=== PATIENT | male | born 1955 | race Caucasian/White ===

== ENCOUNTER 2017-09-28 05:32 | Outpatient (CLI) | payer OTHER ==
[~2017-09-28] VITALS: Ht 167.6 cm; Wt 99.8 kg
[~2017-09-28 05:32] MED LIST: AMLO2.5T PO; ASPI-586 PO; CIPR500T4 PO; CYCL10TA9 PO; FEXO-104 PO; GABA-488 PO; GARL400T13 PO; OMEG1CAP51 PO; OXYC-12 PO; PHEN-639 PO; QUIN1TAB17 PO; SILV25CR TP; SULF1TAB35 PO; TAMS0.4C2 PO; VITA1CAP59 PO; VITA1TAB16 PO; [UNRECOGNIZED DRUG - OTHER] PO
[2017-09-28] MEDS ORDERED: MELO15TA39 PO (16:22)
[2017-09-28] MEDS ORDERED: OMEG1CAP57 PO (16:22)
[2017-09-28] MEDS ORDERED: CHOL500049 PO (16:22)
[2017-09-28] MEDS ORDERED: FENO134C PO (16:22)
[2017-09-28] MEDS ORDERED: QUIN20TA16 PO (16:22)
[2017-09-28] MEDS ORDERED: GARL400T5 PO (16:22)
== END 2017-09-28 16:24 ==
LOC: PREOP 05:32
PROVIDERS: ATTEND Surgery
DX: Z01.818 Encounter for other preprocedural examination (principal); Z86.010 Personal history of colon polyps

== ENCOUNTER 2017-10-03 11:03 | Day surgery (SDC) | payer OTHER ==
[~2017-10-03] VITALS: Ht 167.6 cm; Wt 99.8 kg
[~2017-10-03 11:03] MED LIST changes: +CHOL500049 PO; +FENO134C PO; +GARL400T5 PO; +MELO15TA39 PO; +OMEG1CAP57 PO; +QUIN20TA16 PO
[2017-10-03 11:15] VITALS: BP 130/81
--- NOTE | 2017-10-03 12:52 | Progress Note-Pre Operative ---
Pre-Operative Progress Note H&P Reviewed The H&P was reviewed, patient examined and no changes noted. Time Seen by Provider: 12:41 Date H&P Reviewed: Oct 03, 2017 Time H&P Reviewed: 12:46 Pre-Operative Diagnosis: Screening Colonoscopy, Abdominal pain KIERAN ALCANTAR DO Oct 03, 2017 12:52
[2017-10-03] MEDS ORDERED: PROPOFOL INJECTION 50 ML IV ONE (12:56)
[2017-10-03] MEDS ORDERED: MIDAZOLAM 2 MG/2 ML (VERSED) VIAL ONE (12:56)
[2017-10-03] MEDS ORDERED: LACTATED RINGERS 1,000 ML IV ONE (13:27)
[2017-10-03] MEDS ORDERED: proPOfol 200 MG/20 ML (DIPRIVAN) VIAL IV ONE (13:48)
[2017-10-03] MEDS ORDERED: BENZOCAINE 20% SPRAY (HURRICANE) 60 ML CAN MT PRN (14:00)
--- NOTE | 2017-10-03 14:05 | Progress Note-Post Operative ---
Post-Operative Progess Note Surgeon (s)/Director Of Enterprise Strategy (s) Surgeon KIERAN ALCANTAR DO Director Of Enterprise Strategy: Michele Serrano MS III Pre-Operative Diagnosis Screening Colonoscopy, Abdominal pain Post-Operative Diagnosis Cecal Colitis Cecal Polyps Diverticula Internal hemorrhoids Procedure & Operative Findings Date of Procedure 10/03/17 Procedure Performed/Findings Colon with snare Colon with cold bx Anesthesia Type IV Sedation by MILL WASHER Estimated Blood Loss Estimated blood loss (mL): scant Specimens/Packing Specimens Removed Cecal polyp x 2 Cecal bx KIERAN ALCANTAR DO Oct 03, 2017 14:05
--- NOTE | 2017-10-03 14:07 | Endoscopy Discharge Instruct ---
Endo Procedure/Findings Findings 1.: Polyp 2.: Colitis 3.: Diverticulosis 4.: Internal Hemorrhoids Discharge Instructions - Activity: You might feel a little sleepy until tomorrow. This is due to the medicine you received to relax you. Until tomorrow, you should: NOT drive a car, operate machinery or power tools. NOT drink any alcoholic beverages. NOT make any important decisions or sign importortant papers. Do not return to work until tomorrow, unless otherwise instructed. Resume previous activities tomorrow. Diet: Start by taking liquids. If you tolerate liquids, advance to solid food. Make appointment for 1 week. Notify Physician - If you experience excessive bleeding, unusual abdominal pain, fever, or chest pain, contact your doctor immediately. Follow-Up: - I have received and understand the above instructions and will call my doctor if I have any further questions. Patient Signature Date Nurse Signature Other (Relationship) KIERAN ALCANTAR DO Oct 03, 2017 14:07
[2017-10-03 14:30] VITALS: BP 88/55
[2017-10-03 14:55] VITALS: BP 120/77
[2017-10-03 15:06] VITALS: BP 120/77
--- NOTE | 2017-10-03 23:44 | OPERATIVE REPORT ---
DATE OF SERVICE: PREOPERATIVE DIAGNOSES: Abdominal pain, screening colonoscopy. POSTOPERATIVE DIAGNOSES: 1. Colon polyps. 2. Colitis. 3. Diverticula. 4. Internal hemorrhoids. PROCEDURES: 1. Colonoscopy and snare polypectomy. 2. Colonoscopy with cold biopsy. SURGEON: Toby Conley DO. PHYSICIAN COMPENSATION ANALYST: Medical student, [employer]. ANESTHESIA: IV sedation by the DEMAND EQUIPMENT REPAIRER. SPECIMEN: Two polyps taken from the cecum and then biopsies of cecal inflammation, also 2 biopsies. BLOOD LOSS: Scant. FLUIDS: Per anesthesia. POSTOPERATIVE CONDITION: Stable. INDICATION FOR PROCEDURE: The patient is a 62-year-old male who has history of colon polyps. Needed screening colonoscopy, also family history of colon cancer, and in addition, he has a history of diverticulosis and he has also been having some abdominal pain. FINDINGS: The patient had 2 polyps in the cecum, also had some colitis in the cecum as well as diverticula throughout the colon including the ascending colon, transverse colon and descending colon as well as sigmoid and he had some very minimal internal hemorrhoids. PROCEDURE NOTE: After informed consent was obtained, the patient was brought to the endoscopy suite and placed and laid in the left lateral decubitus position. He was administered IV sedation. During the case, his vitals were monitored for the entire time by the DEMAND EQUIPMENT REPAIRER. The scope was inserted, pushed all the way into about 150 cm, able to get to the cecum. Took a picture of the appendiceal orifice, noted the ileocecal valve and then saw 2 polyps in the cecum. Elected to do a snare polypectomy of these and able to get them both off the cecum. Also looked a little bit red and cleared off some liquid fecal material and then still looked a little bit red, so elected to do 2 biopsies in the cecum. Once this was done, then slowly withdrew the scope insufflating to look circumferentially at the dela cruz, looking at the cecum, up the ascending colon saw a few diverticula throughout here to the hepatic flexure and then down the transverse colon, again saw another couple of diverticula to the splenic flexure and then down the descending colon into the sigmoid colon. Also saw diverticula throughout here then down into the rectum, retroflexed in the rectal vault, saw some very minimal internal hemorrhoids, may be grade I and then removed the scope. The patient tolerated the procedure and he was recovered in the endoscopy suite. Job ID: [id number] DocumentID: [id number] Dictated Date: 10/03/2017 14:12:08 Lime Puller Date: 10/03/2017 23:43:01 Dictated By: TOBY CONLEY DO
--- OUTSIDE RECORDS SUMMARY | 2017-10-04 18:49 | XMS REPORT | Clinical Summary ---
Author Author [facility] Organization [facility] Address Unknown Phone Unavailable Care Team Providers Care Trimmer Buffing Wheel Name Role Phone PCP Unavailable Source Comments Some departments are not documenting in the electronic medical record. If you do not see the information that you expected, contact Release of Information in the Health Information Management department at [phone] for further assistance in locating additional records.[facility] Allergies Not on File Current Medications Not on file Active Problems Not on file Immunizations Name Dates Previously Given Next Due DT Vaccine 03/17/2011 Social History Tobacco Use Types Packs/Day Years Used Date Never Assessed Sex Assigned at Date Recorded Not on file Last Filed Vital Signs Not on file Plan of Treatment Health Maintenance Due Date Last Done Comments HEPATITIS C SCREENING 1955 PHYSICAL (COMPREHENSIVE) 1962 EXAM PERTUSSIS VACCINE 1966 COLORECTAL CANCER 2005 SCREENING SHINGLES VACCINE 2015 INFLUENZA VACCINE 04/24/2017 TETANUS VACCINE 03/17/2021 03/17/2011 Results Not on filefrom Last 3 Months
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
== END 2017-10-03 15:00 | disposition home or self-care (01) ==
LOC: ENDO 11:03
PROVIDERS: ATTEND Surgery
DX: Z12.11 Encounter for screening for malignant neoplasm of colon (principal); D12.0 Benign neoplasm of cecum; K63.5 Polyp of colon; K52.9 Noninfective gastroenteritis and colitis, unspecified; K57.30 Diverticulosis of large intestine without perforation or abscess without bleeding; K64.8 Other hemorrhoids; Z80.0 Family history of malignant neoplasm of digestive organs; I10 Essential (primary) hypertension; Z87.891 Personal history of nicotine dependence; L29.0 Pruritus ani

== ENCOUNTER → 2017-12-03 | Outpatient (CLI) | payer OTHER | LOC: CARD 11:24 | PROVIDERS: ATTEND Nurse Practitioner Family | DX: R07.9 Chest pain, unspecified (principal) | CPT/HCPCS: 93005 ==

== ENCOUNTER → 2018-02-12 | Outpatient (CLI) | payer OTHER ==
--- NOTE | 2018-02-12 16:22 | Diagnostic Imaging Report ---
INDICATION: Pain on the medial aspect of the right knee. TIME OF EXAMINATION: 4:26 PM. TECHNIQUE: Three views of the right knee were obtained. FINDINGS: There is mild medial compartmental joint space narrowing. The articular surfaces are smooth. The lateral and patellofemoral compartments are intact. No fracture, dislocation, or effusion is detected. IMPRESSION: Mild medial compartmental degenerative change. Dictated by: Dictated on workstation # [id number]
== END ==
LOC: RAD 15:54
PROVIDERS: ATTEND Nurse Practitioner Family
DX: M17.11 Unilateral primary osteoarthritis, right knee (principal)
CPT/HCPCS: 73562

== ENCOUNTER → 2018-10-21 | Outpatient (CLI) | payer OTHER ==
--- NOTE | 2018-10-21 11:24 | Diagnostic Imaging Report ---
CT low-dose lung cancer screening. INDICATION: 36-year smoking history. Routine images using the low-dose lung cancer screening protocol were utilized. The previous CT chest exam of 02/07/2010 fail to show any sign of an acute cardiopulmonary abnormality or of a parenchymal lung nodule. On this exam, there is a 2.6 MM noncalcified nodule in the right midlung anteriorly (image 124 of 206). In retrospect this may have been present on the prior exam (image 31 of 70). There is also a roughly 3 CM calcified granuloma in the left lung base. This was not evident on the previous exam. This finding has a generally benign appearance. No other parenchymal mass is identified. There is no sign of failure, pneumonia or pleural effusion to indicate an acute abnormality. The heart size is within normal limits. There are coronary artery calcifications evident. The aorta is not abnormally dilated. There is no obvious mediastinal or hilar adenopathy. The sections through the upper abdomen fail to show any sign of acute abnormality. The previous exam did note a 1.8 x 1.0 CM nodule associated with the left adrenal gland. That finding is again visualized and does not appear to have changed significantly. The bone windows show no sign of fracture or destructive lesion. There are prominent osteophytes along the ventral aspect of the lower thoracic spine. IMPRESSION: 1. There is a small noncalcified nodule in the right upper lobe. This is of uncertain etiology although most likely benign. A followup low-dose lung cancer screening exam in one year would be recommended for continued evaluation. 2. There is no other mass identified and there is no sign of an acute cardiopulmonary abnormality. 3. There is coronary artery disease. 4. The left adrenal nodule seen previously appear stable and is most likely benign. 2A - Benign appearance or behavior. Solid nodule(s): <6mm OR new <4mm. Continue annual screening with LDCT in 12 months. Dictated by: Dictated on workstation # [id number]
== END ==
LOC: RAD 09:29
PROVIDERS: ATTEND Nurse Practitioner Family
DX: Z12.2 Encounter for screening for malignant neoplasm of respiratory organs (principal); I25.10 Atherosclerotic heart disease of native coronary artery without angina pectoris; E27.8 Other specified disorders of adrenal gland; R91.1 Solitary pulmonary nodule; Z87.891 Personal history of nicotine dependence

== ENCOUNTER → 2018-12-18 | Outpatient (CLI) | payer OTHER ==
[~2018-12-18] VITALS: Ht 167.6 cm; Wt 99.8 kg
[~2018-12-18] MED LIST changes: +ACET325T38 PO; +CHOL200014 PO; +GARL400T14 PO; -GARL400T5 PO; +GBPN600T PO; +PANT40TA3 PO; +QUIN40TA14 PO; +TAMS0.4C98 PO; +TRAM50TA2 PO
== END | disposition home or self-care (01) ==
LOC: PREOP 12-16 06:13
PROVIDERS: ATTEND Surgery
DX: Z01.818 Encounter for other preprocedural examination (principal)

== ENCOUNTER 2018-12-23 09:28 | Day surgery (SDC) | payer OTHER ==
[~2018-12-23] VITALS: Ht 167.6 cm; Wt 99.8 kg
--- OUTSIDE RECORDS SUMMARY | 2018-12-23 09:32 | XMS REPORT | Clinical Summary ---
Author Author [facility] Organization [facility] Address Unknown Phone Unavailable Care Team Providers Care Mercantile Reporter Name Role Phone Meghan Nance DO PCP Source Comments Some departments are not documenting in the electronic medical record. If you do not see the information that you expected, contact Release of Information in the Health Information Management department at [phone] for further assistance in locating additional records.[facility] Allergies Not on File Medications Not on file Active Problems Not on file Immunizations Name Dates Previously Given Next Due DT Vaccine 03/17/2011 Social History Date Tobacco Use Types Packs/Day Years Used Never Assessed Sex Assigned at Date Recorded Not on file Industry Job Start Date Occupation Not on file Not on file Not on file Travel End Travel History Travel Start No recent travel history available. Last Filed Vital Signs Not on file Plan of Treatment Health Maintenance Due Date Last Done Comments HEPATITIS C SCREENING 1955 PHYSICAL (COMPREHENSIVE) 1962 EXAM HIV SCREENING 1970 COLORECTAL CANCER 2005 SCREENING SHINGLES RECOMBINANT 2005 VACCINE (1 of 2) INFLUENZA VACCINE 04/24/2018 DTAP/TDAP VACCINES (2 - 03/17/2021 03/17/2011 Tdap) Results Not on filefrom Last 3 Months
--- OUTSIDE RECORDS SUMMARY | 2018-12-23 09:35 | XMS REPORT | Continuity of Care Document ---
Author Author [facility] Organization [facility] Address Unknown Phone Unavailable Allergies Active Description Code Type Severity Reaction Onset Reported/Identified Relationship to Patient Clinical Status Yes Penicillins [id number] Drug Allergy Unknown N/A 12/17/2018 Medications There is no data. Problems Date Dx Coded Attending Type Code Diagnosis Diagnosed By 02/11/2010 Ot 401.9 HYPERTENSION NOS 02/11/2010 Ot 550.90 UNILAT INGUINAL HERNIA 02/11/2010 Ot 571.8 CHRONIC LIVER DIS NEC 02/11/2010 Ot 714.0 RHEUMATOID ARTHRITIS 02/11/2010 Ot 780.60 FEVER, UNSPECIFIED 02/11/2010 Ot 789.2 SPLENOMEGALY 03/16/2011 Ot 944.24 2 DEG BURN FINGR [...] 09/23/2014 SORTO DO, LISSETTE Ot 788.41 09/23/2014 PAULYNDER DOSAPNA S Ot 724.1 09/23/2014 HITESHER DOSAPNA S Ot 786.50 09/23/2014 Ot 272.0 09/23/2014 [...] 09/23/2014 SORTO DO, LISSETTE Ot V82.89 09/23/2014 LISSETTE SORTO DO Ot 257.2 09/23/2014 LISSETTE SORTO DO Ot 716.90 09/23/2014 LISSETTE SORTO DO Ot 788.41 09/23/2014 SAPNA LIVE DO Ot 724.1 09/23/2014 SAPNA LIVE DO Ot 786.50 09/28/2014 RAJ CARDENAS MD Ot [...] SORTO DOI Ot 272.0 PURE HYPERCHOLESTEROLEM 08/02/2016 LISSETTE SORTO DO Ot 272.1 PURE HYPERGLYCERIDEMIA 08/02/2016 LISSETTE SORTO DO Ot 401.1 BENIGN HYPERTENSION 08/02/2016 DOMINIQUE SORTO DOI Ot 571.8 CHRONIC LIVER DIS NEC 08/02/2016 LISSETTE SORTO DO Ot 715.90 OSTEOARTHROS NOS-UNSPEC 08/02/2016 LISSETTE SORTO DO Ot 790.4 ELEV TRANSAMINASE/LDH 08/02/2016 LISSETTE SORTO DO Ot V18.0 FAM HX-DIABETES MELLITUS 08/02/2016 LISSETTE SORTO DO Ot V82.89 SCREEN FOR OTH SPECIF CONDITIONS 08/02/2016 LISSETTE SORTO DO Ot 257.2 TESTICULAR HYPOFUNC NEC 08/02/2016 NOREEN MARIE LISSETTE Ot 716.90 ARTHROPATHY NOS-UNSPEC 08/02/2016 DOMINIQUE SORTO DOI Ot 788.41 URINARY FREQUENCY 08/02/2016 SAPNA LIVE DO Ot 724.1 PAIN IN THORACIC SPINE 08/02/2016 SAPNA LIVE DO Ot 786.50 CHEST PAIN NOS 08/03/2016 Ot 571.8 CHRONIC LIVER DIS NEC 08/03/2016 Ot 789.04 ABDOMINAL PAIN, LEFT LOWER QUADRANT 08/03/2016 Ot V72.84 EXAM PRE- OPERATIVE NOS 08/03/2016 LISSETTE SORTO DO Ot 227.0 BENIGN NEOPLASM ADRENAL 08/03/2016 LISSETTE SORTO DO Ot 272.0 PURE HYPERCHOLESTEROLEM 08/03/2016 LISSETTE SORTO DO Ot 272.1 PURE HYPERGLYCERIDEMIA 08/03/2016 DOMINIQUE SORTO DOI Ot 401.1 BENIGN HYPERTENSION 08/03/2016 LISSETTE SORTO DO Ot 571.8 CHRONIC LIVER DIS NEC 08/03/2016 LISSETTE SORTO DO Ot 715.90 OSTEOARTHROS NOS-UNSPEC 08/03/2016 LISSETTE SORTO DO Ot 790.4 ELEV TRANSAMINASE/LDH 08/03/2016 LISSETTE SORTO DO Ot V18.0 FAM HX-DIABETES MELLITUS 08/03/2016 LISSETTE SORTO DO Ot V82.89 SCREEN FOR OTH SPECIF CONDITIONS 08/03/2016 LISSETTE SORTO DO Ot 257.2 TESTICULAR HYPOFUNC NEC 08/03/2016 LISSETTE SORTO DO Ot 716.90 ARTHROPATHY NOS-UNSPEC 08/03/2016 LISSETTE SORTO DO Ot 788.41 URINARY FREQUENCY 08/03/2016 SAPNA LIVE DO Ot 724.1 PAIN IN THORACIC SPINE 08/03/2016 SAPNA LIVE DO Ot 786.50 CHEST PAIN NOS 08/03/2016 SAPNA LIVE DO Ot E27.9 DISORDER OF ADRENAL GLAND, UNSPECIFIED 09/28/2017 KIERAN ALCANTAR DO Ot Z01.818 ENCOUNTER FOR OTHER PREPROCEDURAL EXAMIN 09/28/2017 KIERAN ALCANTAR DO Ot Z86.010 PERSONAL HISTORY OF COLONIC POLYPS 10/01/2017 KIERAN ALCANTAR DO Ot Z01.818 ENCOUNTER FOR OTHER PREPROCEDURAL EXAMIN 10/01/2017 KIERAN ALCANTAR DO Ot Z86.010 PERSONAL HISTORY OF COLONIC POLYPS 10/03/2017 KIERAN ALCANTAR DO Ot D12.0 BENIGN NEOPLASM OF CECUM 10/03/2017 DELMAN DO, KIERAN B Ot I10 ESSENTIAL (PRIMARY) HYPERTENSION 10/03/2017 ORTIZ MARIE KIERAN B Ot K52.9 NONINFECTIVE GASTROENTERITIS AND COLITIS 10/03/2017 ORTIZ MARIE KIERAN B Ot K57.30 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 AB 10/03/2017 ORTIZ MARIE KIERAN B Ot K63.5 POLYP OF COLON 10/03/2017 ORTIZ MARIE KIERAN B Ot K64.8 OTHER HEMORRHOIDS 10/03/2017 ORTIZ MARIE KIERAN B Ot L29.0 PRURITUS ANI 10/03/2017 ORTIZ MARIE KIERAN B Ot Z12.11 ENCOUNTER FOR SCREENING FOR MALIGNANT NE 10/03/2017 ORTIZ MARIE KIERAN B Ot Z80.0 FAMILY HISTORY OF MALIGNANT NEOPLASM OF 10/03/2017 EDVIN ALCANTAR DOIC B Ot Z87.891 PERSONAL HISTORY OF NICOTINE DEPENDENCE 10/08/2017 ORTIZ MARIE KIERAN B Ot D12.0 BENIGN NEOPLASM OF CECUM 10/08/2017 ORTIZ MARIE KIERAN B Ot I10 ESSENTIAL (PRIMARY) HYPERTENSION 10/08/2017 ORTIZ MARIE KIERAN B Ot K52.9 NONINFECTIVE GASTROENTERITIS AND COLITIS 10/08/2017 ORTIZ MARIE KIERAN B Ot K57.30 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 AB 10/08/2017 EDVIN ALCANTAR DOIC B Ot K63.5 POLYP OF COLON 10/08/2017 ORTIZ MARIE KIERAN B Ot K64.8 OTHER HEMORRHOIDS 10/08/2017 ORTIZ MARIE KIERAN B Ot L29.0 PRURITUS ANI 10/08/2017 ORTIZ MARIE KIERAN B Ot Z12.11 ENCOUNTER FOR SCREENING FOR MALIGNANT NE 10/08/2017 ORTIZ MARIE KIERAN B Ot Z80.0 FAMILY HISTORY OF MALIGNANT NEOPLASM OF 10/08/2017 ORTIZ MARIE KIERAN B Ot Z87.891 PERSONAL HISTORY OF NICOTINE DEPENDENCE 10/09/2017 ORTIZ MARIE KIERAN B Ot D12.0 BENIGN NEOPLASM OF CECUM 10/09/2017 ORTIZ MARIE KIERAN B Ot I10 ESSENTIAL (PRIMARY) HYPERTENSION 10/09/2017 ORTIZ DO KIERAN B Ot K52.9 NONINFECTIVE GASTROENTERITIS AND COLITIS 10/09/2017 ORTIZ MARIE KIERAN B Ot K57.30 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 AB 10/09/2017 ORTIZ KIERAN MARIE Ot K63.5 POLYP OF COLON 10/09/2017 REILLYJOAQUINA KIERAN MARIE Ot K64.8 OTHER HEMORRHOIDS 10/09/2017 ORTIZ KIERAN MARIE Ot L29.0 PRURITUS ANI 10/09/2017 ORTIZ MARIEKIERAN Ot Z12.11 ENCOUNTER FOR SCREENING FOR MALIGNANT NE 10/09/2017 ORTIZ KIERAN MARIE Ot Z80.0 FAMILY HISTORY OF MALIGNANT NEOPLASM OF 10/09/2017 ORTIZ MARIEKIERAN Ot Z87.891 PERSONAL HISTORY OF NICOTINE DEPENDENCE 01/02/2018 JOSE MICHAEL TRENCH DIGGING MACHINE OPERATOR Ot R07.9 CHEST PAIN, UNSPECIFIED 02/13/2018 JOSE MICHAEL TRENCH DIGGING MACHINE OPERATOR Ot M17.11 UNILATERAL PRIMARY OSTEOARTHRITIS, RIGHT 02/13/2018 JOSE MICHAEL TRENCH DIGGING MACHINE OPERATOR Ot M17.11 UNILATERAL PRIMARY OSTEOARTHRITIS, RIGHT 2018 JOSE MICHAEL TRENCH DIGGING MACHINE OPERATOR Ot M17.11 UNILATERAL PRIMARY OSTEOARTHRITIS, RIGHT 03/15/2018 JOSE MICHAEL TRENCH DIGGING MACHINE OPERATOR Ot R07.9 CHEST PAIN, UNSPECIFIED 07/23/2018 Ot 789.00 07/23/2018 Ot 790.4 07/23/2018 Ot 246.9 07/23/2018 Ot 255.9 07/23/2018 Ot 289.0 07/23/2018 Ot 571.8 07/23/2018 Ot 608.89 07/23/2018 Ot 272.0 PURE HYPERCHOLESTEROLEM 07/23/2018 Ot 401.1 BENIGN HYPERTENSION 07/23/2018 Ot 790.6 ABN BLOOD CHEMISTRY NEC 07/23/2018 Ot V18.0 FAM HX- DIABETES MELLITUS 07/23/2018 Ot 550.90 UNILAT INGUINAL HERNIA 07/23/2018 Ot V72.83 EXAM PRE- OPERATIVE NEC 07/23/2018 Ot V74.8 SCREEN- BACTERIAL DIS NEC 07/23/2018 Ot 550.90 UNILAT INGUINAL HERNIA 07/23/2018 Ot 272.0 PURE HYPERCHOLESTEROLEM 07/23/2018 Ot 790.29 OTHER ABNORMAL GLUCOSE 07/23/2018 Ot 794.5 ABN THYROID FUNCT STUDY 07/23/2018 Ot 571.8 CHRONIC LIVER DIS NEC 07/23/2018 Ot 789.04 ABDOMINAL PAIN, LEFT LOWER QUADRANT 07/23/2018 SORTO DO, LISSETTE Ot 227.0 BENIGN NEOPLASM ADRENAL 07/23/2018 SORTO DO, LISSETTE Ot 272.0 PURE HYPERCHOLESTEROLEM 07/23/2018 SORTO DO, LISSETTE Ot 272.1 PURE HYPERGLYCERIDEMIA 07/23/2018 SORTO DO, LISSETTE Ot 401.1 BENIGN HYPERTENSION 07/23/2018 SORTO DO, LISSETTE Ot 571.8 CHRONIC LIVER DIS NEC 07/23/2018 SORTO DO, LISSETTE Ot 715.90 OSTEOARTHROS NOS-UNSPEC 07/23/2018 SORTO DO, LISSETTE Ot 790.4 ELEV TRANSAMINASE/LDH 07/23/2018 SORTO DO, LISSETTE Ot V18.0 FAM HX-DIABETES MELLITUS 07/23/2018 SORTO DO, LISSETTE Ot V82.89 SCREEN FOR OTH SPECIF CONDITIONS 07/23/2018 SORTO DO, LISSETTE Ot 257.2 TESTICULAR HYPOFUNC NEC 07/23/2018 SORTO DO, LISSETTE Ot 716.90 ARTHROPATHY NOS-UNSPEC 07/23/2018 NOREEN MARIE, LISSETTE Ot 788.41 URINARY FREQUENCY 07/23/2018 SAPNA LIVE DO S Ot 724.1 PAIN IN THORACIC SPINE 07/23/2018 SAPNA LIVE DO S Ot 786.50 CHEST PAIN NOS 07/23/2018 SAPNA LIVE DO S Ot E27.9 DISORDER OF ADRENAL GLAND, UNSPECIFIED 07/23/2018 ALEC, JOSE R TRENCH DIGGING MACHINE OPERATOR Ot R07.9 CHEST PAIN, UNSPECIFIED 07/23/2018 ALEC, JOSE R TRENCH DIGGING MACHINE OPERATOR Ot M17.11 UNILATERAL PRIMARY OSTEOARTHRITIS, RIGHT 10/10/2018 ALEC, JOSE R TRENCH DIGGING MACHINE OPERATOR Ot R07.9 CHEST PAIN, UNSPECIFIED 10/10/2018 ALEC, JOSE R TRENCH DIGGING MACHINE OPERATOR Ot M17.11 UNILATERAL PRIMARY OSTEOARTHRITIS, RIGHT 10/17/2018 ALEC, JOSE R TRENCH DIGGING MACHINE OPERATOR Ot R07.9 CHEST PAIN, UNSPECIFIED 10/17/2018 ALEC, JOSE R TRENCH DIGGING MACHINE OPERATOR Ot M17.11 UNILATERAL PRIMARY OSTEOARTHRITIS, RIGHT 10/22/2018 ALEC, JOSE R TRENCH DIGGING MACHINE OPERATOR Ot E27.8 OTHER SPECIFIED DISORDERS OF ADRENAL GLA 10/22/2018 ALEC, JOSE R TRENCH DIGGING MACHINE OPERATOR Ot I25.10 ATHSCL HEART DISEASE OF [place] CORONARY 10/22/2018 PETER MICHAELON R TRENCH DIGGING MACHINE OPERATOR Ot R91.1 SOLITARY PULMONARY NODULE 10/22/2018 JOSE MICHAEL TRENCH DIGGING MACHINE OPERATOR Ot Z12.2 ENCNTR SCREEN FOR MALIGNANT NEOPLASM OF 10/22/2018 JOSE MICHAEL R TRENCH DIGGING MACHINE OPERATOR Ot Z87.891 PERSONAL HISTORY OF NICOTINE DEPENDENCE 11/13/2018 PETER MICHAELON R TRENCH DIGGING MACHINE OPERATOR Ot E27.8 OTHER SPECIFIED DISORDERS OF ADRENAL GLA 11/13/2018 JOSE MICHAEL R TRENCH DIGGING MACHINE OPERATOR Ot I25.10 ATHSCL HEART DISEASE OF [place] CORONARY 11/13/2018 JOSE MICHAEL R TRENCH DIGGING MACHINE OPERATOR Ot R91.1 SOLITARY PULMONARY NODULE 11/13/2018 JOSE MICHAEL TRENCH DIGGING MACHINE OPERATOR Ot Z12.2 ENCNTR SCREEN FOR MALIGNANT NEOPLASM OF 11/13/2018 PETER MICHAELON R TRENCH DIGGING MACHINE OPERATOR Ot Z87.891 PERSONAL HISTORY OF NICOTINE DEPENDENCE 12/17/2018 KIERAN ALCANTAR DO Ot Z01.818 ENCOUNTER FOR OTHER PREPROCEDURAL EXAMIN 12/17/2018 KIERAN ALCANTAR DO Ot Z01.818 ENCOUNTER FOR OTHER PREPROCEDURAL EXAMIN 12/17/2018 KIERAN ALCANTAR DO Ot Z01.818 ENCOUNTER FOR OTHER PREPROCEDURAL EXAMIN 12/20/2018 KIERAN ALCANTAR DO Ot Z01.818 ENCOUNTER FOR OTHER PREPROCEDURAL EXAMIN Procedures Code Description Performed By Performed On 33.24 ENDOSCOPIC BRONCHIAL BX 02/10/2010 Results Test Result Range Lab Card - 06/25/18 16:24 LabCard Specimen submitted to [facility] for Testing. Encounters ACCT No. Visit Date/Time Discharge Status Pt. Type Provider Facility Loc./Unit Complaint [id number] 12/18/2018 14:00:00 12/18/2018 23:59:59 [facility] Outpatient KIERAN ALCANTAR DO [facility] PREOP EGD [id number] 10/21/2018 09:29:00 10/21/2018 23:59:59 CLS Outpatient ALEC JOSESILVINO Helm APRN [facility] RAD SCREENING [id number] 02/12/2018 15:54:00 02/12/2018 23:59:59 CLS Outpatient JOSE MICHAEL TRENCH DIGGING MACHINE OPERATOR [facility] RAD RIGHT KNEE PAIN [id number] 12/03/2017 11:24:00 12/03/2017 23:59:59 CLS Outpatient JOSE MICHAEL TRENCH DIGGING MACHINE OPERATOR [facility] CARD CHEST PAIN [id number] 10/03/2017 11:03:00 10/03/2017 15:00:00 DIS Outpatient KIERAN ALCANTAR DO [facility] ENDO HX OF DIVERTICULITIS, HX COLON POLYPS, HX FM COLON [id number] 09/28/2017 05:32:00 09/28/2017 16:24:00 DIS Outpatient KIERAN ALCANTAR DO [facility] PREOP COLONOSCOPY/EGD [id number] 08/02/2016 13:15:00 08/02/2016 23:59:59 CLS Outpatient SAPNA LIVE DO [facility] RAD LT ADRENAL MASS F/ U [id number] 11/07/2015 14:58:00 11/07/2015 17:14:00 DIS Emergency UDAY VERÓNICA Resendez [facility] ER DIFFICULTY URINATING [id number] 09/28/2014 12:25:00 09/28/2014 15:57:00 DIS Outpatient RAJ CARDENAS MD [facility] CARD THORACIC SPONDYLOSIS [id number] 08/13/2014 14:53:00 08/13/2014 23:59:59 CLS Outpatient SAPNA LIVE DO S [facility] RAD PAIN RIBS/LUNG [id number] 07/08/2014 16:52:00 07/08/2014 23:59:59 CLS Outpatient SAPNA LIVE DO S [facility] RAD THORAIC BACK PAIN [id number] 01/17/2014 08:46:00 01/17/2014 23:59:59 CLS Outpatient LISSETTE SORTO DO [facility] LAB URINARY FREQUENCY TESTOSTERONE DEFICIENCY ARTHRITI [id number] 01/10/2014 08:49:00 01/10/2014 23:59:59 CLS Outpatient LISSETTE SORTO DO [facility] LAB OSTEOARTHRITIS BENIGN NEOPLASM OF ADRENAL GLAND [id number] 12/23/2018 10:00:00 PEN Preadmit KIERAN ALCANTAR DO [facility] ENDO CHRONIC GASTRITIS [id number] 07/23/2018 01:19:00 Document Registration [id number] 12/19/2012 06:46:00 Document Registration [id number] 12/18/2012 08:10:00 Document Registration [id number] 12/09/2012 15:00:00 Document Registration [id number] 03/16/2011 19:01:00 Document Registration [id number] 05/11/2010 14:56:00 Document Registration [id number] 03/04/2010 05:38:00 Document Registration [id number] 03/01/2010 14:53:00 Document Registration [id number] 02/07/2010 15:12:00 Document Registration [id number] 02/01/2010 14:54:00 Document Registration [id number] 12/18/2008 15:00:00 Document Registration [id number] 01/09/2008 06:36:00 Document Registration [id number] 06/19/2007 13:23:00 Document Registration 03/14/16 12/18/2018 23:12:12 12/18/2018 23:59:59 CLS Outpatient Sapna Live [id number] 09/28/2014 12:28:08 ACT Document Registration [id number] 06/25/2018 16:12:00 06/25/2018 23:59:00 DIS Outpatient Sapna Live
[2018-12-23] MEDS ORDERED: LACTATED RINGERS 1,000 ML IV ONE ×3 (09:38→11:45)
[2018-12-23] MEDS ORDERED: LACTATED RINGERS 1,000 ML IV STA (09:38)
[2018-12-23 09:45] VITALS: BP 134/88
[2018-12-23] MEDS ORDERED: HURRICAINE EXT TUBE (BENZOCAINE) XX PRN (09:45)
--- NOTE | 2018-12-23 10:17 | Progress Note-Pre Operative ---
Pre-Operative Progress Note H&P Reviewed The H&P was reviewed, patient examined and no changes noted. Time Seen by Provider: 10:13 Date H&P Reviewed: Dec 23, 2018 Time H&P Reviewed: 10:14 Pre-Operative Diagnosis: Chronic Gastritis KIERAN ALCANTAR DO Dec 23, 2018 10:16
[2018-12-23] MEDS ORDERED: MIDAZOLAM 2 MG/2 ML (VERSED) VIAL ONE (10:55)
[2018-12-23] MEDS ORDERED: proPOfol 200 MG/20 ML (DIPRIVAN) VIAL IV ONE (10:55)
[2018-12-23 11:30] VITALS: BP 113/78
[2018-12-23 12:00] VITALS: BP 126/77
--- NOTE | 2018-12-23 12:15 | Progress Note-Post Operative ---
Post-Operative Progess Note Surgeon (s)/Puppet Developer (s) Surgeon KIERAN ALCANTAR DO Puppet Developer: none Pre-Operative Diagnosis Chronic Gastritis Post-Operative Diagnosis Same Hiatal Hernia Procedure & Operative Findings Date of Procedure 12/23/18 Procedure Performed/Findings EGD with bx Anesthesia Type IV sedation by RECORDER HELPER SEISMOGRAPH Estimated Blood Loss Estimated blood loss (mL): scant Specimens/Packing Specimens Removed Antral bx body of stomach bx KIERAN ALCANTAR DO Dec 23, 2018 12:15
--- NOTE | 2018-12-23 13:02 | Endoscopy Discharge Instruct ---
Endo Procedure/Findings Findings 1.: Gastritis Discharge Instructions - Activity: You might feel a little sleepy until tomorrow. This is due to the medicine you received to relax you. Until tomorrow, you should: NOT drive a car, operate machinery or power tools. NOT drink any alcoholic beverages. NOT make any important decisions or sign importortant papers. Do not return to work until tomorrow, unless otherwise instructed. Resume previous activities tomorrow. Diet: Start by taking liquids. If you tolerate liquids, advance to solid food. make an appointment for one week Instructions: 1.: EGD in 1 year Notify Physician - If you experience excessive bleeding, unusual abdominal pain, fever, or chest pain, contact your doctor immediately. Follow-Up: - I have received and understand the above instructions and will call my doctor if I have any further questions. Patient Signature Date Nurse Signature Other (Relationship) KIERAN ALCANTAR DO Dec 23, 2018 13:02
[2018-12-23 13:15] VITALS: BP 126/77
--- NOTE | 2018-12-23 14:34 | Anesthesia-General Post-Op ---
MAC Patient Condition Mental Status/LOC: Same as Preop Cardiovascular: Satisfactory Nausea/Vomiting: Absent Respiratory: Satisfactory Pain: Controlled Complications: Absent Post Op Complications Complications None Follow Up Care/Instructions Patient Instructions None needed. Anesthesiology Discharge Order Discharge Order Patient is doing well, no complaints, stable vital signs, no apparent adverse anesthesia problems. No complications reported per nursing. ANDREI JACKSON CRNA Dec 23, 2018 14:34
--- NOTE | 2018-12-24 05:30 | OPERATIVE REPORT ---
DATE OF SERVICE: PREOPERATIVE DIAGNOSIS: Gastritis. POSTOPERATIVE DIAGNOSES: Gastritis and hiatal hernia. PROCEDURE: EGD with biopsy. SURGEON: Toby Conley DO. GEOTECHNICAL ENGINEERING TECHNICIAN: None. ANESTHESIA: IV sedation by the INFRASTRUCTURE ARCHITECT. SPECIMEN: Biopsy from the antrum. BLOOD LOSS: Scant. FLUIDS: Per anesthesia. POSTOPERATIVE CONDITION: Stable. INDICATION FOR PROCEDURE: The patient is a 63-year-old male who has been having some trouble swallowing and had some gastritis and needed a workup. FINDINGS: The patient had some mild gastritis. He had a hiatal hernia, but no other obvious pathology, no strictures in the esophagus. PROCEDURE NOTE: After informed consent was obtained, the patient was brought to the endoscopy suite, placed in the bed left lateral decubitus position. He was administered IV sedation by the INFRASTRUCTURE ARCHITECT who then monitored his vitals the entire time, heart rate, blood pressure and pulse ox and the scope was inserted down the mouth through the esophagus into the stomach. Upon entering the stomach, there was some gastritis, pushed down to the antrum, took a picture. Pushed through the small intestine, duodenum looked fine, pulled back into the antrum, did a biopsy of the antrum and then retroflexed the scope, saw hiatal hernia, took picture of this and then pulled the scope back up to the GE junction, which actually looked okay and so elected not to do a biopsy here. Rest of the esophagus looked okay. No strictures. No other ulcers. Removed the scope up the esophagus and out of the mouth. The patient tolerated the procedure. He has recovered in the endoscopy suite. Job ID: [id number] DocumentID: [id number] Dictated Date: 12/23/2018 18:41:23 Photographer News Date: 12/24/2018 05:29:43 Dictated By: TOBY CONLEY DO
== END 2018-12-23 13:15 | disposition home or self-care (01) ==
LOC: ENDO 09:28
PROVIDERS: ATTEND Surgery
DX: K29.50 Unspecified chronic gastritis without bleeding (principal); K44.9 Diaphragmatic hernia without obstruction or gangrene; K31.89 Other diseases of stomach and duodenum; I10 Essential (primary) hypertension; K21.9 Gastro-esophageal reflux disease without esophagitis; K76.0 Fatty (change of) liver, not elsewhere classified; E66.9 Obesity, unspecified; Z86.010 Personal history of colon polyps; Z87.891 Personal history of nicotine dependence; Z79.899 Other long term (current) drug therapy; Z79.82 Long term (current) use of aspirin; Z88.0 Allergy status to penicillin; Z68.35 Body mass index [BMI] 35.0-35.9, adult

== ENCOUNTER → 2019-01-29 | Outpatient (CLI) | payer OTHER ==
--- NOTE | 2019-01-29 17:37 | Diagnostic Imaging Report ---
PROCEDURE: CT abdomen and pelvis without contrast. TECHNIQUE: Multiple contiguous axial images were obtained through the abdomen and pelvis without the use of intravenous contrast. Auto Exposure Controls were utilized during the CT exam to meet ALARA standards for radiation dose reduction. INDICATION: Left lower quadrant abdominal pain. Left groin pain at the site of the prior hernia. Fever. Night sweats. COMPARISON: 08/02/2016. FINDINGS: The lung bases demonstrate atelectasis. The heart is normal in size. There is coronary atherosclerosis. No pericardial effusion is seen. There is diffuse hepatic steatosis. Cholecystectomy clips are noted. No focal hepatic lesions are seen. The spleen appears normal. The pancreas is normal. The adrenal glands are normal. The kidneys demonstrate no calculi or hydronephrosis. There is a small hiatal hernia. The appendix is normal. There is moderate stool in the colon. There is diverticulosis of the descending and sigmoid colon. There is diverticulitis at the junction of the descending and sigmoid colon. No free air or significant free fluid is seen. There are no pericolonic fluid collections seen on this noncontrast exam. There is calcific atherosclerosis. Small fat-containing inguinal hernias are present. Postsurgical changes from prior left hernia repair are noted. IMPRESSION: 1. Acute diverticulitis of the junction of the descending and sigmoid colon. No free air or pericolonic fluid collection is seen. 2. Small hiatal hernia. 3. Hepatic steatosis. 4. Small fat-containing bilateral inguinal hernias. Dictated by: Dictated on workstation # [id number]
== END ==
LOC: RAD 16:32
PROVIDERS: ATTEND Family Medicine
DX: K57.32 Diverticulitis of large intestine without perforation or abscess without bleeding (principal); K44.9 Diaphragmatic hernia without obstruction or gangrene; K76.0 Fatty (change of) liver, not elsewhere classified; K40.20 Bilateral inguinal hernia, without obstruction or gangrene, not specified as recurrent; Z98.890 Other specified postprocedural states; Z90.49 Acquired absence of other specified parts of digestive tract
CPT/HCPCS: 74176

== ENCOUNTER → 2019-02-22 | Emergency (ER) | payer OTHER ==
[~2019-02-22] VITALS: Ht 170.2 cm; Wt 97.1 kg
[~2019-02-22] MED LIST changes: +ACHD5005 PO; +CIPROFLOXACIN 500 MG (CIPRO) TABLET PO ONE; +CIPROFLOXACIN IV 400MG/200ML 200 ML IV ONE; +KETOROLAC 30 MG/ML VIAL IVP ONE; +L.AC1CAP6 PO; +METR500T PO; +NS IV 1000 ML 1,000 ML IV SCH; +ONDA4TAB11 PO; +ONDANSETRON 4 MG/2 ML (SDV) Z0FRAN IVP ONE; +RX-HYDROCODONE/APAP 5/325 MG #4 TAB PK PO PRN; +RX-ONDANSETRON 4 MG ODT (ZOFRAN) PPK #4 PO STA; +fentaNYL INJECTION 100 MCG/2 ML AMP IVP ONE; +metroNIDAZOLE 500MG/100ML IVPB 100 ML IV ONE
--- NOTE | 2019-02-22 21:43 | NUR ---
pt here with " son". pt alert gcs 15. pt been c/o abd pain since this am. relates 3 weeks ago had " inflamation in my colon". pt also c/o nausea w/o v/d and relates stool today had no blood in it. pt also c/o dyspnea " the pain". no acute sighns of dyspnea noted. lips pale no cyanosis or duskiness noted. lungs cta bilaterally. abd slightly distended bilateral lower quads. tender to palpation bilateral lower quads neg pulsating massess. pt denies chest pain but c/o nonspecific back pain. pain rating 8-9. pt instructed npo. done rozina pt [id number].
--- NOTE | 2019-02-22 22:02 | ED Abdominal Pain ---
General Stated Complaint: ABD PAIN Source of Information: Patient, Family (son) Exam Limitations: No Limitations History of Present Illness Date Seen by Provider: Feb 22, 2019 Time Seen by Provider: 21:42 Initial Comments Patient presents to ER by private conveyance with chief complaint of left lower quadrant abdominal pain starting about 10:00 this morning. He is using tramadol which he typically uses for his back pain with only modest relief of his moderate to severe pain. He has some nausea with no vomiting so far. Has not been having diarrhea or bloody stools. He had diverticulitis 2 weeks ago and was put on 2 rounds of antibiotics from the ER outpatient and significantly improved within about 5 days. He is not having any fevers or chills today. He says this feels exactly like his diverticulitis. He's had a hernia repair in his left inguinal him. He's had his gallbladder out. He's had multiple colonoscopies and EGDs with the last year he had one that was negative EGD with one polyp, the colon. His parents both had colon cancer so he started having colonoscopies at 40 years old. He is followed by Dr. Cruz. Allergies and Home Medications Allergies Coded Allergies: Penicillins (Verified Allergy, Unknown, 12/23/18) Home Medications Acetaminophen 325 Mg Tablet, 650 MG PO PRN, (Reported) Aspirin 81 Mg Tablet.dr, 81 MG PO DAILY, (Reported) Cholecalciferol (Vitamin D3) 2,000 Unit Tablet, 2,000 UNIT PO DAILY, (Reported) Ciprofloxacin HCl 500 Mg Tablet, 500 MG PO BID Prescribed by: AILIN CARDENAS on 02/22/192341 Fenofibrate,Micronized 134 Mg Capsule, 134 MG PO HS, (Reported) Gabapentin 600 Mg Tablet, 600 MG PO HS, (Reported) Hydrocodone Bit/Acetaminophen 1 Tab Tab, 1-2 EACH PO Q6H PRN for PAIN-MODERATE Prescribed by: AILIN CARDENAS on 02/22/192341 L.acidoph & Paracasei,B.lactis 1 Each Capsule, 1 EACH PO BID Prescribed by: AILIN CARDENAS on 02/22/192341 Metronidazole 500 Mg Tablet, 500 MG PO Q8H Prescribed by: AILIN CARDENAS on 02/22/192341 Ondansetron 4 Mg Tab.rapdis, 4 MG PO Q6H PRN for NAUSEA/VOMITING Prescribed by: AILIN CARDENAS on 02/22/19 3569 Pantoprazole Sodium 40 Mg Tablet.dr, 40 MG PO BID, (Reported) Quinapril HCl 40 Mg Tablet, 40 MG PO DAILY, (Reported) Tamsulosin HCl 0.4 Mg Cap, 0.8 MG PO DAILY, (Reported) Tramadol HCl 50 Mg Tablet, 50 MG PO PRN, (Reported) Patient Home Medication List Home Medication List Reviewed: Yes Review of Systems Review of Systems Constitutional: No chills, No diaphoresis EENTM: No Blurred Vision, No Double Vision Respiratory: Denies Cough, Denies Shortness of Air Cardiovascular: Denies Chest Pain, Denies Lightheadedness Gastrointestinal: See HPI, Abdominal Pain; Denies Constipated, Denies Diarrhea; Nausea Genitourinary: Denies Burning, Denies Discharge Musculoskeletal: No back pain, No joint pain Skin: No pruritus, No rash Psychiatric/Neurological: Denies Headache, Denies Numbness, Denies Paresthesia Past [id number] Hx Patient Social History Alcohol Use: Denies Use Recreational Drug Use: No Smoking Status: Never a Smoker Former Smoker, Quit: Sep 28, 1991 2nd Hand Smoke Exposure: No Recent Foreign Travel: No Contact w/Someone Who Travel: No Recent Hopitalizations: No Immunizations Up To Date Tetanus Booster (TDap): Unknown PED Vaccines UTD: No Date of Influenza Vaccine: Jul 01, 2018 Seasonal Allergies Seasonal Allergies: Yes (MILD) Past Medical History Surgeries: Yes (LT TESTICLE REMOVED/TORSION; HEMORRHOID , BROKEN HAND,LEFT INGUINAL HERNIA) Abdominal, Gallbladder, Orthopedic, Testicular Respiratory: No ("BB SIZE SPOT ON LUNG") Cardiac: Yes (cardiomegaly) Hypertension Neurological: No Reproductive Disorders: No Sexually Transmitted Disease: No Gastrointestinal: Yes (fatty liver, CHRONIC GASTRITIS) Gastroesophageal Reflux, Chronic Constipation, Diverticulosis Musculoskeletal: Yes Arthritis, Chronic Back Pain Endocrine: No HEENT: Yes (GLASSES) Loss of Vision: Bilateral Hearing Impairment: Denies 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 0.0oz. [id number]; 35.5 BMI Method:Stated General Appearance: WD/WN, mild distress HEENT: PERRL/EOMI, pharynx normal Respiratory: no respiratory distress, no accessory muscle use Cardiovascular: normal peripheral pulses, regular rate, rhythm, no edema Peripheral Pulses: 2+ Dorsalis Pedis (R), 2+ Left Dors-Pedis (L) Gastrointestinal: normal bowel sounds, soft, no organomegaly, tenderness (suprapubic and left lower quadrant) Extremities: normal range of motion, non-tender, normal inspection, no pedal edema, no calf tenderness, normal capillary refill Neurologic/Psychiatric: alert, normal mood/affect, oriented x 3 Skin: normal color, warm/dry Focused Exam Lactate Level 02/22/19 22:00: Lactic Acid Level 1.78 Lactic Acid Level Laboratory Tests Test 02/22/19 22:00 Lactic Acid Level 1.78 MMOL/L (0.50-2.00) Progress/Results/Core Measures Results/Orders Lab Results Laboratory Tests Test 02/22/19 22:00 02/22/19 22:30 Range/Units White Blood Count 9.0 4.3-11.0 10^3/uL Red Blood Count 4.53 4.35-5.85 10^6/uL Hemoglobin 14.0 13.3-17.7 G/DL Hematocrit 42 40-54 % Mean Corpuscular Volume 92 80-99 FL Mean Corpuscular Hemoglobin 31 25-34 PG Mean Corpuscular Hemoglobin Concent 34 32-36 G/DL Red Cell Distribution Width 13.3 10.0-14.5 % Platelet Count 212 130-400 10^3/uL Mean Platelet Volume 10.1 7.4-10.4 FL Neutrophils (%) (Auto) 77 H 42-75 % Lymphocytes (%) (Auto) 15 12-44 % Monocytes (%) (Auto) 8 0-12 % Eosinophils (%) (Auto) 0 0-10 % Basophils (%) (Auto) 0 0-10 % Neutrophils # (Auto) 6.9 1.8-7.8 X 10^3 Lymphocytes # (Auto) 1.3 1.0-4.0 X 10^3 Monocytes # (Auto) 0.7 0.0-1.0 X 10^3 Eosinophils # (Auto) 0.0 0.0-0.3 10^3/uL Basophils # (Auto) 0.0 0.0-0.1 10^3/uL Sodium Level 136 135-145 MMOL/L Potassium Level 4.0 3.6-5.0 MMOL/L Chloride Level 101 98-107 MMOL/L Carbon Dioxide Level 23 21-32 MMOL/L Anion Gap 12 5-14 MMOL/L Blood Urea Nitrogen 15 7-18 MG/DL Creatinine 1.17 0.60-1.30 MG/DL Estimat Glomerular Filtration Rate > 60 BUN/Creatinine Ratio 13 Glucose Level 106 H 70-105 MG/DL Lactic Acid Level 1.78 0.50-2.00 MMOL/L Calcium Level 9.8 8.5-10.1 MG/DL Corrected Calcium 9.5 8.5-10.1 MG/DL Magnesium Level 1.7 L 1.8-2.4 MG/DL Total Bilirubin 0.9 0.1-1.0 MG/DL Aspartate Amino Transf (AST/SGOT) 29 5-34 U/L Alanine Aminotransferase (ALT/SGPT) 50 0-55 U/L Alkaline Phosphatase 48 40-136 U/L C-Reactive Protein High Sensitivity 2.66 H 0.00-0.50 MG/DL Total Protein 7.1 6.4-8.2 GM/DL Albumin 4.4 3.2-4.5 GM/DL Lipase 11 8-78 U/L Urine Color YELLOW Urine Clarity CLEAR Urine pH 7 5-9 Urine Specific [place] 1.005 L 1.016-1.022 Urine Protein NEGATIVE NEGATIVE Urine Glucose (UA) NEGATIVE NEGATIVE Urine Ketones NEGATIVE NEGATIVE Urine Nitrite NEGATIVE NEGATIVE Urine Bilirubin NEGATIVE NEGATIVE Urine Urobilinogen NORMAL NORMAL MG/DL Urine Leukocyte Esterase NEGATIVE NEGATIVE Urine RBC (Auto) NEGATIVE NEGATIVE Urine RBC NONE /HPF Urine WBC RARE /HPF Urine Crystals NONE /LPF Urine Bacteria NEGATIVE /HPF Urine Casts NONE /LPF Urine Mucus NEGATIVE /LPF Urine Culture Indicated NO Urine Opiates Screen NEGATIVE NEGATIVE Urine Oxycodone Screen NEGATIVE NEGATIVE Urine Methadone Screen NEGATIVE NEGATIVE Urine Propoxyphene Screen NEGATIVE NEGATIVE Urine Barbiturates Screen NEGATIVE NEGATIVE Ur Tricyclic Antidepressants Screen NEGATIVE NEGATIVE Urine Phencyclidine Screen NEGATIVE NEGATIVE Urine Amphetamines Screen NEGATIVE NEGATIVE Urine Methamphetamines Screen NEGATIVE NEGATIVE Urine Benzodiazepines Screen NEGATIVE NEGATIVE Urine Cocaine Screen NEGATIVE NEGATIVE Urine Cannabinoids Screen NEGATIVE NEGATIVE My Orders Orders - AILIN CARDENAS Ua Culture If Indicated (02/22/19 21:41) Cbc With Automated Diff (02/22/19 21:53) Comprehensive Metabolic Panel (02/22/19 21:53) Hs C Reactive Protein (02/22/19 21:53) Drug Screen Stat (Urine) (02/22/19 21:53) Lactic Acid Analyzer (02/22/19 21:53) Lipase (02/22/19 21:53) Magnesium (02/22/19 21:53) Blood Culture (02/22/19 21:53) Ed Iv/Invasive Line Start (02/22/19 21:53) Ns Iv 1000 Ml (Sodium Chloride 0.9%) (02/22/19 21:53) Ketorolac Injection (Toradol Injection) (02/22/19 22:00) Ondansetron Injection (Zofran Injectio (02/22/19 22:00) Metronidazole 500mg/100ml Ivpb (Flagyl 5 (02/22/19 22:15) Ciprofloxacin Iv 400mg/200ml (Cipro Iv S (02/22/19 22:15) Fentanyl Injection (Sublimaze Injection (02/22/19 23:00) Rx-Hydrocodone/Apap 5-325 Mg (Rx-Vicodin (02/22/19 23:45) Ciprofloxacin Tablet (Cipro Tablet) (02/22/19 23:45) Rx-Ondansetron Po (Rx-Zofran Po) (02/22/19 23:32) Medications Given in ED Current Medications Medications Dose Ordered Sig/Frankie Route Start Time Stop Time Status Last Admin Dose Admin Ciprofloxacin 500 mg ONCE ONCE PO 02/22/19 23:45 02/22/19 23:46 DC 02/22/19 23:42 500 MG Fentanyl Citrate 75 mcg ONCE ONCE IVP 02/22/19 23:00 02/22/19 23:01 DC 02/22/19 23:05 75 MCG Ketorolac Tromethamine 30 mg ONCE ONCE IVP 02/22/19 22:00 02/22/19 22:01 DC 02/22/19 22:13 30 MG Metronidazole 100 ml @ 100 mls/hr ONCE ONCE IV 02/22/19 22:15 02/22/19 23:14 DC 02/22/19 22:48 100 MLS/HR Ondansetron HCl 4 mg ONCE ONCE IVP 02/22/19 22:00 02/22/19 22:01 DC 02/22/19 22:12 4 MG Vital Signs/I&O 02/22/19 02/22/19 21:43 23:10 Temp 98.6 98.6 Pulse 68 68 Resp 16 20 B/P (MAP) 114/67 (83) 120/79 (93) Pulse Ox 94 94 O2 Delivery Room Air Room Air 02/23/19 00:00 Intake Total 1100 ml Balance 1100 ml Progress Progress Note #1: Time: 22:00 Progress Note Very consistent with diverticulitis. We'll going get a CT with contrast looking for possible abscess or perforation on a macro scale. 1 L of saline, Flagyl 500 mg IV and Toradol/Zofran for symptoms. Vital signs are aseptic. Progress Note #2: Time: 22:53 Progress Note Urinalysis is pending. The patient's blood work and vital signs are reassuring so we'll go ahead and discontinue the CT scan administer the antibiotics and pain meds and see how he is doing. Progress Note #3: Time: 23:33 Progress Note Patient fentanyl and his oxygen sats look down to 88-89% on room air. We di scussed the possibility of obstructive sleep apnea and reasonable follow-up with primary care to get a sleep study set up. Patient agreed to do this. We discussed the option of doing an observation stay for pain management in the hospital versus going home with some pain pills and the patient did not feel strongly either way but prefer to go home. We'll provide him with some Cipro and Flagyl tonight and the take-home pack of Zofran and hydrocodone. Departure Impression Primary Impression: Diverticulitis of intestine Qualified Codes: K57.32 - Diverticulitis of large intestine without perforation or abscess without bleeding Disposition: 01 HOME, SELF-CARE Condition: Improved Departure-Patient Inst. Decision time for Depature: 23:35 Referrals: SHAYNA GERBER DO (PCP/Family) Primary Care Physician Patient Instructions: Diverticulitis (DC) Add. Discharge Instructions: Use the hydrocodone one to 2 tablets every 6 hours as needed for pain. Drink plenty of fluids and stick to a clear liquid diet until your symptoms improve. Use the Zofran 1 tablet every 6 hours as needed for nausea. 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 Take the ciprofloxacin 1 tablet twice a day. 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 Follow-up with primary care within the next week for recheck. Return to the ER if you begin to have intractable pain, nausea, vomiting, fever above 102 or other worrisome symptoms. Scripts L.acidoph & Paracasei,B.lactis (Probiotic) 1 Each Capsule 1 EACH PO BID for 7 Days, #14 CAP 0 Refills Prov: AILIN CARDENAS 02/22/19 Metronidazole (Flagyl) 500 Mg Tablet 500 MG PO Q8H, #27 TAB 0 Refills Prov: AILIN CARDENAS 02/22/19 Ciprofloxacin HCl (Ciprofloxacin HCl) 500 Mg Tablet 500 MG PO BID, #13 TAB 0 Refills Prov: AILIN CARDENAS 02/22/19 Ondansetron (Ondansetron Odt) 4 Mg Tab.rapdis 4 MG PO Q6H PRN for NAUSEA/VOMITING, #8 TAB 0 Refills Prov: AILIN CARDENAS 02/22/19 Hydrocodone Bit/Acetaminophen (Hydrocodone/Acetaminophen 5/325mg Tablet) 1 Tab Tab 1-2 EACH PO Q6H PRN for PAIN-MODERATE MDD 10, #18 TAB 0 Refills Prov: AILIN CARDENAS 02/22/19 AILIN CARDENAS Feb 22, 2019 22:02
[2019-02-22 22:10] LABS: BASOPHILS % (AUTO) 0 % (0-10); EOSINOPHILS % (AUTO) 0 % (0-10); HEMATOCRIT 42 % (40-54); LYMPHOCYTES # (AUTO) 1.3 X 10^3 (1.0-4.0); LYMPHOCYTES % (AUTO) 15 % (12-44); MEAN CORPUSCULAR HEMOGLOBIN 31 PG (25-34); MEAN CORPUSCULAR HGB CONC 34 G/DL (32-36); MEAN CORPUSCULAR VOLUME 92 FL (80-99); MEAN PLATELET VOLUME 10.1 FL (7.4-10.4); MONOCYTES # (AUTO) 0.7 X 10^3 (0.0-1.0); MONOCYTES % (AUTO) 8 % (0-12); NEUTROPHILS # (AUTO) 6.9 X 10^3 (1.8-7.8); NEUTROPHILS % (AUTO) 77 % (42-75); PLATELET COUNT 212 10^3/uL (130-400); RED CELL DISTRIBUTION WIDTH 13.3 % (10.0-14.5)
[2019-02-22 22:31] LABS: ALANINE AMINOTRANSFERASE 50 U/L (0-55); ALBUMIN 4.4 GM/DL (3.2-4.5); ALKALINE PHOSPHATASE 48 U/L (40-136); BILIRUBIN,TOTAL 0.9 MG/DL (0.1-1.0); BUN/CREATININE RATIO 13; CALCIUM 9.8 MG/DL (8.5-10.1); CARBON DIOXIDE 23 MMOL/L (21-32); CHLORIDE 101 MMOL/L (98-107); CREATININE SERUM 1.17 MG/DL (0.60-1.30); GFR ESTIMATED > 60; GLUCOSE 106 MG/DL (70-105); LIPASE 11 U/L (8-78); MAGNESIUM 1.7 MG/DL (1.8-2.4); SODIUM 136 MMOL/L (135-145); TOTAL PROTEIN 7.1 GM/DL (6.4-8.2)
[2019-02-22 22:36] LABS: BILIRUBIN,URINE NEGATIVE (NEGATIVE); CLARITY,URINE CLEAR; COLOR,URINE YELLOW; GLUCOSE, URINE (UA) NEGATIVE (NEGATIVE); KETONES,URINE NEGATIVE (NEGATIVE); LEUKOCYTE ESTERASE ,URINE NEGATIVE (NEGATIVE); NITRITE,URINE NEGATIVE (NEGATIVE); PH,URINE 7 (5-9); PROTEIN,URINE NEGATIVE (NEGATIVE); UROBILINOGEN,URINE NORMAL (NORMAL)
[2019-02-22 22:57] LABS: BACTERIA,URINE NEGATIVE /HPF; WBC,URINE RARE /HPF
[2019-02-22 22:58] LABS: AMPHETAMINE SCREEN, URINE NEGATIVE (NEGATIVE); BARBITURATE SCREEN URINE NEGATIVE (NEGATIVE); BENZODIAZEPINES SCREEN URINE NEGATIVE (NEGATIVE); CANNABINOID SCREEN, URINE NEGATIVE (NEGATIVE); COCAINE SCREEN URINE NEGATIVE (NEGATIVE); METHADONE STAT NEGATIVE (NEGATIVE); METHAMPHETAMINE SCREEN URINE S NEGATIVE (NEGATIVE); OPIATE SCREEN URINE NEGATIVE (NEGATIVE); OXYCODONE STAT NEGATIVE (NEGATIVE); PROPOXYPHENE STAT NEGATIVE (NEGATIVE); TRICYCLIC ANTIDEPRESSANTS SCRE NEGATIVE (NEGATIVE)
[2019-02-22 23:10] VITALS: BP 120/79
--- NOTE | 2019-02-22 23:14 | NUR ---
pt remains alert gcs 15. son remains in the room. pt still c/o abd pain rating 6-9. denies nausea and no v/d noted in er visit thusf ar. pt moaning in pain off and on. p ox been low off and on 86-90 r/a then low to mid 90s. lips been pale/ dusky. abd firm and no change with distention and neg pulsatingmassess noted. no acute sighns of dyspnea noted. 400 left in bolus. flagyl continues. v/o dr arce 02. i did it 2/n/c.
--- NOTE | 2019-02-22 23:34 | NUR ---
working on d/c instructions.
--- NOTE | 2019-02-22 23:45 | NUR ---
bolus completed. flagyl completed. p ox r/a 92.
--- NOTE | 2019-02-22 23:45 | NUR ---
p ox r/a 92
[2019-02-22 23:57] VITALS: BP 119/78
--- NOTE | 2019-02-22 23:57 | NUR ---
d/c instructions to pt. told to read all papers. scripts fax and paper. pt left in w/c with son. pt knows f/u. i went over the handtypd by information on the chart. iv d/cd by me prior to d/c. take home zofran and vicodin given.
== END | disposition home or self-care (01) ==
LOC: EDUNIT# 21:33 → ER 21:34
DX: K57.32 Diverticulitis of large intestine without perforation or abscess without bleeding (principal); I10 Essential (primary) hypertension; I51.7 Cardiomegaly; K21.9 Gastro-esophageal reflux disease without esophagitis; Z88.0 Allergy status to penicillin; Z79.82 Long term (current) use of aspirin; Z87.19 Personal history of other diseases of the digestive system; Z98.890 Other specified postprocedural states; Z87.891 Personal history of nicotine dependence
CPT/HCPCS: 36415; 80053; 80306; 81000; 83605; 83690; 83735; 85025; 86141; 87040; 96374; 96375

== ENCOUNTER → 2019-06-13 | Outpatient (CLI) | payer OTHER ==
[~2019-06-13] MED LIST changes: -CIPROFLOXACIN 500 MG (CIPRO) TABLET PO ONE; -CIPROFLOXACIN IV 400MG/200ML 200 ML IV ONE; -KETOROLAC 30 MG/ML VIAL IVP ONE; -NS IV 1000 ML 1,000 ML IV SCH; -ONDANSETRON 4 MG/2 ML (SDV) Z0FRAN IVP ONE; -RX-HYDROCODONE/APAP 5/325 MG #4 TAB PK PO PRN; -RX-ONDANSETRON 4 MG ODT (ZOFRAN) PPK #4 PO STA; -fentaNYL INJECTION 100 MCG/2 ML AMP IVP ONE; -metroNIDAZOLE 500MG/100ML IVPB 100 ML IV ONE
--- NOTE | 2019-06-19 14:24 | Diagnostic Imaging Report ---
PROCEDURE: US Renal Bilateral. TECHNIQUE: Multiple real-time grayscale images were obtained over the kidneys in various projections bilaterally. INDICATION: Low GFR. Right kidney measures 11.7 x 5.8 x 5.4 cm and the left kidney measures 13.0 x 4.8 x 5.7 cm. Cortical thickness and echogenicity is normal. No calculi are seen. There is no hydronephrosis. There is an approximately 2 cm cyst involving the upper pole of the left kidney. Urinary bladder demonstrates bilateral ureteral jets. IMPRESSION: 2 cm left renal cyst. No other significant abnormality is seen. Dictated by: Dictated on workstation # [id number]
== END ==
LOC: RAD 09:57
PROVIDERS: ATTEND Family Medicine
DX: N28.1 Cyst of kidney, acquired (principal)
CPT/HCPCS: 76770

== ENCOUNTER 2019-08-18 05:49 | Outpatient (CLI) | payer OTHER ==
[~2019-08-18] VITALS: Ht 170.2 cm; Wt 95.0 kg
[2019-08-18] MEDS ORDERED: GABA-488 PO (10:59)
== END 2019-08-18 11:05 | disposition home or self-care (01) ==
LOC: PREOP 05:49
PROVIDERS: ATTEND Surgery
DX: Z01.818 Encounter for other preprocedural examination (principal)

== ENCOUNTER → 2019-08-25 | Outpatient (CLI) | payer OTHER | LOC: RAD 15:13 | PROVIDERS: ATTEND Family Medicine | DX: R07.9 Chest pain, unspecified (principal) ==

== ENCOUNTER → 2019-09-10 | Outpatient (CLI) | payer OTHER | LOC: CARD 08:44 | PROVIDERS: ATTEND Nurse Practitioner Family | DX: I08.2 Rheumatic disorders of both aortic and tricuspid valves (principal) | CPT/HCPCS: 93306 ==

== ENCOUNTER → 2020-01-30 | Outpatient (CLI) | payer OTHER ==
[~2020-01-30] MED LIST changes: -TAMS0.4C98 PO; +TMSL.4C PO; -TRAM50TA2 PO; +TRM50T PO
== END ==
LOC: LABNPT 09:20
PROVIDERS: ATTEND Internal Medicine Interventional Cardiology
DX: Z01.818 Encounter for other preprocedural examination (principal); Z11.59 Encounter for screening for other viral diseases

== ENCOUNTER → 2020-02-05 | Day surgery (SDC) | payer OTHER ==
[~2020-02-05] VITALS: Ht 170.2 cm; Wt 97.7 kg
[2020-02-05] VITALS (12 sets, daily range): BP systolic 104–139; BP diastolic 66–87
[~2020-02-05] MED LIST changes: +CBD OIL SL; +GLUC-203 PO; +LIDOCAINE 2% VISCOUS 15 ML UDC ONE; +LIDOCAINE 2% VISCOUS 15 ML UDC PO ONE; +MIDAZOLAM 5 MG/5 ML (VERSED) VIAL IV ONE; +MIDAZOLAM 5 MG/5 ML (VERSED) VIAL ONE; +NS IV 1000 ML 1,000 ML IV SCH; +NS IV 1000 ML 1,000 ML ONE; +SAW/1TAB2 PO; +fentaNYL INJECTION 100 MCG/2 ML AMP IV ONE; +fentaNYL INJECTION 100 MCG/2 ML AMP ONE
--- OUTSIDE RECORDS SUMMARY | 2020-02-05 07:42 | XMS REPORT | Clinical Summary ---
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
--- OUTSIDE RECORDS SUMMARY | 2020-02-05 07:45 | XMS REPORT | CCD ---
Author Author Jai Live D.O. Organization [facility] Address [address] [place] [address] Phone Care Team Providers Care Occupational Therapy Technician Name Role Phone Sapna Live D.O., PP Unavailable CCM Unavailable Summary Purpose Interface Exchange Insurance Providers Payer name Policy type / Coverage type Covered alliance party ID Effective Begin Date Effective End Date GPA Commercial Insurance [id number] 2019 Unknown Family history Mother Diagnosis Age At Onset Cancer Unknown Father Diagnosis Age At Onset Congestive heart failure Unknown Coronary Artery Disease(CAD) Unknown Social History Social History Element Codes Description Effective Dates Tobacco history SNOMED CT: 6740086 Former smoker 10/09/2018 Marital status Unknown 07/08/2014 Number of children Unknown 1 07/08/2014 Employment Unknown Currently employed [employer] 07/08/[address]: 180862421 Never drinks alcohol 2013 Has the patient ever used illegal drugs? Unknown Has nev er used illegal drugs 07/08/2014 Allergies, Adverse Reactions, Alerts Substance Reaction Codes Entered Date Inactivated Date Status * NO KNOWN FOOD ALLERGIES Unknown 07/08/2014 No Inactiv e Date Active PENICILLINS Unknown 06/14/2015 No Inactive Date Active * NO KNOWN ENVIRONMENTAL ALLERGIES Unknown 07/08/2014 N o Inactive Date Active CEPHALOSPORINS reaction Unknown 06/14/2015 No Inactive Date Acti ve Problems Condition Codes Effective Dates Condition Status Sore throat ICD-9: 462 ICD-10: J02.9 02/13/2017 Active Allergic rhinitis ICD-9: 477.9 ICD-10: J30.9 12/19/2019 Active Postnasal drip ICD-9: 784.91 ICD-10: R09.82 12/19/2019 Active Infected sebaceous cyst ICD-9: 706.2 ICD-10: L72.3 10/27/2019 Active Disorder of the skin and subcutaneous tissue, unspecif ied ICD-9: 709.9 ICD-10: L98.9 06/08/2016 Active Local infection of the skin and subcutaneous tissue, unspeci fied ICD-10: L08.9 10/27/2019 Active Aortic regurgitation ICD-9: 424.1 ICD-10: I35.1 10/02/2019 Active Suprapubic abdominal pain ICD-9: 789.09 ICD-10: R10.2 10/02/2019 Active Chest pain ICD-9: 786.50 ICD-10: R07.9 08/25/2019 Active Adrenal mass ICD-9: 255.8 ICD-10: E27.8 08/13/2019 Active Disorder of kidney and ureter, unspecified ICD-9: 593. 9 ICD-10: N28.9 06/05/2019 Active Personal history of nicotine dependence ICD-9: V15.82 ICD-10: Z87.891 10/09/2018 Active Jock itch ICD-9: 110.3 ICD-10: B35.6 07/03/2019 Active Sigmoid diverticulitis ICD-9: 562.11 ICD-10: K57.32 02/24/2019 Active Cramp and spasm ICD-9: 729.82 ICD-10: R25.2 06/05/2019 Active Other pruritus ICD-9: 698.9 ICD-10: L29.8 05/21/2019 Active Pain in right knee ICD-9: 719.46 ICD-10: M25.561 02/12/2018 Active Edema, unspecified ICD-9: 782.3 ICD-10: R60.9 04/21/2019 Active Other constipation ICD-9: 564.00 ICD-10: K59.09 02/24/2019 Active Snoring ICD-9: 786.09 ICD-10: R06.83 02/24/2019 Active Diverticulitis of large intestine without perforation or abscess with bleeding ICD-9: 562.13 ICD-10: K57.33 02/04/2019 Active Left lower quadrant pain ICD-9: 789.04 ICD-10: R10.32 08/13/2017 Active Dermatitis, unspecified ICD-9: 692.9 ICD-10: L30.9 12/19/2018 Active Gastro-esophageal reflux disease without esophagitis I CD-9: 530.81 ICD-10: K21.9 10/09/2018 Active Palpitations ICD-9: 785.1 ICD-10: R00.2 12/19/2018 Active Dysphagia, pharyngoesophageal phase ICD-9: 787.24 ICD-10: R13.14 11/11/2018 Active Encounter for general adult medical examination withou t abnormal findings ICD-9: V70.9 ICD-10: Z00.00 07/18/2016 Active Encounter for screening for malignant neoplasm of resp iratory organs ICD-9: V76.0 ICD-10: Z12.2 10/09/2018 Active Essential (primary) hypertension ICD-9: 401.9 ICD-10: I10 07/08/2014 Active Mixed hyperlipidemia ICD-9: 272.2 ICD-10: E78.2 10/09/2018 Active Other intervertebral disc degeneration, thoracic regio n ICD-9: 722.51 ICD-10: M51.34 08/13/2017 Active Other postprocedural complications and disorders of di gestive system ICD-9: 997.49 ICD-10: K91.89 10/09/2018 Active Unilateral primary osteoarthritis, right knee ICD-9: 7 16.96 ICD-10: M17.11 02/19/2018 Active Pain in right hip ICD-9: 719.45 ICD-10: M25.551 02/12/2018 Active Other chest pain ICD-9: 786.59 ICD-10: R07.89 12/03/2017 Active Left upper quadrant pain ICD-9: 789.02 ICD-10: R10.12 08/13/2017 Active 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 07/08/2014 Active Encounter for screening for malignant neoplasm of pros mccoy ICD-9: V76.44 ICD-10: Z12.5 07/05/2016 Active Pain in thoracic spine ICD-9: 724.1 ICD-10: M54.6 07/08/2014 Active Retention of urine, unspecified ICD-9: 788.20 ICD-10: R33.9 11/07/2015 Active Urinary tract infection, site not specified ICD-9: 599 .0 ICD-10: N39.0 11/07/2015 Active DERMATITIS NOS ICD-9: 692.9 06/13/2015 Active SEBACEOUS CYST ICD-9: 706.2 06/13/2015 Active FOLLICULITIS ICD-9: 704.8 05/17/2015 Active LOCAL SKIN INFECTION ICD-9: 686.9 05/17/2015 Active Constipation ICD-9: 564.00 02/22/2015 Active Scoliosis ICD-9: 737.30 12/02/2014 Active Thoracic degenerative disc disease ICD-9: 722.51 12/02/2014 Active ACTINIC KERATOSIS ICD-9: 702.0 08/18/2014 Active Pleurisy ICD-9: 511.0 08/13/2014 Active Hypertension Unknown 07/08/2014 Active Adrenal tumor ICD-9: 239.7 07/08/2014 Active GERD ICD-9: 530.81 07/08/2014 Active HYPERTENSION ICD-9: 401.9 07/08/2014 Active Thoracic back pain ICD-9: 724.1 07/08/2014 Active Medications Medication Codes Instructions Start Date Stop Date Status Fill Instructions tramadol 50 mg tablet RxNorm: 726231 1 Tablet(s) Oral t hree times a day as needed for pain along with two tylenol 01/19/2020 No Stop Date Active clarithromycin ER 500 mg tablet,extended release 24 hr RxNor m: 219351 1 Tablet(s) Oral two times a day 12/22/2019 12/29/2019 Inactive clarithromycin ER 500 mg tablet,extended release 24 hr RxNor m: 447717 1 Tablet(s) Oral two times a day 12/22/2019 12/21/2019 Inactive Move Free Joint Health 750 mg-100 mg-1.65 mg-108 mg tablet R xNorm: 1 Tablet(s) Oral QD 12/19/2019 No Stop Date Active Vitamin D3 1000 units Capsule RxNorm: 3 Capsule(s) Oral QD No Stop Date Active Probiotic 5 billion cell sprinkle capsule RxNorm: 1 Caps ule(s) Oral QD 12/19/2019 No Stop Date Active famotidine 20 mg tablet RxNorm: 589137 1 Tablet(s) Oral QPM for postnasal drip/stomach 12/19/2019 01/18/2020 Inactive tramadol 50 mg tablet RxNorm: 942548 1 Tablet(s) Oral t hree times a day as needed for pain along with two tylenol 12/03/2019 01/18/2020 Inactive doxycycline hyclate 100 mg capsule RxNorm: 6089604 1 Cap lee(s) Oral two times a day 11/03/2019 11/02/2019 Inactive doxycycline hyclate 100 mg capsule RxNorm: 1787012 1 Cap lee(s) Oral two times a day 11/03/2019 11/10/2019 Inactive tramadol 50 mg tablet RxNorm: 057138 1 Tablet(s) Oral t hree times a day as needed for pain along with two tylenol 10/27/2019 10/26/2019 Inactive tramadol 50 mg tablet RxNorm: 130534 1 Tablet(s) Oral t hree times a day as needed for pain along with two tylenol 10/27/2019 10/27/2019 Inactive cyclobenzaprine 10 mg tablet RxNorm: 891598 1 Tablet(s) Oral th ree times a day 10/27/2019 12/18/2019 Inactive Bactrim DS 800 mg-160 mg tablet RxNorm: 675613 1 Tablet(s) Oral two times a day 10/27/2019 11/03/2019 Inactive Bactrim DS 800 mg-160 mg tablet RxNorm: 410325 1 Tablet(s) Oral two times a day 10/27/2019 10/26/2019 Inactive tramadol 50 mg tablet RxNorm: 709782 1 Tablet(s) Oral t hree times a day as needed for pain along with two tylenol 09/29/2019 10/26/2019 Inactive quinapril 40 mg tablet RxNorm: 953976 1 Tablet(s) Oral QD 09/18/2019 03/15/2020 Active Patient requests 90 days supply tramadol 50 mg tablet RxNorm: 887730 1 Tablet(s) Oral t hree times a day as needed for pain along with two tylenol 08/28/2019 08/28/2019 Inactive tramadol 50 mg tablet RxNorm: 564316 1 Tablet(s) PO TID as needed for pain along with two tylenol 08/25/2019 08/27/2019 Inactive pantoprazole 40 mg tablet,delayed release RxNorm: 554596 1 Tabl et(s) Oral QD 08/13/2019 No Stop Date Active Vitamin D3 1,000 unit capsule RxNorm: 466522 1 Capsule(s) Oral QD 1 10/13/2018 12/18/2019 Inactive tamsulosin 0.4 mg capsule RxNorm: 468466 1 Capsule(s) Oral QPM 07/2612/18/2019 Inactive Protonix 40 mg tablet,delayed release RxNorm: 376045 TA KE 1 TABLET BY MOUTH TWICE A DAY 08/04/2019 08/12/2019 Inactive Flagyl 500 mg tablet RxNorm: 763456 1 Tablet(s) Oral three time s a day 07/03/2019 07/13/2019 Inactive fluconazole 100 mg tablet RxNorm: 920110 1 Tablet(s) Oral QD 201807/10/2019 Inactive Bactrim DS 800 mg-160 mg tablet RxNorm: 047078 1 Tablet(s) Oral two times a day 07/03/2019 07/13/2019 Inactive nystatin 100,000 unit/gram topical cream RxNorm: 496669 Application Topical two times a day 07/03/2019 08/12/2019 Inactive gabapentin 600 mg tablet RxNorm: 209156 Tablet(s) TAKE 1 TABLET BY MOUTH EVERY NIGHT AT BEDTIME 06/25/2019 08/12/2019 Inactive - First Attempt Ref: [id number] quinapril 40 mg tablet RxNorm: 114423 1 Tablet(s) Oral QD 06/23/2019 09/17/2019 Inactive Patient requests 90 days supply tramadol 50 mg tablet RxNorm: 532597 1 Tablet(s) PO TID as needed for pain along with two tylenol 05/23/2019 08/24/2019 Inactive hydroxyzine HCl 25 mg tablet RxNorm: 133481 1 Tablet(s) PO TID as needed 05/21/2019 08/12/2019 Inactive Elimite 5 % topical cream RxNorm: 091046 1 Application TOP QHS apply head to toe and was off in morning 05/19/2019 07/02/2019 Inactive Protonix 40 mg tablet,delayed release RxNorm: 560971 1 Tablet(s ) PO BID 05/05/2019 08/02/2019 Inactive - First Attempt Ref: [id number] gabapentin 600 mg tablet RxNorm: 985441 Tablet(s) TAKE 1 TABLET BY MOUTH EVERY NIGHT AT BEDTIME 04/25/2019 06/24/2019 Inactive - First Attempt Ref: [id number] tramadol 50 mg tablet RxNorm: 115433 1 Tablet(s) PO TID as needed for pain along with two tylenol 04/21/2019 05/22/2019 Inactive quinapril 40 mg tablet RxNorm: 644250 1 Tablet(s) PO QD 04/01/2019 Inactive Patient requests 90 days supply fenofibrate micronized 134 mg capsule RxNorm: 357229 1 Capsule(s) PO QD Due for updated fasting labs 03/31/2019 08/12/2019 Inactive dicyclomine 10 mg capsule RxNorm: 001086 1 Capsule(s) PO TID as needed 02/24/2019 05/20/2019 Inactive Flagyl 500 mg tablet RxNorm: 284513 1 Tablet(s) PO Q8H 02/24/201908/2019 Inactive ciprofloxacin 500 mg tablet RxNorm: 331061 1 Tablet(s) PO BID 02/2403/09/2019 Inactive Flagyl 500 mg tablet RxNorm: 940830 1 Tablet(s) PO Q6H 01/30/2019 Inactive ciprofloxacin 500 mg tablet RxNorm: 394590 1 Tablet(s) PO BID 01/3001/29/2019 Inactive Flagyl 500 mg tablet RxNorm: 811951 1 Tablet(s) PO Q6H 01/30/201904/2019 Inactive ciprofloxacin 500 mg tablet RxNorm: 071577 1 Tablet(s) PO BID 01/3002/05/2019 Inactive gabapentin 600 mg tablet RxNorm: 328601 TAKE 1 TABLET B Y MOUTH EVERY NIGHT AT BEDTIME 01/27/2019 04/24/2019 Inactive - First Attempt Ref: [id number] tramadol 50 mg tablet RxNorm: 356776 1 Tablet(s) PO TID as needed for pain along with two tylenol 01/08/2019 04/20/2019 Inactive fenofibrate micronized 134 mg capsule RxNorm: 410414 1 Capsule(s) PO QD Due for updated fasting labs 01/02/2019 03/30/2019 Inactive quinapril 40 mg tablet RxNorm: 892023 1 Tablet(s) PO QD 01/01/2019 Inactive Patient requests 90 days supply Protonix 40 mg tablet,delayed release RxNorm: 670964 TA KE 1 TABLET BY MOUTH TWICE A DAY 01/01/2019 03/31/2019 Inactive - First Attempt Ref: [id number] Protonix 40 mg tablet,delayed release RxNorm: 305532 TA KE 1 TABLET BY MOUTH TWICE A DAY 12/25/2018 12/31/2018 Inactive - First Attempt Ref: [id number] gabapentin 600 mg tablet RxNorm: 247939 TAKE 1 TABLET B Y MOUTH EVERY NIGHT AT BEDTIME 12/02/2018 01/26/2019 Inactive - First Attempt Ref: [id number] Protonix 40 mg tablet,delayed release RxNorm: 175483 1 Tablet(s ) PO BID 11/11/2018 12/24/2018 Inactive Protonix 40 mg tablet,delayed release RxNorm: 428884 1 Tablet(s ) PO BID 10/09/2018 11/10/2018 Inactive gabapentin 600 mg tablet RxNorm: 977957 1 Tablet(s) PO QHS 10/09/19 19 12/01/2018 Inactive quinapril 40 mg tablet RxNorm: 073943 1 Tablet(s) PO QD 1 TABLE T(S) PO QD 08/08/2018 08/07/2018 Inactive Patient requests 9 0 days supply quinapril 40 mg tablet RxNorm: 007366 1 Tablet(s) PO QD 08/08/2018 Inactive Patient requests 90 days supply meloxicam 15 mg tablet RxNorm: 690513 1 Tablet(s) PO QD 08/08/2018 Inactive gabapentin 300 mg capsule RxNorm: 336560 1 CAPSULE(S) P O QHS DUE FOR WELLNESS VISIT 08/07/2018 10/08/2018 Inactive due for followup meloxicam 15 mg tablet RxNorm: 708829 Tablet(s) 1 TABLET(S) PO QD 1 10/07/2017 08/07/2018 Inactive fenofibrate micronized 134 mg capsule RxNorm: 469243 1 Capsule(s) PO QD Needs updated fasting labs!!!!!! 07/08/2018 07/07/2018 Inactive fenofibrate micronized 134 mg capsule RxNorm: 158943 1 Capsule( s) PO QD 07/08/2018 01/01/2019 Inactive fenofibrate micronized 134 mg capsule RxNorm: 435680 1 Capsule(s) PO QD Needs updated fasting labs!!!!!! 06/21/2018 07/08/2018 Inactive Medrol (Daniel) 4 mg tablets in a dose pack RxNorm: 815769 Tablet(s) PO As Directed 05/06/2018 05/05/2018 Inactive Medrol (Daniel) 4 mg tablets in a dose pack RxNorm: 079816 Tablet(s) PO As Directed 05/06/2018 08/07/2018 Inactive quinapril 40 mg tablet RxNorm: 300705 1 TABLET(S) PO QD 05/02/2018 Inactive Patient requests 90 days supply fenofibrate micronized 134 mg capsule RxNorm: 791257 1 Capsule(s) PO QD Needs updated fasting labs 04/29/2018 05/28/2018 Inactive Move Free Joint Health 750 mg-100 mg-1.65 mg-108 mg tablet R xNorm: 1 Tablet(s) PO QD 02/12/2018 03/13/2018 Inactive fenofibrate micronized 134 mg capsule RxNorm: 515703 Ca psule(s) 1 CAPSULE(S) PO QD 01/29/2018 06/21/2018 Inactive quinapril 40 mg tablet RxNorm: 125069 1 TABLET(S) PO QD 11/26/2017 Inactive Patient requests 90 days supply fenofibrate micronized 134 mg capsule RxNorm: 436783 1 CAPSULE( S) PO QD 11/06/2017 01/29/2018 Inactive gabapentin 300 mg capsule RxNorm: 956797 1 CAPSULE(S) P O QHS DUE FOR WELLNESS VISIT 10/24/2017 07/20/2018 Inactive due for followup meloxicam 15 mg tablet RxNorm: 281339 1 TABLET(S) PO QD 10/24/2017 Inactive quinapril 40 mg tablet RxNorm: 511183 1 Tablet(s) PO QD 10/24/2017 Inactive fenofibrate micronized 134 mg capsule RxNorm: 960645 1 Capsule( s) PO QD 08/22/2017 11/05/2017 Inactive fenofibrate micronized 134 mg capsule RxNorm: 341278 1 Capsule( s) PO QD 08/22/2017 08/21/2017 Inactive quinapril 20 mg tablet RxNorm: 772064 1 Tablet(s) PO QD 08/13/2017 Inactive gabapentin 300 mg capsule RxNorm: 795477 1 Capsule(s) P O QHS Due for wellness visit 08/06/2017 10/23/2017 Inactive due for followup gabapentin 300 mg capsule RxNorm: 470936 1 Capsule(s) P O QHS Due for wellness visit 08/02/2017 08/05/2017 Inactive due for followup meloxicam 15 mg tablet RxNorm: 217687 1 Tablet(s) PO QD 08/01/2017 Inactive gabapentin 300 mg capsule RxNorm: 323392 1 Capsule(s) P O QHS Due for wellness visit 08/01/2017 08/01/2017 Inactive due for followup gabapentin 300 mg capsule RxNorm: 996021 1 Capsule(s) P O QHS Due for wellness visit 08/01/2017 08/02/2017 Inactive gabapentin 300 mg capsule RxNorm: 462570 1 Capsule(s) PO QHS 201605/12/2017 Inactive quinapril 10 mg tablet RxNorm: 179978 1 Tablet(s) PO QD replace s quinapril hct 02/12/2017 08/12/2017 Inactive meloxicam 15 mg tablet RxNorm: 625527 1 Tablet(s) PO QD 02/05/2017 Inactive quinapril 10 mg tablet RxNorm: 935193 1 Tablet(s) PO QD replace s quinapril hct 11/16/2016 02/12/2017 Inactive gabapentin 300 mg capsule RxNorm: 977217 1 Capsule(s) PO QHS 201602/12/2017 Inactive quinapril 10 mg tablet RxNorm: 054506 1 Tablet(s) PO QD replace s quinapril hct 10/16/2016 11/15/2016 Inactive gabapentin 300 mg capsule RxNorm: 015088 1 Capsule(s) PO QHS 201511/15/2016 Inactive quinapril 10 mg tablet RxNorm: 065783 1 Tablet(s) PO QD replace s quinapril hct 07/19/2016 10/15/2016 Inactive meloxicam 15 mg tablet RxNorm: 613346 1 Tablet(s) PO QD 07/10/2016 Inactive meloxicam 15 mg tablet RxNorm: 694654 TAKE ONE TABLET BY MOUTH LUKE Y 07/10/2016 07/09/2016 Inactive meloxicam 15 mg tablet RxNorm: 692915 1 Tablet(s) PO QD 07/06/2016 Inactive meloxicam 15 mg tablet RxNorm: 845611 1 Tablet(s) PO QD 06/09/2016 Inactive Multivitamin & Mineral Formula tablet RxNorm: 1 Tablet(s) PO Q D 06/02/2016 07/01/2016 Inactive tamsulosin 0.4 mg capsule RxNorm: 857467 1 Capsule(s) PO QHS 201507/01/2016 Inactive Move Free Joint Health 750 mg-100 mg-1.65 mg-108 mg tablet R xNorm: 1 Tablet(s) PO QD 06/02/2016 07/01/2016 Inactive gabapentin 300 mg capsule RxNorm: 946607 1 Capsule(s) PO QHS 201508/27/2016 Inactive gabapentin 300 mg capsule RxNorm: 963623 Capsule(s) ALFONZO E ONE CAPSULE BY MOUTH AT BEDTIME 02/28/2016 05/27/2016 Inactive quinapril 10 mg-hydrochlorothiazide 12.5 mg tablet RxNorm: 3 46549 Tablet(s) TAKE ONE TABLET BY MOUTH EVERY MORNING 01/14/2016 07/18/2016 Inactive gabapentin 300 mg capsule RxNorm: 773032 TAKE ONE CAPSULE BY MO [facility] AT BEDTIME 12/28/2015 02/27/2016 Inactive Urecholine 25 mg tablet RxNorm: 156160 1 Tablet(s) PO TID 11/09/2015 07/18/2016 Inactive phenazopyridine 100 mg tablet RxNorm: 2277952 1 Tablet(s ) PO TID as needed for bladder spasms. 11/08/2015 11/08/2015 Inactive quinapril 10 mg-hydrochlorothiazide 12.5 mg tablet RxNorm: 3 62510 TAKE ONE TABLET BY MOUTH EVERY MORNING 10/15/2015 01/13/2016 Inactive gabapentin 300 mg capsule RxNorm: 197423 1 Tablet(s) PO QD TAKE ONE CAPSULE BY MOUTH EVERY NIGHT AT BEDTIME 09/23/2015 12/21/2015 Inactive quinapril 10 mg-hydrochlorothiazide 12.5 mg tablet RxNorm: 3 20056 Tablet(s) TAKE ONE TABLET BY MOUTH EVERY MORNING 07/14/2015 10/14/2015 Inactive gabapentin 300 mg capsule RxNorm: 663447 1 Tablet(s) PO QD TAKE ONE CAPSULE BY MOUTH EVERY NIGHT AT BEDTIME 06/25/2015 09/23/2015 Inactive prednisone 20 mg tablet RxNorm: 107203 1 Tablet(s) PO QD 06/14/2015 0 06/20/2015 Inactive cephalexin 500 mg capsule RxNorm: 790701 1 Capsule(s) PO BID 201405/27/2015 Inactive mupirocin 2 % topical ointment RxNorm: 511404 TOP BID 05/18/2015 0 06/13/2015 Inactive quinapril 10 mg-hydrochlorothiazide 12.5 mg tablet RxNorm: 3 54214 Tablet(s) TAKE ONE TABLET BY MOUTH EVERY MORNING 04/06/2015 07/14/2015 Inactive gabapentin 300 mg capsule RxNorm: 626553 1 Capsule(s) PO QHS 201404/01/2015 Inactive [SAVINGS FOR NON-COVERED LILIANA GS -- BIN:421795, PCN: ASPROD1, Group: XXXXX, ID# [id number], Questions: . THIS IS NOT INSURANCE.] gabapentin 300 mg capsule RxNorm: 559051 1 Capsule(s) PO QHS 201406/25/2015 Inactive [SAVINGS FOR NON-COVERED LILIANA GS -- BIN:617055, PCN: ASPROD1, Group: XXXXX, ID# [id number], Questions: . THIS IS NOT INSURANCE.] quinapril 10 mg-hydrochlorothiazide 12.5 mg tablet RxNorm: 3 93761 TAKE ONE TABLET BY MOUTH EVERY MORNING 12/11/2014 04/05/2015 Inactive gabapentin 300 mg capsule RxNorm: 948902 1 Capsule(s) PO QHS 201404/02/2015 Inactive [SAVINGS FOR NON-COVERED LILIANA GS -- BIN:405784, PCN: ASPROD1, Group: XXXXX, ID# [id number], Questions: . THIS IS NOT INSURANCE.] cyclobenzaprine 10 mg tablet RxNorm: 230096 1 Tablet(s) PO TID as needed for muscle spasm for muscle spasm 12/02/2014 02/21/2015 Inactive [S AVINGS FOR NON- COVERED DRUGS -- BIN:567058, PCN: ASPROD1, Group: XXXXX, ID# [id number], Questions: . THIS IS NOT INSURANCE.] gabapentin 100 mg capsule RxNorm: 156535 1 Capsule(s) PO QHS 201412/01/2014 Inactive [SAVINGS FOR NON-COVERED LILIANA GS -- BIN:728125, PCN: ASPROD1, Group: XXXXX, ID# [id number], Questions: . THIS IS NOT INSURANCE.] ibuprofen 800 mg tablet RxNorm: 309622 1 Tablet(s) PO T ID as needed low back pain 11/11/2014 11/23/2014 Inactive [SAVINGS FOR NON -COVERED DRUGS -- BIN:591241, PCN: ASPROD1, Group: XXXXX, ID# [id number], Questions: . THIS IS NOT INSURANCE.] ibuprofen 800 mg tablet RxNorm: 180113 1 Tablet(s) PO T ID as needed low back pain 11/09/2014 11/10/2014 Inactive [SAVINGS FOR NON -COVERED DRUGS -- BIN:329322, PCN: ASPROD1, Group: XXXXX, ID# [id number], Questions: . THIS IS NOT INSURANCE.] Zorvolex 35 mg capsule RxNorm: 3748569 1 Tablet(s) PO TID 08/27/2014 10/01/2014 Inactive [SAVINGS FOR UNINSURED PATIENTS -- BIN:0 76564, PCN: ASPROD1, Group: [id number], ID# [id number], Process claim through KILTR, for questions: . THIS IS NOT INSURANCE.] quinapril 10 mg-hydrochlorothiazide 12.5 mg tablet RxNorm: 3 92245 1 Tablet(s) PO QAM 08/27/2014 11/24/2014 Inactive Lidoderm 5 % (700 mg/patch) adhesive patch RxNorm: 8551854 Application TOP for 12hours then off for pain 08/18/2014 02/21/2015 Inactive [SAVIN GS FOR UNINSURED PATIENTS -- BIN:155364, PCN: ASPROD1, Group: AME08, ID# [id number], Process claim through KILTR, for questions: . THIS IS NOT INSURANCE.] Zorvolex 35 mg capsule RxNorm: 5737424 1 Tablet(s) PO TID 08/13/2014 08/12/2014 Inactive Zorvolex 35 mg capsule RxNorm: 2314391 1 Tablet(s) PO TID 08/13/2014 08/24/2014 Inactive [SAVINGS FOR UNINSURED PATIENTS -- BIN:0 34151, PCN: ASPROD1, Group: [id number], ID# [id number], Process claim through KILTR, for questions: . THIS IS NOT INSURANCE.] Aspirin Child 81 mg chewable tablet RxNorm: 012799 1 Tablet(s) PO QD No Start Date Active ibuprofen 800 mg tablet RxNorm: 923004 1 Tablet(s) PO T ID as needed low back pain No Start Date 11/08/2014 Inactive cyclobenzaprine 10 mg tablet RxNorm: 939298 1 Tablet(s) PO TID No S tart Date 08/12/2017 Inactive garlic 1,000 mg capsule RxNorm: 230405 1 Capsule(s) PO QD No Start Date 04/22/2019 Inactive tramadol 50 mg tablet RxNorm: 826419 1 Tablet(s) PO Q4-6H as ne eded for pain No Start Date 02/21/2015 Inactive tramadol 50 mg tablet RxNorm: 882912 1 Tablet(s) PO TID as needed for pain along with two tylenol No Start Date 01/07/2019 Inactive krill oil oral RxNorm: 98133 oral No Start Date 11/11/2018 Inacti ve Vitamin D3 2,000 unit tablet RxNorm: 023140 1 Tablet(s) PO QD No St art Date 08/12/2019 Inactive gabapentin 100 mg tablet RxNorm: 680324 1 Tablet(s) PO QD No Start Date 11/10/2014 Inactive Zofran 4 mg tablet RxNorm: 038451 1 Tablet(s) PO Q6H as needed No S tart Date 08/12/2019 Inactive Elimite 5 % topical cream RxNorm: 877228 1 Application TOP QHS apply head to toe and was off in morning No Start Date 05/18/2019 Inactive gabapentin 100 mg capsule RxNorm: 906796 1 Capsule(s) PO QHS No Sta rt Date 11/10/2014 Inactive aspirin 325 mg tablet RxNorm: 195055 2 Tablet(s) PO QD No Start Date 08/17/2014 Inactive Fish Oil 1,000 mg capsule RxNorm: 1 Capsule(s) PO QD No Start Date 10/08/2018 Inactive quinapril 10 mg-hydrochlorothiazide 12.5 mg tablet RxNorm: 3 61775 1 Tablet(s) PO QAM No Start Date 08/26/2014 Inactive quinapril 40 mg tablet RxNorm: 021823 1 Tablet(s) PO QD No Start Da te 10/23/2017 Inactive Medrol (Daniel) 4 mg tablets in a dose pack RxNorm: 989616 Tablet(s) PO As Directed No Start Date 05/05/2018 Inactive Urecholine 25 mg tablet RxNorm: 648410 1 Tablet(s) PO TID No Start Date 11/08/2015 Inactive cyclobenzaprine 10 mg tablet RxNorm: 312883 1/2-1 Table t(s) PO TID as needed for muscle spasm No Start Date 12/01/2014 Inactive tamsulosin 0.4 mg capsule RxNorm: 223374 2 Capsule(s) PO QPM No Sta rt Date 08/12/2019 Inactive hydrocodone 5 mg-acetaminophen 325 mg tablet RxNorm: 890052 1 -2 Tablet(s) PO Q6H as needed No Start Date 05/20/2019 Inactive loratadine 10 mg tablet RxNorm: 773579 1 Tablet(s) PO QD No Start D ate 07/07/2014 Inactive Medication Administered No Medication Administered data Immunizations Vaccine Codes Date Status Influenza CVX: 141 07/21/2019 Results Observation Observation Code Item Item Code Result Date S ervice Location CULTURE, THROAT 41587 CULTURE, THROAT SEE NOTE 12/23 [facility] [address] [place] [address] CULTURE, AEROBIC BACTERIA 34114 CULTURE, AEROBIC BACTERIA SEE NOTE 10/30/[address] [address] CULTURE, URINE, ROUTINE 395 CULTURE, URINE, ROUTINE SEE NOTE 08/15/[address] [address] CULTURE, URINE, ROUTINE 395 CULTURE SEE NOTE 1 10/15/[address] [address] CBC (H/H, RBC, INDICES, WBC, PLT) 79670 WHITE BLOOD CELL COU NT 7.9 Thousand/uL 08/14/2019 [facility] [address] CBC (H/H, RBC, INDICES, WBC, PLT) 115[address] RED BLOOD CELL COUNT 4.93 Million/uL 08/14/[address] [address] CBC (H/H, RBC, INDICES, WBC, PLT) [address] HEMOGLOBIN 15 .4 g/dL 08/14/[address] [address] CBC (H/H, RBC, INDICES, WBC, PLT) 46275 HEMATOCRIT 45 .0 % 08/14/[address] [address] CBC (H/H, RBC, INDICES, WBC, PLT) 42242 MCV 91 .3 fL 08/14/[address] [address] CBC (H/H, RBC, INDICES, WBC, PLT) 10337 MCH 31 .2 pg 08/14/2019 [facility] [address] CBC (H/H, RBC, INDICES, WBC, PLT) 24331 MCHC 34 .2 g/dL 08/14/2019 [facility] [address] CBC (H/H, RBC, INDICES, WBC, PLT) 07317 RDW 12 .7 % 08/14/2019 [facility] [address] CBC (H/H, RBC, INDICES, WBC, PLT) 54378 PLATELET COUNT 214 Thousand/uL 08/14/2019 [facility] [address] CBC (H/H, RBC, INDICES, WBC, PLT) 27329 MPV 11 .5 fL 08/14/2019 [facility] [address] [place] [address] COMPREHENSIVE METABOLIC PANEL 15283 Glucose 113 mg /dL 08/14/2019 [facility] [address] COMPREHENSIVE METABOLIC PANEL 79981 UREA NITROGEN (BUN) 16 mg/dL 08/14/2019 [facility] [address] COMPREHENSIVE METABOLIC PANEL 19481 CREATININE 0.86 m g/dL 08/14/2019 [facility] [address] [address] COMPREHENSIVE METABOLIC PANEL 22062 eGFR NON-AFR. CANADIAN 92 mL/min/1.73m2 08/14/2019 [facility] [address] [address] COMPREHENSIVE METABOLIC PANEL 28265 eGFR 106 mL/min/1.73m2 08/14/2019 [facility] [address] [address] COMPREHENSIVE METABOLIC PANEL 43659 BUN/CREATININE RATIO NOT APPLICABLE (calc) 08/14/2019 [facility] [address] [address] COMPREHENSIVE METABOLIC PANEL 48811 SODIUM 141 mm ol/L 08/14/2019 [facility] [address] [address] COMPREHENSIVE METABOLIC PANEL 96566 POTASSIUM 4.1 mm ol/L 08/14/2019 [facility] [address] [address] COMPREHENSIVE METABOLIC PANEL 47069 CHLORIDE 102 mm ol/L 08/14/2019 [facility] [address] [address] COMPREHENSIVE METABOLIC PANEL 40410 CARBON DIOXIDE 28 mmol/L 08/14/2019 [facility] [address] [address] COMPREHENSIVE METABOLIC PANEL 86435 CALCIUM 9.7 mg /dL 08/14/2019 [facility] [address] [address] COMPREHENSIVE METABOLIC PANEL 18939 PROTEIN, TOTAL 6. 7 g/dL 08/14/2019 [facility] [address] COMPREHENSIVE METABOLIC PANEL 80870 ALBUMIN 4.3 g/ dL 08/14/2019 [facility] [address] COMPREHENSIVE METABOLIC PANEL 03325 GLOBULIN 2.4 g/ dL(calc) 08/14/2019 [facility] [address] COMPREHENSIVE METABOLIC PANEL 69915 ALBUMIN/GLOBULIN RATIO 1.8 (calc) 08/14/2019 [facility] [address] COMPREHENSIVE METABOLIC PANEL 70894 BILIRUBIN, TOTAL 1.0 mg/dL 08/14/2019 [facility] [address] COMPREHENSIVE METABOLIC PANEL 83818 ALKALINE PHOSPHATASE 56 U/L 08/14/[address] [facility] [address] [address] COMPREHENSIVE METABOLIC PANEL 28765 AST 18 U/L 08/14/2019 [facility] [address] COMPREHENSIVE METABOLIC PANEL 44409 ALT 28 U/L 08/14/[address] [facility] [address] MAGNESIUM 11875 MAGNESIUM 2.0 mg/dL 06/06/2019 [facility] [address] COMPREHENSIVE METABOLIC PANEL 53636 Glucose 106 mg /dL 06/06/2019 [facility] [address] COMPREHENSIVE METABOLIC PANEL 04426 UREA NITROGEN (BUN) 22 mg/dL 06/06/2019 [facility] [address] COMPREHENSIVE METABOLIC PANEL 68510 CREATININE 1.29 m g/dL 06/06/2019 [facility] [address] COMPREHENSIVE METABOLIC PANEL 21495 eGFR NON-AFR. CANADIAN 58 mL/min/1.73m2 06/06/2019 [facility] [address] COMPREHENSIVE METABOLIC PANEL 45841 eGFR 67 mL/min/1.73m2 06/06/2019 [facility] [address] COMPREHENSIVE METABOLIC PANEL 35116 BUN/CREATININE RATIO 17 (calc) 06/06/2019 [facility] [address] COMPREHENSIVE METABOLIC PANEL 63275 SODIUM 138 mm ol/L 06/06/2019 [facility] [address] COMPREHENSIVE METABOLIC PANEL 06687 POTASSIUM 4.2 mm ol/L 06/06/2019 [facility] [address] COMPREHENSIVE METABOLIC PANEL 15823 CHLORIDE 101 mm ol/L 06/06/2019 [facility] [address] COMPREHENSIVE METABOLIC PANEL 98747 CARBON DIOXIDE 29 mmol/L 06/06/2019 [facility] [address] COMPREHENSIVE METABOLIC PANEL 00627 CALCIUM 9.6 mg /dL 06/06/2019 [facility] [address] COMPREHENSIVE METABOLIC PANEL 57942 PROTEIN, TOTAL 6. 9 g/dL 06/06/2019 [facility] [address] COMPREHENSIVE METABOLIC PANEL 75188 ALBUMIN 4.4 g/ dL 06/06/2019 [facility] [address] COMPREHENSIVE METABOLIC PANEL 91937 GLOBULIN 2.5 g/ dL(calc) 06/06/2019 [facility] [address] COMPREHENSIVE METABOLIC PANEL 64978 ALBUMIN/GLOBULIN RATIO 1.8 (calc) 06/06/2019 [facility] [address] COMPREHENSIVE METABOLIC PANEL 63751 BILIRUBIN, TOTAL 0.7 mg/dL 06/06/2019 [facility] [address] COMPREHENSIVE METABOLIC PANEL 93688 ALKALINE PHOSPHATASE 45 U/L 06/06/[address] [address] COMPREHENSIVE METABOLIC PANEL 29912 AST 21 U/L 06/06/2019 [facility]ostics[facility] [address] [address] COMPREHENSIVE METABOLIC PANEL 97426 ALT 34 U/L 06/06/2019 [facility] [address] [address] CULTURE, URINE, ROUTINE 395 CULTURE, URINE, ROUTINE SEE NOTE 04/23/2019 [facility]osticsWis[facility] [address] [address] CULTURE, URINE, ROUTINE 395 CULTURE SEE NOTE 0 04/23/2019 [facility] [address] [address] EXTRA 1014 EXTRA TUBE RECEIVED 04/22 [facility] [address] [address] EXTRA 1014 SPECIMEN TYPE RECEIVED: LAV 0 04/22/2019 [facility] Becerra [address] [place] [address] COMPREHENSIVE METABOLIC PANEL 63831 Glucose 94 mg/ dL 04/22/2019 [facility] [address] [address] COMPREHENSIVE METABOLIC PANEL 01569 UREA NITROGEN (BUN) 20 mg/dL 04/22/2019 [facility] [address] [address] COMPREHENSIVE METABOLIC PANEL 25855 CREATININE 1.30 m g/dL 04/22/2019 [facility] [address] [address] COMPREHENSIVE METABOLIC PANEL 55704 eGFR NON-AFR. CANADIAN 58 mL/min/1.73m2 04/22/2019 [facility] [address] [address] COMPREHENSIVE METABOLIC PANEL 93463 eGFR 67 mL/min/1.73m2 04/22/2019 [facility] [address] [address] COMPREHENSIVE METABOLIC PANEL 28995 BUN/CREATININE RATIO 15 (calc) 04/22/2019 [facility] [address] [address] COMPREHENSIVE METABOLIC PANEL 28864 SODIUM 139 mm ol/L 04/22/2019 [facility] [address] [address] COMPREHENSIVE METABOLIC PANEL 82680 POTASSIUM 4.2 mm ol/L 04/22/[address] [facility] [address] COMPREHENSIVE METABOLIC PANEL 72333 CHLORIDE 104 mm ol/L 04/22/2019 [facility] [address] COMPREHENSIVE METABOLIC PANEL 39600 CARBON DIOXIDE 27 mmol/L 04/22/2019 [facility] [address] COMPREHENSIVE METABOLIC PANEL 07193 CALCIUM 9.9 mg /dL 04/22/2019 [facility] [address] COMPREHENSIVE METABOLIC PANEL 05272 PROTEIN, TOTAL 7. 1 g/dL 04/22/2019 [facility] [address] COMPREHENSIVE METABOLIC PANEL 97880 ALBUMIN 4.6 g/ dL 04/22/2019 [facility] [address] COMPREHENSIVE METABOLIC PANEL 12306 GLOBULIN 2.5 g/ dL(calc) 04/22/[address] [address] COMPREHENSIVE METABOLIC PANEL 35338 ALBUMIN/GLOBULIN RATIO 1.8 (calc) 04/22/2019 [facility] [address] COMPREHENSIVE METABOLIC PANEL 33338 BILIRUBIN, TOTAL 0.4 mg/dL 04/22/2019 [facility] [address] COMPREHENSIVE METABOLIC PANEL 46236 ALKALINE PHOSPHATASE 53 U/L 04/22/[address] [facility] [address] COMPREHENSIVE METABOLIC PANEL 24838 AST 21 U/L 04/22/2019 [facility] [address] COMPREHENSIVE METABOLIC PANEL 50475 ALT 34 U/L 04/22/2019 [facility] [address] CULTURE, URINE, ROUTINE 395 CULTURE, URINE, ROUTINE SEE NOTE 01/31/[address] [address] Procedures Procedure Codes Date CULTURE, THROAT CPT-4: 16174 12/30/2019 CULTURE, AEROBIC BACTERIA CPT-4: 86519 10/27/2019 URINALYSIS NONAUTO W/O SCOPE CPT-4: 09613 10/02/2019 URINE CULTURE/ COLONY COUNT CPT-4: 24774 10/02/2019 ROUTINE VENIPUNCTURE CPT-4: 24950 08/13/2019 URINALYSIS NONAUTO W/O SCOPE CPT-4: 11723 08/13/2019 CULTURE, URINE, ROUTINE CPT-4: 395 08/13/2019 COMPREHENSIVE METABOLIC PANEL CPT-4: 49059 08/13/2019 CBC (H/H, RBC, INDICES, WBC, PLT) CPT-4: 81272 2018 COMPREHENSIVE METABOLIC PANEL CPT-4: 00209 06/05/2019 MAGNESIUM CPT-4: 72908 06/05/2019 DEXAMETHASONE SODIUM PHOS CPT-4: J1100 05/21/2019 THER/PROPH/DIAG INJ SC/IM CPT-4: 73974 05/21/2019 TRIAMCINOLONE ACET INJ NOS CPT-4: J3301 05/21/2019 ROUTINE VENIPUNCTURE CPT-4: 30975 04/21/2019 COMPREHENSIVE METABOLIC PANEL CPT-4: 63660 04/21/2019 EXTRA CPT-4: 1014 04/21/2019 CULTURE, URINE, ROUTINE CPT-4: 395 04/21/2019 URINALYSIS NONAUTO W/O SCOPE CPT-4: 87992 04/21/2019 URINALYSIS NONAUTO W/O SCOPE CPT-4: 38112 01/29/2019 CULTURE, URINE, ROUTINE CPT-4: 395 01/29/2019 DRAIN/INJECT JOINT/BURSA CPT-4: 86854 02/19/2018 TRIAMCINOLONE ACET INJ NOS CPT-4: J3301 02/19/2018 DEXAMETHASONE SODIUM PHOS CPT-4: J1100 02/19/2018 THER/PROPH/DIAG INJ SC/IM CPT-4: 25595 02/12/2018 TRIAMCINOLONE ACET INJ NOS CPT-4: J3301 02/12/2018 DEXAMETHASONE SODIUM PHOS CPT-4: J1100 02/12/2018 CEFTRIAXONE SODIUM INJECTION CPT-4: J0696 12/03/2017 THER/PROPH/DIAG INJ SC/IM CPT-4: 62913 12/03/2017 THER/PROPH/DIAG INJ SC/IM CPT-4: 77910 12/03/2017 METHYLPREDNISOLONE INJECTION CPT-4: J2930 12/03/2017 URINALYSIS NONAUTO W/O SCOPE CPT-4: 73604 08/13/2017 STREP A ASSAY W/OPTIC CPT-4: 49499 02/13/2017 DESTRUCT PREMALG LESION (Cryosurgery) CPT-4: 16188 Vital Signs Date Vital 12/30/2019 Temperature: 36.9 (C) / 98.4 (F) 10/27/2019 Blood Pressure 1: 138/79 Code: 8480-6 Heart Rate 1: 82 bpm Respiratory Rate: 16 bpm SpO2: 97% Temperature: 36.8 (C) / 98.2 (F) We ight: 210 lbs 10/02/2019 Blood Pressure 1: 114/70 Code: 8480-6 Heart Rate 1: 60 bpm Respiratory Rate: 20 bpm SpO2: 96% Temperature: 36.7 (C) / 98.1 (F) We ight: 209 lbs 08/25/2019 Blood Pressure 1: 122/78 Code: 8480-6 Heart Rate 1: 74 bpm Respiratory Rate: 20 bpm SpO2: 95% 08/13/2019 Blood Pressure 1: 128/80 Code: 8480-6 Heart Rate 1: 64 bpm Respiratory Rate: 16 bpm SpO2: 96% Temperature: 37.2 (C) / 98.9 (F) We ight: 210 lbs 07/03/2019 Blood Pressure 1: 126/82 Code: 8480-6 Heart Rate 1: 68 bpm Respiratory Rate: 18 bpm SpO2: 96% Temperature: 37.3 (C) / 99.2 (F) We ight: 212 lbs 06/05/2019 Blood Pressure 1: 118/72 Code: 8480-6 Heart Rate 1: 65 bpm SpO2: 99% Temperature: 36.5 (C) / 97.7 (F) Weight: 217 lbs 05/21/2019 Blood Pressure 1: 138/86 Code: 8480-6 Heart Rate 1: 75 bpm SpO2: 98% Temperature: 36.4 (C) / 97.6 (F) Weight: 217 lbs 02/24/2019 Blood Pressure 1: 100/70 Code: 8480-6 Heart Rate 1: 63 bpm Respiratory Rate: 20 bpm SpO2: 93% Temperature: 37.1 (C) / 98.7 (F) We ight: 213 lbs 02/04/2019 Blood Pressure 1: 120/78 Code: 8480-6 Heart Rate 1: 86 bpm Respiratory Rate: 18 bpm SpO2: 94% Temperature: 36.7 (C) / 98.0 (F) We ight: 213 lbs 01/29/2019 Blood Pressure 1: 122/80 Code: 8480-6 Heart Rate 1: 88 bpm Respiratory Rate: 20 bpm SpO2: 93% Temperature: 37.7 (C) / 99.9 (F) We ight: 224 lbs 8 oz 12/19/2018 Blood Pressure 1: 114/62 Code: 8480-6 Heart Rate 1: 68 bpm Respiratory Rate: 20 bpm SpO2: 95% Temperature: 37.2 (C) / 99.0 (F) We ight: 224 lbs 11/11/2018 Blood Pressure 1: 128/78 Code: 8480-6 BMI: 36.0 Code: 98690-5 Heart Rate 1: 68 bpm Height: 5'7" Respiratory Rate: 20 bpm SpO2: 95% Tempera ture: 36.8 (C) / 98.3 (F) Weight: 230 lbs 10/09/2018 Blood Pressure 1: 138/82 Code: 8480-6 Heart Rate 1: 78 bpm Respiratory Rate: 18 bpm SpO2: 96% Temperature: 37.1 (C) / 98.8 (F) We ight: 226 lbs 02/19/2018 Blood Pressure 1: 140/86 Code: 8480-6 Heart Rate 1: 84 bpm SpO2: 95% Temperature: 36.7 (C) / 98.1 (F) Weight: 218 lbs 02/12/2018 Blood Pressure 1: 138/86 Code: 8480-6 BMI: 35.6 Code: 17711-0 Heart Rate 1: 68 bpm Height: 5'7" SpO2: 95% Temperature: 36.6 (C) / 97.8 (F) Weight: 227 lbs 12/03/2017 Blood Pressure 1: 134/84 Code: 8480-6 BMI: 34.3 Code: 25376-6 Heart Rate 1: 68 bpm Height: 5'7" Respiratory Rate: 20 bpm SpO2: 96% Tempera ture: 35.9 (C) / 96.6 (F) Weight: 219 lbs 09/11/2017 Blood Pressure 1: 140/86 Code: 8480-6 BMI: 34.9 Code: 92962-0 Heart Rate 1: 84 bpm Height: 5'7" Respiratory Rate: 20 bpm SpO2: 95% Tempera ture: 36.7 (C) / 98.1 (F) Weight: 223 lbs 08/13/2017 Blood Pressure 1: 142/94 Code: 8480-6 BMI: 34.5 Code: 14364-5 Heart Rate 1: 76 bpm Height: 5'7" Respiratory Rate: 20 bpm SpO2: 96% Tempera ture: 37.1 (C) / 98.8 (F) Weight: 220 lbs 11/17/2016 Blood Pressure 1: 118/78 Code: 8480-6 He art Rate 1: 64 bpm 07/19/2016 Blood Pressure 1: 112/58 Code: 8480-6 BMI: 31.6 Code: 20360-5 Heart Rate 1: 88 bpm Height: 5'7" Respiratory Rate: 22 bpm SpO2: 98% Tempera ture: 36.3 (C) / 97.4 (F) Weight: 202 lbs 06/09/2016 Blood Pressure 1: 138/84 Code: 8480-6 BMI: 32.1 Code: 55674-5 Heart Rate 1: 58 bpm Height: 5'7" Respiratory Rate: 20 bpm SpO2: 97% Tempera ture: 36.6 (C) / 97.8 (F) Weight: 205 lbs 11/08/2015 Blood Pressure 1: 142/80 Code: 8480-6 BMI: 32.4 Code: 60507-5 Heart Rate 1: 76 bpm Height: 5'7" Respiratory Rate: 20 bpm Temperature: 36 .6 (C) / 97.9 (F) Weight: 207 lbs 06/14/2015 Blood Pressure 1: 126/80 Code: 8480-6 Heart Rate 1: 84 bpm Respiratory Rate: 20 bpm Temperature: 36.8 (C) / 98.2 (F) Weight: 206 lbs 05/18/2015 Blood Pressure 1: 124/80 Code: 8480-6 BMI: 32.3 Code: 21938-4 Heart Rate 1: 68 bpm Height: 5'7" Respiratory Rate: 20 bpm Temperature: 36 .4 (C) / 97.6 (F) Weight: 206 lbs 02/22/2015 Blood Pressure 1: 126/78 Code: 8480-6 BMI: 32.1 Code: 97657-9 Heart Rate 1: 76 bpm Height: 5'7" Respiratory Rate: 20 bpm Temperature: 36 .6 (C) / 97.9 (F) Weight: 205 lbs 12/02/2014 Blood Pressure 1: 124/80 Code: 8480-6 BMI: 32.7 Code: 64179-0 Heart Rate 1: 70 bpm Height: 5'7" Respiratory Rate: 18 bpm Temperature: 36 .6 (C) / 97.9 (F) Weight: 209 lbs 08/18/2014 Blood Pressure 1: 132/94 Code: 8480-6 BMI: 34.5 Code: 63909-0 Heart Rate 1: 84 bpm Height: 5'6" Respiratory Rate: 20 bpm Temperature: 36 .6 (C) / 97.9 (F) Weight: 217 lbs 07/08/2014 Blood Pressure 1: 142/88 Code: 8480-6 BMI: 34.3 Code: 53515-5 Heart Rate 1: 72 bpm Height: 5'6" Respiratory Rate: 20 bpm Temperature: 36 .8 (C) / 98.2 (F) Weight: 216 lbs Functional Status No Functional Status data Reason For Visit Reason For Visit Effective Dates Notes sore throat 12/19/2019 cyst 10/27/2019 left shoulder blade follow up 10/02/2019 chest pain/pressure 08/25/2019 frequent urination 08/13/[address] Braga yearly however not due back to see him until next year follow up 07/03/2019 Discuss recent labs pain 06/05/2019 pruritus 05/21/2019 patient states that he is itchy all over. States that it is worse during the evening time. patient reports that it started a month ago. edema 04/21/2019 follow up 02/24/2019 ER follow up - Diver ticulosis/Diverticulitis ~generic 02/04/2019 diverticulitis pelvic pain 01/29/2019 hurts when his bladd er is full rash 12/19/2018 follow up 11/11/2018 well man exam (40-65 years) 10/09/2018 right knee h as been causing issues again knee pain 02/19/2018 right knee, here for a joint injection. symptoms havent changed. been doing ice pack in evening, compression & elevating when he can hip pain 02/12/2018 right side. started couple months ago, has gotten better but still acts up on & off. k follow up 12/03/2017 Patient currently on Quinapril 40mg daily follow up 09/11/2017 Annual Checkup 08/13/2017 Wellness Physical, l ast normal colonoscopy was with Dr Saini---does have family history of GI disorders and colonic polyps. Patient has some yellowish anal leakageh sore throat 02/13/2017 blood pressure check 11/17/2016 well man exam (40-65 years) 07/19/2016 Wellness back pain 06/09/2016 Middle back follow up 11/08/2015 Diagnosed with sever e UTI and currently on cipro and bactrim follow up 06/14/2015 skin lesion 05/18/2015 abdominal pain 02/22/2015 follow up 12/02/2014 skin lesion 08/18/2014 ~generic 07/08/2014 New Patient/Establis rhonda Visit Encounters Encounter Performer Location Codes Date () NURSE/OUTPATIENT VISIT EST Diagnosis: Sore throat[ICD10: J02.9] Sapna HASSAN [place] CPT-4: 65842 12/30/2019 ([id number]) OFFICE/OUTPATIENT VISIT EST Diagnosis: Allergic rhinitis[ICD10: J30.9] Diagnosis: Postnasal drip[ICD10: R09.82] Sapna Salas CPT-4: 14634 12/19/2019 ([id number]) NO CHARGE Diagnosis: Infected sebaceous cyst[ICD10: L72.3] Sapna LIVE DO [facility] CPT-4: 52570 11/03/2019 ([id number]) OFFICE/OUTPATIENT VISIT EST Diagnosis: Disorder of the skin and subcutaneous tissue, unspecified[ICD10: L98.9] Diagnosis: Infected sebaceous cyst[ICD10: L72.3] Diagnosis: Local infection of the skin and subcutaneous tissue, unspecified[ICD10: L08.9] Lashell LIVE DO [facility] CPT-4 : 79292 10/27/2019 ([id number]) OFFICE/OUTPATIENT VISIT EST Diagnosis: Suprapubic abdominal pain[ICD10: R10.2] Diagnosis: Aortic regurgitation[ICD10: I35.1] Sapna LIVE DO [facility] CPT-4: 11992 10/02/2019 ([id number]) OFFICE/OUTPATIENT VISIT EST Diagnosis: Chest pain[ICD10: R07.9] Lashell BETANCUR [facility] CPT-4: 48633 08/25/2019 ([id number]) OFFICE/OUTPATIENT VISIT EST Diagnosis: Thoracic back pain[ICD10: M54.6] Diagnosis: Disorder of kidney and ureter, unspecified[ICD10: N28.9] Diagnosis: Personal history of nicotine dependence[ICD10: Z87.891] 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] Lashell AU DO [facility] CPT-4: 07630 08/13/2019 ([id number]) OFFICE/OUTPATIENT VISIT EST Diagnosis: Sigmoid diverticulitis[ICD10: K57.32] Diagnosis: Renal insufficiency[ICD10: N28.9] Diagnosis: Jock itch[ICD10: B35.6] Sapna PARDO [facility] CPT-4: 73333 07/03/2019 ([id number]) OFFICE/OUTPATIENT VISIT EST Diagnosis: Cramp and spasm[ICD10: R25.2] Diagnosis: Disorder of kidney and ureter, unspecified[ICD10: N28.9] Lashell LIVE DO [facility] CPT-4: 06174 06/05/2019 ([id number]) OFFICE/OUTPATIENT VISIT EST Diagnosis: Other pruritus[ICD10: L29.8] Diagnosis: Pain in right knee[ICD10: M25.561] Lashell LIVE DO [facility] CPT-4: 27145 05/21/2019 ([id number]) NURSE/OUTPATIENT VISIT EST Diagnosis: Edema, unspecified[ICD10: R60.9] Sapna LIVE DO [facility] CPT-4: 56665 04/21/2019 ([id number]) OFFICE/OUTPATIENT VISIT EST Diagnosis: Diverticulitis of large intestine without perforation or abscess without bleeding[ICD10: K57.32] Diagnosis: Snoring[ICD10: R06.83] Diagnosis: Other constipation[ICD10: K59.09] Lashell LIVE Laiyaoyao [facility] CPT-4: 74787 02/24/2019 ([id number]) OFFICE/OUTPATIENT VISIT EST Diagnosis: Diverticulitis of large intestine without perforation or abscess with bleeding[ICD10: K57.33] Nancy LIVE DO [facility] CPT-4: 11371 02/04/2019 ([id number]) OFFICE/OUTPATIENT VISIT EST Diagnosis: Left lower quadrant pain[ICD10: R10.32] aNncy LIVE DO [facility] CPT-4: 62130 01/29/2019 OFFICE/OUTPATIENT VISIT EST Diagnosis: Dermatitis, unspecified[ICD10: L30.9] Diagnosis: Gastro-esophageal reflux disease without esophagitis[ICD10: K21.9] Diagnosis: Palpitations[ICD10: R00.2] Sapna AU Laiyaoyao [facility] CPT-4: 23625 12/19/2018 ([id number]) OFFICE/OUTPATIENT VISIT EST Diagnosis: Gastro-esophageal reflux disease without esophagitis[ICD10: K21.9] Diagnosis: Dysphagia, pharyngoesophageal phase[ICD10: R13.14] Sapna LIVE Laiyaoyao [facility] CPT-4: 66739 11/11/2018 ([id number]) PREV VISIT EST AGE 40-64 Diagnosis: Encounter for general adult medical examination without abnormal findings[ICD10: Z00.00] Diagnosis: Other intervertebral disc degeneration, 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] Diagnosis: Essential (primary) hypertension[ICD10: I10] Diagnosis: Mixed hyperlipidemia[ICD10: E78.2] Diagnosis: Gastro-esophageal reflux disease without esophagitis[ICD10: K21.9] Diagnosis: Personal history of nicotine dependence[ICD10: Z87.891] Diagnosis: Encounter for screening for malignant neoplasm of respiratory organs[ICD10: Z12.2] Diagnosis: Other postprocedural complications and disorders of digestive system[ICD10: K91.89] Lashell LIVE Laiyaoyao [facility] CPT-4: 99 396 10/09/2018 ([id number]) OFFICE/OUTPATIENT VISIT EST Diagnosis: Pain in right knee[ICD10: M25.561] Diagnosis: Pain in right hip[ICD10: M25.551] Lashell LIVE DO [facility] CPT-4: 07935 02/12/2018 OFFICE/OUTPATIENT VISIT EST Diagnosis: Essential (primary) hypertension[ICD10: I10] Diagnosis: Other chest pain[ICD10: R07.89] Lashell LIVE DO [facility] CPT-4: 17991 12/03/2017 ([id number]) OFFICE/OUTPATIENT VISIT EST Diagnosis: Essential (primary) hypertension[ICD10: I10] Sapna LIVE DO [facility] CPT-4: 01926 09/11/2017 ([id number]) PREV VISIT EST AGE 40-64 Diagnosis: Encounter for general adult medical examination without abnormal findings[ICD10: Z00.00] Diagnosis: Essential (primary) hypertension[ICD10: I10] Diagnosis: Left lower quadrant pain[ICD10: R10.32] Diagnosis: Left upper quadrant pain[ICD10: R10.12] Diagnosis: Other intervertebral disc degeneration, 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] Sapna LIVE Laiyaoyao [facility] CPT-4: 25829 08/13/2017 ([id number]) OFFICE/OUTPATIENT VISIT EST Diagnosis: Acute pharyngitis, unspecified[ICD10: J02.9] Sapna LIVE [place] CPT-4: 23741 02/13/2017 ([id number]) PREV VISIT EST AGE 40-64 Diagnosis: Encounter for general adult medical examination without abnormal findings[ICD10: Z00.00] Diagnosis: Essential (primary) hypertension[ICD10: I10] 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 C[facility]: 01799 06/09/2016 OFFICE/OUTPATIENT VISIT EST Diagnosis: Retention of urine, unspecified[ICD10: R33.9] Diagnosis: Urinary tract infection, site not specified[ICD10: N39.0] [facility] 53050 11/08/2015 ([id number]) OFFICE/OUTPATIENT VISIT EST Diagnosis: DERMATITIS NOS[ICD9: 692.9] Diagnosis: SEBACEOUS CYST[ICD9: 706.2] Sapna Snyder [facility] CPT-4: 88187 06/14/2015 OFFICE/OUTPATIENT VISIT EST Diagnosis: LOCAL SKIN INFECTION[ICD9: 686.9] Diagnosis: FOLLICULITIS[ICD9: 704.8] Chelsie [facility] CPT-4: 64723 05/18/2015 ([id number]) OFFICE/OUTPATIENT VISIT EST Diagnosis: Constipation[ICD9: 564.00] Sapna [facility] CPT-4: 66003 02/22/2015 ([id number]) OFFICE/OUTPATIENT VISIT EST Diagnosis: Thoracic back pain[ICD9: 724.1] Diagnosis: 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 CANDICE [facility] 50892 07/08/2014 (03515) OFFICE/OUTPATIENT VISIT NEW Diagnosis: HYPERTENSION[ICD9: 401.9] Diagnosis: GERD[ICD9: 530.81] Sapna SHAHQUELINE [facility] [employer] [facility] [employer] CPT-4: 61635 07/08/2014 Plan of Care Planned Activity Notes Codes Status Date Appointment: Sapna Live WPtel: [address] [place] [address] LAB 12/30/2019 Visit Diagnosis Plan: Allergic rhinitis Discussion: Cl aritin 10mg po BID Call Sunday with how symptoms are doing Will also add famotodine at bedtime to cover for reflux etiology ICD-9 : 477.9 ICD-10 : J30.9 12/19/2019 Appointment: Sapna Live WPtel: [address] [place] [address] TELEMEDICINE 12/19/2019 Patient Education: famotidine- Optimize[employer] Coupon [id number] [email or web address]/[email or web address] Completed 12/19/2019 Visit Diagnosis Plan: Infected sebaceous cyst Discussi on: Sent out 1 week of doxycycline ICD-9 : 706.2 ICD-10 : L72.3 11/03/2019 Appointment: Sapna Live WPtel: [address] [place] [address] WOUND CARE 11/03/2019 Visit Diagnosis Plan: Local infection of the skin and subcutaneous tissue, unspecified Discussion: area was drained with palpat ion due to small opening of wound. thick discharge was removed along with cyst material. bactrim was prescribed to start today and wound culture was obtained. rtc in 2 weeks once infection is gone and we will remove the cyst again in office. call before then with new or worsening symptoms. ICD-10 : L08.9 10/27/2019 Appointment: Lashell Joe [address] [place] [address] ACUTE ILLNESS 10/27/2019 Patient Education: tramadol- [employer] Coupon [id number] [email or web address] Completed 10/27/2019 Visit Plan: Update Low Dose CT scan of l ungs 10/02/2019 Visit Diagnosis Plan: Suprapubic abdominal pain Discus edvin: Improving Culture urine ICD-9 : 789.09 ICD-10 : R10.2 10/02/2019 Visit NOS Plan: Plan Notes: Update Low Dose CT scan of ming... 10/02/2019 Visit Diagnosis Plan: Aortic regurgitation Discussion: Referral to Cardiology ICD-9 : 424.1 ICD-10 : I35.1 10/02/2019 Appointment: Sapna Live WPtel: [address] [facility] FOLLOW UP 10/02/2019 Care Plan: Referral Order SNOMED-CT : [id number] Pending 10/02/2019 Visit Diagnosis Plan: Chest pain Discussion: will star t with cxray and rib xray. discussed that could be lung, rib, muscle but will start with cxray and patient may need echo. he verbalized understanding. ICD-9 : 786.50 ICD-10 : R07.9 08/25/2019 Appointment: Lashell Joe [address] [facility] ACUTE ILLNESS 08/25/2019 Visit Diagnosis Plan: Disorder of kidney and ureter, u nspecified Discussion: will update cmp and urine culture. discussed with patient that the labs which were abnormal were most likely that way due to dehydration. educated patient that all the additional tests which were neg, would've shown a serious issue. instructed patient that he needs to push the fluids more. he verbalized understanding. ICD-9 : 593.9 ICD-10 : N28.9 08/13/2019 Visit Diagnosis Plan: Thoracic back pain Discussion: c hronic pain. will refer to dr. stallings at [facility] for evaluation and treatment ICD-9 : 724.1 ICD-10 : M54.6 08/13/2019 Visit Diagnosis Plan: Personal history of nicotine dep endence Discussion: patient adament about having updated ct of lungs. discussed with patient that was recommended to have done in 12 months which would be september and it may not be covered and may not be completed. patient would like an order sent anyway to hospital. will order low dose ct of lungs to be done at [facility]. ICD-9 : V15.82 ICD-10 : Z87.891 08/13/2019 Visit Diagnosis Plan: Adrenal mass Discussion: patient had ct in january but there was no mention of adrenal mass and reported adrenals as wnl. i called radiology and spoke with dr. logan radiologist who looked at the scan again and noted the adrenal mass to be stable with no change. ICD-9 : 255.8 ICD-10 : E27.8 08/13/2019 Appointment: Lashell Joe [facility] [employer] [facility] [place] FOLLOW UP 08/13/2019 Visit Diagnosis Plan: Sigmoid diverticulitis Discussio n: Bactrim/Flagyl [place] diet To ER this weekend if worsening ICD-9 : 562.11 ICD-10 : K57.32 07/03/2019 Visit Diagnosis Plan: Jock itch Discussion: Diflucan a nd topical nystatin ICD-9 : 110.3 ICD-10 : B35.6 07/03/2019 Visit Diagnosis Plan: Renal insufficiency Discussion: Labs discussed Continue off NSAIDS Hydrate Recheck Chemistry 3mos ICD-9 : 593.9 ICD-10 : N28.9 07/03/2019 Appointment: Sapna Live WPtel: [address] [facility] [place] FOLLOW UP 07/03/2019 Patient Education: fluconazole- [employer] Coupon [id number] Completed 07/03/2019 Patient Education: nystatin- [employer] Coupon [id number] Completed 07/03/2019 Visit Diagnosis Plan: Disorder of kidney and ureter, u nspecified Discussion: update cmp. ICD-9 : 593.9 ICD-10 : N28.9 06/05/2019 Visit Diagnosis Plan: Cramp and spasm Discussion: inst ructed to take protonix once daily instead of bid as this medication can cause low magnesium. increase vitamin d to 3000 units daily. will update cmp since he had decreased kidney fun ction recently. mg ordered also ICD-9 : 729.82 ICD-10 : R25.2 06/05/2019 Appointment: Lashell Joe 504 [employer] [facility] NO SHOW - FORGIVEN 06/05/2019 [facility] [facility] 06/05/2019 Visit Diagnosis Plan: Pain in right knee Discussion: w ill refer to dr. felix due to recurrent issues. ICD-9 : 719.46 ICD-10 : M25.561 05/21/2019 Visit Diagnosis Plan: Other pruritus Discussion: discu ssed with patient that if was r/t mite infestation, he will continue to itch for up to a week after treatment. kenalog/dexa given in office to assist with itching and hydroxyzine prescribed for prn use. instructed to call office if no improvement or with any worsening. instructed to wash sheets/blankets in hot water and vacuum entire house to rid any remaining factors. patient denies being bit by any ticks but discussed that if continues, may need alpha gal test. ICD-9 : 698.9 ICD-10 : L29.8 05/21/2019 Appointment: Lashell Joe [address] [facility] [place] [facility] ACUTE ILLNESS 05/21/2019 Patient Education: hydroxyzine HCl- Optimize[employer] Coupon [id number] [email or web address]/getResource/[email or web address] Completed 05/21/2019 Appointment: Sapna Live WPtel: [address] [place], [place] [phone] 05/19/19 1645---see note put in chart today (km) CANCELED 05/19/2019 Appointment: Sapna Live WPtel: [address] [place], [place] [phone] [place] CANCELED 05/05/2019 Appointment: Sapna Live WPtel: [address] [place], [place] [phone] UA 04/21/2019 Visit Diagnosis Plan: Diverticulitis of large intestine without perforation or abscess without bleeding Discussion: continue with antibiotics as prescribed. increase fluid intake and bland diet until symptoms improve. if pain worsens any or does not improve by later this week, call clinic and may require iv antibiotics. needs to follow up with surgeon due to recurrent issue of diverticulitis, will set up with dr. bettencourt. ICD-9 : 562.11 ICD-10 : K57.32 02/24/2019 Visit Diagnosis Plan: Snoring Discussion: referral to be sent to dr. georges ent for sleep study due to severity of snoring. ICD-9 : 786.09 ICD-10 : R06.83 02/24/2019 Visit Diagnosis Plan: Other constipation Discussion: i ncrease fluid and fiber intake. if no bowel movement in 2 days or if worsening pain, call clinic. ICD-9 : 564.00 ICD-10 : K59.09 02/24/2019 Appointment: Lashell Joe [address] [place] [address] Hospital Follow Up 02/24/2019 Visit Diagnosis Plan: Diverticulitis of large intestine without perforation or abscess with bleeding Discussion: Continue flagyl and cipro. A dvance diet to bland. BRAT diet advised. Avoid nuts, seeds, popcorn, roughage. RTC if abdominal pain worsens or does not improve. ICD-9 : 562.13 ICD-10 : K57.33 02/04/2019 Appointment: Nancy Mendiola [facility] [id number] FOLLOW UP 02/04/2019 Visit Diagnosis Plan: Left lower quadrant pain Discuss ion: CT abdomen and pelvis- pending. Continue Bactrim. UA shows trace hematuria- will r/o kidney stone vs. diverticulitis. Urine sent for culture. Patient instructed to go to ED tonight with worsening symptoms. No work until called with results of CT scan. Patient states understanding. ICD-9 : 789.04 ICD-10 : R10.32 01/29/2019 Appointment: Nancy Mendiola [facility] ACUTE ILLNESS 01/29/2019 Care Plan: CT PELVIS W/O DYE LOINC : 361 08-9 Pending 01/29/2019 Care Plan: CT ABDOMEN W/O DYE LOINC : 36 103-0 Pending 01/29/2019 Visit Diagnosis Plan: Palpitations Discussion: Discuss ed stress test as next option since only happens occasionally and does not last long enough to get to ER or doctor during an episode so will plan on scheduling this after EGD compl ete with results ICD-9 : 785.1 ICD-10 : R00.2 12/19/2018 Visit Diagnosis Plan: Dermatitis, unspecified Discussi on: Discussed that the recent rash to his right arm sounds like eczema/contact dermatitis as it was red and dry according to patient and only lasted a few days then went away so will monitor for return ICD-9 : 692.9 ICD-10 : L30.9 12/19/2018 Visit Diagnosis Plan: Gastro-esophageal reflux disease without esophagitis Discussion: Gets EGD next week so will await results ICD-9 : 530.81 ICD-10 : K21.9 12/19/2018 Appointment: Sapna Live WPtel: [address] [place], [place] [id number] ACUTE ILLNESS 12/19/2018 Visit Diagnosis Plan: Gastro-esophageal reflux disease without esophagitis Discussion: Continue protonix at 40mg daily Hold mobic No NSAIDS Hold all MVs If persists then will need EGD ICD-9 : 530.81 ICD-10 : K21.9 11/11/2018 Appointment: Sapna Live WPtel: [address] [facility] FOLLOW UP 11/11/2018 Visit Diagnosis Plan: Encounter for [facility] adult medical examination without abnormal findings Discussion: up to date on labs. had infl uenza vaccine this season. see other plans for more detailed report. ICD-9 : V70.9 ICD-10 : Z00.00 10/09/2018 Visit Diagnosis Plan: Gastro-esophageal reflux disease without esophagitis Discussion: protonix bid ordered to assist with symptom management. discussed with patient that he should have EGD due to symptoms and hx of hiatal hernia seen on previous cts. patient defers at this time. instructed to follow up in 1 month and will assess efficacy of protonix and evaluate hiatal hernia on low dose ct screening. patient verbalized understanding. if no improvement in 1 month, will proceed with EGD referral. ICD-9 : 530.81 ICD-10 : K21.9 10/09/2018 Visit Diagnosis Plan: Other intervertebral disc degene ration, thoracic region Discussion: increase gabapentin to 600 mg at hs. 300 mg had worked initially for a short time but discussed with patient that body may have become tolerant of medication and increase is needed. ICD-9 : 722.51 ICD-10 : M51.34 10/09/2018 Visit Diagnosis Plan: Encounter for scre ening for malignant neoplasm of respiratory organs Discussion: low dose ct scan ordered to assess for any malignancies. ICD-9 : V76.0 ICD-10 : Z12.2 10/09/2018 Visit Diagnosis Plan: Personal history of nicotine dep endence Discussion: low dose ct ordered ICD-9 : V15.82 ICD-10 : Z87.891 10/09/2018 Visit Diagnosis Plan: Essential (primary) hypertension Discussion: stable. continue with current medications. ICD-9 : 401.9 ICD-10 : I10 10/09/2018 Visit Diagnosis Plan: Other postprocedur al complications and disorders of digestive system Discussion: continue with gold maria teresa barrow. instructed patient to return to dr. bettencourt due to recurrent issues. instructed patient that we can wait until next follow up to determine if egd is needed as well with referral. patient verbalized understanding. patient was instructed on how to do kegel exercises at home with informational packet given to him as well to do throughout the day to help strengthen his sphincter muscles. ICD-9 : 997.49 ICD-10 : K91.89 10/09/2018 Appointment: Lashell Joe [address] [facility] Annual Well Visit 10/09/2018 Patient Education: gabapentin- [employer] Coupon [id number] Completed 10/09/2018 Patient Education: Kegel Exercises Comple catalina 10/09/2018 Patient Education: High Blood Pressure Co mpleted 10/09/2018 Visit Diagnosis Plan: Pain in right knee Discussion: c orticosteroid injection administered as described above. patient tolerated well. instructed to rtc in 3- 4 months if needed for additional injection. ICD-9 : 719.46 ICD-10 : M25.561 02/19/2018 Appointment: Lashell Joe [address] [id number] OFFICE SURGERY 02/19/2018 Patient Education: Patient Medication Summary Completed 02/19/2018 Visit Diagnosis Plan: Pain in right hip Discussion: si nce hip pain is improving and knee pain is not, will focus on knee at this time and instructed to call office if hip becomes worse. ICD-9 : 719.45 ICD-10 : M25.551 02/12/2018 Visit Diagnosis Plan: Pain in right knee Discussion: k enalog/dexa given in office. instructed patient to have xray of knee performed to rule out fracture. educated patient on RICE. patient reports he has a compression brace for knee. apply ice for pain and elevate. ok to continue with tylenol prn pain. ICD-9 : 719.46 ICD-10 : M25.561 02/12/2018 Appointment: Lashell Joe [address] [place] [address] ACUTE ILLNESS 02/12/2018 Patient Education: Patient Medication Summary Completed 02/12/2018 Care Plan: X-RAY EXAM OF KNEE 1 OR 2 [place] : [address]-3 Pending 02/12/2018 Visit Diagnosis Plan: Essential (primary) hypertension Discussion: continue with current medications. continue to check bp at home and call office with worsening bp or symptoms. ICD-9 : 401.9 ICD-10 : I10 12/03/2017 Visit Diagnosis Plan: Other chest pain Discussion: ekg ordered to rule out cardiac concerns, will notify patient of any changes. ICD-9 : 786.59 ICD-10 : R07.89 12/03/2017 Appointment: Lashell Joe [address] [place] [address] ESTABLISHED PATIENT 12/03/2017 Patient Education: Patient Medication Summary Completed 12/03/2017 Visit Diagnosis Plan: Essential (primary) hypertension Discussion: Increase quinapril to 40mg daily BP check in 1month ICD-9 : 401.9 ICD-10 : I10 09/11/2017 Appointment: Sapna Live WPtel: [address] [place], [place] [phone] [place] FOLLOW UP 09/11/2017 Patient Education: Patient Medication Summary Completed 09/11/2017 Appointment: Sapna Live WPtel: [address] [place], [place] [phone] [place] RESCHEDULED 08/22/2017 Visit Diagnosis Plan: Essential (primary) hypertension Discussion: Increase quinapril to 20mg daily Follow Up: 1 months ICD-9 : 401.9 ICD-10 : I10 08/13/2017 Visit Diagnosis Plan: Encounter for [facility] adult medical examination without abnormal findings Discussion: Update fasting lab ICD-9 : V70.9 ICD-10 : Z00.00 08/13/2017 Visit Diagnosis Plan: Left lower quadrant pain Discuss ion: Update colonoscopy ICD-9 : 789.04 ICD-10 : R10.32 08/13/2017 Appointment: Sapna Live WPtel: [address] [place], [place] [phone] Annual Well Visit 08/13/2017 Patient Education: Patient Medication Summary Completed 08/13/2017 Appointment: Sapna Live WPtel: [address] [place] [phone] THROAT SWAB 02/13/2017 Patient Education: Patient Medication Summary Completed 02/13/2017 Appointment: Sapna Live WPtel: [address] [facility] BP CHECK 11/17/2016 Patient Education: Patient Medication Summary Completed 11/17/2016 Visit Plan: Due for colonoscopy in 2018 Had shingles shot and flu shot Change quinapril hct to plain quinapril and see if muscles twitches improve Fwup with Dr. Braga Lab discussed Discussed diet/exercise at length Check CT abdomen Recheck 3mos 07/19/2016 Appointment: Sapna Live WPtel: [facility] 07/18 confirmed`sl PHYSICAL 07/19/2016 Patient Education: Patient Medication Summary Completed 07/19/2016 Care Plan: CT ABDOMEN W/O DYE LOINC : 36 103-0 Pending 07/19/2016 Patient Education: Patient Medication Summary Completed 07/06/2016 Visit Plan: Discussed the back pain, whitney l try D/C of ibuprofen (no OTC meds for pain except Tylenol) and try Mobic. If not as effective, go back to ibuprofen but don't take both Skin lesions, not history indicating shingles (not painful). Did discuss getting shingles vaccine. He will check with insurance. Also Tdap if >7 years since last tetanus Needs HTN labs CMP, CBC, PSA, Lipids fasting at earliest convenience 06/09/2016 Appointment: Doreen Monrealcy WPtel: [address] [place] [address] ACUTE ILLNESS 06/09/2016 Patient Education: Patient Medication Summary Completed 06/09/2016 Referral: Demario Braga WPtel: [address] [place] [address] Referral Initiated 11/12/2015 Visit Plan: Continue indwelling catheter until follow-up with Dr. Braga Continue Bactrim and Cipro Pyridium TID for Bladder spasms 11/08/2015 Appointment: Chelsie Teixeira WPtel: [address] [place] [address] ER Follow UP 11/08/2015 Patient Education: Patient Medication Summary Completed 11/08/2015 Referral: Abdiel Tucker WPtel: [address] [place] [address] Referral Initiated 06/21/2015 Visit Plan: Prednisone 20mg daily for 1w tuscarora See surgery of cyst removal 06/14/2015 Appointment: Sapna Live WPtel: [address] [place] [address] 06/11 cn 06/14 cn FOLLOW UP 2014 Patient Education: Patient Medication Summary Completed 06/14/2015 Visit Plan: Warm moist compresses to Lef t shoulder lesion and apply topical Mupirocin twice daily Complete Cephalexin x 7 days as directed Resume Culturelle daily 05/18/2015 Appointment: Chelsie Teixeira WPtel: [address] [place], [place] [phone] ACUTE ILLNESS 05/18/2015 Patient Education: Patient Medication Summary Completed 05/18/2015 Visit Plan: Check fasting lab Use pain m eds prn with miralax on the day that takes pain meds 02/22/2015 Appointment: Sapna Live WPtel: [address] [place], [place] [phone] 02/19 vm cn 02/19 appt confirmed-lb ACUTE ILLNESS 5 Patient Education: Patient Medication Summary Completed 02/22/2015 Visit Plan: Increase neurontin to 300mg q HS Continue flexeril and tramadol Call in 1mo on how higher dose of gabapentin 12/02/2014 Appointment: Sapna Live WPtel: [address] [place] [address] FOLLOW UP 12/02/2014 Patient Education: Patient Medication Summary Completed 12/02/2014 Referral: Eric Angelo WPtel: [address] [place] [address] [place] Referral Appointment Confirmed 09/15/2014 Visit Plan: Proceed with pain doctor for possible injection vs nerve block Trial of lidoderm patch Cryotherapy to lesions as above 08/18/2014 Appointment: Sapna Live WPtel: [address] [place] [address] ACUTE ILLNESS 08/18/2014 Patient Education: Patient Medication Summary Completed 08/18/2014 Patient Education: Patient Medication Summary Completed 08/13/2014 Visit Plan: Continue current meds Obtain most recent lab results Check thoracic spine x-rays Needs updated CT scan of adrenal tumor 07/08/2014 Appointment: Sapna Live WPtel: [address] [place], [place] [phone] 07/07 vm NEW PATIENT 07/08/2014 Patient Education: Patient Medication Summary Completed 07/08/2014 Patient Education: Patient Medication Summary Completed 07/08/2014 Referral: Suhail Cardenas WPtel: [address] [id number] [place] Referral Completed Referral: Toby Bettencourt WPtel: [address] [facility] [address] [id number] [place] Referral Completed Referral: Rosario Monahan WPtel: [address] [place] Referral Appointment Requested Instructions Comment . Update Low Dose CT scan of lungs . Due for colonoscopy in 2018 Had shingles shot and flu shot Change quinapril hct to plain quinapril and see if muscles twitches improve Fwup with Dr. Braga Lab discussed Discussed diet/exercise at length Check CT abdomen Recheck 3mos . Discussed the back pain, will try D/C of ibuprofen (no OTC meds for pain except Tylenol) and try Mobic. If not as effective, go back to ibuprofen but don't take both Skin lesions, not history indicating shingles (not painful). Did discuss getting shingles vaccine. He will check with insurance. Also Tdap if >7 years since last tetanus Needs HTN labs CMP, CBC, PSA, Lipids fasting at earliest convenience . Continue indwelling catheter until fol low-up with Dr. Braga Continue Bactrim and Cipro Pyridium TID for Bladder spasms . Prednisone 20mg daily for 1week See surgery of cyst removal . Warm moist compresses to Left shoulder lesion and apply topical Mupirocin twice daily Complete Cephalexin x 7 days as directed Resume Culturelle daily . Check fasting lab Use pain meds prn with miralax on the day that takes pain meds . Increase neurontin to 300mg q HS Continue flexeril and tramadol Call in 1mo on how higher dose of gabapentin . Proceed with pain doctor for possible injection vs nerve block Trial of lidoderm patch Cryotherapy to lesions as above . Continue current meds Obtain most recent lab results Check thoracic spine x-rays Needs updated CT scan of adrenal tumor Medical Equipment No Medical Equipment data Health Concerns Section Health Concerns data not found Goals Section Goals data not found Interventions Section Interventions data not found Health Status Evaluations/Outcomes Section Health Status Evaluations/Outcomes data not found Advance Directives No Advance Directive data
--- OUTSIDE RECORDS SUMMARY | 2020-02-05 07:45 | XMS REPORT | CCD ---
Author Author Jai Live D.O. Organization [facility] Address [address] [place] [address] Phone Care Team Providers Care Bench Technician Name Role Phone Sapna Live D.O., PP Unavailable CCM Unavailable Summary Purpose Interface Exchange Insurance Providers Payer name Policy type / Coverage type Covered green party ID Effective Begin Date Effective End Date GPA Commercial Insurance [id number] 2019 Unknown Family history Mother Diagnosis Age At Onset Cancer Unknown Father Diagnosis Age At Onset Congestive heart failure Unknown Coronary Artery Disease(CAD) Unknown Social History Social History Element Codes Description Effective Dates Tobacco history SNOMED CT: 7178520 Former smoker 10/09/2018 Marital status Unknown 07/08/2014 Number of children Unknown 1 07/08/2014 Employment Unknown Currently employed [employer] 07/08/[address]: 982297447 Never drinks alcohol 2013 Has the patient [...] Start Date Stop Date Status Fill Instructions clarithromycin ER 500 mg tablet,extended release 24 hr RxNor m: 194788 1 Tablet(s) Oral two times a day 12/22/2019 12/29/2019 Inactive clarithromycin ER 500 mg tablet,extended release 24 hr RxNor m: 242281 1 Tablet(s) Oral two times a day [...] Date Active famotidine 20 mg tablet RxNorm: 192426 1 Tablet(s) Oral QPM for postnasal drip/stomach 12/19/2019 01/18/2020 Active tramadol 50 mg tablet RxNorm: 878067 1 Tablet(s) Oral t hree times a day as needed for pain along with two tylenol 12/03/2019 No Stop Date Active doxycycline hyclate 100 mg capsule RxNorm: 8355493 1 Cap lee(s) Oral two times a day 11/03/2019 11/02/2019 Inactive doxycycline hyclate 100 mg capsule RxNorm: 7286204 1 Cap lee(s) Oral two times a day 11/03/2019 11/10/2019 Inactive tramadol 50 mg tablet RxNorm: 672897 1 Tablet(s) Oral t hree times a day as needed for pain along with two tylenol 10/27/2019 10/26/2019 Inactive tramadol 50 mg tablet RxNorm: 378278 1 Tablet(s) Oral t hree times a day as needed for pain along with two tylenol 10/27/2019 10/27/2019 Inactive cyclobenzaprine 10 mg tablet RxNorm: 435624 1 Tablet(s) Oral th ree times a day 10/27/2019 12/18/2019 Inactive Bactrim DS 800 mg-160 mg tablet RxNorm: 388751 1 Tablet(s) Oral two times a day 10/27/2019 11/03/2019 Inactive Bactrim DS 800 mg-160 mg tablet RxNorm: 765414 1 Tablet(s) Oral two times a day 10/27/2019 10/26/2019 Inactive tramadol 50 mg tablet RxNorm: 215133 1 Tablet(s) Oral t hree times a day as needed for pain along with two tylenol 09/29/2019 10/26/2019 Inactive quinapril 40 mg tablet RxNorm: 575524 1 Tablet(s) Oral QD 09/18/2019 03/15/2020 Active Patient requests 90 days supply tramadol 50 mg tablet RxNorm: 161944 1 Tablet(s) Oral t hree times a day as needed for pain along with two tylenol 08/28/2019 08/28/2019 Inactive tramadol 50 mg tablet RxNorm: 026683 1 Tablet(s) PO TID as needed for pain along with two tylenol 08/25/2019 08/27/2019 Inactive pantoprazole 40 mg tablet,delayed release RxNorm: 319942 1 Tabl et(s) Oral QD 08/13/2019 No Stop Date Active Vitamin D3 1,000 unit capsule RxNorm: 608019 1 Capsule(s) Oral QD 1 10/13/2018 12/18/2019 Inactive tamsulosin 0.4 mg capsule RxNorm: 856133 1 Capsule(s) Oral QPM 07/2612/18/2019 Inactive Protonix 40 mg tablet,delayed release RxNorm: 512761 TA KE 1 TABLET BY MOUTH TWICE A DAY 08/04/2019 08/12/2019 Inactive Flagyl 500 mg tablet RxNorm: 670509 1 Tablet(s) Oral three time s a day 07/03/2019 07/13/2019 Inactive fluconazole 100 mg tablet RxNorm: 003333 1 Tablet(s) Oral QD 201807/10/2019 Inactive Bactrim DS 800 mg-160 mg tablet RxNorm: 786512 1 Tablet(s) Oral two times a day 07/03/2019 07/13/2019 Inactive nystatin 100,000 unit/gram topical cream RxNorm: 304329 Application Topical two times a day 07/03/2019 08/12/2019 Inactive gabapentin 600 mg tablet RxNorm: 082107 Tablet(s) TAKE 1 TABLET BY MOUTH EVERY NIGHT AT BEDTIME 06/25/2019 08/12/2019 Inactive - First Attempt Ref: [id number] quinapril 40 mg tablet RxNorm: 136385 1 Tablet(s) Oral QD 06/23/2019 09/17/2019 Inactive Patient requests 90 days supply tramadol 50 mg tablet RxNorm: 198008 1 Tablet(s) PO TID as needed for pain along with two tylenol 05/23/2019 08/24/2019 Inactive hydroxyzine HCl 25 mg tablet RxNorm: 870058 1 Tablet(s) PO TID as needed 05/21/2019 08/12/2019 Inactive Elimite 5 % topical cream RxNorm: 956619 1 Application TOP QHS apply head to toe and was off in morning 05/19/2019 07/02/2019 Inactive Protonix 40 mg tablet,delayed release RxNorm: 541992 1 Tablet(s ) PO BID 05/05/2019 08/02/2019 Inactive - First Attempt Ref: [id number] gabapentin 600 mg tablet RxNorm: 158633 Tablet(s) TAKE 1 TABLET BY MOUTH EVERY NIGHT AT BEDTIME 04/25/2019 06/24/2019 Inactive - First Attempt Ref: [id number] tramadol 50 mg tablet RxNorm: 118332 1 Tablet(s) PO TID as needed for pain along with two tylenol 04/21/2019 05/22/2019 Inactive quinapril 40 mg tablet RxNorm: 977160 1 Tablet(s) PO QD 04/01/2019 Inactive Patient requests 90 days supply fenofibrate micronized 134 mg capsule RxNorm: 580140 1 Capsule(s) PO QD Due for updated fasting labs 03/31/2019 08/12/2019 Inactive dicyclomine 10 mg capsule RxNorm: 007831 1 Capsule(s) PO TID as needed 02/24/2019 05/20/2019 Inactive Flagyl 500 mg tablet RxNorm: 661947 1 Tablet(s) PO Q8H 02/24/201908/2019 Inactive ciprofloxacin 500 mg tablet RxNorm: 602887 1 Tablet(s) PO BID 02/2403/09/2019 Inactive Flagyl 500 mg tablet RxNorm: 596690 1 Tablet(s) PO Q6H 01/30/2019 Inactive ciprofloxacin 500 mg tablet RxNorm: 989321 1 Tablet(s) PO BID 01/3001/29/2019 Inactive Flagyl 500 mg tablet RxNorm: 135441 1 Tablet(s) PO Q6H 01/30/201904/2019 Inactive ciprofloxacin 500 mg tablet RxNorm: 690307 1 Tablet(s) PO BID 01/3002/05/2019 Inactive gabapentin 600 mg tablet RxNorm: 319135 TAKE 1 TABLET B Y MOUTH EVERY NIGHT AT BEDTIME 01/27/2019 04/24/2019 Inactive - First Attempt Ref: [id number] tramadol 50 mg tablet RxNorm: 426780 1 Tablet(s) PO TID as needed for pain along with two tylenol 01/08/2019 04/20/2019 Inactive fenofibrate micronized 134 mg capsule RxNorm: 562615 1 Capsule(s) PO QD Due for updated fasting labs 01/02/2019 03/30/2019 Inactive quinapril 40 mg tablet RxNorm: 878898 1 Tablet(s) PO QD 01/01/2019 Inactive Patient requests 90 days supply Protonix 40 mg tablet,delayed release RxNorm: 310675 TA KE 1 TABLET BY MOUTH TWICE A DAY 01/01/2019 03/31/2019 Inactive - First Attempt Ref: [id number] Protonix 40 mg tablet,delayed release RxNorm: 665713 TA KE 1 TABLET BY MOUTH TWICE A DAY 12/25/2018 12/31/2018 Inactive - First Attempt Ref: [id number] gabapentin 600 mg tablet RxNorm: 023124 TAKE 1 TABLET B Y MOUTH EVERY NIGHT AT BEDTIME 12/02/2018 01/26/2019 Inactive - First Attempt Ref: [id number] Protonix 40 mg tablet,delayed release RxNorm: 429790 1 Tablet(s ) PO BID 11/11/2018 12/24/2018 Inactive Protonix 40 mg tablet,delayed release RxNorm: 573209 1 Tablet(s ) PO BID 10/09/2018 11/10/2018 Inactive gabapentin 600 mg tablet RxNorm: 784251 1 Tablet(s) PO QHS 10/09/1912/01/2018 Inactive quinapril 40 mg tablet RxNorm: 556969 1 Tablet(s) PO QD 1 TABLE T(S) PO QD 08/08/2018 08/07/2018 Inactive Patient requests 9 0 days supply quinapril 40 mg tablet RxNorm: 907737 1 Tablet(s) PO QD 08/08/2018 Inactive Patient requests 90 days supply meloxicam 15 mg tablet RxNorm: 687335 1 Tablet(s) PO QD 08/08/2018 Inactive gabapentin 300 mg capsule RxNorm: 082362 1 CAPSULE(S) P O QHS DUE FOR WELLNESS VISIT 08/07/2018 10/08/2018 Inactive due for followup meloxicam 15 mg tablet RxNorm: 125057 Tablet(s) 1 TABLET(S) PO QD 1 10/07/2017 08/07/2018 Inactive fenofibrate micronized 134 mg capsule RxNorm: 842708 1 Capsule(s) PO QD Needs updated fasting labs!!!!!! 07/08/2018 07/07/2018 Inactive fenofibrate micronized 134 mg capsule RxNorm: 851092 1 Capsule( s) PO QD 07/08/2018 01/01/2019 Inactive fenofibrate micronized 134 mg capsule RxNorm: 437999 1 Capsule(s) PO QD Needs updated fasting labs!!!!!! 06/21/2018 07/08/2018 Inactive Medrol (Daniel) 4 mg tablets in a dose pack RxNorm: 992448 Tablet(s) PO As Directed 05/06/2018 05/05/2018 Inactive Medrol (Daniel) 4 mg tablets in a dose pack RxNorm: 995835 Tablet(s) PO As Directed 05/06/2018 08/07/2018 Inactive quinapril 40 mg tablet RxNorm: 697210 1 TABLET(S) PO QD 05/02/2018 Inactive Patient requests 90 days supply fenofibrate micronized 134 mg capsule RxNorm: 916985 1 Capsule(s) PO QD Needs updated fasting labs 04/29/2018 05/28/2018 Inactive Move Free Joint Health 750 mg-100 mg-1.65 mg-108 mg tablet R xNorm: 1 Tablet(s) PO QD 02/12/2018 03/13/2018 Inactive fenofibrate micronized 134 mg capsule RxNorm: 259280 Ca psule(s) 1 CAPSULE(S) PO QD 01/29/2018 06/21/2018 Inactive quinapril 40 mg tablet RxNorm: 408647 1 TABLET(S) PO QD 11/26/2017 Inactive Patient requests 90 days supply fenofibrate micronized 134 mg capsule RxNorm: 783084 1 CAPSULE( S) PO QD 11/06/2017 01/29/2018 Inactive gabapentin 300 mg capsule RxNorm: 033081 1 CAPSULE(S) P O QHS DUE FOR WELLNESS VISIT 10/24/2017 07/20/2018 Inactive due for followup meloxicam 15 mg tablet RxNorm: 092797 1 TABLET(S) PO QD 10/24/2017 Inactive quinapril 40 mg tablet RxNorm: 740737 1 Tablet(s) PO QD 10/24/2017 Inactive fenofibrate micronized 134 mg capsule RxNorm: 084261 1 Capsule( s) PO QD 08/22/2017 11/05/2017 Inactive fenofibrate micronized 134 mg capsule RxNorm: 040565 1 Capsule( s) PO QD 08/22/2017 08/21/2017 Inactive quinapril 20 mg tablet RxNorm: 181362 1 Tablet(s) PO QD 08/13/2017 Inactive gabapentin 300 mg capsule RxNorm: 113828 1 Capsule(s) P O QHS Due for wellness visit 08/06/2017 10/23/2017 Inactive due for followup gabapentin 300 mg capsule RxNorm: 302612 1 Capsule(s) P O QHS Due for wellness visit 08/02/2017 08/05/2017 Inactive due for followup meloxicam 15 mg tablet RxNorm: 738085 1 Tablet(s) PO QD 08/01/2017 Inactive gabapentin 300 mg capsule RxNorm: 255943 1 Capsule(s) P O QHS Due for wellness visit 08/01/2017 08/01/2017 Inactive due for followup gabapentin 300 mg capsule RxNorm: 040596 1 Capsule(s) P O QHS Due for wellness visit 08/01/2017 08/02/2017 Inactive gabapentin 300 mg capsule RxNorm: 798894 1 Capsule(s) PO QHS 201605/12/2017 Inactive quinapril 10 mg tablet RxNorm: 052715 1 Tablet(s) PO QD replace s quinapril hct 02/12/2017 08/12/2017 Inactive meloxicam 15 mg tablet RxNorm: 136906 1 Tablet(s) PO QD 02/05/2017 Inactive quinapril 10 mg tablet RxNorm: 818349 1 Tablet(s) PO QD replace s quinapril hct 11/16/2016 02/12/2017 Inactive gabapentin 300 mg capsule RxNorm: 880484 1 Capsule(s) PO QHS 201602/12/2017 Inactive quinapril 10 mg tablet RxNorm: 780694 1 Tablet(s) PO QD replace s quinapril hct 10/16/2016 11/15/2016 Inactive gabapentin 300 mg capsule RxNorm: 923588 1 Capsule(s) PO QHS 201511/15/2016 Inactive quinapril 10 mg tablet RxNorm: 272900 1 Tablet(s) PO QD replace s quinapril hct 07/19/2016 10/15/2016 Inactive meloxicam 15 mg tablet RxNorm: 863246 1 Tablet(s) PO QD 07/10/2016 Inactive meloxicam 15 mg tablet RxNorm: 180797 TAKE ONE TABLET BY MOUTH LUKE Y 07/10/2016 07/09/2016 Inactive meloxicam 15 mg tablet RxNorm: 794666 1 Tablet(s) PO QD 07/06/2016 Inactive meloxicam 15 mg tablet RxNorm: 332076 1 Tablet(s) PO QD 06/09/2016 Inactive Multivitamin & Mineral Formula tablet RxNorm: 1 Tablet(s) PO Q D 06/02/2016 07/01/2016 Inactive tamsulosin 0.4 mg capsule RxNorm: 133595 1 Capsule(s) PO QHS 201507/01/2016 Inactive Move Free Joint Health 750 mg-100 mg-1.65 mg-108 mg tablet R xNorm: 1 Tablet(s) PO QD 06/02/2016 07/01/2016 Inactive gabapentin 300 mg capsule RxNorm: 429330 1 Capsule(s) PO QHS 201508/27/2016 Inactive gabapentin 300 mg capsule RxNorm: 613885 Capsule(s) ALFONZO E ONE CAPSULE BY MOUTH AT BEDTIME 02/28/2016 05/27/2016 Inactive quinapril 10 mg-hydrochlorothiazide 12.5 mg tablet RxNorm: 3 05003 Tablet(s) TAKE ONE TABLET BY MOUTH EVERY MORNING 01/14/2016 07/18/2016 Inactive gabapentin 300 mg capsule RxNorm: 668870 TAKE ONE CAPSULE BY [facility] AT BEDTIME 12/28/2015 02/27/2016 Inactive Urecholine 25 mg tablet RxNorm: 038597 1 Tablet(s) PO TID 11/09/2015 07/18/2016 Inactive phenazopyridine 100 mg tablet RxNorm: 9907147 1 Tablet(s ) PO TID as needed for bladder spasms. 11/08/2015 11/08/2015 Inactive quinapril 10 mg-hydrochlorothiazide 12.5 mg tablet RxNorm: 3 54112 TAKE ONE TABLET BY MOUTH EVERY MORNING 10/15/2015 01/13/2016 Inactive gabapentin 300 mg capsule RxNorm: 412019 1 Tablet(s) PO QD TAKE ONE CAPSULE BY MOUTH EVERY NIGHT AT BEDTIME 09/23/2015 12/21/2015 Inactive quinapril 10 mg-hydrochlorothiazide 12.5 mg tablet RxNorm: 3 65692 Tablet(s) TAKE ONE TABLET BY MOUTH EVERY MORNING 07/14/2015 10/14/2015 Inactive gabapentin 300 mg capsule RxNorm: 710026 1 Tablet(s) PO QD TAKE ONE CAPSULE BY MOUTH EVERY NIGHT AT BEDTIME 06/25/2015 09/23/2015 Inactive prednisone 20 mg tablet RxNorm: 441849 1 Tablet(s) PO QD 06/14/2015 0 06/20/2015 Inactive cephalexin 500 mg capsule RxNorm: 809688 1 Capsule(s) PO BID 201405/27/2015 Inactive mupirocin 2 % topical ointment RxNorm: 166808 TOP BID 05/18/2015 0 06/13/2015 Inactive quinapril 10 mg-hydrochlorothiazide 12.5 mg tablet RxNorm: 3 44336 Tablet(s) TAKE ONE TABLET BY MOUTH EVERY MORNING 04/06/2015 07/14/2015 Inactive gabapentin 300 mg capsule RxNorm: 018634 1 Capsule(s) PO QHS 201404/01/2015 Inactive [SAVINGS FOR NON-COVERED LILIANA GS -- BIN:058902, PCN: ASPROD1, Group: XXXXX, ID# [id number], Questions: . THIS IS NOT INSURANCE.] gabapentin 300 mg capsule RxNorm: 023185 1 Capsule(s) PO QHS 201406/25/2015 Inactive [SAVINGS FOR NON-COVERED LILIANA GS -- BIN:969941, PCN: ASPROD1, Group: XXXXX, ID# [id number], Questions: . THIS IS NOT INSURANCE.] quinapril 10 mg-hydrochlorothiazide 12.5 mg tablet RxNorm: 3 82236 TAKE ONE TABLET BY MOUTH EVERY MORNING 12/11/2014 04/05/2015 Inactive gabapentin 300 mg capsule RxNorm: 257882 1 Capsule(s) PO QHS 201404/02/2015 Inactive [SAVINGS FOR NON-COVERED LILIANA GS -- BIN:096300, PCN: ASPROD1, Group: XXXXX, ID# [id number], Questions: . THIS IS NOT INSURANCE.] cyclobenzaprine 10 mg tablet RxNorm: 414899 1 Tablet(s) PO TID as needed for muscle spasm for muscle spasm 12/02/2014 02/21/2015 Inactive [S AVINGS FOR NON- COVERED DRUGS -- BIN:270931, PCN: ASPROD1, Group: XXXXX, ID# [id number], Questions: . THIS IS NOT INSURANCE.] gabapentin 100 mg capsule RxNorm: 999323 1 Capsule(s) PO QHS 201412/01/2014 Inactive [SAVINGS FOR NON-COVERED LILIANA GS -- BIN:408087, PCN: ASPROD1, Group: XXXXX, ID# [id number], Questions: . THIS IS NOT INSURANCE.] ibuprofen 800 mg tablet RxNorm: 263935 1 Tablet(s) PO T ID as needed low back pain 11/11/2014 11/23/2014 Inactive [SAVINGS FOR NON -COVERED DRUGS -- BIN:578355, PCN: ASPROD1, Group: XXXXX, ID# [id number], Questions: . THIS IS NOT INSURANCE.] ibuprofen 800 mg tablet RxNorm: 918044 1 Tablet(s) PO T ID as needed low back pain 11/09/2014 11/10/2014 Inactive [SAVINGS FOR NON -COVERED DRUGS -- BIN:876709, PCN: ASPROD1, Group: XXXXX, ID# [id number], Questions: . THIS IS NOT INSURANCE.] Zorvolex 35 mg capsule RxNorm: 2451123 1 Tablet(s) PO TID 08/27/2014 10/01/2014 Inactive [SAVINGS FOR UNINSURED PATIENTS -- BIN:0 09812, PCN: ASPROD1, Group: [id number], ID# [id number], Process claim through [employer], for questions: . THIS IS NOT INSURANCE.] quinapril 10 mg-hydrochlorothiazide 12.5 mg tablet RxNorm: 3 97855 1 Tablet(s) PO QAM 08/27/2014 11/24/2014 Inactive Lidoderm 5 % (700 mg/patch) adhesive patch RxNorm: 2005291 Application TOP for 12hours then off for pain 08/18/2014 02/21/2015 Inactive [SAVIN GS FOR UNINSURED PATIENTS -- BIN:437386, PCN: ASPROD1, Group: AME08, ID# [id number], Process claim through [employer], for questions: . THIS IS NOT INSURANCE.] Zorvolex 35 mg capsule RxNorm: 5686038 1 Tablet(s) PO TID 08/13/2014 08/12/2014 Inactive Zorvolex 35 mg capsule RxNorm: 0950705 1 Tablet(s) PO TID 08/13/2014 08/24/2014 Inactive [SAVINGS FOR UNINSURED PATIENTS -- BIN:0 52738, PCN: ASPROD1, Group: [id number], ID# [id number], Process claim through [employer], for questions: . THIS IS NOT INSURANCE.] Aspirin Child 81 mg chewable tablet RxNorm: 281359 1 Tablet(s) PO QD No Start Date Active ibuprofen 800 mg tablet RxNorm: 574732 1 Tablet(s) PO T ID as needed low back pain No Start Date 11/08/2014 Inactive cyclobenzaprine 10 mg tablet RxNorm: 127518 1 Tablet(s) PO TID No S tart Date 08/12/2017 Inactive garlic 1,000 mg capsule RxNorm: 494444 1 Capsule(s) PO QD No Start Date 04/22/2019 Inactive tramadol 50 mg tablet RxNorm: 628011 1 Tablet(s) PO Q4-6H as ne eded for pain No Start Date 02/21/2015 Inactive tramadol 50 mg tablet RxNorm: 824851 1 Tablet(s) PO TID as needed for pain along with two tylenol No Start Date 01/07/2019 Inactive krill oil oral RxNorm: 61206 oral No Start Date 11/11/2018 Inacti ve Vitamin D3 2,000 unit tablet RxNorm: 614145 1 Tablet(s) PO QD No St art Date 08/12/2019 Inactive gabapentin 100 mg tablet RxNorm: 404569 1 Tablet(s) PO QD No Start Date 11/10/2014 Inactive Zofran 4 mg tablet RxNorm: 846846 1 Tablet(s) PO Q6H as needed No S tart Date 08/12/2019 Inactive Elimite 5 % topical cream RxNorm: 812883 1 Application TOP QHS apply head to toe and was off in morning No Start Date 05/18/2019 Inactive gabapentin 100 mg capsule RxNorm: 586273 1 Capsule(s) PO QHS No Sta rt Date 11/10/2014 Inactive aspirin 325 mg tablet RxNorm: 971569 2 Tablet(s) PO QD No Start Date 08/17/2014 Inactive Fish Oil 1,000 mg capsule RxNorm: 1 Capsule(s) PO QD No Start Date 10/08/2018 Inactive quinapril 10 mg-hydrochlorothiazide 12.5 mg tablet RxNorm: 3 33604 1 Tablet(s) PO QAM No Start Date 08/26/2014 Inactive quinapril 40 mg tablet RxNorm: 581266 1 Tablet(s) PO QD No Start Da te 10/23/2017 Inactive Medrol (Daniel) 4 mg tablets in a dose pack RxNorm: 764919 Tablet(s) PO As Directed No Start Date 05/05/2018 Inactive Urecholine 25 mg tablet RxNorm: 174605 1 Tablet(s) PO TID No Start Date 11/08/2015 Inactive cyclobenzaprine 10 mg tablet RxNorm: 395637 1/2-1 Table t(s) PO TID as needed for muscle spasm No Start Date 12/01/2014 Inactive tamsulosin 0.4 mg capsule RxNorm: 782205 2 Capsule(s) PO QPM No Sta rt Date 08/12/2019 Inactive hydrocodone 5 mg-acetaminophen 325 mg tablet RxNorm: 280519 1 -2 Tablet(s) PO Q6H as needed No Start Date 05/20/2019 Inactive loratadine 10 mg tablet RxNorm: 611272 1 Tablet(s) PO QD No Start D ate 07/07/2014 Inactive Medication Administered No Medication Administered data Immunizations Vaccine Codes Date Status Influenza CVX: 141 07/21/2019 Results Observation Observation Code Item Item Code Result Date S ervice Location CULTURE, AEROBIC BACTERIA 46542 CULTURE, AEROBIC BACTERIA SEE NOTE 10/30/2019 [facility] [address] [place] [address] CULTURE, URINE, ROUTINE 395 CULTURE SEE NOTE 1 10/15/2018 [facility] Bec[facility] [address] [place] [address] CULTURE, URINE, ROUTINE 395 CULTURE, URINE, ROUTINE SEE NOTE 08/15/2019 [facility] [address] CBC (H/H, RBC, INDICES, WBC, PLT) 83582 WHITE BLOOD CELL COU NT 7.9 Thousand/uL 08/14/[address] [address] CBC (H/H, RBC, INDICES, WBC, PLT) 29924 RED BLOOD CELL COUNT 4.93 Million/uL 08/14/2019 [facility] [address] CBC (H/H, RBC, INDICES, WBC, PLT) 34878 HEMOGLOBIN 15 .4 g/dL 08/14/2019 [facility] [address] CBC (H/H, RBC, INDICES, WBC, PLT) 05899 HEMATOCRIT 45 .0 % 08/14/[address] [facility] [address] [address] CBC (H/H, RBC, INDICES, WBC, PLT) 55133 MCV 91 .3 fL 08/14/2019 [facility] [address] CBC (H/H, RBC, INDICES, WBC, PLT) 37809 MCH 31 .2 pg 08/14/2019 [facility] [address] CBC (H/H, RBC, INDICES, WBC, PLT) 96175 MCHC 34 .2 g/dL 08/14/[address] [address] CBC (H/H, RBC, INDICES, WBC, PLT) 05856 RDW 12 .7 % 08/14/2019 [facility] [address] CBC (H/H, RBC, INDICES, WBC, PLT) 62022 PLATELET COUNT 214 Thousand/uL 08/14/2019 [facility] [address] CBC (H/H, RBC, INDICES, WBC, PLT) 89638 MPV 11 .5 fL 08/14/2019 [facility] [address] COMPREHENSIVE METABOLIC PANEL 10733 Glucose 113 mg /dL 08/14/2019 [facility] [address] [address] COMPREHENSIVE METABOLIC PANEL 83011 UREA NITROGEN (BUN) 16 mg/dL 08/14/2019 [facility] [address] [address] COMPREHENSIVE METABOLIC PANEL 15456 CREATININE 0.86 m g/dL 08/14/2019 [facility] [address] [address] COMPREHENSIVE METABOLIC PANEL 00282 eGFR NON-AFR. CHADIAN 92 mL/min/1.73m2 08/14/2019 [facility] [address] [address] COMPREHENSIVE METABOLIC PANEL 98273 eGFR 106 mL/min/1.73m2 08/14/2019 [facility] [address] [address] COMPREHENSIVE METABOLIC PANEL 33984 BUN/CREATININE RATIO NOT APPLICABLE (calc) 08/14/2019 [facility] [address] [place] [address] COMPREHENSIVE METABOLIC PANEL 36500 SODIUM 141 mm ol/L 08/14/2019 [facility] [address] [address] COMPREHENSIVE METABOLIC PANEL 00097 POTASSIUM 4.1 mm ol/L 08/14/2019 [facility] [address] [address] COMPREHENSIVE METABOLIC PANEL 16131 CHLORIDE 102 mm ol/L 08/14/2019 [facility] [address] [address] COMPREHENSIVE METABOLIC PANEL 74393 CARBON DIOXIDE 28 mmol/L 08/14/2019 [facility] [address] [address] COMPREHENSIVE METABOLIC PANEL 92434 CALCIUM 9.7 mg /dL 08/14/2019 [facility] [address] [address] COMPREHENSIVE METABOLIC PANEL 79502 PROTEIN, TOTAL 6. 7 g/dL 08/14/2019 [facility] [address] [address] COMPREHENSIVE METABOLIC PANEL 48598 ALBUMIN 4.3 g/ dL 08/14/2019 [facility] [address] [address] COMPREHENSIVE METABOLIC PANEL 34328 GLOBULIN 2.4 g/ dL(calc) 08/14/2019 [facility] [address] COMPREHENSIVE METABOLIC PANEL 30722 ALBUMIN/GLOBULIN RATIO 1.8 (calc) 08/14/2019 [facility] [address] COMPREHENSIVE METABOLIC PANEL 03188 BILIRUBIN, TOTAL 1.0 mg/dL 08/14/[address] [address] COMPREHENSIVE METABOLIC PANEL 04234 ALKALINE PHOSPHATASE 56 U/L 08/14/2019 [facility] [address] COMPREHENSIVE METABOLIC PANEL 57409 AST 18 U/L 08/14/[address] [facility] [address] COMPREHENSIVE METABOLIC PANEL 79118 ALT 28 U/L 08/14/[address] [facility] [address] MAGNESIUM 72169 MAGNESIUM 2.0 mg/dL 06/06/2019 [facility] [address] COMPREHENSIVE METABOLIC PANEL 24115 Glucose 106 mg /dL 06/06/[address] [facility] [address] COMPREHENSIVE METABOLIC PANEL 62080 UREA NITROGEN (BUN) 22 mg/dL 06/06/[address] [facility] [address] COMPREHENSIVE METABOLIC PANEL 55974 CREATININE 1.29 m g/dL 06/06/[address] [facility] [address] COMPREHENSIVE METABOLIC PANEL 08354 eGFR NON-AFR. CHADIAN 58 mL/min/1.73m2 06/06/2019 [facility] [address] COMPREHENSIVE METABOLIC PANEL 60413 eGFR 67 mL/min/1.73m2 06/06/2019 [facility] [address] COMPREHENSIVE METABOLIC PANEL 94993 BUN/CREATININE RATIO 17 (calc) 06/06/2019 [facility] [address] COMPREHENSIVE METABOLIC PANEL 09836 SODIUM 138 mm ol/L 06/06/2019 [facility] [address] COMPREHENSIVE METABOLIC PANEL 60227 POTASSIUM 4.2 mm ol/L 06/06/2019 [facility] [address] COMPREHENSIVE METABOLIC PANEL 55016 CHLORIDE 101 mm ol/L 06/06/2019 [facility] [address] COMPREHENSIVE METABOLIC PANEL 28319 CARBON DIOXIDE 29 mmol/L 06/06/2019 [facility] [address] COMPREHENSIVE METABOLIC PANEL 72936 CALCIUM 9.6 mg /dL 06/06/2019 [facility] [address] COMPREHENSIVE METABOLIC PANEL 18059 PROTEIN, TOTAL 6. 9 g/dL 06/06/2019 [facility] [address] COMPREHENSIVE METABOLIC PANEL 54439 ALBUMIN 4.4 g/ dL 06/06/[address] [facility] [address] COMPREHENSIVE METABOLIC PANEL 09867 GLOBULIN 2.5 g/ dL(calc) 06/06/[address] [facility] [address] COMPREHENSIVE METABOLIC PANEL 18420 ALBUMIN/GLOBULIN RATIO 1.8 (calc) 06/06/[address] [facility] [address] COMPREHENSIVE METABOLIC PANEL 87451 BILIRUBIN, TOTAL 0.7 mg/dL 06/06/[address] [facility] [address] COMPREHENSIVE METABOLIC PANEL 27982 ALKALINE PHOSPHATASE 45 U/L 06/06/[address] [facility] [address] COMPREHENSIVE METABOLIC PANEL 84680 AST 21 U/L 06/06/2019 [facility] [address] COMPREHENSIVE METABOLIC PANEL 89667 ALT 34 U/L 06/06/[address] [facility] [address] CULTURE, URINE, ROUTINE 395 CULTURE, URINE, ROUTINE SEE NOTE 04/23/2019 [facility] Becerra [address] [place] [phone] CULTURE, URINE, ROUTINE 395 CULTURE SEE NOTE 0 04/23/2019 [facility] [address] [address] EXTRA 1014 EXTRA TUBE RECEIVED 04/22 [facility] [address] [address] EXTRA 1014 SPECIMEN TYPE RECEIVED: LAV 0 04/22/2019 [facility] [address] [address] COMPREHENSIVE METABOLIC PANEL 32091 Glucose 94 mg/ dL 04/22/[address] [facility] [address] COMPREHENSIVE METABOLIC PANEL 67814 UREA NITROGEN (BUN) 20 mg/dL 04/22/2019 [facility]osticsChiragStall[facility] [address] [address] COMPREHENSIVE METABOLIC PANEL 33643 CREATININE 1.30 m g/dL 04/22/2019 [facility] [address] [address] COMPREHENSIVE METABOLIC PANEL 72318 eGFR NON-AFR. CHADIAN 58 mL/min/1.73m2 04/22/2019 [facility] [address] [address] COMPREHENSIVE METABOLIC PANEL 77839 eGFR 67 mL/min/1.73m2 04/22/2019 [facility] [address] [address] COMPREHENSIVE METABOLIC PANEL 78039 BUN/CREATININE RATIO 15 (calc) 04/22/2019 [facility] [address] [address] COMPREHENSIVE METABOLIC PANEL 01316 SODIUM 139 mm ol/L 04/22/2019 [facility] [address] [address] COMPREHENSIVE METABOLIC PANEL 56638 POTASSIUM 4.2 mm ol/L 04/22/2019 [facility] [address] [address] COMPREHENSIVE METABOLIC PANEL 51137 CHLORIDE 104 mm ol/L 04/22/2019 [facility] [address] [address] COMPREHENSIVE METABOLIC PANEL 72412 CARBON DIOXIDE 27 mmol/L 04/22/[address] [facility] [address] COMPREHENSIVE METABOLIC PANEL 82061 CALCIUM 9.9 mg /dL 04/22/[address] [address] COMPREHENSIVE METABOLIC PANEL 78353 PROTEIN, TOTAL 7. 1 g/dL 04/22/[address] [address] COMPREHENSIVE METABOLIC PANEL 78327 ALBUMIN 4.6 g/ dL 04/22/[address] [address] COMPREHENSIVE METABOLIC PANEL 11858 GLOBULIN 2.5 g/ dL(calc) 04/22/2019 [facility] [address] COMPREHENSIVE METABOLIC PANEL 06737 ALBUMIN/GLOBULIN RATIO 1.8 (calc) 04/22/[address] [address] COMPREHENSIVE METABOLIC PANEL 69661 BILIRUBIN, TOTAL 0.4 mg/dL 04/22/[address] [address] COMPREHENSIVE METABOLIC PANEL 66997 ALKALINE PHOSPHATASE 53 U/L 04/22/[address] [address] COMPREHENSIVE METABOLIC PANEL 14459 AST 21 U/L 04/22/[address] [address] COMPREHENSIVE METABOLIC PANEL 12247 ALT 34 U/L 04/22/[address] [address] CULTURE, URINE, ROUTINE 395 CULTURE, URINE, ROUTINE SEE NOTE 01/31/[address] [address] Procedures Procedure Codes Date CULTURE, THROAT CPT-4: 12158 12/30/2019 CULTURE, AEROBIC BACTERIA CPT-4: 74315 10/27/2019 URINALYSIS NONAUTO W/O SCOPE CPT-4: 79746 10/02/2019 URINE CULTURE/ COLONY COUNT CPT-4: 04715 10/02/2019 ROUTINE VENIPUNCTURE CPT-4: 92676 08/13/2019 URINALYSIS NONAUTO W/O SCOPE CPT-4: 14057 08/13/2019 CULTURE, URINE, ROUTINE CPT-4: 395 08/13/2019 COMPREHENSIVE METABOLIC PANEL CPT-4: 15448 08/13/2019 CBC (H/H, RBC, INDICES, WBC, PLT) CPT-4: 61695 2018 COMPREHENSIVE METABOLIC PANEL CPT-4: 15227 06/05/2019 MAGNESIUM CPT-4: 28407 06/05/2019 DEXAMETHASONE SODIUM PHOS CPT-4: J1100 05/21/2019 THER/PROPH/DIAG INJ SC/IM CPT-4: 20579 05/21/2019 TRIAMCINOLONE ACET INJ NOS CPT-4: J3301 05/21/2019 ROUTINE VENIPUNCTURE CPT-4: 56748 04/21/2019 COMPREHENSIVE METABOLIC PANEL CPT-4: 97377 04/21/2019 EXTRA CPT-4: 1014 04/21/2019 CULTURE, URINE, ROUTINE CPT-4: 395 04/21/2019 URINALYSIS NONAUTO W/O SCOPE CPT-4: 32304 04/21/2019 URINALYSIS NONAUTO W/O SCOPE CPT-4: 52221 01/29/2019 CULTURE, URINE, ROUTINE CPT-4: 395 01/29/2019 DRAIN/INJECT JOINT/BURSA CPT-4: 98824 02/19/2018 TRIAMCINOLONE ACET INJ NOS CPT-4: J3301 02/19/2018 DEXAMETHASONE SODIUM PHOS CPT-4: J1100 02/19/2018 THER/PROPH/DIAG INJ SC/IM CPT-4: 49908 02/12/2018 TRIAMCINOLONE ACET INJ NOS CPT-4: J3301 02/12/2018 DEXAMETHASONE SODIUM PHOS CPT-4: J1100 02/12/2018 CEFTRIAXONE SODIUM INJECTION CPT-4: J0696 12/03/2017 THER/PROPH/DIAG INJ SC/IM CPT-4: 87818 12/03/2017 THER/PROPH/DIAG INJ SC/IM CPT-4: 06514 12/03/2017 METHYLPREDNISOLONE INJECTION CPT-4: J2930 12/03/2017 URINALYSIS NONAUTO W/O SCOPE CPT-4: 25346 08/13/2017 STREP A ASSAY W/OPTIC CPT-4: 46830 02/13/2017 DESTRUCT PREMALG LESION (Cryosurgery) CPT-4: 78044 Vital Signs Date Vital 12/30/2019 Temperature: 36.9 [...] 1: 128/78 Code: 8480-6 BMI: 36.0 Code: 96536-5 Heart Rate 1: 68 bpm Height: 5'7" [...] 1: 138/86 Code: 8480-6 BMI: 35.6 Code: 86491-2 Heart Rate 1: 68 bpm Height: 5'7" SpO2: 95% Temperature: 36.6 (C) / 97.8 (F) Weight: 227 lbs 12/03/2017 Blood Pressure 1: 134/84 Code: 8480-6 BMI: 34.3 Code: 17753-3 Heart Rate 1: 68 bpm Height: 5'7" Respiratory Rate: 20 bpm SpO2: 96% Tempera ture: 35.9 (C) / 96.6 (F) Weight: 219 lbs 09/11/2017 Blood Pressure 1: 140/86 Code: 8480-6 BMI: 34.9 Code: 98619-7 Heart Rate 1: 84 bpm Height: 5'7" Respiratory Rate: 20 bpm SpO2: 95% Tempera ture: 36.7 (C) / 98.1 (F) Weight: 223 lbs 08/13/2017 Blood Pressure 1: 142/94 Code: 8480-6 BMI: 34.5 Code: 96583-4 Heart Rate 1: 76 bpm Height: 5'7" Respiratory Rate: 20 bpm SpO2: 96% Tempera ture: 37.1 (C) / 98.8 (F) Weight: 220 lbs 11/17/2016 Blood Pressure 1: 118/78 Code: 8480-6 He art Rate 1: 64 bpm 07/19/2016 Blood Pressure 1: 112/58 Code: 8480-6 BMI: 31.6 Code: 74020-4 Heart Rate 1: 88 bpm Height: 5'7" Respiratory Rate: 22 bpm SpO2: 98% Tempera ture: 36.3 (C) / 97.4 (F) Weight: 202 lbs 06/09/2016 Blood Pressure 1: 138/84 Code: 8480-6 BMI: 32.1 Code: 87226-7 Heart Rate 1: 58 bpm Height: 5'7" Respiratory Rate: 20 bpm SpO2: 97% Tempera ture: 36.6 (C) / 97.8 (F) Weight: 205 lbs 11/08/2015 Blood Pressure 1: 142/80 Code: 8480-6 BMI: 32.4 Code: 58165-7 Heart Rate 1: 76 bpm Height: 5'7" Respiratory Rate: 20 bpm Temperature: 36 .6 (C) / 97.9 (F) Weight: 207 lbs 06/14/2015 Blood Pressure 1: 126/80 Code: 8480-6 Heart Rate 1: 84 bpm Respiratory Rate: 20 bpm Temperature: 36.8 (C) / 98.2 (F) Weight: 206 lbs 05/18/2015 Blood Pressure 1: 124/80 Code: 8480-6 BMI: 32.3 Code: 69499-8 Heart Rate 1: 68 bpm Height: 5'7" Respiratory Rate: 20 bpm Temperature: 36 .4 (C) / 97.6 (F) Weight: 206 lbs 02/22/2015 Blood Pressure 1: 126/78 Code: 8480-6 BMI: 32.1 Code: 87396-1 Heart Rate 1: 76 bpm Height: 5'7" Respiratory Rate: 20 bpm Temperature: 36 .6 (C) / 97.9 (F) Weight: 205 lbs 12/02/2014 Blood Pressure 1: 124/80 Code: 8480-6 BMI: 32.7 Code: 25860-8 Heart Rate 1: 70 bpm Height: 5'7" Respiratory Rate: 18 bpm Temperature: 36 .6 (C) / 97.9 (F) Weight: 209 lbs 08/18/2014 Blood Pressure 1: 132/94 Code: 8480-6 BMI: 34.5 Code: 09802-9 Heart Rate 1: 84 bpm Height: 5'6" Respiratory Rate: 20 bpm Temperature: 36 .6 (C) / 97.9 (F) Weight: 217 lbs 07/08/2014 Blood Pressure 1: 142/88 Code: 8480-6 BMI: 34.3 Code: 06046-6 Heart Rate 1: 72 bpm Height: 5'6" [...] Visit Encounters Encounter Performer Location Codes Date ([id number]) NURSE/OUTPATIENT VISIT EST Diagnosis: Sore throat[ICD10: J02.9] Sapna HASSAN [employer] CPT-4: 47901 12/30/2019 ([id number]) OFFICE/OUTPATIENT VISIT EST Diagnosis: Allergic rhinitis[ICD10: J30.9] Diagnosis: Postnasal drip[ICD10: R09.82] [facility]: 04011 12/19/2019 ([id number]) NO CHARGE Diagnosis: Infected sebaceous cyst[ICD10: L72.3] Sapna REDMOND SAmarjit PROCTORER [employer] CPT-4: 29454 11/03/2019 ([id number]) OFFICE/OUTPATIENT VISIT EST Diagnosis: Disorder of the skin and subcutaneous tissue, unspecified[ICD10: L98.9] Diagnosis: Infected sebaceous cyst[ICD10: L72.3] Diagnosis: Local infection of the skin and subcutaneous tissue, unspecified[ICD10: L08.9] Lashell CORRAL SAmarjit QUINTONNDER [employer] CPT-4 : 63069 10/27/2019 ([id number]) OFFICE/OUTPATIENT VISIT EST Diagnosis: Suprapubic abdominal pain[ICD10: R10.2] Diagnosis: Aortic regurgitation[ICD10: I35.1] Sapna GAUTAM SAmarjit COATSNDER [employer] CPT-4: 10420 10/02/2019 ([id number]) OFFICE/OUTPATIENT VISIT EST Diagnosis: Chest pain[ICD10: R07.9] Lashell BILLINGS [employer] CPT-4: 39755 08/25/2019 ([id number]) OFFICE/OUTPATIENT VISIT EST Diagnosis: Thoracic back pain[ICD10: M54.6] Diagnosis: Disorder of kidney and ureter, unspecified[ICD10: N28.9] Diagnosis: Personal history of nicotine dependence[ICD10: Z87.891] 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 QUINTONND EDVIN [employer] [facility] CPT-4: 75848 07/03/2019 ([id number]) OFFICE/OUTPATIENT VISIT EST Diagnosis: Cramp and spasm[ICD10: R25.2] Diagnosis: Disorder of kidney and ureter, unspecified[ICD10: N28.9] Lashell BRUNSONLINE JefryAmarjit HITESHER [employer] [facility] CPT-4: 33409 06/05/2019 ([id number]) OFFICE/OUTPATIENT VISIT EST Diagnosis: Other pruritus[ICD10: L29.8] Diagnosis: Pain in right knee[ICD10: M25.561] Lashell SHAHTIFFANIE GAUTAM S. QUINTONNDEDVIN [employer] [facility] CPT-4: 96304 05/21/2019 ([id number]) NURSE/OUTPATIENT VISIT EST Diagnosis: Edema, unspecified[ICD10: R60.9] Sapna Quintonclaudio CORRAL S. HITESHER [employer] [facility] CPT-4: 60386 04/21/2019 ([id number]) OFFICE/OUTPATIENT VISIT EST Diagnosis: Diverticulitis of large intestine without perforation or abscess without bleeding[ICD10: K57.32] Diagnosis: Snoring[ICD10: R06.83] Diagnosis: Other constipation[ICD10: K59.09] Lashell SHAHDESIREE Chandler S. QUINTONNDER [employer] [facility] CPT-4: 40717 02/24/2019 ([id number]) OFFICE/OUTPATIENT VISIT EST Diagnosis: Diverticulitis of large intestine without perforation or abscess with bleeding[ICD10: K57.33] Nancy CORRAL Jefry. HITESHER [employer] [facility] CPT-4: 28911 02/04/2019 ([id number]) OFFICE/OUTPATIENT VISIT EST Diagnosis: Left lower quadrant pain[ICD10: R10.32] Nancy LIVE [facility] CPT-4: 06562 01/29/2019 OFFICE/OUTPATIENT VISIT EST Diagnosis: Dermatitis, unspecified[ICD10: L30.9] Diagnosis: Gastro-esophageal reflux disease without esophagitis[ICD10: K21.9] Diagnosis: Palpitations[ICD10: R00.2] Sapna AU [employer] [facility] CPT-4: 87748 12/19/2018 ([id number]) OFFICE/OUTPATIENT VISIT EST Diagnosis: Gastro-esophageal reflux disease without esophagitis[ICD10: K21.9] Diagnosis: Dysphagia, pharyngoesophageal phase[ICD10: R13.14] Sapna LIVE [facility] CPT-4: 68052 11/11/2018 ([id number]) PREV VISIT EST AGE 40-64 Diagnosis: Encounter [...] disorders of digestive system[ICD10: K91.89] Lashell LIVE [employer] [facility] CPT-4: 99 396 10/09/2018 ([id number]) OFFICE/OUTPATIENT VISIT EST Diagnosis: Pain in right knee[ICD10: M25.561] Diagnosis: Pain in right hip[ICD10: M25.551] Lashell LIVE [facility] CPT-4: 90877 02/12/2018 OFFICE/OUTPATIENT VISIT EST Diagnosis: Essential (primary) hypertension[ICD10: I10] Diagnosis: Other chest pain[ICD10: R07.89] Lashell LIVE [facility] CPT-4: 74892 12/03/2017 ([id number]) OFFICE/OUTPATIENT VISIT EST Diagnosis: Essential (primary) hypertension[ICD10: I10] Sapna LIVE [facility] CPT-4: 59483 09/11/2017 ([id number]) PREV VISIT EST AGE 40-64 Diagnosis: Encounter for general adult medical examination without abnormal findings[ICD10: Z00.00] Diagnosis: Essential (primary) hypertension[ICD10: I10] Diagnosis: Left lower quadrant pain[ICD10: R10.32] Diagnosis: Left upper quadrant pain[ICD10: R10.12] Diagnosis: Other intervertebral disc degeneration, 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] Sapna LIVE [facility] CPT-4: 62536 08/13/2017 ([id number]) OFFICE/OUTPATIENT VISIT EST Diagnosis: Acute pharyngitis, unspecified[ICD10: J02.9] Sapna LIVE [facility] CPT-4: 94668 02/13/2017 ([id number]) PREV VISIT EST AGE 40-64 Diagnosis: Encounter for general adult medical examination without abnormal findings[ICD10: Z00.00] Diagnosis: Essential (primary) hypertension[ICD10: I10] 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 CPT-4: 56774 11/08/2015 ([id number]) OFFICE/OUTPATIENT VISIT EST Diagnosis: DERMATITIS NOS[ICD9: 692.9] Diagnosis: SEBACEOUS CYST[ICD9: 706.2] Sapna OBSCH [facility] CPT-4: 55193 06/14/2015 OFFICE/OUTPATIENT VISIT EST Diagnosis: LOCAL SKIN INFECTION[ICD9: 686.9] Diagnosis: FOLLICULITIS[ICD9: 704.8] Chelsie NoriegaAlysiaoscar HASSAN [facility] CPT-4: 35155 05/18/2015 ([id number]) OFFICE/OUTPATIENT VISIT EST Diagnosis: Constipation[ICD9: 564.00] Sapna AU [facility] CPT-4: 55735 02/22/2015 ([id number]) OFFICE/OUTPATIENT VISIT EST Diagnosis: Thoracic back pain[ICD9: 724.1] Diagnosis: Thoracic degenerative disc disease[ICD9: 722.51] Diagnosis: Scoliosis[ICD9: 737.30] Sapna PARDO [facility] CPT-4: 25636 12/02/2014 ([id number]) OFFICE/OUTPATIENT VISIT EST Diagnosis: Thoracic back pain[ICD9: 724.1] Diagnosis: ACTINIC KERATOSIS[ICD9: 702.0] Sapan LIVE [facility] CPT-4: 17553 08/18/2014 OFFICE/OUTPATIENT VISIT NEW Diagnosis: HYPERTENSION[ICD9: 401.9] Diagnosis: Thoracic back pain[ICD9: 724.1] Diagnosis: GERD[ICD9: 530.81] Diagnosis: Adrenal tumor[ICD9: 239.7] Sapna AU [facility] CPT-4: 93178 07/08/2014 ([id number]) OFFICE/OUTPATIENT VISIT NEW Diagnosis: HYPERTENSION[ICD9: 401.9] Diagnosis: GERD[ICD9: 530.81] Sapna PROCTOR [facility] CPT-4: 86967 07/08/2014 Plan of Care Planned Activity Notes Codes Status Date Visit Diagnosis Plan: Allergic rhinitis Discussion: Cl aritin 10mg po BID Call Sunday with how symptoms are doing Will also add famotodine at bedtime to cover for reflux etiology ICD-9 : 477.9 ICD-10 : J30.9 12/19/2019 Appointment: Sapna Live WPtel: [address] [place], [place] [id number] TELEMEDICINE 12/19/2019 Patient Education: famotidine- [employer] Coupon [id number] https://www.[employer]/sampleMerLion Pharmaceuticals/resources/getResource/61/[email or web address]-l0 Completed 12/19/2019 Visit Diagnosis Plan: Infected sebaceous cyst Discussi on: Sent out 1 week of doxycycline ICD-9 : 706.2 ICD-10 : L72.3 11/03/2019 Appointment: Sapna Live WPtel: [phone] WOUND CARE 11/03/2019 Visit Diagnosis Plan: Local [...] ICD-10 : L08.9 10/27/2019 Appointment: Lashell Joe [address] [place], [place] [id number] ACUTE ILLNESS 10/27/2019 Patient Education: tramadol- [employer] Coupon [id number] https://www.Cnekt.[employer]/samplemd/resources/getResource/61/98g81m2o-a5c0-5553-k6 Completed 10/27/2019 Visit Plan: Update Low Dose [...] I35.1 10/02/2019 Appointment: Sapna Live WPtel: [phone] Kevin Rai [id number] FOLLOW UP 10/02/2019 Care Plan: Referral Order SNOMED-CT : 30 [id number] Pending 10/02/2019 Visit Diagnosis Plan: Chest pain Discussion: will star t with cxray and rib xray. discussed that could be lung, rib, muscle but will start with cxray and patient may need echo. he verbalized understanding. ICD-9 : 786.50 ICD-10 : R07.9 08/25/2019 Appointment: Lashell Joe [employer] [id number] ACUTE ILLNESS 08/25/2019 Visit Diagnosis Plan: Thoracic back pain Discussion: c hronic pain. will refer to dr. stallings at [place] for evaluation and treatment ICD-9 : 724.1 ICD-10 : M54.6 08/13/2019 Visit Diagnosis Plan: Disorder of kidney and [...] ICD-10 : N28.9 08/13/2019 Visit Diagnosis Plan: Personal history of [...] ct of lungs to be done at [facility]. ICD-9 : V15.82 ICD-10 : Z87.891 [...] ICD-10 : E27.8 08/13/2019 Appointment: Lashell Joe [address] [place], [place] [id number] [place] FOLLOW UP 08/13/2019 Visit Diagnosis Plan: Sigmoid diverticulitis Discussio n: Bactrim/Flagyl [place] diet To ER this weekend if worsening ICD-9 : 562.11 ICD-10 : K57.32 07/03/2019 Visit Diagnosis Plan: Jock itch Discussion: Diflucan a nd topical nystatin ICD-9 : 110.3 ICD-10 : B35.6 07/03/2019 Visit Diagnosis Plan: Renal insufficiency Discussion: Labs discussed Continue off NSAIDS Hydrate Recheck Chemistry 3mos ICD-9 : 593.9 ICD-10 : N28.9 07/03/2019 Appointment: Sapna Live WPtel: [phone] [facility] FOLLOW UP 07/03/2019 Patient Education: fluconazole- [employer] Coupon [id number] Completed 07/03/2019 Patient Education: nystatin- [employer] Coupon [id number] Completed 07/03/2019 Visit Diagnosis Plan: Disorder of [...] ICD-10 : R25.2 06/05/2019 Appointment: Lashell Joe [address] [place], [place] [phone] NO SHOW - FORGIVEN 06/05/2019 Appointment: Lashell Joe [address] [place], [place] [phone] ACUTE ILLNESS 06/05/2019 Visit Diagnosis Plan: Pain [...] : 698.9 ICD-10 : L29.8 05/21/2019 Appointment: David Joeysrancho Martinez [address] ACUTE ILLNESS 05/21/2019 Patient Education: hydroxyzine HCl- [employer] Coupon [id number] https://www.Cnekt.[employer]/samplemd/resources/getResource/61/fjhp37q1-s94j-74oj-36 Completed 05/21/2019 Appointment: Sapna Live WPtel: [address] [place] [address] 05/19/19 1645---see note put in chart today (km) CANCELED 05/19/2019 Appointment: Sapna Live WPtel: [address] [place] [address] US CANCELED 05/05/2019 Appointment: Sapna Live WPtel: [address] [place] [address] UA 04/21/2019 Visit Diagnosis Plan: Diverticulitis of [...] ICD-10 : K59.09 02/24/2019 Appointment: Lashell Joe [address] Hospital Follow Up 02/24/2019 Visit Diagnosis Plan: Diverticulitis of large intestine without perforation or abscess with bleeding Discussion: Continue flagyl and cipro. A dvance diet to bland. BRAT diet advised. Avoid nuts, seeds, popcorn, roughage. RTC if abdominal pain worsens or does not improve. ICD-9 : 562.13 ICD-10 : K57.33 02/04/2019 Appointment: Nancy Mendiola [facility] FOLLOW UP 02/04/2019 Visit Diagnosis Plan: Left [...] ICD-10 : R10.32 01/29/2019 Appointment: Nancy Mendiola [facility] ACUTE ILLNESS 01/29/2019 Care Plan: CT PELVIS [...] : K21.9 12/19/2018 Appointment: Sapna Live WPtel: [phone] [facility] ACUTE ILLNESS 12/19/2018 Visit Diagnosis Plan: Gastro-esophageal reflux disease without esophagitis Discussion: Continue protonix at 40mg daily Hold mobic No NSAIDS Hold all MVs If persists then will need EGD ICD-9 : 530.81 ICD-10 : K21.9 11/11/2018 Appointment: Sapna Live WPtel[phone] [facility] [facility] 11/11/2018 Visit Diagnosis Plan: Encounter for [facility] adult medical examination without abnormal [...] ICD-10 : K91.89 10/09/2018 Appointment: Lashell Joe [address] [place] [address] Annual Well Visit 10/09/2018 Patient Education: gabapentin- [employer] Coupon [id number] Completed 10/09/2018 Patient Education: Kegel Exercises Comple catalina 10/09/2018 Patient Education: High Blood Pressure Co mpleted 10/09/2018 Visit Diagnosis Plan: Pain in right knee Discussion: c orticosteroid injection administered as described above. patient tolerated well. instructed to rtc in 3- 4 months if needed for additional injection. ICD-9 : 719.46 ICD-10 : M25.561 02/19/2018 Appointment: Lashell Joe [address] [place], [place] [address] OFFICE SURGERY 02/19/2018 Patient Education: Patient Medication [...] ICD-10 : M25.561 02/12/2018 Appointment: Lashell Joe [address] [place] [address] ACUTE ILLNESS 02/12/2018 Patient Education: Patient Medication Summary Completed 02/12/2018 Care Plan: X-RAY EXAM OF KNEE 1 [place] 2 [place] : [address]-3 Pending 02/12/2018 Visit Diagnosis Plan: Essential (primary) [...] ICD-10 : R07.89 12/03/2017 Appointment: Lashell Joe [address] [place] [address] ESTABLISHED PATIENT 12/03/2017 Patient Education: Patient Medication Summary Completed 12/03/2017 Visit Diagnosis Plan: Essential (primary) hypertension Discussion: Increase quinapril to 40mg daily BP check in 1month ICD-9 : 401.9 ICD-10 : I10 09/11/2017 Appointment: Sapna Live WPtel: [address] [place] [address] FOLLOW UP 09/11/2017 Patient Education: Patient Medication Summary Completed 09/11/2017 Appointment: Sapna Live WPtel: [address] [place] [address] RESCHEDULED 08/22/2017 Visit Diagnosis Plan: Essential (primary) hypertension Discussion: Increase quinapril to 20mg daily Follow Up: 1 months ICD-9 : 401.9 ICD-10 : I10 08/13/2017 Visit Diagnosis Plan: Encounter for [facility] adult medical examination without abnormal findings Discussion: Update fasting lab ICD-9 : V70.9 ICD-10 : Z00.00 08/13/2017 Visit Diagnosis Plan: Left lower quadrant pain Discuss ion: Update colonoscopy ICD-9 : 789.04 ICD-10 : R10.32 08/13/2017 Appointment: Sapna Live WPtel: [address] [place] [address] Annual Well Visit 08/13/2017 Patient Education: Patient Medication Summary Completed 08/13/2017 Appointment: Sapna Live WPtel: [phone] [facility] THROAT SWAB 02/13/2017 Patient Education: Patient Medication Summary Completed 02/13/2017 Appointment: Sapna Live WPtel: [phone] [facility] BP CHECK 11/17/2016 Patient Education: Patient Medication Summary Completed 11/17/2016 Visit Plan: Due for colonoscopy in 2018 Had shingles shot and flu shot Change quinapril hct to plain quinapril and see if muscles twitches improve Fwup with Dr. Braga Lab discussed Discussed diet/exercise at length Check CT abdomen Recheck 3mos 07/19/2016 Appointment: Sapna Live WPtel: [phone] [place] [id number] 07/18 confirmed`sl PHYSICAL 07/19/2016 Patient Education: Patient [...] Lipids fasting at earliest convenience 06/09/2016 Appointment: Sobia Monreal WPtel: [phone] [facility] ACUTE ILLNESS 06/09/2016 Patient Education: Patient Medication Summary Completed 06/09/2016 Referral: Demario Braga WPtel: [phone] [id number] [place] Referral Initiated 11/12/2015 Visit Plan: Continue indwelling catheter until follow-up with Dr. Omi Continue Bactrim and Cipro Pyridium TID for Bladder spasms 11/08/2015 Appointment: Chelsie Teixeira WPtel: [address] [place] [address] ER Follow UP 11/08/2015 Patient Education: Patient Medication Summary Completed 11/08/2015 Referral: Abdiel Tucker WPtel: [phone] Referral Initiated 06/21/2015 Visit Plan: Prednisone 20mg daily for 1w [place] See surgery of cyst removal 06/14/2015 Appointment: Sapna Live WPtel: [phone] [address] [place], [place] [id number] 06/11 cn 06/14 [facility] FOLLOW UP 2014 Patient Education: Patient Medication Summary Completed 06/14/2015 Visit Plan: Warm moist compresses to Lef t shoulder lesion and apply topical Mupirocin twice daily Complete Cephalexin x 7 days as directed Resume Culturelle daily 05/18/2015 Appointment: Chelsie Teixeira WPtel: [address] [place] [address] ACUTE ILLNESS 05/18/2015 Patient Education: Patient Medication Summary Completed 05/18/2015 Visit Plan: Check fasting lab Use pain m eds prn with miralax on the day that takes pain meds 02/22/2015 Appointment: Sapna Live WPtel: [address] [place], [place] [id number] 02/19 [facility] 02/19 appt confirmed-lb ACUTE ILLNESS 5 Patient Education: Patient Medication Summary Completed 02/22/2015 Visit Plan: Increase neurontin to 300mg q HS Continue flexeril and tramadol Call in 1mo on how higher dose of gabapentin 12/02/2014 Appointment: Sapna Live WPtel: [address] [place], [place] [address] FOLLOW UP 12/02/2014 Patient Education: Patient Medication Summary Completed 12/02/2014 Referral: Eric Angelo WPtel: [address] [facility] [id number] [place] Referral Appointment Confirmed 09/15/2014 Visit Plan: Proceed with pain doctor for possible injection vs nerve block Trial of lidoderm patch Cryotherapy to lesions as above 08/18/2014 Appointment: Sapna Live WPtel: [address] [facility] ACUTE ILLNESS 08/18/2014 Patient Education: Patient Medication Summary Completed 08/18/2014 Patient Education: Patient Medication Summary Completed 08/13/2014 Visit Plan: Continue current meds Obtain most recent lab results Check thoracic spine x-rays Needs updated CT scan of adrenal tumor 07/08/2014 Appointment: Sapna Live WPtel: [address] [facility] 07/07 NEW PATIENT 07/08/2014 Patient Education: Patient Medication Summary Completed 07/08/2014 Patient Education: Patient Medication Summary Completed 07/08/2014 Referral: Suhail Cardenas WPtel: [phone] [id number] [place] Referral Completed Referral: Toby Bettencourt WPtel: 1 [facility] A [id number] [place] Referral Completed Referral: Rosario Monahan WPtel: [phone] [facility] C [place] Referral Appointment Requested Instructions Comment [...]
--- OUTSIDE RECORDS SUMMARY | 2020-02-05 07:46 | XMS REPORT | CCD ---
Author Author Jai Live D.O. Organization [facility] Address [address] [place] [address] Phone Care Team Providers Care Cloth Hand Name Role Phone Sapna Live D.O., PP Unavailable CCM Unavailable Summary Purpose Interface Exchange Insurance Providers Payer name Policy type / Coverage type Covered republican ID Effective Begin Date Effective End Date GPA Commercial Insurance [id number] 2019 Unknown Family history Mother Diagnosis Age At Onset Cancer Unknown Father Diagnosis Age At Onset Congestive heart failure Unknown Coronary Artery Disease(CAD) Unknown Social History Social History Element Codes Description Effective Dates Tobacco history SNOMED CT: 2396606 Former smoker 10/09/2018 Marital status Unknown 07/08/2014 Number of children Unknown 1 07/08/2014 Employment Unknown Currently employed [employer] 07/08/[address]: 893232632 Never drinks alcohol 2013 Has the patient [...] mg tablet,extended release 24 hr RxNor m: 405105 1 Tablet(s) Oral two times a day 12/22/2019 12/29/2019 Inactive clarithromycin ER 500 mg tablet,extended release 24 hr RxNor m: 282658 1 Tablet(s) Oral two times a day [...] Date Active famotidine 20 mg tablet RxNorm: 994277 1 Tablet(s) Oral QPM for postnasal drip/stomach 12/19/2019 01/18/2020 Active tramadol 50 mg tablet RxNorm: 665328 1 Tablet(s) Oral t hree times a day as needed for pain along with two tylenol 12/03/2019 No Stop Date Active doxycycline hyclate 100 mg capsule RxNorm: 4143830 1 Cap lee(s) Oral two times a day 11/03/2019 11/02/2019 Inactive doxycycline hyclate 100 mg capsule RxNorm: 7034395 1 Cap lee(s) Oral two times a day 11/03/2019 11/10/2019 Inactive tramadol 50 mg tablet RxNorm: 874643 1 Tablet(s) Oral t hree times a day as needed for pain along with two tylenol 10/27/2019 10/26/2019 Inactive tramadol 50 mg tablet RxNorm: 468513 1 Tablet(s) Oral t hree times a day as needed for pain along with two tylenol 10/27/2019 10/27/2019 Inactive cyclobenzaprine 10 mg tablet RxNorm: 280444 1 Tablet(s) Oral th ree times a day 10/27/2019 12/18/2019 Inactive Bactrim DS 800 mg-160 mg tablet RxNorm: 644806 1 Tablet(s) Oral two times a day 10/27/2019 11/03/2019 Inactive Bactrim DS 800 mg-160 mg tablet RxNorm: 602177 1 Tablet(s) Oral two times a day 10/27/2019 10/26/2019 Inactive tramadol 50 mg tablet RxNorm: 418071 1 Tablet(s) Oral t hree times a day as needed for pain along with two tylenol 09/29/2019 10/26/2019 Inactive quinapril 40 mg tablet RxNorm: 715206 1 Tablet(s) Oral QD 09/18/2019 03/15/2020 Active Patient requests 90 days supply tramadol 50 mg tablet RxNorm: 704700 1 Tablet(s) Oral t hree times a day as needed for pain along with two tylenol 08/28/2019 08/28/2019 Inactive tramadol 50 mg tablet RxNorm: 585036 1 Tablet(s) PO TID as needed for pain along with two tylenol 08/25/2019 08/27/2019 Inactive pantoprazole 40 mg tablet,delayed release RxNorm: 293357 1 Tabl et(s) Oral QD 08/13/2019 No Stop Date Active Vitamin D3 1,000 unit capsule RxNorm: 703964 1 Capsule(s) Oral QD 1 10/13/2018 12/18/2019 Inactive tamsulosin 0.4 mg capsule RxNorm: 716806 1 Capsule(s) Oral QPM 07/2612/18/2019 Inactive Protonix 40 mg tablet,delayed release RxNorm: 270980 TA KE 1 TABLET BY MOUTH TWICE A DAY 08/04/2019 08/12/2019 Inactive Flagyl 500 mg tablet RxNorm: 944405 1 Tablet(s) Oral three time s a day 07/03/2019 07/13/2019 Inactive fluconazole 100 mg tablet RxNorm: 567209 1 Tablet(s) Oral QD 201807/10/2019 Inactive Bactrim DS 800 mg-160 mg tablet RxNorm: 929791 1 Tablet(s) Oral two times a day 07/03/2019 07/13/2019 Inactive nystatin 100,000 unit/gram topical cream RxNorm: 761231 Application Topical two times a day 07/03/2019 08/12/2019 Inactive gabapentin 600 mg tablet RxNorm: 671504 Tablet(s) TAKE 1 TABLET BY MOUTH EVERY NIGHT AT BEDTIME 06/25/2019 08/12/2019 Inactive - First Attempt Ref: [id number] quinapril 40 mg tablet RxNorm: 682617 1 Tablet(s) Oral QD 06/23/2019 09/17/2019 Inactive Patient requests 90 days supply tramadol 50 mg tablet RxNorm: 780094 1 Tablet(s) PO TID as needed for pain along with two tylenol 05/23/2019 08/24/2019 Inactive hydroxyzine HCl 25 mg tablet RxNorm: 145469 1 Tablet(s) PO TID as needed 05/21/2019 08/12/2019 Inactive Elimite 5 % topical cream RxNorm: 532508 1 Application TOP QHS apply head to toe and was off in morning 05/19/2019 07/02/2019 Inactive Protonix 40 mg tablet,delayed release RxNorm: 471194 1 Tablet(s ) PO BID 05/05/2019 08/02/2019 Inactive - First Attempt Ref: [id number] gabapentin 600 mg tablet RxNorm: 611262 Tablet(s) TAKE 1 TABLET BY MOUTH EVERY NIGHT AT BEDTIME 04/25/2019 06/24/2019 Inactive - First Attempt Ref: [id number] tramadol 50 mg tablet RxNorm: 389589 1 Tablet(s) PO TID as needed for pain along with two tylenol 04/21/2019 05/22/2019 Inactive quinapril 40 mg tablet RxNorm: 753090 1 Tablet(s) PO QD 04/01/2019 Inactive Patient requests 90 days supply fenofibrate micronized 134 mg capsule RxNorm: 226635 1 Capsule(s) PO QD Due for updated fasting labs 03/31/2019 08/12/2019 Inactive dicyclomine 10 mg capsule RxNorm: 338076 1 Capsule(s) PO TID as needed 02/24/2019 05/20/2019 Inactive Flagyl 500 mg tablet RxNorm: 564812 1 Tablet(s) PO Q8H 02/24/201908/2019 Inactive ciprofloxacin 500 mg tablet RxNorm: 824044 1 Tablet(s) PO BID 02/2403/09/2019 Inactive Flagyl 500 mg tablet RxNorm: 036866 1 Tablet(s) PO Q6H 01/30/2019 Inactive ciprofloxacin 500 mg tablet RxNorm: 049700 1 Tablet(s) PO BID 01/3001/29/2019 Inactive Flagyl 500 mg tablet RxNorm: 611773 1 Tablet(s) PO Q6H 01/30/201904/2019 Inactive ciprofloxacin 500 mg tablet RxNorm: 522582 1 Tablet(s) PO BID 01/3002/05/2019 Inactive gabapentin 600 mg tablet RxNorm: 346207 TAKE 1 TABLET B Y MOUTH EVERY NIGHT AT BEDTIME 01/27/2019 04/24/2019 Inactive - First Attempt Ref: [id number] tramadol 50 mg tablet RxNorm: 695104 1 Tablet(s) PO TID as needed for pain along with two tylenol 01/08/2019 04/20/2019 Inactive fenofibrate micronized 134 mg capsule RxNorm: 465014 1 Capsule(s) PO QD Due for updated fasting labs 01/02/2019 03/30/2019 Inactive quinapril 40 mg tablet RxNorm: 960891 1 Tablet(s) PO QD 01/01/2019 Inactive Patient requests 90 days supply Protonix 40 mg tablet,delayed release RxNorm: 712563 TA KE 1 TABLET BY MOUTH TWICE A DAY 01/01/2019 03/31/2019 Inactive - First Attempt Ref: [id number] Protonix 40 mg tablet,delayed release RxNorm: 036324 TA KE 1 TABLET BY MOUTH TWICE A DAY 12/25/2018 12/31/2018 Inactive - First Attempt Ref: [id number] gabapentin 600 mg tablet RxNorm: 186852 TAKE 1 TABLET B Y MOUTH EVERY NIGHT AT BEDTIME 12/02/2018 01/26/2019 Inactive - First Attempt Ref: [id number] Protonix 40 mg tablet,delayed release RxNorm: 617803 1 Tablet(s ) PO BID 11/11/2018 12/24/2018 Inactive Protonix 40 mg tablet,delayed release RxNorm: 042810 1 Tablet(s ) PO BID 10/09/2018 11/10/2018 Inactive gabapentin 600 mg tablet RxNorm: 407509 1 Tablet(s) PO QHS 10/09/1912/01/2018 Inactive quinapril 40 mg tablet RxNorm: 869540 1 Tablet(s) PO QD 1 TABLE T(S) PO QD 08/08/2018 08/07/2018 Inactive Patient requests 9 0 days supply quinapril 40 mg tablet RxNorm: 594314 1 Tablet(s) PO QD 08/08/2018 Inactive Patient requests 90 days supply meloxicam 15 mg tablet RxNorm: 212724 1 Tablet(s) PO QD 08/08/2018 Inactive gabapentin 300 mg capsule RxNorm: 424973 1 CAPSULE(S) P O QHS DUE FOR WELLNESS VISIT 08/07/2018 10/08/2018 Inactive due for followup meloxicam 15 mg tablet RxNorm: 635786 Tablet(s) 1 TABLET(S) PO QD 1 10/07/2017 08/07/2018 Inactive fenofibrate micronized 134 mg capsule RxNorm: 702105 1 Capsule(s) PO QD Needs updated fasting labs!!!!!! 07/08/2018 07/07/2018 Inactive fenofibrate micronized 134 mg capsule RxNorm: 370408 1 Capsule( s) PO QD 07/08/2018 01/01/2019 Inactive fenofibrate micronized 134 mg capsule RxNorm: 704232 1 Capsule(s) PO QD Needs updated fasting labs!!!!!! 06/21/2018 07/08/2018 Inactive Medrol (Daniel) 4 mg tablets in a dose pack RxNorm: 478678 Tablet(s) PO As Directed 05/06/2018 05/05/2018 Inactive Medrol (Daniel) 4 mg tablets in a dose pack RxNorm: 584796 Tablet(s) PO As Directed 05/06/2018 08/07/2018 Inactive quinapril 40 mg tablet RxNorm: 386379 1 TABLET(S) PO QD 05/02/2018 Inactive Patient requests 90 days supply fenofibrate micronized 134 mg capsule RxNorm: 065263 1 Capsule(s) PO QD Needs updated fasting labs 04/29/2018 05/28/2018 Inactive Move Free Joint Health 750 mg-100 mg-1.65 mg-108 mg tablet R xNorm: 1 Tablet(s) PO QD 02/12/2018 03/13/2018 Inactive fenofibrate micronized 134 mg capsule RxNorm: 631579 Ca psule(s) 1 CAPSULE(S) PO QD 01/29/2018 06/21/2018 Inactive quinapril 40 mg tablet RxNorm: 871391 1 TABLET(S) PO QD 11/26/2017 Inactive Patient requests 90 days supply fenofibrate micronized 134 mg capsule RxNorm: 551572 1 CAPSULE( S) PO QD 11/06/2017 01/29/2018 Inactive gabapentin 300 mg capsule RxNorm: 289596 1 CAPSULE(S) P O QHS DUE FOR WELLNESS VISIT 10/24/2017 07/20/2018 Inactive due for followup meloxicam 15 mg tablet RxNorm: 621769 1 TABLET(S) PO QD 10/24/2017 Inactive quinapril 40 mg tablet RxNorm: 645395 1 Tablet(s) PO QD 10/24/2017 Inactive fenofibrate micronized 134 mg capsule RxNorm: 739791 1 Capsule( s) PO QD 08/22/2017 11/05/2017 Inactive fenofibrate micronized 134 mg capsule RxNorm: 377575 1 Capsule( s) PO QD 08/22/2017 08/21/2017 Inactive quinapril 20 mg tablet RxNorm: 151614 1 Tablet(s) PO QD 08/13/2017 Inactive gabapentin 300 mg capsule RxNorm: 441021 1 Capsule(s) P O QHS Due for wellness visit 08/06/2017 10/23/2017 Inactive due for followup gabapentin 300 mg capsule RxNorm: 312261 1 Capsule(s) P O QHS Due for wellness visit 08/02/2017 08/05/2017 Inactive due for followup meloxicam 15 mg tablet RxNorm: 137840 1 Tablet(s) PO QD 08/01/2017 Inactive gabapentin 300 mg capsule RxNorm: 883860 1 Capsule(s) P O QHS Due for wellness visit 08/01/2017 08/01/2017 Inactive due for followup gabapentin 300 mg capsule RxNorm: 610878 1 Capsule(s) P O QHS Due for wellness visit 08/01/2017 08/02/2017 Inactive gabapentin 300 mg capsule RxNorm: 363621 1 Capsule(s) PO QHS 201605/12/2017 Inactive quinapril 10 mg tablet RxNorm: 122233 1 Tablet(s) PO QD replace s quinapril hct 02/12/2017 08/12/2017 Inactive meloxicam 15 mg tablet RxNorm: 646477 1 Tablet(s) PO QD 02/05/2017 Inactive quinapril 10 mg tablet RxNorm: 312633 1 Tablet(s) PO QD replace s quinapril hct 11/16/2016 02/12/2017 Inactive gabapentin 300 mg capsule RxNorm: 436478 1 Capsule(s) PO QHS 201602/12/2017 Inactive quinapril 10 mg tablet RxNorm: 338210 1 Tablet(s) PO QD replace s quinapril hct 10/16/2016 11/15/2016 Inactive gabapentin 300 mg capsule RxNorm: 296385 1 Capsule(s) PO QHS 201511/15/2016 Inactive quinapril 10 mg tablet RxNorm: 787330 1 Tablet(s) PO QD replace s quinapril hct 07/19/2016 10/15/2016 Inactive meloxicam 15 mg tablet RxNorm: 497501 1 Tablet(s) PO QD 07/10/2016 Inactive meloxicam 15 mg tablet RxNorm: 257818 TAKE ONE TABLET BY MOUTH LUKE Y 07/10/2016 07/09/2016 Inactive meloxicam 15 mg tablet RxNorm: 511972 1 Tablet(s) PO QD 07/06/2016 Inactive meloxicam 15 mg tablet RxNorm: 737934 1 Tablet(s) PO QD 06/09/2016 Inactive Multivitamin & Mineral Formula tablet RxNorm: 1 Tablet(s) PO Q D 06/02/2016 07/01/2016 Inactive tamsulosin 0.4 mg capsule RxNorm: 666433 1 Capsule(s) PO QHS 201507/01/2016 Inactive Move Free Joint Health 750 mg-100 mg-1.65 mg-108 mg tablet R xNorm: 1 Tablet(s) PO QD 06/02/2016 07/01/2016 Inactive gabapentin 300 mg capsule RxNorm: 449635 1 Capsule(s) PO QHS 201508/27/2016 Inactive gabapentin 300 mg capsule RxNorm: 492654 Capsule(s) ALFONZO E ONE CAPSULE BY MOUTH AT BEDTIME 02/28/2016 05/27/2016 Inactive quinapril 10 mg-hydrochlorothiazide 12.5 mg tablet RxNorm: 3 35111 Tablet(s) TAKE ONE TABLET BY MOUTH EVERY MORNING 01/14/2016 07/18/2016 Inactive gabapentin 300 mg capsule RxNorm: 891447 TAKE ONE CAPSULE BY MO [facility] AT BEDTIME 12/28/2015 02/27/2016 Inactive Urecholine 25 mg tablet RxNorm: 697713 1 Tablet(s) PO TID 11/09/2015 07/18/2016 Inactive phenazopyridine 100 mg tablet RxNorm: 6510789 1 Tablet(s ) PO TID as needed for bladder spasms. 11/08/2015 11/08/2015 Inactive quinapril 10 mg-hydrochlorothiazide 12.5 mg tablet RxNorm: 3 45948 TAKE ONE TABLET BY MOUTH EVERY MORNING 10/15/2015 01/13/2016 Inactive gabapentin 300 mg capsule RxNorm: 404346 1 Tablet(s) PO QD TAKE ONE CAPSULE BY MOUTH EVERY NIGHT AT BEDTIME 09/23/2015 12/21/2015 Inactive quinapril 10 mg-hydrochlorothiazide 12.5 mg tablet RxNorm: 3 83721 Tablet(s) TAKE ONE TABLET BY MOUTH EVERY MORNING 07/14/2015 10/14/2015 Inactive gabapentin 300 mg capsule RxNorm: 107871 1 Tablet(s) PO QD TAKE ONE CAPSULE BY MOUTH EVERY NIGHT AT BEDTIME 06/25/2015 09/23/2015 Inactive prednisone 20 mg tablet RxNorm: 712153 1 Tablet(s) PO QD 06/14/2015 0 06/20/2015 Inactive cephalexin 500 mg capsule RxNorm: 346093 1 Capsule(s) PO BID 201405/27/2015 Inactive mupirocin 2 % topical ointment RxNorm: 230889 TOP BID 05/18/2015 0 06/13/2015 Inactive quinapril 10 mg-hydrochlorothiazide 12.5 mg tablet RxNorm: 3 02641 Tablet(s) TAKE ONE TABLET BY MOUTH EVERY MORNING 04/06/2015 07/14/2015 Inactive gabapentin 300 mg capsule RxNorm: 358619 1 Capsule(s) PO QHS 201404/01/2015 Inactive [SAVINGS FOR NON-COVERED LILIANA GS -- BIN:870887, PCN: ASPROD1, Group: XXXXX, ID# [id number], Questions: . THIS IS NOT INSURANCE.] gabapentin 300 mg capsule RxNorm: 080484 1 Capsule(s) PO QHS 201406/25/2015 Inactive [SAVINGS FOR NON-COVERED LILIANA GS -- BIN:652968, PCN: ASPROD1, Group: XXXXX, ID# [id number], Questions: . THIS IS NOT INSURANCE.] quinapril 10 mg-hydrochlorothiazide 12.5 mg tablet RxNorm: 3 57538 TAKE ONE TABLET BY MOUTH EVERY MORNING 12/11/2014 04/05/2015 Inactive gabapentin 300 mg capsule RxNorm: 455851 1 Capsule(s) PO QHS 201404/02/2015 Inactive [SAVINGS FOR NON-COVERED LILIANA GS -- BIN:346274, PCN: ASPROD1, Group: XXXXX, ID# [id number], Questions: . THIS IS NOT INSURANCE.] cyclobenzaprine 10 mg tablet RxNorm: 506721 1 Tablet(s) PO TID as needed for muscle spasm for muscle spasm 12/02/2014 02/21/2015 Inactive [S AVINGS FOR NON- COVERED DRUGS -- BIN:625250, PCN: ASPROD1, Group: XXXXX, ID# [id number], Questions: . THIS IS NOT INSURANCE.] gabapentin 100 mg capsule RxNorm: 158273 1 Capsule(s) PO QHS 201412/01/2014 Inactive [SAVINGS FOR NON-COVERED LILIANA GS -- BIN:562786, PCN: ASPROD1, Group: XXXXX, ID# [id number], Questions: . THIS IS NOT INSURANCE.] ibuprofen 800 mg tablet RxNorm: 085568 1 Tablet(s) PO T ID as needed low back pain 11/11/2014 11/23/2014 Inactive [SAVINGS FOR NON -COVERED DRUGS -- BIN:959996, PCN: ASPROD1, Group: XXXXX, ID# [id number], Questions: . THIS IS NOT INSURANCE.] ibuprofen 800 mg tablet RxNorm: 552310 1 Tablet(s) PO T ID as needed low back pain 11/09/2014 11/10/2014 Inactive [SAVINGS FOR NON -COVERED DRUGS -- BIN:538156, PCN: ASPROD1, Group: XXXXX, ID# [id number], Questions: . THIS IS NOT INSURANCE.] Zorvolex 35 mg capsule RxNorm: 9672554 1 Tablet(s) PO TID 08/27/2014 10/01/2014 Inactive [SAVINGS FOR UNINSURED PATIENTS -- BIN:0 91200, PCN: ASPROD1, Group: [id number], ID# [id number], Process claim through [employer], for questions: . THIS IS NOT INSURANCE.] quinapril 10 mg-hydrochlorothiazide 12.5 mg tablet RxNorm: 3 96602 1 Tablet(s) PO QAM 08/27/2014 11/24/2014 Inactive Lidoderm 5 % (700 mg/patch) adhesive patch RxNorm: 8539775 Application TOP for 12hours then off for pain 08/18/2014 02/21/2015 Inactive [SAVIN GS FOR UNINSURED PATIENTS -- BIN:882575, PCN: ASPROD1, Group: AME08, ID# [id number], Process claim through [employer], for questions: . THIS IS NOT INSURANCE.] Zorvolex 35 mg capsule RxNorm: 2805715 1 Tablet(s) PO TID 08/13/2014 08/12/2014 Inactive Zorvolex 35 mg capsule RxNorm: 2090332 1 Tablet(s) PO TID 08/13/2014 08/24/2014 Inactive [SAVINGS FOR UNINSURED PATIENTS -- BIN:0 07694, PCN: ASPROD1, Group: [id number], ID# [id number], Process claim through [employer], for questions: . THIS IS NOT INSURANCE.] Aspirin Child 81 mg chewable tablet RxNorm: 723411 1 Tablet(s) PO QD No Start Date Active ibuprofen 800 mg tablet RxNorm: 998031 1 Tablet(s) PO T ID as needed low back pain No Start Date 11/08/2014 Inactive cyclobenzaprine 10 mg tablet RxNorm: 231421 1 Tablet(s) PO TID No S tart Date 08/12/2017 Inactive garlic 1,000 mg capsule RxNorm: 335595 1 Capsule(s) PO QD No Start Date 04/22/2019 Inactive tramadol 50 mg tablet RxNorm: 533420 1 Tablet(s) PO Q4-6H as ne eded for pain No Start Date 02/21/2015 Inactive tramadol 50 mg tablet RxNorm: 949293 1 Tablet(s) PO TID as needed for pain along with two tylenol No Start Date 01/07/2019 Inactive krill oil oral RxNorm: 73604 oral No Start Date 11/11/2018 Inacti ve Vitamin D3 2,000 unit tablet RxNorm: 470043 1 Tablet(s) PO QD No St art Date 08/12/2019 Inactive gabapentin 100 mg tablet RxNorm: 512629 1 Tablet(s) PO QD No Start Date 11/10/2014 Inactive Zofran 4 mg tablet RxNorm: 496552 1 Tablet(s) PO Q6H as needed No S tart Date 08/12/2019 Inactive Elimite 5 % topical cream RxNorm: 096962 1 Application TOP QHS apply head to toe and was off in morning No Start Date 05/18/2019 Inactive gabapentin 100 mg capsule RxNorm: 117363 1 Capsule(s) PO QHS No Sta rt Date 11/10/2014 Inactive aspirin 325 mg tablet RxNorm: 324656 2 Tablet(s) PO QD No Start Date 08/17/2014 Inactive Fish Oil 1,000 mg capsule RxNorm: 1 Capsule(s) PO QD No Start Date 10/08/2018 Inactive quinapril 10 mg-hydrochlorothiazide 12.5 mg tablet RxNorm: 3 52409 1 Tablet(s) PO QAM No Start Date 08/26/2014 Inactive quinapril 40 mg tablet RxNorm: 781373 1 Tablet(s) PO QD No Start Da te 10/23/2017 Inactive Medrol (Daniel) 4 mg tablets in a dose pack RxNorm: 614761 Tablet(s) PO As Directed No Start Date 05/05/2018 Inactive Urecholine 25 mg tablet RxNorm: 357524 1 Tablet(s) PO TID No Start Date 11/08/2015 Inactive cyclobenzaprine 10 mg tablet RxNorm: 804571 1/2-1 Table t(s) PO TID as needed for muscle spasm No Start Date 12/01/2014 Inactive tamsulosin 0.4 mg capsule RxNorm: 696311 2 Capsule(s) PO QPM No Sta rt Date 08/12/2019 Inactive hydrocodone 5 mg-acetaminophen 325 mg tablet RxNorm: 029380 1 -2 Tablet(s) PO Q6H as needed No Start Date 05/20/2019 Inactive loratadine 10 mg tablet RxNorm: 841333 1 Tablet(s) PO QD No Start D ate 07/07/2014 Inactive Medication Administered No Medication Administered data Immunizations Vaccine Codes Date Status Influenza CVX: 141 07/21/2019 Results Observation Observation Code Item Item Code Result Date S ervice Location CULTURE, AEROBIC BACTERIA 79753 CULTURE, AEROBIC BACTERIA SEE NOTE 10/30/2019 [facility] [address] [place] [address] CULTURE, URINE, ROUTINE 395 CULTURE SEE NOTE 1 10/15/2018 [facility] Seun Bec[facility] [address] [place] [address] CULTURE, URINE, ROUTINE 395 CULTURE, URINE, ROUTINE SEE NOTE 08/15/2019 [facility] [address] CBC (H/H, RBC, INDICES, WBC, PLT) 01243 WHITE BLOOD CELL COU NT 7.9 Thousand/uL 08/14/[address] [address] CBC (H/H, RBC, INDICES, WBC, PLT) 49213 RED BLOOD CELL COUNT 4.93 Million/uL 08/14/2019 [facility] [address] CBC (H/H, RBC, INDICES, WBC, PLT) 95069 HEMOGLOBIN 15 .4 g/dL 08/14/[address] [facility] [address] CBC (H/H, RBC, INDICES, WBC, PLT) 86426 HEMATOCRIT 45 .0 % 08/14/[address] [address] CBC (H/H, RBC, INDICES, WBC, PLT) 08485 MCV 91 .3 fL 08/14/2019 [facility] [address] CBC (H/H, RBC, INDICES, WBC, PLT) 94043 MCH 31 .2 pg 08/14/2019 [facility] [address] CBC (H/H, RBC, INDICES, WBC, PLT) 54785 MCHC 34 .2 g/dL 08/14/[address] [address] CBC (H/H, RBC, INDICES, WBC, PLT) 39481 RDW 12 .7 % 08/14/2019 [facility] [address] CBC (H/H, RBC, INDICES, WBC, PLT) 27015 PLATELET COUNT 214 Thousand/uL 08/14/2019 [facility] [address] CBC (H/H, RBC, INDICES, WBC, PLT) 26465 MPV 11 .5 fL 08/14/2019 [facility] [address] COMPREHENSIVE METABOLIC PANEL 65403 Glucose 113 mg /dL 08/14/2019 [facility] [address] [address] COMPREHENSIVE METABOLIC PANEL 01005 UREA NITROGEN (BUN) 16 mg/dL 08/14/2019 [facility] [address] [address] COMPREHENSIVE METABOLIC PANEL 32488 CREATININE 0.86 m g/dL 08/14/2019 [facility] [address] [address] COMPREHENSIVE METABOLIC PANEL 13929 eGFR NON-AFR. SYRIAN 92 mL/min/1.73m2 08/14/2019 [facility] [address] [address] COMPREHENSIVE METABOLIC PANEL 42165 eGFR 106 mL/min/1.73m2 08/14/2019 [facility] [address] [address] COMPREHENSIVE METABOLIC PANEL 31663 BUN/CREATININE RATIO NOT APPLICABLE (calc) 08/14/2019 [facility] [address] [place] [address] COMPREHENSIVE METABOLIC PANEL 08671 SODIUM 141 mm ol/L 08/14/2019 [facility] [address] [address] COMPREHENSIVE METABOLIC PANEL 12176 POTASSIUM 4.1 mm ol/L 08/14/2019 [facility] [address] [address] COMPREHENSIVE METABOLIC PANEL 21729 CHLORIDE 102 mm ol/L 08/14/2019 [facility] [address] [address] COMPREHENSIVE METABOLIC PANEL 37872 CARBON DIOXIDE 28 mmol/L 08/14/2019 [facility] [address] [address] COMPREHENSIVE METABOLIC PANEL 62125 CALCIUM 9.7 mg /dL 08/14/2019 [facility] [address] [address] COMPREHENSIVE METABOLIC PANEL 16872 PROTEIN, TOTAL 6. 7 g/dL 08/14/2019 [facility] [address] [address] COMPREHENSIVE METABOLIC PANEL 90960 ALBUMIN 4.3 g/ dL 08/14/2019 [facility] [address] [address] COMPREHENSIVE METABOLIC PANEL 78042 GLOBULIN 2.4 g/ dL(calc) 08/14/2019 [facility] [address] COMPREHENSIVE METABOLIC PANEL 59438 ALBUMIN/GLOBULIN RATIO 1.8 (calc) 08/14/[address] [facility] [address] COMPREHENSIVE METABOLIC PANEL 05702 BILIRUBIN, TOTAL 1.0 mg/dL 08/14/[address] [address] COMPREHENSIVE METABOLIC PANEL 80920 ALKALINE PHOSPHATASE 56 U/L 08/14/[address] [facility] [address] COMPREHENSIVE METABOLIC PANEL 09838 AST 18 U/L 08/14/[address] [facility] [employer] [address] COMPREHENSIVE METABOLIC PANEL 34842 ALT 28 U/L 08/14/[address] [facility] [employer] [facility] [address] MAGNESIUM 54629 MAGNESIUM 2.0 mg/dL 06/06/2019 [facility] [address] COMPREHENSIVE METABOLIC PANEL 74346 Glucose 106 mg /dL 06/06/[address] [facility] [employer] [facility] [address] COMPREHENSIVE METABOLIC PANEL 04692 UREA NITROGEN (BUN) 22 mg/dL 06/06/[address] [facility] [address] COMPREHENSIVE METABOLIC PANEL 15916 CREATININE 1.29 m g/dL 06/06/[address] [facility] [address] COMPREHENSIVE METABOLIC PANEL 46819 eGFR NON-AFR. SYRIAN 58 mL/min/1.73m2 06/06/2019 [facility] [address] COMPREHENSIVE METABOLIC PANEL 21290 eGFR 67 mL/min/1.73m2 06/06/2019 [facility] [address] COMPREHENSIVE METABOLIC PANEL 69654 BUN/CREATININE RATIO 17 (calc) 06/06/2019 [facility] [address] COMPREHENSIVE METABOLIC PANEL 97716 SODIUM 138 mm ol/L 06/06/2019 [facility] [address] COMPREHENSIVE METABOLIC PANEL 81435 POTASSIUM 4.2 mm ol/L 06/06/2019 [facility] [address] COMPREHENSIVE METABOLIC PANEL 60132 CHLORIDE 101 mm ol/L 06/06/2019 [facility] [address] COMPREHENSIVE METABOLIC PANEL 97740 CARBON DIOXIDE 29 mmol/L 06/06/2019 [facility] [address] [address] COMPREHENSIVE METABOLIC PANEL 86676 CALCIUM 9.6 mg /dL 06/06/[address] [facility] [address] COMPREHENSIVE METABOLIC PANEL 61068 PROTEIN, TOTAL 6. 9 g/dL 06/06/2019 [facility] [address] COMPREHENSIVE METABOLIC PANEL 69847 ALBUMIN 4.4 g/ dL 06/06/[address] [facility] [address] COMPREHENSIVE METABOLIC PANEL 79638 GLOBULIN 2.5 g/ dL(calc) 06/06/[address] [facility] [address] COMPREHENSIVE METABOLIC PANEL 23619 ALBUMIN/GLOBULIN RATIO 1.8 (calc) 06/06/[address] [facility] [address] COMPREHENSIVE METABOLIC PANEL 55585 BILIRUBIN, TOTAL 0.7 mg/dL 06/06/[address] [facility] [address] COMPREHENSIVE METABOLIC PANEL 03975 ALKALINE PHOSPHATASE 45 U/L 06/06/[address] [facility] [address] COMPREHENSIVE METABOLIC PANEL 86392 AST 21 U/L 06/06/2019 [facility] [address] COMPREHENSIVE METABOLIC PANEL 39500 ALT 34 U/L 06/06/[address] [facility] [address] CULTURE, URINE, ROUTINE 395 CULTURE, URINE, ROUTINE SEE NOTE 04/23/2019 [facility]ostics[facility] Becerra [address] [place] [address] CULTURE, URINE, ROUTINE 395 CULTURE SEE NOTE 0 04/23/2019 [facility] [address] [address] EXTRA 1014 EXTRA TUBE RECEIVED 04/22 [facility] [address] [address] EXTRA 1014 SPECIMEN TYPE RECEIVED: LAV 0 04/22/2019 [facility]am [address] [address] COMPREHENSIVE METABOLIC PANEL 73241 Glucose 94 mg/ dL 04/22/[address] [facility] [address] COMPREHENSIVE METABOLIC PANEL 35950 UREA NITROGEN (BUN) 20 mg/dL 04/22/2019 [facility]osticsChiragStallings [address] [address] COMPREHENSIVE METABOLIC PANEL 23747 CREATININE 1.30 m g/dL 04/22/2019 [facility] [address] [address] COMPREHENSIVE METABOLIC PANEL 69328 eGFR NON-AFR. SYRIAN 58 mL/min/1.73m2 04/22/2019 [facility] [address] [address] COMPREHENSIVE METABOLIC PANEL 74898 eGFR 67 mL/min/1.73m2 04/22/2019 [facility] [address] [address] COMPREHENSIVE METABOLIC PANEL 35297 BUN/CREATININE RATIO 15 (calc) 04/22/2019 [facility] [address] [address] COMPREHENSIVE METABOLIC PANEL 32111 SODIUM 139 mm ol/L 04/22/2019 [facility] [address] [address] COMPREHENSIVE METABOLIC PANEL 99637 POTASSIUM 4.2 mm ol/L 04/22/2019 [facility] [address] [address] COMPREHENSIVE METABOLIC PANEL 61418 CHLORIDE 104 mm ol/L 04/22/2019 [facility]Ch[facility] [address] [address] COMPREHENSIVE METABOLIC PANEL 68970 CARBON DIOXIDE 27 mmol/L 04/22/[address] [facility] [address] COMPREHENSIVE METABOLIC PANEL 59472 CALCIUM 9.9 mg /dL 04/22/[address] [address] COMPREHENSIVE METABOLIC PANEL 96357 PROTEIN, TOTAL 7. 1 g/dL 04/22/[address] [address] COMPREHENSIVE METABOLIC PANEL 50977 ALBUMIN 4.6 g/ dL 04/22/[address] [address] COMPREHENSIVE METABOLIC PANEL 57386 GLOBULIN 2.5 g/ dL(calc) 04/22/2019 [facility] [address] COMPREHENSIVE METABOLIC PANEL 87886 ALBUMIN/GLOBULIN RATIO 1.8 (calc) 04/22/[address] [address] COMPREHENSIVE METABOLIC PANEL 27315 BILIRUBIN, TOTAL 0.4 mg/dL 04/22/[address] [address] COMPREHENSIVE METABOLIC PANEL 29923 ALKALINE PHOSPHATASE 53 U/L 04/22/[address] [address] COMPREHENSIVE METABOLIC PANEL 99052 AST 21 U/L 04/22/[address] [address] COMPREHENSIVE METABOLIC PANEL 31427 ALT 34 U/L 04/22/[address] [address] CULTURE, URINE, ROUTINE 395 CULTURE, URINE, ROUTINE SEE NOTE 01/31/[address] [address] Procedures Procedure Codes Date CULTURE, THROAT CPT-4: 12691 12/30/2019 CULTURE, AEROBIC BACTERIA CPT-4: 07508 10/27/2019 URINALYSIS NONAUTO W/O SCOPE CPT-4: 94990 10/02/2019 URINE CULTURE/ COLONY COUNT CPT-4: 85165 10/02/2019 ROUTINE VENIPUNCTURE CPT-4: 24233 08/13/2019 URINALYSIS NONAUTO W/O SCOPE CPT-4: 51123 08/13/2019 CULTURE, URINE, ROUTINE CPT-4: 395 08/13/2019 COMPREHENSIVE METABOLIC PANEL CPT-4: 15063 08/13/2019 CBC (H/H, RBC, INDICES, WBC, PLT) CPT-4: 20582 2018 COMPREHENSIVE METABOLIC PANEL CPT-4: 45390 06/05/2019 MAGNESIUM CPT-4: 44944 06/05/2019 DEXAMETHASONE SODIUM PHOS CPT-4: J1100 05/21/2019 THER/PROPH/DIAG INJ SC/IM CPT-4: 21078 05/21/2019 TRIAMCINOLONE ACET INJ NOS CPT-4: J3301 05/21/2019 ROUTINE VENIPUNCTURE CPT-4: 20789 04/21/2019 COMPREHENSIVE METABOLIC PANEL CPT-4: 06098 04/21/2019 EXTRA CPT-4: 1014 04/21/2019 CULTURE, URINE, ROUTINE CPT-4: 395 04/21/2019 URINALYSIS NONAUTO W/O SCOPE CPT-4: 57938 04/21/2019 URINALYSIS NONAUTO W/O SCOPE CPT-4: 18920 01/29/2019 CULTURE, URINE, ROUTINE CPT-4: 395 01/29/2019 DRAIN/INJECT JOINT/BURSA CPT-4: 41848 02/19/2018 TRIAMCINOLONE ACET INJ NOS CPT-4: J3301 02/19/2018 DEXAMETHASONE SODIUM PHOS CPT-4: J1100 02/19/2018 THER/PROPH/DIAG INJ SC/IM CPT-4: 16712 02/12/2018 TRIAMCINOLONE ACET INJ NOS CPT-4: J3301 02/12/2018 DEXAMETHASONE SODIUM PHOS CPT-4: J1100 02/12/2018 CEFTRIAXONE SODIUM INJECTION CPT-4: J0696 12/03/2017 THER/PROPH/DIAG INJ SC/IM CPT-4: 46659 12/03/2017 THER/PROPH/DIAG INJ SC/IM CPT-4: 42147 12/03/2017 METHYLPREDNISOLONE INJECTION CPT-4: J2930 12/03/2017 URINALYSIS NONAUTO W/O SCOPE CPT-4: 11573 08/13/2017 STREP A ASSAY W/OPTIC CPT-4: 15908 02/13/2017 DESTRUCT PREMALG LESION (Cryosurgery) CPT-4: 44020 Vital Signs Date Vital 12/30/2019 Temperature: 36.9 [...] 1: 128/78 Code: 8480-6 BMI: 36.0 Code: 41353-1 Heart Rate 1: 68 bpm Height: 5'7" [...] 1: 138/86 Code: 8480-6 BMI: 35.6 Code: 86121-2 Heart Rate 1: 68 bpm Height: 5'7" SpO2: 95% Temperature: 36.6 (C) / 97.8 (F) Weight: 227 lbs 12/03/2017 Blood Pressure 1: 134/84 Code: 8480-6 BMI: 34.3 Code: 46628-1 Heart Rate 1: 68 bpm Height: 5'7" Respiratory Rate: 20 bpm SpO2: 96% Tempera ture: 35.9 (C) / 96.6 (F) Weight: 219 lbs 09/11/2017 Blood Pressure 1: 140/86 Code: 8480-6 BMI: 34.9 Code: 02833-5 Heart Rate 1: 84 bpm Height: 5'7" Respiratory Rate: 20 bpm SpO2: 95% Tempera ture: 36.7 (C) / 98.1 (F) Weight: 223 lbs 08/13/2017 Blood Pressure 1: 142/94 Code: 8480-6 BMI: 34.5 Code: 47109-2 Heart Rate 1: 76 bpm Height: 5'7" Respiratory Rate: 20 bpm SpO2: 96% Tempera ture: 37.1 (C) / 98.8 (F) Weight: 220 lbs 11/17/2016 Blood Pressure 1: 118/78 Code: 8480-6 He art Rate 1: 64 bpm 07/19/2016 Blood Pressure 1: 112/58 Code: 8480-6 BMI: 31.6 Code: 78718-1 Heart Rate 1: 88 bpm Height: 5'7" Respiratory Rate: 22 bpm SpO2: 98% Tempera ture: 36.3 (C) / 97.4 (F) Weight: 202 lbs 06/09/2016 Blood Pressure 1: 138/84 Code: 8480-6 BMI: 32.1 Code: 47405-9 Heart Rate 1: 58 bpm Height: 5'7" Respiratory Rate: 20 bpm SpO2: 97% Tempera ture: 36.6 (C) / 97.8 (F) Weight: 205 lbs 11/08/2015 Blood Pressure 1: 142/80 Code: 8480-6 BMI: 32.4 Code: 77579-1 Heart Rate 1: 76 bpm Height: 5'7" Respiratory Rate: 20 bpm Temperature: 36 .6 (C) / 97.9 (F) Weight: 207 lbs 06/14/2015 Blood Pressure 1: 126/80 Code: 8480-6 Heart Rate 1: 84 bpm Respiratory Rate: 20 bpm Temperature: 36.8 (C) / 98.2 (F) Weight: 206 lbs 05/18/2015 Blood Pressure 1: 124/80 Code: 8480-6 BMI: 32.3 Code: 57194-7 Heart Rate 1: 68 bpm Height: 5'7" Respiratory Rate: 20 bpm Temperature: 36 .4 (C) / 97.6 (F) Weight: 206 lbs 02/22/2015 Blood Pressure 1: 126/78 Code: 8480-6 BMI: 32.1 Code: 05743-2 Heart Rate 1: 76 bpm Height: 5'7" Respiratory Rate: 20 bpm Temperature: 36 .6 (C) / 97.9 (F) Weight: 205 lbs 12/02/2014 Blood Pressure 1: 124/80 Code: 8480-6 BMI: 32.7 Code: 44543-5 Heart Rate 1: 70 bpm Height: 5'7" Respiratory Rate: 18 bpm Temperature: 36 .6 (C) / 97.9 (F) Weight: 209 lbs 08/18/2014 Blood Pressure 1: 132/94 Code: 8480-6 BMI: 34.5 Code: 68414-4 Heart Rate 1: 84 bpm Height: 5'6" Respiratory Rate: 20 bpm Temperature: 36 .6 (C) / 97.9 (F) Weight: 217 lbs 07/08/2014 Blood Pressure 1: 142/88 Code: 8480-6 BMI: 34.3 Code: 55562-8 Heart Rate 1: 72 bpm Height: 5'6" [...] Visit Encounters Encounter Performer Location Codes Date ([id number]) NURSE/OUTPATIENT VISIT EST Diagnosis: Sore throat[ICD10: J02.9] Sapna HASSAN [facility] CPT-4: 37870 12/30/2019 ([id number]) OFFICE/OUTPATIENT VISIT EST Diagnosis: Allergic rhinitis[ICD10: J30.9] Diagnosis: Postnasal drip[ICD10: R09.82] [facility] CPT-[facility]: 69046 12/19/2019 ([id number]) NO CHARGE Diagnosis: Infected sebaceous cyst[ICD10: L72.3] Sapna REDMOND SAmarjit PROCTORER [facility] CPT-4: 61267 11/03/2019 ([id number]) OFFICE/OUTPATIENT VISIT EST Diagnosis: Disorder of the skin and subcutaneous tissue, unspecified[ICD10: L98.9] Diagnosis: Infected sebaceous cyst[ICD10: L72.3] Diagnosis: Local infection of the skin and subcutaneous tissue, unspecified[ICD10: L08.9] Lashell CORRAL SAmarjit QUINTONNDER [facility] CPT-4 : 23255 10/27/2019 ([id number]) OFFICE/OUTPATIENT VISIT EST Diagnosis: Suprapubic abdominal pain[ICD10: R10.2] Diagnosis: Aortic regurgitation[ICD10: I35.1] Sapna GAUTAM SAmarjit COATSNDER [facility] CPT-4: 45108 10/02/2019 ([id number]) OFFICE/OUTPATIENT VISIT EST Diagnosis: Chest pain[ICD10: R07.9] Lashell BILLINGS [facility] CPT-4: 84263 08/25/2019 ([id number]) OFFICE/OUTPATIENT VISIT EST Diagnosis: Thoracic back pain[ICD10: M54.6] Diagnosis: Disorder of kidney and ureter, unspecified[ICD10: N28.9] Diagnosis: Personal history of nicotine dependence[ICD10: Z87.891] 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 QUINTONND EDVIN [employer] [facility] CPT-4: 43856 07/03/2019 ([id number]) OFFICE/OUTPATIENT VISIT EST Diagnosis: Cramp and spasm[ICD10: R25.2] Diagnosis: Disorder of kidney and ureter, unspecified[ICD10: N28.9] Lashell BRUNSONLINE JefryAmarjit HITESHER [employer] CPT-4: 57936 06/05/2019 ([id number]) OFFICE/OUTPATIENT VISIT EST Diagnosis: Other pruritus[ICD10: L29.8] Diagnosis: Pain in right knee[ICD10: M25.561] Lashell SHAHTIFFANIE GAUTAM S. QUINTONNDEDVIN [employer] CPT-4: 77276 05/21/2019 ([id number]) NURSE/OUTPATIENT VISIT EST Diagnosis: Edema, unspecified[ICD10: R60.9] Sapna Quintonclaudio CORRAL S. HITESHER [employer] CPT-4: 80045 04/21/2019 ([id number]) OFFICE/OUTPATIENT VISIT EST Diagnosis: Diverticulitis of large intestine without perforation or abscess without bleeding[ICD10: K57.32] Diagnosis: Snoring[ICD10: R06.83] Diagnosis: Other constipation[ICD10: K59.09] Lashell SHAHDESIREE Chandler S. QUINTONNDER [employer] CPT-4: 70583 02/24/2019 ([id number]) OFFICE/OUTPATIENT VISIT EST Diagnosis: Diverticulitis of large intestine without perforation or abscess with bleeding[ICD10: K57.33] Nancy CORRAL Jefry. HITESHER [employer] [facility] CPT-4: 69104 02/04/2019 ([id number]) OFFICE/OUTPATIENT VISIT EST Diagnosis: Left lower quadrant pain[ICD10: R10.32] Nancy LIVE DO [facility] CPT-4: 42775 01/29/2019 OFFICE/OUTPATIENT VISIT EST Diagnosis: Dermatitis, unspecified[ICD10: L30.9] Diagnosis: Gastro-esophageal reflux disease without esophagitis[ICD10: K21.9] Diagnosis: Palpitations[ICD10: R00.2] Sapna AU [employer] CPT-4: 55378 12/19/2018 ([id number]) OFFICE/OUTPATIENT VISIT EST Diagnosis: Gastro-esophageal reflux disease without esophagitis[ICD10: K21.9] Diagnosis: Dysphagia, pharyngoesophageal phase[ICD10: R13.14] Sapna LIVE DO [facility] CPT-4: 37225 11/11/2018 ([id number]) PREV VISIT EST AGE 40-64 Diagnosis: Encounter [...] disorders of digestive system[ICD10: K91.89] Lashell LIVE [employer] CPT-4: 99 396 10/09/2018 ([id number]) OFFICE/OUTPATIENT VISIT EST Diagnosis: Pain in right knee[ICD10: M25.561] Diagnosis: Pain in right hip[ICD10: M25.551] Lashell LIVE DO [facility] CPT-4: 00744 02/12/2018 OFFICE/OUTPATIENT VISIT EST Diagnosis: Essential (primary) hypertension[ICD10: I10] Diagnosis: Other chest pain[ICD10: R07.89] Lashell LIVE DO [facility] CPT-4: 45220 12/03/2017 ([id number]) OFFICE/OUTPATIENT VISIT EST Diagnosis: Essential (primary) hypertension[ICD10: I10] Sapna LIVE DO [facility] CPT-4: 15863 09/11/2017 ([id number]) PREV VISIT EST AGE 40-64 Diagnosis: Encounter for general adult medical examination without abnormal findings[ICD10: Z00.00] Diagnosis: Essential (primary) hypertension[ICD10: I10] Diagnosis: Left lower quadrant pain[ICD10: R10.32] Diagnosis: Left upper quadrant pain[ICD10: R10.12] Diagnosis: Other intervertebral disc degeneration, 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] Sapna LIVE DO [facility] CPT-4: 89866 08/13/2017 ([id number]) OFFICE/OUTPATIENT VISIT EST Diagnosis: Acute pharyngitis, unspecified[ICD10: J02.9] Sapna LIVE DO [facility] CPT-4: 62441 02/13/2017 ([id number]) PREV VISIT EST AGE 40-64 Diagnosis: Encounter for general adult medical examination without abnormal findings[ICD10: Z00.00] Diagnosis: Essential (primary) hypertension[ICD10: I10] 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] Sapna LIVE DO [facility] CPT-4: 86955 07/19/2016 OFFICE/OUTPATIENT VISIT EST Diagnosis: Pain in thoracic spine[ICD10: M54.6] Diagnosis: Disorder of the skin and subcutaneous tissue, unspecified[ICD10: L98.9] Sobia Monreal SAPNA LIVE DO [facility] CPT-4: 00037 06/09/2016 OFFICE/OUTPATIENT VISIT EST Diagnosis: Retention of urine, unspecified[ICD10: R33.9] Diagnosis: Urinary tract infection, site not specified[ICD10: N39.0] Chelsie Teixeira SAPNA LIVE [employer] CPT-4: 60099 11/08/2015 ([id number]) OFFICE/OUTPATIENT VISIT EST Diagnosis: DERMATITIS NOS[ICD9: 692.9] Diagnosis: SEBACEOUS CYST[ICD9: 706.2] Sapna BOSCH DO [facility] CPT-4: 86454 06/14/2015 OFFICE/OUTPATIENT VISIT EST Diagnosis: LOCAL SKIN INFECTION[ICD9: 686.9] Diagnosis: FOLLICULITIS[ICD9: 704.8] Chelsie NoriegaAlysiaoscar HASSAN [facility] CPT-4: 41217 05/18/2015 ([id number]) OFFICE/OUTPATIENT VISIT EST Diagnosis: Constipation[ICD9: 564.00] Sapna AU [facility] CPT-4: 92009 02/22/2015 ([id number]) OFFICE/OUTPATIENT VISIT EST Diagnosis: Thoracic back pain[ICD9: 724.1] Diagnosis: Thoracic degenerative disc disease[ICD9: 722.51] Diagnosis: Scoliosis[ICD9: 737.30] Sapna PARDO [facility] CPT-4: 42391 12/02/2014 ([id number]) OFFICE/OUTPATIENT VISIT EST Diagnosis: Thoracic back pain[ICD9: 724.1] Diagnosis: ACTINIC KERATOSIS[ICD9: 702.0] Sapna LIVE [facility] CPT-4: 62162 08/18/2014 OFFICE/OUTPATIENT VISIT NEW Diagnosis: HYPERTENSION[ICD9: 401.9] Diagnosis: Thoracic back pain[ICD9: 724.1] Diagnosis: GERD[ICD9: 530.81] Diagnosis: Adrenal tumor[ICD9: 239.7] Sapna AU [facility] CPT-4: 37200 07/08/2014 ([id number]) OFFICE/OUTPATIENT VISIT NEW Diagnosis: HYPERTENSION[ICD9: 401.9] Diagnosis: GERD[ICD9: 530.81] Sapna PROCTOR [facility] CPT-4: 54698 07/08/2014 Plan of Care Planned Activity Notes Codes Status Date Visit Diagnosis Plan: Allergic rhinitis Discussion: Cl aritin 10mg po BID Call Sunday with how symptoms are doing Will also add famotodine at bedtime to cover for reflux etiology ICD-9 : 477.9 ICD-10 : J30.9 12/19/2019 Appointment: Sapna Live WPtel: [address] [place], [place] [phone] TELE[facility]ICINE 12/19/2019 Patient Education: famotidine- [employer] Coupon [phone] https://www.xG Technology/sampleExtra Life/resources/getResource/61/[email or web address]-y3 Completed 12/19/2019 Visit Diagnosis Plan: Infected sebaceous cyst Discussi on: Sent out 1 week of doxycycline ICD-9 : 706.2 ICD-10 : L72.3 11/03/2019 Appointment: Sapna Live WPtel: [phone] WOUND CARE 11/03/2019 Visit Diagnosis Plan: [...] ICD-10 : L08.9 10/27/2019 Appointment: Lashell Joe [address] [place], [place] [id number] ACUTE ILLNESS 10/27/2019 Patient Education: tramadol- [employer] Coupon [id number] https://www.Episona.eZWay/samplemd/resources/getResource/61/98e44p7p-[email or web address]-[email or web address] Completed 10/27/2019 Visit Plan: Update Low Dose [...] Appointment: Sapna Live WPtel: [phone] Kevin Rai [id number] FOLLOW UP 10/02/2019 Care Plan: Referral Order SNOMED-CT : 30 [id number] Pending 10/02/2019 Visit Diagnosis Plan: Chest pain Discussion: will star t with cxray and rib xray. discussed that could be lung, rib, muscle but will start with cxray and patient may need echo. he verbalized understanding. ICD-9 : 786.50 ICD-10 : R07.9 08/25/2019 Appointment: Lashell Joe [facility] [id number] ACUTE ILLNESS 08/25/2019 Visit Diagnosis Plan: Thoracic back pain Discussion: c hronic pain. will refer to dr. stallings [facility] for evaluation and treatment ICD-9 : 724.1 [...] ct of lungs to be done at [facility]. ICD-9 : V15.82 ICD-10 : Z87.891 08/13/2019 [...] ICD-10 : E27.8 08/13/2019 Appointment: Lashell Joe [address] [place], [place] [id number] US FOLLOW UP 08/13/2019 Visit Diagnosis Plan: Sigmoid diverticulitis Discussio n: Bactrim/Flagyl [place] diet To ER this weekend if worsening ICD-9 : 562.11 ICD-10 : K57.32 07/03/2019 Visit Diagnosis Plan: Jock itch Discussion: Diflucan a nd topical nystatin ICD-9 : 110.3 ICD-10 : B35.6 07/03/2019 Visit Diagnosis Plan: Renal insufficiency Discussion: Labs discussed Continue off NSAIDS Hydrate Recheck Chemistry 3mos ICD-9 : 593.9 ICD-10 : N28.9 07/03/2019 Appointment: Sapna Live WPtel: [phone] [facility] FOLLOW UP 07/03/2019 Patient Education: fluconazole- [employer] Coupon [id number] Completed 07/03/2019 Patient Education: nystatin- [employer] Coupon [id number] Completed 07/03/2019 Visit Diagnosis Plan: Disorder of [...] ICD-10 : R25.2 06/05/2019 Appointment: Lashell Joe [address] [place], [place] [phone] NO SHOW - FORGIVEN 06/05/2019 Appointment: Lashell Joe [address] [place], [place] [phone] ACUTE ILLNESS 06/05/2019 Visit Diagnosis Plan: Pain [...] L29.8 05/21/2019 Appointment: David Joeysrancho Martinez [address] ACUTE ILLNESS 05/21/2019 Patient Education: hydroxyzine HCl- [employer] Coupon [id number] https://www.Episona.eZWay/samplemd/resources/getResource/61/[email or web address]-m31v-69cm-05 Completed 05/21/2019 Appointment: Sapna Live WPtel: [address] [place] [address] 05/19/19 1645---see note put in chart today (km) CANCELED 05/19/2019 Appointment: Sapna Live WPtel: [address] [place] [address] US CANCELED 05/05/2019 Appointment: Sapna Live WPtel: [address] [place] [address] UA 04/21/2019 Visit Diagnosis Plan: Diverticulitis of [...] : K59.09 02/24/2019 Appointment: Lashell Joe [address] Hospital Follow Up 02/24/2019 Visit Diagnosis Plan: Diverticulitis of large intestine without perforation or abscess with bleeding Discussion: Continue flagyl and cipro. A dvance diet to bland. BRAT diet advised. Avoid nuts, seeds, popcorn, roughage. RTC if abdominal pain worsens or does not improve. ICD-9 : 562.13 ICD-10 : K57.33 02/04/2019 Appointment: Nancy Mendiola [facility] FOLLOW UP 02/04/2019 Visit Diagnosis Plan: Left [...] ICD-10 : R10.32 01/29/2019 Appointment: Nancy Mendiola [facility] ACUTE ILLNESS 01/29/2019 Care Plan: CT PELVIS [...] : K21.9 12/19/2018 Appointment: Sapna Live WPtel: [phone] [facility] ACUTE ILLNESS 12/19/2018 Visit Diagnosis Plan: Gastro-esophageal reflux disease without esophagitis Discussion: Continue protonix at 40mg daily Hold mobic No NSAIDS Hold all MVs If persists then will need EGD ICD-9 : 530.81 ICD-10 : K21.9 11/11/2018 Appointment: Sapna Live WPtel: [phone] [facility] [facility] 11/11/2018 Visit Diagnosis Plan: Encounter for [facility] adult medical examination without abnormal findings Discussion: [...] ICD-10 : K91.89 10/09/2018 Appointment: Lashell Joe [address] [place] [address] Annual Well Visit 10/09/2018 Patient Education: gabapentin- [employer] Coupon [id number] Completed 10/09/2018 Patient Education: Kegel Exercises Comple catalina 10/09/2018 Patient Education: High Blood Pressure Co mpleted 10/09/2018 Visit Diagnosis Plan: Pain in right knee Discussion: c orticosteroid injection administered as described above. patient tolerated well. instructed to rtc in 3- 4 months if needed for additional injection. ICD-9 : 719.46 ICD-10 : M25.561 02/19/2018 Appointment: Lashell Joe [address] [place], [place] [id number] OFFICE SURGERY 02/19/2018 Patient Education: Patient Medication [...] ICD-10 : M25.561 02/12/2018 Appointment: Lashell Joe [address] [place] [address] ACUTE ILLNESS 02/12/2018 Patient Education: Patient Medication Summary Completed 02/12/2018 Care Plan: X-RAY EXAM OF KNEE 1 [place] 2 [place] : [address]0 Pending 02/12/2018 Visit Diagnosis Plan: Essential (primary) [...] ICD-10 : R07.89 12/03/2017 Appointment: Lashell Joe [address] [place] [address] ESTABLISHED PATIENT 12/03/2017 Patient Education: Patient Medication Summary Completed 12/03/2017 Visit Diagnosis Plan: Essential (primary) hypertension Discussion: Increase quinapril to 40mg daily BP check in 1month ICD-9 : 401.9 ICD-10 : I10 09/11/2017 Appointment: Sapna Live WPtel: [address] [place] [address] FOLLOW UP 09/11/2017 Patient Education: Patient Medication Summary Completed 09/11/2017 Appointment: Sapna Live WPtel: [address] [place] [address] RESCHEDULED 08/22/2017 Visit Diagnosis Plan: Essential (primary) hypertension Discussion: Increase quinapril to 20mg daily Follow Up: 1 months ICD-9 : 401.9 ICD-10 : I10 08/13/2017 Visit Diagnosis Plan: Encounter for [facility] adult medical examination without abnormal findings Discussion: Update fasting lab ICD-9 : V70.9 ICD-10 : Z00.00 08/13/2017 Visit Diagnosis Plan: Left lower quadrant pain Discuss ion: Update colonoscopy ICD-9 : 789.04 ICD-10 : R10.32 08/13/2017 Appointment: Sapna Live WPtel: [address] [place] [address] Annual Well Visit 08/13/2017 Patient Education: Patient Medication Summary Completed 08/13/2017 Appointment: Sapna Live WPtel: [phone] [facility]6[address] THROAT SWAB 02/13/2017 Patient Education: Patient Medication Summary Completed 02/13/2017 Appointment: Sapna Live WPtel: [phone] [facility] BP CHECK 11/17/2016 Patient Education: Patient Medication Summary Completed 11/17/2016 Visit Plan: Due for colonoscopy in 2018 Had shingles shot and flu shot Change quinapril hct to plain quinapril and see if muscles twitches improve Fwup with Dr. Braga Lab discussed Discussed diet/exercise at length Check CT abdomen Recheck 3mos 07/19/2016 Appointment: Sapna Live WPtel: [phone] [place] [id number] 07/18 confirmed`sl PHYSICAL 07/19/2016 Patient Education: Patient [...] Lipids fasting at earliest convenience 06/09/2016 Appointment: Soiba Monreal WPtel: [phone] [id number] ACUTE ILLNESS 06/09/2016 Patient Education: Patient Medication Summary Completed 06/09/2016 Referral: Demario Braga WPtel: [phone] [id number] [place] Referral Initiated 11/12/2015 Visit Plan: Continue indwelling catheter until follow-up with Dr. Omi Continue Bactrim and Cipro Pyridium TID for Bladder spasms 11/08/2015 Appointment: Chelsie Teixeira WPtel: [address] [place] [address] ER Follow UP 11/08/2015 Patient Education: Patient Medication Summary Completed 11/08/2015 Referral: Abdiel Tucker WPtel: [phone] Referral Initiated 06/21/2015 Visit Plan: Prednisone 20mg daily for 1w [place] See surgery of cyst removal 06/14/2015 Appointment: Sapna Live WPtel: [address] [place], [place] [id number] 06/11 cn 06/14 [facility] FOLLOW UP 2014 Patient Education: Patient Medication Summary Completed 06/14/2015 Visit Plan: Warm moist compresses to Lef t shoulder lesion and apply topical Mupirocin twice daily Complete Cephalexin x 7 days as directed Resume Culturelle daily 05/18/2015 Appointment: Chelsie Teixeira WPtel: [address] [place] [address] ACUTE ILLNESS 05/18/2015 Patient Education: Patient Medication Summary Completed 05/18/2015 Visit Plan: Check fasting lab Use pain m eds prn with miralax on the day that takes pain meds 02/22/2015 Appointment: Sapna Live WPtel: [address] [place], [place] [phone] 02/19 [facility] 02/19 appt confirmed-lb ACUTE ILLNESS 5 Patient Education: Patient Medication Summary Completed 02/22/2015 Visit Plan: Increase neurontin to 300mg q HS Continue flexeril and tramadol Call in 1mo on how higher dose of gabapentin 12/02/2014 Appointment: Sapna Live WPtel: [address] [place], [place] [id number] FOLLOW UP 12/02/2014 Patient Education: Patient Medication Summary Completed 12/02/2014 Referral: Eric Angelo WPtel: [address] [facility] [id number] [place] Referral Appointment Confirmed 09/15/2014 Visit Plan: Proceed with pain doctor for possible injection vs nerve block Trial of lidoderm patch Cryotherapy to lesions as above 08/18/2014 Appointment: Sapna Live WPtel: [phone] [facility] ACUTE ILLNESS 08/18/2014 Patient Education: Patient Medication Summary Completed 08/18/2014 Patient Education: Patient Medication Summary Completed 08/13/2014 Visit Plan: Continue current meds Obtain most recent lab results Check thoracic spine x-rays Needs updated CT scan of adrenal tumor 07/08/2014 Appointment: Sapna Live WPtel: [phone] [facility] 07/07 NEW PATIENT 07/08/2014 Patient Education: Patient Medication Summary Completed 07/08/2014 Patient Education: Patient Medication Summary Completed 07/08/2014 Referral: Suhail Cardenas WPtel: [phone] [id number] [place] Referral Completed Referral: Toby Bettencourt WPtel: 1 [facility] A [id number] [place] Referral Completed Referral: Rosario Monahan WPtel: [phone] [facility] C [place] Referral Appointment Requested Instructions Comment [...]
--- OUTSIDE RECORDS SUMMARY | 2020-02-05 07:47 | XMS REPORT | CCD ---
Author Author Jai Live D.O. Organization [facility] Address [address] [place] [address] Phone Care Team Providers Care Mini Lab Operator Name Role Phone Sapna Live D.O., PP Unavailable CCM Unavailable Summary Purpose Interface Exchange Insurance Providers Payer name Policy type / Coverage type Covered democrat ID Effective Begin Date Effective End Date GPA Commercial Insurance [id number] 2019 Unknown Family history Mother Diagnosis Age At Onset Cancer Unknown Father Diagnosis Age At Onset Congestive heart failure Unknown Coronary Artery Disease(CAD) Unknown Social History Social History Element Codes Description Effective Dates Tobacco history SNOMED CT: 3332939 Former smoker 10/09/2018 Marital status Unknown 07/08/2014 Number of children Unknown 1 07/08/2014 Employment Unknown Currently employed [employer] 07/08/[address]: 183230248 Never drinks alcohol 2013 Has the patient [...] mg tablet,extended release 24 hr RxNor m: 711777 1 Tablet(s) Oral two times a day 12/22/2019 12/29/2019 Inactive clarithromycin ER 500 mg tablet,extended release 24 hr RxNor m: 496129 1 Tablet(s) Oral two times a day [...] Date Active famotidine 20 mg tablet RxNorm: 178006 1 Tablet(s) Oral QPM for postnasal drip/stomach 12/19/2019 01/18/2020 Active tramadol 50 mg tablet RxNorm: 879069 1 Tablet(s) Oral t hree times a day as needed for pain along with two tylenol 12/03/2019 No Stop Date Active doxycycline hyclate 100 mg capsule RxNorm: 5538575 1 Cap lee(s) Oral two times a day 11/03/2019 11/02/2019 Inactive doxycycline hyclate 100 mg capsule RxNorm: 6322916 1 Cap lee(s) Oral two times a day 11/03/2019 11/10/2019 Inactive tramadol 50 mg tablet RxNorm: 994671 1 Tablet(s) Oral t hree times a day as needed for pain along with two tylenol 10/27/2019 10/26/2019 Inactive tramadol 50 mg tablet RxNorm: 622596 1 Tablet(s) Oral t hree times a day as needed for pain along with two tylenol 10/27/2019 10/27/2019 Inactive cyclobenzaprine 10 mg tablet RxNorm: 608973 1 Tablet(s) Oral th ree times a day 10/27/2019 12/18/2019 Inactive Bactrim DS 800 mg-160 mg tablet RxNorm: 830918 1 Tablet(s) Oral two times a day 10/27/2019 11/03/2019 Inactive Bactrim DS 800 mg-160 mg tablet RxNorm: 192237 1 Tablet(s) Oral two times a day 10/27/2019 10/26/2019 Inactive tramadol 50 mg tablet RxNorm: 169855 1 Tablet(s) Oral t hree times a day as needed for pain along with two tylenol 09/29/2019 10/26/2019 Inactive quinapril 40 mg tablet RxNorm: 590157 1 Tablet(s) Oral QD 09/18/2019 03/15/2020 Active Patient requests 90 days supply tramadol 50 mg tablet RxNorm: 675148 1 Tablet(s) Oral t hree times a day as needed for pain along with two tylenol 08/28/2019 08/28/2019 Inactive tramadol 50 mg tablet RxNorm: 645628 1 Tablet(s) PO TID as needed for pain along with two tylenol 08/25/2019 08/27/2019 Inactive pantoprazole 40 mg tablet,delayed release RxNorm: 694292 1 Tabl et(s) Oral QD 08/13/2019 No Stop Date Active Vitamin D3 1,000 unit capsule RxNorm: 738810 1 Capsule(s) Oral QD 1 10/13/2018 12/18/2019 Inactive tamsulosin 0.4 mg capsule RxNorm: 140094 1 Capsule(s) Oral QPM 07/2612/18/2019 Inactive Protonix 40 mg tablet,delayed release RxNorm: 273377 TA KE 1 TABLET BY MOUTH TWICE A DAY 08/04/2019 08/12/2019 Inactive Flagyl 500 mg tablet RxNorm: 274771 1 Tablet(s) Oral three time s a day 07/03/2019 07/13/2019 Inactive fluconazole 100 mg tablet RxNorm: 858011 1 Tablet(s) Oral QD 201807/10/2019 Inactive Bactrim DS 800 mg-160 mg tablet RxNorm: 699787 1 Tablet(s) Oral two times a day 07/03/2019 07/13/2019 Inactive nystatin 100,000 unit/gram topical cream RxNorm: 455326 Application Topical two times a day 07/03/2019 08/12/2019 Inactive gabapentin 600 mg tablet RxNorm: 555939 Tablet(s) TAKE 1 TABLET BY MOUTH EVERY NIGHT AT BEDTIME 06/25/2019 08/12/2019 Inactive - First Attempt Ref: [id number] quinapril 40 mg tablet RxNorm: 926325 1 Tablet(s) Oral QD 06/23/2019 09/17/2019 Inactive Patient requests 90 days supply tramadol 50 mg tablet RxNorm: 371055 1 Tablet(s) PO TID as needed for pain along with two tylenol 05/23/2019 08/24/2019 Inactive hydroxyzine HCl 25 mg tablet RxNorm: 533199 1 Tablet(s) PO TID as needed 05/21/2019 08/12/2019 Inactive Elimite 5 % topical cream RxNorm: 899986 1 Application TOP QHS apply head to toe and was off in morning 05/19/2019 07/02/2019 Inactive Protonix 40 mg tablet,delayed release RxNorm: 456776 1 Tablet(s ) PO BID 05/05/2019 08/02/2019 Inactive - First Attempt Ref: [id number] gabapentin 600 mg tablet RxNorm: 969791 Tablet(s) TAKE 1 TABLET BY MOUTH EVERY NIGHT AT BEDTIME 04/25/2019 06/24/2019 Inactive - First Attempt Ref: [id number] tramadol 50 mg tablet RxNorm: 806239 1 Tablet(s) PO TID as needed for pain along with two tylenol 04/21/2019 05/22/2019 Inactive quinapril 40 mg tablet RxNorm: 092398 1 Tablet(s) PO QD 04/01/2019 Inactive Patient requests 90 days supply fenofibrate micronized 134 mg capsule RxNorm: 695048 1 Capsule(s) PO QD Due for updated fasting labs 03/31/2019 08/12/2019 Inactive dicyclomine 10 mg capsule RxNorm: 361599 1 Capsule(s) PO TID as needed 02/24/2019 05/20/2019 Inactive Flagyl 500 mg tablet RxNorm: 500293 1 Tablet(s) PO Q8H 02/24/201908/2019 Inactive ciprofloxacin 500 mg tablet RxNorm: 155118 1 Tablet(s) PO BID 02/2403/09/2019 Inactive Flagyl 500 mg tablet RxNorm: 610239 1 Tablet(s) PO Q6H 01/30/2019 Inactive ciprofloxacin 500 mg tablet RxNorm: 676186 1 Tablet(s) PO BID 01/3001/29/2019 Inactive Flagyl 500 mg tablet RxNorm: 323669 1 Tablet(s) PO Q6H 01/30/201904/2019 Inactive ciprofloxacin 500 mg tablet RxNorm: 709905 1 Tablet(s) PO BID 01/3002/05/2019 Inactive gabapentin 600 mg tablet RxNorm: 449811 TAKE 1 TABLET B Y MOUTH EVERY NIGHT AT BEDTIME 01/27/2019 04/24/2019 Inactive - First Attempt Ref: [id number] tramadol 50 mg tablet RxNorm: 415674 1 Tablet(s) PO TID as needed for pain along with two tylenol 01/08/2019 04/20/2019 Inactive fenofibrate micronized 134 mg capsule RxNorm: 558901 1 Capsule(s) PO QD Due for updated fasting labs 01/02/2019 03/30/2019 Inactive quinapril 40 mg tablet RxNorm: 409509 1 Tablet(s) PO QD 01/01/2019 Inactive Patient requests 90 days supply Protonix 40 mg tablet,delayed release RxNorm: 530281 TA KE 1 TABLET BY MOUTH TWICE A DAY 01/01/2019 03/31/2019 Inactive - First Attempt Ref: [id number] Protonix 40 mg tablet,delayed release RxNorm: 127766 TA KE 1 TABLET BY MOUTH TWICE A DAY 12/25/2018 12/31/2018 Inactive - First Attempt Ref: [id number] gabapentin 600 mg tablet RxNorm: 181014 TAKE 1 TABLET B Y MOUTH EVERY NIGHT AT BEDTIME 12/02/2018 01/26/2019 Inactive - First Attempt Ref: [id number] Protonix 40 mg tablet,delayed release RxNorm: 223402 1 Tablet(s ) PO BID 11/11/2018 12/24/2018 Inactive Protonix 40 mg tablet,delayed release RxNorm: 788871 1 Tablet(s ) PO BID 10/09/2018 11/10/2018 Inactive gabapentin 600 mg tablet RxNorm: 406627 1 Tablet(s) PO QHS 10/09/1912/01/2018 Inactive quinapril 40 mg tablet RxNorm: 806140 1 Tablet(s) PO QD 1 TABLE T(S) PO QD 08/08/2018 08/07/2018 Inactive Patient requests 9 0 days supply quinapril 40 mg tablet RxNorm: 910683 1 Tablet(s) PO QD 08/08/2018 Inactive Patient requests 90 days supply meloxicam 15 mg tablet RxNorm: 148934 1 Tablet(s) PO QD 08/08/2018 Inactive gabapentin 300 mg capsule RxNorm: 552615 1 CAPSULE(S) P O QHS DUE FOR WELLNESS VISIT 08/07/2018 10/08/2018 Inactive due for followup meloxicam 15 mg tablet RxNorm: 198157 Tablet(s) 1 TABLET(S) PO QD 1 10/07/2017 08/07/2018 Inactive fenofibrate micronized 134 mg capsule RxNorm: 798990 1 Capsule(s) PO QD Needs updated fasting labs!!!!!! 07/08/2018 07/07/2018 Inactive fenofibrate micronized 134 mg capsule RxNorm: 261677 1 Capsule( s) PO QD 07/08/2018 01/01/2019 Inactive fenofibrate micronized 134 mg capsule RxNorm: 010113 1 Capsule(s) PO QD Needs updated fasting labs!!!!!! 06/21/2018 07/08/2018 Inactive Medrol (Daniel) 4 mg tablets in a dose pack RxNorm: 798962 Tablet(s) PO As Directed 05/06/2018 05/05/2018 Inactive Medrol (Daniel) 4 mg tablets in a dose pack RxNorm: 814011 Tablet(s) PO As Directed 05/06/2018 08/07/2018 Inactive quinapril 40 mg tablet RxNorm: 025224 1 TABLET(S) PO QD 05/02/2018 Inactive Patient requests 90 days supply fenofibrate micronized 134 mg capsule RxNorm: 634471 1 Capsule(s) PO QD Needs updated fasting labs 04/29/2018 05/28/2018 Inactive Move Free Joint Health 750 mg-100 mg-1.65 mg-108 mg tablet R xNorm: 1 Tablet(s) PO QD 02/12/2018 03/13/2018 Inactive fenofibrate micronized 134 mg capsule RxNorm: 588941 Ca psule(s) 1 CAPSULE(S) PO QD 01/29/2018 06/21/2018 Inactive quinapril 40 mg tablet RxNorm: 893241 1 TABLET(S) PO QD 11/26/2017 Inactive Patient requests 90 days supply fenofibrate micronized 134 mg capsule RxNorm: 174313 1 CAPSULE( S) PO QD 11/06/2017 01/29/2018 Inactive gabapentin 300 mg capsule RxNorm: 485370 1 CAPSULE(S) P O QHS DUE FOR WELLNESS VISIT 10/24/2017 07/20/2018 Inactive due for followup meloxicam 15 mg tablet RxNorm: 556357 1 TABLET(S) PO QD 10/24/2017 Inactive quinapril 40 mg tablet RxNorm: 756388 1 Tablet(s) PO QD 10/24/2017 Inactive fenofibrate micronized 134 mg capsule RxNorm: 198049 1 Capsule( s) PO QD 08/22/2017 11/05/2017 Inactive fenofibrate micronized 134 mg capsule RxNorm: 140807 1 Capsule( s) PO QD 08/22/2017 08/21/2017 Inactive quinapril 20 mg tablet RxNorm: 105753 1 Tablet(s) PO QD 08/13/2017 Inactive gabapentin 300 mg capsule RxNorm: 253479 1 Capsule(s) P O QHS Due for wellness visit 08/06/2017 10/23/2017 Inactive due for followup gabapentin 300 mg capsule RxNorm: 532175 1 Capsule(s) P O QHS Due for wellness visit 08/02/2017 08/05/2017 Inactive due for followup meloxicam 15 mg tablet RxNorm: 914623 1 Tablet(s) PO QD 08/01/2017 Inactive gabapentin 300 mg capsule RxNorm: 002444 1 Capsule(s) P O QHS Due for wellness visit 08/01/2017 08/01/2017 Inactive due for followup gabapentin 300 mg capsule RxNorm: 179428 1 Capsule(s) P O QHS Due for wellness visit 08/01/2017 08/02/2017 Inactive gabapentin 300 mg capsule RxNorm: 895642 1 Capsule(s) PO QHS 201605/12/2017 Inactive quinapril 10 mg tablet RxNorm: 002163 1 Tablet(s) PO QD replace s quinapril hct 02/12/2017 08/12/2017 Inactive meloxicam 15 mg tablet RxNorm: 190465 1 Tablet(s) PO QD 02/05/2017 Inactive quinapril 10 mg tablet RxNorm: 469182 1 Tablet(s) PO QD replace s quinapril hct 11/16/2016 02/12/2017 Inactive gabapentin 300 mg capsule RxNorm: 161321 1 Capsule(s) PO QHS 201602/12/2017 Inactive quinapril 10 mg tablet RxNorm: 506455 1 Tablet(s) PO QD replace s quinapril hct 10/16/2016 11/15/2016 Inactive gabapentin 300 mg capsule RxNorm: 793862 1 Capsule(s) PO QHS 201511/15/2016 Inactive quinapril 10 mg tablet RxNorm: 037894 1 Tablet(s) PO QD replace s quinapril hct 07/19/2016 10/15/2016 Inactive meloxicam 15 mg tablet RxNorm: 170849 1 Tablet(s) PO QD 07/10/2016 Inactive meloxicam 15 mg tablet RxNorm: 710787 TAKE ONE TABLET BY MOUTH LUKE Y 07/10/2016 07/09/2016 Inactive meloxicam 15 mg tablet RxNorm: 041147 1 Tablet(s) PO QD 07/06/2016 Inactive meloxicam 15 mg tablet RxNorm: 354532 1 Tablet(s) PO QD 06/09/2016 Inactive Multivitamin & Mineral Formula tablet RxNorm: 1 Tablet(s) PO Q D 06/02/2016 07/01/2016 Inactive tamsulosin 0.4 mg capsule RxNorm: 003801 1 Capsule(s) PO QHS 201507/01/2016 Inactive Move Free Joint Health 750 mg-100 mg-1.65 mg-108 mg tablet R xNorm: 1 Tablet(s) PO QD 06/02/2016 07/01/2016 Inactive gabapentin 300 mg capsule RxNorm: 485230 1 Capsule(s) PO QHS 201508/27/2016 Inactive gabapentin 300 mg capsule RxNorm: 171317 Capsule(s) ALFONZO E ONE CAPSULE BY MOUTH AT BEDTIME 02/28/2016 05/27/2016 Inactive quinapril 10 mg-hydrochlorothiazide 12.5 mg tablet RxNorm: 3 71156 Tablet(s) TAKE ONE TABLET BY MOUTH EVERY MORNING 01/14/2016 07/18/2016 Inactive gabapentin 300 mg capsule RxNorm: 464342 TAKE ONE CAPSULE BY [facility] AT BEDTIME 12/28/2015 02/27/2016 Inactive Urecholine 25 mg tablet RxNorm: 291765 1 Tablet(s) PO TID 11/09/2015 07/18/2016 Inactive phenazopyridine 100 mg tablet RxNorm: 3138124 1 Tablet(s ) PO TID as needed for bladder spasms. 11/08/2015 11/08/2015 Inactive quinapril 10 mg-hydrochlorothiazide 12.5 mg tablet RxNorm: 3 45529 TAKE ONE TABLET BY MOUTH EVERY MORNING 10/15/2015 01/13/2016 Inactive gabapentin 300 mg capsule RxNorm: 647351 1 Tablet(s) PO QD TAKE ONE CAPSULE BY MOUTH EVERY NIGHT AT BEDTIME 09/23/2015 12/21/2015 Inactive quinapril 10 mg-hydrochlorothiazide 12.5 mg tablet RxNorm: 3 89565 Tablet(s) TAKE ONE TABLET BY MOUTH EVERY MORNING 07/14/2015 10/14/2015 Inactive gabapentin 300 mg capsule RxNorm: 313339 1 Tablet(s) PO QD TAKE ONE CAPSULE BY MOUTH EVERY NIGHT AT BEDTIME 06/25/2015 09/23/2015 Inactive prednisone 20 mg tablet RxNorm: 587016 1 Tablet(s) PO QD 06/14/2015 0 06/20/2015 Inactive cephalexin 500 mg capsule RxNorm: 559937 1 Capsule(s) PO BID 201405/27/2015 Inactive mupirocin 2 % topical ointment RxNorm: 602452 TOP BID 05/18/2015 0 06/13/2015 Inactive quinapril 10 mg-hydrochlorothiazide 12.5 mg tablet RxNorm: 3 70323 Tablet(s) TAKE ONE TABLET BY MOUTH EVERY MORNING 04/06/2015 07/14/2015 Inactive gabapentin 300 mg capsule RxNorm: 605844 1 Capsule(s) PO QHS 201404/01/2015 Inactive [SAVINGS FOR NON-COVERED LILIANA GS -- BIN:148653, PCN: ASPROD1, Group: XXXXX, ID# [id number], Questions: . THIS IS NOT INSURANCE.] gabapentin 300 mg capsule RxNorm: 299038 1 Capsule(s) PO QHS 201406/25/2015 Inactive [SAVINGS FOR NON-COVERED LILIANA GS -- BIN:500874, PCN: ASPROD1, Group: XXXXX, ID# [id number], Questions: . THIS IS NOT INSURANCE.] quinapril 10 mg-hydrochlorothiazide 12.5 mg tablet RxNorm: 3 43225 TAKE ONE TABLET BY MOUTH EVERY MORNING 12/11/2014 04/05/2015 Inactive gabapentin 300 mg capsule RxNorm: 849489 1 Capsule(s) PO QHS 201404/02/2015 Inactive [SAVINGS FOR NON-COVERED LILIANA GS -- BIN:791697, PCN: ASPROD1, Group: XXXXX, ID# [id number], Questions: . THIS IS NOT INSURANCE.] cyclobenzaprine 10 mg tablet RxNorm: 513753 1 Tablet(s) PO TID as needed for muscle spasm for muscle spasm 12/02/2014 02/21/2015 Inactive [S AVINGS FOR NON- COVERED DRUGS -- BIN:738320, PCN: ASPROD1, Group: XXXXX, ID# [id number], Questions: . THIS IS NOT INSURANCE.] gabapentin 100 mg capsule RxNorm: 605084 1 Capsule(s) PO QHS 201412/01/2014 Inactive [SAVINGS FOR NON-COVERED LILIANA GS -- BIN:691621, PCN: ASPROD1, Group: XXXXX, ID# [id number], Questions: . THIS IS NOT INSURANCE.] ibuprofen 800 mg tablet RxNorm: 167316 1 Tablet(s) PO T ID as needed low back pain 11/11/2014 11/23/2014 Inactive [SAVINGS FOR NON -COVERED DRUGS -- BIN:747126, PCN: ASPROD1, Group: XXXXX, ID# [id number], Questions: . THIS IS NOT INSURANCE.] ibuprofen 800 mg tablet RxNorm: 737104 1 Tablet(s) PO T ID as needed low back pain 11/09/2014 11/10/2014 Inactive [SAVINGS FOR NON -COVERED DRUGS -- BIN:364486, PCN: ASPROD1, Group: XXXXX, ID# [id number], Questions: . THIS IS NOT INSURANCE.] Zorvolex 35 mg capsule RxNorm: 8296823 1 Tablet(s) PO TID 08/27/2014 10/01/2014 Inactive [SAVINGS FOR UNINSURED PATIENTS -- BIN:0 10880, PCN: ASPROD1, Group: AME08, ID# [id number], Process claim through [employer], for questions: . THIS IS NOT INSURANCE.] quinapril 10 mg-hydrochlorothiazide 12.5 mg tablet RxNorm: 3 60811 1 Tablet(s) PO QAM 08/27/2014 11/24/2014 Inactive Lidoderm 5 % (700 mg/patch) adhesive patch RxNorm: 9799657 Application TOP for 12hours then off for pain 08/18/2014 02/21/2015 Inactive [SAVIN GS FOR UNINSURED PATIENTS -- BIN:746735, PCN: ASPROD1, Group: AME08, ID# [id number], Process claim through [employer], for questions: . THIS IS NOT INSURANCE.] Zorvolex 35 mg capsule RxNorm: 2278627 1 Tablet(s) PO TID 08/13/2014 08/12/2014 Inactive Zorvolex 35 mg capsule RxNorm: 9241615 1 Tablet(s) PO TID 08/13/2014 08/24/2014 Inactive [SAVINGS FOR UNINSURED PATIENTS -- BIN:0 46147, PCN: ASPROD1, Group: AME08, ID# [id number], Process claim through [employer], for questions: . THIS IS NOT INSURANCE.] Aspirin Child 81 mg chewable tablet RxNorm: 616056 1 Tablet(s) PO QD No Start Date Active ibuprofen 800 mg tablet RxNorm: 798634 1 Tablet(s) PO T ID as needed low back pain No Start Date 11/08/2014 Inactive cyclobenzaprine 10 mg tablet RxNorm: 785199 1 Tablet(s) PO TID No S tart Date 08/12/2017 Inactive garlic 1,000 mg capsule RxNorm: 848724 1 Capsule(s) PO QD No Start Date 04/22/2019 Inactive tramadol 50 mg tablet RxNorm: 368046 1 Tablet(s) PO Q4-6H as ne eded for pain No Start Date 02/21/2015 Inactive tramadol 50 mg tablet RxNorm: 346850 1 Tablet(s) PO TID as needed for pain along with two tylenol No Start Date 01/07/2019 Inactive krill oil oral RxNorm: 23865 oral No Start Date 11/11/2018 Inacti ve Vitamin D3 2,000 unit tablet RxNorm: 876694 1 Tablet(s) PO QD No St art Date 08/12/2019 Inactive gabapentin 100 mg tablet RxNorm: 626890 1 Tablet(s) PO QD No Start Date 11/10/2014 Inactive Zofran 4 mg tablet RxNorm: 931046 1 Tablet(s) PO Q6H as needed No S tart Date 08/12/2019 Inactive Elimite 5 % topical cream RxNorm: 311727 1 Application TOP QHS apply head to toe and was off in morning No Start Date 05/18/2019 Inactive gabapentin 100 mg capsule RxNorm: 580862 1 Capsule(s) PO QHS No Sta rt Date 11/10/2014 Inactive aspirin 325 mg tablet RxNorm: 698754 2 Tablet(s) PO QD No Start Date 08/17/2014 Inactive Fish Oil 1,000 mg capsule RxNorm: 1 Capsule(s) PO QD No Start Date 10/08/2018 Inactive quinapril 10 mg-hydrochlorothiazide 12.5 mg tablet RxNorm: 3 65584 1 Tablet(s) PO QAM No Start Date 08/26/2014 Inactive quinapril 40 mg tablet RxNorm: 353840 1 Tablet(s) PO QD No Start Da te 10/23/2017 Inactive Medrol (Daniel) 4 mg tablets in a dose pack RxNorm: 113678 Tablet(s) PO As Directed No Start Date 05/05/2018 Inactive Urecholine 25 mg tablet RxNorm: 264734 1 Tablet(s) PO TID No Start Date 11/08/2015 Inactive cyclobenzaprine 10 mg tablet RxNorm: 173308 1/2-1 Table t(s) PO TID as needed for muscle spasm No Start Date 12/01/2014 Inactive tamsulosin 0.4 mg capsule RxNorm: 695006 2 Capsule(s) PO QPM No Sta rt Date 08/12/2019 Inactive hydrocodone 5 mg-acetaminophen 325 mg tablet RxNorm: 510527 1 -2 Tablet(s) PO Q6H as needed No Start Date 05/20/2019 Inactive loratadine 10 mg tablet RxNorm: 421088 1 Tablet(s) PO QD No Start D ate 07/07/2014 Inactive Medication Administered No Medication Administered data Immunizations Vaccine Codes Date Status Influenza CVX: 141 07/21/2019 Results Observation Observation Code Item Item Code Result Date S ervice Location CULTURE, AEROBIC BACTERIA 98543 CULTURE, AEROBIC BACTERIA SEE NOTE 10/30/2019 [facility] [address] [place] [address] CULTURE, URINE, ROUTINE 395 CULTURE SEE NOTE 1 10/15/2018 [facility] Becerra [address] [place] [address] CULTURE, URINE, ROUTINE 395 CULTURE, URINE, ROUTINE SEE NOTE 08/15/2019 [facility] [address] CBC (H/H, RBC, INDICES, WBC, PLT) 78852 WHITE BLOOD CELL COU NT 7.9 Thousand/uL 08/14/[address] [address] CBC (H/H, RBC, INDICES, WBC, PLT) 15450 RED BLOOD CELL COUNT 4.93 Million/uL 08/14/2019 [facility] [address] CBC (H/H, RBC, INDICES, WBC, PLT) 50128 HEMOGLOBIN 15 .4 g/dL 08/14/2019 [facility] [address] CBC (H/H, RBC, INDICES, WBC, PLT) 75154 HEMATOCRIT 45 .0 % 08/14/2019 [facility] [address] [address] CBC (H/H, RBC, INDICES, WBC, PLT) 95690 MCV 91 .3 fL 08/14/2019 [facility] [address] CBC (H/H, RBC, INDICES, WBC, PLT) 36975 MCH 31 .2 pg 08/14/2019 [facility] [address] CBC (H/H, RBC, INDICES, WBC, PLT) 05646 MCHC 34 .2 g/dL 08/14/[address] [address] CBC (H/H, RBC, INDICES, WBC, PLT) 04649 RDW 12 .7 % 08/14/2019 [facility] [address] CBC (H/H, RBC, INDICES, WBC, PLT) 25736 PLATELET COUNT 214 Thousand/uL 08/14/2019 [facility] [address] CBC (H/H, RBC, INDICES, WBC, PLT) 12433 MPV 11 .5 fL 08/14/2019 [facility] [address] COMPREHENSIVE METABOLIC PANEL 82164 Glucose 113 mg /dL 08/14/2019 [facility] [address] [address] COMPREHENSIVE METABOLIC PANEL 51096 UREA NITROGEN (BUN) 16 mg/dL 08/14/2019 [facility] [address] [address] COMPREHENSIVE METABOLIC PANEL 77314 CREATININE 0.86 m g/dL 08/14/2019 [facility] [address] [address] COMPREHENSIVE METABOLIC PANEL 14250 eGFR NON-AFR. INDONESIAN 92 mL/min/1.73m2 08/14/2019 [facility] [address] [address] COMPREHENSIVE METABOLIC PANEL 20899 eGFR 106 mL/min/1.73m2 08/14/2019 [facility] [address] [address] COMPREHENSIVE METABOLIC PANEL 20511 BUN/CREATININE RATIO NOT APPLICABLE (calc) 08/14/2019 [facility] [address] [place] [address] COMPREHENSIVE METABOLIC PANEL 42287 SODIUM 141 mm ol/L 08/14/2019 [facility] [address] [address] COMPREHENSIVE METABOLIC PANEL 28028 POTASSIUM 4.1 mm ol/L 08/14/2019 [facility] [address] [address] COMPREHENSIVE METABOLIC PANEL 25886 CHLORIDE 102 mm ol/L 08/14/2019 [facility] [address] [address] COMPREHENSIVE METABOLIC PANEL 23823 CARBON DIOXIDE 28 mmol/L 08/14/2019 [facility] [address] [address] COMPREHENSIVE METABOLIC PANEL 43114 CALCIUM 9.7 mg /dL 08/14/2019 [facility] [address] [address] COMPREHENSIVE METABOLIC PANEL 51028 PROTEIN, TOTAL 6. 7 g/dL 08/14/2019 [facility] [address] [address] COMPREHENSIVE METABOLIC PANEL 45162 ALBUMIN 4.3 g/ dL 08/14/2019 [facility] [address] [address] COMPREHENSIVE METABOLIC PANEL 65303 GLOBULIN 2.4 g/ dL(calc) 08/14/2019 [facility] [address] COMPREHENSIVE METABOLIC PANEL 48501 ALBUMIN/GLOBULIN RATIO 1.8 (calc) 08/14/2019 [facility] [address] COMPREHENSIVE METABOLIC PANEL 91763 BILIRUBIN, TOTAL 1.0 mg/dL 08/14/[address] [address] COMPREHENSIVE METABOLIC PANEL 49428 ALKALINE PHOSPHATASE 56 U/L 08/14/2019 [facility] [address] COMPREHENSIVE METABOLIC PANEL 67080 AST 18 U/L 08/14/[address] [facility] [address] COMPREHENSIVE METABOLIC PANEL 49382 ALT 28 U/L 08/14/[address] [facility] [address] MAGNESIUM 53689 MAGNESIUM 2.0 mg/dL 06/06/2019 [facility] [address] COMPREHENSIVE METABOLIC PANEL 89250 Glucose 106 mg /dL 06/06/[address] [facility] [address] COMPREHENSIVE METABOLIC PANEL 90855 UREA NITROGEN (BUN) 22 mg/dL 06/06/[address] [facility] [address] COMPREHENSIVE METABOLIC PANEL 90323 CREATININE 1.29 m g/dL 06/06/[address] [facility] [address] COMPREHENSIVE METABOLIC PANEL 30739 eGFR NON-AFR. INDONESIAN 58 mL/min/1.73m2 06/06/2019 [facility] [address] COMPREHENSIVE METABOLIC PANEL 24049 eGFR 67 mL/min/1.73m2 06/06/2019 [facility] [address] COMPREHENSIVE METABOLIC PANEL 22256 BUN/CREATININE RATIO 17 (calc) 06/06/2019 [facility] [address] COMPREHENSIVE METABOLIC PANEL 08879 SODIUM 138 mm ol/L 06/06/2019 [facility] [address] COMPREHENSIVE METABOLIC PANEL 90619 POTASSIUM 4.2 mm ol/L 06/06/2019 [facility] [address] COMPREHENSIVE METABOLIC PANEL 11082 CHLORIDE 101 mm ol/L 06/06/2019 [facility] [address] COMPREHENSIVE METABOLIC PANEL 37145 CARBON DIOXIDE 29 mmol/L 06/06/2019 [facility] [address] COMPREHENSIVE METABOLIC PANEL 64103 CALCIUM 9.6 mg /dL 06/06/2019 [facility] [address] COMPREHENSIVE METABOLIC PANEL 39811 PROTEIN, TOTAL 6. 9 g/dL 06/06/2019 [facility] [address] COMPREHENSIVE METABOLIC PANEL 07609 ALBUMIN 4.4 g/ dL 06/06/2019 [facility] [address] COMPREHENSIVE METABOLIC PANEL 29106 GLOBULIN 2.5 g/ dL(calc) 06/06/2019 [facility] [address] COMPREHENSIVE METABOLIC PANEL 15880 ALBUMIN/GLOBULIN RATIO 1.8 (calc) 06/06/2019 [facility] [address] COMPREHENSIVE METABOLIC PANEL 15400 BILIRUBIN, TOTAL 0.7 mg/dL 06/06/2019 [facility] [address] COMPREHENSIVE METABOLIC PANEL 85211 ALKALINE PHOSPHATASE 45 U/L 06/06/2019 [facility] [address] COMPREHENSIVE METABOLIC PANEL 22987 AST 21 U/L 06/06/2019 [facility] [address] COMPREHENSIVE METABOLIC PANEL 20948 ALT 34 U/L 06/06/2019 [facility] [address] CULTURE, URINE, ROUTINE 395 CULTURE, URINE, ROUTINE SEE NOTE 04/23/2019 [facility]ostics[facility]am Becerra [address] [place] [address] CULTURE, URINE, ROUTINE 395 CULTURE SEE NOTE 0 04/23/2019 [facility] [address] [address] EXTRA 1014 EXTRA TUBE RECEIVED 04/22 [facility] DiagnosticsCoreyStallings [address] [address] EXTRA 1014 SPECIMEN TYPE RECEIVED: LAV 0 04/22/2019 [facility]osticsWisam [address] [address] COMPREHENSIVE METABOLIC PANEL 20276 Glucose 94 mg/ dL 04/22/2019 [facility] [address] COMPREHENSIVE METABOLIC PANEL 57995 UREA NITROGEN (BUN) 20 mg/dL 04/22/2019 [facility] DiagnosticsChiragStallings [address] [address] COMPREHENSIVE METABOLIC PANEL 99000 CREATININE 1.30 m g/dL 04/22/2019 [facility]osticsChiragStallings [address] [address] COMPREHENSIVE METABOLIC PANEL 28179 eGFR NON-AFR. INDONESIAN 58 mL/min/1.73m2 04/22/2019 [facility]osticsChiragStallings [address] [address] COMPREHENSIVE METABOLIC PANEL 05895 eGFR 67 mL/min/1.73m2 04/22/2019 [facility]osticsChiragStallings [address] [address] COMPREHENSIVE METABOLIC PANEL 72926 BUN/CREATININE RATIO 15 (calc) 04/22/2019 [facility] [address] [address] COMPREHENSIVE METABOLIC PANEL 86459 SODIUM 139 mm ol/L 04/22/2019 [facility]osticsWisam [address] [address] COMPREHENSIVE METABOLIC PANEL 20024 POTASSIUM 4.2 mm ol/L 04/22/2019 [facility] [address] [address] COMPREHENSIVE METABOLIC PANEL 87435 CHLORIDE 104 mm ol/L 04/22/2019 [facility]osticsChiragStallings [address] [address] COMPREHENSIVE METABOLIC PANEL 93807 CARBON DIOXIDE 27 mmol/L 04/22/2019 [facility] [address] COMPREHENSIVE METABOLIC PANEL 61794 CALCIUM 9.9 mg /dL 04/22/[address] [address] COMPREHENSIVE METABOLIC PANEL 80136 PROTEIN, TOTAL 7. 1 g/dL 04/22/[address] [address] COMPREHENSIVE METABOLIC PANEL 81498 ALBUMIN 4.6 g/ dL 04/22/[address] [address] COMPREHENSIVE METABOLIC PANEL 69088 GLOBULIN 2.5 g/ dL(calc) 04/22/2019 [facility] [address] COMPREHENSIVE METABOLIC PANEL 17428 ALBUMIN/GLOBULIN RATIO 1.8 (calc) 04/22/[address] [address] COMPREHENSIVE METABOLIC PANEL 93155 BILIRUBIN, TOTAL 0.4 mg/dL 04/22/[address] [address] COMPREHENSIVE METABOLIC PANEL 64511 ALKALINE PHOSPHATASE 53 U/L 04/22/[address] [address] COMPREHENSIVE METABOLIC PANEL 19211 AST 21 U/L 04/22/[address] [address] COMPREHENSIVE METABOLIC PANEL 75711 ALT 34 U/L 04/22/[address] [address] CULTURE, URINE, ROUTINE 395 CULTURE, URINE, ROUTINE SEE NOTE 01/31/[address] [address] Procedures Procedure Codes Date CULTURE, THROAT CPT-4: 28262 12/30/2019 CULTURE, AEROBIC BACTERIA CPT-4: 66218 10/27/2019 URINALYSIS NONAUTO W/O SCOPE CPT-4: 88847 10/02/2019 URINE CULTURE/ COLONY COUNT CPT-4: 34989 10/02/2019 ROUTINE VENIPUNCTURE CPT-4: 55100 08/13/2019 URINALYSIS NONAUTO W/O SCOPE CPT-4: 85711 08/13/2019 CULTURE, URINE, ROUTINE CPT-4: 395 08/13/2019 COMPREHENSIVE METABOLIC PANEL CPT-4: 42425 08/13/2019 CBC (H/H, RBC, INDICES, WBC, PLT) CPT-4: 17773 2018 COMPREHENSIVE METABOLIC PANEL CPT-4: 79362 06/05/2019 MAGNESIUM CPT-4: 17200 06/05/2019 DEXAMETHASONE SODIUM PHOS CPT-4: J1100 05/21/2019 THER/PROPH/DIAG INJ SC/IM CPT-4: 32909 05/21/2019 TRIAMCINOLONE ACET INJ NOS CPT-4: J3301 05/21/2019 ROUTINE VENIPUNCTURE CPT-4: 67013 04/21/2019 COMPREHENSIVE METABOLIC PANEL CPT-4: 87196 04/21/2019 EXTRA CPT-4: 1014 04/21/2019 CULTURE, URINE, ROUTINE CPT-4: 395 04/21/2019 URINALYSIS NONAUTO W/O SCOPE CPT-4: 81811 04/21/2019 URINALYSIS NONAUTO W/O SCOPE CPT-4: 25141 01/29/2019 CULTURE, URINE, ROUTINE CPT-4: 395 01/29/2019 DRAIN/INJECT JOINT/BURSA CPT-4: 33447 02/19/2018 TRIAMCINOLONE ACET INJ NOS CPT-4: J3301 02/19/2018 DEXAMETHASONE SODIUM PHOS CPT-4: J1100 02/19/2018 THER/PROPH/DIAG INJ SC/IM CPT-4: 71858 02/12/2018 TRIAMCINOLONE ACET INJ NOS CPT-4: J3301 02/12/2018 DEXAMETHASONE SODIUM PHOS CPT-4: J1100 02/12/2018 CEFTRIAXONE SODIUM INJECTION CPT-4: J0696 12/03/2017 THER/PROPH/DIAG INJ SC/IM CPT-4: 98920 12/03/2017 THER/PROPH/DIAG INJ SC/IM CPT-4: 20072 12/03/2017 METHYLPREDNISOLONE INJECTION CPT-4: J2930 12/03/2017 URINALYSIS NONAUTO W/O SCOPE CPT-4: 73510 08/13/2017 STREP A ASSAY W/OPTIC CPT-4: 04505 02/13/2017 DESTRUCT PREMALG LESION (Cryosurgery) CPT-4: 87410 Vital Signs Date Vital 12/30/2019 Temperature: 36.9 [...] 1: 128/78 Code: 8480-6 BMI: 36.0 Code: 40762-6 Heart Rate 1: 68 bpm Height: 5'7" [...] 1: 138/86 Code: 8480-6 BMI: 35.6 Code: 07095-6 Heart Rate 1: 68 bpm Height: 5'7" SpO2: 95% Temperature: 36.6 (C) / 97.8 (F) Weight: 227 lbs 12/03/2017 Blood Pressure 1: 134/84 Code: 8480-6 BMI: 34.3 Code: 04319-9 Heart Rate 1: 68 bpm Height: 5'7" Respiratory Rate: 20 bpm SpO2: 96% Tempera ture: 35.9 (C) / 96.6 (F) Weight: 219 lbs 09/11/2017 Blood Pressure 1: 140/86 Code: 8480-6 BMI: 34.9 Code: 64171-3 Heart Rate 1: 84 bpm Height: 5'7" Respiratory Rate: 20 bpm SpO2: 95% Tempera ture: 36.7 (C) / 98.1 (F) Weight: 223 lbs 08/13/2017 Blood Pressure 1: 142/94 Code: 8480-6 BMI: 34.5 Code: 63956-0 Heart Rate 1: 76 bpm Height: 5'7" Respiratory Rate: 20 bpm SpO2: 96% Tempera ture: 37.1 (C) / 98.8 (F) Weight: 220 lbs 11/17/2016 Blood Pressure 1: 118/78 Code: 8480-6 He art Rate 1: 64 bpm 07/19/2016 Blood Pressure 1: 112/58 Code: 8480-6 BMI: 31.6 Code: 76824-6 Heart Rate 1: 88 bpm Height: 5'7" Respiratory Rate: 22 bpm SpO2: 98% Tempera ture: 36.3 (C) / 97.4 (F) Weight: 202 lbs 06/09/2016 Blood Pressure 1: 138/84 Code: 8480-6 BMI: 32.1 Code: 91639-9 Heart Rate 1: 58 bpm Height: 5'7" Respiratory Rate: 20 bpm SpO2: 97% Tempera ture: 36.6 (C) / 97.8 (F) Weight: 205 lbs 11/08/2015 Blood Pressure 1: 142/80 Code: 8480-6 BMI: 32.4 Code: 54740-2 Heart Rate 1: 76 bpm Height: 5'7" Respiratory Rate: 20 bpm Temperature: 36 .6 (C) / 97.9 (F) Weight: 207 lbs 06/14/2015 Blood Pressure 1: 126/80 Code: 8480-6 Heart Rate 1: 84 bpm Respiratory Rate: 20 bpm Temperature: 36.8 (C) / 98.2 (F) Weight: 206 lbs 05/18/2015 Blood Pressure 1: 124/80 Code: 8480-6 BMI: 32.3 Code: 35200-4 Heart Rate 1: 68 bpm Height: 5'7" Respiratory Rate: 20 bpm Temperature: 36 .4 (C) / 97.6 (F) Weight: 206 lbs 02/22/2015 Blood Pressure 1: 126/78 Code: 8480-6 BMI: 32.1 Code: 13685-6 Heart Rate 1: 76 bpm Height: 5'7" Respiratory Rate: 20 bpm Temperature: 36 .6 (C) / 97.9 (F) Weight: 205 lbs 12/02/2014 Blood Pressure 1: 124/80 Code: 8480-6 BMI: 32.7 Code: 22683-3 Heart Rate 1: 70 bpm Height: 5'7" Respiratory Rate: 18 bpm Temperature: 36 .6 (C) / 97.9 (F) Weight: 209 lbs 08/18/2014 Blood Pressure 1: 132/94 Code: 8480-6 BMI: 34.5 Code: 46842-0 Heart Rate 1: 84 bpm Height: 5'6" Respiratory Rate: 20 bpm Temperature: 36 .6 (C) / 97.9 (F) Weight: 217 lbs 07/08/2014 Blood Pressure 1: 142/88 Code: 8480-6 BMI: 34.3 Code: 44133-2 Heart Rate 1: 72 bpm Height: 5'6" [...] Visit Encounters Encounter Performer Location Codes Date ([id number]) NURSE/OUTPATIENT VISIT EST Diagnosis: Sore throat[ICD10: J02.9] Sapna HASSAN [employer] CPT-4: 41219 12/30/2019 ([id number]) OFFICE/OUTPATIENT VISIT EST Diagnosis: Allergic rhinitis[ICD10: J30.9] Diagnosis: Postnasal drip[ICD10: R09.82] [facility]: 37457 12/19/2019 ([id number]) NO CHARGE Diagnosis: Infected sebaceous cyst[ICD10: L72.3] Sapna REDMOND SAmarjit PROCTORER [employer] CPT-4: 21046 11/03/2019 ([id number]) OFFICE/OUTPATIENT VISIT EST Diagnosis: Disorder of the skin and subcutaneous tissue, unspecified[ICD10: L98.9] Diagnosis: Infected sebaceous cyst[ICD10: L72.3] Diagnosis: Local infection of the skin and subcutaneous tissue, unspecified[ICD10: L08.9] Lashell CORRAL SAmarjit QUINTONNDER [employer] CPT-4 : 33947 10/27/2019 ([id number]) OFFICE/OUTPATIENT VISIT EST Diagnosis: Suprapubic abdominal pain[ICD10: R10.2] Diagnosis: Aortic regurgitation[ICD10: I35.1] Sapna GAUTAM SAmarjit COATSNDER [employer] CPT-4: 96735 10/02/2019 ([id number]) OFFICE/OUTPATIENT VISIT EST Diagnosis: Chest pain[ICD10: R07.9] Lashell BILLINGS [employer] CPT-4: 45476 08/25/2019 ([id number]) OFFICE/OUTPATIENT VISIT EST Diagnosis: Thoracic back pain[ICD10: M54.6] Diagnosis: Disorder of kidney and ureter, unspecified[ICD10: N28.9] Diagnosis: Personal history of nicotine dependence[ICD10: Z87.891] 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 QUINTONND EDVIN [employer] [facility] CPT-4: 48510 07/03/2019 ([id number]) OFFICE/OUTPATIENT VISIT EST Diagnosis: Cramp and spasm[ICD10: R25.2] Diagnosis: Disorder of kidney and ureter, unspecified[ICD10: N28.9] Lashell BRUNSONLINE JefryAmarjit HITESHER [employer] [facility] CPT-4: 40849 06/05/2019 ([id number]) OFFICE/OUTPATIENT VISIT EST Diagnosis: Other pruritus[ICD10: L29.8] Diagnosis: Pain in right knee[ICD10: M25.561] Lashell SHAHTIFFANIE GAUTAM S. QUINTONNDEDVIN [employer] [facility] CPT-4: 17359 05/21/2019 ([id number]) NURSE/OUTPATIENT VISIT EST Diagnosis: Edema, unspecified[ICD10: R60.9] Sapna Quintonclaudio CORRAL S. HITESHER [employer] [facility] CPT-4: 56544 04/21/2019 ([id number]) OFFICE/OUTPATIENT VISIT EST Diagnosis: Diverticulitis of large intestine without perforation or abscess without bleeding[ICD10: K57.32] Diagnosis: Snoring[ICD10: R06.83] Diagnosis: Other constipation[ICD10: K59.09] Lashell SHAHDESIREE Chandler S. QUINTONNDER [employer] [facility] CPT-4: 18807 02/24/2019 ([id number]) OFFICE/OUTPATIENT VISIT EST Diagnosis: Diverticulitis of large intestine without perforation or abscess with bleeding[ICD10: K57.33] Nancy CORRAL Jefry. HITESHER [employer] [facility] CPT-4: 50392 02/04/2019 ([id number]) OFFICE/OUTPATIENT VISIT EST Diagnosis: Left lower quadrant pain[ICD10: R10.32] Nancy LIVE DO [facility] CPT-4: 30495 01/29/2019 OFFICE/OUTPATIENT VISIT EST Diagnosis: Dermatitis, unspecified[ICD10: L30.9] Diagnosis: Gastro-esophageal reflux disease without esophagitis[ICD10: K21.9] Diagnosis: Palpitations[ICD10: R00.2] Sapna AU [employer] [facility] CPT-4: 82395 12/19/2018 ([id number]) OFFICE/OUTPATIENT VISIT EST Diagnosis: Gastro-esophageal reflux disease without esophagitis[ICD10: K21.9] Diagnosis: Dysphagia, pharyngoesophageal phase[ICD10: R13.14] Sapna LIVE DO [facility] CPT-4: 48291 11/11/2018 ([id number]) PREV VISIT EST AGE 40-64 Diagnosis: Encounter [...] disorders of digestive system[ICD10: K91.89] Lashell LIVE [employer] [facility] CPT-4: 99 396 10/09/2018 ([id number]) OFFICE/OUTPATIENT VISIT EST Diagnosis: Pain in right knee[ICD10: M25.561] Diagnosis: Pain in right hip[ICD10: M25.551] Lashell LIVE DO [facility] CPT-4: 30312 02/12/2018 OFFICE/OUTPATIENT VISIT EST Diagnosis: Essential (primary) hypertension[ICD10: I10] Diagnosis: Other chest pain[ICD10: R07.89] Lashell LIVE DO [facility] CPT-4: 32401 12/03/2017 ([id number]) OFFICE/OUTPATIENT VISIT EST Diagnosis: Essential (primary) hypertension[ICD10: I10] Sapna LIVE DO [facility] CPT-4: 43190 09/11/2017 ([id number]) PREV VISIT EST AGE 40-64 Diagnosis: Encounter for general adult medical examination without abnormal findings[ICD10: Z00.00] Diagnosis: Essential (primary) hypertension[ICD10: I10] Diagnosis: Left lower quadrant pain[ICD10: R10.32] Diagnosis: Left upper quadrant pain[ICD10: R10.12] Diagnosis: Other intervertebral disc degeneration, 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] Sapna LIVE DO [facility] CPT-4: 41007 08/13/2017 ([id number]) OFFICE/OUTPATIENT VISIT EST Diagnosis: Acute pharyngitis, unspecified[ICD10: J02.9] Sapna LIVE DO [facility] CPT-4: 41355 02/13/2017 ([id number]) PREV VISIT EST AGE 40-64 Diagnosis: Encounter for general adult medical examination without abnormal findings[ICD10: Z00.00] Diagnosis: Essential (primary) hypertension[ICD10: I10] 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] Sapna LIVE DO [facility] CPT-4: 28849 07/19/2016 OFFICE/OUTPATIENT VISIT EST Diagnosis: Pain in thoracic spine[ICD10: M54.6] Diagnosis: Disorder of the skin and subcutaneous tissue, unspecified[ICD10: L98.9] Sobia Monreal SAPNA LIVE DO [facility] CPT-4: 70234 06/09/2016 OFFICE/OUTPATIENT VISIT EST Diagnosis: Retention of urine, unspecified[ICD10: R33.9] Diagnosis: Urinary tract infection, site not specified[ICD10: N39.0] Chelsie Teixeira SAPNA LIVE [employer] [facility] CPT-4: 84281 11/08/2015 ([id number]) OFFICE/OUTPATIENT VISIT EST Diagnosis: DERMATITIS NOS[ICD9: 692.9] Diagnosis: SEBACEOUS CYST[ICD9: 706.2] Sapna BOSCH DO [facility] CPT-4: 48226 06/14/2015 OFFICE/OUTPATIENT VISIT EST Diagnosis: LOCAL SKIN INFECTION[ICD9: 686.9] Diagnosis: FOLLICULITIS[ICD9: 704.8] Chelsie NoriegaAlysiaoscar HASSAN [facility] CPT-4: 21697 05/18/2015 ([id number]) OFFICE/OUTPATIENT VISIT EST Diagnosis: Constipation[ICD9: 564.00] Sapna AU [facility] CPT-4: 48846 02/22/2015 ([id number]) OFFICE/OUTPATIENT VISIT EST Diagnosis: Thoracic back pain[ICD9: 724.1] Diagnosis: Thoracic degenerative disc disease[ICD9: 722.51] Diagnosis: Scoliosis[ICD9: 737.30] Sapna PARDO [facility] CPT-4: 27513 12/02/2014 ([id number]) OFFICE/OUTPATIENT VISIT EST Diagnosis: Thoracic back pain[ICD9: 724.1] Diagnosis: ACTINIC KERATOSIS[ICD9: 702.0] Sapna LIVE [facility] CPT-4: 33613 08/18/2014 OFFICE/OUTPATIENT VISIT NEW Diagnosis: HYPERTENSION[ICD9: 401.9] Diagnosis: Thoracic back pain[ICD9: 724.1] Diagnosis: GERD[ICD9: 530.81] Diagnosis: Adrenal tumor[ICD9: 239.7] Sapna AU [facility] CPT-4: 26822 07/08/2014 ([id number]) OFFICE/OUTPATIENT VISIT NEW Diagnosis: HYPERTENSION[ICD9: 401.9] Diagnosis: GERD[ICD9: 530.81] Sapna PROCTOR [facility] CPT-4: 32900 07/08/2014 Plan of Care Planned Activity Notes Codes Status Date Visit Diagnosis Plan: Allergic rhinitis Discussion: Cl aritin 10mg po BID Call Sunday with how symptoms are doing Will also add famotodine at bedtime to cover for reflux etiology ICD-9 : 477.9 ICD-10 : J30.9 12/19/2019 Appointment: Sapna Live WPtel: [address] [place], [place] [id number] TELEMEDICINE 12/19/2019 Patient Education: famotidine- [employer] C[employer]on [id number] https://www.[employer]/sampleLive Mobile/resources/getResource/61/[email or web address]-o0 Completed 12/19/2019 Visit Diagnosis Plan: Infected sebaceous cyst Discussi on: Sent out 1 week of doxycycline ICD-9 : 706.2 ICD-10 : L72.3 11/03/2019 Appointment: Sapna Live WPtel: [phone] WOUND CARE 11/03/2019 Visit Diagnosis Plan: [...] ICD-10 : L08.9 10/27/2019 Appointment: Lashell Joe [address] [place], [place] [phone] ACUTE ILLNESS 10/27/2019 Patient Education: tramadol- [employer] Coupon [id number] https://www.[employer]/samplemd/resources/getResource/61/80y80x5n-e2p0-5000-z8 Completed 10/27/2019 Visit Plan: Update Low Dose CT scan of l ungs 10/02/2019 Visit Diagnosis Plan: Suprapubic abdominal pain Discus edvin: Improving Culture urine ICD-9 : 789.09 ICD-10 : R10.2 10/02/2019 Visit NOS Plan: Plan Notes: Update Low Dose CT scan of ming... 10/02/2019 Visit Diagnosis Plan: Aortic regurgitation Discussion: Referral to Cardiology ICD-9 : 424.1 ICD-10 : I35.1 10/02/2019 Appointment: Sapna Lvie WPtel: [phone] [id number] FOLLOW UP 10/02/2019 Care Plan: Referral Order SNOMED-CT : [id number] Pending 10/02/2019 Visit Diagnosis Plan: Chest pain Discussion: will star t with cxray and rib xray. discussed that could be lung, rib, muscle but will start with cxray and patient may need echo. he verbalized understanding. ICD-9 : 786.50 ICD-10 : R07.9 08/25/2019 Appointment: Lashell Joe [employer] [id number] ACUTE ILLNESS 08/25/2019 Visit Diagnosis Plan: Thoracic back pain Discussion: c hronic pain. will refer to dr. stallings at [place] for evaluation and treatment ICD-9 : 724.1 [...] ct of lungs to be done at [facility]. ICD-9 : V15.82 ICD-10 : [...] ICD-10 : E27.8 08/13/2019 Appointment: Lashell Joe [address] [place], [place] [id number] [place] FOLLOW UP 08/13/2019 Visit Diagnosis Plan: Sigmoid diverticulitis Discussio n: Bactrim/Flagyl [place] diet To ER this weekend if worsening ICD-9 : 562.11 ICD-10 : K57.32 07/03/2019 Visit Diagnosis Plan: Jock itch Discussion: Diflucan a nd topical nystatin ICD-9 : 110.3 ICD-10 : B35.6 07/03/2019 Visit Diagnosis Plan: Renal insufficiency Discussion: Labs discussed Continue off NSAIDS Hydrate Recheck Chemistry 3mos ICD-9 : 593.9 ICD-10 : N28.9 07/03/2019 Appointment: Sapna Live WPtel: [phone] [facility] FOLLOW UP 07/03/2019 Patient Education: fluconazole- [employer] Coupon [id number] Completed 07/03/2019 Patient Education: nystatin- [employer] C[employer]on [id number] Completed 07/03/2019 Visit Diagnosis Plan: Disorder of [...] ICD-10 : R25.2 06/05/2019 Appointment: Lashell Joe [address] [place], [place] [id number] NO SHOW - FORGIVEN 06/05/2019 Appointment: Lashell Joe [address] [place], [place] [phone] ACUTE ILLNESS 06/05/2019 Visit Diagnosis Plan: Pain [...] L29.8 05/21/2019 Appointment: David Joeysrancho Martinez [address] ACUTE ILLNESS 05/21/2019 Patient Education: hydroxyzine HCl- [employer] Coupon [id number] https://www.[employer]ha [employer]/samplemd/resources/getResource/61/gwjf33e3-x71z-18be-03 Completed 05/21/2019 Appointment: Sapna Live WPtel: [address] [place] [address] 05/19/19 1645---see note put in chart today (km) CANCELED 05/19/2019 Appointment: Sapna Live WPtel: [address] [place] [address] US CANCELED 05/05/2019 Appointment: Sapna Live WPtel: [address] [place] [address] UA 04/21/2019 Visit Diagnosis Plan: Diverticulitis of [...] : K59.09 02/24/2019 Appointment: Lashell Joe [address] Hospital Follow Up 02/24/2019 Visit Diagnosis Plan: Diverticulitis of large intestine without perforation or abscess with bleeding Discussion: Continue flagyl and cipro. A dvance diet to bland. BRAT diet advised. Avoid nuts, seeds, popcorn, roughage. RTC if abdominal pain worsens or does not improve. ICD-9 : 562.13 ICD-10 : K57.33 02/04/2019 Appointment: Nancy Mendiola [facility] FOLLOW UP 02/04/2019 Visit Diagnosis Plan: Left [...] ICD-10 : R10.32 01/29/2019 Appointment: Nancy Mendiola [facility] ACUTE ILLNESS 01/29/2019 Care Plan: CT PELVIS [...] : K21.9 12/19/2018 Appointment: Sapna Live WPtel: [phone] [facility] ACUTE ILLNESS 12/19/2018 Visit Diagnosis Plan: Gastro-esophageal reflux disease without esophagitis Discussion: Continue protonix at 40mg daily Hold mobic No NSAIDS Hold all MVs If persists then will need EGD ICD-9 : 530.81 ICD-10 : K21.9 11/11/2018 Appointment: Sapna Live WPtel[phone] [facility] 11/11/2018 Visit Diagnosis Plan: Encounter for [facility] adult medical examination without abnormal findings [...] ICD-10 : K91.89 10/09/2018 Appointment: Lashell Joe [address] [place] [address] Annual Well Visit 10/09/2018 Patient Education: gabapentin- [employer] Coupon [id number] Completed 10/09/2018 Patient Education: Kegel Exercises Comple catalina 10/09/2018 Patient Education: High Blood Pressure Co mpleted 10/09/2018 Visit Diagnosis Plan: Pain in right knee Discussion: c orticosteroid injection administered as described above. patient tolerated well. instructed to rtc in 3- 4 months if needed for additional injection. ICD-9 : 719.46 ICD-10 : M25.561 02/19/2018 Appointment: Lashell Joe [address] [place], [place] [address] OFFICE SURGERY 02/19/2018 Patient Education: Patient Medication [...] ICD-10 : M25.561 02/12/2018 Appointment: Lashell Joe [address] [place] [address] ACUTE ILLNESS 02/12/2018 Patient Education: Patient Medication Summary Completed 02/12/2018 Care Plan: X-RAY EXAM OF KNEE 1 OR 2 right [place]ICA MS : 09[address]-8 Pending 02/12/2018 Visit Diagnosis Plan: Essential (primary) [...] ICD-10 : R07.89 12/03/2017 Appointment: Lashell Joe [address] [place] [address] ESTABLISHED PATIENT 12/03/2017 Patient Education: Patient Medication Summary Completed 12/03/2017 Visit Diagnosis Plan: Essential (primary) hypertension Discussion: Increase quinapril to 40mg daily BP check in 1month ICD-9 : 401.9 ICD-10 : I10 09/11/2017 Appointment: Sapna Live WPtel: [address] [place] [address] FOLLOW UP 09/11/2017 Patient Education: Patient Medication Summary Completed 09/11/2017 Appointment: Sapna Live WPtel: [address] [place] [address] RESCHEDULED 08/22/2017 Visit Diagnosis Plan: Essential (primary) hypertension Discussion: Increase quinapril to 20mg daily Follow Up: 1 months ICD-9 : 401.9 ICD-10 : I10 08/13/2017 Visit Diagnosis Plan: Encounter for [facility] adult medical examination without abnormal findings Discussion: Update fasting lab ICD-9 : V70.9 ICD-10 : Z00.00 08/13/2017 Visit Diagnosis Plan: Left lower quadrant pain Discuss ion: Update colonoscopy ICD-9 : 789.04 ICD-10 : R10.32 08/13/2017 Appointment: Sapna Live WPtel: [address] [place] [address] Annual Well Visit 08/13/2017 Patient Education: Patient Medication Summary Completed 08/13/2017 Appointment: Sapna Live WPtel: [phone] [facility] THROAT SWAB 02/13/2017 Patient Education: Patient Medication Summary Completed 02/13/2017 Appointment: Sapna Live WPtel: [phone] [facility] BP CHECK 11/17/2016 Patient Education: Patient Medication Summary Completed 11/17/2016 Visit Plan: Due for colonoscopy in 2018 Had shingles shot and flu shot Change quinapril hct to plain quinapril and see if muscles twitches improve Fwup with Dr. Braga Lab discussed Discussed diet/exercise at length Check CT abdomen Recheck 3mos 07/19/2016 Appointment: Sapna Live WPtel: [phone] [place] [id number] 07/18 confirmed`sl PHYSICAL 07/19/2016 Patient Education: Patient [...] convenience 06/09/2016 Appointment: Sobia Monreal WPtel: [phone] [facility] ACUTE ILLNESS 06/09/2016 Patient Education: Patient Medication Summary Completed 06/09/2016 Referral: Demario Braga WPtel: [phone] [id number] [place] Referral Initiated 11/12/2015 Visit Plan: Continue indwelling catheter until follow-up with Dr. Omi Continue Bactrim and Cipro Pyridium TID for Bladder spasms 11/08/2015 Appointment: Chelsie Teixeira WPtel: [address] [place] [address] ER Follow UP 11/08/2015 Patient Education: Patient Medication Summary Completed 11/08/2015 Referral: Abdiel Tucker WPtel: [phone] [address] Referral Initiated 06/21/2015 Visit Plan: Prednisone 20mg daily for 1w [place] See surgery of cyst removal 06/14/2015 Appointment: Sapna Live WPtel: [address] [place], [place] [id number] 06/11 cn 06/14 [facility] FOLLOW UP 2014 Patient Education: Patient Medication Summary Completed 06/14/2015 Visit Plan: Warm moist compresses to Lef t shoulder lesion and apply topical Mupirocin twice daily Complete Cephalexin x 7 days as directed Resume Culturelle daily 05/18/2015 Appointment: Chelsie Teixeira WPtel: [address] [place] [address] ACUTE ILLNESS 05/18/2015 Patient Education: Patient Medication Summary Completed 05/18/2015 Visit Plan: Check fasting lab Use pain m eds prn with miralax on the day that takes pain meds 02/22/2015 Appointment: Sapna Live WPtel: [address] [place], [place] [phone] 02/19 [facility] 02/19 appt confirmed-lb ACUTE ILLNESS 5 Patient Education: Patient Medication Summary Completed 02/22/2015 Visit Plan: Increase neurontin to 300mg q HS Continue flexeril and tramadol Call in 1mo on how higher dose of gabapentin 12/02/2014 Appointment: Sapna Live WPtel: [address] [place], [place] [phone] FOLLOW UP 12/02/2014 Patient Education: Patient Medication Summary Completed 12/02/2014 Referral: Eric Angelo WPtel: [address] [facility] [id number] [place] Referral Appointment Confirmed 09/15/2014 Visit Plan: Proceed with pain doctor for possible injection vs nerve block Trial of lidoderm patch Cryotherapy to lesions as above 08/18/2014 Appointment: Sapna Live WPtel: [phone] [facility] ACUTE ILLNESS 08/18/2014 Patient Education: Patient Medication Summary Completed 08/18/2014 Patient Education: Patient Medication Summary Completed 08/13/2014 Visit Plan: Continue current meds Obtain most recent lab results Check thoracic spine x-rays Needs updated CT scan of adrenal tumor 07/08/2014 Appointment: Sapna Live WPtel: [phone] [facility] 07/07 NEW PATIENT 07/08/2014 Patient Education: Patient Medication Summary Completed 07/08/2014 Patient Education: Patient Medication Summary Completed 07/08/2014 Referral: Suhail Cardenas WPtel: [phone] [id number] [place] Referral Completed Referral: Toby Bettencourt WPtel: 1 [facility] A [id number] [place] Referral Completed Referral: Rosario Monahan WPtel: [phone] [facility] C [place] Referral Appointment Requested [...]
--- OUTSIDE RECORDS SUMMARY | 2020-02-05 07:47 | XMS REPORT | CCD ---
Author Author Jai Live D.O. 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 Name Role Phone Sapna Live D.O., PP Unavailable CCM Unavailable Summary Purpose Interface Exchange Insurance Providers Payer name Policy type / Coverage type Covered alliance party ID Effective Begin Date Effective End Date GPA Commercial Insurance [id number] 2019 Unknown Family history Mother Diagnosis Age At Onset Cancer Unknown Father Diagnosis Age At Onset Congestive heart failure Unknown Coronary Artery Disease(CAD) Unknown Social History Social History Element Codes Description Effective Dates Tobacco history SNOMED CT: 2826276 Former smoker 10/09/2018 Marital status Unknown 07/08/2014 Number of children Unknown 1 07/08/2014 Employment Unknown Currently employed [employer] 07/08/[address]: 391378128 Never drinks alcohol 2013 Has the patient [...] mg tablet,extended release 24 hr RxNor m: 080938 1 Tablet(s) Oral two times a day 12/22/2019 12/29/2019 Inactive clarithromycin ER 500 mg tablet,extended release 24 hr RxNor m: 785202 1 Tablet(s) Oral two times a day [...] Date Active famotidine 20 mg tablet RxNorm: 492717 1 Tablet(s) Oral QPM for postnasal drip/stomach 12/19/2019 01/18/2020 Active tramadol 50 mg tablet RxNorm: 005182 1 Tablet(s) Oral t hree times a day as needed for pain along with two tylenol 12/03/2019 No Stop Date Active doxycycline hyclate 100 mg capsule RxNorm: 2452399 1 Cap lee(s) Oral two times a day 11/03/2019 11/02/2019 Inactive doxycycline hyclate 100 mg capsule RxNorm: 6885977 1 Cap lee(s) Oral two times a day 11/03/2019 11/10/2019 Inactive tramadol 50 mg tablet RxNorm: 004407 1 Tablet(s) Oral t hree times a day as needed for pain along with two tylenol 10/27/2019 10/26/2019 Inactive tramadol 50 mg tablet RxNorm: 659522 1 Tablet(s) Oral t hree times a day as needed for pain along with two tylenol 10/27/2019 10/27/2019 Inactive cyclobenzaprine 10 mg tablet RxNorm: 060675 1 Tablet(s) Oral th ree times a day 10/27/2019 12/18/2019 Inactive Bactrim DS 800 mg-160 mg tablet RxNorm: 836905 1 Tablet(s) Oral two times a day 10/27/2019 11/03/2019 Inactive Bactrim DS 800 mg-160 mg tablet RxNorm: 384339 1 Tablet(s) Oral two times a day 10/27/2019 10/26/2019 Inactive tramadol 50 mg tablet RxNorm: 437167 1 Tablet(s) Oral t hree times a day as needed for pain along with two tylenol 09/29/2019 10/26/2019 Inactive quinapril 40 mg tablet RxNorm: 253232 1 Tablet(s) Oral QD 09/18/2019 03/15/2020 Active Patient requests 90 days supply tramadol 50 mg tablet RxNorm: 769558 1 Tablet(s) Oral t hree times a day as needed for pain along with two tylenol 08/28/2019 08/28/2019 Inactive tramadol 50 mg tablet RxNorm: 358182 1 Tablet(s) PO TID as needed for pain along with two tylenol 08/25/2019 08/27/2019 Inactive pantoprazole 40 mg tablet,delayed release RxNorm: 834484 1 Tabl et(s) Oral QD 08/13/2019 No Stop Date Active Vitamin D3 1,000 unit capsule RxNorm: 313706 1 Capsule(s) Oral QD 1 10/13/2018 12/18/2019 Inactive tamsulosin 0.4 mg capsule RxNorm: 266524 1 Capsule(s) Oral QPM 07/2612/18/2019 Inactive Protonix 40 mg tablet,delayed release RxNorm: 956567 TA KE 1 TABLET BY MOUTH TWICE A DAY 08/04/2019 08/12/2019 Inactive Flagyl 500 mg tablet RxNorm: 066410 1 Tablet(s) Oral three time s a day 07/03/2019 07/13/2019 Inactive fluconazole 100 mg tablet RxNorm: 326037 1 Tablet(s) Oral QD 201807/10/2019 Inactive Bactrim DS 800 mg-160 mg tablet RxNorm: 996137 1 Tablet(s) Oral two times a day 07/03/2019 07/13/2019 Inactive nystatin 100,000 unit/gram topical cream RxNorm: 155613 Application Topical two times a day 07/03/2019 08/12/2019 Inactive gabapentin 600 mg tablet RxNorm: 744159 Tablet(s) TAKE 1 TABLET BY MOUTH EVERY NIGHT AT BEDTIME 06/25/2019 08/12/2019 Inactive - First Attempt Ref: [id number] quinapril 40 mg tablet RxNorm: 899109 1 Tablet(s) Oral QD 06/23/2019 09/17/2019 Inactive Patient requests 90 days supply tramadol 50 mg tablet RxNorm: 357112 1 Tablet(s) PO TID as needed for pain along with two tylenol 05/23/2019 08/24/2019 Inactive hydroxyzine HCl 25 mg tablet RxNorm: 264510 1 Tablet(s) PO TID as needed 05/21/2019 08/12/2019 Inactive Elimite 5 % topical cream RxNorm: 072711 1 Application TOP QHS apply head to toe and was off in morning 05/19/2019 07/02/2019 Inactive Protonix 40 mg tablet,delayed release RxNorm: 026204 1 Tablet(s ) PO BID 05/05/2019 08/02/2019 Inactive - First Attempt Ref: [id number] gabapentin 600 mg tablet RxNorm: 598345 Tablet(s) TAKE 1 TABLET BY MOUTH EVERY NIGHT AT BEDTIME 04/25/2019 06/24/2019 Inactive - First Attempt Ref: [id number] tramadol 50 mg tablet RxNorm: 160832 1 Tablet(s) PO TID as needed for pain along with two tylenol 04/21/2019 05/22/2019 Inactive quinapril 40 mg tablet RxNorm: 931525 1 Tablet(s) PO QD 04/01/2019 Inactive Patient requests 90 days supply fenofibrate micronized 134 mg capsule RxNorm: 373722 1 Capsule(s) PO QD Due for updated fasting labs 03/31/2019 08/12/2019 Inactive dicyclomine 10 mg capsule RxNorm: 552580 1 Capsule(s) PO TID as needed 02/24/2019 05/20/2019 Inactive Flagyl 500 mg tablet RxNorm: 154710 1 Tablet(s) PO Q8H 02/24/201908/2019 Inactive ciprofloxacin 500 mg tablet RxNorm: 124835 1 Tablet(s) PO BID 02/2403/09/2019 Inactive Flagyl 500 mg tablet RxNorm: 775890 1 Tablet(s) PO Q6H 01/30/2019 Inactive ciprofloxacin 500 mg tablet RxNorm: 986107 1 Tablet(s) PO BID 01/3001/29/2019 Inactive Flagyl 500 mg tablet RxNorm: 085731 1 Tablet(s) PO Q6H 01/30/201904/2019 Inactive ciprofloxacin 500 mg tablet RxNorm: 065455 1 Tablet(s) PO BID 01/3002/05/2019 Inactive gabapentin 600 mg tablet RxNorm: 281365 TAKE 1 TABLET B Y MOUTH EVERY NIGHT AT BEDTIME 01/27/2019 04/24/2019 Inactive - First Attempt Ref: [id number] tramadol 50 mg tablet RxNorm: 367559 1 Tablet(s) PO TID as needed for pain along with two tylenol 01/08/2019 04/20/2019 Inactive fenofibrate micronized 134 mg capsule RxNorm: 956565 1 Capsule(s) PO QD Due for updated fasting labs 01/02/2019 03/30/2019 Inactive quinapril 40 mg tablet RxNorm: 518551 1 Tablet(s) PO QD 01/01/2019 Inactive Patient requests 90 days supply Protonix 40 mg tablet,delayed release RxNorm: 129150 TA KE 1 TABLET BY MOUTH TWICE A DAY 01/01/2019 03/31/2019 Inactive - First Attempt Ref: [id number] Protonix 40 mg tablet,delayed release RxNorm: 322421 TA KE 1 TABLET BY MOUTH TWICE A DAY 12/25/2018 12/31/2018 Inactive - First Attempt Ref: [id number] gabapentin 600 mg tablet RxNorm: 022170 TAKE 1 TABLET B Y MOUTH EVERY NIGHT AT BEDTIME 12/02/2018 01/26/2019 Inactive - First Attempt Ref: [id number] Protonix 40 mg tablet,delayed release RxNorm: 408475 1 Tablet(s ) PO BID 11/11/2018 12/24/2018 Inactive Protonix 40 mg tablet,delayed release RxNorm: 309655 1 Tablet(s ) PO BID 10/09/2018 11/10/2018 Inactive gabapentin 600 mg tablet RxNorm: 158286 1 Tablet(s) PO QHS 10/09/1912/01/2018 Inactive quinapril 40 mg tablet RxNorm: 842281 1 Tablet(s) PO QD 1 TABLE T(S) PO QD 08/08/2018 08/07/2018 Inactive Patient requests 9 0 days supply quinapril 40 mg tablet RxNorm: 621360 1 Tablet(s) PO QD 08/08/2018 Inactive Patient requests 90 days supply meloxicam 15 mg tablet RxNorm: 152159 1 Tablet(s) PO QD 08/08/2018 Inactive gabapentin 300 mg capsule RxNorm: 098268 1 CAPSULE(S) P O QHS DUE FOR WELLNESS VISIT 08/07/2018 10/08/2018 Inactive due for followup meloxicam 15 mg tablet RxNorm: 949261 Tablet(s) 1 TABLET(S) PO QD 1 10/07/2017 08/07/2018 Inactive fenofibrate micronized 134 mg capsule RxNorm: 535912 1 Capsule(s) PO QD Needs updated fasting labs!!!!!! 07/08/2018 07/07/2018 Inactive fenofibrate micronized 134 mg capsule RxNorm: 657329 1 Capsule( s) PO QD 07/08/2018 01/01/2019 Inactive fenofibrate micronized 134 mg capsule RxNorm: 695522 1 Capsule(s) PO QD Needs updated fasting labs!!!!!! 06/21/2018 07/08/2018 Inactive Medrol (Daniel) 4 mg tablets in a dose pack RxNorm: 035444 Tablet(s) PO As Directed 05/06/2018 05/05/2018 Inactive Medrol (Daniel) 4 mg tablets in a dose pack RxNorm: 295520 Tablet(s) PO As Directed 05/06/2018 08/07/2018 Inactive quinapril 40 mg tablet RxNorm: 362841 1 TABLET(S) PO QD 05/02/2018 Inactive Patient requests 90 days supply fenofibrate micronized 134 mg capsule RxNorm: 783862 1 Capsule(s) PO QD Needs updated fasting labs 04/29/2018 05/28/2018 Inactive Move Free Joint Health 750 mg-100 mg-1.65 mg-108 mg tablet R xNorm: 1 Tablet(s) PO QD 02/12/2018 03/13/2018 Inactive fenofibrate micronized 134 mg capsule RxNorm: 679285 Ca psule(s) 1 CAPSULE(S) PO QD 01/29/2018 06/21/2018 Inactive quinapril 40 mg tablet RxNorm: 021013 1 TABLET(S) PO QD 11/26/2017 Inactive Patient requests 90 days supply fenofibrate micronized 134 mg capsule RxNorm: 047061 1 CAPSULE( S) PO QD 11/06/2017 01/29/2018 Inactive gabapentin 300 mg capsule RxNorm: 842188 1 CAPSULE(S) P O QHS DUE FOR WELLNESS VISIT 10/24/2017 07/20/2018 Inactive due for followup meloxicam 15 mg tablet RxNorm: 769810 1 TABLET(S) PO QD 10/24/2017 Inactive quinapril 40 mg tablet RxNorm: 087837 1 Tablet(s) PO QD 10/24/2017 Inactive fenofibrate micronized 134 mg capsule RxNorm: 208977 1 Capsule( s) PO QD 08/22/2017 11/05/2017 Inactive fenofibrate micronized 134 mg capsule RxNorm: 156984 1 Capsule( s) PO QD 08/22/2017 08/21/2017 Inactive quinapril 20 mg tablet RxNorm: 680164 1 Tablet(s) PO QD 08/13/2017 Inactive gabapentin 300 mg capsule RxNorm: 309052 1 Capsule(s) P O QHS Due for wellness visit 08/06/2017 10/23/2017 Inactive due for followup gabapentin 300 mg capsule RxNorm: 695728 1 Capsule(s) P O QHS Due for wellness visit 08/02/2017 08/05/2017 Inactive due for followup meloxicam 15 mg tablet RxNorm: 865792 1 Tablet(s) PO QD 08/01/2017 Inactive gabapentin 300 mg capsule RxNorm: 545373 1 Capsule(s) P O QHS Due for wellness visit 08/01/2017 08/01/2017 Inactive due for followup gabapentin 300 mg capsule RxNorm: 815381 1 Capsule(s) P O QHS Due for wellness visit 08/01/2017 08/02/2017 Inactive gabapentin 300 mg capsule RxNorm: 905799 1 Capsule(s) PO QHS 201605/12/2017 Inactive quinapril 10 mg tablet RxNorm: 081106 1 Tablet(s) PO QD replace s quinapril hct 02/12/2017 08/12/2017 Inactive meloxicam 15 mg tablet RxNorm: 796419 1 Tablet(s) PO QD 02/05/2017 Inactive quinapril 10 mg tablet RxNorm: 820199 1 Tablet(s) PO QD replace s quinapril hct 11/16/2016 02/12/2017 Inactive gabapentin 300 mg capsule RxNorm: 962037 1 Capsule(s) PO QHS 201602/12/2017 Inactive quinapril 10 mg tablet RxNorm: 855153 1 Tablet(s) PO QD replace s quinapril hct 10/16/2016 11/15/2016 Inactive gabapentin 300 mg capsule RxNorm: 566677 1 Capsule(s) PO QHS 201511/15/2016 Inactive quinapril 10 mg tablet RxNorm: 880208 1 Tablet(s) PO QD replace s quinapril hct 07/19/2016 10/15/2016 Inactive meloxicam 15 mg tablet RxNorm: 578745 1 Tablet(s) PO QD 07/10/2016 Inactive meloxicam 15 mg tablet RxNorm: 230152 TAKE ONE TABLET BY MOUTH LUKE Y 07/10/2016 07/09/2016 Inactive meloxicam 15 mg tablet RxNorm: 643986 1 Tablet(s) PO QD 07/06/2016 Inactive meloxicam 15 mg tablet RxNorm: 001837 1 Tablet(s) PO QD 06/09/2016 Inactive Multivitamin & Mineral Formula tablet RxNorm: 1 Tablet(s) PO Q D 06/02/2016 07/01/2016 Inactive tamsulosin 0.4 mg capsule RxNorm: 380892 1 Capsule(s) PO QHS 201507/01/2016 Inactive Move Free Joint Health 750 mg-100 mg-1.65 mg-108 mg tablet R xNorm: 1 Tablet(s) PO QD 06/02/2016 07/01/2016 Inactive gabapentin 300 mg capsule RxNorm: 748411 1 Capsule(s) PO QHS 201508/27/2016 Inactive gabapentin 300 mg capsule RxNorm: 845722 Capsule(s) ALFONZO E ONE CAPSULE BY MOUTH AT BEDTIME 02/28/2016 05/27/2016 Inactive quinapril 10 mg-hydrochlorothiazide 12.5 mg tablet RxNorm: 3 19596 Tablet(s) TAKE ONE TABLET BY MOUTH EVERY MORNING 01/14/2016 07/18/2016 Inactive gabapentin 300 mg capsule RxNorm: 060375 TAKE ONE CAPSULE BY [facility] AT BEDTIME 12/28/2015 02/27/2016 Inactive Urecholine 25 mg tablet RxNorm: 375059 1 Tablet(s) PO TID 11/09/2015 07/18/2016 Inactive phenazopyridine 100 mg tablet RxNorm: 7181532 1 Tablet(s ) PO TID as needed for bladder spasms. 11/08/2015 11/08/2015 Inactive quinapril 10 mg-hydrochlorothiazide 12.5 mg tablet RxNorm: 3 23448 TAKE ONE TABLET BY MOUTH EVERY MORNING 10/15/2015 01/13/2016 Inactive gabapentin 300 mg capsule RxNorm: 153603 1 Tablet(s) PO QD TAKE ONE CAPSULE BY MOUTH EVERY NIGHT AT BEDTIME 09/23/2015 12/21/2015 Inactive quinapril 10 mg-hydrochlorothiazide 12.5 mg tablet RxNorm: 3 10342 Tablet(s) TAKE ONE TABLET BY MOUTH EVERY MORNING 07/14/2015 10/14/2015 Inactive gabapentin 300 mg capsule RxNorm: 856629 1 Tablet(s) PO QD TAKE ONE CAPSULE BY MOUTH EVERY NIGHT AT BEDTIME 06/25/2015 09/23/2015 Inactive prednisone 20 mg tablet RxNorm: 389338 1 Tablet(s) PO QD 06/14/2015 0 06/20/2015 Inactive cephalexin 500 mg capsule RxNorm: 427776 1 Capsule(s) PO BID 201405/27/2015 Inactive mupirocin 2 % topical ointment RxNorm: 689670 TOP BID 05/18/2015 0 06/13/2015 Inactive quinapril 10 mg-hydrochlorothiazide 12.5 mg tablet RxNorm: 3 60209 Tablet(s) TAKE ONE TABLET BY MOUTH EVERY MORNING 04/06/2015 07/14/2015 Inactive gabapentin 300 mg capsule RxNorm: 616625 1 Capsule(s) PO QHS 201404/01/2015 Inactive [SAVINGS FOR NON-COVERED LILIANA GS -- BIN:751006, PCN: ASPROD1, Group: XXXXX, ID# [id number], Questions: . THIS IS NOT INSURANCE.] gabapentin 300 mg capsule RxNorm: 663509 1 Capsule(s) PO QHS 201406/25/2015 Inactive [SAVINGS FOR NON-COVERED LILIANA GS -- BIN:232086, PCN: ASPROD1, Group: XXXXX, ID# [id number], Questions: . THIS IS NOT INSURANCE.] quinapril 10 mg-hydrochlorothiazide 12.5 mg tablet RxNorm: 3 78297 TAKE ONE TABLET BY MOUTH EVERY MORNING 12/11/2014 04/05/2015 Inactive gabapentin 300 mg capsule RxNorm: 667675 1 Capsule(s) PO QHS 201404/02/2015 Inactive [SAVINGS FOR NON-COVERED LILIANA GS -- BIN:203132, PCN: ASPROD1, Group: XXXXX, ID# [id number], Questions: . THIS IS NOT INSURANCE.] cyclobenzaprine 10 mg tablet RxNorm: 899047 1 Tablet(s) PO TID as needed for muscle spasm for muscle spasm 12/02/2014 02/21/2015 Inactive [S AVINGS FOR NON- COVERED DRUGS -- BIN:897814, PCN: ASPROD1, Group: XXXXX, ID# [id number], Questions: . THIS IS NOT INSURANCE.] gabapentin 100 mg capsule RxNorm: 881073 1 Capsule(s) PO QHS 201412/01/2014 Inactive [SAVINGS FOR NON-COVERED LILIANA GS -- BIN:604752, PCN: ASPROD1, Group: XXXXX, ID# [id number], Questions: . THIS IS NOT INSURANCE.] ibuprofen 800 mg tablet RxNorm: 759527 1 Tablet(s) PO T ID as needed low back pain 11/11/2014 11/23/2014 Inactive [SAVINGS FOR NON -COVERED DRUGS -- BIN:957120, PCN: ASPROD1, Group: XXXXX, ID# [id number], Questions: . THIS IS NOT INSURANCE.] ibuprofen 800 mg tablet RxNorm: 811657 1 Tablet(s) PO T ID as needed low back pain 11/09/2014 11/10/2014 Inactive [SAVINGS FOR NON -COVERED DRUGS -- BIN:654183, PCN: ASPROD1, Group: XXXXX, ID# [id number], Questions: . THIS IS NOT INSURANCE.] Zorvolex 35 mg capsule RxNorm: 0561778 1 Tablet(s) PO TID 08/27/2014 10/01/2014 Inactive [SAVINGS FOR UNINSURED PATIENTS -- BIN:0 55246, PCN: ASPROD1, Group: AME08, ID# [id number], Process claim through [email or web address], for questions: . THIS IS NOT INSURANCE.] quinapril 10 mg-hydrochlorothiazide 12.5 mg tablet RxNorm: 3 28009 1 Tablet(s) PO QAM 08/27/2014 11/24/2014 Inactive Lidoderm 5 % (700 mg/patch) adhesive patch RxNorm: 1913209 Application TOP for 12hours then off for pain 08/18/2014 02/21/2015 Inactive [SAVIN GS FOR UNINSURED PATIENTS -- BIN:296891, PCN: ASPROD1, Group: AME08, ID# [id number], Process claim through [email or web address], for questions: . THIS IS NOT INSURANCE.] Zorvolex 35 mg capsule RxNorm: 8058387 1 Tablet(s) PO TID 08/13/2014 08/12/2014 Inactive Zorvolex 35 mg capsule RxNorm: 1113047 1 Tablet(s) PO TID 08/13/2014 08/24/2014 Inactive [SAVINGS FOR UNINSURED PATIENTS -- BIN:0 17649, PCN: ASPROD1, Group: AME08, ID# [id number], Process claim through [email or web address], for questions: . THIS IS NOT INSURANCE.] Aspirin Child 81 mg chewable tablet RxNorm: 447058 1 Tablet(s) PO QD No Start Date Active ibuprofen 800 mg tablet RxNorm: 394655 1 Tablet(s) PO T ID as needed low back pain No Start Date 11/08/2014 Inactive cyclobenzaprine 10 mg tablet RxNorm: 205212 1 Tablet(s) PO TID No S tart Date 08/12/2017 Inactive garlic 1,000 mg capsule RxNorm: 279732 1 Capsule(s) PO QD No Start Date 04/22/2019 Inactive tramadol 50 mg tablet RxNorm: 804523 1 Tablet(s) PO Q4-6H as ne eded for pain No Start Date 02/21/2015 Inactive tramadol 50 mg tablet RxNorm: 504172 1 Tablet(s) PO TID as needed for pain along with two tylenol No Start Date 01/07/2019 Inactive krill oil oral RxNorm: 26468 oral No Start Date 11/11/2018 Inacti ve Vitamin D3 2,000 unit tablet RxNorm: 777988 1 Tablet(s) PO QD No St art Date 08/12/2019 Inactive gabapentin 100 mg tablet RxNorm: 279222 1 Tablet(s) PO QD No Start Date 11/10/2014 Inactive Zofran 4 mg tablet RxNorm: 346749 1 Tablet(s) PO Q6H as needed No S tart Date 08/12/2019 Inactive Elimite 5 % topical cream RxNorm: 111523 1 Application TOP QHS apply head to toe and was off in morning No Start Date 05/18/2019 Inactive gabapentin 100 mg capsule RxNorm: 363312 1 Capsule(s) PO QHS No Sta rt Date 11/10/2014 Inactive aspirin 325 mg tablet RxNorm: 416145 2 Tablet(s) PO QD No Start Date 08/17/2014 Inactive Fish Oil 1,000 mg capsule RxNorm: 1 Capsule(s) PO QD No Start Date 10/08/2018 Inactive quinapril 10 mg-hydrochlorothiazide 12.5 mg tablet RxNorm: 3 96476 1 Tablet(s) PO QAM No Start Date 08/26/2014 Inactive quinapril 40 mg tablet RxNorm: 326931 1 Tablet(s) PO QD No Start Da te 10/23/2017 Inactive Medrol (Daniel) 4 mg tablets in a dose pack RxNorm: 027163 Tablet(s) PO As Directed No Start Date 05/05/2018 Inactive Urecholine 25 mg tablet RxNorm: 722074 1 Tablet(s) PO TID No Start Date 11/08/2015 Inactive cyclobenzaprine 10 mg tablet RxNorm: 609815 1/2-1 Table t(s) PO TID as needed for muscle spasm No Start Date 12/01/2014 Inactive tamsulosin 0.4 mg capsule RxNorm: 819823 2 Capsule(s) PO QPM No Sta rt Date 08/12/2019 Inactive hydrocodone 5 mg-acetaminophen 325 mg tablet RxNorm: 184477 1 -2 Tablet(s) PO Q6H as needed No Start Date 05/20/2019 Inactive loratadine 10 mg tablet RxNorm: 091931 1 Tablet(s) PO QD No Start D ate 07/07/2014 Inactive Medication Administered No Medication Administered data Immunizations Vaccine Codes Date Status Influenza CVX: 141 07/21/2019 Results Observation Observation Code Item Item Code Result Date S ervice Location CULTURE, AEROBIC BACTERIA 61591 CULTURE, AEROBIC BACTERIA SEE NOTE 10/30/2019 [facility] Seun Becerra [address] [place] [address] CULTURE, URINE, ROUTINE 395 CULTURE SEE NOTE 1 10/15/2018 [facility] Seun Becerra [address] [place] [address] CULTURE, URINE, ROUTINE 395 CULTURE, URINE, ROUTINE SEE NOTE 08/15/2019 [facility] [email or web address] [address] CBC (H/H, RBC, INDICES, WBC, PLT) 74287 WHITE BLOOD CELL COU NT 7.9 Thousand/uL 08/14/[address] [address] CBC (H/H, RBC, INDICES, WBC, PLT) 80026 RED BLOOD CELL COUNT 4.93 Million/uL 08/14/2019 [facility] [email or web address] [address] CBC (H/H, RBC, INDICES, WBC, PLT) 08721 HEMOGLOBIN 15 .4 g/dL 08/14/[address] [facility] [address] CBC (H/H, RBC, INDICES, WBC, PLT) 83599 HEMATOCRIT 45 .0 % 08/14/[address] [facility] [address] [address] CBC (H/H, RBC, INDICES, WBC, PLT) 89551 MCV 91 .3 fL 08/14/2019 [facility] [email or web address] [address] CBC (H/H, RBC, INDICES, WBC, PLT) 77608 MCH 31 .2 pg 08/14/2019 [facility] [email or web address] [address] CBC (H/H, RBC, INDICES, WBC, PLT) 19721 MCHC 34 .2 g/dL 08/14/[address] [address] CBC (H/H, RBC, INDICES, WBC, PLT) 12288 RDW 12 .7 % 08/14/2019 [facility] [address] CBC (H/H, RBC, INDICES, WBC, PLT) 92136 PLATELET COUNT 214 Thousand/uL 08/14/2019 [facility] [email or web address] [address] CBC (H/H, RBC, INDICES, WBC, PLT) 25502 MPV 11 .5 fL 08/14/2019 [facility] [email or web address] [address] COMPREHENSIVE METABOLIC PANEL 54536 Glucose 113 mg /dL 08/14/2019 [facility] [address] [address] COMPREHENSIVE METABOLIC PANEL 87016 UREA NITROGEN (BUN) 16 mg/dL 08/14/2019 [facility] [address] [address] COMPREHENSIVE METABOLIC PANEL 13556 CREATININE 0.86 m g/dL 08/14/2019 [facility] [address] [address] COMPREHENSIVE METABOLIC PANEL 31622 eGFR NON-AFR. ANGUILLAN 92 mL/min/1.73m2 08/14/2019 [facility] [address] [address] COMPREHENSIVE METABOLIC PANEL 90447 eGFR 106 mL/min/1.73m2 08/14/2019 [facility] [address] [address] COMPREHENSIVE METABOLIC PANEL 76695 BUN/CREATININE RATIO NOT APPLICABLE (calc) 08/14/2019 [facility] [address] [place] [address] COMPREHENSIVE METABOLIC PANEL 54856 SODIUM 141 mm ol/L 08/14/2019 [facility] [address] [address] COMPREHENSIVE METABOLIC PANEL 01490 POTASSIUM 4.1 mm ol/L 08/14/2019 [facility] [address] [address] COMPREHENSIVE METABOLIC PANEL 69674 CHLORIDE 102 mm ol/L 08/14/2019 [facility] [address] [address] COMPREHENSIVE METABOLIC PANEL 04937 CARBON DIOXIDE 28 mmol/L 08/14/2019 [facility] [address] [address] COMPREHENSIVE METABOLIC PANEL 28699 CALCIUM 9.7 mg /dL 08/14/2019 [facility] [address] [address] COMPREHENSIVE METABOLIC PANEL 82410 PROTEIN, TOTAL 6. 7 g/dL 08/14/2019 [facility] [address] [address] COMPREHENSIVE METABOLIC PANEL 99221 ALBUMIN 4.3 g/ dL 08/14/2019 [facility] [address] [address] COMPREHENSIVE METABOLIC PANEL 76557 GLOBULIN 2.4 g/ dL(calc) 08/14/[address] [facility] [address] COMPREHENSIVE METABOLIC PANEL 07838 ALBUMIN/GLOBULIN RATIO 1.8 (calc) 08/14/[address] [facility] [address] COMPREHENSIVE METABOLIC PANEL 94174 BILIRUBIN, TOTAL 1.0 mg/dL 08/14/[address] [address] COMPREHENSIVE METABOLIC PANEL 86842 ALKALINE PHOSPHATASE 56 U/L 08/14/2019 [facility] [address] COMPREHENSIVE METABOLIC PANEL 96042 AST 18 U/L 08/14/[address] [facility] [address] COMPREHENSIVE METABOLIC PANEL 63065 ALT 28 U/L 08/14/[address] [facility] [address] MAGNESIUM 70988 MAGNESIUM 2.0 mg/dL 06/06/2019 [facility] [address] COMPREHENSIVE METABOLIC PANEL 83302 Glucose 106 mg /dL 06/06/[address] [facility] [address] COMPREHENSIVE METABOLIC PANEL 84131 UREA NITROGEN (BUN) 22 mg/dL 06/06/[address] [facility] [address] COMPREHENSIVE METABOLIC PANEL 87469 CREATININE 1.29 m g/dL 06/06/[address] [facility] [address] COMPREHENSIVE METABOLIC PANEL 09224 eGFR NON-AFR. ANGUILLAN 58 mL/min/1.73m2 06/06/2019 [facility] [address] COMPREHENSIVE METABOLIC PANEL 00344 eGFR 67 mL/min/1.73m2 06/06/2019 [facility] [address] COMPREHENSIVE METABOLIC PANEL 25225 BUN/CREATININE RATIO 17 (calc) 06/06/2019 [facility] [address] COMPREHENSIVE METABOLIC PANEL 14298 SODIUM 138 mm ol/L 06/06/2019 [facility] [address] COMPREHENSIVE METABOLIC PANEL 46556 POTASSIUM 4.2 mm ol/L 06/06/[address] [facility] [address] COMPREHENSIVE METABOLIC PANEL 45465 CHLORIDE 101 mm ol/L 06/06/2019 [facility] [[email or web address] [address] COMPREHENSIVE METABOLIC PANEL 57582 CARBON DIOXIDE 29 mmol/L 06/06/[address] [facility] [address] COMPREHENSIVE METABOLIC PANEL 98014 CALCIUM 9.6 mg /dL 06/06/[address] [facility] [address] COMPREHENSIVE METABOLIC PANEL 11863 PROTEIN, TOTAL 6. 9 g/dL 06/06/2019 [facility] [[email or web address] [address] COMPREHENSIVE METABOLIC PANEL 52469 ALBUMIN 4.4 g/ dL 06/06/[address] [facility] [address] COMPREHENSIVE METABOLIC PANEL 14270 GLOBULIN 2.5 g/ dL(calc) 06/06/[address] [facility] [address] COMPREHENSIVE METABOLIC PANEL 75991 ALBUMIN/GLOBULIN RATIO 1.8 (calc) 06/06/[address] [facility] [address] COMPREHENSIVE METABOLIC PANEL 90877 BILIRUBIN, TOTAL 0.7 mg/dL 06/06/[address] [facility] [address] COMPREHENSIVE METABOLIC PANEL 99836 ALKALINE PHOSPHATASE 45 U/L 06/06/[address] [facility] [address] COMPREHENSIVE METABOLIC PANEL 59536 AST 21 U/L 06/06/2019 [facility] [[email or web address] [address] COMPREHENSIVE METABOLIC PANEL 16151 ALT 34 U/L 06/06/[address] [facility] [address] CULTURE, URINE, ROUTINE 395 CULTURE, URINE, ROUTINE SEE NOTE 04/23/2019 [facility]ostics[facility] Becerra [address] [place] [phone] CULTURE, URINE, ROUTINE 395 CULTURE SEE NOTE 0 04/23/2019 [facility] [address] [address] EXTRA 1014 EXTRA TUBE RECEIVED 04/22 [facility] [address] [address] EXTRA 1014 SPECIMEN TYPE RECEIVED: LAV 0 04/22/2019 [facility] [address] [address] COMPREHENSIVE METABOLIC PANEL 98070 Glucose 94 mg/ dL 04/22/[address] [facility] [address] COMPREHENSIVE METABOLIC PANEL 52085 UREA NITROGEN (BUN) 20 mg/dL 04/22/2019 [facility]osticsChiragStallings [address] [address] COMPREHENSIVE METABOLIC PANEL 80756 CREATININE 1.30 m g/dL 04/22/2019 [facility] [address] [address] COMPREHENSIVE METABOLIC PANEL 15439 eGFR NON-AFR. ANGUILLAN 58 mL/min/1.73m2 04/22/2019 [facility]Ch[facility] [address] [address] COMPREHENSIVE METABOLIC PANEL 58961 eGFR 67 mL/min/1.73m2 04/22/2019 [facility]osticsCh[facility]all[facility] [address] [address] COMPREHENSIVE METABOLIC PANEL 83508 BUN/CREATININE RATIO 15 (calc) 04/22/2019 [facility] [address] [address] COMPREHENSIVE METABOLIC PANEL 32387 SODIUM 139 mm ol/L 04/22/2019 [facility] [address] [address] COMPREHENSIVE METABOLIC PANEL 30287 POTASSIUM 4.2 mm ol/L 04/22/2019 [facility] [address] [address] COMPREHENSIVE METABOLIC PANEL 81788 CHLORIDE 104 mm ol/L 04/22/2019 [facility]osticsChiragSt[facility] [address] [address] COMPREHENSIVE METABOLIC PANEL 49043 CARBON DIOXIDE 27 mmol/L 04/22/[address] [facility] [address] COMPREHENSIVE METABOLIC PANEL 79130 CALCIUM 9.9 mg /dL 04/22/[address] [address] COMPREHENSIVE METABOLIC PANEL 66989 PROTEIN, TOTAL 7. 1 g/dL 04/22/[address] [address] COMPREHENSIVE METABOLIC PANEL 61235 ALBUMIN 4.6 g/ dL 04/22/[address] [address] COMPREHENSIVE METABOLIC PANEL 55570 GLOBULIN 2.5 g/ dL(calc) 04/22/2019 [facility] [[email or web address]] Diagn[facility] [address] COMPREHENSIVE METABOLIC PANEL 49953 ALBUMIN/GLOBULIN RATIO 1.8 (calc) 04/22/[address] [address] COMPREHENSIVE METABOLIC PANEL 81020 BILIRUBIN, TOTAL 0.4 mg/dL 04/22/[address] [address] COMPREHENSIVE METABOLIC PANEL 80323 ALKALINE PHOSPHATASE 53 U/L 04/22/[address] [address] COMPREHENSIVE METABOLIC PANEL 48771 AST 21 U/L 04/22/[address] [address] COMPREHENSIVE METABOLIC PANEL 21824 ALT 34 U/L 04/22/[address] [address] CULTURE, URINE, ROUTINE 395 CULTURE, URINE, ROUTINE SEE NOTE 01/31/[address] [address] Procedures Procedure Codes Date CULTURE, THROAT CPT-4: 79814 12/30/2019 CULTURE, AEROBIC BACTERIA CPT-4: 63449 10/27/2019 URINALYSIS NONAUTO W/O SCOPE CPT-4: 79885 10/02/2019 URINE CULTURE/ COLONY COUNT CPT-4: 51059 10/02/2019 ROUTINE VENIPUNCTURE CPT-4: 33623 08/13/2019 URINALYSIS NONAUTO W/O SCOPE CPT-4: 47026 08/13/2019 CULTURE, URINE, ROUTINE CPT-4: 395 08/13/2019 COMPREHENSIVE METABOLIC PANEL CPT-4: 90259 08/13/2019 CBC (H/H, RBC, INDICES, WBC, PLT) CPT-4: 95122 2018 COMPREHENSIVE METABOLIC PANEL CPT-4: 35447 06/05/2019 MAGNESIUM CPT-4: 13866 06/05/2019 DEXAMETHASONE SODIUM PHOS CPT-4: J1100 05/21/2019 THER/PROPH/DIAG INJ SC/IM CPT-4: 56284 05/21/2019 TRIAMCINOLONE ACET INJ NOS CPT-4: J3301 05/21/2019 ROUTINE VENIPUNCTURE CPT-4: 48599 04/21/2019 COMPREHENSIVE METABOLIC PANEL CPT-4: 41660 04/21/2019 EXTRA CPT-4: 1014 04/21/2019 CULTURE, URINE, ROUTINE CPT-4: 395 04/21/2019 URINALYSIS NONAUTO W/O SCOPE CPT-4: 89911 04/21/2019 URINALYSIS NONAUTO W/O SCOPE CPT-4: 56820 01/29/2019 CULTURE, URINE, ROUTINE CPT-4: 395 01/29/2019 DRAIN/INJECT JOINT/BURSA CPT-4: 96114 02/19/2018 TRIAMCINOLONE ACET INJ NOS CPT-4: J3301 02/19/2018 DEXAMETHASONE SODIUM PHOS CPT-4: J1100 02/19/2018 THER/PROPH/DIAG INJ SC/IM CPT-4: 32381 02/12/2018 TRIAMCINOLONE ACET INJ NOS CPT-4: J3301 02/12/2018 DEXAMETHASONE SODIUM PHOS CPT-4: J1100 02/12/2018 CEFTRIAXONE SODIUM INJECTION CPT-4: J0696 12/03/2017 THER/PROPH/DIAG INJ SC/IM CPT-4: 16924 12/03/2017 THER/PROPH/DIAG INJ SC/IM CPT-4: 74814 12/03/2017 METHYLPREDNISOLONE INJECTION CPT-4: J2930 12/03/2017 URINALYSIS NONAUTO W/O SCOPE CPT-4: 33540 08/13/2017 STREP A ASSAY W/OPTIC CPT-4: 03325 02/13/2017 DESTRUCT PREMALG LESION (Cryosurgery) CPT-4: 27038 Vital Signs Date Vital 12/30/2019 Temperature: 36.9 [...] 1: 128/78 Code: 8480-6 BMI: 36.0 Code: 18787-3 Heart Rate 1: 68 bpm Height: 5'7" [...] 1: 138/86 Code: 8480-6 BMI: 35.6 Code: 31398-2 Heart Rate 1: 68 bpm Height: 5'7" SpO2: 95% Temperature: 36.6 (C) / 97.8 (F) Weight: 227 lbs 12/03/2017 Blood Pressure 1: 134/84 Code: 8480-6 BMI: 34.3 Code: 26161-0 Heart Rate 1: 68 bpm Height: 5'7" Respiratory Rate: 20 bpm SpO2: 96% Tempera ture: 35.9 (C) / 96.6 (F) Weight: 219 lbs 09/11/2017 Blood Pressure 1: 140/86 Code: 8480-6 BMI: 34.9 Code: 30993-0 Heart Rate 1: 84 bpm Height: 5'7" Respiratory Rate: 20 bpm SpO2: 95% Tempera ture: 36.7 (C) / 98.1 (F) Weight: 223 lbs 08/13/2017 Blood Pressure 1: 142/94 Code: 8480-6 BMI: 34.5 Code: 74621-0 Heart Rate 1: 76 bpm Height: 5'7" Respiratory Rate: 20 bpm SpO2: 96% Tempera ture: 37.1 (C) / 98.8 (F) Weight: 220 lbs 11/17/2016 Blood Pressure 1: 118/78 Code: 8480-6 He art Rate 1: 64 bpm 07/19/2016 Blood Pressure 1: 112/58 Code: 8480-6 BMI: 31.6 Code: 04178-3 Heart Rate 1: 88 bpm Height: 5'7" Respiratory Rate: 22 bpm SpO2: 98% Tempera ture: 36.3 (C) / 97.4 (F) Weight: 202 lbs 06/09/2016 Blood Pressure 1: 138/84 Code: 8480-6 BMI: 32.1 Code: 24109-5 Heart Rate 1: 58 bpm Height: 5'7" Respiratory Rate: 20 bpm SpO2: 97% Tempera ture: 36.6 (C) / 97.8 (F) Weight: 205 lbs 11/08/2015 Blood Pressure 1: 142/80 Code: 8480-6 BMI: 32.4 Code: 92630-1 Heart Rate 1: 76 bpm Height: 5'7" Respiratory Rate: 20 bpm Temperature: 36 .6 (C) / 97.9 (F) Weight: 207 lbs 06/14/2015 Blood Pressure 1: 126/80 Code: 8480-6 Heart Rate 1: 84 bpm Respiratory Rate: 20 bpm Temperature: 36.8 (C) / 98.2 (F) Weight: 206 lbs 05/18/2015 Blood Pressure 1: 124/80 Code: 8480-6 BMI: 32.3 Code: 80549-6 Heart Rate 1: 68 bpm Height: 5'7" Respiratory Rate: 20 bpm Temperature: 36 .4 (C) / 97.6 (F) Weight: 206 lbs 02/22/2015 Blood Pressure 1: 126/78 Code: 8480-6 BMI: 32.1 Code: 86623-9 Heart Rate 1: 76 bpm Height: 5'7" Respiratory Rate: 20 bpm Temperature: 36 .6 (C) / 97.9 (F) Weight: 205 lbs 12/02/2014 Blood Pressure 1: 124/80 Code: 8480-6 BMI: 32.7 Code: 30723-2 Heart Rate 1: 70 bpm Height: 5'7" Respiratory Rate: 18 bpm Temperature: 36 .6 (C) / 97.9 (F) Weight: 209 lbs 08/18/2014 Blood Pressure 1: 132/94 Code: 8480-6 BMI: 34.5 Code: 77960-8 Heart Rate 1: 84 bpm Height: 5'6" Respiratory Rate: 20 bpm Temperature: 36 .6 (C) / 97.9 (F) Weight: 217 lbs 07/08/2014 Blood Pressure 1: 142/88 Code: 8480-6 BMI: 34.3 Code: 57136-8 Heart Rate 1: 72 bpm Height: 5'6" [...] Visit Encounters Encounter Performer Location Codes Date ([id number]) NURSE/OUTPATIENT VISIT EST Diagnosis: Sore throat[ICD10: J02.9] Sapna HASSAN [facility] CPT-4: 10044 12/30/2019 ([id number]) OFFICE/OUTPATIENT VISIT EST Diagnosis: Allergic rhinitis[ICD10: J30.9] Diagnosis: Postnasal drip[ICD10: R09.82] [facility]PT[facility]: 38978 12/19/2019 ([id number]) NO CHARGE Diagnosis: Infected sebaceous cyst[ICD10: L72.3] Sapna REDMOND SAmarjit PROCTORER [facility] CPT-4: 58654 11/03/2019 ([id number]) OFFICE/OUTPATIENT VISIT EST Diagnosis: Disorder of the skin and subcutaneous tissue, unspecified[ICD10: L98.9] Diagnosis: Infected sebaceous cyst[ICD10: L72.3] Diagnosis: Local infection of the skin and subcutaneous tissue, unspecified[ICD10: L08.9] Lashell CORRAL SAmarjit QUINTONNDER [facility] CPT-4 : 42542 10/27/2019 ([id number]) OFFICE/OUTPATIENT VISIT EST Diagnosis: Suprapubic abdominal pain[ICD10: R10.2] Diagnosis: Aortic regurgitation[ICD10: I35.1] Sapna GAUTAM SAmarjit COATSNDER [facility] CPT-4: 23795 10/02/2019 ([id number]) OFFICE/OUTPATIENT VISIT EST Diagnosis: Chest pain[ICD10: R07.9] Lashell BILLINGS [facility] CPT-4: 41555 08/25/2019 ([id number]) OFFICE/OUTPATIENT VISIT EST Diagnosis: Thoracic back pain[ICD10: M54.6] Diagnosis: Disorder of kidney and ureter, unspecified[ICD10: N28.9] Diagnosis: Personal history of nicotine dependence[ICD10: Z87.891] 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 QUINTONND EDVIN [employer] [facility] CPT-4: 07113 07/03/2019 ([id number]) OFFICE/OUTPATIENT VISIT EST Diagnosis: Cramp and spasm[ICD10: R25.2] Diagnosis: Disorder of kidney and ureter, unspecified[ICD10: N28.9] Lashell BRUNSONLINE JefryAmarjit HITESHER [employer] [facility] CPT-4: 69664 06/05/2019 ([id number]) OFFICE/OUTPATIENT VISIT EST Diagnosis: Other pruritus[ICD10: L29.8] Diagnosis: Pain in right knee[ICD10: M25.561] Lashell SHAHTIFFANIE GAUTAM S. QUINTONNDEDVIN [employer] [facility] CPT-4: 52523 05/21/2019 ([id number]) NURSE/OUTPATIENT VISIT EST Diagnosis: Edema, unspecified[ICD10: R60.9] Sapna Quintonclaudio CORRAL S. HITESHER [employer] [facility] CPT-4: 56011 04/21/2019 ([id number]) OFFICE/OUTPATIENT VISIT EST Diagnosis: Diverticulitis of large intestine without perforation or abscess without bleeding[ICD10: K57.32] Diagnosis: Snoring[ICD10: R06.83] Diagnosis: Other constipation[ICD10: K59.09] Lashell SHAHDESIREE Chandler S. QUINTONNDER [employer] [facility] CPT-4: 95901 02/24/2019 ([id number]) OFFICE/OUTPATIENT VISIT EST Diagnosis: Diverticulitis of large intestine without perforation or abscess with bleeding[ICD10: K57.33] Nancy CORRAL Jefry. HITESHER [employer] [facility] CPT-4: 13171 02/04/2019 ([id number]) OFFICE/OUTPATIENT VISIT EST Diagnosis: Left lower quadrant pain[ICD10: R10.32] Nancy LIVE DO [facility] CPT-4: 83791 01/29/2019 OFFICE/OUTPATIENT VISIT EST Diagnosis: Dermatitis, unspecified[ICD10: L30.9] Diagnosis: Gastro-esophageal reflux disease without esophagitis[ICD10: K21.9] Diagnosis: Palpitations[ICD10: R00.2] Sapna AU G[employer]ie [employer] [facility] CPT-4: 33309 12/19/2018 ([id number]) OFFICE/OUTPATIENT VISIT EST Diagnosis: Gastro-esophageal reflux disease without esophagitis[ICD10: K21.9] Diagnosis: Dysphagia, pharyngoesophageal phase[ICD10: R13.14] Sapna LIVE DO [facility] CPT-4: 22925 11/11/2018 ([id number]) PREV VISIT EST AGE 40-64 Diagnosis: Encounter [...] disorders of digestive system[ICD10: K91.89] Lashell LIVE Génie [employer] [facility] CPT-4: 99 396 10/09/2018 ([id number]) OFFICE/OUTPATIENT VISIT EST Diagnosis: Pain in right knee[ICD10: M25.561] Diagnosis: Pain in right hip[ICD10: M25.551] Lashell LIVE DO [facility] CPT-4: 72301 02/12/2018 OFFICE/OUTPATIENT VISIT EST Diagnosis: Essential (primary) hypertension[ICD10: I10] Diagnosis: Other chest pain[ICD10: R07.89] Lashell LIVE DO [facility] CPT-4: 46563 12/03/2017 ([id number]) OFFICE/OUTPATIENT VISIT EST Diagnosis: Essential (primary) hypertension[ICD10: I10] Sapna LIVE DO [facility] CPT-4: 18887 09/11/2017 ([id number]) PREV VISIT EST AGE 40-64 Diagnosis: Encounter for general adult medical examination without abnormal findings[ICD10: Z00.00] Diagnosis: Essential (primary) hypertension[ICD10: I10] Diagnosis: Left lower quadrant pain[ICD10: R10.32] Diagnosis: Left upper quadrant pain[ICD10: R10.12] Diagnosis: Other intervertebral disc degeneration, 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] Sapna LIVE DO [facility] CPT-4: 96879 08/13/2017 ([id number]) OFFICE/OUTPATIENT VISIT EST Diagnosis: Acute pharyngitis, unspecified[ICD10: J02.9] Sapna LIVE DO [facility] CPT-4: 76170 02/13/2017 ([id number]) PREV VISIT EST AGE 40-64 Diagnosis: Encounter for general adult medical examination without abnormal findings[ICD10: Z00.00] Diagnosis: Essential (primary) hypertension[ICD10: I10] 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] Sapna LIVE DO [facility] CPT-4: 21458 07/19/2016 OFFICE/OUTPATIENT VISIT EST Diagnosis: Pain in thoracic spine[ICD10: M54.6] Diagnosis: Disorder of the skin and subcutaneous tissue, unspecified[ICD10: L98.9] Sobia Monreal SAPNA LIVE DO [facility] CPT-4: 88016 06/09/2016 OFFICE/OUTPATIENT VISIT EST Diagnosis: Retention of urine, unspecified[ICD10: R33.9] Diagnosis: Urinary tract infection, site not specified[ICD10: N39.0] Chelsie Teixeira SAPNA LIVE [employer] [facility] CPT-4: 02132 11/08/2015 ([id number]) OFFICE/OUTPATIENT VISIT EST Diagnosis: DERMATITIS NOS[ICD9: 692.9] Diagnosis: SEBACEOUS CYST[ICD9: 706.2] Sapna BOSCH DO [facility] CPT-4: 68250 06/14/2015 OFFICE/OUTPATIENT VISIT EST Diagnosis: LOCAL SKIN INFECTION[ICD9: 686.9] Diagnosis: FOLLICULITIS[ICD9: 704.8] Chelsie NoriegaAlysiaoscar HASSAN [facility] CPT-4: 37038 05/18/2015 ([id number]) OFFICE/OUTPATIENT VISIT EST Diagnosis: Constipation[ICD9: 564.00] Sapna AU [facility] CPT-4: 98373 02/22/2015 ([id number]) OFFICE/OUTPATIENT VISIT EST Diagnosis: Thoracic back pain[ICD9: 724.1] Diagnosis: Thoracic degenerative disc disease[ICD9: 722.51] Diagnosis: Scoliosis[ICD9: 737.30] Sapna PARDO [facility] CPT-4: 28709 12/02/2014 ([id number]) OFFICE/OUTPATIENT VISIT EST Diagnosis: Thoracic back pain[ICD9: 724.1] Diagnosis: ACTINIC KERATOSIS[ICD9: 702.0] Sapna LIVE [facility] CPT-4: 89205 08/18/2014 OFFICE/OUTPATIENT VISIT NEW Diagnosis: HYPERTENSION[ICD9: 401.9] Diagnosis: Thoracic back pain[ICD9: 724.1] Diagnosis: GERD[ICD9: 530.81] Diagnosis: Adrenal tumor[ICD9: 239.7] Sapna UA [facility] CPT-4: 95620 07/08/2014 ([id number]) OFFICE/OUTPATIENT VISIT NEW Diagnosis: HYPERTENSION[ICD9: 401.9] Diagnosis: GERD[ICD9: 530.81] Sapna PROCTOR [facility] CPT-4: 44009 07/08/2014 Plan of Care Planned Activity Notes Codes Status Date Visit Diagnosis Plan: Allergic rhinitis Discussion: Cl aritin 10mg po BID Call Sunday with how symptoms are doing Will also add famotodine at bedtime to cover for reflux etiology ICD-9 : 477.9 ICD-10 : J30.9 12/19/2019 Appointment: Sapna Live WPtel: [address] [place], [place] [id number] TELEMEDICINE 12/19/2019 Patient Education: famotidine- [employer] [phone] [email or web address]/getResource/[email or web address] Completed 12/19/2019 Visit Diagnosis Plan: Infected sebaceous cyst Discussi on: Sent out 1 week of doxycycline ICD-9 : 706.2 ICD-10 : L72.3 11/03/2019 Appointment: Spana Live WPtel: [phone] WOUND CARE 11/03/2019 Visit Diagnosis Plan: [...] ICD-10 : L08.9 10/27/2019 Appointment: Lashell Joe [address] [place], [place] [phone] ACUTE ILLNESS 10/27/2019 Patient Education: tramadol- [employer] [id number] [id number] [email or web address]://[email or web address]/[email or web address]/resources/getResource/[email or web address] Completed 10/27/2019 Visit Plan: Update Low Dose [...] Appointment: Sapna Live WPtel: [phone] [id number] FOLLOW UP 10/02/2019 Care Plan: Referral Order SNOMED-CT : 30 [id number] Pending 10/02/2019 Visit Diagnosis Plan: Chest pain Discussion: will star t with cxray and rib xray. discussed that could be lung, rib, muscle but will start with cxray and patient may need echo. he verbalized understanding. ICD-9 : 786.50 ICD-10 : R07.9 08/25/2019 Appointment: Lashell Joe ASCENDANT MDX [id number] ACUTE ILLNESS 08/25/2019 Visit Diagnosis Plan: Thoracic back pain Discussion: c hronic pain. will refer to dr. stallings at [place] for evaluation and treatment ICD-9 : 724.1 [...] ct of lungs to be done at [facility]. ICD-9 : V15.82 ICD-10 : [...] ICD-10 : E27.8 08/13/2019 Appointment: Lashell Joe [address] [place], [place] [id number] US FOLLOW UP 08/13/2019 Visit Diagnosis Plan: Sigmoid diverticulitis Discussio n: Bactrim/Flagyl [place] diet To ER this weekend if worsening ICD-9 : 562.11 ICD-10 : K57.32 07/03/2019 Visit Diagnosis Plan: Jock itch Discussion: Diflucan a nd topical nystatin ICD-9 : 110.3 ICD-10 : B35.6 07/03/2019 Visit Diagnosis Plan: Renal insufficiency Discussion: Labs discussed Continue off NSAIDS Hydrate Recheck Chemistry 3mos ICD-9 : 593.9 ICD-10 : N28.9 07/03/2019 Appointment: Sapna Live WPtel: [phone] [facility] FOLLOW UP 07/03/2019 Patient Education: fluconazole- [employer] [id number] Completed 07/03/2019 Patient Education: nystatin- [employer] [id number] Completed 07/03/2019 Visit Diagnosis Plan: Disorder of [...] ICD-10 : R25.2 06/05/2019 Appointment: Lashell Joe [address] [place], [place] [phone] NO SHOW - FORGIVEN 06/05/2019 Appointment: Lashell Joe [address] [place], [place] [phone] ACUTE ILLNESS 06/05/2019 Visit Diagnosis Plan: Pain [...] L29.8 05/21/2019 Appointment: David Joeysrancho Martinez [address] ACUTE ILLNESS 05/21/2019 Patient Education: hydroxyzine HCl- [employer] [id number] https://www.[email or web address]/[email or web address]/resources/getResource/61/[email or web address] Completed 05/21/2019 Appointment: Sapna Live WPtel: [address] [place] [address] 05/19/19 1645---see note put in chart today (km) CANCELED 05/19/2019 Appointment: Sapna Live WPtel: [address] [place] [address] US CANCELED 05/05/2019 Appointment: Sapna Live WPtel: [address] [place] [address] UA 04/21/2019 Visit Diagnosis Plan: Diverticulitis of [...] : K59.09 02/24/2019 Appointment: Lashell Joe [address] Hospital Follow Up 02/24/2019 Visit Diagnosis Plan: Diverticulitis of large intestine without perforation or abscess with bleeding Discussion: Continue flagyl and cipro. A dvance diet to bland. BRAT diet advised. Avoid nuts, seeds, popcorn, roughage. RTC if abdominal pain worsens or does not improve. ICD-9 : 562.13 ICD-10 : K57.33 02/04/2019 Appointment: Nancy Mendiola [facility] FOLLOW UP 02/04/2019 Visit Diagnosis Plan: Left [...] : R10.32 01/29/2019 Appointment: Nancy Mendiola [facility] ACUTE ILLNESS 01/29/2019 Care Plan: CT PELVIS [...] : K21.9 12/19/2018 Appointment: Sapna Live WPtel: [phone] [facility] ACUTE ILLNESS 12/19/2018 Visit Diagnosis Plan: Gastro-esophageal reflux disease without esophagitis Discussion: Continue protonix at 40mg daily Hold mobic No NSAIDS Hold all MVs If persists then will need EGD ICD-9 : 530.81 ICD-10 : K21.9 11/11/2018 Appointment: [facility]apna Live WPtel[phone] [facility] [facility] 11/11/2018 Visit Diagnosis Plan: Encounter for [facility] adult medical examination without abnormal findings [...] ICD-10 : K91.89 10/09/2018 Appointment: Lashell Joe [address] [place] [address] Annual Well Visit 10/09/2018 Patient Education: gabapentin- [employer] [id number] Completed 10/09/2018 Patient Education: Kegel Exercises Comple catalina 10/09/2018 Patient Education: High Blood Pressure Co mpleted 10/09/2018 Visit Diagnosis Plan: Pain in right knee Discussion: c orticosteroid injection administered as described above. patient tolerated well. instructed to rtc in 3- 4 months if needed for additional injection. ICD-9 : 719.46 ICD-10 : M25.561 02/19/2018 Appointment: Lashell Joe [address] [place], [place] [address] OFFICE SURGERY 02/19/2018 Patient Education: Patient Medication [...] ICD-10 : M25.561 02/12/2018 Appointment: Lashell Joe [address] [place] [address] ACUTE ILLNESS 02/12/2018 Patient Education: Patient Medication Summary Completed 02/12/2018 Care Plan: X-RAY EXAM OF KNEE 1 OR [address] : 20[address]-1 Pending 02/12/2018 Visit Diagnosis Plan: Essential (primary) [...] ICD-10 : R07.89 12/03/2017 Appointment: Lashell Joe [address] [place] [address] ESTABLISHED PATIENT 12/03/2017 Patient Education: Patient Medication Summary Completed 12/03/2017 Visit Diagnosis Plan: Essential (primary) hypertension Discussion: Increase quinapril to 40mg daily BP check in 1month ICD-9 : 401.9 ICD-10 : I10 09/11/2017 Appointment: Sapna Live WPtel: [address] [place] [address] FOLLOW UP 09/11/2017 Patient Education: Patient Medication Summary Completed 09/11/2017 Appointment: Sapna Live WPtel: [address] [place] [address] RESCHEDULED 08/22/2017 Visit Diagnosis Plan: Essential (primary) hypertension Discussion: Increase quinapril to 20mg daily Follow Up: 1 months ICD-9 : 401.9 ICD-10 : I10 08/13/2017 Visit Diagnosis Plan: Encounter for [facility] adult medical examination without abnormal findings Discussion: Update fasting lab ICD-9 : V70.9 ICD-10 : Z00.00 08/13/2017 Visit Diagnosis Plan: Left lower quadrant pain Discuss ion: Update colonoscopy ICD-9 : 789.04 ICD-10 : R10.32 08/13/2017 Appointment: Sapna Live WPtel: [address] [place] [address] Annual Well Visit 08/13/2017 Patient Education: Patient Medication Summary Completed 08/13/2017 Appointment: Sapna Live WPtel: [phone] [facility] THROAT SWAB 02/13/2017 Patient Education: Patient Medication Summary Completed 02/13/2017 Appointment: Sapna Live WPtel: [phone] [id number] BP CHECK 11/17/2016 Patient Education: Patient Medication Summary Completed 11/17/2016 Visit Plan: Due for colonoscopy in 2018 Had shingles shot and flu shot Change quinapril hct to plain quinapril and see if muscles twitches improve Fwup with Dr. Braga Lab discussed Discussed diet/exercise at length Check CT abdomen Recheck 3mos 07/19/2016 Appointment: Sapna Live WPtel: [phone] [id number] 07/18 confirmed`sl PHYSICAL 07/19/2016 Patient Education: [...] convenience 06/09/2016 Appointment: Sobia Monreal WPtel: [phone] [facility] ACUTE ILLNESS 06/09/2016 Patient Education: Patient Medication Summary Completed 06/09/2016 Referral: Demario Braga WPtel: [phone] [id number] [place] Referral Initiated 11/12/2015 Visit Plan: Continue indwelling catheter until follow-up with Dr. Omi Continue Bactrim and Cipro Pyridium TID for Bladder spasms 11/08/2015 Appointment: Chelsie Teixeira WPtel: [address] [place] [address] ER Follow UP 11/08/2015 Patient Education: Patient Medication Summary Completed 11/08/2015 Referral: Abdiel Tucker WPtel: [phone] Referral Initiated 06/21/2015 Visit Plan: Prednisone 20mg daily for 1w douglas See surgery of cyst removal 06/14/2015 Appointment: Sapna Live WPtel: [address] [place], [place] [id number] 06/11 cn 06/14 [facility] FOLLOW UP 2014 Patient Education: Patient Medication Summary Completed 06/14/2015 Visit Plan: Warm moist compresses to Lef t shoulder lesion and apply topical Mupirocin twice daily Complete Cephalexin x 7 days as directed Resume Culturelle daily 05/18/2015 Appointment: Chelsie Teixeira WPtel: [address] [place] [address] ACUTE ILLNESS 05/18/2015 Patient Education: Patient Medication Summary Completed 05/18/2015 Visit Plan: Check fasting lab Use pain m eds prn with miralax on the day that takes pain meds 02/22/2015 Appointment: Sapna Live WPtel: [address] [place], [place] [phone] 02/19 [facility] 02/19 appt confirmed-lb ACUTE ILLNESS 5 Patient Education: Patient Medication Summary Completed 02/22/2015 Visit Plan: Increase neurontin to 300mg q HS Continue flexeril and tramadol Call in 1mo on how higher dose of gabapentin 12/02/2014 Appointment: Sapna Live WPtel: [address] [place], [place] [phone] FOLLOW UP 12/02/2014 Patient Education: Patient Medication Summary Completed 12/02/2014 Referral: Eric Angelo WPtel: [address] [facility] [id number] [place] Referral Appointment Confirmed 09/15/2014 Visit Plan: Proceed with pain doctor for possible injection vs nerve block Trial of lidoderm patch Cryotherapy to lesions as above 08/18/2014 Appointment: Sapna Live WPtel: [phone] [facility] ACUTE ILLNESS 08/18/2014 Patient Education: Patient Medication Summary Completed 08/18/2014 Patient Education: Patient Medication Summary Completed 08/13/2014 Visit Plan: Continue current meds Obtain most recent lab results Check thoracic spine x-rays Needs updated CT scan of adrenal tumor 07/08/2014 Appointment: Sapna Live WPtel: [phone] [facility] 07/07 NEW PATIENT 07/08/2014 Patient Education: Patient Medication Summary Completed 07/08/2014 Patient Education: Patient Medication Summary Completed 07/08/2014 Referral: Suhail Cardenas WPtel: [phone] [id number] [place] Referral Completed Referral: Toby Bettencourt WPtel: 1 [facility] A [id number] [place] Referral Completed Referral: Rosario Monahan WPtel: [address] [facility] C [place] Referral Appointment Requested [...]
--- OUTSIDE RECORDS SUMMARY | 2020-02-05 07:48 | XMS REPORT | CCD ---
Author Author Jai Live D.O. Organization [facility] Address [address] [place] [address] Phone Care Team Providers Care Lens Block Gauger Name Role Phone Sapna Live D.O., PP Unavailable CCM Unavailable Summary Purpose Interface Exchange Insurance Providers Payer name Policy type / Coverage type Covered republican ID Effective Begin Date Effective End Date GPA Commercial Insurance [id number] 2019 Unknown Family history Mother Diagnosis Age At Onset Cancer Unknown Father Diagnosis Age At Onset Congestive heart failure Unknown Coronary Artery Disease(CAD) Unknown Social History Social History Element Codes Description Effective Dates Tobacco history SNOMED CT: 1982666 Former smoker 10/09/2018 Marital status Unknown 07/08/2014 Number of children Unknown 1 07/08/2014 Employment Unknown Currently employed 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 07/08/[address]: 786748094 Never drinks alcohol 2013 Has the patient [...] Problems Condition Codes Effective Dates Condition Status Allergic rhinitis ICD-9: 477.9 ICD-10: J30.9 12/19/2019 [...] pain ICD-9: 789.02 ICD-10: R10.12 08/13/2017 Active Acute pharyngitis, unspecified ICD-9: 462 ICD-10: J02.9 02/13/2017 Active Neoplasm of uncertain behavior of spinal [...] mg tablet,extended release 24 hr RxNor m: 354498 1 Tablet(s) Oral two times a day 12/22/2019 12/29/2019 Active clarithromycin ER 500 mg tablet,extended release 24 hr RxNor m: 073766 1 Tablet(s) Oral two times a day [...] Date Active famotidine 20 mg tablet RxNorm: 503054 1 Tablet(s) Oral QPM for postnasal drip/stomach 12/19/2019 01/18/2020 Active tramadol 50 mg tablet RxNorm: 892808 1 Tablet(s) Oral t hree times a day as needed for pain along with two tylenol 12/03/2019 No Stop Date Active doxycycline hyclate 100 mg capsule RxNorm: 9755266 1 Cap lee(s) Oral two times a day 11/03/2019 11/02/2019 Inactive doxycycline hyclate 100 mg capsule RxNorm: 6700870 1 Cap lee(s) Oral two times a day 11/03/2019 11/10/2019 Inactive tramadol 50 mg tablet RxNorm: 545462 1 Tablet(s) Oral t hree times a day as needed for pain along with two tylenol 10/27/2019 10/26/2019 Inactive tramadol 50 mg tablet RxNorm: 419492 1 Tablet(s) Oral t hree times a day as needed for pain along with two tylenol 10/27/2019 10/27/2019 Inactive cyclobenzaprine 10 mg tablet RxNorm: 257380 1 Tablet(s) Oral th ree times a day 10/27/2019 12/18/2019 Inactive Bactrim DS 800 mg-160 mg tablet RxNorm: 120726 1 Tablet(s) Oral two times a day 10/27/2019 11/03/2019 Inactive Bactrim DS 800 mg-160 mg tablet RxNorm: 066471 1 Tablet(s) Oral two times a day 10/27/2019 10/26/2019 Inactive tramadol 50 mg tablet RxNorm: 037327 1 Tablet(s) Oral t hree times a day as needed for pain along with two tylenol 09/29/2019 10/26/2019 Inactive quinapril 40 mg tablet RxNorm: 372954 1 Tablet(s) Oral QD 09/18/2019 03/15/2020 Active Patient requests 90 days supply tramadol 50 mg tablet RxNorm: 434376 1 Tablet(s) Oral t hree times a day as needed for pain along with two tylenol 08/28/2019 08/28/2019 Inactive tramadol 50 mg tablet RxNorm: 159618 1 Tablet(s) PO TID as needed for pain along with two tylenol 08/25/2019 08/27/2019 Inactive pantoprazole 40 mg tablet,delayed release RxNorm: 665487 1 Tabl et(s) Oral QD 08/13/2019 No Stop Date Active Vitamin D3 1,000 unit capsule RxNorm: 941592 1 Capsule(s) Oral QD 1 10/13/2018 12/18/2019 Inactive tamsulosin 0.4 mg capsule RxNorm: 263186 1 Capsule(s) Oral QPM 07/2612/18/2019 Inactive Protonix 40 mg tablet,delayed release RxNorm: 545959 TA KE 1 TABLET BY MOUTH TWICE A DAY 08/04/2019 08/12/2019 Inactive Flagyl 500 mg tablet RxNorm: 248547 1 Tablet(s) Oral three time s a day 07/03/2019 07/13/2019 Inactive fluconazole 100 mg tablet RxNorm: 477133 1 Tablet(s) Oral QD 201807/10/2019 Inactive Bactrim DS 800 mg-160 mg tablet RxNorm: 746702 1 Tablet(s) Oral two times a day 07/03/2019 07/13/2019 Inactive nystatin 100,000 unit/gram topical cream RxNorm: 653408 Application Topical two times a day 07/03/2019 08/12/2019 Inactive gabapentin 600 mg tablet RxNorm: 783386 Tablet(s) TAKE 1 TABLET BY MOUTH EVERY NIGHT AT BEDTIME 06/25/2019 08/12/2019 Inactive - First Attempt Ref: [id number] quinapril 40 mg tablet RxNorm: 233165 1 Tablet(s) Oral QD 06/23/2019 09/17/2019 Inactive Patient requests 90 days supply tramadol 50 mg tablet RxNorm: 930931 1 Tablet(s) PO TID as needed for pain along with two tylenol 05/23/2019 08/24/2019 Inactive hydroxyzine HCl 25 mg tablet RxNorm: 784469 1 Tablet(s) PO TID as needed 05/21/2019 08/12/2019 Inactive Elimite 5 % topical cream RxNorm: 805697 1 Application TOP QHS apply head to toe and was off in morning 05/19/2019 07/02/2019 Inactive Protonix 40 mg tablet,delayed release RxNorm: 335148 1 Tablet(s ) PO BID 05/05/2019 08/02/2019 Inactive - First Attempt Ref: [id number] gabapentin 600 mg tablet RxNorm: 352207 Tablet(s) TAKE 1 TABLET BY MOUTH EVERY NIGHT AT BEDTIME 04/25/2019 06/24/2019 Inactive - First Attempt Ref: [id number] tramadol 50 mg tablet RxNorm: 065836 1 Tablet(s) PO TID as needed for pain along with two tylenol 04/21/2019 05/22/2019 Inactive quinapril 40 mg tablet RxNorm: 323487 1 Tablet(s) PO QD 04/01/2019 Inactive Patient requests 90 days supply fenofibrate micronized 134 mg capsule RxNorm: 530990 1 Capsule(s) PO QD Due for updated fasting labs 03/31/2019 08/12/2019 Inactive dicyclomine 10 mg capsule RxNorm: 572898 1 Capsule(s) PO TID as needed 02/24/2019 05/20/2019 Inactive Flagyl 500 mg tablet RxNorm: 226777 1 Tablet(s) PO Q8H 02/24/201908/2019 Inactive ciprofloxacin 500 mg tablet RxNorm: 052007 1 Tablet(s) PO BID 02/2403/09/2019 Inactive Flagyl 500 mg tablet RxNorm: 958496 1 Tablet(s) PO Q6H 01/30/2019 Inactive ciprofloxacin 500 mg tablet RxNorm: 613330 1 Tablet(s) PO BID 01/3001/29/2019 Inactive Flagyl 500 mg tablet RxNorm: 862676 1 Tablet(s) PO Q6H 01/30/201904/2019 Inactive ciprofloxacin 500 mg tablet RxNorm: 732560 1 Tablet(s) PO BID 01/3002/05/2019 Inactive gabapentin 600 mg tablet RxNorm: 378580 TAKE 1 TABLET B Y MOUTH EVERY NIGHT AT BEDTIME 01/27/2019 04/24/2019 Inactive - First Attempt Ref: [id number] tramadol 50 mg tablet RxNorm: 767553 1 Tablet(s) PO TID as needed for pain along with two tylenol 01/08/2019 04/20/2019 Inactive fenofibrate micronized 134 mg capsule RxNorm: 256715 1 Capsule(s) PO QD Due for updated fasting labs 01/02/2019 03/30/2019 Inactive quinapril 40 mg tablet RxNorm: 278593 1 Tablet(s) PO QD 01/01/2019 Inactive Patient requests 90 days supply Protonix 40 mg tablet,delayed release RxNorm: 021140 TA KE 1 TABLET BY MOUTH TWICE A DAY 01/01/2019 03/31/2019 Inactive - First Attempt Ref: [id number] Protonix 40 mg tablet,delayed release RxNorm: 485633 TA KE 1 TABLET BY MOUTH TWICE A DAY 12/25/2018 12/31/2018 Inactive - First Attempt Ref: [id number] gabapentin 600 mg tablet RxNorm: 903235 TAKE 1 TABLET B Y MOUTH EVERY NIGHT AT BEDTIME 12/02/2018 01/26/2019 Inactive - First Attempt Ref: [id number] Protonix 40 mg tablet,delayed release RxNorm: 588107 1 Tablet(s ) PO BID 11/11/2018 12/24/2018 Inactive Protonix 40 mg tablet,delayed release RxNorm: 690564 1 Tablet(s ) PO BID 10/09/2018 11/10/2018 Inactive gabapentin 600 mg tablet RxNorm: 782700 1 Tablet(s) PO QHS 10/09/1912/01/2018 Inactive quinapril 40 mg tablet RxNorm: 115998 1 Tablet(s) PO QD 1 TABLE T(S) PO QD 08/08/2018 08/07/2018 Inactive Patient requests 9 0 days supply quinapril 40 mg tablet RxNorm: 452611 1 Tablet(s) PO QD 08/08/2018 Inactive Patient requests 90 days supply meloxicam 15 mg tablet RxNorm: 401272 1 Tablet(s) PO QD 08/08/2018 Inactive gabapentin 300 mg capsule RxNorm: 563359 1 CAPSULE(S) P O QHS DUE FOR WELLNESS VISIT 08/07/2018 10/08/2018 Inactive due for followup meloxicam 15 mg tablet RxNorm: 273754 Tablet(s) 1 TABLET(S) PO QD 1 10/07/2017 08/07/2018 Inactive fenofibrate micronized 134 mg capsule RxNorm: 331168 1 Capsule(s) PO QD Needs updated fasting labs!!!!!! 07/08/2018 07/07/2018 Inactive fenofibrate micronized 134 mg capsule RxNorm: 635882 1 Capsule( s) PO QD 07/08/2018 01/01/2019 Inactive fenofibrate micronized 134 mg capsule RxNorm: 291784 1 Capsule(s) PO QD Needs updated fasting labs!!!!!! 06/21/2018 07/08/2018 Inactive Medrol (Daniel) 4 mg tablets in a dose pack RxNorm: 233922 Tablet(s) PO As Directed 05/06/2018 05/05/2018 Inactive Medrol (Daniel) 4 mg tablets in a dose pack RxNorm: 362653 Tablet(s) PO As Directed 05/06/2018 08/07/2018 Inactive quinapril 40 mg tablet RxNorm: 452875 1 TABLET(S) PO QD 05/02/2018 Inactive Patient requests 90 days supply fenofibrate micronized 134 mg capsule RxNorm: 453741 1 Capsule(s) PO QD Needs updated fasting labs 04/29/2018 05/28/2018 Inactive Move Free Joint Health 750 mg-100 mg-1.65 mg-108 mg tablet R xNorm: 1 Tablet(s) PO QD 02/12/2018 03/13/2018 Inactive fenofibrate micronized 134 mg capsule RxNorm: 672538 Ca psule(s) 1 CAPSULE(S) PO QD 01/29/2018 06/21/2018 Inactive quinapril 40 mg tablet RxNorm: 717904 1 TABLET(S) PO QD 11/26/2017 Inactive Patient requests 90 days supply fenofibrate micronized 134 mg capsule RxNorm: 986503 1 CAPSULE( S) PO QD 11/06/2017 01/29/2018 Inactive gabapentin 300 mg capsule RxNorm: 990708 1 CAPSULE(S) P O QHS DUE FOR WELLNESS VISIT 10/24/2017 07/20/2018 Inactive due for followup meloxicam 15 mg tablet RxNorm: 476591 1 TABLET(S) PO QD 10/24/2017 Inactive quinapril 40 mg tablet RxNorm: 816192 1 Tablet(s) PO QD 10/24/2017 Inactive fenofibrate micronized 134 mg capsule RxNorm: 217815 1 Capsule( s) PO QD 08/22/2017 11/05/2017 Inactive fenofibrate micronized 134 mg capsule RxNorm: 328820 1 Capsule( s) PO QD 08/22/2017 08/21/2017 Inactive quinapril 20 mg tablet RxNorm: 014646 1 Tablet(s) PO QD 08/13/2017 Inactive gabapentin 300 mg capsule RxNorm: 135944 1 Capsule(s) P O QHS Due for wellness visit 08/06/2017 10/23/2017 Inactive due for followup gabapentin 300 mg capsule RxNorm: 996008 1 Capsule(s) P O QHS Due for wellness visit 08/02/2017 08/05/2017 Inactive due for followup meloxicam 15 mg tablet RxNorm: 848647 1 Tablet(s) PO QD 08/01/2017 Inactive gabapentin 300 mg capsule RxNorm: 481896 1 Capsule(s) P O QHS Due for wellness visit 08/01/2017 08/01/2017 Inactive due for followup gabapentin 300 mg capsule RxNorm: 645741 1 Capsule(s) P O QHS Due for wellness visit 08/01/2017 08/02/2017 Inactive gabapentin 300 mg capsule RxNorm: 647805 1 Capsule(s) PO QHS 201605/12/2017 Inactive quinapril 10 mg tablet RxNorm: 399289 1 Tablet(s) PO QD replace s quinapril hct 02/12/2017 08/12/2017 Inactive meloxicam 15 mg tablet RxNorm: 630420 1 Tablet(s) PO QD 02/05/2017 Inactive quinapril 10 mg tablet RxNorm: 600560 1 Tablet(s) PO QD replace s quinapril hct 11/16/2016 02/12/2017 Inactive gabapentin 300 mg capsule RxNorm: 650976 1 Capsule(s) PO QHS 201602/12/2017 Inactive quinapril 10 mg tablet RxNorm: 371893 1 Tablet(s) PO QD replace s quinapril hct 10/16/2016 11/15/2016 Inactive gabapentin 300 mg capsule RxNorm: 581353 1 Capsule(s) PO QHS 201511/15/2016 Inactive quinapril 10 mg tablet RxNorm: 785349 1 Tablet(s) PO QD replace s quinapril hct 07/19/2016 10/15/2016 Inactive meloxicam 15 mg tablet RxNorm: 311801 1 Tablet(s) PO QD 07/10/2016 Inactive meloxicam 15 mg tablet RxNorm: 565878 TAKE ONE TABLET BY MOUTH LUKE Y 07/10/2016 07/09/2016 Inactive meloxicam 15 mg tablet RxNorm: 859930 1 Tablet(s) PO QD 07/06/2016 Inactive meloxicam 15 mg tablet RxNorm: 520584 1 Tablet(s) PO QD 06/09/2016 Inactive Multivitamin & Mineral Formula tablet RxNorm: 1 Tablet(s) PO Q D 06/02/2016 07/01/2016 Inactive tamsulosin 0.4 mg capsule RxNorm: 624984 1 Capsule(s) PO QHS 201507/01/2016 Inactive Move Free Joint Health 750 mg-100 mg-1.65 mg-108 mg tablet R xNorm: 1 Tablet(s) PO QD 06/02/2016 07/01/2016 Inactive gabapentin 300 mg capsule RxNorm: 323503 1 Capsule(s) PO QHS 201508/27/2016 Inactive gabapentin 300 mg capsule RxNorm: 606273 Capsule(s) ALFONZO E ONE CAPSULE BY MOUTH AT BEDTIME 02/28/2016 05/27/2016 Inactive quinapril 10 mg-hydrochlorothiazide 12.5 mg tablet RxNorm: 3 87114 Tablet(s) TAKE ONE TABLET BY MOUTH EVERY MORNING 01/14/2016 07/18/2016 Inactive gabapentin 300 mg capsule RxNorm: 479049 TAKE ONE CAPSULE BY [facility] AT BEDTIME 12/28/2015 02/27/2016 Inactive Urecholine 25 mg tablet RxNorm: 604067 1 Tablet(s) PO TID 11/09/2015 07/18/2016 Inactive phenazopyridine 100 mg tablet RxNorm: 8751624 1 Tablet(s ) PO TID as needed for bladder spasms. 11/08/2015 11/08/2015 Inactive quinapril 10 mg-hydrochlorothiazide 12.5 mg tablet RxNorm: 3 80951 TAKE ONE TABLET BY MOUTH EVERY MORNING 10/15/2015 01/13/2016 Inactive gabapentin 300 mg capsule RxNorm: 015553 1 Tablet(s) PO QD TAKE ONE CAPSULE BY MOUTH EVERY NIGHT AT BEDTIME 09/23/2015 12/21/2015 Inactive quinapril 10 mg-hydrochlorothiazide 12.5 mg tablet RxNorm: 3 83900 Tablet(s) TAKE ONE TABLET BY MOUTH EVERY MORNING 07/14/2015 10/14/2015 Inactive gabapentin 300 mg capsule RxNorm: 995086 1 Tablet(s) PO QD TAKE ONE CAPSULE BY MOUTH EVERY NIGHT AT BEDTIME 06/25/2015 09/23/2015 Inactive prednisone 20 mg tablet RxNorm: 824353 1 Tablet(s) PO QD 06/14/2015 0 06/20/2015 Inactive cephalexin 500 mg capsule RxNorm: 715855 1 Capsule(s) PO BID 201405/27/2015 Inactive mupirocin 2 % topical ointment RxNorm: 771906 TOP BID 05/18/2015 0 06/13/2015 Inactive quinapril 10 mg-hydrochlorothiazide 12.5 mg tablet RxNorm: 3 95871 Tablet(s) TAKE ONE TABLET BY MOUTH EVERY MORNING 04/06/2015 07/14/2015 Inactive gabapentin 300 mg capsule RxNorm: 556425 1 Capsule(s) PO QHS 201404/01/2015 Inactive [SAVINGS FOR NON-COVERED LILIANA GS -- BIN:203019, PCN: ASPROD1, Group: XXXXX, ID# [id number], Questions: . THIS IS NOT INSURANCE.] gabapentin 300 mg capsule RxNorm: 386892 1 Capsule(s) PO QHS 201406/25/2015 Inactive [SAVINGS FOR NON-COVERED LILIANA GS -- BIN:359406, PCN: ASPROD1, Group: XXXXX, ID# [id number], Questions: . THIS IS NOT INSURANCE.] quinapril 10 mg-hydrochlorothiazide 12.5 mg tablet RxNorm: 3 92711 TAKE ONE TABLET BY MOUTH EVERY MORNING 12/11/2014 04/05/2015 Inactive gabapentin 300 mg capsule RxNorm: 831189 1 Capsule(s) PO QHS 201404/02/2015 Inactive [SAVINGS FOR NON-COVERED LILIANA GS -- BIN:773295, PCN: ASPROD1, Group: XXXXX, ID# [id number], Questions: . THIS IS NOT INSURANCE.] cyclobenzaprine 10 mg tablet RxNorm: 792788 1 Tablet(s) PO TID as needed for muscle spasm for muscle spasm 12/02/2014 02/21/2015 Inactive [S AVINGS FOR NON- COVERED DRUGS -- BIN:093229, PCN: ASPROD1, Group: XXXXX, ID# [id number], Questions: . THIS IS NOT INSURANCE.] gabapentin 100 mg capsule RxNorm: 040663 1 Capsule(s) PO QHS 201412/01/2014 Inactive [SAVINGS FOR NON-COVERED LILIANA GS -- BIN:456902, PCN: ASPROD1, Group: XXXXX, ID# [id number], Questions: . THIS IS NOT INSURANCE.] ibuprofen 800 mg tablet RxNorm: 812857 1 Tablet(s) PO T ID as needed low back pain 11/11/2014 11/23/2014 Inactive [SAVINGS FOR NON -COVERED DRUGS -- BIN:612478, PCN: ASPROD1, Group: XXXXX, ID# [id number], Questions: . THIS IS NOT INSURANCE.] ibuprofen 800 mg tablet RxNorm: 517608 1 Tablet(s) PO T ID as needed low back pain 11/09/2014 11/10/2014 Inactive [SAVINGS FOR NON -COVERED DRUGS -- BIN:524726, PCN: ASPROD1, Group: XXXXX, ID# [id number], Questions: . THIS IS NOT INSURANCE.] Zorvolex 35 mg capsule RxNorm: 6394427 1 Tablet(s) PO TID 08/27/2014 10/01/2014 Inactive [SAVINGS FOR UNINSURED PATIENTS -- BIN:0 55061, PCN: ASPROD1, Group: AME08, ID# [id number], Process claim through Nautal, for questions: . THIS IS NOT INSURANCE.] quinapril 10 mg-hydrochlorothiazide 12.5 mg tablet RxNorm: 3 30614 1 Tablet(s) PO QAM 08/27/2014 11/24/2014 Inactive Lidoderm 5 % (700 mg/patch) adhesive patch RxNorm: 4703743 Application TOP for 12hours then off for pain 08/18/2014 02/21/2015 Inactive [SAVIN GS FOR UNINSURED PATIENTS -- BIN:222542, PCN: ASPROD1, Group: AME08, ID# [id number], Process claim through Nautal, for questions: . THIS IS NOT INSURANCE.] Zorvolex 35 mg capsule RxNorm: 9365402 1 Tablet(s) PO TID 08/13/2014 08/12/2014 Inactive Zorvolex 35 mg capsule RxNorm: 8582112 1 Tablet(s) PO TID 08/13/2014 08/24/2014 Inactive [SAVINGS FOR UNINSURED PATIENTS -- BIN:0 00734, PCN: ASPROD1, Group: [id number], ID# [id number], Process claim through Nautal, for questions: . THIS IS NOT INSURANCE.] Aspirin Child 81 mg chewable tablet RxNorm: 843684 1 Tablet(s) PO QD No Start Date Active ibuprofen 800 mg tablet RxNorm: 503177 1 Tablet(s) PO T ID as needed low back pain No Start Date 11/08/2014 Inactive cyclobenzaprine 10 mg tablet RxNorm: 220162 1 Tablet(s) PO TID No S tart Date 08/12/2017 Inactive garlic 1,000 mg capsule RxNorm: 427009 1 Capsule(s) PO QD No Start Date 04/22/2019 Inactive tramadol 50 mg tablet RxNorm: 625837 1 Tablet(s) PO Q4-6H as ne eded for pain No Start Date 02/21/2015 Inactive tramadol 50 mg tablet RxNorm: 910297 1 Tablet(s) PO TID as needed for pain along with two tylenol No Start Date 01/07/2019 Inactive krill oil oral RxNorm: 99008 oral No Start Date 11/11/2018 Inacti ve Vitamin D3 2,000 unit tablet RxNorm: 520355 1 Tablet(s) PO QD No St art Date 08/12/2019 Inactive gabapentin 100 mg tablet RxNorm: 914485 1 Tablet(s) PO QD No Start Date 11/10/2014 Inactive Zofran 4 mg tablet RxNorm: 554988 1 Tablet(s) PO Q6H as needed No S tart Date 08/12/2019 Inactive Elimite 5 % topical cream RxNorm: 665914 1 Application TOP QHS apply head to toe and was off in morning No Start Date 05/18/2019 Inactive gabapentin 100 mg capsule RxNorm: 985293 1 Capsule(s) PO QHS No Sta rt Date 11/10/2014 Inactive aspirin 325 mg tablet RxNorm: 712154 2 Tablet(s) PO QD No Start Date 08/17/2014 Inactive Fish Oil 1,000 mg capsule RxNorm: 1 Capsule(s) PO QD No Start Date 10/08/2018 Inactive quinapril 10 mg-hydrochlorothiazide 12.5 mg tablet RxNorm: 3 82655 1 Tablet(s) PO QAM No Start Date 08/26/2014 Inactive quinapril 40 mg tablet RxNorm: 239796 1 Tablet(s) PO QD No Start Da te 10/23/2017 Inactive Medrol (Daniel) 4 mg tablets in a dose pack RxNorm: 173073 Tablet(s) PO As Directed No Start Date 05/05/2018 Inactive Urecholine 25 mg tablet RxNorm: 192207 1 Tablet(s) PO TID No Start Date 11/08/2015 Inactive cyclobenzaprine 10 mg tablet RxNorm: 506171 1/2-1 Table t(s) PO TID as needed for muscle spasm No Start Date 12/01/2014 Inactive tamsulosin 0.4 mg capsule RxNorm: 032488 2 Capsule(s) PO QPM No Sta rt Date 08/12/2019 Inactive hydrocodone 5 mg-acetaminophen 325 mg tablet RxNorm: 786227 1 -2 Tablet(s) PO Q6H as needed No Start Date 05/20/2019 Inactive loratadine 10 mg tablet RxNorm: 210893 1 Tablet(s) PO QD No Start D ate 07/07/2014 Inactive Medication Administered No Medication Administered data Immunizations Vaccine Codes Date Status Influenza CVX: 141 07/21/2019 Results Observation Observation Code Item Item Code Result Date S ervice Location CULTURE, AEROBIC BACTERIA 56883 CULTURE, AEROBIC BACTERIA SEE NOTE 10/30/2019 [facility] Seun Becerra [address] [place] [address] CULTURE, URINE, ROUTINE 395 CULTURE SEE NOTE 1 10/15/2018 [facility] Seun Becerra [address] [place] [address] CULTURE, URINE, ROUTINE 395 CULTURE, URINE, ROUTINE SEE NOTE 08/15/2019 [facility] [address] CBC (H/H, RBC, INDICES, WBC, PLT) 01432 WHITE BLOOD CELL COU NT 7.9 Thousand/uL 08/14/2019 [facility] [address] CBC (H/H, RBC, INDICES, WBC, PLT) 18412 RED BLOOD CELL COUNT 4.93 Million/uL 08/14/2019 [facility] [address] CBC (H/H, RBC, INDICES, WBC, PLT) 03982 HEMOGLOBIN 15 .4 g/dL 08/14/2019 [facility] [address] CBC (H/H, RBC, INDICES, WBC, PLT) 12955 HEMATOCRIT 45 .0 % 08/14/2019 [facility] [address] CBC (H/H, RBC, INDICES, WBC, PLT) 09439 MCV 91 .3 fL 08/14/2019 [facility] [address] CBC (H/H, RBC, INDICES, WBC, PLT) 15181 MCH 31 .2 pg 08/14/2019 [facility] [address] CBC (H/H, RBC, INDICES, WBC, PLT) 55605 MCHC 34 .2 g/dL 08/14/2019 [facility] [address] CBC (H/H, RBC, INDICES, WBC, PLT) 33777 RDW 12 .7 % 08/14/2019 [facility] [address] CBC (H/H, RBC, INDICES, WBC, PLT) 11118 PLATELET COUNT 214 Thousand/uL 08/14/2019 [facility] [address] CBC (H/H, RBC, INDICES, WBC, PLT) 08708 MPV 11 .5 fL 08/14/2019 [facility] [place] [address] COMPREHENSIVE METABOLIC PANEL 36778 Glucose 113 mg /dL 08/14/2019 [facility] [address] [address] COMPREHENSIVE METABOLIC PANEL 35061 UREA NITROGEN (BUN) 16 mg/dL 08/14/2019 [facility] [address] [address] COMPREHENSIVE METABOLIC PANEL 81377 CREATININE 0.86 m g/dL 08/14/2019 [facility] [address] [address] COMPREHENSIVE METABOLIC PANEL 74685 eGFR NON-AFR. GERMAN 92 mL/min/1.73m2 08/14/2019 [facility] [address] [address] COMPREHENSIVE METABOLIC PANEL 66280 eGFR 106 mL/min/1.73m2 08/14/2019 [facility] [address] [address] COMPREHENSIVE METABOLIC PANEL 09689 BUN/CREATININE RATIO NOT APPLICABLE (calc) 08/14/2019 [facility] [address] [place] [address] COMPREHENSIVE METABOLIC PANEL 69157 SODIUM 141 mm ol/L 08/14/2019 [facility] [address] [address] COMPREHENSIVE METABOLIC PANEL 98512 POTASSIUM 4.1 mm ol/L 08/14/2019 [facility] [address] [place] [address] COMPREHENSIVE METABOLIC PANEL 91967 CHLORIDE 102 mm ol/L 08/14/2019 [facility] [address] [place] [address] COMPREHENSIVE METABOLIC PANEL 95136 CARBON DIOXIDE 28 mmol/L 08/14/2019 [facility] [address] [address] COMPREHENSIVE METABOLIC PANEL 76121 CALCIUM 9.7 mg /dL 08/14/2019 [facility] [address] [address] COMPREHENSIVE METABOLIC PANEL 04426 PROTEIN, TOTAL 6. 7 g/dL 08/14/2019 [facility] [address] [place] [address] COMPREHENSIVE METABOLIC PANEL 78230 ALBUMIN 4.3 g/ dL 08/14/2019 [facility] [address] [address] COMPREHENSIVE METABOLIC PANEL 60779 GLOBULIN 2.4 g/ dL(calc) 08/14/2019 [facility] [address] COMPREHENSIVE METABOLIC PANEL 63646 ALBUMIN/GLOBULIN RATIO 1.8 (calc) 08/14/2019 [facility] [address] COMPREHENSIVE METABOLIC PANEL 62231 BILIRUBIN, TOTAL 1.0 mg/dL 08/14/2019 [facility] [address] COMPREHENSIVE METABOLIC PANEL 39186 ALKALINE PHOSPHATASE 56 U/L 08/14/2019 [facility] [address] COMPREHENSIVE METABOLIC PANEL 58553 AST 18 U/L 08/14/2019 [facility] [address] COMPREHENSIVE METABOLIC PANEL 39040 ALT 28 U/L 08/14/2019 [facility] [address] MAGNESIUM 46288 MAGNESIUM 2.0 mg/dL 06/06/2019 [facility] [address] COMPREHENSIVE METABOLIC PANEL 99366 Glucose 106 mg /dL 06/06/2019 [facility] [address] COMPREHENSIVE METABOLIC PANEL 83789 UREA NITROGEN (BUN) 22 mg/dL 06/06/2019 [facility] [address] COMPREHENSIVE METABOLIC PANEL 59054 CREATININE 1.29 m g/dL 06/06/2019 [facility] [address] COMPREHENSIVE METABOLIC PANEL 92433 eGFR NON-AFR. GERMAN 58 mL/min/1.73m2 06/06/2019 [facility] [address] COMPREHENSIVE METABOLIC PANEL 29988 eGFR 67 mL/min/1.73m2 06/06/2019 [facility] [facility] [address] COMPREHENSIVE METABOLIC PANEL 84028 BUN/CREATININE RATIO 17 (calc) 06/06/2019 [facility] [address] COMPREHENSIVE METABOLIC PANEL 18066 SODIUM 138 mm ol/L 06/06/2019 [facility] [address] COMPREHENSIVE METABOLIC PANEL 16357 POTASSIUM 4.2 mm ol/L 06/06/2019 [facility] [address] COMPREHENSIVE METABOLIC PANEL 70313 CHLORIDE 101 mm ol/L 06/06/2019 [facility] [address] COMPREHENSIVE METABOLIC PANEL 04801 CARBON DIOXIDE 29 mmol/L 06/06/2019 [facility] [address] COMPREHENSIVE METABOLIC PANEL 25837 CALCIUM 9.6 mg /dL 06/06/2019 [facility] [address] COMPREHENSIVE METABOLIC PANEL 76012 PROTEIN, TOTAL 6. 9 g/dL 06/06/2019 [facility] [address] COMPREHENSIVE METABOLIC PANEL 76306 ALBUMIN 4.4 g/ dL 06/06/2019 [facility] [address] COMPREHENSIVE METABOLIC PANEL 06307 GLOBULIN 2.5 g/ dL(calc) 06/06/2019 [facility] [address] COMPREHENSIVE METABOLIC PANEL 46675 ALBUMIN/GLOBULIN RATIO 1.8 (calc) 06/06/2019 [facility] [address] COMPREHENSIVE METABOLIC PANEL 07766 BILIRUBIN, TOTAL 0.7 mg/dL 06/06/2019 [facility] [address] COMPREHENSIVE METABOLIC PANEL 67134 ALKALINE PHOSPHATASE 45 U/L 06/06/2019 [facility] [address] COMPREHENSIVE METABOLIC PANEL 86567 AST 21 U/L 06/06/2019 [facility] [address] COMPREHENSIVE METABOLIC PANEL 54151 ALT 34 U/L 06/06/2019 [facility] [address] CULTURE, URINE, ROUTINE 395 CULTURE, URINE, ROUTINE SEE NOTE 04/23/2019 [facility] DiagnosticsWisam Becerra [id number] [place] [phone] CULTURE, URINE, ROUTINE 395 CULTURE SEE NOTE 0 04/23/2019 [facility] Becerra [id number] [place] [address] EXTRA 1014 EXTRA TUBE RECEIVED 04/22 [facility] [address] [address] EXTRA 1014 SPECIMEN TYPE RECEIVED: LAV 0 04/22/2019 [facility] [address] [place] [address] COMPREHENSIVE METABOLIC PANEL 38579 Glucose 94 mg/ dL 04/22/2019 [facility] [address] [address] COMPREHENSIVE METABOLIC PANEL 85662 UREA NITROGEN (BUN) 20 mg/dL 04/22/2019 [facility]ostics[facility] Becerra [address] [place] [address] COMPREHENSIVE METABOLIC PANEL 64784 CREATININE 1.30 m g/dL 04/22/2019 [facility] Becerra [address] [place] [address] COMPREHENSIVE METABOLIC PANEL 19513 eGFR NON-AFR. GERMAN 58 mL/min/1.73m2 04/22/2019 [facility] [address] [address] COMPREHENSIVE METABOLIC PANEL 81113 eGFR 67 mL/min/1.73m2 04/22/2019 [facility]ostics[facility] Becerra [address] [place] [address] COMPREHENSIVE METABOLIC PANEL 85606 BUN/CREATININE RATIO 15 (calc) 04/22/2019 [facility]ostics[facility] Becerra [address] [place] [address] COMPREHENSIVE METABOLIC PANEL 04784 SODIUM 139 mm ol/L 04/22/2019 [facility] Becerra [address] [place] [address] COMPREHENSIVE METABOLIC PANEL 25591 POTASSIUM 4.2 mm ol/L 04/22/2019 [facility] [address] [address] COMPREHENSIVE METABOLIC PANEL 92795 CHLORIDE 104 mm ol/L 04/22/2019 [facility] [address] [address] COMPREHENSIVE METABOLIC PANEL 42433 CARBON DIOXIDE 27 mmol/L 04/22/2019 [facility] [address] [address] COMPREHENSIVE METABOLIC PANEL 98846 CALCIUM 9.9 mg /dL 04/22/[address] [address] COMPREHENSIVE METABOLIC PANEL 51842 PROTEIN, TOTAL 7. 1 g/dL 04/22/[address] [address] COMPREHENSIVE METABOLIC PANEL 02960 ALBUMIN 4.6 g/ dL 04/22/2019 [facility] [address] COMPREHENSIVE METABOLIC PANEL 03476 GLOBULIN 2.5 g/ dL(calc) 04/22/2019 [facility] [address] COMPREHENSIVE METABOLIC PANEL 35478 ALBUMIN/GLOBULIN RATIO 1.8 (calc) 04/22/[address] [address] COMPREHENSIVE METABOLIC PANEL 77587 BILIRUBIN, TOTAL 0.4 mg/dL 04/22/[address] [address] COMPREHENSIVE METABOLIC PANEL 15657 ALKALINE PHOSPHATASE 53 U/L 04/22/[address] [address] COMPREHENSIVE METABOLIC PANEL 34792 AST 21 U/L 04/22/[address] [address] COMPREHENSIVE METABOLIC PANEL 08501 ALT 34 U/L 04/22/[address] [address] CULTURE, URINE, ROUTINE 395 CULTURE, URINE, ROUTINE SEE NOTE 01/31/[address] [address] Procedures Procedure Codes Date CULTURE, AEROBIC BACTERIA CPT-4: 63819 10/27/2019 URINALYSIS NONAUTO W/O SCOPE CPT-4: 86371 10/02/2019 URINE CULTURE/ COLONY COUNT CPT-4: 56926 10/02/2019 ROUTINE VENIPUNCTURE CPT-4: 40261 08/13/2019 URINALYSIS NONAUTO W/O SCOPE CPT-4: 22388 08/13/2019 CULTURE, URINE, ROUTINE CPT-4: 395 08/13/2019 COMPREHENSIVE METABOLIC PANEL CPT-4: 02450 08/13/2019 CBC (H/H, RBC, INDICES, WBC, PLT) CPT-4: 20593 2018 COMPREHENSIVE METABOLIC PANEL CPT-4: 66798 06/05/2019 MAGNESIUM CPT-4: 08762 06/05/2019 DEXAMETHASONE SODIUM PHOS CPT-4: J1100 05/21/2019 THER/PROPH/DIAG INJ SC/IM CPT-4: 85180 05/21/2019 TRIAMCINOLONE ACET INJ NOS CPT-4: J3301 05/21/2019 ROUTINE VENIPUNCTURE CPT-4: 99281 04/21/2019 COMPREHENSIVE METABOLIC PANEL CPT-4: 68340 04/21/2019 EXTRA CPT-4: 1014 04/21/2019 CULTURE, URINE, ROUTINE CPT-4: 395 04/21/2019 URINALYSIS NONAUTO W/O SCOPE CPT-4: 44555 04/21/2019 URINALYSIS NONAUTO W/O SCOPE CPT-4: 61788 01/29/2019 CULTURE, URINE, ROUTINE CPT-4: 395 01/29/2019 DRAIN/INJECT JOINT/BURSA CPT-4: 85492 02/19/2018 TRIAMCINOLONE ACET INJ NOS CPT-4: J3301 02/19/2018 DEXAMETHASONE SODIUM PHOS CPT-4: J1100 02/19/2018 THER/PROPH/DIAG INJ SC/IM CPT-4: 10633 02/12/2018 TRIAMCINOLONE ACET INJ NOS CPT-4: J3301 02/12/2018 DEXAMETHASONE SODIUM PHOS CPT-4: J1100 02/12/2018 CEFTRIAXONE SODIUM INJECTION CPT-4: J0696 12/03/2017 THER/PROPH/DIAG INJ SC/IM CPT-4: 13235 12/03/2017 THER/PROPH/DIAG INJ SC/IM CPT-4: 15663 12/03/2017 METHYLPREDNISOLONE INJECTION CPT-4: J2930 12/03/2017 URINALYSIS NONAUTO W/O SCOPE CPT-4: 66929 08/13/2017 STREP A ASSAY W/OPTIC CPT-4: 97100 02/13/2017 DESTRUCT PREMALG LESION (Cryosurgery) CPT-4: 89649 Vital Signs Date Vital 10/27/2019 Blood Pressure 1: 138/79 Code: 8480-6 [...] 1: 128/78 Code: 8480-6 BMI: 36.0 Code: 44133-8 Heart Rate 1: 68 bpm Height: 5'7" [...] 1: 138/86 Code: 8480-6 BMI: 35.6 Code: 25661-4 Heart Rate 1: 68 bpm Height: 5'7" SpO2: 95% Temperature: 36.6 (C) / 97.8 (F) Weight: 227 lbs 12/03/2017 Blood Pressure 1: 134/84 Code: 8480-6 BMI: 34.3 Code: 47937-8 Heart Rate 1: 68 bpm Height: 5'7" Respiratory Rate: 20 bpm SpO2: 96% Tempera ture: 35.9 (C) / 96.6 (F) Weight: 219 lbs 09/11/2017 Blood Pressure 1: 140/86 Code: 8480-6 BMI: 34.9 Code: 69079-0 Heart Rate 1: 84 bpm Height: 5'7" Respiratory Rate: 20 bpm SpO2: 95% Tempera ture: 36.7 (C) / 98.1 (F) Weight: 223 lbs 08/13/2017 Blood Pressure 1: 142/94 Code: 8480-6 BMI: 34.5 Code: 19502-1 Heart Rate 1: 76 bpm Height: 5'7" Respiratory Rate: 20 bpm SpO2: 96% Tempera ture: 37.1 (C) / 98.8 (F) Weight: 220 lbs 11/17/2016 Blood Pressure 1: 118/78 Code: 8480-6 He art Rate 1: 64 bpm 07/19/2016 Blood Pressure 1: 112/58 Code: 8480-6 BMI: 31.6 Code: 66952-8 Heart Rate 1: 88 bpm Height: 5'7" Respiratory Rate: 22 bpm SpO2: 98% Tempera ture: 36.3 (C) / 97.4 (F) Weight: 202 lbs 06/09/2016 Blood Pressure 1: 138/84 Code: 8480-6 BMI: 32.1 Code: 61292-6 Heart Rate 1: 58 bpm Height: 5'7" Respiratory Rate: 20 bpm SpO2: 97% Tempera ture: 36.6 (C) / 97.8 (F) Weight: 205 lbs 11/08/2015 Blood Pressure 1: 142/80 Code: 8480-6 BMI: 32.4 Code: 92820-0 Heart Rate 1: 76 bpm Height: 5'7" Respiratory Rate: 20 bpm Temperature: 36 .6 (C) / 97.9 (F) Weight: 207 lbs 06/14/2015 Blood Pressure 1: 126/80 Code: 8480-6 Heart Rate 1: 84 bpm Respiratory Rate: 20 bpm Temperature: 36.8 (C) / 98.2 (F) Weight: 206 lbs 05/18/2015 Blood Pressure 1: 124/80 Code: 8480-6 BMI: 32.3 Code: 81714-0 Heart Rate 1: 68 bpm Height: 5'7" Respiratory Rate: 20 bpm Temperature: 36 .4 (C) / 97.6 (F) Weight: 206 lbs 02/22/2015 Blood Pressure 1: 126/78 Code: 8480-6 BMI: 32.1 Code: 57287-4 Heart Rate 1: 76 bpm Height: 5'7" Respiratory Rate: 20 bpm Temperature: 36 .6 (C) / 97.9 (F) Weight: 205 lbs 12/02/2014 Blood Pressure 1: 124/80 Code: 8480-6 BMI: 32.7 Code: 48551-3 Heart Rate 1: 70 bpm Height: 5'7" Respiratory Rate: 18 bpm Temperature: 36 .6 (C) / 97.9 (F) Weight: 209 lbs 08/18/2014 Blood Pressure 1: 132/94 Code: 8480-6 BMI: 34.5 Code: 04628-9 Heart Rate 1: 84 bpm Height: 5'6" Respiratory Rate: 20 bpm Temperature: 36 .6 (C) / 97.9 (F) Weight: 217 lbs 07/08/2014 Blood Pressure 1: 142/88 Code: 8480-6 BMI: 34.3 Code: 66457-1 Heart Rate 1: 72 bpm Height: 5'6" [...] 12/02/2014 skin lesion 08/18/2014 ~generic 07/08/2014 New Patient/Marialuisa josephng Visit Encounters Encounter Performer Location Codes Date ([id number]) OFFICE/OUTPATIENT VISIT EST Diagnosis: Allergic rhinitis[ICD10: J30.9] Diagnosis: Postnasal drip[ICD10: R09.82] Sapna Live [facility] CPT-4: 86005 12/19/2019 ([id number]) NO CHARGE Diagnosis: Infected sebaceous cyst[ICD10: L72.3] Sapna REDMOND JefryAmarjit PAULYDOMINICEDVIN [facility] CPT-4: 23649 11/03/2019 ([id number]) OFFICE/OUTPATIENT VISIT EST Diagnosis: Disorder of the skin and subcutaneous tissue, unspecified[ICD10: L98.9] Diagnosis: Infected sebaceous cyst[ICD10: L72.3] Diagnosis: Local infection of the skin and subcutaneous tissue, unspecified[ICD10: L08.9] Lashell Summerssabino Johnston PAULYDOMINICER [facility] CPT-4 : 93213 10/27/2019 ([id number]) OFFICE/OUTPATIENT VISIT EST Diagnosis: Suprapubic abdominal pain[ICD10: R10.2] Diagnosis: Aortic regurgitation[ICD10: I35.1] Sapna Johnston PAULYNDER [facility] CPT-4: 76387 10/02/2019 ([id number]) OFFICE/OUTPATIENT VISIT EST Diagnosis: Chest pain[ICD10: R07.9] Lashell Dotyanne GOODSON MANUELITO [facility] CPT-4: 04646 08/25/2019 ([id number]) OFFICE/OUTPATIENT VISIT EST Diagnosis: Thoracic back pain[ICD10: M54.6] Diagnosis: Disorder of kidney and ureter, unspecified[ICD10: N28.9] Diagnosis: Personal history of nicotine dependence[ICD10: Z87.891] 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] Lashell Heathanne Johnston OR ANGELY [facility] CPT-4: 61162 08/13/2019 ([id number]) OFFICE/OUTPATIENT VISIT EST Diagnosis: Sigmoid diverticulitis[ICD10: K57.32] Diagnosis: Renal insufficiency[ICD10: N28.9] Diagnosis: Jock itch[ICD10: B35.6] Sapna PARDO DO [facility] CPT-4: 10326 07/03/2019 ([id number]) OFFICE/OUTPATIENT VISIT EST Diagnosis: Cramp and spasm[ICD10: R25.2] Diagnosis: Disorder of kidney and ureter, unspecified[ICD10: N28.9] Lashell LIVE DO [facility] CPT-4: 77978 06/05/2019 ([id number]) OFFICE/OUTPATIENT VISIT EST Diagnosis: Other pruritus[ICD10: L29.8] Diagnosis: Pain in right knee[ICD10: M25.561] Lashell SANCHEZ LOTUS Jefry. CALOS Valopaa [facility] CPT-4: 22214 05/21/2019 ([id number]) NURSE/OUTPATIENT VISIT EST Diagnosis: Edema, unspecified[ICD10: R60.9] Sapna LIVE Valopaa [facility] CPT-4: 96501 04/21/2019 ([id number]) OFFICE/OUTPATIENT VISIT EST Diagnosis: Diverticulitis of large intestine without perforation or abscess without bleeding[ICD10: K57.32] Diagnosis: Snoring[ICD10: R06.83] Diagnosis: Other constipation[ICD10: K59.09] Lashell Chandler SAmarjit LIVE [facility] CPT-4: 43860 02/24/2019 ([id number]) OFFICE/OUTPATIENT VISIT EST Diagnosis: Diverticulitis of large intestine without perforation or abscess with bleeding[ICD10: K57.33] Nancyaleksandr Mendiola SAPNA Vickie LIVE [facility] CPT-4: 84565 02/04/2019 ([id number]) OFFICE/OUTPATIENT VISIT EST Diagnosis: Left lower quadrant pain[ICD10: R10.32] Nancy LORA JefryAmarjit CALOS [facility] CPT-4: 87277 01/29/2019 OFFICE/OUTPATIENT VISIT EST Diagnosis: Dermatitis, unspecified[ICD10: L30.9] Diagnosis: Gastro-esophageal reflux disease without esophagitis[ICD10: K21.9] Diagnosis: Palpitations[ICD10: R00.2] Sapna AU DO [facility] CPT-4: 89535 12/19/2018 ([id number]) OFFICE/OUTPATIENT VISIT EST Diagnosis: Gastro-esophageal reflux disease without esophagitis[ICD10: K21.9] Diagnosis: Dysphagia, pharyngoesophageal phase[ICD10: R13.14] Sapna LIVE DO [facility] CPT-4: 49719 11/11/2018 ([id number]) PREV VISIT EST AGE 40-64 Diagnosis: Encounter [...] disorders of digestive system[ICD10: K91.89] Lashell LIVE [facility] CPT-4: 99 396 10/09/2018 ([id number]) OFFICE/OUTPATIENT VISIT EST Diagnosis: Pain in right knee[ICD10: M25.561] Diagnosis: Pain in right hip[ICD10: M25.551] Lashell LIVE [facility] CPT-4: 34778 02/12/2018 OFFICE/OUTPATIENT VISIT EST Diagnosis: Essential (primary) hypertension[ICD10: I10] Diagnosis: Other chest pain[ICD10: R07.89] Lashell LIVE DO [facility] CPT-4: 33096 12/03/2017 ([id number]) OFFICE/OUTPATIENT VISIT EST Diagnosis: Essential (primary) hypertension[ICD10: I10] Sapna LIVE [facility] CPT-4: 01582 09/11/2017 ([id number]) PREV VISIT EST AGE 40-64 Diagnosis: Encounter for general adult medical examination without abnormal findings[ICD10: Z00.00] Diagnosis: Essential (primary) hypertension[ICD10: I10] Diagnosis: Left lower quadrant pain[ICD10: R10.32] Diagnosis: Left upper quadrant pain[ICD10: R10.12] Diagnosis: Other intervertebral disc degeneration, 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] Sapna LIVE [facility] CPT-4: 46484 08/13/2017 ([id number]) OFFICE/OUTPATIENT VISIT EST Diagnosis: Acute pharyngitis, unspecified[ICD10: J02.9] Sapna LIVE DO [facility] CPT-4: 69332 02/13/2017 ([id number]) PREV VISIT EST AGE 40-64 Diagnosis: Encounter for general adult medical examination without abnormal findings[ICD10: Z00.00] Diagnosis: Essential (primary) hypertension[ICD10: I10] 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] Sapna LIVE [facility]aa [facility] CPT-4: 74244 07/19/2016 OFFICE/OUTPATIENT VISIT EST Diagnosis: Pain in thoracic spine[ICD10: M54.6] Diagnosis: Disorder of the skin and subcutaneous tissue, unspecified[ICD10: L98.9] Soiba Monreal SAPNA LIVE [facility] CPT-4: 26518 06/09/2016 OFFICE/OUTPATIENT VISIT EST Diagnosis: Retention of urine, unspecified[ICD10: R33.9] Diagnosis: Urinary tract infection, site not specified[ICD10: N39.0] Chelsie Teixeira SAPNA LIVE [facility] CPT-4: 99260 11/08/2015 ([id number]) OFFICE/OUTPATIENT VISIT EST Diagnosis: DERMATITIS NOS[ICD9: 692.9] Diagnosis: SEBACEOUS CYST[ICD9: 706.2] Sapna Snyder DANITZA [facility] CPT-4: 20391 06/14/2015 OFFICE/OUTPATIENT VISIT EST Diagnosis: LOCAL SKIN INFECTION[ICD9: 686.9] Diagnosis: FOLLICULITIS[ICD9: 704.8] Chelsie HASSAN DO [facility] CPT-4: 67121 05/18/2015 ([id number]) OFFICE/OUTPATIENT VISIT EST Diagnosis: Constipation[ICD9: 564.00] Sapna AU DO [facility] CPT-4: 51862 02/22/2015 ([id number]) OFFICE/OUTPATIENT VISIT EST Diagnosis: Thoracic back pain[ICD9: 724.1] Diagnosis: Thoracic degenerative disc disease[ICD9: 722.51] Diagnosis: Scoliosis[ICD9: 737.30] Sapna PARDO DO [facility] CPT-4: 08514 12/02/2014 ([id number]) OFFICE/OUTPATIENT VISIT EST Diagnosis: Thoracic back pain[ICD9: 724.1] Diagnosis: ACTINIC KERATOSIS[ICD9: 702.0] Sapna Calos SHAHQUELINE Jefry Amarjit CALOS MARIE [facility] CPT-4: 84630 08/18/2014 OFFICE/OUTPATIENT VISIT NEW Diagnosis: HYPERTENSION[ICD9: 401.9] Diagnosis: Thoracic back pain[ICD9: 724.1] Diagnosis: GERD[ICD9: 530.81] Diagnosis: Adrenal tumor[ICD9: 239.7] Sapna AU DO [facility] CPT-4: 16373 07/08/2014 ([id number]) OFFICE/OUTPATIENT VISIT NEW Diagnosis: HYPERTENSION[ICD9: 401.9] Diagnosis: GERD[ICD9: 530.81] Sapna LIVE DO [facility] CPT-4: 30527 07/08/2014 Plan of Care Planned Activity Notes Codes Status Date Visit Diagnosis Plan: Allergic rhinitis Discussion: Cl aritin 10mg po BID Call Sunday with how symptoms are doing Will also add famotodine at bedtime to cover for reflux etiology ICD-9 : 477.9 ICD-10 : J30.9 12/19/2019 Appointment: Sapna Live WPtel: [phone] [id number] TELEMEDIC[facility] 12/19/2019 Patient Education: famotidine- [employer] Coupon [id number] [email or web address]/resources/getResource/[email or web address] Completed 12/19/2019 Visit Diagnosis Plan: Infected sebaceous cyst Discussi on: Sent out 1 week of doxycycline ICD-9 : 706.2 ICD-10 : L72.3 11/03/2019 Appointment: Sapna Live WPtel: [address] [place], [place] [id number] [facility] WOUND CARE 11/03/2019 Visit Diagnosis Plan: Local [...] ICD-10 : L08.9 10/27/2019 Appointment: Lashell Joe [address] [place], [place] [id number] ACUTE ILLNESS 10/27/2019 Patient Education: tramadol- [employer] Coupon [id number] [email or web address]/[email or web address]/resources/getResource/[email or web address] Completed 10/27/2019 Visit Plan: Update Low Dose [...] : I35.1 10/02/2019 Appointment: Sapna Live WPtel: [facility] US FOLLOW UP 10/02/2019 Care Plan: Referral Order SNOMED-CT : [id number] Pending 10/02/2019 Visit Diagnosis Plan: Chest pain Discussion: will star t with cxray and rib xray. discussed that could be lung, rib, muscle but will start with cxray and patient may need echo. he verbalized understanding. ICD-9 : 786.50 ICD-10 : R07.9 08/25/2019 Appointment: Lashell Joe [address] [place], [place] [phone] ACUTE ILLNESS 08/25/2019 Visit Diagnosis Plan: Adrenal mass Discussion: patient had ct in january but there was no mention of adrenal mass and reported adrenals as wnl. i called radiology and spoke with dr. logan radiologist who looked at the scan again and noted the adrenal mass to be stable with no change. ICD-9 : 255.8 ICD-10 : E27.8 08/13/2019 Visit Diagnosis Plan: Personal history of [...] ct of lungs to be done at [facility]. ICD-9 : V15.82 ICD-10 : Z87.891 08/13/2019 Visit Diagnosis Plan: Thoracic back pain Discussion: c hronic pain. will refer to dr. stallings at [place] for evaluation and treatment ICD-9 : 724.1 [...] ICD-9 : 593.9 ICD-10 : N28.9 08/13/2019 Appointment: Lashell Joe [address] [facility] FOLLOW UP 08/13/2019 Visit Diagnosis Plan: Renal insufficiency Discussion: Labs discussed Continue off NSAIDS Hydrate Recheck Chemistry 3mos ICD-9 : 593.9 ICD-10 : N28.9 07/03/2019 Visit Diagnosis Plan: Sigmoid diverticulitis Discussio n: Bactrim/Flagyl Mckenzie diet To ER this weekend if worsening ICD-9 : 562.11 ICD-10 : K57.32 07/03/2019 Visit Diagnosis Plan: Jock itch Discussion: Diflucan a nd topical nystatin ICD-9 : 110.3 ICD-10 : B35.6 07/03/2019 Appointment: Sapna Live WPtel: [phone] [id number] FOLLOW UP 07/03/2019 Patient Education: fluconazole- [employer] Coupon [id number] Completed 07/03/2019 Patient Education: nystatin- [employer] Coupon [id number] Completed 07/03/2019 Visit Diagnosis Plan: Disorder of [...] ICD-10 : R25.2 06/05/2019 Appointment: Lashell Joe [address] [place], [place] [id number] NO SHOW - FORGIVEN 06/05/2019 Appointment: Lashell Joe [address] [place], [place] [phone] ACUTE ILLNESS 06/05/2019 Visit Diagnosis Plan: Other pruritus Discussion: discu [...] ICD-9 : 698.9 ICD-10 : L29.8 05/21/2019 Visit Diagnosis Plan: Pain in right knee Discussion: w ill refer to dr. felix due to recurrent issues. ICD-9 : 719.46 ICD-10 : M25.561 05/21/2019 Appointment: Lashell Joe [address] [facility] ACUTE ILLNESS 05/21/2019 Patient Education: hydroxyzine HCl- [employer] Coupon [id number] [email or web address]/samplemd/resources/getResource/61/[email or web address]-[email or web address]-72bo-[email or web address] Completed 05/21/2019 Appointment: Sapna Live WPtel: [address] [place], [place] [id number] 05/19/19 1645---see note put in chart today (km) CANCELED 05/19/2019 Appointment: Sapna Live WPtel: [address] [place] [address] CANCELED 05/05/2019 Appointment: Sapna Live WPtel: [address] [place] [address] UA 04/21/2019 Visit Diagnosis Plan: Snoring Discussion: referral to be sent to dr. georges ent for sleep study due to severity of snoring. ICD-9 : 786.09 ICD-10 : R06.83 02/24/2019 Visit Diagnosis Plan: Diverticulitis of large [...] ICD-10 : K57.32 02/24/2019 Visit Diagnosis Plan: Other constipation Discussion: i ncrease fluid and fiber intake. if no bowel movement in 2 days or if worsening pain, call clinic. ICD-9 : 564.00 ICD-10 : K59.09 02/24/2019 Appointment: Lashell Joe [address] [facility] Hospital Follow Up 02/24/2019 Visit Diagnosis Plan: Diverticulitis of large intestine without perforation or abscess with bleeding Discussion: Continue flagyl and cipro. A dvance diet to bland. BRAT diet advised. Avoid nuts, seeds, popcorn, roughage. RTC if abdominal pain worsens or does not improve. ICD-9 : 562.13 ICD-10 : K57.33 02/04/2019 Appointment: Nancy Mendiola [facility] [address] FOLLOW UP 02/04/2019 Visit Diagnosis Plan: Left [...] ICD-10 : R10.32 01/29/2019 Appointment: Nancy Mendiola [facility] [address] ACUTE ILLNESS 01/29/2019 Care Plan: CT PELVIS [...] ICD-10 : R00.2 12/19/2018 Visit Diagnosis Plan: Gastro-esophageal reflux disease without esophagitis Discussion: Gets EGD next week so will await results ICD-9 : 530.81 ICD-10 : K21.9 12/19/2018 Visit Diagnosis Plan: Dermatitis, unspecified Discussi on: Discussed that the recent rash to his right arm sounds like eczema/contact dermatitis as it was red and dry according to patient and only lasted a few days then went away so will monitor for return ICD-9 : 692.9 ICD-10 : L30.9 12/19/2018 Appointment: Sapna Live WPtel: [phone] [id number] ACUTE ILLNESS 12/19/2018 Visit Diagnosis Plan: Gastro-esophageal reflux disease without esophagitis Discussion: Continue protonix at 40mg daily Hold mobic No NSAIDS Hold all MVs If persists then will need EGD ICD-9 : 530.81 ICD-10 : K21.9 11/11/2018 Appointment: Sapna Live WPtel: [phone] [id number] FOLLOW UP 11/11/2018 Visit Diagnosis Plan: Encounter for gene [facility] adult medical examination without abnormal findings Discussion: up to date on labs. had infl uenza vaccine this season. see other plans for more detailed report. ICD-9 : V70.9 ICD-10 : Z00.00 10/09/2018 Visit Diagnosis Plan: Essential (primary) hypertension Discussion: stable. continue with current medications. ICD-9 : 401.9 ICD-10 : I10 10/09/2018 Visit Diagnosis Plan: Gastro-esophageal reflux disease [...] : K21.9 10/09/2018 Visit Diagnosis Plan: Other postprocedur al complications and disorders of digestive system Discussion: continue with skip torres instructed patient to return to dr. bettencourt [...] ICD-9 : 997.49 ICD-10 : K91.89 10/09/2018 Visit Diagnosis Plan: Personal history of nicotine dep endence Discussion: low dose ct ordered ICD-9 : V15.82 ICD-10 : Z87.891 10/09/2018 Visit Diagnosis Plan: Other intervertebral disc [...] ICD-9 : V76.0 ICD-10 : Z12.2 10/09/2018 Appointment: Lashell Joe [address] [place], [place] [id number] Annual Well Visit 10/09/2018 Patient Education: [email or web address]- [email or web address] Coupon [id number] Completed 10/09/2018 Patient Education: Kegel Exercises Comple catalina 10/09/2018 Patient Education: High Blood Pressure Co mpleted 10/09/2018 Visit Diagnosis Plan: Pain in right knee Discussion: c orticosteroid injection administered as described above. patient tolerated well. instructed to rtc in 3- 4 months if needed for additional injection. ICD-9 : 719.46 ICD-10 : M25.561 02/19/2018 Appointment: Lashell Joe [address] [place] [address] OFFICE SURGERY 02/19/2018 Patient Education: Patient Medication [...] ICD-10 : M25.561 02/12/2018 Appointment: Lashell Joe [address] [place], [place] [id number] ACUTE ILLNESS 02/12/2018 Patient Education: Patient Medication Summary Completed 02/12/2018 Care Plan: X-RAY EXAM OF KNEE 1 OR 2 [place] : [id number] Pending 02/12/2018 Visit Diagnosis Plan: Other chest pain Discussion: ekg ordered to rule out cardiac concerns, will notify patient of any changes. ICD-9 : 786.59 ICD-10 : R07.89 12/03/2017 Visit Diagnosis Plan: Essential (primary) hypertension Discussion: continue with current medications. continue to check bp at home and call office with worsening bp or symptoms. ICD-9 : 401.9 ICD-10 : I10 12/03/2017 Appointment: Lashell Joe [address] [place] [address] ESTABLISHED PATIENT 12/03/2017 Patient Education: Patient Medication Summary Completed 12/03/2017 Visit Diagnosis Plan: Essential (primary) hypertension Discussion: Increase quinapril to 40mg daily BP check in 1month ICD-9 : 401.9 ICD-10 : I10 09/11/2017 Appointment: Sapna Livetel: [address] [place] [address] FOLLOW UP 09/11/2017 Patient Education: Patient Medication Summary Completed 09/11/2017 Appointment: Sapna Live WPtel: [address] [place] [address] RESCHEDULED 08/22/2017 Visit Diagnosis Plan: Left lower quadrant pain Discuss ion: Update colonoscopy ICD-9 : 789.04 ICD-10 : R10.32 08/13/2017 Visit Diagnosis Plan: Essential (primary) hypertension Discussion: Increase quinapril to 20mg daily Follow Up: 1 months ICD-9 : 401.9 ICD-10 : I10 08/13/2017 Visit Diagnosis Plan: Encounter for [facility] adult medical examination without abnormal findings Discussion: Update fasting lab ICD-9 : V70.9 ICD-10 : Z00.00 08/13/2017 Appointment: Sapna Live WPtel: [address] [place] [address] Annual Well Visit 08/13/2017 Patient Education: Patient Medication Summary Completed 08/13/2017 Appointment: Sapna Live WPtel: [address] [place], [place] [id number] THROAT SWAB 02/13/2017 Patient Education: Patient Medication Summary Completed 02/13/2017 Appointment: Sapna Live WPtel: [phone] [facility] BP CHECK 11/17/2016 Patient Education: Patient Medication Summary Completed 11/17/2016 Visit Plan: Due for colonoscopy in 2018 Had shingles shot and flu shot Change quinapril hct to plain quinapril and see if muscles twitches improve Fwup with Dr. Braga Lab discussed Discussed diet/exercise at length Check CT abdomen Recheck 3mos 07/19/2016 Appointment: Sapna Live WPtel: [facility]7 [facility] 07/18 confirmed`sl PHYSICAL 07/19/2016 Patient Education: [...] earliest convenience 06/09/2016 Appointment: Sobia Monreal WPtel: [address] [place], [place] [id number] ACUTE ILLNESS 06/09/2016 Patient Education: Patient Medication Summary Completed 06/09/2016 Referral: Demario Braga WPtel: [facility]8 [facility] [place] Referral Initiated 11/12/2015 Visit Plan: Continue indwelling catheter until follow-up with Dr. Braga Continue Bactrim and Cipro Pyridium TID for Bladder spasms 11/08/2015 Appointment: Chelsie Teixeira WPtel: [facility] ER Follow UP 11/08/2015 Patient Education: Patient Medication Summary Completed 11/08/2015 Ref[facility]: [facility] [place] Referral Initiated 06/21/2015 Visit Plan: Prednisone 20mg daily for 1w nisqually See surgery of cyst removal 06/14/2015 Appointment: Sapna Live WPtel: [address] [place], [place] [phone] [place] 06/11 cn 06/14 cn FOLLOW UP 2014 Patient Education: Patient Medication Summary Completed 06/14/2015 Visit Plan: Warm moist compresses to Lef t shoulder lesion and apply topical Mupirocin twice daily Complete Cephalexin x 7 days as directed Resume Culturelle daily 05/18/2015 Appointment: Chelsie Teixeira WPtel: [address] [place], [place] [id number] ACUTE ILLNESS 05/18/2015 Patient Education: Patient Medication Summary Completed 05/18/2015 Visit Plan: Check fasting lab Use pain m eds prn with miralax on the day that takes pain meds 02/22/2015 Appointment: Sapna Live WPtel: [address] [place], [place] [phone] 02/19 [facility] 02/19 appt confirmed-lb ACUTE ILLNESS 5 Patient Education: Patient Medication Summary Completed 02/22/2015 Visit Plan: Increase neurontin to 300mg q HS Continue flexeril and tramadol Call in 1mo on how higher dose of gabapentin 12/02/2014 Appointment: Sapna Live WPtel: [address] [place], [place] [phone] FOLLOW UP 12/02/2014 Patient Education: Patient Medication Summary Completed 12/02/2014 Referral: Eirc Angelo WPtel: [address] [facility] [place] Referral Appointment Confirmed 09/15/2014 Visit Plan: Proceed with pain doctor for possible injection vs nerve block Trial of lidoderm patch Cryotherapy to lesions as above 08/18/2014 Appointment: Sapna Live WPtel: [phone] [facility] ACUTE ILLNESS 08/18/2014 Patient Education: Patient Medication Summary Completed 08/18/2014 Patient Education: Patient Medication Summary Completed 08/13/2014 Visit Plan: Continue current meds Obtain most recent lab results Check thoracic spine x-rays Needs updated CT scan of adrenal tumor 07/08/2014 Appointment: Sapna Live WPtel: [phone] [facility] 07/07 vm NEW PATIENT 07/08/2014 Patient Education: Patient Medication Summary Completed 07/08/2014 Patient Education: Patient Medication Summary Completed 07/08/2014 Referral: Suhail Cardenas WPtel: [phone] [address] [place] Referral Completed Referral: Toby Bettencourt WPtel: [address] [place] [address] [address] [id number] [place] Referral Completed Referral: Rosario Monahan WPtel: [address] [place] Referral Appointment Requested Instructions [...]
--- OUTSIDE RECORDS SUMMARY | 2020-02-05 07:49 | XMS REPORT | CCD ---
Author Author Jai Live D.O. Organization [facility] Address [address] [place] [address] Phone Care Team Providers Care Ict Customer Support Officer Name Role Phone Sapna Live D.O., PP Unavailable CCM Unavailable Summary Purpose Interface Exchange Insurance Providers Payer name Policy type / Coverage type Covered green party ID Effective Begin Date Effective End Date GPA Commercial Insurance [id number] 2019 Unknown Family history Mother Diagnosis Age At Onset Cancer Unknown Father Diagnosis Age At Onset Congestive heart failure Unknown Coronary Artery Disease(CAD) Unknown Social History Social History Element Codes Description Effective Dates Tobacco history SNOMED CT: 3588338 Former smoker 10/09/2018 Marital status Unknown 07/08/2014 Number of children Unknown 1 07/08/2014 Employment Unknown Currently employed [employer] 07/08/[address]: 998979475 Never drinks alcohol 2013 Has the patient [...] Start Date Stop Date Status Fill Instructions Move Free Joint Health 750 mg-100 mg-1.65 mg-108 mg tablet R xNorm: 1 Tablet(s) Oral QD 12/19/2019 No Stop Date Active Vitamin D3 1000 units Capsule RxNorm: 3 Capsule(s) Oral QD No Stop Date Active Probiotic 5 billion cell sprinkle capsule RxNorm: 1 Caps ule(s) Oral QD 12/19/2019 No Stop Date Active famotidine 20 mg tablet RxNorm: 821464 1 Tablet(s) Oral QPM for postnasal drip/stomach 12/19/2019 01/18/2020 Active tramadol 50 mg tablet RxNorm: 274031 1 Tablet(s) Oral t hree times a day as needed for pain along with two tylenol 12/03/2019 No Stop Date Active doxycycline hyclate 100 mg capsule RxNorm: 5777309 1 Cap lee(s) Oral two times a day 11/03/2019 11/02/2019 Inactive doxycycline hyclate 100 mg capsule RxNorm: 2722021 1 Cap lee(s) Oral two times a day 11/03/2019 11/10/2019 Inactive tramadol 50 mg tablet RxNorm: 037557 1 Tablet(s) Oral t hree times a day as needed for pain along with two tylenol 10/27/2019 10/26/2019 Inactive tramadol 50 mg tablet RxNorm: 880388 1 Tablet(s) Oral t hree times a day as needed for pain along with two tylenol 10/27/2019 10/27/2019 Inactive cyclobenzaprine 10 mg tablet RxNorm: 940113 1 Tablet(s) Oral th ree times a day 10/27/2019 12/18/2019 Inactive Bactrim DS 800 mg-160 mg tablet RxNorm: 711804 1 Tablet(s) Oral two times a day 10/27/2019 11/03/2019 Inactive Bactrim DS 800 mg-160 mg tablet RxNorm: 693684 1 Tablet(s) Oral two times a day 10/27/2019 10/26/2019 Inactive tramadol 50 mg tablet RxNorm: 765754 1 Tablet(s) Oral t hree times a day as needed for pain along with two tylenol 09/29/2019 10/26/2019 Inactive quinapril 40 mg tablet RxNorm: 074031 1 Tablet(s) Oral QD 09/18/2019 03/15/2020 Active Patient requests 90 days supply tramadol 50 mg tablet RxNorm: 824621 1 Tablet(s) Oral t hree times a day as needed for pain along with two tylenol 08/28/2019 08/28/2019 Inactive tramadol 50 mg tablet RxNorm: 356506 1 Tablet(s) PO TID as needed for pain along with two tylenol 08/25/2019 08/27/2019 Inactive pantoprazole 40 mg tablet,delayed release RxNorm: 692208 1 Tabl et(s) Oral QD 08/13/2019 No Stop Date Active Vitamin D3 1,000 unit capsule RxNorm: 277868 1 Capsule(s) Oral QD 1 10/13/2018 12/18/2019 Inactive tamsulosin 0.4 mg capsule RxNorm: 803749 1 Capsule(s) Oral QPM 07/2612/18/2019 Inactive Protonix 40 mg tablet,delayed release RxNorm: 284251 TA KE 1 TABLET BY MOUTH TWICE A DAY 08/04/2019 08/12/2019 Inactive Flagyl 500 mg tablet RxNorm: 165558 1 Tablet(s) Oral three time s a day 07/03/2019 07/13/2019 Inactive fluconazole 100 mg tablet RxNorm: 424477 1 Tablet(s) Oral QD 201807/10/2019 Inactive Bactrim DS 800 mg-160 mg tablet RxNorm: 921607 1 Tablet(s) Oral two times a day 07/03/2019 07/13/2019 Inactive nystatin 100,000 unit/gram topical cream RxNorm: 397594 Application Topical two times a day 07/03/2019 08/12/2019 Inactive gabapentin 600 mg tablet RxNorm: 519250 Tablet(s) TAKE 1 TABLET BY MOUTH EVERY NIGHT AT BEDTIME 06/25/2019 08/12/2019 Inactive - First Attempt Ref: [id number] quinapril 40 mg tablet RxNorm: 197632 1 Tablet(s) Oral QD 06/23/2019 09/17/2019 Inactive Patient requests 90 days supply tramadol 50 mg tablet RxNorm: 489769 1 Tablet(s) PO TID as needed for pain along with two tylenol 05/23/2019 08/24/2019 Inactive hydroxyzine HCl 25 mg tablet RxNorm: 156457 1 Tablet(s) PO TID as needed 05/21/2019 08/12/2019 Inactive Elimite 5 % topical cream RxNorm: 775275 1 Application TOP QHS apply head to toe and was off in morning 05/19/2019 07/02/2019 Inactive Protonix 40 mg tablet,delayed release RxNorm: 661945 1 Tablet(s ) PO BID 05/05/2019 08/02/2019 Inactive - First Attempt Ref: [id number] gabapentin 600 mg tablet RxNorm: 625483 Tablet(s) TAKE 1 TABLET BY MOUTH EVERY NIGHT AT BEDTIME 04/25/2019 06/24/2019 Inactive - First Attempt Ref: [id number] tramadol 50 mg tablet RxNorm: 024169 1 Tablet(s) PO TID as needed for pain along with two tylenol 04/21/2019 05/22/2019 Inactive quinapril 40 mg tablet RxNorm: 044407 1 Tablet(s) PO QD 04/01/2019 Inactive Patient requests 90 days supply fenofibrate micronized 134 mg capsule RxNorm: 150414 1 Capsule(s) PO QD Due for updated fasting labs 03/31/2019 08/12/2019 Inactive dicyclomine 10 mg capsule RxNorm: 709164 1 Capsule(s) PO TID as needed 02/24/2019 05/20/2019 Inactive Flagyl 500 mg tablet RxNorm: 413892 1 Tablet(s) PO Q8H 02/24/201908/2019 Inactive ciprofloxacin 500 mg tablet RxNorm: 802611 1 Tablet(s) PO BID 02/2403/09/2019 Inactive Flagyl 500 mg tablet RxNorm: 476870 1 Tablet(s) PO Q6H 01/30/2019 Inactive ciprofloxacin 500 mg tablet RxNorm: 910991 1 Tablet(s) PO BID 01/3001/29/2019 Inactive Flagyl 500 mg tablet RxNorm: 378521 1 Tablet(s) PO Q6H 01/30/201904/2019 Inactive ciprofloxacin 500 mg tablet RxNorm: 904008 1 Tablet(s) PO BID 01/3002/05/2019 Inactive gabapentin 600 mg tablet RxNorm: 862729 TAKE 1 TABLET B Y MOUTH EVERY NIGHT AT BEDTIME 01/27/2019 04/24/2019 Inactive - First Attempt Ref: [id number] tramadol 50 mg tablet RxNorm: 415725 1 Tablet(s) PO TID as needed for pain along with two tylenol 01/08/2019 04/20/2019 Inactive fenofibrate micronized 134 mg capsule RxNorm: 891052 1 Capsule(s) PO QD Due for updated fasting labs 01/02/2019 03/30/2019 Inactive quinapril 40 mg tablet RxNorm: 904747 1 Tablet(s) PO QD 01/01/2019 Inactive Patient requests 90 days supply Protonix 40 mg tablet,delayed release RxNorm: 814654 TA KE 1 TABLET BY MOUTH TWICE A DAY 01/01/2019 03/31/2019 Inactive - First Attempt Ref: [id number] Protonix 40 mg tablet,delayed release RxNorm: 267435 TA KE 1 TABLET BY MOUTH TWICE A DAY 12/25/2018 12/31/2018 Inactive - First Attempt Ref: [id number] gabapentin 600 mg tablet RxNorm: 136213 TAKE 1 TABLET B Y MOUTH EVERY NIGHT AT BEDTIME 12/02/2018 01/26/2019 Inactive - First Attempt Ref: [id number] Protonix 40 mg tablet,delayed release RxNorm: 809648 1 Tablet(s ) PO BID 11/11/2018 12/24/2018 Inactive Protonix 40 mg tablet,delayed release RxNorm: 289959 1 Tablet(s ) PO BID 10/09/2018 11/10/2018 Inactive gabapentin 600 mg tablet RxNorm: 065674 1 Tablet(s) PO QHS 10/09/1912/01/2018 Inactive quinapril 40 mg tablet RxNorm: 549725 1 Tablet(s) PO QD 1 TABLE T(S) PO QD 08/08/2018 08/07/2018 Inactive Patient requests 9 0 days supply quinapril 40 mg tablet RxNorm: 655254 1 Tablet(s) PO QD 08/08/2018 Inactive Patient requests 90 days supply meloxicam 15 mg tablet RxNorm: 462765 1 Tablet(s) PO QD 08/08/2018 Inactive gabapentin 300 mg capsule RxNorm: 457972 1 CAPSULE(S) P O QHS DUE FOR WELLNESS VISIT 08/07/2018 10/08/2018 Inactive due for followup meloxicam 15 mg tablet RxNorm: 068808 Tablet(s) 1 TABLET(S) PO QD 1 10/07/2017 08/07/2018 Inactive fenofibrate micronized 134 mg capsule RxNorm: 460796 1 Capsule(s) PO QD Needs updated fasting labs!!!!!! 07/08/2018 07/07/2018 Inactive fenofibrate micronized 134 mg capsule RxNorm: 208076 1 Capsule( s) PO QD 07/08/2018 01/01/2019 Inactive fenofibrate micronized 134 mg capsule RxNorm: 187405 1 Capsule(s) PO QD Needs updated fasting labs!!!!!! 06/21/2018 07/08/2018 Inactive Medrol (Daniel) 4 mg tablets in a dose pack RxNorm: 107211 Tablet(s) PO As Directed 05/06/2018 05/05/2018 Inactive Medrol (Daniel) 4 mg tablets in a dose pack RxNorm: 249506 Tablet(s) PO As Directed 05/06/2018 08/07/2018 Inactive quinapril 40 mg tablet RxNorm: 934037 1 TABLET(S) PO QD 05/02/2018 Inactive Patient requests 90 days supply fenofibrate micronized 134 mg capsule RxNorm: 980396 1 Capsule(s) PO QD Needs updated fasting labs 04/29/2018 05/28/2018 Inactive Move Free Joint Health 750 mg-100 mg-1.65 mg-108 mg tablet R xNorm: 1 Tablet(s) PO QD 02/12/2018 03/13/2018 Inactive fenofibrate micronized 134 mg capsule RxNorm: 313060 Ca psule(s) 1 CAPSULE(S) PO QD 01/29/2018 06/21/2018 Inactive quinapril 40 mg tablet RxNorm: 690210 1 TABLET(S) PO QD 11/26/2017 Inactive Patient requests 90 days supply fenofibrate micronized 134 mg capsule RxNorm: 606438 1 CAPSULE( S) PO QD 11/06/2017 01/29/2018 Inactive gabapentin 300 mg capsule RxNorm: 362116 1 CAPSULE(S) P O QHS DUE FOR WELLNESS VISIT 10/24/2017 07/20/2018 Inactive due for followup meloxicam 15 mg tablet RxNorm: 725460 1 TABLET(S) PO QD 10/24/2017 Inactive quinapril 40 mg tablet RxNorm: 581285 1 Tablet(s) PO QD 10/24/2017 Inactive fenofibrate micronized 134 mg capsule RxNorm: 078603 1 Capsule( s) PO QD 08/22/2017 11/05/2017 Inactive fenofibrate micronized 134 mg capsule RxNorm: 789459 1 Capsule( s) PO QD 08/22/2017 08/21/2017 Inactive quinapril 20 mg tablet RxNorm: 207483 1 Tablet(s) PO QD 08/13/2017 Inactive gabapentin 300 mg capsule RxNorm: 557919 1 Capsule(s) P O QHS Due for wellness visit 08/06/2017 10/23/2017 Inactive due for followup gabapentin 300 mg capsule RxNorm: 200711 1 Capsule(s) P O QHS Due for wellness visit 08/02/2017 08/05/2017 Inactive due for followup meloxicam 15 mg tablet RxNorm: 356663 1 Tablet(s) PO QD 08/01/2017 Inactive gabapentin 300 mg capsule RxNorm: 685539 1 Capsule(s) P O QHS Due for wellness visit 08/01/2017 08/01/2017 Inactive due for followup gabapentin 300 mg capsule RxNorm: 172581 1 Capsule(s) P O QHS Due for wellness visit 08/01/2017 08/02/2017 Inactive gabapentin 300 mg capsule RxNorm: 096320 1 Capsule(s) PO QHS 201605/12/2017 Inactive quinapril 10 mg tablet RxNorm: 447412 1 Tablet(s) PO QD replace s quinapril hct 02/12/2017 08/12/2017 Inactive meloxicam 15 mg tablet RxNorm: 855225 1 Tablet(s) PO QD 02/05/2017 Inactive quinapril 10 mg tablet RxNorm: 902107 1 Tablet(s) PO QD replace s quinapril hct 11/16/2016 02/12/2017 Inactive gabapentin 300 mg capsule RxNorm: 512260 1 Capsule(s) PO QHS 201602/12/2017 Inactive quinapril 10 mg tablet RxNorm: 229468 1 Tablet(s) PO QD replace s quinapril hct 10/16/2016 11/15/2016 Inactive gabapentin 300 mg capsule RxNorm: 415923 1 Capsule(s) PO QHS 201511/15/2016 Inactive quinapril 10 mg tablet RxNorm: 117825 1 Tablet(s) PO QD replace s quinapril hct 07/19/2016 10/15/2016 Inactive meloxicam 15 mg tablet RxNorm: 671724 1 Tablet(s) PO QD 07/10/2016 Inactive meloxicam 15 mg tablet RxNorm: 084019 TAKE ONE TABLET BY MOUTH LUKE Y 07/10/2016 07/09/2016 Inactive meloxicam 15 mg tablet RxNorm: 636755 1 Tablet(s) PO QD 07/06/2016 Inactive meloxicam 15 mg tablet RxNorm: 639336 1 Tablet(s) PO QD 06/09/2016 Inactive Multivitamin & Mineral Formula tablet RxNorm: 1 Tablet(s) PO Q D 06/02/2016 07/01/2016 Inactive tamsulosin 0.4 mg capsule RxNorm: 380135 1 Capsule(s) PO QHS 201507/01/2016 Inactive Move Free Joint Health 750 mg-100 mg-1.65 mg-108 mg tablet R xNorm: 1 Tablet(s) PO QD 06/02/2016 07/01/2016 Inactive gabapentin 300 mg capsule RxNorm: 317860 1 Capsule(s) PO QHS 201508/27/2016 Inactive gabapentin 300 mg capsule RxNorm: 021245 Capsule(s) ALFONZO E ONE CAPSULE BY MOUTH AT BEDTIME 02/28/2016 05/27/2016 Inactive quinapril 10 mg-hydrochlorothiazide 12.5 mg tablet RxNorm: 3 87053 Tablet(s) TAKE ONE TABLET BY MOUTH EVERY MORNING 01/14/2016 07/18/2016 Inactive gabapentin 300 mg capsule RxNorm: 326346 TAKE ONE CAPSULE BY MO [facility] AT BEDTIME 12/28/2015 02/27/2016 Inactive Urecholine 25 mg tablet RxNorm: 046917 1 Tablet(s) PO TID 11/09/2015 07/18/2016 Inactive phenazopyridine 100 mg tablet RxNorm: 9698771 1 Tablet(s ) PO TID as needed for bladder spasms. 11/08/2015 11/08/2015 Inactive quinapril 10 mg-hydrochlorothiazide 12.5 mg tablet RxNorm: 3 53540 TAKE ONE TABLET BY MOUTH EVERY MORNING 10/15/2015 01/13/2016 Inactive gabapentin 300 mg capsule RxNorm: 544091 1 Tablet(s) PO QD TAKE ONE CAPSULE BY MOUTH EVERY NIGHT AT BEDTIME 09/23/2015 12/21/2015 Inactive quinapril 10 mg-hydrochlorothiazide 12.5 mg tablet RxNorm: 3 90442 Tablet(s) TAKE ONE TABLET BY MOUTH EVERY MORNING 07/14/2015 10/14/2015 Inactive gabapentin 300 mg capsule RxNorm: 440276 1 Tablet(s) PO QD TAKE ONE CAPSULE BY MOUTH EVERY NIGHT AT BEDTIME 06/25/2015 09/23/2015 Inactive prednisone 20 mg tablet RxNorm: 264050 1 Tablet(s) PO QD 06/14/2015 0 06/20/2015 Inactive cephalexin 500 mg capsule RxNorm: 906733 1 Capsule(s) PO BID 201405/27/2015 Inactive mupirocin 2 % topical ointment RxNorm: 943117 TOP BID 05/18/2015 0 06/13/2015 Inactive quinapril 10 mg-hydrochlorothiazide 12.5 mg tablet RxNorm: 3 15469 Tablet(s) TAKE ONE TABLET BY MOUTH EVERY MORNING 04/06/2015 07/14/2015 Inactive gabapentin 300 mg capsule RxNorm: 954062 1 Capsule(s) PO QHS 201404/01/2015 Inactive [SAVINGS FOR NON-COVERED LILIANA GS -- BIN:236405, PCN: ASPROD1, Group: XXXXX, ID# [id number], Questions: . THIS IS NOT INSURANCE.] gabapentin 300 mg capsule RxNorm: 038812 1 Capsule(s) PO QHS 201406/25/2015 Inactive [SAVINGS FOR NON-COVERED LILIANA GS -- BIN:405943, PCN: ASPROD1, Group: XXXXX, ID# [id number], Questions: . THIS IS NOT INSURANCE.] quinapril 10 mg-hydrochlorothiazide 12.5 mg tablet RxNorm: 3 88955 TAKE ONE TABLET BY MOUTH EVERY MORNING 12/11/2014 04/05/2015 Inactive gabapentin 300 mg capsule RxNorm: 448083 1 Capsule(s) PO QHS 201404/02/2015 Inactive [SAVINGS FOR NON-COVERED LILIANA GS -- BIN:694693, PCN: ASPROD1, Group: XXXXX, ID# [id number], Questions: . THIS IS NOT INSURANCE.] cyclobenzaprine 10 mg tablet RxNorm: 380399 1 Tablet(s) PO TID as needed for muscle spasm for muscle spasm 12/02/2014 02/21/2015 Inactive [S AVINGS FOR NON- COVERED DRUGS -- BIN:833644, PCN: ASPROD1, Group: XXXXX, ID# [id number], Questions: . THIS IS NOT INSURANCE.] gabapentin 100 mg capsule RxNorm: 863425 1 Capsule(s) PO QHS 201412/01/2014 Inactive [SAVINGS FOR NON-COVERED LILIANA GS -- BIN:492034, PCN: ASPROD1, Group: XXXXX, ID# [id number], Questions: . THIS IS NOT INSURANCE.] ibuprofen 800 mg tablet RxNorm: 042036 1 Tablet(s) PO T ID as needed low back pain 11/11/2014 11/23/2014 Inactive [SAVINGS FOR NON -COVERED DRUGS -- BIN:711165, PCN: ASPROD1, Group: XXXXX, ID# [id number], Questions: . THIS IS NOT INSURANCE.] ibuprofen 800 mg tablet RxNorm: 690908 1 Tablet(s) PO T ID as needed low back pain 11/09/2014 11/10/2014 Inactive [SAVINGS FOR NON -COVERED DRUGS -- BIN:742051, PCN: ASPROD1, Group: XXXXX, ID# [id number], Questions: . THIS IS NOT INSURANCE.] Zorvolex 35 mg capsule RxNorm: 9869159 1 Tablet(s) PO TID 08/27/2014 10/01/2014 Inactive [SAVINGS FOR UNINSURED PATIENTS -- BIN:0 79177, PCN: ASPROD1, Group: AME08, ID# [id number], Process claim through [employer], for questions: . THIS IS NOT INSURANCE.] quinapril 10 mg-hydrochlorothiazide 12.5 mg tablet RxNorm: 3 11953 1 Tablet(s) PO QAM 08/27/2014 11/24/2014 Inactive Lidoderm 5 % (700 mg/patch) adhesive patch RxNorm: 6764779 Application TOP for 12hours then off for pain 08/18/2014 02/21/2015 Inactive [SAVIN GS FOR UNINSURED PATIENTS -- BIN:765504, PCN: ASPROD1, Group: AME08, ID# [id number], Process claim through [employer], for questions: . THIS IS NOT INSURANCE.] Zorvolex 35 mg capsule RxNorm: 9032540 1 Tablet(s) PO TID 08/13/2014 08/12/2014 Inactive Zorvolex 35 mg capsule RxNorm: 2543866 1 Tablet(s) PO TID 08/13/2014 08/24/2014 Inactive [SAVINGS FOR UNINSURED PATIENTS -- BIN:0 33444, PCN: ASPROD1, Group: AME08, ID# [id number], Process claim through [employer], for questions: . THIS IS NOT INSURANCE.] Aspirin Child 81 mg chewable tablet RxNorm: 381495 1 Tablet(s) PO QD No Start Date Active ibuprofen 800 mg tablet RxNorm: 884408 1 Tablet(s) PO T ID as needed low back pain No Start Date 11/08/2014 Inactive cyclobenzaprine 10 mg tablet RxNorm: 945065 1 Tablet(s) PO TID No S tart Date 08/12/2017 Inactive garlic 1,000 mg capsule RxNorm: 023332 1 Capsule(s) PO QD No Start Date 04/22/2019 Inactive tramadol 50 mg tablet RxNorm: 100560 1 Tablet(s) PO Q4-6H as ne eded for pain No Start Date 02/21/2015 Inactive tramadol 50 mg tablet RxNorm: 825508 1 Tablet(s) PO TID as needed for pain along with two tylenol No Start Date 01/07/2019 Inactive krill oil oral RxNorm: 80634 oral No Start Date 11/11/2018 Inacti ve Vitamin D3 2,000 unit tablet RxNorm: 192104 1 Tablet(s) PO QD No St art Date 08/12/2019 Inactive gabapentin 100 mg tablet RxNorm: 849838 1 Tablet(s) PO QD No Start Date 11/10/2014 Inactive Zofran 4 mg tablet RxNorm: 406536 1 Tablet(s) PO Q6H as needed No S tart Date 08/12/2019 Inactive Elimite 5 % topical cream RxNorm: 556295 1 Application TOP QHS apply head to toe and was off in morning No Start Date 05/18/2019 Inactive gabapentin 100 mg capsule RxNorm: 510896 1 Capsule(s) PO QHS No Sta rt Date 11/10/2014 Inactive aspirin 325 mg tablet RxNorm: 282628 2 Tablet(s) PO QD No Start Date 08/17/2014 Inactive Fish Oil 1,000 mg capsule RxNorm: 1 Capsule(s) PO QD No Start Date 10/08/2018 Inactive quinapril 10 mg-hydrochlorothiazide 12.5 mg tablet RxNorm: 3 22669 1 Tablet(s) PO QAM No Start Date 08/26/2014 Inactive quinapril 40 mg tablet RxNorm: 492437 1 Tablet(s) PO QD No Start Da te 10/23/2017 Inactive Medrol (Daniel) 4 mg tablets in a dose pack RxNorm: 146011 Tablet(s) PO As Directed No Start Date 05/05/2018 Inactive Urecholine 25 mg tablet RxNorm: 843435 1 Tablet(s) PO TID No Start Date 11/08/2015 Inactive cyclobenzaprine 10 mg tablet RxNorm: 007790 1/2-1 Table t(s) PO TID as needed for muscle spasm No Start Date 12/01/2014 Inactive tamsulosin 0.4 mg capsule RxNorm: 664071 2 Capsule(s) PO QPM No Sta rt Date 08/12/2019 Inactive hydrocodone 5 mg-acetaminophen 325 mg tablet RxNorm: 207839 1 -2 Tablet(s) PO Q6H as needed No Start Date 05/20/2019 Inactive loratadine 10 mg tablet RxNorm: 849443 1 Tablet(s) PO QD No Start D ate 07/07/2014 Inactive Medication Administered No Medication Administered data Immunizations Vaccine Codes Date Status Influenza CVX: 141 07/21/2019 Results Observation Observation Code Item Item Code Result Date S f f [facility] Location CULTURE, AEROBIC BACTERIA 01679 CULTURE, AEROBIC BACTERIA SEE NOTE 10/30/2019 Zay Becerra [address] [place] [address] CULTURE, URINE, ROUTINE 395 CULTURE SEE NOTE 1 10/15/2018 Zay Becerra [address] [place] [address] CULTURE, URINE, ROUTINE 395 CULTURE, URINE, ROUTINE SEE NOTE 08/15/2019 Zay Becerra [address] [place] [address] CBC (H/H, RBC, INDICES, WBC, PLT) 71762 WHITE BLOOD CELL COU NT 7.9 Thousand/uL 08/14/2019 Zay Becerra [address] [place] [address] CBC (H/H, RBC, INDICES, WBC, PLT) 76816 RED BLOOD CELL COUNT 4.93 Million/uL 08/14/[address] [facility] [address] CBC (H/H, RBC, INDICES, WBC, PLT) 14036 HEMOGLOBIN 15 .4 g/dL 08/14/[address] [facility] [address] CBC (H/H, RBC, INDICES, WBC, PLT) 16567 HEMATOCRIT 45 .0 % 08/14/2019 [facility] [address] CBC (H/H, RBC, INDICES, WBC, PLT) 24608 MCV 91 .3 fL 08/14/2019 [facility] [address] CBC (H/H, RBC, INDICES, WBC, PLT) 13013 MCH 31 .2 pg 08/14/[address] [address] CBC (H/H, RBC, INDICES, WBC, PLT) 75567 MCHC 34 .2 g/dL 08/14/[address] [facility] [address] CBC (H/H, RBC, INDICES, WBC, PLT) 19992 RDW 12 .7 % 08/14/[address] [facility] [address] CBC (H/H, RBC, INDICES, WBC, PLT) 16388 PLATELET COUNT 214 Thousand/uL 08/14/2019 [facility] [address] CBC (H/H, RBC, INDICES, WBC, PLT) 66670 MPV 11 .5 fL 08/14/[address] [facility] [address] COMPREHENSIVE METABOLIC PANEL 30125 Glucose 113 mg /dL 08/14/2019 [facility] [address] COMPREHENSIVE METABOLIC PANEL 40732 UREA NITROGEN (BUN) 16 mg/dL 08/14/[address] [facility] [address] COMPREHENSIVE METABOLIC PANEL 79635 CREATININE 0.86 m g/dL 08/14/[address] [facility] [address] COMPREHENSIVE METABOLIC PANEL 20872 eGFR NON-AFR. PERUVIAN 92 mL/min/1.73m2 08/14/2019 [facility] [address] [address] COMPREHENSIVE METABOLIC PANEL 36198 eGFR 106 mL/min/1.73m2 08/14/2019 [facility] [address] [address] COMPREHENSIVE METABOLIC PANEL 34015 BUN/CREATININE RATIO NOT APPLICABLE (calc) 08/14/2019 [facility] [address] [address] COMPREHENSIVE METABOLIC PANEL 62215 SODIUM 141 mm ol/L 08/14/2019 [facility] [address] [address] COMPREHENSIVE METABOLIC PANEL 33733 POTASSIUM 4.1 mm ol/L 08/14/2019 [facility] [address] [address] COMPREHENSIVE METABOLIC PANEL 44066 CHLORIDE 102 mm ol/L 08/14/[address] [facility] [address] COMPREHENSIVE METABOLIC PANEL 45431 CARBON DIOXIDE 28 mmol/L 08/14/2019 [facility] [address] [address] COMPREHENSIVE METABOLIC PANEL 01193 CALCIUM 9.7 mg /dL 08/14/2019 [facility] [address] [address] COMPREHENSIVE METABOLIC PANEL 49622 PROTEIN, TOTAL 6. 7 g/dL 08/14/2019 [facility] [address] [address] COMPREHENSIVE METABOLIC PANEL 47339 ALBUMIN 4.3 g/ dL 08/14/2019 [facility] [address] [address] COMPREHENSIVE METABOLIC PANEL 81491 GLOBULIN 2.4 g/ dL(calc) 08/14/2019 [facility] [address] [address] COMPREHENSIVE METABOLIC PANEL 10564 ALBUMIN/GLOBULIN RATIO 1.8 (calc) 08/14/2019 [facility] [address] [address] COMPREHENSIVE METABOLIC PANEL 25289 BILIRUBIN, TOTAL 1.0 mg/dL 08/14/[address] [facility] [address] COMPREHENSIVE METABOLIC PANEL 86492 ALKALINE PHOSPHATASE 56 U/L 08/14/[address] [facility] [address] COMPREHENSIVE METABOLIC PANEL 51173 AST 18 U/L 08/14/[address] [facility] [address] COMPREHENSIVE METABOLIC PANEL 32050 ALT 28 U/L 08/14/[address] [facility] [address] MAGNESIUM 86639 MAGNESIUM 2.0 mg/dL 06/06/[address] [facility] [address] COMPREHENSIVE METABOLIC PANEL 46497 Glucose 106 mg /dL 06/06/[address] [facility] [address] COMPREHENSIVE METABOLIC PANEL 71812 UREA NITROGEN (BUN) 22 mg/dL 06/06/[address] [facility] [address] COMPREHENSIVE METABOLIC PANEL 26660 CREATININE 1.29 m g/dL 06/06/[address] [facility] [address] COMPREHENSIVE METABOLIC PANEL 30039 eGFR NON-AFR. PERUVIAN 58 mL/min/1.73m2 06/06/2019 [facility] [address] COMPREHENSIVE METABOLIC PANEL 18803 eGFR 67 mL/min/1.73m2 06/06/[address] [facility] [address] COMPREHENSIVE METABOLIC PANEL 78676 BUN/CREATININE RATIO 17 (calc) 06/06/[address] [facility] [address] COMPREHENSIVE METABOLIC PANEL 45223 SODIUM 138 mm ol/L 06/06/[address] [facility] [address] COMPREHENSIVE METABOLIC PANEL 99076 POTASSIUM 4.2 mm ol/L 06/06/[address] [facility] [address] COMPREHENSIVE METABOLIC PANEL 67860 CHLORIDE 101 mm ol/L 06/06/[address] [facility] [address] COMPREHENSIVE METABOLIC PANEL 23621 CARBON DIOXIDE 29 mmol/L 06/06/[address] [facility] [address] COMPREHENSIVE METABOLIC PANEL 36873 CALCIUM 9.6 mg /dL 06/06/2019 [facility] [address] COMPREHENSIVE METABOLIC PANEL 09860 PROTEIN, TOTAL 6. 9 g/dL 06/06/2019 [facility] [address] COMPREHENSIVE METABOLIC PANEL 27990 ALBUMIN 4.4 g/ dL 06/06/2019 [facility] [address] COMPREHENSIVE METABOLIC PANEL 49142 GLOBULIN 2.5 g/ dL(calc) 06/06/[address] [address] COMPREHENSIVE METABOLIC PANEL 44632 ALBUMIN/GLOBULIN RATIO 1.8 (calc) 06/06/2019 [facility] [address] COMPREHENSIVE METABOLIC PANEL 66737 BILIRUBIN, TOTAL 0.7 mg/dL 06/06/2019 [facility] [address] COMPREHENSIVE METABOLIC PANEL 49209 ALKALINE PHOSPHATASE 45 U/L 06/06/2019 [facility] [employer] [address] COMPREHENSIVE METABOLIC PANEL 86341 AST 21 U/L 06/06/2019 [facility] [address] COMPREHENSIVE METABOLIC PANEL 33177 ALT 34 U/L 06/06/2019 [facility] [address] CULTURE, URINE, ROUTINE 395 CULTURE, URINE, ROUTINE SEE NOTE 04/23/2019 [facility] [address] CULTURE, URINE, ROUTINE 395 CULTURE SEE NOTE 0 04/23/2019 [facility] [address] EXTRA 1014 EXTRA TUBE RECEIVED 04/22 [facility] Becerra [address] [place] [address] EXTRA 1014 SPECIMEN TYPE RECEIVED: LAV 0 04/22/[address] [facility] [address] [address] COMPREHENSIVE METABOLIC PANEL 58214 Glucose 94 mg/ dL 04/22/2019 [facility] [address] [address] COMPREHENSIVE METABOLIC PANEL 99382 UREA NITROGEN (BUN) 20 mg/dL 04/22/2019 [facility] [address] [address] COMPREHENSIVE METABOLIC PANEL 25695 CREATININE 1.30 m g/dL 04/22/2019 [facility] [address] [address] COMPREHENSIVE METABOLIC PANEL 92698 eGFR NON-AFR. PERUVIAN 58 mL/min/1.73m2 04/22/2019 [facility] [address] [address] COMPREHENSIVE METABOLIC PANEL 16784 eGFR 67 mL/min/1.73m2 04/22/2019 [facility] [address] [address] COMPREHENSIVE METABOLIC PANEL 68260 BUN/CREATININE RATIO 15 (calc) 04/22/2019 [facility] [address] [address] COMPREHENSIVE METABOLIC PANEL 82057 SODIUM 139 mm ol/L 04/22/2019 [facility]osticsChiragStallings [address] [address] COMPREHENSIVE METABOLIC PANEL 37177 POTASSIUM 4.2 mm ol/L 04/22/2019 [facility] [address] [address] COMPREHENSIVE METABOLIC PANEL 69288 CHLORIDE 104 mm ol/L 04/22/2019 [facility] [address] [address] COMPREHENSIVE METABOLIC PANEL 94818 CARBON DIOXIDE 27 mmol/L 04/22/2019 [facility] [address] [address] COMPREHENSIVE METABOLIC PANEL 62317 CALCIUM 9.9 mg /dL 04/22/2019 [facility] [address] [address] COMPREHENSIVE METABOLIC PANEL 45034 PROTEIN, TOTAL 7. 1 g/dL 04/22/2019 [facility] [address] COMPREHENSIVE METABOLIC PANEL 78499 ALBUMIN 4.6 g/ dL 04/22/2019 [facility] [address] COMPREHENSIVE METABOLIC PANEL 20018 GLOBULIN 2.5 g/ dL(calc) 04/22/2019 [facility] [address] COMPREHENSIVE METABOLIC PANEL 49171 ALBUMIN/GLOBULIN RATIO 1.8 (calc) 04/22/2019 [facility] [address] COMPREHENSIVE METABOLIC PANEL 23324 BILIRUBIN, TOTAL 0.4 mg/dL 04/22/2019 [facility] [address] COMPREHENSIVE METABOLIC PANEL 27645 ALKALINE PHOSPHATASE 53 U/L 04/22/2019 [facility] [address] COMPREHENSIVE METABOLIC PANEL 37896 AST 21 U/L 04/22/2019 [facility] [address] COMPREHENSIVE METABOLIC PANEL 28394 ALT 34 U/L 04/22/2019 [facility] [address] CULTURE, URINE, ROUTINE 395 CULTURE, URINE, ROUTINE SEE NOTE 01/31/[address] [address] Procedures Procedure Codes Date CULTURE, AEROBIC BACTERIA CPT-4: 55073 10/27/2019 URINALYSIS NONAUTO W/O SCOPE CPT-4: 52143 10/02/2019 URINE CULTURE/ COLONY COUNT CPT-4: 22727 10/02/2019 ROUTINE VENIPUNCTURE CPT-4: 01840 08/13/2019 URINALYSIS NONAUTO W/O SCOPE CPT-4: 56029 08/13/2019 CULTURE, URINE, ROUTINE CPT-4: 395 08/13/2019 COMPREHENSIVE METABOLIC PANEL CPT-4: 23375 08/13/2019 CBC (H/H, RBC, INDICES, WBC, PLT) CPT-4: 49230 2018 COMPREHENSIVE METABOLIC PANEL CPT-4: 72448 06/05/2019 MAGNESIUM CPT-4: 73909 06/05/2019 DEXAMETHASONE SODIUM PHOS CPT-4: J1100 05/21/2019 THER/PROPH/DIAG INJ SC/IM CPT-4: 01788 05/21/2019 TRIAMCINOLONE ACET INJ NOS CPT-4: J3301 05/21/2019 ROUTINE VENIPUNCTURE CPT-4: 90482 04/21/2019 COMPREHENSIVE METABOLIC PANEL CPT-4: 56753 04/21/2019 EXTRA CPT-4: 1014 04/21/2019 CULTURE, URINE, ROUTINE CPT-4: 395 04/21/2019 URINALYSIS NONAUTO W/O SCOPE CPT-4: 91832 04/21/2019 URINALYSIS NONAUTO W/O SCOPE CPT-4: 50293 01/29/2019 CULTURE, URINE, ROUTINE CPT-4: 395 01/29/2019 DRAIN/INJECT JOINT/BURSA CPT-4: 06513 02/19/2018 TRIAMCINOLONE ACET INJ NOS CPT-4: J3301 02/19/2018 DEXAMETHASONE SODIUM PHOS CPT-4: J1100 02/19/2018 THER/PROPH/DIAG INJ SC/IM CPT-4: 19481 02/12/2018 TRIAMCINOLONE ACET INJ NOS CPT-4: J3301 02/12/2018 DEXAMETHASONE SODIUM PHOS CPT-4: J1100 02/12/2018 CEFTRIAXONE SODIUM INJECTION CPT-4: J0696 12/03/2017 THER/PROPH/DIAG INJ SC/IM CPT-4: 92074 12/03/2017 THER/PROPH/DIAG INJ SC/IM CPT-4: 65543 12/03/2017 METHYLPREDNISOLONE INJECTION CPT-4: J2930 12/03/2017 URINALYSIS NONAUTO W/O SCOPE CPT-4: 07577 08/13/2017 STREP A ASSAY W/OPTIC CPT-4: 64485 02/13/2017 DESTRUCT PREMALG LESION (Cryosurgery) CPT-4: 37878 Vital Signs Date Vital 10/27/2019 Blood Pressure [...] 1: 128/78 Code: 8480-6 BMI: 36.0 Code: 27470-4 Heart Rate 1: 68 bpm Height: 5'7" [...] 1: 138/86 Code: 8480-6 BMI: 35.6 Code: 94500-4 Heart Rate 1: 68 bpm Height: 5'7" SpO2: 95% Temperature: 36.6 (C) / 97.8 (F) Weight: 227 lbs 12/03/2017 Blood Pressure 1: 134/84 Code: 8480-6 BMI: 34.3 Code: 66833-4 Heart Rate 1: 68 bpm Height: 5'7" Respiratory Rate: 20 bpm SpO2: 96% Tempera ture: 35.9 (C) / 96.6 (F) Weight: 219 lbs 09/11/2017 Blood Pressure 1: 140/86 Code: 8480-6 BMI: 34.9 Code: 82031-4 Heart Rate 1: 84 bpm Height: 5'7" Respiratory Rate: 20 bpm SpO2: 95% Tempera ture: 36.7 (C) / 98.1 (F) Weight: 223 lbs 08/13/2017 Blood Pressure 1: 142/94 Code: 8480-6 BMI: 34.5 Code: 86383-3 Heart Rate 1: 76 bpm Height: 5'7" Respiratory Rate: 20 bpm SpO2: 96% Tempera ture: 37.1 (C) / 98.8 (F) Weight: 220 lbs 11/17/2016 Blood Pressure 1: 118/78 Code: 8480-6 He art Rate 1: 64 bpm 07/19/2016 Blood Pressure 1: 112/58 Code: 8480-6 BMI: 31.6 Code: 06421-4 Heart Rate 1: 88 bpm Height: 5'7" Respiratory Rate: 22 bpm SpO2: 98% Tempera ture: 36.3 (C) / 97.4 (F) Weight: 202 lbs 06/09/2016 Blood Pressure 1: 138/84 Code: 8480-6 BMI: 32.1 Code: 68751-3 Heart Rate 1: 58 bpm Height: 5'7" Respiratory Rate: 20 bpm SpO2: 97% Tempera ture: 36.6 (C) / 97.8 (F) Weight: 205 lbs 11/08/2015 Blood Pressure 1: 142/80 Code: 8480-6 BMI: 32.4 Code: 65123-3 Heart Rate 1: 76 bpm Height: 5'7" Respiratory Rate: 20 bpm Temperature: 36 .6 (C) / 97.9 (F) Weight: 207 lbs 06/14/2015 Blood Pressure 1: 126/80 Code: 8480-6 Heart Rate 1: 84 bpm Respiratory Rate: 20 bpm Temperature: 36.8 (C) / 98.2 (F) Weight: 206 lbs 05/18/2015 Blood Pressure 1: 124/80 Code: 8480-6 BMI: 32.3 Code: 16066-6 Heart Rate 1: 68 bpm Height: 5'7" Respiratory Rate: 20 bpm Temperature: 36 .4 (C) / 97.6 (F) Weight: 206 lbs 02/22/2015 Blood Pressure 1: 126/78 Code: 8480-6 BMI: 32.1 Code: 92971-4 Heart Rate 1: 76 bpm Height: 5'7" Respiratory Rate: 20 bpm Temperature: 36 .6 (C) / 97.9 (F) Weight: 205 lbs 12/02/2014 Blood Pressure 1: 124/80 Code: 8480-6 BMI: 32.7 Code: 35629-2 Heart Rate 1: 70 bpm Height: 5'7" Respiratory Rate: 18 bpm Temperature: 36 .6 (C) / 97.9 (F) Weight: 209 lbs 08/18/2014 Blood Pressure 1: 132/94 Code: 8480-6 BMI: 34.5 Code: 19424-4 Heart Rate 1: 84 bpm Height: 5'6" Respiratory Rate: 20 bpm Temperature: 36 .6 (C) / 97.9 (F) Weight: 217 lbs 07/08/2014 Blood Pressure 1: 142/88 Code: 8480-6 BMI: 34.3 Code: 13734-3 Heart Rate 1: 72 bpm Height: 5'6" [...] skin lesion 08/18/2014 ~generic 07/08/2014 New Patient/Marialuisa ellis Visit Encounters Encounter Performer Location Codes Date ([id number]) OFFICE/OUTPATIENT VISIT EST Diagnosis: Allergic rhinitis[ICD10: J30.9] Diagnosis: Postnasal drip[ICD10: R09.82] Sapna Salas CPT-4: 94524 12/19/2019 ([id number]) NO CHARGE Diagnosis: Infected sebaceous cyst[ICD10: L72.3] Sapna CappsAmarjit PAULYNDER Paktor CPT-4: 67811 11/03/2019 ([id number]) OFFICE/OUTPATIENT VISIT EST Diagnosis: Disorder of the skin and subcutaneous tissue, unspecified[ICD10: L98.9] Diagnosis: Infected sebaceous cyst[ICD10: L72.3] Diagnosis: Local infection of the skin and subcutaneous tissue, unspecified[ICD10: L08.9] Lashell CappsAmarjit PAULYNDER Paktor CPT-4 : 73186 10/27/2019 ([id number]) OFFICE/OUTPATIENT VISIT EST Diagnosis: Suprapubic abdominal pain[ICD10: R10.2] Diagnosis: Aortic regurgitation[ICD10: I35.1] Sapna Calos SANCHEZ LOTUS SAmarjit PAULYNDER Paktor CPT-4: 89897 10/02/2019 ([id number]) OFFICE/OUTPATIENT VISIT EST Diagnosis: Chest pain[ICD10: R07.9] Lashell CappsAmarjit HAMZAH MANUELITO Paktor CPT-4: 24911 08/25/2019 ([id number]) OFFICE/OUTPATIENT VISIT EST Diagnosis: Thoracic back pain[ICD10: M54.6] Diagnosis: Disorder of kidney and ureter, unspecified[ICD10: N28.9] Diagnosis: Personal history of nicotine dependence[ICD10: Z87.891] 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] Lashell BRUNSONLINE JefryAmarjit CANDICE ANGELY [facility] CPT-4: 22694 08/13/2019 ([id number]) OFFICE/OUTPATIENT VISIT EST Diagnosis: Sigmoid diverticulitis[ICD10: K57.32] Diagnosis: Renal insufficiency[ICD10: N28.9] Diagnosis: Jock itch[ICD10: B35.6] Sapna Calos BRUNSONLINE SAmarjit PARDO Pak[facility] CPT-4: 81472 07/03/2019 ([id number]) OFFICE/OUTPATIENT VISIT EST Diagnosis: Cramp and spasm[ICD10: R25.2] Diagnosis: Disorder of kidney and ureter, unspecified[ICD10: N28.9] Lashell LIVE DO [facility] CPT-4: 54550 06/05/2019 ([id number]) OFFICE/OUTPATIENT VISIT EST Diagnosis: Other pruritus[ICD10: L29.8] Diagnosis: Pain in right knee[ICD10: M25.561] Lashell LIVE DO [facility] CPT-4: 45781 05/21/2019 ([id number]) NURSE/OUTPATIENT VISIT EST Diagnosis: Edema, unspecified[ICD10: R60.9] Sapna Alcantarajasongustabo BRUNSONSAPNA Vickie LIVE [address] [facility] CPT-4: 90573 04/21/2019 ([id number]) OFFICE/OUTPATIENT VISIT EST Diagnosis: Diverticulitis of large intestine without perforation or abscess without bleeding[ICD10: K57.32] Diagnosis: Snoring[ICD10: R06.83] Diagnosis: Other constipation[ICD10: K59.09] Lashell LIVE [address] [facility] CPT-4: 59490 02/24/2019 ([id number]) OFFICE/OUTPATIENT VISIT EST Diagnosis: Diverticulitis of large intestine without perforation or abscess with bleeding[ICD10: K57.33] Nancy CORRAL Vickie LIVE [address] [facility] CPT-4: 05158 02/04/2019 ([id number]) OFFICE/OUTPATIENT VISIT EST Diagnosis: Left lower quadrant pain[ICD10: R10.32] Nancy LORA Vickie [address]IVE [address] [facility] CPT-4: 82751 01/29/2019 OFFICE/OUTPATIENT VISIT EST Diagnosis: Dermatitis, unspecified[ICD10: L30.9] Diagnosis: Gastro-esophageal reflux disease without esophagitis[ICD10: K21.9] Diagnosis: Palpitations[ICD10: R00.2] Sapna CORRAL Vickie [facility] CPT-[facility]: 51968 12/19/2018 ([id number]) OFFICE/OUTPATIENT VISIT EST Diagnosis: Gastro-esophageal reflux disease without esophagitis[ICD10: K21.9] Diagnosis: Dysphagia, pharyngoesophageal phase[ICD10: R13.14] Sapna BRUNSONLINE Vickie LIVE [facility] CPT-4: 32318 11/11/2018 ([id number]) PREV VISIT EST AGE 40-64 Diagnosis: Encounter [...] and disorders of digestive system[ICD10: K91.89] Lashell [employer] CPT-4: 99 396 10/09/2018 ([id number]) OFFICE/OUTPATIENT VISIT EST Diagnosis: Pain in right knee[ICD10: M25.561] Diagnosis: Pain in right hip[ICD10: M25.551] Lashell NICHOLE Manuel Vickie [employer] CPT-4: 31336 02/12/2018 OFFICE/OUTPATIENT VISIT EST Diagnosis: Essential (primary) hypertension[ICD10: I10] Diagnosis: Other chest pain[ICD10: R07.89] Lashell BRUNSONLINE Vickie LIVE [facility] CPT-4: 21237 12/03/2017 ([id number]) OFFICE/OUTPATIENT VISIT EST Diagnosis: Essential (primary) hypertension[ICD10: I10] Sapna BRUNSONLINE Vickie Ameibo CPT-4: 56986 09/11/2017 ([id number]) PREV VISIT EST AGE 40-64 Diagnosis: Encounter for general adult medical examination without abnormal findings[ICD10: Z00.00] Diagnosis: Essential (primary) hypertension[ICD10: I10] Diagnosis: Left lower quadrant pain[ICD10: R10.32] Diagnosis: Left upper quadrant pain[ICD10: R10.12] Diagnosis: Other intervertebral disc degeneration, 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 CPT-4: 12247 08/13/2017 ([id number]) OFFICE/OUTPATIENT VISIT EST Diagnosis: Acute pharyngitis, unspecified[ICD10: J02.9] Sapna LIVE 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 CPT-4: 83404 07/19/2016 OFFICE/OUTPATIENT VISIT EST Diagnosis: Pain in thoracic spine[ICD10: M54.6] Diagnosis: Disorder of the skin and subcutaneous tissue, unspecified[ICD10: L98.9] Sobia Monreal SAPNA LIVE [facility] CPT-4: 76159 06/09/2016 OFFICE/OUTPATIENT VISIT EST Diagnosis: Retention of urine, unspecified[ICD10: R33.9] Diagnosis: Urinary tract infection, site not specified[ICD10: N39.0] Chelsie LIVE [facility] CPT-4: 26650 11/08/2015 ([id number]) OFFICE/OUTPATIENT VISIT EST Diagnosis: DERMATITIS NOS[ICD9: 692.9] Diagnosis: SEBACEOUS CYST[ICD9: 706.2] Sapna Capps. Claudio RENDER [facility] CPT-4: 78284 06/14/2015 OFFICE/OUTPATIENT VISIT EST Diagnosis: LOCAL SKIN INFECTION[ICD9: 686.9] Diagnosis: FOLLICULITIS[ICD9: 704.8] Chelsie HASSAN [facility] CPT-4: 96329 05/18/2015 ([id number]) OFFICE/OUTPATIENT VISIT EST Diagnosis: Constipation[ICD9: 564.00] Sapna HARVEY ANGELY 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] Diagnosis: Scoliosis[ICD9: 737.30] Sapna PARDO DO [facility] CPT-4: 17865 12/02/2014 ([id number]) OFFICE/OUTPATIENT VISIT EST Diagnosis: Thoracic back pain[ICD9: 724.1] Diagnosis: ACTINIC KERATOSIS[ICD9: 702.0] Sapna LIVE DO [facility] CPT-4: 91302 08/18/2014 OFFICE/OUTPATIENT VISIT NEW Diagnosis: HYPERTENSION[ICD9: 401.9] Diagnosis: Thoracic back pain[ICD9: 724.1] Diagnosis: GERD[ICD9: 530.81] Diagnosis: Adrenal tumor[ICD9: 239.7] Sapna AU [address] [facility] CPT-4: 40981 07/08/2014 ([id number]) OFFICE/OUTPATIENT VISIT NEW Diagnosis: HYPERTENSION[ICD9: 401.9] Diagnosis: GERD[ICD9: 530.81] Sapna LIVE DO [facility] CPT-4: 81191 07/08/2014 Plan of Care Planned Activity Notes Codes Status Date Visit Diagnosis Plan: Allergic rhinitis Discussion: Cl aritin 10mg po BID Call Sunday with how symptoms are doing Will also add famotodine at bedtime to cover for reflux etiology ICD-9 : 477.9 ICD-10 : J30.9 12/19/2019 Patient Education: famotidine- [employer] Coupon [id number] [email or web address]/[email or web address] Made Easy/resources/getResource/61/[email or web address] Completed 12/19/2019 Visit Diagnosis Plan: Infected sebaceous cyst Discussi on: Sent out 1 week of doxycycline ICD-9 : 706.2 ICD-10 : L72.3 11/03/2019 Appointment: Sapna Live [facility]Ptel[facility] [phone] [facility] [facility] 11/03/2019 Visit Diagnosis Plan: Local [...] ICD-10 : L08.9 10/27/2019 Appointment: Lashell Joe [facility] [facility] 10/27/2019 Patient Education: tramadol- [employer] Coupon [id number] [email or web address].com/samplemd/resources/getResource/61/[email or web address] Completed 10/27/2019 Visit Plan: Update Low Dose [...] : I35.1 10/02/2019 Appointment: Sapna Live WPtel: [facility] [facility] 10/02/2019 Care Plan: Referral Order SNOMED-CT : 30 [id number] Pending 10/02/2019 Visit Diagnosis Plan: Chest pain Discussion: will star t with cxray and rib xray. discussed that could be lung, rib, muscle but will start with cxray and patient may need echo. he verbalized understanding. ICD-9 : 786.50 ICD-10 : R07.9 08/25/2019 Appointment: Lashell Joe [facility] [facility] 08/25/2019 Visit Diagnosis Plan: Thoracic back pain Discussion: c hronic pain. will refer to dr. stallings at [facility] for evaluation and treatment ICD-9 : 724.1 [...] ct of lungs to be done at [facility]. ICD-9 : V15.82 ICD-10 : Z87.891 08/13/2019 [...] : 255.8 ICD-10 : E27.8 08/13/2019 Appointment: aLshell Joe [address] [place], [place] [id number] [place] FOLLOW UP 08/13/2019 Visit Diagnosis Plan: Sigmoid diverticulitis Discussio n: Bactrim/Flagyl [place] diet To ER this weekend if worsening ICD-9 : 562.11 ICD-10 : K57.32 07/03/2019 Visit Diagnosis Plan: Jock itch Discussion: Diflucan a nd topical nystatin ICD-9 : 110.3 ICD-10 : B35.6 07/03/2019 Visit Diagnosis Plan: Renal insufficiency Discussion: Labs discussed Continue off NSAIDS Hydrate Recheck Chemistry 3mos ICD-9 : 593.9 ICD-10 : N28.9 07/03/2019 Appointment: Sapna Live WPtel: [phone] [facility] US FOLLOW UP 07/03/2019 Patient Education: fluconazole- [employer] Coupon [id number] Completed 07/03/2019 Patient Education: nystatin- [employer] Coupon [id number] Completed 07/03/2019 Visit Diagnosis Plan: Disorder of [...] ICD-10 : R25.2 06/05/2019 Appointment: Lashell Joe [address] [place], [place] [id number] NO SHOW - FORGIVEN 06/05/2019 Appointment: Lashell Joe [address] [place] [phone] ACUTE ILLNESS 06/05/2019 Visit Diagnosis Plan: Pain [...] ICD-10 : L29.8 05/21/2019 Appointment: Lashell Joe [address] [place], [place] [address] ACUTE ILLNESS 05/21/2019 Patient Education: hydroxyzine HCl- [employer] Coupon [id number] https://www.[email or web address] Made Easy.com/samplemd/resources/getResource/61/[email or web address]-09um-[email or web address] Completed 05/21/2019 Appointment: Sapna Live WPtel: [phone] [facility] 05/19/19 1645---see note put in chart today (km) CANCELED 05/19/2019 Appointment: Shelleygustabo Sapna JefryAmarjit WPtel: [phone] [facility] CANCELED 05/05/2019 Appointment: Calos Sapna JefryAmarjit WPtel: [phone] [facility] UA 04/21/2019 Visit Diagnosis Plan: Diverticulitis of [...] : K59.09 02/24/2019 Appointment: Lashell Joe [address] Hospital Follow Up 02/24/2019 Visit Diagnosis Plan: Diverticulitis of large intestine without perforation or abscess with bleeding Discussion: Continue flagyl and cipro. A dvance diet to bland. BRAT diet advised. Avoid nuts, seeds, popcorn, roughage. RTC if abdominal pain worsens or does not improve. ICD-9 : 562.13 ICD-10 : K57.33 02/04/2019 Appointment: Nancy Mendiola [address] FOLLOW UP 02/04/2019 Visit Diagnosis Plan: [...] ICD-10 : R10.32 01/29/2019 Appointment: Nancy Mendiola [address] ACUTE ILLNESS 01/29/2019 Care Plan: CT [...] : K21.9 12/19/2018 Appointment: Sapna Live WPtel: [address] [place] [address] ACUTE ILLNESS 12/19/2018 Visit Diagnosis Plan: Gastro-esophageal reflux disease without esophagitis Discussion: Continue protonix at 40mg daily Hold mobic No NSAIDS Hold all MVs If persists then will need EGD ICD-9 : 530.81 ICD-10 : K21.9 11/11/2018 Appointment: Sapna Live WPtel: [address] [place] [address] FOLLOW UP 11/11/2018 Visit Diagnosis Plan: Encounter for [facility] adult medical examination without abnormal [...] ICD-10 : K21.9 10/09/2018 Visit Diagnosis Plan: Personal history of [...] ICD-10 : Z12.2 10/09/2018 Visit Diagnosis Plan: Essential (primary) hypertension [...] ICD-10 : K91.89 10/09/2018 Appointment: Lashell Joe [address] [place], [place] [phone] Annual Well Visit 10/09/2018 Patient Education: gabapentin- [employer] Coupon [id number] Completed 10/09/2018 Patient Education: Kegel Exercises Comple catalina 10/09/2018 Patient Education: High Blood Pressure Co mpleted 10/09/2018 Visit Diagnosis Plan: Pain in right knee Discussion: c orticosteroid injection administered as described above. patient tolerated well. instructed to rtc in 3- 4 months if needed for additional injection. ICD-9 : 719.46 ICD-10 : M25.561 02/19/2018 Appointment: Lashell Joe [address] OFFICE SURGERY 02/19/2018 Patient Education: Patient Medication [...] ICD-10 : M25.561 02/12/2018 Appointment: Lashell Joe [address] ACUTE ILLNESS 02/12/2018 Patient Education: Patient Medication Summary Completed 02/12/2018 Care Plan: X-RAY EXAM OF KNEE 1 [place] 2 [place] : [address]-9 Pending 02/12/2018 Visit Diagnosis Plan: Essential (primary) [...] ICD-10 : R07.89 12/03/2017 Appointment: Lashell Joe [place] [phone] ESTABLISHED PATIENT 12/03/2017 Patient Education: Patient Medication Summary Completed 12/03/2017 Visit Diagnosis Plan: Essential (primary) hypertension Discussion: Increase quinapril to 40mg daily BP check in 1month ICD-9 : 401.9 ICD-10 : I10 09/11/2017 Appointment: Sapna Live WPtel: [address] [place] [address] US FOLLOW UP 09/11/2017 Patient Education: Patient Medication Summary Completed 09/11/2017 Appointment: Sapna Live WPtel: [address] [place] [address] US RESCHEDULED 08/22/2017 Visit Diagnosis Plan: Essential (primary) hypertension Discussion: Increase quinapril to 20mg daily Follow Up: 1 months ICD-9 : 401.9 ICD-10 : I10 08/13/2017 Visit Diagnosis Plan: Encounter for [facility] medical examination without abnormal findings Discussion: Update fasting lab ICD-9 : V70.9 ICD-10 : Z00.00 08/13/2017 Visit Diagnosis Plan: Left lower quadrant pain Discuss ion: Update colonoscopy ICD-9 : 789.04 ICD-10 : R10.32 08/13/2017 Appointment: Sapna Live WPtel: [address] [place] [address] Annual Well Visit 08/13/2017 Patient Education: Patient Medication Summary Completed 08/13/2017 Appointment: Sapna Live WPtel: [address] [place] [address] THROAT SWAB 02/13/2017 Patient Education: Patient Medication Summary Completed 02/13/2017 Appointment: Sapna Live WPtel: [address] [place], [place] [phone] [place] BP CHECK 11/17/2016 Patient Education: Patient Medication Summary Completed 11/17/2016 Visit Plan: Due for colonoscopy in 2018 Had shingles shot and flu shot Change quinapril hct to plain quinapril and see if muscles twitches improve Fwup with Dr. Braga Lab discussed Discussed diet/exercise at length Check CT abdomen Recheck 3mos 07/19/2016 Appointment: Sapna Live WPtel: [address] [place], [place] [phone] US 07/18 confirmed`sl PHYSICAL 07/19/2016 Patient Education: Patient [...] earliest convenience 06/09/2016 Appointment: Sobia Monreal WPtel: [address] [place], [place] [phone] ACUTE ILLNESS 06/09/2016 Patient Education: Patient Medication Summary Completed 06/09/2016 Referral: Demario Braga WPtel: [address] [place], [place] [phone] Referral Initiated 11/12/2015 Visit Plan: Continue indwelling catheter until follow-up with Dr. Braga Continue Bactrim and Cipro Pyridium TID for Bladder spasms 11/08/2015 Appointment: Chelsie Teixeira WPtel: [address] [place], [place] [phone] ER Follow UP 11/08/2015 Patient Education: Patient Medication Summary Completed 11/08/2015 Referral: Abdiel Tucker WPtel: [address] [facility] [address] Referral Initiated 06/21/2015 Visit Plan: Prednisone 20mg daily for 1w [place] See surgery of cyst removal 06/14/2015 Appointment: Sapna Live WPtel: [address] [place], [place] [phone] 06/11 vm cn 06/14 vm cn FOLLOW UP 2014 Patient Education: Patient Medication Summary Completed 06/14/2015 Visit Plan: Warm moist compresses to Lef t shoulder lesion and apply topical Mupirocin twice daily Complete Cephalexin x 7 days as directed Resume Culturelle daily 05/18/2015 Appointment: Chelsie Teixeira WPtel: [address] [place], [place] [phone] ACUTE ILLNESS 05/18/2015 Patient Education: Patient Medication Summary Completed 05/18/2015 Visit Plan: Check fasting lab Use pain m eds prn with miralax on the day that takes pain meds 02/22/2015 Appointment: Sapna Live WPtel: [address] [place], [place] [phone] 02/19 cn 02/19 appt confirmed-lb ACUTE ILLNESS 5 Patient Education: Patient Medication Summary Completed 02/22/2015 Visit Plan: Increase neurontin to 300mg q HS Continue flexeril and tramadol Call in 1mo on how higher dose of gabapentin 12/02/2014 Appointment: Sapna Live WPtel: [address] [place], [place] [phone] FOLLOW UP 12/02/2014 Patient Education: Patient Medication Summary Completed 12/02/2014 Ref[facility]: [id number] [place] Referral Appointment Confirmed 09/15/2014 Visit Plan: Proceed with pain doctor for possible injection vs nerve block Trial of lidoderm patch Cryotherapy to lesions as above 08/18/2014 Appointment: Sapna Live WPtel: [address] [place], [place] [phone] ACUTE ILLNESS 08/18/2014 Patient Education: Patient Medication Summary Completed 08/18/2014 Patient Education: Patient Medication Summary Completed 08/13/2014 Visit Plan: Continue current meds Obtain most recent lab results Check thoracic spine x-rays Needs updated CT scan of adrenal tumor 07/08/2014 Appointment: Sapna Live WPtel: [address] [place], [place] [phone] 07/07 vm NEW PATIENT 07/08/2014 Patient Education: Patient Medication Summary Completed 07/08/2014 Patient Education: Patient Medication Summary Completed 07/08/2014 Referral: Ronald Suhail Thibodeaux WPtel: [phone] [id number] [place] Referral Completed Referral: Toby Bettencourt WPtel: [address] [place] [address] [address] [id number] [place] Referral Completed Referral: Rosario Monahan WPtel: [phone] [facility] [address] [place] Referral Appointment Requested Instructions [...]
--- OUTSIDE RECORDS SUMMARY | 2020-02-05 07:49 | XMS REPORT | CCD ---
Author Author Jai Live D.O. Organization [facility] Address [address] [place] [address] Phone Care Team Providers Care [facility] [facility] Supervisor Name Role Phone Sapna Live D.O., PP Unavailable CCM Unavailable Summary Purpose Interface Exchange Insurance Providers Payer name Policy type / Coverage type Covered libertarian ID Effective Begin Date Effective End Date GPA Commercial Insurance [id number] 2019 Unknown Family history Mother Diagnosis Age At Onset Cancer Unknown Father Diagnosis Age At Onset Congestive heart failure Unknown Coronary Artery Disease(CAD) Unknown Social History Social History Element Codes Description Effective Dates Tobacco history SNOMED CT: 8766042 Former smoker 10/09/2018 Marital status Unknown 07/08/2014 Number of children Unknown 1 07/08/2014 Employment Unknown Currently employed [employer] 07/08/[address]: 007969173 Never drinks alcohol 2013 Has the patient [...] Date Active famotidine 20 mg tablet RxNorm: 528662 1 Tablet(s) Oral QPM for postnasal drip/stomach 12/19/2019 01/18/2020 Active tramadol 50 mg tablet RxNorm: 576811 1 Tablet(s) Oral t hree times a day as needed for pain along with two tylenol 12/03/2019 No Stop Date Active doxycycline hyclate 100 mg capsule RxNorm: 3422091 1 Cap lee(s) Oral two times a day 11/03/2019 11/02/2019 Inactive doxycycline hyclate 100 mg capsule RxNorm: 0324358 1 Cap lee(s) Oral two times a day 11/03/2019 11/10/2019 Inactive tramadol 50 mg tablet RxNorm: 334900 1 Tablet(s) Oral t hree times a day as needed for pain along with two tylenol 10/27/2019 10/26/2019 Inactive tramadol 50 mg tablet RxNorm: 330331 1 Tablet(s) Oral t hree times a day as needed for pain along with two tylenol 10/27/2019 10/27/2019 Inactive cyclobenzaprine 10 mg tablet RxNorm: 440043 1 Tablet(s) Oral th ree times a day 10/27/2019 12/18/2019 Inactive Bactrim DS 800 mg-160 mg tablet RxNorm: 968639 1 Tablet(s) Oral two times a day 10/27/2019 11/03/2019 Inactive Bactrim DS 800 mg-160 mg tablet RxNorm: 993838 1 Tablet(s) Oral two times a day 10/27/2019 10/26/2019 Inactive tramadol 50 mg tablet RxNorm: 455113 1 Tablet(s) Oral t hree times a day as needed for pain along with two tylenol 09/29/2019 10/26/2019 Inactive quinapril 40 mg tablet RxNorm: 936423 1 Tablet(s) Oral QD 09/18/2019 03/15/2020 Active Patient requests 90 days supply tramadol 50 mg tablet RxNorm: 910239 1 Tablet(s) Oral t hree times a day as needed for pain along with two tylenol 08/28/2019 08/28/2019 Inactive tramadol 50 mg tablet RxNorm: 181796 1 Tablet(s) PO TID as needed for pain along with two tylenol 08/25/2019 08/27/2019 Inactive pantoprazole 40 mg tablet,delayed release RxNorm: 494506 1 Tabl et(s) Oral QD 08/13/2019 No Stop Date Active Vitamin D3 1,000 unit capsule RxNorm: 762993 1 Capsule(s) Oral QD 1 10/13/2018 12/18/2019 Inactive tamsulosin 0.4 mg capsule RxNorm: 273574 1 Capsule(s) Oral QPM 07/2612/18/2019 Inactive Protonix 40 mg tablet,delayed release RxNorm: 923331 TA KE 1 TABLET BY MOUTH TWICE A DAY 08/04/2019 08/12/2019 Inactive Flagyl 500 mg tablet RxNorm: 604566 1 Tablet(s) Oral three time s a day 07/03/2019 07/13/2019 Inactive fluconazole 100 mg tablet RxNorm: 948738 1 Tablet(s) Oral QD 201807/10/2019 Inactive Bactrim DS 800 mg-160 mg tablet RxNorm: 855872 1 Tablet(s) Oral two times a day 07/03/2019 07/13/2019 Inactive nystatin 100,000 unit/gram topical cream RxNorm: 846307 Application Topical two times a day 07/03/2019 08/12/2019 Inactive gabapentin 600 mg tablet RxNorm: 077314 Tablet(s) TAKE 1 TABLET BY MOUTH EVERY NIGHT AT BEDTIME 06/25/2019 08/12/2019 Inactive - First Attempt Ref: [id number] quinapril 40 mg tablet RxNorm: 733010 1 Tablet(s) Oral QD 06/23/2019 09/17/2019 Inactive Patient requests 90 days supply tramadol 50 mg tablet RxNorm: 345692 1 Tablet(s) PO TID as needed for pain along with two tylenol 05/23/2019 08/24/2019 Inactive hydroxyzine HCl 25 mg tablet RxNorm: 427063 1 Tablet(s) PO TID as needed 05/21/2019 08/12/2019 Inactive Elimite 5 % topical cream RxNorm: 511056 1 Application TOP QHS apply head to toe and was off in morning 05/19/2019 07/02/2019 Inactive Protonix 40 mg tablet,delayed release RxNorm: 516965 1 Tablet(s ) PO BID 05/05/2019 08/02/2019 Inactive - First Attempt Ref: [id number] gabapentin 600 mg tablet RxNorm: 561939 Tablet(s) TAKE 1 TABLET BY MOUTH EVERY NIGHT AT BEDTIME 04/25/2019 06/24/2019 Inactive - First Attempt Ref: [id number] tramadol 50 mg tablet RxNorm: 489681 1 Tablet(s) PO TID as needed for pain along with two tylenol 04/21/2019 05/22/2019 Inactive quinapril 40 mg tablet RxNorm: 187026 1 Tablet(s) PO QD 04/01/2019 Inactive Patient requests 90 days supply fenofibrate micronized 134 mg capsule RxNorm: 148098 1 Capsule(s) PO QD Due for updated fasting labs 03/31/2019 08/12/2019 Inactive dicyclomine 10 mg capsule RxNorm: 765119 1 Capsule(s) PO TID as needed 02/24/2019 05/20/2019 Inactive Flagyl 500 mg tablet RxNorm: 170635 1 Tablet(s) PO Q8H 02/24/201908/2019 Inactive ciprofloxacin 500 mg tablet RxNorm: 763548 1 Tablet(s) PO BID 02/2403/09/2019 Inactive Flagyl 500 mg tablet RxNorm: 785197 1 Tablet(s) PO Q6H 01/30/2019 Inactive ciprofloxacin 500 mg tablet RxNorm: 833300 1 Tablet(s) PO BID 01/3001/29/2019 Inactive Flagyl 500 mg tablet RxNorm: 851596 1 Tablet(s) PO Q6H 01/30/201904/2019 Inactive ciprofloxacin 500 mg tablet RxNorm: 043791 1 Tablet(s) PO BID 01/3002/05/2019 Inactive gabapentin 600 mg tablet RxNorm: 413028 TAKE 1 TABLET B Y MOUTH EVERY NIGHT AT BEDTIME 01/27/2019 04/24/2019 Inactive - First Attempt Ref: [id number] tramadol 50 mg tablet RxNorm: 335782 1 Tablet(s) PO TID as needed for pain along with two tylenol 01/08/2019 04/20/2019 Inactive fenofibrate micronized 134 mg capsule RxNorm: 726895 1 Capsule(s) PO QD Due for updated fasting labs 01/02/2019 03/30/2019 Inactive quinapril 40 mg tablet RxNorm: 543288 1 Tablet(s) PO QD 01/01/2019 Inactive Patient requests 90 days supply Protonix 40 mg tablet,delayed release RxNorm: 601962 TA KE 1 TABLET BY MOUTH TWICE A DAY 01/01/2019 03/31/2019 Inactive - First Attempt Ref: [id number] Protonix 40 mg tablet,delayed release RxNorm: 008666 TA KE 1 TABLET BY MOUTH TWICE A DAY 12/25/2018 12/31/2018 Inactive - First Attempt Ref: [id number] gabapentin 600 mg tablet RxNorm: 671693 TAKE 1 TABLET B Y MOUTH EVERY NIGHT AT BEDTIME 12/02/2018 01/26/2019 Inactive - First Attempt Ref: [id number] Protonix 40 mg tablet,delayed release RxNorm: 743920 1 Tablet(s ) PO BID 11/11/2018 12/24/2018 Inactive Protonix 40 mg tablet,delayed release RxNorm: 066146 1 Tablet(s ) PO BID 10/09/2018 11/10/2018 Inactive gabapentin 600 mg tablet RxNorm: 527232 1 Tablet(s) PO QHS 10/09/1912/01/2018 Inactive quinapril 40 mg tablet RxNorm: 615840 1 Tablet(s) PO QD 1 TABLE T(S) PO QD 08/08/2018 08/07/2018 Inactive Patient requests 9 0 days supply quinapril 40 mg tablet RxNorm: 327810 1 Tablet(s) PO QD 08/08/2018 Inactive Patient requests 90 days supply meloxicam 15 mg tablet RxNorm: 375919 1 Tablet(s) PO QD 08/08/2018 Inactive gabapentin 300 mg capsule RxNorm: 759148 1 CAPSULE(S) P O QHS DUE FOR WELLNESS VISIT 08/07/2018 10/08/2018 Inactive due for followup meloxicam 15 mg tablet RxNorm: 895831 Tablet(s) 1 TABLET(S) PO QD 1 10/07/2017 08/07/2018 Inactive fenofibrate micronized 134 mg capsule RxNorm: 367209 1 Capsule(s) PO QD Needs updated fasting labs!!!!!! 07/08/2018 07/07/2018 Inactive fenofibrate micronized 134 mg capsule RxNorm: 402478 1 Capsule( s) PO QD 07/08/2018 01/01/2019 Inactive fenofibrate micronized 134 mg capsule RxNorm: 345306 1 Capsule(s) PO QD Needs updated fasting labs!!!!!! 06/21/2018 07/08/2018 Inactive Medrol (Daniel) 4 mg tablets in a dose pack RxNorm: 196800 Tablet(s) PO As Directed 05/06/2018 05/05/2018 Inactive Medrol (Daniel) 4 mg tablets in a dose pack RxNorm: 351077 Tablet(s) PO As Directed 05/06/2018 08/07/2018 Inactive quinapril 40 mg tablet RxNorm: 970806 1 TABLET(S) PO QD 05/02/2018 Inactive Patient requests 90 days supply fenofibrate micronized 134 mg capsule RxNorm: 400068 1 Capsule(s) PO QD Needs updated fasting labs 04/29/2018 05/28/2018 Inactive Move Free Joint Health 750 mg-100 mg-1.65 mg-108 mg tablet R xNorm: 1 Tablet(s) PO QD 02/12/2018 03/13/2018 Inactive fenofibrate micronized 134 mg capsule RxNorm: 830084 Ca psule(s) 1 CAPSULE(S) PO QD 01/29/2018 06/21/2018 Inactive quinapril 40 mg tablet RxNorm: 385027 1 TABLET(S) PO QD 11/26/2017 Inactive Patient requests 90 days supply fenofibrate micronized 134 mg capsule RxNorm: 154340 1 CAPSULE( S) PO QD 11/06/2017 01/29/2018 Inactive gabapentin 300 mg capsule RxNorm: 876222 1 CAPSULE(S) P O QHS DUE FOR WELLNESS VISIT 10/24/2017 07/20/2018 Inactive due for followup meloxicam 15 mg tablet RxNorm: 958807 1 TABLET(S) PO QD 10/24/2017 Inactive quinapril 40 mg tablet RxNorm: 539620 1 Tablet(s) PO QD 10/24/2017 Inactive fenofibrate micronized 134 mg capsule RxNorm: 695052 1 Capsule( s) PO QD 08/22/2017 11/05/2017 Inactive fenofibrate micronized 134 mg capsule RxNorm: 148708 1 Capsule( s) PO QD 08/22/2017 08/21/2017 Inactive quinapril 20 mg tablet RxNorm: 285901 1 Tablet(s) PO QD 08/13/2017 Inactive gabapentin 300 mg capsule RxNorm: 216146 1 Capsule(s) P O QHS Due for wellness visit 08/06/2017 10/23/2017 Inactive due for followup gabapentin 300 mg capsule RxNorm: 130977 1 Capsule(s) P O QHS Due for wellness visit 08/02/2017 08/05/2017 Inactive due for followup meloxicam 15 mg tablet RxNorm: 263761 1 Tablet(s) PO QD 08/01/2017 Inactive gabapentin 300 mg capsule RxNorm: 724280 1 Capsule(s) P O QHS Due for wellness visit 08/01/2017 08/01/2017 Inactive due for followup gabapentin 300 mg capsule RxNorm: 276783 1 Capsule(s) P O QHS Due for wellness visit 08/01/2017 08/02/2017 Inactive gabapentin 300 mg capsule RxNorm: 502939 1 Capsule(s) PO QHS 201605/12/2017 Inactive quinapril 10 mg tablet RxNorm: 155896 1 Tablet(s) PO QD replace s quinapril hct 02/12/2017 08/12/2017 Inactive meloxicam 15 mg tablet RxNorm: 226063 1 Tablet(s) PO QD 02/05/2017 Inactive quinapril 10 mg tablet RxNorm: 943782 1 Tablet(s) PO QD replace s quinapril hct 11/16/2016 02/12/2017 Inactive gabapentin 300 mg capsule RxNorm: 308028 1 Capsule(s) PO QHS 201602/12/2017 Inactive quinapril 10 mg tablet RxNorm: 821332 1 Tablet(s) PO QD replace s quinapril hct 10/16/2016 11/15/2016 Inactive gabapentin 300 mg capsule RxNorm: 296193 1 Capsule(s) PO QHS 201511/15/2016 Inactive quinapril 10 mg tablet RxNorm: 468321 1 Tablet(s) PO QD replace s quinapril hct 07/19/2016 10/15/2016 Inactive meloxicam 15 mg tablet RxNorm: 298385 1 Tablet(s) PO QD 07/10/2016 Inactive meloxicam 15 mg tablet RxNorm: 840970 TAKE ONE TABLET BY MOUTH LUKE Y 07/10/2016 07/09/2016 Inactive meloxicam 15 mg tablet RxNorm: 677363 1 Tablet(s) PO QD 07/06/2016 Inactive meloxicam 15 mg tablet RxNorm: 905714 1 Tablet(s) PO QD 06/09/2016 Inactive Multivitamin & Mineral Formula tablet RxNorm: 1 Tablet(s) PO Q D 06/02/2016 07/01/2016 Inactive tamsulosin 0.4 mg capsule RxNorm: 333483 1 Capsule(s) PO QHS 201507/01/2016 Inactive Move Free Joint Health 750 mg-100 mg-1.65 mg-108 mg tablet R xNorm: 1 Tablet(s) PO QD 06/02/2016 07/01/2016 Inactive gabapentin 300 mg capsule RxNorm: 927871 1 Capsule(s) PO QHS 201508/27/2016 Inactive gabapentin 300 mg capsule RxNorm: 437789 Capsule(s) ALFONZO E ONE CAPSULE BY MOUTH AT BEDTIME 02/28/2016 05/27/2016 Inactive quinapril 10 mg-hydrochlorothiazide 12.5 mg tablet RxNorm: 3 04190 Tablet(s) TAKE ONE TABLET BY MOUTH EVERY MORNING 01/14/2016 07/18/2016 Inactive gabapentin 300 mg capsule RxNorm: 334883 TAKE ONE CAPSULE BY [facility] AT BEDTIME 12/28/2015 02/27/2016 Inactive Urecholine 25 mg tablet RxNorm: 643969 1 Tablet(s) PO TID 11/09/2015 07/18/2016 Inactive phenazopyridine 100 mg tablet RxNorm: 8103220 1 Tablet(s ) PO TID as needed for bladder spasms. 11/08/2015 11/08/2015 Inactive quinapril 10 mg-hydrochlorothiazide 12.5 mg tablet RxNorm: 3 17786 TAKE ONE TABLET BY MOUTH EVERY MORNING 10/15/2015 01/13/2016 Inactive gabapentin 300 mg capsule RxNorm: 667956 1 Tablet(s) PO QD TAKE ONE CAPSULE BY MOUTH EVERY NIGHT AT BEDTIME 09/23/2015 12/21/2015 Inactive quinapril 10 mg-hydrochlorothiazide 12.5 mg tablet RxNorm: 3 91288 Tablet(s) TAKE ONE TABLET BY MOUTH EVERY MORNING 07/14/2015 10/14/2015 Inactive gabapentin 300 mg capsule RxNorm: 689843 1 Tablet(s) PO QD TAKE ONE CAPSULE BY MOUTH EVERY NIGHT AT BEDTIME 06/25/2015 09/23/2015 Inactive prednisone 20 mg tablet RxNorm: 864954 1 Tablet(s) PO QD 06/14/2015 0 06/20/2015 Inactive cephalexin 500 mg capsule RxNorm: 996152 1 Capsule(s) PO BID 201405/27/2015 Inactive mupirocin 2 % topical ointment RxNorm: 966442 TOP BID 05/18/2015 0 06/13/2015 Inactive quinapril 10 mg-hydrochlorothiazide 12.5 mg tablet RxNorm: 3 46034 Tablet(s) TAKE ONE TABLET BY MOUTH EVERY MORNING 04/06/2015 07/14/2015 Inactive gabapentin 300 mg capsule RxNorm: 059138 1 Capsule(s) PO QHS 201404/01/2015 Inactive [SAVINGS FOR NON-COVERED [place]IL[place] GS -- BIN:527743, PCN: ASPROD1, Group: XXXXX, ID# [id number], Questions: . THIS IS NOT INSURANCE.] gabapentin 300 mg capsule RxNorm: 694683 1 Capsule(s) PO QHS 201406/25/2015 Inactive [SAVINGS FOR NON-COVERED LILIANA GS -- BIN:325570, PCN: ASPROD1, Group: XXXXX, ID# [id number], Questions: . THIS IS NOT INSURANCE.] quinapril 10 mg-hydrochlorothiazide 12.5 mg tablet RxNorm: 3 50349 TAKE ONE TABLET BY MOUTH EVERY MORNING 12/11/2014 04/05/2015 Inactive gabapentin 300 mg capsule RxNorm: 438202 1 Capsule(s) PO QHS 201404/02/2015 Inactive [SAVINGS FOR NON-COVERED LILIANA GS -- BIN:184943, PCN: ASPROD1, Group: XXXXX, ID# [id number], Questions: . THIS IS NOT INSURANCE.] cyclobenzaprine 10 mg tablet RxNorm: 216661 1 Tablet(s) PO TID as needed for muscle spasm for muscle spasm 12/02/2014 02/21/2015 Inactive [S AVINGS FOR NON- COVERED DRUGS -- BIN:944185, PCN: ASPROD1, Group: XXXXX, ID# [id number], Questions: . THIS IS NOT INSURANCE.] gabapentin 100 mg capsule RxNorm: 127626 1 Capsule(s) PO QHS 201412/01/2014 Inactive [SAVINGS FOR NON-COVERED LILIANA GS -- BIN:181718, PCN: ASPROD1, Group: XXXXX, ID# [id number], Questions: . THIS IS NOT INSURANCE.] ibuprofen 800 mg tablet RxNorm: 244773 1 Tablet(s) PO T ID as needed low back pain 11/11/2014 11/23/2014 Inactive [SAVINGS FOR NON -COVERED DRUGS -- BIN:724020, PCN: ASPROD1, Group: XXXXX, ID# [id number], Questions: . THIS IS NOT INSURANCE.] ibuprofen 800 mg tablet RxNorm: 766057 1 Tablet(s) PO T ID as needed low back pain 11/09/2014 11/10/2014 Inactive [SAVINGS FOR NON -COVERED DRUGS -- BIN:697172, PCN: ASPROD1, Group: XXXXX, ID# [id number], Questions: . THIS IS NOT INSURANCE.] Zorvolex 35 mg capsule RxNorm: 2911551 1 Tablet(s) PO TID 08/27/2014 10/01/2014 Inactive [SAVINGS FOR UNINSURED PATIENTS -- BIN:0 75972, PCN: ASPROD1, Group: [id number], ID# [id number], Process claim through [employer], for questions: . THIS IS NOT INSURANCE.] quinapril 10 mg-hydrochlorothiazide 12.5 mg tablet RxNorm: 3 04853 1 Tablet(s) PO QAM 08/27/2014 11/24/2014 Inactive Lidoderm 5 % (700 mg/patch) adhesive patch RxNorm: 4055708 Application TOP for 12hours then off for pain 08/18/2014 02/21/2015 Inactive [SAVIN GS FOR UNINSURED PATIENTS -- BIN:707026, PCN: ASPROD1, Group: [id number], ID# [id number], Process claim through [employer], for questions: . THIS IS NOT INSURANCE.] Zorvolex 35 mg capsule RxNorm: 1454596 1 Tablet(s) PO TID 08/13/2014 08/12/2014 Inactive Zorvolex 35 mg capsule RxNorm: 1521914 1 Tablet(s) PO TID 08/13/2014 08/24/2014 Inactive [SAVINGS FOR UNINSURED PATIENTS -- BIN:0 94479, PCN: ASPROD1, Group: [id number], ID# [id number], Process claim through [employer], for questions: . THIS IS NOT INSURANCE.] Aspirin Child 81 mg chewable tablet RxNorm: 328552 1 Tablet(s) PO QD No Start Date Active ibuprofen 800 mg tablet RxNorm: 138463 1 Tablet(s) PO T ID as needed low back pain No Start Date 11/08/2014 Inactive cyclobenzaprine 10 mg tablet RxNorm: 917848 1 Tablet(s) PO TID No S tart Date 08/12/2017 Inactive garlic 1,000 mg capsule RxNorm: 311210 1 Capsule(s) PO QD No Start Date 04/22/2019 Inactive tramadol 50 mg tablet RxNorm: 754394 1 Tablet(s) PO Q4-6H as ne eded for pain No Start Date 02/21/2015 Inactive tramadol 50 mg tablet RxNorm: 548182 1 Tablet(s) PO TID as needed for pain along with two tylenol No Start Date 01/07/2019 Inactive krill oil oral RxNorm: 02380 oral No Start Date 11/11/2018 Inacti ve Vitamin D3 2,000 unit tablet RxNorm: 340057 1 Tablet(s) PO QD No St art Date 08/12/2019 Inactive gabapentin 100 mg tablet RxNorm: 968836 1 Tablet(s) PO QD No Start Date 11/10/2014 Inactive Zofran 4 mg tablet RxNorm: 366399 1 Tablet(s) PO Q6H as needed No S tart Date 08/12/2019 Inactive Elimite 5 % topical cream RxNorm: 117251 1 Application TOP QHS apply head to toe and was off in morning No Start Date 05/18/2019 Inactive gabapentin 100 mg capsule RxNorm: 528068 1 Capsule(s) PO QHS No Sta rt Date 11/10/2014 Inactive aspirin 325 mg tablet RxNorm: 233961 2 Tablet(s) PO QD No Start Date 08/17/2014 Inactive Fish Oil 1,000 mg capsule RxNorm: 1 Capsule(s) PO QD No Start Date 10/08/2018 Inactive quinapril 10 mg-hydrochlorothiazide 12.5 mg tablet RxNorm: 3 12776 1 Tablet(s) PO QAM No Start Date 08/26/2014 Inactive quinapril 40 mg tablet RxNorm: 540534 1 Tablet(s) PO QD No Start Da te 10/23/2017 Inactive Medrol (Daniel) 4 mg tablets in a dose pack RxNorm: 025807 Tablet(s) PO As Directed No Start Date 05/05/2018 Inactive Urecholine 25 mg tablet RxNorm: 085383 1 Tablet(s) PO TID No Start Date 11/08/2015 Inactive cyclobenzaprine 10 mg tablet RxNorm: 909888 1/2-1 Table t(s) PO TID as needed for muscle spasm No Start Date 12/01/2014 Inactive tamsulosin 0.4 mg capsule RxNorm: 650235 2 Capsule(s) PO QPM No Sta rt Date 08/12/2019 Inactive hydrocodone 5 mg-acetaminophen 325 mg tablet RxNorm: 876643 1 -2 Tablet(s) PO Q6H as needed No Start Date 05/20/2019 Inactive loratadine 10 mg tablet RxNorm: 412059 1 Tablet(s) PO QD No Start D ate 07/07/2014 Inactive Medication Administered No Medication Administered data Immunizations Vaccine Codes Date Status Influenza CVX: 141 07/21/2019 Results Observation Observation Code Item Item Code Result Date S [facility] Location CULTURE, AEROBIC BACTERIA 66432 CULTURE, AEROBIC BACTERIA SEE NOTE 10/30/2019 Zay Becerra [address] [place] [address] CULTURE, URINE, ROUTINE 395 CULTURE SEE NOTE 1 10/15/2018 Zay Becerra [address] [place] [address] CULTURE, URINE, ROUTINE 395 CULTURE, URINE, ROUTINE SEE NOTE 08/15/2019 Zay Becerra [address] [place] [address] CBC (H/H, RBC, INDICES, WBC, PLT) 35708 WHITE BLOOD CELL COU NT 7.9 Thousand/uL 08/14/2019 Zay Becerra [address] [place] [address] CBC (H/H, RBC, INDICES, WBC, PLT) 77795 RED BLOOD CELL COUNT 4.93 Million/uL 08/14/[address] [facility] [address] CBC (H/H, RBC, INDICES, WBC, PLT) 28487 HEMOGLOBIN 15 .4 g/dL 08/14/[address] [facility] [address] CBC (H/H, RBC, INDICES, WBC, PLT) 02578 HEMATOCRIT 45 .0 % 08/14/2019 [facility] [address] CBC (H/H, RBC, INDICES, WBC, PLT) 83920 MCV 91 .3 fL 08/14/2019 [facility] [address] CBC (H/H, RBC, INDICES, WBC, PLT) 63185 MCH 31 .2 pg 08/14/[address] [address] CBC (H/H, RBC, INDICES, WBC, PLT) 95434 MCHC 34 .2 g/dL 08/14/2019 [facility] [address] CBC (H/H, RBC, INDICES, WBC, PLT) 39078 RDW 12 .7 % 08/14/2019 [facility] [address] CBC (H/H, RBC, INDICES, WBC, PLT) 07552 PLATELET COUNT 214 Thousand/uL 08/14/2019 [facility] [address] CBC (H/H, RBC, INDICES, WBC, PLT) 07972 MPV 11 .5 fL 08/14/2019 [facility] [address] COMPREHENSIVE METABOLIC PANEL 28988 Glucose 113 mg /dL 08/14/2019 [facility] [address] COMPREHENSIVE METABOLIC PANEL 27439 UREA NITROGEN (BUN) 16 mg/dL 08/14/2019 [facility] [address] COMPREHENSIVE METABOLIC PANEL 14672 CREATININE 0.86 m g/dL 08/14/[address] [facility] [address] COMPREHENSIVE METABOLIC PANEL 04186 eGFR NON-AFR. CYMRO 92 mL/min/1.73m2 08/14/2019 [facility] [address] [address] COMPREHENSIVE METABOLIC PANEL 23764 eGFR 106 mL/min/1.73m2 08/14/[facility] [address] [address] COMPREHENSIVE METABOLIC PANEL 02491 BUN/CREATININE RATIO NOT APPLICABLE (calc) 08/14/2019 [facility] [address] [address] COMPREHENSIVE METABOLIC PANEL 38660 SODIUM 141 mm ol/L 08/14/2019 [facility] [address] [address] COMPREHENSIVE METABOLIC PANEL 66043 POTASSIUM 4.1 mm ol/L 08/14/2019 [facility] [address] [address] COMPREHENSIVE METABOLIC PANEL 47331 CHLORIDE 102 mm ol/L 08/14/2019 [facility] [address] COMPREHENSIVE METABOLIC PANEL 94047 CARBON DIOXIDE 28 mmol/L 08/14/2019 [facility] [address] [address] COMPREHENSIVE METABOLIC PANEL 92938 CALCIUM 9.7 mg /dL 08/14/2019 [facility] [address] [address] COMPREHENSIVE METABOLIC PANEL 22238 PROTEIN, TOTAL 6. 7 g/dL 08/14/2019 [facility] [address] [address] COMPREHENSIVE METABOLIC PANEL 98090 ALBUMIN 4.3 g/ dL 08/14/2019 [facility] [address] [address] COMPREHENSIVE METABOLIC PANEL 41434 GLOBULIN 2.4 g/ dL(calc) 08/14/2019 [facility] [address] [address] COMPREHENSIVE METABOLIC PANEL 95087 ALBUMIN/GLOBULIN RATIO 1.8 (calc) 08/14/2019 [facility] [address] [address] COMPREHENSIVE METABOLIC PANEL 87301 BILIRUBIN, TOTAL 1.0 mg/dL 08/14/2019 [facility] [address] COMPREHENSIVE METABOLIC PANEL 80232 ALKALINE PHOSPHATASE 56 U/L 08/14/2019 [facility] [address] COMPREHENSIVE METABOLIC PANEL 83462 AST 18 U/L 08/14/[address] [facility] [address] COMPREHENSIVE METABOLIC PANEL 36979 ALT 28 U/L 08/14/[address] [facility] [address] MAGNESIUM 07861 MAGNESIUM 2.0 mg/dL 06/06/2019 [facility] [address] COMPREHENSIVE METABOLIC PANEL 32704 Glucose 106 mg /dL 06/06/2019 [facility] [address] COMPREHENSIVE METABOLIC PANEL 41784 UREA NITROGEN (BUN) 22 mg/dL 06/06/2019 [facility] [address] COMPREHENSIVE METABOLIC PANEL 57492 CREATININE 1.29 m g/dL 06/06/2019 [facility] [address] COMPREHENSIVE METABOLIC PANEL 06447 eGFR NON-AFR. CYMRO 58 mL/min/1.73m2 06/06/2019 [facility] [address] COMPREHENSIVE METABOLIC PANEL 52447 eGFR 67 mL/min/1.73m2 06/06/2019 [facility] [address] COMPREHENSIVE METABOLIC PANEL 02445 BUN/CREATININE RATIO 17 (calc) 06/06/2019 [facility] [address] COMPREHENSIVE METABOLIC PANEL 33488 SODIUM 138 mm ol/L 06/06/2019 [facility] [address] COMPREHENSIVE METABOLIC PANEL 52042 POTASSIUM 4.2 mm ol/L 06/06/2019 [facility] [address] COMPREHENSIVE METABOLIC PANEL 03466 CHLORIDE 101 mm ol/L 06/06/2019 [facility] [address] COMPREHENSIVE METABOLIC PANEL 07194 CARBON DIOXIDE 29 mmol/L 06/06/2019 [facility] [address] COMPREHENSIVE METABOLIC PANEL 81448 CALCIUM 9.6 mg /dL 06/06/2019 [facility] [address] COMPREHENSIVE METABOLIC PANEL 25852 PROTEIN, TOTAL 6. 9 g/dL 06/06/2019 [facility] [address] COMPREHENSIVE METABOLIC PANEL 65115 ALBUMIN 4.4 g/ dL 06/06/2019 [facility] [address] COMPREHENSIVE METABOLIC PANEL 30089 GLOBULIN 2.5 g/ dL(calc) 06/06/[address] [address] COMPREHENSIVE METABOLIC PANEL 14297 ALBUMIN/GLOBULIN RATIO 1.8 (calc) 06/06/2019 [facility] [address] COMPREHENSIVE METABOLIC PANEL 25372 BILIRUBIN, TOTAL 0.7 mg/dL 06/06/[address] [facility] [address] COMPREHENSIVE METABOLIC PANEL 12476 ALKALINE PHOSPHATASE 45 U/L 06/06/2019 [facility] [employer] [address] COMPREHENSIVE METABOLIC PANEL 42816 AST 21 U/L 06/06/2019 [facility] [address] COMPREHENSIVE METABOLIC PANEL 46559 ALT 34 U/L 06/06/2019 [facility] [address] CULTURE, URINE, ROUTINE 395 CULTURE, URINE, ROUTINE SEE NOTE 04/23/2019 [facility] [address] CULTURE, URINE, ROUTINE 395 CULTURE SEE NOTE 0 04/23/[address] [facility] [address] EXTRA 1014 EXTRA TUBE RECEIVED 04/22 [employer] [employer] [employer] [address] [place] [phone] EXTRA 1014 SPECIMEN TYPE RECEIVED: LAV 0 04/22/2019 [facility] [address] [address] COMPREHENSIVE METABOLIC PANEL 62395 Glucose 94 mg/ dL 04/22/2019 [facility] [address] [address] COMPREHENSIVE METABOLIC PANEL 41191 UREA NITROGEN (BUN) 20 mg/dL 04/22/2019 [facility] [address] [address] COMPREHENSIVE METABOLIC PANEL 89986 CREATININE 1.30 m g/dL 04/22/2019 [facility] [address] [address] COMPREHENSIVE METABOLIC PANEL 10493 eGFR NON-AFR. CYMRO 58 mL/min/1.73m2 04/22/2019 [facility] [address] [address] COMPREHENSIVE METABOLIC PANEL 42119 eGFR 67 mL/min/1.73m2 04/22/2019 [facility] [address] [address] COMPREHENSIVE METABOLIC PANEL 73088 BUN/CREATININE RATIO 15 (calc) 04/22/2019 [facility] [address] [address] COMPREHENSIVE METABOLIC PANEL 66549 SODIUM 139 mm ol/L 04/22/2019 [facility] [address] [address] COMPREHENSIVE METABOLIC PANEL 12976 POTASSIUM 4.2 mm ol/L 04/22/2019 [facility] [address] [address] COMPREHENSIVE METABOLIC PANEL 71584 CHLORIDE 104 mm ol/L 04/22/2019 [facility] [address] [address] COMPREHENSIVE METABOLIC PANEL 04719 CARBON DIOXIDE 27 mmol/L 04/22/2019 [facility] [address] [address] COMPREHENSIVE METABOLIC PANEL 60797 CALCIUM 9.9 mg /dL 04/22/2019 [facility] [address] [address] COMPREHENSIVE METABOLIC PANEL 49113 PROTEIN, TOTAL 7. 1 g/dL 04/22/2019 [facility] [address] COMPREHENSIVE METABOLIC PANEL 01419 ALBUMIN 4.6 g/ dL 04/22/2019 [facility] [address] COMPREHENSIVE METABOLIC PANEL 70128 GLOBULIN 2.5 g/ dL(calc) 04/22/2019 [facility] [address] COMPREHENSIVE METABOLIC PANEL 51695 ALBUMIN/GLOBULIN RATIO 1.8 (calc) 04/22/2019 [facility] [address] COMPREHENSIVE METABOLIC PANEL 54609 BILIRUBIN, TOTAL 0.4 mg/dL 04/22/2019 [facility] [address] COMPREHENSIVE METABOLIC PANEL 28672 ALKALINE PHOSPHATASE 53 U/L 04/22/2019 [facility] [address] COMPREHENSIVE METABOLIC PANEL 73611 AST 21 U/L 04/22/2019 [facility] [address] COMPREHENSIVE METABOLIC PANEL 94739 ALT 34 U/L 04/22/2019 [facility] [address] CULTURE, URINE, ROUTINE 395 CULTURE, URINE, ROUTINE SEE NOTE 01/31/[address] [address] Procedures Procedure Codes Date CULTURE, AEROBIC BACTERIA CPT-4: 44297 10/27/2019 URINALYSIS NONAUTO W/O SCOPE CPT-4: 32618 10/02/2019 URINE CULTURE/ COLONY COUNT CPT-4: 06565 10/02/2019 ROUTINE VENIPUNCTURE CPT-4: 33204 08/13/2019 URINALYSIS NONAUTO W/O SCOPE CPT-4: 02294 08/13/2019 CULTURE, URINE, ROUTINE CPT-4: 395 08/13/2019 COMPREHENSIVE METABOLIC PANEL CPT-4: 26866 08/13/2019 CBC (H/H, RBC, INDICES, WBC, PLT) CPT-4: 29414 2018 COMPREHENSIVE METABOLIC PANEL CPT-4: 45777 06/05/2019 MAGNESIUM CPT-4: 15283 06/05/2019 DEXAMETHASONE SODIUM PHOS CPT-4: J1100 05/21/2019 THER/PROPH/DIAG INJ SC/IM CPT-4: 90043 05/21/2019 TRIAMCINOLONE ACET INJ NOS CPT-4: J3301 05/21/2019 ROUTINE VENIPUNCTURE CPT-4: 10677 04/21/2019 COMPREHENSIVE METABOLIC PANEL CPT-4: 14076 04/21/2019 EXTRA CPT-4: 1014 04/21/2019 CULTURE, URINE, ROUTINE CPT-4: 395 04/21/2019 URINALYSIS NONAUTO W/O SCOPE CPT-4: 06989 04/21/2019 URINALYSIS NONAUTO W/O SCOPE CPT-4: 80685 01/29/2019 CULTURE, URINE, ROUTINE CPT-4: 395 01/29/2019 DRAIN/INJECT JOINT/BURSA CPT-4: 91498 02/19/2018 TRIAMCINOLONE ACET INJ NOS CPT-4: J3301 02/19/2018 DEXAMETHASONE SODIUM PHOS CPT-4: J1100 02/19/2018 THER/PROPH/DIAG INJ SC/IM CPT-4: 09095 02/12/2018 TRIAMCINOLONE ACET INJ NOS CPT-4: J3301 02/12/2018 DEXAMETHASONE SODIUM PHOS CPT-4: J1100 02/12/2018 CEFTRIAXONE SODIUM INJECTION CPT-4: J0696 12/03/2017 THER/PROPH/DIAG INJ SC/IM CPT-4: 79841 12/03/2017 THER/PROPH/DIAG INJ SC/IM CPT-4: 29896 12/03/2017 METHYLPREDNISOLONE INJECTION CPT-4: J2930 12/03/2017 URINALYSIS NONAUTO W/O SCOPE CPT-4: 67259 08/13/2017 STREP A ASSAY W/OPTIC CPT-4: 46099 02/13/2017 DESTRUCT PREMALG LESION (Cryosurgery) CPT-4: 43634 Vital Signs Date Vital 10/27/2019 Blood Pressure [...] 1: 128/78 Code: 8480-6 BMI: 36.0 Code: 19997-7 Heart Rate 1: 68 bpm Height: 5'7" [...] 1: 138/86 Code: 8480-6 BMI: 35.6 Code: 88565-0 Heart Rate 1: 68 bpm Height: 5'7" SpO2: 95% Temperature: 36.6 (C) / 97.8 (F) Weight: 227 lbs 12/03/2017 Blood Pressure 1: 134/84 Code: 8480-6 BMI: 34.3 Code: 62678-2 Heart Rate 1: 68 bpm Height: 5'7" Respiratory Rate: 20 bpm SpO2: 96% Tempera ture: 35.9 (C) / 96.6 (F) Weight: 219 lbs 09/11/2017 Blood Pressure 1: 140/86 Code: 8480-6 BMI: 34.9 Code: 84310-4 Heart Rate 1: 84 bpm Height: 5'7" Respiratory Rate: 20 bpm SpO2: 95% Tempera ture: 36.7 (C) / 98.1 (F) Weight: 223 lbs 08/13/2017 Blood Pressure 1: 142/94 Code: 8480-6 BMI: 34.5 Code: 68437-0 Heart Rate 1: 76 bpm Height: 5'7" Respiratory Rate: 20 bpm SpO2: 96% Tempera ture: 37.1 (C) / 98.8 (F) Weight: 220 lbs 11/17/2016 Blood Pressure 1: 118/78 Code: 8480-6 He art Rate 1: 64 bpm 07/19/2016 Blood Pressure 1: 112/58 Code: 8480-6 BMI: 31.6 Code: 07883-0 Heart Rate 1: 88 bpm Height: 5'7" Respiratory Rate: 22 bpm SpO2: 98% Tempera ture: 36.3 (C) / 97.4 (F) Weight: 202 lbs 06/09/2016 Blood Pressure 1: 138/84 Code: 8480-6 BMI: 32.1 Code: 73999-8 Heart Rate 1: 58 bpm Height: 5'7" Respiratory Rate: 20 bpm SpO2: 97% Tempera ture: 36.6 (C) / 97.8 (F) Weight: 205 lbs 11/08/2015 Blood Pressure 1: 142/80 Code: 8480-6 BMI: 32.4 Code: 30729-8 Heart Rate 1: 76 bpm Height: 5'7" Respiratory Rate: 20 bpm Temperature: 36 .6 (C) / 97.9 (F) Weight: 207 lbs 06/14/2015 Blood Pressure 1: 126/80 Code: 8480-6 Heart Rate 1: 84 bpm Respiratory Rate: 20 bpm Temperature: 36.8 (C) / 98.2 (F) Weight: 206 lbs 05/18/2015 Blood Pressure 1: 124/80 Code: 8480-6 BMI: 32.3 Code: 62724-2 Heart Rate 1: 68 bpm Height: 5'7" Respiratory Rate: 20 bpm Temperature: 36 .4 (C) / 97.6 (F) Weight: 206 lbs 02/22/2015 Blood Pressure 1: 126/78 Code: 8480-6 BMI: 32.1 Code: 55334-2 Heart Rate 1: 76 bpm Height: 5'7" Respiratory Rate: 20 bpm Temperature: 36 .6 (C) / 97.9 (F) Weight: 205 lbs 12/02/2014 Blood Pressure 1: 124/80 Code: 8480-6 BMI: 32.7 Code: 86629-3 Heart Rate 1: 70 bpm Height: 5'7" Respiratory Rate: 18 bpm Temperature: 36 .6 (C) / 97.9 (F) Weight: 209 lbs 08/18/2014 Blood Pressure 1: 132/94 Code: 8480-6 BMI: 34.5 Code: 88316-7 Heart Rate 1: 84 bpm Height: 5'6" Respiratory Rate: 20 bpm Temperature: 36 .6 (C) / 97.9 (F) Weight: 217 lbs 07/08/2014 Blood Pressure 1: 142/88 Code: 8480-6 BMI: 34.3 Code: 67913-6 Heart Rate 1: 72 bpm Height: 5'6" [...] Visit Encounters Encounter Performer Location Codes Date ([id number]) OFFICE/OUTPATIENT VISIT EST Diagnosis: Allergic rhinitis[ICD10: J30.9] Diagnosis: Postnasal drip[ICD10: R09.82] Sapna Salas CPT-4: 65727 12/19/2019 ([id number]) NO CHARGE Diagnosis: Infected sebaceous cyst[ICD10: L72.3] Sapna CappsAmarjit PAULYNDER [employer] CPT-4: 77671 11/03/2019 ([id number]) OFFICE/OUTPATIENT VISIT EST Diagnosis: Disorder of the skin and subcutaneous tissue, unspecified[ICD10: L98.9] Diagnosis: Infected sebaceous cyst[ICD10: L72.3] Diagnosis: Local infection of the skin and subcutaneous tissue, unspecified[ICD10: L08.9] Lashell CappsAmarjit PAULYNDER [employer] CPT-4 : 32652 10/27/2019 ([id number]) OFFICE/OUTPATIENT VISIT EST Diagnosis: Suprapubic abdominal pain[ICD10: R10.2] Diagnosis: Aortic regurgitation[ICD10: I35.1] Sapna Calos SANCHEZ LOTUS SAmarjit PAULYNDER [employer] CPT-4: 38581 10/02/2019 ([id number]) OFFICE/OUTPATIENT VISIT EST Diagnosis: Chest pain[ICD10: R07.9] Lashell CappsAmarjit HAMZAH MANUELITO [employer] CPT-4: 91770 08/25/2019 ([id number]) OFFICE/OUTPATIENT VISIT EST Diagnosis: Thoracic back pain[ICD10: M54.6] Diagnosis: Disorder of kidney and ureter, unspecified[ICD10: N28.9] Diagnosis: Personal history of nicotine dependence[ICD10: Z87.891] 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 CPT-4: 79530 06/05/2019 ([id number]) OFFICE/OUTPATIENT VISIT EST Diagnosis: Other pruritus[ICD10: L29.8] Diagnosis: Pain in right knee[ICD10: M25.561] Lashell LIVE DO [facility] CPT-4: 41285 05/21/2019 ([id number]) NURSE/OUTPATIENT VISIT EST Diagnosis: Edema, unspecified[ICD10: R60.9] Sapna Alcantarajasongustabo BRUNSONSAPNA Vickie LIVE Vend [facility] CPT-4: 52157 04/21/2019 ([id number]) OFFICE/OUTPATIENT VISIT EST Diagnosis: Diverticulitis of large intestine without perforation or abscess without bleeding[ICD10: K57.32] Diagnosis: Snoring[ICD10: R06.83] Diagnosis: Other constipation[ICD10: K59.09] Lashell LIVE Vend [facility] CPT-4: 38109 02/24/2019 ([id number]) OFFICE/OUTPATIENT VISIT EST Diagnosis: Diverticulitis of large intestine without perforation or abscess with bleeding[ICD10: K57.33] Nancy CORRAL Vickie LIVE Vend [facility] CPT-4: 29719 02/04/2019 ([id number]) OFFICE/OUTPATIENT VISIT EST Diagnosis: Left lower quadrant pain[ICD10: R10.32] Nancy LORA Vickie LIVE Vend [facility] CPT-4: 96321 01/29/2019 OFFICE/OUTPATIENT VISIT EST Diagnosis: Dermatitis, unspecified[ICD10: L30.9] Diagnosis: Gastro-esophageal reflux disease without esophagitis[ICD10: K21.9] Diagnosis: Palpitations[ICD10: R00.2] [facility]apna [facility]AL [facility] 12545 12/19/2018 ([id number]) OFFICE/OUTPATIENT VISIT EST Diagnosis: Gastro-esophageal reflux disease without esophagitis[ICD10: K21.9] Diagnosis: Dysphagia, pharyngoesophageal phase[ICD10: R13.14] Sapna BRUNSONLINE Vickie [employer] [facility] CPT-4: 20091 11/11/2018 ([id number]) PREV VISIT EST AGE 40-64 Diagnosis: Encounter [...] and disorders of digestive system[ICD10: K91.89] Lashell [employer] CPT-4: 99 396 10/09/2018 ([id number]) OFFICE/OUTPATIENT VISIT EST Diagnosis: Pain in right knee[ICD10: M25.561] Diagnosis: Pain in right hip[ICD10: M25.551] Lashell NICHOLE Manuel Vickie [employer] CPT-4: 87854 02/12/2018 OFFICE/OUTPATIENT VISIT EST Diagnosis: Essential (primary) hypertension[ICD10: I10] Diagnosis: Other chest pain[ICD10: R07.89] Lashell BRUNSONLINE Vickie ILVE [facility] CPT-4: 32015 12/03/2017 ([id number]) OFFICE/OUTPATIENT VISIT EST Diagnosis: Essential (primary) hypertension[ICD10: I10] Sapna BRUNSONLINE Vickie [employer] 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] Sapna LIVE [facility] CPT-4: 26551 08/13/2017 ([id number]) OFFICE/OUTPATIENT VISIT EST Diagnosis: Acute pharyngitis, unspecified[ICD10: J02.9] Sapna LIVE [facility] CPT-4: 77841 02/13/2017 ([id number]) PREV VISIT EST AGE 40-64 Diagnosis: Encounter for general adult medical examination without abnormal findings[ICD10: Z00.00] Diagnosis: Essential (primary) hypertension[ICD10: I10] 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] Sapna LIVE [facility] CPT-4: 06081 07/19/2016 OFFICE/OUTPATIENT VISIT EST Diagnosis: Pain in thoracic spine[ICD10: M54.6] Diagnosis: Disorder of the skin and subcutaneous tissue, unspecified[ICD10: L98.9] Sobia Monreal SAPNA LIVE [facility] CPT-4: 32473 06/09/2016 OFFICE/OUTPATIENT VISIT EST Diagnosis: Retention of urine, unspecified[ICD10: R33.9] Diagnosis: Urinary tract infection, site not specified[ICD10: N39.0] Chelsie LIVE [facility] CPT-4: 17736 11/08/2015 ([id number]) OFFICE/OUTPATIENT VISIT EST Diagnosis: DERMATITIS NOS[ICD9: 692.9] Diagnosis: SEBACEOUS CYST[ICD9: 706.2] Sapna Capps. 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 CPT-4: 18920 12/02/2014 ([id number]) OFFICE/OUTPATIENT VISIT EST Diagnosis: Thoracic back pain[ICD9: 724.1] Diagnosis: ACTINIC KERATOSIS[ICD9: 702.0] Sapna LIVE DO [facility] CPT-4: 82518 08/18/2014 OFFICE/OUTPATIENT VISIT NEW Diagnosis: HYPERTENSION[ICD9: 401.9] Diagnosis: Thoracic back pain[ICD9: 724.1] Diagnosis: GERD[ICD9: 530.81] Diagnosis: Adrenal tumor[ICD9: 239.7] Sapna AU Vend [facility] CPT-4: 07139 07/08/2014 ([id number]) OFFICE/OUTPATIENT VISIT NEW Diagnosis: HYPERTENSION[ICD9: 401.9] Diagnosis: GERD[ICD9: 530.81] Sapna LIVE DO [facility] CPT-4: 01276 07/08/2014 Plan of Care Planned Activity Notes Codes Status Date Visit Diagnosis Plan: Allergic rhinitis Discussion: Cl aritin 10mg po BID Call Sunday with how symptoms are doing Will also add famotodine at bedtime to cover for reflux etiology ICD-9 : 477.9 ICD-10 : J30.9 12/19/2019 Patient Education: famotidine- [employer] [id number] [email or web address]/resources/getResource/[email or web address] Completed 12/19/2019 Visit Diagnosis Plan: Infected sebaceous cyst Discussi on: Sent out 1 week of doxycycline ICD-9 : 706.2 ICD-10 : L72.3 11/03/2019 Appointment: Sapna Live [facility]Ptel[facility] [phone] [facility] [facility] 11/03/2019 Visit Diagnosis Plan: Local [...] : L08.9 10/27/2019 Appointment: [facility]hell Joe [facility] [facility] 10/27/2019 Patient Education: tramadol- [employer] [id number] [email or web address]/resources/getResource/[email or web address] Completed 10/27/2019 Visit Plan: Update Low Dose [...] : I35.1 10/02/2019 Appointment: Sapna Live WPtel: [facility] FO[facility] 10/02/2019 Care Plan: Referral Order SNOMED-CT : [id number] Pending 10/02/2019 Visit Diagnosis Plan: Chest pain Discussion: will star t with cxray and rib xray. discussed that could be lung, rib, muscle but will start with cxray and patient may need echo. he verbalized understanding. ICD-9 : 786.50 ICD-10 : R07.9 08/25/2019 Appointment: Lashell Joe [facility] [facility] 08/25/2019 Visit Diagnosis Plan: Adrenal [...] ct of lungs to be done at [facility]. ICD-9 : V15.82 ICD-10 : Z87.891 08/13/2019 Visit Diagnosis Plan: Thoracic back pain Discussion: c hronic pain. will refer to dr. stallings at [place] for evaluation and treatment ICD-9 : 724.1 [...] 593.9 ICD-10 : N28.9 08/13/2019 Appointment: Lashell Jeo [address] [place] [address] [place] FOLLOW UP 08/13/2019 Visit Diagnosis Plan: Renal insufficiency Discussion: Labs discussed Continue off NSAIDS Hydrate Recheck Chemistry 3mos ICD-9 : 593.9 ICD-10 : N28.9 07/03/2019 Visit Diagnosis Plan: Sigmoid diverticulitis Discussio n: Bactrim/Flagyl Hull diet To ER this weekend if worsening ICD-9 : 562.11 ICD-10 : K57.32 07/03/2019 Visit Diagnosis Plan: Jock itch Discussion: Diflucan a nd topical nystatin ICD-9 : 110.3 ICD-10 : B35.6 07/03/2019 Appointment: Sapna Live WPtel: [phone] [facility] US FOLLOW UP 07/03/2019 Patient Education: fluconazole- [employer] [id number] Completed 07/03/2019 Patient Education: nystatin- [employer] [id number] Completed 07/03/2019 Visit Diagnosis Plan: Disorder of [...] ICD-10 : R25.2 06/05/2019 Appointment: Lashell Joe [address] [place] [address] NO SHOW - FORGIVEN 06/05/2019 Appointment: Lashell Joe [address] [place] [address] ACUTE ILLNESS 06/05/2019 Visit Diagnosis Plan: Other [...] ICD-10 : M25.561 05/21/2019 Appointment: Lashell Joe [address] [place], [place] [address] ACUTE ILLNESS 05/21/2019 Patient Education: hydroxyzine HCl- [employer] [id number] https://[email or web address]/[email or web address]/resources/getResource/61/[email or web address] Completed 05/21/2019 Appointment: Sapna Live WPtel: [phone] [facility] 05/19/19 1645---see note put in chart today (km) CANCELED 05/19/2019 Appointment: Sapna LiveAmarjit WPtel: [phone] [facility] CANCELED 05/05/2019 Appointment: Sapna LiveAmarjit WPtel: [phone] [facility] US UA 04/21/2019 Visit Diagnosis Plan: Snoring Discussion: [...] : K59.09 02/24/2019 Appointment: Lashell Joe [address] Hospital Follow Up 02/24/2019 Visit Diagnosis Plan: Diverticulitis of large intestine without perforation or abscess with bleeding Discussion: Continue flagyl and cipro. A dvance diet to bland. BRAT diet advised. Avoid nuts, seeds, popcorn, roughage. RTC if abdominal pain worsens or does not improve. ICD-9 : 562.13 ICD-10 : K57.33 02/04/2019 Appointment: Nancy Mendiola [address] FOLLOW UP 02/04/2019 Visit Diagnosis Plan: [...] : R10.32 01/29/2019 Appointment: Nancy Mendiola [address] ACUTE ILLNESS 01/29/2019 Care Plan: CT [...] : L30.9 12/19/2018 Appointment: Sapna Live WPtel: [address] [place] [address] ACUTE ILLNESS 12/19/2018 Visit Diagnosis Plan: Gastro-esophageal reflux disease without esophagitis Discussion: Continue protonix at 40mg daily Hold mobic No NSAIDS Hold all MVs If persists then will need EGD ICD-9 : 530.81 ICD-10 : K21.9 11/11/2018 Appointment: Sapna Live WPtel: [address] [place] [address] FOLLOW UP 11/11/2018 Visit Diagnosis Plan: Encounter for [facility] adult medical examination without abnormal [...] of digestive system Discussion: continue with skip peters. instructed patient to return to dr. bettencourt [...] ICD-10 : Z12.2 10/09/2018 Appointment: Lashell Joe [address] [place], [place] [id number] Annual Well Visit 10/09/2018 Patient Education: gabapentin- [employer] [id number] Completed 10/09/2018 Patient Education: Kegel Exercises Comple catalina 10/09/2018 Patient Education: High Blood Pressure Co mpleted 10/09/2018 Visit Diagnosis Plan: Pain in right knee Discussion: c orticosteroid injection administered as described above. patient tolerated well. instructed to rtc in 3- 4 months if needed for additional injection. ICD-9 : 719.46 ICD-10 : M25.561 02/19/2018 Appointment: Lashell Joe [address] OFFICE SURGERY 02/19/2018 Patient Education: Patient [...] ICD-10 : M25.561 02/12/2018 Appointment: Lashell Joe [address] ACUTE ILLNESS 02/12/2018 Patient Education: Patient Medication Summary Completed 02/12/2018 Care Plan: X-RAY EXAM OF KNEE 1 [place] 2 [place] : [address]-2 Pending 02/12/2018 Visit Diagnosis Plan: Other chest [...] ICD-10 : I10 12/03/2017 Appointment: Lashell Joe [place] [phone] ESTABLISHED PATIENT 12/03/2017 Patient Education: Patient Medication Summary Completed 12/03/2017 Visit Diagnosis Plan: Essential (primary) hypertension Discussion: Increase quinapril to 40mg daily BP check in 1month ICD-9 : 401.9 ICD-10 : I10 09/11/2017 Appointment: Sapna Live WPtel: [address] [place] [address] US FOLLOW UP 09/11/2017 Patient Education: Patient Medication Summary Completed 09/11/2017 Appointment: Sapna Live WPtel: [address] [place] [address] US RESCHEDULED 08/22/2017 Visit Diagnosis Plan: Left lower quadrant pain Discuss ion: Update colonoscopy ICD-9 : 789.04 ICD-10 : R10.32 08/13/2017 Visit Diagnosis Plan: Essential (primary) hypertension Discussion: Increase quinapril to 20mg daily Follow Up: 1 months ICD-9 : 401.9 ICD-10 : I10 08/13/2017 Visit Diagnosis Plan: Encounter for [facility] adult medical examination without abnormal findings Discussion: Update fasting lab ICD-9 : V70.9 ICD-10 : Z00.00 08/13/2017 Appointment: Sapna Live WPtel: [address] [place] [address] Annual Well Visit 08/13/2017 Patient Education: Patient Medication Summary Completed 08/13/2017 Appointment: Sapna Live WPtel: [address] [place] [address] THROAT SWAB 02/13/2017 Patient Education: Patient Medication Summary Completed 02/13/2017 Appointment: Sapna Live WPtel: [address] [place], [place] [phone] [place] BP CHECK 11/17/2016 Patient Education: Patient Medication Summary Completed 11/17/2016 Visit Plan: Due for colonoscopy in 2018 Had shingles shot and flu shot Change quinapril hct to plain quinapril and see if muscles twitches improve Fwup with Dr. Braga Lab discussed Discussed diet/exercise at length Check CT abdomen Recheck 3mos 07/19/2016 Appointment: Sapna Live WPtel: [address] [place], [place] [address] [place] 07/18 confirmed`sl PHYSICAL 07/19/2016 Patient Education: [...] earliest convenience 06/09/2016 Appointment: Sobia Monreal WPtel: [address] [place], [place] [phone] ACUTE ILLNESS 06/09/2016 Patient Education: Patient Medication Summary Completed 06/09/2016 Referral: Demario Braga WPtel: [address] [place], [place] [phone] Referral Initiated 11/12/2015 Visit Plan: Continue indwelling catheter until follow-up with Dr. Braga Continue Bactrim and Cipro Pyridium TID for Bladder spasms 11/08/2015 Appointment: Chelsie Teixeira WPtel: [address] [place], [place] [phone] ER Follow UP 11/08/2015 Patient Education: Patient Medication Summary Completed 11/08/2015 Referral: Abdiel Tucker WPtel: 101[address] [facility] Referral Initiated 06/21/2015 Visit Plan: Prednisone 20mg daily for 1w [place] See surgery of cyst removal 06/14/2015 Appointment: Sapna Live WPtel: [address] [place], [place] [phone] 06/11 vm cn 06/14 vm cn FOLLOW UP 2014 Patient Education: Patient Medication Summary Completed 06/14/2015 Visit Plan: Warm moist compresses to Lef t shoulder lesion and apply topical Mupirocin twice daily Complete Cephalexin x 7 days as directed Resume Culturelle daily 05/18/2015 Appointment: Chelsie Teixeira WPtel: [address] [place], [place] [phone] ACUTE ILLNESS 05/18/2015 Patient Education: Patient Medication Summary Completed 05/18/2015 Visit Plan: Check fasting lab Use pain m eds prn with miralax on the day that takes pain meds 02/22/2015 Appointment: Sapna Live WPtel: [address] [place], [place] [phone] 02/19 cn 02/19 appt confirmed-lb ACUTE ILLNESS 5 Patient Education: Patient Medication Summary Completed 02/22/2015 Visit Plan: Increase neurontin to 300mg q HS Continue flexeril and tramadol Call in 1mo on how higher dose of gabapentin 12/02/2014 Appointment: Sapna Live WPtel: [address] [place], [place] [phone] FOLLOW UP 12/02/2014 Patient Education: Patient Medication Summary Completed 12/02/2014 [id number] Referral Appointment Confirmed 09/15/2014 Visit Plan: Proceed with pain doctor for possible injection vs nerve block Trial of lidoderm patch Cryotherapy to lesions as above 08/18/2014 Appointment: Sapna Live WPtel: [address] [place], [place] [phone] ACUTE ILLNESS 08/18/2014 Patient Education: Patient Medication Summary Completed 08/18/2014 Patient Education: Patient Medication Summary Completed 08/13/2014 Visit Plan: Continue current meds Obtain most recent lab results Check thoracic spine x-rays Needs updated CT scan of adrenal tumor 07/08/2014 Appointment: Sapna Live WPtel: [address] [place], [place] [phone] 07/07 vm NEW PATIENT 07/08/2014 Patient Education: Patient Medication Summary Completed 07/08/2014 Patient Education: Patient Medication Summary Completed 07/08/2014 Referral: Ronald Suhail Thibodeaux WPtel: [phone] [id number] [place] Referral Completed Referral: Toby Bettencourt WPtel: [address] [place] [address] [address] [id number] [place] Referral Completed Referral: Rosario Monahan WPtel: [phone] [facility] [address] [place] Referral Appointment [...]
--- OUTSIDE RECORDS SUMMARY | 2020-02-05 07:50 | XMS REPORT | CCD ---
Author Author Jai Live D.O. 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 Phone Sapna Live D.O., PP Unavailable CCM Unavailable Summary Purpose Interface Exchange Insurance Providers Payer name Policy type / Coverage type Covered democrat ID Effective Begin Date Effective End Date GPA Commercial Insurance [id number] 2019 Unknown Family history Mother Diagnosis Age At Onset Cancer Unknown Father Diagnosis Age At Onset Congestive heart failure Unknown Coronary Artery Disease(CAD) Unknown Social History Social History Element Codes Description Effective Dates Tobacco history SNOMED CT: 8305589 Former smoker 10/09/2018 Marital status Unknown 07/08/2014 Number of children Unknown 1 07/08/2014 Employment Unknown Currently employed [employer] 07/08/[address]: 247381886 Never drinks alcohol 2013 Has the patient [...] Date Active famotidine 20 mg tablet RxNorm: 582371 1 Tablet(s) Oral QPM for postnasal drip/stomach 12/19/2019 01/18/2020 Active tramadol 50 mg tablet RxNorm: 423361 1 Tablet(s) Oral t hree times a day as needed for pain along with two tylenol 12/03/2019 No Stop Date Active doxycycline hyclate 100 mg capsule RxNorm: 1196443 1 Cap lee(s) Oral two times a day 11/03/2019 11/02/2019 Inactive doxycycline hyclate 100 mg capsule RxNorm: 1676162 1 Cap lee(s) Oral two times a day 11/03/2019 11/10/2019 Inactive tramadol 50 mg tablet RxNorm: 963306 1 Tablet(s) Oral t hree times a day as needed for pain along with two tylenol 10/27/2019 10/26/2019 Inactive tramadol 50 mg tablet RxNorm: 334616 1 Tablet(s) Oral t hree times a day as needed for pain along with two tylenol 10/27/2019 10/27/2019 Inactive cyclobenzaprine 10 mg tablet RxNorm: 723414 1 Tablet(s) Oral th ree times a day 10/27/2019 12/18/2019 Inactive Bactrim DS 800 mg-160 mg tablet RxNorm: 851912 1 Tablet(s) Oral two times a day 10/27/2019 11/03/2019 Inactive Bactrim DS 800 mg-160 mg tablet RxNorm: 585301 1 Tablet(s) Oral two times a day 10/27/2019 10/26/2019 Inactive tramadol 50 mg tablet RxNorm: 396608 1 Tablet(s) Oral t hree times a day as needed for pain along with two tylenol 09/29/2019 10/26/2019 Inactive quinapril 40 mg tablet RxNorm: 866106 1 Tablet(s) Oral QD 09/18/2019 03/15/2020 Active Patient requests 90 days supply tramadol 50 mg tablet RxNorm: 569538 1 Tablet(s) Oral t hree times a day as needed for pain along with two tylenol 08/28/2019 08/28/2019 Inactive tramadol 50 mg tablet RxNorm: 791756 1 Tablet(s) PO TID as needed for pain along with two tylenol 08/25/2019 08/27/2019 Inactive pantoprazole 40 mg tablet,delayed release RxNorm: 033823 1 Tabl et(s) Oral QD 08/13/2019 No Stop Date Active Vitamin D3 1,000 unit capsule RxNorm: 135130 1 Capsule(s) Oral QD 1 10/13/2018 12/18/2019 Inactive tamsulosin 0.4 mg capsule RxNorm: 370090 1 Capsule(s) Oral QPM 07/2612/18/2019 Inactive Protonix 40 mg tablet,delayed release RxNorm: 166978 TA KE 1 TABLET BY MOUTH TWICE A DAY 08/04/2019 08/12/2019 Inactive Flagyl 500 mg tablet RxNorm: 530096 1 Tablet(s) Oral three time s a day 07/03/2019 07/13/2019 Inactive fluconazole 100 mg tablet RxNorm: 928175 1 Tablet(s) Oral QD 201807/10/2019 Inactive Bactrim DS 800 mg-160 mg tablet RxNorm: 228568 1 Tablet(s) Oral two times a day 07/03/2019 07/13/2019 Inactive nystatin 100,000 unit/gram topical cream RxNorm: 940322 Application Topical two times a day 07/03/2019 08/12/2019 Inactive gabapentin 600 mg tablet RxNorm: 782496 Tablet(s) TAKE 1 TABLET BY MOUTH EVERY NIGHT AT BEDTIME 06/25/2019 08/12/2019 Inactive - First Attempt Ref: [id number] quinapril 40 mg tablet RxNorm: 192585 1 Tablet(s) Oral QD 06/23/2019 09/17/2019 Inactive Patient requests 90 days supply tramadol 50 mg tablet RxNorm: 689365 1 Tablet(s) PO TID as needed for pain along with two tylenol 05/23/2019 08/24/2019 Inactive hydroxyzine HCl 25 mg tablet RxNorm: 599374 1 Tablet(s) PO TID as needed 05/21/2019 08/12/2019 Inactive Elimite 5 % topical cream RxNorm: 089532 1 Application TOP QHS apply head to toe and was off in morning 05/19/2019 07/02/2019 Inactive Protonix 40 mg tablet,delayed release RxNorm: 123228 1 Tablet(s ) PO BID 05/05/2019 08/02/2019 Inactive - First Attempt Ref: [id number] gabapentin 600 mg tablet RxNorm: 723523 Tablet(s) TAKE 1 TABLET BY MOUTH EVERY NIGHT AT BEDTIME 04/25/2019 06/24/2019 Inactive - First Attempt Ref: [id number] tramadol 50 mg tablet RxNorm: 460402 1 Tablet(s) PO TID as needed for pain along with two tylenol 04/21/2019 05/22/2019 Inactive quinapril 40 mg tablet RxNorm: 349235 1 Tablet(s) PO QD 04/01/2019 Inactive Patient requests 90 days supply fenofibrate micronized 134 mg capsule RxNorm: 571102 1 Capsule(s) PO QD Due for updated fasting labs 03/31/2019 08/12/2019 Inactive dicyclomine 10 mg capsule RxNorm: 415101 1 Capsule(s) PO TID as needed 02/24/2019 05/20/2019 Inactive Flagyl 500 mg tablet RxNorm: 354626 1 Tablet(s) PO Q8H 02/24/201908/2019 Inactive ciprofloxacin 500 mg tablet RxNorm: 296323 1 Tablet(s) PO BID 02/2403/09/2019 Inactive Flagyl 500 mg tablet RxNorm: 711823 1 Tablet(s) PO Q6H 01/30/2019 Inactive ciprofloxacin 500 mg tablet RxNorm: 239906 1 Tablet(s) PO BID 01/3001/29/2019 Inactive Flagyl 500 mg tablet RxNorm: 616984 1 Tablet(s) PO Q6H 01/30/201904/2019 Inactive ciprofloxacin 500 mg tablet RxNorm: 955990 1 Tablet(s) PO BID 01/3002/05/2019 Inactive gabapentin 600 mg tablet RxNorm: 293830 TAKE 1 TABLET B Y MOUTH EVERY NIGHT AT BEDTIME 01/27/2019 04/24/2019 Inactive - First Attempt Ref: [id number] tramadol 50 mg tablet RxNorm: 166249 1 Tablet(s) PO TID as needed for pain along with two tylenol 01/08/2019 04/20/2019 Inactive fenofibrate micronized 134 mg capsule RxNorm: 610282 1 Capsule(s) PO QD Due for updated fasting labs 01/02/2019 03/30/2019 Inactive quinapril 40 mg tablet RxNorm: 881555 1 Tablet(s) PO QD 01/01/2019 Inactive Patient requests 90 days supply Protonix 40 mg tablet,delayed release RxNorm: 379171 TA KE 1 TABLET BY MOUTH TWICE A DAY 01/01/2019 03/31/2019 Inactive - First Attempt Ref: [id number] Protonix 40 mg tablet,delayed release RxNorm: 427458 TA KE 1 TABLET BY MOUTH TWICE A DAY 12/25/2018 12/31/2018 Inactive - First Attempt Ref: [id number] gabapentin 600 mg tablet RxNorm: 725365 TAKE 1 TABLET B Y MOUTH EVERY NIGHT AT BEDTIME 12/02/2018 01/26/2019 Inactive - First Attempt Ref: [id number] Protonix 40 mg tablet,delayed release RxNorm: 970156 1 Tablet(s ) PO BID 11/11/2018 12/24/2018 Inactive Protonix 40 mg tablet,delayed release RxNorm: 432982 1 Tablet(s ) PO BID 10/09/2018 11/10/2018 Inactive gabapentin 600 mg tablet RxNorm: 669960 1 Tablet(s) PO QHS 10/09/1912/01/2018 Inactive quinapril 40 mg tablet RxNorm: 722661 1 Tablet(s) PO QD 1 TABLE T(S) PO QD 08/08/2018 08/07/2018 Inactive Patient requests 9 0 days supply quinapril 40 mg tablet RxNorm: 298412 1 Tablet(s) PO QD 08/08/2018 Inactive Patient requests 90 days supply meloxicam 15 mg tablet RxNorm: 406827 1 Tablet(s) PO QD 08/08/2018 Inactive gabapentin 300 mg capsule RxNorm: 886632 1 CAPSULE(S) P O QHS DUE FOR WELLNESS VISIT 08/07/2018 10/08/2018 Inactive due for followup meloxicam 15 mg tablet RxNorm: 574015 Tablet(s) 1 TABLET(S) PO QD 1 10/07/2017 08/07/2018 Inactive fenofibrate micronized 134 mg capsule RxNorm: 977828 1 Capsule(s) PO QD Needs updated fasting labs!!!!!! 07/08/2018 07/07/2018 Inactive fenofibrate micronized 134 mg capsule RxNorm: 231374 1 Capsule( s) PO QD 07/08/2018 01/01/2019 Inactive fenofibrate micronized 134 mg capsule RxNorm: 325367 1 Capsule(s) PO QD Needs updated fasting labs!!!!!! 06/21/2018 07/08/2018 Inactive Medrol (Daniel) 4 mg tablets in a dose pack RxNorm: 789596 Tablet(s) PO As Directed 05/06/2018 05/05/2018 Inactive Medrol (Daniel) 4 mg tablets in a dose pack RxNorm: 341393 Tablet(s) PO As Directed 05/06/2018 08/07/2018 Inactive quinapril 40 mg tablet RxNorm: 633523 1 TABLET(S) PO QD 05/02/2018 Inactive Patient requests 90 days supply fenofibrate micronized 134 mg capsule RxNorm: 424978 1 Capsule(s) PO QD Needs updated fasting labs 04/29/2018 05/28/2018 Inactive Move Free Joint Health 750 mg-100 mg-1.65 mg-108 mg tablet R xNorm: 1 Tablet(s) PO QD 02/12/2018 03/13/2018 Inactive fenofibrate micronized 134 mg capsule RxNorm: 495846 Ca psule(s) 1 CAPSULE(S) PO QD 01/29/2018 06/21/2018 Inactive quinapril 40 mg tablet RxNorm: 180550 1 TABLET(S) PO QD 11/26/2017 Inactive Patient requests 90 days supply fenofibrate micronized 134 mg capsule RxNorm: 305434 1 CAPSULE( S) PO QD 11/06/2017 01/29/2018 Inactive gabapentin 300 mg capsule RxNorm: 995065 1 CAPSULE(S) P O QHS DUE FOR WELLNESS VISIT 10/24/2017 07/20/2018 Inactive due for followup meloxicam 15 mg tablet RxNorm: 101334 1 TABLET(S) PO QD 10/24/2017 Inactive quinapril 40 mg tablet RxNorm: 841464 1 Tablet(s) PO QD 10/24/2017 Inactive fenofibrate micronized 134 mg capsule RxNorm: 727395 1 Capsule( s) PO QD 08/22/2017 11/05/2017 Inactive fenofibrate micronized 134 mg capsule RxNorm: 123506 1 Capsule( s) PO QD 08/22/2017 08/21/2017 Inactive quinapril 20 mg tablet RxNorm: 531546 1 Tablet(s) PO QD 08/13/2017 Inactive gabapentin 300 mg capsule RxNorm: 650785 1 Capsule(s) P O QHS Due for wellness visit 08/06/2017 10/23/2017 Inactive due for followup gabapentin 300 mg capsule RxNorm: 004180 1 Capsule(s) P O QHS Due for wellness visit 08/02/2017 08/05/2017 Inactive due for followup meloxicam 15 mg tablet RxNorm: 410502 1 Tablet(s) PO QD 08/01/2017 Inactive gabapentin 300 mg capsule RxNorm: 122932 1 Capsule(s) P O QHS Due for wellness visit 08/01/2017 08/01/2017 Inactive due for followup gabapentin 300 mg capsule RxNorm: 843145 1 Capsule(s) P O QHS Due for wellness visit 08/01/2017 08/02/2017 Inactive gabapentin 300 mg capsule RxNorm: 952362 1 Capsule(s) PO QHS 201605/12/2017 Inactive quinapril 10 mg tablet RxNorm: 209071 1 Tablet(s) PO QD replace s quinapril hct 02/12/2017 08/12/2017 Inactive meloxicam 15 mg tablet RxNorm: 563883 1 Tablet(s) PO QD 02/05/2017 Inactive quinapril 10 mg tablet RxNorm: 782950 1 Tablet(s) PO QD replace s quinapril hct 11/16/2016 02/12/2017 Inactive gabapentin 300 mg capsule RxNorm: 668843 1 Capsule(s) PO QHS 201602/12/2017 Inactive quinapril 10 mg tablet RxNorm: 991028 1 Tablet(s) PO QD replace s quinapril hct 10/16/2016 11/15/2016 Inactive gabapentin 300 mg capsule RxNorm: 836878 1 Capsule(s) PO QHS 201511/15/2016 Inactive quinapril 10 mg tablet RxNorm: 318829 1 Tablet(s) PO QD replace s quinapril hct 07/19/2016 10/15/2016 Inactive meloxicam 15 mg tablet RxNorm: 821619 1 Tablet(s) PO QD 07/10/2016 Inactive meloxicam 15 mg tablet RxNorm: 457927 TAKE ONE TABLET BY MOUTH ULKE Y 07/10/2016 07/09/2016 Inactive meloxicam 15 mg tablet RxNorm: 923199 1 Tablet(s) PO QD 07/06/2016 Inactive meloxicam 15 mg tablet RxNorm: 327897 1 Tablet(s) PO QD 06/09/2016 Inactive Multivitamin & Mineral Formula tablet RxNorm: 1 Tablet(s) PO Q D 06/02/2016 07/01/2016 Inactive tamsulosin 0.4 mg capsule RxNorm: 351509 1 Capsule(s) PO QHS 201507/01/2016 Inactive Move Free Joint Health 750 mg-100 mg-1.65 mg-108 mg tablet R xNorm: 1 Tablet(s) PO QD 06/02/2016 07/01/2016 Inactive gabapentin 300 mg capsule RxNorm: 991292 1 Capsule(s) PO QHS 201508/27/2016 Inactive gabapentin 300 mg capsule RxNorm: 852631 Capsule(s) ALFONZO E ONE CAPSULE BY MOUTH AT BEDTIME 02/28/2016 05/27/2016 Inactive quinapril 10 mg-hydrochlorothiazide 12.5 mg tablet RxNorm: 3 24318 Tablet(s) TAKE ONE TABLET BY MOUTH EVERY MORNING 01/14/2016 07/18/2016 Inactive gabapentin 300 mg capsule RxNorm: 013538 TAKE ONE CAPSULE BY [facility] AT BEDTIME 12/28/2015 02/27/2016 Inactive Urecholine 25 mg tablet RxNorm: 460184 1 Tablet(s) PO TID 11/09/2015 07/18/2016 Inactive phenazopyridine 100 mg tablet RxNorm: 5170497 1 Tablet(s ) PO TID as needed for bladder spasms. 11/08/2015 11/08/2015 Inactive quinapril 10 mg-hydrochlorothiazide 12.5 mg tablet RxNorm: 3 31924 TAKE ONE TABLET BY MOUTH EVERY MORNING 10/15/2015 01/13/2016 Inactive gabapentin 300 mg capsule RxNorm: 344223 1 Tablet(s) PO QD TAKE ONE CAPSULE BY MOUTH EVERY NIGHT AT BEDTIME 09/23/2015 12/21/2015 Inactive quinapril 10 mg-hydrochlorothiazide 12.5 mg tablet RxNorm: 3 26963 Tablet(s) TAKE ONE TABLET BY MOUTH EVERY MORNING 07/14/2015 10/14/2015 Inactive gabapentin 300 mg capsule RxNorm: 488911 1 Tablet(s) PO QD TAKE ONE CAPSULE BY MOUTH EVERY NIGHT AT BEDTIME 06/25/2015 09/23/2015 Inactive prednisone 20 mg tablet RxNorm: 742041 1 Tablet(s) PO QD 06/14/2015 0 06/20/2015 Inactive cephalexin 500 mg capsule RxNorm: 962509 1 Capsule(s) PO BID 201405/27/2015 Inactive mupirocin 2 % topical ointment RxNorm: 569090 TOP BID 05/18/2015 0 06/13/2015 Inactive quinapril 10 mg-hydrochlorothiazide 12.5 mg tablet RxNorm: 3 12154 Tablet(s) TAKE ONE TABLET BY MOUTH EVERY MORNING 04/06/2015 07/14/2015 Inactive gabapentin 300 mg capsule RxNorm: 602810 1 Capsule(s) PO QHS 201404/01/2015 Inactive [SAVINGS FOR NON-COVERED LILIANA GS -- BIN:308985, PCN: ASPROD1, Group: XXXXX, ID# [id number], Questions: . THIS IS NOT INSURANCE.] gabapentin 300 mg capsule RxNorm: 207314 1 Capsule(s) PO QHS 201406/25/2015 Inactive [SAVINGS FOR NON-COVERED LILIANA GS -- BIN:269166, PCN: ASPROD1, Group: XXXXX, ID# [id number], Questions: . THIS IS NOT INSURANCE.] quinapril 10 mg-hydrochlorothiazide 12.5 mg tablet RxNorm: 3 13334 TAKE ONE TABLET BY MOUTH EVERY MORNING 12/11/2014 04/05/2015 Inactive gabapentin 300 mg capsule RxNorm: 027956 1 Capsule(s) PO QHS 201404/02/2015 Inactive [SAVINGS FOR NON-COVERED LILIANA GS -- BIN:532268, PCN: ASPROD1, Group: XXXXX, ID# [id number], Questions: . THIS IS NOT INSURANCE.] cyclobenzaprine 10 mg tablet RxNorm: 747258 1 Tablet(s) PO TID as needed for muscle spasm for muscle spasm 12/02/2014 02/21/2015 Inactive [S AVINGS FOR NON- COVERED DRUGS -- BIN:627607, PCN: ASPROD1, Group: XXXXX, ID# [id number], Questions: . THIS IS NOT INSURANCE.] gabapentin 100 mg capsule RxNorm: 253365 1 Capsule(s) PO QHS 201412/01/2014 Inactive [SAVINGS FOR NON-COVERED LILIANA GS -- BIN:033415, PCN: ASPROD1, Group: XXXXX, ID# [id number], Questions: . THIS IS NOT INSURANCE.] ibuprofen 800 mg tablet RxNorm: 918839 1 Tablet(s) PO T ID as needed low back pain 11/11/2014 11/23/2014 Inactive [SAVINGS FOR NON -COVERED DRUGS -- BIN:179663, PCN: ASPROD1, Group: XXXXX, ID# [id number], Questions: . THIS IS NOT INSURANCE.] ibuprofen 800 mg tablet RxNorm: 973323 1 Tablet(s) PO T ID as needed low back pain 11/09/2014 11/10/2014 Inactive [SAVINGS FOR NON -COVERED DRUGS -- BIN:529138, PCN: ASPROD1, Group: XXXXX, ID# [id number], Questions: . THIS IS NOT INSURANCE.] Zorvolex 35 mg capsule RxNorm: 1343700 1 Tablet(s) PO TID 08/27/2014 10/01/2014 Inactive [SAVINGS FOR UNINSURED PATIENTS -- BIN:0 12651, PCN: ASPROD1, Group: AME08, ID# [id number], Process claim through [employer]Ar[employer], for questions: . THIS IS NOT INSURANCE.] quinapril 10 mg-hydrochlorothiazide 12.5 mg tablet RxNorm: 3 64816 1 Tablet(s) PO QAM 08/27/2014 11/24/2014 Inactive Lidoderm 5 % (700 mg/patch) adhesive patch RxNorm: 4797796 Application TOP for 12hours then off for pain 08/18/2014 02/21/2015 Inactive [SAVIN GS FOR UNINSURED PATIENTS -- BIN:890660, PCN: ASPROD1, Group: AME08, ID# [id number], Process claim through MedImpact, for questions: . THIS IS NOT INSURANCE.] Zorvolex 35 mg capsule RxNorm: 4627321 1 Tablet(s) PO TID 08/13/2014 08/12/2014 Inactive Zorvolex 35 mg capsule RxNorm: 0685708 1 Tablet(s) PO TID 08/13/2014 08/24/2014 Inactive [SAVINGS FOR UNINSURED PATIENTS -- BIN:0 88551, PCN: ASPROD1, Group: AME08, ID# [id number], Process claim through [employer]!, for questions: . THIS IS NOT INSURANCE.] Aspirin Child 81 mg chewable tablet RxNorm: 912648 1 Tablet(s) PO QD No Start Date Active ibuprofen 800 mg tablet RxNorm: 065709 1 Tablet(s) PO T ID as needed low back pain No Start Date 11/08/2014 Inactive cyclobenzaprine 10 mg tablet RxNorm: 265871 1 Tablet(s) PO TID No S tart Date 08/12/2017 Inactive garlic 1,000 mg capsule RxNorm: 421415 1 Capsule(s) PO QD No Start Date 04/22/2019 Inactive tramadol 50 mg tablet RxNorm: 566217 1 Tablet(s) PO Q4-6H as ne eded for pain No Start Date 02/21/2015 Inactive tramadol 50 mg tablet RxNorm: 914186 1 Tablet(s) PO TID as needed for pain along with two tylenol No Start Date 01/07/2019 Inactive krill oil oral RxNorm: 46993 oral No Start Date 11/11/2018 Inacti ve Vitamin D3 2,000 unit tablet RxNorm: 374883 1 Tablet(s) PO QD No St art Date 08/12/2019 Inactive gabapentin 100 mg tablet RxNorm: 209896 1 Tablet(s) PO QD No Start Date 11/10/2014 Inactive Zofran 4 mg tablet RxNorm: 715498 1 Tablet(s) PO Q6H as needed No S tart Date 08/12/2019 Inactive Elimite 5 % topical cream RxNorm: 248646 1 Application TOP QHS apply head to toe and was off in morning No Start Date 05/18/2019 Inactive gabapentin 100 mg capsule RxNorm: 376644 1 Capsule(s) PO QHS No Sta rt Date 11/10/2014 Inactive aspirin 325 mg tablet RxNorm: 078077 2 Tablet(s) PO QD No Start Date 08/17/2014 Inactive Fish Oil 1,000 mg capsule RxNorm: 1 Capsule(s) PO QD No Start Date 10/08/2018 Inactive quinapril 10 mg-hydrochlorothiazide 12.5 mg tablet RxNorm: 3 19248 1 Tablet(s) PO QAM No Start Date 08/26/2014 Inactive quinapril 40 mg tablet RxNorm: 404059 1 Tablet(s) PO QD No Start Da te 10/23/2017 Inactive Medrol (Daniel) 4 mg tablets in a dose pack RxNorm: 432981 Tablet(s) PO As Directed No Start Date 05/05/2018 Inactive Urecholine 25 mg tablet RxNorm: 836792 1 Tablet(s) PO TID No Start Date 11/08/2015 Inactive cyclobenzaprine 10 mg tablet RxNorm: 396695 1/2-1 Table t(s) PO TID as needed for muscle spasm No Start Date 12/01/2014 Inactive tamsulosin 0.4 mg capsule RxNorm: 828107 2 Capsule(s) PO QPM No Sta rt Date 08/12/2019 Inactive hydrocodone 5 mg-acetaminophen 325 mg tablet RxNorm: 067307 1 -2 Tablet(s) PO Q6H as needed No Start Date 05/20/2019 Inactive loratadine 10 mg tablet RxNorm: 026213 1 Tablet(s) PO QD No Start D ate 07/07/2014 Inactive Medication Administered No Medication Administered data Immunizations Vaccine Codes Date Status Influenza CVX: 141 07/21/2019 Results Observation Observation Code Item Item Code Result Date S [facility] Location CULTURE, AEROBIC BACTERIA 44271 CULTURE, AEROBIC BACTERIA SEE NOTE 10/30/2019 Zay Becerra [address] [place] [address] CULTURE, URINE, ROUTINE 395 CULTURE SEE NOTE 1 10/15/2018 Zay Becerra [address] [place] [address] CULTURE, URINE, ROUTINE 395 CULTURE, URINE, ROUTINE SEE NOTE 08/15/2019 Zay Becerra [address] [place] [address] CBC (H/H, RBC, INDICES, WBC, PLT) 41072 WHITE BLOOD CELL COU NT 7.9 Thousand/uL 08/14/2019 Zay Becerra [address] [place] [address] CBC (H/H, RBC, INDICES, WBC, PLT) 50356 RED BLOOD CELL COUNT 4.93 Million/uL 08/14/[address] [facility] [address] CBC (H/H, RBC, INDICES, WBC, PLT) 03727 HEMOGLOBIN 15 .4 g/dL 08/14/[address] [facility] [address] CBC (H/H, RBC, INDICES, WBC, PLT) 11380 HEMATOCRIT 45 .0 % 08/14/2019 [facility] [address] CBC (H/H, RBC, INDICES, WBC, PLT) 73359 MCV 91 .3 fL 08/14/2019 [facility] [address] CBC (H/H, RBC, INDICES, WBC, PLT) 92425 MCH 31 .2 pg 08/14/[address] [address] CBC (H/H, RBC, INDICES, WBC, PLT) 60286 MCHC 34 .2 g/dL 08/14/[address] [facility] [address] CBC (H/H, RBC, INDICES, WBC, PLT) 91506 RDW 12 .7 % 08/14/[address] [facility] [address] CBC (H/H, RBC, INDICES, WBC, PLT) 24407 PLATELET COUNT 214 Thousand/uL 08/14/2019 [facility] [address] CBC (H/H, RBC, INDICES, WBC, PLT) 14527 MPV 11 .5 fL 08/14/[address] [facility] [address] COMPREHENSIVE METABOLIC PANEL 68440 Glucose 113 mg /dL 08/14/2019 [facility] [address] COMPREHENSIVE METABOLIC PANEL 98300 UREA NITROGEN (BUN) 16 mg/dL 08/14/[address] [facility] [address] COMPREHENSIVE METABOLIC PANEL 75993 CREATININE 0.86 m g/dL 08/14/[address] [facility] [address] COMPREHENSIVE METABOLIC PANEL 47928 eGFR NON-AFR. ANGOLAN 92 mL/min/1.73m2 08/14/2019 [facility] [address] [address] COMPREHENSIVE METABOLIC PANEL 49995 eGFR 106 mL/min/1.73m2 08/14/2019 [facility] [address] [address] COMPREHENSIVE METABOLIC PANEL 85477 BUN/CREATININE RATIO NOT APPLICABLE (calc) 08/14/2019 [facility] [address] [address] COMPREHENSIVE METABOLIC PANEL 18400 SODIUM 141 mm ol/L 08/14/2019 [facility] [address] [address] COMPREHENSIVE METABOLIC PANEL 78635 POTASSIUM 4.1 mm ol/L 08/14/2019 [facility] [address] [address] COMPREHENSIVE METABOLIC PANEL 60757 CHLORIDE 102 mm ol/L 08/14/[address] [facility] [address] COMPREHENSIVE METABOLIC PANEL 80110 CARBON DIOXIDE 28 mmol/L 08/14/2019 [facility] [address] [address] COMPREHENSIVE METABOLIC PANEL 20655 CALCIUM 9.7 mg /dL 08/14/2019 [facility] [address] [address] COMPREHENSIVE METABOLIC PANEL 95545 PROTEIN, TOTAL 6. 7 g/dL 08/14/2019 [facility] [address] [address] COMPREHENSIVE METABOLIC PANEL 04211 ALBUMIN 4.3 g/ dL 08/14/2019 [facility] [address] [address] COMPREHENSIVE METABOLIC PANEL 84697 GLOBULIN 2.4 g/ dL(calc) 08/14/2019 [facility] [address] [address] COMPREHENSIVE METABOLIC PANEL 97367 ALBUMIN/GLOBULIN RATIO 1.8 (calc) 08/14/2019 [facility] [address] [address] COMPREHENSIVE METABOLIC PANEL 47405 BILIRUBIN, TOTAL 1.0 mg/dL 08/14/[address] [facility] [address] COMPREHENSIVE METABOLIC PANEL 85563 ALKALINE PHOSPHATASE 56 U/L 08/14/[address] [facility] [address] COMPREHENSIVE METABOLIC PANEL 29596 AST 18 U/L 08/14/[address] [facility] [address] COMPREHENSIVE METABOLIC PANEL 78564 ALT 28 U/L 08/14/[address] [facility] [address] MAGNESIUM 01703 MAGNESIUM 2.0 mg/dL 06/06/[address] [facility] [address] COMPREHENSIVE METABOLIC PANEL 03302 Glucose 106 mg /dL 06/06/[address] [facility] [address] COMPREHENSIVE METABOLIC PANEL 47995 UREA NITROGEN (BUN) 22 mg/dL 06/06/[address] [facility] [address] COMPREHENSIVE METABOLIC PANEL 35512 CREATININE 1.29 m g/dL 06/06/[address] [facility] [address] COMPREHENSIVE METABOLIC PANEL 28536 eGFR NON-AFR. ANGOLAN 58 mL/min/1.73m2 06/06/[address] [facility] [address] COMPREHENSIVE METABOLIC PANEL 22215 eGFR 67 mL/min/1.73m2 06/06/[address] [facility] [address] COMPREHENSIVE METABOLIC PANEL 01005 BUN/CREATININE RATIO 17 (calc) 06/06/[address] [facility] [address] COMPREHENSIVE METABOLIC PANEL 64406 SODIUM 138 mm ol/L 06/06/[address] [facility] [address] COMPREHENSIVE METABOLIC PANEL 02976 POTASSIUM 4.2 mm ol/L 06/06/[address] [facility] [address] COMPREHENSIVE METABOLIC PANEL 10091 CHLORIDE 101 mm ol/L 06/06/[address] [facility] [address] COMPREHENSIVE METABOLIC PANEL 32233 CARBON DIOXIDE 29 mmol/L 06/06/[address] [facility] [address] COMPREHENSIVE METABOLIC PANEL 38932 CALCIUM 9.6 mg /dL 06/06/2019 [facility] [address] COMPREHENSIVE METABOLIC PANEL 37609 PROTEIN, TOTAL 6. 9 g/dL 06/06/2019 [facility] [address] COMPREHENSIVE METABOLIC PANEL 39588 ALBUMIN 4.4 g/ dL 06/06/[address] [facility] [address] COMPREHENSIVE METABOLIC PANEL 59696 GLOBULIN 2.5 g/ dL(calc) 06/06/[address] [address] COMPREHENSIVE METABOLIC PANEL 01339 ALBUMIN/GLOBULIN RATIO 1.8 (calc) 06/06/2019 [facility] [address] COMPREHENSIVE METABOLIC PANEL 44132 BILIRUBIN, TOTAL 0.7 mg/dL 06/06/[address] [facility] [address] COMPREHENSIVE METABOLIC PANEL 39115 ALKALINE PHOSPHATASE 45 U/L 06/06/2019 [facility] [employer] [employer] [address] COMPREHENSIVE METABOLIC PANEL 00945 AST 21 U/L 06/06/2019 [facility] [address] COMPREHENSIVE METABOLIC PANEL 85092 ALT 34 U/L 06/06/2019 [facility] [address] CULTURE, URINE, ROUTINE 395 CULTURE, URINE, ROUTINE SEE NOTE 04/23/2019 [facility] [address] CULTURE, URINE, ROUTINE 395 CULTURE SEE NOTE 0 04/23/[address] [facility] [address] EXTRA 1014 EXTRA TUBE RECEIVED 04/22 [facility] [address] [place] [phone] EXTRA 1014 SPECIMEN TYPE RECEIVED: LAV 0 04/22/2019 [facility] [address] [address] COMPREHENSIVE METABOLIC PANEL 51719 Glucose 94 mg/ dL 04/22/2019 [facility] [address] [address] COMPREHENSIVE METABOLIC PANEL 59123 UREA NITROGEN (BUN) 20 mg/dL 04/22/2019 [facility] [address] [address] COMPREHENSIVE METABOLIC PANEL 98543 CREATININE 1.30 m g/dL 04/22/2019 [facility] [address] [address] COMPREHENSIVE METABOLIC PANEL 61359 eGFR NON-AFR. ANGOLAN 58 mL/min/1.73m2 04/22/2019 [facility] [address] [address] COMPREHENSIVE METABOLIC PANEL 32256 eGFR 67 mL/min/1.73m2 04/22/2019 [facility] [address] [address] COMPREHENSIVE METABOLIC PANEL 09180 BUN/CREATININE RATIO 15 (calc) 04/22/2019 [facility] [address] [address] COMPREHENSIVE METABOLIC PANEL 12564 SODIUM 139 mm ol/L 04/22/2019 [facility] [address] [address] COMPREHENSIVE METABOLIC PANEL 62838 POTASSIUM 4.2 mm ol/L 04/22/2019 [facility] [address] [address] COMPREHENSIVE METABOLIC PANEL 18263 CHLORIDE 104 mm ol/L 04/22/2019 [facility] [address] [address] COMPREHENSIVE METABOLIC PANEL 09095 CARBON DIOXIDE 27 mmol/L 04/22/2019 [facility] [address] [address] COMPREHENSIVE METABOLIC PANEL 78413 CALCIUM 9.9 mg /dL 04/22/2019 [facility] [address] [address] COMPREHENSIVE METABOLIC PANEL 89961 PROTEIN, TOTAL 7. 1 g/dL 04/22/2019 [facility] [address] COMPREHENSIVE METABOLIC PANEL 86146 ALBUMIN 4.6 g/ dL 04/22/2019 [facility] [address] COMPREHENSIVE METABOLIC PANEL 46508 GLOBULIN 2.5 g/ dL(calc) 04/22/2019 [facility] [address] COMPREHENSIVE METABOLIC PANEL 22589 ALBUMIN/GLOBULIN RATIO 1.8 (calc) 04/22/2019 [facility] [address] COMPREHENSIVE METABOLIC PANEL 81307 BILIRUBIN, TOTAL 0.4 mg/dL 04/22/2019 [facility] [address] COMPREHENSIVE METABOLIC PANEL 74890 ALKALINE PHOSPHATASE 53 U/L 04/22/2019 [facility] [address] COMPREHENSIVE METABOLIC PANEL 45109 AST 21 U/L 04/22/2019 [facility] [address] COMPREHENSIVE METABOLIC PANEL 69441 ALT 34 U/L 04/22/[address] [facility] [address] CULTURE, URINE, ROUTINE 395 CULTURE, URINE, ROUTINE SEE NOTE 01/31/[address] [address] Procedures Procedure Codes Date CULTURE, AEROBIC BACTERIA CPT-4: 55667 10/27/2019 URINALYSIS NONAUTO W/O SCOPE CPT-4: 33100 10/02/2019 URINE CULTURE/ COLONY COUNT CPT-4: 68383 10/02/2019 ROUTINE VENIPUNCTURE CPT-4: 40071 08/13/2019 URINALYSIS NONAUTO W/O SCOPE CPT-4: 97954 08/13/2019 CULTURE, URINE, ROUTINE CPT-4: 395 08/13/2019 COMPREHENSIVE METABOLIC PANEL CPT-4: 91839 08/13/2019 CBC (H/H, RBC, INDICES, WBC, PLT) CPT-4: 45096 2018 COMPREHENSIVE METABOLIC PANEL CPT-4: 48535 06/05/2019 MAGNESIUM CPT-4: 68984 06/05/2019 DEXAMETHASONE SODIUM PHOS CPT-4: J1100 05/21/2019 THER/PROPH/DIAG INJ SC/IM CPT-4: 47725 05/21/2019 TRIAMCINOLONE ACET INJ NOS CPT-4: J3301 05/21/2019 ROUTINE VENIPUNCTURE CPT-4: 79857 04/21/2019 COMPREHENSIVE METABOLIC PANEL CPT-4: 61752 04/21/2019 EXTRA CPT-4: 1014 04/21/2019 CULTURE, URINE, ROUTINE CPT-4: 395 04/21/2019 URINALYSIS NONAUTO W/O SCOPE CPT-4: 75833 04/21/2019 URINALYSIS NONAUTO W/O SCOPE CPT-4: 03007 01/29/2019 CULTURE, URINE, ROUTINE CPT-4: 395 01/29/2019 DRAIN/INJECT JOINT/BURSA CPT-4: 63638 02/19/2018 TRIAMCINOLONE ACET INJ NOS CPT-4: J3301 02/19/2018 DEXAMETHASONE SODIUM PHOS CPT-4: J1100 02/19/2018 THER/PROPH/DIAG INJ SC/IM CPT-4: 89429 02/12/2018 TRIAMCINOLONE ACET INJ NOS CPT-4: J3301 02/12/2018 DEXAMETHASONE SODIUM PHOS CPT-4: J1100 02/12/2018 CEFTRIAXONE SODIUM INJECTION CPT-4: J0696 12/03/2017 THER/PROPH/DIAG INJ SC/IM CPT-4: 77001 12/03/2017 THER/PROPH/DIAG INJ SC/IM CPT-4: 47215 12/03/2017 METHYLPREDNISOLONE INJECTION CPT-4: J2930 12/03/2017 URINALYSIS NONAUTO W/O SCOPE CPT-4: 21649 08/13/2017 STREP A ASSAY W/OPTIC CPT-4: 36891 02/13/2017 DESTRUCT PREMALG LESION (Cryosurgery) CPT-4: 97799 Vital Signs Date Vital 10/27/2019 Blood Pressure [...] 1: 128/78 Code: 8480-6 BMI: 36.0 Code: 83250-2 Heart Rate 1: 68 bpm Height: 5'7" [...] 1: 138/86 Code: 8480-6 BMI: 35.6 Code: 93884-6 Heart Rate 1: 68 bpm Height: 5'7" SpO2: 95% Temperature: 36.6 (C) / 97.8 (F) Weight: 227 lbs 12/03/2017 Blood Pressure 1: 134/84 Code: 8480-6 BMI: 34.3 Code: 47134-8 Heart Rate 1: 68 bpm Height: 5'7" Respiratory Rate: 20 bpm SpO2: 96% Tempera ture: 35.9 (C) / 96.6 (F) Weight: 219 lbs 09/11/2017 Blood Pressure 1: 140/86 Code: 8480-6 BMI: 34.9 Code: 22228-3 Heart Rate 1: 84 bpm Height: 5'7" Respiratory Rate: 20 bpm SpO2: 95% Tempera ture: 36.7 (C) / 98.1 (F) Weight: 223 lbs 08/13/2017 Blood Pressure 1: 142/94 Code: 8480-6 BMI: 34.5 Code: 63849-3 Heart Rate 1: 76 bpm Height: 5'7" Respiratory Rate: 20 bpm SpO2: 96% Tempera ture: 37.1 (C) / 98.8 (F) Weight: 220 lbs 11/17/2016 Blood Pressure 1: 118/78 Code: 8480-6 He art Rate 1: 64 bpm 07/19/2016 Blood Pressure 1: 112/58 Code: 8480-6 BMI: 31.6 Code: 28800-5 Heart Rate 1: 88 bpm Height: 5'7" Respiratory Rate: 22 bpm SpO2: 98% Tempera ture: 36.3 (C) / 97.4 (F) Weight: 202 lbs 06/09/2016 Blood Pressure 1: 138/84 Code: 8480-6 BMI: 32.1 Code: 39079-0 Heart Rate 1: 58 bpm Height: 5'7" Respiratory Rate: 20 bpm SpO2: 97% Tempera ture: 36.6 (C) / 97.8 (F) Weight: 205 lbs 11/08/2015 Blood Pressure 1: 142/80 Code: 8480-6 BMI: 32.4 Code: 63817-9 Heart Rate 1: 76 bpm Height: 5'7" Respiratory Rate: 20 bpm Temperature: 36 .6 (C) / 97.9 (F) Weight: 207 lbs 06/14/2015 Blood Pressure 1: 126/80 Code: 8480-6 Heart Rate 1: 84 bpm Respiratory Rate: 20 bpm Temperature: 36.8 (C) / 98.2 (F) Weight: 206 lbs 05/18/2015 Blood Pressure 1: 124/80 Code: 8480-6 BMI: 32.3 Code: 25163-6 Heart Rate 1: 68 bpm Height: 5'7" Respiratory Rate: 20 bpm Temperature: 36 .4 (C) / 97.6 (F) Weight: 206 lbs 02/22/2015 Blood Pressure 1: 126/78 Code: 8480-6 BMI: 32.1 Code: 22979-7 Heart Rate 1: 76 bpm Height: 5'7" Respiratory Rate: 20 bpm Temperature: 36 .6 (C) / 97.9 (F) Weight: 205 lbs 12/02/2014 Blood Pressure 1: 124/80 Code: 8480-6 BMI: 32.7 Code: 21354-5 Heart Rate 1: 70 bpm Height: 5'7" Respiratory Rate: 18 bpm Temperature: 36 .6 (C) / 97.9 (F) Weight: 209 lbs 08/18/2014 Blood Pressure 1: 132/94 Code: 8480-6 BMI: 34.5 Code: 05087-9 Heart Rate 1: 84 bpm Height: 5'6" Respiratory Rate: 20 bpm Temperature: 36 .6 (C) / 97.9 (F) Weight: 217 lbs 07/08/2014 Blood Pressure 1: 142/88 Code: 8480-6 BMI: 34.3 Code: 71228-0 Heart Rate 1: 72 bpm Height: 5'6" [...] Visit Encounters Encounter Performer Location Codes Date ([id number]) OFFICE/OUTPATIENT VISIT EST Diagnosis: Allergic rhinitis[ICD10: J30.9] Diagnosis: Postnasal drip[ICD10: R09.82] Sapna Salas CPT-4: 87816 12/19/2019 ([id number]) NO CHARGE Diagnosis: Infected sebaceous cyst[ICD10: L72.3] Sapna CappsAmarjit PAULYNDER [facility]progress CPT-4: 92719 11/03/2019 ([id number]) OFFICE/OUTPATIENT VISIT EST Diagnosis: Disorder of the skin and subcutaneous tissue, unspecified[ICD10: L98.9] Diagnosis: Infected sebaceous cyst[ICD10: L72.3] Diagnosis: Local infection of the skin and subcutaneous tissue, unspecified[ICD10: L08.9] Lashell CappsAmarjit PAULYNDER nprogress CPT-4 : 26464 10/27/2019 ([id number]) OFFICE/OUTPATIENT VISIT EST Diagnosis: Suprapubic abdominal pain[ICD10: R10.2] Diagnosis: Aortic regurgitation[ICD10: I35.1] Sapna Calos SANCHEZ LOTUS SAmarjit PAULYNDER [facility]progress CPT-4: 72944 10/02/2019 ([id number]) OFFICE/OUTPATIENT VISIT EST Diagnosis: Chest pain[ICD10: R07.9] Lashell CappsAmarjit HAMZAH MANUELITO [facility]progress CPT-4: 69033 08/25/2019 ([id number]) OFFICE/OUTPATIENT VISIT EST Diagnosis: Thoracic back pain[ICD10: M54.6] Diagnosis: Disorder of kidney and ureter, unspecified[ICD10: N28.9] Diagnosis: Personal history of nicotine dependence[ICD10: Z87.891] 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] Lashell BRUNSONLINE JefryAmarjit CANDICE ANGELY [facility]progress CPT-4: 41998 08/13/2019 ([id number]) OFFICE/OUTPATIENT VISIT EST Diagnosis: Sigmoid diverticulitis[ICD10: K57.32] Diagnosis: Renal insufficiency[ICD10: N28.9] Diagnosis: Jock itch[ICD10: B35.6] Sapna Calos BRUNSONLINE SAmarjit PARDO nprogress CPT-4: 30456 07/03/2019 ([id number]) OFFICE/OUTPATIENT VISIT EST Diagnosis: Cramp and spasm[ICD10: R25.2] Diagnosis: Disorder of kidney and ureter, unspecified[ICD10: N28.9] Lashell LIVE DO [facility] CPT-4: 64020 06/05/2019 ([id number]) OFFICE/OUTPATIENT VISIT EST Diagnosis: Other pruritus[ICD10: L29.8] Diagnosis: Pain in right knee[ICD10: M25.561] Lashell LIVE DO [facility] CPT-4: 75090 05/21/2019 ([id number]) NURSE/OUTPATIENT VISIT EST Diagnosis: Edema, unspecified[ICD10: R60.9] Sapna Alcantarajasongustabo BRUNSONSAPNA Vickie LIVE [employer] [facility] CPT-4: 71013 04/21/2019 ([id number]) OFFICE/OUTPATIENT VISIT EST Diagnosis: Diverticulitis of large intestine without perforation or abscess without bleeding[ICD10: K57.32] Diagnosis: Snoring[ICD10: R06.83] Diagnosis: Other constipation[ICD10: K59.09] Lashell LIVE [facility] [facility] CPT-4: 12610 02/24/2019 ([id number]) OFFICE/OUTPATIENT VISIT EST Diagnosis: Diverticulitis of large intestine without perforation or abscess with bleeding[ICD10: K57.33] Nancy CORRAL Vickie LIVE [facility] CPT-4: 80280 02/04/2019 ([id number]) OFFICE/OUTPATIENT VISIT EST Diagnosis: Left lower quadrant pain[ICD10: R10.32] Nancy LORA Vickie LIVE [facility] CPT-4: 15336 01/29/2019 OFFICE/OUTPATIENT VISIT EST Diagnosis: Dermatitis, unspecified[ICD10: L30.9] Diagnosis: Gastro-esophageal reflux disease without esophagitis[ICD10: K21.9] Diagnosis: Palpitations[ICD10: R00.2] Sapna CORRAL [facility]ie [facility] CPT-4: 95994 12/19/2018 ([id number]) OFFICE/OUTPATIENT VISIT EST Diagnosis: Gastro-esophageal reflux disease without esophagitis[ICD10: K21.9] Diagnosis: Dysphagia, pharyngoesophageal phase[ICD10: R13.14] Sapna BRUNSONLINE Vickie LIVE [facility] CPT-4: 24821 11/11/2018 ([id number]) PREV VISIT EST AGE 40-64 Diagnosis: Encounter [...] and disorders of digestive system[ICD10: K91.89] Lashell [employer] CPT-4: 99 396 10/09/2018 ([id number]) OFFICE/OUTPATIENT VISIT EST Diagnosis: Pain in right knee[ICD10: M25.561] Diagnosis: Pain in right hip[ICD10: M25.551] Lashell NICHOLE Manuel Vickie [employer] CPT-4: 75884 02/12/2018 OFFICE/OUTPATIENT VISIT EST Diagnosis: Essential (primary) hypertension[ICD10: I10] Diagnosis: Other chest pain[ICD10: R07.89] Lashell BRUNSONLINE Vickie [facility]IVE [facility] CPT-4: 71950 12/03/2017 ([id number]) OFFICE/OUTPATIENT VISIT EST Diagnosis: Essential (primary) hypertension[ICD10: I10] Sapna BRUNSONLINE Vickie [employer] [facility] CPT-4: 65237 09/11/2017 ([id number]) PREV VISIT EST AGE 40-64 Diagnosis: Encounter for general adult medical examination without abnormal findings[ICD10: Z00.00] Diagnosis: Essential (primary) hypertension[ICD10: I10] Diagnosis: Left lower quadrant pain[ICD10: R10.32] Diagnosis: Left upper quadrant pain[ICD10: R10.12] Diagnosis: Other intervertebral disc degeneration, 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] Sapna LIVE [facility] CPT-4: 63681 08/13/2017 ([id number]) OFFICE/OUTPATIENT VISIT EST Diagnosis: Acute pharyngitis, unspecified[ICD10: J02.9] Sapna LIVE [facility] CPT-4: 35427 02/13/2017 ([id number]) PREV VISIT EST AGE 40-64 Diagnosis: Encounter for general adult medical examination without abnormal findings[ICD10: Z00.00] Diagnosis: Essential (primary) hypertension[ICD10: I10] 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] Sapna LIVE [facility] CPT-4: 18533 07/19/2016 OFFICE/OUTPATIENT VISIT EST Diagnosis: Pain in thoracic spine[ICD10: M54.6] Diagnosis: Disorder of the skin and subcutaneous tissue, unspecified[ICD10: L98.9] Sobia Monreal SAPNA LIVE [facility] CPT-4: 03642 06/09/2016 OFFICE/OUTPATIENT VISIT EST Diagnosis: Retention of urine, unspecified[ICD10: R33.9] Diagnosis: Urinary tract infection, site not specified[ICD10: N39.0] Chelsie LIVE [facility] CPT-4: 92640 11/08/2015 ([id number]) OFFICE/OUTPATIENT VISIT EST Diagnosis: DERMATITIS NOS[ICD9: 692.9] Diagnosis: SEBACEOUS CYST[ICD9: 706.2] Sapna Capps. 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] Diagnosis: Scoliosis[ICD9: 737.30] Sapna PARDO DO [facility] CPT-4: 77582 12/02/2014 ([id number]) OFFICE/OUTPATIENT VISIT EST Diagnosis: Thoracic back pain[ICD9: 724.1] Diagnosis: ACTINIC KERATOSIS[ICD9: 702.0] Sapna LIVE DO [facility] CPT-4: 40534 08/18/2014 OFFICE/OUTPATIENT VISIT NEW Diagnosis: HYPERTENSION[ICD9: 401.9] Diagnosis: Thoracic back pain[ICD9: 724.1] Diagnosis: GERD[ICD9: 530.81] Diagnosis: Adrenal tumor[ICD9: 239.7] Sapna AU [facility] [facility] CPT-4: 95597 07/08/2014 ([id number]) OFFICE/OUTPATIENT VISIT NEW Diagnosis: HYPERTENSION[ICD9: 401.9] Diagnosis: GERD[ICD9: 530.81] Sapna LIVE DO [facility] CPT-4: 82658 07/08/2014 Plan of Care Planned Activity Notes Codes Status Date Visit Diagnosis Plan: Allergic rhinitis Discussion: Cl aritin 10mg po BID Call Sunday with how symptoms are doing Will also add famotodine at bedtime to cover for reflux etiology ICD-9 : 477.9 ICD-10 : J30.9 12/19/2019 Patient Education: famotidine- [employer] C[employer] [id number] [email or web address] Completed 12/19/2019 Visit Diagnosis Plan: Infected sebaceous cyst Discussi on: Sent out 1 week of doxycycline ICD-9 : 706.2 ICD-10 : L72.3 11/03/2019 Appointment[facility] [phone] [facility] [facility] 11/03/2019 Visit Diagnosis Plan: [...] : L08.9 10/27/2019 [facility]ment: [facility] [facility] 10/27/2019 Patient Education: tramadol- [employer] C[employer]on [id number] [email or web address] Completed 10/27/2019 Visit Plan: Update Low Dose [...] : I35.1 10/02/2019 Appointment: Sapna Live WPtel: [facility] [facility] 10/02/2019 Care Plan: Referral Order SNOMED-CT : 30 [id number] Pending 10/02/2019 Visit Diagnosis Plan: Chest pain Discussion: will star t with cxray and rib xray. discussed that could be lung, rib, muscle but will start with cxray and patient may need echo. he verbalized understanding. ICD-9 : 786.50 ICD-10 : R07.9 08/25/2019 Appointment: Lashell Joe [facility] [facility] 08/25/2019 Visit Diagnosis Plan: Thoracic back pain Discussion: c hronic pain. will refer to dr. stallings at [place] for evaluation and treatment ICD-9 : 724.1 [...] ct of lungs to be done at [facility]. ICD-9 : V15.82 ICD-10 : [...] ICD-10 : E27.8 08/13/2019 Appointment: Lashell Joe [address] [place], [place] [id number] [place] FOLLOW UP 08/13/2019 Visit Diagnosis Plan: Sigmoid diverticulitis Discussio n: Bactrim/Flagyl [place] diet To ER this weekend if worsening ICD-9 : 562.11 ICD-10 : K57.32 07/03/2019 Visit Diagnosis Plan: Jock itch Discussion: Diflucan a nd topical nystatin ICD-9 : 110.3 ICD-10 : B35.6 07/03/2019 Visit Diagnosis Plan: Renal insufficiency Discussion: Labs discussed Continue off NSAIDS Hydrate Recheck Chemistry 3mos ICD-9 : 593.9 ICD-10 : N28.9 07/03/2019 Appointment: aSpna Live WPtel: [phone] [facility] US FOLLOW UP 07/03/2019 Patient Education: fluconazole- [employer] C[employer]on [id number] Completed 07/03/2019 Patient Education: nystatin- [employer]on [id number] Completed 07/03/2019 Visit Diagnosis Plan: Disorder of [...] ICD-10 : R25.2 06/05/2019 Appointment: Lashell Joe [address] [place], [place] [id number] NO SHOW - FORGIVEN 06/05/2019 Appointment: Lashell Joe [address] [place], [place] [phone] ACUTE ILLNESS 06/05/2019 Visit Diagnosis Plan: Pain [...] ICD-10 : L29.8 05/21/2019 Appointment: Lashell Joe [address] [place] [address] ACUTE ILLNESS 05/21/2019 Patient Education: hydroxyzine HCl- [employer] Coupon [id number] [email or web address]/resources/getResource/[email or web address] Completed 05/21/2019 Appointment: Sapna Live WPtel: [phone] [facility] 05/19/19 1645---see note put in chart today (km) CANCELED 05/19/2019 Appointment: Shelleygustabo Sapna JefryAmarjit WPtel: [phone] [facility] CANCELED 05/05/2019 Appointment: Calos Sapna JefryAmarjit WPtel: [phone] [facility] UA 04/21/2019 Visit Diagnosis Plan: Diverticulitis of [...] K59.09 02/24/2019 Appointment: Lashell Joe [address] Hospital Follow Up 02/24/2019 Visit Diagnosis Plan: Diverticulitis of large intestine without perforation or abscess with bleeding Discussion: Continue flagyl and cipro. A dvance diet to bland. BRAT diet advised. Avoid nuts, seeds, popcorn, roughage. RTC if abdominal pain worsens or does not improve. ICD-9 : 562.13 ICD-10 : K57.33 02/04/2019 Appointment: Nancy Mendiola [address] FOLLOW UP 02/04/2019 Visit Diagnosis Plan: [...] : R10.32 01/29/2019 Appointment: Nancy Mendiola [address] ACUTE ILLNESS 01/29/2019 Care Plan: CT [...] : K21.9 12/19/2018 Appointment: Sapna Live WPtel: [address] [place] [address] ACUTE ILLNESS 12/19/2018 Visit Diagnosis Plan: Gastro-esophageal reflux disease without esophagitis Discussion: Continue protonix at 40mg daily Hold mobic No NSAIDS Hold all MVs If persists then will need EGD ICD-9 : 530.81 ICD-10 : K21.9 11/11/2018 Appointment: Sapna Live WPtel: [address] [place] [address] FOLLOW UP 11/11/2018 Visit Diagnosis Plan: Encounter for [facility] adult medical examination without abnormal [...] ICD-10 : K91.89 10/09/2018 Appointment: Lashell Joe [address] [place], [place] [id number] Annual Well Visit 10/09/2018 Patient Education: gabapentin- [employer] Coupon [id number] Completed 10/09/2018 Patient Education: Kegel Exercises Comple catalina 10/09/2018 Patient Education: High Blood Pressure Co mpleted 10/09/2018 Visit Diagnosis Plan: Pain in right knee Discussion: c orticosteroid injection administered as described above. patient tolerated well. instructed to rtc in 3- 4 months if needed for additional injection. ICD-9 : 719.46 ICD-10 : M25.561 02/19/2018 Appointment: Lashell Joe [address] OFFICE SURGERY 02/19/2018 Patient Education: Patient [...] ICD-10 : M25.561 02/12/2018 Appointment: Lashell Joe [address] ACUTE ILLNESS 02/12/2018 Patient Education: Patient Medication Summary Completed 02/12/2018 Care Plan: X-RAY EXAM OF KNEE 1 [place] 2 [place] : [address]-4 Pending 02/12/2018 Visit Diagnosis Plan: Essential (primary) [...] ICD-10 : R07.89 12/03/2017 Appointment: Lashell Joe [place] [phone] ESTABLISHED PATIENT 12/03/2017 Patient Education: Patient Medication Summary Completed 12/03/2017 Visit Diagnosis Plan: Essential (primary) hypertension Discussion: Increase quinapril to 40mg daily BP check in 1month ICD-9 : 401.9 ICD-10 : I10 09/11/2017 Appointment: Sapna Live WPtel: [address] [place] [address] US FOLLOW UP 09/11/2017 Patient Education: Patient Medication Summary Completed 09/11/2017 Appointment: Sapna Live WPtel: [address] [place] [address] US RESCHEDULED 08/22/2017 Visit Diagnosis Plan: Left lower quadrant pain Discuss ion: Update colonoscopy ICD-9 : 789.04 ICD-10 : R10.32 08/13/2017 Visit Diagnosis Plan: Essential (primary) hypertension Discussion: Increase quinapril to 20mg daily Follow Up: 1 months ICD-9 : 401.9 ICD-10 : I10 08/13/2017 Visit Diagnosis Plan: Encounter for [facility] adult medical examination without abnormal findings Discussion: Update fasting lab ICD-9 : V70.9 ICD-10 : Z00.00 08/13/2017 Appointment: Sapna Live WPtel: [address] [place] [address] Annual Well Visit 08/13/2017 Patient Education: Patient Medication Summary Completed 08/13/2017 Appointment: Sapna Live WPtel: [address] [place] [address] THROAT SWAB 02/13/2017 Patient Education: Patient Medication Summary Completed 02/13/2017 Appointment: Sapna Live WPtel: [address] [place], [place] [id number] [place] BP CHECK 11/17/2016 Patient Education: Patient Medication Summary Completed 11/17/2016 Visit Plan: Due for colonoscopy in 2018 Had shingles shot and flu shot Change quinapril hct to plain quinapril and see if muscles twitches improve Fwup with Dr. Braga Lab discussed Discussed diet/exercise at length Check CT abdomen Recheck 3mos 07/19/2016 Appointment: Sapna Live WPtel: [address] [place], [place] [id number] [place] 07/18 confirmed`sl PHYSICAL 07/19/2016 Patient Education: [...] earliest convenience 06/09/2016 Appointment: Sobia Monreal WPtel: [address] [place], [place] [phone] ACUTE ILLNESS 06/09/2016 Patient Education: Patient Medication Summary Completed 06/09/2016 Referral: Demario Braga WPtel: [address] [place], [place] [phone] Referral Initiated 11/12/2015 Visit Plan: Continue indwelling catheter until follow-up with Dr. Braga Continue Bactrim and Cipro Pyridium TID for Bladder spasms 11/08/2015 Appointment: Chelsie Teixeira WPtel: [address] [place], [place] [phone] ER Follow UP 11/08/2015 Patient Education: Patient Medication Summary Completed 11/08/2015 Referral: Abdiel Tucker WPtel: [address] [facility] [address] Referral Initiated 06/21/2015 Visit Plan: Prednisone 20mg daily for 1w qawalangin See surgery of cyst removal 06/14/2015 Appointment: Sapna Live WPtel: [address] [place], [place] [phone] 06/11 vm cn 06/14 vm cn FOLLOW UP 2014 Patient Education: Patient Medication Summary Completed 06/14/2015 Visit Plan: Warm moist compresses to Lef t shoulder lesion and apply topical Mupirocin twice daily Complete Cephalexin x 7 days as directed Resume Culturelle daily 05/18/2015 Appointment: Chelsie Teixeira WPtel: [address] [place], [place] [phone] ACUTE ILLNESS 05/18/2015 Patient Education: Patient Medication Summary Completed 05/18/2015 Visit Plan: Check fasting lab Use pain m eds prn with miralax on the day that takes pain meds 02/22/2015 Appointment: Sapna Live WPtel: [address] [place], [place] [phone] 02/19 cn 02/19 appt confirmed-lb ACUTE ILLNESS 5 Patient Education: Patient Medication Summary Completed 02/22/2015 Visit Plan: Increase neurontin to 300mg q HS Continue flexeril and tramadol Call in 1mo on how higher dose of gabapentin 12/02/2014 Appointment: Sapna Live WPtel: [address] [place], [place] [phone] FOLLOW UP 12/02/2014 Patient Education: Patient Medication Summary Completed 12/02/2014 Referral: Eric Angelo [facility]el: [facility] [facility]mar[facility] K[id number] [place] Referral Appointment Confirmed 09/15/2014 Visit Plan: Proceed with pain doctor for possible injection vs nerve block Trial of lidoderm patch Cryotherapy to lesions as above 08/18/2014 Appointment: Sapna Live WPtel: [address] [place], [place] [phone] ACUTE ILLNESS 08/18/2014 Patient Education: Patient Medication Summary Completed 08/18/2014 Patient Education: Patient Medication Summary Completed 08/13/2014 Visit Plan: Continue current meds Obtain most recent lab results Check thoracic spine x-rays Needs updated CT scan of adrenal tumor 07/08/2014 Appointment: Sapna Live WPtel: [address] [place], [place] [phone] 07/07 vm NEW PATIENT 07/08/2014 Patient Education: Patient Medication Summary Completed 07/08/2014 Patient Education: Patient Medication Summary Completed 07/08/2014 Referral: Ronadl Suhail Thibodeaux WPtel: [address] [id number] [place] Referral Completed Referral: Toby Bettencourt WPtel: [address] [place] [address] [address] [id number] [place] Referral Completed Referral: Rosario Monahan WPtel: [address] [facility] [address] [place] Referral Appointment Requested Instructions [...]
--- OUTSIDE RECORDS SUMMARY | 2020-02-05 07:50 | XMS REPORT | CCD ---
Author Author Jai Live D.O. Organization [facility] Address [address] [place] [address] Phone Care Team Providers Care Wet Process Operator Name Role Phone Sapna Live D.O., PP Unavailable CCM Unavailable Summary Purpose Interface Exchange Insurance Providers Payer name Policy type / Coverage type Covered libertarian ID Effective Begin Date Effective End Date GPA Commercial Insurance [id number] 2019 Unknown Family history Mother Diagnosis Age At Onset Cancer Unknown Father Diagnosis Age At Onset Congestive heart failure Unknown Coronary Artery Disease(CAD) Unknown Social History Social History Element Codes Description Effective Dates Tobacco history SNOMED CT: 9306350 Former smoker 10/09/2018 Marital status Unknown 07/08/2014 Number of children Unknown 1 07/08/2014 Employment Unknown Currently employed [employer] 07/08/[address]: 766450423 Never drinks alcohol 2013 Has the patient [...] Date Active famotidine 20 mg tablet RxNorm: 239884 1 Tablet(s) Oral QPM for postnasal drip/stomach 12/19/2019 01/18/2020 Active tramadol 50 mg tablet RxNorm: 105246 1 Tablet(s) Oral t hree times a day as needed for pain along with two tylenol 12/03/2019 No Stop Date Active doxycycline hyclate 100 mg capsule RxNorm: 0558552 1 Cap lee(s) Oral two times a day 11/03/2019 11/02/2019 Inactive doxycycline hyclate 100 mg capsule RxNorm: 2327967 1 Cap lee(s) Oral two times a day 11/03/2019 11/10/2019 Inactive tramadol 50 mg tablet RxNorm: 473922 1 Tablet(s) Oral t hree times a day as needed for pain along with two tylenol 10/27/2019 10/26/2019 Inactive tramadol 50 mg tablet RxNorm: 856577 1 Tablet(s) Oral t hree times a day as needed for pain along with two tylenol 10/27/2019 10/27/2019 Inactive cyclobenzaprine 10 mg tablet RxNorm: 738203 1 Tablet(s) Oral th ree times a day 10/27/2019 12/18/2019 Inactive Bactrim DS 800 mg-160 mg tablet RxNorm: 419142 1 Tablet(s) Oral two times a day 10/27/2019 11/03/2019 Inactive Bactrim DS 800 mg-160 mg tablet RxNorm: 014317 1 Tablet(s) Oral two times a day 10/27/2019 10/26/2019 Inactive tramadol 50 mg tablet RxNorm: 534852 1 Tablet(s) Oral t hree times a day as needed for pain along with two tylenol 09/29/2019 10/26/2019 Inactive quinapril 40 mg tablet RxNorm: 919552 1 Tablet(s) Oral QD 09/18/2019 03/15/2020 Active Patient requests 90 days supply tramadol 50 mg tablet RxNorm: 227074 1 Tablet(s) Oral t hree times a day as needed for pain along with two tylenol 08/28/2019 08/28/2019 Inactive tramadol 50 mg tablet RxNorm: 009300 1 Tablet(s) PO TID as needed for pain along with two tylenol 08/25/2019 08/27/2019 Inactive pantoprazole 40 mg tablet,delayed release RxNorm: 348397 1 Tabl et(s) Oral QD 08/13/2019 No Stop Date Active Vitamin D3 1,000 unit capsule RxNorm: 036315 1 Capsule(s) Oral QD 1 10/13/2018 12/18/2019 Inactive tamsulosin 0.4 mg capsule RxNorm: 102620 1 Capsule(s) Oral QPM 07/2612/18/2019 Inactive Protonix 40 mg tablet,delayed release RxNorm: 513079 TA KE 1 TABLET BY MOUTH TWICE A DAY 08/04/2019 08/12/2019 Inactive Flagyl 500 mg tablet RxNorm: 915589 1 Tablet(s) Oral three time s a day 07/03/2019 07/13/2019 Inactive fluconazole 100 mg tablet RxNorm: 133744 1 Tablet(s) Oral QD 201807/10/2019 Inactive Bactrim DS 800 mg-160 mg tablet RxNorm: 239010 1 Tablet(s) Oral two times a day 07/03/2019 07/13/2019 Inactive nystatin 100,000 unit/gram topical cream RxNorm: 121088 Application Topical two times a day 07/03/2019 08/12/2019 Inactive gabapentin 600 mg tablet RxNorm: 455164 Tablet(s) TAKE 1 TABLET BY MOUTH EVERY NIGHT AT BEDTIME 06/25/2019 08/12/2019 Inactive - First Attempt Ref: [id number] quinapril 40 mg tablet RxNorm: 934894 1 Tablet(s) Oral QD 06/23/2019 09/17/2019 Inactive Patient requests 90 days supply tramadol 50 mg tablet RxNorm: 466814 1 Tablet(s) PO TID as needed for pain along with two tylenol 05/23/2019 08/24/2019 Inactive hydroxyzine HCl 25 mg tablet RxNorm: 845963 1 Tablet(s) PO TID as needed 05/21/2019 08/12/2019 Inactive Elimite 5 % topical cream RxNorm: 432492 1 Application TOP QHS apply head to toe and was off in morning 05/19/2019 07/02/2019 Inactive Protonix 40 mg tablet,delayed release RxNorm: 878169 1 Tablet(s ) PO BID 05/05/2019 08/02/2019 Inactive - First Attempt Ref: [id number] gabapentin 600 mg tablet RxNorm: 758715 Tablet(s) TAKE 1 TABLET BY MOUTH EVERY NIGHT AT BEDTIME 04/25/2019 06/24/2019 Inactive - First Attempt Ref: [id number] tramadol 50 mg tablet RxNorm: 649925 1 Tablet(s) PO TID as needed for pain along with two tylenol 04/21/2019 05/22/2019 Inactive quinapril 40 mg tablet RxNorm: 495200 1 Tablet(s) PO QD 04/01/2019 Inactive Patient requests 90 days supply fenofibrate micronized 134 mg capsule RxNorm: 689143 1 Capsule(s) PO QD Due for updated fasting labs 03/31/2019 08/12/2019 Inactive dicyclomine 10 mg capsule RxNorm: 395148 1 Capsule(s) PO TID as needed 02/24/2019 05/20/2019 Inactive Flagyl 500 mg tablet RxNorm: 940490 1 Tablet(s) PO Q8H 02/24/201908/2019 Inactive ciprofloxacin 500 mg tablet RxNorm: 949818 1 Tablet(s) PO BID 02/2403/09/2019 Inactive Flagyl 500 mg tablet RxNorm: 932649 1 Tablet(s) PO Q6H 01/30/2019 Inactive ciprofloxacin 500 mg tablet RxNorm: 034355 1 Tablet(s) PO BID 01/3001/29/2019 Inactive Flagyl 500 mg tablet RxNorm: 860139 1 Tablet(s) PO Q6H 01/30/201904/2019 Inactive ciprofloxacin 500 mg tablet RxNorm: 086632 1 Tablet(s) PO BID 01/3002/05/2019 Inactive gabapentin 600 mg tablet RxNorm: 663355 TAKE 1 TABLET B Y MOUTH EVERY NIGHT AT BEDTIME 01/27/2019 04/24/2019 Inactive - First Attempt Ref: [id number] tramadol 50 mg tablet RxNorm: 159761 1 Tablet(s) PO TID as needed for pain along with two tylenol 01/08/2019 04/20/2019 Inactive fenofibrate micronized 134 mg capsule RxNorm: 389620 1 Capsule(s) PO QD Due for updated fasting labs 01/02/2019 03/30/2019 Inactive quinapril 40 mg tablet RxNorm: 732396 1 Tablet(s) PO QD 01/01/2019 Inactive Patient requests 90 days supply Protonix 40 mg tablet,delayed release RxNorm: 504583 TA KE 1 TABLET BY MOUTH TWICE A DAY 01/01/2019 03/31/2019 Inactive - First Attempt Ref: [id number] Protonix 40 mg tablet,delayed release RxNorm: 562298 TA KE 1 TABLET BY MOUTH TWICE A DAY 12/25/2018 12/31/2018 Inactive - First Attempt Ref: [id number] gabapentin 600 mg tablet RxNorm: 264711 TAKE 1 TABLET B Y MOUTH EVERY NIGHT AT BEDTIME 12/02/2018 01/26/2019 Inactive - First Attempt Ref: [id number] Protonix 40 mg tablet,delayed release RxNorm: 295292 1 Tablet(s ) PO BID 11/11/2018 12/24/2018 Inactive Protonix 40 mg tablet,delayed release RxNorm: 029895 1 Tablet(s ) PO BID 10/09/2018 11/10/2018 Inactive gabapentin 600 mg tablet RxNorm: 105591 1 Tablet(s) PO QHS 10/09/1912/01/2018 Inactive quinapril 40 mg tablet RxNorm: 690142 1 Tablet(s) PO QD 1 TABLE T(S) PO QD 08/08/2018 08/07/2018 Inactive Patient requests 9 0 days supply quinapril 40 mg tablet RxNorm: 616287 1 Tablet(s) PO QD 08/08/2018 Inactive Patient requests 90 days supply meloxicam 15 mg tablet RxNorm: 598289 1 Tablet(s) PO QD 08/08/2018 Inactive gabapentin 300 mg capsule RxNorm: 163697 1 CAPSULE(S) P O QHS DUE FOR WELLNESS VISIT 08/07/2018 10/08/2018 Inactive due for followup meloxicam 15 mg tablet RxNorm: 843275 Tablet(s) 1 TABLET(S) PO QD 1 10/07/2017 08/07/2018 Inactive fenofibrate micronized 134 mg capsule RxNorm: 919722 1 Capsule(s) PO QD Needs updated fasting labs!!!!!! 07/08/2018 07/07/2018 Inactive fenofibrate micronized 134 mg capsule RxNorm: 207361 1 Capsule( s) PO QD 07/08/2018 01/01/2019 Inactive fenofibrate micronized 134 mg capsule RxNorm: 237393 1 Capsule(s) PO QD Needs updated fasting labs!!!!!! 06/21/2018 07/08/2018 Inactive Medrol (Daniel) 4 mg tablets in a dose pack RxNorm: 058498 Tablet(s) PO As Directed 05/06/2018 05/05/2018 Inactive Medrol (Daniel) 4 mg tablets in a dose pack RxNorm: 480609 Tablet(s) PO As Directed 05/06/2018 08/07/2018 Inactive quinapril 40 mg tablet RxNorm: 686320 1 TABLET(S) PO QD 05/02/2018 Inactive Patient requests 90 days supply fenofibrate micronized 134 mg capsule RxNorm: 585524 1 Capsule(s) PO QD Needs updated fasting labs 04/29/2018 05/28/2018 Inactive Move Free Joint Health 750 mg-100 mg-1.65 mg-108 mg tablet R xNorm: 1 Tablet(s) PO QD 02/12/2018 03/13/2018 Inactive fenofibrate micronized 134 mg capsule RxNorm: 607524 Ca psule(s) 1 CAPSULE(S) PO QD 01/29/2018 06/21/2018 Inactive quinapril 40 mg tablet RxNorm: 243071 1 TABLET(S) PO QD 11/26/2017 Inactive Patient requests 90 days supply fenofibrate micronized 134 mg capsule RxNorm: 452834 1 CAPSULE( S) PO QD 11/06/2017 01/29/2018 Inactive gabapentin 300 mg capsule RxNorm: 509848 1 CAPSULE(S) P O QHS DUE FOR WELLNESS VISIT 10/24/2017 07/20/2018 Inactive due for followup meloxicam 15 mg tablet RxNorm: 857785 1 TABLET(S) PO QD 10/24/2017 Inactive quinapril 40 mg tablet RxNorm: 597638 1 Tablet(s) PO QD 10/24/2017 Inactive fenofibrate micronized 134 mg capsule RxNorm: 555536 1 Capsule( s) PO QD 08/22/2017 11/05/2017 Inactive fenofibrate micronized 134 mg capsule RxNorm: 347790 1 Capsule( s) PO QD 08/22/2017 08/21/2017 Inactive quinapril 20 mg tablet RxNorm: 130364 1 Tablet(s) PO QD 08/13/2017 Inactive gabapentin 300 mg capsule RxNorm: 614039 1 Capsule(s) P O QHS Due for wellness visit 08/06/2017 10/23/2017 Inactive due for followup gabapentin 300 mg capsule RxNorm: 552877 1 Capsule(s) P O QHS Due for wellness visit 08/02/2017 08/05/2017 Inactive due for followup meloxicam 15 mg tablet RxNorm: 851662 1 Tablet(s) PO QD 08/01/2017 Inactive gabapentin 300 mg capsule RxNorm: 379571 1 Capsule(s) P O QHS Due for wellness visit 08/01/2017 08/01/2017 Inactive due for followup gabapentin 300 mg capsule RxNorm: 402351 1 Capsule(s) P O QHS Due for wellness visit 08/01/2017 08/02/2017 Inactive gabapentin 300 mg capsule RxNorm: 674376 1 Capsule(s) PO QHS 201605/12/2017 Inactive quinapril 10 mg tablet RxNorm: 347363 1 Tablet(s) PO QD replace s quinapril hct 02/12/2017 08/12/2017 Inactive meloxicam 15 mg tablet RxNorm: 309556 1 Tablet(s) PO QD 02/05/2017 Inactive quinapril 10 mg tablet RxNorm: 818854 1 Tablet(s) PO QD replace s quinapril hct 11/16/2016 02/12/2017 Inactive gabapentin 300 mg capsule RxNorm: 928148 1 Capsule(s) PO QHS 201602/12/2017 Inactive quinapril 10 mg tablet RxNorm: 912495 1 Tablet(s) PO QD replace s quinapril hct 10/16/2016 11/15/2016 Inactive gabapentin 300 mg capsule RxNorm: 105020 1 Capsule(s) PO QHS 201511/15/2016 Inactive quinapril 10 mg tablet RxNorm: 742265 1 Tablet(s) PO QD replace s quinapril hct 07/19/2016 10/15/2016 Inactive meloxicam 15 mg tablet RxNorm: 683934 1 Tablet(s) PO QD 07/10/2016 Inactive meloxicam 15 mg tablet RxNorm: 846146 TAKE ONE TABLET BY MOUTH LUKE Y 07/10/2016 07/09/2016 Inactive meloxicam 15 mg tablet RxNorm: 683758 1 Tablet(s) PO QD 07/06/2016 Inactive meloxicam 15 mg tablet RxNorm: 926967 1 Tablet(s) PO QD 06/09/2016 Inactive Multivitamin & Mineral Formula tablet RxNorm: 1 Tablet(s) PO Q D 06/02/2016 07/01/2016 Inactive tamsulosin 0.4 mg capsule RxNorm: 605291 1 Capsule(s) PO QHS 201507/01/2016 Inactive Move Free Joint Health 750 mg-100 mg-1.65 mg-108 mg tablet R xNorm: 1 Tablet(s) PO QD 06/02/2016 07/01/2016 Inactive gabapentin 300 mg capsule RxNorm: 814147 1 Capsule(s) PO QHS 201508/27/2016 Inactive gabapentin 300 mg capsule RxNorm: 468522 Capsule(s) ALFONZO E ONE CAPSULE BY MOUTH AT BEDTIME 02/28/2016 05/27/2016 Inactive quinapril 10 mg-hydrochlorothiazide 12.5 mg tablet RxNorm: 3 40659 Tablet(s) TAKE ONE TABLET BY MOUTH EVERY MORNING 01/14/2016 07/18/2016 Inactive gabapentin 300 mg capsule RxNorm: 312243 TAKE ONE CAPSULE BY MO [facility] AT BEDTIME 12/28/2015 02/27/2016 Inactive Urecholine 25 mg tablet RxNorm: 137027 1 Tablet(s) PO TID 11/09/2015 07/18/2016 Inactive phenazopyridine 100 mg tablet RxNorm: 3849477 1 Tablet(s ) PO TID as needed for bladder spasms. 11/08/2015 11/08/2015 Inactive quinapril 10 mg-hydrochlorothiazide 12.5 mg tablet RxNorm: 3 69443 TAKE ONE TABLET BY MOUTH EVERY MORNING 10/15/2015 01/13/2016 Inactive gabapentin 300 mg capsule RxNorm: 809229 1 Tablet(s) PO QD TAKE ONE CAPSULE BY MOUTH EVERY NIGHT AT BEDTIME 09/23/2015 12/21/2015 Inactive quinapril 10 mg-hydrochlorothiazide 12.5 mg tablet RxNorm: 3 88104 Tablet(s) TAKE ONE TABLET BY MOUTH EVERY MORNING 07/14/2015 10/14/2015 Inactive gabapentin 300 mg capsule RxNorm: 520060 1 Tablet(s) PO QD TAKE ONE CAPSULE BY MOUTH EVERY NIGHT AT BEDTIME 06/25/2015 09/23/2015 Inactive prednisone 20 mg tablet RxNorm: 118181 1 Tablet(s) PO QD 06/14/2015 0 06/20/2015 Inactive cephalexin 500 mg capsule RxNorm: 725036 1 Capsule(s) PO BID 201405/27/2015 Inactive mupirocin 2 % topical ointment RxNorm: 105913 TOP BID 05/18/2015 0 06/13/2015 Inactive quinapril 10 mg-hydrochlorothiazide 12.5 mg tablet RxNorm: 3 51726 Tablet(s) TAKE ONE TABLET BY MOUTH EVERY MORNING 04/06/2015 07/14/2015 Inactive gabapentin 300 mg capsule RxNorm: 059398 1 Capsule(s) PO QHS 201404/01/2015 Inactive [SAVINGS FOR NON-COVERED LILIANA GS -- BIN:140213, PCN: ASPROD1, Group: XXXXX, ID# [id number], Questions: . THIS IS NOT INSURANCE.] gabapentin 300 mg capsule RxNorm: 410963 1 Capsule(s) PO QHS 201406/25/2015 Inactive [SAVINGS FOR NON-COVERED LILIANA GS -- BIN:059889, PCN: ASPROD1, Group: XXXXX, ID# [id number], Questions: . THIS IS NOT INSURANCE.] quinapril 10 mg-hydrochlorothiazide 12.5 mg tablet RxNorm: 3 53089 TAKE ONE TABLET BY MOUTH EVERY MORNING 12/11/2014 04/05/2015 Inactive gabapentin 300 mg capsule RxNorm: 245088 1 Capsule(s) PO QHS 201404/02/2015 Inactive [SAVINGS FOR NON-COVERED LILIANA GS -- BIN:563687, PCN: ASPROD1, Group: XXXXX, ID# [id number], Questions: . THIS IS NOT INSURANCE.] cyclobenzaprine 10 mg tablet RxNorm: 903746 1 Tablet(s) PO TID as needed for muscle spasm for muscle spasm 12/02/2014 02/21/2015 Inactive [S AVINGS FOR NON- COVERED DRUGS -- BIN:945894, PCN: ASPROD1, Group: XXXXX, ID# [id number], Questions: . THIS IS NOT INSURANCE.] gabapentin 100 mg capsule RxNorm: 157439 1 Capsule(s) PO QHS 201412/01/2014 Inactive [SAVINGS FOR NON-COVERED LILIANA GS -- BIN:444173, PCN: ASPROD1, Group: XXXXX, ID# [id number], Questions: . THIS IS NOT INSURANCE.] ibuprofen 800 mg tablet RxNorm: 510653 1 Tablet(s) PO T ID as needed low back pain 11/11/2014 11/23/2014 Inactive [SAVINGS FOR NON -COVERED DRUGS -- BIN:966752, PCN: ASPROD1, Group: XXXXX, ID# [id number], Questions: . THIS IS NOT INSURANCE.] ibuprofen 800 mg tablet RxNorm: 338128 1 Tablet(s) PO T ID as needed low back pain 11/09/2014 11/10/2014 Inactive [SAVINGS FOR NON -COVERED DRUGS -- BIN:476475, PCN: ASPROD1, Group: XXXXX, ID# [id number], Questions: . THIS IS NOT INSURANCE.] Zorvolex 35 mg capsule RxNorm: 0971280 1 Tablet(s) PO TID 08/27/2014 10/01/2014 Inactive [SAVINGS FOR UNINSURED PATIENTS -- BIN:0 82907, PCN: ASPROD1, Group: [id number], ID# [id number], Process claim through [employer], for questions: . THIS IS NOT INSURANCE.] quinapril 10 mg-hydrochlorothiazide 12.5 mg tablet RxNorm: 3 79539 1 Tablet(s) PO QAM 08/27/2014 11/24/2014 Inactive Lidoderm 5 % (700 mg/patch) adhesive patch RxNorm: 0058628 Application TOP for 12hours then off for pain 08/18/2014 02/21/2015 Inactive [SAVIN GS FOR UNINSURED PATIENTS -- BIN:239589, PCN: ASPROD1, Group: [id number], ID# [id number], Process claim through [employer], for questions: . THIS IS NOT INSURANCE.] Zorvolex 35 mg capsule RxNorm: 2561467 1 Tablet(s) PO TID 08/13/2014 08/12/2014 Inactive Zorvolex 35 mg capsule RxNorm: 5454968 1 Tablet(s) PO TID 08/13/2014 08/24/2014 Inactive [SAVINGS FOR UNINSURED PATIENTS -- BIN:0 24154, PCN: ASPROD1, Group: AME08, ID# [id number], Process claim through [email or web address], for questions: . THIS IS NOT INSURANCE.] Aspirin Child 81 mg chewable tablet RxNorm: 076361 1 Tablet(s) PO QD No Start Date Active ibuprofen 800 mg tablet RxNorm: 621624 1 Tablet(s) PO T ID as needed low back pain No Start Date 11/08/2014 Inactive cyclobenzaprine 10 mg tablet RxNorm: 100295 1 Tablet(s) PO TID No S tart Date 08/12/2017 Inactive garlic 1,000 mg capsule RxNorm: 530898 1 Capsule(s) PO QD No Start Date 04/22/2019 Inactive tramadol 50 mg tablet RxNorm: 569851 1 Tablet(s) PO Q4-6H as ne eded for pain No Start Date 02/21/2015 Inactive tramadol 50 mg tablet RxNorm: 722528 1 Tablet(s) PO TID as needed for pain along with two tylenol No Start Date 01/07/2019 Inactive krill oil oral RxNorm: 92156 oral No Start Date 11/11/2018 Inacti ve Vitamin D3 2,000 unit tablet RxNorm: 747964 1 Tablet(s) PO QD No St art Date 08/12/2019 Inactive gabapentin 100 mg tablet RxNorm: 906441 1 Tablet(s) PO QD No Start Date 11/10/2014 Inactive Zofran 4 mg tablet RxNorm: 965195 1 Tablet(s) PO Q6H as needed No S tart Date 08/12/2019 Inactive Elimite 5 % topical cream RxNorm: 335871 1 Application TOP QHS apply head to toe and was off in morning No Start Date 05/18/2019 Inactive gabapentin 100 mg capsule RxNorm: 291964 1 Capsule(s) PO QHS No Sta rt Date 11/10/2014 Inactive aspirin 325 mg tablet RxNorm: 832598 2 Tablet(s) PO QD No Start Date 08/17/2014 Inactive Fish Oil 1,000 mg capsule RxNorm: 1 Capsule(s) PO QD No Start Date 10/08/2018 Inactive quinapril 10 mg-hydrochlorothiazide 12.5 mg tablet RxNorm: 3 24784 1 Tablet(s) PO QAM No Start Date 08/26/2014 Inactive quinapril 40 mg tablet RxNorm: 119118 1 Tablet(s) PO QD No Start Da te 10/23/2017 Inactive Medrol (Daniel) 4 mg tablets in a dose pack RxNorm: 700887 Tablet(s) PO As Directed No Start Date 05/05/2018 Inactive Urecholine 25 mg tablet RxNorm: 420043 1 Tablet(s) PO TID No Start Date 11/08/2015 Inactive cyclobenzaprine 10 mg tablet RxNorm: 909220 1/2-1 Table t(s) PO TID as needed for muscle spasm No Start Date 12/01/2014 Inactive tamsulosin 0.4 mg capsule RxNorm: 936685 2 Capsule(s) PO QPM No Sta rt Date 08/12/2019 Inactive hydrocodone 5 mg-acetaminophen 325 mg tablet RxNorm: 665544 1 -2 Tablet(s) PO Q6H as needed No Start Date 05/20/2019 Inactive loratadine 10 mg tablet RxNorm: 799926 1 Tablet(s) PO QD No Start D ate 07/07/2014 Inactive Medication Administered No Medication Administered data Immunizations Vaccine Codes Date Status Influenza CVX: 141 07/21/2019 Results Observation Observation Code Item Item Code Result Date S [facility] Location CULTURE, AEROBIC BACTERIA 66375 CULTURE, AEROBIC BACTERIA SEE NOTE 10/30/2019 Zay Becerra [address] [place] [address] CULTURE, URINE, ROUTINE 395 CULTURE SEE NOTE 1 10/15/2018 Zay Becerra [address] [place] [address] CULTURE, URINE, ROUTINE 395 CULTURE, URINE, ROUTINE SEE NOTE 08/15/2019 Zay Becerra [address] [place] [address] CBC (H/H, RBC, INDICES, WBC, PLT) 60055 WHITE BLOOD CELL COU NT 7.9 Thousand/uL 08/14/2019 Zay Becerra [address] [place] [address] CBC (H/H, RBC, INDICES, WBC, PLT) 86158 RED BLOOD CELL COUNT 4.93 Million/uL 08/14/2019 [facility] [address] CBC (H/H, RBC, INDICES, WBC, PLT) 27003 HEMOGLOBIN 15 .4 g/dL 08/14/2019 [facility] [address] CBC (H/H, RBC, INDICES, WBC, PLT) 97350 HEMATOCRIT 45 .0 % 08/14/2019 [facility] [address] CBC (H/H, RBC, INDICES, WBC, PLT) 79388 MCV 91 .3 fL 08/14/2019 [facility] [address] CBC (H/H, RBC, INDICES, WBC, PLT) 62463 MCH 31 .2 pg 08/14/[address] [address] CBC (H/H, RBC, INDICES, WBC, PLT) 66043 MCHC 34 .2 g/dL 08/14/2019 [facility] [address] CBC (H/H, RBC, INDICES, WBC, PLT) 69551 RDW 12 .7 % 08/14/2019 [facility] [address] CBC (H/H, RBC, INDICES, WBC, PLT) 05606 PLATELET COUNT 214 Thousand/uL 08/14/2019 [facility] [address] CBC (H/H, RBC, INDICES, WBC, PLT) 39427 MPV 11 .5 fL 08/14/2019 [facility] [address] COMPREHENSIVE METABOLIC PANEL 70328 Glucose 113 mg /dL 08/14/2019 [facility] [address] COMPREHENSIVE METABOLIC PANEL 20091 UREA NITROGEN (BUN) 16 mg/dL 08/14/2019 [facility] [address] COMPREHENSIVE METABOLIC PANEL 51843 CREATININE 0.86 m g/dL 08/14/2019 [facility] [address] COMPREHENSIVE METABOLIC PANEL 88720 eGFR NON-AFR. TRISTANIAN 92 mL/min/1.73m2 08/14/2019 [facility] [address] [address] COMPREHENSIVE METABOLIC PANEL 41130 eGFR 106 mL/min/1.73m2 08/14/2019 [facility] [address] [address] COMPREHENSIVE METABOLIC PANEL 06435 BUN/CREATININE RATIO NOT APPLICABLE (calc) 08/14/2019 [facility] [address] [address] COMPREHENSIVE METABOLIC PANEL 05991 SODIUM 141 mm ol/L 08/14/2019 [facility] [address] [address] COMPREHENSIVE METABOLIC PANEL 93098 POTASSIUM 4.1 mm ol/L 08/14/2019 [facility] [address] [address] COMPREHENSIVE METABOLIC PANEL 45422 CHLORIDE 102 mm ol/L 08/14/2019 [facility] [address] COMPREHENSIVE METABOLIC PANEL 48116 CARBON DIOXIDE 28 mmol/L 08/14/2019 [facility] [address] [address] COMPREHENSIVE METABOLIC PANEL 03848 CALCIUM 9.7 mg /dL 08/14/2019 [facility] [address] [address] COMPREHENSIVE METABOLIC PANEL 75133 PROTEIN, TOTAL 6. 7 g/dL 08/14/2019 [facility] [address] [address] COMPREHENSIVE METABOLIC PANEL 09824 ALBUMIN 4.3 g/ dL 08/14/2019 [facility] [address] [address] COMPREHENSIVE METABOLIC PANEL 72261 GLOBULIN 2.4 g/ dL(calc) 08/14/2019 [facility] [address] [address] COMPREHENSIVE METABOLIC PANEL 27253 ALBUMIN/GLOBULIN RATIO 1.8 (calc) 08/14/2019 [facility] [address] [address] COMPREHENSIVE METABOLIC PANEL 89438 BILIRUBIN, TOTAL 1.0 mg/dL 08/14/2019 [facility] [address] COMPREHENSIVE METABOLIC PANEL 09551 ALKALINE PHOSPHATASE 56 U/L 08/14/2019 [facility] [address] COMPREHENSIVE METABOLIC PANEL 23253 AST 18 U/L 08/14/2019 [facility] [address] COMPREHENSIVE METABOLIC PANEL 95311 ALT 28 U/L 08/14/2019 [facility] [address] MAGNESIUM 53794 MAGNESIUM 2.0 mg/dL 06/06/2019 [facility] [address] COMPREHENSIVE METABOLIC PANEL 02853 Glucose 106 mg /dL 06/06/2019 [facility] [address] COMPREHENSIVE METABOLIC PANEL 08790 UREA NITROGEN (BUN) 22 mg/dL 06/06/2019 [facility] [address] COMPREHENSIVE METABOLIC PANEL 15094 CREATININE 1.29 m g/dL 06/06/2019 [facility] [address] COMPREHENSIVE METABOLIC PANEL 87714 eGFR NON-AFR. TRISTANIAN 58 mL/min/1.73m2 06/06/2019 [facility] [address] COMPREHENSIVE METABOLIC PANEL 37454 eGFR 67 mL/min/1.73m2 06/06/2019 [facility] [address] COMPREHENSIVE METABOLIC PANEL 81071 BUN/CREATININE RATIO 17 (calc) 06/06/2019 [facility] [address] COMPREHENSIVE METABOLIC PANEL 59969 SODIUM 138 mm ol/L 06/06/2019 [facility] [address] COMPREHENSIVE METABOLIC PANEL 18700 POTASSIUM 4.2 mm ol/L 06/06/2019 [facility] [address] COMPREHENSIVE METABOLIC PANEL 93209 CHLORIDE 101 mm ol/L 06/06/2019 [facility] [address] COMPREHENSIVE METABOLIC PANEL 95683 CARBON DIOXIDE 29 mmol/L 06/06/2019 [facility] [address] COMPREHENSIVE METABOLIC PANEL [address] CALCIUM 9.6 mg /dL 06/06/2019 [facility] [place] [facility] [address] COMPREHENSIVE METABOLIC PANEL 88762 PROTEIN, TOTAL 6. 9 g/dL 06/06/2019 [facility] [place] [facility] [address] COMPREHENSIVE METABOLIC PANEL 28771 ALBUMIN 4.4 g/ dL 06/06/2019 [facility] [address] COMPREHENSIVE METABOLIC PANEL 98760 GLOBULIN 2.5 g/ dL(calc) 06/06/[address] [address] COMPREHENSIVE METABOLIC PANEL 43477 ALBUMIN/GLOBULIN RATIO 1.8 (calc) 06/06/2019 [facility] [place] [facility] [address] COMPREHENSIVE METABOLIC PANEL 35332 BILIRUBIN, TOTAL 0.7 mg/dL 06/06/2019 [facility] [address] COMPREHENSIVE METABOLIC PANEL 98057 ALKALINE PHOSPHATASE 45 U/L 06/06/2019 [facility] [place] [address] [facility] [address] COMPREHENSIVE METABOLIC PANEL 31430 AST 21 U/L 06/06/2019 [facility] [place] [facility] [address] COMPREHENSIVE METABOLIC PANEL 36627 ALT 34 U/L 06/06/2019 [facility] [address] CULTURE, URINE, ROUTINE 395 CULTURE, URINE, ROUTINE SEE NOTE 04/23/2019 [facility] [place] [facility] [address] CULTURE, URINE, ROUTINE 395 CULTURE SEE NOTE 0 04/23/2019 [facility] [address] EXTRA 1014 EXTRA TUBE RECEIVED 04/22 [employer]Stallings Becerra [address] [place] [phone] EXTRA 1014 SPECIMEN TYPE RECEIVED: LAV 0 04/22/2019 [employer] [address] [address] COMPREHENSIVE METABOLIC PANEL 34484 Glucose 94 mg/ dL 04/22/2019 [facility] [address] [address] COMPREHENSIVE METABOLIC PANEL 40272 UREA NITROGEN (BUN) 20 mg/dL 04/22/2019 [facility] [address] [address] COMPREHENSIVE METABOLIC PANEL 86071 CREATININE 1.30 m g/dL 04/22/2019 [facility] [address] [address] COMPREHENSIVE METABOLIC PANEL 10125 eGFR NON-AFR. TRISTANIAN 58 mL/min/1.73m2 04/22/2019 [facility] [address] [address] COMPREHENSIVE METABOLIC PANEL 90879 eGFR 67 mL/min/1.73m2 04/22/2019 [facility] [address] [address] COMPREHENSIVE METABOLIC PANEL 73526 BUN/CREATININE RATIO 15 (calc) 04/22/2019 [facility] [address] [address] COMPREHENSIVE METABOLIC PANEL 91989 SODIUM 139 mm ol/L 04/22/2019 [facility] DiagnosticsChiragStallings [address] [address] COMPREHENSIVE METABOLIC PANEL 78108 POTASSIUM 4.2 mm ol/L 04/22/2019 [facility] [address] [address] COMPREHENSIVE METABOLIC PANEL 82904 CHLORIDE 104 mm ol/L 04/22/2019 [facility] [address] [address] COMPREHENSIVE METABOLIC PANEL 87342 CARBON DIOXIDE 27 mmol/L 04/22/2019 [facility] [address] [address] COMPREHENSIVE METABOLIC PANEL 02264 CALCIUM 9.9 mg /dL 04/22/2019 [facility] [address] [address] COMPREHENSIVE METABOLIC PANEL 68150 PROTEIN, TOTAL 7. 1 g/dL 04/22/2019 [facility]-Stallings[address] [address] COMPREHENSIVE METABOLIC PANEL 43813 ALBUMIN 4.6 g/ dL 04/22/2019 [facility] [address] COMPREHENSIVE METABOLIC PANEL 47442 GLOBULIN 2.5 g/ dL(calc) 04/22/2019 [facility] [place] [facility] [address] COMPREHENSIVE METABOLIC PANEL 74048 ALBUMIN/GLOBULIN RATIO 1.8 (calc) 04/22/2019 [facility] [place] [facility] [address] COMPREHENSIVE METABOLIC PANEL 07526 BILIRUBIN, TOTAL 0.4 mg/dL 04/22/2019 [facility] [place] [facility] [address] COMPREHENSIVE METABOLIC PANEL 62986 ALKALINE PHOSPHATASE 53 U/L 04/22/2019 [facility] [place] [facility] [address] COMPREHENSIVE METABOLIC PANEL 47201 AST 21 U/L 04/22/2019 [facility] [place] [facility] [address] COMPREHENSIVE METABOLIC PANEL 97798 ALT 34 U/L 04/22/2019 [facility] [address] CULTURE, URINE, ROUTINE 395 CULTURE, URINE, ROUTINE SEE NOTE 01/31/[address] [address] Procedures Procedure Codes Date CULTURE, AEROBIC BACTERIA CPT-4: 46512 10/27/2019 URINALYSIS NONAUTO W/O SCOPE CPT-4: 14688 10/02/2019 URINE CULTURE/ COLONY COUNT CPT-4: 48549 10/02/2019 ROUTINE VENIPUNCTURE CPT-4: 77125 08/13/2019 URINALYSIS NONAUTO W/O SCOPE CPT-4: 14989 08/13/2019 CULTURE, URINE, ROUTINE CPT-4: 395 08/13/2019 COMPREHENSIVE METABOLIC PANEL CPT-4: 27187 08/13/2019 CBC (H/H, RBC, INDICES, WBC, PLT) CPT-4: 81714 2018 COMPREHENSIVE METABOLIC PANEL CPT-4: 13401 06/05/2019 MAGNESIUM CPT-4: 32010 06/05/2019 DEXAMETHASONE SODIUM PHOS CPT-4: J1100 05/21/2019 THER/PROPH/DIAG INJ SC/IM CPT-4: 10823 05/21/2019 TRIAMCINOLONE ACET INJ NOS CPT-4: J3301 05/21/2019 ROUTINE VENIPUNCTURE CPT-4: 57796 04/21/2019 COMPREHENSIVE METABOLIC PANEL CPT-4: 52564 04/21/2019 EXTRA CPT-4: 1014 04/21/2019 CULTURE, URINE, ROUTINE CPT-4: 395 04/21/2019 URINALYSIS NONAUTO W/O SCOPE CPT-4: 74458 04/21/2019 URINALYSIS NONAUTO W/O SCOPE CPT-4: 89053 01/29/2019 CULTURE, URINE, ROUTINE CPT-4: 395 01/29/2019 DRAIN/INJECT JOINT/BURSA CPT-4: 45334 02/19/2018 TRIAMCINOLONE ACET INJ NOS CPT-4: J3301 02/19/2018 DEXAMETHASONE SODIUM PHOS CPT-4: J1100 02/19/2018 THER/PROPH/DIAG INJ SC/IM CPT-4: 61922 02/12/2018 TRIAMCINOLONE ACET INJ NOS CPT-4: J3301 02/12/2018 DEXAMETHASONE SODIUM PHOS CPT-4: J1100 02/12/2018 CEFTRIAXONE SODIUM INJECTION CPT-4: J0696 12/03/2017 THER/PROPH/DIAG INJ SC/IM CPT-4: 37109 12/03/2017 THER/PROPH/DIAG INJ SC/IM CPT-4: 40474 12/03/2017 METHYLPREDNISOLONE INJECTION CPT-4: J2930 12/03/2017 URINALYSIS NONAUTO W/O SCOPE CPT-4: 39588 08/13/2017 STREP A ASSAY W/OPTIC CPT-4: 61466 02/13/2017 DESTRUCT PREMALG LESION (Cryosurgery) CPT-4: 46052 Vital Signs Date Vital 10/27/2019 Blood Pressure [...] 1: 128/78 Code: 8480-6 BMI: 36.0 Code: 61060-6 Heart Rate 1: 68 bpm Height: 5'7" [...] 1: 138/86 Code: 8480-6 BMI: 35.6 Code: 61279-4 Heart Rate 1: 68 bpm Height: 5'7" SpO2: 95% Temperature: 36.6 (C) / 97.8 (F) Weight: 227 lbs 12/03/2017 Blood Pressure 1: 134/84 Code: 8480-6 BMI: 34.3 Code: 47174-2 Heart Rate 1: 68 bpm Height: 5'7" Respiratory Rate: 20 bpm SpO2: 96% Tempera ture: 35.9 (C) / 96.6 (F) Weight: 219 lbs 09/11/2017 Blood Pressure 1: 140/86 Code: 8480-6 BMI: 34.9 Code: 07252-2 Heart Rate 1: 84 bpm Height: 5'7" Respiratory Rate: 20 bpm SpO2: 95% Tempera ture: 36.7 (C) / 98.1 (F) Weight: 223 lbs 08/13/2017 Blood Pressure 1: 142/94 Code: 8480-6 BMI: 34.5 Code: 80404-4 Heart Rate 1: 76 bpm Height: 5'7" Respiratory Rate: 20 bpm SpO2: 96% Tempera ture: 37.1 (C) / 98.8 (F) Weight: 220 lbs 11/17/2016 Blood Pressure 1: 118/78 Code: 8480-6 He art Rate 1: 64 bpm 07/19/2016 Blood Pressure 1: 112/58 Code: 8480-6 BMI: 31.6 Code: 52390-2 Heart Rate 1: 88 bpm Height: 5'7" Respiratory Rate: 22 bpm SpO2: 98% Tempera ture: 36.3 (C) / 97.4 (F) Weight: 202 lbs 06/09/2016 Blood Pressure 1: 138/84 Code: 8480-6 BMI: 32.1 Code: 16262-2 Heart Rate 1: 58 bpm Height: 5'7" Respiratory Rate: 20 bpm SpO2: 97% Tempera ture: 36.6 (C) / 97.8 (F) Weight: 205 lbs 11/08/2015 Blood Pressure 1: 142/80 Code: 8480-6 BMI: 32.4 Code: 51644-4 Heart Rate 1: 76 bpm Height: 5'7" Respiratory Rate: 20 bpm Temperature: 36 .6 (C) / 97.9 (F) Weight: 207 lbs 06/14/2015 Blood Pressure 1: 126/80 Code: 8480-6 Heart Rate 1: 84 bpm Respiratory Rate: 20 bpm Temperature: 36.8 (C) / 98.2 (F) Weight: 206 lbs 05/18/2015 Blood Pressure 1: 124/80 Code: 8480-6 BMI: 32.3 Code: 15035-2 Heart Rate 1: 68 bpm Height: 5'7" Respiratory Rate: 20 bpm Temperature: 36 .4 (C) / 97.6 (F) Weight: 206 lbs 02/22/2015 Blood Pressure 1: 126/78 Code: 8480-6 BMI: 32.1 Code: 06190-6 Heart Rate 1: 76 bpm Height: 5'7" Respiratory Rate: 20 bpm Temperature: 36 .6 (C) / 97.9 (F) Weight: 205 lbs 12/02/2014 Blood Pressure 1: 124/80 Code: 8480-6 BMI: 32.7 Code: 72581-9 Heart Rate 1: 70 bpm Height: 5'7" Respiratory Rate: 18 bpm Temperature: 36 .6 (C) / 97.9 (F) Weight: 209 lbs 08/18/2014 Blood Pressure 1: 132/94 Code: 8480-6 BMI: 34.5 Code: 96420-9 Heart Rate 1: 84 bpm Height: 5'6" Respiratory Rate: 20 bpm Temperature: 36 .6 (C) / 97.9 (F) Weight: 217 lbs 07/08/2014 Blood Pressure 1: 142/88 Code: 8480-6 BMI: 34.3 Code: 15281-7 Heart Rate 1: 72 bpm Height: 5'6" [...] Visit Encounters Encounter Performer Location Codes Date ([id number]) OFFICE/OUTPATIENT VISIT EST Diagnosis: Allergic rhinitis[ICD10: J30.9] Diagnosis: Postnasal drip[ICD10: R09.82] Sapna Salas CPT-4: 47761 12/19/2019 ([id number]) NO CHARGE Diagnosis: Infected sebaceous cyst[ICD10: L72.3] Sapna CappsAmarjit PAULYNDER [employer] CPT-4: 37680 11/03/2019 ([id number]) OFFICE/OUTPATIENT VISIT EST Diagnosis: Disorder of the skin and subcutaneous tissue, unspecified[ICD10: L98.9] Diagnosis: Infected sebaceous cyst[ICD10: L72.3] Diagnosis: Local infection of the skin and subcutaneous tissue, unspecified[ICD10: L08.9] Lashell CappsAmarjit PAULYNDER [employer] CPT-4 : 02457 10/27/2019 ([id number]) OFFICE/OUTPATIENT VISIT EST Diagnosis: Suprapubic abdominal pain[ICD10: R10.2] Diagnosis: Aortic regurgitation[ICD10: I35.1] Sapna Calos SANCHEZ LOTUS SAmarjit PAULYNDER [employer] CPT-4: 35238 10/02/2019 ([id number]) OFFICE/OUTPATIENT VISIT EST Diagnosis: Chest pain[ICD10: R07.9] Lashell CappsAmarjit HAMZAH MANUELITO [employer] CPT-4: 58574 08/25/2019 ([id number]) OFFICE/OUTPATIENT VISIT EST Diagnosis: Thoracic back pain[ICD10: M54.6] Diagnosis: Disorder of kidney and ureter, unspecified[ICD10: N28.9] Diagnosis: Personal history of nicotine dependence[ICD10: Z87.891] 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] Lashell BRUNSONLINE JefryAmarjit CANDICE ANGELY [employer] CPT-4: 40144 08/13/2019 ([id number]) OFFICE/OUTPATIENT VISIT EST Diagnosis: Sigmoid diverticulitis[ICD10: K57.32] Diagnosis: Renal insufficiency[ICD10: N28.9] Diagnosis: Jock itch[ICD10: B35.6] Sapna Calos BRUNSONLINE SAmarjit PARDO [employer] CPT-4: 39571 07/03/2019 ([id number]) OFFICE/OUTPATIENT VISIT EST Diagnosis: Cramp and spasm[ICD10: R25.2] Diagnosis: Disorder of kidney and ureter, unspecified[ICD10: N28.9] Lashell LIVE DO [facility] CPT-4: 92759 06/05/2019 ([id number]) OFFICE/OUTPATIENT VISIT EST Diagnosis: Other pruritus[ICD10: L29.8] Diagnosis: Pain in right knee[ICD10: M25.561] Lashell LIVE DO [facility] CPT-4: 93068 05/21/2019 ([id number]) NURSE/OUTPATIENT VISIT EST Diagnosis: Edema, unspecified[ICD10: R60.9] Sapna Alcantarajasongustabo BRUNSONSAPNA Vickie LIVE [employer] [facility] CPT-4: 24783 04/21/2019 ([id number]) OFFICE/OUTPATIENT VISIT EST Diagnosis: Diverticulitis of large intestine without perforation or abscess without bleeding[ICD10: K57.32] Diagnosis: Snoring[ICD10: R06.83] Diagnosis: Other constipation[ICD10: K59.09] Lashell LIVE [employer] [facility] CPT-4: 76428 02/24/2019 ([id number]) OFFICE/OUTPATIENT VISIT EST Diagnosis: Diverticulitis of large intestine without perforation or abscess with bleeding[ICD10: K57.33] Nancy CORRAL Vickie LIVE [employer] [facility] CPT-4: 39460 02/04/2019 ([id number]) OFFICE/OUTPATIENT VISIT EST Diagnosis: Left lower quadrant pain[ICD10: R10.32] Nancy LORA Vickie LIVE [employer] [facility] CPT-4: 77099 01/29/2019 OFFICE/OUTPATIENT VISIT EST Diagnosis: Dermatitis, unspecified[ICD10: L30.9] Diagnosis: Gastro-esophageal reflux disease without esophagitis[ICD10: K21.9] Diagnosis: Palpitations[ICD10: R00.2] Sapna CORRAL Vickie [facility] CPT-4: 11952 12/19/2018 ([id number]) OFFICE/OUTPATIENT VISIT EST Diagnosis: Gastro-esophageal reflux disease without esophagitis[ICD10: K21.9] Diagnosis: Dysphagia, pharyngoesophageal phase[ICD10: R13.14] Sapna BRUNSONLINE Vickie LIVE [employer] CPT-4: 28343 11/11/2018 ([id number]) PREV VISIT EST AGE 40-64 Diagnosis: Encounter [...] and disorders of digestive system[ICD10: K91.89] Lashell [employer] CPT-4: 99 396 10/09/2018 ([id number]) OFFICE/OUTPATIENT VISIT EST Diagnosis: Pain in right knee[ICD10: M25.561] Diagnosis: Pain in right hip[ICD10: M25.551] Lashell NICHOLE Manuel Vickie [employer] CPT-4: 59645 02/12/2018 OFFICE/OUTPATIENT VISIT EST Diagnosis: Essential (primary) hypertension[ICD10: I10] Diagnosis: Other chest pain[ICD10: R07.89] Lashell BRUNSONLINE Vickie LIVE [employer] CPT-4: 84097 12/03/2017 ([id number]) OFFICE/OUTPATIENT VISIT EST Diagnosis: Essential (primary) hypertension[ICD10: I10] Sapna BRUNSONLINE [employer] CPT-4: 19990 09/11/2017 ([id number]) PREV VISIT EST AGE 40-64 Diagnosis: Encounter for general adult medical examination without abnormal findings[ICD10: Z00.00] Diagnosis: Essential (primary) hypertension[ICD10: I10] Diagnosis: Left lower quadrant pain[ICD10: R10.32] Diagnosis: Left upper quadrant pain[ICD10: R10.12] Diagnosis: Other intervertebral disc degeneration, 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] Sapna LIVE [facility] CPT-4: 28426 08/13/2017 ([id number]) OFFICE/OUTPATIENT VISIT EST Diagnosis: Acute pharyngitis, unspecified[ICD10: J02.9] Sapna LIVE [facility] CPT-4: 63609 02/13/2017 ([id number]) PREV VISIT EST AGE 40-64 Diagnosis: Encounter for general adult medical examination without abnormal findings[ICD10: Z00.00] Diagnosis: Essential (primary) hypertension[ICD10: I10] 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] Sapna LIVE [facility] CPT-4: 28170 07/19/2016 OFFICE/OUTPATIENT VISIT EST Diagnosis: Pain in thoracic spine[ICD10: M54.6] Diagnosis: Disorder of the skin and subcutaneous tissue, unspecified[ICD10: L98.9] Sobia Monreal SAPNA LIVE [facility] CPT-4: 67244 06/09/2016 OFFICE/OUTPATIENT VISIT EST Diagnosis: Retention of urine, unspecified[ICD10: R33.9] Diagnosis: Urinary tract infection, site not specified[ICD10: N39.0] Chelsie LIVE [facility] CPT-4: 49675 11/08/2015 ([id number]) OFFICE/OUTPATIENT VISIT EST Diagnosis: DERMATITIS NOS[ICD9: 692.9] Diagnosis: SEBACEOUS CYST[ICD9: 706.2] Sapna Capps. 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] Diagnosis: Scoliosis[ICD9: 737.30] Sapna PARDO DO [facility] CPT-4: 59377 12/02/2014 ([id number]) OFFICE/OUTPATIENT VISIT EST Diagnosis: Thoracic back pain[ICD9: 724.1] Diagnosis: ACTINIC KERATOSIS[ICD9: 702.0] Sapna LIVE DO [facility] CPT-4: 97753 08/18/2014 OFFICE/OUTPATIENT VISIT NEW Diagnosis: HYPERTENSION[ICD9: 401.9] Diagnosis: Thoracic back pain[ICD9: 724.1] Diagnosis: GERD[ICD9: 530.81] Diagnosis: Adrenal tumor[ICD9: 239.7] Sapna AU [employer] [facility] CPT-4: 45864 07/08/2014 ([id number]) OFFICE/OUTPATIENT VISIT NEW Diagnosis: HYPERTENSION[ICD9: 401.9] Diagnosis: GERD[ICD9: 530.81] Sapna LIVE DO [facility] CPT-4: 78851 07/08/2014 Plan of Care Planned Activity Notes Codes Status Date Visit Diagnosis Plan: Allergic rhinitis Discussion: Cl aritin 10mg po BID Call Sunday with how symptoms are doing Will also add famotodine at bedtime to cover for reflux etiology ICD-9 : 477.9 ICD-10 : J30.9 12/19/2019 Patient Education: famotidine- [employer] [id number] [email or web address] Completed 12/19/2019 Visit Diagnosis Plan: Infected sebaceous cyst Discussi on: Sent out 1 week of doxycycline ICD-9 : 706.2 ICD-10 : L72.3 11/03/2019 Appointment: Sapna Live [facility]el[facility] [phone] [facility] [facility] 11/03/2019 Visit Diagnosis Plan: [...] : L08.9 10/27/2019 [facility]ment: [facility] [facility] 10/27/2019 Patient Education: tramadol- [employer] [id number] [email or web address] Completed 10/27/2019 Visit Plan: Update Low Dose [...] : I35.1 10/02/2019 Appointment: Sapna Live WPtel: [facility] [facility] 10/02/2019 Care Plan: Referral Order SNOMED-CT : [id number] Pending 10/02/2019 Visit Diagnosis Plan: Chest pain Discussion: will star t with cxray and rib xray. discussed that could be lung, rib, muscle but will start with cxray and patient may need echo. he verbalized understanding. ICD-9 : 786.50 ICD-10 : R07.9 08/25/2019 Appointment: [facility]hell [facility] [facility] 08/25/2019 Visit Diagnosis Plan: Thoracic back pain Discussion: c hronic pain. will refer to dr. stallings at [facility] for evaluation and treatment ICD-9 : 724.1 [...] ct of lungs to be done at [facility]. ICD-9 : V15.82 ICD-10 : Z87.891 [...] ICD-10 : E27.8 08/13/2019 Appointment: Lashell Joe [address] [place], [place] [phone] [place] FOLLOW UP 08/13/2019 Visit Diagnosis Plan: Sigmoid diverticulitis Discussio n: Bactrim/Flagyl Flushing diet To ER this weekend if worsening ICD-9 : 562.11 ICD-10 : K57.32 07/03/2019 Visit Diagnosis Plan: Jock itch Discussion: Diflucan a nd topical nystatin ICD-9 : 110.3 ICD-10 : B35.6 07/03/2019 Visit Diagnosis Plan: Renal insufficiency Discussion: Labs discussed Continue off NSAIDS Hydrate Recheck Chemistry 3mos ICD-9 : 593.9 ICD-10 : N28.9 07/03/2019 Appointment: Sapna Live WPtel: [phone] [facility] [place] FOLLOW UP 07/03/2019 Patient Education: fluconazole- [employer] [id number] Completed 07/03/2019 Patient Education: nystatin- [employer] [id number] Completed 07/03/2019 Visit Diagnosis Plan: Disorder of [...] ICD-10 : R25.2 06/05/2019 Appointment: Lashell Joe [address] [place], [place] [id number] NO SHOW - FORGIVEN 06/05/2019 Appointment: Lashell Joe [address] [place], [place] [phone] ACUTE ILLNESS 06/05/2019 Visit Diagnosis Plan: Pain [...] ICD-10 : L29.8 05/21/2019 Appointment: Lashell Joe [address] [place], [place] [address] ACUTE ILLNESS 05/21/2019 Patient Education: hydroxyzine HCl- [employer] C[employer]on [id number] [email or web address] Completed 05/21/2019 Appointment: Sapna Live WPtel: [phone] [facility] 05/19/19 1645---see note put in chart today (km) CANCELED 05/19/2019 Appointment: Shelleygustabo Sapna JefryAmarjit WPtel: [phone] [facility] CANCELED 05/05/2019 Appointment: Calos Sapna JefryAmarjit WPtel: [address] [facility] UA 04/21/2019 Visit Diagnosis Plan: Diverticulitis of [...] : K59.09 02/24/2019 Appointment: Lashell Joe [address] Hospital Follow Up 02/24/2019 Visit Diagnosis Plan: Diverticulitis of large intestine without perforation or abscess with bleeding Discussion: Continue flagyl and cipro. A dvance diet to bland. BRAT diet advised. Avoid nuts, seeds, popcorn, roughage. RTC if abdominal pain worsens or does not improve. ICD-9 : 562.13 ICD-10 : K57.33 02/04/2019 Appointment: Nancy Mendiola [address] FOLLOW UP 02/04/2019 Visit Diagnosis Plan: [...] : R10.32 01/29/2019 Appointment: Nancy Mendiola [address] ACUTE ILLNESS 01/29/2019 Care Plan: CT [...] : K21.9 12/19/2018 Appointment: Sapna Live WPtel: [address] [place] [address] ACUTE ILLNESS 12/19/2018 Visit Diagnosis Plan: Gastro-esophageal reflux disease without esophagitis Discussion: Continue protonix at 40mg daily Hold mobic No NSAIDS Hold all MVs If persists then will need EGD ICD-9 : 530.81 ICD-10 : K21.9 11/11/2018 Appointment: Sapna Live WPtel: [address] [place] [address] FOLLOW UP 11/11/2018 Visit Diagnosis Plan: Encounter for gene [facility] adult medical examination without abnormal findings [...] ICD-10 : K91.89 10/09/2018 Appointment: Lashell Joe [address] [place], [place] [phone] Annual Well Visit 10/09/2018 Patient Education: gabapentin- [employer] C[employer]on [id number] Completed 10/09/2018 Patient Education: Kegel Exercises Comple catalina 10/09/2018 Patient Education: High Blood Pressure Co mpleted 10/09/2018 Visit Diagnosis Plan: Pain in right knee Discussion: c orticosteroid injection administered as described above. patient tolerated well. instructed to rtc in 3- 4 months if needed for additional injection. ICD-9 : 719.46 ICD-10 : M25.561 02/19/2018 Appointment: Lashell Joe [address] OFFICE SURGERY 02/19/2018 Patient Education: Patient [...] ICD-10 : M25.561 02/12/2018 Appointment: Lashell Joe [address] ACUTE ILLNESS 02/12/2018 Patient Education: Patient Medication Summary Completed 02/12/2018 Care Plan: X-RAY EXAM OF KNEE 1 [place] 2 [place] : [address]-8 Pending 02/12/2018 Visit Diagnosis Plan: Essential (primary) [...] ICD-10 : R07.89 12/03/2017 Appointment: Lashell Joe [place] [id number] ESTABLISHED PATIENT 12/03/2017 Patient Education: Patient Medication Summary Completed 12/03/2017 Visit Diagnosis Plan: Essential (primary) hypertension Discussion: Increase quinapril to 40mg daily BP check in 1month ICD-9 : 401.9 ICD-10 : I10 09/11/2017 Appointment: Sapna Live WPtel: [address] [place] [address] [place] FOLLOW UP 09/11/2017 Patient Education: Patient Medication Summary Completed 09/11/2017 Appointment: Sapna Live WPtel: [address] [place] [address] US RESCHEDULED 08/22/2017 Visit Diagnosis Plan: Essential (primary) hypertension Discussion: Increase quinapril to 20mg daily Follow Up: 1 months ICD-9 : 401.9 ICD-10 : I10 08/13/2017 Visit Diagnosis Plan: Encounter for [facility] medical examination without abnormal findings Discussion: Update fasting lab ICD-9 : V70.9 ICD-10 : Z00.00 08/13/2017 Visit Diagnosis Plan: Left lower quadrant pain Discuss ion: Update colonoscopy ICD-9 : 789.04 ICD-10 : R10.32 08/13/2017 Appointment: Sapna Live WPtel: [address] [place] [address] Annual Well Visit 08/13/2017 Patient Education: Patient Medication Summary Completed 08/13/2017 Appointment: Sapna Live WPtel: [address] [place] [address] THROAT SWAB 02/13/2017 Patient Education: Patient Medication Summary Completed 02/13/2017 Appointment: Sapna Live WPtel: [address] [place], [place] [phone] [place] BP CHECK 11/17/2016 Patient Education: Patient Medication Summary Completed 11/17/2016 Visit Plan: Due for colonoscopy in 2018 Had shingles shot and flu shot Change quinapril hct to plain quinapril and see if muscles twitches improve Fwup with Dr. Braga Lab discussed Discussed diet/exercise at length Check CT abdomen Recheck 3mos 07/19/2016 Appointment: Sapna Live WPtel: [address] [place], [place] [address] [place] 07/18 confirmed`sl PHYSICAL 07/19/2016 Patient Education: [...] convenience 06/09/2016 Appointment: Sobia Monreal WPtel: [address] [place], [place] [phone] ACUTE ILLNESS 06/09/2016 Patient Education: Patient Medication Summary Completed 06/09/2016 Referral: Demario Braga WPtel: [address] [place], [place] [phone] Referral Initiated 11/12/2015 Visit Plan: Continue indwelling catheter until follow-up with Dr. Braga Continue Bactrim and Cipro Pyridium TID for Bladder spasms 11/08/2015 Appointment: Chelsie Teixeira WPtel: [address] [place], [place] [phone] ER Follow UP 11/08/2015 Patient Education: Patient Medication Summary Completed 11/08/2015 Referral: Abdiel Tucker WPtel: [phone] [facility] Referral Initiated 06/21/2015 Visit Plan: Prednisone 20mg daily for 1w [place] See surgery of cyst removal 06/14/2015 Appointment: Sapna Live WPtel: [address] [place], [place] [phone] 06/11 vm cn 06/14 vm cn FOLLOW UP 2014 Patient Education: Patient Medication Summary Completed 06/14/2015 Visit Plan: Warm moist compresses to Lef t shoulder lesion and apply topical Mupirocin twice daily Complete Cephalexin x 7 days as directed Resume Culturelle daily 05/18/2015 Appointment: Chelsie Teixeira WPtel: [address] [place], [place] [phone] ACUTE ILLNESS 05/18/2015 Patient Education: Patient Medication Summary Completed 05/18/2015 Visit Plan: Check fasting lab Use pain m eds prn with miralax on the day that takes pain meds 02/22/2015 Appointment: Sapna Live WPtel: [address] [place], [place] [phone] 02/19 cn 02/19 appt confirmed-lb ACUTE ILLNESS 5 Patient Education: Patient Medication Summary Completed 02/22/2015 Visit Plan: Increase neurontin to 300mg q HS Continue flexeril and tramadol Call in 1mo on how higher dose of gabapentin 12/02/2014 Appointment: Sapna Live WPtel: [address] [place], [place] [phone] FOLLOW UP 12/02/2014 Patient Education: Patient Medication Summary Completed 12/02/2014 Referral: Eric Angelo [facility]el[id number] [place] Referral Appointment Confirmed 09/15/2014 Visit Plan: Proceed with pain doctor for possible injection vs nerve block Trial of lidoderm patch Cryotherapy to lesions as above 08/18/2014 Appointment: Sapna Live WPtel: [address] [place], [place] [phone] ACUTE ILLNESS 08/18/2014 Patient Education: Patient Medication Summary Completed 08/18/2014 Patient Education: Patient Medication Summary Completed 08/13/2014 Visit Plan: Continue current meds Obtain most recent lab results Check thoracic spine x-rays Needs updated CT scan of adrenal tumor 07/08/2014 Appointment: Sapna Live WPtel: [address] [place], [place] [phone] 07/07 vm NEW PATIENT 07/08/2014 Patient Education: Patient Medication Summary Completed 07/08/2014 Patient Education: Patient Medication Summary Completed 07/08/2014 Referral: Ronald Suhail Thibodeaux WPtel: [phone] [id number] [place] Referral Completed Referral: Toby Bettencourt WPtel: [address] [place] [address] [address] [id number] [place] Referral Completed Referral: Rosairo Monahan WPtel: [phone] [facility] [address] [place] Referral Appointment Requested [...]
--- OUTSIDE RECORDS SUMMARY | 2020-02-05 07:51 | XMS REPORT | CCD ---
Author Author Jai Live D.O. 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 Name Role Phone Sapna Live D.O., PP Unavailable CCM Unavailable Summary Purpose Interface Exchange Insurance Providers Payer name Policy type / Coverage type Covered green party ID Effective Begin Date Effective End Date GPA Commercial Insurance [id number] 2019 Unknown Family history Mother Diagnosis Age At Onset Cancer Unknown Father Diagnosis Age At Onset Congestive heart failure Unknown Coronary Artery Disease(CAD) Unknown Social History Social History Element Codes Description Effective Dates Tobacco history SNOMED CT: 7153664 Former smoker 10/09/2018 Marital status Unknown 07/08/2014 Number of children Unknown 1 07/08/2014 Employment Unknown Currently employed [employer] 07/08/[address]: 657212971 Never drinks alcohol 2013 Has the patient [...] Problems Condition Codes Effective Dates Condition Status Infected sebaceous cyst ICD-9: 706.2 ICD-10: L72.3 [...] Fill Instructions tramadol 50 mg tablet RxNorm: 860347 1 Tablet(s) Oral t hree times a day as needed for pain along with two tylenol 12/03/2019 No Stop Date Active doxycycline hyclate 100 mg capsule RxNorm: 5657731 1 Cap lee(s) Oral two times a day 11/03/2019 11/02/2019 Inactive doxycycline hyclate 100 mg capsule RxNorm: 9709618 1 Cap lee(s) Oral two times a day 11/03/2019 11/10/2019 Inactive cyclobenzaprine 10 mg tablet RxNorm: 233673 1 Tablet(s) Oral th ree times a day 10/27/2019 No Stop Date Active tramadol 50 mg tablet RxNorm: 396872 1 Tablet(s) Oral t hree times a day as needed for pain along with two tylenol 10/27/2019 10/26/2019 Inactive tramadol 50 mg tablet RxNorm: 720673 1 Tablet(s) Oral t hree times a day as needed for pain along with two tylenol 10/27/2019 10/27/2019 Inactive Bactrim DS 800 mg-160 mg tablet RxNorm: 321223 1 Tablet(s) Oral two times a day 10/27/2019 11/03/2019 Inactive Bactrim DS 800 mg-160 mg tablet RxNorm: 305646 1 Tablet(s) Oral two times a day 10/27/2019 10/26/2019 Inactive tramadol 50 mg tablet RxNorm: 607137 1 Tablet(s) Oral t hree times a day as needed for pain along with two tylenol 09/29/2019 10/26/2019 Inactive quinapril 40 mg tablet RxNorm: 050024 1 Tablet(s) Oral QD 09/18/2019 03/15/2020 Active Patient requests 90 days supply tramadol 50 mg tablet RxNorm: 472124 1 Tablet(s) Oral t hree times a day as needed for pain along with two tylenol 08/28/2019 08/28/2019 Inactive tramadol 50 mg tablet RxNorm: 736103 1 Tablet(s) PO TID as needed for pain along with two tylenol 08/25/2019 08/27/2019 Inactive pantoprazole 40 mg tablet,delayed release RxNorm: 435380 1 Tabl et(s) Oral QD 08/13/2019 No Stop Date Active Vitamin D3 1,000 unit capsule RxNorm: 120099 1 Capsule(s) Oral QD 1 10/13/2018 No Stop Date Active tamsulosin 0.4 mg capsule RxNorm: 097840 1 Capsule(s) Oral QPM 07/26 No Stop Date Active Protonix 40 mg tablet,delayed release RxNorm: 457461 TA KE 1 TABLET BY MOUTH TWICE A DAY 08/04/2019 08/12/2019 Inactive Flagyl 500 mg tablet RxNorm: 338005 1 Tablet(s) Oral three time s a day 07/03/2019 07/13/2019 Inactive fluconazole 100 mg tablet RxNorm: 902023 1 Tablet(s) Oral QD 201807/10/2019 Inactive Bactrim DS 800 mg-160 mg tablet RxNorm: 459898 1 Tablet(s) Oral two times a day 07/03/2019 07/13/2019 Inactive nystatin 100,000 unit/gram topical cream RxNorm: 507166 Application Topical two times a day 07/03/2019 08/12/2019 Inactive gabapentin 600 mg tablet RxNorm: 768677 Tablet(s) TAKE 1 TABLET BY MOUTH EVERY NIGHT AT BEDTIME 06/25/2019 08/12/2019 Inactive - First Attempt Ref: [id number] quinapril 40 mg tablet RxNorm: 015523 1 Tablet(s) Oral QD 06/23/2019 09/17/2019 Inactive Patient requests 90 days supply tramadol 50 mg tablet RxNorm: 089515 1 Tablet(s) PO TID as needed for pain along with two tylenol 05/23/2019 08/24/2019 Inactive hydroxyzine HCl 25 mg tablet RxNorm: 848756 1 Tablet(s) PO TID as needed 05/21/2019 08/12/2019 Inactive Elimite 5 % topical cream RxNorm: 793572 1 Application TOP QHS apply head to toe and was off in morning 05/19/2019 07/02/2019 Inactive Protonix 40 mg tablet,delayed release RxNorm: 477003 1 Tablet(s ) PO BID 05/05/2019 08/02/2019 Inactive - First Attempt Ref: [id number] gabapentin 600 mg tablet RxNorm: 939846 Tablet(s) TAKE 1 TABLET BY MOUTH EVERY NIGHT AT BEDTIME 04/25/2019 06/24/2019 Inactive - First Attempt Ref: [id number] tramadol 50 mg tablet RxNorm: 289142 1 Tablet(s) PO TID as needed for pain along with two tylenol 04/21/2019 05/22/2019 Inactive quinapril 40 mg tablet RxNorm: 552585 1 Tablet(s) PO QD 04/01/2019 Inactive Patient requests 90 days supply fenofibrate micronized 134 mg capsule RxNorm: 223560 1 Capsule(s) PO QD Due for updated fasting labs 03/31/2019 08/12/2019 Inactive dicyclomine 10 mg capsule RxNorm: 711319 1 Capsule(s) PO TID as needed 02/24/2019 05/20/2019 Inactive Flagyl 500 mg tablet RxNorm: 539850 1 Tablet(s) PO Q8H 02/24/201908/2019 Inactive ciprofloxacin 500 mg tablet RxNorm: 701575 1 Tablet(s) PO BID 02/2403/09/2019 Inactive Flagyl 500 mg tablet RxNorm: 609925 1 Tablet(s) PO Q6H 01/30/2019 Inactive ciprofloxacin 500 mg tablet RxNorm: 736241 1 Tablet(s) PO BID 01/3001/29/2019 Inactive Flagyl 500 mg tablet RxNorm: 582494 1 Tablet(s) PO Q6H 01/30/201904/2019 Inactive ciprofloxacin 500 mg tablet RxNorm: 605489 1 Tablet(s) PO BID 01/3002/05/2019 Inactive gabapentin 600 mg tablet RxNorm: 898220 TAKE 1 TABLET B Y MOUTH EVERY NIGHT AT BEDTIME 01/27/2019 04/24/2019 Inactive - First Attempt Ref: [id number] tramadol 50 mg tablet RxNorm: 317336 1 Tablet(s) PO TID as needed for pain along with two tylenol 01/08/2019 04/20/2019 Inactive fenofibrate micronized 134 mg capsule RxNorm: 799119 1 Capsule(s) PO QD Due for updated fasting labs 01/02/2019 03/30/2019 Inactive quinapril 40 mg tablet RxNorm: 112196 1 Tablet(s) PO QD 01/01/2019 Inactive Patient requests 90 days supply Protonix 40 mg tablet,delayed release RxNorm: 320002 TA KE 1 TABLET BY MOUTH TWICE A DAY 01/01/2019 03/31/2019 Inactive - First Attempt Ref: [id number] Protonix 40 mg tablet,delayed release RxNorm: 508159 TA KE 1 TABLET BY MOUTH TWICE A DAY 12/25/2018 12/31/2018 Inactive - First Attempt Ref: [id number] gabapentin 600 mg tablet RxNorm: 518113 TAKE 1 TABLET B Y MOUTH EVERY NIGHT AT BEDTIME 12/02/2018 01/26/2019 Inactive - First Attempt Ref: [id number] Protonix 40 mg tablet,delayed release RxNorm: 485285 1 Tablet(s ) PO BID 11/11/2018 12/24/2018 Inactive Protonix 40 mg tablet,delayed release RxNorm: 749901 1 Tablet(s ) PO BID 10/09/2018 11/10/2018 Inactive gabapentin 600 mg tablet RxNorm: 921203 1 Tablet(s) PO QHS 10/09/19 19 12/01/2018 Inactive quinapril 40 mg tablet RxNorm: 632521 1 Tablet(s) PO QD 1 TABLE T(S) PO QD 08/08/2018 08/07/2018 Inactive Patient requests 9 0 days supply quinapril 40 mg tablet RxNorm: 460547 1 Tablet(s) PO QD 08/08/2018 Inactive Patient requests 90 days supply meloxicam 15 mg tablet RxNorm: 902658 1 Tablet(s) PO QD 08/08/2018 Inactive gabapentin 300 mg capsule RxNorm: 187227 1 CAPSULE(S) P O QHS DUE FOR WELLNESS VISIT 08/07/2018 10/08/2018 Inactive due for followup meloxicam 15 mg tablet RxNorm: 605778 Tablet(s) 1 TABLET(S) PO QD 1 10/07/2017 08/07/2018 Inactive fenofibrate micronized 134 mg capsule RxNorm: 830538 1 Capsule(s) PO QD Needs updated fasting labs!!!!!! 07/08/2018 07/07/2018 Inactive fenofibrate micronized 134 mg capsule RxNorm: 591122 1 Capsule( s) PO QD 07/08/2018 01/01/2019 Inactive fenofibrate micronized 134 mg capsule RxNorm: 739607 1 Capsule(s) PO QD Needs updated fasting labs!!!!!! 06/21/2018 07/08/2018 Inactive Medrol (Daniel) 4 mg tablets in a dose pack RxNorm: 885460 Tablet(s) PO As Directed 05/06/2018 05/05/2018 Inactive Medrol (Daniel) 4 mg tablets in a dose pack RxNorm: 419848 Tablet(s) PO As Directed 05/06/2018 08/07/2018 Inactive quinapril 40 mg tablet RxNorm: 945429 1 TABLET(S) PO QD 05/02/2018 Inactive Patient requests 90 days supply fenofibrate micronized 134 mg capsule RxNorm: 825131 1 Capsule(s) PO QD Needs updated fasting labs 04/29/2018 05/28/2018 Inactive Move Free Joint [facility] 750 mg-100 mg-1.65 mg-108 mg tablet R xNorm: 1 Tablet(s) PO QD 02/12/2018 03/13/2018 Inactive fenofibrate micronized 134 mg capsule RxNorm: 475935 Ca psule(s) 1 CAPSULE(S) PO QD 01/29/2018 06/21/2018 Inactive quinapril 40 mg tablet RxNorm: 766873 1 TABLET(S) PO QD 11/26/2017 Inactive Patient requests 90 days supply fenofibrate micronized 134 mg capsule RxNorm: 688408 1 CAPSULE( S) PO QD 11/06/2017 01/29/2018 Inactive gabapentin 300 mg capsule RxNorm: 928041 1 CAPSULE(S) P O QHS DUE FOR WELLNESS VISIT 10/24/2017 07/20/2018 Inactive due for followup meloxicam 15 mg tablet RxNorm: 751586 1 TABLET(S) PO QD 10/24/2017 Inactive quinapril 40 mg tablet RxNorm: 863331 1 Tablet(s) PO QD 10/24/2017 Inactive fenofibrate micronized 134 mg capsule RxNorm: 539605 1 Capsule( s) PO QD 08/22/2017 11/05/2017 Inactive fenofibrate micronized 134 mg capsule RxNorm: 980721 1 Capsule( s) PO QD 08/22/2017 08/21/2017 Inactive quinapril 20 mg tablet RxNorm: 706409 1 Tablet(s) PO QD 08/13/2017 Inactive gabapentin 300 mg capsule RxNorm: 644557 1 Capsule(s) P O QHS Due for wellness visit 08/06/2017 10/23/2017 Inactive due for followup gabapentin 300 mg capsule RxNorm: 293735 1 Capsule(s) P O QHS Due for wellness visit 08/02/2017 08/05/2017 Inactive due for followup meloxicam 15 mg tablet RxNorm: 865835 1 Tablet(s) PO QD 08/01/2017 Inactive gabapentin 300 mg capsule RxNorm: 967858 1 Capsule(s) P O QHS Due for wellness visit 08/01/2017 08/01/2017 Inactive due for followup gabapentin 300 mg capsule RxNorm: 289913 1 Capsule(s) P O QHS Due for wellness visit 08/01/2017 08/02/2017 Inactive gabapentin 300 mg capsule RxNorm: 315991 1 Capsule(s) PO QHS 201605/12/2017 Inactive quinapril 10 mg tablet RxNorm: 619890 1 Tablet(s) PO QD replace s quinapril hct 02/12/2017 08/12/2017 Inactive meloxicam 15 mg tablet RxNorm: 764057 1 Tablet(s) PO QD 02/05/2017 Inactive quinapril 10 mg tablet RxNorm: 845221 1 Tablet(s) PO QD replace s quinapril hct 11/16/2016 02/12/2017 Inactive gabapentin 300 mg capsule RxNorm: 877611 1 Capsule(s) PO QHS 201602/12/2017 Inactive quinapril 10 mg tablet RxNorm: 142559 1 Tablet(s) PO QD replace s quinapril hct 10/16/2016 11/15/2016 Inactive gabapentin 300 mg capsule RxNorm: 330074 1 Capsule(s) PO QHS 201511/15/2016 Inactive quinapril 10 mg tablet RxNorm: 699174 1 Tablet(s) PO QD replace s quinapril hct 07/19/2016 10/15/2016 Inactive meloxicam 15 mg tablet RxNorm: 910532 1 Tablet(s) PO QD 07/10/2016 Inactive meloxicam 15 mg tablet RxNorm: 108171 TAKE ONE TABLET BY MOUTH ULKE Y 07/10/2016 07/09/2016 Inactive meloxicam 15 mg tablet RxNorm: 868650 1 Tablet(s) PO QD 07/06/2016 Inactive meloxicam 15 mg tablet RxNorm: 553218 1 Tablet(s) PO QD 06/09/2016 Inactive Multivitamin & Mineral Formula tablet RxNorm: 1 Tablet(s) PO Q D 06/02/2016 07/01/2016 Inactive tamsulosin 0.4 mg capsule RxNorm: 368651 1 Capsule(s) PO QHS 201507/01/2016 Inactive Move Free [facility] 750 mg-100 mg-1.65 mg-108 mg tablet R xNorm: 1 Tablet(s) PO QD 06/02/2016 07/01/2016 Inactive gabapentin 300 mg capsule RxNorm: 572830 1 Capsule(s) PO QHS 201508/27/2016 Inactive gabapentin 300 mg capsule RxNorm: 791907 Capsule(s) ALFONZO E ONE CAPSULE BY MOUTH AT BEDTIME 02/28/2016 05/27/2016 Inactive quinapril 10 mg-hydrochlorothiazide 12.5 mg tablet RxNorm: 3 61205 Tablet(s) TAKE ONE TABLET BY MOUTH EVERY MORNING 01/14/2016 07/18/2016 Inactive gabapentin 300 mg capsule RxNorm: 185409 TAKE ONE CAPSULE BY [facility] AT BEDTIME 12/28/2015 02/27/2016 Inactive Urecholine 25 mg tablet RxNorm: 317140 1 Tablet(s) PO TID 11/09/2015 07/18/2016 Inactive phenazopyridine 100 mg tablet RxNorm: 1408235 1 Tablet(s ) PO TID as needed for bladder spasms. 11/08/2015 11/08/2015 Inactive quinapril 10 mg-hydrochlorothiazide 12.5 mg tablet RxNorm: 3 26626 TAKE ONE TABLET BY MOUTH EVERY MORNING 10/15/2015 01/13/2016 Inactive gabapentin 300 mg capsule RxNorm: 429359 1 Tablet(s) PO QD TAKE ONE CAPSULE BY MOUTH EVERY NIGHT AT BEDTIME 09/23/2015 12/21/2015 Inactive quinapril 10 mg-hydrochlorothiazide 12.5 mg tablet RxNorm: 3 48682 Tablet(s) TAKE ONE TABLET BY MOUTH EVERY MORNING 07/14/2015 10/14/2015 Inactive gabapentin 300 mg capsule RxNorm: 237294 1 Tablet(s) PO QD TAKE ONE CAPSULE BY MOUTH EVERY NIGHT AT BEDTIME 06/25/2015 09/23/2015 Inactive prednisone 20 mg tablet RxNorm: 789264 1 Tablet(s) PO QD 06/14/2015 0 06/20/2015 Inactive cephalexin 500 mg capsule RxNorm: 490424 1 Capsule(s) PO BID 201405/27/2015 Inactive mupirocin 2 % topical ointment RxNorm: 171036 TOP BID 05/18/2015 0 06/13/2015 Inactive quinapril 10 mg-hydrochlorothiazide 12.5 mg tablet RxNorm: 3 74162 Tablet(s) TAKE ONE TABLET BY MOUTH EVERY MORNING 04/06/2015 07/14/2015 Inactive gabapentin 300 mg capsule RxNorm: 779431 1 Capsule(s) PO QHS 201404/01/2015 Inactive [SAVINGS FOR NON-COVERED [facility] -- BIN:068701, PCN: ASPROD1, Group: XXXXX, ID# [id number], Questions: . THIS IS NOT INSURANCE.] gabapentin 300 mg capsule RxNorm: 916193 1 Capsule(s) PO QHS 201406/25/2015 Inactive [SAVINGS FOR NON-COVERED [facility] -- BIN:860423, PCN: ASPROD1, Group: XXXXX, ID# [id number], Questions: . THIS IS NOT INSURANCE.] quinapril 10 mg-hydrochlorothiazide 12.5 mg tablet RxNorm: 3 71490 TAKE ONE TABLET BY MOUTH EVERY MORNING 12/11/2014 04/05/2015 Inactive gabapentin 300 mg capsule RxNorm: 101115 1 Capsule(s) PO QHS 201404/02/2015 Inactive [SAVINGS FOR NON-COVERED [facility] GS -- BIN:096596, PCN: ASPROD1, Group: XXXXX, ID# [id number], Questions: . THIS IS NOT INSURANCE.] cyclobenzaprine 10 mg tablet RxNorm: 493591 1 Tablet(s) PO TID as needed for muscle spasm for muscle spasm 12/02/2014 02/21/2015 Inactive [S AVINGS FOR NON- COVERED DRUGS -- BIN:479653, PCN: ASPROD1, Group: XXXXX, ID# [id number], Questions: . THIS IS NOT INSURANCE.] gabapentin 100 mg capsule RxNorm: 444086 1 Capsule(s) PO QHS 201412/01/2014 Inactive [SAVINGS FOR NON-COVERED [facility] GS -- BIN:722548, PCN: ASPROD1, Group: XXXXX, ID# [id number], Questions: . THIS IS NOT INSURANCE.] ibuprofen 800 mg tablet RxNorm: 779789 1 Tablet(s) PO T ID as needed low back pain 11/11/2014 11/23/2014 Inactive [SAVINGS FOR NON -COVERED DRUGS -- BIN:210901, PCN: ASPROD1, Group: XXXXX, ID# [id number], Questions: . THIS IS NOT INSURANCE.] ibuprofen 800 mg tablet RxNorm: 778169 1 Tablet(s) PO T ID as needed low back pain 11/09/2014 11/10/2014 Inactive [SAVINGS FOR NON -COVERED DRUGS -- BIN:456668, PCN: ASPROD1, Group: XXXXX, ID# [id number], Questions: . THIS IS NOT INSURANCE.] Zorvolex 35 mg capsule RxNorm: 3015370 1 Tablet(s) PO TID 08/27/2014 10/01/2014 Inactive [SAVINGS FOR UNINSURED PATIENTS -- BIN:0 49456, PCN: ASPROD1, Group: AME08, ID# [id number], Process claim through [employer], for questions: . THIS IS NOT INSURANCE.] quinapril 10 mg-hydrochlorothiazide 12.5 mg tablet RxNorm: 3 56098 1 Tablet(s) PO QAM 08/27/2014 11/24/2014 Inactive Lidoderm 5 % (700 mg/patch) adhesive patch RxNorm: 3804011 Application TOP for 12hours then off for pain 08/18/2014 02/21/2015 Inactive [SAVIN GS FOR UNINSURED PATIENTS -- BIN:252817, PCN: ASPROD1, Group: AME08, ID# [id number], Process claim through [employer], for questions: . THIS IS NOT INSURANCE.] Zorvolex 35 mg capsule RxNorm: 3965064 1 Tablet(s) PO TID 08/13/2014 08/12/2014 Inactive Zorvolex 35 mg capsule RxNorm: 2725858 1 Tablet(s) PO TID 08/13/2014 08/24/2014 Inactive [SAVINGS FOR UNINSURED PATIENTS -- BIN:0 08044, PCN: ASPROD1, Group: AME08, ID# [id number], Process claim through [employer], for questions: . THIS IS NOT INSURANCE.] Aspirin Child 81 mg chewable tablet RxNorm: 151016 1 Tablet(s) PO QD No Start Date Active ibuprofen 800 mg tablet RxNorm: 056563 1 Tablet(s) PO T ID as needed low back pain No Start Date 11/08/2014 Inactive cyclobenzaprine 10 mg tablet RxNorm: 599932 1 Tablet(s) PO TID No S tart Date 08/12/2017 Inactive garlic 1,000 mg capsule RxNorm: 899381 1 Capsule(s) PO QD No Start Date 04/22/2019 Inactive tramadol 50 mg tablet RxNorm: 641738 1 Tablet(s) PO Q4-6H as ne eded for pain No Start Date 02/21/2015 Inactive tramadol 50 mg tablet RxNorm: 966936 1 Tablet(s) PO TID as needed for pain along with two tylenol No Start Date 01/07/2019 Inactive krill oil oral RxNorm: 89860 oral No Start Date 11/11/2018 Inacti ve Vitamin D3 2,000 unit tablet RxNorm: 756448 1 Tablet(s) PO QD No St art Date 08/12/2019 Inactive gabapentin 100 mg tablet RxNorm: 109439 1 Tablet(s) PO QD No Start Date 11/10/2014 Inactive Zofran 4 mg tablet RxNorm: 808039 1 Tablet(s) PO Q6H as needed No S tart Date 08/12/2019 Inactive Elimite 5 % topical cream RxNorm: 764260 1 Application TOP QHS apply head to toe and was off in morning No Start Date 05/18/2019 Inactive gabapentin 100 mg capsule RxNorm: 246850 1 Capsule(s) PO QHS No Sta rt Date 11/10/2014 Inactive aspirin 325 mg tablet RxNorm: 703507 2 Tablet(s) PO QD No Start Date 08/17/2014 Inactive Fish Oil 1,000 mg capsule RxNorm: 1 Capsule(s) PO QD No Start Date 10/08/2018 Inactive quinapril 10 mg-hydrochlorothiazide 12.5 mg tablet RxNorm: 3 86075 1 Tablet(s) PO QAM No Start Date 08/26/2014 Inactive quinapril 40 mg tablet RxNorm: 468863 1 Tablet(s) PO QD No Start Da te 10/23/2017 Inactive Medrol (Daniel) 4 mg tablets in a dose pack RxNorm: 406096 Tablet(s) PO As Directed No Start Date 05/05/2018 Inactive Urecholine 25 mg tablet RxNorm: 518051 1 Tablet(s) PO TID No Start Date 11/08/2015 Inactive cyclobenzaprine 10 mg tablet RxNorm: 912332 1/2-1 Table t(s) PO TID as needed for muscle spasm No Start Date 12/01/2014 Inactive tamsulosin 0.4 mg capsule RxNorm: 894470 2 Capsule(s) PO QPM No Sta rt Date 08/12/2019 Inactive hydrocodone 5 mg-acetaminophen 325 mg tablet RxNorm: 618319 1 -2 Tablet(s) PO Q6H as needed No Start Date 05/20/2019 Inactive loratadine 10 mg tablet RxNorm: 340422 1 Tablet(s) PO QD No Start D ate 07/07/2014 Inactive Medication Administered No Medication Administered data Immunizations Vaccine Codes Date Status Influenza CVX: 141 07/21/2019 Results Observation Observation Code Item Item Code Result Date S ervice Location CULTURE, AEROBIC BACTERIA 04028 CULTURE, AEROBIC BACTERIA SEE NOTE 10/30/2019 [facility]Shy Becerra [id number] [place] [address] CULTURE, URINE, ROUTINE 395 CULTURE SEE NOTE 1 10/15/2018 [facility] [address] [address] CULTURE, URINE, ROUTINE 395 CULTURE, URINE, ROUTINE SEE NOTE 08/15/2019 [facility] [address] [address] CBC (H/H, RBC, INDICES, WBC, PLT) 67286 WHITE BLOOD CELL COU NT 7.9 Thousand/uL 08/14/2019 [facility] [place] [address] [place] [address] CBC (H/H, RBC, INDICES, WBC, PLT) 28663 RED BLOOD CELL COUNT 4.93 Million/uL 08/14/2019 [facility] Kohli [address] [address] CBC (H/H, RBC, INDICES, WBC, PLT) 36360 HEMOGLOBIN 15 .4 g/dL 08/14/2019 [facility] [address] [address] CBC (H/H, RBC, INDICES, WBC, PLT) 49706 HEMATOCRIT 45 .0 % 08/14/2019 Zay Kohli [address] [address] CBC (H/H, RBC, INDICES, WBC, PLT) 53879 MCV 91 .3 fL 08/14/2019 [facility] [employer] [address] [address] CBC (H/H, RBC, INDICES, WBC, PLT) 19795 MCH 31 .2 pg 08/14/[address] [facility] [address] CBC (H/H, RBC, INDICES, WBC, PLT) 40795 MCHC 34 .2 g/dL 08/14/[address] [facility] [address] CBC (H/H, RBC, INDICES, WBC, PLT) 12269 RDW 12 .7 % 08/14/[address] [facility] [address] CBC (H/H, RBC, INDICES, WBC, PLT) 59392 PLATELET COUNT 214 Thousand/uL 08/14/[address] [address] CBC (H/H, RBC, INDICES, WBC, PLT) 07003 MPV 11 .5 fL 08/14/[address] [address] COMPREHENSIVE METABOLIC PANEL 61583 Glucose 113 mg /dL 08/14/[address] [facility] [address] COMPREHENSIVE METABOLIC PANEL 12538 UREA NITROGEN (BUN) 16 mg/dL 08/14/[address] [facility] [address] COMPREHENSIVE METABOLIC PANEL 51234 CREATININE 0.86 m g/dL 08/14/[address] [facility] [address] COMPREHENSIVE METABOLIC PANEL 48838 eGFR NON-AFR. [place] 92 mL/min/1.73m2 08/14/[address] [facility] [address] COMPREHENSIVE METABOLIC PANEL 07665 eGFR 106 mL/min/1.73m2 08/14/[address] [facility] [address] COMPREHENSIVE METABOLIC PANEL 38301 BUN/CREATININE RATIO NOT APPLICABLE (calc) 08/14/[address] [facility] [address] COMPREHENSIVE METABOLIC PANEL 42037 SODIUM 141 mm ol/L 08/14/2019 [facility] [address] [address] COMPREHENSIVE METABOLIC PANEL 23525 POTASSIUM 4.1 mm ol/L 08/14/[address] [facility] [address] COMPREHENSIVE METABOLIC PANEL 79295 CHLORIDE 102 mm ol/L 08/14/[address] [facility] [address] COMPREHENSIVE METABOLIC PANEL 67858 CARBON DIOXIDE 28 mmol/L 08/14/[address] [facility] [address] COMPREHENSIVE METABOLIC PANEL 06276 CALCIUM 9.7 mg /dL 08/14/[address] [facility] [address] COMPREHENSIVE METABOLIC PANEL 24444 PROTEIN, TOTAL 6. 7 g/dL 08/14/[address] [facility] [address] COMPREHENSIVE METABOLIC PANEL 91890 ALBUMIN 4.3 g/ dL 08/14/[address] [facility] [address] COMPREHENSIVE METABOLIC PANEL 98623 GLOBULIN 2.4 g/ dL(calc) 08/14/[address] [facility] [address] COMPREHENSIVE METABOLIC PANEL 57529 ALBUMIN/GLOBULIN RATIO 1.8 (calc) 08/14/[address] [facility] [address] COMPREHENSIVE METABOLIC PANEL 05347 BILIRUBIN, TOTAL 1.0 mg/dL 08/14/[address] [facility] [address] COMPREHENSIVE METABOLIC PANEL 94656 ALKALINE PHOSPHATASE 56 U/L 08/14/[address] [facility] [address] COMPREHENSIVE METABOLIC PANEL 27903 AST 18 U/L 08/14/[address] [facility] [address] COMPREHENSIVE METABOLIC PANEL 11092 ALT 28 U/L 08/14/[address] [facility] [address] MAGNESIUM 68633 MAGNESIUM 2.0 mg/dL 06/06/[address] [facility] [address] COMPREHENSIVE METABOLIC PANEL 64954 Glucose 106 mg /dL 06/06/[address] [facility] [address] COMPREHENSIVE METABOLIC PANEL 59163 UREA NITROGEN (BUN) 22 mg/dL 06/06/[address] [address] COMPREHENSIVE METABOLIC PANEL 11273 CREATININE 1.29 m g/dL 06/06/2019 [facility] [address] [address] COMPREHENSIVE METABOLIC PANEL 68714 eGFR NON-AFR. [place] 58 mL/min/1.73m2 06/06/2019 [facility] [address] COMPREHENSIVE METABOLIC PANEL 45654 eGFR 67 mL/min/1.73m2 06/06/2019 [facility] [address] [address] COMPREHENSIVE METABOLIC PANEL 87091 BUN/CREATININE RATIO 17 (calc) 06/06/2019 [facility] [address] [address] COMPREHENSIVE METABOLIC PANEL 47056 SODIUM 138 mm ol/L 06/06/2019 [facility] [address] [address] COMPREHENSIVE METABOLIC PANEL 60259 POTASSIUM 4.2 mm ol/L 06/06/2019 [facility] [address] [address] COMPREHENSIVE METABOLIC PANEL 70603 CHLORIDE 101 mm ol/L 06/06/2019 [facility] [address] [address] COMPREHENSIVE METABOLIC PANEL 53304 CARBON DIOXIDE 29 mmol/L 06/06/2019 [facility] [address] [address] COMPREHENSIVE METABOLIC PANEL 89109 CALCIUM 9.6 mg /dL 06/06/2019 [facility] [address] [address] COMPREHENSIVE METABOLIC PANEL 31074 PROTEIN, TOTAL 6. 9 g/dL 06/06/2019 [facility] [address] [address] COMPREHENSIVE METABOLIC PANEL 18754 ALBUMIN 4.4 g/ dL 06/06/2019 [facility] [address] [address] COMPREHENSIVE METABOLIC PANEL 54692 GLOBULIN 2.5 g/ dL(calc) 06/06/2019 [facility] [address] [address] COMPREHENSIVE METABOLIC PANEL 69082 ALBUMIN/GLOBULIN RATIO 1.8 (calc) 06/06/2019 [facility] [address] [address] COMPREHENSIVE METABOLIC PANEL 87050 BILIRUBIN, TOTAL 0.7 mg/dL 06/06/2019 [facility] [address] [address] COMPREHENSIVE METABOLIC PANEL 00438 ALKALINE PHOSPHATASE 45 U/L 06/06/[address] [facility] [address] COMPREHENSIVE METABOLIC PANEL 69836 AST 21 U/L 06/06/[address] [facility] [address] [address] COMPREHENSIVE METABOLIC PANEL 07952 ALT 34 U/L 06/06/[address] [address] CULTURE, URINE, ROUTINE 395 CULTURE, URINE, ROUTINE SEE NOTE 04/23/[address] [address] CULTURE, URINE, ROUTINE 395 CULTURE SEE NOTE 0 04/23/[address] [facility] [address] EXTRA 1014 EXTRA TUBE RECEIVED 04/22 [facility] [address] [address] EXTRA 1014 SPECIMEN TYPE RECEIVED: LAV 0 04/22/2019 [facility] [address] [address] COMPREHENSIVE METABOLIC PANEL 93041 Glucose 94 mg/ dL 04/22/2019 [facility] [address] [address] COMPREHENSIVE METABOLIC PANEL 45988 UREA NITROGEN (BUN) 20 mg/dL 04/22/2019 [facility] [address] [address] COMPREHENSIVE METABOLIC PANEL 89905 CREATININE 1.30 m g/dL 04/22/2019 [facility] [address] [address] COMPREHENSIVE METABOLIC PANEL 03578 eGFR NON-AFR. [place]IZ[place] 58 mL/min/1.73m2 04/22/[address] [facility] [address] COMPREHENSIVE METABOLIC PANEL 79457 eGFR 67 mL/min/1.73m2 04/22/2019 [facility] [address] COMPREHENSIVE METABOLIC PANEL 06396 BUN/CREATININE RATIO 15 (calc) 04/22/[address] [facility] [address] COMPREHENSIVE METABOLIC PANEL 47168 SODIUM 139 mm ol/L 04/22/[address] [facility] [address] COMPREHENSIVE METABOLIC PANEL 98495 POTASSIUM 4.2 mm ol/L 04/22/[address] [facility] [address] COMPREHENSIVE METABOLIC PANEL 99388 CHLORIDE 104 mm ol/L 04/22/[address] [facility] [address] COMPREHENSIVE METABOLIC PANEL 66099 CARBON DIOXIDE 27 mmol/L 04/22/[address] [facility] [address] COMPREHENSIVE METABOLIC PANEL 56185 CALCIUM 9.9 mg /dL 04/22/[address] [facility] [address] COMPREHENSIVE METABOLIC PANEL 85006 PROTEIN, TOTAL 7. 1 g/dL 04/22/[address] [facility] [address] COMPREHENSIVE METABOLIC PANEL 67012 ALBUMIN 4.6 g/ dL 04/22/2019 [facility] [address] COMPREHENSIVE METABOLIC PANEL 13363 GLOBULIN 2.5 g/ dL(calc) 04/22/2019 [facility] [address] COMPREHENSIVE METABOLIC PANEL 13860 ALBUMIN/GLOBULIN RATIO 1.8 (calc) 04/22/[address] [facility] [address] COMPREHENSIVE METABOLIC PANEL 61893 BILIRUBIN, TOTAL 0.4 mg/dL 04/22/[address] [facility] [address] COMPREHENSIVE METABOLIC PANEL 51766 ALKALINE PHOSPHATASE 53 U/L 04/22/[address] [facility] [place] [address] COMPREHENSIVE METABOLIC PANEL 60807 AST 21 U/L 04/22/2019 [facility] [address] [place] [address] COMPREHENSIVE METABOLIC PANEL 18122 ALT 34 U/L 04/22/2019 [facility] [address] [place] [address] CULTURE, URINE, ROUTINE 395 CULTURE, URINE, ROUTINE SEE NOTE 01/31/2019 [facility] [address] [place] [address] Procedures Procedure Codes Date CULTURE, AEROBIC BACTERIA CPT-4: 61550 10/27/2019 URINALYSIS NONAUTO W/O SCOPE CPT-4: 05142 10/02/2019 URINE CULTURE/ COLONY COUNT CPT-4: 09848 10/02/2019 ROUTINE VENIPUNCTURE CPT-4: 72721 08/13/2019 URINALYSIS NONAUTO W/O SCOPE CPT-4: 58076 08/13/2019 CULTURE, URINE, ROUTINE CPT-4: 395 08/13/2019 COMPREHENSIVE METABOLIC PANEL CPT-4: 07679 08/13/2019 CBC (H/H, RBC, INDICES, WBC, PLT) CPT-4: 63527 2018 COMPREHENSIVE METABOLIC PANEL CPT-4: 84756 06/05/2019 MAGNESIUM CPT-4: 79921 06/05/2019 DEXAMETHASONE SODIUM PHOS CPT-4: J1100 05/21/2019 THER/PROPH/DIAG INJ SC/IM CPT-4: 43204 05/21/2019 TRIAMCINOLONE ACET INJ NOS CPT-4: J3301 05/21/2019 ROUTINE VENIPUNCTURE CPT-4: 41556 04/21/2019 COMPREHENSIVE METABOLIC PANEL CPT-4: 89359 04/21/2019 EXTRA CPT-4: 1014 04/21/2019 CULTURE, URINE, ROUTINE CPT-4: 395 04/21/2019 URINALYSIS NONAUTO W/O SCOPE CPT-4: 63585 04/21/2019 URINALYSIS NONAUTO W/O SCOPE CPT-4: 15383 01/29/2019 CULTURE, URINE, ROUTINE CPT-4: 395 01/29/2019 DRAIN/INJECT JOINT/BURSA CPT-4: 64930 02/19/2018 TRIAMCINOLONE ACET INJ NOS CPT-4: J3301 02/19/2018 DEXAMETHASONE SODIUM PHOS CPT-4: J1100 02/19/2018 THER/PROPH/DIAG INJ SC/IM CPT-4: 76277 02/12/2018 TRIAMCINOLONE ACET INJ NOS CPT-4: J3301 02/12/2018 DEXAMETHASONE SODIUM PHOS CPT-4: J1100 02/12/2018 CEFTRIAXONE SODIUM INJECTION CPT-4: J0696 12/03/2017 THER/PROPH/DIAG INJ SC/IM CPT-4: 17161 12/03/2017 THER/PROPH/DIAG INJ SC/IM CPT-4: 48101 12/03/2017 METHYLPREDNISOLONE INJECTION CPT-4: J2930 12/03/2017 URINALYSIS NONAUTO W/O SCOPE CPT-4: 67250 08/13/2017 STREP A ASSAY W/OPTIC CPT-4: 32740 02/13/2017 DESTRUCT PREMALG LESION (Cryosurgery) CPT-4: 88404 Vital Signs Date Vital 10/27/2019 Blood Pressure [...] 1: 128/78 Code: 8480-6 BMI: 36.0 Code: 47080-8 Heart Rate 1: 68 bpm Height: 5'7" [...] 1: 138/86 Code: 8480-6 BMI: 35.6 Code: 31392-4 Heart Rate 1: 68 bpm Height: 5'7" SpO2: 95% Temperature: 36.6 (C) / 97.8 (F) Weight: 227 lbs 12/03/2017 Blood Pressure 1: 134/84 Code: 8480-6 BMI: 34.3 Code: 48751-5 Heart Rate 1: 68 bpm Height: 5'7" Respiratory Rate: 20 bpm SpO2: 96% Tempera ture: 35.9 (C) / 96.6 (F) Weight: 219 lbs 09/11/2017 Blood Pressure 1: 140/86 Code: 8480-6 BMI: 34.9 Code: 36703-7 Heart Rate 1: 84 bpm Height: 5'7" Respiratory Rate: 20 bpm SpO2: 95% Tempera ture: 36.7 (C) / 98.1 (F) Weight: 223 lbs 08/13/2017 Blood Pressure 1: 142/94 Code: 8480-6 BMI: 34.5 Code: 84126-1 Heart Rate 1: 76 bpm Height: 5'7" Respiratory Rate: 20 bpm SpO2: 96% Tempera ture: 37.1 (C) / 98.8 (F) Weight: 220 lbs 11/17/2016 Blood Pressure 1: 118/78 Code: 8480-6 He art Rate 1: 64 bpm 07/19/2016 Blood Pressure 1: 112/58 Code: 8480-6 BMI: 31.6 Code: 48197-2 Heart Rate 1: 88 bpm Height: 5'7" Respiratory Rate: 22 bpm SpO2: 98% Tempera ture: 36.3 (C) / 97.4 (F) Weight: 202 lbs 06/09/2016 Blood Pressure 1: 138/84 Code: 8480-6 BMI: 32.1 Code: 27905-5 Heart Rate 1: 58 bpm Height: 5'7" Respiratory Rate: 20 bpm SpO2: 97% Tempera ture: 36.6 (C) / 97.8 (F) Weight: 205 lbs 11/08/2015 Blood Pressure 1: 142/80 Code: 8480-6 BMI: 32.4 Code: 66864-7 Heart Rate 1: 76 bpm Height: 5'7" Respiratory Rate: 20 bpm Temperature: 36 .6 (C) / 97.9 (F) Weight: 207 lbs 06/14/2015 Blood Pressure 1: 126/80 Code: 8480-6 Heart Rate 1: 84 bpm Respiratory Rate: 20 bpm Temperature: 36.8 (C) / 98.2 (F) Weight: 206 lbs 05/18/2015 Blood Pressure 1: 124/80 Code: 8480-6 BMI: 32.3 Code: 10957-7 Heart Rate 1: 68 bpm Height: 5'7" Respiratory Rate: 20 bpm Temperature: 36 .4 (C) / 97.6 (F) Weight: 206 lbs 02/22/2015 Blood Pressure 1: 126/78 Code: 8480-6 BMI: 32.1 Code: 38482-8 Heart Rate 1: 76 bpm Height: 5'7" Respiratory Rate: 20 bpm Temperature: 36 .6 (C) / 97.9 (F) Weight: 205 lbs 12/02/2014 Blood Pressure 1: 124/80 Code: 8480-6 BMI: 32.7 Code: 29846-8 Heart Rate 1: 70 bpm Height: 5'7" Respiratory Rate: 18 bpm Temperature: 36 .6 (C) / 97.9 (F) Weight: 209 lbs 08/18/2014 Blood Pressure 1: 132/94 Code: 8480-6 BMI: 34.5 Code: 63381-7 Heart Rate 1: 84 bpm Height: 5'6" Respiratory Rate: 20 bpm Temperature: 36 .6 (C) / 97.9 (F) Weight: 217 lbs 07/08/2014 Blood Pressure 1: 142/88 Code: 8480-6 BMI: 34.3 Code: 90791-3 Heart Rate 1: 72 bpm Height: 5'6" Respiratory Rate: 20 bpm Temperature: 36 .8 (C) / 98.2 (F) Weight: 216 lbs Functional Status No Functional Status data Reason For Visit Reason For Visit Effective Dates Notes cyst 10/27/2019 left shoulder blade follow up [...] 12/02/2014 skin lesion 08/18/2014 ~generic 07/08/2014 [facility] Encounters Encounter Performer Location Codes Date ([id number]) NO CHARGE Diagnosis: Infected sebaceous cyst[ICD10: L72.3] Sapna LIVE [facility] CPT-4: 15700 11/03/2019 ([id number]) OFFICE/OUTPATIENT VISIT EST Diagnosis: Disorder of the skin and subcutaneous tissue, unspecified[ICD10: L98.9] Diagnosis: Infected sebaceous cyst[ICD10: L72.3] Diagnosis: Local infection of the skin and subcutaneous tissue, unspecified[ICD10: L08.9] Lashell Heathanne [facility] CPT-4 : 14674 10/27/2019 ([id number]) OFFICE/OUTPATIENT VISIT EST Diagnosis: Suprapubic abdominal pain[ICD10: R10.2] Diagnosis: Aortic regurgitation[ICD10: I35.1] Sapna LIVE DO [facility] CPT-4: 05604 10/02/2019 ([id number]) OFFICE/OUTPATIENT VISIT EST Diagnosis: Chest pain[ICD10: R07.9] Lashell BETANCUR [facility] CPT-4: 85991 08/25/2019 ([id number]) OFFICE/OUTPATIENT VISIT EST Diagnosis: Thoracic back pain[ICD10: M54.6] Diagnosis: Disorder of kidney and ureter, unspecified[ICD10: N28.9] Diagnosis: Personal history of nicotine dependence[ICD10: Z87.891] 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561] Lashell LIVE DO [facility] CPT-4: 97425 05/21/2019 ([id number]) NURSE/OUTPATIENT VISIT EST Diagnosis: Edema, unspecified[ICD10: R60.9] Sapna LIVE DO [facility] CPT-4: 70126 04/21/2019 ([id number]) OFFICE/OUTPATIENT VISIT EST Diagnosis: Diverticulitis of large intestine without perforation or abscess without bleeding[ICD10: K57.32] Diagnosis: Snoring[ICD10: R06.83] Diagnosis: Other constipation[ICD10: K59.09] Lashell LIVE [employer] [facility] CPT-4: 94342 02/24/2019 ([id number]) OFFICE/OUTPATIENT VISIT EST Diagnosis: Diverticulitis of large intestine without perforation or abscess with bleeding[ICD10: K57.33] Nancy LIVE [employer] [facility] CPT-4: 99492 02/04/2019 ([id number]) OFFICE/OUTPATIENT VISIT EST Diagnosis: Left lower quadrant pain[ICD10: R10.32] Nancy LIVE [employer] [facility] CPT-4: 59575 01/29/2019 OFFICE/OUTPATIENT VISIT EST Diagnosis: Dermatitis, unspecified[ICD10: L30.9] Diagnosis: Gastro-esophageal reflux disease without esophagitis[ICD10: K21.9] Diagnosis: Palpitations[ICD10: R00.2] Sapna AU [employer] [facility] CPT-4: 66399 12/19/2018 ([id number]) OFFICE/OUTPATIENT VISIT EST Diagnosis: Gastro-esophageal reflux disease without esophagitis[ICD10: K21.9] Diagnosis: Dysphagia, pharyngoesophageal phase[ICD10: R13.14] Sapna LIVE [employer] [facility] CPT-4: 15775 11/11/2018 ([id number]) PREV VISIT EST AGE 40-64 Diagnosis: Encounter [...] disorders of digestive system[ICD10: K91.89] Lashell LIVE [employer] [facility] CPT-4: 99 396 10/09/2018 ([id number]) OFFICE/OUTPATIENT VISIT EST Diagnosis: Pain in right knee[ICD10: M25.561] Diagnosis: Pain in right hip[ICD10: M25.551] Lashell LIVE DO [facility] CPT-4: 13598 02/12/2018 OFFICE/OUTPATIENT VISIT EST Diagnosis: Essential (primary) hypertension[ICD10: I10] Diagnosis: Other chest pain[ICD10: R07.89] Lashell LIVE DO [facility] CPT-4: 27334 12/03/2017 ([id number]) OFFICE/OUTPATIENT VISIT EST Diagnosis: Essential (primary) hypertension[ICD10: I10] Sapna LIVE DO [facility] CPT-4: 91873 09/11/2017 ([id number]) PREV VISIT EST AGE 40-64 Diagnosis: Encounter for general adult medical examination without abnormal findings[ICD10: Z00.00] Diagnosis: Essential (primary) hypertension[ICD10: I10] Diagnosis: Left lower quadrant pain[ICD10: R10.32] Diagnosis: Left upper quadrant pain[ICD10: R10.12] Diagnosis: Other intervertebral disc degeneration, 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] Sapna BRUNSONLINE Vickie LIVE [employer] [facility] CPT-4: 11403 08/13/2017 ([id number]) OFFICE/OUTPATIENT VISIT EST Diagnosis: Acute pharyngitis, unspecified[ICD10: J02.9] Sapna [facility] CPT-4: 02197 02/13/2017 ([id number]) PREV VISIT EST AGE 40-64 Diagnosis: Encounter for general adult medical examination without abnormal findings[ICD10: Z00.00] Diagnosis: Essential (primary) hypertension[ICD10: I10] 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] Sapna [facility] CPT-4: 84138 07/19/2016 OFFICE/OUTPATIENT VISIT EST Diagnosis: Pain in thoracic spine[ICD10: M54.6] Diagnosis: Disorder of the skin and subcutaneous tissue, unspecified[ICD10: L98.9] Sobia Monreal SAPNA Vickie LIVE [employer] [facility] CPT-4: 36954 06/09/2016 OFFICE/OUTPATIENT VISIT EST Diagnosis: Retention of urine, unspecified[ICD10: R33.9] Diagnosis: Urinary tract infection, site not specified[ICD10: N39.0] Chelsie LIVE [facility] CPT-4: 55726 11/08/2015 ([id number]) OFFICE/OUTPATIENT VISIT EST Diagnosis: DERMATITIS NOS[ICD9: 692.9] Diagnosis: SEBACEOUS CYST[ICD9: 706.2] Sapna BOSCH [facility] CPT-4: 94715 06/14/2015 OFFICE/OUTPATIENT VISIT EST Diagnosis: LOCAL SKIN INFECTION[ICD9: 686.9] Diagnosis: FOLLICULITIS[ICD9: 704.8] Chelsie HASSAN [facility] CPT-4: 42870 05/18/2015 ([id number]) OFFICE/OUTPATIENT VISIT EST Diagnosis: Constipation[ICD9: 564.00] Sapna 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 CPT-4: 62118 12/02/2014 ([id number]) OFFICE/OUTPATIENT VISIT EST Diagnosis: Thoracic back pain[ICD9: 724.1] Diagnosis: ACTINIC KERATOSIS[ICD9: 702.0] [facility]: 12087 08/18/2014 OFFICE/OUTPATIENT VISIT NEW Diagnosis: HYPERTENSION[ICD9: 401.9] Diagnosis: Thoracic back pain[ICD9: 724.1] Diagnosis: GERD[ICD9: 530.81] Diagnosis: Adrenal tumor[ICD9: 239.7] Sapna Capps. CANDICE [facility] CPT-4: 72013 07/08/2014 ([id number]) OFFICE/OUTPATIENT VISIT NEW Diagnosis: HYPERTENSION[ICD9: 401.9] Diagnosis: GERD[ICD9: 530.81] Sapna LIVE DO [facility] CPT-4: 94468 07/08/2014 Plan of Care Planned Activity Notes Codes Status Date Visit Diagnosis Plan: Infected sebaceous cyst Discussi on: Sent out 1 week of doxycycline ICD-9 : 706.2 ICD-10 : L72.3 11/03/2019 Appointment: Sapna Live WPtel: [phone] [facility] WOUND CARE 11/03/2019 Visit Diagnosis Plan: Local [...] ICD-10 : L08.9 10/27/2019 Appointment: Lashell Joe [address] [place], [place] [address] ACUTE ILLNESS 10/27/2019 Patient Education: tramadol- [employer] Coupon [id number] [email or web address]/resources/getResource/[email or web address] Completed 10/27/2019 Visit Plan: Update Low Dose [...] I35.1 10/02/2019 Appointment: Sapna Live WPtel: [phone] [facility] FOLLOW UP 10/02/2019 Care Plan: Referral Order SNOMED-CT : [id number] Pending 10/02/2019 Visit Diagnosis Plan: Chest pain Discussion: will star t with cxray and rib xray. discussed that could be lung, rib, muscle but will start with cxray and patient may need echo. he verbalized understanding. ICD-9 : 786.50 ICD-10 : R07.9 08/25/2019 Appointment: Lashell Joe [address] [place], [place] [id number] ACUTE ILLNESS 08/25/2019 Visit Diagnosis Plan: Thoracic back pain Discussion: c hronic pain. will refer to dr. stallings at [facility] for evaluation and treatment ICD-9 : 724.1 [...] ct of lungs to be done at [facility]. ICD-9 : V15.82 ICD-10 : Z87.891 [...] ICD-10 : E27.8 08/13/2019 Appointment: Lashell Joe [address] [place], [place] [id number] FOLLOW UP 08/13/2019 Visit Diagnosis Plan: Sigmoid diverticulitis Discussio n: Bactrim/Flagyl [place] diet To ER this weekend if worsening ICD-9 : 562.11 ICD-10 : K57.32 07/03/2019 Visit Diagnosis Plan: Jock itch Discussion: Diflucan a nd topical nystatin ICD-9 : 110.3 ICD-10 : B35.6 07/03/2019 Visit Diagnosis Plan: Renal insufficiency Discussion: Labs discussed Continue off NSAIDS Hydrate Recheck Chemistry 3mos ICD-9 : 593.9 ICD-10 : N28.9 07/03/2019 Appointment: Sapna Live WPtel: [phone] [id number] FOLLOW UP 07/03/2019 Patient Education: fluconazole- [employer] C[employer]on [id number] Completed 07/03/2019 Patient Education: nystatin- [employer] Coupon [id number] Completed 07/03/2019 Visit Diagnosis Plan: Disorder of [...] ICD-10 : R25.2 06/05/2019 Appointment: Lashell Joe [address] [place] [address] NO SHOW - FORGIVEN 06/05/2019 Appointment: Lashell Joe [address] [place] [address] ACUTE ILLNESS 06/05/2019 Visit Diagnosis Plan: Pain [...] : L29.8 05/21/2019 Appointment: [facility] [facility] 05/21/2019 Patient Education: hydroxyzine HCl- [employer] Coupon [id number] [email or web address]/[email or web address]/resources/getResource/61/[email or web address]-b02v-[email or web address] Completed 05/21/2019 Appointment: Sapna Live WPtel: [address] [place] [address] 05/19/19 1645---see note put in chart today (km) CANCELED 05/19/2019 Appointment: Sapna Live WPtel: [address] [place] [address] CANCELED 05/05/2019 Appointment: Sapna Live WPtel: [address] [place] [address] UA 04/21/2019 Visit Diagnosis Plan: Diverticulitis of [...] : K59.09 02/24/2019 Appointment: Lashell Joe 504 [facility] Hospital Follow Up 02/24/2019 Visit Diagnosis Plan: Diverticulitis of large intestine without perforation or abscess with bleeding Discussion: Continue flagyl and cipro. A dvance diet to bland. BRAT diet advised. Avoid nuts, seeds, popcorn, roughage. RTC if abdominal pain worsens or does not improve. ICD-9 : 562.13 ICD-10 : K57.33 02/04/2019 Appointment: Nancy Mendiola [facility] FOLLOW UP 02/04/2019 Visit Diagnosis Plan: Left [...] ICD-10 : R10.32 01/29/2019 Appointment: Nancy Mendiola [facility] ACUTE ILLNESS 01/29/2019 Care Plan: CT PELVIS [...] : K21.9 12/19/2018 Appointment: Sapna Live WPtel: [phone] [facility] ACUTE ILLNESS 12/19/2018 Visit Diagnosis Plan: Gastro-esophageal reflux disease without esophagitis Discussion: Continue protonix at 40mg daily Hold mobic No NSAIDS Hold all MVs If persists then will need EGD ICD-9 : 530.81 ICD-10 : K21.9 11/11/2018 Appointment: Sapna Live WPtel: [phone] [facility] [id number] FOLLOW UP 11/11/2018 Visit Diagnosis Plan: Encounter for gene ral adult medical examination without abnormal findings Discussion: [...] ICD-10 : Z12.2 10/09/2018 Visit Diagnosis Plan: Other postprocedur al [...] ICD-10 : K91.89 10/09/2018 Visit Diagnosis Plan: Essential (primary) hypertension Discussion: stable. continue with current medications. ICD-9 : 401.9 ICD-10 : I10 10/09/2018 Appointment: Lashell Joe [address] [place], [place] [id number] Annual Well Visit 10/09/2018 Patient Education: gabapentin- [employer] Coupon [id number] Completed 10/09/2018 Patient Education: Kegel Exercises Comple catalina 10/09/2018 Patient Education: High Blood Pressure Co mpleted 10/09/2018 Visit Diagnosis Plan: Pain in right knee Discussion: c orticosteroid injection administered as described above. patient tolerated well. instructed to rtc in 3- 4 months if needed for additional injection. ICD-9 : 719.46 ICD-10 : M25.561 02/19/2018 Appointment: Lashell Joe [address] [place], [place] [address] OFFICE SURGERY 02/19/2018 Patient Education: Patient Medication Summary Completed 02/19/2018 Visit Diagnosis Plan: Pain in right knee Discussion: k enalog/dexa given in office. instructed patient to have xray of knee performed to rule out fracture. educated patient on RICE. patient reports he has a compression brace for knee. apply ice for pain and elevate. ok to continue with tylenol prn pain. ICD-9 : 719.46 ICD-10 : M25.561 02/12/2018 Visit Diagnosis Plan: Pain in right hip Discussion: si nce hip pain is improving and knee pain is not, will focus on knee at this time and instructed to call office if hip becomes worse. ICD-9 : 719.45 ICD-10 : M25.551 02/12/2018 Appointment: Lashell Joe [address] [place], [place] [id number] ACUTE ILLNESS 02/12/2018 Patient Education: Patient Medication Summary Completed 02/12/2018 Care Plan: X-RAY EXAM OF KNEE 1 [place] 2 [place] : [address]-0 Pending 02/12/2018 Visit Diagnosis Plan: Essential (primary) hypertension Discussion: continue with current medications. continue to check bp at home and call office with worsening bp or symptoms. ICD-9 : 401.9 ICD-10 : I10 12/03/2017 Visit Diagnosis Plan: Other chest pain Discussion: ekg ordered to rule out cardiac concerns, will notify patient of any changes. ICD-9 : 786.59 ICD-10 : R07.89 12/03/2017 Appointment: Lashlel Joe [address] ESTABLISHED PATIENT 12/03/2017 Patient Education: Patient Medication Summary Completed 12/03/2017 Visit Diagnosis Plan: Essential (primary) hypertension Discussion: Increase quinapril to 40mg daily BP check in 1month ICD-9 : 401.9 ICD-10 : I10 09/11/2017 Appointment: Sapna Live WPtel: [address] [place] [address] FOLLOW UP 09/11/2017 Patient Education: Patient Medication Summary Completed 09/11/2017 Appointment: Sapna Live WPtel: [address] [place] [address] RESCHEDULED 08/22/2017 Visit Diagnosis Plan: Essential (primary) hypertension Discussion: Increase quinapril to 20mg daily Follow Up: 1 months ICD-9 : 401.9 ICD-10 : I10 08/13/2017 Visit Diagnosis Plan: Encounter for [facility] adult medical examination without abnormal findings Discussion: Update fasting lab ICD-9 : V70.9 ICD-10 : Z00.00 08/13/2017 Visit Diagnosis Plan: Left lower quadrant pain Discuss ion: Update colonoscopy ICD-9 : 789.04 ICD-10 : R10.32 08/13/2017 Appointment: Sapna Live WPtel: [address] [place] [address] Annual Well Visit 08/13/2017 Patient Education: Patient Medication Summary Completed 08/13/2017 Appointment: Sapna Live WPtel: [address] [place] [address] THROAT SWAB 02/13/2017 Patient Education: Patient Medication Summary Completed 02/13/2017 Appointment: [facility]el[phone] [facility] [facility] 11/17/2016 Patient Education: Patient Medication Summary Completed 11/17/2016 Visit Plan: Due for colonoscopy in 2018 Had shingles shot and flu shot Change quinapril hct to plain quinapril and see if muscles twitches improve Fwup with Dr. Braga Lab discussed Discussed diet/exercise at length Check CT abdomen Recheck 3mos 07/19/2016 Appointment: Sapna Live WPtel: [phone] [facility] 07/18 confirmed`sl PHYSICAL 07/19/2016 Patient Education: Patient [...] earliest convenience 06/09/2016 Appointment: Sobia Monreal WPtel: [facility][note 3]6 [facility] ACUTE ILLNESS 06/09/2016 Patient Education: Patient Medication Summary Completed 06/09/2016 Referral: Demario Braga WPtel: [phone] [facility] [place] Referral Initiated 11/12/2015 Visit Plan: Continue indwelling catheter until follow-up with Dr. Braga Continue Bactrim and Cipro Pyridium TID for Bladder spasms 11/08/2015 Appointment: Chelsie Teixeira WPtel: [phone] [facility] ER Follow UP 11/08/2015 Patient Education: Patient Medication Summary Completed 11/08/2015 Referral: Abdiel Tucker WPtel: [phone] [facility] Referral Initiated 06/21/2015 Visit Plan: Prednisone 20mg daily for 1w beaver See surgery of cyst removal 06/14/2015 Appointment: Sapna Live WPtel: [address] [place], [place] [id number] 06/11 cn 06/14 cn FOLLOW UP 2014 Patient Education: Patient Medication Summary Completed 06/14/2015 Visit Plan: Warm moist compresses to Lef t shoulder lesion and apply topical Mupirocin twice daily Complete Cephalexin x 7 days as directed Resume Culturelle daily 05/18/2015 Appointment: Chelsie Teixeira WPtel: [address] [place], [place] [id number] ACUTE ILLNESS 05/18/2015 Patient Education: Patient Medication Summary Completed 05/18/2015 Visit Plan: Check fasting lab Use pain m eds prn with miralax on the day that takes pain meds 02/22/2015 Appointment: Sapna Live WPtel: [address] [place], [place] [phone] 02/19 cn 02/19 appt confirmed-lb ACUTE ILLNESS Patient Education: Patient Medication Summary Completed 02/22/2015 Visit Plan: Increase neurontin to 300mg q HS Continue flexeril and tramadol Call in 1mo on how higher dose of gabapentin 12/02/2014 Appointment: Sapna Live WPtel: [address] [place], [place] [phone] FOLLOW UP 12/02/2014 Patient Education: Patient Medication Summary Completed 12/02/2014 Referral: Eric Angelo WPtel: [address] [facility] [place] Referral Appointment Confirmed 09/15/2014 Visit Plan: Proceed with pain doctor for possible injection vs nerve block Trial of lidoderm patch Cryotherapy to lesions as above 08/18/2014 [facility]ment[facility] Live [facility] [phone] [id number] [facility] 08/18/2014 Patient Education: Patient Medication Summary Completed 08/18/2014 Patient Education: Patient Medication Summary Completed 08/13/2014 Visit Plan: Continue current meds Obtain most recent lab results Check thoracic spine x-rays Needs updated CT scan of adrenal tumor 07/08/2014 Appointment: Sapna Live WPtel: [phone] [facility] 07/07 vm NEW PATIENT 07/08/2014 Patient Education: Patient Medication Summary Completed 07/08/2014 Patient Education: Patient Medication Summary Completed 07/08/2014 Referral: Suhail Cardenas WPtel: [phone] [id number] [place] Referral Completed Referral: Toby Bettencourt WPtel: [address] [place] [address] [address] [place] [address] [place] Referral Completed Referral: Rosario Monahan WPtel: [phone] [facility] [address] [place] Referral Appointment Requested [...]
--- OUTSIDE RECORDS SUMMARY | 2020-02-05 07:52 | XMS REPORT | CCD ---
Author Author Jai Live D.O. Organization [facility] Address [address] [place] [address] Phone Care Team Providers Care Maintenance Engineer Name Role Phone Sapna Live D.O., PP Unavailable CCM Unavailable Summary Purpose Interface Exchange Insurance Providers Payer name Policy type / Coverage type Covered constitution party ID Effective Begin Date Effective End Date GPA Commercial Insurance [id number] 2019 Unknown Family history Mother Diagnosis Age At Onset Cancer Unknown Father Diagnosis Age At Onset Congestive heart failure Unknown Coronary Artery Disease(CAD) Unknown Social History Social History Element Codes Description Effective Dates Tobacco history SNOMED CT: 7104266 Former smoker 10/09/2018 Marital status Unknown 07/08/2014 Number of children Unknown 1 07/08/2014 Employment Unknown Currently employed [employer] 07/08/[address]: 300561805 Never drinks alcohol 2013 Has the patient [...] Start Date Stop Date Status Fill Instructions doxycycline hyclate 100 mg capsule RxNorm: 7765472 1 Cap lee(s) Oral two times a day 11/03/2019 11/02/2019 Inactive doxycycline hyclate 100 mg capsule RxNorm: 8023629 1 Cap lee(s) Oral two times a day 11/03/2019 11/10/2019 Inactive tramadol 50 mg tablet RxNorm: 917891 1 Tablet(s) Oral t hree times a day as needed for pain along with two tylenol 10/27/2019 10/27/2019 Inactive cyclobenzaprine 10 mg tablet RxNorm: 745273 1 Tablet(s) Oral th ree times a day 10/27/2019 No Stop Date Active tramadol 50 mg tablet RxNorm: 017725 1 Tablet(s) Oral t hree times a day as needed for pain along with two tylenol 10/27/2019 10/26/2019 Inactive Bactrim DS 800 mg-160 mg tablet RxNorm: 697731 1 Tablet(s) Oral two times a day 10/27/2019 11/03/2019 Inactive Bactrim DS 800 mg-160 mg tablet RxNorm: 309694 1 Tablet(s) Oral two times a day 10/27/2019 10/26/2019 Inactive tramadol 50 mg tablet RxNorm: 091244 1 Tablet(s) Oral t hree times a day as needed for pain along with two tylenol 09/29/2019 10/26/2019 Inactive quinapril 40 mg tablet RxNorm: 156267 1 Tablet(s) Oral QD 09/18/2019 03/15/2020 Active Patient requests 90 days supply tramadol 50 mg tablet RxNorm: 088985 1 Tablet(s) Oral t hree times a day as needed for pain along with two tylenol 08/28/2019 08/28/2019 Inactive tramadol 50 mg tablet RxNorm: 824295 1 Tablet(s) PO TID as needed for pain along with two tylenol 08/25/2019 08/27/2019 Inactive pantoprazole 40 mg tablet,delayed release RxNorm: 935814 1 Tabl et(s) Oral QD 08/13/2019 No Stop Date Active Vitamin D3 1,000 unit capsule RxNorm: 660109 1 Capsule(s) Oral QD 1 10/13/2018 No Stop Date Active tamsulosin 0.4 mg capsule RxNorm: 164479 1 Capsule(s) Oral QPM 07/26 No Stop Date Active Protonix 40 mg tablet,delayed release RxNorm: 850098 TA KE 1 TABLET BY MOUTH TWICE A DAY 08/04/2019 08/12/2019 Inactive Flagyl 500 mg tablet RxNorm: 123029 1 Tablet(s) Oral three time s a day 07/03/2019 07/13/2019 Inactive fluconazole 100 mg tablet RxNorm: 261009 1 Tablet(s) Oral QD 201807/10/2019 Inactive Bactrim DS 800 mg-160 mg tablet RxNorm: 698286 1 Tablet(s) Oral two times a day 07/03/2019 07/13/2019 Inactive nystatin 100,000 unit/gram topical cream RxNorm: 448080 Application Topical two times a day 07/03/2019 08/12/2019 Inactive gabapentin 600 mg tablet RxNorm: 418097 Tablet(s) TAKE 1 TABLET BY MOUTH EVERY NIGHT AT BEDTIME 06/25/2019 08/12/2019 Inactive - First Attempt Ref: [id number] quinapril 40 mg tablet RxNorm: 071258 1 Tablet(s) Oral QD 06/23/2019 09/17/2019 Inactive Patient requests 90 days supply tramadol 50 mg tablet RxNorm: 159341 1 Tablet(s) PO TID as needed for pain along with two tylenol 05/23/2019 08/24/2019 Inactive hydroxyzine HCl 25 mg tablet RxNorm: 600138 1 Tablet(s) PO TID as needed 05/21/2019 08/12/2019 Inactive Elimite 5 % topical cream RxNorm: 395341 1 Application TOP QHS apply head to toe and was off in morning 05/19/2019 07/02/2019 Inactive Protonix 40 mg tablet,delayed release RxNorm: 803022 1 Tablet(s ) PO BID 05/05/2019 08/02/2019 Inactive - First Attempt Ref: [id number] gabapentin 600 mg tablet RxNorm: 668400 Tablet(s) TAKE 1 TABLET BY MOUTH EVERY NIGHT AT BEDTIME 04/25/2019 06/24/2019 Inactive - First Attempt Ref: [id number] tramadol 50 mg tablet RxNorm: 449198 1 Tablet(s) PO TID as needed for pain along with two tylenol 04/21/2019 05/22/2019 Inactive quinapril 40 mg tablet RxNorm: 527946 1 Tablet(s) PO QD 04/01/2019 Inactive Patient requests 90 days supply fenofibrate micronized 134 mg capsule RxNorm: 598883 1 Capsule(s) PO QD Due for updated fasting labs 03/31/2019 08/12/2019 Inactive dicyclomine 10 mg capsule RxNorm: 898358 1 Capsule(s) PO TID as needed 02/24/2019 05/20/2019 Inactive Flagyl 500 mg tablet RxNorm: 411464 1 Tablet(s) PO Q8H 02/24/201908/2019 Inactive ciprofloxacin 500 mg tablet RxNorm: 036799 1 Tablet(s) PO BID 02/2403/09/2019 Inactive Flagyl 500 mg tablet RxNorm: 518200 1 Tablet(s) PO Q6H 01/30/2019 Inactive ciprofloxacin 500 mg tablet RxNorm: 879175 1 Tablet(s) PO BID 01/3001/29/2019 Inactive Flagyl 500 mg tablet RxNorm: 966458 1 Tablet(s) PO Q6H 01/30/201904/2019 Inactive ciprofloxacin 500 mg tablet RxNorm: 356668 1 Tablet(s) PO BID 01/3002/05/2019 Inactive gabapentin 600 mg tablet RxNorm: 606452 TAKE 1 TABLET B Y MOUTH EVERY NIGHT AT BEDTIME 01/27/2019 04/24/2019 Inactive - First Attempt Ref: [id number] tramadol 50 mg tablet RxNorm: 324042 1 Tablet(s) PO TID as needed for pain along with two tylenol 01/08/2019 04/20/2019 Inactive fenofibrate micronized 134 mg capsule RxNorm: 322052 1 Capsule(s) PO QD Due for updated fasting labs 01/02/2019 03/30/2019 Inactive quinapril 40 mg tablet RxNorm: 824709 1 Tablet(s) PO QD 01/01/2019 Inactive Patient requests 90 days supply Protonix 40 mg tablet,delayed release RxNorm: 928323 TA KE 1 TABLET BY MOUTH TWICE A DAY 01/01/2019 03/31/2019 Inactive - First Attempt Ref: [id number] Protonix 40 mg tablet,delayed release RxNorm: 818320 TA KE 1 TABLET BY MOUTH TWICE A DAY 12/25/2018 12/31/2018 Inactive - First Attempt Ref: [id number] gabapentin 600 mg tablet RxNorm: 616553 TAKE 1 TABLET B Y MOUTH EVERY NIGHT AT BEDTIME 12/02/2018 01/26/2019 Inactive - First Attempt Ref: [id number] Protonix 40 mg tablet,delayed release RxNorm: 656010 1 Tablet(s ) PO BID 11/11/2018 12/24/2018 Inactive Protonix 40 mg tablet,delayed release RxNorm: 580468 1 Tablet(s ) PO BID 10/09/2018 11/10/2018 Inactive gabapentin 600 mg tablet RxNorm: 935082 1 Tablet(s) PO QHS 10/09/1912/01/2018 Inactive quinapril 40 mg tablet RxNorm: 141494 1 Tablet(s) PO QD 1 TABLE T(S) PO QD 08/08/2018 08/07/2018 Inactive Patient requests 9 0 days supply quinapril 40 mg tablet RxNorm: 958860 1 Tablet(s) PO QD 08/08/2018 Inactive Patient requests 90 days supply meloxicam 15 mg tablet RxNorm: 493203 1 Tablet(s) PO QD 08/08/2018 Inactive gabapentin 300 mg capsule RxNorm: 449787 1 CAPSULE(S) P O QHS DUE FOR WELLNESS VISIT 08/07/2018 10/08/2018 Inactive due for followup meloxicam 15 mg tablet RxNorm: 121857 Tablet(s) 1 TABLET(S) PO QD 1 10/07/2017 08/07/2018 Inactive fenofibrate micronized 134 mg capsule RxNorm: 329920 1 Capsule(s) PO QD Needs updated fasting labs!!!!!! 07/08/2018 07/07/2018 Inactive fenofibrate micronized 134 mg capsule RxNorm: 072480 1 Capsule( s) PO QD 07/08/2018 01/01/2019 Inactive fenofibrate micronized 134 mg capsule RxNorm: 772398 1 Capsule(s) PO QD Needs updated fasting labs!!!!!! 06/21/2018 07/08/2018 Inactive Medrol (Daniel) 4 mg tablets in a dose pack RxNorm: 093725 Tablet(s) PO As Directed 05/06/2018 05/05/2018 Inactive Medrol (Daniel) 4 mg tablets in a dose pack RxNorm: 685266 Tablet(s) PO As Directed 05/06/2018 08/07/2018 Inactive quinapril 40 mg tablet RxNorm: 713521 1 TABLET(S) PO QD 05/02/2018 Inactive Patient requests 90 days supply fenofibrate micronized 134 mg capsule RxNorm: 438963 1 Capsule(s) PO QD Needs updated fasting labs 04/29/2018 05/28/2018 Inactive Move Free [facility] 750 mg-100 mg-1.65 mg-108 mg tablet R xNorm: 1 Tablet(s) PO QD 02/12/2018 03/13/2018 Inactive fenofibrate micronized 134 mg capsule RxNorm: 430757 Ca psule(s) 1 CAPSULE(S) PO QD 01/29/2018 06/21/2018 Inactive quinapril 40 mg tablet RxNorm: 167318 1 TABLET(S) PO QD 11/26/2017 Inactive Patient requests 90 days supply fenofibrate micronized 134 mg capsule RxNorm: 125420 1 CAPSULE( S) PO QD 11/06/2017 01/29/2018 Inactive gabapentin 300 mg capsule RxNorm: 741656 1 CAPSULE(S) P O QHS DUE FOR WELLNESS VISIT 10/24/2017 07/20/2018 Inactive due for followup meloxicam 15 mg tablet RxNorm: 781255 1 TABLET(S) PO QD 10/24/2017 Inactive quinapril 40 mg tablet RxNorm: 607801 1 Tablet(s) PO QD 10/24/2017 Inactive fenofibrate micronized 134 mg capsule RxNorm: 309507 1 Capsule( s) PO QD 08/22/2017 11/05/2017 Inactive fenofibrate micronized 134 mg capsule RxNorm: 691554 1 Capsule( s) PO QD 08/22/2017 08/21/2017 Inactive quinapril 20 mg tablet RxNorm: 918619 1 Tablet(s) PO QD 08/13/2017 Inactive gabapentin 300 mg capsule RxNorm: 463163 1 Capsule(s) P O QHS Due for wellness visit 08/06/2017 10/23/2017 Inactive due for followup gabapentin 300 mg capsule RxNorm: 683216 1 Capsule(s) P O QHS Due for wellness visit 08/02/2017 08/05/2017 Inactive due for followup meloxicam 15 mg tablet RxNorm: 001315 1 Tablet(s) PO QD 08/01/2017 Inactive gabapentin 300 mg capsule RxNorm: 354105 1 Capsule(s) P O QHS Due for wellness visit 08/01/2017 08/01/2017 Inactive due for followup gabapentin 300 mg capsule RxNorm: 264887 1 Capsule(s) P O QHS Due for wellness visit 08/01/2017 08/02/2017 Inactive gabapentin 300 mg capsule RxNorm: 238427 1 Capsule(s) PO QHS 201605/12/2017 Inactive quinapril 10 mg tablet RxNorm: 592924 1 Tablet(s) PO QD replace s quinapril hct 02/12/2017 08/12/2017 Inactive meloxicam 15 mg tablet RxNorm: 725921 1 Tablet(s) PO QD 02/05/2017 Inactive quinapril 10 mg tablet RxNorm: 801501 1 Tablet(s) PO QD replace s quinapril hct 11/16/2016 02/12/2017 Inactive gabapentin 300 mg capsule RxNorm: 655845 1 Capsule(s) PO QHS 201602/12/2017 Inactive quinapril 10 mg tablet RxNorm: 507302 1 Tablet(s) PO QD replace s quinapril hct 10/16/2016 11/15/2016 Inactive gabapentin 300 mg capsule RxNorm: 928564 1 Capsule(s) PO QHS 201511/15/2016 Inactive quinapril 10 mg tablet RxNorm: 888968 1 Tablet(s) PO QD replace s quinapril hct 07/19/2016 10/15/2016 Inactive meloxicam 15 mg tablet RxNorm: 845452 1 Tablet(s) PO QD 07/10/2016 Inactive meloxicam 15 mg tablet RxNorm: 026681 TAKE ONE TABLET BY MOUTH LUKE Y 07/10/2016 07/09/2016 Inactive meloxicam 15 mg tablet RxNorm: 056876 1 Tablet(s) PO QD 07/06/2016 Inactive meloxicam 15 mg tablet RxNorm: 099680 1 Tablet(s) PO QD 06/09/2016 Inactive Multivitamin & Mineral Formula tablet RxNorm: 1 Tablet(s) PO Q D 06/02/2016 07/01/2016 Inactive tamsulosin 0.4 mg capsule RxNorm: 942103 1 Capsule(s) PO QHS 201507/01/2016 Inactive Move [facility] Joint Health 750 mg-100 mg-1.65 mg-108 mg tablet R xNorm: 1 Tablet(s) PO QD 06/02/2016 07/01/2016 Inactive gabapentin 300 mg capsule RxNorm: 887740 1 Capsule(s) PO QHS 201508/27/2016 Inactive gabapentin 300 mg capsule RxNorm: 361284 Capsule(s) ALFONZO E ONE CAPSULE BY MOUTH AT BEDTIME 02/28/2016 05/27/2016 Inactive quinapril 10 mg-hydrochlorothiazide 12.5 mg tablet RxNorm: 3 96571 Tablet(s) TAKE ONE TABLET BY MOUTH EVERY MORNING 01/14/2016 07/18/2016 Inactive gabapentin 300 mg capsule RxNorm: 349180 TAKE ONE CAPSULE BY [facility] AT BEDTIME 12/28/2015 02/27/2016 Inactive Urecholine 25 mg tablet RxNorm: 917506 1 Tablet(s) PO TID 11/09/2015 07/18/2016 Inactive phenazopyridine 100 mg tablet RxNorm: 1383760 1 Tablet(s ) PO TID as needed for bladder spasms. 11/08/2015 11/08/2015 Inactive quinapril 10 mg-hydrochlorothiazide 12.5 mg tablet RxNorm: 3 45415 TAKE ONE TABLET BY MOUTH EVERY MORNING 10/15/2015 01/13/2016 Inactive gabapentin 300 mg capsule RxNorm: 945813 1 Tablet(s) PO QD TAKE ONE CAPSULE BY MOUTH EVERY NIGHT AT BEDTIME 09/23/2015 12/21/2015 Inactive quinapril 10 mg-hydrochlorothiazide 12.5 mg tablet RxNorm: 3 67643 Tablet(s) TAKE ONE TABLET BY MOUTH EVERY MORNING 07/14/2015 10/14/2015 Inactive gabapentin 300 mg capsule RxNorm: 877331 1 Tablet(s) PO QD TAKE ONE CAPSULE BY MOUTH EVERY NIGHT AT BEDTIME 06/25/2015 09/23/2015 Inactive prednisone 20 mg tablet RxNorm: 662480 1 Tablet(s) PO QD 06/14/2015 0 06/20/2015 Inactive cephalexin 500 mg capsule RxNorm: 530632 1 Capsule(s) PO BID 201405/27/2015 Inactive mupirocin 2 % topical ointment RxNorm: 991238 TOP BID 05/18/2015 0 06/13/2015 Inactive quinapril 10 mg-hydrochlorothiazide 12.5 mg tablet RxNorm: 3 99821 Tablet(s) TAKE ONE TABLET BY MOUTH EVERY MORNING 04/06/2015 07/14/2015 Inactive gabapentin 300 mg capsule RxNorm: 121604 1 Capsule(s) PO QHS 201404/01/2015 Inactive [SAVINGS FOR NON-COVERED LILIANA GS -- BIN:688719, PCN: ASPROD1, Group: XXXXX, ID# [id number], Questions: . THIS IS NOT INSURANCE.] gabapentin 300 mg capsule RxNorm: 371637 1 Capsule(s) PO QHS 201406/25/2015 Inactive [SAVINGS FOR NON-COVERED LILIANA GS -- BIN:940226, PCN: ASPROD1, Group: XXXXX, ID# [id number], Questions: . THIS IS NOT INSURANCE.] quinapril 10 mg-hydrochlorothiazide 12.5 mg tablet RxNorm: 3 94096 TAKE ONE TABLET BY MOUTH EVERY MORNING 12/11/2014 04/05/2015 Inactive gabapentin 300 mg capsule RxNorm: 572724 1 Capsule(s) PO QHS 201404/02/2015 Inactive [SAVINGS FOR NON-COVERED LILIANA GS -- BIN:490675, PCN: ASPROD1, Group: XXXXX, ID# [id number], Questions: . THIS IS NOT INSURANCE.] cyclobenzaprine 10 mg tablet RxNorm: 012673 1 Tablet(s) PO TID as needed for muscle spasm for muscle spasm 12/02/2014 02/21/2015 Inactive [S AVINGS FOR NON- COVERED DRUGS -- BIN:599387, PCN: ASPROD1, Group: XXXXX, ID# [id number], Questions: . THIS IS NOT INSURANCE.] gabapentin 100 mg capsule RxNorm: 406722 1 Capsule(s) PO QHS 201412/01/2014 Inactive [SAVINGS FOR NON-COVERED LILIANA GS -- BIN:375321, PCN: ASPROD1, Group: XXXXX, ID# [id number], Questions: . THIS IS NOT INSURANCE.] ibuprofen 800 mg tablet RxNorm: 402898 1 Tablet(s) PO T ID as needed low back pain 11/11/2014 11/23/2014 Inactive [SAVINGS FOR NON -COVERED DRUGS -- BIN:854392, PCN: ASPROD1, Group: XXXXX, ID# [id number], Questions: . THIS IS NOT INSURANCE.] ibuprofen 800 mg tablet RxNorm: 346997 1 Tablet(s) PO T ID as needed low back pain 11/09/2014 11/10/2014 Inactive [SAVINGS FOR NON -COVERED DRUGS -- BIN:290556, PCN: ASPROD1, Group: XXXXX, ID# [id number], Questions: . THIS IS NOT INSURANCE.] Zorvolex 35 mg capsule RxNorm: 8877949 1 Tablet(s) PO TID 08/27/2014 10/01/2014 Inactive [SAVINGS FOR UNINSURED PATIENTS -- BIN:0 62723, PCN: ASPROD1, Group: [id number], ID# [id number], Process claim through MedImpact, for questions: . THIS IS NOT INSURANCE.] quinapril 10 mg-hydrochlorothiazide 12.5 mg tablet RxNorm: 3 47547 1 Tablet(s) PO QAM 08/27/2014 11/24/2014 Inactive Lidoderm 5 % (700 mg/patch) adhesive patch RxNorm: 7387291 Application TOP for 12hours then off for pain 08/18/2014 02/21/2015 Inactive [SAVIN GS FOR UNINSURED PATIENTS -- BIN:643913, PCN: ASPROD1, Group: AME08, ID# [id number], Process claim through DriveHQ, for questions: . THIS IS NOT INSURANCE.] Zorvolex 35 mg capsule RxNorm: 8996798 1 Tablet(s) PO TID 08/13/2014 08/12/2014 Inactive Zorvolex 35 mg capsule RxNorm: 4398935 1 Tablet(s) PO TID 08/13/2014 08/24/2014 Inactive [SAVINGS FOR UNINSURED PATIENTS -- BIN:0 09802, PCN: ASPROD1, Group: [id number], ID# [id number], Process claim through MedIPlananaact, for questions: . THIS IS NOT INSURANCE.] Aspirin Child 81 mg chewable tablet RxNorm: 171967 1 Tablet(s) PO QD No Start Date Active ibuprofen 800 mg tablet RxNorm: 905581 1 Tablet(s) PO T ID as needed low back pain No Start Date 11/08/2014 Inactive cyclobenzaprine 10 mg tablet RxNorm: 951698 1 Tablet(s) PO TID No S tart Date 08/12/2017 Inactive garlic 1,000 mg capsule RxNorm: 167888 1 Capsule(s) PO QD No Start Date 04/22/2019 Inactive tramadol 50 mg tablet RxNorm: 140823 1 Tablet(s) PO Q4-6H as ne eded for pain No Start Date 02/21/2015 Inactive tramadol 50 mg tablet RxNorm: 080458 1 Tablet(s) PO TID as needed for pain along with two tylenol No Start Date 01/07/2019 Inactive krill oil oral RxNorm: 40428 oral No Start Date 11/11/2018 Inacti ve Vitamin D3 2,000 unit tablet RxNorm: 429984 1 Tablet(s) PO QD No St art Date 08/12/2019 Inactive gabapentin 100 mg tablet RxNorm: 874254 1 Tablet(s) PO QD No Start Date 11/10/2014 Inactive Zofran 4 mg tablet RxNorm: 630512 1 Tablet(s) PO Q6H as needed No S tart Date 08/12/2019 Inactive Elimite 5 % topical cream RxNorm: 586329 1 Application TOP QHS apply head to toe and was off in morning No Start Date 05/18/2019 Inactive gabapentin 100 mg capsule RxNorm: 568216 1 Capsule(s) PO QHS No Sta rt Date 11/10/2014 Inactive aspirin 325 mg tablet RxNorm: 549905 2 Tablet(s) PO QD No Start Date 08/17/2014 Inactive Fish Oil 1,000 mg capsule RxNorm: 1 Capsule(s) PO QD No Start Date 10/08/2018 Inactive quinapril 10 mg-hydrochlorothiazide 12.5 mg tablet RxNorm: 3 20843 1 Tablet(s) PO QAM No Start Date 08/26/2014 Inactive quinapril 40 mg tablet RxNorm: 892387 1 Tablet(s) PO QD No Start Da te 10/23/2017 Inactive Medrol (Daniel) 4 mg tablets in a dose pack RxNorm: 672945 Tablet(s) PO As Directed No Start Date 05/05/2018 Inactive Urecholine 25 mg tablet RxNorm: 181083 1 Tablet(s) PO TID No Start Date 11/08/2015 Inactive cyclobenzaprine 10 mg tablet RxNorm: 739108 1/2-1 Table t(s) PO TID as needed for muscle spasm No Start Date 12/01/2014 Inactive tamsulosin 0.4 mg capsule RxNorm: 948399 2 Capsule(s) PO QPM No Sta rt Date 08/12/2019 Inactive hydrocodone 5 mg-acetaminophen 325 mg tablet RxNorm: 086894 1 -2 Tablet(s) PO Q6H as needed No Start Date 05/20/2019 Inactive loratadine 10 mg tablet RxNorm: 364548 1 Tablet(s) PO QD No Start D ate 07/07/2014 Inactive Medication Administered No Medication Administered data Immunizations Vaccine Codes Date Status Influenza CVX: 141 07/21/2019 Results Observation Observation Code Item Item Code Result Date S ervice Location CULTURE, AEROBIC BACTERIA 60539 CULTURE, AEROBIC BACTERIA SEE NOTE 10/30/2019 [facility] [id number] [place] [id number] CULTURE, URINE, ROUTINE 395 CULTURE SEE NOTE 1 10/15/[address] [address] CULTURE, URINE, ROUTINE 395 CULTURE, URINE, ROUTINE SEE NOTE [facility] [address] [address] CBC (H/H, RBC, INDICES, WBC, PLT) 43385 WHITE BLOOD CELL COU NT 7.9 Thousand/uL 08/14/2019 [facility] [address] [address] CBC (H/H, RBC, INDICES, WBC, PLT) 58565 RED BLOOD CELL COUNT 4.93 Million/uL 08/14/2019 [facility] [address] [address] CBC (H/H, RBC, INDICES, WBC, PLT) 17955 HEMOGLOBIN 15 .4 g/dL 08/14/2019 [facility] [address] [address] CBC (H/H, RBC, INDICES, WBC, PLT) 54113 HEMATOCRIT 45 .0 % 08/14/2019 [facility] [address] [address] CBC (H/H, RBC, INDICES, WBC, PLT) 33930 MCV 91 .3 fL 08/14/2019 [facility] [address] [address] CBC (H/H, RBC, INDICES, WBC, PLT) 24266 MCH 31 .2 pg 08/14/2019 [facility] [employer] [facility] [address] CBC (H/H, RBC, INDICES, WBC, PLT) 05631 MCHC 34 .2 g/dL 08/14/[address] [facility] [address] CBC (H/H, RBC, INDICES, WBC, PLT) 82384 RDW 12 .7 % 08/14/2019 [facility] [address] CBC (H/H, RBC, INDICES, WBC, PLT) 51356 PLATELET COUNT 214 Thousand/uL 08/14/[address] [facility] [address] CBC (H/H, RBC, INDICES, WBC, PLT) 63022 MPV 11 .5 fL 08/14/[address] [address] COMPREHENSIVE METABOLIC PANEL 71955 Glucose 113 mg /dL 08/14/[address] [facility] [address] COMPREHENSIVE METABOLIC PANEL 19305 UREA NITROGEN (BUN) 16 mg/dL 08/14/2019 [facility] [address] COMPREHENSIVE METABOLIC PANEL 73698 CREATININE 0.86 m g/dL 08/14/2019 [facility] [address] COMPREHENSIVE METABOLIC PANEL 67394 eGFR NON-AFR. CZECH 92 mL/min/1.73m2 08/14/2019 [facility] [address] COMPREHENSIVE METABOLIC PANEL 65555 eGFR 106 mL/min/1.73m2 08/14/[address] [facility] [address] COMPREHENSIVE METABOLIC PANEL 30645 BUN/CREATININE RATIO NOT APPLICABLE (calc) 08/14/2019 [facility] [address] COMPREHENSIVE METABOLIC PANEL 34157 SODIUM 141 mm ol/L 08/14/2019 [facility] [address] COMPREHENSIVE METABOLIC PANEL 37388 POTASSIUM 4.1 mm ol/L 08/14/[address] [address] COMPREHENSIVE METABOLIC PANEL 46955 CHLORIDE 102 mm ol/L 08/14/2019 [facility] [address] COMPREHENSIVE METABOLIC PANEL 84752 CARBON DIOXIDE 28 mmol/L 08/14/2019 [facility] [address] COMPREHENSIVE METABOLIC PANEL 69022 CALCIUM 9.7 mg /dL 08/14/2019 [facility] [address] COMPREHENSIVE METABOLIC PANEL 64499 PROTEIN, TOTAL 6. 7 g/dL 08/14/2019 [facility] [address] COMPREHENSIVE METABOLIC PANEL 43114 ALBUMIN 4.3 g/ dL 08/14/2019 [facility] [address] COMPREHENSIVE METABOLIC PANEL 74186 GLOBULIN 2.4 g/ dL(calc) 08/14/[address] [address] COMPREHENSIVE METABOLIC PANEL 37273 ALBUMIN/GLOBULIN RATIO 1.8 (calc) 08/14/2019 [facility] [address] COMPREHENSIVE METABOLIC PANEL 05061 BILIRUBIN, TOTAL 1.0 mg/dL 08/14/2019 [facility] [address] COMPREHENSIVE METABOLIC PANEL 56557 ALKALINE PHOSPHATASE 56 U/L 08/14/2019 [facility] [address] COMPREHENSIVE METABOLIC PANEL 94604 AST 18 U/L 08/14/2019 [facility] [address] COMPREHENSIVE METABOLIC PANEL 76456 ALT 28 U/L 08/14/2019 [facility] [address] MAGNESIUM 78510 MAGNESIUM 2.0 mg/dL 06/06/2019 [facility] [address] COMPREHENSIVE METABOLIC PANEL 39263 Glucose 106 mg /dL 06/06/2019 [facility] [address] COMPREHENSIVE METABOLIC PANEL 37889 UREA NITROGEN (BUN) 22 mg/dL 06/06/2019 [facility] [address] [address] COMPREHENSIVE METABOLIC PANEL 96352 CREATININE 1.29 m g/dL 06/06/2019 [facility] [address] [address] COMPREHENSIVE METABOLIC PANEL 63303 eGFR NON-AFR. CZECH 58 mL/min/1.73m2 06/06/2019 [facility] [address] [address] COMPREHENSIVE METABOLIC PANEL 60938 eGFR 67 mL/min/1.73m2 06/06/2019 [facility] [address] [address] COMPREHENSIVE METABOLIC PANEL 89843 BUN/CREATININE RATIO 17 (calc) 06/06/2019 [facility] [address] [address] COMPREHENSIVE METABOLIC PANEL 09357 SODIUM 138 mm ol/L 06/06/2019 [facility] [address] [address] COMPREHENSIVE METABOLIC PANEL 32110 POTASSIUM 4.2 mm ol/L 06/06/2019 [facility] [address] [address] COMPREHENSIVE METABOLIC PANEL 40248 CHLORIDE 101 mm ol/L 06/06/2019 [facility] [address] [address] COMPREHENSIVE METABOLIC PANEL 27570 CARBON DIOXIDE 29 mmol/L 06/06/2019 [facility] [address] [address] COMPREHENSIVE METABOLIC PANEL 94045 CALCIUM 9.6 mg /dL 06/06/2019 [facility] [address] [address] COMPREHENSIVE METABOLIC PANEL 50191 PROTEIN, TOTAL 6. 9 g/dL 06/06/2019 [facility] [address] [address] COMPREHENSIVE METABOLIC PANEL 25942 ALBUMIN 4.4 g/ dL 06/06/2019 [facility] [address] [address] COMPREHENSIVE METABOLIC PANEL 68864 GLOBULIN 2.5 g/ dL(calc) 06/06/2019 [facility] [address] [address] COMPREHENSIVE METABOLIC PANEL 11304 ALBUMIN/GLOBULIN RATIO 1.8 (calc) 06/06/2019 [facility] [address] [address] COMPREHENSIVE METABOLIC PANEL 61347 BILIRUBIN, TOTAL 0.7 mg/dL 06/06/2019 [facility] [facility] [address] [address] COMPREHENSIVE METABOLIC PANEL 18099 ALKALINE PHOSPHATASE 45 U/L 06/06/2019 [facility] [address] [address] COMPREHENSIVE METABOLIC PANEL 96832 AST 21 U/L 06/06/2019 [facility] [address] COMPREHENSIVE METABOLIC PANEL 22669 ALT 34 U/L 06/06/2019 [facility] [address] CULTURE, URINE, ROUTINE 395 CULTURE, URINE, ROUTINE SEE NOTE 04/23/2019 [facility] [address] [address] CULTURE, URINE, ROUTINE 395 CULTURE SEE NOTE 0 04/23/2019 [facility] [address] [address] EXTRA 1014 EXTRA TUBE RECEIVED 04/22 [facility] [address] [address] EXTRA 1014 SPECIMEN TYPE RECEIVED: LAV 0 04/22/2019 [facility] [employer] [address] [address] COMPREHENSIVE METABOLIC PANEL 00624 Glucose 94 mg/ dL 04/22/2019 [facility] [address] [address] COMPREHENSIVE METABOLIC PANEL 52141 UREA NITROGEN (BUN) 20 mg/dL 04/22/2019 [facility] [address] [address] COMPREHENSIVE METABOLIC PANEL 73506 CREATININE 1.30 m g/dL 04/22/2019 [facility] [address] [address] COMPREHENSIVE METABOLIC PANEL 94406 eGFR NON-AFR. CZECH 58 mL/min/1.73m2 04/22/2019 [facility] [address] [address] COMPREHENSIVE METABOLIC PANEL 40475 eGFR 67 mL/min/1.73m2 04/22/2019 [facility] [address] COMPREHENSIVE METABOLIC PANEL 19506 BUN/CREATININE RATIO 15 (calc) 04/22/2019 [facility] [address] COMPREHENSIVE METABOLIC PANEL 86080 SODIUM 139 mm ol/L 04/22/2019 [facility] [address] COMPREHENSIVE METABOLIC PANEL 85164 POTASSIUM 4.2 mm ol/L 04/22/2019 [facility] [address] COMPREHENSIVE METABOLIC PANEL 33712 CHLORIDE 104 mm ol/L 04/22/2019 [facility] [address] COMPREHENSIVE METABOLIC PANEL 14643 CARBON DIOXIDE 27 mmol/L 04/22/2019 [facility] [address] COMPREHENSIVE METABOLIC PANEL 11893 CALCIUM 9.9 mg /dL 04/22/2019 [facility] [address] COMPREHENSIVE METABOLIC PANEL 84088 PROTEIN, TOTAL 7. 1 g/dL 04/22/2019 [facility] [address] COMPREHENSIVE METABOLIC PANEL 68652 ALBUMIN 4.6 g/ dL 04/22/2019 [facility] [address] COMPREHENSIVE METABOLIC PANEL 79669 GLOBULIN 2.5 g/ dL(calc) 04/22/2019 [facility] [address] COMPREHENSIVE METABOLIC PANEL 70089 ALBUMIN/GLOBULIN RATIO 1.8 (calc) 04/22/2019 [facility] [address] COMPREHENSIVE METABOLIC PANEL 82060 BILIRUBIN, TOTAL 0.4 mg/dL 04/22/2019 [facility] [address] COMPREHENSIVE METABOLIC PANEL 54225 ALKALINE PHOSPHATASE 53 U/L 04/22/2019 [facility] [address] COMPREHENSIVE METABOLIC PANEL 16886 AST 21 U/L 04/22/2019 [facility] [address] COMPREHENSIVE METABOLIC PANEL 84528 ALT 34 U/L 04/22/2019 [facility] [address] [place] [address] CULTURE, URINE, ROUTINE 395 CULTURE, URINE, ROUTINE SEE NOTE 01/31/2019 Zay Becerra [address] [place] [address] Procedures Procedure Codes Date CULTURE, AEROBIC BACTERIA CPT-4: 32350 10/27/2019 URINALYSIS NONAUTO W/O SCOPE CPT-4: 62925 10/02/2019 URINE CULTURE/ COLONY COUNT CPT-4: 08650 10/02/2019 ROUTINE VENIPUNCTURE CPT-4: 54453 08/13/2019 URINALYSIS NONAUTO W/O SCOPE CPT-4: 90773 08/13/2019 CULTURE, URINE, ROUTINE CPT-4: 395 08/13/2019 COMPREHENSIVE METABOLIC PANEL CPT-4: 70987 08/13/2019 CBC (H/H, RBC, INDICES, WBC, PLT) CPT-4: 57491 2018 COMPREHENSIVE METABOLIC PANEL CPT-4: 18891 06/05/2019 MAGNESIUM CPT-4: 10313 06/05/2019 DEXAMETHASONE SODIUM PHOS CPT-4: J1100 05/21/2019 THER/PROPH/DIAG INJ SC/IM CPT-4: 29717 05/21/2019 TRIAMCINOLONE ACET INJ NOS CPT-4: J3301 05/21/2019 ROUTINE VENIPUNCTURE CPT-4: 15737 04/21/2019 COMPREHENSIVE METABOLIC PANEL CPT-4: 68479 04/21/2019 EXTRA CPT-4: 1014 04/21/2019 CULTURE, URINE, ROUTINE CPT-4: 395 04/21/2019 URINALYSIS NONAUTO W/O SCOPE CPT-4: 27277 04/21/2019 URINALYSIS NONAUTO W/O SCOPE CPT-4: 40064 01/29/2019 CULTURE, URINE, ROUTINE CPT-4: 395 01/29/2019 DRAIN/INJECT JOINT/BURSA CPT-4: 00763 02/19/2018 TRIAMCINOLONE ACET INJ NOS CPT-4: J3301 02/19/2018 DEXAMETHASONE SODIUM PHOS CPT-4: J1100 02/19/2018 THER/PROPH/DIAG INJ SC/IM CPT-4: 97856 02/12/2018 TRIAMCINOLONE ACET INJ NOS CPT-4: J3301 02/12/2018 DEXAMETHASONE SODIUM PHOS CPT-4: J1100 02/12/2018 CEFTRIAXONE SODIUM INJECTION CPT-4: J0696 12/03/2017 THER/PROPH/DIAG INJ SC/IM CPT-4: 29068 12/03/2017 THER/PROPH/DIAG INJ SC/IM CPT-4: 54687 12/03/2017 METHYLPREDNISOLONE INJECTION CPT-4: J2930 12/03/2017 URINALYSIS NONAUTO W/O SCOPE CPT-4: 59188 08/13/2017 STREP A ASSAY W/OPTIC CPT-4: 49062 02/13/2017 DESTRUCT PREMALG LESION (Cryosurgery) CPT-4: 21421 Vital Signs Date Vital 10/27/2019 Blood Pressure [...] 1: 128/78 Code: 8480-6 BMI: 36.0 Code: 45482-4 Heart Rate 1: 68 bpm Height: 5'7" [...] 1: 138/86 Code: 8480-6 BMI: 35.6 Code: 22957-6 Heart Rate 1: 68 bpm Height: 5'7" SpO2: 95% Temperature: 36.6 (C) / 97.8 (F) Weight: 227 lbs 12/03/2017 Blood Pressure 1: 134/84 Code: 8480-6 BMI: 34.3 Code: 70876-2 Heart Rate 1: 68 bpm Height: 5'7" Respiratory Rate: 20 bpm SpO2: 96% Tempera ture: 35.9 (C) / 96.6 (F) Weight: 219 lbs 09/11/2017 Blood Pressure 1: 140/86 Code: 8480-6 BMI: 34.9 Code: 76634-2 Heart Rate 1: 84 bpm Height: 5'7" Respiratory Rate: 20 bpm SpO2: 95% Tempera ture: 36.7 (C) / 98.1 (F) Weight: 223 lbs 08/13/2017 Blood Pressure 1: 142/94 Code: 8480-6 BMI: 34.5 Code: 00246-3 Heart Rate 1: 76 bpm Height: 5'7" Respiratory Rate: 20 bpm SpO2: 96% Tempera ture: 37.1 (C) / 98.8 (F) Weight: 220 lbs 11/17/2016 Blood Pressure 1: 118/78 Code: 8480-6 art Rate 1: 64 bpm 07/19/2016 Blood Pressure 1: 112/58 Code: 8480-6 BMI: 31.6 Code: 04537-2 Heart Rate 1: 88 bpm Height: 5'7" Respiratory Rate: 22 bpm SpO2: 98% Tempera ture: 36.3 (C) / 97.4 (F) Weight: 202 lbs 06/09/2016 Blood Pressure 1: 138/84 Code: 8480-6 BMI: 32.1 Code: 66003-6 Heart Rate 1: 58 bpm Height: 5'7" Respiratory Rate: 20 bpm SpO2: 97% Tempera ture: 36.6 (C) / 97.8 (F) Weight: 205 lbs 11/08/2015 Blood Pressure 1: 142/80 Code: 8480-6 BMI: 32.4 Code: 62527-3 Heart Rate 1: 76 bpm Height: 5'7" Respiratory Rate: 20 bpm Temperature: 36 .6 (C) / 97.9 (F) Weight: 207 lbs 06/14/2015 Blood Pressure 1: 126/80 Code: 8480-6 Heart Rate 1: 84 bpm Respiratory Rate: 20 bpm Temperature: 36.8 (C) / 98.2 (F) Weight: 206 lbs 05/18/2015 Blood Pressure 1: 124/80 Code: 8480-6 BMI: 32.3 Code: 86703-9 Heart Rate 1: 68 bpm Height: 5'7" Respiratory Rate: 20 bpm Temperature: 36 .4 (C) / 97.6 (F) Weight: 206 lbs 02/22/2015 Blood Pressure 1: 126/78 Code: 8480-6 BMI: 32.1 Code: 55416-5 Heart Rate 1: 76 bpm Height: 5'7" Respiratory Rate: 20 bpm Temperature: 36 .6 (C) / 97.9 (F) Weight: 205 lbs 12/02/2014 Blood Pressure 1: 124/80 Code: 8480-6 BMI: 32.7 Code: 30601-0 Heart Rate 1: 70 bpm Height: 5'7" Respiratory Rate: 18 bpm Temperature: 36 .6 (C) / 97.9 (F) Weight: 209 lbs 08/18/2014 Blood Pressure 1: 132/94 Code: 8480-6 BMI: 34.5 Code: 56101-5 Heart Rate 1: 84 bpm Height: 5'6" Respiratory Rate: 20 bpm Temperature: 36 .6 (C) / 97.9 (F) Weight: 217 lbs 07/08/2014 Blood Pressure 1: 142/88 Code: 8480-6 BMI: 34.3 Code: 76455-3 Heart Rate 1: 72 bpm Height: 5'6" [...] 12/02/2014 skin lesion 08/18/2014 ~generic 07/08/2014 New Patient/[facility] Visit Encounters Encounter Performer Location Codes Date ([id number]) NO CHARGE Diagnosis: Infected sebaceous cyst[ICD10: L72.3] Sapna Johnston [employer] CPT-4: 77426 11/03/2019 ([id number]) OFFICE/OUTPATIENT VISIT EST Diagnosis: Disorder of the skin and subcutaneous tissue, unspecified[ICD10: L98.9] Diagnosis: Infected sebaceous cyst[ICD10: L72.3] Diagnosis: Local infection of the skin and subcutaneous tissue, unspecified[ICD10: L08.9] Lashell Joe SAPNA [employer] CPT-4 : 66925 10/27/2019 ([id number]) OFFICE/OUTPATIENT VISIT EST Diagnosis: Suprapubic abdominal pain[ICD10: R10.2] Diagnosis: Aortic regurgitation[ICD10: I35.1] Sapna GAUTAM THE NOCKLISTAmarjit [employer] CPT-4: 36992 10/02/2019 ([id number]) OFFICE/OUTPATIENT VISIT EST Diagnosis: Chest pain[ICD10: R07.9] Lashell COATSN MANUELITO [facility] CPT-4: 58877 08/25/2019 ([id number]) OFFICE/OUTPATIENT VISIT EST Diagnosis: Thoracic back pain[ICD10: M54.6] Diagnosis: Disorder of kidney and ureter, unspecified[ICD10: N28.9] Diagnosis: Personal history of nicotine dependence[ICD10: Z87.891] 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 PAULYND EDVIN Kato [facility] CPT-4: 29180 07/03/2019 ([id number]) OFFICE/OUTPATIENT VISIT EST Diagnosis: Cramp and spasm[ICD10: R25.2] Diagnosis: Disorder of kidney and ureter, unspecified[ICD10: N28.9] Lashell Capps. PAULYNDER [facility] CPT-4: 98801 06/05/2019 ([id number]) OFFICE/OUTPATIENT VISIT EST Diagnosis: Other pruritus[ICD10: L29.8] Diagnosis: Pain in right knee[ICD10: M25.561] Lashell SANCHEZ LOTUS S. PAULYNDER Kato [facility] CPT-4: 06198 05/21/2019 ([id number]) NURSE/OUTPATIENT VISIT EST Diagnosis: Edema, unspecified[ICD10: R60.9] Sapna CORRAL S. PAULYNDER DO [facility] CPT-4: 27095 04/21/2019 ([id number]) OFFICE/OUTPATIENT VISIT EST Diagnosis: Diverticulitis of large intestine without perforation or abscess without bleeding[ICD10: K57.32] Diagnosis: Snoring[ICD10: R06.83] Diagnosis: Other constipation[ICD10: K59.09] Lashell NICHOLE Geraldine S. PAULYNDER Kato [facility] CPT-4: 75792 02/24/2019 ([id number]) OFFICE/OUTPATIENT VISIT EST Diagnosis: Diverticulitis of large intestine without perforation or abscess with bleeding[ICD10: K57.33] Nancy BRUNSONLINE Vickie LIVE DO [employer] CPT-4: 34233 02/04/2019 ([id number]) OFFICE/OUTPATIENT VISIT EST Diagnosis: Left lower quadrant pain[ICD10: R10.32] Nancy LIVE DO [facility] CPT-4: 20947 01/29/2019 OFFICE/OUTPATIENT VISIT EST Diagnosis: Dermatitis, unspecified[ICD10: L30.9] Diagnosis: Gastro-esophageal reflux disease without esophagitis[ICD10: K21.9] Diagnosis: Palpitations[ICD10: R00.2] Sapna Calos SAPNA Vickie AU [employer] CPT-4: 35472 12/19/2018 ([id number]) OFFICE/OUTPATIENT VISIT EST Diagnosis: Gastro-esophageal reflux disease without esophagitis[ICD10: K21.9] Diagnosis: Dysphagia, pharyngoesophageal phase[ICD10: R13.14] Sapna Calos SAPNA JefryAmarjit CALOS [employer] CPT-4: 53758 11/11/2018 ([id number]) PREV VISIT EST AGE 40-64 Diagnosis: Encounter [...] and disorders of digestive system[ICD10: K91.89] Lashell CORRAL JefryAmarjit CALOS MARIE [employer] CPT-4: 99 396 10/09/2018 ([id number]) OFFICE/OUTPATIENT VISIT EST Diagnosis: Pain in right knee[ICD10: M25.561] Diagnosis: Pain in right hip[ICD10: M25.551] Lashell Chandler JefryAmarjit PAULYDOMINICEDVIN [facility] CPT-4: 04122 02/12/2018 OFFICE/OUTPATIENT VISIT EST Diagnosis: Essential (primary) hypertension[ICD10: I10] Diagnosis: Other chest pain[ICD10: R07.89] Lashell LIVE DO [facility] CPT-4: 25301 12/03/2017 ([id number]) OFFICE/OUTPATIENT VISIT EST Diagnosis: Essential (primary) hypertension[ICD10: I10] Sapna LIVE [facility] CPT-4: 06564 09/11/2017 ([id number]) PREV VISIT EST AGE 40-64 Diagnosis: Encounter for general adult medical examination without abnormal findings[ICD10: Z00.00] Diagnosis: Essential (primary) hypertension[ICD10: I10] Diagnosis: Left lower quadrant pain[ICD10: R10.32] Diagnosis: Left upper quadrant pain[ICD10: R10.12] Diagnosis: Other intervertebral disc degeneration, 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] Sapna LIVE [facility] CPT-4: 71028 08/13/2017 ([id number]) OFFICE/OUTPATIENT VISIT EST Diagnosis: Acute pharyngitis, unspecified[ICD10: J02.9] Sapna LIVE [facility] CPT-4: 56203 02/13/2017 ([id number]) PREV VISIT EST AGE 40-64 Diagnosis: Encounter for general adult medical examination without abnormal findings[ICD10: Z00.00] Diagnosis: Essential (primary) hypertension[ICD10: I10] 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 PAULYNDER DO [facility] CPT-4: 48400 11/08/2015 ([id number]) OFFICE/OUTPATIENT VISIT EST Diagnosis: DERMATITIS NOS[ICD9: 692.9] Diagnosis: SEBACEOUS CYST[ICD9: 706.2] Sapna Capps. O RENDER DO [facility] CPT-4: 66817 06/14/2015 OFFICE/OUTPATIENT VISIT EST Diagnosis: LOCAL SKIN INFECTION[ICD9: 686.9] Diagnosis: FOLLICULITIS[ICD9: 704.8] Chelsie Capps. PAULY NDER DO [facility] CPT-4: 66607 05/18/2015 ([id number]) OFFICE/OUTPATIENT VISIT EST Diagnosis: Constipation[ICD9: 564.00] Sapna BRUNSONLINE Jefry. CANDICE AU DO [facility] CPT-4: 27285 02/22/2015 ([id number]) OFFICE/OUTPATIENT VISIT EST Diagnosis: Thoracic back pain[ICD9: 724.1] Diagnosis: Thoracic degenerative disc disease[ICD9: 722.51] Diagnosis: Scoliosis[ICD9: 737.30] Sapna Capps. PAULYND ER DO [facility] CPT-4: 85438 12/02/2014 ([id number]) OFFICE/OUTPATIENT VISIT EST Diagnosis: Thoracic back pain[ICD9: 724.1] Diagnosis: ACTINIC KERATOSIS[ICD9: 702.0] Sapna BRUNSONLINE Jefry Amarjit HITESHER DO [facility] CPT-4: 00069 08/18/2014 OFFICE/OUTPATIENT VISIT NEW Diagnosis: HYPERTENSION[ICD9: 401.9] Diagnosis: Thoracic back pain[ICD9: 724.1] Diagnosis: GERD[ICD9: 530.81] Diagnosis: Adrenal tumor[ICD9: 239.7] Sapna BRUNSONLINE Jefry. OR ANGELY DO [facility] CPT-4: 44058 07/08/2014 ([id number]) OFFICE/OUTPATIENT VISIT NEW Diagnosis: HYPERTENSION[ICD9: 401.9] Diagnosis: GERD[ICD9: 530.81] Sapna BRUNSONLINE JefryAmarjit PAULYNDER DO [facility] CPT-4: 07706 07/08/2014 Plan of Care Planned Activity Notes Codes Status Date Visit Diagnosis Plan: Infected sebaceous cyst Discussi on: Sent out 1 week of doxycycline ICD-9 : 706.2 ICD-10 : L72.3 11/03/2019 Appointment: Sapna Live WPtel: [facility] [place] [facility] [id number] [facility] 11/03/2019 Visit Diagnosis Plan: Local [...] ICD-10 : L08.9 10/27/2019 Appointment: Lashell Joe [address] [place], [place] [phone] ACUTE ILLNESS 10/27/2019 Patient Education: tramadol- [employer] Coupon [id number] [email or web address].kapturem/samplemd/resources/getResource/61/[email or web address]-[email or web address] Completed 10/27/2019 Visit Diagnosis Plan: Suprapubic abdominal pain Discus edvin: Improving Culture urine ICD-9 : 789.09 ICD-10 : R10.2 10/02/2019 Visit NOS Plan: Plan Notes: Update Low Dose CT scan of ming... 10/02/2019 Visit Diagnosis Plan: Aortic regurgitation Discussion: Referral to Cardiology ICD-9 : 424.1 ICD-10 : I35.1 10/02/2019 Appointment: Sapna Live WPtel: [phone] [facility] FOLLOW UP 10/02/2019 Care Plan: Referral Order SNOMED-CT : [id number] Pending 10/02/2019 Visit Diagnosis Plan: Chest pain Discussion: will star t with cxray and rib xray. discussed that could be lung, rib, muscle but will start with cxray and patient may need echo. he verbalized understanding. ICD-9 : 786.50 ICD-10 : R07.9 08/25/2019 Appointment: [facility]hell [facility] [id number] [facility] 08/25/2019 Visit Diagnosis Plan: Adrenal [...] ct of lungs to be done at [facility]. ICD-9 : V15.82 ICD-10 : Z87.891 08/13/2019 Visit Diagnosis Plan: Thoracic back pain Discussion: c hronic pain. will refer to dr. stallings at [place] for evaluation and treatment ICD-9 : 724.1 [...] : N28.9 08/13/2019 Appointment: Lashell Joe [address] [facility] [place] FO[facility] [place] 08/13/2019 Visit Diagnosis Plan: Renal insufficiency Discussion: Labs discussed Continue off NSAIDS Hydrate Recheck Chemistry 3mos ICD-9 : 593.9 ICD-10 : N28.9 07/03/2019 Visit Diagnosis Plan: Sigmoid diverticulitis Discussio n: Bactrim/Flagyl [place] diet To ER this weekend if worsening ICD-9 : 562.11 ICD-10 : K57.32 07/03/2019 Visit Diagnosis Plan: Jock itch Discussion: Diflucan a nd topical nystatin ICD-9 : 110.3 ICD-10 : B35.6 07/03/2019 Appointment: Sapna Live WPtel: [phone] [facility] [id number] FOLLOW UP 07/03/2019 Patient Education: fluconazole- [employer] C[employer]on [id number] Completed 07/03/2019 Patient Education: nystatin- [employer] C[employer]on [id number] Completed 07/03/2019 Visit Diagnosis Plan: Disorder of [...] ICD-10 : R25.2 06/05/2019 Appointment: Lashell Joe [address] [place], [place] [phone] NO SHOW - FORGIVEN 06/05/2019 Appointment: Lashell Joe [address] [place], [place] [phone] ACUTE ILLNESS 06/05/2019 Visit Diagnosis Plan: Other [...] ICD-10 : M25.561 05/21/2019 Appointment: Lashell Joe [address] [place], [place] [phone] ACUTE ILLNESS 05/21/2019 Patient Education: hydroxyzine HCl- [employer] Coupon [id number] https://www.[employer].com/samplemd/resources/getResource/61/[email or web address]-m14i-09gj-45 Completed 05/21/2019 Appointment: Sapna Live WPtel: [address] [place], [place] [phone] 05/19/19 1645---see note put in chart today (km) CANCELED 05/19/2019 Appointment: Sapna Live WPtel: [phone] [address] US CANCELED 05/05/2019 Appointment: Sapna Live WPtel: [facility] [address] UA 04/21/2019 Visit Diagnosis Plan: Snoring Discussion: [...] ICD-10 : K59.09 02/24/2019 Appointment: Lashell Joe [address] [place] [address] Hospital Follow Up 02/24/2019 Visit Diagnosis Plan: Diverticulitis of large intestine without perforation or abscess with bleeding Discussion: Continue flagyl and cipro. A dvance diet to bland. BRAT diet advised. Avoid nuts, seeds, popcorn, roughage. RTC if abdominal pain worsens or does not improve. ICD-9 : 562.13 ICD-10 : K57.33 02/04/2019 Appointment: Nancy Mendiola [id number] [facility] 02/04/2019 Visit Diagnosis Plan: Left [...] ICD-10 : R10.32 01/29/2019 Appointment: Nancy Mendiola [facility]0 Ph[id number] ACUTE ILLNESS 01/29/2019 Care Plan: CT PELVIS [...] : L30.9 12/19/2018 Appointment: Sapna Live WPtel: [address] [place], [place] [phone] ACUTE ILLNESS 12/19/2018 Visit Diagnosis Plan: Gastro-esophageal reflux disease without esophagitis Discussion: Continue protonix at 40mg daily Hold mobic No NSAIDS Hold all MVs If persists then will need EGD ICD-9 : 530.81 ICD-10 : K21.9 11/11/2018 Appointment: Sapna Live WPtel: [phone] [id number] FO[facility] UP 11/11/2018 Visit Diagnosis Plan: Encounter [...] ICD-10 : Z12.2 10/09/2018 Appointment: Lashell Joe [address] [place], [place] [phone] Annual Well Visit 10/09/2018 Patient Education: gabapentin- [employer] Coupon [id number] Completed 10/09/2018 Patient Education: Kegel Exercises Comple catalina 10/09/2018 Patient Education: High Blood Pressure Co mpleted 10/09/2018 Visit Diagnosis Plan: Pain in right knee Discussion: c orticosteroid injection administered as described above. patient tolerated well. instructed to rtc in 3- 4 months if needed for additional injection. ICD-9 : 719.46 ICD-10 : M25.561 02/19/2018 Appointment: Lashell Joe [address] [place], [place] [address] OFFICE SURGERY 02/19/2018 Patient Education: Patient Medication [...] ICD-10 : M25.561 02/12/2018 Appointment: Lashell Joe [address] [place], [place] [address] ACUTE ILLNESS 02/12/2018 Patient Education: Patient Medication Summary Completed 02/12/2018 Care Plan: X-RAY EXAM OF KNEE 1 [place] 2 [place] : [address]7 Pending 02/12/2018 Visit Diagnosis Plan: Other chest [...] ICD-10 : I10 12/03/2017 Appointment: Lashell Joe [address] [place], [place] [phone] ESTABLISHED PATIENT 12/03/2017 Patient Education: Patient Medication Summary Completed 12/03/2017 Visit Diagnosis Plan: Essential (primary) hypertension Discussion: Increase quinapril to 40mg daily BP check in 1month ICD-9 : 401.9 ICD-10 : I10 09/11/2017 Appointment: Sapna Live WPtel: [address] [place] [place] [address] FOLLOW UP 09/11/2017 Patient Education: Patient Medication Summary Completed 09/11/2017 Appointment: Sapna Live WPtel: [address] [place] [address] RESCHEDULED 08/22/2017 Visit Diagnosis Plan: Left lower quadrant pain Discuss ion: Update colonoscopy ICD-9 : 789.04 ICD-10 : R10.32 08/13/2017 Visit Diagnosis Plan: Essential (primary) hypertension Discussion: Increase quinapril to 20mg daily Follow Up: 1 months ICD-9 : 401.9 ICD-10 : I10 08/13/2017 Visit Diagnosis Plan: Encounter for gene [facility] adult medical examination without abnormal findings Discussion: Update fasting lab ICD-9 : V70.9 ICD-10 : Z00.00 08/13/2017 Appointment: Sapna Live WPtel: [address] [place] [place] [address] Annual Well Visit 08/13/2017 Patient Education: Patient Medication Summary Completed 08/13/2017 Appointment: Sapna Live WPtel: [address] [place] [address] THROAT SWAB 02/13/2017 Patient Education: Patient Medication Summary Completed 02/13/2017 Appointment: Sapna Live WPtel: [address] [place], [place] [phone] US BP CHECK 11/17/2016 Patient Education: Patient Medication Summary Completed 11/17/2016 Visit Plan: Due for colonoscopy in 2018 Had shingles shot and flu shot Change quinapril hct to plain quinapril and see if muscles twitches improve Fwup with Dr. Braga Lab discussed Discussed diet/exercise at length Check CT abdomen Recheck 3mos 07/19/2016 Appointment: Sapna Live WPtel: [phone] [facility]6[address] 07/18 confirmed`sl PHYSICAL 07/19/2016 [...] convenience 06/09/2016 Appointment: Sobia Monreal WPtel: [phone] ACUTE ILLNESS 06/09/2016 Patient Education: Patient Medication Summary Completed 06/09/2016 Referral: Demario Braga WPtel: [phone] [address] [place] Referral Initiated 11/12/2015 Visit Plan: Continue indwelling catheter until follow-up with Dr. Braga Continue Bactrim and Cipro Pyridium TID for Bladder spasms 11/08/2015 Appointment: Chelsie Teixeira WPtel: [phone] [id number] ER Follow UP 11/08/2015 Patient Education: Patient Medication Summary Completed 11/08/2015 Referral: Abdiel Tucker WPtel: [phone] [phone] [place] Referral Initiated 06/21/2015 Visit Plan: Prednisone 20mg daily for 1w [place] See surgery of cyst removal 06/14/2015 Appointment: Sapna Live WPtel: [address] [place], [place] [phone] 06/11 vm cn 06/14 cn FOLLOW UP 2014 Patient Education: Patient Medication Summary Completed 06/14/2015 Visit Plan: Warm moist compresses to Lef t shoulder lesion and apply topical Mupirocin twice daily Complete Cephalexin x 7 days as directed Resume Culturelle daily 05/18/2015 Appointment: Chelsie Teixeira WPtel: [address] [place], [place] [phone] ACUTE ILLNESS 05/18/2015 Patient Education: Patient Medication Summary Completed 05/18/2015 Visit Plan: Check fasting lab Use pain m eds prn with miralax on the day that takes pain meds 02/22/2015 Appointment: Sapna Live WPtel: [address] [place], [place] [phone] 02/19 cn 02/19 appt confirmed-lb ACUTE ILLNESS 5 Patient Education: Patient Medication Summary Completed 02/22/2015 Visit Plan: Increase neurontin to 300mg q HS Continue flexeril and tramadol Call in 1mo on how higher dose of gabapentin 12/02/2014 Appointment: [facility] WPtel: [address] [place], [place] [phone] FOLLOW UP 12/02/2014 Patient Education: Patient Medication Summary Completed 12/02/2014 Referral: [facility] Angelo [id number] Referral Appointment Confirmed 09/15/2014 Visit Plan: Proceed with pain doctor for possible injection vs nerve block Trial of lidoderm patch Cryotherapy to lesions as above 08/18/2014 Appointment: Sapna Live WPtel: [address] [place], [place] [phone] ACUTE ILLNESS 08/18/2014 Patient Education: Patient Medication Summary Completed 08/18/2014 Patient Education: Patient Medication Summary Completed 08/13/2014 Visit Plan: Continue current meds Obtain most recent lab results Check thoracic spine x-rays Needs updated CT scan of adrenal tumor 07/08/2014 Appointment: Sapna Live WPtel: [id number] 07/07 vm NEW PATIENT 07/08/2014 Patient Education: Patient Medication Summary Completed 07/08/2014 Patient Education: Patient Medication Summary Completed 07/08/2014 Referral: Suhail Cardenas WPtel: [phone] [id number] [place] Referral Completed Referral: Toby Bettencourt WPtel: [address] [facility] [address] [id number] [place] Referral Completed Referral: Rosario Monahan WPtel: [phone] [place] Referral Appointment Requested Instructions Comment . Due for colonoscopy in 2018 Had [...]
--- OUTSIDE RECORDS SUMMARY | 2020-02-05 07:52 | XMS REPORT | CCD ---
Author Author Jai Live D.O. 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 Name Role Phone Sapna Live D.O., PP Unavailable CCM Unavailable Summary Purpose Interface Exchange Insurance Providers Payer name Policy type / Coverage type Covered constitution party ID Effective Begin Date Effective End Date GPA Commercial Insurance [id number] 2019 Unknown Family history Mother Diagnosis Age At Onset Cancer Unknown Father Diagnosis Age At Onset Congestive heart failure Unknown Coronary Artery Disease(CAD) Unknown Social History Social History Element Codes Description Effective Dates Tobacco history SNOMED CT: 8945348 Former smoker 10/09/2018 Marital status Unknown 07/08/2014 Number of children Unknown 1 07/08/2014 Employment Unknown Currently employed [employer] 07/08/[address]: 072118614 Never drinks alcohol 2013 Has the patient [...] Instructions doxycycline hyclate 100 mg capsule RxNorm: 1348223 1 Cap lee(s) Oral two times a day 11/03/2019 11/10/2019 Active doxycycline hyclate 100 mg capsule RxNorm: 1847006 1 Cap lee(s) Oral two times a day 11/03/2019 11/02/2019 Inactive tramadol 50 mg tablet RxNorm: 756054 1 Tablet(s) Oral t hree times a day as needed for pain along with two tylenol 10/27/2019 10/27/2019 Inactive cyclobenzaprine 10 mg tablet RxNorm: 782513 1 Tablet(s) Oral th ree times a day 10/27/2019 No Stop Date Active Bactrim DS 800 mg-160 mg tablet RxNorm: 807423 1 Tablet(s) Oral two times a day 10/27/2019 11/03/2019 Inactive tramadol 50 mg tablet RxNorm: 135457 1 Tablet(s) Oral t hree times a day as needed for pain along with two tylenol 10/27/2019 10/26/2019 Inactive Bactrim DS 800 mg-160 mg tablet RxNorm: 887733 1 Tablet(s) Oral two times a day 10/27/2019 10/26/2019 Inactive tramadol 50 mg tablet RxNorm: 940995 1 Tablet(s) Oral t hree times a day as needed for pain along with two tylenol 09/29/2019 10/26/2019 Inactive quinapril 40 mg tablet RxNorm: 119900 1 Tablet(s) Oral QD 09/18/2019 03/15/2020 Active Patient requests 90 days supply tramadol 50 mg tablet RxNorm: 217329 1 Tablet(s) Oral t hree times a day as needed for pain along with two tylenol 08/28/2019 08/28/2019 Inactive tramadol 50 mg tablet RxNorm: 015938 1 Tablet(s) PO TID as needed for pain along with two tylenol 08/25/2019 08/27/2019 Inactive pantoprazole 40 mg tablet,delayed release RxNorm: 395991 1 Tabl et(s) Oral QD 08/13/2019 No Stop Date Active Vitamin D3 1,000 unit capsule RxNorm: 262586 1 Capsule(s) Oral QD 1 10/13/2018 No Stop Date Active tamsulosin 0.4 mg capsule RxNorm: 618462 1 Capsule(s) Oral QPM 07/26 No Stop Date Active Protonix 40 mg tablet,delayed release RxNorm: 426700 TA KE 1 TABLET BY MOUTH TWICE A DAY 08/04/2019 08/12/2019 Inactive Flagyl 500 mg tablet RxNorm: 412903 1 Tablet(s) Oral three time s a day 07/03/2019 07/13/2019 Inactive fluconazole 100 mg tablet RxNorm: 505966 1 Tablet(s) Oral QD 201807/10/2019 Inactive Bactrim DS 800 mg-160 mg tablet RxNorm: 522758 1 Tablet(s) Oral two times a day 07/03/2019 07/13/2019 Inactive nystatin 100,000 unit/gram topical cream RxNorm: 658567 Application Topical two times a day 07/03/2019 08/12/2019 Inactive gabapentin 600 mg tablet RxNorm: 867818 Tablet(s) TAKE 1 TABLET BY MOUTH EVERY NIGHT AT BEDTIME 06/25/2019 08/12/2019 Inactive - First Attempt Ref: [id number] quinapril 40 mg tablet RxNorm: 555670 1 Tablet(s) Oral QD 06/23/2019 09/17/2019 Inactive Patient requests 90 days supply tramadol 50 mg tablet RxNorm: 498472 1 Tablet(s) PO TID as needed for pain along with two tylenol 05/23/2019 08/24/2019 Inactive hydroxyzine HCl 25 mg tablet RxNorm: 567627 1 Tablet(s) PO TID as needed 05/21/2019 08/12/2019 Inactive Elimite 5 % topical cream RxNorm: 589396 1 Application TOP QHS apply head to toe and was off in morning 05/19/2019 07/02/2019 Inactive Protonix 40 mg tablet,delayed release RxNorm: 472189 1 Tablet(s ) PO BID 05/05/2019 08/02/2019 Inactive - First Attempt Ref: [id number] gabapentin 600 mg tablet RxNorm: 550121 Tablet(s) TAKE 1 TABLET BY MOUTH EVERY NIGHT AT BEDTIME 04/25/2019 06/24/2019 Inactive - First Attempt Ref: [id number] tramadol 50 mg tablet RxNorm: 234435 1 Tablet(s) PO TID as needed for pain along with two tylenol 04/21/2019 05/22/2019 Inactive quinapril 40 mg tablet RxNorm: 947597 1 Tablet(s) PO QD 04/01/2019 Inactive Patient requests 90 days supply fenofibrate micronized 134 mg capsule RxNorm: 674273 1 Capsule(s) PO QD Due for updated fasting labs 03/31/2019 08/12/2019 Inactive dicyclomine 10 mg capsule RxNorm: 999697 1 Capsule(s) PO TID as needed 02/24/2019 05/20/2019 Inactive Flagyl 500 mg tablet RxNorm: 122175 1 Tablet(s) PO Q8H 02/24/201908/2019 Inactive ciprofloxacin 500 mg tablet RxNorm: 890968 1 Tablet(s) PO BID 02/2403/09/2019 Inactive Flagyl 500 mg tablet RxNorm: 950604 1 Tablet(s) PO Q6H 01/30/2019 Inactive ciprofloxacin 500 mg tablet RxNorm: 849954 1 Tablet(s) PO BID 01/3001/29/2019 Inactive Flagyl 500 mg tablet RxNorm: 877619 1 Tablet(s) PO Q6H 01/30/201904/2019 Inactive ciprofloxacin 500 mg tablet RxNorm: 903346 1 Tablet(s) PO BID 01/3002/05/2019 Inactive gabapentin 600 mg tablet RxNorm: 125119 TAKE 1 TABLET B Y MOUTH EVERY NIGHT AT BEDTIME 01/27/2019 04/24/2019 Inactive - First Attempt Ref: [id number] tramadol 50 mg tablet RxNorm: 450532 1 Tablet(s) PO TID as needed for pain along with two tylenol 01/08/2019 04/20/2019 Inactive fenofibrate micronized 134 mg capsule RxNorm: 711183 1 Capsule(s) PO QD Due for updated fasting labs 01/02/2019 03/30/2019 Inactive quinapril 40 mg tablet RxNorm: 284505 1 Tablet(s) PO QD 01/01/2019 Inactive Patient requests 90 days supply Protonix 40 mg tablet,delayed release RxNorm: 701892 TA KE 1 TABLET BY MOUTH TWICE A DAY 01/01/2019 03/31/2019 Inactive - First Attempt Ref: [id number] Protonix 40 mg tablet,delayed release RxNorm: 178676 TA KE 1 TABLET BY MOUTH TWICE A DAY 12/25/2018 12/31/2018 Inactive - First Attempt Ref: [id number] gabapentin 600 mg tablet RxNorm: 925470 TAKE 1 TABLET B Y MOUTH EVERY NIGHT AT BEDTIME 12/02/2018 01/26/2019 Inactive - First Attempt Ref: [id number] Protonix 40 mg tablet,delayed release RxNorm: 319855 1 Tablet(s ) PO BID 11/11/2018 12/24/2018 Inactive Protonix 40 mg tablet,delayed release RxNorm: 326959 1 Tablet(s ) PO BID 10/09/2018 11/10/2018 Inactive gabapentin 600 mg tablet RxNorm: 549511 1 Tablet(s) PO QHS 10/09/1912/01/2018 Inactive quinapril 40 mg tablet RxNorm: 584951 1 Tablet(s) PO QD 1 TABLE T(S) PO QD 08/08/2018 08/07/2018 Inactive Patient requests 9 0 days supply quinapril 40 mg tablet RxNorm: 784961 1 Tablet(s) PO QD 08/08/2018 Inactive Patient requests 90 days supply meloxicam 15 mg tablet RxNorm: 806029 1 Tablet(s) PO QD 08/08/2018 Inactive gabapentin 300 mg capsule RxNorm: 806099 1 CAPSULE(S) P O QHS DUE FOR WELLNESS VISIT 08/07/2018 10/08/2018 Inactive due for followup meloxicam 15 mg tablet RxNorm: 997349 Tablet(s) 1 TABLET(S) PO QD 1 10/07/2017 08/07/2018 Inactive fenofibrate micronized 134 mg capsule RxNorm: 701461 1 Capsule(s) PO QD Needs updated fasting labs!!!!!! 07/08/2018 07/07/2018 Inactive fenofibrate micronized 134 mg capsule RxNorm: 284490 1 Capsule( s) PO QD 07/08/2018 01/01/2019 Inactive fenofibrate micronized 134 mg capsule RxNorm: 061890 1 Capsule(s) PO QD Needs updated fasting labs!!!!!! 06/21/2018 07/08/2018 Inactive Medrol (Daniel) 4 mg tablets in a dose pack RxNorm: 110626 Tablet(s) PO As Directed 05/06/2018 05/05/2018 Inactive Medrol (Daniel) 4 mg tablets in a dose pack RxNorm: 584848 Tablet(s) PO As Directed 05/06/2018 08/07/2018 Inactive quinapril 40 mg tablet RxNorm: 123950 1 TABLET(S) PO QD 05/02/2018 Inactive Patient requests 90 days supply fenofibrate micronized 134 mg capsule RxNorm: 798277 1 Capsule(s) PO QD Needs updated fasting labs 04/29/2018 05/28/2018 Inactive Move Free Joint Health 750 mg-100 mg-1.65 mg-108 mg tablet R xNorm: 1 Tablet(s) PO QD 02/12/2018 03/13/2018 Inactive fenofibrate micronized 134 mg capsule RxNorm: 024464 Ca psule(s) 1 CAPSULE(S) PO QD 01/29/2018 06/21/2018 Inactive quinapril 40 mg tablet RxNorm: 203369 1 TABLET(S) PO QD 11/26/2017 Inactive Patient requests 90 days supply fenofibrate micronized 134 mg capsule RxNorm: 128606 1 CAPSULE( S) PO QD 11/06/2017 01/29/2018 Inactive gabapentin 300 mg capsule RxNorm: 085605 1 CAPSULE(S) P O QHS DUE FOR WELLNESS VISIT 10/24/2017 07/20/2018 Inactive due for followup meloxicam 15 mg tablet RxNorm: 615902 1 TABLET(S) PO QD 10/24/2017 Inactive quinapril 40 mg tablet RxNorm: 182317 1 Tablet(s) PO QD 10/24/2017 Inactive fenofibrate micronized 134 mg capsule RxNorm: 546688 1 Capsule( s) PO QD 08/22/2017 11/05/2017 Inactive fenofibrate micronized 134 mg capsule RxNorm: 203442 1 Capsule( s) PO QD 08/22/2017 08/21/2017 Inactive quinapril 20 mg tablet RxNorm: 063451 1 Tablet(s) PO QD 08/13/2017 Inactive gabapentin 300 mg capsule RxNorm: 761029 1 Capsule(s) P O QHS Due for wellness visit 08/06/2017 10/23/2017 Inactive due for followup gabapentin 300 mg capsule RxNorm: 593507 1 Capsule(s) P O QHS Due for wellness visit 08/02/2017 08/05/2017 Inactive due for followup meloxicam 15 mg tablet RxNorm: 792029 1 Tablet(s) PO QD 08/01/2017 Inactive gabapentin 300 mg capsule RxNorm: 934498 1 Capsule(s) P O QHS Due for wellness visit 08/01/2017 08/01/2017 Inactive due for followup gabapentin 300 mg capsule RxNorm: 152323 1 Capsule(s) P O QHS Due for wellness visit 08/01/2017 08/02/2017 Inactive gabapentin 300 mg capsule RxNorm: 748253 1 Capsule(s) PO QHS 201605/12/2017 Inactive quinapril 10 mg tablet RxNorm: 195967 1 Tablet(s) PO QD replace s quinapril hct 02/12/2017 08/12/2017 Inactive meloxicam 15 mg tablet RxNorm: 155329 1 Tablet(s) PO QD 02/05/2017 Inactive quinapril 10 mg tablet RxNorm: 298337 1 Tablet(s) PO QD replace s quinapril hct 11/16/2016 02/12/2017 Inactive gabapentin 300 mg capsule RxNorm: 231575 1 Capsule(s) PO QHS 201602/12/2017 Inactive quinapril 10 mg tablet RxNorm: 167466 1 Tablet(s) PO QD replace s quinapril hct 10/16/2016 11/15/2016 Inactive gabapentin 300 mg capsule RxNorm: 322189 1 Capsule(s) PO QHS 201511/15/2016 Inactive quinapril 10 mg tablet RxNorm: 576283 1 Tablet(s) PO QD replace s quinapril hct 07/19/2016 10/15/2016 Inactive meloxicam 15 mg tablet RxNorm: 097785 1 Tablet(s) PO QD 07/10/2016 Inactive meloxicam 15 mg tablet RxNorm: 778241 TAKE ONE TABLET BY MOUTH LUKE Y 07/10/2016 07/09/2016 Inactive meloxicam 15 mg tablet RxNorm: 270512 1 Tablet(s) PO QD 07/06/2016 Inactive meloxicam 15 mg tablet RxNorm: 804363 1 Tablet(s) PO QD 06/09/2016 Inactive Multivitamin & Mineral Formula tablet RxNorm: 1 Tablet(s) PO Q D 06/02/2016 07/01/2016 Inactive tamsulosin 0.4 mg capsule RxNorm: 934861 1 Capsule(s) PO QHS 201507/01/2016 Inactive Move Free Joint Health 750 mg-100 mg-1.65 mg-108 mg tablet R xNorm: 1 Tablet(s) PO QD 06/02/2016 07/01/2016 Inactive gabapentin 300 mg capsule RxNorm: 226535 1 Capsule(s) PO QHS 201508/27/2016 Inactive gabapentin 300 mg capsule RxNorm: 013959 Capsule(s) ALFONZO E ONE CAPSULE BY MOUTH AT BEDTIME 02/28/2016 05/27/2016 Inactive quinapril 10 mg-hydrochlorothiazide 12.5 mg tablet RxNorm: 3 21410 Tablet(s) TAKE ONE TABLET BY MOUTH EVERY MORNING 01/14/2016 07/18/2016 Inactive gabapentin 300 mg capsule RxNorm: 860098 TAKE ONE CAPSULE BY [facility] AT BEDTIME 12/28/2015 02/27/2016 Inactive Urecholine 25 mg tablet RxNorm: 100606 1 Tablet(s) PO TID 11/09/2015 07/18/2016 Inactive phenazopyridine 100 mg tablet RxNorm: 7482711 1 Tablet(s ) PO TID as needed for bladder spasms. 11/08/2015 11/08/2015 Inactive quinapril 10 mg-hydrochlorothiazide 12.5 mg tablet RxNorm: 3 72805 TAKE ONE TABLET BY MOUTH EVERY MORNING 10/15/2015 01/13/2016 Inactive gabapentin 300 mg capsule RxNorm: 423117 1 Tablet(s) PO QD TAKE ONE CAPSULE BY MOUTH EVERY NIGHT AT BEDTIME 09/23/2015 12/21/2015 Inactive quinapril 10 mg-hydrochlorothiazide 12.5 mg tablet RxNorm: 3 99162 Tablet(s) TAKE ONE TABLET BY MOUTH EVERY MORNING 07/14/2015 10/14/2015 Inactive gabapentin 300 mg capsule RxNorm: 387757 1 Tablet(s) PO QD TAKE ONE CAPSULE BY MOUTH EVERY NIGHT AT BEDTIME 06/25/2015 09/23/2015 Inactive prednisone 20 mg tablet RxNorm: 914910 1 Tablet(s) PO QD 06/14/2015 0 06/20/2015 Inactive cephalexin 500 mg capsule RxNorm: 425357 1 Capsule(s) PO BID 201405/27/2015 Inactive mupirocin 2 % topical ointment RxNorm: 875236 TOP BID 05/18/2015 0 06/13/2015 Inactive quinapril 10 mg-hydrochlorothiazide 12.5 mg tablet RxNorm: 3 47992 Tablet(s) TAKE ONE TABLET BY MOUTH EVERY MORNING 04/06/2015 07/14/2015 Inactive gabapentin 300 mg capsule RxNorm: 228135 1 Capsule(s) PO QHS 201404/01/2015 Inactive [SAVINGS FOR NON-COVERED LILIANA GS -- BIN:637988, PCN: ASPROD1, Group: XXXXX, ID# [id number], Questions: . THIS IS NOT INSURANCE.] gabapentin 300 mg capsule RxNorm: 091457 1 Capsule(s) PO QHS 201406/25/2015 Inactive [SAVINGS FOR NON-COVERED LILIANA GS -- BIN:420119, PCN: ASPROD1, Group: XXXXX, ID# [id number], Questions: . THIS IS NOT INSURANCE.] quinapril 10 mg-hydrochlorothiazide 12.5 mg tablet RxNorm: 3 57149 TAKE ONE TABLET BY MOUTH EVERY MORNING 12/11/2014 04/05/2015 Inactive gabapentin 300 mg capsule RxNorm: 469000 1 Capsule(s) PO QHS 201404/02/2015 Inactive [SAVINGS FOR NON-COVERED LILIANA GS -- BIN:241981, PCN: ASPROD1, Group: XXXXX, ID# [id number], Questions: . THIS IS NOT INSURANCE.] cyclobenzaprine 10 mg tablet RxNorm: 259590 1 Tablet(s) PO TID as needed for muscle spasm for muscle spasm 12/02/2014 02/21/2015 Inactive [S AVINGS FOR NON- COVERED DRUGS -- BIN:459908, PCN: ASPROD1, Group: XXXXX, ID# [id number], Questions: . THIS IS NOT INSURANCE.] gabapentin 100 mg capsule RxNorm: 230360 1 Capsule(s) PO QHS 201412/01/2014 Inactive [SAVINGS FOR NON-COVERED LILIANA GS -- BIN:607968, PCN: ASPROD1, Group: XXXXX, ID# [id number], Questions: . THIS IS NOT INSURANCE.] ibuprofen 800 mg tablet RxNorm: 110284 1 Tablet(s) PO T ID as needed low back pain 11/11/2014 11/23/2014 Inactive [SAVINGS FOR NON -COVERED DRUGS -- BIN:862882, PCN: ASPROD1, Group: XXXXX, ID# [id number], Questions: . THIS IS NOT INSURANCE.] ibuprofen 800 mg tablet RxNorm: 126880 1 Tablet(s) PO T ID as needed low back pain 11/09/2014 11/10/2014 Inactive [SAVINGS FOR NON -COVERED DRUGS -- BIN:027523, PCN: ASPROD1, Group: XXXXX, ID# [id number], Questions: . THIS IS NOT INSURANCE.] Zorvolex 35 mg capsule RxNorm: 9533610 1 Tablet(s) PO TID 08/27/2014 10/01/2014 Inactive [SAVINGS FOR UNINSURED PATIENTS -- BIN:0 17631, PCN: ASPROD1, Group: [id number], ID# [id number], Process claim through [employer], for questions: . THIS IS NOT INSURANCE.] quinapril 10 mg-hydrochlorothiazide 12.5 mg tablet RxNorm: 3 23129 1 Tablet(s) PO QAM 08/27/2014 11/24/2014 Inactive Lidoderm 5 % (700 mg/patch) adhesive patch RxNorm: 9364528 Application TOP for 12hours then off for pain 08/18/2014 02/21/2015 Inactive [SAVIN GS FOR UNINSURED PATIENTS -- BIN:846202, PCN: ASPROD1, Group: [id number], ID# [id number], Process claim through [employer], for questions: . THIS IS NOT INSURANCE.] Zorvolex 35 mg capsule RxNorm: 0815668 1 Tablet(s) PO TID 08/13/2014 08/12/2014 Inactive Zorvolex 35 mg capsule RxNorm: 2253994 1 Tablet(s) PO TID 08/13/2014 08/24/2014 Inactive [SAVINGS FOR UNINSURED PATIENTS -- BIN:0 66957, PCN: ASPROD1, Group: AME08, ID# [id number], Process claim through [employer], for questions: . THIS IS NOT INSURANCE.] Aspirin Child 81 mg chewable tablet RxNorm: 718895 1 Tablet(s) PO QD No Start Date Active ibuprofen 800 mg tablet RxNorm: 215377 1 Tablet(s) PO T ID as needed low back pain No Start Date 11/08/2014 Inactive cyclobenzaprine 10 mg tablet RxNorm: 073033 1 Tablet(s) PO TID No S tart Date 08/12/2017 Inactive garlic 1,000 mg capsule RxNorm: 212854 1 Capsule(s) PO QD No Start Date 04/22/2019 Inactive tramadol 50 mg tablet RxNorm: 564330 1 Tablet(s) PO Q4-6H as ne eded for pain No Start Date 02/21/2015 Inactive tramadol 50 mg tablet RxNorm: 442818 1 Tablet(s) PO TID as needed for pain along with two tylenol No Start Date 01/07/2019 Inactive krill oil oral RxNorm: 99042 oral No Start Date 11/11/2018 Inacti ve Vitamin D3 2,000 unit tablet RxNorm: 671550 1 Tablet(s) PO QD No St art Date 08/12/2019 Inactive gabapentin 100 mg tablet RxNorm: 106750 1 Tablet(s) PO QD No Start Date 11/10/2014 Inactive Zofran 4 mg tablet RxNorm: 856275 1 Tablet(s) PO Q6H as needed No S tart Date 08/12/2019 Inactive Elimite 5 % topical cream RxNorm: 116570 1 Application TOP QHS apply head to toe and was off in morning No Start Date 05/18/2019 Inactive gabapentin 100 mg capsule RxNorm: 949824 1 Capsule(s) PO QHS No Sta rt Date 11/10/2014 Inactive aspirin 325 mg tablet RxNorm: 884461 2 Tablet(s) PO QD No Start Date 08/17/2014 Inactive Fish Oil 1,000 mg capsule RxNorm: 1 Capsule(s) PO QD No Start Date 10/08/2018 Inactive quinapril 10 mg-hydrochlorothiazide 12.5 mg tablet RxNorm: 3 76884 1 Tablet(s) PO QAM No Start Date 08/26/2014 Inactive quinapril 40 mg tablet RxNorm: 011257 1 Tablet(s) PO QD No Start Da te 10/23/2017 Inactive Medrol (Daniel) 4 mg tablets in a dose pack RxNorm: 671092 Tablet(s) PO As Directed No Start Date 05/05/2018 Inactive Urecholine 25 mg tablet RxNorm: 188867 1 Tablet(s) PO TID No Start Date 11/08/2015 Inactive cyclobenzaprine 10 mg tablet RxNorm: 597558 1/2-1 Table t(s) PO TID as needed for muscle spasm No Start Date 12/01/2014 Inactive tamsulosin 0.4 mg capsule RxNorm: 196867 2 Capsule(s) PO QPM No Sta rt Date 08/12/2019 Inactive hydrocodone 5 mg-acetaminophen 325 mg tablet RxNorm: 607435 1 -2 Tablet(s) PO Q6H as needed No Start Date 05/20/2019 Inactive loratadine 10 mg tablet RxNorm: 601453 1 Tablet(s) PO QD No Start D ate 07/07/2014 Inactive Medication Administered No Medication Administered data Immunizations Vaccine Codes Date Status Influenza CVX: 141 07/21/2019 Results Observation Observation Code Item Item Code Result Date S ervice Location CULTURE, AEROBIC BACTERIA 95129 CULTURE, AEROBIC BACTERIA SEE NOTE 10/30/2019 [facility] [id number] [place] [address] CULTURE, URINE, ROUTINE 395 CULTURE SEE NOTE 1 10/15/[address] [address] CULTURE, URINE, ROUTINE 395 CULTURE, URINE, ROUTINE SEE NOTE 08/15/2019 [facility] [address] [address] CBC (H/H, RBC, INDICES, WBC, PLT) 38180 WHITE BLOOD CELL COU NT 7.9 Thousand/uL 08/14/2019 [facility] [address] [address] CBC (H/H, RBC, INDICES, WBC, PLT) 75374 RED BLOOD CELL COUNT 4.93 Million/uL 08/14/2019 [facility] [address] [address] CBC (H/H, RBC, INDICES, WBC, PLT) 84463 HEMOGLOBIN 15 .4 g/dL 08/14/2019 [facility] [address] [address] CBC (H/H, RBC, INDICES, WBC, PLT) 12975 HEMATOCRIT 45 .0 % 08/14/2019 [facility] [address] [address] CBC (H/H, RBC, INDICES, WBC, PLT) 35100 MCV 91 .3 fL 08/14/2019 [facility] [address] [address] CBC (H/H, RBC, INDICES, WBC, PLT) 76583 MCH 31 .2 pg 08/14/2019 [facility] [address] CBC (H/H, RBC, INDICES, WBC, PLT) 64800 MCHC 34 .2 g/dL 08/14/2019 [facility] [address] CBC (H/H, RBC, INDICES, WBC, PLT) 99232 RDW 12 .7 % 08/14/[address] [facility] [address] CBC (H/H, RBC, INDICES, WBC, PLT) 25724 PLATELET COUNT 214 Thousand/uL 08/14/2019 [facility] [address] CBC (H/H, RBC, INDICES, WBC, PLT) 97144 MPV 11 .5 fL 08/14/2019 [facility] [address] COMPREHENSIVE METABOLIC PANEL 14820 Glucose 113 mg /dL 08/14/2019 [facility] [address] COMPREHENSIVE METABOLIC PANEL 15691 UREA NITROGEN (BUN) 16 mg/dL 08/14/2019 [facility] [address] COMPREHENSIVE METABOLIC PANEL 34954 CREATININE 0.86 m g/dL 08/14/2019 [facility] [address] COMPREHENSIVE METABOLIC PANEL 77166 eGFR NON-AFR. SLOVAK 92 mL/min/1.73m2 08/14/2019 [facility] [address] COMPREHENSIVE METABOLIC PANEL 61328 eGFR 106 mL/min/1.73m2 08/14/2019 [facility] [address] COMPREHENSIVE METABOLIC PANEL 57691 BUN/CREATININE RATIO NOT APPLICABLE (calc) 08/14/2019 [facility] [address] COMPREHENSIVE METABOLIC PANEL 83119 SODIUM 141 mm ol/L 08/14/2019 [facility] [address] COMPREHENSIVE METABOLIC PANEL 24717 POTASSIUM 4.1 mm ol/L 08/14/[address] [address] COMPREHENSIVE METABOLIC PANEL 41263 CHLORIDE 102 mm ol/L 08/14/2019 [facility] [address] COMPREHENSIVE METABOLIC PANEL 52903 CARBON DIOXIDE 28 mmol/L 08/14/2019 [facility] [address] COMPREHENSIVE METABOLIC PANEL 44894 CALCIUM 9.7 mg /dL 08/14/2019 [facility] [address] COMPREHENSIVE METABOLIC PANEL 27245 PROTEIN, TOTAL 6. 7 g/dL 08/14/2019 [facility] [address] COMPREHENSIVE METABOLIC PANEL 53216 ALBUMIN 4.3 g/ dL 08/14/2019 [facility] [address] COMPREHENSIVE METABOLIC PANEL 40144 GLOBULIN 2.4 g/ dL(calc) 08/14/[address] [address] COMPREHENSIVE METABOLIC PANEL 85853 ALBUMIN/GLOBULIN RATIO 1.8 (calc) 08/14/2019 [facility] [address] COMPREHENSIVE METABOLIC PANEL 63948 BILIRUBIN, TOTAL 1.0 mg/dL 08/14/2019 [facility] [address] COMPREHENSIVE METABOLIC PANEL 93340 ALKALINE PHOSPHATASE 56 U/L 08/14/2019 [facility] [address] COMPREHENSIVE METABOLIC PANEL 85839 AST 18 U/L 08/14/2019 [facility] [address] COMPREHENSIVE METABOLIC PANEL 21728 ALT 28 U/L 08/14/[address] [facility] [address] MAGNESIUM 54636 MAGNESIUM 2.0 mg/dL 06/06/2019 [facility] [address] COMPREHENSIVE METABOLIC PANEL 95956 Glucose 106 mg /dL 06/06/[address] [facility] [address] COMPREHENSIVE METABOLIC PANEL 97817 UREA NITROGEN (BUN) 22 mg/dL 06/06/2019 [facility] [address] [address] COMPREHENSIVE METABOLIC PANEL 68300 CREATININE 1.29 m g/dL 06/06/2019 [facility] [address] [address] COMPREHENSIVE METABOLIC PANEL 56197 eGFR NON-AFR. SLOVAK 58 mL/min/1.73m2 06/06/2019 [facility] [address] [address] COMPREHENSIVE METABOLIC PANEL 27342 eGFR 67 mL/min/1.73m2 06/06/2019 [facility] [address] [address] COMPREHENSIVE METABOLIC PANEL 82194 BUN/CREATININE RATIO 17 (calc) 06/06/2019 [facility] [address] [address] COMPREHENSIVE METABOLIC PANEL 25936 SODIUM 138 mm ol/L 06/06/2019 [facility] [address] [address] COMPREHENSIVE METABOLIC PANEL 48833 POTASSIUM 4.2 mm ol/L 06/06/2019 [facility] [address] [address] COMPREHENSIVE METABOLIC PANEL 96124 CHLORIDE 101 mm ol/L 06/06/2019 [facility] [address] [address] COMPREHENSIVE METABOLIC PANEL 74030 CARBON DIOXIDE 29 mmol/L 06/06/2019 [facility] [address] [address] COMPREHENSIVE METABOLIC PANEL 67520 CALCIUM 9.6 mg /dL 06/06/2019 [facility] [address] [address] COMPREHENSIVE METABOLIC PANEL 70624 PROTEIN, TOTAL 6. 9 g/dL 06/06/2019 [facility] [address] [address] COMPREHENSIVE METABOLIC PANEL 56314 ALBUMIN 4.4 g/ dL 06/06/2019 [facility] [address] [address] COMPREHENSIVE METABOLIC PANEL 71892 GLOBULIN 2.5 g/ dL(calc) 06/06/2019 [facility] [address] [address] COMPREHENSIVE METABOLIC PANEL 96146 ALBUMIN/GLOBULIN RATIO 1.8 (calc) 06/06/2019 [facility] [address] [address] COMPREHENSIVE METABOLIC PANEL 59273 BILIRUBIN, TOTAL 0.7 mg/dL 06/06/2019 [facility] [facility] [address] [address] COMPREHENSIVE METABOLIC PANEL 64407 ALKALINE PHOSPHATASE 45 U/L 06/06/2019 [facility] [address] [address] COMPREHENSIVE METABOLIC PANEL 55040 AST 21 U/L 06/06/[address] [address] COMPREHENSIVE METABOLIC PANEL 07161 ALT 34 U/L 06/06/[address] [facility] [address] [address] CULTURE, URINE, ROUTINE 395 CULTURE, URINE, ROUTINE SEE NOTE 04/23/2019 [facility] [address] [address] CULTURE, URINE, ROUTINE 395 CULTURE SEE NOTE 0 04/23/2019 [facility] [address] [address] EXTRA 1014 EXTRA TUBE RECEIVED 04/22 [employer] [facility] [address] [address] EXTRA 1014 SPECIMEN TYPE RECEIVED: LAV 0 04/22/2019 [employer] [address] [address] COMPREHENSIVE METABOLIC PANEL 07329 Glucose 94 mg/ dL 04/22/2019 [facility] [employer] [facility] [address] [address] COMPREHENSIVE METABOLIC PANEL 67428 UREA NITROGEN (BUN) 20 mg/dL 04/22/2019 [facility] [address] [address] COMPREHENSIVE METABOLIC PANEL 42363 CREATININE 1.30 m g/dL 04/22/2019 [facility] [address] [address] COMPREHENSIVE METABOLIC PANEL 67851 eGFR NON-AFR. SLOVAK 58 mL/min/1.73m2 04/22/2019 [employer] [facility] [address] [address] COMPREHENSIVE METABOLIC PANEL 02559 eGFR 67 mL/min/1.73m2 04/22/2019 [facility] [address] COMPREHENSIVE METABOLIC PANEL 44630 BUN/CREATININE RATIO 15 (calc) 04/22/2019 [facility] [address] COMPREHENSIVE METABOLIC PANEL 40679 SODIUM 139 mm ol/L 04/22/2019 [facility] [address] COMPREHENSIVE METABOLIC PANEL 25877 POTASSIUM 4.2 mm ol/L 04/22/2019 [facility] [address] COMPREHENSIVE METABOLIC PANEL 94291 CHLORIDE 104 mm ol/L 04/22/2019 [facility] [address] COMPREHENSIVE METABOLIC PANEL 03167 CARBON DIOXIDE 27 mmol/L 04/22/2019 [facility] [address] COMPREHENSIVE METABOLIC PANEL 94843 CALCIUM 9.9 mg /dL 04/22/2019 [facility] [address] COMPREHENSIVE METABOLIC PANEL 31988 PROTEIN, TOTAL 7. 1 g/dL 04/22/2019 [facility] [address] COMPREHENSIVE METABOLIC PANEL 99769 ALBUMIN 4.6 g/ dL 04/22/2019 [facility] [address] COMPREHENSIVE METABOLIC PANEL 81821 GLOBULIN 2.5 g/ dL(calc) 04/22/2019 [facility] [address] COMPREHENSIVE METABOLIC PANEL 74469 ALBUMIN/GLOBULIN RATIO 1.8 (calc) 04/22/2019 [facility] [address] COMPREHENSIVE METABOLIC PANEL 07173 BILIRUBIN, TOTAL 0.4 mg/dL 04/22/2019 [facility] [address] COMPREHENSIVE METABOLIC PANEL 69729 ALKALINE PHOSPHATASE 53 U/L 04/22/2019 [facility] [address] COMPREHENSIVE METABOLIC PANEL 87505 AST 21 U/L 04/22/[address] [facility] [address] COMPREHENSIVE METABOLIC PANEL 90092 ALT 34 U/L 04/22/2019 [facility]ostics-Stallingssupriya Becerra [address] [place] [address] CULTURE, URINE, ROUTINE 395 CULTURE, URINE, ROUTINE SEE NOTE 01/31/2019 Zay Becerra [address] [place] [address] Procedures Procedure Codes Date CULTURE, AEROBIC BACTERIA CPT-4: 24116 10/27/2019 URINALYSIS NONAUTO W/O SCOPE CPT-4: 59865 10/02/2019 URINE CULTURE/ COLONY COUNT CPT-4: 11074 10/02/2019 ROUTINE VENIPUNCTURE CPT-4: 92162 08/13/2019 URINALYSIS NONAUTO W/O SCOPE CPT-4: 34008 08/13/2019 CULTURE, URINE, ROUTINE CPT-4: 395 08/13/2019 COMPREHENSIVE METABOLIC PANEL CPT-4: 23999 08/13/2019 CBC (H/H, RBC, INDICES, WBC, PLT) CPT-4: 80203 2018 COMPREHENSIVE METABOLIC PANEL CPT-4: 88506 06/05/2019 MAGNESIUM CPT-4: 23766 06/05/2019 DEXAMETHASONE SODIUM PHOS CPT-4: J1100 05/21/2019 THER/PROPH/DIAG INJ SC/IM CPT-4: 67550 05/21/2019 TRIAMCINOLONE ACET INJ NOS CPT-4: J3301 05/21/2019 ROUTINE VENIPUNCTURE CPT-4: 72111 04/21/2019 COMPREHENSIVE METABOLIC PANEL CPT-4: 74846 04/21/2019 EXTRA CPT-4: 1014 04/21/2019 CULTURE, URINE, ROUTINE CPT-4: 395 04/21/2019 URINALYSIS NONAUTO W/O SCOPE CPT-4: 56646 04/21/2019 URINALYSIS NONAUTO W/O SCOPE CPT-4: 17766 01/29/2019 CULTURE, URINE, ROUTINE CPT-4: 395 01/29/2019 DRAIN/INJECT JOINT/BURSA CPT-4: 79490 02/19/2018 TRIAMCINOLONE ACET INJ NOS CPT-4: J3301 02/19/2018 DEXAMETHASONE SODIUM PHOS CPT-4: J1100 02/19/2018 THER/PROPH/DIAG INJ SC/IM CPT-4: 26381 02/12/2018 TRIAMCINOLONE ACET INJ NOS CPT-4: J3301 02/12/2018 DEXAMETHASONE SODIUM PHOS CPT-4: J1100 02/12/2018 CEFTRIAXONE SODIUM INJECTION CPT-4: J0696 12/03/2017 THER/PROPH/DIAG INJ SC/IM CPT-4: 83809 12/03/2017 THER/PROPH/DIAG INJ SC/IM CPT-4: 26031 12/03/2017 METHYLPREDNISOLONE INJECTION CPT-4: J2930 12/03/2017 URINALYSIS NONAUTO W/O SCOPE CPT-4: 59256 08/13/2017 STREP A ASSAY W/OPTIC CPT-4: 38014 02/13/2017 DESTRUCT PREMALG LESION (Cryosurgery) CPT-4: 53639 Vital Signs Date Vital 10/27/2019 Blood Pressure [...] 1: 128/78 Code: 8480-6 BMI: 36.0 Code: 93778-1 Heart Rate 1: 68 bpm Height: 5'7" [...] 1: 138/86 Code: 8480-6 BMI: 35.6 Code: 19985-5 Heart Rate 1: 68 bpm Height: 5'7" SpO2: 95% Temperature: 36.6 (C) / 97.8 (F) Weight: 227 lbs 12/03/2017 Blood Pressure 1: 134/84 Code: 8480-6 BMI: 34.3 Code: 46928-2 Heart Rate 1: 68 bpm Height: 5'7" Respiratory Rate: 20 bpm SpO2: 96% Tempera ture: 35.9 (C) / 96.6 (F) Weight: 219 lbs 09/11/2017 Blood Pressure 1: 140/86 Code: 8480-6 BMI: 34.9 Code: 63742-3 Heart Rate 1: 84 bpm Height: 5'7" Respiratory Rate: 20 bpm SpO2: 95% Tempera ture: 36.7 (C) / 98.1 (F) Weight: 223 lbs 08/13/2017 Blood Pressure 1: 142/94 Code: 8480-6 BMI: 34.5 Code: 04478-6 Heart Rate 1: 76 bpm Height: 5'7" Respiratory Rate: 20 bpm SpO2: 96% Tempera ture: 37.1 (C) / 98.8 (F) Weight: 220 lbs 11/17/2016 Blood Pressure 1: 118/78 Code: 8480-6 art Rate 1: 64 bpm 07/19/2016 Blood Pressure 1: 112/58 Code: 8480-6 BMI: 31.6 Code: 72528-5 Heart Rate 1: 88 bpm Height: 5'7" Respiratory Rate: 22 bpm SpO2: 98% Tempera ture: 36.3 (C) / 97.4 (F) Weight: 202 lbs 06/09/2016 Blood Pressure 1: 138/84 Code: 8480-6 BMI: 32.1 Code: 49108-7 Heart Rate 1: 58 bpm Height: 5'7" Respiratory Rate: 20 bpm SpO2: 97% Tempera ture: 36.6 (C) / 97.8 (F) Weight: 205 lbs 11/08/2015 Blood Pressure 1: 142/80 Code: 8480-6 BMI: 32.4 Code: 73261-6 Heart Rate 1: 76 bpm Height: 5'7" Respiratory Rate: 20 bpm Temperature: 36 .6 (C) / 97.9 (F) Weight: 207 lbs 06/14/2015 Blood Pressure 1: 126/80 Code: 8480-6 Heart Rate 1: 84 bpm Respiratory Rate: 20 bpm Temperature: 36.8 (C) / 98.2 (F) Weight: 206 lbs 05/18/2015 Blood Pressure 1: 124/80 Code: 8480-6 BMI: 32.3 Code: 36672-8 Heart Rate 1: 68 bpm Height: 5'7" Respiratory Rate: 20 bpm Temperature: 36 .4 (C) / 97.6 (F) Weight: 206 lbs 02/22/2015 Blood Pressure 1: 126/78 Code: 8480-6 BMI: 32.1 Code: 98361-2 Heart Rate 1: 76 bpm Height: 5'7" Respiratory Rate: 20 bpm Temperature: 36 .6 (C) / 97.9 (F) Weight: 205 lbs 12/02/2014 Blood Pressure 1: 124/80 Code: 8480-6 BMI: 32.7 Code: 49534-5 Heart Rate 1: 70 bpm Height: 5'7" Respiratory Rate: 18 bpm Temperature: 36 .6 (C) / 97.9 (F) Weight: 209 lbs 08/18/2014 Blood Pressure 1: 132/94 Code: 8480-6 BMI: 34.5 Code: 14961-0 Heart Rate 1: 84 bpm Height: 5'6" Respiratory Rate: 20 bpm Temperature: 36 .6 (C) / 97.9 (F) Weight: 217 lbs 07/08/2014 Blood Pressure 1: 142/88 Code: 8480-6 BMI: 34.3 Code: 38701-6 Heart Rate 1: 72 bpm Height: 5'6" [...] 12/02/2014 skin lesion 08/18/2014 ~generic 07/08/2014 New Patient/[facility] Visit Encounters Encounter Performer Location Codes Date ([id number]) NO CHARGE Diagnosis: Infected sebaceous cyst[ICD10: L72.3] Sapna Johnston [employer] CPT-4: 20671 11/03/2019 ([id number]) OFFICE/OUTPATIENT VISIT EST Diagnosis: Disorder of the skin and subcutaneous tissue, unspecified[ICD10: L98.9] Diagnosis: Infected sebaceous cyst[ICD10: L72.3] Diagnosis: Local infection of the skin and subcutaneous tissue, unspecified[ICD10: L08.9] Lashell Joe SAPNA [employer] CPT-4 : 76835 10/27/2019 ([id number]) OFFICE/OUTPATIENT VISIT EST Diagnosis: Suprapubic abdominal pain[ICD10: R10.2] Diagnosis: Aortic regurgitation[ICD10: I35.1] Sapna GAUTAM [employer] TechnologiesAmarjit [employer] CPT-4: 86066 10/02/2019 ([id number]) OFFICE/OUTPATIENT VISIT EST Diagnosis: Chest pain[ICD10: R07.9] Lashell COATSN MANUELITO [facility] CPT-4: 92071 08/25/2019 ([id number]) OFFICE/OUTPATIENT VISIT EST Diagnosis: Thoracic back pain[ICD10: M54.6] Diagnosis: Disorder of kidney and ureter, unspecified[ICD10: N28.9] Diagnosis: Personal history of nicotine dependence[ICD10: Z87.891] 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 PAULYND EDVIN [employer] [facility] CPT-4: 28193 07/03/2019 ([id number]) OFFICE/OUTPATIENT VISIT EST Diagnosis: Cramp and spasm[ICD10: R25.2] Diagnosis: Disorder of kidney and ureter, unspecified[ICD10: N28.9] Lashell Capps. PAULYNDER [facility] CPT-4: 49178 06/05/2019 ([id number]) OFFICE/OUTPATIENT VISIT EST Diagnosis: Other pruritus[ICD10: L29.8] Diagnosis: Pain in right knee[ICD10: M25.561] Lashell SANCHEZ LOTUS S. PAULYNDER [employer] [facility] CPT-4: 21766 05/21/2019 ([id number]) NURSE/OUTPATIENT VISIT EST Diagnosis: Edema, unspecified[ICD10: R60.9] Sapna CORRAL S. PAULYNDER DO [facility] CPT-4: 80634 04/21/2019 ([id number]) OFFICE/OUTPATIENT VISIT EST Diagnosis: Diverticulitis of large intestine without perforation or abscess without bleeding[ICD10: K57.32] Diagnosis: Snoring[ICD10: R06.83] Diagnosis: Other constipation[ICD10: K59.09] Lashell NICHOLE Geraldine S. PAULYNDER [employer] [facility] CPT-4: 46143 02/24/2019 ([id number]) OFFICE/OUTPATIENT VISIT EST Diagnosis: Diverticulitis of large intestine without perforation or abscess with bleeding[ICD10: K57.33] Nancy BRUNSONLINE Vickie LIVE DO [employer] CPT-4: 11448 02/04/2019 ([id number]) OFFICE/OUTPATIENT VISIT EST Diagnosis: Left lower quadrant pain[ICD10: R10.32] Nancy LIVE DO [facility] CPT-4: 89910 01/29/2019 OFFICE/OUTPATIENT VISIT EST Diagnosis: Dermatitis, unspecified[ICD10: L30.9] Diagnosis: Gastro-esophageal reflux disease without esophagitis[ICD10: K21.9] Diagnosis: Palpitations[ICD10: R00.2] Sapna Calos SAPNA Vickie AU [employer] CPT-4: 56355 12/19/2018 ([id number]) OFFICE/OUTPATIENT VISIT EST Diagnosis: Gastro-esophageal reflux disease without esophagitis[ICD10: K21.9] Diagnosis: Dysphagia, pharyngoesophageal phase[ICD10: R13.14] Sapna Calos SAPNA JefryAmarjit CALOS [employer] CPT-4: 11846 11/11/2018 ([id number]) PREV VISIT EST AGE 40-64 Diagnosis: Encounter [...] system[ICD10: K91.89] Lashell CORRAL JefryAmarjit CALOS MARIE [employer] CPT-4: 99 396 10/09/2018 ([id number]) OFFICE/OUTPATIENT VISIT EST Diagnosis: Pain in right knee[ICD10: M25.561] Diagnosis: Pain in right hip[ICD10: M25.551] Lashell Chandler JefryAmarjit PAULYDOMINICEDVIN [facility] CPT-4: 94821 02/12/2018 OFFICE/OUTPATIENT VISIT EST Diagnosis: Essential (primary) hypertension[ICD10: I10] Diagnosis: Other chest pain[ICD10: R07.89] Lashell LIVE DO [facility] CPT-4: 54426 12/03/2017 ([id number]) OFFICE/OUTPATIENT VISIT EST Diagnosis: Essential (primary) hypertension[ICD10: I10] Sapna LIVE [facility] CPT-4: 86394 09/11/2017 ([id number]) PREV VISIT EST AGE 40-64 Diagnosis: Encounter for general adult medical examination without abnormal findings[ICD10: Z00.00] Diagnosis: Essential (primary) hypertension[ICD10: I10] Diagnosis: Left lower quadrant pain[ICD10: R10.32] Diagnosis: Left upper quadrant pain[ICD10: R10.12] Diagnosis: Other intervertebral disc degeneration, 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] Sapna LIVE [facility] CPT-4: 51492 08/13/2017 ([id number]) OFFICE/OUTPATIENT VISIT EST Diagnosis: Acute pharyngitis, unspecified[ICD10: J02.9] Sapna LIVE [facility] CPT-4: 52790 02/13/2017 ([id number]) PREV VISIT EST AGE 40-64 Diagnosis: Encounter for general adult medical examination without abnormal findings[ICD10: Z00.00] Diagnosis: Essential (primary) hypertension[ICD10: I10] 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 PAULYNDER DO [facility] CPT-4: 48916 11/08/2015 ([id number]) OFFICE/OUTPATIENT VISIT EST Diagnosis: DERMATITIS NOS[ICD9: 692.9] Diagnosis: SEBACEOUS CYST[ICD9: 706.2] Sapna Capps. O RENDER DO [facility] CPT-4: 08517 06/14/2015 OFFICE/OUTPATIENT VISIT EST Diagnosis: LOCAL SKIN INFECTION[ICD9: 686.9] Diagnosis: FOLLICULITIS[ICD9: 704.8] Chelsie Capps. PAULY NDER DO [facility] CPT-4: 06720 05/18/2015 ([id number]) OFFICE/OUTPATIENT VISIT EST Diagnosis: Constipation[ICD9: 564.00] Sapna BRUNSONLINE Jefry. CANDICE AU DO [facility] CPT-4: 75647 02/22/2015 ([id number]) OFFICE/OUTPATIENT VISIT EST Diagnosis: Thoracic back pain[ICD9: 724.1] Diagnosis: Thoracic degenerative disc disease[ICD9: 722.51] Diagnosis: Scoliosis[ICD9: 737.30] Sapna Capps. PAULYND ER DO [facility] CPT-4: 30758 12/02/2014 ([id number]) OFFICE/OUTPATIENT VISIT EST Diagnosis: Thoracic back pain[ICD9: 724.1] Diagnosis: ACTINIC KERATOSIS[ICD9: 702.0] Sapna BRUNSONLINE Jefry Amarjit HITESHER DO [facility] CPT-4: 67819 08/18/2014 OFFICE/OUTPATIENT VISIT NEW Diagnosis: HYPERTENSION[ICD9: 401.9] Diagnosis: Thoracic back pain[ICD9: 724.1] Diagnosis: GERD[ICD9: 530.81] Diagnosis: Adrenal tumor[ICD9: 239.7] Sapna BRUNSONLINE Jefry. OR ANGELY DO [facility] CPT-4: 44430 07/08/2014 ([id number]) OFFICE/OUTPATIENT VISIT NEW Diagnosis: HYPERTENSION[ICD9: 401.9] Diagnosis: GERD[ICD9: 530.81] Sapna BRUNSONLINE JefryAmarjit PAULYNDER DO [facility] CPT-4: 14131 07/08/2014 Plan of Care Planned Activity Notes Codes Status Date Visit Diagnosis Plan: Infected sebaceous cyst Discussi on: Sent out 1 week of doxycycline ICD-9 : 706.2 ICD-10 : L72.3 11/03/2019 Visit Diagnosis Plan: Local infection of [...] ICD-10 : L08.9 10/27/2019 Appointment: Lashell Joe [place] [facility] ACUTE ILLNESS 10/27/2019 Patient Education: tramadol- [employer] Coupon [id number] [email or web address].[employer]/samplemd/resources/getResource/61/[email or web address] Completed 10/27/2019 Visit Plan: Update Low Dose [...] I35.1 10/02/2019 Appointment: Sapna Live WPtel: [phone] [facility] FOLLOW UP 10/02/2019 Care Plan: Referral Order SNOMED-CT : 30 [id number] Pending 10/02/2019 Visit Diagnosis Plan: Chest pain Discussion: will star t with cxray and rib xray. discussed that could be lung, rib, muscle but will start with cxray and patient may need echo. he verbalized understanding. ICD-9 : 786.50 ICD-10 : R07.9 08/25/2019 Appointment: Lashell Joe [place] [facility] ACUTE ILLNESS 08/25/2019 Visit Diagnosis Plan: Adrenal [...] ct of lungs to be done at [facility]. ICD-9 : V15.82 ICD-10 : Z87.891 08/13/2019 Visit Diagnosis Plan: Thoracic back pain Discussion: c hronic pain. will refer to dr. stallings at [facility] for evaluation and treatment ICD-9 : 724.1 [...] ICD-10 : N28.9 08/13/2019 Appointment: Lashell Joe [address] [place], [place] [id number] 08/13/2019 Visit Diagnosis Plan: Renal insufficiency Discussion: Labs discussed Continue off NSAIDS Hydrate Recheck Chemistry 3mos ICD-9 : 593.9 ICD-10 : N28.9 07/03/2019 Visit Diagnosis Plan: Sigmoid diverticulitis Discussio n: Bactrim/Flagyl [place] diet To ER this weekend if worsening ICD-9 : 562.11 ICD-10 : K57.32 07/03/2019 Visit Diagnosis Plan: Jock itch Discussion: Diflucan a nd topical nystatin ICD-9 : 110.3 ICD-10 : B35.6 07/03/2019 Appointment: Sapna Live WPtel: [phone] [place] [id number] US FOLLOW UP 07/03/2019 Patient Education: fluconazole- [employer] Coupon [id number] Completed 07/03/2019 Patient Education: nystatin- [employer] Coupon [id number] Completed 07/03/2019 Visit Diagnosis Plan: Disorder of [...] ICD-10 : R25.2 06/05/2019 Appointment: Lashell Joe [address] [place], [place] [id number] NO SHOW - FORGIVEN 06/05/2019 Appointment: Lashell Joe [address] [place], [place] [phone] ACUTE ILLNESS 06/05/2019 Visit Diagnosis Plan: Other [...] ICD-10 : M25.561 05/21/2019 Appointment: Lashell Joe [address] [place], [place] [address] ACUTE ILLNESS 05/21/2019 Patient Education: hydroxyzine HCl- [employer] Coupon [id number] https://www.[employer]icky/samplemd/resources/getResource/61/[email or web address] Completed 05/21/2019 Appointment: Sapna LiveAmarjit WPtel: [phone] [facility] 05/19/19 1645---see note put in chart today (km) CANCELED 05/19/2019 Appointment: Sapna LiveAmarjit WPtel: [phone] [facility] CANCELED 05/05/2019 Appointment: Sapna LiveAmarjit WPtel: [phone] [facility] US UA 04/21/2019 Visit Diagnosis Plan: Snoring [...] : K59.09 02/24/2019 Appointment: Lashell Joe [address] Follow Up 02/24/2019 Visit Diagnosis Plan: Diverticulitis of large intestine without perforation or abscess with bleeding Discussion: Continue flagyl and cipro. A dvance diet to bland. BRAT diet advised. Avoid nuts, seeds, popcorn, roughage. RTC if abdominal pain worsens or does not improve. ICD-9 : 562.13 ICD-10 : K57.33 02/04/2019 Appointment: Nancy Mendiola [address] FOLLOW UP 02/04/2019 Visit Diagnosis Plan: [...] ICD-10 : R10.32 01/29/2019 Appointment: Nancy Mendiola [facility] [address] ACUTE ILLNESS 01/29/2019 Care Plan: CT [...] : L30.9 12/19/2018 Appointment: Sapna Live WPtel: [address] [place], [place] [phone] ACUTE ILLNESS 12/19/2018 Visit Diagnosis Plan: Gastro-esophageal reflux disease without esophagitis Discussion: Continue protonix at 40mg daily Hold mobic No NSAIDS Hold all MVs If persists then will need EGD ICD-9 : 530.81 ICD-10 : K21.9 11/11/2018 Appointment: Sapna Live WPtel: [address] [place], [place] [phone] FOLLOW UP 11/11/2018 Visit Diagnosis Plan: Encounter for gene [facility] adult medical examination without abnormal findings [...] ICD-10 : Z12.2 10/09/2018 Appointment: Lashell Joe [address] [place], [place] [id number] Annual Well Visit 10/09/2018 Patient Education: gabapentin- [employer] Coupon [id number] Completed 10/09/2018 Patient Education: Kegerardo Wilson Comple catalina 10/09/2018 Patient Education: High Blood Pressure Co mpleted 10/09/2018 Visit Diagnosis Plan: Pain in right knee Discussion: c orticosteroid injection administered as described above. patient tolerated well. instructed to rtc in 3- 4 months if needed for additional injection. ICD-9 : 719.46 ICD-10 : M25.561 02/19/2018 Appointment: Lashell Joe [facility] OFFICE SURGERY 02/19/2018 Patient Education: Patient Medication [...] ICD-10 : M25.561 02/12/2018 Appointment: Lashell Joe [address] [place], [place] [phone] ACUTE ILLNESS 02/12/2018 Patient Education: Patient Medication Summary Completed 02/12/2018 Care Plan: X-RAY EXAM OF KNEE 1 [place] 2 [place] : [address]0 Pending 02/12/2018 Visit Diagnosis Plan: Other chest [...] ICD-10 : I10 12/03/2017 Appointment: Lashell Joe [address] [place], [place] [address] ESTABLISHED PATIENT 12/03/2017 Patient Education: Patient Medication Summary Completed 12/03/2017 Visit Diagnosis Plan: Essential (primary) hypertension Discussion: Increase quinapril to 40mg daily BP check in 1month ICD-9 : 401.9 ICD-10 : I10 09/11/2017 Appointment: Sapna Live WPtel: [address] [place] [address] FOLLOW UP 09/11/2017 Patient Education: Patient Medication Summary Completed 09/11/2017 Appointment: Sapna Live WPtel: [address] [place] [address] US RESCHEDULED 08/22/2017 Visit Diagnosis Plan: Left lower quadrant pain Discuss ion: Update colonoscopy ICD-9 : 789.04 ICD-10 : R10.32 08/13/2017 Visit Diagnosis Plan: Essential (primary) hypertension Discussion: Increase quinapril to 20mg daily Follow Up: 1 months ICD-9 : 401.9 ICD-10 : I10 08/13/2017 Visit Diagnosis Plan: Encounter for [facility] adult medical examination without abnormal findings Discussion: Update fasting lab ICD-9 : V70.9 ICD-10 : Z00.00 08/13/2017 Appointment: Sapna Livetel: [address] [place] [address] Annual Well Visit 08/13/2017 Patient Education: Patient Medication Summary Completed 08/13/2017 Appointment: Sapna Livetel: [address] [place] [address] THROAT SWAB 02/13/2017 Patient Education: Patient Medication Summary Completed 02/13/2017 Appointment: Sapna Livetel: [address] [place], [place] [phone] BP CHECK 11/17/2016 Patient Education: Patient Medication Summary Completed 11/17/2016 Visit Plan: Due for colonoscopy in 2018 Had shingles shot and flu shot Change quinapril hct to plain quinapril and see if muscles twitches improve Fwup with Dr. Braga Lab discussed Discussed diet/exercise at length Check CT abdomen Recheck 3mos 07/19/2016 Appointment: Sapna Live WPtel: [address] [place] [address] 07/18 confirmed`sl PHYSICAL 07/19/2016 Patient Education: Patient [...] earliest convenience 06/09/2016 Appointment: Sobia Monreal WPtel: [address] [place] [address] ACUTE ILLNESS 06/09/2016 Patient Education: Patient Medication Summary Completed 06/09/2016 Referral: Demario Braga WPtel: [address] [place] [address] Referral Initiated 11/12/2015 Visit Plan: Continue indwelling catheter until follow-up with Dr. Braga Continue Bactrim and Cipro Pyridium TID for Bladder spasms 11/08/2015 Appointment: Chelsie Teixeira WPtel: [address] [place] [address] ER Follow UP 11/08/2015 Patient Education: Patient Medication Summary Completed 11/08/2015 Referral: Abdiel Tucker WPtel: [address] [place] [address] Referral Initiated 06/21/2015 Visit Plan: Prednisone 20mg daily for 1w naknek See surgery of cyst removal 06/14/2015 Appointment: Sapna Live WPtel: [address] [place] [address] 06/11 cn 06/14 cn FOLLOW UP 2014 Patient Education: Patient Medication Summary Completed 06/14/2015 Visit Plan: Warm moist compresses to Lef t shoulder lesion and apply topical Mupirocin twice daily Complete Cephalexin x 7 days as directed Resume Culturelle daily 05/18/2015 Appointment: Chelsie Teixeira WPtel: [address] [place] [address] ACUTE ILLNESS 05/18/2015 Patient Education: Patient Medication Summary Completed 05/18/2015 Visit Plan: Check fasting lab Use pain m eds prn with miralax on the day that takes pain meds 02/22/2015 Appointment: Sapna Live WPtel: [address] [place] [address] 02/19 [facility] 02/19 appt confirmed-lb ACUTE ILLNESS 5 Patient Education: Patient Medication Summary Completed 02/22/2015 Visit Plan: Increase neurontin to 300mg q HS Continue flexeril and tramadol Call in 1mo on how higher dose of gabapentin 12/02/2014 Appointment: Sapna Live WPtel: [address] [place] [address] FOLLOW UP 12/02/2014 Patient Education: Patient Medication Summary Completed 12/02/2014 Referral: Eric Angelo WPtel: [address] [place] [address] Referral Appointment Confirmed 09/15/2014 Visit Plan: Proceed with pain doctor for possible injection vs nerve block Trial of lidoderm patch Cryotherapy to lesions as above 08/18/2014 Appointment: Sapna Live WPtel: [address] [place] [address] ACUTE ILLNESS 08/18/2014 Patient Education: Patient Medication Summary Completed 08/18/2014 Patient Education: Patient Medication Summary Completed 08/13/2014 Visit Plan: Continue current meds Obtain most recent lab results Check thoracic spine x-rays Needs updated CT scan of adrenal tumor 07/08/2014 Appointment: Sapna Live WPtel: [phone] [id number] 07/07 vm NEW PATIENT 07/08/2014 Patient Education: Patient Medication Summary Completed 07/08/2014 Patient Education: Patient Medication Summary Completed 07/08/2014 Referral: Suhail Cardensa WPtel: [phone] [id number] [place] Referral Completed Referral: Toby Bettencourt WPtel: [address] [place] [address] [address] [id number] [place] Referral Completed Referral: Rosario Monahan WPtel: [phone] [facility] [address] [place] Referral Appointment [...]
--- OUTSIDE RECORDS SUMMARY | 2020-02-05 07:53 | XMS REPORT | CCD ---
Author Author Jai Live D.O. 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 Name Role Phone Sapna Live D.O., PP Unavailable CCM Unavailable Summary Purpose Interface Exchange Insurance Providers Payer name Policy type / Coverage type Covered republican ID Effective Begin Date Effective End Date GPA Commercial Insurance [id number] 2019 Unknown Family history Mother Diagnosis Age At Onset Cancer Unknown Father Diagnosis Age At Onset Congestive heart failure Unknown Coronary Artery Disease(CAD) Unknown Social History Social History Element Codes Description Effective Dates Tobacco history SNOMED CT: 7751451 Former smoker 10/09/2018 Marital status Unknown 07/08/2014 Number of children Unknown 1 07/08/2014 Employment Unknown Currently employed [employer] 07/08/[address]: 277424275 Never drinks alcohol 2013 Has the patient [...] Instructions doxycycline hyclate 100 mg capsule RxNorm: 3150777 1 Cap lee(s) Oral two times a day 11/03/2019 11/10/2019 Active doxycycline hyclate 100 mg capsule RxNorm: 8262352 1 Cap lee(s) Oral two times a day 11/03/2019 11/02/2019 Inactive tramadol 50 mg tablet RxNorm: 337277 1 Tablet(s) Oral t hree times a day as needed for pain along with two tylenol 10/27/2019 10/27/2019 Inactive cyclobenzaprine 10 mg tablet RxNorm: 481748 1 Tablet(s) Oral th ree times a day 10/27/2019 No Stop Date Active Bactrim DS 800 mg-160 mg tablet RxNorm: 986017 1 Tablet(s) Oral two times a day 10/27/2019 11/03/2019 Inactive tramadol 50 mg tablet RxNorm: 489290 1 Tablet(s) Oral t hree times a day as needed for pain along with two tylenol 10/27/2019 10/26/2019 Inactive Bactrim DS 800 mg-160 mg tablet RxNorm: 559357 1 Tablet(s) Oral two times a day 10/27/2019 10/26/2019 Inactive tramadol 50 mg tablet RxNorm: 857998 1 Tablet(s) Oral t hree times a day as needed for pain along with two tylenol 09/29/2019 10/26/2019 Inactive quinapril 40 mg tablet RxNorm: 402705 1 Tablet(s) Oral QD 09/18/2019 03/15/2020 Active Patient requests 90 days supply tramadol 50 mg tablet RxNorm: 969604 1 Tablet(s) Oral t hree times a day as needed for pain along with two tylenol 08/28/2019 08/28/2019 Inactive tramadol 50 mg tablet RxNorm: 656983 1 Tablet(s) PO TID as needed for pain along with two tylenol 08/25/2019 08/27/2019 Inactive pantoprazole 40 mg tablet,delayed release RxNorm: 340125 1 Tabl et(s) Oral QD 08/13/2019 No Stop Date Active Vitamin D3 1,000 unit capsule RxNorm: 483258 1 Capsule(s) Oral QD 1 10/13/2018 No Stop Date Active tamsulosin 0.4 mg capsule RxNorm: 997245 1 Capsule(s) Oral QPM 07/26 No Stop Date Active Protonix 40 mg tablet,delayed release RxNorm: 360694 TA KE 1 TABLET BY MOUTH TWICE A DAY 08/04/2019 08/12/2019 Inactive Flagyl 500 mg tablet RxNorm: 267381 1 Tablet(s) Oral three time s a day 07/03/2019 07/13/2019 Inactive fluconazole 100 mg tablet RxNorm: 739507 1 Tablet(s) Oral QD 201807/10/2019 Inactive Bactrim DS 800 mg-160 mg tablet RxNorm: 030567 1 Tablet(s) Oral two times a day 07/03/2019 07/13/2019 Inactive nystatin 100,000 unit/gram topical cream RxNorm: 221746 Application Topical two times a day 07/03/2019 08/12/2019 Inactive gabapentin 600 mg tablet RxNorm: 546127 Tablet(s) TAKE 1 TABLET BY MOUTH EVERY NIGHT AT BEDTIME 06/25/2019 08/12/2019 Inactive - First Attempt Ref: [id number] quinapril 40 mg tablet RxNorm: 862160 1 Tablet(s) Oral QD 06/23/2019 09/17/2019 Inactive Patient requests 90 days supply tramadol 50 mg tablet RxNorm: 407709 1 Tablet(s) PO TID as needed for pain along with two tylenol 05/23/2019 08/24/2019 Inactive hydroxyzine HCl 25 mg tablet RxNorm: 253563 1 Tablet(s) PO TID as needed 05/21/2019 08/12/2019 Inactive Elimite 5 % topical cream RxNorm: 828769 1 Application TOP QHS apply head to toe and was off in morning 05/19/2019 07/02/2019 Inactive Protonix 40 mg tablet,delayed release RxNorm: 680649 1 Tablet(s ) PO BID 05/05/2019 08/02/2019 Inactive - First Attempt Ref: [id number] gabapentin 600 mg tablet RxNorm: 001194 Tablet(s) TAKE 1 TABLET BY MOUTH EVERY NIGHT AT BEDTIME 04/25/2019 06/24/2019 Inactive - First Attempt Ref: [id number] tramadol 50 mg tablet RxNorm: 929398 1 Tablet(s) PO TID as needed for pain along with two tylenol 04/21/2019 05/22/2019 Inactive quinapril 40 mg tablet RxNorm: 418221 1 Tablet(s) PO QD 04/01/2019 Inactive Patient requests 90 days supply fenofibrate micronized 134 mg capsule RxNorm: 763888 1 Capsule(s) PO QD Due for updated fasting labs 03/31/2019 08/12/2019 Inactive dicyclomine 10 mg capsule RxNorm: 451859 1 Capsule(s) PO TID as needed 02/24/2019 05/20/2019 Inactive Flagyl 500 mg tablet RxNorm: 462904 1 Tablet(s) PO Q8H 02/24/201908/2019 Inactive ciprofloxacin 500 mg tablet RxNorm: 762479 1 Tablet(s) PO BID 02/2403/09/2019 Inactive Flagyl 500 mg tablet RxNorm: 130611 1 Tablet(s) PO Q6H 01/30/2019 Inactive ciprofloxacin 500 mg tablet RxNorm: 743655 1 Tablet(s) PO BID 01/3001/29/2019 Inactive Flagyl 500 mg tablet RxNorm: 209083 1 Tablet(s) PO Q6H 01/30/201904/2019 Inactive ciprofloxacin 500 mg tablet RxNorm: 063526 1 Tablet(s) PO BID 01/3002/05/2019 Inactive gabapentin 600 mg tablet RxNorm: 299303 TAKE 1 TABLET B Y MOUTH EVERY NIGHT AT BEDTIME 01/27/2019 04/24/2019 Inactive - First Attempt Ref: [id number] tramadol 50 mg tablet RxNorm: 491440 1 Tablet(s) PO TID as needed for pain along with two tylenol 01/08/2019 04/20/2019 Inactive fenofibrate micronized 134 mg capsule RxNorm: 278073 1 Capsule(s) PO QD Due for updated fasting labs 01/02/2019 03/30/2019 Inactive quinapril 40 mg tablet RxNorm: 346313 1 Tablet(s) PO QD 01/01/2019 Inactive Patient requests 90 days supply Protonix 40 mg tablet,delayed release RxNorm: 945274 TA KE 1 TABLET BY MOUTH TWICE A DAY 01/01/2019 03/31/2019 Inactive - First Attempt Ref: [id number] Protonix 40 mg tablet,delayed release RxNorm: 895717 TA KE 1 TABLET BY MOUTH TWICE A DAY 12/25/2018 12/31/2018 Inactive - First Attempt Ref: [id number] gabapentin 600 mg tablet RxNorm: 734129 TAKE 1 TABLET B Y MOUTH EVERY NIGHT AT BEDTIME 12/02/2018 01/26/2019 Inactive - First Attempt Ref: [id number] Protonix 40 mg tablet,delayed release RxNorm: 960764 1 Tablet(s ) PO BID 11/11/2018 12/24/2018 Inactive Protonix 40 mg tablet,delayed release RxNorm: 658675 1 Tablet(s ) PO BID 10/09/2018 11/10/2018 Inactive gabapentin 600 mg tablet RxNorm: 184382 1 Tablet(s) PO QHS 10/09/1912/01/2018 Inactive quinapril 40 mg tablet RxNorm: 711779 1 Tablet(s) PO QD 1 TABLE T(S) PO QD 08/08/2018 08/07/2018 Inactive Patient requests 9 0 days supply quinapril 40 mg tablet RxNorm: 865230 1 Tablet(s) PO QD 08/08/2018 Inactive Patient requests 90 days supply meloxicam 15 mg tablet RxNorm: 775705 1 Tablet(s) PO QD 08/08/2018 Inactive gabapentin 300 mg capsule RxNorm: 670241 1 CAPSULE(S) P O QHS DUE FOR WELLNESS VISIT 08/07/2018 10/08/2018 Inactive due for followup meloxicam 15 mg tablet RxNorm: 872378 Tablet(s) 1 TABLET(S) PO QD 1 10/07/2017 08/07/2018 Inactive fenofibrate micronized 134 mg capsule RxNorm: 681201 1 Capsule(s) PO QD Needs updated fasting labs!!!!!! 07/08/2018 07/07/2018 Inactive fenofibrate micronized 134 mg capsule RxNorm: 615067 1 Capsule( s) PO QD 07/08/2018 01/01/2019 Inactive fenofibrate micronized 134 mg capsule RxNorm: 495941 1 Capsule(s) PO QD Needs updated fasting labs!!!!!! 06/21/2018 07/08/2018 Inactive Medrol (Daniel) 4 mg tablets in a dose pack RxNorm: 578724 Tablet(s) PO As Directed 05/06/2018 05/05/2018 Inactive Medrol (Daniel) 4 mg tablets in a dose pack RxNorm: 835739 Tablet(s) PO As Directed 05/06/2018 08/07/2018 Inactive quinapril 40 mg tablet RxNorm: 920585 1 TABLET(S) PO QD 05/02/2018 Inactive Patient requests 90 days supply fenofibrate micronized 134 mg capsule RxNorm: 158684 1 Capsule(s) PO QD Needs updated fasting labs 04/29/2018 05/28/2018 Inactive Move Free Joint Health 750 mg-100 mg-1.65 mg-108 mg tablet R xNorm: 1 Tablet(s) PO QD 02/12/2018 03/13/2018 Inactive fenofibrate micronized 134 mg capsule RxNorm: 452392 Ca psule(s) 1 CAPSULE(S) PO QD 01/29/2018 06/21/2018 Inactive quinapril 40 mg tablet RxNorm: 236038 1 TABLET(S) PO QD 11/26/2017 Inactive Patient requests 90 days supply fenofibrate micronized 134 mg capsule RxNorm: 981964 1 CAPSULE( S) PO QD 11/06/2017 01/29/2018 Inactive gabapentin 300 mg capsule RxNorm: 206931 1 CAPSULE(S) P O QHS DUE FOR WELLNESS VISIT 10/24/2017 07/20/2018 Inactive due for followup meloxicam 15 mg tablet RxNorm: 243238 1 TABLET(S) PO QD 10/24/2017 Inactive quinapril 40 mg tablet RxNorm: 918396 1 Tablet(s) PO QD 10/24/2017 Inactive fenofibrate micronized 134 mg capsule RxNorm: 268342 1 Capsule( s) PO QD 08/22/2017 11/05/2017 Inactive fenofibrate micronized 134 mg capsule RxNorm: 623984 1 Capsule( s) PO QD 08/22/2017 08/21/2017 Inactive quinapril 20 mg tablet RxNorm: 538363 1 Tablet(s) PO QD 08/13/2017 Inactive gabapentin 300 mg capsule RxNorm: 636427 1 Capsule(s) P O QHS Due for wellness visit 08/06/2017 10/23/2017 Inactive due for followup gabapentin 300 mg capsule RxNorm: 149073 1 Capsule(s) P O QHS Due for wellness visit 08/02/2017 08/05/2017 Inactive due for followup meloxicam 15 mg tablet RxNorm: 442403 1 Tablet(s) PO QD 08/01/2017 Inactive gabapentin 300 mg capsule RxNorm: 962895 1 Capsule(s) P O QHS Due for wellness visit 08/01/2017 08/01/2017 Inactive due for followup gabapentin 300 mg capsule RxNorm: 439475 1 Capsule(s) P O QHS Due for wellness visit 08/01/2017 08/02/2017 Inactive gabapentin 300 mg capsule RxNorm: 758172 1 Capsule(s) PO QHS 201605/12/2017 Inactive quinapril 10 mg tablet RxNorm: 306306 1 Tablet(s) PO QD replace s quinapril hct 02/12/2017 08/12/2017 Inactive meloxicam 15 mg tablet RxNorm: 027083 1 Tablet(s) PO QD 02/05/2017 Inactive quinapril 10 mg tablet RxNorm: 245947 1 Tablet(s) PO QD replace s quinapril hct 11/16/2016 02/12/2017 Inactive gabapentin 300 mg capsule RxNorm: 500900 1 Capsule(s) PO QHS 201602/12/2017 Inactive quinapril 10 mg tablet RxNorm: 790308 1 Tablet(s) PO QD replace s quinapril hct 10/16/2016 11/15/2016 Inactive gabapentin 300 mg capsule RxNorm: 864557 1 Capsule(s) PO QHS 201511/15/2016 Inactive quinapril 10 mg tablet RxNorm: 604254 1 Tablet(s) PO QD replace s quinapril hct 07/19/2016 10/15/2016 Inactive meloxicam 15 mg tablet RxNorm: 710651 1 Tablet(s) PO QD 07/10/2016 Inactive meloxicam 15 mg tablet RxNorm: 781699 TAKE ONE TABLET BY MOUTH LUKE Y 07/10/2016 07/09/2016 Inactive meloxicam 15 mg tablet RxNorm: 834233 1 Tablet(s) PO QD 07/06/2016 Inactive meloxicam 15 mg tablet RxNorm: 039856 1 Tablet(s) PO QD 06/09/2016 Inactive Multivitamin & Mineral Formula tablet RxNorm: 1 Tablet(s) PO Q D 06/02/2016 07/01/2016 Inactive tamsulosin 0.4 mg capsule RxNorm: 513753 1 Capsule(s) PO QHS 201507/01/2016 Inactive Move Free Joint Health 750 mg-100 mg-1.65 mg-108 mg tablet R xNorm: 1 Tablet(s) PO QD 06/02/2016 07/01/2016 Inactive gabapentin 300 mg capsule RxNorm: 408629 1 Capsule(s) PO QHS 201508/27/2016 Inactive gabapentin 300 mg capsule RxNorm: 035307 Capsule(s) ALFONZO E ONE CAPSULE BY MOUTH AT BEDTIME 02/28/2016 05/27/2016 Inactive quinapril 10 mg-hydrochlorothiazide 12.5 mg tablet RxNorm: 3 49293 Tablet(s) TAKE ONE TABLET BY MOUTH EVERY MORNING 01/14/2016 07/18/2016 Inactive gabapentin 300 mg capsule RxNorm: 145583 TAKE ONE CAPSULE BY [facility] AT BEDTIME 12/28/2015 02/27/2016 Inactive Urecholine 25 mg tablet RxNorm: 726633 1 Tablet(s) PO TID 11/09/2015 07/18/2016 Inactive phenazopyridine 100 mg tablet RxNorm: 0606339 1 Tablet(s ) PO TID as needed for bladder spasms. 11/08/2015 11/08/2015 Inactive quinapril 10 mg-hydrochlorothiazide 12.5 mg tablet RxNorm: 3 09210 TAKE ONE TABLET BY MOUTH EVERY MORNING 10/15/2015 01/13/2016 Inactive gabapentin 300 mg capsule RxNorm: 190229 1 Tablet(s) PO QD TAKE ONE CAPSULE BY MOUTH EVERY NIGHT AT BEDTIME 09/23/2015 12/21/2015 Inactive quinapril 10 mg-hydrochlorothiazide 12.5 mg tablet RxNorm: 3 50611 Tablet(s) TAKE ONE TABLET BY MOUTH EVERY MORNING 07/14/2015 10/14/2015 Inactive gabapentin 300 mg capsule RxNorm: 934837 1 Tablet(s) PO QD TAKE ONE CAPSULE BY MOUTH EVERY NIGHT AT BEDTIME 06/25/2015 09/23/2015 Inactive prednisone 20 mg tablet RxNorm: 455646 1 Tablet(s) PO QD 06/14/2015 0 06/20/2015 Inactive cephalexin 500 mg capsule RxNorm: 430872 1 Capsule(s) PO BID 201405/27/2015 Inactive mupirocin 2 % topical ointment RxNorm: 953558 TOP BID 05/18/2015 0 06/13/2015 Inactive quinapril 10 mg-hydrochlorothiazide 12.5 mg tablet RxNorm: 3 41974 Tablet(s) TAKE ONE TABLET BY MOUTH EVERY MORNING 04/06/2015 07/14/2015 Inactive gabapentin 300 mg capsule RxNorm: 174005 1 Capsule(s) PO QHS 201404/01/2015 Inactive [SAVINGS FOR NON-COVERED LILIANA GS -- BIN:920060, PCN: ASPROD1, Group: XXXXX, ID# [id number], Questions: . THIS IS NOT INSURANCE.] gabapentin 300 mg capsule RxNorm: 620769 1 Capsule(s) PO QHS 201406/25/2015 Inactive [SAVINGS FOR NON-COVERED LILIANA GS -- BIN:723527, PCN: ASPROD1, Group: XXXXX, ID# [id number], Questions: . THIS IS NOT INSURANCE.] quinapril 10 mg-hydrochlorothiazide 12.5 mg tablet RxNorm: 3 22983 TAKE ONE TABLET BY MOUTH EVERY MORNING 12/11/2014 04/05/2015 Inactive gabapentin 300 mg capsule RxNorm: 091958 1 Capsule(s) PO QHS 201404/02/2015 Inactive [SAVINGS FOR NON-COVERED LILIANA GS -- BIN:459932, PCN: ASPROD1, Group: XXXXX, ID# [id number], Questions: . THIS IS NOT INSURANCE.] cyclobenzaprine 10 mg tablet RxNorm: 776815 1 Tablet(s) PO TID as needed for muscle spasm for muscle spasm 12/02/2014 02/21/2015 Inactive [S AVINGS FOR NON- COVERED DRUGS -- BIN:173785, PCN: ASPROD1, Group: XXXXX, ID# [id number], Questions: . THIS IS NOT INSURANCE.] gabapentin 100 mg capsule RxNorm: 298340 1 Capsule(s) PO QHS 201412/01/2014 Inactive [SAVINGS FOR NON-COVERED LILIANA GS -- BIN:162450, PCN: ASPROD1, Group: XXXXX, ID# [id number], Questions: . THIS IS NOT INSURANCE.] ibuprofen 800 mg tablet RxNorm: 012863 1 Tablet(s) PO T ID as needed low back pain 11/11/2014 11/23/2014 Inactive [SAVINGS FOR NON -COVERED DRUGS -- BIN:984806, PCN: ASPROD1, Group: XXXXX, ID# [id number], Questions: . THIS IS NOT INSURANCE.] ibuprofen 800 mg tablet RxNorm: 233589 1 Tablet(s) PO T ID as needed low back pain 11/09/2014 11/10/2014 Inactive [SAVINGS FOR NON -COVERED DRUGS -- BIN:046662, PCN: ASPROD1, Group: XXXXX, ID# [id number], Questions: . THIS IS NOT INSURANCE.] Zorvolex 35 mg capsule RxNorm: 9079854 1 Tablet(s) PO TID 08/27/2014 10/01/2014 Inactive [SAVINGS FOR UNINSURED PATIENTS -- BIN:0 31643, PCN: ASPROD1, Group: AME08, ID# [id number], Process claim through MedImpact, for questions: . THIS IS NOT INSURANCE.] quinapril 10 mg-hydrochlorothiazide 12.5 mg tablet RxNorm: 3 18059 1 Tablet(s) PO QAM 08/27/2014 11/24/2014 Inactive Lidoderm 5 % (700 mg/patch) adhesive patch RxNorm: 5680940 Application TOP for 12hours then off for pain 08/18/2014 02/21/2015 Inactive [SAVIN GS FOR UNINSURED PATIENTS -- BIN:475108, PCN: ASPROD1, Group: AME08, ID# [id number], Process claim through DZZOM, for questions: . THIS IS NOT INSURANCE.] Zorvolex 35 mg capsule RxNorm: 3748048 1 Tablet(s) PO TID 08/13/2014 08/12/2014 Inactive Zorvolex 35 mg capsule RxNorm: 3234187 1 Tablet(s) PO TID 08/13/2014 08/24/2014 Inactive [SAVINGS FOR UNINSURED PATIENTS -- BIN:0 67109, PCN: ASPROD1, Group: AME08, ID# [id number], Process claim through MedICrysalinact, for questions: . THIS IS NOT INSURANCE.] Aspirin Child 81 mg chewable tablet RxNorm: 816015 1 Tablet(s) PO QD No Start Date Active ibuprofen 800 mg tablet RxNorm: 898772 1 Tablet(s) PO T ID as needed low back pain No Start Date 11/08/2014 Inactive cyclobenzaprine 10 mg tablet RxNorm: 149641 1 Tablet(s) PO TID No S tart Date 08/12/2017 Inactive garlic 1,000 mg capsule RxNorm: 485603 1 Capsule(s) PO QD No Start Date 04/22/2019 Inactive tramadol 50 mg tablet RxNorm: 262402 1 Tablet(s) PO Q4-6H as ne eded for pain No Start Date 02/21/2015 Inactive tramadol 50 mg tablet RxNorm: 815643 1 Tablet(s) PO TID as needed for pain along with two tylenol No Start Date 01/07/2019 Inactive krill oil oral RxNorm: 88631 oral No Start Date 11/11/2018 Inacti ve Vitamin D3 2,000 unit tablet RxNorm: 065534 1 Tablet(s) PO QD No St art Date 08/12/2019 Inactive gabapentin 100 mg tablet RxNorm: 360309 1 Tablet(s) PO QD No Start Date 11/10/2014 Inactive Zofran 4 mg tablet RxNorm: 076677 1 Tablet(s) PO Q6H as needed No S tart Date 08/12/2019 Inactive Elimite 5 % topical cream RxNorm: 256126 1 Application TOP QHS apply head to toe and was off in morning No Start Date 05/18/2019 Inactive gabapentin 100 mg capsule RxNorm: 881845 1 Capsule(s) PO QHS No Sta rt Date 11/10/2014 Inactive aspirin 325 mg tablet RxNorm: 164974 2 Tablet(s) PO QD No Start Date 08/17/2014 Inactive Fish Oil 1,000 mg capsule RxNorm: 1 Capsule(s) PO QD No Start Date 10/08/2018 Inactive quinapril 10 mg-hydrochlorothiazide 12.5 mg tablet RxNorm: 3 91423 1 Tablet(s) PO QAM No Start Date 08/26/2014 Inactive quinapril 40 mg tablet RxNorm: 873477 1 Tablet(s) PO QD No Start Da te 10/23/2017 Inactive Medrol (Daniel) 4 mg tablets in a dose pack RxNorm: 692608 Tablet(s) PO As Directed No Start Date 05/05/2018 Inactive Urecholine 25 mg tablet RxNorm: 729247 1 Tablet(s) PO TID No Start Date 11/08/2015 Inactive cyclobenzaprine 10 mg tablet RxNorm: 514014 1/2-1 Table t(s) PO TID as needed for muscle spasm No Start Date 12/01/2014 Inactive tamsulosin 0.4 mg capsule RxNorm: 910190 2 Capsule(s) PO QPM No Sta rt Date 08/12/2019 Inactive hydrocodone 5 mg-acetaminophen 325 mg tablet RxNorm: 659084 1 -2 Tablet(s) PO Q6H as needed No Start Date 05/20/2019 Inactive loratadine 10 mg tablet RxNorm: 566115 1 Tablet(s) PO QD No Start D ate 07/07/2014 Inactive Medication Administered No Medication Administered data Immunizations Vaccine Codes Date Status Influenza CVX: 141 07/21/2019 Results Observation Observation Code Item Item Code Result Date S ervice Location CULTURE, AEROBIC BACTERIA 07328 CULTURE, AEROBIC BACTERIA SEE NOTE 10/30/2019 [email or web address] [address] [place] [address] CULTURE, URINE, ROUTINE 395 CULTURE SEE NOTE 1 10/15/[address] [address] CULTURE, URINE, ROUTINE 395 CULTURE, URINE, ROUTINE SEE NOTE [facility] [address] [address] CBC (H/H, RBC, INDICES, WBC, PLT) 43141 WHITE BLOOD CELL COU NT 7.9 Thousand/uL 08/14/2019 [facility] [address] [address] CBC (H/H, RBC, INDICES, WBC, PLT) 85030 RED BLOOD CELL COUNT 4.93 Million/uL 08/14/2019 [facility] [address] [address] CBC (H/H, RBC, INDICES, WBC, PLT) 54004 HEMOGLOBIN 15 .4 g/dL 08/14/2019 [facility] [address] [address] CBC (H/H, RBC, INDICES, WBC, PLT) 68292 HEMATOCRIT 45 .0 % 08/14/2019 [facility] [address] [address] CBC (H/H, RBC, INDICES, WBC, PLT) 87765 MCV 91 .3 fL 08/14/2019 [email or web address] [address] [address] CBC (H/H, RBC, INDICES, WBC, PLT) 13599 MCH 31 .2 pg 08/14/2019 [email or web address] [address] CBC (H/H, RBC, INDICES, WBC, PLT) 77401 MCHC 34 .2 g/dL 08/14/2019 [facility] [address] CBC (H/H, RBC, INDICES, WBC, PLT) 16615 RDW 12 .7 % 08/14/2019 [facility] [address] CBC (H/H, RBC, INDICES, WBC, PLT) 82286 PLATELET COUNT 214 Thousand/uL 08/14/2019 [facility] [address] CBC (H/H, RBC, INDICES, WBC, PLT) 37352 MPV 11 .5 fL 08/14/[address] [address] COMPREHENSIVE METABOLIC PANEL 86162 Glucose 113 mg /dL 08/14/[address] [facility] [address] COMPREHENSIVE METABOLIC PANEL 32162 UREA NITROGEN (BUN) 16 mg/dL 08/14/2019 [facility] [address] COMPREHENSIVE METABOLIC PANEL 38419 CREATININE 0.86 m g/dL 08/14/2019 [facility] [address] COMPREHENSIVE METABOLIC PANEL 05984 eGFR NON-AFR. ZAMBIAN 92 mL/min/1.73m2 08/14/2019 [facility] [address] COMPREHENSIVE METABOLIC PANEL 00824 eGFR 106 mL/min/1.73m2 08/14/2019 [facility] [address] COMPREHENSIVE METABOLIC PANEL 90984 BUN/CREATININE RATIO NOT APPLICABLE (calc) 08/14/2019 [facility] [address] COMPREHENSIVE METABOLIC PANEL 21566 SODIUM 141 mm ol/L 08/14/2019 [facility] [address] COMPREHENSIVE METABOLIC PANEL 01031 POTASSIUM 4.1 mm ol/L 08/14/[address] [address] COMPREHENSIVE METABOLIC PANEL 12596 CHLORIDE 102 mm ol/L 08/14/2019 [facility] [address] COMPREHENSIVE METABOLIC PANEL 55450 CARBON DIOXIDE 28 mmol/L 08/14/2019 [facility] [address] COMPREHENSIVE METABOLIC PANEL 07416 CALCIUM 9.7 mg /dL 08/14/2019 [facility] [address] COMPREHENSIVE METABOLIC PANEL 57590 PROTEIN, TOTAL 6. 7 g/dL 08/14/2019 [facility] [address] COMPREHENSIVE METABOLIC PANEL 88245 ALBUMIN 4.3 g/ dL 08/14/2019 [facility] [address] COMPREHENSIVE METABOLIC PANEL 62355 GLOBULIN 2.4 g/ dL(calc) 08/14/[address] [address] COMPREHENSIVE METABOLIC PANEL 21526 ALBUMIN/GLOBULIN RATIO 1.8 (calc) 08/14/2019 [facility] [address] COMPREHENSIVE METABOLIC PANEL 59420 BILIRUBIN, TOTAL 1.0 mg/dL 08/14/2019 [facility] [address] COMPREHENSIVE METABOLIC PANEL 95627 ALKALINE PHOSPHATASE 56 U/L 08/14/2019 [facility] [address] COMPREHENSIVE METABOLIC PANEL 06599 AST 18 U/L 08/14/2019 [facility] [address] COMPREHENSIVE METABOLIC PANEL 12475 ALT 28 U/L 08/14/2019 [facility] [address] MAGNESIUM 05244 MAGNESIUM 2.0 mg/dL 06/06/2019 [facility] [address] COMPREHENSIVE METABOLIC PANEL 89076 Glucose 106 mg /dL 06/06/2019 [facility] [address] COMPREHENSIVE METABOLIC PANEL 96137 UREA NITROGEN (BUN) 22 mg/dL 06/06/2019 [facility] [address] [address] COMPREHENSIVE METABOLIC PANEL 68874 CREATININE 1.29 m g/dL 06/06/2019 [facility] [address] [address] COMPREHENSIVE METABOLIC PANEL 16911 eGFR NON-AFR. ZAMBIAN 58 mL/min/1.73m2 06/06/2019 [facility] [address] [address] COMPREHENSIVE METABOLIC PANEL 13929 eGFR 67 mL/min/1.73m2 06/06/2019 [facility] [address] [address] COMPREHENSIVE METABOLIC PANEL 67835 BUN/CREATININE RATIO 17 (calc) 06/06/2019 [facility] [address] [address] COMPREHENSIVE METABOLIC PANEL 14012 SODIUM 138 mm ol/L 06/06/2019 [facility] [address] [address] COMPREHENSIVE METABOLIC PANEL 79561 POTASSIUM 4.2 mm ol/L 06/06/2019 [facility] [address] [address] COMPREHENSIVE METABOLIC PANEL 08692 CHLORIDE 101 mm ol/L 06/06/2019 [facility] [place] [address] [address] COMPREHENSIVE METABOLIC PANEL 40540 CARBON DIOXIDE 29 mmol/L 06/06/2019 [facility] [place] [place] [facility] [address] [address] COMPREHENSIVE METABOLIC PANEL 82767 CALCIUM 9.6 mg /dL 06/06/2019 [facility] [address] [address] COMPREHENSIVE METABOLIC PANEL 11674 PROTEIN, TOTAL 6. 9 g/dL 06/06/2019 [facility] [address] [address] COMPREHENSIVE METABOLIC PANEL 22251 ALBUMIN 4.4 g/ dL 06/06/2019 [facility] [address] [address] COMPREHENSIVE METABOLIC PANEL 75726 GLOBULIN 2.5 g/ dL(calc) 06/06/2019 [facility] [place] [facility] [address] [address] COMPREHENSIVE METABOLIC PANEL 88877 ALBUMIN/GLOBULIN RATIO 1.8 (calc) 06/06/2019 [facility] [address] [address] COMPREHENSIVE METABOLIC PANEL 32044 BILIRUBIN, TOTAL 0.7 mg/dL 06/06/2019 [facility] [place] [facility] [address] [address] COMPREHENSIVE METABOLIC PANEL 91805 ALKALINE PHOSPHATASE 45 U/L 06/06/2019 [facility] [place] [facility] [address] [address] COMPREHENSIVE METABOLIC PANEL 33596 AST 21 U/L 06/06/2019 [facility] [place] [facility] [address] COMPREHENSIVE METABOLIC PANEL 46526 ALT 34 U/L 06/06/2019 [facility] [place] [facility] [address] CULTURE, URINE, ROUTINE 395 CULTURE, URINE, ROUTINE SEE NOTE 04/23/2019 [facility] [place] [facility] [address] [address] CULTURE, URINE, ROUTINE 395 CULTURE SEE NOTE 0 04/23/2019 [facility] [place] [facility] [address] [address] EXTRA 1014 EXTRA TUBE RECEIVED 04/22 [facility] [address] [address] EXTRA 1014 SPECIMEN TYPE RECEIVED: LAV 0 04/22/2019 [facility] [address] [address] COMPREHENSIVE METABOLIC PANEL 94684 Glucose 94 mg/ dL 04/22/2019 [facility] [address] [address] COMPREHENSIVE METABOLIC PANEL 13506 UREA NITROGEN (BUN) 20 mg/dL 04/22/2019 [facility] [place] [facility] [address] [address] COMPREHENSIVE METABOLIC PANEL 80331 CREATININE 1.30 m g/dL 04/22/2019 [facility] [place] [facility] [address] [address] COMPREHENSIVE METABOLIC PANEL 57584 eGFR NON-AFR. ZAMBIAN 58 mL/min/1.73m2 04/22/2019 [facility] [address] [address] COMPREHENSIVE METABOLIC PANEL 96760 eGFR 67 mL/min/1.73m2 04/22/2019 [facility] [address] COMPREHENSIVE METABOLIC PANEL 41887 BUN/CREATININE RATIO 15 (calc) 04/22/2019 [facility] [address] COMPREHENSIVE METABOLIC PANEL 70564 SODIUM 139 mm ol/L 04/22/2019 [facility] [address] COMPREHENSIVE METABOLIC PANEL 31254 POTASSIUM 4.2 mm ol/L 04/22/2019 [facility] [address] COMPREHENSIVE METABOLIC PANEL 17063 CHLORIDE 104 mm ol/L 04/22/2019 [facility] [address] COMPREHENSIVE METABOLIC PANEL 98883 CARBON DIOXIDE 27 mmol/L 04/22/2019 [facility] [place] [facility] [address] COMPREHENSIVE METABOLIC PANEL 54334 CALCIUM 9.9 mg /dL 04/22/2019 [facility] [address] COMPREHENSIVE METABOLIC PANEL 17033 PROTEIN, TOTAL 7. 1 g/dL 04/22/2019 [facility] [address] COMPREHENSIVE METABOLIC PANEL 33418 ALBUMIN 4.6 g/ dL 04/22/2019 [facility] [place] [facility] [address] COMPREHENSIVE METABOLIC PANEL 34607 GLOBULIN 2.5 g/ dL(calc) 04/22/2019 [facility] [place] [facility] [address] COMPREHENSIVE METABOLIC PANEL 44057 ALBUMIN/GLOBULIN RATIO 1.8 (calc) 04/22/2019 [facility] [address] COMPREHENSIVE METABOLIC PANEL 91764 BILIRUBIN, TOTAL 0.4 mg/dL 04/22/2019 [facility] [place] [facility] [address] COMPREHENSIVE METABOLIC PANEL 38840 ALKALINE PHOSPHATASE 53 U/L 04/22/2019 [facility] [place] [facility] [address] COMPREHENSIVE METABOLIC PANEL 38323 AST 21 U/L 04/22/2019 [facility] [place] [facility] [address] COMPREHENSIVE METABOLIC PANEL 07407 ALT 34 U/L 04/22/2019 [facility] [place] [facility]ings[facility]riya Becerra [address] [place] [address] CULTURE, URINE, ROUTINE 395 CULTURE, URINE, ROUTINE SEE NOTE 01/31/2019 Zay Becerra [address] [place] [address] Procedures Procedure Codes Date CULTURE, AEROBIC BACTERIA CPT-4: 55082 10/27/2019 URINALYSIS NONAUTO W/O SCOPE CPT-4: 75284 10/02/2019 URINE CULTURE/ COLONY COUNT CPT-4: 82580 10/02/2019 ROUTINE VENIPUNCTURE CPT-4: 74254 08/13/2019 URINALYSIS NONAUTO W/O SCOPE CPT-4: 02222 08/13/2019 CULTURE, URINE, ROUTINE CPT-4: 395 08/13/2019 COMPREHENSIVE METABOLIC PANEL CPT-4: 29754 08/13/2019 CBC (H/H, RBC, INDICES, WBC, PLT) CPT-4: 66160 2018 COMPREHENSIVE METABOLIC PANEL CPT-4: 72337 06/05/2019 MAGNESIUM CPT-4: 95462 06/05/2019 DEXAMETHASONE SODIUM PHOS CPT-4: J1100 05/21/2019 THER/PROPH/DIAG INJ SC/IM CPT-4: 40280 05/21/2019 TRIAMCINOLONE ACET INJ NOS CPT-4: J3301 05/21/2019 ROUTINE VENIPUNCTURE CPT-4: 61844 04/21/2019 COMPREHENSIVE METABOLIC PANEL CPT-4: 76299 04/21/2019 EXTRA CPT-4: 1014 04/21/2019 CULTURE, URINE, ROUTINE CPT-4: 395 04/21/2019 URINALYSIS NONAUTO W/O SCOPE CPT-4: 35458 04/21/2019 URINALYSIS NONAUTO W/O SCOPE CPT-4: 09547 01/29/2019 CULTURE, URINE, ROUTINE CPT-4: 395 01/29/2019 DRAIN/INJECT JOINT/BURSA CPT-4: 21626 02/19/2018 TRIAMCINOLONE ACET INJ NOS CPT-4: J3301 02/19/2018 DEXAMETHASONE SODIUM PHOS CPT-4: J1100 02/19/2018 THER/PROPH/DIAG INJ SC/IM CPT-4: 98218 02/12/2018 TRIAMCINOLONE ACET INJ NOS CPT-4: J3301 02/12/2018 DEXAMETHASONE SODIUM PHOS CPT-4: J1100 02/12/2018 CEFTRIAXONE SODIUM INJECTION CPT-4: J0696 12/03/2017 THER/PROPH/DIAG INJ SC/IM CPT-4: 22163 12/03/2017 THER/PROPH/DIAG INJ SC/IM CPT-4: 92757 12/03/2017 METHYLPREDNISOLONE INJECTION CPT-4: J2930 12/03/2017 URINALYSIS NONAUTO W/O SCOPE CPT-4: 72764 08/13/2017 STREP A ASSAY W/OPTIC CPT-4: 98563 02/13/2017 DESTRUCT PREMALG LESION (Cryosurgery) CPT-4: 21036 Vital Signs Date Vital 10/27/2019 Blood Pressure [...] 1: 128/78 Code: 8480-6 BMI: 36.0 Code: 89763-8 Heart Rate 1: 68 bpm Height: 5'7" [...] 1: 138/86 Code: 8480-6 BMI: 35.6 Code: 51835-4 Heart Rate 1: 68 bpm Height: 5'7" SpO2: 95% Temperature: 36.6 (C) / 97.8 (F) Weight: 227 lbs 12/03/2017 Blood Pressure 1: 134/84 Code: 8480-6 BMI: 34.3 Code: 97779-8 Heart Rate 1: 68 bpm Height: 5'7" Respiratory Rate: 20 bpm SpO2: 96% Tempera ture: 35.9 (C) / 96.6 (F) Weight: 219 lbs 09/11/2017 Blood Pressure 1: 140/86 Code: 8480-6 BMI: 34.9 Code: 10879-5 Heart Rate 1: 84 bpm Height: 5'7" Respiratory Rate: 20 bpm SpO2: 95% Tempera ture: 36.7 (C) / 98.1 (F) Weight: 223 lbs 08/13/2017 Blood Pressure 1: 142/94 Code: 8480-6 BMI: 34.5 Code: 11599-3 Heart Rate 1: 76 bpm Height: 5'7" Respiratory Rate: 20 bpm SpO2: 96% Tempera ture: 37.1 (C) / 98.8 (F) Weight: 220 lbs 11/17/2016 Blood Pressure 1: 118/78 Code: 8480-6 art Rate 1: 64 bpm 07/19/2016 Blood Pressure 1: 112/58 Code: 8480-6 BMI: 31.6 Code: 78970-6 Heart Rate 1: 88 bpm Height: 5'7" Respiratory Rate: 22 bpm SpO2: 98% Tempera ture: 36.3 (C) / 97.4 (F) Weight: 202 lbs 06/09/2016 Blood Pressure 1: 138/84 Code: 8480-6 BMI: 32.1 Code: 86445-9 Heart Rate 1: 58 bpm Height: 5'7" Respiratory Rate: 20 bpm SpO2: 97% Tempera ture: 36.6 (C) / 97.8 (F) Weight: 205 lbs 11/08/2015 Blood Pressure 1: 142/80 Code: 8480-6 BMI: 32.4 Code: 52763-6 Heart Rate 1: 76 bpm Height: 5'7" Respiratory Rate: 20 bpm Temperature: 36 .6 (C) / 97.9 (F) Weight: 207 lbs 06/14/2015 Blood Pressure 1: 126/80 Code: 8480-6 Heart Rate 1: 84 bpm Respiratory Rate: 20 bpm Temperature: 36.8 (C) / 98.2 (F) Weight: 206 lbs 05/18/2015 Blood Pressure 1: 124/80 Code: 8480-6 BMI: 32.3 Code: 90831-7 Heart Rate 1: 68 bpm Height: 5'7" Respiratory Rate: 20 bpm Temperature: 36 .4 (C) / 97.6 (F) Weight: 206 lbs 02/22/2015 Blood Pressure 1: 126/78 Code: 8480-6 BMI: 32.1 Code: 39147-7 Heart Rate 1: 76 bpm Height: 5'7" Respiratory Rate: 20 bpm Temperature: 36 .6 (C) / 97.9 (F) Weight: 205 lbs 12/02/2014 Blood Pressure 1: 124/80 Code: 8480-6 BMI: 32.7 Code: 67958-7 Heart Rate 1: 70 bpm Height: 5'7" Respiratory Rate: 18 bpm Temperature: 36 .6 (C) / 97.9 (F) Weight: 209 lbs 08/18/2014 Blood Pressure 1: 132/94 Code: 8480-6 BMI: 34.5 Code: 43271-8 Heart Rate 1: 84 bpm Height: 5'6" Respiratory Rate: 20 bpm Temperature: 36 .6 (C) / 97.9 (F) Weight: 217 lbs 07/08/2014 Blood Pressure 1: 142/88 Code: 8480-6 BMI: 34.3 Code: 66309-8 Heart Rate 1: 72 bpm Height: 5'6" [...] ~generic 07/08/2014 New Patient/[facility] Visit Encounters Encounter Performer Location Codes Date ([id number]) NO CHARGE Diagnosis: Infected sebaceous cyst[ICD10: L72.3] Sapna Johnston [facility] CPT-4: 00539 11/03/2019 ([id number]) OFFICE/OUTPATIENT VISIT EST Diagnosis: Disorder of the skin and subcutaneous tissue, unspecified[ICD10: L98.9] Diagnosis: Infected sebaceous cyst[ICD10: L72.3] Diagnosis: Local infection of the skin and subcutaneous tissue, unspecified[ICD10: L08.9] Lashell Joe SAPNA [employer] CPT-4 : 93084 10/27/2019 ([id number]) OFFICE/OUTPATIENT VISIT EST Diagnosis: Suprapubic abdominal pain[ICD10: R10.2] Diagnosis: Aortic regurgitation[ICD10: I35.1] Sapna GAUTAM EmberAmarjit [employer] CPT-4: 24402 10/02/2019 ([id number]) OFFICE/OUTPATIENT VISIT EST Diagnosis: Chest pain[ICD10: R07.9] Lashell COATSN MANUELITO [facility] CPT-4: 19574 08/25/2019 ([id number]) OFFICE/OUTPATIENT VISIT EST Diagnosis: Thoracic back pain[ICD10: M54.6] Diagnosis: Disorder of kidney and ureter, unspecified[ICD10: N28.9] Diagnosis: Personal history of nicotine dependence[ICD10: Z87.891] 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 PAULYND EDVIN [employer] [facility] CPT-4: 50288 07/03/2019 ([id number]) OFFICE/OUTPATIENT VISIT EST Diagnosis: Cramp and spasm[ICD10: R25.2] Diagnosis: Disorder of kidney and ureter, unspecified[ICD10: N28.9] Lashell Capps. PAULYNDER [facility] CPT-4: 79068 06/05/2019 ([id number]) OFFICE/OUTPATIENT VISIT EST Diagnosis: Other pruritus[ICD10: L29.8] Diagnosis: Pain in right knee[ICD10: M25.561] Lashell SANCHEZ LOTUS S. PAULYNDER [employer] [facility] CPT-4: 62895 05/21/2019 ([id number]) NURSE/OUTPATIENT VISIT EST Diagnosis: Edema, unspecified[ICD10: R60.9] Sapna CORRAL S. PAULYNDER DO [facility] CPT-4: 03437 04/21/2019 ([id number]) OFFICE/OUTPATIENT VISIT EST Diagnosis: Diverticulitis of large intestine without perforation or abscess without bleeding[ICD10: K57.32] Diagnosis: Snoring[ICD10: R06.83] Diagnosis: Other constipation[ICD10: K59.09] Lashell NICHOLE Geraldine S. PAULYNDER [employer] [facility] CPT-4: 77559 02/24/2019 ([id number]) OFFICE/OUTPATIENT VISIT EST Diagnosis: Diverticulitis of large intestine without perforation or abscess with bleeding[ICD10: K57.33] Nancy BRUNSONLINE Vickie LIVE DO [employer] CPT-4: 81603 02/04/2019 ([id number]) OFFICE/OUTPATIENT VISIT EST Diagnosis: Left lower quadrant pain[ICD10: R10.32] Nancy LIVE DO [facility] CPT-4: 65930 01/29/2019 OFFICE/OUTPATIENT VISIT EST Diagnosis: Dermatitis, unspecified[ICD10: L30.9] Diagnosis: Gastro-esophageal reflux disease without esophagitis[ICD10: K21.9] Diagnosis: Palpitations[ICD10: R00.2] Sapna Calos SAPNA Vickie AU [facility] CPT-4: 97909 12/19/2018 ([id number]) OFFICE/OUTPATIENT VISIT EST Diagnosis: Gastro-esophageal reflux disease without esophagitis[ICD10: K21.9] Diagnosis: Dysphagia, pharyngoesophageal phase[ICD10: R13.14] Sapna Calos SAPNA JefryAmarjit CALOS [facility] CPT-4: 83254 11/11/2018 ([id number]) PREV VISIT EST AGE 40-64 Diagnosis: Encounter [...] system[ICD10: K91.89] Lashell CORRAL JefryAmarjit CALOS MARIE [facility] CPT-4: 99 396 10/09/2018 ([id number]) OFFICE/OUTPATIENT VISIT EST Diagnosis: Pain in right knee[ICD10: M25.561] Diagnosis: Pain in right hip[ICD10: M25.551] Lashell Chandler JefryAmarjit PAULYDOMINICEDVIN [facility] CPT-4: 73243 02/12/2018 OFFICE/OUTPATIENT VISIT EST Diagnosis: Essential (primary) hypertension[ICD10: I10] Diagnosis: Other chest pain[ICD10: R07.89] Lashell LIVE DO [facility] CPT-4: 48190 12/03/2017 ([id number]) OFFICE/OUTPATIENT VISIT EST Diagnosis: Essential (primary) hypertension[ICD10: I10] Sapna LIVE 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 CPT-4: 55740 08/13/2017 ([id number]) OFFICE/OUTPATIENT VISIT EST Diagnosis: Acute pharyngitis, unspecified[ICD10: J02.9] Sapna LIVE 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 CPT-4: 04313 07/19/2016 OFFICE/OUTPATIENT VISIT EST Diagnosis: Pain in thoracic spine[ICD10: M54.6] Diagnosis: Disorder of the skin and subcutaneous tissue, unspecified[ICD10: L98.9] Sobia Monreal SAPNA LIVE [facility] CPT-4: 19886 06/09/2016 OFFICE/OUTPATIENT VISIT EST Diagnosis: Retention of urine, unspecified[ICD10: R33.9] Diagnosis: Urinary tract infection, site not specified[ICD10: N39.0] Chelsie Capps. PAULYNDER DO [facility] CPT-4: 36783 11/08/2015 ([id number]) OFFICE/OUTPATIENT VISIT EST Diagnosis: DERMATITIS NOS[ICD9: 692.9] Diagnosis: SEBACEOUS CYST[ICD9: 706.2] Sapna Capps. O RENDER DO [facility] CPT-4: 47275 06/14/2015 OFFICE/OUTPATIENT VISIT EST Diagnosis: LOCAL SKIN INFECTION[ICD9: 686.9] Diagnosis: FOLLICULITIS[ICD9: 704.8] Chelsie Capps. PAULY NDER DO [facility] CPT-4: 27075 05/18/2015 ([id number]) OFFICE/OUTPATIENT VISIT EST Diagnosis: Constipation[ICD9: 564.00] Sapna BRUNSONLINE Jefry. CANDICE AU DO [facility] CPT-4: 51944 02/22/2015 ([id number]) OFFICE/OUTPATIENT VISIT EST Diagnosis: Thoracic back pain[ICD9: 724.1] Diagnosis: Thoracic degenerative disc disease[ICD9: 722.51] Diagnosis: Scoliosis[ICD9: 737.30] Sapna Capps. PAULYND ER DO [facility] CPT-4: 93526 12/02/2014 ([id number]) OFFICE/OUTPATIENT VISIT EST Diagnosis: Thoracic back pain[ICD9: 724.1] Diagnosis: ACTINIC KERATOSIS[ICD9: 702.0] Sapna BRUNSONLINE Jefry Amarjit HITESHER DO [facility] CPT-4: 41110 08/18/2014 OFFICE/OUTPATIENT VISIT NEW Diagnosis: HYPERTENSION[ICD9: 401.9] Diagnosis: Thoracic back pain[ICD9: 724.1] Diagnosis: GERD[ICD9: 530.81] Diagnosis: Adrenal tumor[ICD9: 239.7] Sapna BRUNSONLINE Jefry. OR ANGELY DO [facility] CPT-4: 20778 07/08/2014 ([id number]) OFFICE/OUTPATIENT VISIT NEW Diagnosis: HYPERTENSION[ICD9: 401.9] Diagnosis: GERD[ICD9: 530.81] Sapna BRUNSONLINE JefryAmarjit PAULYNDER DO [facility] CPT-4: 98395 07/08/2014 Plan of Care Planned Activity Notes [...] : L08.9 10/27/2019 Appointment: Lashell Joe [place] [facility] ACUTE ILLNESS 10/27/2019 Patient Education: tramadol- [employer] C[employer]on [id number] [email or web address] Completed 10/27/2019 Visit Plan: Update Low Dose [...] I35.1 10/02/2019 Appointment: Sapna Live WPtel: [phone] [facility] FOLLOW UP 10/02/2019 Care Plan: Referral Order SNOMED-CT : 30 [id number] Pending 10/02/2019 Visit Diagnosis Plan: Chest pain Discussion: will star t with cxray and rib xray. discussed that could be lung, rib, muscle but will start with cxray and patient may need echo. he verbalized understanding. ICD-9 : 786.50 ICD-10 : R07.9 08/25/2019 Appointment: Lashell Joe [place] [facility] ACUTE ILLNESS 08/25/2019 Visit Diagnosis Plan: Thoracic back pain Discussion: c hronic pain. will refer to dr. stallings at [place] for evaluation and treatment ICD-9 : 724.1 [...] ct [facility] ICD-9 : V15.82 ICD-10 : [...] ICD-10 : E27.8 08/13/2019 Appointment: Lashell Joe [address] [place], [place] [id number] FOLLOW UP 08/13/2019 Visit Diagnosis Plan: Sigmoid diverticulitis Discussio n: Bactrim/Flagyl [place] diet To ER this weekend if worsening ICD-9 : 562.11 ICD-10 : K57.32 07/03/2019 Visit Diagnosis Plan: Jock itch Discussion: Diflucan a nd topical nystatin ICD-9 : 110.3 ICD-10 : B35.6 07/03/2019 Visit Diagnosis Plan: Renal insufficiency Discussion: Labs discussed Continue off NSAIDS Hydrate Recheck Chemistry 3mos ICD-9 : 593.9 ICD-10 : N28.9 07/03/2019 Appointment: Sapna Live WPtel: [phone] [id number] US FOLLOW UP 07/03/2019 Patient Education: fluconazole- [employer]on [id number] Completed 07/03/2019 Patient Education: nystatin- [employer] [id number] Completed 07/03/2019 Visit Diagnosis Plan: Disorder of [...] ICD-10 : R25.2 06/05/2019 Appointment: Lashell Joe [address] [place], [place] [phone] NO SHOW - FORGIVEN 06/05/2019 Appointment: Lashell Joe [address] [place], [place] [phone] ACUTE ILLNESS 06/05/2019 Visit Diagnosis Plan: Pain [...] ICD-10 : L29.8 05/21/2019 Appointment: Lashell Joe [address] [place], [place] [id number] ACUTE ILLNESS 05/21/2019 Patient Education: hydroxyzine HCl- [employer] Coupon [id number] [email or web address]/resources/getResource/[email or web address]/[email or web address] Completed 05/21/2019 Appointment: Barbara Liveline JefryAmarjit WPtel: [phone] [facility] 05/19/19 1645---see note put in chart today (km) CANCELED 05/19/2019 Appointment: Barbara Liveline JefryAmarjit WPtel: [phone] [facility] CANCELED 05/05/2019 Appointment: Sapna LiveAmarjit WPtel: [phone] [facility] US UA 04/21/2019 Visit Diagnosis Plan: Diverticulitis of [...] K59.09 02/24/2019 Appointment: Lashell Joe [address] Follow Up 02/24/2019 Visit Diagnosis Plan: Diverticulitis of large intestine without perforation or abscess with bleeding Discussion: Continue flagyl and cipro. A dvance diet to bland. BRAT diet advised. Avoid nuts, seeds, popcorn, roughage. RTC if abdominal pain worsens or does not improve. ICD-9 : 562.13 ICD-10 : K57.33 02/04/2019 Appointment: Nancy Mendiola [address] FOLLOW UP 02/04/2019 Visit Diagnosis Plan: [...] : R10.32 01/29/2019 Appointment: Nancy Mendiola [facility] [address] ACUTE ILLNESS 01/29/2019 Care Plan: CT [...] : L30.9 12/19/2018 Appointment: Sapna Live WPtel: [address] [place], [place] [phone] ACUTE ILLNESS 12/19/2018 Visit Diagnosis Plan: Gastro-esophageal reflux disease without esophagitis Discussion: Continue protonix at 40mg daily Hold mobic No NSAIDS Hold all MVs If persists then will need EGD ICD-9 : 530.81 ICD-10 : K21.9 11/11/2018 Appointment: Sapna Live WPtel: [address] [place], [place] [phone] FOLLOW UP 11/11/2018 Visit Diagnosis Plan: Encounter for gene [facility] adult medical examination without abnormal [...] ICD-10 : I10 10/09/2018 Appointment: Lashell Joe [address] [place], [place] [phone] Annual Well Visit 10/09/2018 Patient Education: gabapentin- [employer] Coupon [id number] Completed 10/09/2018 Patient Education: Kegel Exercises Comple catalina 10/09/2018 Patient Education: High Blood Pressure Co mpleted 10/09/2018 Visit Diagnosis Plan: Pain in right knee Discussion: c orticosteroid injection administered as described above. patient tolerated well. instructed to rtc in 3- 4 months if needed for additional injection. ICD-9 : 719.46 ICD-10 : M25.561 02/19/2018 Appointment: Lashell Joe [facility] OFFICE SURGERY 02/19/2018 Patient Education: Patient Medication [...] ICD-10 : M25.551 02/12/2018 Appointment: Lashell Joe [address] [place], [place] [phone] ACUTE ILLNESS 02/12/2018 Patient Education: Patient Medication Summary Completed 02/12/2018 Care Plan: X-RAY EXAM OF KNEE 1 OR 2 [place] : [address]-8 Pending 02/12/2018 Visit Diagnosis Plan: Essential (primary) [...] ICD-10 : R07.89 12/03/2017 Appointment: Lashell Joe [address] [place] [address] ESTABLISHED PATIENT 12/03/2017 Patient Education: Patient Medication Summary Completed 12/03/2017 Visit Diagnosis Plan: Essential (primary) hypertension Discussion: Increase quinapril to 40mg daily BP check in 1month ICD-9 : 401.9 ICD-10 : I10 09/11/2017 Appointment: Sapna Live WPtel: [address] [place], [place] [phone] FOLLOW UP 09/11/2017 Patient Education: Patient Medication Summary Completed 09/11/2017 Appointment: Sapna Live WPtel: [address] [place] [address] RESCHEDULED 08/22/2017 Visit Diagnosis Plan: Essential (primary) hypertension Discussion: Increase quinapril to 20mg daily Follow Up: 1 months ICD-9 : 401.9 ICD-10 : I10 08/13/2017 Visit Diagnosis Plan: Encounter for [facility] medical examination without abnormal findings Discussion: Update fasting lab ICD-9 : V70.9 ICD-10 : Z00.00 08/13/2017 Visit Diagnosis Plan: Left lower quadrant pain Discuss ion: Update colonoscopy ICD-9 : 789.04 ICD-10 : R10.32 08/13/2017 Appointment: Sapna Livetel: [address] [place] [address] Annual Well Visit 08/13/2017 Patient Education: Patient Medication Summary Completed 08/13/2017 Appointment: Sapna Livetel: [address] [place] [address] THROAT SWAB 02/13/2017 Patient Education: Patient Medication Summary Completed 02/13/2017 Appointment: Sapna Livetel: [address] [place], [place] [phone] BP CHECK 11/17/2016 Patient Education: Patient Medication Summary Completed 11/17/2016 Visit Plan: Due for colonoscopy in 2018 Had shingles shot and flu shot Change quinapril hct to plain quinapril and see if muscles twitches improve Fwup with Dr. Braga Lab discussed Discussed diet/exercise at length Check CT abdomen Recheck 3mos 07/19/2016 Appointment: Sapna Live WPtel: [address] [place] [address] 07/18 confirmed`sl PHYSICAL 07/19/2016 Patient Education: Patient [...] earliest convenience 06/09/2016 Appointment: Sobia Monreal WPtel: [address] [place] [address] ACUTE ILLNESS 06/09/2016 Patient Education: Patient Medication Summary Completed 06/09/2016 Referral: Demario Braga WPtel: [address] [place] [address] Referral Initiated 11/12/2015 Visit Plan: Continue indwelling catheter until follow-up with Dr. Braga Continue Bactrim and Cipro Pyridium TID for Bladder spasms 11/08/2015 Appointment: Chelsie Teixeira WPtel: [address] [place] [address] ER Follow UP 11/08/2015 Patient Education: Patient Medication Summary Completed 11/08/2015 Referral: Abdiel Tucker WPtel: [address] [place] [address] Referral Initiated 06/21/2015 Visit Plan: Prednisone 20mg daily for 1w ute See surgery of cyst removal 06/14/2015 Appointment: Sapna iLve WPtel: [address] [place] [address] 06/11 cn 06/14 cn FOLLOW UP 2014 Patient Education: Patient Medication Summary Completed 06/14/2015 Visit Plan: Warm moist compresses to Lef t shoulder lesion and apply topical Mupirocin twice daily Complete Cephalexin x 7 days as directed Resume Culturelle daily 05/18/2015 Appointment: Chelsie Teixeira WPtel: [address] [place] [address] ACUTE ILLNESS 05/18/2015 Patient Education: Patient Medication Summary Completed 05/18/2015 Visit Plan: Check fasting lab Use pain m eds prn with miralax on the day that takes pain meds 02/22/2015 Appointment: Sapna Live WPtel: [address] [place] [address] 02/19 [facility] 02/19 appt confirmed-lb ACUTE ILLNESS 5 Patient Education: Patient Medication Summary Completed 02/22/2015 Visit Plan: Increase neurontin to 300mg q HS Continue flexeril and tramadol Call in 1mo on how higher dose of gabapentin 12/02/2014 Appointment: Sapna Live WPtel: [address] [place] [address] FOLLOW UP 12/02/2014 Patient Education: Patient Medication Summary Completed 12/02/2014 Referral: Eric Angelo WPtel: [address] [place] [address] Referral Appointment Confirmed 09/15/2014 Visit Plan: Proceed with pain doctor for possible injection vs nerve block Trial of lidoderm patch Cryotherapy to lesions as above 08/18/2014 Appointment: Sapna Live WPtel: [address] [place] [address] ACUTE ILLNESS 08/18/2014 Patient Education: Patient Medication Summary Completed 08/18/2014 Patient Education: Patient Medication Summary Completed 08/13/2014 Visit Plan: Continue current meds Obtain most recent lab results Check thoracic spine x-rays Needs updated CT scan of adrenal tumor 07/08/2014 Appointment: Sapna Live WPtel: [phone] [id number] 07/07 vm NEW PATIENT 07/08/2014 Patient Education: Patient Medication Summary Completed 07/08/2014 Patient Education: Patient Medication Summary Completed 07/08/2014 Referral: Suhail Cardenas WPtel: [address] [id number] [place] Referral Completed Referral: Toby Bettencourt WPtel: [address] [place] [address] [address] [id number] [place] Referral Completed Referral: Rosario Monahan WPtel: [phone] [facility] [[email or web address] [address] [place] Referral Appointment Requested Instructions [...]
--- OUTSIDE RECORDS SUMMARY | 2020-02-05 07:54 | XMS REPORT | CCD ---
Author Author Jai Live D.O. Organization [facility] Address [address] [place] [address] Phone Care Team Providers Care Inspector Balance Truing Name Role Phone Sapna Live D.O., PP Unavailable CCM Unavailable Summary Purpose Interface Exchange Insurance Providers Payer name Policy type / Coverage type Covered alliance party ID Effective Begin Date Effective End Date GPA Commercial Insurance [id number] 2019 Unknown Family history Mother Diagnosis Age At Onset Cancer Unknown Father Diagnosis Age At Onset Congestive heart failure Unknown Coronary Artery Disease(CAD) Unknown Social History Social History Element Codes Description Effective Dates Tobacco history SNOMED CT: 2983706 Former smoker 10/09/2018 Marital status Unknown 07/08/2014 Number of children Unknown 1 07/08/2014 Employment Unknown Currently employed [employer] 07/08/[address]: 828989104 Never drinks alcohol 2013 Has the patient [...] Problems Condition Codes Effective Dates Condition Status Disorder of the skin and subcutaneous tissue, unspecif ied ICD-9: 709.9 ICD-10: L98.9 06/08/2016 Active Infected sebaceous cyst ICD-9: 706.2 ICD-10: L72.3 10/27/2019 Active Local infection of the skin and [...] Fill Instructions tramadol 50 mg tablet RxNorm: 191479 1 Tablet(s) Oral t hree times a day as needed for pain along with two tylenol 10/27/2019 10/27/2019 Inactive cyclobenzaprine 10 mg tablet RxNorm: 733461 1 Tablet(s) Oral th ree times a day 10/27/2019 No Stop Date Active Bactrim DS 800 mg-160 mg tablet RxNorm: 596991 1 Tablet(s) Oral two times a day 10/27/2019 11/03/2019 Active tramadol 50 mg tablet RxNorm: 210985 1 Tablet(s) Oral t hree times a day as needed for pain along with two tylenol 10/27/2019 10/26/2019 Inactive Bactrim DS 800 mg-160 mg tablet RxNorm: 322866 1 Tablet(s) Oral two times a day 10/27/2019 10/26/2019 Inactive tramadol 50 mg tablet RxNorm: 610736 1 Tablet(s) Oral t hree times a day as needed for pain along with two tylenol 09/29/2019 10/26/2019 Inactive quinapril 40 mg tablet RxNorm: 873394 1 Tablet(s) Oral QD 09/18/2019 03/15/2020 Active Patient requests 90 days supply tramadol 50 mg tablet RxNorm: 789166 1 Tablet(s) Oral t hree times a day as needed for pain along with two tylenol 08/28/2019 08/28/2019 Inactive tramadol 50 mg tablet RxNorm: 047095 1 Tablet(s) PO TID as needed for pain along with two tylenol 08/25/2019 08/27/2019 Inactive pantoprazole 40 mg tablet,delayed release RxNorm: 045742 1 Tabl et(s) Oral QD 08/13/2019 No Stop Date Active Vitamin D3 1,000 unit capsule RxNorm: 789567 1 Capsule(s) Oral QD 1 10/13/2018 No Stop Date Active tamsulosin 0.4 mg capsule RxNorm: 236540 1 Capsule(s) Oral QPM 07/26 No Stop Date Active Protonix 40 mg tablet,delayed release RxNorm: 525738 TA KE 1 TABLET BY MOUTH TWICE A DAY 08/04/2019 08/12/2019 Inactive Flagyl 500 mg tablet RxNorm: 757024 1 Tablet(s) Oral three time s a day 07/03/2019 07/13/2019 Inactive fluconazole 100 mg tablet RxNorm: 159603 1 Tablet(s) Oral QD 201807/10/2019 Inactive Bactrim DS 800 mg-160 mg tablet RxNorm: 529912 1 Tablet(s) Oral two times a day 07/03/2019 07/13/2019 Inactive nystatin 100,000 unit/gram topical cream RxNorm: 832741 Application Topical two times a day 07/03/2019 08/12/2019 Inactive gabapentin 600 mg tablet RxNorm: 463866 Tablet(s) TAKE 1 TABLET BY MOUTH EVERY NIGHT AT BEDTIME 06/25/2019 08/12/2019 Inactive - First Attempt Ref: [id number] quinapril 40 mg tablet RxNorm: 525564 1 Tablet(s) Oral QD 06/23/2019 09/17/2019 Inactive Patient requests 90 days supply tramadol 50 mg tablet RxNorm: 429078 1 Tablet(s) PO TID as needed for pain along with two tylenol 05/23/2019 08/24/2019 Inactive hydroxyzine HCl 25 mg tablet RxNorm: 277345 1 Tablet(s) PO TID as needed 05/21/2019 08/12/2019 Inactive Elimite 5 % topical cream RxNorm: 735574 1 Application TOP QHS apply head to toe and was off in morning 05/19/2019 07/02/2019 Inactive Protonix 40 mg tablet,delayed release RxNorm: 050741 1 Tablet(s ) PO BID 05/05/2019 08/02/2019 Inactive - First Attempt Ref: [id number] gabapentin 600 mg tablet RxNorm: 485068 Tablet(s) TAKE 1 TABLET BY MOUTH EVERY NIGHT AT BEDTIME 04/25/2019 06/24/2019 Inactive - First Attempt Ref: [id number] tramadol 50 mg tablet RxNorm: 150766 1 Tablet(s) PO TID as needed for pain along with two tylenol 04/21/2019 05/22/2019 Inactive quinapril 40 mg tablet RxNorm: 136461 1 Tablet(s) PO QD 04/01/2019 Inactive Patient requests 90 days supply fenofibrate micronized 134 mg capsule RxNorm: 722641 1 Capsule(s) PO QD Due for updated fasting labs 03/31/2019 08/12/2019 Inactive dicyclomine 10 mg capsule RxNorm: 646273 1 Capsule(s) PO TID as needed 02/24/2019 05/20/2019 Inactive Flagyl 500 mg tablet RxNorm: 418726 1 Tablet(s) PO Q8H 02/24/201908/2019 Inactive ciprofloxacin 500 mg tablet RxNorm: 748262 1 Tablet(s) PO BID 02/2403/09/2019 Inactive Flagyl 500 mg tablet RxNorm: 060234 1 Tablet(s) PO Q6H 01/30/2019 Inactive ciprofloxacin 500 mg tablet RxNorm: 500146 1 Tablet(s) PO BID 01/3001/29/2019 Inactive Flagyl 500 mg tablet RxNorm: 497047 1 Tablet(s) PO Q6H 01/30/201904/2019 Inactive ciprofloxacin 500 mg tablet RxNorm: 358986 1 Tablet(s) PO BID 01/3002/05/2019 Inactive gabapentin 600 mg tablet RxNorm: 065885 TAKE 1 TABLET B Y MOUTH EVERY NIGHT AT BEDTIME 01/27/2019 04/24/2019 Inactive - First Attempt Ref: [id number] tramadol 50 mg tablet RxNorm: 474477 1 Tablet(s) PO TID as needed for pain along with two tylenol 01/08/2019 04/20/2019 Inactive fenofibrate micronized 134 mg capsule RxNorm: 510181 1 Capsule(s) PO QD Due for updated fasting labs 01/02/2019 03/30/2019 Inactive quinapril 40 mg tablet RxNorm: 372189 1 Tablet(s) PO QD 01/01/2019 Inactive Patient requests 90 days supply Protonix 40 mg tablet,delayed release RxNorm: 897230 TA KE 1 TABLET BY MOUTH TWICE A DAY 01/01/2019 03/31/2019 Inactive - First Attempt Ref: [id number] Protonix 40 mg tablet,delayed release RxNorm: 961223 TA KE 1 TABLET BY MOUTH TWICE A DAY 12/25/2018 12/31/2018 Inactive - First Attempt Ref: [id number] gabapentin 600 mg tablet RxNorm: 794305 TAKE 1 TABLET B Y MOUTH EVERY NIGHT AT BEDTIME 12/02/2018 01/26/2019 Inactive - First Attempt Ref: [id number] Protonix 40 mg tablet,delayed release RxNorm: 141823 1 Tablet(s ) PO BID 11/11/2018 12/24/2018 Inactive Protonix 40 mg tablet,delayed release RxNorm: 315089 1 Tablet(s ) PO BID 10/09/2018 11/10/2018 Inactive gabapentin 600 mg tablet RxNorm: 492265 1 Tablet(s) PO QHS 10/09/19 19 12/01/2018 Inactive quinapril 40 mg tablet RxNorm: 289204 1 Tablet(s) PO QD 1 TABLE T(S) PO QD 08/08/2018 08/07/2018 Inactive Patient requests 9 0 days supply quinapril 40 mg tablet RxNorm: 177323 1 Tablet(s) PO QD 08/08/2018 Inactive Patient requests 90 days supply meloxicam 15 mg tablet RxNorm: 757910 1 Tablet(s) PO QD 08/08/2018 Inactive gabapentin 300 mg capsule RxNorm: 062826 1 CAPSULE(S) P O QHS DUE FOR WELLNESS VISIT 08/07/2018 10/08/2018 Inactive due for followup meloxicam 15 mg tablet RxNorm: 602769 Tablet(s) 1 TABLET(S) PO QD 1 10/07/2017 08/07/2018 Inactive fenofibrate micronized 134 mg capsule RxNorm: 925404 1 Capsule(s) PO QD Needs updated fasting labs!!!!!! 07/08/2018 07/07/2018 Inactive fenofibrate micronized 134 mg capsule RxNorm: 542952 1 Capsule( s) PO QD 07/08/2018 01/01/2019 Inactive fenofibrate micronized 134 mg capsule RxNorm: 942949 1 Capsule(s) PO QD Needs updated fasting labs!!!!!! 06/21/2018 07/08/2018 Inactive Medrol (Daniel) 4 mg tablets in a dose pack RxNorm: 444146 Tablet(s) PO As Directed 05/06/2018 05/05/2018 Inactive Medrol (Daniel) 4 mg tablets in a dose pack RxNorm: 203724 Tablet(s) PO As Directed 05/06/2018 08/07/2018 Inactive quinapril 40 mg tablet RxNorm: 948615 1 TABLET(S) PO QD 05/02/2018 Inactive Patient requests 90 days supply fenofibrate micronized 134 mg capsule RxNorm: 536976 1 Capsule(s) PO QD Needs updated fasting labs 04/29/2018 05/28/2018 Inactive Move Free Joint Health 750 mg-100 mg-1.65 mg-108 mg tablet R xNorm: 1 Tablet(s) PO QD 02/12/2018 03/13/2018 Inactive fenofibrate micronized 134 mg capsule RxNorm: 260090 Ca psule(s) 1 CAPSULE(S) PO QD 01/29/2018 06/21/2018 Inactive quinapril 40 mg tablet RxNorm: 434102 1 TABLET(S) PO QD 11/26/2017 Inactive Patient requests 90 days supply fenofibrate micronized 134 mg capsule RxNorm: 527820 1 CAPSULE( S) PO QD 11/06/2017 01/29/2018 Inactive gabapentin 300 mg capsule RxNorm: 003783 1 CAPSULE(S) P O QHS DUE FOR WELLNESS VISIT 10/24/2017 07/20/2018 Inactive due for followup meloxicam 15 mg tablet RxNorm: 011374 1 TABLET(S) PO QD 10/24/2017 Inactive quinapril 40 mg tablet RxNorm: 821097 1 Tablet(s) PO QD 10/24/2017 Inactive fenofibrate micronized 134 mg capsule RxNorm: 020405 1 Capsule( s) PO QD 08/22/2017 11/05/2017 Inactive fenofibrate micronized 134 mg capsule RxNorm: 615071 1 Capsule( s) PO QD 08/22/2017 08/21/2017 Inactive quinapril 20 mg tablet RxNorm: 210638 1 Tablet(s) PO QD 08/13/2017 Inactive gabapentin 300 mg capsule RxNorm: 026269 1 Capsule(s) P O QHS Due for wellness visit 08/06/2017 10/23/2017 Inactive due for followup gabapentin 300 mg capsule RxNorm: 787382 1 Capsule(s) P O QHS Due for wellness visit 08/02/2017 08/05/2017 Inactive due for followup meloxicam 15 mg tablet RxNorm: 774764 1 Tablet(s) PO QD 08/01/2017 Inactive gabapentin 300 mg capsule RxNorm: 401053 1 Capsule(s) P O QHS Due for wellness visit 08/01/2017 08/01/2017 Inactive due for followup gabapentin 300 mg capsule RxNorm: 101264 1 Capsule(s) P O QHS Due for wellness visit 08/01/2017 08/02/2017 Inactive gabapentin 300 mg capsule RxNorm: 568609 1 Capsule(s) PO QHS 201605/12/2017 Inactive quinapril 10 mg tablet RxNorm: 529017 1 Tablet(s) PO QD replace s quinapril hct 02/12/2017 08/12/2017 Inactive meloxicam 15 mg tablet RxNorm: 388289 1 Tablet(s) PO QD 02/05/2017 Inactive quinapril 10 mg tablet RxNorm: 909720 1 Tablet(s) PO QD replace s quinapril hct 11/16/2016 02/12/2017 Inactive gabapentin 300 mg capsule RxNorm: 687992 1 Capsule(s) PO QHS 201602/12/2017 Inactive quinapril 10 mg tablet RxNorm: 746760 1 Tablet(s) PO QD replace s quinapril hct 10/16/2016 11/15/2016 Inactive gabapentin 300 mg capsule RxNorm: 832845 1 Capsule(s) PO QHS 201511/15/2016 Inactive quinapril 10 mg tablet RxNorm: 678429 1 Tablet(s) PO QD replace s quinapril hct 07/19/2016 10/15/2016 Inactive meloxicam 15 mg tablet RxNorm: 777124 1 Tablet(s) PO QD 07/10/2016 Inactive meloxicam 15 mg tablet RxNorm: 455212 TAKE ONE TABLET BY MOUTH LUKE Y 07/10/2016 07/09/2016 Inactive meloxicam 15 mg tablet RxNorm: 780284 1 Tablet(s) PO QD 07/06/2016 Inactive meloxicam 15 mg tablet RxNorm: 317447 1 Tablet(s) PO QD 06/09/2016 Inactive Multivitamin & Mineral Formula tablet RxNorm: 1 Tablet(s) PO Q D 06/02/2016 07/01/2016 Inactive tamsulosin 0.4 mg capsule RxNorm: 705759 1 Capsule(s) PO QHS 201507/01/2016 Inactive Move Free Joint Health 750 mg-100 mg-1.65 mg-108 mg tablet R xNorm: 1 Tablet(s) PO QD 06/02/2016 07/01/2016 Inactive gabapentin 300 mg capsule RxNorm: 197271 1 Capsule(s) PO QHS 201508/27/2016 Inactive gabapentin 300 mg capsule RxNorm: 422830 Capsule(s) ALFONZO E ONE CAPSULE BY MOUTH AT BEDTIME 02/28/2016 05/27/2016 Inactive quinapril 10 mg-hydrochlorothiazide 12.5 mg tablet RxNorm: 3 83735 Tablet(s) TAKE ONE TABLET BY MOUTH EVERY MORNING 01/14/2016 07/18/2016 Inactive gabapentin 300 mg capsule RxNorm: 123699 TAKE ONE CAPSULE BY [facility] AT BEDTIME 12/28/2015 02/27/2016 Inactive Urecholine 25 mg tablet RxNorm: 582908 1 Tablet(s) PO TID 11/09/2015 07/18/2016 Inactive phenazopyridine 100 mg tablet RxNorm: 4354547 1 Tablet(s ) PO TID as needed for bladder spasms. 11/08/2015 11/08/2015 Inactive quinapril 10 mg-hydrochlorothiazide 12.5 mg tablet RxNorm: 3 17462 TAKE ONE TABLET BY MOUTH EVERY MORNING 10/15/2015 01/13/2016 Inactive gabapentin 300 mg capsule RxNorm: 459022 1 Tablet(s) PO QD TAKE ONE CAPSULE BY MOUTH EVERY NIGHT AT BEDTIME 09/23/2015 12/21/2015 Inactive quinapril 10 mg-hydrochlorothiazide 12.5 mg tablet RxNorm: 3 82370 Tablet(s) TAKE ONE TABLET BY MOUTH EVERY MORNING 07/14/2015 10/14/2015 Inactive gabapentin 300 mg capsule RxNorm: 241787 1 Tablet(s) PO QD TAKE ONE CAPSULE BY MOUTH EVERY NIGHT AT BEDTIME 06/25/2015 09/23/2015 Inactive prednisone 20 mg tablet RxNorm: 007463 1 Tablet(s) PO QD 06/14/2015 0 06/20/2015 Inactive cephalexin 500 mg capsule RxNorm: 759239 1 Capsule(s) PO BID 201405/27/2015 Inactive mupirocin 2 % topical ointment RxNorm: 862180 TOP BID 05/18/2015 0 06/13/2015 Inactive quinapril 10 mg-hydrochlorothiazide 12.5 mg tablet RxNorm: 3 57890 Tablet(s) TAKE ONE TABLET BY MOUTH EVERY MORNING 04/06/2015 07/14/2015 Inactive gabapentin 300 mg capsule RxNorm: 931186 1 Capsule(s) PO QHS 201404/01/2015 Inactive [SAVINGS FOR NON-COVERED LILIANA GS -- BIN:315995, PCN: ASPROD1, Group: XXXXX, ID# [id number], Questions: . THIS IS NOT INSURANCE.] gabapentin 300 mg capsule RxNorm: 999063 1 Capsule(s) PO QHS 201406/25/2015 Inactive [SAVINGS FOR NON-COVERED LILIANA GS -- BIN:828236, PCN: ASPROD1, Group: XXXXX, ID# [id number], Questions: . THIS IS NOT INSURANCE.] quinapril 10 mg-hydrochlorothiazide 12.5 mg tablet RxNorm: 3 27190 TAKE ONE TABLET BY MOUTH EVERY MORNING 12/11/2014 04/05/2015 Inactive gabapentin 300 mg capsule RxNorm: 658159 1 Capsule(s) PO QHS 201404/02/2015 Inactive [SAVINGS FOR NON-COVERED LILIANA GS -- BIN:612009, PCN: ASPROD1, Group: XXXXX, ID# [id number], Questions: . THIS IS NOT INSURANCE.] cyclobenzaprine 10 mg tablet RxNorm: 144721 1 Tablet(s) PO TID as needed for muscle spasm for muscle spasm 12/02/2014 02/21/2015 Inactive [S AVINGS FOR NON- COVERED DRUGS -- BIN:046190, PCN: ASPROD1, Group: XXXXX, ID# [id number], Questions: . THIS IS NOT INSURANCE.] gabapentin 100 mg capsule RxNorm: 895678 1 Capsule(s) PO QHS 201412/01/2014 Inactive [SAVINGS FOR NON-COVERED LILIANA GS -- BIN:765891, PCN: ASPROD1, Group: XXXXX, ID# [id number], Questions: . THIS IS NOT INSURANCE.] ibuprofen 800 mg tablet RxNorm: 953867 1 Tablet(s) PO T ID as needed low back pain 11/11/2014 11/23/2014 Inactive [SAVINGS FOR NON -COVERED DRUGS -- BIN:811691, PCN: ASPROD1, Group: XXXXX, ID# [id number], Questions: . THIS IS NOT INSURANCE.] ibuprofen 800 mg tablet RxNorm: 674148 1 Tablet(s) PO T ID as needed low back pain 11/09/2014 11/10/2014 Inactive [SAVINGS FOR NON -COVERED DRUGS -- BIN:366515, PCN: ASPROD1, Group: XXXXX, ID# [id number], Questions: . THIS IS NOT INSURANCE.] Zorvolex 35 mg capsule RxNorm: 8857891 1 Tablet(s) PO TID 08/27/2014 10/01/2014 Inactive [SAVINGS FOR UNINSURED PATIENTS -- BIN:0 79930, PCN: ASPROD1, Group: AME08, ID# [id number], Process claim through [employer], for questions: . THIS IS NOT INSURANCE.] quinapril 10 mg-hydrochlorothiazide 12.5 mg tablet RxNorm: 3 74026 1 Tablet(s) PO QAM 08/27/2014 11/24/2014 Inactive Lidoderm 5 % (700 mg/patch) adhesive patch RxNorm: 3999289 Application TOP for 12hours then off for pain 08/18/2014 02/21/2015 Inactive [SAVIN GS FOR UNINSURED PATIENTS -- BIN:101297, PCN: ASPROD1, Group: AME08, ID# [id number], Process claim through [employer], for questions: . THIS IS NOT INSURANCE.] Zorvolex 35 mg capsule RxNorm: 1406480 1 Tablet(s) PO TID 08/13/2014 08/12/2014 Inactive Zorvolex 35 mg capsule RxNorm: 3049654 1 Tablet(s) PO TID 08/13/2014 08/24/2014 Inactive [SAVINGS FOR UNINSURED PATIENTS -- BIN:0 49955, PCN: ASPROD1, Group: AME08, ID# [id number], Process claim through [employer], for questions: . THIS IS NOT INSURANCE.] Aspirin Child 81 mg chewable tablet RxNorm: 001634 1 Tablet(s) PO QD No Start Date Active ibuprofen 800 mg tablet RxNorm: 511327 1 Tablet(s) PO T ID as needed low back pain No Start Date 11/08/2014 Inactive cyclobenzaprine 10 mg tablet RxNorm: 007551 1 Tablet(s) PO TID No S tart Date 08/12/2017 Inactive garlic 1,000 mg capsule RxNorm: 795400 1 Capsule(s) PO QD No Start Date 04/22/2019 Inactive tramadol 50 mg tablet RxNorm: 024086 1 Tablet(s) PO Q4-6H as ne eded for pain No Start Date 02/21/2015 Inactive tramadol 50 mg tablet RxNorm: 722728 1 Tablet(s) PO TID as needed for pain along with two tylenol No Start Date 01/07/2019 Inactive krill oil oral RxNorm: 00778 oral No Start Date 11/11/2018 Inacti ve Vitamin D3 2,000 unit tablet RxNorm: 679089 1 Tablet(s) PO QD No St art Date 08/12/2019 Inactive gabapentin 100 mg tablet RxNorm: 175601 1 Tablet(s) PO QD No Start Date 11/10/2014 Inactive Zofran 4 mg tablet RxNorm: 869513 1 Tablet(s) PO Q6H as needed No S tart Date 08/12/2019 Inactive Elimite 5 % topical cream RxNorm: 100284 1 Application TOP QHS apply head to toe and was off in morning No Start Date 05/18/2019 Inactive gabapentin 100 mg capsule RxNorm: 623453 1 Capsule(s) PO QHS No Sta rt Date 11/10/2014 Inactive aspirin 325 mg tablet RxNorm: 165988 2 Tablet(s) PO QD No Start Date 08/17/2014 Inactive Fish Oil 1,000 mg capsule RxNorm: 1 Capsule(s) PO QD No Start Date 10/08/2018 Inactive quinapril 10 mg-hydrochlorothiazide 12.5 mg tablet RxNorm: 3 32301 1 Tablet(s) PO QAM No Start Date 08/26/2014 Inactive quinapril 40 mg tablet RxNorm: 999591 1 Tablet(s) PO QD No Start Da te 10/23/2017 Inactive Medrol (Daniel) 4 mg tablets in a dose pack RxNorm: 694824 Tablet(s) PO As Directed No Start Date 05/05/2018 Inactive Urecholine 25 mg tablet RxNorm: 197811 1 Tablet(s) PO TID No Start Date 11/08/2015 Inactive cyclobenzaprine 10 mg tablet RxNorm: 949853 1/2-1 Table t(s) PO TID as needed for muscle spasm No Start Date 12/01/2014 Inactive tamsulosin 0.4 mg capsule RxNorm: 333334 2 Capsule(s) PO QPM No Sta rt Date 08/12/2019 Inactive hydrocodone 5 mg-acetaminophen 325 mg tablet RxNorm: 149533 1 -2 Tablet(s) PO Q6H as needed No Start Date 05/20/2019 Inactive loratadine 10 mg tablet RxNorm: 224360 1 Tablet(s) PO QD No Start D ate 07/07/2014 Inactive Medication Administered No Medication Administered data Immunizations Vaccine Codes Date Status Influenza CVX: 141 07/21/2019 Results Observation Observation Code Item Item Code Result Date S ervice Location CULTURE, URINE, ROUTINE 395 CULTURE SEE NOTE 1 10/15/[address] [address] CULTURE, URINE, ROUTINE 395 CULTURE, URINE, ROUTINE SEE NOTE 08/15/[address] [address] CBC (H/H, RBC, INDICES, WBC, PLT) 19049 WHITE BLOOD CELL COU NT 7.9 Thousand/uL 08/14/[address] [address] CBC (H/H, RBC, INDICES, WBC, PLT) 08754 RED BLOOD CELL COUNT 4.93 Million/uL 08/14/[address] [address] CBC (H/H, RBC, INDICES, WBC, PLT) 67778 HEMOGLOBIN 15 .4 g/dL 08/14/[address] [address] CBC (H/H, RBC, INDICES, WBC, PLT) 15354 HEMATOCRIT 45 .0 % 08/14/[address] [address] CBC (H/H, RBC, INDICES, WBC, PLT) 65878 MCV 91 .3 fL 08/14/[address] [address] CBC (H/H, RBC, INDICES, WBC, PLT) 20873 MCH 31 .2 pg 08/14/[address] [address] CBC (H/H, RBC, INDICES, WBC, PLT) 79226 MCHC 34 .2 g/dL 08/14/[address] [address] CBC (H/H, RBC, INDICES, WBC, PLT) 32458 RDW 12 .7 % 08/14/2019 [facility] [address] CBC (H/H, RBC, INDICES, WBC, PLT) 65470 PLATELET COUNT 214 Thousand/uL 08/14/2019 [facility] [address] [address] CBC (H/H, RBC, INDICES, WBC, PLT) 70489 MPV 11 .5 fL 08/14/2019 [facility] [address] [place] [address] COMPREHENSIVE METABOLIC PANEL 09260 Glucose 113 mg /dL 08/14/2019 [facility] [address] [address] COMPREHENSIVE METABOLIC PANEL 87039 UREA NITROGEN (BUN) 16 mg/dL 08/14/2019 [facility] [address] [address] COMPREHENSIVE METABOLIC PANEL 87107 CREATININE 0.86 m g/dL 08/14/2019 [facility] [address] [address] COMPREHENSIVE METABOLIC PANEL 77494 eGFR NON-AFR. ROMANIAN 92 mL/min/1.73m2 08/14/2019 [facility] [address] [address] COMPREHENSIVE METABOLIC PANEL 96095 eGFR 106 mL/min/1.73m2 08/14/2019 [facility] [address] [address] COMPREHENSIVE METABOLIC PANEL 64868 BUN/CREATININE RATIO NOT APPLICABLE (calc) 08/14/2019 [facility] [address] [place] [address] COMPREHENSIVE METABOLIC PANEL 93363 SODIUM 141 mm ol/L 08/14/2019 [facility] [address] [place] [address] COMPREHENSIVE METABOLIC PANEL 98875 POTASSIUM 4.1 mm ol/L 08/14/2019 [facility] [address] [place] [address] COMPREHENSIVE METABOLIC PANEL 64176 CHLORIDE 102 mm ol/L 08/14/2019 [facility] [address] [address] COMPREHENSIVE METABOLIC PANEL 08475 CARBON DIOXIDE 28 mmol/L 08/14/2019 [facility] [address] [address] COMPREHENSIVE METABOLIC PANEL 46798 CALCIUM 9.7 mg /dL 08/14/2019 [facility] [address] [address] COMPREHENSIVE METABOLIC PANEL 07330 PROTEIN, TOTAL 6. 7 g/dL 08/14/[address] [facility] [address] COMPREHENSIVE METABOLIC PANEL 83076 ALBUMIN 4.3 g/ dL 08/14/2019 [facility] [address] [address] COMPREHENSIVE METABOLIC PANEL 23008 GLOBULIN 2.4 g/ dL(calc) 08/14/2019 [facility] [address] [address] COMPREHENSIVE METABOLIC PANEL 47840 ALBUMIN/GLOBULIN RATIO 1.8 (calc) 08/14/2019 [facility] [address] [address] COMPREHENSIVE METABOLIC PANEL 81268 BILIRUBIN, TOTAL 1.0 mg/dL 08/14/2019 [facility] [address] [address] COMPREHENSIVE METABOLIC PANEL 23282 ALKALINE PHOSPHATASE 56 U/L 08/14/2019 [facility] [address] [address] COMPREHENSIVE METABOLIC PANEL 31556 AST 18 U/L 08/14/[address] [facility] [address] COMPREHENSIVE METABOLIC PANEL 42119 ALT 28 U/L 08/14/[address] [facility] [address] MAGNESIUM 56489 MAGNESIUM 2.0 mg/dL 06/06/[address] [facility] [address] COMPREHENSIVE METABOLIC PANEL 36566 Glucose 106 mg /dL 06/06/[address] [facility] [address] COMPREHENSIVE METABOLIC PANEL 18441 UREA NITROGEN (BUN) 22 mg/dL 06/06/2019 [facility] [address] [address] COMPREHENSIVE METABOLIC PANEL 87410 CREATININE 1.29 m g/dL 06/06/[address] [facility] [address] COMPREHENSIVE METABOLIC PANEL 49459 eGFR NON-AFR. ROMANIAN 58 mL/min/1.73m2 06/06/2019 [facility] [address] [address] COMPREHENSIVE METABOLIC PANEL 03267 eGFR 67 mL/min/1.73m2 06/06/[address] [facility] [address] COMPREHENSIVE METABOLIC PANEL 23277 BUN/CREATININE RATIO 17 (calc) 06/06/[address] [facility] [address] COMPREHENSIVE METABOLIC PANEL 18942 SODIUM 138 mm ol/L 06/06/[address] [facility] [address] COMPREHENSIVE METABOLIC PANEL 61497 POTASSIUM 4.2 mm ol/L 06/06/2019 [facility] [address] COMPREHENSIVE METABOLIC PANEL 68810 CHLORIDE 101 mm ol/L 06/06/[address] [facility] [address] COMPREHENSIVE METABOLIC PANEL 59914 CARBON DIOXIDE 29 mmol/L 06/06/[address] [facility] [address] COMPREHENSIVE METABOLIC PANEL 96629 CALCIUM 9.6 mg /dL 06/06/[address] [facility] [address] COMPREHENSIVE METABOLIC PANEL 73868 PROTEIN, TOTAL 6. 9 g/dL 06/06/2019 [facility] [address] COMPREHENSIVE METABOLIC PANEL 78981 ALBUMIN 4.4 g/ dL 06/06/[address] [facility] [address] COMPREHENSIVE METABOLIC PANEL 82237 GLOBULIN 2.5 g/ dL(calc) 06/06/[address] [facility] [address] COMPREHENSIVE METABOLIC PANEL 85724 ALBUMIN/GLOBULIN RATIO 1.8 (calc) 06/06/[address] [facility] [address] COMPREHENSIVE METABOLIC PANEL 04758 BILIRUBIN, TOTAL 0.7 mg/dL 06/06/[address] [facility] [address] COMPREHENSIVE METABOLIC PANEL 87261 ALKALINE PHOSPHATASE 45 U/L 06/06/[address] [address] COMPREHENSIVE METABOLIC PANEL 69317 AST 21 U/L 06/06/2019 [facility] [address] [address] COMPREHENSIVE METABOLIC PANEL 08132 ALT 34 U/L 06/06/2019 [facility] [address] [address] CULTURE, URINE, ROUTINE 395 CULTURE, URINE, ROUTINE SEE NOTE 04/23/2019 [facility]un [address] [address] CULTURE, URINE, ROUTINE 395 CULTURE SEE NOTE 0 04/23/2019 [facility] [address] [address] EXTRA 1014 EXTRA TUBE RECEIVED 04/22 [facility] [address] [address] EXTRA 1014 SPECIMEN TYPE RECEIVED: LAV 0 04/22/2019 [facility] [address] [address] COMPREHENSIVE METABOLIC PANEL 64002 Glucose 94 mg/ dL 04/22/2019 [facility] [address] [address] COMPREHENSIVE METABOLIC PANEL 92736 UREA NITROGEN (BUN) 20 mg/dL 04/22/2019 [facility] [address] [address] COMPREHENSIVE METABOLIC PANEL 88114 CREATININE 1.30 m g/dL 04/22/2019 [facility] [address] [address] COMPREHENSIVE METABOLIC PANEL 90388 eGFR NON-AFR. ROMANIAN 58 mL/min/1.73m2 04/22/2019 [facility] [address] [address] COMPREHENSIVE METABOLIC PANEL 86692 eGFR 67 mL/min/1.73m2 04/22/2019 [facility] [address] [address] COMPREHENSIVE METABOLIC PANEL 62422 BUN/CREATININE RATIO 15 (calc) 04/22/2019 [facility] [address] [address] COMPREHENSIVE METABOLIC PANEL 72559 SODIUM 139 mm ol/L 04/22/2019 [facility] [address] [address] COMPREHENSIVE METABOLIC PANEL 21152 POTASSIUM 4.2 mm ol/L 04/22/[address] [facility] [address] COMPREHENSIVE METABOLIC PANEL 16623 CHLORIDE 104 mm ol/L 04/22/[address] [facility] [address] COMPREHENSIVE METABOLIC PANEL 69990 CARBON DIOXIDE 27 mmol/L 04/22/[address] [facility] [address] COMPREHENSIVE METABOLIC PANEL 87877 CALCIUM 9.9 mg /dL 04/22/[address] [facility] [address] COMPREHENSIVE METABOLIC PANEL 90950 PROTEIN, TOTAL 7. 1 g/dL 04/22/[address] [facility] [address] COMPREHENSIVE METABOLIC PANEL 71684 ALBUMIN 4.6 g/ dL 04/22/2019 [facility] [address] COMPREHENSIVE METABOLIC PANEL 12673 GLOBULIN 2.5 g/ dL(calc) 04/22/2019 [facility] [address] COMPREHENSIVE METABOLIC PANEL 71423 ALBUMIN/GLOBULIN RATIO 1.8 (calc) 04/22/2019 [facility] [address] COMPREHENSIVE METABOLIC PANEL 57452 BILIRUBIN, TOTAL 0.4 mg/dL 04/22/2019 [facility] [address] COMPREHENSIVE METABOLIC PANEL 54753 ALKALINE PHOSPHATASE 53 U/L 04/22/2019 [facility] [employer] [facility] [employer] [address] COMPREHENSIVE METABOLIC PANEL 40608 AST 21 U/L 04/22/2019 [facility] [address] COMPREHENSIVE METABOLIC PANEL 67511 ALT 34 U/L 04/22/[address] [facility] [address] CULTURE, URINE, ROUTINE 395 CULTURE, URINE, ROUTINE SEE NOTE 01/31/[address] [address] Procedures Procedure Codes Date CULTURE, AEROBIC BACTERIA CPT-4: 23433 10/27/2019 URINALYSIS NONAUTO W/O SCOPE CPT-4: 17741 10/02/2019 URINE CULTURE/ COLONY COUNT CPT-4: 56493 10/02/2019 ROUTINE VENIPUNCTURE CPT-4: 72295 08/13/2019 URINALYSIS NONAUTO W/O SCOPE CPT-4: 83604 08/13/2019 CULTURE, URINE, ROUTINE CPT-4: 395 08/13/2019 COMPREHENSIVE METABOLIC PANEL CPT-4: 21802 08/13/2019 CBC (H/H, RBC, INDICES, WBC, PLT) CPT-4: 67626 2018 COMPREHENSIVE METABOLIC PANEL CPT-4: 50557 06/05/2019 MAGNESIUM CPT-4: 07440 06/05/2019 DEXAMETHASONE SODIUM PHOS CPT-4: J1100 05/21/2019 THER/PROPH/DIAG INJ SC/IM CPT-4: 25914 05/21/2019 TRIAMCINOLONE ACET INJ NOS CPT-4: J3301 05/21/2019 ROUTINE VENIPUNCTURE CPT-4: 88691 04/21/2019 COMPREHENSIVE METABOLIC PANEL CPT-4: 45485 04/21/2019 EXTRA CPT-4: 1014 04/21/2019 CULTURE, URINE, ROUTINE CPT-4: 395 04/21/2019 URINALYSIS NONAUTO W/O SCOPE CPT-4: 01204 04/21/2019 URINALYSIS NONAUTO W/O SCOPE CPT-4: 43971 01/29/2019 CULTURE, URINE, ROUTINE CPT-4: 395 01/29/2019 DRAIN/INJECT JOINT/BURSA CPT-4: 46734 02/19/2018 TRIAMCINOLONE ACET INJ NOS CPT-4: J3301 02/19/2018 DEXAMETHASONE SODIUM PHOS CPT-4: J1100 02/19/2018 THER/PROPH/DIAG INJ SC/IM CPT-4: 24158 02/12/2018 TRIAMCINOLONE ACET INJ NOS CPT-4: J3301 02/12/2018 DEXAMETHASONE SODIUM PHOS CPT-4: J1100 02/12/2018 CEFTRIAXONE SODIUM INJECTION CPT-4: J0696 12/03/2017 THER/PROPH/DIAG INJ SC/IM CPT-4: 04816 12/03/2017 THER/PROPH/DIAG INJ SC/IM CPT-4: 17764 12/03/2017 METHYLPREDNISOLONE INJECTION CPT-4: J2930 12/03/2017 URINALYSIS NONAUTO W/O SCOPE CPT-4: 81004 08/13/2017 STREP A ASSAY W/OPTIC CPT-4: 34405 02/13/2017 DESTRUCT PREMALG LESION (Cryosurgery) CPT-4: 98647 Vital Signs Date Vital 10/27/2019 Blood Pressure [...] 1: 128/78 Code: 8480-6 BMI: 36.0 Code: 08618-7 Heart Rate 1: 68 bpm Height: 5'7" [...] 1: 138/86 Code: 8480-6 BMI: 35.6 Code: 71693-6 Heart Rate 1: 68 bpm Height: 5'7" SpO2: 95% Temperature: 36.6 (C) / 97.8 (F) Weight: 227 lbs 12/03/2017 Blood Pressure 1: 134/84 Code: 8480-6 BMI: 34.3 Code: 58690-2 Heart Rate 1: 68 bpm Height: 5'7" Respiratory Rate: 20 bpm SpO2: 96% Tempera ture: 35.9 (C) / 96.6 (F) Weight: 219 lbs 09/11/2017 Blood Pressure 1: 140/86 Code: 8480-6 BMI: 34.9 Code: 71414-5 Heart Rate 1: 84 bpm Height: 5'7" Respiratory Rate: 20 bpm SpO2: 95% Tempera ture: 36.7 (C) / 98.1 (F) Weight: 223 lbs 08/13/2017 Blood Pressure 1: 142/94 Code: 8480-6 BMI: 34.5 Code: 51176-5 Heart Rate 1: 76 bpm Height: 5'7" Respiratory Rate: 20 bpm SpO2: 96% Tempera ture: 37.1 (C) / 98.8 (F) Weight: 220 lbs 11/17/2016 Blood Pressure 1: 118/78 Code: 8480-6 He art Rate 1: 64 bpm 07/19/2016 Blood Pressure 1: 112/58 Code: 8480-6 BMI: 31.6 Code: 29551-6 Heart Rate 1: 88 bpm Height: 5'7" Respiratory Rate: 22 bpm SpO2: 98% Tempera ture: 36.3 (C) / 97.4 (F) Weight: 202 lbs 06/09/2016 Blood Pressure 1: 138/84 Code: 8480-6 BMI: 32.1 Code: 15114-6 Heart Rate 1: 58 bpm Height: 5'7" Respiratory Rate: 20 bpm SpO2: 97% Tempera ture: 36.6 (C) / 97.8 (F) Weight: 205 lbs 11/08/2015 Blood Pressure 1: 142/80 Code: 8480-6 BMI: 32.4 Code: 25446-4 Heart Rate 1: 76 bpm Height: 5'7" Respiratory Rate: 20 bpm Temperature: 36 .6 (C) / 97.9 (F) Weight: 207 lbs 06/14/2015 Blood Pressure 1: 126/80 Code: 8480-6 Heart Rate 1: 84 bpm Respiratory Rate: 20 bpm Temperature: 36.8 (C) / 98.2 (F) Weight: 206 lbs 05/18/2015 Blood Pressure 1: 124/80 Code: 8480-6 BMI: 32.3 Code: 95678-8 Heart Rate 1: 68 bpm Height: 5'7" Respiratory Rate: 20 bpm Temperature: 36 .4 (C) / 97.6 (F) Weight: 206 lbs 02/22/2015 Blood Pressure 1: 126/78 Code: 8480-6 BMI: 32.1 Code: 41774-9 Heart Rate 1: 76 bpm Height: 5'7" Respiratory Rate: 20 bpm Temperature: 36 .6 (C) / 97.9 (F) Weight: 205 lbs 12/02/2014 Blood Pressure 1: 124/80 Code: 8480-6 BMI: 32.7 Code: 40936-1 Heart Rate 1: 70 bpm Height: 5'7" Respiratory Rate: 18 bpm Temperature: 36 .6 (C) / 97.9 (F) Weight: 209 lbs 08/18/2014 Blood Pressure 1: 132/94 Code: 8480-6 BMI: 34.5 Code: 93714-3 Heart Rate 1: 84 bpm Height: 5'6" Respiratory Rate: 20 bpm Temperature: 36 .6 (C) / 97.9 (F) Weight: 217 lbs 07/08/2014 Blood Pressure 1: 142/88 Code: 8480-6 BMI: 34.3 Code: 65064-5 Heart Rate 1: 72 bpm Height: 5'6" [...] 12/02/2014 skin lesion 08/18/2014 ~generic 07/08/2014 [facility] Encounter Performer Location Codes Date ([id number]) OFFICE/OUTPATIENT VISIT EST Diagnosis: Disorder of the skin and subcutaneous tissue, unspecified[ICD10: L98.9] Diagnosis: Infected sebaceous cyst[ICD10: L72.3] Diagnosis: Local infection of the skin and subcutaneous tissue, unspecified[ICD10: L08.9] Lashell Heathanne PROCTOR [facility] CPT-4 : 63498 10/27/2019 ([id number]) OFFICE/OUTPATIENT VISIT EST Diagnosis: Suprapubic abdominal pain[ICD10: R10.2] Diagnosis: Aortic regurgitation[ICD10: I35.1] Sapna Johnston PAULYDOMINIC [facility] CPT-4: 86093 10/02/2019 ([id number]) OFFICE/OUTPATIENT VISIT EST Diagnosis: Chest pain[ICD10: R07.9] Lashell Heathanne GOODSON MANUELITO [facility] CPT-4: 26084 08/25/2019 ([id number]) OFFICE/OUTPATIENT VISIT EST Diagnosis: Thoracic back pain[ICD10: M54.6] Diagnosis: Disorder of kidney and ureter, unspecified[ICD10: N28.9] Diagnosis: Personal history of nicotine dependence[ICD10: Z87.891] 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] Lashell Johnston CANDICE ANGELY [facility] CPT-4: 67871 08/13/2019 ([id number]) OFFICE/OUTPATIENT VISIT EST Diagnosis: Sigmoid diverticulitis[ICD10: K57.32] Diagnosis: Renal insufficiency[ICD10: N28.9] Diagnosis: Jock itch[ICD10: B35.6] Sapna PARDO DO [facility] CPT-4: 24354 07/03/2019 ([id number]) OFFICE/OUTPATIENT VISIT EST Diagnosis: Cramp and spasm[ICD10: R25.2] Diagnosis: Disorder of kidney and ureter, unspecified[ICD10: N28.9] Lashell LIVE DO [facility] CPT-4: 00762 06/05/2019 ([id number]) OFFICE/OUTPATIENT VISIT EST Diagnosis: Other pruritus[ICD10: L29.8] Diagnosis: Pain in right knee[ICD10: M25.561] Lashell LIVE DO [facility] CPT-4: 85466 05/21/2019 ([id number]) NURSE/OUTPATIENT VISIT EST Diagnosis: Edema, unspecified[ICD10: R60.9] Sapna LIVE [facility] CPT-4: 69206 04/21/2019 ([id number]) OFFICE/OUTPATIENT VISIT EST Diagnosis: Diverticulitis of large intestine without perforation or abscess without bleeding[ICD10: K57.32] Diagnosis: Snoring[ICD10: R06.83] Diagnosis: Other constipation[ICD10: K59.09] Lashell LIVE DO [facility] CPT-4: 93894 02/24/2019 ([id number]) OFFICE/OUTPATIENT VISIT EST Diagnosis: Diverticulitis of large intestine without perforation or abscess with bleeding[ICD10: K57.33] Nancy BRUNSONLINE Vickie LIVE [employer] [facility] CPT-4: 80006 02/04/2019 ([id number]) OFFICE/OUTPATIENT VISIT EST Diagnosis: Left lower quadrant pain[ICD10: R10.32] Nancy Mendiola ALYSSA DAIGLEJANE Vickie LIVE DO [facility] CPT-4: 69460 01/29/2019 OFFICE/OUTPATIENT VISIT EST Diagnosis: Dermatitis, unspecified[ICD10: L30.9] Diagnosis: Gastro-esophageal reflux disease without esophagitis[ICD10: K21.9] Diagnosis: Palpitations[ICD10: R00.2] Sapna AU DO [facility] CPT-4: 06548 12/19/2018 ([id number]) OFFICE/OUTPATIENT VISIT EST Diagnosis: Gastro-esophageal reflux disease without esophagitis[ICD10: K21.9] Diagnosis: Dysphagia, pharyngoesophageal phase[ICD10: R13.14] Sapna LIVE DO [facility] CPT-4: 75764 11/11/2018 ([id number]) PREV VISIT EST AGE 40-64 Diagnosis: Encounter [...] disorders of digestive system[ICD10: K91.89] Lashell LIVE DO [facility] CPT-4: 99 396 10/09/2018 ([id number]) OFFICE/OUTPATIENT VISIT EST Diagnosis: Pain in right knee[ICD10: M25.561] Diagnosis: Pain in right hip[ICD10: M25.551] Lashell LIVE DO [facility] CPT-4: 94204 02/12/2018 OFFICE/OUTPATIENT VISIT EST Diagnosis: Essential (primary) hypertension[ICD10: I10] Diagnosis: Other chest pain[ICD10: R07.89] Lashell LIVE DO [facility] CPT-4: 98937 12/03/2017 ([id number]) OFFICE/OUTPATIENT VISIT EST Diagnosis: Essential (primary) hypertension[ICD10: I10] Sapna LIVE DO [facility] CPT-4: 81401 09/11/2017 ([id number]) PREV VISIT EST AGE 40-64 Diagnosis: Encounter for general adult medical examination without abnormal findings[ICD10: Z00.00] Diagnosis: Essential (primary) hypertension[ICD10: I10] Diagnosis: Left lower quadrant pain[ICD10: R10.32] Diagnosis: Left upper quadrant pain[ICD10: R10.12] Diagnosis: Other intervertebral disc degeneration, 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 CPT-4: 25941 08/13/2017 ([id number]) OFFICE/OUTPATIENT VISIT EST Diagnosis: Acute pharyngitis, unspecified[ICD10: J02.9] Sapna LIVE 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 CPT-4: 72055 11/08/2015 ([id number]) OFFICE/OUTPATIENT VISIT EST Diagnosis: DERMATITIS NOS[ICD9: 692.9] Diagnosis: SEBACEOUS CYST[ICD9: 706.2] Sapna BRUNSONLINE JefryAmarjit Claudio DANITZA [facility] CPT-4: 92545 06/14/2015 OFFICE/OUTPATIENT VISIT EST Diagnosis: LOCAL SKIN INFECTION[ICD9: 686.9] Diagnosis: FOLLICULITIS[ICD9: 704.8] Chelsie NoriegaAlysiafélixjusta SAPNA CappsAmarjit [facility] CPT-[facility]: 77683 05/18/2015 ([id number]) OFFICE/OUTPATIENT VISIT EST Diagnosis: Constipation[ICD9: 564.00] Sapna JOSE CPT-4: 45273 02/22/2015 ([id number]) OFFICE/OUTPATIENT VISIT EST Diagnosis: Thoracic back pain[ICD9: 724.1] Diagnosis: Thoracic degenerative disc disease[ICD9: 722.51] Diagnosis: Scoliosis[ICD9: 737.30] Sapna PARDO DO [facility] CPT-4: 29327 12/02/2014 ([id number]) OFFICE/OUTPATIENT VISIT EST Diagnosis: Thoracic back pain[ICD9: 724.1] Diagnosis: ACTINIC KERATOSIS[ICD9: 702.0] Sapna LIVE DO [facility] CPT-4: 48208 08/18/2014 OFFICE/OUTPATIENT VISIT NEW Diagnosis: HYPERTENSION[ICD9: 401.9] Diagnosis: Thoracic back pain[ICD9: 724.1] Diagnosis: GERD[ICD9: 530.81] Diagnosis: Adrenal tumor[ICD9: 239.7] Sapna AU DO [facility] CPT-4: 20785 07/08/2014 ([id number]) OFFICE/OUTPATIENT VISIT NEW Diagnosis: HYPERTENSION[ICD9: 401.9] Diagnosis: GERD[ICD9: 530.81] Sapna LIVE DO [facility] CPT-4: 05403 07/08/2014 Plan of Care Planned Activity Notes Codes Status Date Visit Diagnosis Plan: Local infection of the [...] ICD-10 : L08.9 10/27/2019 Appointment: Lashell Joe [address] [place], [place] [id number] ACUTE ILLNESS 10/27/2019 Patient Education: tramadol- [employer] Coupon [id number] [email or web address]://www.[email or web address] [email or web address].TravelLine/samplemd/resources/getResource/61/[email or web address]-[email or web address]-[email or web address] Completed 10/27/2019 Visit Plan: Update Low Dose [...] I35.1 10/02/2019 Appointment: Sapna Live WPtel: [facility] FOLLOW UP 10/02/2019 Care Plan: Referral Order SNOMED-CT : [id number] Pending 10/02/2019 Visit Diagnosis Plan: Chest pain Discussion: will star t with cxray and rib xray. discussed that could be lung, rib, muscle but will start with cxray and patient may need echo. he verbalized understanding. ICD-9 : 786.50 ICD-10 : R07.9 08/25/2019 Appointment: Lashell Joe [address] [place], [place] [id number] ACUTE ILLNESS 08/25/2019 Visit Diagnosis Plan: Adrenal [...] ct of lungs to be done at [facility]. ICD-9 : V15.82 ICD-10 : Z87.891 08/13/2019 Visit Diagnosis Plan: Thoracic back pain Discussion: c hronic pain. will refer to dr. stallings at [facility] for evaluation and treatment ICD-9 : 724.1 [...] ICD-10 : N28.9 08/13/2019 Appointment: Lashell Joe [facility] [employer] [address] FOLLOW UP 08/13/2019 Visit Diagnosis Plan: Renal insufficiency Discussion: Labs discussed Continue off NSAIDS Hydrate Recheck Chemistry 3mos ICD-9 : 593.9 ICD-10 : N28.9 07/03/2019 Visit Diagnosis Plan: Sigmoid diverticulitis Discussio n: Bactrim/Flagyl Preble diet To ER this weekend if worsening ICD-9 : 562.11 ICD-10 : K57.32 07/03/2019 Visit Diagnosis Plan: Jock itch Discussion: Diflucan a nd topical nystatin ICD-9 : 110.3 ICD-10 : B35.6 07/03/2019 Appointment: Sapna Live WPtel: [phone] [phone] FOLLOW UP 07/03/2019 Patient Education: fluconazole- [employer] C[employer]on [id number] Completed 07/03/2019 Patient Education: nystatin- [employer] C[employer]on [id number] Completed 07/03/2019 Visit Diagnosis Plan: Disorder of [...] ICD-10 : R25.2 06/05/2019 Appointment: Lashell Joe [facility] [employer] [address] NO SHOW - FORGIVEN 06/05/2019 Appointment: Lashell JoeAmarjit [address] [facility] ACUTE [facility]LL[facility] 06/05/2019 Visit Diagnosis Plan: Other pruritus Discussion: bella anglin with patient that if was r/t mite [...] ICD-10 : M25.561 05/21/2019 Appointment: Lashell Joe Juan [address] [place] [address] ACUTE ILLNESS 05/21/2019 Patient Education: hydroxyzine HCl- [employer] Coupon [id number] https://www.piSociety/samplemd/resources/getResource/61/kjvg83j5-h70b-97um-08 Completed 05/21/2019 Appointment: Sapna Live WPtel: [address] [place], [place] [phone] 05/19/19 1645---see note put in chart today (km) CANCELED 05/19/2019 Appointment: Sapna Live WPtel: [address] [place], [place] [phone] US CANCELED 05/05/2019 Appointment: Sapna Live WPtel: [address] [place], [place] [phone] UA 04/21/2019 Visit Diagnosis Plan: Snoring Discussion: [...] ICD-10 : K59.09 02/24/2019 Appointment: Lashell Joe [address] [place] [address] Hospital Follow Up 02/24/2019 Visit Diagnosis Plan: Diverticulitis of large intestine without perforation or abscess with bleeding Discussion: Continue flagyl and cipro. A dvance diet to bland. BRAT diet advised. Avoid nuts, seeds, popcorn, roughage. RTC if abdominal pain worsens or does not improve. ICD-9 : 562.13 ICD-10 : K57.33 02/04/2019 Appointment: Nancy Mendiola [facility] Ph[facility] [address] FOLLOW UP 02/04/2019 Visit Diagnosis Plan: [...] ICD-10 : R10.32 01/29/2019 Appointment: Nancy Mendiola [facility] [employer] [id number] US ACUTE ILLNESS 01/29/2019 Care Plan: CT PELVIS [...] : L30.9 12/19/2018 Appointment: Sapna Live WPtel: [address] [place], [place] [phone] ACUTE ILLNESS 12/19/2018 Visit Diagnosis Plan: Gastro-esophageal reflux disease without esophagitis Discussion: Continue protonix at 40mg daily Hold mobic No NSAIDS Hold all MVs If persists then will need EGD ICD-9 : 530.81 ICD-10 : K21.9 11/11/2018 Appointment: Sapna Live WPtel: [address] [facility] FOLLOW UP 11/11/2018 Visit Diagnosis Plan: Encounter for [facility] adult medical examination without abnormal findings [...] ICD-10 : Z12.2 10/09/2018 Appointment: Lashell Joe [address] [facility] Annual Well Visit 10/09/2018 Patient Education: gabapentin- [employer] Coupon [id number] Completed 10/09/2018 Patient Education: Kegel Exercises Comple catalina 10/09/2018 Patient Education: High Blood Pressure Co mpleted 10/09/2018 Visit Diagnosis Plan: Pain in right knee Discussion: c orticosteroid injection administered as described above. patient tolerated well. instructed to rtc in 3- 4 months if needed for additional injection. ICD-9 : 719.46 ICD-10 : M25.561 02/19/2018 Appointment: Lashell Joe [facility] OFF[facility] SURGERY 02/19/2018 Patient Education: Patient Medication [...] ICD-10 : M25.561 02/12/2018 Appointment: Lashell Joe [address] [place] [address] ACUTE ILLNESS 02/12/2018 Patient Education: Patient Medication Summary Completed 02/12/2018 Care Plan: X-RAY EXAM OF KNEE 1 OR 2 [place] : [address]4 Pending 02/12/2018 Visit Diagnosis Plan: Other chest [...] ICD-10 : I10 12/03/2017 Appointment: Lashell Joe [address] [place] [address] ESTABLISHED PATIENT 12/03/2017 Patient Education: Patient Medication Summary Completed 12/03/2017 Visit Diagnosis Plan: Essential (primary) hypertension Discussion: Increase quinapril to 40mg daily BP check in 1month ICD-9 : 401.9 ICD-10 : I10 09/11/2017 Appointment: Sapna Live WPtel: [address] [place], [place] [phone] [place] FOLLOW UP 09/11/2017 Patient Education: Patient Medication Summary Completed 09/11/2017 Appointment: Sapna Live WPtel: [facility] US RESCHEDULED 08/22/2017 Visit Diagnosis Plan: Left lower quadrant pain Discuss ion: Update colonoscopy ICD-9 : 789.04 ICD-10 : R10.32 08/13/2017 Visit Diagnosis Plan: Essential (primary) hypertension Discussion: Increase quinapril to 20mg daily Follow Up: 1 months ICD-9 : 401.9 ICD-10 : I10 08/13/2017 Visit Diagnosis Plan: Encounter for [facility] adult medical examination without abnormal findings Discussion: Update fasting lab ICD-9 : V70.9 ICD-10 : Z00.00 08/13/2017 Appointment: Sapna Live WPtel: [address] [place] [address] Annual Well Visit 08/13/2017 Patient Education: Patient Medication Summary Completed 08/13/2017 Appointment: Sapna Live WPtel: [address] [place] [address] THROAT SWAB 02/13/2017 Patient Education: Patient Medication Summary Completed 02/13/2017 Appointment: Sapna Live WPtel: [address] [place] [address] BP CHECK 11/17/2016 Patient Education: Patient Medication Summary Completed 11/17/2016 Visit Plan: Due for colonoscopy in 2018 Had shingles shot and flu shot Change quinapril hct to plain quinapril and see if muscles twitches improve Fwup with Dr. Braga Lab discussed Discussed diet/exercise at length Check CT abdomen Recheck 3mos 07/19/2016 Appointment: Sapna Live WPtel: [address] [place], [place] [phone] 07/18 confirmed`sl PHYSICAL 07/19/2016 Patient Education: Patient [...] earliest convenience 06/09/2016 Appointment: Sobia Monreal WPtel: [address] [place] [address] ACUTE ILLNESS 06/09/2016 Patient Education: Patient Medication Summary Completed 06/09/2016 Referral: Demario Braga WPtel: [address] [place] [address] Referral Initiated 11/12/2015 Visit Plan: Continue indwelling catheter until follow-up with Dr. Braga Continue Bactrim and Cipro Pyridium TID for Bladder spasms 11/08/2015 Appointment: Chelsie Teixeira WPtel: [address] [place] [address] ER Follow UP 11/08/2015 Patient Education: Patient Medication Summary Completed 11/08/2015 Referral: Abdiel Tucker WPtel: [address] [place] [address] Referral Initiated 06/21/2015 Visit Plan: Prednisone 20mg daily for 1w kaguyuk See surgery of cyst removal 06/14/2015 Appointment: Sapna Live WPtel: [address] [place] [address] 06/11 vm cn 06/14 vm cn FOLLOW UP 2014 Patient Education: Patient Medication Summary Completed 06/14/2015 Visit Plan: Warm moist compresses to Lef t shoulder lesion and apply topical Mupirocin twice daily Complete Cephalexin x 7 days as directed Resume Culturelle daily 05/18/2015 Appointment: Chelsie Teixeira WPtel: [address] [place] [address] ACUTE ILLNESS 05/18/2015 Patient Education: Patient Medication Summary Completed 05/18/2015 Visit Plan: Check fasting lab Use pain m eds prn with miralax on the day that takes pain meds 02/22/2015 Appointment: Sapna Live WPtel: [address] [place] [address] 02/19 vm cn 02/19 appt confirmed-lb ACUTE ILLNESS 5 Patient Education: Patient Medication Summary Completed 02/22/2015 Visit Plan: Increase neurontin to 300mg q HS Continue flexeril and tramadol Call in 1mo on how higher dose of gabapentin 12/02/2014 Appointment: Sapna Live WPtel: [address] [place], [place] [phone] FOLLOW UP 12/02/2014 Patient Education: Patient Medication Summary Completed 12/02/2014 Referral: Eric Angelo WPtel: [address] [place] [address] [place] Referral Appointment Confirmed 09/15/2014 Visit Plan: Proceed with pain doctor for possible injection vs nerve block Trial of lidoderm patch Cryotherapy to lesions as above 08/18/2014 Appointment: Sapna Live WPtel: [address] [place], [place] [phone] ACUTE ILLNESS 08/18/2014 Patient Education: Patient Medication Summary Completed 08/18/2014 Patient Education: Patient Medication Summary Completed 08/13/2014 Visit Plan: Continue current meds Obtain most recent lab results Check thoracic spine x-rays Needs updated CT scan of adrenal tumor 07/08/2014 Appointment: Sapna Live WPtel: [address] [place], [place] [phone] 07/07 vm NEW PATIENT 07/08/2014 Patient Education: Patient Medication Summary Completed 07/08/2014 Patient Education: Patient Medication Summary Completed 07/08/2014 Referral: Suhail Cardenas WPtel: [id number] [id number] [place] Referral Completed Referral: Toby Bettencourt WPtel: [address] [place] [address] A [id number] [place] Referral Completed Referral: Rosario Monahan WPtel: [phone] [facility] C [place] Referral Appointment Requested [...]
--- OUTSIDE RECORDS SUMMARY | 2020-02-05 07:54 | XMS REPORT | CCD ---
Author Author Jai Live D.O. Organization [facility] Address [address] [place] [address] Phone Care Team Providers Care Care Nurse Rn Name Role Phone Sapna Live D.O., PP Unavailable CCM Unavailable Summary Purpose Interface Exchange Insurance Providers Payer name Policy type / Coverage type Covered green party ID Effective Begin Date Effective End Date GPA Commercial Insurance [id number] 2019 Unknown Family history Mother Diagnosis Age At Onset Cancer Unknown Father Diagnosis Age At Onset Congestive heart failure Unknown Coronary Artery Disease(CAD) Unknown Social History Social History Element Codes Description Effective Dates Tobacco history SNOMED CT: 0635262 Former smoker 10/09/2018 Marital status Unknown 07/08/2014 Number of children Unknown 1 07/08/2014 Employment Unknown Currently employed [employer] 07/08/[address]: 292538189 Never drinks alcohol 2013 Has the patient [...] Instructions doxycycline hyclate 100 mg capsule RxNorm: 0690707 1 Cap lee(s) Oral two times a day 11/03/2019 11/10/2019 Active doxycycline hyclate 100 mg capsule RxNorm: 8627649 1 Cap lee(s) Oral two times a day 11/03/2019 11/02/2019 Inactive tramadol 50 mg tablet RxNorm: 814624 1 Tablet(s) Oral t hree times a day as needed for pain along with two tylenol 10/27/2019 10/27/2019 Inactive cyclobenzaprine 10 mg tablet RxNorm: 085972 1 Tablet(s) Oral th ree times a day 10/27/2019 No Stop Date Active Bactrim DS 800 mg-160 mg tablet RxNorm: 634477 1 Tablet(s) Oral two times a day 10/27/2019 11/03/2019 Inactive tramadol 50 mg tablet RxNorm: 091031 1 Tablet(s) Oral t hree times a day as needed for pain along with two tylenol 10/27/2019 10/26/2019 Inactive Bactrim DS 800 mg-160 mg tablet RxNorm: 982200 1 Tablet(s) Oral two times a day 10/27/2019 10/26/2019 Inactive tramadol 50 mg tablet RxNorm: 286465 1 Tablet(s) Oral t hree times a day as needed for pain along with two tylenol 09/29/2019 10/26/2019 Inactive quinapril 40 mg tablet RxNorm: 243614 1 Tablet(s) Oral QD 09/18/2019 03/15/2020 Active Patient requests 90 days supply tramadol 50 mg tablet RxNorm: 841263 1 Tablet(s) Oral t hree times a day as needed for pain along with two tylenol 08/28/2019 08/28/2019 Inactive tramadol 50 mg tablet RxNorm: 385348 1 Tablet(s) PO TID as needed for pain along with two tylenol 08/25/2019 08/27/2019 Inactive pantoprazole 40 mg tablet,delayed release RxNorm: 141030 1 Tabl et(s) Oral QD 08/13/2019 No Stop Date Active Vitamin D3 1,000 unit capsule RxNorm: 378132 1 Capsule(s) Oral QD 1 10/13/2018 No Stop Date Active tamsulosin 0.4 mg capsule RxNorm: 228930 1 Capsule(s) Oral QPM 07/26 No Stop Date Active Protonix 40 mg tablet,delayed release RxNorm: 248758 TA KE 1 TABLET BY MOUTH TWICE A DAY 08/04/2019 08/12/2019 Inactive Flagyl 500 mg tablet RxNorm: 115294 1 Tablet(s) Oral three time s a day 07/03/2019 07/13/2019 Inactive fluconazole 100 mg tablet RxNorm: 796396 1 Tablet(s) Oral QD 201807/10/2019 Inactive Bactrim DS 800 mg-160 mg tablet RxNorm: 724875 1 Tablet(s) Oral two times a day 07/03/2019 07/13/2019 Inactive nystatin 100,000 unit/gram topical cream RxNorm: 830014 Application Topical two times a day 07/03/2019 08/12/2019 Inactive gabapentin 600 mg tablet RxNorm: 143054 Tablet(s) TAKE 1 TABLET BY MOUTH EVERY NIGHT AT BEDTIME 06/25/2019 08/12/2019 Inactive - First Attempt Ref: [id number] quinapril 40 mg tablet RxNorm: 083190 1 Tablet(s) Oral QD 06/23/2019 09/17/2019 Inactive Patient requests 90 days supply tramadol 50 mg tablet RxNorm: 390317 1 Tablet(s) PO TID as needed for pain along with two tylenol 05/23/2019 08/24/2019 Inactive hydroxyzine HCl 25 mg tablet RxNorm: 480418 1 Tablet(s) PO TID as needed 05/21/2019 08/12/2019 Inactive Elimite 5 % topical cream RxNorm: 842819 1 Application TOP QHS apply head to toe and was off in morning 05/19/2019 07/02/2019 Inactive Protonix 40 mg tablet,delayed release RxNorm: 806394 1 Tablet(s ) PO BID 05/05/2019 08/02/2019 Inactive - First Attempt Ref: [id number] gabapentin 600 mg tablet RxNorm: 100360 Tablet(s) TAKE 1 TABLET BY MOUTH EVERY NIGHT AT BEDTIME 04/25/2019 06/24/2019 Inactive - First Attempt Ref: [id number] tramadol 50 mg tablet RxNorm: 156239 1 Tablet(s) PO TID as needed for pain along with two tylenol 04/21/2019 05/22/2019 Inactive quinapril 40 mg tablet RxNorm: 860905 1 Tablet(s) PO QD 04/01/2019 Inactive Patient requests 90 days supply fenofibrate micronized 134 mg capsule RxNorm: 059333 1 Capsule(s) PO QD Due for updated fasting labs 03/31/2019 08/12/2019 Inactive dicyclomine 10 mg capsule RxNorm: 775074 1 Capsule(s) PO TID as needed 02/24/2019 05/20/2019 Inactive Flagyl 500 mg tablet RxNorm: 638778 1 Tablet(s) PO Q8H 02/24/201908/2019 Inactive ciprofloxacin 500 mg tablet RxNorm: 535969 1 Tablet(s) PO BID 02/2403/09/2019 Inactive Flagyl 500 mg tablet RxNorm: 151834 1 Tablet(s) PO Q6H 01/30/2019 Inactive ciprofloxacin 500 mg tablet RxNorm: 809995 1 Tablet(s) PO BID 01/3001/29/2019 Inactive Flagyl 500 mg tablet RxNorm: 450246 1 Tablet(s) PO Q6H 01/30/201904/2019 Inactive ciprofloxacin 500 mg tablet RxNorm: 380803 1 Tablet(s) PO BID 01/3002/05/2019 Inactive gabapentin 600 mg tablet RxNorm: 822203 TAKE 1 TABLET B Y MOUTH EVERY NIGHT AT BEDTIME 01/27/2019 04/24/2019 Inactive - First Attempt Ref: [id number] tramadol 50 mg tablet RxNorm: 988568 1 Tablet(s) PO TID as needed for pain along with two tylenol 01/08/2019 04/20/2019 Inactive fenofibrate micronized 134 mg capsule RxNorm: 012129 1 Capsule(s) PO QD Due for updated fasting labs 01/02/2019 03/30/2019 Inactive quinapril 40 mg tablet RxNorm: 060058 1 Tablet(s) PO QD 01/01/2019 Inactive Patient requests 90 days supply Protonix 40 mg tablet,delayed release RxNorm: 878309 TA KE 1 TABLET BY MOUTH TWICE A DAY 01/01/2019 03/31/2019 Inactive - First Attempt Ref: [id number] Protonix 40 mg tablet,delayed release RxNorm: 935886 TA KE 1 TABLET BY MOUTH TWICE A DAY 12/25/2018 12/31/2018 Inactive - First Attempt Ref: [id number] gabapentin 600 mg tablet RxNorm: 195625 TAKE 1 TABLET B Y MOUTH EVERY NIGHT AT BEDTIME 12/02/2018 01/26/2019 Inactive - First Attempt Ref: [id number] Protonix 40 mg tablet,delayed release RxNorm: 681835 1 Tablet(s ) PO BID 11/11/2018 12/24/2018 Inactive Protonix 40 mg tablet,delayed release RxNorm: 893307 1 Tablet(s ) PO BID 10/09/2018 11/10/2018 Inactive gabapentin 600 mg tablet RxNorm: 687394 1 Tablet(s) PO QHS 10/09/1912/01/2018 Inactive quinapril 40 mg tablet RxNorm: 186417 1 Tablet(s) PO QD 1 TABLE T(S) PO QD 08/08/2018 08/07/2018 Inactive Patient requests 9 0 days supply quinapril 40 mg tablet RxNorm: 563116 1 Tablet(s) PO QD 08/08/2018 Inactive Patient requests 90 days supply meloxicam 15 mg tablet RxNorm: 738995 1 Tablet(s) PO QD 08/08/2018 Inactive gabapentin 300 mg capsule RxNorm: 407340 1 CAPSULE(S) P O QHS DUE FOR WELLNESS VISIT 08/07/2018 10/08/2018 Inactive due for followup meloxicam 15 mg tablet RxNorm: 855119 Tablet(s) 1 TABLET(S) PO QD 1 10/07/2017 08/07/2018 Inactive fenofibrate micronized 134 mg capsule RxNorm: 960123 1 Capsule(s) PO QD Needs updated fasting labs!!!!!! 07/08/2018 07/07/2018 Inactive fenofibrate micronized 134 mg capsule RxNorm: 473385 1 Capsule( s) PO QD 07/08/2018 01/01/2019 Inactive fenofibrate micronized 134 mg capsule RxNorm: 420098 1 Capsule(s) PO QD Needs updated fasting labs!!!!!! 06/21/2018 07/08/2018 Inactive Medrol (Daniel) 4 mg tablets in a dose pack RxNorm: 624473 Tablet(s) PO As Directed 05/06/2018 05/05/2018 Inactive Medrol (Daniel) 4 mg tablets in a dose pack RxNorm: 430910 Tablet(s) PO As Directed 05/06/2018 08/07/2018 Inactive quinapril 40 mg tablet RxNorm: 150401 1 TABLET(S) PO QD 05/02/2018 Inactive Patient requests 90 days supply fenofibrate micronized 134 mg capsule RxNorm: 390698 1 Capsule(s) PO QD Needs updated fasting labs 04/29/2018 05/28/2018 Inactive Move Free Joint Health 750 mg-100 mg-1.65 mg-108 mg tablet R xNorm: 1 Tablet(s) PO QD 02/12/2018 03/13/2018 Inactive fenofibrate micronized 134 mg capsule RxNorm: 868097 Ca psule(s) 1 CAPSULE(S) PO QD 01/29/2018 06/21/2018 Inactive quinapril 40 mg tablet RxNorm: 105397 1 TABLET(S) PO QD 11/26/2017 Inactive Patient requests 90 days supply fenofibrate micronized 134 mg capsule RxNorm: 520277 1 CAPSULE( S) PO QD 11/06/2017 01/29/2018 Inactive gabapentin 300 mg capsule RxNorm: 673855 1 CAPSULE(S) P O QHS DUE FOR WELLNESS VISIT 10/24/2017 07/20/2018 Inactive due for followup meloxicam 15 mg tablet RxNorm: 873052 1 TABLET(S) PO QD 10/24/2017 Inactive quinapril 40 mg tablet RxNorm: 278624 1 Tablet(s) PO QD 10/24/2017 Inactive fenofibrate micronized 134 mg capsule RxNorm: 690084 1 Capsule( s) PO QD 08/22/2017 11/05/2017 Inactive fenofibrate micronized 134 mg capsule RxNorm: 311824 1 Capsule( s) PO QD 08/22/2017 08/21/2017 Inactive quinapril 20 mg tablet RxNorm: 527635 1 Tablet(s) PO QD 08/13/2017 Inactive gabapentin 300 mg capsule RxNorm: 071541 1 Capsule(s) P O QHS Due for wellness visit 08/06/2017 10/23/2017 Inactive due for followup gabapentin 300 mg capsule RxNorm: 879595 1 Capsule(s) P O QHS Due for wellness visit 08/02/2017 08/05/2017 Inactive due for followup meloxicam 15 mg tablet RxNorm: 755289 1 Tablet(s) PO QD 08/01/2017 Inactive gabapentin 300 mg capsule RxNorm: 664905 1 Capsule(s) P O QHS Due for wellness visit 08/01/2017 08/01/2017 Inactive due for followup gabapentin 300 mg capsule RxNorm: 300083 1 Capsule(s) P O QHS Due for wellness visit 08/01/2017 08/02/2017 Inactive gabapentin 300 mg capsule RxNorm: 698781 1 Capsule(s) PO QHS 201605/12/2017 Inactive quinapril 10 mg tablet RxNorm: 304505 1 Tablet(s) PO QD replace s quinapril hct 02/12/2017 08/12/2017 Inactive meloxicam 15 mg tablet RxNorm: 876124 1 Tablet(s) PO QD 02/05/2017 Inactive quinapril 10 mg tablet RxNorm: 968454 1 Tablet(s) PO QD replace s quinapril hct 11/16/2016 02/12/2017 Inactive gabapentin 300 mg capsule RxNorm: 481412 1 Capsule(s) PO QHS 201602/12/2017 Inactive quinapril 10 mg tablet RxNorm: 095822 1 Tablet(s) PO QD replace s quinapril hct 10/16/2016 11/15/2016 Inactive gabapentin 300 mg capsule RxNorm: 695287 1 Capsule(s) PO QHS 201511/15/2016 Inactive quinapril 10 mg tablet RxNorm: 427434 1 Tablet(s) PO QD replace s quinapril hct 07/19/2016 10/15/2016 Inactive meloxicam 15 mg tablet RxNorm: 169392 1 Tablet(s) PO QD 07/10/2016 Inactive meloxicam 15 mg tablet RxNorm: 093563 TAKE ONE TABLET BY MOUTH LUKE Y 07/10/2016 07/09/2016 Inactive meloxicam 15 mg tablet RxNorm: 476907 1 Tablet(s) PO QD 07/06/2016 Inactive meloxicam 15 mg tablet RxNorm: 662850 1 Tablet(s) PO QD 06/09/2016 Inactive Multivitamin & Mineral Formula tablet RxNorm: 1 Tablet(s) PO Q D 06/02/2016 07/01/2016 Inactive tamsulosin 0.4 mg capsule RxNorm: 025534 1 Capsule(s) PO QHS 201507/01/2016 Inactive Move Free Joint Health 750 mg-100 mg-1.65 mg-108 mg tablet R xNorm: 1 Tablet(s) PO QD 06/02/2016 07/01/2016 Inactive gabapentin 300 mg capsule RxNorm: 108682 1 Capsule(s) PO QHS 201508/27/2016 Inactive gabapentin 300 mg capsule RxNorm: 137888 Capsule(s) ALFONZO E ONE CAPSULE BY MOUTH AT BEDTIME 02/28/2016 05/27/2016 Inactive quinapril 10 mg-hydrochlorothiazide 12.5 mg tablet RxNorm: 3 56229 Tablet(s) TAKE ONE TABLET BY MOUTH EVERY MORNING 01/14/2016 07/18/2016 Inactive gabapentin 300 mg capsule RxNorm: 022832 TAKE ONE CAPSULE BY [facility] AT BEDTIME 12/28/2015 02/27/2016 Inactive Urecholine 25 mg tablet RxNorm: 989924 1 Tablet(s) PO TID 11/09/2015 07/18/2016 Inactive phenazopyridine 100 mg tablet RxNorm: 1734219 1 Tablet(s ) PO TID as needed for bladder spasms. 11/08/2015 11/08/2015 Inactive quinapril 10 mg-hydrochlorothiazide 12.5 mg tablet RxNorm: 3 83382 TAKE ONE TABLET BY MOUTH EVERY MORNING 10/15/2015 01/13/2016 Inactive gabapentin 300 mg capsule RxNorm: 647049 1 Tablet(s) PO QD TAKE ONE CAPSULE BY MOUTH EVERY NIGHT AT BEDTIME 09/23/2015 12/21/2015 Inactive quinapril 10 mg-hydrochlorothiazide 12.5 mg tablet RxNorm: 3 03701 Tablet(s) TAKE ONE TABLET BY MOUTH EVERY MORNING 07/14/2015 10/14/2015 Inactive gabapentin 300 mg capsule RxNorm: 342649 1 Tablet(s) PO QD TAKE ONE CAPSULE BY MOUTH EVERY NIGHT AT BEDTIME 06/25/2015 09/23/2015 Inactive prednisone 20 mg tablet RxNorm: 391821 1 Tablet(s) PO QD 06/14/2015 0 06/20/2015 Inactive cephalexin 500 mg capsule RxNorm: 471750 1 Capsule(s) PO BID 201405/27/2015 Inactive mupirocin 2 % topical ointment RxNorm: 726458 TOP BID 05/18/2015 0 06/13/2015 Inactive quinapril 10 mg-hydrochlorothiazide 12.5 mg tablet RxNorm: 3 56186 Tablet(s) TAKE ONE TABLET BY MOUTH EVERY MORNING 04/06/2015 07/14/2015 Inactive gabapentin 300 mg capsule RxNorm: 160000 1 Capsule(s) PO QHS 201404/01/2015 Inactive [SAVINGS FOR NON-COVERED LILIANA GS -- BIN:103937, PCN: ASPROD1, Group: XXXXX, ID# [id number], Questions: . THIS IS NOT INSURANCE.] gabapentin 300 mg capsule RxNorm: 557533 1 Capsule(s) PO QHS 201406/25/2015 Inactive [SAVINGS FOR NON-COVERED LILIANA GS -- BIN:246818, PCN: ASPROD1, Group: XXXXX, ID# [id number], Questions: . THIS IS NOT INSURANCE.] quinapril 10 mg-hydrochlorothiazide 12.5 mg tablet RxNorm: 3 05181 TAKE ONE TABLET BY MOUTH EVERY MORNING 12/11/2014 04/05/2015 Inactive gabapentin 300 mg capsule RxNorm: 175170 1 Capsule(s) PO QHS 201404/02/2015 Inactive [SAVINGS FOR NON-COVERED LILIANA GS -- BIN:086979, PCN: ASPROD1, Group: XXXXX, ID# [id number], Questions: . THIS IS NOT INSURANCE.] cyclobenzaprine 10 mg tablet RxNorm: 321915 1 Tablet(s) PO TID as needed for muscle spasm for muscle spasm 12/02/2014 02/21/2015 Inactive [S AVINGS FOR NON- COVERED DRUGS -- BIN:661567, PCN: ASPROD1, Group: XXXXX, ID# [id number], Questions: . THIS IS NOT INSURANCE.] gabapentin 100 mg capsule RxNorm: 226469 1 Capsule(s) PO QHS 201412/01/2014 Inactive [SAVINGS FOR NON-COVERED LILIANA GS -- BIN:376410, PCN: ASPROD1, Group: XXXXX, ID# [id number], Questions: . THIS IS NOT INSURANCE.] ibuprofen 800 mg tablet RxNorm: 085649 1 Tablet(s) PO T ID as needed low back pain 11/11/2014 11/23/2014 Inactive [SAVINGS FOR NON -COVERED DRUGS -- BIN:804104, PCN: ASPROD1, Group: XXXXX, ID# [id number], Questions: . THIS IS NOT INSURANCE.] ibuprofen 800 mg tablet RxNorm: 549009 1 Tablet(s) PO T ID as needed low back pain 11/09/2014 11/10/2014 Inactive [SAVINGS FOR NON -COVERED DRUGS -- BIN:666655, PCN: ASPROD1, Group: XXXXX, ID# [id number], Questions: . THIS IS NOT INSURANCE.] Zorvolex 35 mg capsule RxNorm: 3758298 1 Tablet(s) PO TID 08/27/2014 10/01/2014 Inactive [SAVINGS FOR UNINSURED PATIENTS -- BIN:0 33414, PCN: ASPROD1, Group: AME08, ID# [id number], Process claim through [employer], for questions: . THIS IS NOT INSURANCE.] quinapril 10 mg-hydrochlorothiazide 12.5 mg tablet RxNorm: 3 03881 1 Tablet(s) PO QAM 08/27/2014 11/24/2014 Inactive Lidoderm 5 % (700 mg/patch) adhesive patch RxNorm: 3330643 Application TOP for 12hours then off for pain 08/18/2014 02/21/2015 Inactive [SAVIN GS FOR UNINSURED PATIENTS -- BIN:690803, PCN: ASPROD1, Group: AME08, ID# [id number], Process claim through [employer], for questions: . THIS IS NOT INSURANCE.] Zorvolex 35 mg capsule RxNorm: 7289765 1 Tablet(s) PO TID 08/13/2014 08/12/2014 Inactive Zorvolex 35 mg capsule RxNorm: 4601283 1 Tablet(s) PO TID 08/13/2014 08/24/2014 Inactive [SAVINGS FOR UNINSURED PATIENTS -- BIN:0 03645, PCN: ASPROD1, Group: AME08, ID# [id number], Process claim through [employer], for questions: . THIS IS NOT INSURANCE.] Aspirin Child 81 mg chewable tablet RxNorm: 640158 1 Tablet(s) PO QD No Start Date Active ibuprofen 800 mg tablet RxNorm: 569757 1 Tablet(s) PO T ID as needed low back pain No Start Date 11/08/2014 Inactive cyclobenzaprine 10 mg tablet RxNorm: 342888 1 Tablet(s) PO TID No S tart Date 08/12/2017 Inactive garlic 1,000 mg capsule RxNorm: 894263 1 Capsule(s) PO QD No Start Date 04/22/2019 Inactive tramadol 50 mg tablet RxNorm: 593368 1 Tablet(s) PO Q4-6H as ne eded for pain No Start Date 02/21/2015 Inactive tramadol 50 mg tablet RxNorm: 255387 1 Tablet(s) PO TID as needed for pain along with two tylenol No Start Date 01/07/2019 Inactive krill oil oral RxNorm: 84521 oral No Start Date 11/11/2018 Inacti ve Vitamin D3 2,000 unit tablet RxNorm: 995535 1 Tablet(s) PO QD No St art Date 08/12/2019 Inactive gabapentin 100 mg tablet RxNorm: 801288 1 Tablet(s) PO QD No Start Date 11/10/2014 Inactive Zofran 4 mg tablet RxNorm: 746201 1 Tablet(s) PO Q6H as needed No S tart Date 08/12/2019 Inactive Elimite 5 % topical cream RxNorm: 131423 1 Application TOP QHS apply head to toe and was off in morning No Start Date 05/18/2019 Inactive gabapentin 100 mg capsule RxNorm: 705342 1 Capsule(s) PO QHS No Sta rt Date 11/10/2014 Inactive aspirin 325 mg tablet RxNorm: 607097 2 Tablet(s) PO QD No Start Date 08/17/2014 Inactive Fish Oil 1,000 mg capsule RxNorm: 1 Capsule(s) PO QD No Start Date 10/08/2018 Inactive quinapril 10 mg-hydrochlorothiazide 12.5 mg tablet RxNorm: 3 61970 1 Tablet(s) PO QAM No Start Date 08/26/2014 Inactive quinapril 40 mg tablet RxNorm: 224387 1 Tablet(s) PO QD No Start Da te 10/23/2017 Inactive Medrol (Daniel) 4 mg tablets in a dose pack RxNorm: 232441 Tablet(s) PO As Directed No Start Date 05/05/2018 Inactive Urecholine 25 mg tablet RxNorm: 417574 1 Tablet(s) PO TID No Start Date 11/08/2015 Inactive cyclobenzaprine 10 mg tablet RxNorm: 704839 1/2-1 Table t(s) PO TID as needed for muscle spasm No Start Date 12/01/2014 Inactive tamsulosin 0.4 mg capsule RxNorm: 215321 2 Capsule(s) PO QPM No Sta rt Date 08/12/2019 Inactive hydrocodone 5 mg-acetaminophen 325 mg tablet RxNorm: 531469 1 -2 Tablet(s) PO Q6H as needed No Start Date 05/20/2019 Inactive loratadine 10 mg tablet RxNorm: 551613 1 Tablet(s) PO QD No Start D ate 07/07/2014 Inactive Medication Administered No Medication Administered data Immunizations Vaccine Codes Date Status Influenza CVX: 141 07/21/2019 Results Observation Observation Code Item Item Code Result Date S ervice Location CULTURE, AEROBIC BACTERIA 07094 CULTURE, AEROBIC BACTERIA SEE NOTE 10/30/2019 [facility] [id number] [place] [address] CULTURE, URINE, ROUTINE 395 CULTURE SEE NOTE 1 10/15/[address] [address] CULTURE, URINE, ROUTINE 395 CULTURE, URINE, ROUTINE SEE NOTE [facility] [address] [address] CBC (H/H, RBC, INDICES, WBC, PLT) 94084 WHITE BLOOD CELL COU NT 7.9 Thousand/uL 08/14/2019 [facility] [address] [address] CBC (H/H, RBC, INDICES, WBC, PLT) 42856 RED BLOOD CELL COUNT 4.93 Million/uL 08/14/[facility] [address] [address] CBC (H/H, RBC, INDICES, WBC, PLT) 14868 HEMOGLOBIN 15 .4 g/dL 08/14/2019 [facility] [address] [address] CBC (H/H, RBC, INDICES, WBC, PLT) 21941 HEMATOCRIT 45 .0 % 08/14/[facility] [address] [address] CBC (H/H, RBC, INDICES, WBC, PLT) 06508 MCV 91 .3 fL 08/14/2019 [facility] [address] [address] CBC (H/H, RBC, INDICES, WBC, PLT) 39883 MCH 31 .2 pg 08/14/2019 [facility] [address] CBC (H/H, RBC, INDICES, WBC, PLT) 58468 MCHC 34 .2 g/dL 08/14/2019 [facility] [address] CBC (H/H, RBC, INDICES, WBC, PLT) 41688 RDW 12 .7 % 08/14/2019 [facility] [address] CBC (H/H, RBC, INDICES, WBC, PLT) 98759 PLATELET COUNT 214 Thousand/uL 08/14/2019 [facility] [address] CBC (H/H, RBC, INDICES, WBC, PLT) 28049 MPV 11 .5 fL 08/14/[address] [facility] [address] COMPREHENSIVE METABOLIC PANEL 61378 Glucose 113 mg /dL 08/14/[address] [facility] [address] COMPREHENSIVE METABOLIC PANEL 92706 UREA NITROGEN (BUN) 16 mg/dL 08/14/2019 [facility] [address] COMPREHENSIVE METABOLIC PANEL 55478 CREATININE 0.86 m g/dL 08/14/2019 [facility] [address] COMPREHENSIVE METABOLIC PANEL 07197 eGFR NON-AFR. ECUADOREAN 92 mL/min/1.73m2 08/14/2019 [facility] [address] COMPREHENSIVE METABOLIC PANEL 47673 eGFR 106 mL/min/1.73m2 08/14/2019 [facility] [address] COMPREHENSIVE METABOLIC PANEL 32742 BUN/CREATININE RATIO NOT APPLICABLE (calc) 08/14/2019 [facility] [address] COMPREHENSIVE METABOLIC PANEL 36672 SODIUM 141 mm ol/L 08/14/2019 [facility] [address] COMPREHENSIVE METABOLIC PANEL 15398 POTASSIUM 4.1 mm ol/L 08/14/[address] [address] COMPREHENSIVE METABOLIC PANEL 65871 CHLORIDE 102 mm ol/L 08/14/2019 [facility] [address] COMPREHENSIVE METABOLIC PANEL 73134 CARBON DIOXIDE 28 mmol/L 08/14/2019 [facility] [address] COMPREHENSIVE METABOLIC PANEL 11917 CALCIUM 9.7 mg /dL 08/14/2019 [facility] [address] COMPREHENSIVE METABOLIC PANEL 79743 PROTEIN, TOTAL 6. 7 g/dL 08/14/2019 [facility] [address] COMPREHENSIVE METABOLIC PANEL 53296 ALBUMIN 4.3 g/ dL 08/14/2019 [facility] [address] COMPREHENSIVE METABOLIC PANEL 69956 GLOBULIN 2.4 g/ dL(calc) 08/14/[address] [address] COMPREHENSIVE METABOLIC PANEL 52344 ALBUMIN/GLOBULIN RATIO 1.8 (calc) 08/14/2019 [facility] [address] COMPREHENSIVE METABOLIC PANEL 67533 BILIRUBIN, TOTAL 1.0 mg/dL 08/14/2019 [facility] [address] COMPREHENSIVE METABOLIC PANEL 60137 ALKALINE PHOSPHATASE 56 U/L 08/14/2019 [facility] [address] COMPREHENSIVE METABOLIC PANEL 16948 AST 18 U/L 08/14/2019 [facility] [address] COMPREHENSIVE METABOLIC PANEL 57176 ALT 28 U/L 08/14/2019 [facility] [address] MAGNESIUM 77139 MAGNESIUM 2.0 mg/dL 06/06/2019 [facility] [address] COMPREHENSIVE METABOLIC PANEL 75870 Glucose 106 mg /dL 06/06/2019 [facility] [address] COMPREHENSIVE METABOLIC PANEL 23790 UREA NITROGEN (BUN) 22 mg/dL 06/06/2019 [facility] [address] [address] COMPREHENSIVE METABOLIC PANEL 50771 CREATININE 1.29 m g/dL 06/06/2019 [facility] [address] [address] COMPREHENSIVE METABOLIC PANEL 44265 eGFR NON-AFR. ECUADOREAN 58 mL/min/1.73m2 06/06/2019 [facility] [address] [address] COMPREHENSIVE METABOLIC PANEL 72253 eGFR 67 mL/min/1.73m2 06/06/2019 [facility] [address] [address] COMPREHENSIVE METABOLIC PANEL 42391 BUN/CREATININE RATIO 17 (calc) 06/06/2019 [facility] [address] [address] COMPREHENSIVE METABOLIC PANEL 82924 SODIUM 138 mm ol/L 06/06/2019 [facility] [address] [address] COMPREHENSIVE METABOLIC PANEL 07616 POTASSIUM 4.2 mm ol/L 06/06/2019 [facility] [address] [address] COMPREHENSIVE METABOLIC PANEL 39657 CHLORIDE 101 mm ol/L 06/06/2019 [facility] [address] [address] COMPREHENSIVE METABOLIC PANEL 19505 CARBON DIOXIDE 29 mmol/L 06/06/2019 [facility] [address] [address] COMPREHENSIVE METABOLIC PANEL 17249 CALCIUM 9.6 mg /dL 06/06/2019 [facility] [address] [address] COMPREHENSIVE METABOLIC PANEL 21450 PROTEIN, TOTAL 6. 9 g/dL 06/06/2019 [facility] [address] [address] COMPREHENSIVE METABOLIC PANEL 13205 ALBUMIN 4.4 g/ dL 06/06/2019 [facility] [address] [address] COMPREHENSIVE METABOLIC PANEL 65402 GLOBULIN 2.5 g/ dL(calc) 06/06/2019 [facility] [address] [address] COMPREHENSIVE METABOLIC PANEL 05012 ALBUMIN/GLOBULIN RATIO 1.8 (calc) 06/06/2019 [facility] [address] [address] COMPREHENSIVE METABOLIC PANEL 56644 BILIRUBIN, TOTAL 0.7 mg/dL 06/06/2019 [facility] [facility] [address] [address] COMPREHENSIVE METABOLIC PANEL 25669 ALKALINE PHOSPHATASE 45 U/L 06/06/2019 [facility] [address] [address] COMPREHENSIVE METABOLIC PANEL 34711 AST 21 U/L 06/06/2019 [facility] [address] COMPREHENSIVE METABOLIC PANEL 68577 ALT 34 U/L 06/06/2019 [facility] [address] CULTURE, URINE, ROUTINE 395 CULTURE, URINE, ROUTINE SEE NOTE 04/23/2019 [facility] [address] [address] CULTURE, URINE, ROUTINE 395 CULTURE SEE NOTE 0 04/23/2019 [facility] [address] [address] EXTRA 1014 EXTRA TUBE RECEIVED 04/22 [facility] [address] [address] EXTRA 1014 SPECIMEN TYPE RECEIVED: LAV 0 04/22/2019 [facility] [address] [address] COMPREHENSIVE METABOLIC PANEL 79491 Glucose 94 mg/ dL 04/22/2019 [facility] [address] [address] COMPREHENSIVE METABOLIC PANEL 54623 UREA NITROGEN (BUN) 20 mg/dL 04/22/2019 [facility] [address] [address] COMPREHENSIVE METABOLIC PANEL 27697 CREATININE 1.30 m g/dL 04/22/2019 [facility] [address] [address] COMPREHENSIVE METABOLIC PANEL 66618 eGFR NON-AFR. ECUADOREAN 58 mL/min/1.73m2 04/22/2019 [facility] [address] [address] COMPREHENSIVE METABOLIC PANEL 57183 eGFR 67 mL/min/1.73m2 04/22/2019 [facility] [address] COMPREHENSIVE METABOLIC PANEL 34348 BUN/CREATININE RATIO 15 (calc) 04/22/2019 [facility] [address] COMPREHENSIVE METABOLIC PANEL 18134 SODIUM 139 mm ol/L 04/22/2019 [facility] [address] COMPREHENSIVE METABOLIC PANEL 75097 POTASSIUM 4.2 mm ol/L 04/22/2019 [facility] [address] COMPREHENSIVE METABOLIC PANEL 93184 CHLORIDE 104 mm ol/L 04/22/2019 [facility] [address] COMPREHENSIVE METABOLIC PANEL 32177 CARBON DIOXIDE 27 mmol/L 04/22/2019 [facility] [address] COMPREHENSIVE METABOLIC PANEL 26564 CALCIUM 9.9 mg /dL 04/22/2019 [facility] [address] COMPREHENSIVE METABOLIC PANEL 82247 PROTEIN, TOTAL 7. 1 g/dL 04/22/2019 [facility] [address] COMPREHENSIVE METABOLIC PANEL 30131 ALBUMIN 4.6 g/ dL 04/22/2019 [facility] [address] COMPREHENSIVE METABOLIC PANEL 41177 GLOBULIN 2.5 g/ dL(calc) 04/22/2019 [facility] [address] COMPREHENSIVE METABOLIC PANEL 17491 ALBUMIN/GLOBULIN RATIO 1.8 (calc) 04/22/2019 [facility] [address] COMPREHENSIVE METABOLIC PANEL 00385 BILIRUBIN, TOTAL 0.4 mg/dL 04/22/2019 [facility] [address] COMPREHENSIVE METABOLIC PANEL 48942 ALKALINE PHOSPHATASE 53 U/L 04/22/2019 [facility] [address] COMPREHENSIVE METABOLIC PANEL 12444 AST 21 U/L 04/22/2019 [facility] [address] COMPREHENSIVE METABOLIC PANEL 92759 ALT 34 U/L 04/22/2019 [facility] [address] [place] [address] CULTURE, URINE, ROUTINE 395 CULTURE, URINE, ROUTINE SEE NOTE 01/31/2019 Zay Becerra [address] [place] [address] Procedures Procedure Codes Date CULTURE, AEROBIC BACTERIA CPT-4: 38100 10/27/2019 URINALYSIS NONAUTO W/O SCOPE CPT-4: 80048 10/02/2019 URINE CULTURE/ COLONY COUNT CPT-4: 32136 10/02/2019 ROUTINE VENIPUNCTURE CPT-4: 25190 08/13/2019 URINALYSIS NONAUTO W/O SCOPE CPT-4: 58962 08/13/2019 CULTURE, URINE, ROUTINE CPT-4: 395 08/13/2019 COMPREHENSIVE METABOLIC PANEL CPT-4: 43497 08/13/2019 CBC (H/H, RBC, INDICES, WBC, PLT) CPT-4: 77153 2018 COMPREHENSIVE METABOLIC PANEL CPT-4: 43515 06/05/2019 MAGNESIUM CPT-4: 72908 06/05/2019 DEXAMETHASONE SODIUM PHOS CPT-4: J1100 05/21/2019 THER/PROPH/DIAG INJ SC/IM CPT-4: 76081 05/21/2019 TRIAMCINOLONE ACET INJ NOS CPT-4: J3301 05/21/2019 ROUTINE VENIPUNCTURE CPT-4: 08422 04/21/2019 COMPREHENSIVE METABOLIC PANEL CPT-4: 51483 04/21/2019 EXTRA CPT-4: 1014 04/21/2019 CULTURE, URINE, ROUTINE CPT-4: 395 04/21/2019 URINALYSIS NONAUTO W/O SCOPE CPT-4: 33311 04/21/2019 URINALYSIS NONAUTO W/O SCOPE CPT-4: 44085 01/29/2019 CULTURE, URINE, ROUTINE CPT-4: 395 01/29/2019 DRAIN/INJECT JOINT/BURSA CPT-4: 41775 02/19/2018 TRIAMCINOLONE ACET INJ NOS CPT-4: J3301 02/19/2018 DEXAMETHASONE SODIUM PHOS CPT-4: J1100 02/19/2018 THER/PROPH/DIAG INJ SC/IM CPT-4: 57834 02/12/2018 TRIAMCINOLONE ACET INJ NOS CPT-4: J3301 02/12/2018 DEXAMETHASONE SODIUM PHOS CPT-4: J1100 02/12/2018 CEFTRIAXONE SODIUM INJECTION CPT-4: J0696 12/03/2017 THER/PROPH/DIAG INJ SC/IM CPT-4: 24026 12/03/2017 THER/PROPH/DIAG INJ SC/IM CPT-4: 64552 12/03/2017 METHYLPREDNISOLONE INJECTION CPT-4: J2930 12/03/2017 URINALYSIS NONAUTO W/O SCOPE CPT-4: 08075 08/13/2017 STREP A ASSAY W/OPTIC CPT-4: 74573 02/13/2017 DESTRUCT PREMALG LESION (Cryosurgery) CPT-4: 13638 Vital Signs Date Vital 10/27/2019 Blood Pressure [...] 1: 128/78 Code: 8480-6 BMI: 36.0 Code: 00925-0 Heart Rate 1: 68 bpm Height: 5'7" [...] 1: 138/86 Code: 8480-6 BMI: 35.6 Code: 82830-5 Heart Rate 1: 68 bpm Height: 5'7" SpO2: 95% Temperature: 36.6 (C) / 97.8 (F) Weight: 227 lbs 12/03/2017 Blood Pressure 1: 134/84 Code: 8480-6 BMI: 34.3 Code: 13458-6 Heart Rate 1: 68 bpm Height: 5'7" Respiratory Rate: 20 bpm SpO2: 96% Tempera ture: 35.9 (C) / 96.6 (F) Weight: 219 lbs 09/11/2017 Blood Pressure 1: 140/86 Code: 8480-6 BMI: 34.9 Code: 52533-9 Heart Rate 1: 84 bpm Height: 5'7" Respiratory Rate: 20 bpm SpO2: 95% Tempera ture: 36.7 (C) / 98.1 (F) Weight: 223 lbs 08/13/2017 Blood Pressure 1: 142/94 Code: 8480-6 BMI: 34.5 Code: 98032-2 Heart Rate 1: 76 bpm Height: 5'7" Respiratory Rate: 20 bpm SpO2: 96% Tempera ture: 37.1 (C) / 98.8 (F) Weight: 220 lbs 11/17/2016 Blood Pressure 1: 118/78 Code: 8480-6 art Rate 1: 64 bpm 07/19/2016 Blood Pressure 1: 112/58 Code: 8480-6 BMI: 31.6 Code: 39454-9 Heart Rate 1: 88 bpm Height: 5'7" Respiratory Rate: 22 bpm SpO2: 98% Tempera ture: 36.3 (C) / 97.4 (F) Weight: 202 lbs 06/09/2016 Blood Pressure 1: 138/84 Code: 8480-6 BMI: 32.1 Code: 44716-0 Heart Rate 1: 58 bpm Height: 5'7" Respiratory Rate: 20 bpm SpO2: 97% Tempera ture: 36.6 (C) / 97.8 (F) Weight: 205 lbs 11/08/2015 Blood Pressure 1: 142/80 Code: 8480-6 BMI: 32.4 Code: 21525-7 Heart Rate 1: 76 bpm Height: 5'7" Respiratory Rate: 20 bpm Temperature: 36 .6 (C) / 97.9 (F) Weight: 207 lbs 06/14/2015 Blood Pressure 1: 126/80 Code: 8480-6 Heart Rate 1: 84 bpm Respiratory Rate: 20 bpm Temperature: 36.8 (C) / 98.2 (F) Weight: 206 lbs 05/18/2015 Blood Pressure 1: 124/80 Code: 8480-6 BMI: 32.3 Code: 73072-1 Heart Rate 1: 68 bpm Height: 5'7" Respiratory Rate: 20 bpm Temperature: 36 .4 (C) / 97.6 (F) Weight: 206 lbs 02/22/2015 Blood Pressure 1: 126/78 Code: 8480-6 BMI: 32.1 Code: 28353-8 Heart Rate 1: 76 bpm Height: 5'7" Respiratory Rate: 20 bpm Temperature: 36 .6 (C) / 97.9 (F) Weight: 205 lbs 12/02/2014 Blood Pressure 1: 124/80 Code: 8480-6 BMI: 32.7 Code: 30158-2 Heart Rate 1: 70 bpm Height: 5'7" Respiratory Rate: 18 bpm Temperature: 36 .6 (C) / 97.9 (F) Weight: 209 lbs 08/18/2014 Blood Pressure 1: 132/94 Code: 8480-6 BMI: 34.5 Code: 20628-0 Heart Rate 1: 84 bpm Height: 5'6" Respiratory Rate: 20 bpm Temperature: 36 .6 (C) / 97.9 (F) Weight: 217 lbs 07/08/2014 Blood Pressure 1: 142/88 Code: 8480-6 BMI: 34.3 Code: 09416-7 Heart Rate 1: 72 bpm Height: 5'6" [...] Visit Encounters Encounter Performer Location Codes Date ([id number]) OFFICE/OUTPATIENT VISIT EST Diagnosis: Disorder of the skin and subcutaneous tissue, unspecified[ICD10: L98.9] Diagnosis: Infected sebaceous cyst[ICD10: L72.3] Diagnosis: Local infection of the skin and subcutaneous tissue, unspecified[ICD10: L08.9] Lashell [employer] CPT-4 : 96418 10/27/2019 ([id number]) OFFICE/OUTPATIENT VISIT EST Diagnosis: Suprapubic abdominal pain[ICD10: R10.2] Diagnosis: Aortic regurgitation[ICD10: I35.1] Sapna Johnston [employer] CPT-4: 14974 10/02/2019 ([id number]) OFFICE/OUTPATIENT VISIT EST Diagnosis: Chest pain[ICD10: R07.9] Lashell GOODSON [employer] CPT-4: 79089 08/25/2019 ([id number]) OFFICE/OUTPATIENT VISIT EST Diagnosis: Thoracic back pain[ICD10: M54.6] Diagnosis: Disorder of kidney and ureter, unspecified[ICD10: N28.9] Diagnosis: Personal history of nicotine dependence[ICD10: Z87.891] 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 PAULYND [employer]IN [employer] CPT-4: 63028 07/03/2019 ([id number]) OFFICE/OUTPATIENT VISIT EST Diagnosis: Cramp and spasm[ICD10: R25.2] Diagnosis: Disorder of kidney and ureter, unspecified[ICD10: N28.9] Lashell BRUNSONLINE JefryAmarjit CALOS [employer] CPT-4: 75481 06/05/2019 ([id number]) OFFICE/OUTPATIENT VISIT EST Diagnosis: Other pruritus[ICD10: L29.8] Diagnosis: Pain in right knee[ICD10: M25.561] Lashell BRUNSONSENG GAUTAM S. CALOS [employer] [facility] CPT-4: 40457 05/21/2019 ([id number]) NURSE/OUTPATIENT VISIT EST Diagnosis: Edema, unspecified[ICD10: R60.9] Sapna Calos SAPNA S. [facility] [employer] CPT-4: 82978 04/21/2019 ([id number]) OFFICE/OUTPATIENT VISIT EST Diagnosis: Diverticulitis of large intestine without perforation or abscess without bleeding[ICD10: K57.32] Diagnosis: Snoring[ICD10: R06.83] Diagnosis: Other constipation[ICD10: K59.09] Lashell BRUNSONNORA Chandler S. HITESHER [employer] [facility] CPT-4: 18786 02/24/2019 ([id number]) OFFICE/OUTPATIENT VISIT EST Diagnosis: Diverticulitis of large intestine without perforation or abscess with bleeding[ICD10: K57.33] Nancy Mendiola SAPNA Jefry. PAULYNDER [employer] CPT-4: 40016 02/04/2019 ([id number]) OFFICE/OUTPATIENT VISIT EST Diagnosis: Left lower quadrant pain[ICD10: R10.32] Nancy LIVE [employer] CPT-4: 86468 01/29/2019 OFFICE/OUTPATIENT VISIT EST Diagnosis: Dermatitis, unspecified[ICD10: L30.9] Diagnosis: Gastro-esophageal reflux disease without esophagitis[ICD10: K21.9] Diagnosis: Palpitations[ICD10: R00.2] Sapan [facility] [employer] CPT-4: 33851 12/19/2018 ([id number]) OFFICE/OUTPATIENT VISIT EST Diagnosis: Gastro-esophageal reflux disease without esophagitis[ICD10: K21.9] Diagnosis: Dysphagia, pharyngoesophageal phase[ICD10: R13.14] Sapna [employer] [facility] CPT-4: 99077 11/11/2018 ([id number]) PREV VISIT EST AGE 40-64 Diagnosis: Encounter [...] and disorders of digestive system[ICD10: K91.89] Lashell BRUNSONLINE Vickie [employer] CPT-4: 99 396 10/09/2018 ([id number]) OFFICE/OUTPATIENT VISIT EST Diagnosis: Pain in right knee[ICD10: M25.561] Diagnosis: Pain in right hip[ICD10: M25.551] Lashell BRUNSONNORA Chandler Vickie [employer] CPT-4: 14106 02/12/2018 OFFICE/OUTPATIENT VISIT EST Diagnosis: Essential (primary) hypertension[ICD10: I10] Diagnosis: Other chest pain[ICD10: R07.89] Lashell LIVE DO [facility] CPT-4: 43576 12/03/2017 ([id number]) OFFICE/OUTPATIENT VISIT EST Diagnosis: Essential (primary) hypertension[ICD10: I10] Sapna LIVE DO [facility] CPT-4: 60297 09/11/2017 ([id number]) PREV VISIT EST AGE 40-64 Diagnosis: Encounter for general adult medical examination without abnormal findings[ICD10: Z00.00] Diagnosis: Essential (primary) hypertension[ICD10: I10] Diagnosis: Left lower quadrant pain[ICD10: R10.32] Diagnosis: Left upper quadrant pain[ICD10: R10.12] Diagnosis: Other intervertebral disc degeneration, 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] Sapna LIVE DO [facility] CPT-4: 73605 08/13/2017 ([id number]) OFFICE/OUTPATIENT VISIT EST Diagnosis: Acute pharyngitis, unspecified[ICD10: J02.9] Sapna LIVE DO [facility] CPT-4: 30035 02/13/2017 ([id number]) PREV VISIT EST AGE 40-64 Diagnosis: Encounter for general adult medical examination without abnormal findings[ICD10: Z00.00] Diagnosis: Essential (primary) hypertension[ICD10: I10] 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] Sapna LIVE DO [facility] CPT-4: 14317 07/19/2016 OFFICE/OUTPATIENT VISIT EST Diagnosis: Pain in thoracic spine[ICD10: M54.6] Diagnosis: Disorder of the skin and subcutaneous tissue, unspecified[ICD10: L98.9] Sobia Monreal SAPNA LIVE DO [facility] CPT-4: 91617 06/09/2016 OFFICE/OUTPATIENT VISIT EST Diagnosis: Retention of urine, unspecified[ICD10: R33.9] Diagnosis: Urinary tract infection, site not specified[ICD10: N39.0] Chelsie Teixeira SAPNA LIVE DO [facility] CPT-4: 00333 11/08/2015 ([id number]) OFFICE/OUTPATIENT VISIT EST Diagnosis: DERMATITIS NOS[ICD9: 692.9] Diagnosis: SEBACEOUS CYST[ICD9: 706.2] Sapna BOSCH [facility] CPT-4: 20375 06/14/2015 OFFICE/OUTPATIENT VISIT EST Diagnosis: LOCAL SKIN INFECTION[ICD9: 686.9] Diagnosis: FOLLICULITIS[ICD9: 704.8] Chelsie HASSAN 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 CANDICE AU [facility] CPT-4: 34875 07/08/2014 ([id number]) OFFICE/OUTPATIENT VISIT NEW Diagnosis: HYPERTENSION[ICD9: 401.9] Diagnosis: GERD[ICD9: 530.81] [facility] CPT-[facility]: 61421 07/08/2014 Plan of Care Planned Activity Notes [...] ICD-10 : L08.9 10/27/2019 Appointment: Lashell Joe [address] [place], [place] [phone] ACUTE ILLNESS 10/27/2019 Patient Education: tramadol- [employer] Coupon [id number] [email or web address]/[email or web address]/resources/getResource/[email or web address] Completed 10/27/2019 Visit Plan: Update Low Dose [...] : I35.1 10/02/2019 Appointment: Sapna Live WPtel: [facility]4 [facility] FOLLOW UP 10/02/2019 Care Plan: Referral Order SNOMED-CT : 30 [id number] Pending 10/02/2019 Visit Diagnosis Plan: Chest pain Discussion: will star t with cxray and rib xray. discussed that could be lung, rib, muscle but will start with cxray and patient may need echo. he verbalized understanding. ICD-9 : 786.50 ICD-10 : R07.9 08/25/2019 Appointment: Lashell Joe [address] [place], [place] [phone] ACUTE ILLNESS 08/25/2019 Visit Diagnosis Plan: Thoracic back pain Discussion: c hronic pain. will refer to dr. stallings at [place] for evaluation and treatment ICD-9 : 724.1 [...] ct of lungs to be done at [facility]. ICD-9 : V15.82 ICD-10 : Z87.891 [...] 255.8 ICD-10 : E27.8 08/13/2019 Appointment: Lashell Jeo [address] [place], [place] [phone] [place] FOLLOW UP 08/13/2019 Visit Diagnosis Plan: Sigmoid diverticulitis Discussio n: Bactrim/Flagyl [place] diet To ER this weekend if worsening ICD-9 : 562.11 ICD-10 : K57.32 07/03/2019 Visit Diagnosis Plan: Jock itch Discussion: Diflucan a nd topical nystatin ICD-9 : 110.3 ICD-10 : B35.6 07/03/2019 Visit Diagnosis Plan: Renal insufficiency Discussion: Labs discussed Continue off NSAIDS Hydrate Recheck Chemistry 3mos ICD-9 : 593.9 ICD-10 : N28.9 07/03/2019 Appointment: Sapna Live WPtel: [phone] [facility] [place] FOLLOW UP 07/03/2019 Patient Education: fluconazole- [employer] [id number] Completed 07/03/2019 Patient Education: nystatin- [employer] [id number] Completed 07/03/2019 Visit Diagnosis Plan: Disorder of [...] ICD-10 : R25.2 06/05/2019 Appointment: Lashell Joe [address] [place] [address] NO SHOW - FORGIVEN 06/05/2019 Appointment: Lashell Joe [address] [place] [address] ACUTE ILLNESS 06/05/2019 Visit Diagnosis Plan: Pain [...] ICD-10 : L29.8 05/21/2019 Appointment: Lashell Joe [address] [place] [address] ACUTE ILLNESS 05/21/2019 Patient Education: hydroxyzine HCl- [employer] Coupon [id number] [email or web address].[email or web address]/getResource/[email or web address] Completed 05/21/2019 Appointment: Sapna Live WPtel: [phone] [facility] 05/19/19 1645---see note put in chart today (km) CANCELED 05/19/2019 Appointment: [facility]apna Live [facility]Ptel[phone] [facility] [facility]ED 05/05/2019 Appointment: Sapna Live WPtel: [phone] [facility] UA 04/21/2019 Visit Diagnosis Plan: Diverticulitis [...] : K59.09 02/24/2019 Appointment: Lashell Joe [address] Follow Up 02/24/2019 Visit Diagnosis Plan: Diverticulitis of large intestine without perforation or abscess with bleeding Discussion: Continue flagyl and cipro. A dvance diet to bland. BRAT diet advised. Avoid nuts, seeds, popcorn, roughage. RTC if abdominal pain worsens or does not improve. ICD-9 : 562.13 ICD-10 : K57.33 02/04/2019 Appointment: Nancy Mendiola [address] [facility]66[facility] [[email or web address] FOLLOW UP 02/04/2019 Visit Diagnosis Plan: Left lower quadrant pain Discuss ion: CT abdomen and pelvis- pending. Continue Bactrim. UA shows trace hematuria- will r/o kidney stone vs. diverticulitis. Urine sent for culture. Patient instructed to go to ED [facility] with worsening symptoms. No work until called with results of CT scan. Patient states understanding. ICD-9 : 789.04 ICD-10 : R10.32 01/29/2019 Appointment: [facility] [facility] 01/29/2019 Care Plan: CT PELVIS [...] : L30.9 12/19/2018 Appointment: Sapna Live WPtel: [address] [place] [address] ACUTE ILLNESS 12/19/2018 Visit Diagnosis Plan: Gastro-esophageal reflux disease without esophagitis Discussion: Continue protonix at 40mg daily Hold mobic No NSAIDS Hold all MVs If persists then will need EGD ICD-9 : 530.81 ICD-10 : K21.9 11/11/2018 Appointment: Sapna Live WPtel: [address] [place] [address] FOLLOW UP 11/11/2018 Visit Diagnosis Plan: Encounter for [facility] adult medical examination without abnormal findings [...] ICD-10 : I10 10/09/2018 Appointment: Lashell Joe [address] [place], [place] [phone] Annual Well Visit 10/09/2018 Patient Education: gabapentin- [employer] Coupon [id number] Completed 10/09/2018 Patient Education: Kegel Exercises Comple catalina 10/09/2018 Patient Education: High Blood Pressure Co mpleted 10/09/2018 Visit Diagnosis Plan: Pain in right knee Discussion: c orticosteroid injection administered as described above. patient tolerated well. instructed to rtc in 3- 4 months if needed for additional injection. ICD-9 : 719.46 ICD-10 : M25.561 02/19/2018 Appointment: Lashell Joe [address] [place], [place] [phone] OFFICE SURGERY 02/19/2018 Patient Education: Patient Medication [...] ICD-10 : M25.551 02/12/2018 Appointment: Lashell Joe [address] [place], [place] [phone] ACUTE ILLNESS 02/12/2018 Patient Education: Patient Medication Summary Completed 02/12/2018 Care Plan: X-RAY EXAM OF KNEE 1 OR 2 [place] : [address]3 Pending 02/12/2018 Visit Diagnosis Plan: Essential (primary) [...] ICD-10 : R07.89 12/03/2017 Appointment: Lashell Joe [address] [place], [place] [phone] ESTABLISHED PATIENT 12/03/2017 Patient Education: Patient Medication Summary Completed 12/03/2017 Visit Diagnosis Plan: Essential (primary) hypertension Discussion: Increase quinapril to 40mg daily BP check in 1month ICD-9 : 401.9 ICD-10 : I10 09/11/2017 Appointment: Sapna Live WPtel: [address] [place], [place] [email or web address] FOLLOW UP 09/11/2017 Patient Education: Patient Medication Summary Completed 09/11/2017 Appointment: Sapna Live WPtel: [address] [place] [address] US RESCHEDULED 08/22/2017 Visit Diagnosis Plan: Essential (primary) hypertension Discussion: Increase quinapril to 20mg daily Follow Up: 1 months ICD-9 : 401.9 ICD-10 : I10 08/13/2017 Visit Diagnosis Plan: Encounter for [facility] adult medical examination without abnormal findings Discussion: Update fasting lab ICD-9 : V70.9 ICD-10 : Z00.00 08/13/2017 Visit Diagnosis Plan: Left lower quadrant pain Discuss ion: Update colonoscopy ICD-9 : 789.04 ICD-10 : R10.32 08/13/2017 Appointment: Sapna Live WPtel: [address] [place] [address] Annual Well Visit 08/13/2017 Patient Education: Patient Medication Summary Completed 08/13/2017 Appointment: Sapna Live WPtel: [address] [place] [address] THROAT SWAB 02/13/2017 Patient Education: Patient Medication Summary Completed 02/13/2017 Appointment: Sapna Live WPtel: [address] [place], [place] [address] US BP CHECK 11/17/2016 Patient Education: Patient Medication Summary Completed 11/17/2016 Visit Plan: Due for colonoscopy in 2018 Had shingles shot and flu shot Change quinapril hct to plain quinapril and see if muscles twitches improve Fwup with Dr. Braga Lab discussed Discussed diet/exercise at length Check CT abdomen Recheck 3mos 07/19/2016 Appointment: Sapna Live WPtel: [address] [place], [place] [phone] [place] 07/18 confirmed`sl PHYSICAL 07/19/2016 Patient Education: [...] convenience 06/09/2016 Appointment: Sobia Monreal WPtel: [phone] [place] [id number] ACUTE ILLNESS 06/09/2016 Patient Education: Patient Medication Summary Completed 06/09/2016 Referral: Demario Braga WPtel: [address] [place], [place] [phone] Referral Initiated 11/12/2015 Visit Plan: Continue indwelling catheter until follow-up with Dr. Braga Continue Bactrim and Cipro Pyridium TID for Bladder spasms 11/08/2015 Appointment: Chelsie Teixeira WPtel: [address] [place], [place] [phone] ER Follow UP 11/08/2015 Patient Education: Patient Medication Summary Completed 11/08/2015 Referral: Abdiel Tucker WPtel: [address] [place], [place] [phone] Referral Initiated 06/21/2015 Visit Plan: Prednisone 20mg daily for 1w tolowa dee-ni' See surgery of cyst removal 06/14/2015 Appointment: Sapna Live WPtel: [phone] [place] [id number] 06/11 cn 06/14 cn FOLLOW UP 2014 Patient Education: Patient Medication Summary Completed 06/14/2015 Visit Plan: Warm moist compresses to Lef t shoulder lesion and apply topical Mupirocin twice daily Complete Cephalexin x 7 days as directed Resume Culturelle daily 05/18/2015 Appointment: Chelsie Teixeiral: [address] [place], [place] [phone] ACUTE ILLNESS 05/18/2015 Patient Education: Patient Medication Summary Completed 05/18/2015 Visit Plan: Check fasting lab Use pain m eds prn with miralax on the day that takes pain meds 02/22/2015 Appointment: Sapna Live WPtel: [address] [place], [place] [phone] 02/19 vm cn 02/19 appt confirmed-lb ACUTE ILLNESS 5 Patient Education: Patient Medication Summary Completed 02/22/2015 Visit Plan: Increase neurontin to 300mg q HS Continue flexeril and tramadol Call in 1mo on how higher dose of gabapentin 12/02/2014 Appointment: Sapna Live WPtel: [address] [place], [place] [phone] FOLLOW UP 12/02/2014 Patient Education: Patient Medication Summary Completed 12/02/2014 Referral: Eric Angelo WPtel: [address] [employer] [address] Referral Appointment Confirmed 09/15/2014 Visit Plan: Proceed with pain doctor for possible injection vs nerve block Trial of lidoderm patch Cryotherapy to lesions as above 08/18/2014 Appointment: Sapna Live WPtel: [address] [place], [place] [phone] ACUTE ILLNESS 08/18/2014 Patient Education: Patient Medication Summary Completed 08/18/2014 Patient Education: Patient Medication Summary Completed 08/13/2014 Visit Plan: Continue current meds Obtain most recent lab results Check thoracic spine x-rays Needs updated CT scan of adrenal tumor 07/08/2014 Appointment: Sapna Live WPtel: [address] [place] [address] 07/07 vm NEW PATIENT 07/08/2014 Patient Education: Patient Medication Summary Completed 07/08/2014 Patient Education: Patient Medication Summary Completed 07/08/2014 Referral: Suhail Cardenas WPtel: [address] [id number] [place] Referral Completed Referral: Toby Bettencourt WPtel: [address] [facility] [address] [id number] [place] Referral Completed Referral: Rosario Monahan WPtel: [address] [place] Referral Appointment Requested Instructions [...]
--- OUTSIDE RECORDS SUMMARY | 2020-02-05 07:55 | XMS REPORT | CCD ---
Author Author Jai Live D.O. Organization [facility] Address [address] [place] [address] Phone Care Team Providers Care Storage Architect Name Role Phone Sapna Live D.O., PP Unavailable CCM Unavailable Summary Purpose Interface Exchange Insurance Providers Payer name Policy type / Coverage type Covered democrat ID Effective Begin Date Effective End Date GPA Commercial Insurance [id number] 2019 Unknown Family history Mother Diagnosis Age At Onset Cancer Unknown Father Diagnosis Age At Onset Congestive heart failure Unknown Coronary Artery Disease(CAD) Unknown Social History Social History Element Codes Description Effective Dates Tobacco history SNOMED CT: 8814087 Former smoker 10/09/2018 Marital status Unknown 07/08/2014 Number of children Unknown 1 07/08/2014 Employment Unknown Currently employed [employer] 07/08/[address]: 907276547 Never drinks alcohol 2013 Has the patient [...] Fill Instructions tramadol 50 mg tablet RxNorm: 159924 1 Tablet(s) Oral t hree times a day as needed for pain along with two tylenol 10/27/2019 10/27/2019 Inactive cyclobenzaprine 10 mg tablet RxNorm: 870638 1 Tablet(s) Oral th ree times a day 10/27/2019 No Stop Date Active Bactrim DS 800 mg-160 mg tablet RxNorm: 343897 1 Tablet(s) Oral two times a day 10/27/2019 11/03/2019 Active tramadol 50 mg tablet RxNorm: 024424 1 Tablet(s) Oral t hree times a day as needed for pain along with two tylenol 10/27/2019 10/26/2019 Inactive Bactrim DS 800 mg-160 mg tablet RxNorm: 873060 1 Tablet(s) Oral two times a day 10/27/2019 10/26/2019 Inactive tramadol 50 mg tablet RxNorm: 587743 1 Tablet(s) Oral t hree times a day as needed for pain along with two tylenol 09/29/2019 10/26/2019 Inactive quinapril 40 mg tablet RxNorm: 395466 1 Tablet(s) Oral QD 09/18/2019 03/15/2020 Active Patient requests 90 days supply tramadol 50 mg tablet RxNorm: 567382 1 Tablet(s) Oral t hree times a day as needed for pain along with two tylenol 08/28/2019 08/28/2019 Inactive tramadol 50 mg tablet RxNorm: 844543 1 Tablet(s) PO TID as needed for pain along with two tylenol 08/25/2019 08/27/2019 Inactive pantoprazole 40 mg tablet,delayed release RxNorm: 617156 1 Tabl et(s) Oral QD 08/13/2019 No Stop Date Active Vitamin D3 1,000 unit capsule RxNorm: 633862 1 Capsule(s) Oral QD 1 10/13/2018 No Stop Date Active tamsulosin 0.4 mg capsule RxNorm: 440727 1 Capsule(s) Oral QPM 07/26 No Stop Date Active Protonix 40 mg tablet,delayed release RxNorm: 135161 TA KE 1 TABLET BY MOUTH TWICE A DAY 08/04/2019 08/12/2019 Inactive Flagyl 500 mg tablet RxNorm: 409487 1 Tablet(s) Oral three time s a day 07/03/2019 07/13/2019 Inactive fluconazole 100 mg tablet RxNorm: 849355 1 Tablet(s) Oral QD 201807/10/2019 Inactive Bactrim DS 800 mg-160 mg tablet RxNorm: 275769 1 Tablet(s) Oral two times a day 07/03/2019 07/13/2019 Inactive nystatin 100,000 unit/gram topical cream RxNorm: 920520 Application Topical two times a day 07/03/2019 08/12/2019 Inactive gabapentin 600 mg tablet RxNorm: 636179 Tablet(s) TAKE 1 TABLET BY MOUTH EVERY NIGHT AT BEDTIME 06/25/2019 08/12/2019 Inactive - First Attempt Ref: [id number] quinapril 40 mg tablet RxNorm: 394583 1 Tablet(s) Oral QD 06/23/2019 09/17/2019 Inactive Patient requests 90 days supply tramadol 50 mg tablet RxNorm: 897570 1 Tablet(s) PO TID as needed for pain along with two tylenol 05/23/2019 08/24/2019 Inactive hydroxyzine HCl 25 mg tablet RxNorm: 498199 1 Tablet(s) PO TID as needed 05/21/2019 08/12/2019 Inactive Elimite 5 % topical cream RxNorm: 014266 1 Application TOP QHS apply head to toe and was off in morning 05/19/2019 07/02/2019 Inactive Protonix 40 mg tablet,delayed release RxNorm: 942894 1 Tablet(s ) PO BID 05/05/2019 08/02/2019 Inactive - First Attempt Ref: [id number] gabapentin 600 mg tablet RxNorm: 949273 Tablet(s) TAKE 1 TABLET BY MOUTH EVERY NIGHT AT BEDTIME 04/25/2019 06/24/2019 Inactive - First Attempt Ref: [id number] tramadol 50 mg tablet RxNorm: 208758 1 Tablet(s) PO TID as needed for pain along with two tylenol 04/21/2019 05/22/2019 Inactive quinapril 40 mg tablet RxNorm: 525450 1 Tablet(s) PO QD 04/01/2019 Inactive Patient requests 90 days supply fenofibrate micronized 134 mg capsule RxNorm: 815442 1 Capsule(s) PO QD Due for updated fasting labs 03/31/2019 08/12/2019 Inactive dicyclomine 10 mg capsule RxNorm: 319435 1 Capsule(s) PO TID as needed 02/24/2019 05/20/2019 Inactive Flagyl 500 mg tablet RxNorm: 324941 1 Tablet(s) PO Q8H 02/24/201908/2019 Inactive ciprofloxacin 500 mg tablet RxNorm: 498463 1 Tablet(s) PO BID 02/2403/09/2019 Inactive Flagyl 500 mg tablet RxNorm: 980981 1 Tablet(s) PO Q6H 01/30/2019 Inactive ciprofloxacin 500 mg tablet RxNorm: 408024 1 Tablet(s) PO BID 01/3001/29/2019 Inactive Flagyl 500 mg tablet RxNorm: 778101 1 Tablet(s) PO Q6H 01/30/201904/2019 Inactive ciprofloxacin 500 mg tablet RxNorm: 959302 1 Tablet(s) PO BID 01/3002/05/2019 Inactive gabapentin 600 mg tablet RxNorm: 627868 TAKE 1 TABLET B Y MOUTH EVERY NIGHT AT BEDTIME 01/27/2019 04/24/2019 Inactive - First Attempt Ref: [id number] tramadol 50 mg tablet RxNorm: 270876 1 Tablet(s) PO TID as needed for pain along with two tylenol 01/08/2019 04/20/2019 Inactive fenofibrate micronized 134 mg capsule RxNorm: 538870 1 Capsule(s) PO QD Due for updated fasting labs 01/02/2019 03/30/2019 Inactive quinapril 40 mg tablet RxNorm: 944427 1 Tablet(s) PO QD 01/01/2019 Inactive Patient requests 90 days supply Protonix 40 mg tablet,delayed release RxNorm: 725322 TA KE 1 TABLET BY MOUTH TWICE A DAY 01/01/2019 03/31/2019 Inactive - First Attempt Ref: [id number] Protonix 40 mg tablet,delayed release RxNorm: 745952 TA KE 1 TABLET BY MOUTH TWICE A DAY 12/25/2018 12/31/2018 Inactive - First Attempt Ref: [id number] gabapentin 600 mg tablet RxNorm: 848436 TAKE 1 TABLET B Y MOUTH EVERY NIGHT AT BEDTIME 12/02/2018 01/26/2019 Inactive - First Attempt Ref: [id number] Protonix 40 mg tablet,delayed release RxNorm: 611876 1 Tablet(s ) PO BID 11/11/2018 12/24/2018 Inactive Protonix 40 mg tablet,delayed release RxNorm: 650576 1 Tablet(s ) PO BID 10/09/2018 11/10/2018 Inactive gabapentin 600 mg tablet RxNorm: 348278 1 Tablet(s) PO QHS 10/09/19 19 12/01/2018 Inactive quinapril 40 mg tablet RxNorm: 469534 1 Tablet(s) PO QD 1 TABLE T(S) PO QD 08/08/2018 08/07/2018 Inactive Patient requests 9 0 days supply quinapril 40 mg tablet RxNorm: 627676 1 Tablet(s) PO QD 08/08/2018 Inactive Patient requests 90 days supply meloxicam 15 mg tablet RxNorm: 468193 1 Tablet(s) PO QD 08/08/2018 Inactive gabapentin 300 mg capsule RxNorm: 386656 1 CAPSULE(S) P O QHS DUE FOR WELLNESS VISIT 08/07/2018 10/08/2018 Inactive due for followup meloxicam 15 mg tablet RxNorm: 768144 Tablet(s) 1 TABLET(S) PO QD 1 10/07/2017 08/07/2018 Inactive fenofibrate micronized 134 mg capsule RxNorm: 245497 1 Capsule(s) PO QD Needs updated fasting labs!!!!!! 07/08/2018 07/07/2018 Inactive fenofibrate micronized 134 mg capsule RxNorm: 840478 1 Capsule( s) PO QD 07/08/2018 01/01/2019 Inactive fenofibrate micronized 134 mg capsule RxNorm: 486206 1 Capsule(s) PO QD Needs updated fasting labs!!!!!! 06/21/2018 07/08/2018 Inactive Medrol (Daniel) 4 mg tablets in a dose pack RxNorm: 243273 Tablet(s) PO As Directed 05/06/2018 05/05/2018 Inactive Medrol (Daniel) 4 mg tablets in a dose pack RxNorm: 981904 Tablet(s) PO As Directed 05/06/2018 08/07/2018 Inactive quinapril 40 mg tablet RxNorm: 552268 1 TABLET(S) PO QD 05/02/2018 Inactive Patient requests 90 days supply fenofibrate micronized 134 mg capsule RxNorm: 630221 1 Capsule(s) PO QD Needs updated fasting labs 04/29/2018 05/28/2018 Inactive Move Free Joint Health 750 mg-100 mg-1.65 mg-108 mg tablet R xNorm: 1 Tablet(s) PO QD 02/12/2018 03/13/2018 Inactive fenofibrate micronized 134 mg capsule RxNorm: 696784 Ca psule(s) 1 CAPSULE(S) PO QD 01/29/2018 06/21/2018 Inactive quinapril 40 mg tablet RxNorm: 342361 1 TABLET(S) PO QD 11/26/2017 Inactive Patient requests 90 days supply fenofibrate micronized 134 mg capsule RxNorm: 401748 1 CAPSULE( S) PO QD 11/06/2017 01/29/2018 Inactive gabapentin 300 mg capsule RxNorm: 501487 1 CAPSULE(S) P O QHS DUE FOR WELLNESS VISIT 10/24/2017 07/20/2018 Inactive due for followup meloxicam 15 mg tablet RxNorm: 561092 1 TABLET(S) PO QD 10/24/2017 Inactive quinapril 40 mg tablet RxNorm: 946204 1 Tablet(s) PO QD 10/24/2017 Inactive fenofibrate micronized 134 mg capsule RxNorm: 459662 1 Capsule( s) PO QD 08/22/2017 11/05/2017 Inactive fenofibrate micronized 134 mg capsule RxNorm: 384243 1 Capsule( s) PO QD 08/22/2017 08/21/2017 Inactive quinapril 20 mg tablet RxNorm: 483709 1 Tablet(s) PO QD 08/13/2017 Inactive gabapentin 300 mg capsule RxNorm: 576200 1 Capsule(s) P O QHS Due for wellness visit 08/06/2017 10/23/2017 Inactive due for followup gabapentin 300 mg capsule RxNorm: 069930 1 Capsule(s) P O QHS Due for wellness visit 08/02/2017 08/05/2017 Inactive due for followup meloxicam 15 mg tablet RxNorm: 446057 1 Tablet(s) PO QD 08/01/2017 Inactive gabapentin 300 mg capsule RxNorm: 272420 1 Capsule(s) P O QHS Due for wellness visit 08/01/2017 08/01/2017 Inactive due for followup gabapentin 300 mg capsule RxNorm: 598341 1 Capsule(s) P O QHS Due for wellness visit 08/01/2017 08/02/2017 Inactive gabapentin 300 mg capsule RxNorm: 436013 1 Capsule(s) PO QHS 201605/12/2017 Inactive quinapril 10 mg tablet RxNorm: 201908 1 Tablet(s) PO QD replace s quinapril hct 02/12/2017 08/12/2017 Inactive meloxicam 15 mg tablet RxNorm: 354060 1 Tablet(s) PO QD 02/05/2017 Inactive quinapril 10 mg tablet RxNorm: 589427 1 Tablet(s) PO QD replace s quinapril hct 11/16/2016 02/12/2017 Inactive gabapentin 300 mg capsule RxNorm: 370801 1 Capsule(s) PO QHS 201602/12/2017 Inactive quinapril 10 mg tablet RxNorm: 460947 1 Tablet(s) PO QD replace s quinapril hct 10/16/2016 11/15/2016 Inactive gabapentin 300 mg capsule RxNorm: 934104 1 Capsule(s) PO QHS 201511/15/2016 Inactive quinapril 10 mg tablet RxNorm: 619306 1 Tablet(s) PO QD replace s quinapril hct 07/19/2016 10/15/2016 Inactive meloxicam 15 mg tablet RxNorm: 444998 1 Tablet(s) PO QD 07/10/2016 Inactive meloxicam 15 mg tablet RxNorm: 389954 TAKE ONE TABLET BY MOUTH LUKE Y 07/10/2016 07/09/2016 Inactive meloxicam 15 mg tablet RxNorm: 478268 1 Tablet(s) PO QD 07/06/2016 Inactive meloxicam 15 mg tablet RxNorm: 178519 1 Tablet(s) PO QD 06/09/2016 Inactive Multivitamin & Mineral Formula tablet RxNorm: 1 Tablet(s) PO Q D 06/02/2016 07/01/2016 Inactive tamsulosin 0.4 mg capsule RxNorm: 526739 1 Capsule(s) PO QHS 201507/01/2016 Inactive Move [facility] Joint Health 750 mg-100 mg-1.65 mg-108 mg tablet R xNorm: 1 Tablet(s) PO QD 06/02/2016 07/01/2016 Inactive gabapentin 300 mg capsule RxNorm: 346269 1 Capsule(s) PO QHS 201508/27/2016 Inactive gabapentin 300 mg capsule RxNorm: 912532 Capsule(s) ALFONZO E ONE CAPSULE BY MOUTH AT BEDTIME 02/28/2016 05/27/2016 Inactive quinapril 10 mg-hydrochlorothiazide 12.5 mg tablet RxNorm: 3 49839 Tablet(s) TAKE ONE TABLET BY MOUTH EVERY MORNING 01/14/2016 07/18/2016 Inactive gabapentin 300 mg capsule RxNorm: 805367 TAKE ONE CAPSULE BY [facility] AT BEDTIME 12/28/2015 02/27/2016 Inactive Urecholine 25 mg tablet RxNorm: 082324 1 Tablet(s) PO TID 11/09/2015 07/18/2016 Inactive phenazopyridine 100 mg tablet RxNorm: 2702937 1 Tablet(s ) PO TID as needed for bladder spasms. 11/08/2015 11/08/2015 Inactive quinapril 10 mg-hydrochlorothiazide 12.5 mg tablet RxNorm: 3 31762 TAKE ONE TABLET BY MOUTH EVERY MORNING 10/15/2015 01/13/2016 Inactive gabapentin 300 mg capsule RxNorm: 114706 1 Tablet(s) PO QD TAKE ONE CAPSULE BY MOUTH EVERY NIGHT AT BEDTIME 09/23/2015 12/21/2015 Inactive quinapril 10 mg-hydrochlorothiazide 12.5 mg tablet RxNorm: 3 52651 Tablet(s) TAKE ONE TABLET BY MOUTH EVERY MORNING 07/14/2015 10/14/2015 Inactive gabapentin 300 mg capsule RxNorm: 232918 1 Tablet(s) PO QD TAKE ONE CAPSULE BY MOUTH EVERY NIGHT AT BEDTIME 06/25/2015 09/23/2015 Inactive prednisone 20 mg tablet RxNorm: 409299 1 Tablet(s) PO QD 06/14/2015 0 06/20/2015 Inactive cephalexin 500 mg capsule RxNorm: 453078 1 Capsule(s) PO BID 201405/27/2015 Inactive mupirocin 2 % topical ointment RxNorm: 817515 TOP BID 05/18/2015 0 06/13/2015 Inactive quinapril 10 mg-hydrochlorothiazide 12.5 mg tablet RxNorm: 3 69895 Tablet(s) TAKE ONE TABLET BY MOUTH EVERY MORNING 04/06/2015 07/14/2015 Inactive gabapentin 300 mg capsule RxNorm: 694524 1 Capsule(s) PO QHS 201404/01/2015 Inactive [SAVINGS FOR NON-COVERED LILIANA GS -- BIN:542562, PCN: ASPROD1, Group: XXXXX, ID# [id number], Questions: . THIS IS NOT INSURANCE.] gabapentin 300 mg capsule RxNorm: 647401 1 Capsule(s) PO QHS 201406/25/2015 Inactive [SAVINGS FOR NON-COVERED LILIANA GS -- BIN:916288, PCN: ASPROD1, Group: XXXXX, ID# [id number], Questions: . THIS IS NOT INSURANCE.] quinapril 10 mg-hydrochlorothiazide 12.5 mg tablet RxNorm: 3 80807 TAKE ONE TABLET BY MOUTH EVERY MORNING 12/11/2014 04/05/2015 Inactive gabapentin 300 mg capsule RxNorm: 222840 1 Capsule(s) PO QHS 201404/02/2015 Inactive [SAVINGS FOR NON-COVERED LILIANA GS -- BIN:321075, PCN: ASPROD1, Group: XXXXX, ID# [id number], Questions: . THIS IS NOT INSURANCE.] cyclobenzaprine 10 mg tablet RxNorm: 875586 1 Tablet(s) PO TID as needed for muscle spasm for muscle spasm 12/02/2014 02/21/2015 Inactive [S AVINGS FOR NON- COVERED DRUGS -- BIN:446321, PCN: ASPROD1, Group: XXXXX, ID# [id number], Questions: . THIS IS NOT INSURANCE.] gabapentin 100 mg capsule RxNorm: 880667 1 Capsule(s) PO QHS 201412/01/2014 Inactive [SAVINGS FOR NON-COVERED LILIANA GS -- BIN:443471, PCN: ASPROD1, Group: XXXXX, ID# [id number], Questions: . THIS IS NOT INSURANCE.] ibuprofen 800 mg tablet RxNorm: 917878 1 Tablet(s) PO T ID as needed low back pain 11/11/2014 11/23/2014 Inactive [SAVINGS FOR NON -COVERED DRUGS -- BIN:356185, PCN: ASPROD1, Group: XXXXX, ID# [id number], Questions: . THIS IS NOT INSURANCE.] ibuprofen 800 mg tablet RxNorm: 271835 1 Tablet(s) PO T ID as needed low back pain 11/09/2014 11/10/2014 Inactive [SAVINGS FOR NON -COVERED DRUGS -- BIN:153040, PCN: ASPROD1, Group: XXXXX, ID# [id number], Questions: . THIS IS NOT INSURANCE.] Zorvolex 35 mg capsule RxNorm: 2484118 1 Tablet(s) PO TID 08/27/2014 10/01/2014 Inactive [SAVINGS FOR UNINSURED PATIENTS -- BIN:0 74316, PCN: ASPROD1, Group: AME08, ID# [id number], Process claim through [employer], for questions: . THIS IS NOT INSURANCE.] quinapril 10 mg-hydrochlorothiazide 12.5 mg tablet RxNorm: 3 53070 1 Tablet(s) PO QAM 08/27/2014 11/24/2014 Inactive Lidoderm 5 % (700 mg/patch) adhesive patch RxNorm: 7244859 Application TOP for 12hours then off for pain 08/18/2014 02/21/2015 Inactive [SAVIN GS FOR UNINSURED PATIENTS -- BIN:148844, PCN: ASPROD1, Group: AME08, ID# [id number], Process claim through [employer], for questions: . THIS IS NOT INSURANCE.] Zorvolex 35 mg capsule RxNorm: 8994783 1 Tablet(s) PO TID 08/13/2014 08/12/2014 Inactive Zorvolex 35 mg capsule RxNorm: 5063359 1 Tablet(s) PO TID 08/13/2014 08/24/2014 Inactive [SAVINGS FOR UNINSURED PATIENTS -- BIN:0 33929, PCN: ASPROD1, Group: AME08, ID# [id number], Process claim through [employer], for questions: . THIS IS NOT INSURANCE.] Aspirin Child 81 mg chewable tablet RxNorm: 120286 1 Tablet(s) PO QD No Start Date Active ibuprofen 800 mg tablet RxNorm: 126552 1 Tablet(s) PO T ID as needed low back pain No Start Date 11/08/2014 Inactive cyclobenzaprine 10 mg tablet RxNorm: 304033 1 Tablet(s) PO TID No S tart Date 08/12/2017 Inactive garlic 1,000 mg capsule RxNorm: 524235 1 Capsule(s) PO QD No Start Date 04/22/2019 Inactive tramadol 50 mg tablet RxNorm: 868053 1 Tablet(s) PO Q4-6H as ne eded for pain No Start Date 02/21/2015 Inactive tramadol 50 mg tablet RxNorm: 873922 1 Tablet(s) PO TID as needed for pain along with two tylenol No Start Date 01/07/2019 Inactive krill oil oral RxNorm: 01403 oral No Start Date 11/11/2018 Inacti ve Vitamin D3 2,000 unit tablet RxNorm: 766793 1 Tablet(s) PO QD No St art Date 08/12/2019 Inactive gabapentin 100 mg tablet RxNorm: 169738 1 Tablet(s) PO QD No Start Date 11/10/2014 Inactive Zofran 4 mg tablet RxNorm: 541516 1 Tablet(s) PO Q6H as needed No S tart Date 08/12/2019 Inactive Elimite 5 % topical cream RxNorm: 205873 1 Application TOP QHS apply head to toe and was off in morning No Start Date 05/18/2019 Inactive gabapentin 100 mg capsule RxNorm: 549474 1 Capsule(s) PO QHS No Sta rt Date 11/10/2014 Inactive aspirin 325 mg tablet RxNorm: 429086 2 Tablet(s) PO QD No Start Date 08/17/2014 Inactive Fish Oil 1,000 mg capsule RxNorm: 1 Capsule(s) PO QD No Start Date 10/08/2018 Inactive quinapril 10 mg-hydrochlorothiazide 12.5 mg tablet RxNorm: 3 46435 1 Tablet(s) PO QAM No Start Date 08/26/2014 Inactive quinapril 40 mg tablet RxNorm: 321818 1 Tablet(s) PO QD No Start Da te 10/23/2017 Inactive Medrol (Daniel) 4 mg tablets in a dose pack RxNorm: 680099 Tablet(s) PO As Directed No Start Date 05/05/2018 Inactive Urecholine 25 mg tablet RxNorm: 379765 1 Tablet(s) PO TID No Start Date 11/08/2015 Inactive cyclobenzaprine 10 mg tablet RxNorm: 152249 1/2-1 Table t(s) PO TID as needed for muscle spasm No Start Date 12/01/2014 Inactive tamsulosin 0.4 mg capsule RxNorm: 046312 2 Capsule(s) PO QPM No Sta rt Date 08/12/2019 Inactive hydrocodone 5 mg-acetaminophen 325 mg tablet RxNorm: 031851 1 -2 Tablet(s) PO Q6H as needed No Start Date 05/20/2019 Inactive loratadine 10 mg tablet RxNorm: 743984 1 Tablet(s) PO QD No Start D ate 07/07/2014 Inactive Medication Administered No Medication Administered data Immunizations Vaccine Codes Date Status Influenza CVX: 141 07/21/2019 Results Observation Observation Code Item Item Code Result Date S ervice Location CULTURE, URINE, ROUTINE 395 CULTURE SEE NOTE 1 10/15/[address] [address] CULTURE, URINE, ROUTINE 395 CULTURE, URINE, ROUTINE SEE NOTE 08/15/[address] [address] CBC (H/H, RBC, INDICES, WBC, PLT) 93951 WHITE BLOOD CELL COU NT 7.9 Thousand/uL 08/14/[address] [address] CBC (H/H, RBC, INDICES, WBC, PLT) 45962 RED BLOOD CELL COUNT 4.93 Million/uL 08/14/[address] [address] CBC (H/H, RBC, INDICES, WBC, PLT) 99029 HEMOGLOBIN 15 .4 g/dL 08/14/[address] [address] CBC (H/H, RBC, INDICES, WBC, PLT) 47899 HEMATOCRIT 45 .0 % 08/14/[address] [address] CBC (H/H, RBC, INDICES, WBC, PLT) 48010 MCV 91 .3 fL 08/14/[address] [address] CBC (H/H, RBC, INDICES, WBC, PLT) 56976 MCH 31 .2 pg 08/14/[address] [address] CBC (H/H, RBC, INDICES, WBC, PLT) 18481 MCHC 34 .2 g/dL 08/14/[address] [address] CBC (H/H, RBC, INDICES, WBC, PLT) 91597 RDW 12 .7 % 08/14/2019 [facility] [address] CBC (H/H, RBC, INDICES, WBC, PLT) 48103 PLATELET COUNT 214 Thousand/uL 08/14/2019 [facility] [address] [address] CBC (H/H, RBC, INDICES, WBC, PLT) 39552 MPV 11 .5 fL 08/14/2019 [facility] [address] [place] [address] COMPREHENSIVE METABOLIC PANEL 67775 Glucose 113 mg /dL 08/14/2019 [facility] [address] [address] COMPREHENSIVE METABOLIC PANEL 76165 UREA NITROGEN (BUN) 16 mg/dL 08/14/2019 [facility] [address] [address] COMPREHENSIVE METABOLIC PANEL 20905 CREATININE 0.86 m g/dL 08/14/2019 [facility] [address] [address] COMPREHENSIVE METABOLIC PANEL 35068 eGFR NON-AFR. CUBAN 92 mL/min/1.73m2 08/14/2019 [facility] [address] [address] COMPREHENSIVE METABOLIC PANEL 09654 eGFR 106 mL/min/1.73m2 08/14/2019 [facility] [address] [address] COMPREHENSIVE METABOLIC PANEL 99787 BUN/CREATININE RATIO NOT APPLICABLE (calc) 08/14/2019 [facility] [address] [place] [address] COMPREHENSIVE METABOLIC PANEL 38003 SODIUM 141 mm ol/L 08/14/2019 [facility] [address] [place] [address] COMPREHENSIVE METABOLIC PANEL 00582 POTASSIUM 4.1 mm ol/L 08/14/2019 [facility] [address] [place] [address] COMPREHENSIVE METABOLIC PANEL 59774 CHLORIDE 102 mm ol/L 08/14/2019 [facility] [address] [address] COMPREHENSIVE METABOLIC PANEL 15695 CARBON DIOXIDE 28 mmol/L 08/14/2019 [facility] [address] [address] COMPREHENSIVE METABOLIC PANEL 54697 CALCIUM 9.7 mg /dL 08/14/2019 [facility] [address] [address] COMPREHENSIVE METABOLIC PANEL 48902 PROTEIN, TOTAL 6. 7 g/dL 08/14/[address] [facility] [address] COMPREHENSIVE METABOLIC PANEL 16385 ALBUMIN 4.3 g/ dL 08/14/2019 [facility] [address] [address] COMPREHENSIVE METABOLIC PANEL 41462 GLOBULIN 2.4 g/ dL(calc) 08/14/2019 [facility] [address] [address] COMPREHENSIVE METABOLIC PANEL 73749 ALBUMIN/GLOBULIN RATIO 1.8 (calc) 08/14/2019 [facility] [address] [address] COMPREHENSIVE METABOLIC PANEL 67837 BILIRUBIN, TOTAL 1.0 mg/dL 08/14/2019 [facility] [address] [address] COMPREHENSIVE METABOLIC PANEL 58935 ALKALINE PHOSPHATASE 56 U/L 08/14/2019 [facility] [address] [address] COMPREHENSIVE METABOLIC PANEL 58467 AST 18 U/L 08/14/2019 [facility] [address] COMPREHENSIVE METABOLIC PANEL 22346 ALT 28 U/L 08/14/2019 [facility] [address] MAGNESIUM 00481 MAGNESIUM 2.0 mg/dL 06/06/2019 [facility] [address] COMPREHENSIVE METABOLIC PANEL 94823 Glucose 106 mg /dL 06/06/2019 [facility] [address] COMPREHENSIVE METABOLIC PANEL 05000 UREA NITROGEN (BUN) 22 mg/dL 06/06/2019 [facility] [address] [address] COMPREHENSIVE METABOLIC PANEL 32553 CREATININE 1.29 m g/dL 06/06/2019 [facility] [address] COMPREHENSIVE METABOLIC PANEL 82291 eGFR NON-AFR. CUBAN 58 mL/min/1.73m2 06/06/2019 [facility] [address] [address] COMPREHENSIVE METABOLIC PANEL 15353 eGFR 67 mL/min/1.73m2 06/06/2019 [facility] [address] COMPREHENSIVE METABOLIC PANEL 10351 BUN/CREATININE RATIO 17 (calc) 06/06/2019 [facility] [address] COMPREHENSIVE METABOLIC PANEL 52350 SODIUM 138 mm ol/L 06/06/2019 [facility] [address] COMPREHENSIVE METABOLIC PANEL 53043 POTASSIUM 4.2 mm ol/L 06/06/2019 [facility] [address] COMPREHENSIVE METABOLIC PANEL 40971 CHLORIDE 101 mm ol/L 06/06/2019 [facility] [address] COMPREHENSIVE METABOLIC PANEL 52407 CARBON DIOXIDE 29 mmol/L 06/06/2019 [facility] [address] COMPREHENSIVE METABOLIC PANEL 99310 CALCIUM 9.6 mg /dL 06/06/2019 [facility] [address] COMPREHENSIVE METABOLIC PANEL 73205 PROTEIN, TOTAL 6. 9 g/dL 06/06/2019 [facility] [address] COMPREHENSIVE METABOLIC PANEL 24482 ALBUMIN 4.4 g/ dL 06/06/2019 [facility] [address] COMPREHENSIVE METABOLIC PANEL 33641 GLOBULIN 2.5 g/ dL(calc) 06/06/2019 [facility] [address] COMPREHENSIVE METABOLIC PANEL 19152 ALBUMIN/GLOBULIN RATIO 1.8 (calc) 06/06/2019 [facility] [address] COMPREHENSIVE METABOLIC PANEL 71799 BILIRUBIN, TOTAL 0.7 mg/dL 06/06/2019 [facility] [address] COMPREHENSIVE METABOLIC PANEL 43479 ALKALINE PHOSPHATASE 45 U/L 06/06/[address] [address] COMPREHENSIVE METABOLIC PANEL 75040 AST 21 U/L 06/06/2019 [place] [facility]ostics[facility] [address] [address] COMPREHENSIVE METABOLIC PANEL 50949 ALT 34 U/L 06/06/2019 [employer] KaiChiragStallings [address] [address] CULTURE, URINE, ROUTINE 395 CULTURE, URINE, ROUTINE SEE NOTE 04/23/2019 [employer] Seun [address] [address] CULTURE, URINE, ROUTINE 395 CULTURE SEE NOTE 0 04/23/2019 [facility] KaiChiragStall[facility] [address] [address] EXTRA 1014 EXTRA TUBE RECEIVED 04/22 [facility] [address] [address] EXTRA 1014 SPECIMEN TYPE RECEIVED: LAV 0 04/22/2019 [employer] [facility] [address] [address] COMPREHENSIVE METABOLIC PANEL 44346 Glucose 94 mg/ dL 04/22/2019 Zay MorfinStallings [address] [address] COMPREHENSIVE METABOLIC PANEL 59683 UREA NITROGEN (BUN) 20 mg/dL 04/22/2019 [place] [facility] [address] [address] COMPREHENSIVE METABOLIC PANEL 83698 CREATININE 1.30 m g/dL 04/22/2019 [place] [facility] [facility]osticsChiragSt[facility] [address] [address] COMPREHENSIVE METABOLIC PANEL 26453 eGFR NON-AFR. CUBAN 58 mL/min/1.73m2 04/22/2019 [place] [facility]ostics[facility] [address] [address] COMPREHENSIVE METABOLIC PANEL 95124 eGFR 67 mL/min/1.73m2 04/22/2019 [place] [facility] [address] [address] COMPREHENSIVE METABOLIC PANEL 91470 BUN/CREATININE RATIO 15 (calc) 04/22/2019 [place] [facility]ostics[facility] [address] [address] COMPREHENSIVE METABOLIC PANEL 78312 SODIUM 139 mm ol/L 04/22/2019 [facility] [address] [address] COMPREHENSIVE METABOLIC PANEL 50565 POTASSIUM 4.2 mm ol/L 04/22/[address] [facility] [address] COMPREHENSIVE METABOLIC PANEL 02155 CHLORIDE 104 mm ol/L 04/22/2019 [facility] [address] COMPREHENSIVE METABOLIC PANEL 84131 CARBON DIOXIDE 27 mmol/L 04/22/2019 [facility] [address] COMPREHENSIVE METABOLIC PANEL 99259 CALCIUM 9.9 mg /dL 04/22/2019 [facility] [address] COMPREHENSIVE METABOLIC PANEL 14919 PROTEIN, TOTAL 7. 1 g/dL 04/22/2019 [facility] [address] COMPREHENSIVE METABOLIC PANEL 33713 ALBUMIN 4.6 g/ dL 04/22/2019 [facility] [address] COMPREHENSIVE METABOLIC PANEL 65113 GLOBULIN 2.5 g/ dL(calc) 04/22/2019 [facility] [address] COMPREHENSIVE METABOLIC PANEL 89543 ALBUMIN/GLOBULIN RATIO 1.8 (calc) 04/22/2019 [facility] [address] COMPREHENSIVE METABOLIC PANEL 23661 BILIRUBIN, TOTAL 0.4 mg/dL 04/22/2019 [facility] [address] COMPREHENSIVE METABOLIC PANEL 27424 ALKALINE PHOSPHATASE 53 U/L 04/22/[address] [facility] [address] COMPREHENSIVE METABOLIC PANEL 67787 AST 21 U/L 04/22/2019 [facility] [address] COMPREHENSIVE METABOLIC PANEL 65271 ALT 34 U/L 04/22/2019 [facility] [address] CULTURE, URINE, ROUTINE 395 CULTURE, URINE, ROUTINE SEE NOTE 01/31/[address] [address] Procedures Procedure Codes Date CULTURE, AEROBIC BACTERIA CPT-4: 70166 10/27/2019 URINALYSIS NONAUTO W/O SCOPE CPT-4: 26913 10/02/2019 URINE CULTURE/ COLONY COUNT CPT-4: 51360 10/02/2019 ROUTINE VENIPUNCTURE CPT-4: 76684 08/13/2019 URINALYSIS NONAUTO W/O SCOPE CPT-4: 71870 08/13/2019 CULTURE, URINE, ROUTINE CPT-4: 395 08/13/2019 COMPREHENSIVE METABOLIC PANEL CPT-4: 16790 08/13/2019 CBC (H/H, RBC, INDICES, WBC, PLT) CPT-4: 68090 2018 COMPREHENSIVE METABOLIC PANEL CPT-4: 11313 06/05/2019 MAGNESIUM CPT-4: 32586 06/05/2019 DEXAMETHASONE SODIUM PHOS CPT-4: J1100 05/21/2019 THER/PROPH/DIAG INJ SC/IM CPT-4: 03747 05/21/2019 TRIAMCINOLONE ACET INJ NOS CPT-4: J3301 05/21/2019 ROUTINE VENIPUNCTURE CPT-4: 50978 04/21/2019 COMPREHENSIVE METABOLIC PANEL CPT-4: 78671 04/21/2019 EXTRA CPT-4: 1014 04/21/2019 CULTURE, URINE, ROUTINE CPT-4: 395 04/21/2019 URINALYSIS NONAUTO W/O SCOPE CPT-4: 44888 04/21/2019 URINALYSIS NONAUTO W/O SCOPE CPT-4: 96146 01/29/2019 CULTURE, URINE, ROUTINE CPT-4: 395 01/29/2019 DRAIN/INJECT JOINT/BURSA CPT-4: 30384 02/19/2018 TRIAMCINOLONE ACET INJ NOS CPT-4: J3301 02/19/2018 DEXAMETHASONE SODIUM PHOS CPT-4: J1100 02/19/2018 THER/PROPH/DIAG INJ SC/IM CPT-4: 32695 02/12/2018 TRIAMCINOLONE ACET INJ NOS CPT-4: J3301 02/12/2018 DEXAMETHASONE SODIUM PHOS CPT-4: J1100 02/12/2018 CEFTRIAXONE SODIUM INJECTION CPT-4: J0696 12/03/2017 THER/PROPH/DIAG INJ SC/IM CPT-4: 66693 12/03/2017 THER/PROPH/DIAG INJ SC/IM CPT-4: 37426 12/03/2017 METHYLPREDNISOLONE INJECTION CPT-4: J2930 12/03/2017 URINALYSIS NONAUTO W/O SCOPE CPT-4: 36625 08/13/2017 STREP A ASSAY W/OPTIC CPT-4: 17117 02/13/2017 DESTRUCT PREMALG LESION (Cryosurgery) CPT-4: 52115 Vital Signs Date Vital 10/27/2019 Blood Pressure [...] 1: 128/78 Code: 8480-6 BMI: 36.0 Code: 86802-6 Heart Rate 1: 68 bpm Height: 5'7" [...] 1: 138/86 Code: 8480-6 BMI: 35.6 Code: 31191-8 Heart Rate 1: 68 bpm Height: 5'7" SpO2: 95% Temperature: 36.6 (C) / 97.8 (F) Weight: 227 lbs 12/03/2017 Blood Pressure 1: 134/84 Code: 8480-6 BMI: 34.3 Code: 92501-0 Heart Rate 1: 68 bpm Height: 5'7" Respiratory Rate: 20 bpm SpO2: 96% Tempera ture: 35.9 (C) / 96.6 (F) Weight: 219 lbs 09/11/2017 Blood Pressure 1: 140/86 Code: 8480-6 BMI: 34.9 Code: 59701-3 Heart Rate 1: 84 bpm Height: 5'7" Respiratory Rate: 20 bpm SpO2: 95% Tempera ture: 36.7 (C) / 98.1 (F) Weight: 223 lbs 08/13/2017 Blood Pressure 1: 142/94 Code: 8480-6 BMI: 34.5 Code: 30066-9 Heart Rate 1: 76 bpm Height: 5'7" Respiratory Rate: 20 bpm SpO2: 96% Tempera ture: 37.1 (C) / 98.8 (F) Weight: 220 lbs 11/17/2016 Blood Pressure 1: 118/78 Code: 8480-6 He art Rate 1: 64 bpm 07/19/2016 Blood Pressure 1: 112/58 Code: 8480-6 BMI: 31.6 Code: 61477-5 Heart Rate 1: 88 bpm Height: 5'7" Respiratory Rate: 22 bpm SpO2: 98% Tempera ture: 36.3 (C) / 97.4 (F) Weight: 202 lbs 06/09/2016 Blood Pressure 1: 138/84 Code: 8480-6 BMI: 32.1 Code: 41332-9 Heart Rate 1: 58 bpm Height: 5'7" Respiratory Rate: 20 bpm SpO2: 97% Tempera ture: 36.6 (C) / 97.8 (F) Weight: 205 lbs 11/08/2015 Blood Pressure 1: 142/80 Code: 8480-6 BMI: 32.4 Code: 18862-9 Heart Rate 1: 76 bpm Height: 5'7" Respiratory Rate: 20 bpm Temperature: 36 .6 (C) / 97.9 (F) Weight: 207 lbs 06/14/2015 Blood Pressure 1: 126/80 Code: 8480-6 Heart Rate 1: 84 bpm Respiratory Rate: 20 bpm Temperature: 36.8 (C) / 98.2 (F) Weight: 206 lbs 05/18/2015 Blood Pressure 1: 124/80 Code: 8480-6 BMI: 32.3 Code: 75121-1 Heart Rate 1: 68 bpm Height: 5'7" Respiratory Rate: 20 bpm Temperature: 36 .4 (C) / 97.6 (F) Weight: 206 lbs 02/22/2015 Blood Pressure 1: 126/78 Code: 8480-6 BMI: 32.1 Code: 22083-2 Heart Rate 1: 76 bpm Height: 5'7" Respiratory Rate: 20 bpm Temperature: 36 .6 (C) / 97.9 (F) Weight: 205 lbs 12/02/2014 Blood Pressure 1: 124/80 Code: 8480-6 BMI: 32.7 Code: 19772-4 Heart Rate 1: 70 bpm Height: 5'7" Respiratory Rate: 18 bpm Temperature: 36 .6 (C) / 97.9 (F) Weight: 209 lbs 08/18/2014 Blood Pressure 1: 132/94 Code: 8480-6 BMI: 34.5 Code: 80367-2 Heart Rate 1: 84 bpm Height: 5'6" Respiratory Rate: 20 bpm Temperature: 36 .6 (C) / 97.9 (F) Weight: 217 lbs 07/08/2014 Blood Pressure 1: 142/88 Code: 8480-6 BMI: 34.3 Code: 08289-5 Heart Rate 1: 72 bpm Height: 5'6" [...] Visit Encounters Encounter Performer Location Codes Date ([id number]) OFFICE/OUTPATIENT VISIT EST Diagnosis: Disorder of the skin and subcutaneous tissue, unspecified[ICD10: L98.9] Diagnosis: Infected sebaceous cyst[ICD10: L72.3] Diagnosis: Local infection of the skin and subcutaneous tissue, unspecified[ICD10: L08.9] Lashell Heathanne [employer] [employer] CPT-4 : 17342 10/27/2019 ([id number]) OFFICE/OUTPATIENT VISIT EST Diagnosis: Suprapubic abdominal pain[ICD10: R10.2] Diagnosis: Aortic regurgitation[ICD10: I35.1] Sapna Johnston PAULYDOMINIC [employer] CPT-4: 58523 10/02/2019 ([id number]) OFFICE/OUTPATIENT VISIT EST Diagnosis: Chest pain[ICD10: R07.9] Lashell Heathanne GOODSON MANUELITO [employer] CPT-4: 75967 08/25/2019 ([id number]) OFFICE/OUTPATIENT VISIT EST Diagnosis: Thoracic back pain[ICD10: M54.6] Diagnosis: Disorder of kidney and ureter, unspecified[ICD10: N28.9] Diagnosis: Personal history of nicotine dependence[ICD10: Z87.891] 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] Lashell Johnston CANDICE ANGELY [employer] CPT-4: 21600 08/13/2019 ([id number]) OFFICE/OUTPATIENT VISIT EST Diagnosis: Sigmoid diverticulitis[ICD10: K57.32] Diagnosis: Renal insufficiency[ICD10: N28.9] Diagnosis: Jock itch[ICD10: B35.6] Sapna PARDO DO [facility] CPT-4: 60331 07/03/2019 ([id number]) OFFICE/OUTPATIENT VISIT EST Diagnosis: Cramp and spasm[ICD10: R25.2] Diagnosis: Disorder of kidney and ureter, unspecified[ICD10: N28.9] Lashell LIVE DO [facility] CPT-4: 61825 06/05/2019 ([id number]) OFFICE/OUTPATIENT VISIT EST Diagnosis: Other pruritus[ICD10: L29.8] Diagnosis: Pain in right knee[ICD10: M25.561] Lashell LIVE DO [facility] CPT-4: 37012 05/21/2019 ([id number]) NURSE/OUTPATIENT VISIT EST Diagnosis: Edema, unspecified[ICD10: R60.9] Sapna LIVE [facility] CPT-4: 09639 04/21/2019 ([id number]) OFFICE/OUTPATIENT VISIT EST Diagnosis: Diverticulitis of large intestine without perforation or abscess without bleeding[ICD10: K57.32] Diagnosis: Snoring[ICD10: R06.83] Diagnosis: Other constipation[ICD10: K59.09] Lashell LIVE DO [facility] CPT-4: 63956 02/24/2019 ([id number]) OFFICE/OUTPATIENT VISIT EST Diagnosis: Diverticulitis of large intestine without perforation or abscess with bleeding[ICD10: K57.33] Nancy BRUNSONLINE Vickie LIVE [employer] [facility] CPT-4: 46863 02/04/2019 ([id number]) OFFICE/OUTPATIENT VISIT EST Diagnosis: Left lower quadrant pain[ICD10: R10.32] Nancy Mendiola ALYSSA DAIGLEJANE Vickie LIVE DO [facility] CPT-4: 81058 01/29/2019 OFFICE/OUTPATIENT VISIT EST Diagnosis: Dermatitis, unspecified[ICD10: L30.9] Diagnosis: Gastro-esophageal reflux disease without esophagitis[ICD10: K21.9] Diagnosis: Palpitations[ICD10: R00.2] Sapna AU DO [facility] CPT-4: 23448 12/19/2018 ([id number]) OFFICE/OUTPATIENT VISIT EST Diagnosis: Gastro-esophageal reflux disease without esophagitis[ICD10: K21.9] Diagnosis: Dysphagia, pharyngoesophageal phase[ICD10: R13.14] Sapna LIVE DO [facility] CPT-4: 25843 11/11/2018 ([id number]) PREV VISIT EST AGE 40-64 Diagnosis: Encounter [...] of digestive system[ICD10: K91.89] Lashell LIVE DO [facility] CPT-4: 99 396 10/09/2018 ([id number]) OFFICE/OUTPATIENT VISIT EST Diagnosis: Pain in right knee[ICD10: M25.561] Diagnosis: Pain in right hip[ICD10: M25.551] Lashell LIVE DO [facility] CPT-4: 88446 02/12/2018 OFFICE/OUTPATIENT VISIT EST Diagnosis: Essential (primary) hypertension[ICD10: I10] Diagnosis: Other chest pain[ICD10: R07.89] Lashell LIVE DO [facility] CPT-4: 39069 12/03/2017 ([id number]) OFFICE/OUTPATIENT VISIT EST Diagnosis: Essential (primary) hypertension[ICD10: I10] Sapna LVIE DO [facility] CPT-4: 22631 09/11/2017 ([id number]) PREV VISIT EST AGE 40-64 Diagnosis: Encounter for general adult medical examination without abnormal findings[ICD10: Z00.00] Diagnosis: Essential (primary) hypertension[ICD10: I10] Diagnosis: Left lower quadrant pain[ICD10: R10.32] Diagnosis: Left upper quadrant pain[ICD10: R10.12] Diagnosis: Other intervertebral disc degeneration, 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] Sapna LIVE [facility] CPT-4: 04237 08/13/2017 ([id number]) OFFICE/OUTPATIENT VISIT EST Diagnosis: Acute pharyngitis, unspecified[ICD10: J02.9] Sapna LIVE [facility] CPT-4: 76233 02/13/2017 ([id number]) PREV VISIT EST AGE 40-64 Diagnosis: Encounter for general adult medical examination without abnormal findings[ICD10: Z00.00] Diagnosis: Essential (primary) hypertension[ICD10: I10] 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] [facility]: 54909 07/19/2016 OFFICE/OUTPATIENT VISIT EST Diagnosis: Pain in thoracic spine[ICD10: M54.6] Diagnosis: Disorder of the skin and subcutaneous tissue, unspecified[ICD10: L98.9] Sobia Monreal SAPNA [facility] CPT-4: 95099 06/09/2016 OFFICE/OUTPATIENT VISIT EST Diagnosis: Retention of urine, unspecified[ICD10: R33.9] Diagnosis: Urinary tract infection, site not specified[ICD10: N39.0] Chelsie NoriegaAlysiaoscar CappsAmarjit BUZZ [facility] CPT-4: 14496 11/08/2015 ([id number]) OFFICE/OUTPATIENT VISIT EST Diagnosis: DERMATITIS NOS[ICD9: 692.9] Diagnosis: SEBACEOUS CYST[ICD9: 706.2] Sapna BRUNSONLINE JefryAmarjit Claudio DANITZA [facility] CPT-4: 17530 06/14/2015 OFFICE/OUTPATIENT VISIT EST Diagnosis: LOCAL SKIN INFECTION[ICD9: 686.9] Diagnosis: FOLLICULITIS[ICD9: 704.8] Chelsie NoriegaAlysiafélixjusta SAPNA [facility]jit [facility] CPT-4: 36102 05/18/2015 ([id number]) OFFICE/OUTPATIENT VISIT EST Diagnosis: Constipation[ICD9: 564.00] Sapna JOSE CPT-4: 44128 02/22/2015 ([id number]) OFFICE/OUTPATIENT VISIT EST Diagnosis: Thoracic back pain[ICD9: 724.1] Diagnosis: Thoracic degenerative disc disease[ICD9: 722.51] Diagnosis: Scoliosis[ICD9: 737.30] Sapna PARDO DO [facility] CPT-4: 73392 12/02/2014 ([id number]) OFFICE/OUTPATIENT VISIT EST Diagnosis: Thoracic back pain[ICD9: 724.1] Diagnosis: ACTINIC KERATOSIS[ICD9: 702.0] Sapna LIVE DO [facility] CPT-4: 01201 08/18/2014 OFFICE/OUTPATIENT VISIT NEW Diagnosis: HYPERTENSION[ICD9: 401.9] Diagnosis: Thoracic back pain[ICD9: 724.1] Diagnosis: GERD[ICD9: 530.81] Diagnosis: Adrenal tumor[ICD9: 239.7] Sapna AU DO [facility] CPT-4: 42175 07/08/2014 ([id number]) OFFICE/OUTPATIENT VISIT NEW Diagnosis: HYPERTENSION[ICD9: 401.9] Diagnosis: GERD[ICD9: 530.81] Sapna LIVE DO [facility] CPT-4: 92807 07/08/2014 Plan of Care Planned Activity Notes [...] ICD-10 : L08.9 10/27/2019 Appointment: Lashell Joe [address] [place], [place] [address] ACUTE ILLNESS 10/27/2019 Patient Education: tramadol- [employer] [id number] [email or web address] Completed 10/27/2019 Visit Plan: Update Low Dose [...] Sapna Live WPtel: [facility] FOLLOW UP 10/02/2019 Care Plan: Referral Order SNOMED-CT : [id number] Pending 10/02/2019 Visit Diagnosis Plan: Chest pain Discussion: will star t with cxray and rib xray. discussed that could be lung, rib, muscle but will start with cxray and patient may need echo. he verbalized understanding. ICD-9 : 786.50 ICD-10 : R07.9 08/25/2019 Appointment: Lashell Joe [address] [place], [place] [address] ACUTE ILLNESS 08/25/2019 Visit Diagnosis Plan: Thoracic back pain Discussion: c hronic pain. will refer to dr. stallings at [place] for evaluation and treatment ICD-9 : 724.1 [...] ct of lungs to be done at [facility]. ICD-9 : V15.82 ICD-10 : [...] ICD-10 : E27.8 08/13/2019 Appointment: Lashell Joe [address] [employer] [id number] US FOLLOW UP 08/13/2019 Visit Diagnosis Plan: Sigmoid diverticulitis Discussio n: Bactrim/Flagyl [place] diet To ER this weekend if worsening ICD-9 : 562.11 ICD-10 : K57.32 07/03/2019 Visit Diagnosis Plan: Jock itch Discussion: Diflucan a nd topical nystatin ICD-9 : 110.3 ICD-10 : B35.6 07/03/2019 Visit Diagnosis Plan: Renal insufficiency Discussion: Labs discussed Continue off NSAIDS Hydrate Recheck Chemistry 3mos ICD-9 : 593.9 ICD-10 : N28.9 07/03/2019 Appointment: Sapna Live WPtel: [address] [facility] [place] FOLLOW UP 07/03/2019 Patient Education: fluconazole- [employer] [id number] Completed 07/03/2019 Patient Education: nystatin- [employer] [id number] Completed 07/03/2019 Visit Diagnosis Plan: Disorder of [...] : R25.2 06/05/2019 Appointment: Lashell Joe [address] [employer] [id number] US NO SHOW - FORGIVEN 06/05/2019 Appointment: Lashell Joe 504 [facility]6[address] ACUTE ILLNESS 06/05/2019 Visit Diagnosis Plan: Pain [...] ICD-10 : L29.8 05/21/2019 Appointment: Lashell Joe [address] [place] [address] ACUTE ILLNESS 05/21/2019 Patient Education: hydroxyzine HCl- [employer] [id number] [email or web address]/[email or web address]/[email or web address] Completed 05/21/2019 Appointment: Sapna Live WPtel: [address] [place], [place] [phone] 05/19/19 1645---see note put in chart today (km) CANCELED 05/19/2019 Appointment: Sapna Live WPtel: [address] [place], [place] [phone] [place] CANCELED 05/05/2019 Appointment: Sapna Live WPtel: [address] [place], [place] [phone] UA 04/21/2019 Visit Diagnosis Plan: Diverticulitis of [...] ICD-10 : K59.09 02/24/2019 Appointment: Lashell Joe [address] [place] [address] Hospital Follow Up 02/24/2019 Visit Diagnosis Plan: Diverticulitis of large intestine without perforation or abscess with bleeding Discussion: Continue flagyl and cipro. A dvance diet to bland. BRAT diet advised. Avoid nuts, seeds, popcorn, roughage. RTC if abdominal pain worsens or does not improve. ICD-9 : 562.13 ICD-10 : K57.33 02/04/2019 Appointment: Nancy Mendiola [facility] Pham [address] FOLLOW UP 02/04/2019 Visit Diagnosis Plan: [...] ICD-10 : R10.32 01/29/2019 Appointment: Nancy Mendiola [facility] [employer] [id number] [place] ACUTE ILLNESS 01/29/2019 Care Plan: CT [...] : L30.9 12/19/2018 Appointment: Sapna Live WPtel: [address] [place], [place] [phone] ACUTE ILLNESS 12/19/2018 Visit Diagnosis Plan: Gastro-esophageal reflux disease without esophagitis Discussion: Continue protonix at 40mg daily Hold mobic No NSAIDS Hold all MVs If persists then will need EGD ICD-9 : 530.81 ICD-10 : K21.9 11/11/2018 Appointment: Sapna Live WPtel: [facility] FOLLOW UP 11/11/2018 Visit Diagnosis Plan: Encounter for [facility] adult medical examination without abnormal [...] ICD-10 : I10 10/09/2018 Appointment: Lashell Joe 504 [facility] Annual Well Visit 10/09/2018 Patient Education: gabapentin- [employer] [id number] Completed 10/09/2018 Patient Education: Kegel Exercises Comple catalina 10/09/2018 Patient Education: High Blood Pressure Co mpleted 10/09/2018 Visit Diagnosis Plan: Pain in right knee Discussion: c orticosteroid injection administered as described above. patient tolerated well. instructed to rtc in 3- 4 months if needed for additional injection. ICD-9 : 719.46 ICD-10 : M25.561 02/19/2018 Appointment: [facility]hell [facility] [facility] 02/19/2018 Patient Education: Patient Medication [...] ICD-10 : M25.551 02/12/2018 Appointment: Lashell Joe [address] [place] [address] ACUTE ILLNESS 02/12/2018 Patient Education: Patient Medication Summary Completed 02/12/2018 Care Plan: X-RAY EXAM OF KNEE 1 OR 2 [place] : [address]-2 Pending 02/12/2018 Visit Diagnosis Plan: Essential (primary) [...] ICD-10 : R07.89 12/03/2017 Appointment: Lashell Joe [address] [place] [address] ESTABLISHED PATIENT 12/03/2017 Patient Education: Patient Medication Summary Completed 12/03/2017 Visit Diagnosis Plan: Essential (primary) hypertension Discussion: Increase quinapril to 40mg daily BP check in 1month ICD-9 : 401.9 ICD-10 : I10 09/11/2017 Appointment: Sapna Live WPtel: [address] [place], [place] [phone] [place] FOLLOW UP 09/11/2017 Patient Education: Patient Medication Summary Completed 09/11/2017 Appointment: Sapna Live WPtel: [facility] US RESCHEDULED 08/22/2017 Visit Diagnosis Plan: Essential (primary) hypertension Discussion: Increase quinapril to 20mg daily Follow Up: 1 months ICD-9 : 401.9 ICD-10 : I10 08/13/2017 Visit Diagnosis Plan: Encounter for [facility] adult medical examination without abnormal findings Discussion: Update fasting lab ICD-9 : V70.9 ICD-10 : Z00.00 08/13/2017 Visit Diagnosis Plan: Left lower quadrant pain Discuss ion: Update colonoscopy ICD-9 : 789.04 ICD-10 : R10.32 08/13/2017 Appointment: Sapna Live WPtel: [address] [place] [address] Annual Well Visit 08/13/2017 Patient Education: Patient Medication Summary Completed 08/13/2017 Appointment: Sapna Live WPtel: [address] [place] [address] THROAT SWAB 02/13/2017 Patient Education: Patient Medication Summary Completed 02/13/2017 Appointment: Sapna Live WPtel: [address] [place] [address] BP CHECK 11/17/2016 Patient Education: Patient Medication Summary Completed 11/17/2016 Visit Plan: Due for colonoscopy in 2018 Had shingles shot and flu shot Change quinapril hct to plain quinapril and see if muscles twitches improve Fwup with Dr. Braga Lab discussed Discussed diet/exercise at length Check CT abdomen Recheck 3mos 07/19/2016 Appointment: Sapna Live WPtel: [address] [place], [place] [id number] 07/18 confirmed`sl PHYSICAL 07/19/2016 Patient Education: Patient [...] earliest convenience 06/09/2016 Appointment: Sobia Monreal WPtel: [address] [place] [address] ACUTE ILLNESS 06/09/2016 Patient Education: Patient Medication Summary Completed 06/09/2016 Referral: Demario Braga WPtel: [address] [place] [address] Referral Initiated 11/12/2015 Visit Plan: Continue indwelling catheter until follow-up with Dr. Braga Continue Bactrim and Cipro Pyridium TID for Bladder spasms 11/08/2015 Appointment: Chelsie Teixeira WPtel: [address] [place] [address] ER Follow UP 11/08/2015 Patient Education: Patient Medication Summary Completed 11/08/2015 Referral: Abdiel Tucker WPtel: [address] [place] [address] Referral Initiated 06/21/2015 Visit Plan: Prednisone 20mg daily for 1w kiana See surgery of cyst removal 06/14/2015 Appointment: Sapna Live WPtel: [address] [place] [address] 06/11 vm cn 06/14 vm cn FOLLOW UP 2014 Patient Education: Patient Medication Summary Completed 06/14/2015 Visit Plan: Warm moist compresses to Lef t shoulder lesion and apply topical Mupirocin twice daily Complete Cephalexin x 7 days as directed Resume Culturelle daily 05/18/2015 Appointment: Chelsie Teixeira WPtel: [address] [place] [address] ACUTE ILLNESS 05/18/2015 Patient Education: Patient Medication Summary Completed 05/18/2015 Visit Plan: Check fasting lab Use pain m eds prn with miralax on the day that takes pain meds 02/22/2015 Appointment: Sapna Live WPtel: [address] [place] [address] 02/19 vm cn 02/19 appt confirmed-lb ACUTE ILLNESS 5 Patient Education: Patient Medication Summary Completed 02/22/2015 Visit Plan: Increase neurontin to 300mg q HS Continue flexeril and tramadol Call in 1mo on how higher dose of gabapentin 12/02/2014 Appointment: Sapna Live WPtel: [address] [place], [place] [address] FOLLOW UP 12/02/2014 Patient Education: Patient Medication Summary Completed 12/02/2014 Referral: Eric Angelo WPtel: [address] [place] [address] [place] Referral Appointment Confirmed 09/15/2014 Visit Plan: Proceed with pain doctor for possible injection vs nerve block Trial of lidoderm patch Cryotherapy to lesions as above 08/18/2014 Appointment: Sapna Live WPtel: [address] [place], [place] [address] ACUTE ILLNESS 08/18/2014 Patient Education: Patient Medication Summary Completed 08/18/2014 Patient Education: Patient Medication Summary Completed 08/13/2014 Visit Plan: Continue current meds Obtain most recent lab results Check thoracic spine x-rays Needs updated CT scan of adrenal tumor 07/08/2014 Appointment: Sapna Live WPtel: [address] [place], [place] [phone] 07/07 vm NEW PATIENT 07/08/2014 Patient Education: Patient Medication Summary Completed 07/08/2014 Patient Education: Patient Medication Summary Completed 07/08/2014 Referral: Suhail Cardenas WPtel: [id number] [id number] [place] Referral Completed Referral: Toby Bettencourt WPtel: [address] [place] [address] A [id number] [place] Referral Completed Referral: Rosario Monahan WPtel: [phone] [facility] C [place] Referral Appointment Requested [...]
--- OUTSIDE RECORDS SUMMARY | 2020-02-05 07:56 | XMS REPORT | CCD ---
Author Author Jai Live D.O. Organization [facility] Address [address] [place] [address] Phone Care Team Providers Care Binding Printer Name Role Phone Sapna Live D.O., PP Unavailable CCM Unavailable Summary Purpose Interface Exchange Insurance Providers Payer name Policy type / Coverage type Covered libertarian ID Effective Begin Date Effective End Date GPA Commercial Insurance [id number] 2019 Unknown Family history Mother Diagnosis Age At Onset Cancer Unknown Father Diagnosis Age At Onset Congestive heart failure Unknown Coronary Artery Disease(CAD) Unknown Social History Social History Element Codes Description Effective Dates Tobacco history SNOMED CT: 9327201 Former smoker 10/09/2018 Marital status Unknown 07/08/2014 Number of children Unknown 1 07/08/2014 Employment Unknown Currently employed [employer] 07/08/[address]: 438390794 Never drinks alcohol 2013 Has the patient [...] Fill Instructions tramadol 50 mg tablet RxNorm: 997669 1 Tablet(s) Oral t hree times a day as needed for pain along with two tylenol 10/27/2019 10/27/2019 Inactive cyclobenzaprine 10 mg tablet RxNorm: 045397 1 Tablet(s) Oral th ree times a day 10/27/2019 No Stop Date Active Bactrim DS 800 mg-160 mg tablet RxNorm: 836626 1 Tablet(s) Oral two times a day 10/27/2019 11/03/2019 Active tramadol 50 mg tablet RxNorm: 114551 1 Tablet(s) Oral t hree times a day as needed for pain along with two tylenol 10/27/2019 10/26/2019 Inactive Bactrim DS 800 mg-160 mg tablet RxNorm: 952326 1 Tablet(s) Oral two times a day 10/27/2019 10/26/2019 Inactive tramadol 50 mg tablet RxNorm: 252529 1 Tablet(s) Oral t hree times a day as needed for pain along with two tylenol 09/29/2019 10/26/2019 Inactive quinapril 40 mg tablet RxNorm: 882680 1 Tablet(s) Oral QD 09/18/2019 03/15/2020 Active Patient requests 90 days supply tramadol 50 mg tablet RxNorm: 757173 1 Tablet(s) Oral t hree times a day as needed for pain along with two tylenol 08/28/2019 08/28/2019 Inactive tramadol 50 mg tablet RxNorm: 800100 1 Tablet(s) PO TID as needed for pain along with two tylenol 08/25/2019 08/27/2019 Inactive pantoprazole 40 mg tablet,delayed release RxNorm: 175031 1 Tabl et(s) Oral QD 08/13/2019 No Stop Date Active Vitamin D3 1,000 unit capsule RxNorm: 123717 1 Capsule(s) Oral QD 1 10/13/2018 No Stop Date Active tamsulosin 0.4 mg capsule RxNorm: 858690 1 Capsule(s) Oral QPM 07/26 No Stop Date Active Protonix 40 mg tablet,delayed release RxNorm: 149329 TA KE 1 TABLET BY MOUTH TWICE A DAY 08/04/2019 08/12/2019 Inactive Flagyl 500 mg tablet RxNorm: 843501 1 Tablet(s) Oral three time s a day 07/03/2019 07/13/2019 Inactive fluconazole 100 mg tablet RxNorm: 793883 1 Tablet(s) Oral QD 201807/10/2019 Inactive Bactrim DS 800 mg-160 mg tablet RxNorm: 078441 1 Tablet(s) Oral two times a day 07/03/2019 07/13/2019 Inactive nystatin 100,000 unit/gram topical cream RxNorm: 965268 Application Topical two times a day 07/03/2019 08/12/2019 Inactive gabapentin 600 mg tablet RxNorm: 851053 Tablet(s) TAKE 1 TABLET BY MOUTH EVERY NIGHT AT BEDTIME 06/25/2019 08/12/2019 Inactive - First Attempt Ref: [id number] quinapril 40 mg tablet RxNorm: 505963 1 Tablet(s) Oral QD 06/23/2019 09/17/2019 Inactive Patient requests 90 days supply tramadol 50 mg tablet RxNorm: 730573 1 Tablet(s) PO TID as needed for pain along with two tylenol 05/23/2019 08/24/2019 Inactive hydroxyzine HCl 25 mg tablet RxNorm: 852751 1 Tablet(s) PO TID as needed 05/21/2019 08/12/2019 Inactive Elimite 5 % topical cream RxNorm: 291422 1 Application TOP QHS apply head to toe and was off in morning 05/19/2019 07/02/2019 Inactive Protonix 40 mg tablet,delayed release RxNorm: 080927 1 Tablet(s ) PO BID 05/05/2019 08/02/2019 Inactive - First Attempt Ref: [id number] gabapentin 600 mg tablet RxNorm: 848007 Tablet(s) TAKE 1 TABLET BY MOUTH EVERY NIGHT AT BEDTIME 04/25/2019 06/24/2019 Inactive - First Attempt Ref: [id number] tramadol 50 mg tablet RxNorm: 394407 1 Tablet(s) PO TID as needed for pain along with two tylenol 04/21/2019 05/22/2019 Inactive quinapril 40 mg tablet RxNorm: 470377 1 Tablet(s) PO QD 04/01/2019 Inactive Patient requests 90 days supply fenofibrate micronized 134 mg capsule RxNorm: 449101 1 Capsule(s) PO QD Due for updated fasting labs 03/31/2019 08/12/2019 Inactive dicyclomine 10 mg capsule RxNorm: 590090 1 Capsule(s) PO TID as needed 02/24/2019 05/20/2019 Inactive Flagyl 500 mg tablet RxNorm: 169813 1 Tablet(s) PO Q8H 02/24/201908/2019 Inactive ciprofloxacin 500 mg tablet RxNorm: 673887 1 Tablet(s) PO BID 02/2403/09/2019 Inactive Flagyl 500 mg tablet RxNorm: 639165 1 Tablet(s) PO Q6H 01/30/2019 Inactive ciprofloxacin 500 mg tablet RxNorm: 237181 1 Tablet(s) PO BID 01/3001/29/2019 Inactive Flagyl 500 mg tablet RxNorm: 417486 1 Tablet(s) PO Q6H 01/30/201904/2019 Inactive ciprofloxacin 500 mg tablet RxNorm: 041358 1 Tablet(s) PO BID 01/3002/05/2019 Inactive gabapentin 600 mg tablet RxNorm: 093458 TAKE 1 TABLET B Y MOUTH EVERY NIGHT AT BEDTIME 01/27/2019 04/24/2019 Inactive - First Attempt Ref: [id number] tramadol 50 mg tablet RxNorm: 967379 1 Tablet(s) PO TID as needed for pain along with two tylenol 01/08/2019 04/20/2019 Inactive fenofibrate micronized 134 mg capsule RxNorm: 764223 1 Capsule(s) PO QD Due for updated fasting labs 01/02/2019 03/30/2019 Inactive quinapril 40 mg tablet RxNorm: 118823 1 Tablet(s) PO QD 01/01/2019 Inactive Patient requests 90 days supply Protonix 40 mg tablet,delayed release RxNorm: 615815 TA KE 1 TABLET BY MOUTH TWICE A DAY 01/01/2019 03/31/2019 Inactive - First Attempt Ref: [id number] Protonix 40 mg tablet,delayed release RxNorm: 738479 TA KE 1 TABLET BY MOUTH TWICE A DAY 12/25/2018 12/31/2018 Inactive - First Attempt Ref: [id number] gabapentin 600 mg tablet RxNorm: 721224 TAKE 1 TABLET B Y MOUTH EVERY NIGHT AT BEDTIME 12/02/2018 01/26/2019 Inactive - First Attempt Ref: [id number] Protonix 40 mg tablet,delayed release RxNorm: 029430 1 Tablet(s ) PO BID 11/11/2018 12/24/2018 Inactive Protonix 40 mg tablet,delayed release RxNorm: 244170 1 Tablet(s ) PO BID 10/09/2018 11/10/2018 Inactive gabapentin 600 mg tablet RxNorm: 394247 1 Tablet(s) PO QHS 10/09/19 19 12/01/2018 Inactive quinapril 40 mg tablet RxNorm: 655800 1 Tablet(s) PO QD 1 TABLE T(S) PO QD 08/08/2018 08/07/2018 Inactive Patient requests 9 0 days supply quinapril 40 mg tablet RxNorm: 793202 1 Tablet(s) PO QD 08/08/2018 Inactive Patient requests 90 days supply meloxicam 15 mg tablet RxNorm: 810975 1 Tablet(s) PO QD 08/08/2018 Inactive gabapentin 300 mg capsule RxNorm: 996710 1 CAPSULE(S) P O QHS DUE FOR WELLNESS VISIT 08/07/2018 10/08/2018 Inactive due for followup meloxicam 15 mg tablet RxNorm: 503190 Tablet(s) 1 TABLET(S) PO QD 1 10/07/2017 08/07/2018 Inactive fenofibrate micronized 134 mg capsule RxNorm: 370072 1 Capsule(s) PO QD Needs updated fasting labs!!!!!! 07/08/2018 07/07/2018 Inactive fenofibrate micronized 134 mg capsule RxNorm: 424371 1 Capsule( s) PO QD 07/08/2018 01/01/2019 Inactive fenofibrate micronized 134 mg capsule RxNorm: 328548 1 Capsule(s) PO QD Needs updated fasting labs!!!!!! 06/21/2018 07/08/2018 Inactive Medrol (Daniel) 4 mg tablets in a dose pack RxNorm: 522606 Tablet(s) PO As Directed 05/06/2018 05/05/2018 Inactive Medrol (Daniel) 4 mg tablets in a dose pack RxNorm: 371824 Tablet(s) PO As Directed 05/06/2018 08/07/2018 Inactive quinapril 40 mg tablet RxNorm: 230036 1 TABLET(S) PO QD 05/02/2018 Inactive Patient requests 90 days supply fenofibrate micronized 134 mg capsule RxNorm: 211323 1 Capsule(s) PO QD Needs updated fasting labs 04/29/2018 05/28/2018 Inactive Move Free Joint Health 750 mg-100 mg-1.65 mg-108 mg tablet R xNorm: 1 Tablet(s) PO QD 02/12/2018 03/13/2018 Inactive fenofibrate micronized 134 mg capsule RxNorm: 666942 Ca psule(s) 1 CAPSULE(S) PO QD 01/29/2018 06/21/2018 Inactive quinapril 40 mg tablet RxNorm: 234356 1 TABLET(S) PO QD 11/26/2017 Inactive Patient requests 90 days supply fenofibrate micronized 134 mg capsule RxNorm: 805795 1 CAPSULE( S) PO QD 11/06/2017 01/29/2018 Inactive gabapentin 300 mg capsule RxNorm: 809149 1 CAPSULE(S) P O QHS DUE FOR WELLNESS VISIT 10/24/2017 07/20/2018 Inactive due for followup meloxicam 15 mg tablet RxNorm: 537638 1 TABLET(S) PO QD 10/24/2017 Inactive quinapril 40 mg tablet RxNorm: 448055 1 Tablet(s) PO QD 10/24/2017 Inactive fenofibrate micronized 134 mg capsule RxNorm: 259821 1 Capsule( s) PO QD 08/22/2017 11/05/2017 Inactive fenofibrate micronized 134 mg capsule RxNorm: 904789 1 Capsule( s) PO QD 08/22/2017 08/21/2017 Inactive quinapril 20 mg tablet RxNorm: 912435 1 Tablet(s) PO QD 08/13/2017 Inactive gabapentin 300 mg capsule RxNorm: 624424 1 Capsule(s) P O QHS Due for wellness visit 08/06/2017 10/23/2017 Inactive due for followup gabapentin 300 mg capsule RxNorm: 439478 1 Capsule(s) P O QHS Due for wellness visit 08/02/2017 08/05/2017 Inactive due for followup meloxicam 15 mg tablet RxNorm: 138345 1 Tablet(s) PO QD 08/01/2017 Inactive gabapentin 300 mg capsule RxNorm: 223275 1 Capsule(s) P O QHS Due for wellness visit 08/01/2017 08/01/2017 Inactive due for followup gabapentin 300 mg capsule RxNorm: 837220 1 Capsule(s) P O QHS Due for wellness visit 08/01/2017 08/02/2017 Inactive gabapentin 300 mg capsule RxNorm: 265790 1 Capsule(s) PO QHS 201605/12/2017 Inactive quinapril 10 mg tablet RxNorm: 076190 1 Tablet(s) PO QD replace s quinapril hct 02/12/2017 08/12/2017 Inactive meloxicam 15 mg tablet RxNorm: 515752 1 Tablet(s) PO QD 02/05/2017 Inactive quinapril 10 mg tablet RxNorm: 863506 1 Tablet(s) PO QD replace s quinapril hct 11/16/2016 02/12/2017 Inactive gabapentin 300 mg capsule RxNorm: 370555 1 Capsule(s) PO QHS 201602/12/2017 Inactive quinapril 10 mg tablet RxNorm: 153050 1 Tablet(s) PO QD replace s quinapril hct 10/16/2016 11/15/2016 Inactive gabapentin 300 mg capsule RxNorm: 232201 1 Capsule(s) PO QHS 201511/15/2016 Inactive quinapril 10 mg tablet RxNorm: 939931 1 Tablet(s) PO QD replace s quinapril hct 07/19/2016 10/15/2016 Inactive meloxicam 15 mg tablet RxNorm: 668223 1 Tablet(s) PO QD 07/10/2016 Inactive meloxicam 15 mg tablet RxNorm: 928261 TAKE ONE TABLET BY MOUTH LUKE Y 07/10/2016 07/09/2016 Inactive meloxicam 15 mg tablet RxNorm: 294386 1 Tablet(s) PO QD 07/06/2016 Inactive meloxicam 15 mg tablet RxNorm: 367662 1 Tablet(s) PO QD 06/09/2016 Inactive Multivitamin & Mineral Formula tablet RxNorm: 1 Tablet(s) PO Q D 06/02/2016 07/01/2016 Inactive tamsulosin 0.4 mg capsule RxNorm: 886186 1 Capsule(s) PO QHS 201507/01/2016 Inactive Move Free Joint Health 750 mg-100 mg-1.65 mg-108 mg tablet R xNorm: 1 Tablet(s) PO QD 06/02/2016 07/01/2016 Inactive gabapentin 300 mg capsule RxNorm: 174982 1 Capsule(s) PO QHS 201508/27/2016 Inactive gabapentin 300 mg capsule RxNorm: 129377 Capsule(s) ALFONZO E ONE CAPSULE BY MOUTH AT BEDTIME 02/28/2016 05/27/2016 Inactive quinapril 10 mg-hydrochlorothiazide 12.5 mg tablet RxNorm: 3 51217 Tablet(s) TAKE ONE TABLET BY MOUTH EVERY MORNING 01/14/2016 07/18/2016 Inactive gabapentin 300 mg capsule RxNorm: 903113 TAKE ONE CAPSULE BY [facility] AT BEDTIME 12/28/2015 02/27/2016 Inactive Urecholine 25 mg tablet RxNorm: 538920 1 Tablet(s) PO TID 11/09/2015 07/18/2016 Inactive phenazopyridine 100 mg tablet RxNorm: 7742838 1 Tablet(s ) PO TID as needed for bladder spasms. 11/08/2015 11/08/2015 Inactive quinapril 10 mg-hydrochlorothiazide 12.5 mg tablet RxNorm: 3 75048 TAKE ONE TABLET BY MOUTH EVERY MORNING 10/15/2015 01/13/2016 Inactive gabapentin 300 mg capsule RxNorm: 760215 1 Tablet(s) PO QD TAKE ONE CAPSULE BY MOUTH EVERY NIGHT AT BEDTIME 09/23/2015 12/21/2015 Inactive quinapril 10 mg-hydrochlorothiazide 12.5 mg tablet RxNorm: 3 85562 Tablet(s) TAKE ONE TABLET BY MOUTH EVERY MORNING 07/14/2015 10/14/2015 Inactive gabapentin 300 mg capsule RxNorm: 430377 1 Tablet(s) PO QD TAKE ONE CAPSULE BY MOUTH EVERY NIGHT AT BEDTIME 06/25/2015 09/23/2015 Inactive prednisone 20 mg tablet RxNorm: 979959 1 Tablet(s) PO QD 06/14/2015 0 06/20/2015 Inactive cephalexin 500 mg capsule RxNorm: 747574 1 Capsule(s) PO BID 201405/27/2015 Inactive mupirocin 2 % topical ointment RxNorm: 735940 TOP BID 05/18/2015 0 06/13/2015 Inactive quinapril 10 mg-hydrochlorothiazide 12.5 mg tablet RxNorm: 3 51126 Tablet(s) TAKE ONE TABLET BY MOUTH EVERY MORNING 04/06/2015 07/14/2015 Inactive gabapentin 300 mg capsule RxNorm: 640243 1 Capsule(s) PO QHS 201404/01/2015 Inactive [SAVINGS FOR NON-COVERED LILIANA GS -- BIN:152432, PCN: ASPROD1, Group: XXXXX, ID# [id number], Questions: . THIS IS NOT INSURANCE.] gabapentin 300 mg capsule RxNorm: 560999 1 Capsule(s) PO QHS 201406/25/2015 Inactive [SAVINGS FOR NON-COVERED LILIANA GS -- BIN:860397, PCN: ASPROD1, Group: XXXXX, ID# [id number], Questions: . THIS IS NOT INSURANCE.] quinapril 10 mg-hydrochlorothiazide 12.5 mg tablet RxNorm: 3 25282 TAKE ONE TABLET BY MOUTH EVERY MORNING 12/11/2014 04/05/2015 Inactive gabapentin 300 mg capsule RxNorm: 095817 1 Capsule(s) PO QHS 201404/02/2015 Inactive [SAVINGS FOR NON-COVERED LILIANA GS -- BIN:674732, PCN: ASPROD1, Group: XXXXX, ID# [id number], Questions: . THIS IS NOT INSURANCE.] cyclobenzaprine 10 mg tablet RxNorm: 444404 1 Tablet(s) PO TID as needed for muscle spasm for muscle spasm 12/02/2014 02/21/2015 Inactive [S AVINGS FOR NON- COVERED DRUGS -- BIN:403371, PCN: ASPROD1, Group: XXXXX, ID# [id number], Questions: . THIS IS NOT INSURANCE.] gabapentin 100 mg capsule RxNorm: 787890 1 Capsule(s) PO QHS 201412/01/2014 Inactive [SAVINGS FOR NON-COVERED LILIANA GS -- BIN:678158, PCN: ASPROD1, Group: XXXXX, ID# [id number], Questions: . THIS IS NOT INSURANCE.] ibuprofen 800 mg tablet RxNorm: 952167 1 Tablet(s) PO T ID as needed low back pain 11/11/2014 11/23/2014 Inactive [SAVINGS FOR NON -COVERED DRUGS -- BIN:890679, PCN: ASPROD1, Group: XXXXX, ID# [id number], Questions: . THIS IS NOT INSURANCE.] ibuprofen 800 mg tablet RxNorm: 923902 1 Tablet(s) PO T ID as needed low back pain 11/09/2014 11/10/2014 Inactive [SAVINGS FOR NON -COVERED DRUGS -- BIN:526886, PCN: ASPROD1, Group: XXXXX, ID# [id number], Questions: . THIS IS NOT INSURANCE.] Zorvolex 35 mg capsule RxNorm: 9907576 1 Tablet(s) PO TID 08/27/2014 10/01/2014 Inactive [SAVINGS FOR UNINSURED PATIENTS -- BIN:0 31428, PCN: ASPROD1, Group: AME08, ID# [id number], Process claim through [employer], for questions: . THIS IS NOT INSURANCE.] quinapril 10 mg-hydrochlorothiazide 12.5 mg tablet RxNorm: 3 96866 1 Tablet(s) PO QAM 08/27/2014 11/24/2014 Inactive Lidoderm 5 % (700 mg/patch) adhesive patch RxNorm: 6057494 Application TOP for 12hours then off for pain 08/18/2014 02/21/2015 Inactive [SAVIN GS FOR UNINSURED PATIENTS -- BIN:481220, PCN: ASPROD1, Group: AME08, ID# [id number], Process claim through [employer], for questions: . THIS IS NOT INSURANCE.] Zorvolex 35 mg capsule RxNorm: 0360132 1 Tablet(s) PO TID 08/13/2014 08/12/2014 Inactive Zorvolex 35 mg capsule RxNorm: 1609554 1 Tablet(s) PO TID 08/13/2014 08/24/2014 Inactive [SAVINGS FOR UNINSURED PATIENTS -- BIN:0 25843, PCN: ASPROD1, Group: AME08, ID# [id number], Process claim through [employer], for questions: . THIS IS NOT INSURANCE.] Aspirin Child 81 mg chewable tablet RxNorm: 272047 1 Tablet(s) PO QD No Start Date Active ibuprofen 800 mg tablet RxNorm: 331353 1 Tablet(s) PO T ID as needed low back pain No Start Date 11/08/2014 Inactive cyclobenzaprine 10 mg tablet RxNorm: 528805 1 Tablet(s) PO TID No S tart Date 08/12/2017 Inactive garlic 1,000 mg capsule RxNorm: 053674 1 Capsule(s) PO QD No Start Date 04/22/2019 Inactive tramadol 50 mg tablet RxNorm: 764982 1 Tablet(s) PO Q4-6H as ne eded for pain No Start Date 02/21/2015 Inactive tramadol 50 mg tablet RxNorm: 492743 1 Tablet(s) PO TID as needed for pain along with two tylenol No Start Date 01/07/2019 Inactive krill oil oral RxNorm: 19400 oral No Start Date 11/11/2018 Inacti ve Vitamin D3 2,000 unit tablet RxNorm: 229118 1 Tablet(s) PO QD No St art Date 08/12/2019 Inactive gabapentin 100 mg tablet RxNorm: 069241 1 Tablet(s) PO QD No Start Date 11/10/2014 Inactive Zofran 4 mg tablet RxNorm: 249823 1 Tablet(s) PO Q6H as needed No S tart Date 08/12/2019 Inactive Elimite 5 % topical cream RxNorm: 190754 1 Application TOP QHS apply head to toe and was off in morning No Start Date 05/18/2019 Inactive gabapentin 100 mg capsule RxNorm: 642243 1 Capsule(s) PO QHS No Sta rt Date 11/10/2014 Inactive aspirin 325 mg tablet RxNorm: 158998 2 Tablet(s) PO QD No Start Date 08/17/2014 Inactive Fish Oil 1,000 mg capsule RxNorm: 1 Capsule(s) PO QD No Start Date 10/08/2018 Inactive quinapril 10 mg-hydrochlorothiazide 12.5 mg tablet RxNorm: 3 50026 1 Tablet(s) PO QAM No Start Date 08/26/2014 Inactive quinapril 40 mg tablet RxNorm: 737139 1 Tablet(s) PO QD No Start Da te 10/23/2017 Inactive Medrol (Daniel) 4 mg tablets in a dose pack RxNorm: 106568 Tablet(s) PO As Directed No Start Date 05/05/2018 Inactive Urecholine 25 mg tablet RxNorm: 672952 1 Tablet(s) PO TID No Start Date 11/08/2015 Inactive cyclobenzaprine 10 mg tablet RxNorm: 647563 1/2-1 Table t(s) PO TID as needed for muscle spasm No Start Date 12/01/2014 Inactive tamsulosin 0.4 mg capsule RxNorm: 497670 2 Capsule(s) PO QPM No Sta rt Date 08/12/2019 Inactive hydrocodone 5 mg-acetaminophen 325 mg tablet RxNorm: 293985 1 -2 Tablet(s) PO Q6H as needed No Start Date 05/20/2019 Inactive loratadine 10 mg tablet RxNorm: 975011 1 Tablet(s) PO QD No Start D ate 07/07/2014 Inactive Medication Administered No Medication Administered data Immunizations Vaccine Codes Date Status Influenza CVX: 141 07/21/2019 Results Observation Observation Code Item Item Code Result Date S ervice Location CULTURE, URINE, ROUTINE 395 CULTURE SEE NOTE 1 10/15/[address] [address] CULTURE, URINE, ROUTINE 395 CULTURE, URINE, ROUTINE SEE NOTE 08/15/[address] [address] CBC (H/H, RBC, INDICES, WBC, PLT) 79243 WHITE BLOOD CELL COU NT 7.9 Thousand/uL 08/14/[address] [address] CBC (H/H, RBC, INDICES, WBC, PLT) 90856 RED BLOOD CELL COUNT 4.93 Million/uL 08/14/[address] [address] CBC (H/H, RBC, INDICES, WBC, PLT) 24970 HEMOGLOBIN 15 .4 g/dL 08/14/[address] [address] CBC (H/H, RBC, INDICES, WBC, PLT) 27917 HEMATOCRIT 45 .0 % 08/14/[address] [address] CBC (H/H, RBC, INDICES, WBC, PLT) 92154 MCV 91 .3 fL 08/14/[address] [address] CBC (H/H, RBC, INDICES, WBC, PLT) 33232 MCH 31 .2 pg 08/14/[address] [address] CBC (H/H, RBC, INDICES, WBC, PLT) 29111 MCHC 34 .2 g/dL 08/14/[address] [address] CBC (H/H, RBC, INDICES, WBC, PLT) 67990 RDW 12 .7 % 08/14/2019 [facility] [address] [address] [address] CBC (H/H, RBC, INDICES, WBC, PLT) 34564 PLATELET COUNT 214 Thousand/uL 08/14/2019 [facility] [address] [address] CBC (H/H, RBC, INDICES, WBC, PLT) 45048 MPV 11 .5 fL 08/14/2019 [facility] [address] [place] [address] COMPREHENSIVE METABOLIC PANEL 42810 Glucose 113 mg /dL 08/14/2019 [facility] [address] [address] COMPREHENSIVE METABOLIC PANEL 18965 UREA NITROGEN (BUN) 16 mg/dL 08/14/2019 [facility] [address] [address] COMPREHENSIVE METABOLIC PANEL 06234 CREATININE 0.86 m g/dL 08/14/2019 [facility] [address] [address] COMPREHENSIVE METABOLIC PANEL 05294 eGFR NON-AFR. SWEDISH 92 mL/min/1.73m2 08/14/2019 [facility] [address] [address] COMPREHENSIVE METABOLIC PANEL 05084 eGFR 106 mL/min/1.73m2 08/14/2019 [facility] [address] [address] COMPREHENSIVE METABOLIC PANEL 62011 BUN/CREATININE RATIO NOT APPLICABLE (calc) 08/14/2019 [facility] [address] [place] [address] COMPREHENSIVE METABOLIC PANEL 64285 SODIUM 141 mm ol/L 08/14/2019 [facility] [address] [place] [address] COMPREHENSIVE METABOLIC PANEL 05630 POTASSIUM 4.1 mm ol/L 08/14/2019 [facility] [address] [place] [address] COMPREHENSIVE METABOLIC PANEL 76527 CHLORIDE 102 mm ol/L 08/14/2019 [facility] [address] [address] COMPREHENSIVE METABOLIC PANEL 46129 CARBON DIOXIDE 28 mmol/L 08/14/2019 [facility] [address] [address] COMPREHENSIVE METABOLIC PANEL 83952 CALCIUM 9.7 mg /dL 08/14/2019 [facility] [address] [address] COMPREHENSIVE METABOLIC PANEL 98858 PROTEIN, TOTAL 6. 7 g/dL 08/14/[address] [facility] [address] COMPREHENSIVE METABOLIC PANEL 15411 ALBUMIN 4.3 g/ dL 08/14/2019 [facility] [address] [address] COMPREHENSIVE METABOLIC PANEL 87083 GLOBULIN 2.4 g/ dL(calc) 08/14/2019 [facility] [address] [address] COMPREHENSIVE METABOLIC PANEL 53153 ALBUMIN/GLOBULIN RATIO 1.8 (calc) 08/14/2019 [facility] [address] [address] COMPREHENSIVE METABOLIC PANEL 04442 BILIRUBIN, TOTAL 1.0 mg/dL 08/14/2019 [facility] [address] [address] COMPREHENSIVE METABOLIC PANEL 54422 ALKALINE PHOSPHATASE 56 U/L 08/14/2019 [facility] [address] [address] COMPREHENSIVE METABOLIC PANEL 04520 AST 18 U/L 08/14/2019 [facility] [address] COMPREHENSIVE METABOLIC PANEL 37769 ALT 28 U/L 08/14/2019 [facility] [address] MAGNESIUM 80125 MAGNESIUM 2.0 mg/dL 06/06/2019 [facility] [address] COMPREHENSIVE METABOLIC PANEL 21662 Glucose 106 mg /dL 06/06/2019 [facility] [address] COMPREHENSIVE METABOLIC PANEL 15717 UREA NITROGEN (BUN) 22 mg/dL 06/06/2019 [facility] [address] [address] COMPREHENSIVE METABOLIC PANEL 99804 CREATININE 1.29 m g/dL 06/06/2019 [facility] [address] COMPREHENSIVE METABOLIC PANEL 94673 eGFR NON-AFR. SWEDISH 58 mL/min/1.73m2 06/06/2019 [facility] [address] [address] COMPREHENSIVE METABOLIC PANEL 66658 eGFR 67 mL/min/1.73m2 06/06/2019 [facility] [address] COMPREHENSIVE METABOLIC PANEL 20696 BUN/CREATININE RATIO 17 (calc) 06/06/2019 [facility] [address] COMPREHENSIVE METABOLIC PANEL 56393 SODIUM 138 mm ol/L 06/06/2019 [facility] [address] COMPREHENSIVE METABOLIC PANEL 90366 POTASSIUM 4.2 mm ol/L 06/06/2019 [facility] [address] COMPREHENSIVE METABOLIC PANEL 64013 CHLORIDE 101 mm ol/L 06/06/2019 [facility] [address] COMPREHENSIVE METABOLIC PANEL 12782 CARBON DIOXIDE 29 mmol/L 06/06/2019 [facility] [address] COMPREHENSIVE METABOLIC PANEL 89094 CALCIUM 9.6 mg /dL 06/06/2019 [facility] [address] COMPREHENSIVE METABOLIC PANEL 17336 PROTEIN, TOTAL 6. 9 g/dL 06/06/2019 [facility] [address] COMPREHENSIVE METABOLIC PANEL 66537 ALBUMIN 4.4 g/ dL 06/06/2019 [facility] [address] COMPREHENSIVE METABOLIC PANEL 87911 GLOBULIN 2.5 g/ dL(calc) 06/06/2019 [facility] [address] COMPREHENSIVE METABOLIC PANEL 01784 ALBUMIN/GLOBULIN RATIO 1.8 (calc) 06/06/2019 [facility] [address] COMPREHENSIVE METABOLIC PANEL 86915 BILIRUBIN, TOTAL 0.7 mg/dL 06/06/2019 [facility] [address] COMPREHENSIVE METABOLIC PANEL 08724 ALKALINE PHOSPHATASE 45 U/L 06/06/[address] [address] COMPREHENSIVE METABOLIC PANEL 28078 AST 21 U/L 06/06/2019 [facility] DiagnosticsChiragStallings [address] [address] COMPREHENSIVE METABOLIC PANEL 09516 ALT 34 U/L 06/06/2019 [facility] KaiChiragStallings [address] [address] CULTURE, URINE, ROUTINE 395 CULTURE, URINE, ROUTINE SEE NOTE 04/23/2019 [facility] Seun [address] [address] CULTURE, URINE, ROUTINE 395 CULTURE SEE NOTE 0 04/23/2019 [facility] KaiChiragStallings [address] [address] EXTRA 1014 EXTRA TUBE RECEIVED 04/22 [facility] [address] [address] EXTRA 1014 SPECIMEN TYPE RECEIVED: LAV 0 04/22/2019 [facility] [address] [address] COMPREHENSIVE METABOLIC PANEL 16842 Glucose 94 mg/ dL 04/22/2019 Z[facility] MorfinStallings [address] [address] COMPREHENSIVE METABOLIC PANEL 84865 UREA NITROGEN (BUN) 20 mg/dL 04/22/2019 [place] [facility] Center[facility] [address] [address] COMPREHENSIVE METABOLIC PANEL 12343 CREATININE 1.30 m g/dL 04/22/2019 [facility]osticsCh[facility] [address] [address] COMPREHENSIVE METABOLIC PANEL 99178 eGFR NON-AFR. [place] 58 mL/min/1.73m2 04/22/2019 [facility]ostics[facility] [address] [address] COMPREHENSIVE METABOLIC PANEL 62737 eGFR 67 mL/min/1.73m2 04/22/2019 [place] [facility] Center[facility] [address] [address] COMPREHENSIVE METABOLIC PANEL 25464 BUN/CREATININE RATIO 15 (calc) 04/22/2019 [facility]ostics[facility] [address] [address] COMPREHENSIVE METABOLIC PANEL 51993 SODIUM 139 mm ol/L 04/22/2019 [facility] [address] [address] COMPREHENSIVE METABOLIC PANEL 31625 POTASSIUM 4.2 mm ol/L 04/22/2019 [facility] [address] COMPREHENSIVE METABOLIC PANEL 46247 CHLORIDE 104 mm ol/L 04/22/2019 [facility] [address] COMPREHENSIVE METABOLIC PANEL 81759 CARBON DIOXIDE 27 mmol/L 04/22/2019 [facility] [address] COMPREHENSIVE METABOLIC PANEL 39360 CALCIUM 9.9 mg /dL 04/22/2019 [facility] [address] COMPREHENSIVE METABOLIC PANEL 23271 PROTEIN, TOTAL 7. 1 g/dL 04/22/2019 [facility] [address] COMPREHENSIVE METABOLIC PANEL 38223 ALBUMIN 4.6 g/ dL 04/22/2019 [facility] [address] COMPREHENSIVE METABOLIC PANEL 42844 GLOBULIN 2.5 g/ dL(calc) 04/22/2019 [facility] Dagne [place] [address] COMPREHENSIVE METABOLIC PANEL 09205 ALBUMIN/GLOBULIN RATIO 1.8 (calc) 04/22/2019 [facility] [address] COMPREHENSIVE METABOLIC PANEL 61602 BILIRUBIN, TOTAL 0.4 mg/dL 04/22/2019 [facility] [address] COMPREHENSIVE METABOLIC PANEL 42734 ALKALINE PHOSPHATASE 53 U/L 04/22/2019 [facility] [employer] [address] COMPREHENSIVE METABOLIC PANEL 56143 AST 21 U/L 04/22/2019 [facility] [address] COMPREHENSIVE METABOLIC PANEL 96240 ALT 34 U/L 04/22/2019 [facility] [address] CULTURE, URINE, ROUTINE 395 CULTURE, URINE, ROUTINE SEE NOTE 01/31/[address] [address] Procedures Procedure Codes Date CULTURE, AEROBIC BACTERIA CPT-4: 10280 10/27/2019 URINALYSIS NONAUTO W/O SCOPE CPT-4: 08062 10/02/2019 URINE CULTURE/ COLONY COUNT CPT-4: 65107 10/02/2019 ROUTINE VENIPUNCTURE CPT-4: 10903 08/13/2019 URINALYSIS NONAUTO W/O SCOPE CPT-4: 42762 08/13/2019 CULTURE, URINE, ROUTINE CPT-4: 395 08/13/2019 COMPREHENSIVE METABOLIC PANEL CPT-4: 38889 08/13/2019 CBC (H/H, RBC, INDICES, WBC, PLT) CPT-4: 17179 2018 COMPREHENSIVE METABOLIC PANEL CPT-4: 29994 06/05/2019 MAGNESIUM CPT-4: 47932 06/05/2019 DEXAMETHASONE SODIUM PHOS CPT-4: J1100 05/21/2019 THER/PROPH/DIAG INJ SC/IM CPT-4: 69216 05/21/2019 TRIAMCINOLONE ACET INJ NOS CPT-4: J3301 05/21/2019 ROUTINE VENIPUNCTURE CPT-4: 21768 04/21/2019 COMPREHENSIVE METABOLIC PANEL CPT-4: 34390 04/21/2019 EXTRA CPT-4: 1014 04/21/2019 CULTURE, URINE, ROUTINE CPT-4: 395 04/21/2019 URINALYSIS NONAUTO W/O SCOPE CPT-4: 08251 04/21/2019 URINALYSIS NONAUTO W/O SCOPE CPT-4: 65473 01/29/2019 CULTURE, URINE, ROUTINE CPT-4: 395 01/29/2019 DRAIN/INJECT JOINT/BURSA CPT-4: 47403 02/19/2018 TRIAMCINOLONE ACET INJ NOS CPT-4: J3301 02/19/2018 DEXAMETHASONE SODIUM PHOS CPT-4: J1100 02/19/2018 THER/PROPH/DIAG INJ SC/IM CPT-4: 85052 02/12/2018 TRIAMCINOLONE ACET INJ NOS CPT-4: J3301 02/12/2018 DEXAMETHASONE SODIUM PHOS CPT-4: J1100 02/12/2018 CEFTRIAXONE SODIUM INJECTION CPT-4: J0696 12/03/2017 THER/PROPH/DIAG INJ SC/IM CPT-4: 79796 12/03/2017 THER/PROPH/DIAG INJ SC/IM CPT-4: 39616 12/03/2017 METHYLPREDNISOLONE INJECTION CPT-4: J2930 12/03/2017 URINALYSIS NONAUTO W/O SCOPE CPT-4: 22573 08/13/2017 STREP A ASSAY W/OPTIC CPT-4: 63341 02/13/2017 DESTRUCT PREMALG LESION (Cryosurgery) CPT-4: 03964 Vital Signs Date Vital 10/27/2019 Blood Pressure [...] 1: 128/78 Code: 8480-6 BMI: 36.0 Code: 26058-9 Heart Rate 1: 68 bpm Height: 5'7" [...] 1: 138/86 Code: 8480-6 BMI: 35.6 Code: 33991-2 Heart Rate 1: 68 bpm Height: 5'7" SpO2: 95% Temperature: 36.6 (C) / 97.8 (F) Weight: 227 lbs 12/03/2017 Blood Pressure 1: 134/84 Code: 8480-6 BMI: 34.3 Code: 75212-8 Heart Rate 1: 68 bpm Height: 5'7" Respiratory Rate: 20 bpm SpO2: 96% Tempera ture: 35.9 (C) / 96.6 (F) Weight: 219 lbs 09/11/2017 Blood Pressure 1: 140/86 Code: 8480-6 BMI: 34.9 Code: 38313-4 Heart Rate 1: 84 bpm Height: 5'7" Respiratory Rate: 20 bpm SpO2: 95% Tempera ture: 36.7 (C) / 98.1 (F) Weight: 223 lbs 08/13/2017 Blood Pressure 1: 142/94 Code: 8480-6 BMI: 34.5 Code: 31970-7 Heart Rate 1: 76 bpm Height: 5'7" Respiratory Rate: 20 bpm SpO2: 96% Tempera ture: 37.1 (C) / 98.8 (F) Weight: 220 lbs 11/17/2016 Blood Pressure 1: 118/78 Code: 8480-6 He art Rate 1: 64 bpm 07/19/2016 Blood Pressure 1: 112/58 Code: 8480-6 BMI: 31.6 Code: 76509-2 Heart Rate 1: 88 bpm Height: 5'7" Respiratory Rate: 22 bpm SpO2: 98% Tempera ture: 36.3 (C) / 97.4 (F) Weight: 202 lbs 06/09/2016 Blood Pressure 1: 138/84 Code: 8480-6 BMI: 32.1 Code: 05569-0 Heart Rate 1: 58 bpm Height: 5'7" Respiratory Rate: 20 bpm SpO2: 97% Tempera ture: 36.6 (C) / 97.8 (F) Weight: 205 lbs 11/08/2015 Blood Pressure 1: 142/80 Code: 8480-6 BMI: 32.4 Code: 17096-0 Heart Rate 1: 76 bpm Height: 5'7" Respiratory Rate: 20 bpm Temperature: 36 .6 (C) / 97.9 (F) Weight: 207 lbs 06/14/2015 Blood Pressure 1: 126/80 Code: 8480-6 Heart Rate 1: 84 bpm Respiratory Rate: 20 bpm Temperature: 36.8 (C) / 98.2 (F) Weight: 206 lbs 05/18/2015 Blood Pressure 1: 124/80 Code: 8480-6 BMI: 32.3 Code: 83324-5 Heart Rate 1: 68 bpm Height: 5'7" Respiratory Rate: 20 bpm Temperature: 36 .4 (C) / 97.6 (F) Weight: 206 lbs 02/22/2015 Blood Pressure 1: 126/78 Code: 8480-6 BMI: 32.1 Code: 09477-5 Heart Rate 1: 76 bpm Height: 5'7" Respiratory Rate: 20 bpm Temperature: 36 .6 (C) / 97.9 (F) Weight: 205 lbs 12/02/2014 Blood Pressure 1: 124/80 Code: 8480-6 BMI: 32.7 Code: 30288-3 Heart Rate 1: 70 bpm Height: 5'7" Respiratory Rate: 18 bpm Temperature: 36 .6 (C) / 97.9 (F) Weight: 209 lbs 08/18/2014 Blood Pressure 1: 132/94 Code: 8480-6 BMI: 34.5 Code: 58066-1 Heart Rate 1: 84 bpm Height: 5'6" Respiratory Rate: 20 bpm Temperature: 36 .6 (C) / 97.9 (F) Weight: 217 lbs 07/08/2014 Blood Pressure 1: 142/88 Code: 8480-6 BMI: 34.3 Code: 56109-1 Heart Rate 1: 72 bpm Height: 5'6" [...] 12/02/2014 skin lesion 08/18/2014 ~generic 07/08/2014 [facility] Encounter Performer Location Codes Date ([id number]) OFFICE/OUTPATIENT VISIT EST Diagnosis: Disorder of the skin and subcutaneous tissue, unspecified[ICD10: L98.9] Diagnosis: Infected sebaceous cyst[ICD10: L72.3] Diagnosis: Local infection of the skin and subcutaneous tissue, unspecified[ICD10: L08.9] Lashell Heathanne PROCTOR [employer] CPT-4 : 55056 10/27/2019 ([id number]) OFFICE/OUTPATIENT VISIT EST Diagnosis: Suprapubic abdominal pain[ICD10: R10.2] Diagnosis: Aortic regurgitation[ICD10: I35.1] Sapna Johnston PAULYDOMINIC [employer] CPT-4: 45399 10/02/2019 ([id number]) OFFICE/OUTPATIENT VISIT EST Diagnosis: Chest pain[ICD10: R07.9] Lashell Heathanne GOODSON MANUELITO [employer] CPT-4: 15390 08/25/2019 ([id number]) OFFICE/OUTPATIENT VISIT EST Diagnosis: Thoracic back pain[ICD10: M54.6] Diagnosis: Disorder of kidney and ureter, unspecified[ICD10: N28.9] Diagnosis: Personal history of nicotine dependence[ICD10: Z87.891] 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] Lashell Johnston CANDICE ANGELY [employer] CPT-4: 28721 08/13/2019 ([id number]) OFFICE/OUTPATIENT VISIT EST Diagnosis: Sigmoid diverticulitis[ICD10: K57.32] Diagnosis: Renal insufficiency[ICD10: N28.9] Diagnosis: Jock itch[ICD10: B35.6] Sapna PARDO DO [facility] CPT-4: 10812 07/03/2019 ([id number]) OFFICE/OUTPATIENT VISIT EST Diagnosis: Cramp and spasm[ICD10: R25.2] Diagnosis: Disorder of kidney and ureter, unspecified[ICD10: N28.9] Lashell LIVE DO [facility] CPT-4: 76315 06/05/2019 ([id number]) OFFICE/OUTPATIENT VISIT EST Diagnosis: Other pruritus[ICD10: L29.8] Diagnosis: Pain in right knee[ICD10: M25.561] Lashell LIVE DO [facility] CPT-4: 95617 05/21/2019 ([id number]) NURSE/OUTPATIENT VISIT EST Diagnosis: Edema, unspecified[ICD10: R60.9] Sapna LIVE [facility] CPT-4: 62625 04/21/2019 ([id number]) OFFICE/OUTPATIENT VISIT EST Diagnosis: Diverticulitis of large intestine without perforation or abscess without bleeding[ICD10: K57.32] Diagnosis: Snoring[ICD10: R06.83] Diagnosis: Other constipation[ICD10: K59.09] Lashell LIVE DO [facility] CPT-4: 02946 02/24/2019 ([id number]) OFFICE/OUTPATIENT VISIT EST Diagnosis: Diverticulitis of large intestine without perforation or abscess with bleeding[ICD10: K57.33] Nancy BRUNSONLINE Vickie LIVE [employer] [facility] CPT-4: 90712 02/04/2019 ([id number]) OFFICE/OUTPATIENT VISIT EST Diagnosis: Left lower quadrant pain[ICD10: R10.32] Nancy Mendiola ALYSSA DAIGLEJANE Vickie LIVE DO [facility] CPT-4: 04762 01/29/2019 OFFICE/OUTPATIENT VISIT EST Diagnosis: Dermatitis, unspecified[ICD10: L30.9] Diagnosis: Gastro-esophageal reflux disease without esophagitis[ICD10: K21.9] Diagnosis: Palpitations[ICD10: R00.2] Sapna AU DO [employer] CPT-4: 33659 12/19/2018 ([id number]) OFFICE/OUTPATIENT VISIT EST Diagnosis: Gastro-esophageal reflux disease without esophagitis[ICD10: K21.9] Diagnosis: Dysphagia, pharyngoesophageal phase[ICD10: R13.14] Sapna LIVE DO [employer] CPT-4: 70777 11/11/2018 ([id number]) PREV VISIT EST AGE 40-64 Diagnosis: Encounter [...] of digestive system[ICD10: K91.89] Lashell LIVE DO [employer] CPT-4: 99 396 10/09/2018 ([id number]) OFFICE/OUTPATIENT VISIT EST Diagnosis: Pain in right knee[ICD10: M25.561] Diagnosis: Pain in right hip[ICD10: M25.551] Lashell LIVE DO [employer] CPT-4: 43097 02/12/2018 OFFICE/OUTPATIENT VISIT EST Diagnosis: Essential (primary) hypertension[ICD10: I10] Diagnosis: Other chest pain[ICD10: R07.89] Lashell LIVE DO [employer] CPT-4: 34637 12/03/2017 ([id number]) OFFICE/OUTPATIENT VISIT EST Diagnosis: Essential (primary) hypertension[ICD10: I10] Sapna LIVE DO [employer] CPT-4: 69286 09/11/2017 ([id number]) PREV VISIT EST AGE 40-64 Diagnosis: Encounter for general adult medical examination without abnormal findings[ICD10: Z00.00] Diagnosis: Essential (primary) hypertension[ICD10: I10] Diagnosis: Left lower quadrant pain[ICD10: R10.32] Diagnosis: Left upper quadrant pain[ICD10: R10.12] Diagnosis: Other intervertebral disc degeneration, 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] Sapna LIVE [facility] CPT-4: 33828 08/13/2017 ([id number]) OFFICE/OUTPATIENT VISIT EST Diagnosis: Acute pharyngitis, unspecified[ICD10: J02.9] Sapna LIVE [facility] CPT-4: 37347 02/13/2017 ([id number]) PREV VISIT EST AGE 40-64 Diagnosis: Encounter for general adult medical examination without abnormal findings[ICD10: Z00.00] Diagnosis: Essential (primary) hypertension[ICD10: I10] 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] [facility]PT[facility]: 72564 07/19/2016 OFFICE/OUTPATIENT VISIT EST Diagnosis: Pain in thoracic spine[ICD10: M54.6] Diagnosis: Disorder of the skin and subcutaneous tissue, unspecified[ICD10: L98.9] Sobia Monreal SAPNA [facility] CPT-4: 65533 06/09/2016 OFFICE/OUTPATIENT VISIT EST Diagnosis: Retention of urine, unspecified[ICD10: R33.9] Diagnosis: Urinary tract infection, site not specified[ICD10: N39.0] Chelsie NoriegaAlysiaoscar CappsAmarjit BUZZ [facility] CPT-4: 10392 11/08/2015 ([id number]) OFFICE/OUTPATIENT VISIT EST Diagnosis: DERMATITIS NOS[ICD9: 692.9] Diagnosis: SEBACEOUS CYST[ICD9: 706.2] Sapna BRUNSONLINE JefryAmarjit Claudio DANITZA [facility] CPT-4: 18546 06/14/2015 OFFICE/OUTPATIENT VISIT EST Diagnosis: LOCAL SKIN INFECTION[ICD9: 686.9] Diagnosis: FOLLICULITIS[ICD9: 704.8] Chelsie NoriegaAlysiafélixjusta SAPNA [employer]marjit [facility] CPT-4: 72745 05/18/2015 ([id number]) OFFICE/OUTPATIENT VISIT EST Diagnosis: Constipation[ICD9: 564.00] Sapna JOSE CPT-4: 77508 02/22/2015 ([id number]) OFFICE/OUTPATIENT VISIT EST Diagnosis: Thoracic back pain[ICD9: 724.1] Diagnosis: Thoracic degenerative disc disease[ICD9: 722.51] Diagnosis: Scoliosis[ICD9: 737.30] Sapna PARDO DO [employer] CPT-4: 08265 12/02/2014 ([id number]) OFFICE/OUTPATIENT VISIT EST Diagnosis: Thoracic back pain[ICD9: 724.1] Diagnosis: ACTINIC KERATOSIS[ICD9: 702.0] Sapna LIVE DO [employer] CPT-4: 26332 08/18/2014 OFFICE/OUTPATIENT VISIT NEW Diagnosis: HYPERTENSION[ICD9: 401.9] Diagnosis: Thoracic back pain[ICD9: 724.1] Diagnosis: GERD[ICD9: 530.81] Diagnosis: Adrenal tumor[ICD9: 239.7] Sapna AU DO [employer] CPT-4: 41771 07/08/2014 ([id number]) OFFICE/OUTPATIENT VISIT NEW Diagnosis: HYPERTENSION[ICD9: 401.9] Diagnosis: GERD[ICD9: 530.81] Sapna LIVE DO [employer] CPT-4: 52095 07/08/2014 Plan of Care Planned Activity Notes [...] ICD-10 : L08.9 10/27/2019 Appointment: Lashell Joe [address] [place], [place] [id number] ACUTE ILLNESS 10/27/2019 Patient Education: tramadol- [employer] Coupon [id number] [email or web address]/samplemd/resources/getResource/61/[email or web address]-[email or web address] Completed 10/27/2019 Visit Plan: Update Low Dose [...] : I35.1 10/02/2019 Appointment: Sapna Live WPtel: [facility]6676[facility] FOLLOW UP 10/02/2019 Care Plan: Referral Order SNOMED-CT : [id number] Pending 10/02/2019 Visit Diagnosis Plan: Chest pain Discussion: will star t with cxray and rib xray. discussed that could be lung, rib, muscle but will start with cxray and patient may need echo. he verbalized understanding. ICD-9 : 786.50 ICD-10 : R07.9 08/25/2019 Appointment: Lashell Joe [address] [place], [place] [id number] ACUTE ILLNESS 08/25/2019 Visit Diagnosis Plan: Thoracic back pain Discussion: c hronic pain. will refer to dr. stallings at [place] for evaluation and treatment ICD-9 : 724.1 [...] ct of lungs to be done at [facility]. ICD-9 : V15.82 ICD-10 : [...] : E27.8 08/13/2019 Appointment: Lashell Joe [address] [id number] US FOLLOW UP 08/13/2019 Visit Diagnosis Plan: Sigmoid diverticulitis Discussio n: Bactrim/Flagyl [place] diet To ER this weekend if worsening ICD-9 : 562.11 ICD-10 : K57.32 07/03/2019 Visit Diagnosis Plan: Jock itch Discussion: Diflucan a nd topical nystatin ICD-9 : 110.3 ICD-10 : B35.6 07/03/2019 Visit Diagnosis Plan: Renal insufficiency Discussion: Labs discussed Continue off NSAIDS Hydrate Recheck Chemistry 3mos ICD-9 : 593.9 ICD-10 : N28.9 07/03/2019 Appointment: Sapna Live WPtel: [phone] [facility] US FOLLOW UP 07/03/2019 Patient Education: fluconazole- [employer] Coupon [id number] Completed 07/03/2019 Patient Education: nystatin- [employer] Coupon [id number] Completed 07/03/2019 Visit Diagnosis Plan: Disorder of [...] : R25.2 06/05/2019 Appointment: Lashell Joe [address] [id number] US NO SHOW - FORGIVEN 06/05/2019 Appointment: Lashell Joe 504 [facility]6676[facility] ACUTE ILLNESS 06/05/2019 Visit Diagnosis Plan: Pain [...] : L29.8 05/21/2019 Appointment: Lashell Joe [address] [place] [address] ACUTE ILLNESS 05/21/2019 Patient Education: hydroxyzine HCl- [employer] Coupon [id number] https://www.[employer]/samplemd/resources/getResource/61/apvn25d4-u73b-22cd-28 Completed 05/21/2019 Appointment: Sapna Live WPtel: [address] [place], [place] [phone] 05/19/19 1645---see note put in chart today (km) CANCELED 05/19/2019 Appointment: Sapna Live WPtel: [address] [place], [place] [id number] US CANCELED 05/05/2019 Appointment: Sapna Live WPtel: [address] [place], [place] [phone] UA 04/21/2019 Visit Diagnosis Plan: Diverticulitis of [...] ICD-10 : K59.09 02/24/2019 Appointment: Lashell Joe [address] [place] [address] Hospital Follow Up 02/24/2019 Visit Diagnosis Plan: Diverticulitis of large intestine without perforation or abscess with bleeding Discussion: Continue flagyl and cipro. A dvance diet to bland. BRAT diet advised. Avoid nuts, seeds, popcorn, roughage. RTC if abdominal pain worsens or does not improve. ICD-9 : 562.13 ICD-10 : K57.33 02/04/2019 Appointment: Nancy Mendiola [facility] Pham [address] FOLLOW UP 02/04/2019 Visit Diagnosis Plan: [...] ICD-10 : R10.32 01/29/2019 Appointment: Nancy Mendiola [facility] [employer] [id number] US ACUTE ILLNESS 01/29/2019 Care Plan: CT [...] : L30.9 12/19/2018 Appointment: Sapna Live WPtel: [address] [place], [place] [phone] ACUTE ILLNESS 12/19/2018 Visit Diagnosis Plan: Gastro-esophageal reflux disease without esophagitis Discussion: Continue protonix at 40mg daily Hold mobic No NSAIDS Hold all MVs If persists then will need EGD ICD-9 : 530.81 ICD-10 : K21.9 11/11/2018 Appointment: Sapna Live WPtel: [facility]4 [facility] FOLLOW UP 11/11/2018 Visit Diagnosis Plan: Encounter for [facility] adult medical examination without abnormal [...] : I10 10/09/2018 Appointment: Lashell Joe 504 [facility] Annual Well Visit 10/09/2018 Patient Education: gabapentin- [employer] Coupon [id number] Completed 10/09/2018 Patient Education: Kegel Exercises Comple catalina 10/09/2018 Patient Education: High Blood Pressure Co mpleted 10/09/2018 Visit Diagnosis Plan: Pain in right knee Discussion: c orticosteroid injection administered as described above. patient tolerated well. instructed to rtc in 3- 4 months if needed for additional injection. ICD-9 : 719.46 ICD-10 : M25.561 02/19/2018 Appointment: [facility] [facility] 02/19/2018 Patient Education: Patient [...] ICD-10 : M25.551 02/12/2018 Appointment: Lashell Joe [address] [place] [address] ACUTE ILLNESS 02/12/2018 Patient Education: Patient Medication Summary Completed 02/12/2018 Care Plan: X-RAY EXAM OF KNEE 1 OR 2 [place] : [address]-4 Pending 02/12/2018 Visit Diagnosis Plan: Essential (primary) [...] ICD-10 : R07.89 12/03/2017 Appointment: Lashell Joe [address] [place] [address] ESTABLISHED PATIENT 12/03/2017 Patient Education: Patient Medication Summary Completed 12/03/2017 Visit Diagnosis Plan: Essential (primary) hypertension Discussion: Increase quinapril to 40mg daily BP check in 1month ICD-9 : 401.9 ICD-10 : I10 09/11/2017 Appointment: Sapna Live WPtel: [address] [place], [place] [phone] US FOLLOW UP 09/11/2017 Patient Education: Patient Medication Summary Completed 09/11/2017 Appointment: Sapna Live WPtel: [facility]0 [facility] US RESCHEDULED 08/22/2017 Visit Diagnosis Plan: Essential (primary) hypertension Discussion: Increase quinapril to 20mg daily Follow Up: 1 months ICD-9 : 401.9 ICD-10 : I10 08/13/2017 Visit Diagnosis Plan: Encounter for [facility] adult medical examination without abnormal findings Discussion: Update fasting lab ICD-9 : V70.9 ICD-10 : Z00.00 08/13/2017 Visit Diagnosis Plan: Left lower quadrant pain Discuss ion: Update colonoscopy ICD-9 : 789.04 ICD-10 : R10.32 08/13/2017 Appointment: Sapna Live WPtel: [address] [place] [address] Annual Well Visit 08/13/2017 Patient Education: Patient Medication Summary Completed 08/13/2017 Appointment: Sapna Live WPtel: [address] [place] [address] THROAT SWAB 02/13/2017 Patient Education: Patient Medication Summary Completed 02/13/2017 Appointment: Sapna Live WPtel: [address] [place] [address] BP CHECK 11/17/2016 Patient Education: Patient Medication Summary Completed 11/17/2016 Visit Plan: Due for colonoscopy in 2018 Had shingles shot and flu shot Change quinapril hct to plain quinapril and see if muscles twitches improve Fwup with Dr. Braga Lab discussed Discussed diet/exercise at length Check CT abdomen Recheck 3mos 07/19/2016 Appointment: Sapna Live WPtel: [address] [place], [place] [phone] 07/18 confirmed`sl PHYSICAL 07/19/2016 [...] earliest convenience 06/09/2016 Appointment: Sobia Monreal WPtel: [address] [place] [address] ACUTE ILLNESS 06/09/2016 Patient Education: Patient Medication Summary Completed 06/09/2016 Referral: Demario Braga WPtel: [address] [place] [address] Referral Initiated 11/12/2015 Visit Plan: Continue indwelling catheter until follow-up with Dr. Braga Continue Bactrim and Cipro Pyridium TID for Bladder spasms 11/08/2015 Appointment: Chelsie Teixeira WPtel: [address] [place] [address] ER Follow UP 11/08/2015 Patient Education: Patient Medication Summary Completed 11/08/2015 Referral: Abdiel Tucker WPtel: [address] [place] [address] Referral Initiated 06/21/2015 Visit Plan: Prednisone 20mg daily for 1w [place] See surgery of cyst removal 06/14/2015 Appointment: Sapna Live WPtel: [address] [place] [address] 06/11 vm cn 06/14 vm cn FOLLOW UP 2014 Patient Education: Patient Medication Summary Completed 06/14/2015 Visit Plan: Warm moist compresses to Lef t shoulder lesion and apply topical Mupirocin twice daily Complete Cephalexin x 7 days as directed Resume Culturelle daily 05/18/2015 Appointment: Chelsie Teixeira WPtel: [address] [place] [address] ACUTE ILLNESS 05/18/2015 Patient Education: Patient Medication Summary Completed 05/18/2015 Visit Plan: Check fasting lab Use pain m eds prn with miralax on the day that takes pain meds 02/22/2015 Appointment: Sapna Live WPtel: [address] [place] [address] 02/19 vm cn 02/19 appt confirmed-lb ACUTE ILLNESS 5 Patient Education: Patient Medication Summary Completed 02/22/2015 Visit Plan: Increase neurontin to 300mg q HS Continue flexeril and tramadol Call in 1mo on how higher dose of gabapentin 12/02/2014 Appointment: Sapna Live WPtel: [address] [place], [place] [address] FOLLOW UP 12/02/2014 Patient Education: Patient Medication Summary Completed 12/02/2014 Referral: Eric Angelo WPtel: [address] [place] [address] [place] Referral Appointment Confirmed 09/15/2014 Visit Plan: Proceed with pain doctor for possible injection vs nerve block Trial of lidoderm patch Cryotherapy to lesions as above 08/18/2014 Appointment: Sapna Live WPtel: [address] [place], [place] [id number] 08/18/2014 Patient Education: Patient Medication Summary Completed 08/18/2014 Patient Education: Patient Medication Summary Completed 08/13/2014 Visit Plan: Continue current meds Obtain most recent lab results Check thoracic spine x-rays Needs updated CT scan of adrenal tumor 07/08/2014 Appointment: Sapna Live WPtel: [address] [place], [place] [phone] 07/07 vm NEW PATIENT 07/08/2014 Patient Education: Patient Medication Summary Completed 07/08/2014 Patient Education: Patient Medication Summary Completed 07/08/2014 Referral: Suhail Cardenas WPtel: [phone] [id number] [place] Referral Completed Referral: Toby Bettencourt WPtel: [address] [place] [address] [place] [id number] [place] Referral Completed Referral: Rosario Monahan WPtel: [phone] [facility] C [place] Referral Appointment Requested Instructions Comment [...]
--- OUTSIDE RECORDS SUMMARY | 2020-02-05 07:56 | XMS REPORT | CCD ---
Author Author Jai Live D.O. 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 Name Role Phone Sapna Live D.O., PP Unavailable CCM Unavailable Summary Purpose Interface Exchange Insurance Providers Payer name Policy type / Coverage type Covered democrat ID Effective Begin Date Effective End Date GPA Commercial Insurance [id number] 2019 Unknown Family history Mother Diagnosis Age At Onset Cancer Unknown Father Diagnosis Age At Onset Congestive heart failure Unknown Coronary Artery Disease(CAD) Unknown Social History Social History Element Codes Description Effective Dates Tobacco history SNOMED CT: 0235505 Former smoker 10/09/2018 Marital status Unknown 07/08/2014 Number of children Unknown 1 07/08/2014 Employment Unknown Currently employed [employer] 07/08/[address]: 079377591 Never drinks alcohol 2013 Has the patient [...] ied ICD-9: 709.9 ICD-10: L98.9 06/08/2016 Active Aortic regurgitation ICD-9: 424.1 ICD-10: I35.1 [...] Fill Instructions tramadol 50 mg tablet RxNorm: 676528 1 Tablet(s) Oral t hree times a day as needed for pain along with two tylenol 10/27/2019 10/27/2019 Inactive cyclobenzaprine 10 mg tablet RxNorm: 701657 1 Tablet(s) Oral th ree times a day 10/27/2019 No Stop Date Active Bactrim DS 800 mg-160 mg tablet RxNorm: 275655 1 Tablet(s) Oral two times a day 10/27/2019 11/03/2019 Active tramadol 50 mg tablet RxNorm: 294874 1 Tablet(s) Oral t hree times a day as needed for pain along with two tylenol 10/27/2019 10/26/2019 Inactive Bactrim DS 800 mg-160 mg tablet RxNorm: 869725 1 Tablet(s) Oral two times a day 10/27/2019 10/26/2019 Inactive tramadol 50 mg tablet RxNorm: 699325 1 Tablet(s) Oral t hree times a day as needed for pain along with two tylenol 09/29/2019 10/26/2019 Inactive quinapril 40 mg tablet RxNorm: 051209 1 Tablet(s) Oral QD 09/18/2019 03/15/2020 Active Patient requests 90 days supply tramadol 50 mg tablet RxNorm: 526942 1 Tablet(s) Oral t hree times a day as needed for pain along with two tylenol 08/28/2019 08/28/2019 Inactive tramadol 50 mg tablet RxNorm: 461953 1 Tablet(s) PO TID as needed for pain along with two tylenol 08/25/2019 08/27/2019 Inactive pantoprazole 40 mg tablet,delayed release RxNorm: 710878 1 Tabl et(s) Oral QD 08/13/2019 No Stop Date Active Vitamin D3 1,000 unit capsule RxNorm: 783080 1 Capsule(s) Oral QD 1 10/13/2018 No Stop Date Active tamsulosin 0.4 mg capsule RxNorm: 384763 1 Capsule(s) Oral QPM 07/26 No Stop Date Active Protonix 40 mg tablet,delayed release RxNorm: 240526 TA KE 1 TABLET BY MOUTH TWICE A DAY 08/04/2019 08/12/2019 Inactive Flagyl 500 mg tablet RxNorm: 734221 1 Tablet(s) Oral three time s a day 07/03/2019 07/13/2019 Inactive fluconazole 100 mg tablet RxNorm: 708421 1 Tablet(s) Oral QD 201807/10/2019 Inactive Bactrim DS 800 mg-160 mg tablet RxNorm: 970645 1 Tablet(s) Oral two times a day 07/03/2019 07/13/2019 Inactive nystatin 100,000 unit/gram topical cream RxNorm: 614019 Application Topical two times a day 07/03/2019 08/12/2019 Inactive gabapentin 600 mg tablet RxNorm: 862618 Tablet(s) TAKE 1 TABLET BY MOUTH EVERY NIGHT AT BEDTIME 06/25/2019 08/12/2019 Inactive - First Attempt Ref: [id number] quinapril 40 mg tablet RxNorm: 075478 1 Tablet(s) Oral QD 06/23/2019 09/17/2019 Inactive Patient requests 90 days supply tramadol 50 mg tablet RxNorm: 630847 1 Tablet(s) PO TID as needed for pain along with two tylenol 05/23/2019 08/24/2019 Inactive hydroxyzine HCl 25 mg tablet RxNorm: 134868 1 Tablet(s) PO TID as needed 05/21/2019 08/12/2019 Inactive Elimite 5 % topical cream RxNorm: 727995 1 Application TOP QHS apply head to toe and was off in morning 05/19/2019 07/02/2019 Inactive Protonix 40 mg tablet,delayed release RxNorm: 960077 1 Tablet(s ) PO BID 05/05/2019 08/02/2019 Inactive - First Attempt Ref: [id number] gabapentin 600 mg tablet RxNorm: 201456 Tablet(s) TAKE 1 TABLET BY MOUTH EVERY NIGHT AT BEDTIME 04/25/2019 06/24/2019 Inactive - First Attempt Ref: [id number] tramadol 50 mg tablet RxNorm: 977291 1 Tablet(s) PO TID as needed for pain along with two tylenol 04/21/2019 05/22/2019 Inactive quinapril 40 mg tablet RxNorm: 801684 1 Tablet(s) PO QD 04/01/2019 Inactive Patient requests 90 days supply fenofibrate micronized 134 mg capsule RxNorm: 873377 1 Capsule(s) PO QD Due for updated fasting labs 03/31/2019 08/12/2019 Inactive dicyclomine 10 mg capsule RxNorm: 652021 1 Capsule(s) PO TID as needed 02/24/2019 05/20/2019 Inactive Flagyl 500 mg tablet RxNorm: 229206 1 Tablet(s) PO Q8H 02/24/201908/2019 Inactive ciprofloxacin 500 mg tablet RxNorm: 418359 1 Tablet(s) PO BID 02/2403/09/2019 Inactive Flagyl 500 mg tablet RxNorm: 852178 1 Tablet(s) PO Q6H 01/30/2019 Inactive ciprofloxacin 500 mg tablet RxNorm: 767821 1 Tablet(s) PO BID 01/3001/29/2019 Inactive Flagyl 500 mg tablet RxNorm: 500427 1 Tablet(s) PO Q6H 01/30/201904/2019 Inactive ciprofloxacin 500 mg tablet RxNorm: 423599 1 Tablet(s) PO BID 01/3002/05/2019 Inactive gabapentin 600 mg tablet RxNorm: 599963 TAKE 1 TABLET B Y MOUTH EVERY NIGHT AT BEDTIME 01/27/2019 04/24/2019 Inactive - First Attempt Ref: [id number] tramadol 50 mg tablet RxNorm: 110901 1 Tablet(s) PO TID as needed for pain along with two tylenol 01/08/2019 04/20/2019 Inactive fenofibrate micronized 134 mg capsule RxNorm: 851961 1 Capsule(s) PO QD Due for updated fasting labs 01/02/2019 03/30/2019 Inactive quinapril 40 mg tablet RxNorm: 637560 1 Tablet(s) PO QD 01/01/2019 Inactive Patient requests 90 days supply Protonix 40 mg tablet,delayed release RxNorm: 600239 TA KE 1 TABLET BY MOUTH TWICE A DAY 01/01/2019 03/31/2019 Inactive - First Attempt Ref: [id number] Protonix 40 mg tablet,delayed release RxNorm: 260375 TA KE 1 TABLET BY MOUTH TWICE A DAY 12/25/2018 12/31/2018 Inactive - First Attempt Ref: [id number] gabapentin 600 mg tablet RxNorm: 559996 TAKE 1 TABLET B Y MOUTH EVERY NIGHT AT BEDTIME 12/02/2018 01/26/2019 Inactive - First Attempt Ref: [id number] Protonix 40 mg tablet,delayed release RxNorm: 707791 1 Tablet(s ) PO BID 11/11/2018 12/24/2018 Inactive Protonix 40 mg tablet,delayed release RxNorm: 200407 1 Tablet(s ) PO BID 10/09/2018 11/10/2018 Inactive gabapentin 600 mg tablet RxNorm: 870368 1 Tablet(s) PO QHS 10/09/19 19 12/01/2018 Inactive quinapril 40 mg tablet RxNorm: 403261 1 Tablet(s) PO QD 1 TABLE T(S) PO QD 08/08/2018 08/07/2018 Inactive Patient requests 9 0 days supply quinapril 40 mg tablet RxNorm: 807335 1 Tablet(s) PO QD 08/08/2018 Inactive Patient requests 90 days supply meloxicam 15 mg tablet RxNorm: 241294 1 Tablet(s) PO QD 08/08/2018 Inactive gabapentin 300 mg capsule RxNorm: 811293 1 CAPSULE(S) P O QHS DUE FOR WELLNESS VISIT 08/07/2018 10/08/2018 Inactive due for followup meloxicam 15 mg tablet RxNorm: 792362 Tablet(s) 1 TABLET(S) PO QD 1 10/07/2017 08/07/2018 Inactive fenofibrate micronized 134 mg capsule RxNorm: 621270 1 Capsule(s) PO QD Needs updated fasting labs!!!!!! 07/08/2018 07/07/2018 Inactive fenofibrate micronized 134 mg capsule RxNorm: 583347 1 Capsule( s) PO QD 07/08/2018 01/01/2019 Inactive fenofibrate micronized 134 mg capsule RxNorm: 673868 1 Capsule(s) PO QD Needs updated fasting labs!!!!!! 06/21/2018 07/08/2018 Inactive Medrol (Daniel) 4 mg tablets in a dose pack RxNorm: 199450 Tablet(s) PO As Directed 05/06/2018 05/05/2018 Inactive Medrol (Daniel) 4 mg tablets in a dose pack RxNorm: 768852 Tablet(s) PO As Directed 05/06/2018 08/07/2018 Inactive quinapril 40 mg tablet RxNorm: 642091 1 TABLET(S) PO QD 05/02/2018 Inactive Patient requests 90 days supply fenofibrate micronized 134 mg capsule RxNorm: 121147 1 Capsule(s) PO QD Needs updated fasting labs 04/29/2018 05/28/2018 Inactive Move Free Joint Health 750 mg-100 mg-1.65 mg-108 mg tablet R xNorm: 1 Tablet(s) PO QD 02/12/2018 03/13/2018 Inactive fenofibrate micronized 134 mg capsule RxNorm: 573832 Ca psule(s) 1 CAPSULE(S) PO QD 01/29/2018 06/21/2018 Inactive quinapril 40 mg tablet RxNorm: 432430 1 TABLET(S) PO QD 11/26/2017 Inactive Patient requests 90 days supply fenofibrate micronized 134 mg capsule RxNorm: 319026 1 CAPSULE( S) PO QD 11/06/2017 01/29/2018 Inactive gabapentin 300 mg capsule RxNorm: 119904 1 CAPSULE(S) P O QHS DUE FOR WELLNESS VISIT 10/24/2017 07/20/2018 Inactive due for followup meloxicam 15 mg tablet RxNorm: 964056 1 TABLET(S) PO QD 10/24/2017 Inactive quinapril 40 mg tablet RxNorm: 872625 1 Tablet(s) PO QD 10/24/2017 Inactive fenofibrate micronized 134 mg capsule RxNorm: 754617 1 Capsule( s) PO QD 08/22/2017 11/05/2017 Inactive fenofibrate micronized 134 mg capsule RxNorm: 659216 1 Capsule( s) PO QD 08/22/2017 08/21/2017 Inactive quinapril 20 mg tablet RxNorm: 036682 1 Tablet(s) PO QD 08/13/2017 Inactive gabapentin 300 mg capsule RxNorm: 956950 1 Capsule(s) P O QHS Due for wellness visit 08/06/2017 10/23/2017 Inactive due for followup gabapentin 300 mg capsule RxNorm: 892360 1 Capsule(s) P O QHS Due for wellness visit 08/02/2017 08/05/2017 Inactive due for followup meloxicam 15 mg tablet RxNorm: 063436 1 Tablet(s) PO QD 08/01/2017 Inactive gabapentin 300 mg capsule RxNorm: 808384 1 Capsule(s) P O QHS Due for wellness visit 08/01/2017 08/01/2017 Inactive due for followup gabapentin 300 mg capsule RxNorm: 374394 1 Capsule(s) P O QHS Due for wellness visit 08/01/2017 08/02/2017 Inactive gabapentin 300 mg capsule RxNorm: 530585 1 Capsule(s) PO QHS 201605/12/2017 Inactive quinapril 10 mg tablet RxNorm: 252025 1 Tablet(s) PO QD replace s quinapril hct 02/12/2017 08/12/2017 Inactive meloxicam 15 mg tablet RxNorm: 742814 1 Tablet(s) PO QD 02/05/2017 Inactive quinapril 10 mg tablet RxNorm: 639743 1 Tablet(s) PO QD replace s quinapril hct 11/16/2016 02/12/2017 Inactive gabapentin 300 mg capsule RxNorm: 385533 1 Capsule(s) PO QHS 201602/12/2017 Inactive quinapril 10 mg tablet RxNorm: 976316 1 Tablet(s) PO QD replace s quinapril hct 10/16/2016 11/15/2016 Inactive gabapentin 300 mg capsule RxNorm: 272710 1 Capsule(s) PO QHS 201511/15/2016 Inactive quinapril 10 mg tablet RxNorm: 725834 1 Tablet(s) PO QD replace s quinapril hct 07/19/2016 10/15/2016 Inactive meloxicam 15 mg tablet RxNorm: 789808 1 Tablet(s) PO QD 07/10/2016 Inactive meloxicam 15 mg tablet RxNorm: 965441 TAKE ONE TABLET BY MOUTH LUKE Y 07/10/2016 07/09/2016 Inactive meloxicam 15 mg tablet RxNorm: 125362 1 Tablet(s) PO QD 07/06/2016 Inactive meloxicam 15 mg tablet RxNorm: 133724 1 Tablet(s) PO QD 06/09/2016 Inactive Multivitamin & Mineral Formula tablet RxNorm: 1 Tablet(s) PO Q D 06/02/2016 07/01/2016 Inactive tamsulosin 0.4 mg capsule RxNorm: 973194 1 Capsule(s) PO QHS 201507/01/2016 Inactive Move Free Joint Health 750 mg-100 mg-1.65 mg-108 mg tablet R xNorm: 1 Tablet(s) PO QD 06/02/2016 07/01/2016 Inactive gabapentin 300 mg capsule RxNorm: 473963 1 Capsule(s) PO QHS 201508/27/2016 Inactive gabapentin 300 mg capsule RxNorm: 081089 Capsule(s) ALFONZO E ONE CAPSULE BY MOUTH AT BEDTIME 02/28/2016 05/27/2016 Inactive quinapril 10 mg-hydrochlorothiazide 12.5 mg tablet RxNorm: 3 67317 Tablet(s) TAKE ONE TABLET BY MOUTH EVERY MORNING 01/14/2016 07/18/2016 Inactive gabapentin 300 mg capsule RxNorm: 272030 TAKE ONE CAPSULE BY [facility] AT BEDTIME 12/28/2015 02/27/2016 Inactive Urecholine 25 mg tablet RxNorm: 503995 1 Tablet(s) PO TID 11/09/2015 07/18/2016 Inactive phenazopyridine 100 mg tablet RxNorm: 9578343 1 Tablet(s ) PO TID as needed for bladder spasms. 11/08/2015 11/08/2015 Inactive quinapril 10 mg-hydrochlorothiazide 12.5 mg tablet RxNorm: 3 74519 TAKE ONE TABLET BY MOUTH EVERY MORNING 10/15/2015 01/13/2016 Inactive gabapentin 300 mg capsule RxNorm: 110364 1 Tablet(s) PO QD TAKE ONE CAPSULE BY MOUTH EVERY NIGHT AT BEDTIME 09/23/2015 12/21/2015 Inactive quinapril 10 mg-hydrochlorothiazide 12.5 mg tablet RxNorm: 3 19707 Tablet(s) TAKE ONE TABLET BY MOUTH EVERY MORNING 07/14/2015 10/14/2015 Inactive gabapentin 300 mg capsule RxNorm: 615453 1 Tablet(s) PO QD TAKE ONE CAPSULE BY MOUTH EVERY NIGHT AT BEDTIME 06/25/2015 09/23/2015 Inactive prednisone 20 mg tablet RxNorm: 372733 1 Tablet(s) PO QD 06/14/2015 0 06/20/2015 Inactive cephalexin 500 mg capsule RxNorm: 948556 1 Capsule(s) PO BID 201405/27/2015 Inactive mupirocin 2 % topical ointment RxNorm: 253693 TOP BID 05/18/2015 0 06/13/2015 Inactive quinapril 10 mg-hydrochlorothiazide 12.5 mg tablet RxNorm: 3 99264 Tablet(s) TAKE ONE TABLET BY MOUTH EVERY MORNING 04/06/2015 07/14/2015 Inactive gabapentin 300 mg capsule RxNorm: 818615 1 Capsule(s) PO QHS 201404/01/2015 Inactive [SAVINGS FOR NON-COVERED LILIANA GS -- BIN:076576, PCN: ASPROD1, Group: XXXXX, ID# [id number], Questions: . THIS IS NOT INSURANCE.] gabapentin 300 mg capsule RxNorm: 357744 1 Capsule(s) PO QHS 201406/25/2015 Inactive [SAVINGS FOR NON-COVERED LILIANA GS -- BIN:982705, PCN: ASPROD1, Group: XXXXX, ID# [id number], Questions: . THIS IS NOT INSURANCE.] quinapril 10 mg-hydrochlorothiazide 12.5 mg tablet RxNorm: 3 88638 TAKE ONE TABLET BY MOUTH EVERY MORNING 12/11/2014 04/05/2015 Inactive gabapentin 300 mg capsule RxNorm: 709144 1 Capsule(s) PO QHS 201404/02/2015 Inactive [SAVINGS FOR NON-COVERED LILIANA GS -- BIN:464011, PCN: ASPROD1, Group: XXXXX, ID# [id number], Questions: . THIS IS NOT INSURANCE.] cyclobenzaprine 10 mg tablet RxNorm: 926303 1 Tablet(s) PO TID as needed for muscle spasm for muscle spasm 12/02/2014 02/21/2015 Inactive [S AVINGS FOR NON- COVERED DRUGS -- BIN:586703, PCN: ASPROD1, Group: XXXXX, ID# [id number], Questions: . THIS IS NOT INSURANCE.] gabapentin 100 mg capsule RxNorm: 798162 1 Capsule(s) PO QHS 201412/01/2014 Inactive [SAVINGS FOR NON-COVERED LILIANA GS -- BIN:622922, PCN: ASPROD1, Group: XXXXX, ID# [id number], Questions: . THIS IS NOT INSURANCE.] ibuprofen 800 mg tablet RxNorm: 583364 1 Tablet(s) PO T ID as needed low back pain 11/11/2014 11/23/2014 Inactive [SAVINGS FOR NON -COVERED DRUGS -- BIN:863832, PCN: ASPROD1, Group: XXXXX, ID# [id number], Questions: . THIS IS NOT INSURANCE.] ibuprofen 800 mg tablet RxNorm: 012474 1 Tablet(s) PO T ID as needed low back pain 11/09/2014 11/10/2014 Inactive [SAVINGS FOR NON -COVERED DRUGS -- BIN:513384, PCN: ASPROD1, Group: XXXXX, ID# [id number], Questions: . THIS IS NOT INSURANCE.] Zorvolex 35 mg capsule RxNorm: 4334313 1 Tablet(s) PO TID 08/27/2014 10/01/2014 Inactive [SAVINGS FOR UNINSURED PATIENTS -- BIN:0 04566, PCN: ASPROD1, Group: [id number], ID# [id number], Process claim through [place], for questions: . THIS IS NOT INSURANCE.] quinapril 10 mg-hydrochlorothiazide 12.5 mg tablet RxNorm: 3 56796 1 Tablet(s) PO QAM 08/27/2014 11/24/2014 Inactive Lidoderm 5 % (700 mg/patch) adhesive patch RxNorm: 1787972 Application TOP for 12hours then off for pain 08/18/2014 02/21/2015 Inactive [SAVIN GS FOR UNINSURED PATIENTS -- BIN:906748, PCN: ASPROD1, Group: AME08, ID# [id number], Process claim through [employer], for questions: . THIS IS NOT INSURANCE.] Zorvolex 35 mg capsule RxNorm: 1311079 1 Tablet(s) PO TID 08/13/2014 08/12/2014 Inactive Zorvolex 35 mg capsule RxNorm: 3056994 1 Tablet(s) PO TID 08/13/2014 08/24/2014 Inactive [SAVINGS FOR UNINSURED PATIENTS -- BIN:0 23868, PCN: ASPROD1, Group: AME08, ID# [id number], Process claim through [employer], for questions: . THIS IS NOT INSURANCE.] Aspirin Child 81 mg chewable tablet RxNorm: 279355 1 Tablet(s) PO QD No Start Date Active ibuprofen 800 mg tablet RxNorm: 441686 1 Tablet(s) PO T ID as needed low back pain No Start Date 11/08/2014 Inactive cyclobenzaprine 10 mg tablet RxNorm: 136984 1 Tablet(s) PO TID No S tart Date 08/12/2017 Inactive garlic 1,000 mg capsule RxNorm: 070635 1 Capsule(s) PO QD No Start Date 04/22/2019 Inactive tramadol 50 mg tablet RxNorm: 501636 1 Tablet(s) PO Q4-6H as ne eded for pain No Start Date 02/21/2015 Inactive tramadol 50 mg tablet RxNorm: 393290 1 Tablet(s) PO TID as needed for pain along with two tylenol No Start Date 01/07/2019 Inactive krill oil oral RxNorm: 13452 oral No Start Date 11/11/2018 Inacti ve Vitamin D3 2,000 unit tablet RxNorm: 055666 1 Tablet(s) PO QD No St art Date 08/12/2019 Inactive gabapentin 100 mg tablet RxNorm: 155479 1 Tablet(s) PO QD No Start Date 11/10/2014 Inactive Zofran 4 mg tablet RxNorm: 445076 1 Tablet(s) PO Q6H as needed No S tart Date 08/12/2019 Inactive Elimite 5 % topical cream RxNorm: 502663 1 Application TOP QHS apply head to toe and was off in morning No Start Date 05/18/2019 Inactive gabapentin 100 mg capsule RxNorm: 994173 1 Capsule(s) PO QHS No Sta rt Date 11/10/2014 Inactive aspirin 325 mg tablet RxNorm: 377458 2 Tablet(s) PO QD No Start Date 08/17/2014 Inactive Fish Oil 1,000 mg capsule RxNorm: 1 Capsule(s) PO QD No Start Date 10/08/2018 Inactive quinapril 10 mg-hydrochlorothiazide 12.5 mg tablet RxNorm: 3 72996 1 Tablet(s) PO QAM No Start Date 08/26/2014 Inactive quinapril 40 mg tablet RxNorm: 063646 1 Tablet(s) PO QD No Start Da te 10/23/2017 Inactive Medrol (Daniel) 4 mg tablets in a dose pack RxNorm: 849201 Tablet(s) PO As Directed No Start Date 05/05/2018 Inactive Urecholine 25 mg tablet RxNorm: 446563 1 Tablet(s) PO TID No Start Date 11/08/2015 Inactive cyclobenzaprine 10 mg tablet RxNorm: 968476 1/2-1 Table t(s) PO TID as needed for muscle spasm No Start Date 12/01/2014 Inactive tamsulosin 0.4 mg capsule RxNorm: 950741 2 Capsule(s) PO QPM No Sta rt Date 08/12/2019 Inactive hydrocodone 5 mg-acetaminophen 325 mg tablet RxNorm: 463056 1 -2 Tablet(s) PO Q6H as needed No Start Date 05/20/2019 Inactive loratadine 10 mg tablet RxNorm: 709880 1 Tablet(s) PO QD No Start D ate 07/07/2014 Inactive Medication Administered No Medication Administered data Immunizations Vaccine Codes Date Status Influenza CVX: 141 07/21/2019 Results Observation Observation Code Item Item Code Result Date S ervice Location CULTURE, URINE, ROUTINE 395 CULTURE SEE NOTE 1 10/15/[address] [facility] [address] CULTURE, URINE, ROUTINE 395 CULTURE, URINE, ROUTINE SEE NOTE 08/15/[address] [address] CBC (H/H, RBC, INDICES, WBC, PLT) 18885 WHITE BLOOD CELL COU NT 7.9 Thousand/uL 08/14/[address] [address] CBC (H/H, RBC, INDICES, WBC, PLT) 50095 RED BLOOD CELL COUNT 4.93 Million/uL 08/14/2019 [facility] [address] CBC (H/H, RBC, INDICES, WBC, PLT) 46049 HEMOGLOBIN 15 .4 g/dL 08/14/[address] [address] CBC (H/H, RBC, INDICES, WBC, PLT) 78299 HEMATOCRIT 45 .0 % 08/14/[address] [address] CBC (H/H, RBC, INDICES, WBC, PLT) 00311 MCV 91 .3 fL 08/14/[address] [address] CBC (H/H, RBC, INDICES, WBC, PLT) 98072 MCH 31 .2 pg 08/14/[address] [address] CBC (H/H, RBC, INDICES, WBC, PLT) 89765 MCHC 34 .2 g/dL 08/14/[address] [facility] [address] CBC (H/H, RBC, INDICES, WBC, PLT) 95118 RDW 12 .7 % 08/14/[address] [facility] [address] CBC (H/H, RBC, INDICES, WBC, PLT) 06362 PLATELET COUNT 214 Thousand/uL 08/14/[address] [address] CBC (H/H, RBC, INDICES, WBC, PLT) 08305 MPV 11 .5 fL 08/14/[address] [facility] [address] COMPREHENSIVE METABOLIC PANEL 86128 Glucose 113 mg /dL 08/14/2019 [facility] [address] COMPREHENSIVE METABOLIC PANEL 69460 UREA NITROGEN (BUN) 16 mg/dL 08/14/2019 [facility] [address] COMPREHENSIVE METABOLIC PANEL 68940 CREATININE 0.86 m g/dL 08/14/[address] [facility] [address] COMPREHENSIVE METABOLIC PANEL 24118 eGFR NON-AFR. [place] 92 mL/min/1.73m2 08/14/2019 [facility] [address] COMPREHENSIVE METABOLIC PANEL 13789 eGFR 106 mL/min/1.73m2 08/14/2019 [facility] [address] COMPREHENSIVE METABOLIC PANEL 87966 BUN/CREATININE RATIO NOT APPLICABLE (calc) 08/14/2019 [facility] [address] COMPREHENSIVE METABOLIC PANEL 56436 SODIUM 141 mm ol/L 08/14/[address] [facility] [address] COMPREHENSIVE METABOLIC PANEL 82554 POTASSIUM 4.1 mm ol/L 08/14/2019 [facility] [address] COMPREHENSIVE METABOLIC PANEL 74171 CHLORIDE 102 mm ol/L 08/14/[address] [facility] [address] COMPREHENSIVE METABOLIC PANEL 97184 CARBON DIOXIDE 28 mmol/L 08/14/[address] [facility] [address] COMPREHENSIVE METABOLIC PANEL 98000 CALCIUM 9.7 mg /dL 08/14/[address] [facility] [address] COMPREHENSIVE METABOLIC PANEL 86790 PROTEIN, TOTAL 6. 7 g/dL 08/14/[address] [facility] [address] [address] COMPREHENSIVE METABOLIC PANEL 84979 ALBUMIN 4.3 g/ dL 08/14/[address] [facility] [address] COMPREHENSIVE METABOLIC PANEL 06977 GLOBULIN 2.4 g/ dL(calc) 08/14/[address] [facility] [address] COMPREHENSIVE METABOLIC PANEL 64385 ALBUMIN/GLOBULIN RATIO 1.8 (calc) 08/14/[address] [address] COMPREHENSIVE METABOLIC PANEL 04596 BILIRUBIN, TOTAL 1.0 mg/dL 08/14/2019 [facility] [address] COMPREHENSIVE METABOLIC PANEL 10870 ALKALINE PHOSPHATASE 56 U/L 08/14/2019 [facility] [address] COMPREHENSIVE METABOLIC PANEL 43041 AST 18 U/L 08/14/[address] [facility] [address] COMPREHENSIVE METABOLIC PANEL 75457 ALT 28 U/L 08/14/[address] [facility] [address] MAGNESIUM 44710 MAGNESIUM 2.0 mg/dL 06/06/2019 [facility] [address] COMPREHENSIVE METABOLIC PANEL 69027 Glucose 106 mg /dL 06/06/2019 [facility] [address] COMPREHENSIVE METABOLIC PANEL 56038 UREA NITROGEN (BUN) 22 mg/dL 06/06/2019 [facility] [address] COMPREHENSIVE METABOLIC PANEL 28371 CREATININE 1.29 m g/dL 06/06/2019 [facility] [address] COMPREHENSIVE METABOLIC PANEL 85294 eGFR NON-AFR. [place] 58 mL/min/1.73m2 06/06/2019 [facility] [address] COMPREHENSIVE METABOLIC PANEL 67138 eGFR 67 mL/min/1.73m2 06/06/2019 [facility] [address] COMPREHENSIVE METABOLIC PANEL 55727 BUN/CREATININE RATIO 17 (calc) 06/06/2019 [facility] [address] COMPREHENSIVE METABOLIC PANEL 43481 SODIUM 138 mm ol/L 06/06/2019 [facility] [address] COMPREHENSIVE METABOLIC PANEL 39511 POTASSIUM 4.2 mm ol/L 06/06/2019 [facility] [address] COMPREHENSIVE METABOLIC PANEL 22532 CHLORIDE 101 mm ol/L 06/06/2019 [facility] [address] COMPREHENSIVE METABOLIC PANEL 68602 CARBON DIOXIDE 29 mmol/L 06/06/2019 [facility] [address] COMPREHENSIVE METABOLIC PANEL 42234 CALCIUM 9.6 mg /dL 06/06/2019 [facility] [address] COMPREHENSIVE METABOLIC PANEL 35589 PROTEIN, TOTAL 6. 9 g/dL 06/06/2019 [facility] [address] COMPREHENSIVE METABOLIC PANEL 58589 ALBUMIN 4.4 g/ dL 06/06/2019 [facility] [address] COMPREHENSIVE METABOLIC PANEL 00112 GLOBULIN 2.5 g/ dL(calc) 06/06/2019 [facility] [address] COMPREHENSIVE METABOLIC PANEL 61756 ALBUMIN/GLOBULIN RATIO 1.8 (calc) 06/06/2019 [facility] [address] COMPREHENSIVE METABOLIC PANEL 96055 BILIRUBIN, TOTAL 0.7 mg/dL 06/06/2019 [facility] [address] COMPREHENSIVE METABOLIC PANEL 53195 ALKALINE PHOSPHATASE 45 U/L 06/06/[address] [facility] [address] COMPREHENSIVE METABOLIC PANEL 48809 AST 21 U/L 06/06/2019 [facility] [address] COMPREHENSIVE METABOLIC PANEL 15602 ALT 34 U/L 06/06/2019 [facility] [place] [address] CULTURE, URINE, ROUTINE 395 CULTURE, URINE, ROUTINE SEE NOTE 04/23/2019 [facility] [address] [address] CULTURE, URINE, ROUTINE 395 CULTURE SEE NOTE 0 04/23/2019 [facility] [address] [place] [id number] EXTRA 1014 EXTRA TUBE RECEIVED 04/22 [facility] [address] [address] EXTRA 1014 SPECIMEN TYPE RECEIVED: LAV 0 04/22/[address] [facility] [address] [address] COMPREHENSIVE METABOLIC PANEL 72075 Glucose 94 mg/ dL 04/22/2019 [facility] [address] [address] COMPREHENSIVE METABOLIC PANEL 96830 UREA NITROGEN (BUN) 20 mg/dL 04/22/2019 [facility] [address] [address] COMPREHENSIVE METABOLIC PANEL 46098 CREATININE 1.30 m g/dL 04/22/2019 [facility] [address] [address] COMPREHENSIVE METABOLIC PANEL 74959 eGFR NON-AFR. [place] 58 mL/min/1.73m2 04/22/2019 [facility] [address] [address] COMPREHENSIVE METABOLIC PANEL 28259 eGFR 67 mL/min/1.73m2 04/22/2019 [facility] [address] [address] COMPREHENSIVE METABOLIC PANEL 18465 BUN/CREATININE RATIO 15 (calc) 04/22/2019 [facility] [address] [address] COMPREHENSIVE METABOLIC PANEL 74625 SODIUM 139 mm ol/L 04/22/2019 [facility] [address] [address] COMPREHENSIVE METABOLIC PANEL 19863 POTASSIUM 4.2 mm ol/L 04/22/2019 [facility] [address] [address] COMPREHENSIVE METABOLIC PANEL 32464 CHLORIDE 104 mm ol/L 04/22/2019 [facility] [address] [address] COMPREHENSIVE METABOLIC PANEL 63367 CARBON DIOXIDE 27 mmol/L 04/22/[address] [address] COMPREHENSIVE METABOLIC PANEL 01378 CALCIUM 9.9 mg /dL 04/22/[address] [address] COMPREHENSIVE METABOLIC PANEL 45418 PROTEIN, TOTAL 7. 1 g/dL 04/22/[address] [address] COMPREHENSIVE METABOLIC PANEL 07435 ALBUMIN 4.6 g/ dL 04/22/[address] [facility] [address] COMPREHENSIVE METABOLIC PANEL 78906 GLOBULIN 2.5 g/ dL(calc) 04/22/[address] [facility] [address] COMPREHENSIVE METABOLIC PANEL 04677 ALBUMIN/GLOBULIN RATIO 1.8 (calc) 04/22/[address] [address] COMPREHENSIVE METABOLIC PANEL 05030 BILIRUBIN, TOTAL 0.4 mg/dL 04/22/[address] [facility] [address] COMPREHENSIVE METABOLIC PANEL 75873 ALKALINE PHOSPHATASE 53 U/L 04/22/[address] [address] COMPREHENSIVE METABOLIC PANEL 78891 AST 21 U/L 04/22/[address] [address] COMPREHENSIVE METABOLIC PANEL 30195 ALT 34 U/L 04/22/[address] [facility] [address] CULTURE, URINE, ROUTINE 395 CULTURE, URINE, ROUTINE SEE NOTE 01/31/[address] [facility] [address] Procedures Procedure Codes Date URINALYSIS NONAUTO W/O SCOPE CPT-4: 63416 10/02/2019 URINE CULTURE/ COLONY COUNT CPT-4: 04395 10/02/2019 ROUTINE VENIPUNCTURE CPT-4: 43574 08/13/2019 URINALYSIS NONAUTO W/O SCOPE CPT-4: 51386 08/13/2019 CULTURE, URINE, ROUTINE CPT-4: 395 08/13/2019 COMPREHENSIVE METABOLIC PANEL CPT-4: 80809 08/13/2019 CBC (H/H, RBC, INDICES, WBC, PLT) CPT-4: 19808 2018 COMPREHENSIVE METABOLIC PANEL CPT-4: 04490 06/05/2019 MAGNESIUM CPT-4: 38280 06/05/2019 DEXAMETHASONE SODIUM PHOS CPT-4: J1100 05/21/2019 THER/PROPH/DIAG INJ SC/IM CPT-4: 35031 05/21/2019 TRIAMCINOLONE ACET INJ NOS CPT-4: J3301 05/21/2019 ROUTINE VENIPUNCTURE CPT-4: 08158 04/21/2019 COMPREHENSIVE METABOLIC PANEL CPT-4: 64131 04/21/2019 EXTRA CPT-4: 1014 04/21/2019 CULTURE, URINE, ROUTINE CPT-4: 395 04/21/2019 URINALYSIS NONAUTO W/O SCOPE CPT-4: 41281 04/21/2019 URINALYSIS NONAUTO W/O SCOPE CPT-4: 65558 01/29/2019 CULTURE, URINE, ROUTINE CPT-4: 395 01/29/2019 DRAIN/INJECT JOINT/BURSA CPT-4: 17056 02/19/2018 TRIAMCINOLONE ACET INJ NOS CPT-4: J3301 02/19/2018 DEXAMETHASONE SODIUM PHOS CPT-4: J1100 02/19/2018 THER/PROPH/DIAG INJ SC/IM CPT-4: 24189 02/12/2018 TRIAMCINOLONE ACET INJ NOS CPT-4: J3301 02/12/2018 DEXAMETHASONE SODIUM PHOS CPT-4: J1100 02/12/2018 CEFTRIAXONE SODIUM INJECTION CPT-4: J0696 12/03/2017 THER/PROPH/DIAG INJ SC/IM CPT-4: 93009 12/03/2017 THER/PROPH/DIAG INJ SC/IM CPT-4: 75301 12/03/2017 METHYLPREDNISOLONE INJECTION CPT-4: J2930 12/03/2017 URINALYSIS NONAUTO W/O SCOPE CPT-4: 04624 08/13/2017 STREP A ASSAY W/OPTIC CPT-4: 02531 02/13/2017 DESTRUCT PREMALG LESION (Cryosurgery) CPT-4: 98598 Vital Signs Date Vital 10/02/2019 Blood Pressure 1: 114/70 Code: 8480-6 [...] 1: 128/78 Code: 8480-6 BMI: 36.0 Code: 38742-5 Heart Rate 1: 68 bpm Height: 5'7" [...] 1: 138/86 Code: 8480-6 BMI: 35.6 Code: 52120-0 Heart Rate 1: 68 bpm Height: 5'7" SpO2: 95% Temperature: 36.6 (C) / 97.8 (F) Weight: 227 lbs 12/03/2017 Blood Pressure 1: 134/84 Code: 8480-6 BMI: 34.3 Code: 31237-7 Heart Rate 1: 68 bpm Height: 5'7" Respiratory Rate: 20 bpm SpO2: 96% Tempera ture: 35.9 (C) / 96.6 (F) Weight: 219 lbs 09/11/2017 Blood Pressure 1: 140/86 Code: 8480-6 BMI: 34.9 Code: 89632-9 Heart Rate 1: 84 bpm Height: 5'7" Respiratory Rate: 20 bpm SpO2: 95% Tempera ture: 36.7 (C) / 98.1 (F) Weight: 223 lbs 08/13/2017 Blood Pressure 1: 142/94 Code: 8480-6 BMI: 34.5 Code: 19885-4 Heart Rate 1: 76 bpm Height: 5'7" Respiratory Rate: 20 bpm SpO2: 96% Tempera ture: 37.1 (C) / 98.8 (F) Weight: 220 lbs 11/17/2016 Blood Pressure 1: 118/78 Code: 8480-6 He art Rate 1: 64 bpm 07/19/2016 Blood Pressure 1: 112/58 Code: 8480-6 BMI: 31.6 Code: 34635-6 Heart Rate 1: 88 bpm Height: 5'7" Respiratory Rate: 22 bpm SpO2: 98% Tempera ture: 36.3 (C) / 97.4 (F) Weight: 202 lbs 06/09/2016 Blood Pressure 1: 138/84 Code: 8480-6 BMI: 32.1 Code: 29815-5 Heart Rate 1: 58 bpm Height: 5'7" Respiratory Rate: 20 bpm SpO2: 97% Tempera ture: 36.6 (C) / 97.8 (F) Weight: 205 lbs 11/08/2015 Blood Pressure 1: 142/80 Code: 8480-6 BMI: 32.4 Code: 32978-0 Heart Rate 1: 76 bpm Height: 5'7" Respiratory Rate: 20 bpm Temperature: 36 .6 (C) / 97.9 (F) Weight: 207 lbs 06/14/2015 Blood Pressure 1: 126/80 Code: 8480-6 Heart Rate 1: 84 bpm Respiratory Rate: 20 bpm Temperature: 36.8 (C) / 98.2 (F) Weight: 206 lbs 05/18/2015 Blood Pressure 1: 124/80 Code: 8480-6 BMI: 32.3 Code: 31010-0 Heart Rate 1: 68 bpm Height: 5'7" Respiratory Rate: 20 bpm Temperature: 36 .4 (C) / 97.6 (F) Weight: 206 lbs 02/22/2015 Blood Pressure 1: 126/78 Code: 8480-6 BMI: 32.1 Code: 68634-7 Heart Rate 1: 76 bpm Height: 5'7" Respiratory Rate: 20 bpm Temperature: 36 .6 (C) / 97.9 (F) Weight: 205 lbs 12/02/2014 Blood Pressure 1: 124/80 Code: 8480-6 BMI: 32.7 Code: 88291-8 Heart Rate 1: 70 bpm Height: 5'7" Respiratory Rate: 18 bpm Temperature: 36 .6 (C) / 97.9 (F) Weight: 209 lbs 08/18/2014 Blood Pressure 1: 132/94 Code: 8480-6 BMI: 34.5 Code: 95272-5 Heart Rate 1: 84 bpm Height: 5'6" Respiratory Rate: 20 bpm Temperature: 36 .6 (C) / 97.9 (F) Weight: 217 lbs 07/08/2014 Blood Pressure 1: 142/88 Code: 8480-6 BMI: 34.3 Code: 85139-5 Heart Rate 1: 72 bpm Height: 5'6" Respiratory Rate: 20 bpm Temperature: 36 .8 (C) / 98.2 (F) Weight: 216 lbs Functional Status No Functional Status data Reason For Visit Reason For Visit Effective Dates Notes follow up 10/02/2019 chest pain/pressure 08/25/2019 frequent [...] 12/02/2014 skin lesion 08/18/2014 ~generic 07/08/2014 New Patient/Dillonlis rhonda Visit Encounters Encounter Performer Location Codes Date ([id number]) OFFICE/OUTPATIENT VISIT EST Diagnosis: Suprapubic abdominal pain[ICD10: R10.2] Diagnosis: Aortic regurgitation[ICD10: I35.1] Sapna SANCHEZ LOTUS S. 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 QUINTONND EDVIN [facility] CPT-4: 90058 07/03/2019 ([id number]) OFFICE/OUTPATIENT VISIT EST Diagnosis: Cramp and spasm[ICD10: R25.2] Diagnosis: Disorder of kidney and ureter, unspecified[ICD10: N28.9] Lashell Capps. QUINOTNNDER [facility] CPT-4: 43067 06/05/2019 ([id number]) OFFICE/OUTPATIENT VISIT EST Diagnosis: Other pruritus[ICD10: L29.8] Diagnosis: Pain in right knee[ICD10: M25.561] Lashell GAUTAM S. QUINTONNDER [facility] CPT-4: 89383 05/21/2019 ([id number]) NURSE/OUTPATIENT VISIT EST Diagnosis: Edema, unspecified[ICD10: R60.9] Sapna Orendedvin LIVE [facility] CPT-4: 65473 04/21/2019 ([id number]) OFFICE/OUTPATIENT VISIT EST Diagnosis: Diverticulitis of large intestine without perforation or abscess without bleeding[ICD10: K57.32] Diagnosis: Snoring[ICD10: R06.83] Diagnosis: Other constipation[ICD10: K59.09] Lashell LIVE Gopeers [facility] CPT-4: 23664 02/24/2019 ([id number]) OFFICE/OUTPATIENT VISIT EST Diagnosis: Diverticulitis of large intestine without perforation or abscess with bleeding[ICD10: K57.33] Nancy LIVE [facility] CPT-4: 28707 02/04/2019 ([id number]) OFFICE/OUTPATIENT VISIT EST Diagnosis: Left lower quadrant pain[ICD10: R10.32] Nancy LIVE [facility] CPT-4: 62225 01/29/2019 OFFICE/OUTPATIENT VISIT EST Diagnosis: Dermatitis, unspecified[ICD10: L30.9] Diagnosis: Gastro-esophageal reflux disease without esophagitis[ICD10: K21.9] Diagnosis: Palpitations[ICD10: R00.2] Sapna BRUNSONLINE Vickie AU [facility] CPT-4: 02502 12/19/2018 ([id number]) OFFICE/OUTPATIENT VISIT EST Diagnosis: Gastro-esophageal reflux disease without esophagitis[ICD10: K21.9] Diagnosis: Dysphagia, pharyngoesophageal phase[ICD10: R13.14] Sapna LIVE Gopeers [facility] CPT-4: 26024 11/11/2018 ([id number]) PREV VISIT EST AGE 40-64 Diagnosis: Encounter [...] of digestive system[ICD10: K91.89] Lashell LIVE DO [facility] CPT-4: 99 396 10/09/2018 ([id number]) OFFICE/OUTPATIENT VISIT EST Diagnosis: Pain in right knee[ICD10: M25.561] Diagnosis: Pain in right hip[ICD10: M25.551] Lashell LIVE DO [facility] CPT-4: 86620 02/12/2018 OFFICE/OUTPATIENT VISIT EST Diagnosis: Essential (primary) hypertension[ICD10: I10] Diagnosis: Other chest pain[ICD10: R07.89] Lashell LIVE DO [facility] CPT-4: 08428 12/03/2017 ([id number]) OFFICE/OUTPATIENT VISIT EST Diagnosis: Essential (primary) hypertension[ICD10: I10] Sapna [facility] CPT-4: 76756 09/11/2017 ([id number]) PREV VISIT EST AGE 40-64 Diagnosis: Encounter for general adult medical examination without abnormal findings[ICD10: Z00.00] Diagnosis: Essential (primary) hypertension[ICD10: I10] Diagnosis: Left lower quadrant pain[ICD10: R10.32] Diagnosis: Left upper quadrant pain[ICD10: R10.12] Diagnosis: Other intervertebral disc degeneration, 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] Sapna LIVE Gopeers [facility] CPT-4: 59370 08/13/2017 ([id number]) OFFICE/OUTPATIENT VISIT EST Diagnosis: Acute pharyngitis, unspecified[ICD10: J02.9] Sapna [facility] CPT-4: 98194 02/13/2017 ([id number]) PREV VISIT EST AGE 40-64 Diagnosis: Encounter for general adult medical examination without abnormal findings[ICD10: Z00.00] Diagnosis: Essential (primary) hypertension[ICD10: I10] 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] Sapna LIVE Gopeers [facility] CPT-4: 46381 07/19/2016 OFFICE/OUTPATIENT VISIT EST Diagnosis: Pain in thoracic spine[ICD10: M54.6] Diagnosis: Disorder of the skin and subcutaneous tissue, unspecified[ICD10: L98.9] Sobia WoodChiragAdrián CappsAmarjit BUZZ [facility] CPT-4: 67103 06/09/2016 OFFICE/OUTPATIENT VISIT EST Diagnosis: Retention of urine, unspecified[ICD10: R33.9] Diagnosis: Urinary tract infection, site not specified[ICD10: N39.0] Chelsie NoriegaAlysiaoscar BRUNSONLINE JefryAmarjit [facility] CPT-4: 51203 11/08/2015 ([id number]) OFFICE/OUTPATIENT VISIT EST Diagnosis: DERMATITIS NOS[ICD9: 692.9] Diagnosis: SEBACEOUS CYST[ICD9: 706.2] Sapna Live SAPNA BOSCH [facility] CPT-4: 88577 06/14/2015 OFFICE/OUTPATIENT VISIT EST Diagnosis: LOCAL SKIN INFECTION[ICD9: 686.9] Diagnosis: FOLLICULITIS[ICD9: 704.8] Chelsie BRUNSONLINE JefryAmarjit QUINTON HASSAN [facility] CPT-4: 73753 05/18/2015 ([id number]) OFFICE/OUTPATIENT VISIT EST Diagnosis: Constipation[ICD9: 564.00] Sapna Alcantarajasonedvin SAPNA [facility] CPT-4: 96986 02/22/2015 ([id number]) OFFICE/OUTPATIENT VISIT EST Diagnosis: Thoracic back pain[ICD9: 724.1] Diagnosis: Thoracic degenerative disc disease[ICD9: 722.51] Diagnosis: Scoliosis[ICD9: 737.30] Sapna SHAHQUELINE JefryAmarjit [facility] CPT-4: 37073 12/02/2014 ([id number]) OFFICE/OUTPATIENT VISIT EST Diagnosis: Thoracic back pain[ICD9: 724.1] Diagnosis: ACTINIC KERATOSIS[ICD9: 702.0] Sapna Quintonjasonedvin SAPNA Jefry [facility] CPT-[facility]: 34576 08/18/2014 OFFICE/OUTPATIENT VISIT NEW Diagnosis: HYPERTENSION[ICD9: 401.9] Diagnosis: Thoracic back pain[ICD9: 724.1] Diagnosis: GERD[ICD9: 530.81] Diagnosis: Adrenal tumor[ICD9: 239.7] Sapna Rosaedvin SAPNA Johnston [facility] CPT-4: 07723 07/08/2014 ([id number]) OFFICE/OUTPATIENT VISIT NEW Diagnosis: HYPERTENSION[ICD9: 401.9] Diagnosis: GERD[ICD9: 530.81] Sapnamariam CappsAmarjit [facility] CPT-4: 61727 07/08/2014 Plan of Care Planned Activity Notes Codes Status Date Visit Plan: Update Low Dose CT scan of l ungs 10/02/2019 Visit Diagnosis Plan: Suprapubic abdominal pain Discus edvin: Improving Culture urine ICD-9 : 789.09 ICD-10 : R10.2 10/02/2019 Visit NOS Plan: Plan Notes: Update Low Dose CT scan of ming... 10/02/2019 Visit Diagnosis Plan: Aortic regurgitation Discussion: Referral to Cardiology ICD-9 : 424.1 ICD-10 : I35.1 10/02/2019 Appointment: Sapna Live WPtel: [phone] [facility] FOLLOW UP 10/02/2019 Care Plan: Referral Order SNOMED-CT : [id number] Pending 10/02/2019 Visit Diagnosis Plan: Chest pain Discussion: will star t with cxray and rib xray. discussed that could be lung, rib, muscle but will start with cxray and patient may need echo. he verbalized understanding. ICD-9 : 786.50 ICD-10 : R07.9 08/25/2019 Appointment: Lashell Joe [address] [place] [address] ACUTE ILLNESS 08/25/2019 Visit Diagnosis Plan: Thoracic back pain Discussion: c hronic pain. will refer to dr. stallings at [facility] for evaluation and treatment ICD-9 : 724.1 [...] ct of lungs to [facility] at [facility]. ICD-9 : V15.82 ICD-10 : Z87.891 [...] ICD-10 : E27.8 08/13/2019 Appointment: Lashell Joe [address] [place], [place] [id number] [place] FOLLOW UP 08/13/2019 Visit Diagnosis Plan: Sigmoid diverticulitis Discussio n: Bactrim/Flagyl [place] diet To ER this weekend if worsening ICD-9 : 562.11 ICD-10 : K57.32 07/03/2019 Visit Diagnosis Plan: Jock itch Discussion: Diflucan a nd topical nystatin ICD-9 : 110.3 ICD-10 : B35.6 07/03/2019 Visit Diagnosis Plan: Renal insufficiency Discussion: Labs discussed Continue off NSAIDS Hydrate Recheck Chemistry 3mos ICD-9 : 593.9 ICD-10 : N28.9 07/03/2019 Appointment: [facility]apna Live [facility]Ptel[phone] [facility] [facility] 07/03/2019 Patient Education: fluconazole- [employer] C[employer] [id number] Completed 07/03/2019 Patient Education: nystatin- [employer] [id number] Completed 07/03/2019 Visit Diagnosis Plan: Disorder of [...] : R25.2 06/05/2019 Appointment: Lashell Joe [address] [place] [address] NO SHOW - FORGIVEN 06/05/2019 Appointment: Lashell Joe [address] [place] [address] ACUTE ILLNESS 06/05/2019 Visit Diagnosis Plan: Pain [...] ICD-10 : L29.8 05/21/2019 Appointment: Lashell Joe [address] [place] [address] ACUTE ILLNESS 05/21/2019 Patient Education: hydroxyzine HCl- [employer] C[employer]on [id number] [email or web address] Completed 05/21/2019 Appointment: Sapna Live WPtel: [phone] [place] [id number] 05/19/19 1645---see note put in chart today (km) CANCELED 05/19/2019 Appointment: Sapna Live WPtel: [phone] [place] [address] [place] CANCELED 05/05/2019 Appointment: Sapna iLve WPtel: [phone] [id number] [facility] 04/21/2019 Visit Diagnosis Plan: Diverticulitis of large [...] : K59.09 02/24/2019 Appointment: Lashell Joe [address] [facility]66[facility] Follow Up 02/24/2019 Visit Diagnosis Plan: Diverticulitis of large intestine without perforation or abscess with bleeding Discussion: Continue flagyl and cipro. A dvance diet to bland. BRAT diet advised. Avoid nuts, seeds, popcorn, roughage. RTC if abdominal pain worsens or does not improve. ICD-9 : 562.13 ICD-10 : K57.33 02/04/2019 Appointment: Nancy Mendiola [address] [place], [place] [id number] FOLLOW UP 02/04/2019 Visit Diagnosis Plan: Left lower quadrant pain Discuss ion: CT abdomen and pelvis- pending. Continue Bactrim. UA shows trace hematuria- will r/o kidney stone vs. diverticulitis. Urine sent for culture. Patient instructed to go to ED [facility] with worsening symptoms. No work until called with results of CT scan. Patient states understanding. ICD-9 : 789.04 ICD-10 : R10.32 01/29/2019 Appointment: Nancy Mendiola [address] [place], [place] [address] ACUTE ILLNESS 01/29/2019 Care Plan: CT PELVIS [...] : L30.9 12/19/2018 Appointment: Sapna Live WPtel: [address] [place], [place] [phone] ACUTE ILLNESS 12/19/2018 Visit Diagnosis Plan: Gastro-esophageal reflux disease without esophagitis Discussion: Continue protonix at 40mg daily Hold mobic No NSAIDS Hold all MVs If persists then will need EGD ICD-9 : 530.81 ICD-10 : K21.9 11/11/2018 Appointment: Sapna Live WPtel: [address] [place] [address] FOLLOW UP 11/11/2018 Visit Diagnosis Plan: Encounter for [facility] adult medical examination without [...] ICD-10 : I10 10/09/2018 Appointment: Lashell Joe [address] [place], [place] [id number] Annual Well Visit 10/09/2018 Patient Education: gabapentin- [employer] C[employer]on [id number] Completed 10/09/2018 Patient Education: Kegel Exercises Comple catalina 10/09/2018 Patient Education: High Blood Pressure Co mpleted 10/09/2018 Visit Diagnosis Plan: Pain in right knee Discussion: c orticosteroid injection administered as described above. patient tolerated well. instructed to rtc in 3- 4 months if needed for additional injection. ICD-9 : 719.46 ICD-10 : M25.561 02/19/2018 Appointment: Lashell Joe [address] [place], [place] [id number] OFFICE SURGERY 02/19/2018 Patient Education: Patient Medication [...] ICD-10 : M25.551 02/12/2018 Appointment: Lashell Joe [address] [place], [place] [id number] ACUTE ILLNESS 02/12/2018 Patient Education: Patient Medication Summary Completed 02/12/2018 Care Plan: X-RAY EXAM OF KNEE 1 [place] 2 [place] : [address]-0 Pending 02/12/2018 Visit Diagnosis Plan: Essential (primary) [...] ICD-10 : R07.89 12/03/2017 Appointment: Lashell Joe [address] [place], [place] [id number] ESTABLISHED PATIENT 12/03/2017 Patient Education: Patient Medication Summary Completed 12/03/2017 Visit Diagnosis Plan: Essential (primary) hypertension Discussion: Increase quinapril to 40mg daily BP check in 1month ICD-9 : 401.9 ICD-10 : I10 09/11/2017 Appointment: Sapna Live WPtel: [phone] [facility] FOLLOW UP 09/11/2017 Patient Education: Patient Medication Summary Completed 09/11/2017 Appointment: Sapna Live WPtel: [address] [place] [address] RESCHEDULED 08/22/2017 Visit Diagnosis Plan: Essential (primary) hypertension Discussion: Increase quinapril to 20mg daily Follow Up: 1 months ICD-9 : 401.9 ICD-10 : I10 08/13/2017 Visit Diagnosis Plan: Encounter for [facility] adult medical examination without abnormal findings Discussion: Update fasting lab ICD-9 : V70.9 ICD-10 : Z00.00 08/13/2017 Visit Diagnosis Plan: Left lower quadrant pain Discuss ion: Update colonoscopy ICD-9 : 789.04 ICD-10 : R10.32 08/13/2017 Appointment: Sapna Live WPtel: [address] [place] [address] Annual Well Visit 08/13/2017 Patient Education: Patient Medication Summary Completed 08/13/2017 Appointment: Sapna Live WPtel: [address] [place] [address] THROAT SWAB 02/13/2017 Patient Education: Patient Medication Summary Completed 02/13/2017 Appointment: Sapna Live WPtel: [address] [place] [address] BP CHECK 11/17/2016 Patient Education: Patient Medication Summary Completed 11/17/2016 Visit Plan: Due for colonoscopy in 2018 Had shingles shot and flu shot Change quinapril hct to plain quinapril and see if muscles twitches improve Fwup with Dr. Braga Lab discussed Discussed diet/exercise at length Check CT abdomen Recheck 3mos 07/19/2016 Appointment: Sapna Live WPtel: [address] [place] [address] [place] 07/18 confirmed`sl PHYSICAL 07/19/2016 Patient Education: [...] convenience 06/09/2016 Appointment: Sobia Monreal WPtel: [address] [place], [place] [phone] ACUTE ILLNESS 06/09/2016 Patient Education: Patient Medication Summary Completed 06/09/2016 Referral: Demario Braga WPtel: [address] [place] [address] [place] Referral Initiated 11/12/2015 Visit Plan: Continue indwelling catheter until follow-up with Dr. Braga Continue Bactrim and Cipro Pyridium TID for Bladder spasms 11/08/2015 Appointment: Chelsie Teixeira WPtel: [address] [place], [place] [phone] ER Follow UP 11/08/2015 Patient Education: Patient Medication Summary Completed 11/08/2015 Referral: Abdiel Tucker WPtel: [phone] [facility] [address] Referral Initiated 06/21/2015 Visit Plan: Prednisone 20mg daily for 1w tazlina See surgery of cyst removal 06/14/2015 Appointment: Sapna Live WPtel: [address] [place], [place] [phone] 06/11 vm cn 06/14 vm cn FOLLOW UP 2014 Patient Education: Patient Medication Summary Completed 06/14/2015 Visit Plan: Warm moist compresses to Lef t shoulder lesion and apply topical Mupirocin twice daily Complete Cephalexin x 7 days as directed Resume Culturelle daily 05/18/2015 Appointment: Chelsie Teixeira WPtel: [address] [place], [place] [phone] ACUTE ILLNESS 05/18/2015 Patient Education: Patient Medication Summary Completed 05/18/2015 Visit Plan: Check fasting lab Use pain m eds prn with miralax on the day that takes pain meds 02/22/2015 Appointment: Sapna Live WPtel: [address] [place], [place] [address] 02/19 vm cn 02/19 appt confirmed-lb ACUTE ILLNESS 5 Patient Education: Patient Medication Summary Completed 02/22/2015 Visit Plan: Increase neurontin to 300mg q HS Continue flexeril and tramadol Call in 1mo on how higher dose of gabapentin 12/02/2014 Appointment: Sapna Live WPtel: [address] [place] [address] FOLLOW UP 12/02/2014 Patient Education: Patient Medication Summary Completed 12/02/2014 Referral: Eric Angelo WPtel: [facility] [place] [address] [place] Referral Appointment Confirmed 09/15/2014 Visit Plan: Proceed with pain doctor for possible injection vs nerve block Trial of lidoderm patch Cryotherapy to lesions as above 08/18/2014 Appointment: Sapna Live WPtel: [address] [place] [address] ACUTE ILLNESS 08/18/2014 Patient Education: Patient Medication Summary Completed 08/18/2014 Patient Education: Patient Medication Summary Completed 08/13/2014 Visit Plan: Continue current meds Obtain most recent lab results Check thoracic spine x-rays Needs updated CT scan of adrenal tumor 07/08/2014 Appointment: Sapna Live WPtel: [address] [place] [address] 07/07 vm NEW PATIENT 07/08/2014 Patient Education: Patient Medication Summary Completed 07/08/2014 Patient Education: Patient Medication Summary Completed 07/08/2014 Referral: Suhail Cardenas WPtel: [phone] [place] [address] [place] Referral Completed Referral: Toby Bettencourt WPtel: [address] [facility] [address] [id number] [place] Referral Completed Referral: Rosario Monahan WPtel: [address] [place] Referral Appointment Requested Instructions [...]
--- OUTSIDE RECORDS SUMMARY | 2020-02-05 07:57 | XMS REPORT | CCD ---
Author Author Jai Live D.O. Organization [facility] Address [address] [place] [address] Phone Care Team Providers Care Carding Machine Operator Name Role Phone Sapna Live D.O., PP Unavailable CCM Unavailable Summary Purpose Interface Exchange Insurance Providers Payer name Policy type / Coverage type Covered constitution party ID Effective Begin Date Effective End Date GPA Commercial Insurance [id number] 2019 Unknown Family history Mother Diagnosis Age At Onset Cancer Unknown Father Diagnosis Age At Onset Congestive heart failure Unknown Coronary Artery Disease(CAD) Unknown Social History Social History Element Codes Description Effective Dates Tobacco history SNOMED CT: 2107977 Former smoker 10/09/2018 Marital status Unknown 07/08/2014 Number of children Unknown 1 07/08/2014 Employment Unknown Currently employed [employer] 07/08/[address]: 705637147 Never drinks alcohol 2013 Has the patient [...] Fill Instructions tramadol 50 mg tablet RxNorm: 853289 1 Tablet(s) Oral t hree times a day as needed for pain along with two tylenol 10/27/2019 10/27/2019 Inactive cyclobenzaprine 10 mg tablet RxNorm: 063987 1 Tablet(s) Oral th ree times a day 10/27/2019 No Stop Date Active Bactrim DS 800 mg-160 mg tablet RxNorm: 868349 1 Tablet(s) Oral two times a day 10/27/2019 11/03/2019 Active Bactrim DS 800 mg-160 mg tablet RxNorm: 487051 1 Tablet(s) Oral two times a day 10/27/2019 10/26/2019 Inactive tramadol 50 mg tablet RxNorm: 076889 1 Tablet(s) Oral t hree times a day as needed for pain along with two tylenol 09/29/2019 10/26/2019 Inactive quinapril 40 mg tablet RxNorm: 877574 1 Tablet(s) Oral QD 09/18/2019 03/15/2020 Active Patient requests 90 days supply tramadol 50 mg tablet RxNorm: 269314 1 Tablet(s) Oral t hree times a day as needed for pain along with two tylenol 08/28/2019 08/28/2019 Inactive tramadol 50 mg tablet RxNorm: 192029 1 Tablet(s) PO TID as needed for pain along with two tylenol 08/25/2019 08/27/2019 Inactive pantoprazole 40 mg tablet,delayed release RxNorm: 747390 1 Tabl et(s) Oral QD 08/13/2019 No Stop Date Active Vitamin D3 1,000 unit capsule RxNorm: 087042 1 Capsule(s) Oral QD 1 10/13/2018 No Stop Date Active tamsulosin 0.4 mg capsule RxNorm: 921737 1 Capsule(s) Oral QPM 07/26 No Stop Date Active Protonix 40 mg tablet,delayed release RxNorm: 977202 TA KE 1 TABLET BY MOUTH TWICE A DAY 08/04/2019 08/12/2019 Inactive Flagyl 500 mg tablet RxNorm: 598384 1 Tablet(s) Oral three time s a day 07/03/2019 07/13/2019 Inactive fluconazole 100 mg tablet RxNorm: 655438 1 Tablet(s) Oral QD 201807/10/2019 Inactive Bactrim DS 800 mg-160 mg tablet RxNorm: 214896 1 Tablet(s) Oral two times a day 07/03/2019 07/13/2019 Inactive nystatin 100,000 unit/gram topical cream RxNorm: 865843 Application Topical two times a day 07/03/2019 08/12/2019 Inactive gabapentin 600 mg tablet RxNorm: 608801 Tablet(s) TAKE 1 TABLET BY MOUTH EVERY NIGHT AT BEDTIME 06/25/2019 08/12/2019 Inactive - First Attempt Ref: [id number] quinapril 40 mg tablet RxNorm: 046965 1 Tablet(s) Oral QD 06/23/2019 09/17/2019 Inactive Patient requests 90 days supply tramadol 50 mg tablet RxNorm: 207862 1 Tablet(s) PO TID as needed for pain along with two tylenol 05/23/2019 08/24/2019 Inactive hydroxyzine HCl 25 mg tablet RxNorm: 680790 1 Tablet(s) PO TID as needed 05/21/2019 08/12/2019 Inactive Elimite 5 % topical cream RxNorm: 827378 1 Application TOP QHS apply head to toe and was off in morning 05/19/2019 07/02/2019 Inactive Protonix 40 mg tablet,delayed release RxNorm: 607592 1 Tablet(s ) PO BID 05/05/2019 08/02/2019 Inactive - First Attempt Ref: [id number] gabapentin 600 mg tablet RxNorm: 987723 Tablet(s) TAKE 1 TABLET BY MOUTH EVERY NIGHT AT BEDTIME 04/25/2019 06/24/2019 Inactive - First Attempt Ref: [id number] tramadol 50 mg tablet RxNorm: 525100 1 Tablet(s) PO TID as needed for pain along with two tylenol 04/21/2019 05/22/2019 Inactive quinapril 40 mg tablet RxNorm: 930569 1 Tablet(s) PO QD 04/01/2019 Inactive Patient requests 90 days supply fenofibrate micronized 134 mg capsule RxNorm: 548887 1 Capsule(s) PO QD Due for updated fasting labs 03/31/2019 08/12/2019 Inactive dicyclomine 10 mg capsule RxNorm: 785806 1 Capsule(s) PO TID as needed 02/24/2019 05/20/2019 Inactive Flagyl 500 mg tablet RxNorm: 571114 1 Tablet(s) PO Q8H 02/24/201908/2019 Inactive ciprofloxacin 500 mg tablet RxNorm: 514183 1 Tablet(s) PO BID 02/2403/09/2019 Inactive Flagyl 500 mg tablet RxNorm: 942946 1 Tablet(s) PO Q6H 01/30/2019 Inactive ciprofloxacin 500 mg tablet RxNorm: 977522 1 Tablet(s) PO BID 01/3001/29/2019 Inactive Flagyl 500 mg tablet RxNorm: 388170 1 Tablet(s) PO Q6H 01/30/201904/2019 Inactive ciprofloxacin 500 mg tablet RxNorm: 213891 1 Tablet(s) PO BID 01/3002/05/2019 Inactive gabapentin 600 mg tablet RxNorm: 830631 TAKE 1 TABLET B Y MOUTH EVERY NIGHT AT BEDTIME 01/27/2019 04/24/2019 Inactive - First Attempt Ref: [id number] tramadol 50 mg tablet RxNorm: 533527 1 Tablet(s) PO TID as needed for pain along with two tylenol 01/08/2019 04/20/2019 Inactive fenofibrate micronized 134 mg capsule RxNorm: 065621 1 Capsule(s) PO QD Due for updated fasting labs 01/02/2019 03/30/2019 Inactive quinapril 40 mg tablet RxNorm: 498213 1 Tablet(s) PO QD 01/01/2019 Inactive Patient requests 90 days supply Protonix 40 mg tablet,delayed release RxNorm: 160923 TA KE 1 TABLET BY MOUTH TWICE A DAY 01/01/2019 03/31/2019 Inactive - First Attempt Ref: [id number] Protonix 40 mg tablet,delayed release RxNorm: 777916 TA KE 1 TABLET BY MOUTH TWICE A DAY 12/25/2018 12/31/2018 Inactive - First Attempt Ref: [id number] gabapentin 600 mg tablet RxNorm: 401666 TAKE 1 TABLET B Y MOUTH EVERY NIGHT AT BEDTIME 12/02/2018 01/26/2019 Inactive - First Attempt Ref: [id number] Protonix 40 mg tablet,delayed release RxNorm: 467295 1 Tablet(s ) PO BID 11/11/2018 12/24/2018 Inactive Protonix 40 mg tablet,delayed release RxNorm: 021511 1 Tablet(s ) PO BID 10/09/2018 11/10/2018 Inactive gabapentin 600 mg tablet RxNorm: 939260 1 Tablet(s) PO QHS 10/09/1912/01/2018 Inactive quinapril 40 mg tablet RxNorm: 435649 1 Tablet(s) PO QD 1 TABLE T(S) PO QD 08/08/2018 08/07/2018 Inactive Patient requests 9 0 days supply quinapril 40 mg tablet RxNorm: 971106 1 Tablet(s) PO QD 08/08/2018 Inactive Patient requests 90 days supply meloxicam 15 mg tablet RxNorm: 361324 1 Tablet(s) PO QD 08/08/2018 Inactive gabapentin 300 mg capsule RxNorm: 703046 1 CAPSULE(S) P O QHS DUE FOR WELLNESS VISIT 08/07/2018 10/08/2018 Inactive due for followup meloxicam 15 mg tablet RxNorm: 341246 Tablet(s) 1 TABLET(S) PO QD 1 10/07/2017 08/07/2018 Inactive fenofibrate micronized 134 mg capsule RxNorm: 156256 1 Capsule(s) PO QD Needs updated fasting labs!!!!!! 07/08/2018 07/07/2018 Inactive fenofibrate micronized 134 mg capsule RxNorm: 018503 1 Capsule( s) PO QD 07/08/2018 01/01/2019 Inactive fenofibrate micronized 134 mg capsule RxNorm: 829741 1 Capsule(s) PO QD Needs updated fasting labs!!!!!! 06/21/2018 07/08/2018 Inactive Medrol (Daniel) 4 mg tablets in a dose pack RxNorm: 508992 Tablet(s) PO As Directed 05/06/2018 05/05/2018 Inactive Medrol (Daniel) 4 mg tablets in a dose pack RxNorm: 100520 Tablet(s) PO As Directed 05/06/2018 08/07/2018 Inactive quinapril 40 mg tablet RxNorm: 231481 1 TABLET(S) PO QD 05/02/2018 Inactive Patient requests 90 days supply fenofibrate micronized 134 mg capsule RxNorm: 209321 1 Capsule(s) PO QD Needs updated fasting labs 04/29/2018 05/28/2018 Inactive Move Free Joint Health 750 mg-100 mg-1.65 mg-108 mg tablet R xNorm: 1 Tablet(s) PO QD 02/12/2018 03/13/2018 Inactive fenofibrate micronized 134 mg capsule RxNorm: 579860 Ca psule(s) 1 CAPSULE(S) PO QD 01/29/2018 06/21/2018 Inactive quinapril 40 mg tablet RxNorm: 310659 1 TABLET(S) PO QD 11/26/2017 Inactive Patient requests 90 days supply fenofibrate micronized 134 mg capsule RxNorm: 622679 1 CAPSULE( S) PO QD 11/06/2017 01/29/2018 Inactive gabapentin 300 mg capsule RxNorm: 160505 1 CAPSULE(S) P O QHS DUE FOR WELLNESS VISIT 10/24/2017 07/20/2018 Inactive due for followup meloxicam 15 mg tablet RxNorm: 308573 1 TABLET(S) PO QD 10/24/2017 Inactive quinapril 40 mg tablet RxNorm: 911731 1 Tablet(s) PO QD 10/24/2017 Inactive fenofibrate micronized 134 mg capsule RxNorm: 966603 1 Capsule( s) PO QD 08/22/2017 11/05/2017 Inactive fenofibrate micronized 134 mg capsule RxNorm: 125426 1 Capsule( s) PO QD 08/22/2017 08/21/2017 Inactive quinapril 20 mg tablet RxNorm: 741836 1 Tablet(s) PO QD 08/13/2017 Inactive gabapentin 300 mg capsule RxNorm: 147861 1 Capsule(s) P O QHS Due for wellness visit 08/06/2017 10/23/2017 Inactive due for followup gabapentin 300 mg capsule RxNorm: 226545 1 Capsule(s) P O QHS Due for wellness visit 08/02/2017 08/05/2017 Inactive due for followup meloxicam 15 mg tablet RxNorm: 032062 1 Tablet(s) PO QD 08/01/2017 Inactive gabapentin 300 mg capsule RxNorm: 131891 1 Capsule(s) P O QHS Due for wellness visit 08/01/2017 08/01/2017 Inactive due for followup gabapentin 300 mg capsule RxNorm: 758552 1 Capsule(s) P O QHS Due for wellness visit 08/01/2017 08/02/2017 Inactive gabapentin 300 mg capsule RxNorm: 771583 1 Capsule(s) PO QHS 201605/12/2017 Inactive quinapril 10 mg tablet RxNorm: 676628 1 Tablet(s) PO QD replace s quinapril hct 02/12/2017 08/12/2017 Inactive meloxicam 15 mg tablet RxNorm: 223171 1 Tablet(s) PO QD 02/05/2017 Inactive quinapril 10 mg tablet RxNorm: 691704 1 Tablet(s) PO QD replace s quinapril hct 11/16/2016 02/12/2017 Inactive gabapentin 300 mg capsule RxNorm: 897716 1 Capsule(s) PO QHS 201602/12/2017 Inactive quinapril 10 mg tablet RxNorm: 431504 1 Tablet(s) PO QD replace s quinapril hct 10/16/2016 11/15/2016 Inactive gabapentin 300 mg capsule RxNorm: 425606 1 Capsule(s) PO QHS 201511/15/2016 Inactive quinapril 10 mg tablet RxNorm: 874853 1 Tablet(s) PO QD replace s quinapril hct 07/19/2016 10/15/2016 Inactive meloxicam 15 mg tablet RxNorm: 938943 1 Tablet(s) PO QD 07/10/2016 Inactive meloxicam 15 mg tablet RxNorm: 766033 TAKE ONE TABLET BY MOUTH LUKE Y 07/10/2016 07/09/2016 Inactive meloxicam 15 mg tablet RxNorm: 114475 1 Tablet(s) PO QD 07/06/2016 Inactive meloxicam 15 mg tablet RxNorm: 731602 1 Tablet(s) PO QD 06/09/2016 Inactive Multivitamin & Mineral Formula tablet RxNorm: 1 Tablet(s) PO Q D 06/02/2016 07/01/2016 Inactive tamsulosin 0.4 mg capsule RxNorm: 209120 1 Capsule(s) PO QHS 201507/01/2016 Inactive Move Free Joint Health 750 mg-100 mg-1.65 mg-108 mg tablet R xNorm: 1 Tablet(s) PO QD 06/02/2016 07/01/2016 Inactive gabapentin 300 mg capsule RxNorm: 849773 1 Capsule(s) PO QHS 201508/27/2016 Inactive gabapentin 300 mg capsule RxNorm: 375035 Capsule(s) ALFONZO E ONE CAPSULE BY MOUTH AT BEDTIME 02/28/2016 05/27/2016 Inactive quinapril 10 mg-hydrochlorothiazide 12.5 mg tablet RxNorm: 3 44279 Tablet(s) TAKE ONE TABLET BY MOUTH EVERY MORNING 01/14/2016 07/18/2016 Inactive gabapentin 300 mg capsule RxNorm: 910153 TAKE ONE CAPSULE BY [facility] AT BEDTIME 12/28/2015 02/27/2016 Inactive Urecholine 25 mg tablet RxNorm: 258119 1 Tablet(s) PO TID 11/09/2015 07/18/2016 Inactive phenazopyridine 100 mg tablet RxNorm: 5745645 1 Tablet(s ) PO TID as needed for bladder spasms. 11/08/2015 11/08/2015 Inactive quinapril 10 mg-hydrochlorothiazide 12.5 mg tablet RxNorm: 3 44283 TAKE ONE TABLET BY MOUTH EVERY MORNING 10/15/2015 01/13/2016 Inactive gabapentin 300 mg capsule RxNorm: 044411 1 Tablet(s) PO QD TAKE ONE CAPSULE BY MOUTH EVERY NIGHT AT BEDTIME 09/23/2015 12/21/2015 Inactive quinapril 10 mg-hydrochlorothiazide 12.5 mg tablet RxNorm: 3 43040 Tablet(s) TAKE ONE TABLET BY MOUTH EVERY MORNING 07/14/2015 10/14/2015 Inactive gabapentin 300 mg capsule RxNorm: 482750 1 Tablet(s) PO QD TAKE ONE CAPSULE BY MOUTH EVERY NIGHT AT BEDTIME 06/25/2015 09/23/2015 Inactive prednisone 20 mg tablet RxNorm: 494319 1 Tablet(s) PO QD 06/14/2015 0 06/20/2015 Inactive cephalexin 500 mg capsule RxNorm: 959690 1 Capsule(s) PO BID 201405/27/2015 Inactive mupirocin 2 % topical ointment RxNorm: 202779 TOP BID 05/18/2015 0 06/13/2015 Inactive quinapril 10 mg-hydrochlorothiazide 12.5 mg tablet RxNorm: 3 77974 Tablet(s) TAKE ONE TABLET BY MOUTH EVERY MORNING 04/06/2015 07/14/2015 Inactive gabapentin 300 mg capsule RxNorm: 776333 1 Capsule(s) PO QHS 201404/01/2015 Inactive [SAVINGS FOR NON-COVERED LILIANA GS -- BIN:112193, PCN: ASPROD1, Group: XXXXX, ID# [id number], Questions: . THIS IS NOT INSURANCE.] gabapentin 300 mg capsule RxNorm: 353135 1 Capsule(s) PO QHS 201406/25/2015 Inactive [SAVINGS FOR NON-COVERED LILIANA GS -- BIN:004922, PCN: ASPROD1, Group: XXXXX, ID# [id number], Questions: . THIS IS NOT INSURANCE.] quinapril 10 mg-hydrochlorothiazide 12.5 mg tablet RxNorm: 3 15176 TAKE ONE TABLET BY MOUTH EVERY MORNING 12/11/2014 04/05/2015 Inactive gabapentin 300 mg capsule RxNorm: 555494 1 Capsule(s) PO QHS 201404/02/2015 Inactive [SAVINGS FOR NON-COVERED LILIANA GS -- BIN:690701, PCN: ASPROD1, Group: XXXXX, ID# [id number], Questions: . THIS IS NOT INSURANCE.] cyclobenzaprine 10 mg tablet RxNorm: 287527 1 Tablet(s) PO TID as needed for muscle spasm for muscle spasm 12/02/2014 02/21/2015 Inactive [S AVINGS FOR NON- COVERED DRUGS -- BIN:892655, PCN: ASPROD1, Group: XXXXX, ID# [id number], Questions: . THIS IS NOT INSURANCE.] gabapentin 100 mg capsule RxNorm: 632806 1 Capsule(s) PO QHS 201412/01/2014 Inactive [SAVINGS FOR NON-COVERED LILIANA GS -- BIN:751007, PCN: ASPROD1, Group: XXXXX, ID# [id number], Questions: . THIS IS NOT INSURANCE.] ibuprofen 800 mg tablet RxNorm: 770119 1 Tablet(s) PO T ID as needed low back pain 11/11/2014 11/23/2014 Inactive [SAVINGS FOR NON -COVERED DRUGS -- BIN:667479, PCN: ASPROD1, Group: XXXXX, ID# [id number], Questions: . THIS IS NOT INSURANCE.] ibuprofen 800 mg tablet RxNorm: 406792 1 Tablet(s) PO T ID as needed low back pain 11/09/2014 11/10/2014 Inactive [SAVINGS FOR NON -COVERED DRUGS -- BIN:316092, PCN: ASPROD1, Group: XXXXX, ID# [id number], Questions: . THIS IS NOT INSURANCE.] Zorvolex 35 mg capsule RxNorm: 2169635 1 Tablet(s) PO TID 08/27/2014 10/01/2014 Inactive [SAVINGS FOR UNINSURED PATIENTS -- BIN:0 81308, PCN: ASPROD1, Group: AME08, ID# [id number], Process claim through Pivot[employer], for questions: . THIS IS NOT INSURANCE.] quinapril 10 mg-hydrochlorothiazide 12.5 mg tablet RxNorm: 3 71181 1 Tablet(s) PO QAM 08/27/2014 11/24/2014 Inactive Lidoderm 5 % (700 mg/patch) adhesive patch RxNorm: 4438476 Application TOP for 12hours then off for pain 08/18/2014 02/21/2015 Inactive [SAVIN GS FOR UNINSURED PATIENTS -- BIN:135509, PCN: ASPROD1, Group: [id number], ID# [id number], Process claim through P[employer], for questions: . THIS IS NOT INSURANCE.] Zorvolex 35 mg capsule RxNorm: 5717087 1 Tablet(s) PO TID 08/13/2014 08/12/2014 Inactive Zorvolex 35 mg capsule RxNorm: 1571598 1 Tablet(s) PO TID 08/13/2014 08/24/2014 Inactive [SAVINGS FOR UNINSURED PATIENTS -- BIN:0 85611, PCN: ASPROD1, Group: AME08, ID# [id number], Process claim through P[employer], for questions: . THIS IS NOT INSURANCE.] Aspirin Child 81 mg chewable tablet RxNorm: 882219 1 Tablet(s) PO QD No Start Date Active ibuprofen 800 mg tablet RxNorm: 142173 1 Tablet(s) PO T ID as needed low back pain No Start Date 11/08/2014 Inactive cyclobenzaprine 10 mg tablet RxNorm: 739664 1 Tablet(s) PO TID No S tart Date 08/12/2017 Inactive garlic 1,000 mg capsule RxNorm: 515687 1 Capsule(s) PO QD No Start Date 04/22/2019 Inactive tramadol 50 mg tablet RxNorm: 842193 1 Tablet(s) PO Q4-6H as ne eded for pain No Start Date 02/21/2015 Inactive tramadol 50 mg tablet RxNorm: 506230 1 Tablet(s) PO TID as needed for pain along with two tylenol No Start Date 01/07/2019 Inactive krill oil oral RxNorm: 12138 oral No Start Date 11/11/2018 Inacti ve Vitamin D3 2,000 unit tablet RxNorm: 380830 1 Tablet(s) PO QD No St art Date 08/12/2019 Inactive gabapentin 100 mg tablet RxNorm: 132207 1 Tablet(s) PO QD No Start Date 11/10/2014 Inactive Zofran 4 mg tablet RxNorm: 761035 1 Tablet(s) PO Q6H as needed No S tart Date 08/12/2019 Inactive Elimite 5 % topical cream RxNorm: 699484 1 Application TOP QHS apply head to toe and was off in morning No Start Date 05/18/2019 Inactive gabapentin 100 mg capsule RxNorm: 108783 1 Capsule(s) PO QHS No Sta rt Date 11/10/2014 Inactive aspirin 325 mg tablet RxNorm: 116135 2 Tablet(s) PO QD No Start Date 08/17/2014 Inactive Fish Oil 1,000 mg capsule RxNorm: 1 Capsule(s) PO QD No Start Date 10/08/2018 Inactive quinapril 10 mg-hydrochlorothiazide 12.5 mg tablet RxNorm: 3 25694 1 Tablet(s) PO QAM No Start Date 08/26/2014 Inactive quinapril 40 mg tablet RxNorm: 120434 1 Tablet(s) PO QD No Start Da te 10/23/2017 Inactive Medrol (Daniel) 4 mg tablets in a dose pack RxNorm: 260651 Tablet(s) PO As Directed No Start Date 05/05/2018 Inactive Urecholine 25 mg tablet RxNorm: 669154 1 Tablet(s) PO TID No Start Date 11/08/2015 Inactive cyclobenzaprine 10 mg tablet RxNorm: 473100 1/2-1 Table t(s) PO TID as needed for muscle spasm No Start Date 12/01/2014 Inactive tamsulosin 0.4 mg capsule RxNorm: 096397 2 Capsule(s) PO QPM No Sta rt Date 08/12/2019 Inactive hydrocodone 5 mg-acetaminophen 325 mg tablet RxNorm: 377239 1 -2 Tablet(s) PO Q6H as needed No Start Date 05/20/2019 Inactive loratadine 10 mg tablet RxNorm: 491220 1 Tablet(s) PO QD No Start D ate 07/07/2014 Inactive Medication Administered No Medication Administered data Immunizations Vaccine Codes Date Status Influenza CVX: 141 07/21/2019 Results Observation Observation Code Item Item Code Result Date S ervice Location CULTURE, URINE, ROUTINE 395 CULTURE SEE NOTE 1 10/15/2018 Zay Becerra [address] [place] [address] CULTURE, URINE, ROUTINE 395 CULTURE, URINE, ROUTINE SEE NOTE 08/15/[address] [address] CBC (H/H, RBC, INDICES, WBC, PLT) 48504 WHITE BLOOD CELL COU NT 7.9 Thousand/uL 08/14/2019 [facility] [address] CBC (H/H, RBC, INDICES, WBC, PLT) 80791 RED BLOOD CELL COUNT 4.93 Million/uL 08/14/[address] [address] CBC (H/H, RBC, INDICES, WBC, PLT) 35084 HEMOGLOBIN 15 .4 g/dL 08/14/2019 [facility] [address] CBC (H/H, RBC, INDICES, WBC, PLT) 93037 HEMATOCRIT 45 .0 % 08/14/2019 [facility] [address] [address] CBC (H/H, RBC, INDICES, WBC, PLT) 84132 MCV 91 .3 fL 08/14/[address] [address] CBC (H/H, RBC, INDICES, WBC, PLT) 50053 MCH 31 .2 pg 08/14/2019 [facility] [address] CBC (H/H, RBC, INDICES, WBC, PLT) 45422 MCHC 34 .2 g/dL 08/14/2019 [facility] [address] [address] CBC (H/H, RBC, INDICES, WBC, PLT) 52920 RDW 12 .7 % 08/14/2019 [facility] [address] CBC (H/H, RBC, INDICES, WBC, PLT) 67913 PLATELET COUNT 214 Thousand/uL 08/14/[address] [address] CBC (H/H, RBC, INDICES, WBC, PLT) 72598 MPV 11 .5 fL 08/14/[address] [address] COMPREHENSIVE METABOLIC PANEL 27656 Glucose 113 mg /dL 08/14/[facility] [address] [address] COMPREHENSIVE METABOLIC PANEL 84773 UREA NITROGEN (BUN) 16 mg/dL 08/14/2019 [facility] [address] [address] COMPREHENSIVE METABOLIC PANEL 75299 CREATININE 0.86 m g/dL 08/14/2019 [facility] [address] [address] COMPREHENSIVE METABOLIC PANEL 70508 eGFR NON-AFR. ZIMBABWEAN 92 mL/min/1.73m2 08/14/2019 [facility] [address] COMPREHENSIVE METABOLIC PANEL 18814 eGFR 106 mL/min/1.73m2 08/14/2019 [facility] [address] COMPREHENSIVE METABOLIC PANEL 07767 BUN/CREATININE RATIO NOT APPLICABLE (calc) 08/14/2019 [facility] [address] [address] COMPREHENSIVE METABOLIC PANEL 87096 SODIUM 141 mm ol/L 08/14/2019 [facility] [address] COMPREHENSIVE METABOLIC PANEL 03406 POTASSIUM 4.1 mm ol/L 08/14/2019 [facility] [address] COMPREHENSIVE METABOLIC PANEL 46704 CHLORIDE 102 mm ol/L 08/14/2019 [facility] [address] COMPREHENSIVE METABOLIC PANEL 84957 CARBON DIOXIDE 28 mmol/L 08/14/2019 [facility] [address] [address] COMPREHENSIVE METABOLIC PANEL 34404 CALCIUM 9.7 mg /dL 08/14/2019 [facility] [address] COMPREHENSIVE METABOLIC PANEL 58299 PROTEIN, TOTAL 6. 7 g/dL 08/14/2019 [facility] [address] COMPREHENSIVE METABOLIC PANEL 91019 ALBUMIN 4.3 g/ dL 08/14/2019 [facility] [address] COMPREHENSIVE METABOLIC PANEL 49296 GLOBULIN 2.4 g/ dL(calc) 08/14/2019 [facility] [address] COMPREHENSIVE METABOLIC PANEL 59921 ALBUMIN/GLOBULIN RATIO 1.8 (calc) 08/14/[address] [facility] [address] COMPREHENSIVE METABOLIC PANEL 91490 BILIRUBIN, TOTAL 1.0 mg/dL 08/14/[address] [address] COMPREHENSIVE METABOLIC PANEL 52804 ALKALINE PHOSPHATASE 56 U/L 08/14/2019 [facility] [address] COMPREHENSIVE METABOLIC PANEL 10048 AST 18 U/L 08/14/2019 [facility] [address] COMPREHENSIVE METABOLIC PANEL 45425 ALT 28 U/L 08/14/[address] [facility] [address] MAGNESIUM 53515 MAGNESIUM 2.0 mg/dL 06/06/[address] [facility] [address] COMPREHENSIVE METABOLIC PANEL 97647 Glucose 106 mg /dL 06/06/2019 [facility] [address] COMPREHENSIVE METABOLIC PANEL 29545 UREA NITROGEN (BUN) 22 mg/dL 06/06/[address] [facility] [address] COMPREHENSIVE METABOLIC PANEL 13071 CREATININE 1.29 m g/dL 06/06/2019 [facility] [address] [address] COMPREHENSIVE METABOLIC PANEL 23832 eGFR NON-AFR. ZIMBABWEAN 58 mL/min/1.73m2 06/06/2019 [facility] [address] COMPREHENSIVE METABOLIC PANEL 08159 eGFR 67 mL/min/1.73m2 06/06/2019 [facility] [address] COMPREHENSIVE METABOLIC PANEL 14983 BUN/CREATININE RATIO 17 (calc) 06/06/2019 [facility] [address] COMPREHENSIVE METABOLIC PANEL 32300 SODIUM 138 mm ol/L 06/06/2019 [facility] [address] COMPREHENSIVE METABOLIC PANEL 90577 POTASSIUM 4.2 mm ol/L 06/06/2019 [facility] [address] COMPREHENSIVE METABOLIC PANEL 37996 CHLORIDE 101 mm ol/L 06/06/2019 [facility] [address] COMPREHENSIVE METABOLIC PANEL 66233 CARBON DIOXIDE 29 mmol/L 06/06/2019 [facility] [address] COMPREHENSIVE METABOLIC PANEL 31912 CALCIUM 9.6 mg /dL 06/06/2019 [facility] [address] COMPREHENSIVE METABOLIC PANEL 19171 PROTEIN, TOTAL 6. 9 g/dL 06/06/2019 [facility] [address] COMPREHENSIVE METABOLIC PANEL 00340 ALBUMIN 4.4 g/ dL 06/06/2019 [facility] [address] COMPREHENSIVE METABOLIC PANEL 02024 GLOBULIN 2.5 g/ dL(calc) 06/06/2019 [facility] [address] COMPREHENSIVE METABOLIC PANEL 48955 ALBUMIN/GLOBULIN RATIO 1.8 (calc) 06/06/2019 [facility] [address] COMPREHENSIVE METABOLIC PANEL 13464 BILIRUBIN, TOTAL 0.7 mg/dL 06/06/2019 [facility] [address] COMPREHENSIVE METABOLIC PANEL 29827 ALKALINE PHOSPHATASE 45 U/L 06/06/2019 [facility] [address] COMPREHENSIVE METABOLIC PANEL 55821 AST 21 U/L 06/06/2019 [facility] [address] COMPREHENSIVE METABOLIC PANEL 80307 ALT 34 U/L 06/06/2019 [facility] [address] CULTURE, URINE, ROUTINE 395 CULTURE, URINE, ROUTINE SEE NOTE 04/23/2019 [facility] [address] CULTURE, URINE, ROUTINE 395 CULTURE SEE NOTE 0 04/23/2019 [facility] [address] [address] EXTRA 1014 EXTRA TUBE RECEIVED 04/22 [facility] [address] [address] EXTRA 1014 SPECIMEN TYPE RECEIVED: LAV 0 04/22/[address] [facility] [address] [address] COMPREHENSIVE METABOLIC PANEL 71881 Glucose 94 mg/ dL 04/22/2019 [facility] [address] [address] COMPREHENSIVE METABOLIC PANEL 67650 UREA NITROGEN (BUN) 20 mg/dL 04/22/2019 [facility] [address] [address] COMPREHENSIVE METABOLIC PANEL 30926 CREATININE 1.30 m g/dL 04/22/[address] [address] COMPREHENSIVE METABOLIC PANEL 08220 eGFR NON-AFR. ZIMBABWEAN 58 mL/min/1.73m2 04/22/2019 [facility] [address] [address] COMPREHENSIVE METABOLIC PANEL 83483 eGFR 67 mL/min/1.73m2 04/22/2019 [facility] [address] [address] COMPREHENSIVE METABOLIC PANEL 64758 BUN/CREATININE RATIO 15 (calc) 04/22/2019 [facility] [address] [address] COMPREHENSIVE METABOLIC PANEL 11063 SODIUM 139 mm ol/L 04/22/2019 [facility] [address] [address] COMPREHENSIVE METABOLIC PANEL 65043 POTASSIUM 4.2 mm ol/L 04/22/2019 [facility] [address] [address] COMPREHENSIVE METABOLIC PANEL 40109 CHLORIDE 104 mm ol/L 04/22/2019 [facility] [address] [address] COMPREHENSIVE METABOLIC PANEL 41438 CARBON DIOXIDE 27 mmol/L 04/22/2019 [facility] [address] COMPREHENSIVE METABOLIC PANEL 91498 CALCIUM 9.9 mg /dL 04/22/2019 [facility] [address] [address] COMPREHENSIVE METABOLIC PANEL 81120 PROTEIN, TOTAL 7. 1 g/dL 04/22/2019 [facility] [address] [address] COMPREHENSIVE METABOLIC PANEL 92515 ALBUMIN 4.6 g/ dL 04/22/[address] [address] COMPREHENSIVE METABOLIC PANEL 19784 GLOBULIN 2.5 g/ dL(calc) 04/22/[address] [address] COMPREHENSIVE METABOLIC PANEL 14200 ALBUMIN/GLOBULIN RATIO 1.8 (calc) 04/22/[address] [address] COMPREHENSIVE METABOLIC PANEL 66128 BILIRUBIN, TOTAL 0.4 mg/dL 04/22/[address] [address] COMPREHENSIVE METABOLIC PANEL 59225 ALKALINE PHOSPHATASE 53 U/L 04/22/[address] [address] COMPREHENSIVE METABOLIC PANEL 49978 AST 21 U/L 04/22/2019 [facility] [address] COMPREHENSIVE METABOLIC PANEL 21043 ALT 34 U/L 04/22/[address] [address] CULTURE, URINE, ROUTINE 395 CULTURE, URINE, ROUTINE SEE NOTE 01/31/[address] [address] Procedures Procedure Codes Date URINALYSIS NONAUTO W/O SCOPE CPT-4: 12973 10/02/2019 URINE CULTURE/ COLONY COUNT CPT-4: 86341 10/02/2019 ROUTINE VENIPUNCTURE CPT-4: 69322 08/13/2019 URINALYSIS NONAUTO W/O SCOPE CPT-4: 16665 08/13/2019 CULTURE, URINE, ROUTINE CPT-4: 395 08/13/2019 COMPREHENSIVE METABOLIC PANEL CPT-4: 04144 08/13/2019 CBC (H/H, RBC, INDICES, WBC, PLT) CPT-4: 28304 2018 COMPREHENSIVE METABOLIC PANEL CPT-4: 72803 06/05/2019 MAGNESIUM CPT-4: 74909 06/05/2019 DEXAMETHASONE SODIUM PHOS CPT-4: J1100 05/21/2019 THER/PROPH/DIAG INJ SC/IM CPT-4: 95788 05/21/2019 TRIAMCINOLONE ACET INJ NOS CPT-4: J3301 05/21/2019 ROUTINE VENIPUNCTURE CPT-4: 25389 04/21/2019 COMPREHENSIVE METABOLIC PANEL CPT-4: 91418 04/21/2019 EXTRA CPT-4: 1014 04/21/2019 CULTURE, URINE, ROUTINE CPT-4: 395 04/21/2019 URINALYSIS NONAUTO W/O SCOPE CPT-4: 82505 04/21/2019 URINALYSIS NONAUTO W/O SCOPE CPT-4: 98100 01/29/2019 CULTURE, URINE, ROUTINE CPT-4: 395 01/29/2019 DRAIN/INJECT JOINT/BURSA CPT-4: 84950 02/19/2018 TRIAMCINOLONE ACET INJ NOS CPT-4: J3301 02/19/2018 DEXAMETHASONE SODIUM PHOS CPT-4: J1100 02/19/2018 THER/PROPH/DIAG INJ SC/IM CPT-4: 36186 02/12/2018 TRIAMCINOLONE ACET INJ NOS CPT-4: J3301 02/12/2018 DEXAMETHASONE SODIUM PHOS CPT-4: J1100 02/12/2018 CEFTRIAXONE SODIUM INJECTION CPT-4: J0696 12/03/2017 THER/PROPH/DIAG INJ SC/IM CPT-4: 76533 12/03/2017 THER/PROPH/DIAG INJ SC/IM CPT-4: 25579 12/03/2017 METHYLPREDNISOLONE INJECTION CPT-4: J2930 12/03/2017 URINALYSIS NONAUTO W/O SCOPE CPT-4: 50208 08/13/2017 STREP A ASSAY W/OPTIC CPT-4: 02823 02/13/2017 DESTRUCT PREMALG LESION (Cryosurgery) CPT-4: 90949 Vital Signs Date Vital 10/02/2019 Blood Pressure [...] 1: 128/78 Code: 8480-6 BMI: 36.0 Code: 58941-9 Heart Rate 1: 68 bpm Height: 5'7" [...] 1: 138/86 Code: 8480-6 BMI: 35.6 Code: 48934-0 Heart Rate 1: 68 bpm Height: 5'7" SpO2: 95% Temperature: 36.6 (C) / 97.8 (F) Weight: 227 lbs 12/03/2017 Blood Pressure 1: 134/84 Code: 8480-6 BMI: 34.3 Code: 49500-0 Heart Rate 1: 68 bpm Height: 5'7" Respiratory Rate: 20 bpm SpO2: 96% Tempera ture: 35.9 (C) / 96.6 (F) Weight: 219 lbs 09/11/2017 Blood Pressure 1: 140/86 Code: 8480-6 BMI: 34.9 Code: 44815-7 Heart Rate 1: 84 bpm Height: 5'7" Respiratory Rate: 20 bpm SpO2: 95% Tempera ture: 36.7 (C) / 98.1 (F) Weight: 223 lbs 08/13/2017 Blood Pressure 1: 142/94 Code: 8480-6 BMI: 34.5 Code: 91508-4 Heart Rate 1: 76 bpm Height: 5'7" Respiratory Rate: 20 bpm SpO2: 96% Tempera ture: 37.1 (C) / 98.8 (F) Weight: 220 lbs 11/17/2016 Blood Pressure 1: 118/78 Code: 8480-6 He art Rate 1: 64 bpm 07/19/2016 Blood Pressure 1: 112/58 Code: 8480-6 BMI: 31.6 Code: 16487-9 Heart Rate 1: 88 bpm Height: 5'7" Respiratory Rate: 22 bpm SpO2: 98% Tempera ture: 36.3 (C) / 97.4 (F) Weight: 202 lbs 06/09/2016 Blood Pressure 1: 138/84 Code: 8480-6 BMI: 32.1 Code: 44812-4 Heart Rate 1: 58 bpm Height: 5'7" Respiratory Rate: 20 bpm SpO2: 97% Tempera ture: 36.6 (C) / 97.8 (F) Weight: 205 lbs 11/08/2015 Blood Pressure 1: 142/80 Code: 8480-6 BMI: 32.4 Code: 94043-1 Heart Rate 1: 76 bpm Height: 5'7" Respiratory Rate: 20 bpm Temperature: 36 .6 (C) / 97.9 (F) Weight: 207 lbs 06/14/2015 Blood Pressure 1: 126/80 Code: 8480-6 Heart Rate 1: 84 bpm Respiratory Rate: 20 bpm Temperature: 36.8 (C) / 98.2 (F) Weight: 206 lbs 05/18/2015 Blood Pressure 1: 124/80 Code: 8480-6 BMI: 32.3 Code: 65473-5 Heart Rate 1: 68 bpm Height: 5'7" Respiratory Rate: 20 bpm Temperature: 36 .4 (C) / 97.6 (F) Weight: 206 lbs 02/22/2015 Blood Pressure 1: 126/78 Code: 8480-6 BMI: 32.1 Code: 83919-3 Heart Rate 1: 76 bpm Height: 5'7" Respiratory Rate: 20 bpm Temperature: 36 .6 (C) / 97.9 (F) Weight: 205 lbs 12/02/2014 Blood Pressure 1: 124/80 Code: 8480-6 BMI: 32.7 Code: 64130-0 Heart Rate 1: 70 bpm Height: 5'7" Respiratory Rate: 18 bpm Temperature: 36 .6 (C) / 97.9 (F) Weight: 209 lbs 08/18/2014 Blood Pressure 1: 132/94 Code: 8480-6 BMI: 34.5 Code: 70825-3 Heart Rate 1: 84 bpm Height: 5'6" Respiratory Rate: 20 bpm Temperature: 36 .6 (C) / 97.9 (F) Weight: 217 lbs 07/08/2014 Blood Pressure 1: 142/88 Code: 8480-6 BMI: 34.3 Code: 93046-7 Heart Rate 1: 72 bpm Height: 5'6" [...] Visit Encounters Encounter Performer Location Codes Date ([id number]) OFFICE/OUTPATIENT VISIT EST Diagnosis: Suprapubic abdominal pain[ICD10: R10.2] Diagnosis: Aortic regurgitation[ICD10: I35.1] Sapna GAUTAM SAmarjit LIVE DO [facility] CPT-4: 92962 10/02/2019 ([id number]) OFFICE/OUTPATIENT VISIT EST Diagnosis: Chest pain[ICD10: R07.9] Lashell BETANCUR [facility] CPT-4: 06951 08/25/2019 ([id number]) OFFICE/OUTPATIENT VISIT EST Diagnosis: Thoracic back pain[ICD10: M54.6] Diagnosis: Disorder of kidney and ureter, unspecified[ICD10: N28.9] Diagnosis: Personal history of nicotine dependence[ICD10: Z87.891] 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] Lashell AU DO [facility] CPT-4: 98673 08/13/2019 ([id number]) OFFICE/OUTPATIENT VISIT EST Diagnosis: Sigmoid diverticulitis[ICD10: K57.32] Diagnosis: Renal insufficiency[ICD10: N28.9] Diagnosis: Jock itch[ICD10: B35.6] Sapna COATSND EDVIN MARIE [facility] CPT-4: 83778 07/03/2019 ([id number]) OFFICE/OUTPATIENT VISIT EST Diagnosis: Cramp and spasm[ICD10: R25.2] Diagnosis: Disorder of kidney and ureter, unspecified[ICD10: N28.9] Lsahell LIVE DO [facility] CPT-4: 73065 06/05/2019 ([id number]) OFFICE/OUTPATIENT VISIT EST Diagnosis: Other pruritus[ICD10: L29.8] Diagnosis: Pain in right knee[ICD10: M25.561] Lashell GAUTAM SAmarjit LIVE DO [facility] CPT-4: 70809 05/21/2019 ([id number]) NURSE/OUTPATIENT VISIT EST Diagnosis: Edema, unspecified[ICD10: R60.9] Sapna COATSNDER [facility] CPT-4: 35863 04/21/2019 ([id number]) OFFICE/OUTPATIENT VISIT EST Diagnosis: Diverticulitis of large intestine without perforation or abscess without bleeding[ICD10: K57.32] Diagnosis: Snoring[ICD10: R06.83] Diagnosis: Other constipation[ICD10: K59.09] Lashell LIVE [employer] [facility] CPT-4: 49335 02/24/2019 ([id number]) OFFICE/OUTPATIENT VISIT EST Diagnosis: Diverticulitis of large intestine without perforation or abscess with bleeding[ICD10: K57.33] Nancy LIVE [employer] [facility] CPT-4: 88414 02/04/2019 ([id number]) OFFICE/OUTPATIENT VISIT EST Diagnosis: Left lower quadrant pain[ICD10: R10.32] Nancy LIVE [employer] [facility] CPT-4: 59743 01/29/2019 OFFICE/OUTPATIENT VISIT EST Diagnosis: Dermatitis, unspecified[ICD10: L30.9] Diagnosis: Gastro-esophageal reflux disease without esophagitis[ICD10: K21.9] Diagnosis: Palpitations[ICD10: R00.2] Sapna AU [employer] [facility] CPT-4: 60659 12/19/2018 ([id number]) OFFICE/OUTPATIENT VISIT EST Diagnosis: Gastro-esophageal reflux disease without esophagitis[ICD10: K21.9] Diagnosis: Dysphagia, pharyngoesophageal phase[ICD10: R13.14] Sapna [employer] [facility] CPT-4: 67394 11/11/2018 ([id number]) PREV VISIT EST AGE 40-64 Diagnosis: Encounter [...] disorders of digestive system[ICD10: K91.89] Lashell [employer] [facility] CPT-4: 99 396 10/09/2018 ([id number]) OFFICE/OUTPATIENT VISIT EST Diagnosis: Pain in right knee[ICD10: M25.561] Diagnosis: Pain in right hip[ICD10: M25.551] Lashell LIVE DO [facility] CPT-4: 40567 02/12/2018 OFFICE/OUTPATIENT VISIT EST Diagnosis: Essential (primary) hypertension[ICD10: I10] Diagnosis: Other chest pain[ICD10: R07.89] Lashell LIVE DO [facility] CPT-4: 16663 12/03/2017 ([id number]) OFFICE/OUTPATIENT VISIT EST Diagnosis: Essential (primary) hypertension[ICD10: I10] Sapna LIVE DO [facility] CPT-4: 69711 09/11/2017 ([id number]) PREV VISIT EST AGE 40-64 Diagnosis: Encounter for general adult medical examination without abnormal findings[ICD10: Z00.00] Diagnosis: Essential (primary) hypertension[ICD10: I10] Diagnosis: Left lower quadrant pain[ICD10: R10.32] Diagnosis: Left upper quadrant pain[ICD10: R10.12] Diagnosis: Other intervertebral disc degeneration, 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] Sapna [employer] [facility] CPT-4: 52300 08/13/2017 ([id number]) OFFICE/OUTPATIENT VISIT EST Diagnosis: Acute pharyngitis, unspecified[ICD10: J02.9] Sapna LIVE DO [facility] CPT-4: 25627 02/13/2017 ([id number]) PREV VISIT EST AGE 40-64 Diagnosis: Encounter for general adult medical examination without abnormal findings[ICD10: Z00.00] Diagnosis: Essential (primary) hypertension[ICD10: I10] 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] Sapna LIVE DO [facility] CPT-4: 71288 07/19/2016 OFFICE/OUTPATIENT VISIT EST Diagnosis: Pain in thoracic spine[ICD10: M54.6] Diagnosis: Disorder of the skin and subcutaneous tissue, unspecified[ICD10: L98.9] Sobia WoodChiragAdrián BRUNSONLINE JefryAmarjit QUINTONNDER [employer] [facility] CPT-4: 25741 06/09/2016 OFFICE/OUTPATIENT VISIT EST Diagnosis: Retention of urine, unspecified[ICD10: R33.9] Diagnosis: Urinary tract infection, site not specified[ICD10: N39.0] Chelsie NoriegaAlysiaoscar BRUNSONLINE JefryAmarjit QUINTONNDER [employer] [facility] CPT-4: 59100 11/08/2015 ([id number]) OFFICE/OUTPATIENT VISIT EST Diagnosis: DERMATITIS NOS[ICD9: 692.9] Diagnosis: SEBACEOUS CYST[ICD9: 706.2] Sapna uQintonclaudio BOSCH [employer] CPT-4: 08402 06/14/2015 OFFICE/OUTPATIENT VISIT EST Diagnosis: LOCAL SKIN INFECTION[ICD9: 686.9] Diagnosis: FOLLICULITIS[ICD9: 704.8] Chelsie NoriegaAlysiaoscar BRUNSONLINE JefryAmarjit QUINTON NDER [employer] [facility] CPT-4: 43810 05/18/2015 ([id number]) OFFICE/OUTPATIENT VISIT EST Diagnosis: Constipation[ICD9: 564.00] Sapna Quintonclaudio SAPNA S. 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 OR ANGELY [employer] CPT-4: 16903 07/08/2014 ([id number]) OFFICE/OUTPATIENT VISIT NEW Diagnosis: HYPERTENSION[ICD9: 401.9] Diagnosis: GERD[ICD9: 530.81] [facility] CPT-4: 15393 07/08/2014 Plan of Care Planned Activity Notes [...] : I35.1 10/02/2019 Appointment: Sapna Live WPtel: [facility] FOLLOW UP 10/02/2019 Care Plan: Referral Order SNOMED-CT : [id number] Pending 10/02/2019 Visit Diagnosis Plan: Chest pain Discussion: will star t with cxray and rib xray. discussed that could be lung, rib, muscle but will start with cxray and patient may need echo. he verbalized understanding. ICD-9 : 786.50 ICD-10 : R07.9 08/25/2019 Appointment: Lashell Joe [address] [place], [place] [id number] ACUTE ILLNESS 08/25/2019 Visit Diagnosis Plan: Thoracic back pain Discussion: c hronic pain. will refer to dr. stallings at [place] for evaluation and treatment ICD-9 : 724.1 [...] ct of lungs to be done at [facility]. ICD-9 : V15.82 ICD-10 : [...] : E27.8 08/13/2019 Appointment: Lashell Joe [address] [place], [place] [id number] [place] FOLLOW UP 08/13/2019 Visit Diagnosis Plan: Sigmoid diverticulitis Discussio n: Bactrim/Flagyl [place] diet To ER this weekend if worsening ICD-9 : 562.11 ICD-10 : K57.32 07/03/2019 Visit Diagnosis Plan: Jock itch Discussion: Diflucan a nd topical nystatin ICD-9 : 110.3 ICD-10 : B35.6 07/03/2019 Visit Diagnosis Plan: Renal insufficiency Discussion: Labs discussed Continue off NSAIDS Hydrate Recheck Chemistry 3mos ICD-9 : 593.9 ICD-10 : N28.9 07/03/2019 Appointment: Sapna Live WPtel: [phone] [facility] [place] FOLLOW UP 07/03/2019 Patient Education: fluconazole- [employer] [id number] Completed 07/03/2019 Patient Education: nystatin- [employer] [id number] Completed 07/03/2019 Visit Diagnosis Plan: Disorder of [...] ICD-10 : R25.2 06/05/2019 Appointment: Lashell Joe [address] [place] [address] NO SHOW - FORGIVEN 06/05/2019 Appointment: Lashell Joe [address] [place] [address] ACUTE ILLNESS 06/05/2019 Visit Diagnosis Plan: Other [...] ICD-10 : M25.561 05/21/2019 Appointment: Lashell Joe [address] [place] [address] ACUTE ILLNESS 05/21/2019 Patient Education: hydroxyzine HCl- [employer] [id number] [email or web address] Completed 05/21/2019 Appointment: Sapna Live WPtel: [address] [place] [address] 05/19/19 1645---see note put in chart today (km) CANCELED 05/19/2019 Appointment: Sapna Live WPtel: [address] [place] [address] [place] CANCELED 05/05/2019 Appointment: Sapna Live WPtel: [address] [place] [address] [place] UA 04/21/2019 Visit Diagnosis Plan: Diverticulitis [...] ICD-10 : K59.09 02/24/2019 Appointment: Lashell Joe [address] [place] [address] Hospital Follow Up 02/24/2019 Visit Diagnosis Plan: Diverticulitis of large intestine without perforation or abscess with bleeding Discussion: Continue flagyl and cipro. A dvance diet to bland. BRAT diet advised. Avoid nuts, seeds, popcorn, roughage. RTC if abdominal pain worsens or does not improve. ICD-9 : 562.13 ICD-10 : K57.33 02/04/2019 Appointment: Nancy Mendiola [address] [place] [address] FOLLOW UP 02/04/2019 Visit Diagnosis Plan: Left lower quadrant pain Discuss ion: CT abdomen and pelvis- pending. Continue Bactrim. UA shows trace hematuria- will r/o kidney stone vs. diverticulitis. Urine sent for culture. Patient instructed to go to ED [facility] with worsening symptoms. No work until called with results of CT scan. Patient states understanding. ICD-9 : 789.04 ICD-10 : R10.32 01/29/2019 Appointment: Nancy Mendiola [address] [place], [place] [address] ACUTE ILLNESS 01/29/2019 Care Plan: CT PELVIS [...] : L30.9 12/19/2018 Appointment: Sapna Live WPtel: [address] [place] [address] ACUTE ILLNESS 12/19/2018 Visit Diagnosis Plan: Gastro-esophageal reflux disease without esophagitis Discussion: Continue protonix at 40mg daily Hold mobic No NSAIDS Hold all MVs If persists then will need EGD ICD-9 : 530.81 ICD-10 : K21.9 11/11/2018 Appointment: Sapna Live WPtel: [address] [place], [place] [phone] FOLLOW UP 11/11/2018 Visit Diagnosis Plan: Encounter for [facility] adult medical examination without abnormal [...] : Z12.2 10/09/2018 Appointment: Lashell Joe [address] [id number] Annual Well Visit 10/09/2018 Patient Education: gabapentin- [employer] C[employer]on [id number] Completed 10/09/2018 Patient Education: Kegel Exercises Comple catalina 10/09/2018 Patient Education: High Blood Pressure Co mpleted 10/09/2018 Visit Diagnosis Plan: Pain in right knee Discussion: c orticosteroid injection administered as described above. patient tolerated well. instructed to rtc in 3- 4 months if needed for additional injection. ICD-9 : 719.46 ICD-10 : M25.561 02/19/2018 Appointment: Lashell Joe [facility] [address] AT[address] [id number] OFFICE SURGERY 02/19/2018 Patient Education: Patient Medication [...] : M25.561 02/12/2018 Appointment: Lashell Joe [address] [place] [address] ACUTE ILLNESS 02/12/2018 Patient Education: Patient Medication Summary Completed 02/12/2018 Care Plan: X-RAY EXAM OF KNEE 1 [place] 2 [place] : [address]-7 Pending 02/12/2018 Visit Diagnosis Plan: Other chest [...] ICD-10 : I10 12/03/2017 Appointment: Lashell Joe [address] [place], [place] [phone] ESTABLISHED PATIENT 12/03/2017 Patient Education: Patient Medication Summary Completed 12/03/2017 Visit Diagnosis Plan: Essential (primary) hypertension Discussion: Increase quinapril to 40mg daily BP check in 1month ICD-9 : 401.9 ICD-10 : I10 09/11/2017 Appointment: Sapna Livetel: [address] [place], [place] [phone] FOLLOW UP 09/11/2017 Patient Education: Patient Medication Summary Completed 09/11/2017 Appointment: Sapna Livetel: [phone] [facility] [place] RESCHEDULED 08/22/2017 Visit Diagnosis Plan: Left lower quadrant pain Discuss ion: Update colonoscopy ICD-9 : 789.04 ICD-10 : R10.32 08/13/2017 Visit Diagnosis Plan: Essential (primary) hypertension Discussion: Increase quinapril to 20mg daily Follow Up: 1 months ICD-9 : 401.9 ICD-10 : I10 08/13/2017 Visit Diagnosis Plan: Encounter for [facility] adult medical examination without abnormal findings Discussion: Update fasting lab ICD-9 : V70.9 ICD-10 : Z00.00 08/13/2017 Appointment: Sapna Live WPtel: [phone] [facility] Annual Well Visit 08/13/2017 Patient Education: Patient Medication Summary Completed 08/13/2017 Appointment: Sapna Live WPtel: [phone] [facility] THROAT SWAB 02/13/2017 Patient Education: Patient Medication Summary Completed 02/13/2017 Appointment: Sapna Live WPtel: [phone] [facility] BP CHECK 11/17/2016 Patient Education: Patient Medication Summary Completed 11/17/2016 Visit Plan: Due for colonoscopy in 2018 Had shingles shot and flu shot Change quinapril hct to plain quinapril and see if muscles twitches improve Fwup with Dr. Braga Lab discussed Discussed diet/exercise at length Check CT abdomen Recheck 3mos 07/19/2016 Appointment: Sapna Live WPtel: [phone] [facility] 07/18 confirmed`sl PHYSICAL 07/19/2016 Patient Education: Patient [...] earliest convenience 06/09/2016 Appointment: Sobia Monreal WPtel: [address] [place] [address] ACUTE ILLNESS 06/09/2016 Patient Education: Patient Medication Summary Completed 06/09/2016 Referral: Demario Braga WPtel: [address] [place] [address] [place] Referral Initiated 11/12/2015 Visit Plan: Continue indwelling catheter until follow-up with Dr. Braga Continue Bactrim and Cipro Pyridium TID for Bladder spasms 11/08/2015 Appointment: Chelsie Teixeira WPtel: [address] [place] [address] ER Follow UP 11/08/2015 Patient Education: Patient Medication Summary Completed 11/08/2015 Referral: Abdiel Tucker WPtel: [address] [place] [address] Referral Initiated 06/21/2015 Visit Plan: Prednisone 20mg daily for 1w [place] See surgery of cyst removal 06/14/2015 Appointment: Sapna Live WPtel: [address] [place] [address] 06/11 vm cn 06/14 cn FOLLOW UP 2014 Patient Education: Patient Medication Summary Completed 06/14/2015 Visit Plan: Warm moist compresses to Lef t shoulder lesion and apply topical Mupirocin twice daily Complete Cephalexin x 7 days as directed Resume Culturelle daily 05/18/2015 Appointment: Chelsie Teixeira WPtel: [address] [place] [place] [id number] 05/18/2015 Patient Education: Patient Medication Summary Completed 05/18/2015 Visit Plan: Check fasting lab Use pain m eds prn with miralax on the day that takes pain meds 02/22/2015 Appointment: Sapna Live WPtel: [address] [place] [address] 02/19 vm cn 02/19 appt confirmed-lb ACUTE ILLNESS 5 Patient Education: Patient Medication Summary Completed 02/22/2015 Visit Plan: Increase neurontin to 300mg q HS Continue flexeril and tramadol Call in 1mo on how higher dose of gabapentin 12/02/2014 Appointment: Sapna Live WPtel: [address] [place] [address] FOLLOW UP 12/02/2014 Patient Education: Patient Medication Summary Completed 12/02/2014 Referral: Eric Angelo WPtel: [facility] [place] [address] [place] Referral Appointment Confirmed 09/15/2014 Visit Plan: Proceed with pain doctor for possible injection vs nerve block Trial of lidoderm patch Cryotherapy to lesions as above 08/18/2014 Appointment: Sapna Live WPtel: [address] [place] [address] ACUTE ILLNESS 08/18/2014 Patient Education: Patient Medication Summary Completed 08/18/2014 Patient Education: Patient Medication Summary Completed 08/13/2014 Visit Plan: Continue current meds Obtain most recent lab results Check thoracic spine x-rays Needs updated CT scan of adrenal tumor 07/08/2014 Appointment: Sapna Live WPtel: [address] [place] [address] 07/07 vm NEW PATIENT 07/08/2014 Patient Education: Patient Medication Summary Completed 07/08/2014 Patient Education: Patient Medication Summary Completed 07/08/2014 Referral: Suhail Cardenas WPtel: [phone] [place] [address] [place] Referral Completed Referral: Toby Bettencourt WPtel: [address] [place] [address] [place] Referral Completed Referral: Rosario Monahan WPtel: [address] [place] [address] [place] Referral Appointment Requested Instructions [...]
--- OUTSIDE RECORDS SUMMARY | 2020-02-05 07:58 | XMS REPORT | CCD ---
Author Author Jai Live D.O. Organization [facility] Address [address] [place] [address] Phone Care Team Providers Care Option Trader Name Role Phone Sapna Live D.O., PP Unavailable CCM Unavailable Summary Purpose Interface Exchange Insurance Providers Payer name Policy type / Coverage type Covered libertarian ID Effective Begin Date Effective End Date GPA Commercial Insurance [id number] 2019 Unknown Family history Mother Diagnosis Age At Onset Cancer Unknown Father Diagnosis Age At Onset Congestive heart failure Unknown Coronary Artery Disease(CAD) Unknown Social History Social History Element Codes Description Effective Dates Tobacco history SNOMED CT: 1411539 Former smoker 10/09/2018 Marital status Unknown 07/08/2014 Number of children Unknown 1 07/08/2014 Employment Unknown Currently employed [employer] 07/08/[address]: 968822855 Never drinks alcohol 2013 Has the patient [...] Problems Condition Codes Effective Dates Condition Status Aortic regurgitation ICD-9: 424.1 ICD-10: I35.1 10/02/2019 [...] ICD-9: 7 16.96 ICD-10: M17.11 02/19/2018 Active Disorder of the skin and subcutaneous tissue, unspecif ied ICD-9: 709.9 ICD-10: L98.9 06/08/2016 Active Pain in right hip ICD-9: 719.45 [...] Fill Instructions tramadol 50 mg tablet RxNorm: 991574 1 Tablet(s) Oral t hree times a day as needed for pain along with two tylenol 09/29/2019 No Stop Date Active quinapril 40 mg tablet RxNorm: 594996 1 Tablet(s) Oral QD 09/18/2019 03/15/2020 Active Patient requests 90 days supply tramadol 50 mg tablet RxNorm: 900580 1 Tablet(s) Oral t hree times a day as needed for pain along with two tylenol 08/28/2019 08/28/2019 Inactive tramadol 50 mg tablet RxNorm: 208104 1 Tablet(s) PO TID as needed for pain along with two tylenol 08/25/2019 08/27/2019 Inactive pantoprazole 40 mg tablet,delayed release RxNorm: 579291 1 Tabl et(s) Oral QD 08/13/2019 No Stop Date Active Vitamin D3 1,000 unit capsule RxNorm: 275134 1 Capsule(s) Oral QD 1 10/13/2018 No Stop Date Active tamsulosin 0.4 mg capsule RxNorm: 396280 1 Capsule(s) Oral QPM 07/26 No Stop Date Active Protonix 40 mg tablet,delayed release RxNorm: 576114 TA KE 1 TABLET BY MOUTH TWICE A DAY 08/04/2019 08/12/2019 Inactive Flagyl 500 mg tablet RxNorm: 757267 1 Tablet(s) Oral three time s a day 07/03/2019 07/13/2019 Inactive fluconazole 100 mg tablet RxNorm: 909789 1 Tablet(s) Oral QD 201807/10/2019 Inactive Bactrim DS 800 mg-160 mg tablet RxNorm: 936609 1 Tablet(s) Oral two times a day 07/03/2019 07/13/2019 Inactive nystatin 100,000 unit/gram topical cream RxNorm: 204884 Application Topical two times a day 07/03/2019 08/12/2019 Inactive gabapentin 600 mg tablet RxNorm: 987491 Tablet(s) TAKE 1 TABLET BY MOUTH EVERY NIGHT AT BEDTIME 06/25/2019 08/12/2019 Inactive - First Attempt Ref: [id number] quinapril 40 mg tablet RxNorm: 228672 1 Tablet(s) Oral QD 06/23/2019 09/17/2019 Inactive Patient requests 90 days supply tramadol 50 mg tablet RxNorm: 166961 1 Tablet(s) PO TID as needed for pain along with two tylenol 05/23/2019 08/24/2019 Inactive hydroxyzine HCl 25 mg tablet RxNorm: 845124 1 Tablet(s) PO TID as needed 05/21/2019 08/12/2019 Inactive Elimite 5 % topical cream RxNorm: 148095 1 Application TOP QHS apply head to toe and was off in morning 05/19/2019 07/02/2019 Inactive Protonix 40 mg tablet,delayed release RxNorm: 829251 1 Tablet(s ) PO BID 05/05/2019 08/02/2019 Inactive - First Attempt Ref: [id number] gabapentin 600 mg tablet RxNorm: 964525 Tablet(s) TAKE 1 TABLET BY MOUTH EVERY NIGHT AT BEDTIME 04/25/2019 06/24/2019 Inactive - First Attempt Ref: [id number] tramadol 50 mg tablet RxNorm: 198462 1 Tablet(s) PO TID as needed for pain along with two tylenol 04/21/2019 05/22/2019 Inactive quinapril 40 mg tablet RxNorm: 899192 1 Tablet(s) PO QD 04/01/2019 Inactive Patient requests 90 days supply fenofibrate micronized 134 mg capsule RxNorm: 515203 1 Capsule(s) PO QD Due for updated fasting labs 03/31/2019 08/12/2019 Inactive dicyclomine 10 mg capsule RxNorm: 213734 1 Capsule(s) PO TID as needed 02/24/2019 05/20/2019 Inactive Flagyl 500 mg tablet RxNorm: 646389 1 Tablet(s) PO Q8H 02/24/201908/2019 Inactive ciprofloxacin 500 mg tablet RxNorm: 297592 1 Tablet(s) PO BID 02/2403/09/2019 Inactive Flagyl 500 mg tablet RxNorm: 026208 1 Tablet(s) PO Q6H 01/30/2019 Inactive ciprofloxacin 500 mg tablet RxNorm: 501871 1 Tablet(s) PO BID 01/3001/29/2019 Inactive Flagyl 500 mg tablet RxNorm: 517894 1 Tablet(s) PO Q6H 01/30/201904/2019 Inactive ciprofloxacin 500 mg tablet RxNorm: 500202 1 Tablet(s) PO BID 01/3002/05/2019 Inactive gabapentin 600 mg tablet RxNorm: 690592 TAKE 1 TABLET B Y MOUTH EVERY NIGHT AT BEDTIME 01/27/2019 04/24/2019 Inactive - First Attempt Ref: [id number] tramadol 50 mg tablet RxNorm: 825076 1 Tablet(s) PO TID as needed for pain along with two tylenol 01/08/2019 04/20/2019 Inactive fenofibrate micronized 134 mg capsule RxNorm: 073365 1 Capsule(s) PO QD Due for updated fasting labs 01/02/2019 03/30/2019 Inactive quinapril 40 mg tablet RxNorm: 893847 1 Tablet(s) PO QD 01/01/2019 Inactive Patient requests 90 days supply Protonix 40 mg tablet,delayed release RxNorm: 542061 TA KE 1 TABLET BY MOUTH TWICE A DAY 01/01/2019 03/31/2019 Inactive - First Attempt Ref: [id number] Protonix 40 mg tablet,delayed release RxNorm: 257415 TA KE 1 TABLET BY MOUTH TWICE A DAY 12/25/2018 12/31/2018 Inactive - First Attempt Ref: [id number] gabapentin 600 mg tablet RxNorm: 376704 TAKE 1 TABLET B Y MOUTH EVERY NIGHT AT BEDTIME 12/02/2018 01/26/2019 Inactive - First Attempt Ref: [id number] Protonix 40 mg tablet,delayed release RxNorm: 579232 1 Tablet(s ) PO BID 11/11/2018 12/24/2018 Inactive Protonix 40 mg tablet,delayed release RxNorm: 095131 1 Tablet(s ) PO BID 10/09/2018 11/10/2018 Inactive gabapentin 600 mg tablet RxNorm: 471371 1 Tablet(s) PO QHS 10/09/1912/01/2018 Inactive quinapril 40 mg tablet RxNorm: 723449 1 Tablet(s) PO QD 1 TABLE T(S) PO QD 08/08/2018 08/07/2018 Inactive Patient requests 9 0 days supply quinapril 40 mg tablet RxNorm: 882062 1 Tablet(s) PO QD 08/08/2018 Inactive Patient requests 90 days supply meloxicam 15 mg tablet RxNorm: 854689 1 Tablet(s) PO QD 08/08/2018 Inactive gabapentin 300 mg capsule RxNorm: 869256 1 CAPSULE(S) P O QHS DUE FOR WELLNESS VISIT 08/07/2018 10/08/2018 Inactive due for followup meloxicam 15 mg tablet RxNorm: 644318 Tablet(s) 1 TABLET(S) PO QD 1 10/07/2017 08/07/2018 Inactive fenofibrate micronized 134 mg capsule RxNorm: 804831 1 Capsule(s) PO QD Needs updated fasting labs!!!!!! 07/08/2018 07/07/2018 Inactive fenofibrate micronized 134 mg capsule RxNorm: 189992 1 Capsule( s) PO QD 07/08/2018 01/01/2019 Inactive fenofibrate micronized 134 mg capsule RxNorm: 124426 1 Capsule(s) PO QD Needs updated fasting labs!!!!!! 06/21/2018 07/08/2018 Inactive Medrol (Daniel) 4 mg tablets in a dose pack RxNorm: 543434 Tablet(s) PO As Directed 05/06/2018 05/05/2018 Inactive Medrol (Daniel) 4 mg tablets in a dose pack RxNorm: 416834 Tablet(s) PO As Directed 05/06/2018 08/07/2018 Inactive quinapril 40 mg tablet RxNorm: 989457 1 TABLET(S) PO QD 05/02/2018 Inactive Patient requests 90 days supply fenofibrate micronized 134 mg capsule RxNorm: 635822 1 Capsule(s) PO QD Needs updated fasting labs 04/29/2018 05/28/2018 Inactive Move Free [facility] 750 mg-100 mg-1.65 mg-108 mg tablet R xNorm: 1 Tablet(s) PO QD 02/12/2018 03/13/2018 Inactive fenofibrate micronized 134 mg capsule RxNorm: 817741 Ca psule(s) 1 CAPSULE(S) PO QD 01/29/2018 06/21/2018 Inactive quinapril 40 mg tablet RxNorm: 185529 1 TABLET(S) PO QD 11/26/2017 Inactive Patient requests 90 days supply fenofibrate micronized 134 mg capsule RxNorm: 266134 1 CAPSULE( S) PO QD 11/06/2017 01/29/2018 Inactive gabapentin 300 mg capsule RxNorm: 962459 1 CAPSULE(S) P O QHS DUE FOR WELLNESS VISIT 10/24/2017 07/20/2018 Inactive due for followup meloxicam 15 mg tablet RxNorm: 864620 1 TABLET(S) PO QD 10/24/2017 Inactive quinapril 40 mg tablet RxNorm: 434623 1 Tablet(s) PO QD 10/24/2017 Inactive fenofibrate micronized 134 mg capsule RxNorm: 393237 1 Capsule( s) PO QD 08/22/2017 11/05/2017 Inactive fenofibrate micronized 134 mg capsule RxNorm: 188020 1 Capsule( s) PO QD 08/22/2017 08/21/2017 Inactive quinapril 20 mg tablet RxNorm: 148447 1 Tablet(s) PO QD 08/13/2017 Inactive gabapentin 300 mg capsule RxNorm: 528318 1 Capsule(s) P O QHS Due for wellness visit 08/06/2017 10/23/2017 Inactive due for followup gabapentin 300 mg capsule RxNorm: 287864 1 Capsule(s) P O QHS Due for wellness visit 08/02/2017 08/05/2017 Inactive due for followup meloxicam 15 mg tablet RxNorm: 374374 1 Tablet(s) PO QD 08/01/2017 Inactive gabapentin 300 mg capsule RxNorm: 564033 1 Capsule(s) P O QHS Due for wellness visit 08/01/2017 08/01/2017 Inactive due for followup gabapentin 300 mg capsule RxNorm: 101474 1 Capsule(s) P O QHS Due for wellness visit 08/01/2017 08/02/2017 Inactive gabapentin 300 mg capsule RxNorm: 467516 1 Capsule(s) PO QHS 201605/12/2017 Inactive quinapril 10 mg tablet RxNorm: 009342 1 Tablet(s) PO QD replace s quinapril hct 02/12/2017 08/12/2017 Inactive meloxicam 15 mg tablet RxNorm: 962013 1 Tablet(s) PO QD 02/05/2017 Inactive quinapril 10 mg tablet RxNorm: 889443 1 Tablet(s) PO QD replace s quinapril hct 11/16/2016 02/12/2017 Inactive gabapentin 300 mg capsule RxNorm: 399270 1 Capsule(s) PO QHS 201602/12/2017 Inactive quinapril 10 mg tablet RxNorm: 408275 1 Tablet(s) PO QD replace s quinapril hct 10/16/2016 11/15/2016 Inactive gabapentin 300 mg capsule RxNorm: 415147 1 Capsule(s) PO QHS 201511/15/2016 Inactive quinapril 10 mg tablet RxNorm: 703235 1 Tablet(s) PO QD replace s quinapril hct 07/19/2016 10/15/2016 Inactive meloxicam 15 mg tablet RxNorm: 095197 1 Tablet(s) PO QD 07/10/2016 Inactive meloxicam 15 mg tablet RxNorm: 788470 TAKE ONE TABLET BY MOUTH LUKE Y 07/10/2016 07/09/2016 Inactive meloxicam 15 mg tablet RxNorm: 968990 1 Tablet(s) PO QD 07/06/2016 Inactive meloxicam 15 mg tablet RxNorm: 854230 1 Tablet(s) PO QD 06/09/2016 Inactive Multivitamin & Mineral Formula tablet RxNorm: 1 Tablet(s) PO Q D 06/02/2016 07/01/2016 Inactive tamsulosin 0.4 mg capsule RxNorm: 359250 1 Capsule(s) PO QHS 201507/01/2016 Inactive Move [facility] 750 mg-100 mg-1.65 mg-108 mg tablet R xNorm: 1 Tablet(s) PO QD 06/02/2016 07/01/2016 Inactive gabapentin 300 mg capsule RxNorm: 178274 1 Capsule(s) PO QHS 201508/27/2016 Inactive gabapentin 300 mg capsule RxNorm: 691850 Capsule(s) ALFONZO E ONE CAPSULE BY MOUTH AT BEDTIME 02/28/2016 05/27/2016 Inactive quinapril 10 mg-hydrochlorothiazide 12.5 mg tablet RxNorm: 3 92617 Tablet(s) TAKE ONE TABLET BY MOUTH EVERY MORNING 01/14/2016 07/18/2016 Inactive gabapentin 300 mg capsule RxNorm: 823714 TAKE ONE CAPSULE BY MO [email or web address] AT BEDTIME 12/28/2015 02/27/2016 Inactive Urecholine 25 mg tablet RxNorm: 282168 1 Tablet(s) PO TID 11/09/2015 07/18/2016 Inactive phenazopyridine 100 mg tablet RxNorm: 6594030 1 Tablet(s ) PO TID as needed for bladder spasms. 11/08/2015 11/08/2015 Inactive quinapril 10 mg-hydrochlorothiazide 12.5 mg tablet RxNorm: 3 12065 TAKE ONE TABLET BY MOUTH EVERY MORNING 10/15/2015 01/13/2016 Inactive gabapentin 300 mg capsule RxNorm: 939843 1 Tablet(s) PO QD TAKE ONE CAPSULE BY MOUTH EVERY NIGHT AT BEDTIME 09/23/2015 12/21/2015 Inactive quinapril 10 mg-hydrochlorothiazide 12.5 mg tablet RxNorm: 3 65553 Tablet(s) TAKE ONE TABLET BY MOUTH EVERY MORNING 07/14/2015 10/14/2015 Inactive gabapentin 300 mg capsule RxNorm: 068875 1 Tablet(s) PO QD TAKE ONE CAPSULE BY MOUTH EVERY NIGHT AT BEDTIME 06/25/2015 09/23/2015 Inactive prednisone 20 mg tablet RxNorm: 480230 1 Tablet(s) PO QD 06/14/2015 0 06/20/2015 Inactive cephalexin 500 mg capsule RxNorm: 198396 1 Capsule(s) PO BID 201405/27/2015 Inactive mupirocin 2 % topical ointment RxNorm: 350269 TOP BID 05/18/2015 0 06/13/2015 Inactive quinapril 10 mg-hydrochlorothiazide 12.5 mg tablet RxNorm: 3 19789 Tablet(s) TAKE ONE TABLET BY MOUTH EVERY MORNING 04/06/2015 07/14/2015 Inactive gabapentin 300 mg capsule RxNorm: 643189 1 Capsule(s) PO QHS 201404/01/2015 Inactive [SAVINGS FOR NON-COVERED LILIANA GS -- BIN:458059, PCN: ASPROD1, Group: XXXXX, ID# [id number], Questions: . THIS IS NOT INSURANCE.] gabapentin 300 mg capsule RxNorm: 730744 1 Capsule(s) PO QHS 201406/25/2015 Inactive [SAVINGS FOR NON-COVERED LILIANA GS -- BIN:035999, PCN: ASPROD1, Group: XXXXX, ID# [id number], Questions: . THIS IS NOT INSURANCE.] quinapril 10 mg-hydrochlorothiazide 12.5 mg tablet RxNorm: 3 16249 TAKE ONE TABLET BY MOUTH EVERY MORNING 12/11/2014 04/05/2015 Inactive gabapentin 300 mg capsule RxNorm: 918932 1 Capsule(s) PO QHS 201404/02/2015 Inactive [SAVINGS FOR NON-COVERED LILIANA GS -- BIN:766040, PCN: ASPROD1, Group: XXXXX, ID# [id number], Questions: . THIS IS NOT INSURANCE.] cyclobenzaprine 10 mg tablet RxNorm: 749346 1 Tablet(s) PO TID as needed for muscle spasm for muscle spasm 12/02/2014 02/21/2015 Inactive [S AVINGS FOR NON- COVERED DRUGS -- BIN:001566, PCN: ASPROD1, Group: XXXXX, ID# [id number], Questions: . THIS IS NOT INSURANCE.] gabapentin 100 mg capsule RxNorm: 729708 1 Capsule(s) PO QHS 201412/01/2014 Inactive [SAVINGS FOR NON-COVERED LILIANA GS -- BIN:380732, PCN: ASPROD1, Group: XXXXX, ID# [id number], Questions: . THIS IS NOT INSURANCE.] ibuprofen 800 mg tablet RxNorm: 118410 1 Tablet(s) PO T ID as needed low back pain 11/11/2014 11/23/2014 Inactive [SAVINGS FOR NON -COVERED DRUGS -- BIN:754062, PCN: ASPROD1, Group: XXXXX, ID# [id number], Questions: . THIS IS NOT INSURANCE.] ibuprofen 800 mg tablet RxNorm: 636021 1 Tablet(s) PO T ID as needed low back pain 11/09/2014 11/10/2014 Inactive [SAVINGS FOR NON -COVERED DRUGS -- BIN:060496, PCN: ASPROD1, Group: XXXXX, ID# [id number], Questions: . THIS IS NOT INSURANCE.] Zorvolex 35 mg capsule RxNorm: 0189288 1 Tablet(s) PO TID 08/27/2014 10/01/2014 Inactive [SAVINGS FOR UNINSURED PATIENTS -- BIN:0 97278, PCN: ASPROD1, Group: AME08, ID# [id number], Process claim through [employer], for questions: . THIS IS NOT INSURANCE.] quinapril 10 mg-hydrochlorothiazide 12.5 mg tablet RxNorm: 3 24806 1 Tablet(s) PO QAM 08/27/2014 11/24/2014 Inactive Lidoderm 5 % (700 mg/patch) adhesive patch RxNorm: 9251258 Application TOP for 12hours then off for pain 08/18/2014 02/21/2015 Inactive [SAVIN GS FOR UNINSURED PATIENTS -- BIN:701428, PCN: ASPROD1, Group: AME08, ID# [id number], Process claim through [employer], for questions: . THIS IS NOT INSURANCE.] Zorvolex 35 mg capsule RxNorm: 8304856 1 Tablet(s) PO TID 08/13/2014 08/12/2014 Inactive Zorvolex 35 mg capsule RxNorm: 0508692 1 Tablet(s) PO TID 08/13/2014 08/24/2014 Inactive [SAVINGS FOR UNINSURED PATIENTS -- BIN:0 35960, PCN: ASPROD1, Group: AME08, ID# [id number], Process claim through [employer], for questions: . THIS IS NOT INSURANCE.] Aspirin Child 81 mg chewable tablet RxNorm: 697270 1 Tablet(s) PO QD No Start Date Active ibuprofen 800 mg tablet RxNorm: 764504 1 Tablet(s) PO T ID as needed low back pain No Start Date 11/08/2014 Inactive cyclobenzaprine 10 mg tablet RxNorm: 291789 1 Tablet(s) PO TID No S tart Date 08/12/2017 Inactive garlic 1,000 mg capsule RxNorm: 544017 1 Capsule(s) PO QD No Start Date 04/22/2019 Inactive tramadol 50 mg tablet RxNorm: 931998 1 Tablet(s) PO Q4-6H as ne eded for pain No Start Date 02/21/2015 Inactive tramadol 50 mg tablet RxNorm: 736225 1 Tablet(s) PO TID as needed for pain along with two tylenol No Start Date 01/07/2019 Inactive krill oil oral RxNorm: 42245 oral No Start Date 11/11/2018 Inacti ve Vitamin D3 2,000 unit tablet RxNorm: 691756 1 Tablet(s) PO QD No St art Date 08/12/2019 Inactive gabapentin 100 mg tablet RxNorm: 530884 1 Tablet(s) PO QD No Start Date 11/10/2014 Inactive Zofran 4 mg tablet RxNorm: 138965 1 Tablet(s) PO Q6H as needed No S tart Date 08/12/2019 Inactive Elimite 5 % topical cream RxNorm: 756767 1 Application TOP QHS apply head to toe and was off in morning No Start Date 05/18/2019 Inactive gabapentin 100 mg capsule RxNorm: 646212 1 Capsule(s) PO QHS No Sta rt Date 11/10/2014 Inactive aspirin 325 mg tablet RxNorm: 951499 2 Tablet(s) PO QD No Start Date 08/17/2014 Inactive Fish Oil 1,000 mg capsule RxNorm: 1 Capsule(s) PO QD No Start Date 10/08/2018 Inactive quinapril 10 mg-hydrochlorothiazide 12.5 mg tablet RxNorm: 3 02106 1 Tablet(s) PO QAM No Start Date 08/26/2014 Inactive quinapril 40 mg tablet RxNorm: 696813 1 Tablet(s) PO QD No Start Da te 10/23/2017 Inactive Medrol (Daniel) 4 mg tablets in a dose pack RxNorm: 324826 Tablet(s) PO As Directed No Start Date 05/05/2018 Inactive Urecholine 25 mg tablet RxNorm: 413782 1 Tablet(s) PO TID No Start Date 11/08/2015 Inactive cyclobenzaprine 10 mg tablet RxNorm: 966844 1/2-1 Table t(s) PO TID as needed for muscle spasm No Start Date 12/01/2014 Inactive tamsulosin 0.4 mg capsule RxNorm: 750365 2 Capsule(s) PO QPM No Sta rt Date 08/12/2019 Inactive hydrocodone 5 mg-acetaminophen 325 mg tablet RxNorm: 757748 1 -2 Tablet(s) PO Q6H as needed No Start Date 05/20/2019 Inactive loratadine 10 mg tablet RxNorm: 162139 1 Tablet(s) PO QD No Start D ate 07/07/2014 Inactive Medication Administered No Medication Administered data Immunizations Vaccine Codes Date Status Influenza CVX: 141 07/21/2019 Results Observation Observation Code Item Item Code Result Date S [facility] Location CULTURE, URINE, ROUTINE 395 CULTURE SEE NOTE 1 10/15/2018 [facility] Bec[facility] [address] [place] [address] CULTURE, URINE, ROUTINE 395 CULTURE, URINE, ROUTINE SEE NOTE 08/15/2019 Zay Becerra [address] [place] [address] CBC (H/H, RBC, INDICES, WBC, PLT) 88076 WHITE BLOOD CELL COU NT 7.9 Thousand/uL 08/14/2019 [facility] Bec[facility] [address] [place] [address] CBC (H/H, RBC, INDICES, WBC, PLT) 20052 RED BLOOD CELL COUNT 4.93 Million/uL 08/14/2019 Zay Becerra [address] [place] [address] CBC (H/H, RBC, INDICES, WBC, PLT) 78689 HEMOGLOBIN 15 .4 g/dL 08/14/2019 [facility] [address] [address] CBC (H/H, RBC, INDICES, WBC, PLT) 65466 HEMATOCRIT 45 .0 % 08/14/[address] [facility] [address] CBC (H/H, RBC, INDICES, WBC, PLT) 93716 MCV 91 .3 fL 08/14/[address] [facility] [address] CBC (H/H, RBC, INDICES, WBC, PLT) 78238 MCH 31 .2 pg 08/14/[address] [facility] [address] CBC (H/H, RBC, INDICES, WBC, PLT) 21327 MCHC 34 .2 g/dL 08/14/[address] [facility] [address] CBC (H/H, RBC, INDICES, WBC, PLT) 87818 RDW 12 .7 % 08/14/2019 [facility] [address] CBC (H/H, RBC, INDICES, WBC, PLT) 68467 PLATELET COUNT 214 Thousand/uL 08/14/[address] [facility] [address] CBC (H/H, RBC, INDICES, WBC, PLT) 87048 MPV 11 .5 fL 08/14/[address] [facility] [address] COMPREHENSIVE METABOLIC PANEL 56484 Glucose 113 mg /dL 08/14/[address] [facility] [address] [address] COMPREHENSIVE METABOLIC PANEL 49243 UREA NITROGEN (BUN) 16 mg/dL 08/14/[address] [facility] [address] COMPREHENSIVE METABOLIC PANEL 10388 CREATININE 0.86 m g/dL 08/14/[address] [facility] [address] COMPREHENSIVE METABOLIC PANEL 01377 eGFR NON-AFR. [place] 92 mL/min/1.73m2 08/14/[address] [facility] [address] COMPREHENSIVE METABOLIC PANEL 05217 eGFR 106 mL/min/1.73m2 08/14/[address] [facility] [address] COMPREHENSIVE METABOLIC PANEL 71291 BUN/CREATININE RATIO NOT APPLICABLE (calc) 08/14/[address] [address] COMPREHENSIVE METABOLIC PANEL 63807 SODIUM 141 mm ol/L 08/14/[address] [facility] [address] COMPREHENSIVE METABOLIC PANEL 09407 POTASSIUM 4.1 mm ol/L 08/14/[address] [facility] [address] COMPREHENSIVE METABOLIC PANEL 84572 CHLORIDE 102 mm ol/L 08/14/[address] [facility] [address] COMPREHENSIVE METABOLIC PANEL 91907 CARBON DIOXIDE 28 mmol/L 08/14/[address] [facility] [address] COMPREHENSIVE METABOLIC PANEL 75743 CALCIUM 9.7 mg /dL 08/14/2019 [facility] [address] COMPREHENSIVE METABOLIC PANEL 47034 PROTEIN, TOTAL 6. 7 g/dL 08/14/[address] [facility] [address] COMPREHENSIVE METABOLIC PANEL 80286 ALBUMIN 4.3 g/ dL 08/14/[address] [facility] [address] COMPREHENSIVE METABOLIC PANEL 75306 GLOBULIN 2.4 g/ dL(calc) 08/14/[address] [address] COMPREHENSIVE METABOLIC PANEL 52615 ALBUMIN/GLOBULIN RATIO 1.8 (calc) 08/14/[address] [facility] [address] COMPREHENSIVE METABOLIC PANEL 93452 BILIRUBIN, TOTAL 1.0 mg/dL 08/14/[address] [facility] [address] COMPREHENSIVE METABOLIC PANEL 62646 ALKALINE PHOSPHATASE 56 U/L 08/14/[address] [facility] [address] COMPREHENSIVE METABOLIC PANEL 34266 AST 18 U/L 08/14/2019 [facility] [address] [place] [address] COMPREHENSIVE METABOLIC PANEL 47361 ALT 28 U/L 08/14/2019 [facility] [address] [address] MAGNESIUM 96001 MAGNESIUM 2.0 mg/dL 06/06/2019 [facility] [address] [address] COMPREHENSIVE METABOLIC PANEL 30585 Glucose 106 mg /dL 06/06/2019 [facility] [address] [address] COMPREHENSIVE METABOLIC PANEL 12205 UREA NITROGEN (BUN) 22 mg/dL 06/06/2019 [facility] [address] [address] COMPREHENSIVE METABOLIC PANEL 61163 CREATININE 1.29 m g/dL 06/06/2019 [facility] [address] [address] COMPREHENSIVE METABOLIC PANEL 54772 eGFR NON-AFR. [place] 58 mL/min/1.73m2 06/06/2019 [facility] [address] [address] COMPREHENSIVE METABOLIC PANEL 06681 eGFR 67 mL/min/1.73m2 06/06/2019 [facility] [address] [address] COMPREHENSIVE METABOLIC PANEL 76573 BUN/CREATININE RATIO 17 (calc) 06/06/2019 [facility] [address] [place] [address] COMPREHENSIVE METABOLIC PANEL 00125 SODIUM 138 mm ol/L 06/06/2019 [facility] [address] [address] COMPREHENSIVE METABOLIC PANEL 70144 POTASSIUM 4.2 mm ol/L 06/06/2019 [facility] [address] [address] COMPREHENSIVE METABOLIC PANEL 17577 CHLORIDE 101 mm ol/L 06/06/2019 [facility] [address] [address] COMPREHENSIVE METABOLIC PANEL 72058 CARBON DIOXIDE 29 mmol/L 06/06/2019 [facility] [address] [address] COMPREHENSIVE METABOLIC PANEL 76108 CALCIUM 9.6 mg /dL 06/06/[address] [facility] [address] COMPREHENSIVE METABOLIC PANEL 51622 PROTEIN, TOTAL 6. 9 g/dL 06/06/[address] [facility] [address] COMPREHENSIVE METABOLIC PANEL 49878 ALBUMIN 4.4 g/ dL 06/06/[address] [facility] [address] COMPREHENSIVE METABOLIC PANEL 59005 GLOBULIN 2.5 g/ dL(calc) 06/06/2019 [facility] [address] COMPREHENSIVE METABOLIC PANEL 06800 ALBUMIN/GLOBULIN RATIO 1.8 (calc) 06/06/[address] [facility] [address] COMPREHENSIVE METABOLIC PANEL 22358 BILIRUBIN, TOTAL 0.7 mg/dL 06/06/[address] [facility] [address] COMPREHENSIVE METABOLIC PANEL 65905 ALKALINE PHOSPHATASE 45 U/L 06/06/2019 [facility] [address] COMPREHENSIVE METABOLIC PANEL 25152 AST 21 U/L 06/06/[address] [facility] [address] COMPREHENSIVE METABOLIC PANEL 22016 ALT 34 U/L 06/06/[address] [facility] [address] CULTURE, URINE, ROUTINE 395 CULTURE, URINE, ROUTINE SEE NOTE 04/23/[address] [facility] [address] CULTURE, URINE, ROUTINE 395 CULTURE SEE NOTE 0 04/23/[address] [facility] [address] EXTRA 1014 EXTRA TUBE RECEIVED 04/[address] [facility] [address] EXTRA 1014 SPECIMEN TYPE RECEIVED: LAV 0 04/22/[address] [facility] [address] COMPREHENSIVE METABOLIC PANEL 96619 Glucose 94 mg/ dL 04/22/[address] [facility] [address] COMPREHENSIVE METABOLIC PANEL 63492 UREA NITROGEN (BUN) 20 mg/dL 04/22/2019 [facility] [address] [address] COMPREHENSIVE METABOLIC PANEL 31636 CREATININE 1.30 m g/dL 04/22/[address] [facility] [address] COMPREHENSIVE METABOLIC PANEL 38351 eGFR NON-AFR. [place] 58 mL/min/1.73m2 04/22/[address] [facility] [address] COMPREHENSIVE METABOLIC PANEL 43168 eGFR 67 mL/min/1.73m2 04/22/[address] [facility] [address] COMPREHENSIVE METABOLIC PANEL 62929 BUN/CREATININE RATIO 15 (calc) 04/22/[address] [facility] [address] COMPREHENSIVE METABOLIC PANEL 35205 SODIUM 139 mm ol/L 04/22/[address] [facility] [address] COMPREHENSIVE METABOLIC PANEL 63884 POTASSIUM 4.2 mm ol/L 04/22/[address] [facility] [address] COMPREHENSIVE METABOLIC PANEL 16405 CHLORIDE 104 mm ol/L 04/22/[address] [facility] [address] COMPREHENSIVE METABOLIC PANEL 41194 CARBON DIOXIDE 27 mmol/L 04/22/[address] [facility] [address] COMPREHENSIVE METABOLIC PANEL 09287 CALCIUM 9.9 mg /dL 04/22/[address] [facility] [address] COMPREHENSIVE METABOLIC PANEL 42904 PROTEIN, TOTAL 7. 1 g/dL 04/22/[address] [facility] [address] COMPREHENSIVE METABOLIC PANEL 37835 ALBUMIN 4.6 g/ dL 04/22/[address] [facility] [address] COMPREHENSIVE METABOLIC PANEL 77531 GLOBULIN 2.5 g/ dL(calc) 04/22/[address] [facility] [address] COMPREHENSIVE METABOLIC PANEL 19665 ALBUMIN/GLOBULIN RATIO 1.8 (calc) 04/22/[address] [facility] [address] [address] COMPREHENSIVE METABOLIC PANEL 06448 BILIRUBIN, TOTAL 0.4 mg/dL 04/22/[address] [address] COMPREHENSIVE METABOLIC PANEL 76342 ALKALINE PHOSPHATASE 53 U/L 04/22/[address] [address] COMPREHENSIVE METABOLIC PANEL 06045 AST 21 U/L 04/22/2019 [facility] [address] COMPREHENSIVE METABOLIC PANEL 99923 ALT 34 U/L 04/22/[address] [address] CULTURE, URINE, ROUTINE 395 CULTURE, URINE, ROUTINE SEE NOTE 01/31/[address] [address] Procedures Procedure Codes Date URINALYSIS NONAUTO W/O SCOPE CPT-4: 36556 10/02/2019 URINE CULTURE/ COLONY COUNT CPT-4: 04824 10/02/2019 ROUTINE VENIPUNCTURE CPT-4: 17675 08/13/2019 URINALYSIS NONAUTO W/O SCOPE CPT-4: 93546 08/13/2019 CULTURE, URINE, ROUTINE CPT-4: 395 08/13/2019 COMPREHENSIVE METABOLIC PANEL CPT-4: 45216 08/13/2019 CBC (H/H, RBC, INDICES, WBC, PLT) CPT-4: 70155 2018 COMPREHENSIVE METABOLIC PANEL CPT-4: 82527 06/05/2019 MAGNESIUM CPT-4: 50183 06/05/2019 DEXAMETHASONE SODIUM PHOS CPT-4: J1100 05/21/2019 THER/PROPH/DIAG INJ SC/IM CPT-4: 64085 05/21/2019 TRIAMCINOLONE ACET INJ NOS CPT-4: J3301 05/21/2019 ROUTINE VENIPUNCTURE CPT-4: 36038 04/21/2019 COMPREHENSIVE METABOLIC PANEL CPT-4: 89995 04/21/2019 EXTRA CPT-4: 1014 04/21/2019 CULTURE, URINE, ROUTINE CPT-4: 395 04/21/2019 URINALYSIS NONAUTO W/O SCOPE CPT-4: 15068 04/21/2019 URINALYSIS NONAUTO W/O SCOPE CPT-4: 51732 01/29/2019 CULTURE, URINE, ROUTINE CPT-4: 395 01/29/2019 DRAIN/INJECT JOINT/BURSA CPT-4: 08735 02/19/2018 TRIAMCINOLONE ACET INJ NOS CPT-4: J3301 02/19/2018 DEXAMETHASONE SODIUM PHOS CPT-4: J1100 02/19/2018 THER/PROPH/DIAG INJ SC/IM CPT-4: 51567 02/12/2018 TRIAMCINOLONE ACET INJ NOS CPT-4: J3301 02/12/2018 DEXAMETHASONE SODIUM PHOS CPT-4: J1100 02/12/2018 CEFTRIAXONE SODIUM INJECTION CPT-4: J0696 12/03/2017 THER/PROPH/DIAG INJ SC/IM CPT-4: 76742 12/03/2017 THER/PROPH/DIAG INJ SC/IM CPT-4: 33870 12/03/2017 METHYLPREDNISOLONE INJECTION CPT-4: J2930 12/03/2017 URINALYSIS NONAUTO W/O SCOPE CPT-4: 30603 08/13/2017 STREP A ASSAY W/OPTIC CPT-4: 00528 02/13/2017 DESTRUCT PREMALG LESION (Cryosurgery) CPT-4: 19305 Vital Signs Date Vital 10/02/2019 Blood Pressure [...] 1: 128/78 Code: 8480-6 BMI: 36.0 Code: 54402-7 Heart Rate 1: 68 bpm Height: 5'7" [...] 1: 138/86 Code: 8480-6 BMI: 35.6 Code: 39316-0 Heart Rate 1: 68 bpm Height: 5'7" SpO2: 95% Temperature: 36.6 (C) / 97.8 (F) Weight: 227 lbs 12/03/2017 Blood Pressure 1: 134/84 Code: 8480-6 BMI: 34.3 Code: 77698-2 Heart Rate 1: 68 bpm Height: 5'7" Respiratory Rate: 20 bpm SpO2: 96% Tempera ture: 35.9 (C) / 96.6 (F) Weight: 219 lbs 09/11/2017 Blood Pressure 1: 140/86 Code: 8480-6 BMI: 34.9 Code: 81882-8 Heart Rate 1: 84 bpm Height: 5'7" Respiratory Rate: 20 bpm SpO2: 95% Tempera ture: 36.7 (C) / 98.1 (F) Weight: 223 lbs 08/13/2017 Blood Pressure 1: 142/94 Code: 8480-6 BMI: 34.5 Code: 86190-9 Heart Rate 1: 76 bpm Height: 5'7" Respiratory Rate: 20 bpm SpO2: 96% Tempera ture: 37.1 (C) / 98.8 (F) Weight: 220 lbs 11/17/2016 Blood Pressure 1: 118/78 Code: 8480-6 art Rate 1: 64 bpm 07/19/2016 Blood Pressure 1: 112/58 Code: 8480-6 BMI: 31.6 Code: 21530-0 Heart Rate 1: 88 bpm Height: 5'7" Respiratory Rate: 22 bpm SpO2: 98% Tempera ture: 36.3 (C) / 97.4 (F) Weight: 202 lbs 06/09/2016 Blood Pressure 1: 138/84 Code: 8480-6 BMI: 32.1 Code: 78477-8 Heart Rate 1: 58 bpm Height: 5'7" Respiratory Rate: 20 bpm SpO2: 97% Tempera ture: 36.6 (C) / 97.8 (F) Weight: 205 lbs 11/08/2015 Blood Pressure 1: 142/80 Code: 8480-6 BMI: 32.4 Code: 87132-6 Heart Rate 1: 76 bpm Height: 5'7" Respiratory Rate: 20 bpm Temperature: 36 .6 (C) / 97.9 (F) Weight: 207 lbs 06/14/2015 Blood Pressure 1: 126/80 Code: 8480-6 Heart Rate 1: 84 bpm Respiratory Rate: 20 bpm Temperature: 36.8 (C) / 98.2 (F) Weight: 206 lbs 05/18/2015 Blood Pressure 1: 124/80 Code: 8480-6 BMI: 32.3 Code: 32778-5 Heart Rate 1: 68 bpm Height: 5'7" Respiratory Rate: 20 bpm Temperature: 36 .4 (C) / 97.6 (F) Weight: 206 lbs 02/22/2015 Blood Pressure 1: 126/78 Code: 8480-6 BMI: 32.1 Code: 94345-4 Heart Rate 1: 76 bpm Height: 5'7" Respiratory Rate: 20 bpm Temperature: 36 .6 (C) / 97.9 (F) Weight: 205 lbs 12/02/2014 Blood Pressure 1: 124/80 Code: 8480-6 BMI: 32.7 Code: 56693-1 Heart Rate 1: 70 bpm Height: 5'7" Respiratory Rate: 18 bpm Temperature: 36 .6 (C) / 97.9 (F) Weight: 209 lbs 08/18/2014 Blood Pressure 1: 132/94 Code: 8480-6 BMI: 34.5 Code: 53417-1 Heart Rate 1: 84 bpm Height: 5'6" Respiratory Rate: 20 bpm Temperature: 36 .6 (C) / 97.9 (F) Weight: 217 lbs 07/08/2014 Blood Pressure 1: 142/88 Code: 8480-6 BMI: 34.3 Code: 49746-7 Heart Rate 1: 72 bpm Height: 5'6" [...] Encounters Encounter Performer Location Codes Date () OFFICE/OUTPATIENT VISIT EST Diagnosis: Suprapubic abdominal pain[ICD10: R10.2] Diagnosis: Aortic regurgitation[ICD10: I35.1] Sapna LIVE [facility] CPT-4: 11123 10/02/2019 ([id number]) OFFICE/OUTPATIENT VISIT EST Diagnosis: Chest pain[ICD10: R07.9] Lashell Joe SAPNA BILLINGS [facility] CPT-4: 34328 08/25/2019 ([id number]) OFFICE/OUTPATIENT VISIT EST Diagnosis: Thoracic back pain[ICD10: M54.6] Diagnosis: Disorder of kidney and ureter, unspecified[ICD10: N28.9] Diagnosis: Personal history of nicotine dependence[ICD10: Z87.891] 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] Lashell AU DO [facility] CPT-4: 42380 08/13/2019 ([id number]) OFFICE/OUTPATIENT VISIT EST Diagnosis: Sigmoid diverticulitis[ICD10: K57.32] Diagnosis: Renal insufficiency[ICD10: N28.9] Diagnosis: Jock itch[ICD10: B35.6] Sapna PARDO DO [facility] CPT-4: 04415 07/03/2019 ([id number]) OFFICE/OUTPATIENT VISIT EST Diagnosis: Cramp and spasm[ICD10: R25.2] Diagnosis: Disorder of kidney and ureter, unspecified[ICD10: N28.9] Lashell LIVE DO [facility] CPT-4: 98377 06/05/2019 ([id number]) OFFICE/OUTPATIENT VISIT EST Diagnosis: Other pruritus[ICD10: L29.8] Diagnosis: Pain in right knee[ICD10: M25.561] Lashell LIVE [employer] [facility] CPT-4: 51612 05/21/2019 ([id number]) NURSE/OUTPATIENT VISIT EST Diagnosis: Edema, unspecified[ICD10: R60.9] Sapna LIVE DO [facility] CPT-4: 53620 04/21/2019 ([id number]) OFFICE/OUTPATIENT VISIT EST Diagnosis: Diverticulitis of large intestine without perforation or abscess without bleeding[ICD10: K57.32] Diagnosis: Snoring[ICD10: R06.83] Diagnosis: Other constipation[ICD10: K59.09] Lashell LIVE DO [facility] CPT-4: 65174 02/24/2019 ([id number]) OFFICE/OUTPATIENT VISIT EST Diagnosis: Diverticulitis of large intestine without perforation or abscess with bleeding[ICD10: K57.33] Nancy CORRAL Vickie LIVE [facility] [employer] [facility] CPT-4: 32471 02/04/2019 ([id number]) OFFICE/OUTPATIENT VISIT EST Diagnosis: Left lower quadrant pain[ICD10: R10.32] Nacny LORA JefryAmarjit BUZZ MARIE [facility] CPT-4: 60803 01/29/2019 OFFICE/OUTPATIENT VISIT EST Diagnosis: Dermatitis, unspecified[ICD10: L30.9] Diagnosis: Gastro-esophageal reflux disease without esophagitis[ICD10: K21.9] Diagnosis: Palpitations[ICD10: R00.2] Sapna AU [facility] CPT-4: 93154 12/19/2018 ([id number]) OFFICE/OUTPATIENT VISIT EST Diagnosis: Gastro-esophageal reflux disease without esophagitis[ICD10: K21.9] Diagnosis: Dysphagia, pharyngoesophageal phase[ICD10: R13.14] Sapna LIVE DO [facility] CPT-4: 00390 11/11/2018 ([id number]) PREV VISIT EST AGE 40-64 Diagnosis: Encounter [...] disorders of digestive system[ICD10: K91.89] Lashell LIVE [employer] [facility] CPT-4: 99 396 10/09/2018 ([id number]) OFFICE/OUTPATIENT VISIT EST Diagnosis: Pain in right knee[ICD10: M25.561] Diagnosis: Pain in right hip[ICD10: M25.551] Lashell LIVE [employer] [facility] CPT-4: 23169 02/12/2018 OFFICE/OUTPATIENT VISIT EST Diagnosis: Essential (primary) hypertension[ICD10: I10] Diagnosis: Other chest pain[ICD10: R07.89] Lashell LIVE [employer] [facility] CPT-4: 81714 12/03/2017 ([id number]) OFFICE/OUTPATIENT VISIT EST Diagnosis: Essential (primary) hypertension[ICD10: I10] Sapna LIVE [facility] CPT-4: 69972 09/11/2017 ([id number]) PREV VISIT EST AGE 40-64 Diagnosis: Encounter for general adult medical examination without abnormal findings[ICD10: Z00.00] Diagnosis: Essential (primary) hypertension[ICD10: I10] Diagnosis: Left lower quadrant pain[ICD10: R10.32] Diagnosis: Left upper quadrant pain[ICD10: R10.12] Diagnosis: Other intervertebral disc degeneration, 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] Sapna LIVE [employer] [facility] CPT-4: 40700 08/13/2017 ([id number]) OFFICE/OUTPATIENT VISIT EST Diagnosis: Acute pharyngitis, unspecified[ICD10: J02.9] Sapna LIVE [facility] CPT-4: 43593 02/13/2017 ([id number]) PREV VISIT EST AGE 40-64 Diagnosis: Encounter for general adult medical examination without abnormal findings[ICD10: Z00.00] Diagnosis: Essential (primary) hypertension[ICD10: I10] 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] Sapna CappsAmarjit BUZZ [facility] CPT-4: 48022 07/19/2016 OFFICE/OUTPATIENT VISIT EST Diagnosis: Pain in thoracic spine[ICD10: M54.6] Diagnosis: Disorder of the skin and subcutaneous tissue, unspecified[ICD10: L98.9] Sobia Monreal SAPNA JefryAmarjit BUZZ [facility] CPT-4: 69014 06/09/2016 OFFICE/OUTPATIENT VISIT EST Diagnosis: Retention of urine, unspecified[ICD10: R33.9] Diagnosis: Urinary tract infection, site not specified[ICD10: N39.0] Chelsie Teixeira SAPNA JefryAmarjit BUZZ [facility] CPT-4: 73944 11/08/2015 ([id number]) OFFICE/OUTPATIENT VISIT EST Diagnosis: DERMATITIS NOS[ICD9: 692.9] Diagnosis: SEBACEOUS CYST[ICD9: 706.2] Sapna Rosagustabo SAPNA Johnston Claudio DANITZA [facility] CPT-4: 03921 06/14/2015 OFFICE/OUTPATIENT VISIT EST Diagnosis: LOCAL SKIN INFECTION[ICD9: 686.9] Diagnosis: FOLLICULITIS[ICD9: 704.8] Chelsie HASSAN [facility] CPT-4: 84938 05/18/2015 ([id number]) OFFICE/OUTPATIENT VISIT EST Diagnosis: Constipation[ICD9: 564.00] Sapna AU [facility] CPT-4: 81014 02/22/2015 ([id number]) OFFICE/OUTPATIENT VISIT EST Diagnosis: Thoracic back pain[ICD9: 724.1] Diagnosis: Thoracic degenerative disc disease[ICD9: 722.51] Diagnosis: Scoliosis[ICD9: 737.30] Sapna PARDO [facility] CPT-4: 55390 12/02/2014 ([id number]) OFFICE/OUTPATIENT VISIT EST Diagnosis: Thoracic back pain[ICD9: 724.1] Diagnosis: ACTINIC KERATOSIS[ICD9: 702.0] Sapna LIVE [facility] CPT-4: 68018 08/18/2014 OFFICE/OUTPATIENT VISIT NEW Diagnosis: HYPERTENSION[ICD9: 401.9] Diagnosis: Thoracic back pain[ICD9: 724.1] Diagnosis: GERD[ICD9: 530.81] Diagnosis: Adrenal tumor[ICD9: 239.7] Sapna AU [facility] CPT-4: 06990 07/08/2014 ([id number]) OFFICE/OUTPATIENT VISIT NEW Diagnosis: HYPERTENSION[ICD9: 401.9] Diagnosis: GERD[ICD9: 530.81] Sapna LIVE DO [facility] CPT-4: 15529 07/08/2014 Plan of Care Planned Activity Notes [...] Appointment: Sapna Live WPtel: [phone] [id number] FOLLOW UP 10/02/2019 Care Plan: Referral Order SNOMED-CT : 30 [id number] Pending 10/02/2019 Visit Diagnosis Plan: Chest pain Discussion: will star t with cxray and rib xray. discussed that could be lung, rib, muscle but will start with cxray and patient may need echo. he verbalized understanding. ICD-9 : 786.50 ICD-10 : R07.9 08/25/2019 Appointment: Lashell Joe [address] [place], [place] [address] ACUTE ILLNESS 08/25/2019 Visit Diagnosis Plan: Thoracic back pain Discussion: c hronic pain. will refer to dr. [place] for evaluation and treatment ICD-9 : 724.1 [...] ct of lungs to be done at [facility]. ICD-9 : V15.82 ICD-10 : [...] ICD-10 : E27.8 08/13/2019 Appointment: Lashell Joe [address] [place], [place] [address] [place] FOLLOW UP 08/13/2019 Visit Diagnosis Plan: Sigmoid diverticulitis Discussio n: Bactrim/Flagyl Routt diet To ER this weekend if worsening ICD-9 : 562.11 ICD-10 : K57.32 07/03/2019 Visit Diagnosis Plan: Jock itch Discussion: Diflucan a nd topical nystatin ICD-9 : 110.3 ICD-10 : B35.6 07/03/2019 Visit Diagnosis Plan: Renal insufficiency Discussion: Labs discussed Continue off NSAIDS Hydrate Recheck Chemistry 3mos ICD-9 : 593.9 ICD-10 : N28.9 07/03/2019 Appointment: [phone] [facility] [facility] 07/03/2019 Patient Education: fluconazole- [employer] [id number] Completed 07/03/2019 Patient Education: nystatin- [employer] C[employer]on [id number] Completed 07/03/2019 Visit Diagnosis Plan: Disorder of [...] ICD-10 : R25.2 06/05/2019 Appointment: Lashell Joe [address] [place], [place] [address] NO SHOW - FORGIVEN 06/05/2019 Appointment: Lashell Joe [address] [place], [place] [id number] ACUTE ILLNESS 06/05/2019 Visit Diagnosis Plan: Pain [...] ICD-10 : L29.8 05/21/2019 Appointment: Lashell Joe [address] [place] [address] ACUTE ILLNESS 05/21/2019 Patient Education: hydroxyzine HCl- [employer] Coupon [id number] [email or web address] Completed 05/21/2019 Appointment: Sapna Live WPtel: [address] [place] [address] 05/19/19 1645---see note put in chart today (km) CANCELED 05/19/2019 Appointment: Sapna Live WPtel: [address] [place] [address] CANCELED 05/05/2019 Appointment: Sapan Live WPtel: [address] [place] [address] UA 04/21/2019 Visit Diagnosis Plan: Diverticulitis of [...] : K59.09 02/24/2019 Appointment: Lashell Joe [address] Follow Up 02/24/2019 Visit Diagnosis Plan: Diverticulitis of large intestine without perforation or abscess with bleeding Discussion: Continue flagyl and cipro. A dvance diet to bland. BRAT diet advised. Avoid nuts, seeds, popcorn, roughage. RTC if abdominal pain worsens or does not improve. ICD-9 : 562.13 ICD-10 : K57.33 02/04/2019 Appointment: Nancy Mendiola [facility] [address] FOLLOW UP 02/04/2019 Visit Diagnosis Plan: [...] : R10.32 01/29/2019 Appointment: Nancy Mendiola [facility] [address] ACUTE ILLNESS 01/29/2019 Care Plan: CT [...] L30.9 12/19/2018 Appointment: Sapna Live WPtel[phone] [facility] [facility] 12/19/2018 Visit Diagnosis Plan: Gastro-esophageal reflux disease without esophagitis Discussion: Continue protonix at 40mg daily Hold mobic No NSAIDS Hold all MVs If persists then will need EGD ICD-9 : 530.81 ICD-10 : K21.9 11/11/2018 Appointment: Sapna Live WPtel[facility] [phone] [facility] [facility] 11/11/2018 Visit Diagnosis Plan: Encounter for gene [facility] adult medical examination without abnormal [...] ICD-10 : I10 10/09/2018 Appointment: Lashell Joe [address] [place], [place] [phone] Annual Well Visit 10/09/2018 Patient Education: gabapentin- [employer] Coupon [id number] Completed 10/09/2018 Patient Education: Kegel Exercises Comple catalina 10/09/2018 Patient Education: High Blood Pressure Co mpleted 10/09/2018 Visit Diagnosis Plan: Pain in right knee Discussion: c orticosteroid injection administered as described above. patient tolerated well. instructed to rtc in 3- 4 months if needed for additional injection. ICD-9 : 719.46 ICD-10 : M25.561 02/19/2018 Appointment: Lashell Joe [address] [place], [place] [address] OFFICE SURGERY 02/19/2018 Patient Education: Patient Medication [...] ICD-10 : M25.561 02/12/2018 [facility]ment[facility] [facility] 02/12/2018 Patient Education: Patient Medication Summary Completed 02/12/2018 Care Plan: X-RAY EXAM OF KNEE 1 [place] 2 [place] : [address]-9 Pending 02/12/2018 Visit Diagnosis Plan: Essential (primary) [...] ICD-10 : R07.89 12/03/2017 Appointment: Lashell Joe 504 [facility] ESTABLISHED PATIENT 12/03/2017 Patient Education: Patient Medication Summary Completed 12/03/2017 Visit Diagnosis Plan: Essential (primary) hypertension Discussion: Increase quinapril to 40mg daily BP check in 1month ICD-9 : 401.9 ICD-10 : I10 09/11/2017 Appointment: Sapna Live WPtel: [address] [place] [address] FOLLOW UP 09/11/2017 Patient Education: Patient Medication Summary Completed 09/11/2017 Appointment: Sapna Live WPtel: [address] [place], [place] [id number] RESCHEDULED 08/22/2017 Visit Diagnosis Plan: Essential (primary) hypertension Discussion: Increase quinapril to 20mg daily Follow Up: 1 months ICD-9 : 401.9 ICD-10 : I10 08/13/2017 Visit Diagnosis Plan: Encounter for gene [facility] adult medical examination without abnormal findings Discussion: Update fasting lab ICD-9 : V70.9 ICD-10 : Z00.00 08/13/2017 Visit Diagnosis Plan: Left lower quadrant pain Discuss ion: Update colonoscopy ICD-9 : 789.04 ICD-10 : R10.32 08/13/2017 Appointment: Sapna Live WPtel: [address] [place], [place] [address] Annual Well Visit 08/13/2017 Patient Education: Patient Medication Summary Completed 08/13/2017 Appointment: Sapna Live WPtel: [address] [place], [place] [id number] THROAT SWAB 02/13/2017 Patient Education: Patient Medication Summary Completed 02/13/2017 Appointment: Sapna Live WPtel: [address] [place], [place] [phone] BP CHECK 11/17/2016 Patient Education: Patient Medication Summary Completed 11/17/2016 Visit Plan: Due for colonoscopy in 2018 Had shingles shot and flu shot Change quinapril hct to plain quinapril and see if muscles twitches improve Fwup with Dr. Braga Lab discussed Discussed diet/exercise at length Check CT abdomen Recheck 3mos 07/19/2016 Appointment: Sapna Live WPtel: [address] [place] [address] 07/18 confirmed`sl PHYSICAL 07/19/2016 Patient Education: Patient [...] earliest convenience 06/09/2016 Appointment: Sobia Monreal WPtel: [address] [place], [place] [id number] ACUTE ILLNESS 06/09/2016 Patient Education: Patient Medication Summary Completed 06/09/2016 Referral: Demario Braga WPtel: [facility] [address] Referral Initiated 11/12/2015 Visit Plan: Continue indwelling catheter until follow-up with Dr. Braga Continue Bactrim and Cipro Pyridium TID for Bladder spasms 11/08/2015 Appointment: Chelsie Teixeira WPtel: [address] [place], [place] [phone] ER Follow UP 11/08/2015 Patient Education: Patient Medication Summary Completed 11/08/2015 Referral: Abdiel Tucker WPtel: [address] [facility] Referral Initiated 06/21/2015 Visit Plan: Prednisone 20mg daily for 1w [place] See surgery of cyst removal 06/14/2015 Appointment: Sapna Live WPtel: [address] [place], [place] [phone] 06/11 cn 06/14 cn FOLLOW UP 2014 Patient Education: Patient Medication Summary Completed 06/14/2015 Visit Plan: Warm moist compresses to Lef t shoulder lesion and apply topical Mupirocin twice daily Complete Cephalexin x 7 days as directed Resume Culturelle daily 05/18/2015 Appointment: Chelsie Teixeira WPtel: [address] [place], [place] [id number] ACUTE ILLNESS 05/18/2015 Patient Education: Patient Medication Summary Completed 05/18/2015 Visit Plan: Check fasting lab Use pain m eds prn with miralax on the day that takes pain meds 02/22/2015 Appointment: Sapna Live WPtel: [address] [place], [place] [phone] 02/19 [facility] 02/19 appt confirmed-lb ACUTE ILLNESS 5 Patient Education: Patient Medication Summary Completed 02/22/2015 Visit Plan: Increase neurontin to 300mg q HS Continue flexeril and tramadol Call in 1mo on how higher dose of gabapentin 12/02/2014 Appointment: Sapna Live WPtel: [address] [place], [place] [phone] FOLLOW UP 12/02/2014 Patient Education: Patient Medication Summary Completed 12/02/2014 Referral: Eric Angelo WPtel: [address] [place] [address] [place] Referral Appointment Confirmed 09/15/2014 Visit Plan: Proceed with pain doctor for possible injection vs nerve block Trial of lidoderm patch Cryotherapy to lesions as above 08/18/2014 Appointment: Sapna Live WPtel: [address] [place] [address] ACUTE ILLNESS 08/18/2014 Patient Education: Patient Medication Summary Completed 08/18/2014 Patient Education: Patient Medication Summary Completed 08/13/2014 Visit Plan: Continue current meds Obtain most recent lab results Check thoracic spine x-rays Needs updated CT scan of adrenal tumor 07/08/2014 Appointment: Sapna Live WPtel: [address] [place] [address] 07/07 vm NEW PATIENT 07/08/2014 Patient Education: Patient Medication Summary Completed 07/08/2014 Patient Education: Patient Medication Summary Completed 07/08/2014 Referral: Suhail Cardenas WPtel: [phone] [place] [address] [place] Referral Completed Referral: Toby Bettencourt WPtel: [address] [address] [place] Referral Completed Referral: Rosario Monahan WPtel: [facility] [place] Referral Appointment Requested Instructions Comment . [...]
--- OUTSIDE RECORDS SUMMARY | 2020-02-05 07:59 | XMS REPORT | CCD ---
Author Author Jai Live D.O. Organization [facility] Address [address] [place] [address] Phone Care Team Providers Care Soda Maker Name Role Phone Sapna Live D.O., PP Unavailable CCM Unavailable Summary Purpose Interface Exchange Insurance Providers Payer name Policy type / Coverage type Covered constitution party ID Effective Begin Date Effective End Date GPA Commercial Insurance [id number] 2019 Unknown Family history Mother Diagnosis Age At Onset Cancer Unknown Father Diagnosis Age At Onset Congestive heart failure Unknown Coronary Artery Disease(CAD) Unknown Social History Social History Element Codes Description Effective Dates Tobacco history SNOMED CT: 1647319 Former smoker 10/09/2018 Marital status Unknown 07/08/2014 Number of children Unknown 1 07/08/2014 Employment Unknown Currently employed [employer] 07/08/[address]: 776724729 Never drinks alcohol 2013 Has the patient [...] Fill Instructions tramadol 50 mg tablet RxNorm: 180915 1 Tablet(s) Oral t hree times a day as needed for pain along with two tylenol 09/29/2019 No Stop Date Active quinapril 40 mg tablet RxNorm: 888325 1 Tablet(s) Oral QD 09/18/2019 03/15/2020 Active Patient requests 90 days supply tramadol 50 mg tablet RxNorm: 655226 1 Tablet(s) Oral t hree times a day as needed for pain along with two tylenol 08/28/2019 08/28/2019 Inactive tramadol 50 mg tablet RxNorm: 816186 1 Tablet(s) PO TID as needed for pain along with two tylenol 08/25/2019 08/27/2019 Inactive pantoprazole 40 mg tablet,delayed release RxNorm: 796672 1 Tabl et(s) Oral QD 08/13/2019 No Stop Date Active Vitamin D3 1,000 unit capsule RxNorm: 416962 1 Capsule(s) Oral QD 1 10/13/2018 No Stop Date Active tamsulosin 0.4 mg capsule RxNorm: 849409 1 Capsule(s) Oral QPM 07/26 No Stop Date Active Protonix 40 mg tablet,delayed release RxNorm: 370900 TA KE 1 TABLET BY MOUTH TWICE A DAY 08/04/2019 08/12/2019 Inactive Flagyl 500 mg tablet RxNorm: 228921 1 Tablet(s) Oral three time s a day 07/03/2019 07/13/2019 Inactive fluconazole 100 mg tablet RxNorm: 428463 1 Tablet(s) Oral QD 201807/10/2019 Inactive Bactrim DS 800 mg-160 mg tablet RxNorm: 818047 1 Tablet(s) Oral two times a day 07/03/2019 07/13/2019 Inactive nystatin 100,000 unit/gram topical cream RxNorm: 777322 Application Topical two times a day 07/03/2019 08/12/2019 Inactive gabapentin 600 mg tablet RxNorm: 520375 Tablet(s) TAKE 1 TABLET BY MOUTH EVERY NIGHT AT BEDTIME 06/25/2019 08/12/2019 Inactive - First Attempt Ref: [id number] quinapril 40 mg tablet RxNorm: 730412 1 Tablet(s) Oral QD 06/23/2019 09/17/2019 Inactive Patient requests 90 days supply tramadol 50 mg tablet RxNorm: 965943 1 Tablet(s) PO TID as needed for pain along with two tylenol 05/23/2019 08/24/2019 Inactive hydroxyzine HCl 25 mg tablet RxNorm: 804616 1 Tablet(s) PO TID as needed 05/21/2019 08/12/2019 Inactive Elimite 5 % topical cream RxNorm: 596343 1 Application TOP QHS apply head to toe and was off in morning 05/19/2019 07/02/2019 Inactive Protonix 40 mg tablet,delayed release RxNorm: 471345 1 Tablet(s ) PO BID 05/05/2019 08/02/2019 Inactive - First Attempt Ref: [id number] gabapentin 600 mg tablet RxNorm: 695372 Tablet(s) TAKE 1 TABLET BY MOUTH EVERY NIGHT AT BEDTIME 04/25/2019 06/24/2019 Inactive - First Attempt Ref: [id number] tramadol 50 mg tablet RxNorm: 906464 1 Tablet(s) PO TID as needed for pain along with two tylenol 04/21/2019 05/22/2019 Inactive quinapril 40 mg tablet RxNorm: 903552 1 Tablet(s) PO QD 04/01/2019 Inactive Patient requests 90 days supply fenofibrate micronized 134 mg capsule RxNorm: 013996 1 Capsule(s) PO QD Due for updated fasting labs 03/31/2019 08/12/2019 Inactive dicyclomine 10 mg capsule RxNorm: 034704 1 Capsule(s) PO TID as needed 02/24/2019 05/20/2019 Inactive Flagyl 500 mg tablet RxNorm: 951287 1 Tablet(s) PO Q8H 02/24/201908/2019 Inactive ciprofloxacin 500 mg tablet RxNorm: 025782 1 Tablet(s) PO BID 02/2403/09/2019 Inactive Flagyl 500 mg tablet RxNorm: 932693 1 Tablet(s) PO Q6H 01/30/2019 Inactive ciprofloxacin 500 mg tablet RxNorm: 896122 1 Tablet(s) PO BID 01/3001/29/2019 Inactive Flagyl 500 mg tablet RxNorm: 967891 1 Tablet(s) PO Q6H 01/30/201904/2019 Inactive ciprofloxacin 500 mg tablet RxNorm: 678398 1 Tablet(s) PO BID 01/3002/05/2019 Inactive gabapentin 600 mg tablet RxNorm: 948691 TAKE 1 TABLET B Y MOUTH EVERY NIGHT AT BEDTIME 01/27/2019 04/24/2019 Inactive - First Attempt Ref: [id number] tramadol 50 mg tablet RxNorm: 330328 1 Tablet(s) PO TID as needed for pain along with two tylenol 01/08/2019 04/20/2019 Inactive fenofibrate micronized 134 mg capsule RxNorm: 020487 1 Capsule(s) PO QD Due for updated fasting labs 01/02/2019 03/30/2019 Inactive quinapril 40 mg tablet RxNorm: 282280 1 Tablet(s) PO QD 01/01/2019 Inactive Patient requests 90 days supply Protonix 40 mg tablet,delayed release RxNorm: 421244 TA KE 1 TABLET BY MOUTH TWICE A DAY 01/01/2019 03/31/2019 Inactive - First Attempt Ref: [id number] Protonix 40 mg tablet,delayed release RxNorm: 721121 TA KE 1 TABLET BY MOUTH TWICE A DAY 12/25/2018 12/31/2018 Inactive - First Attempt Ref: [id number] gabapentin 600 mg tablet RxNorm: 953849 TAKE 1 TABLET B Y MOUTH EVERY NIGHT AT BEDTIME 12/02/2018 01/26/2019 Inactive - First Attempt Ref: [id number] Protonix 40 mg tablet,delayed release RxNorm: 641507 1 Tablet(s ) PO BID 11/11/2018 12/24/2018 Inactive Protonix 40 mg tablet,delayed release RxNorm: 823393 1 Tablet(s ) PO BID 10/09/2018 11/10/2018 Inactive gabapentin 600 mg tablet RxNorm: 094497 1 Tablet(s) PO QHS 10/09/1912/01/2018 Inactive quinapril 40 mg tablet RxNorm: 589173 1 Tablet(s) PO QD 1 TABLE T(S) PO QD 08/08/2018 08/07/2018 Inactive Patient requests 9 0 days supply quinapril 40 mg tablet RxNorm: 249996 1 Tablet(s) PO QD 08/08/2018 Inactive Patient requests 90 days supply meloxicam 15 mg tablet RxNorm: 755962 1 Tablet(s) PO QD 08/08/2018 Inactive gabapentin 300 mg capsule RxNorm: 812280 1 CAPSULE(S) P O QHS DUE FOR WELLNESS VISIT 08/07/2018 10/08/2018 Inactive due for followup meloxicam 15 mg tablet RxNorm: 686877 Tablet(s) 1 TABLET(S) PO QD 1 10/07/2017 08/07/2018 Inactive fenofibrate micronized 134 mg capsule RxNorm: 560506 1 Capsule(s) PO QD Needs updated fasting labs!!!!!! 07/08/2018 07/07/2018 Inactive fenofibrate micronized 134 mg capsule RxNorm: 156360 1 Capsule( s) PO QD 07/08/2018 01/01/2019 Inactive fenofibrate micronized 134 mg capsule RxNorm: 954291 1 Capsule(s) PO QD Needs updated fasting labs!!!!!! 06/21/2018 07/08/2018 Inactive Medrol (Daniel) 4 mg tablets in a dose pack RxNorm: 575697 Tablet(s) PO As Directed 05/06/2018 05/05/2018 Inactive Medrol (Daniel) 4 mg tablets in a dose pack RxNorm: 189466 Tablet(s) PO As Directed 05/06/2018 08/07/2018 Inactive quinapril 40 mg tablet RxNorm: 315616 1 TABLET(S) PO QD 05/02/2018 Inactive Patient requests 90 days supply fenofibrate micronized 134 mg capsule RxNorm: 494545 1 Capsule(s) PO QD Needs updated fasting labs 04/29/2018 05/28/2018 Inactive Move [facility] 750 mg-100 mg-1.65 mg-108 mg tablet R xNorm: 1 Tablet(s) PO QD 02/12/2018 03/13/2018 Inactive fenofibrate micronized 134 mg capsule RxNorm: 270298 Ca psule(s) 1 CAPSULE(S) PO QD 01/29/2018 06/21/2018 Inactive quinapril 40 mg tablet RxNorm: 258988 1 TABLET(S) PO QD 11/26/2017 Inactive Patient requests 90 days supply fenofibrate micronized 134 mg capsule RxNorm: 783684 1 CAPSULE( S) PO QD 11/06/2017 01/29/2018 Inactive gabapentin 300 mg capsule RxNorm: 774950 1 CAPSULE(S) P O QHS DUE FOR WELLNESS VISIT 10/24/2017 07/20/2018 Inactive due for followup meloxicam 15 mg tablet RxNorm: 936038 1 TABLET(S) PO QD 10/24/2017 Inactive quinapril 40 mg tablet RxNorm: 977670 1 Tablet(s) PO QD 10/24/2017 Inactive fenofibrate micronized 134 mg capsule RxNorm: 464846 1 Capsule( s) PO QD 08/22/2017 11/05/2017 Inactive fenofibrate micronized 134 mg capsule RxNorm: 421269 1 Capsule( s) PO QD 08/22/2017 08/21/2017 Inactive quinapril 20 mg tablet RxNorm: 280836 1 Tablet(s) PO QD 08/13/2017 Inactive gabapentin 300 mg capsule RxNorm: 480263 1 Capsule(s) P O QHS Due for wellness visit 08/06/2017 10/23/2017 Inactive due for followup gabapentin 300 mg capsule RxNorm: 895184 1 Capsule(s) P O QHS Due for wellness visit 08/02/2017 08/05/2017 Inactive due for followup meloxicam 15 mg tablet RxNorm: 534432 1 Tablet(s) PO QD 08/01/2017 Inactive gabapentin 300 mg capsule RxNorm: 192304 1 Capsule(s) P O QHS Due for wellness visit 08/01/2017 08/01/2017 Inactive due for followup gabapentin 300 mg capsule RxNorm: 363525 1 Capsule(s) P O QHS Due for wellness visit 08/01/2017 08/02/2017 Inactive gabapentin 300 mg capsule RxNorm: 097258 1 Capsule(s) PO QHS 201605/12/2017 Inactive quinapril 10 mg tablet RxNorm: 018174 1 Tablet(s) PO QD replace s quinapril hct 02/12/2017 08/12/2017 Inactive meloxicam 15 mg tablet RxNorm: 562648 1 Tablet(s) PO QD 02/05/2017 Inactive quinapril 10 mg tablet RxNorm: 420636 1 Tablet(s) PO QD replace s quinapril hct 11/16/2016 02/12/2017 Inactive gabapentin 300 mg capsule RxNorm: 793546 1 Capsule(s) PO QHS 201602/12/2017 Inactive quinapril 10 mg tablet RxNorm: 985759 1 Tablet(s) PO QD replace s quinapril hct 10/16/2016 11/15/2016 Inactive gabapentin 300 mg capsule RxNorm: 394963 1 Capsule(s) PO QHS 201511/15/2016 Inactive quinapril 10 mg tablet RxNorm: 994870 1 Tablet(s) PO QD replace s quinapril hct 07/19/2016 10/15/2016 Inactive meloxicam 15 mg tablet RxNorm: 033682 1 Tablet(s) PO QD 07/10/2016 Inactive meloxicam 15 mg tablet RxNorm: 998514 TAKE ONE TABLET BY MOUTH LUKE Y 07/10/2016 07/09/2016 Inactive meloxicam 15 mg tablet RxNorm: 953105 1 Tablet(s) PO QD 07/06/2016 Inactive meloxicam 15 mg tablet RxNorm: 673713 1 Tablet(s) PO QD 06/09/2016 Inactive Multivitamin & Mineral Formula tablet RxNorm: 1 Tablet(s) PO Q D 06/02/2016 07/01/2016 Inactive tamsulosin 0.4 mg capsule RxNorm: 480917 1 Capsule(s) PO QHS 201507/01/2016 Inactive [facility] 750 mg-100 mg-1.65 mg-108 mg tablet R xNorm: 1 Tablet(s) PO QD 06/02/2016 07/01/2016 Inactive gabapentin 300 mg capsule RxNorm: 694675 1 Capsule(s) PO QHS 201508/27/2016 Inactive gabapentin 300 mg capsule RxNorm: 725200 Capsule(s) ALFONZO E ONE CAPSULE BY MOUTH AT BEDTIME 02/28/2016 05/27/2016 Inactive quinapril 10 mg-hydrochlorothiazide 12.5 mg tablet RxNorm: 3 46977 Tablet(s) TAKE ONE TABLET BY MOUTH EVERY MORNING 01/14/2016 07/18/2016 Inactive gabapentin 300 mg capsule RxNorm: 845888 TAKE ONE CAPSULE BY MO [facility] AT BEDTIME 12/28/2015 02/27/2016 Inactive Urecholine 25 mg tablet RxNorm: 894442 1 Tablet(s) PO TID 11/09/2015 07/18/2016 Inactive phenazopyridine 100 mg tablet RxNorm: 7367196 1 Tablet(s ) PO TID as needed for bladder spasms. 11/08/2015 11/08/2015 Inactive quinapril 10 mg-hydrochlorothiazide 12.5 mg tablet RxNorm: 3 02287 TAKE ONE TABLET BY MOUTH EVERY MORNING 10/15/2015 01/13/2016 Inactive gabapentin 300 mg capsule RxNorm: 720246 1 Tablet(s) PO QD TAKE ONE CAPSULE BY MOUTH EVERY NIGHT AT BEDTIME 09/23/2015 12/21/2015 Inactive quinapril 10 mg-hydrochlorothiazide 12.5 mg tablet RxNorm: 3 31908 Tablet(s) TAKE ONE TABLET BY MOUTH EVERY MORNING 07/14/2015 10/14/2015 Inactive gabapentin 300 mg capsule RxNorm: 202224 1 Tablet(s) PO QD TAKE ONE CAPSULE BY MOUTH EVERY NIGHT AT BEDTIME 06/25/2015 09/23/2015 Inactive prednisone 20 mg tablet RxNorm: 509874 1 Tablet(s) PO QD 06/14/2015 0 06/20/2015 Inactive cephalexin 500 mg capsule RxNorm: 742786 1 Capsule(s) PO BID 201405/27/2015 Inactive mupirocin 2 % topical ointment RxNorm: 772794 TOP BID 05/18/2015 0 06/13/2015 Inactive quinapril 10 mg-hydrochlorothiazide 12.5 mg tablet RxNorm: 3 01504 Tablet(s) TAKE ONE TABLET BY MOUTH EVERY MORNING 04/06/2015 07/14/2015 Inactive gabapentin 300 mg capsule RxNorm: 742715 1 Capsule(s) PO QHS 201404/01/2015 Inactive [SAVINGS FOR NON-COVERED LILIANA GS -- BIN:889777, PCN: ASPROD1, Group: XXXXX, ID# [id number], Questions: . THIS IS NOT INSURANCE.] gabapentin 300 mg capsule RxNorm: 263237 1 Capsule(s) PO QHS 201406/25/2015 Inactive [SAVINGS FOR NON-COVERED LILIANA GS -- BIN:330445, PCN: ASPROD1, Group: XXXXX, ID# [id number], Questions: . THIS IS NOT INSURANCE.] quinapril 10 mg-hydrochlorothiazide 12.5 mg tablet RxNorm: 3 58231 TAKE ONE TABLET BY MOUTH EVERY MORNING 12/11/2014 04/05/2015 Inactive gabapentin 300 mg capsule RxNorm: 585406 1 Capsule(s) PO QHS 201404/02/2015 Inactive [SAVINGS FOR NON-COVERED LILIANA GS -- BIN:983019, PCN: ASPROD1, Group: XXXXX, ID# [id number], Questions: . THIS IS NOT INSURANCE.] cyclobenzaprine 10 mg tablet RxNorm: 274361 1 Tablet(s) PO TID as needed for muscle spasm for muscle spasm 12/02/2014 02/21/2015 Inactive [S AVINGS FOR NON- COVERED DRUGS -- BIN:892225, PCN: ASPROD1, Group: XXXXX, ID# [id number], Questions: . THIS IS NOT INSURANCE.] gabapentin 100 mg capsule RxNorm: 955485 1 Capsule(s) PO QHS 201412/01/2014 Inactive [SAVINGS FOR NON-COVERED LILIANA GS -- BIN:187929, PCN: ASPROD1, Group: XXXXX, ID# [id number], Questions: . THIS IS NOT INSURANCE.] ibuprofen 800 mg tablet RxNorm: 998803 1 Tablet(s) PO T ID as needed low back pain 11/11/2014 11/23/2014 Inactive [SAVINGS FOR NON -COVERED DRUGS -- BIN:231214, PCN: ASPROD1, Group: XXXXX, ID# [id number], Questions: . THIS IS NOT INSURANCE.] ibuprofen 800 mg tablet RxNorm: 289998 1 Tablet(s) PO T ID as needed low back pain 11/09/2014 11/10/2014 Inactive [SAVINGS FOR NON -COVERED DRUGS -- BIN:543741, PCN: ASPROD1, Group: XXXXX, ID# [id number], Questions: . THIS IS NOT INSURANCE.] Zorvolex 35 mg capsule RxNorm: 7299851 1 Tablet(s) PO TID 08/27/2014 10/01/2014 Inactive [SAVINGS FOR UNINSURED PATIENTS -- BIN:0 42176, PCN: ASPROD1, Group: [id number], ID# [id number], Process claim through [email or web address], for questions: . THIS IS NOT INSURANCE.] quinapril 10 mg-hydrochlorothiazide 12.5 mg tablet RxNorm: 3 47734 1 Tablet(s) PO QAM 08/27/2014 11/24/2014 Inactive Lidoderm 5 % (700 mg/patch) adhesive patch RxNorm: 3227551 Application TOP for 12hours then off for pain 08/18/2014 02/21/2015 Inactive [SAVIN GS FOR UNINSURED PATIENTS -- BIN:043286, PCN: ASPROD1, Group: AME08, ID# [id number], Process claim through [email or web address], for questions: . THIS IS NOT INSURANCE.] Zorvolex 35 mg capsule RxNorm: 2186292 1 Tablet(s) PO TID 08/13/2014 08/12/2014 Inactive Zorvolex 35 mg capsule RxNorm: 0707450 1 Tablet(s) PO TID 08/13/2014 08/24/2014 Inactive [SAVINGS FOR UNINSURED PATIENTS -- BIN:0 83997, PCN: ASPROD1, Group: AME08, ID# [id number], Process claim through [email or web address], for questions: . THIS IS NOT INSURANCE.] Aspirin Child 81 mg chewable tablet RxNorm: 632882 1 Tablet(s) PO QD No Start Date Active ibuprofen 800 mg tablet RxNorm: 981892 1 Tablet(s) PO T ID as needed low back pain No Start Date 11/08/2014 Inactive cyclobenzaprine 10 mg tablet RxNorm: 881437 1 Tablet(s) PO TID No S tart Date 08/12/2017 Inactive garlic 1,000 mg capsule RxNorm: 895938 1 Capsule(s) PO QD No Start Date 04/22/2019 Inactive tramadol 50 mg tablet RxNorm: 327022 1 Tablet(s) PO Q4-6H as ne eded for pain No Start Date 02/21/2015 Inactive tramadol 50 mg tablet RxNorm: 209809 1 Tablet(s) PO TID as needed for pain along with two tylenol No Start Date 01/07/2019 Inactive krill oil oral RxNorm: 34625 oral No Start Date 11/11/2018 Inacti ve Vitamin D3 2,000 unit tablet RxNorm: 884309 1 Tablet(s) PO QD No St art Date 08/12/2019 Inactive gabapentin 100 mg tablet RxNorm: 230706 1 Tablet(s) PO QD No Start Date 11/10/2014 Inactive Zofran 4 mg tablet RxNorm: 140983 1 Tablet(s) PO Q6H as needed No S tart Date 08/12/2019 Inactive Elimite 5 % topical cream RxNorm: 199198 1 Application TOP QHS apply head to toe and was off in morning No Start Date 05/18/2019 Inactive gabapentin 100 mg capsule RxNorm: 231596 1 Capsule(s) PO QHS No Sta rt Date 11/10/2014 Inactive aspirin 325 mg tablet RxNorm: 919301 2 Tablet(s) PO QD No Start Date 08/17/2014 Inactive Fish Oil 1,000 mg capsule RxNorm: 1 Capsule(s) PO QD No Start Date 10/08/2018 Inactive quinapril 10 mg-hydrochlorothiazide 12.5 mg tablet RxNorm: 3 31200 1 Tablet(s) PO QAM No Start Date 08/26/2014 Inactive quinapril 40 mg tablet RxNorm: 298905 1 Tablet(s) PO QD No Start Da te 10/23/2017 Inactive Medrol (Daniel) 4 mg tablets in a dose pack RxNorm: 045762 Tablet(s) PO As Directed No Start Date 05/05/2018 Inactive Urecholine 25 mg tablet RxNorm: 479627 1 Tablet(s) PO TID No Start Date 11/08/2015 Inactive cyclobenzaprine 10 mg tablet RxNorm: 395054 1/2-1 Table t(s) PO TID as needed for muscle spasm No Start Date 12/01/2014 Inactive tamsulosin 0.4 mg capsule RxNorm: 314950 2 Capsule(s) PO QPM No Sta rt Date 08/12/2019 Inactive hydrocodone 5 mg-acetaminophen 325 mg tablet RxNorm: 815365 1 -2 Tablet(s) PO Q6H as needed No Start Date 05/20/2019 Inactive loratadine 10 mg tablet RxNorm: 684188 1 Tablet(s) PO QD No Start D ate 07/07/2014 Inactive Medication Administered No Medication Administered data Immunizations Vaccine Codes Date Status Influenza CVX: 141 07/21/2019 Results Observation Observation Code Item Item Code Result Date [facility] Location CULTURE, URINE, ROUTINE 395 CULTURE SEE NOTE 1 10/15/2018 [facility] Bec[facility] [address] [place] [address] CULTURE, URINE, ROUTINE 395 CULTURE, URINE, ROUTINE SEE NOTE 08/15/2019 Z[facility] Becerra [address] [place] [address] CBC (H/H, RBC, INDICES, WBC, PLT) 71027 WHITE BLOOD CELL COU NT 7.9 Thousand/uL 08/14/2019 [facility] Becerra [address] [place] [address] CBC (H/H, RBC, INDICES, WBC, PLT) 04266 RED BLOOD CELL COUNT 4.93 Million/uL 08/14/2019 Zay Becerra [address] [place] [address] CBC (H/H, RBC, INDICES, WBC, PLT) 44037 HEMOGLOBIN 15 .4 g/dL 08/14/2019 [facility] [address] [address] CBC (H/H, RBC, INDICES, WBC, PLT) 15518 HEMATOCRIT 45 .0 % 08/14/[address] [facility] [address] CBC (H/H, RBC, INDICES, WBC, PLT) 61924 MCV 91 .3 fL 08/14/[address] [facility] [address] CBC (H/H, RBC, INDICES, WBC, PLT) 78458 MCH 31 .2 pg 08/14/2019 [facility] [address] CBC (H/H, RBC, INDICES, WBC, PLT) 97464 MCHC 34 .2 g/dL 08/14/2019 [facility] [address] CBC (H/H, RBC, INDICES, WBC, PLT) 01269 RDW 12 .7 % 08/14/2019 [facility] [address] CBC (H/H, RBC, INDICES, WBC, PLT) 58166 PLATELET COUNT 214 Thousand/uL 08/14/2019 [facility] [address] CBC (H/H, RBC, INDICES, WBC, PLT) 34388 MPV 11 .5 fL 08/14/[address] [facility] [address] COMPREHENSIVE METABOLIC PANEL 16295 Glucose 113 mg /dL 08/14/[address] [facility] [address] [address] COMPREHENSIVE METABOLIC PANEL 92446 UREA NITROGEN (BUN) 16 mg/dL 08/14/2019 [facility] [address] COMPREHENSIVE METABOLIC PANEL 04726 CREATININE 0.86 m g/dL 08/14/2019 [facility] [address] COMPREHENSIVE METABOLIC PANEL 57764 eGFR NON-AFR. IRANIAN 92 mL/min/1.73m2 08/14/2019 [facility] [address] COMPREHENSIVE METABOLIC PANEL 87659 eGFR 106 mL/min/1.73m2 08/14/2019 [facility] [address] COMPREHENSIVE METABOLIC PANEL 17948 BUN/CREATININE RATIO NOT APPLICABLE (calc) 08/14/[address] [address] COMPREHENSIVE METABOLIC PANEL 52080 SODIUM 141 mm ol/L 08/14/2019 [facility] [address] COMPREHENSIVE METABOLIC PANEL 73587 POTASSIUM 4.1 mm ol/L 08/14/2019 [facility] [address] COMPREHENSIVE METABOLIC PANEL 83143 CHLORIDE 102 mm ol/L 08/14/2019 [facility] [address] COMPREHENSIVE METABOLIC PANEL 05133 CARBON DIOXIDE 28 mmol/L 08/14/[address] [facility] [address] COMPREHENSIVE METABOLIC PANEL 81084 CALCIUM 9.7 mg /dL 08/14/2019 [facility] [address] COMPREHENSIVE METABOLIC PANEL 69991 PROTEIN, TOTAL 6. 7 g/dL 08/14/2019 [facility] [address] COMPREHENSIVE METABOLIC PANEL 96798 ALBUMIN 4.3 g/ dL 08/14/2019 [facility] [address] COMPREHENSIVE METABOLIC PANEL 03449 GLOBULIN 2.4 g/ dL(calc) 08/14/[address] [address] COMPREHENSIVE METABOLIC PANEL 33258 ALBUMIN/GLOBULIN RATIO 1.8 (calc) 08/14/2019 [facility] [address] COMPREHENSIVE METABOLIC PANEL 14504 BILIRUBIN, TOTAL 1.0 mg/dL 08/14/2019 [facility] [address] COMPREHENSIVE METABOLIC PANEL 90344 ALKALINE PHOSPHATASE 56 U/L 08/14/2019 [facility] [address] COMPREHENSIVE METABOLIC PANEL 46099 AST 18 U/L 08/14/2019 [facility] [address] [place] [address] COMPREHENSIVE METABOLIC PANEL 06361 ALT 28 U/L 08/14/2019 [facility] [address] [address] MAGNESIUM 31188 MAGNESIUM 2.0 mg/dL 06/06/2019 [facility] [address] [address] COMPREHENSIVE METABOLIC PANEL 83107 Glucose 106 mg /dL 06/06/2019 [facility] [address] [address] COMPREHENSIVE METABOLIC PANEL 09269 UREA NITROGEN (BUN) 22 mg/dL 06/06/2019 [facility] [address] [address] COMPREHENSIVE METABOLIC PANEL 41325 CREATININE 1.29 m g/dL 06/06/2019 [facility] [address] [address] COMPREHENSIVE METABOLIC PANEL 72765 eGFR NON-AFR. IRANIAN 58 mL/min/1.73m2 06/06/2019 [facility] [address] [address] COMPREHENSIVE METABOLIC PANEL 67608 eGFR 67 mL/min/1.73m2 06/06/2019 [facility] [address] [address] COMPREHENSIVE METABOLIC PANEL 81649 BUN/CREATININE RATIO 17 (calc) 06/06/2019 [facility] [address] [place] [address] COMPREHENSIVE METABOLIC PANEL 09262 SODIUM 138 mm ol/L 06/06/2019 [facility] [address] [address] COMPREHENSIVE METABOLIC PANEL 50309 POTASSIUM 4.2 mm ol/L 06/06/2019 [facility] [address] [address] COMPREHENSIVE METABOLIC PANEL 66351 CHLORIDE 101 mm ol/L 06/06/2019 [facility] [address] [address] COMPREHENSIVE METABOLIC PANEL 22960 CARBON DIOXIDE 29 mmol/L 06/06/2019 [facility] [address] [address] COMPREHENSIVE METABOLIC PANEL 08056 CALCIUM 9.6 mg /dL 06/06/[address] [facility] [address] COMPREHENSIVE METABOLIC PANEL 35304 PROTEIN, TOTAL 6. 9 g/dL 06/06/2019 [facility] [address] COMPREHENSIVE METABOLIC PANEL 81524 ALBUMIN 4.4 g/ dL 06/06/2019 [facility] [address] COMPREHENSIVE METABOLIC PANEL 72789 GLOBULIN 2.5 g/ dL(calc) 06/06/2019 [facility] [address] COMPREHENSIVE METABOLIC PANEL 33292 ALBUMIN/GLOBULIN RATIO 1.8 (calc) 06/06/2019 [facility] [address] COMPREHENSIVE METABOLIC PANEL 75650 BILIRUBIN, TOTAL 0.7 mg/dL 06/06/2019 [facility] [address] COMPREHENSIVE METABOLIC PANEL 05354 ALKALINE PHOSPHATASE 45 U/L 06/06/2019 [facility] [address] COMPREHENSIVE METABOLIC PANEL 89203 AST 21 U/L 06/06/2019 [facility] [address] COMPREHENSIVE METABOLIC PANEL 37257 ALT 34 U/L 06/06/2019 [facility] [address] CULTURE, URINE, ROUTINE 395 CULTURE, URINE, ROUTINE SEE NOTE 04/23/2019 [facility] [address] CULTURE, URINE, ROUTINE 395 CULTURE SEE NOTE 0 04/23/2019 [facility] [address] EXTRA 1014 EXTRA TUBE RECEIVED 04/22 [facility] [address] EXTRA 1014 SPECIMEN TYPE RECEIVED: LAV 0 04/22/2019 [facility] [address] COMPREHENSIVE METABOLIC PANEL 60831 Glucose 94 mg/ dL 04/22/2019 [facility] [address] COMPREHENSIVE METABOLIC PANEL 42285 UREA NITROGEN (BUN) 20 mg/dL 04/22/2019 [facility] [address] COMPREHENSIVE METABOLIC PANEL 72443 CREATININE 1.30 m g/dL 04/22/2019 [facility] [address] COMPREHENSIVE METABOLIC PANEL 16456 eGFR NON-AFR. IRANIAN 58 mL/min/1.73m2 04/22/2019 [facility] [address] [address] COMPREHENSIVE METABOLIC PANEL 82004 eGFR 67 mL/min/1.73m2 04/22/2019 [facility] [address] COMPREHENSIVE METABOLIC PANEL 00370 BUN/CREATININE RATIO 15 (calc) 04/22/2019 [facility] [address] COMPREHENSIVE METABOLIC PANEL 18114 SODIUM 139 mm ol/L 04/22/2019 [facility] [address] COMPREHENSIVE METABOLIC PANEL 33297 POTASSIUM 4.2 mm ol/L 04/22/2019 [facility] [address] COMPREHENSIVE METABOLIC PANEL 66302 CHLORIDE 104 mm ol/L 04/22/2019 [facility] [address] COMPREHENSIVE METABOLIC PANEL 70361 CARBON DIOXIDE 27 mmol/L 04/22/2019 [facility] [address] COMPREHENSIVE METABOLIC PANEL 54774 CALCIUM 9.9 mg /dL 04/22/2019 [facility] [address] COMPREHENSIVE METABOLIC PANEL 72954 PROTEIN, TOTAL 7. 1 g/dL 04/22/2019 [facility] [address] COMPREHENSIVE METABOLIC PANEL 12782 ALBUMIN 4.6 g/ dL 04/22/2019 [facility] [address] COMPREHENSIVE METABOLIC PANEL 70870 GLOBULIN 2.5 g/ dL(calc) 04/22/2019 [facility] [address] COMPREHENSIVE METABOLIC PANEL 54644 ALBUMIN/GLOBULIN RATIO 1.8 (calc) 04/22/[address] [facility] [address] [address] COMPREHENSIVE METABOLIC PANEL 99021 BILIRUBIN, TOTAL 0.4 mg/dL 04/22/[address] [address] COMPREHENSIVE METABOLIC PANEL 36328 ALKALINE PHOSPHATASE 53 U/L 04/22/[address] [address] COMPREHENSIVE METABOLIC PANEL 05934 AST 21 U/L 04/22/2019 [facility] [address] COMPREHENSIVE METABOLIC PANEL 87999 ALT 34 U/L 04/22/[address] [address] CULTURE, URINE, ROUTINE 395 CULTURE, URINE, ROUTINE SEE NOTE 01/31/[address] [address] Procedures Procedure Codes Date URINALYSIS NONAUTO W/O SCOPE CPT-4: 38583 10/02/2019 URINE CULTURE/ COLONY COUNT CPT-4: 15484 10/02/2019 ROUTINE VENIPUNCTURE CPT-4: 17642 08/13/2019 URINALYSIS NONAUTO W/O SCOPE CPT-4: 42306 08/13/2019 CULTURE, URINE, ROUTINE CPT-4: 395 08/13/2019 COMPREHENSIVE METABOLIC PANEL CPT-4: 86352 08/13/2019 CBC (H/H, RBC, INDICES, WBC, PLT) CPT-4: 89406 2018 COMPREHENSIVE METABOLIC PANEL CPT-4: 62985 06/05/2019 MAGNESIUM CPT-4: 32168 06/05/2019 DEXAMETHASONE SODIUM PHOS CPT-4: J1100 05/21/2019 THER/PROPH/DIAG INJ SC/IM CPT-4: 54659 05/21/2019 TRIAMCINOLONE ACET INJ NOS CPT-4: J3301 05/21/2019 ROUTINE VENIPUNCTURE CPT-4: 11336 04/21/2019 COMPREHENSIVE METABOLIC PANEL CPT-4: 10604 04/21/2019 EXTRA CPT-4: 1014 04/21/2019 CULTURE, URINE, ROUTINE CPT-4: 395 04/21/2019 URINALYSIS NONAUTO W/O SCOPE CPT-4: 76728 04/21/2019 URINALYSIS NONAUTO W/O SCOPE CPT-4: 10774 01/29/2019 CULTURE, URINE, ROUTINE CPT-4: 395 01/29/2019 DRAIN/INJECT JOINT/BURSA CPT-4: 90940 02/19/2018 TRIAMCINOLONE ACET INJ NOS CPT-4: J3301 02/19/2018 DEXAMETHASONE SODIUM PHOS CPT-4: J1100 02/19/2018 THER/PROPH/DIAG INJ SC/IM CPT-4: 14036 02/12/2018 TRIAMCINOLONE ACET INJ NOS CPT-4: J3301 02/12/2018 DEXAMETHASONE SODIUM PHOS CPT-4: J1100 02/12/2018 CEFTRIAXONE SODIUM INJECTION CPT-4: J0696 12/03/2017 THER/PROPH/DIAG INJ SC/IM CPT-4: 04979 12/03/2017 THER/PROPH/DIAG INJ SC/IM CPT-4: 89104 12/03/2017 METHYLPREDNISOLONE INJECTION CPT-4: J2930 12/03/2017 URINALYSIS NONAUTO W/O SCOPE CPT-4: 75541 08/13/2017 STREP A ASSAY W/OPTIC CPT-4: 57124 02/13/2017 DESTRUCT PREMALG LESION (Cryosurgery) CPT-4: 35896 Vital Signs Date Vital 10/02/2019 Blood Pressure [...] 1: 128/78 Code: 8480-6 BMI: 36.0 Code: 99127-2 Heart Rate 1: 68 bpm Height: 5'7" [...] 1: 138/86 Code: 8480-6 BMI: 35.6 Code: 06991-2 Heart Rate 1: 68 bpm Height: 5'7" SpO2: 95% Temperature: 36.6 (C) / 97.8 (F) Weight: 227 lbs 12/03/2017 Blood Pressure 1: 134/84 Code: 8480-6 BMI: 34.3 Code: 80014-3 Heart Rate 1: 68 bpm Height: 5'7" Respiratory Rate: 20 bpm SpO2: 96% Tempera ture: 35.9 (C) / 96.6 (F) Weight: 219 lbs 09/11/2017 Blood Pressure 1: 140/86 Code: 8480-6 BMI: 34.9 Code: 03123-5 Heart Rate 1: 84 bpm Height: 5'7" Respiratory Rate: 20 bpm SpO2: 95% Tempera ture: 36.7 (C) / 98.1 (F) Weight: 223 lbs 08/13/2017 Blood Pressure 1: 142/94 Code: 8480-6 BMI: 34.5 Code: 17901-4 Heart Rate 1: 76 bpm Height: 5'7" Respiratory Rate: 20 bpm SpO2: 96% Tempera ture: 37.1 (C) / 98.8 (F) Weight: 220 lbs 11/17/2016 Blood Pressure 1: 118/78 Code: 8480-6 art Rate 1: 64 bpm 07/19/2016 Blood Pressure 1: 112/58 Code: 8480-6 BMI: 31.6 Code: 86147-6 Heart Rate 1: 88 bpm Height: 5'7" Respiratory Rate: 22 bpm SpO2: 98% Tempera ture: 36.3 (C) / 97.4 (F) Weight: 202 lbs 06/09/2016 Blood Pressure 1: 138/84 Code: 8480-6 BMI: 32.1 Code: 89052-2 Heart Rate 1: 58 bpm Height: 5'7" Respiratory Rate: 20 bpm SpO2: 97% Tempera ture: 36.6 (C) / 97.8 (F) Weight: 205 lbs 11/08/2015 Blood Pressure 1: 142/80 Code: 8480-6 BMI: 32.4 Code: 71387-1 Heart Rate 1: 76 bpm Height: 5'7" Respiratory Rate: 20 bpm Temperature: 36 .6 (C) / 97.9 (F) Weight: 207 lbs 06/14/2015 Blood Pressure 1: 126/80 Code: 8480-6 Heart Rate 1: 84 bpm Respiratory Rate: 20 bpm Temperature: 36.8 (C) / 98.2 (F) Weight: 206 lbs 05/18/2015 Blood Pressure 1: 124/80 Code: 8480-6 BMI: 32.3 Code: 50054-3 Heart Rate 1: 68 bpm Height: 5'7" Respiratory Rate: 20 bpm Temperature: 36 .4 (C) / 97.6 (F) Weight: 206 lbs 02/22/2015 Blood Pressure 1: 126/78 Code: 8480-6 BMI: 32.1 Code: 62555-4 Heart Rate 1: 76 bpm Height: 5'7" Respiratory Rate: 20 bpm Temperature: 36 .6 (C) / 97.9 (F) Weight: 205 lbs 12/02/2014 Blood Pressure 1: 124/80 Code: 8480-6 BMI: 32.7 Code: 76650-4 Heart Rate 1: 70 bpm Height: 5'7" Respiratory Rate: 18 bpm Temperature: 36 .6 (C) / 97.9 (F) Weight: 209 lbs 08/18/2014 Blood Pressure 1: 132/94 Code: 8480-6 BMI: 34.5 Code: 71639-5 Heart Rate 1: 84 bpm Height: 5'6" Respiratory Rate: 20 bpm Temperature: 36 .6 (C) / 97.9 (F) Weight: 217 lbs 07/08/2014 Blood Pressure 1: 142/88 Code: 8480-6 BMI: 34.3 Code: 88836-2 Heart Rate 1: 72 bpm Height: 5'6" [...] R10.2] Diagnosis: Aortic regurgitation[ICD10: I35.1] Sapna LIVE [employer] CPT-4: 61454 10/02/2019 ([id number]) OFFICE/OUTPATIENT VISIT EST Diagnosis: Chest pain[ICD10: R07.9] Lashell Joe SAPNA BILLINGS [facility] CPT-4: 23388 08/25/2019 ([id number]) OFFICE/OUTPATIENT VISIT EST Diagnosis: Thoracic back pain[ICD10: M54.6] Diagnosis: Disorder of kidney and ureter, unspecified[ICD10: N28.9] Diagnosis: Personal history of nicotine dependence[ICD10: Z87.891] 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] Lashell AU DO [facility] CPT-4: 28119 08/13/2019 ([id number]) OFFICE/OUTPATIENT VISIT EST Diagnosis: Sigmoid diverticulitis[ICD10: K57.32] Diagnosis: Renal insufficiency[ICD10: N28.9] Diagnosis: Jock itch[ICD10: B35.6] Sapna PARDO DO [facility] CPT-4: 45449 07/03/2019 ([id number]) OFFICE/OUTPATIENT VISIT EST Diagnosis: Cramp and spasm[ICD10: R25.2] Diagnosis: Disorder of kidney and ureter, unspecified[ICD10: N28.9] Lashell LIVE DO [facility] CPT-4: 90157 06/05/2019 ([id number]) OFFICE/OUTPATIENT VISIT EST Diagnosis: Other pruritus[ICD10: L29.8] Diagnosis: Pain in right knee[ICD10: M25.561] Lashell LIVE [employer] [facility] CPT-4: 78404 05/21/2019 ([id number]) NURSE/OUTPATIENT VISIT EST Diagnosis: Edema, unspecified[ICD10: R60.9] Sapna LIVE DO [facility] CPT-4: 77295 04/21/2019 ([id number]) OFFICE/OUTPATIENT VISIT EST Diagnosis: Diverticulitis of large intestine without perforation or abscess without bleeding[ICD10: K57.32] Diagnosis: Snoring[ICD10: R06.83] Diagnosis: Other constipation[ICD10: K59.09] Lashell LIVE DO [facility] CPT-4: 10813 02/24/2019 ([id number]) OFFICE/OUTPATIENT VISIT EST Diagnosis: Diverticulitis of large intestine without perforation or abscess with bleeding[ICD10: K57.33] Nancy CORRAL Vickie LIVE [employer] [facility] CPT-4: 50878 02/04/2019 ([id number]) OFFICE/OUTPATIENT VISIT EST Diagnosis: Left lower quadrant pain[ICD10: R10.32] Nancy LORA JefryAmarjit BUZZ MARIE [facility] CPT-4: 56979 01/29/2019 OFFICE/OUTPATIENT VISIT EST Diagnosis: Dermatitis, unspecified[ICD10: L30.9] Diagnosis: Gastro-esophageal reflux disease without esophagitis[ICD10: K21.9] Diagnosis: Palpitations[ICD10: R00.2] Sapna AU [facility] CPT-4: 39013 12/19/2018 ([id number]) OFFICE/OUTPATIENT VISIT EST Diagnosis: Gastro-esophageal reflux disease without esophagitis[ICD10: K21.9] Diagnosis: Dysphagia, pharyngoesophageal phase[ICD10: R13.14] Sapna LIVE DO [facility] CPT-4: 47458 11/11/2018 ([id number]) PREV VISIT EST AGE 40-64 Diagnosis: Encounter [...] disorders of digestive system[ICD10: K91.89] Lashell LIVE [employer] [facility] CPT-4: 99 396 10/09/2018 ([id number]) OFFICE/OUTPATIENT VISIT EST Diagnosis: Pain in right knee[ICD10: M25.561] Diagnosis: Pain in right hip[ICD10: M25.551] Lashell LIVE [employer] [facility] CPT-4: 69301 02/12/2018 OFFICE/OUTPATIENT VISIT EST Diagnosis: Essential (primary) hypertension[ICD10: I10] Diagnosis: Other chest pain[ICD10: R07.89] Lashell LIVE [employer] [facility] CPT-4: 38971 12/03/2017 ([id number]) OFFICE/OUTPATIENT VISIT EST Diagnosis: Essential (primary) hypertension[ICD10: I10] Sapna LIVE [facility] CPT-4: 58176 09/11/2017 ([id number]) PREV VISIT EST AGE 40-64 Diagnosis: Encounter for general adult medical examination without abnormal findings[ICD10: Z00.00] Diagnosis: Essential (primary) hypertension[ICD10: I10] Diagnosis: Left lower quadrant pain[ICD10: R10.32] Diagnosis: Left upper quadrant pain[ICD10: R10.12] Diagnosis: Other intervertebral disc degeneration, 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] Sapna LIVE [employer] [facility] CPT-4: 46511 08/13/2017 ([id number]) OFFICE/OUTPATIENT VISIT EST Diagnosis: Acute pharyngitis, unspecified[ICD10: J02.9] Sapna LIVE [facility] CPT-4: 63279 02/13/2017 ([id number]) PREV VISIT EST AGE 40-64 Diagnosis: Encounter for general adult medical examination without abnormal findings[ICD10: Z00.00] Diagnosis: Essential (primary) hypertension[ICD10: I10] 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] Sapna CappsAmarjit BUZZ [facility] CPT-4: 97247 07/19/2016 OFFICE/OUTPATIENT VISIT EST Diagnosis: Pain in thoracic spine[ICD10: M54.6] Diagnosis: Disorder of the skin and subcutaneous tissue, unspecified[ICD10: L98.9] Sobia Monreal SAPNA JefryAmarjit BUZZ [facility] CPT-4: 54772 06/09/2016 OFFICE/OUTPATIENT VISIT EST Diagnosis: Retention of urine, unspecified[ICD10: R33.9] Diagnosis: Urinary tract infection, site not specified[ICD10: N39.0] Chelsie Teixeira SAPNA JefryAmarjit BUZZ [facility] CPT-4: 34078 11/08/2015 ([id number]) OFFICE/OUTPATIENT VISIT EST Diagnosis: DERMATITIS NOS[ICD9: 692.9] Diagnosis: SEBACEOUS CYST[ICD9: 706.2] Sapna Rosagustabo SAPNA Johnston Claudio DANITZA [facility] CPT-4: 19040 06/14/2015 OFFICE/OUTPATIENT VISIT EST Diagnosis: LOCAL SKIN INFECTION[ICD9: 686.9] Diagnosis: FOLLICULITIS[ICD9: 704.8] Chelsie HASSAN [facility] CPT-4: 23779 05/18/2015 ([id number]) OFFICE/OUTPATIENT VISIT EST Diagnosis: Constipation[ICD9: 564.00] Sapna AU [facility] CPT-4: 22845 02/22/2015 ([id number]) OFFICE/OUTPATIENT VISIT EST Diagnosis: Thoracic back pain[ICD9: 724.1] Diagnosis: Thoracic degenerative disc disease[ICD9: 722.51] Diagnosis: Scoliosis[ICD9: 737.30] Sapna PARDO [facility] CPT-4: 69204 12/02/2014 ([id number]) OFFICE/OUTPATIENT VISIT EST Diagnosis: Thoracic back pain[ICD9: 724.1] Diagnosis: ACTINIC KERATOSIS[ICD9: 702.0] Sapna LIVE [facility] CPT-4: 18785 08/18/2014 OFFICE/OUTPATIENT VISIT NEW Diagnosis: HYPERTENSION[ICD9: 401.9] Diagnosis: Thoracic back pain[ICD9: 724.1] Diagnosis: GERD[ICD9: 530.81] Diagnosis: Adrenal tumor[ICD9: 239.7] Sapna AU [facility] CPT-4: 15677 07/08/2014 ([id number]) OFFICE/OUTPATIENT VISIT NEW Diagnosis: HYPERTENSION[ICD9: 401.9] Diagnosis: GERD[ICD9: 530.81] Sapna LIVE DO [facility] CPT-4: 96166 07/08/2014 Plan of Care Planned Activity Notes [...] Appointment: Sapna Live WPtel: [phone] [place] FOLLOW UP 10/02/2019 Care Plan: Referral Order SNOMED-CT : [id number] Pending 10/02/2019 Visit Diagnosis Plan: Chest pain Discussion: will star t with cxray and rib xray. discussed that could be lung, rib, muscle but will start with cxray and patient may need echo. he verbalized understanding. ICD-9 : 786.50 ICD-10 : R07.9 08/25/2019 Appointment: Lashell Joe [address] [place], [place] [id number] ACUTE ILLNESS 08/25/2019 Visit Diagnosis Plan: Thoracic back pain Discussion: c hronic pain. will refer to dr. stallings [facility] for evaluation and treatment ICD-9 : 724.1 [...] ct of lungs to be done at [facility]. ICD-9 : V15.82 ICD-10 : [...] ICD-10 : E27.8 08/13/2019 Appointment: Lashell Joe [address] [place], [place] [id number] [place] FOLLOW UP 08/13/2019 Visit Diagnosis Plan: Sigmoid diverticulitis Discussio n: Bactrim/Flagyl Carbon diet To ER this weekend if worsening ICD-9 : 562.11 ICD-10 : K57.32 07/03/2019 Visit Diagnosis Plan: Jock itch Discussion: Diflucan a nd topical nystatin ICD-9 : 110.3 ICD-10 : B35.6 07/03/2019 Visit Diagnosis Plan: Renal insufficiency Discussion: Labs discussed Continue off NSAIDS Hydrate Recheck Chemistry 3mos ICD-9 : 593.9 ICD-10 : N28.9 07/03/2019 Appointment: [phone] [facility] [facility] 07/03/2019 Patient Education: fluconazole- [employer] Coupon [id number] Completed 07/03/2019 Patient Education: nystatin- [employer] Coupon [id number] Completed 07/03/2019 Visit Diagnosis Plan: Disorder of [...] ICD-10 : R25.2 06/05/2019 Appointment: Lashell Joe [address] [place], [place] [id number] NO SHOW - FORGIVEN 06/05/2019 Appointment: Lashell Joe [address] [place], [place] [phone] ACUTE ILLNESS 06/05/2019 Visit Diagnosis Plan: Pain [...] ICD-10 : L29.8 05/21/2019 Appointment: Lashell Joe [address] [place] [address] ACUTE ILLNESS 05/21/2019 Patient Education: hydroxyzine HCl- [employer] Coupon [id number] [email or web address]/resources/getResource/[email or web address]/[email or web address] Completed 05/21/2019 Appointment: Sapna Live WPtel: [address] [place] [address] 05/19/19 1645---see note put in chart today (km) CANCELED 05/19/2019 Appointment: Sapna Live WPtel: [address] [place] [address] CANCELED 05/05/2019 Appointment: Sapna Live WPtel: [address] [place] [address] UA 04/21/2019 Visit Diagnosis Plan: Diverticulitis of [...] : K59.09 02/24/2019 Appointment: Lashell Joe [address] Follow Up 02/24/2019 Visit Diagnosis Plan: Diverticulitis of large intestine without perforation or abscess with bleeding Discussion: Continue flagyl and cipro. A dvance diet to bland. BRAT diet advised. Avoid nuts, seeds, popcorn, roughage. RTC if abdominal pain worsens or does not improve. ICD-9 : 562.13 ICD-10 : K57.33 02/04/2019 Appointment: Nancy Mendiola [facility] [address] FOLLOW UP 02/04/2019 Visit Diagnosis Plan: [...] ICD-10 : R10.32 01/29/2019 Appointment: Nancy Mendiola [facility] [address] ACUTE ILLNESS 01/29/2019 Care Plan: CT [...] L30.9 12/19/2018 Appointment: Sapna Live WPtel[facility] [phone] [facility] [facility] 12/19/2018 Visit Diagnosis Plan: Gastro-esophageal reflux disease without esophagitis Discussion: Continue protonix at 40mg daily Hold mobic No NSAIDS Hold all MVs If persists then will need EGD ICD-9 : 530.81 ICD-10 : K21.9 11/11/2018 Appointment: Sapna Live WPtel[facility] [phone] [facility] [facility] 11/11/2018 Visit Diagnosis Plan: Encounter for gene [facility] adult medical examination without abnormal findings [...] ICD-10 : I10 10/09/2018 Appointment: Lashell Joe [address] [place], [place] [phone] Annual Well Visit 10/09/2018 Patient Education: gabapentin- [employer] Coupon [id number] Completed 10/09/2018 Patient Education: Kegel Exercises Comple catalina 10/09/2018 Patient Education: High Blood Pressure Co mpleted 10/09/2018 Visit Diagnosis Plan: Pain in right knee Discussion: c orticosteroid injection administered as described above. patient tolerated well. instructed to rtc in 3- 4 months if needed for additional injection. ICD-9 : 719.46 ICD-10 : M25.561 02/19/2018 Appointment: Lashell Joe [address] [place], [place] [id number] OFFICE SURGERY 02/19/2018 Patient Education: Patient Medication [...] : M25.561 02/12/2018 Appointment: [facility]hell [facility] [facility] 02/12/2018 Patient Education: Patient Medication Summary Completed 02/12/2018 Care Plan: X-RAY EXAM OF KNEE 1 [place] 2 [place] : [address]0 Pending 02/12/2018 Visit Diagnosis Plan: Essential (primary) [...] : R07.89 12/03/2017 Appointment: Lashell Joe 504 [facility] ESTABLISHED PATIENT 12/03/2017 Patient Education: Patient Medication Summary Completed 12/03/2017 Visit Diagnosis Plan: Essential (primary) hypertension Discussion: Increase quinapril to 40mg daily BP check in 1month ICD-9 : 401.9 ICD-10 : I10 09/11/2017 Appointment: Sapna Live WPtel: [address] [place] [address] FOLLOW UP 09/11/2017 Patient Education: Patient Medication Summary Completed 09/11/2017 Appointment: Sapna Live WPtel: [address] [place], [place] [phone] RESCHEDULED 08/22/2017 Visit Diagnosis Plan: Essential (primary) hypertension Discussion: Increase quinapril to 20mg daily Follow Up: 1 months ICD-9 : 401.9 ICD-10 : I10 08/13/2017 Visit Diagnosis Plan: Encounter for gene [facility] adult medical examination without abnormal findings Discussion: Update fasting lab ICD-9 : V70.9 ICD-10 : Z00.00 08/13/2017 Visit Diagnosis Plan: Left lower quadrant pain Discuss ion: Update colonoscopy ICD-9 : 789.04 ICD-10 : R10.32 08/13/2017 Appointment: Sapna Live WPtel: [address] [place], [place] [address] Annual Well Visit 08/13/2017 Patient Education: Patient Medication Summary Completed 08/13/2017 Appointment: Sapna Live WPtel: [address] [place], [place] [phone] THROAT SWAB 02/13/2017 Patient Education: Patient Medication Summary Completed 02/13/2017 Appointment: Sapna Live WPtel: [address] [place], [place] [phone] BP CHECK 11/17/2016 Patient Education: Patient Medication Summary Completed 11/17/2016 Visit Plan: Due for colonoscopy in 2018 Had shingles shot and flu shot Change quinapril hct to plain quinapril and see if muscles twitches improve Fwup with Dr. Braga Lab discussed Discussed diet/exercise at length Check CT abdomen Recheck 3mos 07/19/2016 Appointment: Sapna Live WPtel: [address] [place] [address] 07/18 confirmed`sl PHYSICAL 07/19/2016 Patient Education: Patient [...] earliest convenience 06/09/2016 Appointment: Sobia Monreal WPtel: [address] [place], [place] [phone] ACUTE ILLNESS 06/09/2016 Patient Education: Patient Medication Summary Completed 06/09/2016 Referral: Demario Braga WPtel: [facility] [address] Referral Initiated 11/12/2015 Visit Plan: Continue indwelling catheter until follow-up with Dr. Braga Continue Bactrim and Cipro Pyridium TID for Bladder spasms 11/08/2015 Appointment: Chelsie Teixeira WPtel: [address] [place], [place] [phone] ER Follow UP 11/08/2015 Patient Education: Patient Medication Summary Completed 11/08/2015 Referral: Abdiel Tucker WPtel: [phone] [facility] Referral Initiated 06/21/2015 Visit Plan: Prednisone 20mg daily for 1w [place] See surgery of cyst removal 06/14/2015 Appointment: Sapna Live WPtel: [address] [place], [place] [phone] 06/11 cn 06/14 cn FOLLOW UP 2014 Patient Education: Patient Medication Summary Completed 06/14/2015 Visit Plan: Warm moist compresses to Lef t shoulder lesion and apply topical Mupirocin twice daily Complete Cephalexin x 7 days as directed Resume Culturelle daily 05/18/2015 Appointment: Chelsie Teixeira WPtel: [address] [place], [place] [phone] ACUTE ILLNESS 05/18/2015 Patient Education: Patient Medication Summary Completed 05/18/2015 Visit Plan: Check fasting lab Use pain m eds prn with miralax on the day that takes pain meds 02/22/2015 Appointment: Sapna Live WPtel: [address] [place], [place] [phone] 02/19 [facility] 02/19 appt confirmed-lb ACUTE ILLNESS 5 Patient Education: Patient Medication Summary Completed 02/22/2015 Visit Plan: Increase neurontin to 300mg q HS Continue flexeril and tramadol Call in 1mo on how higher dose of gabapentin 12/02/2014 Appointment: Sapna Live WPtel: [address] [place], [place] [phone] FOLLOW UP 12/02/2014 Patient Education: Patient Medication Summary Completed 12/02/2014 Referral: Eric Angelo WPtel: [address] [place] [address] [place] Referral Appointment Confirmed 09/15/2014 Visit Plan: Proceed with pain doctor for possible injection vs nerve block Trial of lidoderm patch Cryotherapy to lesions as above 08/18/2014 Appointment: Sapna Live WPtel: [address] [place] [address] ACUTE ILLNESS 08/18/2014 Patient Education: Patient Medication Summary Completed 08/18/2014 Patient Education: Patient Medication Summary Completed 08/13/2014 Visit Plan: Continue current meds Obtain most recent lab results Check thoracic spine x-rays Needs updated CT scan of adrenal tumor 07/08/2014 Appointment: Sapna Live WPtel: [address] [place] [address] 07/07 vm NEW PATIENT 07/08/2014 Patient Education: Patient Medication Summary Completed 07/08/2014 Patient Education: Patient Medication Summary Completed 07/08/2014 Referral: Suhail Cardenas WPtel: [phone] [address] [place] Referral Completed Referral: Toby Bettencourt WPtel: [address] [address] [place] Referral Completed Referral: Rosario Monahan WPtel: [facility] [place] Referral Appointment Requested Instructions Comment [...]
--- OUTSIDE RECORDS SUMMARY | 2020-02-05 07:59 | XMS REPORT | CCD ---
Author Author Jai Live D.O. Organization [facility] Address [address] [place] [address] Phone Care Team Providers Care Arabic Professor Name Role Phone Sapna Live D.O., PP Unavailable CCM Unavailable Summary Purpose Interface Exchange Insurance Providers Payer name Policy type / Coverage type Covered republican ID Effective Begin Date Effective End Date GPA Commercial Insurance [id number] 2019 Unknown Family history Mother Diagnosis Age At Onset Cancer Unknown Father Diagnosis Age At Onset Congestive heart failure Unknown Coronary Artery Disease(CAD) Unknown Social History Social History Element Codes Description Effective Dates Tobacco history SNOMED CT: 4294018 Former smoker 10/09/2018 Marital status Unknown 07/08/2014 Number of children Unknown 1 07/08/2014 Employment Unknown Currently employed [employer] 07/08/[address]: 671615289 Never drinks alcohol 2013 Has the patient [...] for screening for malignant neoplasm of pros mcocy ICD-9: V76.44 ICD-10: Z12.5 07/05/2016 Active Pain [...] Fill Instructions tramadol 50 mg tablet RxNorm: 942134 1 Tablet(s) Oral t hree times a day as needed for pain along with two tylenol 09/29/2019 No Stop Date Active quinapril 40 mg tablet RxNorm: 925385 1 Tablet(s) Oral QD 09/18/2019 03/15/2020 Active Patient requests 90 days supply tramadol 50 mg tablet RxNorm: 845972 1 Tablet(s) Oral t hree times a day as needed for pain along with two tylenol 08/28/2019 08/28/2019 Inactive tramadol 50 mg tablet RxNorm: 995005 1 Tablet(s) PO TID as needed for pain along with two tylenol 08/25/2019 08/27/2019 Inactive pantoprazole 40 mg tablet,delayed release RxNorm: 962823 1 Tabl et(s) Oral QD 08/13/2019 No Stop Date Active Vitamin D3 1,000 unit capsule RxNorm: 763526 1 Capsule(s) Oral QD 1 10/13/2018 No Stop Date Active tamsulosin 0.4 mg capsule RxNorm: 085850 1 Capsule(s) Oral QPM 07/26 No Stop Date Active Protonix 40 mg tablet,delayed release RxNorm: 599005 TA KE 1 TABLET BY MOUTH TWICE A DAY 08/04/2019 08/12/2019 Inactive Flagyl 500 mg tablet RxNorm: 431672 1 Tablet(s) Oral three time s a day 07/03/2019 07/13/2019 Inactive fluconazole 100 mg tablet RxNorm: 306431 1 Tablet(s) Oral QD 201807/10/2019 Inactive Bactrim DS 800 mg-160 mg tablet RxNorm: 390466 1 Tablet(s) Oral two times a day 07/03/2019 07/13/2019 Inactive nystatin 100,000 unit/gram topical cream RxNorm: 971435 Application Topical two times a day 07/03/2019 08/12/2019 Inactive gabapentin 600 mg tablet RxNorm: 982920 Tablet(s) TAKE 1 TABLET BY MOUTH EVERY NIGHT AT BEDTIME 06/25/2019 08/12/2019 Inactive - First Attempt Ref: [id number] quinapril 40 mg tablet RxNorm: 336556 1 Tablet(s) Oral QD 06/23/2019 09/17/2019 Inactive Patient requests 90 days supply tramadol 50 mg tablet RxNorm: 244647 1 Tablet(s) PO TID as needed for pain along with two tylenol 05/23/2019 08/24/2019 Inactive hydroxyzine HCl 25 mg tablet RxNorm: 438641 1 Tablet(s) PO TID as needed 05/21/2019 08/12/2019 Inactive Elimite 5 % topical cream RxNorm: 865064 1 Application TOP QHS apply head to toe and was off in morning 05/19/2019 07/02/2019 Inactive Protonix 40 mg tablet,delayed release RxNorm: 607098 1 Tablet(s ) PO BID 05/05/2019 08/02/2019 Inactive - First Attempt Ref: [id number] gabapentin 600 mg tablet RxNorm: 454343 Tablet(s) TAKE 1 TABLET BY MOUTH EVERY NIGHT AT BEDTIME 04/25/2019 06/24/2019 Inactive - First Attempt Ref: [id number] tramadol 50 mg tablet RxNorm: 298870 1 Tablet(s) PO TID as needed for pain along with two tylenol 04/21/2019 05/22/2019 Inactive quinapril 40 mg tablet RxNorm: 442340 1 Tablet(s) PO QD 04/01/2019 Inactive Patient requests 90 days supply fenofibrate micronized 134 mg capsule RxNorm: 196422 1 Capsule(s) PO QD Due for updated fasting labs 03/31/2019 08/12/2019 Inactive dicyclomine 10 mg capsule RxNorm: 905126 1 Capsule(s) PO TID as needed 02/24/2019 05/20/2019 Inactive Flagyl 500 mg tablet RxNorm: 166515 1 Tablet(s) PO Q8H 02/24/201908/2019 Inactive ciprofloxacin 500 mg tablet RxNorm: 906412 1 Tablet(s) PO BID 02/2403/09/2019 Inactive Flagyl 500 mg tablet RxNorm: 621724 1 Tablet(s) PO Q6H 01/30/2019 Inactive ciprofloxacin 500 mg tablet RxNorm: 622027 1 Tablet(s) PO BID 01/3001/29/2019 Inactive Flagyl 500 mg tablet RxNorm: 380105 1 Tablet(s) PO Q6H 01/30/201904/2019 Inactive ciprofloxacin 500 mg tablet RxNorm: 878462 1 Tablet(s) PO BID 01/3002/05/2019 Inactive gabapentin 600 mg tablet RxNorm: 404326 TAKE 1 TABLET B Y MOUTH EVERY NIGHT AT BEDTIME 01/27/2019 04/24/2019 Inactive - First Attempt Ref: [id number] tramadol 50 mg tablet RxNorm: 953544 1 Tablet(s) PO TID as needed for pain along with two tylenol 01/08/2019 04/20/2019 Inactive fenofibrate micronized 134 mg capsule RxNorm: 973623 1 Capsule(s) PO QD Due for updated fasting labs 01/02/2019 03/30/2019 Inactive quinapril 40 mg tablet RxNorm: 890578 1 Tablet(s) PO QD 01/01/2019 Inactive Patient requests 90 days supply Protonix 40 mg tablet,delayed release RxNorm: 840931 TA KE 1 TABLET BY MOUTH TWICE A DAY 01/01/2019 03/31/2019 Inactive - First Attempt Ref: [id number] Protonix 40 mg tablet,delayed release RxNorm: 611811 TA KE 1 TABLET BY MOUTH TWICE A DAY 12/25/2018 12/31/2018 Inactive - First Attempt Ref: [id number] gabapentin 600 mg tablet RxNorm: 804619 TAKE 1 TABLET B Y MOUTH EVERY NIGHT AT BEDTIME 12/02/2018 01/26/2019 Inactive - First Attempt Ref: [id number] Protonix 40 mg tablet,delayed release RxNorm: 577844 1 Tablet(s ) PO BID 11/11/2018 12/24/2018 Inactive Protonix 40 mg tablet,delayed release RxNorm: 229331 1 Tablet(s ) PO BID 10/09/2018 11/10/2018 Inactive gabapentin 600 mg tablet RxNorm: 155232 1 Tablet(s) PO QHS 10/09/1912/01/2018 Inactive quinapril 40 mg tablet RxNorm: 891331 1 Tablet(s) PO QD 1 TABLE T(S) PO QD 08/08/2018 08/07/2018 Inactive Patient requests 9 0 days supply quinapril 40 mg tablet RxNorm: 266590 1 Tablet(s) PO QD 08/08/2018 Inactive Patient requests 90 days supply meloxicam 15 mg tablet RxNorm: 438033 1 Tablet(s) PO QD 08/08/2018 Inactive gabapentin 300 mg capsule RxNorm: 168709 1 CAPSULE(S) P O QHS DUE FOR WELLNESS VISIT 08/07/2018 10/08/2018 Inactive due for followup meloxicam 15 mg tablet RxNorm: 499494 Tablet(s) 1 TABLET(S) PO QD 1 10/07/2017 08/07/2018 Inactive fenofibrate micronized 134 mg capsule RxNorm: 904174 1 Capsule(s) PO QD Needs updated fasting labs!!!!!! 07/08/2018 07/07/2018 Inactive fenofibrate micronized 134 mg capsule RxNorm: 971320 1 Capsule( s) PO QD 07/08/2018 01/01/2019 Inactive fenofibrate micronized 134 mg capsule RxNorm: 825020 1 Capsule(s) PO QD Needs updated fasting labs!!!!!! 06/21/2018 07/08/2018 Inactive Medrol (Daniel) 4 mg tablets in a dose pack RxNorm: 685425 Tablet(s) PO As Directed 05/06/2018 05/05/2018 Inactive Medrol (Daniel) 4 mg tablets in a dose pack RxNorm: 716449 Tablet(s) PO As Directed 05/06/2018 08/07/2018 Inactive quinapril 40 mg tablet RxNorm: 054234 1 TABLET(S) PO QD 05/02/2018 Inactive Patient requests 90 days supply fenofibrate micronized 134 mg capsule RxNorm: 150730 1 Capsule(s) PO QD Needs updated fasting labs 04/29/2018 05/28/2018 Inactive Move Free [facility] 750 mg-100 mg-1.65 mg-108 mg tablet R xNorm: 1 Tablet(s) PO QD 02/12/2018 03/13/2018 Inactive fenofibrate micronized 134 mg capsule RxNorm: 921774 Ca psule(s) 1 CAPSULE(S) PO QD 01/29/2018 06/21/2018 Inactive quinapril 40 mg tablet RxNorm: 009489 1 TABLET(S) PO QD 11/26/2017 Inactive Patient requests 90 days supply fenofibrate micronized 134 mg capsule RxNorm: 018002 1 CAPSULE( S) PO QD 11/06/2017 01/29/2018 Inactive gabapentin 300 mg capsule RxNorm: 567710 1 CAPSULE(S) P O QHS DUE FOR WELLNESS VISIT 10/24/2017 07/20/2018 Inactive due for followup meloxicam 15 mg tablet RxNorm: 295648 1 TABLET(S) PO QD 10/24/2017 Inactive quinapril 40 mg tablet RxNorm: 494843 1 Tablet(s) PO QD 10/24/2017 Inactive fenofibrate micronized 134 mg capsule RxNorm: 763636 1 Capsule( s) PO QD 08/22/2017 11/05/2017 Inactive fenofibrate micronized 134 mg capsule RxNorm: 775244 1 Capsule( s) PO QD 08/22/2017 08/21/2017 Inactive quinapril 20 mg tablet RxNorm: 136465 1 Tablet(s) PO QD 08/13/2017 Inactive gabapentin 300 mg capsule RxNorm: 263505 1 Capsule(s) P O QHS Due for wellness visit 08/06/2017 10/23/2017 Inactive due for followup gabapentin 300 mg capsule RxNorm: 467860 1 Capsule(s) P O QHS Due for wellness visit 08/02/2017 08/05/2017 Inactive due for followup meloxicam 15 mg tablet RxNorm: 147101 1 Tablet(s) PO QD 08/01/2017 Inactive gabapentin 300 mg capsule RxNorm: 442154 1 Capsule(s) P O QHS Due for wellness visit 08/01/2017 08/01/2017 Inactive due for followup gabapentin 300 mg capsule RxNorm: 050943 1 Capsule(s) P O QHS Due for wellness visit 08/01/2017 08/02/2017 Inactive gabapentin 300 mg capsule RxNorm: 547416 1 Capsule(s) PO QHS 201605/12/2017 Inactive quinapril 10 mg tablet RxNorm: 081382 1 Tablet(s) PO QD replace s quinapril hct 02/12/2017 08/12/2017 Inactive meloxicam 15 mg tablet RxNorm: 719231 1 Tablet(s) PO QD 02/05/2017 Inactive quinapril 10 mg tablet RxNorm: 772029 1 Tablet(s) PO QD replace s quinapril hct 11/16/2016 02/12/2017 Inactive gabapentin 300 mg capsule RxNorm: 563984 1 Capsule(s) PO QHS 201602/12/2017 Inactive quinapril 10 mg tablet RxNorm: 923987 1 Tablet(s) PO QD replace s quinapril hct 10/16/2016 11/15/2016 Inactive gabapentin 300 mg capsule RxNorm: 793407 1 Capsule(s) PO QHS 201511/15/2016 Inactive quinapril 10 mg tablet RxNorm: 789922 1 Tablet(s) PO QD replace s quinapril hct 07/19/2016 10/15/2016 Inactive meloxicam 15 mg tablet RxNorm: 938392 1 Tablet(s) PO QD 07/10/2016 Inactive meloxicam 15 mg tablet RxNorm: 021034 TAKE ONE TABLET BY MOUTH LUKE Y 07/10/2016 07/09/2016 Inactive meloxicam 15 mg tablet RxNorm: 705896 1 Tablet(s) PO QD 07/06/2016 Inactive meloxicam 15 mg tablet RxNorm: 557212 1 Tablet(s) PO QD 06/09/2016 Inactive Multivitamin & Mineral Formula tablet RxNorm: 1 Tablet(s) PO Q D 06/02/2016 07/01/2016 Inactive tamsulosin 0.4 mg capsule RxNorm: 721492 1 Capsule(s) PO QHS 201507/01/2016 Inactive [facility] 750 mg-100 mg-1.65 mg-108 mg tablet R xNorm: 1 Tablet(s) PO QD 06/02/2016 07/01/2016 Inactive gabapentin 300 mg capsule RxNorm: 960828 1 Capsule(s) PO QHS 201508/27/2016 Inactive gabapentin 300 mg capsule RxNorm: 982702 Capsule(s) ALFONZO E ONE CAPSULE BY MOUTH AT BEDTIME 02/28/2016 05/27/2016 Inactive quinapril 10 mg-hydrochlorothiazide 12.5 mg tablet RxNorm: 3 13187 Tablet(s) TAKE ONE TABLET BY MOUTH EVERY MORNING 01/14/2016 07/18/2016 Inactive gabapentin 300 mg capsule RxNorm: 792047 TAKE ONE CAPSULE BY MO [facility] AT BEDTIME 12/28/2015 02/27/2016 Inactive Urecholine 25 mg tablet RxNorm: 560021 1 Tablet(s) PO TID 11/09/2015 07/18/2016 Inactive phenazopyridine 100 mg tablet RxNorm: 9656462 1 Tablet(s ) PO TID as needed for bladder spasms. 11/08/2015 11/08/2015 Inactive quinapril 10 mg-hydrochlorothiazide 12.5 mg tablet RxNorm: 3 31009 TAKE ONE TABLET BY MOUTH EVERY MORNING 10/15/2015 01/13/2016 Inactive gabapentin 300 mg capsule RxNorm: 831559 1 Tablet(s) PO QD TAKE ONE CAPSULE BY MOUTH EVERY NIGHT AT BEDTIME 09/23/2015 12/21/2015 Inactive quinapril 10 mg-hydrochlorothiazide 12.5 mg tablet RxNorm: 3 47162 Tablet(s) TAKE ONE TABLET BY MOUTH EVERY MORNING 07/14/2015 10/14/2015 Inactive gabapentin 300 mg capsule RxNorm: 441905 1 Tablet(s) PO QD TAKE ONE CAPSULE BY MOUTH EVERY NIGHT AT BEDTIME 06/25/2015 09/23/2015 Inactive prednisone 20 mg tablet RxNorm: 417424 1 Tablet(s) PO QD 06/14/2015 0 06/20/2015 Inactive cephalexin 500 mg capsule RxNorm: 019344 1 Capsule(s) PO BID 201405/27/2015 Inactive mupirocin 2 % topical ointment RxNorm: 279620 TOP BID 05/18/2015 0 06/13/2015 Inactive quinapril 10 mg-hydrochlorothiazide 12.5 mg tablet RxNorm: 3 28031 Tablet(s) TAKE ONE TABLET BY MOUTH EVERY MORNING 04/06/2015 07/14/2015 Inactive gabapentin 300 mg capsule RxNorm: 853459 1 Capsule(s) PO QHS 201404/01/2015 Inactive [SAVINGS FOR NON-COVERED LILIANA GS -- BIN:386730, PCN: ASPROD1, Group: XXXXX, ID# [id number], Questions: . THIS IS NOT INSURANCE.] gabapentin 300 mg capsule RxNorm: 665107 1 Capsule(s) PO QHS 201406/25/2015 Inactive [SAVINGS FOR NON-COVERED LILIANA GS -- BIN:463351, PCN: ASPROD1, Group: XXXXX, ID# [id number], Questions: . THIS IS NOT INSURANCE.] quinapril 10 mg-hydrochlorothiazide 12.5 mg tablet RxNorm: 3 38099 TAKE ONE TABLET BY MOUTH EVERY MORNING 12/11/2014 04/05/2015 Inactive gabapentin 300 mg capsule RxNorm: 212890 1 Capsule(s) PO QHS 201404/02/2015 Inactive [SAVINGS FOR NON-COVERED LILIANA GS -- BIN:183160, PCN: ASPROD1, Group: XXXXX, ID# [id number], Questions: . THIS IS NOT INSURANCE.] cyclobenzaprine 10 mg tablet RxNorm: 162833 1 Tablet(s) PO TID as needed for muscle spasm for muscle spasm 12/02/2014 02/21/2015 Inactive [S AVINGS FOR NON- COVERED DRUGS -- BIN:407418, PCN: ASPROD1, Group: XXXXX, ID# [id number], Questions: . THIS IS NOT INSURANCE.] gabapentin 100 mg capsule RxNorm: 281625 1 Capsule(s) PO QHS 201412/01/2014 Inactive [SAVINGS FOR NON-COVERED LILIANA GS -- BIN:624060, PCN: ASPROD1, Group: XXXXX, ID# [id number], Questions: . THIS IS NOT INSURANCE.] ibuprofen 800 mg tablet RxNorm: 423556 1 Tablet(s) PO T ID as needed low back pain 11/11/2014 11/23/2014 Inactive [SAVINGS FOR NON -COVERED DRUGS -- BIN:179803, PCN: ASPROD1, Group: XXXXX, ID# [id number], Questions: . THIS IS NOT INSURANCE.] ibuprofen 800 mg tablet RxNorm: 305802 1 Tablet(s) PO T ID as needed low back pain 11/09/2014 11/10/2014 Inactive [SAVINGS FOR NON -COVERED DRUGS -- BIN:929966, PCN: ASPROD1, Group: XXXXX, ID# [id number], Questions: . THIS IS NOT INSURANCE.] Zorvolex 35 mg capsule RxNorm: 6845335 1 Tablet(s) PO TID 08/27/2014 10/01/2014 Inactive [SAVINGS FOR UNINSURED PATIENTS -- BIN:0 31505, PCN: ASPROD1, Group: [id number], ID# [id number], Process claim through [employer], for questions: . THIS IS NOT INSURANCE.] quinapril 10 mg-hydrochlorothiazide 12.5 mg tablet RxNorm: 3 46965 1 Tablet(s) PO QAM 08/27/2014 11/24/2014 Inactive Lidoderm 5 % (700 mg/patch) adhesive patch RxNorm: 6279677 Application TOP for 12hours then off for pain 08/18/2014 02/21/2015 Inactive [SAVIN GS FOR UNINSURED PATIENTS -- BIN:213402, PCN: ASPROD1, Group: [id number], ID# [id number], Process claim through [employer], for questions: . THIS IS NOT INSURANCE.] Zorvolex 35 mg capsule RxNorm: 7340900 1 Tablet(s) PO TID 08/13/2014 08/12/2014 Inactive Zorvolex 35 mg capsule RxNorm: 2039227 1 Tablet(s) PO TID 08/13/2014 08/24/2014 Inactive [SAVINGS FOR UNINSURED PATIENTS -- BIN:0 53886, PCN: ASPROD1, Group: AME08, ID# [id number], Process claim through [employer], for questions: . THIS IS NOT INSURANCE.] Aspirin Child 81 mg chewable tablet RxNorm: 077908 1 Tablet(s) PO QD No Start Date Active ibuprofen 800 mg tablet RxNorm: 125162 1 Tablet(s) PO T ID as needed low back pain No Start Date 11/08/2014 Inactive cyclobenzaprine 10 mg tablet RxNorm: 637755 1 Tablet(s) PO TID No S tart Date 08/12/2017 Inactive garlic 1,000 mg capsule RxNorm: 083200 1 Capsule(s) PO QD No Start Date 04/22/2019 Inactive tramadol 50 mg tablet RxNorm: 351423 1 Tablet(s) PO Q4-6H as ne eded for pain No Start Date 02/21/2015 Inactive tramadol 50 mg tablet RxNorm: 886775 1 Tablet(s) PO TID as needed for pain along with two tylenol No Start Date 01/07/2019 Inactive krill oil oral RxNorm: 45034 oral No Start Date 11/11/2018 Inacti ve Vitamin D3 2,000 unit tablet RxNorm: 752488 1 Tablet(s) PO QD No St art Date 08/12/2019 Inactive gabapentin 100 mg tablet RxNorm: 334198 1 Tablet(s) PO QD No Start Date 11/10/2014 Inactive Zofran 4 mg tablet RxNorm: 229715 1 Tablet(s) PO Q6H as needed No S tart Date 08/12/2019 Inactive Elimite 5 % topical cream RxNorm: 006668 1 Application TOP QHS apply head to toe and was off in morning No Start Date 05/18/2019 Inactive gabapentin 100 mg capsule RxNorm: 273032 1 Capsule(s) PO QHS No Sta rt Date 11/10/2014 Inactive aspirin 325 mg tablet RxNorm: 928417 2 Tablet(s) PO QD No Start Date 08/17/2014 Inactive Fish Oil 1,000 mg capsule RxNorm: 1 Capsule(s) PO QD No Start Date 10/08/2018 Inactive quinapril 10 mg-hydrochlorothiazide 12.5 mg tablet RxNorm: 3 70642 1 Tablet(s) PO QAM No Start Date 08/26/2014 Inactive quinapril 40 mg tablet RxNorm: 608498 1 Tablet(s) PO QD No Start Da te 10/23/2017 Inactive Medrol (Dnaiel) 4 mg tablets in a dose pack RxNorm: 678441 Tablet(s) PO As Directed No Start Date 05/05/2018 Inactive Urecholine 25 mg tablet RxNorm: 211816 1 Tablet(s) PO TID No Start Date 11/08/2015 Inactive cyclobenzaprine 10 mg tablet RxNorm: 169034 1/2-1 Table t(s) PO TID as needed for muscle spasm No Start Date 12/01/2014 Inactive tamsulosin 0.4 mg capsule RxNorm: 709502 2 Capsule(s) PO QPM No Sta rt Date 08/12/2019 Inactive hydrocodone 5 mg-acetaminophen 325 mg tablet RxNorm: 227857 1 -2 Tablet(s) PO Q6H as needed No Start Date 05/20/2019 Inactive loratadine 10 mg tablet RxNorm: 184218 1 Tablet(s) PO QD No Start D ate 07/07/2014 Inactive Medication Administered No Medication Administered data Immunizations Vaccine Codes Date Status Influenza CVX: 141 07/21/2019 Results Observation Observation Code Item Item Code Result Date S [facility] Location CULTURE, URINE, ROUTINE 395 CULTURE SEE NOTE 1 10/15/2018 Zay Becerra [address] [place] [address] CULTURE, URINE, ROUTINE 395 CULTURE, URINE, ROUTINE SEE NOTE 08/15/2019 Zay Becrera [address] [place] [address] CBC (H/H, RBC, INDICES, WBC, PLT) 42327 WHITE BLOOD CELL COU NT 7.9 Thousand/uL 08/14/2019 [employer] Seun Becerra [address] [place] [address] CBC (H/H, RBC, INDICES, WBC, PLT) 02592 RED BLOOD CELL COUNT 4.93 Million/uL 08/14/2019 Zay Becerra [address] [place] [address] CBC (H/H, RBC, INDICES, WBC, PLT) 32094 HEMOGLOBIN 15 .4 g/dL 08/14/2019 [facility] [address] [address] CBC (H/H, RBC, INDICES, WBC, PLT) 06839 HEMATOCRIT 45 .0 % 08/14/[address] [facility] [address] CBC (H/H, RBC, INDICES, WBC, PLT) 24631 MCV 91 .3 fL 08/14/2019 [employer] [facility] [address] CBC (H/H, RBC, INDICES, WBC, PLT) 78475 MCH 31 .2 pg 08/14/2019 [employer] [facility] [address] CBC (H/H, RBC, INDICES, WBC, PLT) 11242 MCHC 34 .2 g/dL 08/14/2019 [employer] [facility] [address] CBC (H/H, RBC, INDICES, WBC, PLT) 33628 RDW 12 .7 % 08/14/2019 [facility] [address] CBC (H/H, RBC, INDICES, WBC, PLT) 63930 PLATELET COUNT 214 Thousand/uL 08/14/2019 [employer] [facility] [address] CBC (H/H, RBC, INDICES, WBC, PLT) 60833 MPV 11 .5 fL 08/14/2019 [employer] [facility] [address] COMPREHENSIVE METABOLIC PANEL 59774 Glucose 113 mg /dL 08/14/2019 [employer] [address] [address] COMPREHENSIVE METABOLIC PANEL 22702 UREA NITROGEN (BUN) 16 mg/dL 08/14/2019 [employer] [facility] [address] COMPREHENSIVE METABOLIC PANEL 90319 CREATININE 0.86 m g/dL 08/14/2019 [facility] [address] COMPREHENSIVE METABOLIC PANEL 85588 eGFR NON-AFR. LIBERIAN 92 mL/min/1.73m2 08/14/2019 [employer] [facility] [address] COMPREHENSIVE METABOLIC PANEL 64654 eGFR 106 mL/min/1.73m2 08/14/2019 [employer] [facility] [address] COMPREHENSIVE METABOLIC PANEL 13135 BUN/CREATININE RATIO NOT APPLICABLE (calc) 08/14/[address] [address] COMPREHENSIVE METABOLIC PANEL 46062 SODIUM 141 mm ol/L 08/14/2019 [employer] [facility] [address] COMPREHENSIVE METABOLIC PANEL 80149 POTASSIUM 4.1 mm ol/L 08/14/2019 [employer] [facility] [address] COMPREHENSIVE METABOLIC PANEL 36943 CHLORIDE 102 mm ol/L 08/14/2019 [employer] [facility] [address] COMPREHENSIVE METABOLIC PANEL 39037 CARBON DIOXIDE 28 mmol/L 08/14/2019 [employer] [facility] [address] COMPREHENSIVE METABOLIC PANEL 91107 CALCIUM 9.7 mg /dL 08/14/2019 [facility] [address] COMPREHENSIVE METABOLIC PANEL 54831 PROTEIN, TOTAL 6. 7 g/dL 08/14/2019 [employer] [facility] [address] COMPREHENSIVE METABOLIC PANEL 02395 ALBUMIN 4.3 g/ dL 08/14/2019 [employer] [facility] [address] COMPREHENSIVE METABOLIC PANEL 23785 GLOBULIN 2.4 g/ dL(calc) 08/14/[address] [address] COMPREHENSIVE METABOLIC PANEL 35176 ALBUMIN/GLOBULIN RATIO 1.8 (calc) 08/14/2019 [employer] [facility] [address] COMPREHENSIVE METABOLIC PANEL 88610 BILIRUBIN, TOTAL 1.0 mg/dL 08/14/2019 [employer] [facility] [address] COMPREHENSIVE METABOLIC PANEL 21213 ALKALINE PHOSPHATASE 56 U/L 08/14/2019 [employer] [facility] [address] COMPREHENSIVE METABOLIC PANEL 75958 AST 18 U/L 08/14/2019 [employer] [facility] [address] [place] [address] COMPREHENSIVE METABOLIC PANEL 18223 ALT 28 U/L 08/14/2019 [facility] [address] [address] MAGNESIUM 83670 MAGNESIUM 2.0 mg/dL 06/06/2019 [facility] [address] [address] COMPREHENSIVE METABOLIC PANEL 67182 Glucose 106 mg /dL 06/06/2019 [facility] [address] [address] COMPREHENSIVE METABOLIC PANEL 61163 UREA NITROGEN (BUN) 22 mg/dL 06/06/2019 [facility] [address] [address] COMPREHENSIVE METABOLIC PANEL 06307 CREATININE 1.29 m g/dL 06/06/2019 [facility] [address] [address] COMPREHENSIVE METABOLIC PANEL 68419 eGFR NON-AFR. LIBERIAN 58 mL/min/1.73m2 06/06/2019 [facility] [address] [address] COMPREHENSIVE METABOLIC PANEL 73409 eGFR 67 mL/min/1.73m2 06/06/2019 [facility] [address] [address] COMPREHENSIVE METABOLIC PANEL 64091 BUN/CREATININE RATIO 17 (calc) 06/06/2019 [facility] [address] [place] [address] COMPREHENSIVE METABOLIC PANEL 90673 SODIUM 138 mm ol/L 06/06/2019 [facility] [address] [address] COMPREHENSIVE METABOLIC PANEL 89856 POTASSIUM 4.2 mm ol/L 06/06/2019 [facility] [address] [address] COMPREHENSIVE METABOLIC PANEL 38911 CHLORIDE 101 mm ol/L 06/06/2019 [employer] [facility] [address] [address] COMPREHENSIVE METABOLIC PANEL 62357 CARBON DIOXIDE 29 mmol/L 06/06/2019 [facility] [address] [address] COMPREHENSIVE METABOLIC PANEL 97646 CALCIUM 9.6 mg /dL 06/06/[address] [employer] [address] COMPREHENSIVE METABOLIC PANEL 42268 PROTEIN, TOTAL 6. 9 g/dL 06/06/2019 [employer] [facility] [address] COMPREHENSIVE METABOLIC PANEL 40709 ALBUMIN 4.4 g/ dL 06/06/2019 [facility] [address] COMPREHENSIVE METABOLIC PANEL 09640 GLOBULIN 2.5 g/ dL(calc) 06/06/2019 [facility] [address] COMPREHENSIVE METABOLIC PANEL 47267 ALBUMIN/GLOBULIN RATIO 1.8 (calc) 06/06/2019 [employer] [facility] [address] COMPREHENSIVE METABOLIC PANEL 03271 BILIRUBIN, TOTAL 0.7 mg/dL 06/06/2019 [employer] [facility] [address] COMPREHENSIVE METABOLIC PANEL 41319 ALKALINE PHOSPHATASE 45 U/L 06/06/2019 [facility] [address] COMPREHENSIVE METABOLIC PANEL 92676 AST 21 U/L 06/06/2019 [employer] [facility] [address] COMPREHENSIVE METABOLIC PANEL 29888 ALT 34 U/L 06/06/2019 [employer] [facility] [address] CULTURE, URINE, ROUTINE 395 CULTURE, URINE, ROUTINE SEE NOTE 04/23/2019 [employer] [facility] [address] CULTURE, URINE, ROUTINE 395 CULTURE SEE NOTE 0 04/23/2019 [employer] [facility] [address] EXTRA 1014 EXTRA TUBE RECEIVED 04/22 [employer] [facility] [address] EXTRA 1014 SPECIMEN TYPE RECEIVED: LAV 0 04/22/2019 [employer] [address] COMPREHENSIVE METABOLIC PANEL 60592 Glucose 94 mg/ dL 04/22/2019 [employer] [facility] [address] COMPREHENSIVE METABOLIC PANEL 52902 UREA NITROGEN (BUN) 20 mg/dL 04/22/2019 [employer] [facility] [address] COMPREHENSIVE METABOLIC PANEL 99082 CREATININE 1.30 m g/dL 04/22/2019 [employer] [facility] [address] COMPREHENSIVE METABOLIC PANEL 22059 eGFR NON-AFR. LIBERIAN 58 mL/min/1.73m2 04/22/2019 [facility] [address] COMPREHENSIVE METABOLIC PANEL 24430 eGFR 67 mL/min/1.73m2 04/22/2019 [employer] [facility] [address] COMPREHENSIVE METABOLIC PANEL 60689 BUN/CREATININE RATIO 15 (calc) 04/22/2019 [employer] [facility] [address] COMPREHENSIVE METABOLIC PANEL 21620 SODIUM 139 mm ol/L 04/22/2019 [employer] [facility] [address] COMPREHENSIVE METABOLIC PANEL 53646 POTASSIUM 4.2 mm ol/L 04/22/2019 [employer] [facility] [address] COMPREHENSIVE METABOLIC PANEL 26845 CHLORIDE 104 mm ol/L 04/22/2019 [facility] [address] COMPREHENSIVE METABOLIC PANEL 84298 CARBON DIOXIDE 27 mmol/L 04/22/2019 [employer] [facility] [address] COMPREHENSIVE METABOLIC PANEL 59473 CALCIUM 9.9 mg /dL 04/22/2019 [employer] [facility] [address] COMPREHENSIVE METABOLIC PANEL 55759 PROTEIN, TOTAL 7. 1 g/dL 04/22/2019 [facility] [address] COMPREHENSIVE METABOLIC PANEL 06505 ALBUMIN 4.6 g/ dL 04/22/2019 [employer] [facility] [address] COMPREHENSIVE METABOLIC PANEL 02699 GLOBULIN 2.5 g/ dL(calc) 04/22/2019 [employer] [facility] [address] COMPREHENSIVE METABOLIC PANEL 88335 ALBUMIN/GLOBULIN RATIO 1.8 (calc) 04/22/2019 [employer] [address] [address] COMPREHENSIVE METABOLIC PANEL 91993 BILIRUBIN, TOTAL 0.4 mg/dL 04/22/[address] [address] COMPREHENSIVE METABOLIC PANEL 83083 ALKALINE PHOSPHATASE 53 U/L 04/22/[address] [address] COMPREHENSIVE METABOLIC PANEL 04747 AST 21 U/L 04/22/2019 [facility] [address] COMPREHENSIVE METABOLIC PANEL 32251 ALT 34 U/L 04/22/[address] [address] CULTURE, URINE, ROUTINE 395 CULTURE, URINE, ROUTINE SEE NOTE 01/31/[address] [address] Procedures Procedure Codes Date URINALYSIS NONAUTO W/O SCOPE CPT-4: 01385 10/02/2019 URINE CULTURE/ COLONY COUNT CPT-4: 98816 10/02/2019 ROUTINE VENIPUNCTURE CPT-4: 31990 08/13/2019 URINALYSIS NONAUTO W/O SCOPE CPT-4: 22869 08/13/2019 CULTURE, URINE, ROUTINE CPT-4: 395 08/13/2019 COMPREHENSIVE METABOLIC PANEL CPT-4: 14990 08/13/2019 CBC (H/H, RBC, INDICES, WBC, PLT) CPT-4: 72337 2018 COMPREHENSIVE METABOLIC PANEL CPT-4: 31335 06/05/2019 MAGNESIUM CPT-4: 00131 06/05/2019 DEXAMETHASONE SODIUM PHOS CPT-4: J1100 05/21/2019 THER/PROPH/DIAG INJ SC/IM CPT-4: 16211 05/21/2019 TRIAMCINOLONE ACET INJ NOS CPT-4: J3301 05/21/2019 ROUTINE VENIPUNCTURE CPT-4: 11030 04/21/2019 COMPREHENSIVE METABOLIC PANEL CPT-4: 85967 04/21/2019 EXTRA CPT-4: 1014 04/21/2019 CULTURE, URINE, ROUTINE CPT-4: 395 04/21/2019 URINALYSIS NONAUTO W/O SCOPE CPT-4: 89967 04/21/2019 URINALYSIS NONAUTO W/O SCOPE CPT-4: 64792 01/29/2019 CULTURE, URINE, ROUTINE CPT-4: 395 01/29/2019 DRAIN/INJECT JOINT/BURSA CPT-4: 69748 02/19/2018 TRIAMCINOLONE ACET INJ NOS CPT-4: J3301 02/19/2018 DEXAMETHASONE SODIUM PHOS CPT-4: J1100 02/19/2018 THER/PROPH/DIAG INJ SC/IM CPT-4: 79061 02/12/2018 TRIAMCINOLONE ACET INJ NOS CPT-4: J3301 02/12/2018 DEXAMETHASONE SODIUM PHOS CPT-4: J1100 02/12/2018 CEFTRIAXONE SODIUM INJECTION CPT-4: J0696 12/03/2017 THER/PROPH/DIAG INJ SC/IM CPT-4: 83731 12/03/2017 THER/PROPH/DIAG INJ SC/IM CPT-4: 03896 12/03/2017 METHYLPREDNISOLONE INJECTION CPT-4: J2930 12/03/2017 URINALYSIS NONAUTO W/O SCOPE CPT-4: 97321 08/13/2017 STREP A ASSAY W/OPTIC CPT-4: 50474 02/13/2017 DESTRUCT PREMALG LESION (Cryosurgery) CPT-4: 40907 Vital Signs Date Vital 10/02/2019 Blood Pressure [...] 1: 128/78 Code: 8480-6 BMI: 36.0 Code: 00810-3 Heart Rate 1: 68 bpm Height: 5'7" [...] 1: 138/86 Code: 8480-6 BMI: 35.6 Code: 91671-7 Heart Rate 1: 68 bpm Height: 5'7" SpO2: 95% Temperature: 36.6 (C) / 97.8 (F) Weight: 227 lbs 12/03/2017 Blood Pressure 1: 134/84 Code: 8480-6 BMI: 34.3 Code: 34616-6 Heart Rate 1: 68 bpm Height: 5'7" Respiratory Rate: 20 bpm SpO2: 96% Tempera ture: 35.9 (C) / 96.6 (F) Weight: 219 lbs 09/11/2017 Blood Pressure 1: 140/86 Code: 8480-6 BMI: 34.9 Code: 38455-3 Heart Rate 1: 84 bpm Height: 5'7" Respiratory Rate: 20 bpm SpO2: 95% Tempera ture: 36.7 (C) / 98.1 (F) Weight: 223 lbs 08/13/2017 Blood Pressure 1: 142/94 Code: 8480-6 BMI: 34.5 Code: 78331-0 Heart Rate 1: 76 bpm Height: 5'7" Respiratory Rate: 20 bpm SpO2: 96% Tempera ture: 37.1 (C) / 98.8 (F) Weight: 220 lbs 11/17/2016 Blood Pressure 1: 118/78 Code: 8480-6 art Rate 1: 64 bpm 07/19/2016 Blood Pressure 1: 112/58 Code: 8480-6 BMI: 31.6 Code: 21514-6 Heart Rate 1: 88 bpm Height: 5'7" Respiratory Rate: 22 bpm SpO2: 98% Tempera ture: 36.3 (C) / 97.4 (F) Weight: 202 lbs 06/09/2016 Blood Pressure 1: 138/84 Code: 8480-6 BMI: 32.1 Code: 72043-2 Heart Rate 1: 58 bpm Height: 5'7" Respiratory Rate: 20 bpm SpO2: 97% Tempera ture: 36.6 (C) / 97.8 (F) Weight: 205 lbs 11/08/2015 Blood Pressure 1: 142/80 Code: 8480-6 BMI: 32.4 Code: 90085-8 Heart Rate 1: 76 bpm Height: 5'7" Respiratory Rate: 20 bpm Temperature: 36 .6 (C) / 97.9 (F) Weight: 207 lbs 06/14/2015 Blood Pressure 1: 126/80 Code: 8480-6 Heart Rate 1: 84 bpm Respiratory Rate: 20 bpm Temperature: 36.8 (C) / 98.2 (F) Weight: 206 lbs 05/18/2015 Blood Pressure 1: 124/80 Code: 8480-6 BMI: 32.3 Code: 59412-9 Heart Rate 1: 68 bpm Height: 5'7" Respiratory Rate: 20 bpm Temperature: 36 .4 (C) / 97.6 (F) Weight: 206 lbs 02/22/2015 Blood Pressure 1: 126/78 Code: 8480-6 BMI: 32.1 Code: 95066-5 Heart Rate 1: 76 bpm Height: 5'7" Respiratory Rate: 20 bpm Temperature: 36 .6 (C) / 97.9 (F) Weight: 205 lbs 12/02/2014 Blood Pressure 1: 124/80 Code: 8480-6 BMI: 32.7 Code: 62460-6 Heart Rate 1: 70 bpm Height: 5'7" Respiratory Rate: 18 bpm Temperature: 36 .6 (C) / 97.9 (F) Weight: 209 lbs 08/18/2014 Blood Pressure 1: 132/94 Code: 8480-6 BMI: 34.5 Code: 68188-7 Heart Rate 1: 84 bpm Height: 5'6" Respiratory Rate: 20 bpm Temperature: 36 .6 (C) / 97.9 (F) Weight: 217 lbs 07/08/2014 Blood Pressure 1: 142/88 Code: 8480-6 BMI: 34.3 Code: 59277-1 Heart Rate 1: 72 bpm Height: 5'6" [...] R10.2] Diagnosis: Aortic regurgitation[ICD10: I35.1] Sapna LIVE [employer] CPT-4: 48713 10/02/2019 ([id number]) OFFICE/OUTPATIENT VISIT EST Diagnosis: Chest pain[ICD10: R07.9] Lashell Joe SAPNA BILLINGS [employer] CPT-4: 99918 08/25/2019 ([id number]) OFFICE/OUTPATIENT VISIT EST Diagnosis: Thoracic back pain[ICD10: M54.6] Diagnosis: Disorder of kidney and ureter, unspecified[ICD10: N28.9] Diagnosis: Personal history of nicotine dependence[ICD10: Z87.891] 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] Lashell AU DO [facility] CPT-4: 14304 08/13/2019 ([id number]) OFFICE/OUTPATIENT VISIT EST Diagnosis: Sigmoid diverticulitis[ICD10: K57.32] Diagnosis: Renal insufficiency[ICD10: N28.9] Diagnosis: Jock itch[ICD10: B35.6] Sapna PARDO DO [facility] CPT-4: 13787 07/03/2019 ([id number]) OFFICE/OUTPATIENT VISIT EST Diagnosis: Cramp and spasm[ICD10: R25.2] Diagnosis: Disorder of kidney and ureter, unspecified[ICD10: N28.9] Lashell LIVE DO [facility] CPT-4: 86127 06/05/2019 ([id number]) OFFICE/OUTPATIENT VISIT EST Diagnosis: Other pruritus[ICD10: L29.8] Diagnosis: Pain in right knee[ICD10: M25.561] Lashell LIVE [facility] CPT-4: 84244 05/21/2019 ([id number]) NURSE/OUTPATIENT VISIT EST Diagnosis: Edema, unspecified[ICD10: R60.9] Sapna LIVE DO [facility] CPT-4: 00083 04/21/2019 ([id number]) OFFICE/OUTPATIENT VISIT EST Diagnosis: Diverticulitis of large intestine without perforation or abscess without bleeding[ICD10: K57.32] Diagnosis: Snoring[ICD10: R06.83] Diagnosis: Other constipation[ICD10: K59.09] Lashell LIVE DO [facility] CPT-4: 50119 02/24/2019 ([id number]) OFFICE/OUTPATIENT VISIT EST Diagnosis: Diverticulitis of large intestine without perforation or abscess with bleeding[ICD10: K57.33] Nancy CORRAL Vickie LIVE [facility] CPT-4: 78991 02/04/2019 ([id number]) OFFICE/OUTPATIENT VISIT EST Diagnosis: Left lower quadrant pain[ICD10: R10.32] Nancy LORA JefryAmarjit UBZZ MARIE [facility] CPT-4: 74059 01/29/2019 OFFICE/OUTPATIENT VISIT EST Diagnosis: Dermatitis, unspecified[ICD10: L30.9] Diagnosis: Gastro-esophageal reflux disease without esophagitis[ICD10: K21.9] Diagnosis: Palpitations[ICD10: R00.2] Sapna AU [facility] CPT-4: 13096 12/19/2018 ([id number]) OFFICE/OUTPATIENT VISIT EST Diagnosis: Gastro-esophageal reflux disease without esophagitis[ICD10: K21.9] Diagnosis: Dysphagia, pharyngoesophageal phase[ICD10: R13.14] Sapna LIVE DO [facility] CPT-4: 77261 11/11/2018 ([id number]) PREV VISIT EST AGE 40-64 Diagnosis: Encounter [...] disorders of digestive system[ICD10: K91.89] Lashell LIVE [facility] CPT-4: 99 396 10/09/2018 ([id number]) OFFICE/OUTPATIENT VISIT EST Diagnosis: Pain in right knee[ICD10: M25.561] Diagnosis: Pain in right hip[ICD10: M25.551] Lashell LIVE [facility] CPT-4: 74755 02/12/2018 OFFICE/OUTPATIENT VISIT EST Diagnosis: Essential (primary) hypertension[ICD10: I10] Diagnosis: Other chest pain[ICD10: R07.89] Lashell LIVE [facility] CPT-4: 72025 12/03/2017 ([id number]) OFFICE/OUTPATIENT VISIT EST Diagnosis: Essential (primary) hypertension[ICD10: I10] Sapna LIVE [facility] CPT-4: 59696 09/11/2017 ([id number]) PREV VISIT EST AGE 40-64 Diagnosis: Encounter for general adult medical examination without abnormal findings[ICD10: Z00.00] Diagnosis: Essential (primary) hypertension[ICD10: I10] Diagnosis: Left lower quadrant pain[ICD10: R10.32] Diagnosis: Left upper quadrant pain[ICD10: R10.12] Diagnosis: Other intervertebral disc degeneration, 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] Sapna LIVE [facility] CPT-4: 11666 08/13/2017 ([id number]) OFFICE/OUTPATIENT VISIT EST Diagnosis: Acute pharyngitis, unspecified[ICD10: J02.9] Sapna LIVE [facility] CPT-4: 84721 02/13/2017 ([id number]) PREV VISIT EST AGE 40-64 Diagnosis: Encounter for general adult medical examination without abnormal findings[ICD10: Z00.00] Diagnosis: Essential (primary) hypertension[ICD10: I10] 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] Sapna CappsAmarjit BUZZ [facility] CPT-4: 41909 07/19/2016 OFFICE/OUTPATIENT VISIT EST Diagnosis: Pain in thoracic spine[ICD10: M54.6] Diagnosis: Disorder of the skin and subcutaneous tissue, unspecified[ICD10: L98.9] Sobia Monreal SAPNA JefryAmarjit BUZZ [facility] CPT-4: 47242 06/09/2016 OFFICE/OUTPATIENT VISIT EST Diagnosis: Retention of urine, unspecified[ICD10: R33.9] Diagnosis: Urinary tract infection, site not specified[ICD10: N39.0] Chelsie Teixeira SAPNA JefryAmarjit BUZZ [facility] CPT-4: 25162 11/08/2015 ([id number]) OFFICE/OUTPATIENT VISIT EST Diagnosis: DERMATITIS NOS[ICD9: 692.9] Diagnosis: SEBACEOUS CYST[ICD9: 706.2] Sapna Rosagustabo SAPNA Johnston Claudio DANITZA [facility] CPT-4: 95287 06/14/2015 OFFICE/OUTPATIENT VISIT EST Diagnosis: LOCAL SKIN INFECTION[ICD9: 686.9] Diagnosis: FOLLICULITIS[ICD9: 704.8] Chelsie HASSAN [facility] CPT-4: 57250 05/18/2015 ([id number]) OFFICE/OUTPATIENT VISIT EST Diagnosis: Constipation[ICD9: 564.00] Sapna AU [facility] CPT-4: 85154 02/22/2015 ([id number]) OFFICE/OUTPATIENT VISIT EST Diagnosis: Thoracic back pain[ICD9: 724.1] Diagnosis: Thoracic degenerative disc disease[ICD9: 722.51] Diagnosis: Scoliosis[ICD9: 737.30] Sapna PARDO [facility] CPT-4: 40829 12/02/2014 ([id number]) OFFICE/OUTPATIENT VISIT EST Diagnosis: Thoracic back pain[ICD9: 724.1] Diagnosis: ACTINIC KERATOSIS[ICD9: 702.0] Sapna LIVE [facility] CPT-4: 32222 08/18/2014 OFFICE/OUTPATIENT VISIT NEW Diagnosis: HYPERTENSION[ICD9: 401.9] Diagnosis: Thoracic back pain[ICD9: 724.1] Diagnosis: GERD[ICD9: 530.81] Diagnosis: Adrenal tumor[ICD9: 239.7] Sapna AU [facility] CPT-4: 49392 07/08/2014 ([id number]) OFFICE/OUTPATIENT VISIT NEW Diagnosis: HYPERTENSION[ICD9: 401.9] Diagnosis: GERD[ICD9: 530.81] Sapna LIVE DO [facility] CPT-4: 10930 07/08/2014 Plan of Care Planned Activity Notes [...] ICD-9 : 424.1 ICD-10 : I35.1 10/02/2019 Care Plan: Referral Order SNOMED-CT : 30 [id number] Pending 10/02/2019 Visit Diagnosis Plan: Chest pain Discussion: will star t with cxray and rib xray. discussed that could be lung, rib, muscle but will start with cxray and patient may need echo. he verbalized understanding. ICD-9 : 786.50 ICD-10 : R07.9 08/25/2019 Appointment: Lashell Joe [address] [id number] ACUTE ILLNESS 08/25/2019 Visit Diagnosis Plan: Thoracic back pain Discussion: c hronic pain. will refer to dr. stallings [facility] [place] for evaluation and treatment ICD-9 : 724.1 [...] ct of lungs to be done at [facility]. ICD-9 : V15.82 ICD-10 : [...] : E27.8 08/13/2019 Appointment: Lashell Joe [address] [id number] FOLLOW UP 08/13/2019 Visit Diagnosis Plan: Sigmoid diverticulitis Discussio n: Bactrim/Flagyl Sunbright diet To ER this weekend if worsening ICD-9 : 562.11 ICD-10 : K57.32 07/03/2019 Visit Diagnosis Plan: Jock itch Discussion: Diflucan a nd topical nystatin ICD-9 : 110.3 ICD-10 : B35.6 07/03/2019 Visit Diagnosis Plan: Renal insufficiency Discussion: Labs discussed Continue off NSAIDS Hydrate Recheck Chemistry 3mos ICD-9 : 593.9 ICD-10 : N28.9 07/03/2019 Appointment: Sapna Live WPtel: [phone] [facility] FOLLOW UP 07/03/2019 Patient Education: fluconazole- [employer] [id number] Completed 07/03/2019 Patient Education: nystatin- [employer] [id number] Completed 07/03/2019 Visit Diagnosis Plan: Disorder of [...] : R25.2 06/05/2019 Appointment: Lashell Joe [address] [place], [place] [phone] NO SHOW - FORGIVEN 06/05/2019 Appointment: Lashell Joe [address] [place], [place] [phone] ACUTE ILLNESS 06/05/2019 Visit Diagnosis Plan: Pain [...] : L29.8 05/21/2019 Appointment: Lashell Joe [address] ACUTE ILLNESS 05/21/2019 Patient Education: hydroxyzine HCl- [employer] [id number] [email or web address] Completed 05/21/2019 Appointment: Sapna Live WPtel: [address] [place] [address] 05/19/19 1645---see note put in chart today (km) CANCELED 05/19/2019 Appointment: Sapna Live WPtel: [address] [place] [address] CANCELED 05/05/2019 Appointment: Sapna Live WPtel: [address] [place] [address] UA 04/21/2019 Visit Diagnosis Plan: Diverticulitis of [...] : K59.09 02/24/2019 [facility]ment: [facility] [facility] 02/24/2019 Visit Diagnosis Plan: Diverticulitis of large intestine without perforation or abscess with bleeding Discussion: Continue flagyl and cipro. A dvance diet to bland. BRAT diet advised. Avoid nuts, seeds, popcorn, roughage. RTC if abdominal pain worsens or does not improve. ICD-9 : 562.13 ICD-10 : K57.33 02/04/2019 Appointment: Nancy Mendiola [facility] FOLLOW UP 02/04/2019 Visit Diagnosis Plan: Left [...] ICD-10 : R10.32 01/29/2019 Appointment: Nancy Mendiola [facility] ACUTE ILLNESS 01/29/2019 Care Plan: CT PELVIS [...] L30.9 12/19/2018 Appointment: [facility]apna Live [facility]Ptel[phone] [facility] [facility] 12/19/2018 Visit Diagnosis Plan: Gastro-esophageal reflux disease without esophagitis Discussion: Continue protonix at 40mg daily Hold mobic No NSAIDS Hold all MVs If persists then will need EGD ICD-9 : 530.81 ICD-10 : K21.9 11/11/2018 Appointment: QuintonBarbara hassanline JefryAmarjit WPtel: [phone] [facility] [facility] 11/11/2018 Visit Diagnosis Plan: Encounter for [facility] adult medical examination without abnormal findings Discussion: up to date on labs. had infl uenza vaccine this season. see other plans for more detailed report. ICD-9 : V70.9 ICD-10 : Z00.00 10/09/2018 Visit Diagnosis Plan: Personal history of [...] ICD-10 : K91.89 10/09/2018 Visit Diagnosis Plan: Gastro-esophageal reflux disease [...] ICD-10 : K21.9 10/09/2018 Visit Diagnosis Plan: Essential (primary) hypertension Discussion: stable. continue with current medications. ICD-9 : 401.9 ICD-10 : I10 10/09/2018 Appointment: Lashell Joe [address] [place], [place] [phone] Annual Well Visit 10/09/2018 Patient Education: gabapentin- [employer] [id number] Completed 10/09/2018 Patient Education: Kegel Exercises Comple catalina 10/09/2018 Patient Education: High Blood Pressure Co mpleted 10/09/2018 Visit Diagnosis Plan: Pain in right knee Discussion: c orticosteroid injection administered as described above. patient tolerated well. instructed to rtc in 3- 4 months if needed for additional injection. ICD-9 : 719.46 ICD-10 : M25.561 02/19/2018 Appointment: Lashell Joe [address] [place], [place] [address] OFFICE SURGERY 02/19/2018 Patient Education: Patient Medication [...] ICD-10 : M25.561 02/12/2018 Appointment: Lashell Joe [address] [place], [place] [phone] ACUTE ILLNESS 02/12/2018 Patient Education: Patient Medication Summary Completed 02/12/2018 Care Plan: X-RAY EXAM OF KNEE 1 OR 2 [place] : 06[address]-1 Pending 02/12/2018 Visit Diagnosis Plan: Essential (primary) [...] ICD-10 : R07.89 12/03/2017 Appointment: Lashell Joe [address] [place] [address] ESTABLISHED PATIENT 12/03/2017 Patient Education: Patient Medication Summary Completed 12/03/2017 Visit Diagnosis Plan: Essential (primary) hypertension Discussion: Increase quinapril to 40mg daily BP check in 1month ICD-9 : 401.9 ICD-10 : I10 09/11/2017 Appointment: Sapna Live WPtel: [address] [place] [address] FOLLOW UP 09/11/2017 Patient Education: Patient Medication Summary Completed 09/11/2017 Appointment: Sapna Live WPtel: [address] [place] [address] RESCHEDULED 08/22/2017 Visit Diagnosis Plan: Essential (primary) hypertension Discussion: Increase quinapril to 20mg daily Follow Up: 1 months ICD-9 : 401.9 ICD-10 : I10 08/13/2017 Visit Diagnosis Plan: Encounter for [facility] adult medical examination without abnormal findings Discussion: Update fasting lab ICD-9 : V70.9 ICD-10 : Z00.00 08/13/2017 Visit Diagnosis Plan: Left lower quadrant pain Discuss ion: Update colonoscopy ICD-9 : 789.04 ICD-10 : R10.32 08/13/2017 Appointment: Sapna Live WPtel: [address] [place] [address] Annual Well Visit 08/13/2017 Patient Education: Patient Medication Summary Completed 08/13/2017 Appointment: Sapna Live WPtel: [address] [place], [place] [phone] THROAT SWAB 02/13/2017 Patient Education: Patient Medication Summary Completed 02/13/2017 Appointment: Sapna Live WPtel: [phone] [facility] BP CHECK 11/17/2016 Patient Education: Patient Medication Summary Completed 11/17/2016 Visit Plan: Due for colonoscopy in 2018 Had shingles shot and flu shot Change quinapril hct to plain quinapril and see if muscles twitches improve Fwup with Dr. Braga Lab discussed Discussed diet/exercise at length Check CT abdomen Recheck 3mos 07/19/2016 Appointment: Sapna Live WPtel: [facility] [place] [phone] 07/18 confirmed`sl PHYSICAL 07/19/2016 Patient Education: [...] earliest convenience 06/09/2016 Appointment: Sobia Monreal WPtel: [address] [place], [place] [phone] ACUTE ILLNESS 06/09/2016 Patient Education: Patient Medication Summary Completed 06/09/2016 Referral: Demario Braga WPtel: [facility] [place] [address] [place] Referral Initiated 11/12/2015 Visit Plan: Continue indwelling catheter until follow-up with Dr. Braga Continue Bactrim and Cipro Pyridium TID for Bladder spasms 11/08/2015 Appointment: Chelsie Teixeiratel: [address] [place], [place] [phone] ER Follow UP 11/08/2015 Patient Education: Patient Medication Summary Completed 11/08/2015 Referral: Abdiel Tucker WPtel: [phone] [facility] [place] Referral Initiated 06/21/2015 Visit Plan: Prednisone 20mg daily for 1w zuni See surgery of cyst removal 06/14/2015 Appointment: Sapna Live WPtel: [address] [place], [place] [phone] [place] 06/11 cn 06/14 cn FOLLOW UP 2014 Patient Education: Patient Medication Summary Completed 06/14/2015 Visit Plan: Warm moist compresses to Lef t shoulder lesion and apply topical Mupirocin twice daily Complete Cephalexin x 7 days as directed Resume Culturelle daily 05/18/2015 Appointment: Chelsie Teixeira WPtel: [address] [place], [place] [phone] ACUTE ILLNESS 05/18/2015 Patient Education: Patient Medication Summary Completed 05/18/2015 Visit Plan: Check fasting lab Use pain m eds prn with miralax on the day that takes pain meds 02/22/2015 Appointment: Sapna Live WPtel: [address] [place], [place] [phone] 02/19 [facility] 02/19 appt confirmed-lb ACUTE ILLNESS 5 Patient Education: Patient Medication Summary Completed 02/22/2015 Visit Plan: Increase neurontin to 300mg q HS Continue flexeril and tramadol Call in 1mo on how higher dose of gabapentin 12/02/2014 Appointment: Sapna Live WPtel: [address] [place], [place] [phone] [place] FOLLOW UP 12/02/2014 Patient Education: Patient Medication Summary Completed 12/02/2014 Referral: Eric Angelo WPtel: [address] [facility] [place] Referral Appointment Confirmed 09/15/2014 Visit Plan: Proceed with pain doctor for possible injection vs nerve block Trial of lidoderm patch Cryotherapy to lesions as above 08/18/2014 Appointment: Sapna Live WPtel: [phone] ACUTE ILLNESS 08/18/2014 Patient Education: Patient Medication Summary Completed 08/18/2014 Patient Education: Patient Medication Summary Completed 08/13/2014 Visit Plan: Continue current meds Obtain most recent lab results Check thoracic spine x-rays Needs updated CT scan of adrenal tumor 07/08/2014 Appointment: Sapna Live WPtel: [phone] 07/07 vm NEW PATIENT 07/08/2014 Patient Education: Patient Medication Summary Completed 07/08/2014 Patient Education: Patient Medication Summary Completed 07/08/2014 Referral: Suhail Cardenas WPtel: [phone] [place] [address] [place] Referral Completed Referral: Toby Bettencourt WPtel: [address] [place] [address] [place] [address] [place] Referral Completed Referral: Rosario Monahan WPtel: [phone] [facility] [place] [facility] C [place] Referral Appointment Requested Instructions Comment [...] indwelling catheter until fol low-up with Dr. Omi Continue Bactrim and Cipro [...]
--- OUTSIDE RECORDS SUMMARY | 2020-02-05 08:00 | XMS REPORT | CCD ---
Author Author Jai Live D.O. Organization [facility] Address [address] [place] [address] Phone Care Team Providers Care Fiction Writer Name Role Phone Sapna Live D.O., PP Unavailable CCM Unavailable Summary Purpose Interface Exchange Insurance Providers Payer name Policy type / Coverage type Covered constitution party ID Effective Begin Date Effective End Date GPA Commercial Insurance [id number] 2019 Unknown Family history Mother Diagnosis Age At Onset Cancer Unknown Father Diagnosis Age At Onset Congestive heart failure Unknown Coronary Artery Disease(CAD) Unknown Social History Social History Element Codes Description Effective Dates Tobacco history SNOMED CT: 2941983 Former smoker 10/09/2018 Marital status Unknown 07/08/2014 Number of children Unknown 1 07/08/2014 Employment Unknown Currently employed [employer] 07/08/[address]: 069674521 Never drinks alcohol 2013 Has the patient [...] Fill Instructions tramadol 50 mg tablet RxNorm: 332685 1 Tablet(s) Oral t hree times a day as needed for pain along with two tylenol 09/29/2019 No Stop Date Active quinapril 40 mg tablet RxNorm: 613552 1 Tablet(s) Oral QD 09/18/2019 03/15/2020 Active Patient requests 90 days supply tramadol 50 mg tablet RxNorm: 654028 1 Tablet(s) Oral t hree times a day as needed for pain along with two tylenol 08/28/2019 08/28/2019 Inactive tramadol 50 mg tablet RxNorm: 162935 1 Tablet(s) PO TID as needed for pain along with two tylenol 08/25/2019 08/27/2019 Inactive pantoprazole 40 mg tablet,delayed release RxNorm: 889889 1 Tabl et(s) Oral QD 08/13/2019 No Stop Date Active Vitamin D3 1,000 unit capsule RxNorm: 465253 1 Capsule(s) Oral QD 1 10/13/2018 No Stop Date Active tamsulosin 0.4 mg capsule RxNorm: 726625 1 Capsule(s) Oral QPM 07/26 No Stop Date Active Protonix 40 mg tablet,delayed release RxNorm: 900823 TA KE 1 TABLET BY MOUTH TWICE A DAY 08/04/2019 08/12/2019 Inactive Flagyl 500 mg tablet RxNorm: 877802 1 Tablet(s) Oral three time s a day 07/03/2019 07/13/2019 Inactive fluconazole 100 mg tablet RxNorm: 411345 1 Tablet(s) Oral QD 201807/10/2019 Inactive Bactrim DS 800 mg-160 mg tablet RxNorm: 721376 1 Tablet(s) Oral two times a day 07/03/2019 07/13/2019 Inactive nystatin 100,000 unit/gram topical cream RxNorm: 033475 Application Topical two times a day 07/03/2019 08/12/2019 Inactive gabapentin 600 mg tablet RxNorm: 308241 Tablet(s) TAKE 1 TABLET BY MOUTH EVERY NIGHT AT BEDTIME 06/25/2019 08/12/2019 Inactive - First Attempt Ref: [id number] quinapril 40 mg tablet RxNorm: 661917 1 Tablet(s) Oral QD 06/23/2019 09/17/2019 Inactive Patient requests 90 days supply tramadol 50 mg tablet RxNorm: 009986 1 Tablet(s) PO TID as needed for pain along with two tylenol 05/23/2019 08/24/2019 Inactive hydroxyzine HCl 25 mg tablet RxNorm: 729921 1 Tablet(s) PO TID as needed 05/21/2019 08/12/2019 Inactive Elimite 5 % topical cream RxNorm: 846158 1 Application TOP QHS apply head to toe and was off in morning 05/19/2019 07/02/2019 Inactive Protonix 40 mg tablet,delayed release RxNorm: 544631 1 Tablet(s ) PO BID 05/05/2019 08/02/2019 Inactive - First Attempt Ref: [id number] gabapentin 600 mg tablet RxNorm: 472421 Tablet(s) TAKE 1 TABLET BY MOUTH EVERY NIGHT AT BEDTIME 04/25/2019 06/24/2019 Inactive - First Attempt Ref: [id number] tramadol 50 mg tablet RxNorm: 669694 1 Tablet(s) PO TID as needed for pain along with two tylenol 04/21/2019 05/22/2019 Inactive quinapril 40 mg tablet RxNorm: 889504 1 Tablet(s) PO QD 04/01/2019 Inactive Patient requests 90 days supply fenofibrate micronized 134 mg capsule RxNorm: 841666 1 Capsule(s) PO QD Due for updated fasting labs 03/31/2019 08/12/2019 Inactive dicyclomine 10 mg capsule RxNorm: 267153 1 Capsule(s) PO TID as needed 02/24/2019 05/20/2019 Inactive Flagyl 500 mg tablet RxNorm: 740534 1 Tablet(s) PO Q8H 02/24/201908/2019 Inactive ciprofloxacin 500 mg tablet RxNorm: 969725 1 Tablet(s) PO BID 02/2403/09/2019 Inactive Flagyl 500 mg tablet RxNorm: 452622 1 Tablet(s) PO Q6H 01/30/2019 Inactive ciprofloxacin 500 mg tablet RxNorm: 086810 1 Tablet(s) PO BID 01/3001/29/2019 Inactive Flagyl 500 mg tablet RxNorm: 830833 1 Tablet(s) PO Q6H 01/30/201904/2019 Inactive ciprofloxacin 500 mg tablet RxNorm: 586160 1 Tablet(s) PO BID 01/3002/05/2019 Inactive gabapentin 600 mg tablet RxNorm: 169884 TAKE 1 TABLET B Y MOUTH EVERY NIGHT AT BEDTIME 01/27/2019 04/24/2019 Inactive - First Attempt Ref: [id number] tramadol 50 mg tablet RxNorm: 762477 1 Tablet(s) PO TID as needed for pain along with two tylenol 01/08/2019 04/20/2019 Inactive fenofibrate micronized 134 mg capsule RxNorm: 389361 1 Capsule(s) PO QD Due for updated fasting labs 01/02/2019 03/30/2019 Inactive quinapril 40 mg tablet RxNorm: 833255 1 Tablet(s) PO QD 01/01/2019 Inactive Patient requests 90 days supply Protonix 40 mg tablet,delayed release RxNorm: 873751 TA KE 1 TABLET BY MOUTH TWICE A DAY 01/01/2019 03/31/2019 Inactive - First Attempt Ref: [id number] Protonix 40 mg tablet,delayed release RxNorm: 416967 TA KE 1 TABLET BY MOUTH TWICE A DAY 12/25/2018 12/31/2018 Inactive - First Attempt Ref: [id number] gabapentin 600 mg tablet RxNorm: 235487 TAKE 1 TABLET B Y MOUTH EVERY NIGHT AT BEDTIME 12/02/2018 01/26/2019 Inactive - First Attempt Ref: [id number] Protonix 40 mg tablet,delayed release RxNorm: 269183 1 Tablet(s ) PO BID 11/11/2018 12/24/2018 Inactive Protonix 40 mg tablet,delayed release RxNorm: 764964 1 Tablet(s ) PO BID 10/09/2018 11/10/2018 Inactive gabapentin 600 mg tablet RxNorm: 588658 1 Tablet(s) PO QHS 10/09/1912/01/2018 Inactive quinapril 40 mg tablet RxNorm: 761134 1 Tablet(s) PO QD 1 TABLE T(S) PO QD 08/08/2018 08/07/2018 Inactive Patient requests 9 0 days supply quinapril 40 mg tablet RxNorm: 151504 1 Tablet(s) PO QD 08/08/2018 Inactive Patient requests 90 days supply meloxicam 15 mg tablet RxNorm: 699049 1 Tablet(s) PO QD 08/08/2018 Inactive gabapentin 300 mg capsule RxNorm: 223914 1 CAPSULE(S) P O QHS DUE FOR WELLNESS VISIT 08/07/2018 10/08/2018 Inactive due for followup meloxicam 15 mg tablet RxNorm: 848250 Tablet(s) 1 TABLET(S) PO QD 1 10/07/2017 08/07/2018 Inactive fenofibrate micronized 134 mg capsule RxNorm: 624616 1 Capsule(s) PO QD Needs updated fasting labs!!!!!! 07/08/2018 07/07/2018 Inactive fenofibrate micronized 134 mg capsule RxNorm: 261132 1 Capsule( s) PO QD 07/08/2018 01/01/2019 Inactive fenofibrate micronized 134 mg capsule RxNorm: 030568 1 Capsule(s) PO QD Needs updated fasting labs!!!!!! 06/21/2018 07/08/2018 Inactive Medrol (Daniel) 4 mg tablets in a dose pack RxNorm: 368379 Tablet(s) PO As Directed 05/06/2018 05/05/2018 Inactive Medrol (Daniel) 4 mg tablets in a dose pack RxNorm: 502991 Tablet(s) PO As Directed 05/06/2018 08/07/2018 Inactive quinapril 40 mg tablet RxNorm: 551208 1 TABLET(S) PO QD 05/02/2018 Inactive Patient requests 90 days supply fenofibrate micronized 134 mg capsule RxNorm: 252111 1 Capsule(s) PO QD Needs updated fasting labs 04/29/2018 05/28/2018 Inactive Move Free [employer] [facility] 750 mg-100 mg-1.65 mg-108 mg tablet R xNorm: 1 Tablet(s) PO QD 02/12/2018 03/13/2018 Inactive fenofibrate micronized 134 mg capsule RxNorm: 550841 Ca psule(s) 1 CAPSULE(S) PO QD 01/29/2018 06/21/2018 Inactive quinapril 40 mg tablet RxNorm: 513067 1 TABLET(S) PO QD 11/26/2017 Inactive Patient requests 90 days supply fenofibrate micronized 134 mg capsule RxNorm: 265770 1 CAPSULE( S) PO QD 11/06/2017 01/29/2018 Inactive gabapentin 300 mg capsule RxNorm: 997797 1 CAPSULE(S) P O QHS DUE FOR WELLNESS VISIT 10/24/2017 07/20/2018 Inactive due for followup meloxicam 15 mg tablet RxNorm: 662416 1 TABLET(S) PO QD 10/24/2017 Inactive quinapril 40 mg tablet RxNorm: 910762 1 Tablet(s) PO QD 10/24/2017 Inactive fenofibrate micronized 134 mg capsule RxNorm: 774879 1 Capsule( s) PO QD 08/22/2017 11/05/2017 Inactive fenofibrate micronized 134 mg capsule RxNorm: 633614 1 Capsule( s) PO QD 08/22/2017 08/21/2017 Inactive quinapril 20 mg tablet RxNorm: 321308 1 Tablet(s) PO QD 08/13/2017 Inactive gabapentin 300 mg capsule RxNorm: 200952 1 Capsule(s) P O QHS Due for wellness visit 08/06/2017 10/23/2017 Inactive due for followup gabapentin 300 mg capsule RxNorm: 289674 1 Capsule(s) P O QHS Due for wellness visit 08/02/2017 08/05/2017 Inactive due for followup meloxicam 15 mg tablet RxNorm: 133252 1 Tablet(s) PO QD 08/01/2017 Inactive gabapentin 300 mg capsule RxNorm: 120966 1 Capsule(s) P O QHS Due for wellness visit 08/01/2017 08/01/2017 Inactive due for followup gabapentin 300 mg capsule RxNorm: 735695 1 Capsule(s) P O QHS Due for wellness visit 08/01/2017 08/02/2017 Inactive gabapentin 300 mg capsule RxNorm: 998106 1 Capsule(s) PO QHS 201605/12/2017 Inactive quinapril 10 mg tablet RxNorm: 154270 1 Tablet(s) PO QD replace s quinapril hct 02/12/2017 08/12/2017 Inactive meloxicam 15 mg tablet RxNorm: 145367 1 Tablet(s) PO QD 02/05/2017 Inactive quinapril 10 mg tablet RxNorm: 480848 1 Tablet(s) PO QD replace s quinapril hct 11/16/2016 02/12/2017 Inactive gabapentin 300 mg capsule RxNorm: 941666 1 Capsule(s) PO QHS 201602/12/2017 Inactive quinapril 10 mg tablet RxNorm: 497190 1 Tablet(s) PO QD replace s quinapril hct 10/16/2016 11/15/2016 Inactive gabapentin 300 mg capsule RxNorm: 257561 1 Capsule(s) PO QHS 201511/15/2016 Inactive quinapril 10 mg tablet RxNorm: 109747 1 Tablet(s) PO QD replace s quinapril hct 07/19/2016 10/15/2016 Inactive meloxicam 15 mg tablet RxNorm: 923855 1 Tablet(s) PO QD 07/10/2016 Inactive meloxicam 15 mg tablet RxNorm: 001078 TAKE ONE TABLET BY MOUTH LUKE Y 07/10/2016 07/09/2016 Inactive meloxicam 15 mg tablet RxNorm: 612532 1 Tablet(s) PO QD 07/06/2016 Inactive meloxicam 15 mg tablet RxNorm: 615798 1 Tablet(s) PO QD 06/09/2016 Inactive Multivitamin & Mineral Formula tablet RxNorm: 1 Tablet(s) PO Q D 06/02/2016 07/01/2016 Inactive tamsulosin 0.4 mg capsule RxNorm: 016534 1 Capsule(s) PO QHS 201507/01/2016 Inactive Move [facility] 750 mg-100 mg-1.65 mg-108 mg tablet R xNorm: 1 Tablet(s) PO QD 06/02/2016 07/01/2016 Inactive gabapentin 300 mg capsule RxNorm: 950082 1 Capsule(s) PO QHS 201508/27/2016 Inactive gabapentin 300 mg capsule RxNorm: 408292 Capsule(s) ALFONZO E ONE CAPSULE BY MOUTH AT BEDTIME 02/28/2016 05/27/2016 Inactive quinapril 10 mg-hydrochlorothiazide 12.5 mg tablet RxNorm: 3 52166 Tablet(s) TAKE ONE TABLET BY MOUTH EVERY MORNING 01/14/2016 07/18/2016 Inactive gabapentin 300 mg capsule RxNorm: 204219 TAKE ONE CAPSULE BY MO [facility] AT BEDTIME 12/28/2015 02/27/2016 Inactive Urecholine 25 mg tablet RxNorm: 461333 1 Tablet(s) PO TID 11/09/2015 07/18/2016 Inactive phenazopyridine 100 mg tablet RxNorm: 8277526 1 Tablet(s ) PO TID as needed for bladder spasms. 11/08/2015 11/08/2015 Inactive quinapril 10 mg-hydrochlorothiazide 12.5 mg tablet RxNorm: 3 71321 TAKE ONE TABLET BY MOUTH EVERY MORNING 10/15/2015 01/13/2016 Inactive gabapentin 300 mg capsule RxNorm: 330997 1 Tablet(s) PO QD TAKE ONE CAPSULE BY MOUTH EVERY NIGHT AT BEDTIME 09/23/2015 12/21/2015 Inactive quinapril 10 mg-hydrochlorothiazide 12.5 mg tablet RxNorm: 3 97075 Tablet(s) TAKE ONE TABLET BY MOUTH EVERY MORNING 07/14/2015 10/14/2015 Inactive gabapentin 300 mg capsule RxNorm: 228472 1 Tablet(s) PO QD TAKE ONE CAPSULE BY MOUTH EVERY NIGHT AT BEDTIME 06/25/2015 09/23/2015 Inactive prednisone 20 mg tablet RxNorm: 064367 1 Tablet(s) PO QD 06/14/2015 0 06/20/2015 Inactive cephalexin 500 mg capsule RxNorm: 406839 1 Capsule(s) PO BID 201405/27/2015 Inactive mupirocin 2 % topical ointment RxNorm: 197375 TOP BID 05/18/2015 0 06/13/2015 Inactive quinapril 10 mg-hydrochlorothiazide 12.5 mg tablet RxNorm: 3 04260 Tablet(s) TAKE ONE TABLET BY MOUTH EVERY MORNING 04/06/2015 07/14/2015 Inactive gabapentin 300 mg capsule RxNorm: 490818 1 Capsule(s) PO QHS 201404/01/2015 Inactive [SAVINGS FOR NON-COVERED LILIANA GS -- BIN:868728, PCN: ASPROD1, Group: XXXXX, ID# [id number], Questions: . THIS IS NOT INSURANCE.] gabapentin 300 mg capsule RxNorm: 695255 1 Capsule(s) PO QHS 201406/25/2015 Inactive [SAVINGS FOR NON-COVERED LILIANA GS -- BIN:341508, PCN: ASPROD1, Group: XXXXX, ID# [id number], Questions: . THIS IS NOT INSURANCE.] quinapril 10 mg-hydrochlorothiazide 12.5 mg tablet RxNorm: 3 11779 TAKE ONE TABLET BY MOUTH EVERY MORNING 12/11/2014 04/05/2015 Inactive gabapentin 300 mg capsule RxNorm: 603169 1 Capsule(s) PO QHS 201404/02/2015 Inactive [SAVINGS FOR NON-COVERED LILIANA GS -- BIN:055992, PCN: ASPROD1, Group: XXXXX, ID# [id number], Questions: . THIS IS NOT INSURANCE.] cyclobenzaprine 10 mg tablet RxNorm: 457626 1 Tablet(s) PO TID as needed for muscle spasm for muscle spasm 12/02/2014 02/21/2015 Inactive [S AVINGS FOR NON- COVERED DRUGS -- BIN:488149, PCN: ASPROD1, Group: XXXXX, ID# [id number], Questions: . THIS IS NOT INSURANCE.] gabapentin 100 mg capsule RxNorm: 112347 1 Capsule(s) PO QHS 201412/01/2014 Inactive [SAVINGS FOR NON-COVERED LILIANA GS -- BIN:158792, PCN: ASPROD1, Group: XXXXX, ID# [id number], Questions: . THIS IS NOT INSURANCE.] ibuprofen 800 mg tablet RxNorm: 585319 1 Tablet(s) PO T ID as needed low back pain 11/11/2014 11/23/2014 Inactive [SAVINGS FOR NON -COVERED DRUGS -- BIN:608321, PCN: ASPROD1, Group: XXXXX, ID# [id number], Questions: . THIS IS NOT INSURANCE.] ibuprofen 800 mg tablet RxNorm: 332481 1 Tablet(s) PO T ID as needed low back pain 11/09/2014 11/10/2014 Inactive [SAVINGS FOR NON -COVERED DRUGS -- BIN:744263, PCN: ASPROD1, Group: XXXXX, ID# [id number], Questions: . THIS IS NOT INSURANCE.] Zorvolex 35 mg capsule RxNorm: 3780563 1 Tablet(s) PO TID 08/27/2014 10/01/2014 Inactive [SAVINGS FOR UNINSURED PATIENTS -- BIN:0 69531, PCN: ASPROD1, Group: [id number], ID# [id number], Process claim through Datadog, for questions: . THIS IS NOT INSURANCE.] quinapril 10 mg-hydrochlorothiazide 12.5 mg tablet RxNorm: 3 28149 1 Tablet(s) PO QAM 08/27/2014 11/24/2014 Inactive Lidoderm 5 % (700 mg/patch) adhesive patch RxNorm: 0305040 Application TOP for 12hours then off for pain 08/18/2014 02/21/2015 Inactive [SAVIN GS FOR UNINSURED PATIENTS -- BIN:453098, PCN: ASPROD1, Group: AME08, ID# [id number], Process claim through Datadog, for questions: . THIS IS NOT INSURANCE.] Zorvolex 35 mg capsule RxNorm: 3874293 1 Tablet(s) PO TID 08/13/2014 08/12/2014 Inactive Zorvolex 35 mg capsule RxNorm: 8076096 1 Tablet(s) PO TID 08/13/2014 08/24/2014 Inactive [SAVINGS FOR UNINSURED PATIENTS -- BIN:0 54556, PCN: ASPROD1, Group: AME08, ID# [id number], Process claim through Datadog, for questions: . THIS IS NOT INSURANCE.] Aspirin Child 81 mg chewable tablet RxNorm: 435816 1 Tablet(s) PO QD No Start Date Active ibuprofen 800 mg tablet RxNorm: 984626 1 Tablet(s) PO T ID as needed low back pain No Start Date 11/08/2014 Inactive cyclobenzaprine 10 mg tablet RxNorm: 549792 1 Tablet(s) PO TID No S tart Date 08/12/2017 Inactive garlic 1,000 mg capsule RxNorm: 187706 1 Capsule(s) PO QD No Start Date 04/22/2019 Inactive tramadol 50 mg tablet RxNorm: 877028 1 Tablet(s) PO Q4-6H as ne eded for pain No Start Date 02/21/2015 Inactive tramadol 50 mg tablet RxNorm: 390752 1 Tablet(s) PO TID as needed for pain along with two tylenol No Start Date 01/07/2019 Inactive krill oil oral RxNorm: 36158 oral No Start Date 11/11/2018 Inacti ve Vitamin D3 2,000 unit tablet RxNorm: 177850 1 Tablet(s) PO QD No St art Date 08/12/2019 Inactive gabapentin 100 mg tablet RxNorm: 638312 1 Tablet(s) PO QD No Start Date 11/10/2014 Inactive Zofran 4 mg tablet RxNorm: 892436 1 Tablet(s) PO Q6H as needed No S tart Date 08/12/2019 Inactive Elimite 5 % topical cream RxNorm: 383184 1 Application TOP QHS apply head to toe and was off in morning No Start Date 05/18/2019 Inactive gabapentin 100 mg capsule RxNorm: 938408 1 Capsule(s) PO QHS No Sta rt Date 11/10/2014 Inactive aspirin 325 mg tablet RxNorm: 741514 2 Tablet(s) PO QD No Start Date 08/17/2014 Inactive Fish Oil 1,000 mg capsule RxNorm: 1 Capsule(s) PO QD No Start Date 10/08/2018 Inactive quinapril 10 mg-hydrochlorothiazide 12.5 mg tablet RxNorm: 3 27452 1 Tablet(s) PO QAM No Start Date 08/26/2014 Inactive quinapril 40 mg tablet RxNorm: 568524 1 Tablet(s) PO QD No Start Da te 10/23/2017 Inactive Medrol (Daniel) 4 mg tablets in a dose pack RxNorm: 154055 Tablet(s) PO As Directed No Start Date 05/05/2018 Inactive Urecholine 25 mg tablet RxNorm: 873310 1 Tablet(s) PO TID No Start Date 11/08/2015 Inactive cyclobenzaprine 10 mg tablet RxNorm: 388360 1/2-1 Table t(s) PO TID as needed for muscle spasm No Start Date 12/01/2014 Inactive tamsulosin 0.4 mg capsule RxNorm: 946995 2 Capsule(s) PO QPM No Sta rt Date 08/12/2019 Inactive hydrocodone 5 mg-acetaminophen 325 mg tablet RxNorm: 407081 1 -2 Tablet(s) PO Q6H as needed No Start Date 05/20/2019 Inactive loratadine 10 mg tablet RxNorm: 911832 1 Tablet(s) PO QD No Start D ate 07/07/2014 Inactive Medication Administered No Medication Administered data Immunizations Vaccine Codes Date Status Influenza CVX: 141 07/21/2019 Results Observation Observation Code Item Item Code Result Date S [facility] Location CULTURE, URINE, ROUTINE 395 CULTURE SEE NOTE 1 10/15/2018 [facility] Becerra [address] [place] [address] CULTURE, URINE, ROUTINE 395 CULTURE, URINE, ROUTINE SEE NOTE 08/15/2019 Zay Becerra [address] [place] [address] CBC (H/H, RBC, INDICES, WBC, PLT) 16410 WHITE BLOOD CELL COU NT 7.9 Thousand/uL 08/14/2019 [facility] Bec[facility] [address] [place] [address] CBC (H/H, RBC, INDICES, WBC, PLT) 74876 RED BLOOD CELL COUNT 4.93 Million/uL 08/14/2019 Zay Becerra [address] [place] [address] CBC (H/H, RBC, INDICES, WBC, PLT) 68093 HEMOGLOBIN 15 .4 g/dL 08/14/2019 [facility] [address] [address] CBC (H/H, RBC, INDICES, WBC, PLT) 57941 HEMATOCRIT 45 .0 % 08/14/[address] [facility] [address] CBC (H/H, RBC, INDICES, WBC, PLT) 51835 MCV 91 .3 fL 08/14/2019 [facility] [address] CBC (H/H, RBC, INDICES, WBC, PLT) 69647 MCH 31 .2 pg 08/14/2019 [facility] [address] CBC (H/H, RBC, INDICES, WBC, PLT) 82370 MCHC 34 .2 g/dL 08/14/2019 [facility] [address] CBC (H/H, RBC, INDICES, WBC, PLT) 39951 RDW 12 .7 % 08/14/2019 [facility] [address] CBC (H/H, RBC, INDICES, WBC, PLT) 08074 PLATELET COUNT 214 Thousand/uL 08/14/2019 [facility] [address] CBC (H/H, RBC, INDICES, WBC, PLT) 11959 MPV 11 .5 fL 08/14/2019 [facility] [address] COMPREHENSIVE METABOLIC PANEL 70831 Glucose 113 mg /dL 08/14/[address] [address] COMPREHENSIVE METABOLIC PANEL 48690 UREA NITROGEN (BUN) 16 mg/dL 08/14/2019 [facility] [address] COMPREHENSIVE METABOLIC PANEL 67562 CREATININE 0.86 m g/dL 08/14/2019 [facility] [address] COMPREHENSIVE METABOLIC PANEL 24630 eGFR NON-AFR. [place] 92 mL/min/1.73m2 08/14/2019 [facility] [address] COMPREHENSIVE METABOLIC PANEL 93352 eGFR 106 mL/min/1.73m2 08/14/2019 [facility] [address] COMPREHENSIVE METABOLIC PANEL 21380 BUN/CREATININE RATIO NOT APPLICABLE (calc) 08/14/[address] [address] COMPREHENSIVE METABOLIC PANEL 95507 SODIUM 141 mm ol/L 08/14/2019 [facility] [address] COMPREHENSIVE METABOLIC PANEL 90507 POTASSIUM 4.1 mm ol/L 08/14/2019 [facility] [address] COMPREHENSIVE METABOLIC PANEL 52972 CHLORIDE 102 mm ol/L 08/14/2019 [facility] [address] COMPREHENSIVE METABOLIC PANEL 15721 CARBON DIOXIDE 28 mmol/L 08/14/2019 [facility] [address] COMPREHENSIVE METABOLIC PANEL 15853 CALCIUM 9.7 mg /dL 08/14/2019 [facility] [address] COMPREHENSIVE METABOLIC PANEL 29812 PROTEIN, TOTAL 6. 7 g/dL 08/14/2019 [facility] [address] COMPREHENSIVE METABOLIC PANEL 12318 ALBUMIN 4.3 g/ dL 08/14/2019 [facility] [address] COMPREHENSIVE METABOLIC PANEL 93990 GLOBULIN 2.4 g/ dL(calc) 08/14/[address] [address] COMPREHENSIVE METABOLIC PANEL 59336 ALBUMIN/GLOBULIN RATIO 1.8 (calc) 08/14/2019 [facility] [address] COMPREHENSIVE METABOLIC PANEL 48064 BILIRUBIN, TOTAL 1.0 mg/dL 08/14/2019 [facility] [address] COMPREHENSIVE METABOLIC PANEL 06535 ALKALINE PHOSPHATASE 56 U/L 08/14/2019 [facility] [address] COMPREHENSIVE METABOLIC PANEL 36532 AST 18 U/L 08/14/2019 [facility] [address] [place] [address] COMPREHENSIVE METABOLIC PANEL 30971 ALT 28 U/L 08/14/2019 [facility] [address] [address] MAGNESIUM 84819 MAGNESIUM 2.0 mg/dL 06/06/2019 [facility] [address] [address] COMPREHENSIVE METABOLIC PANEL 10580 Glucose 106 mg /dL 06/06/2019 [facility] [address] [address] COMPREHENSIVE METABOLIC PANEL 46142 UREA NITROGEN (BUN) 22 mg/dL 06/06/2019 [facility] [address] [address] COMPREHENSIVE METABOLIC PANEL 34949 CREATININE 1.29 m g/dL 06/06/2019 [facility] [address] [address] COMPREHENSIVE METABOLIC PANEL 62290 eGFR NON-AFR. [place] 58 mL/min/1.73m2 06/06/2019 [facility] [address] [address] COMPREHENSIVE METABOLIC PANEL 26875 eGFR 67 mL/min/1.73m2 06/06/2019 [facility] [address] [address] COMPREHENSIVE METABOLIC PANEL 46347 BUN/CREATININE RATIO 17 (calc) 06/06/2019 [facility] [address] [place] [address] COMPREHENSIVE METABOLIC PANEL 18529 SODIUM 138 mm ol/L 06/06/2019 [facility] [address] [address] COMPREHENSIVE METABOLIC PANEL 13167 POTASSIUM 4.2 mm ol/L 06/06/2019 [facility] [address] [address] COMPREHENSIVE METABOLIC PANEL 90480 CHLORIDE 101 mm ol/L 06/06/2019 [facility] [address] [address] COMPREHENSIVE METABOLIC PANEL 98470 CARBON DIOXIDE 29 mmol/L 06/06/2019 [facility] [address] [address] COMPREHENSIVE METABOLIC PANEL 22846 CALCIUM 9.6 mg /dL 06/06/[address] [facility] [address] COMPREHENSIVE METABOLIC PANEL 55116 PROTEIN, TOTAL 6. 9 g/dL 06/06/2019 [facility] [address] COMPREHENSIVE METABOLIC PANEL 32725 ALBUMIN 4.4 g/ dL 06/06/2019 [facility] [address] COMPREHENSIVE METABOLIC PANEL 75419 GLOBULIN 2.5 g/ dL(calc) 06/06/2019 [facility] [address] COMPREHENSIVE METABOLIC PANEL 66003 ALBUMIN/GLOBULIN RATIO 1.8 (calc) 06/06/2019 [facility] [address] COMPREHENSIVE METABOLIC PANEL 31545 BILIRUBIN, TOTAL 0.7 mg/dL 06/06/2019 [facility] [address] COMPREHENSIVE METABOLIC PANEL 94331 ALKALINE PHOSPHATASE 45 U/L 06/06/2019 [facility] [address] COMPREHENSIVE METABOLIC PANEL 20986 AST 21 U/L 06/06/2019 [facility] [address] COMPREHENSIVE METABOLIC PANEL 69617 ALT 34 U/L 06/06/2019 [facility] [address] CULTURE, URINE, ROUTINE 395 CULTURE, URINE, ROUTINE SEE NOTE 04/23/2019 [facility] [address] CULTURE, URINE, ROUTINE 395 CULTURE SEE NOTE 0 04/23/2019 [facility] [address] EXTRA 1014 EXTRA TUBE RECEIVED 04/22 [facility] [address] EXTRA 1014 SPECIMEN TYPE RECEIVED: LAV 0 04/22/2019 [facility] [address] COMPREHENSIVE METABOLIC PANEL 73668 Glucose 94 mg/ dL 04/22/2019 [facility] [address] COMPREHENSIVE METABOLIC PANEL 65967 UREA NITROGEN (BUN) 20 mg/dL 04/22/2019 [facility] [address] COMPREHENSIVE METABOLIC PANEL 32779 CREATININE 1.30 m g/dL 04/22/[address] [facility] [address] COMPREHENSIVE METABOLIC PANEL 80470 eGFR NON-AFR. [place] 58 mL/min/1.73m2 04/22/2019 [facility] [address] COMPREHENSIVE METABOLIC PANEL 07859 eGFR 67 mL/min/1.73m2 04/22/2019 [facility] [address] COMPREHENSIVE METABOLIC PANEL 77037 BUN/CREATININE RATIO 15 (calc) 04/22/2019 [facility] [address] COMPREHENSIVE METABOLIC PANEL 65192 SODIUM 139 mm ol/L 04/22/[address] [facility] [address] COMPREHENSIVE METABOLIC PANEL 79275 POTASSIUM 4.2 mm ol/L 04/22/2019 [facility] [address] COMPREHENSIVE METABOLIC PANEL 30014 CHLORIDE 104 mm ol/L 04/22/2019 [facility] [address] COMPREHENSIVE METABOLIC PANEL 31849 CARBON DIOXIDE 27 mmol/L 04/22/2019 [facility] [address] COMPREHENSIVE METABOLIC PANEL 04071 CALCIUM 9.9 mg /dL 04/22/2019 [facility] [address] COMPREHENSIVE METABOLIC PANEL 94571 PROTEIN, TOTAL 7. 1 g/dL 04/22/2019 [facility] [address] COMPREHENSIVE METABOLIC PANEL 07271 ALBUMIN 4.6 g/ dL 04/22/2019 [facility] [address] COMPREHENSIVE METABOLIC PANEL 93097 GLOBULIN 2.5 g/ dL(calc) 04/22/2019 [facility] [address] COMPREHENSIVE METABOLIC PANEL 38199 ALBUMIN/GLOBULIN RATIO 1.8 (calc) 04/22/[address] [facility] [address] [address] COMPREHENSIVE METABOLIC PANEL 24190 BILIRUBIN, TOTAL 0.4 mg/dL 04/22/[address] [address] COMPREHENSIVE METABOLIC PANEL 25219 ALKALINE PHOSPHATASE 53 U/L 04/22/[address] [address] COMPREHENSIVE METABOLIC PANEL 05190 AST 21 U/L 04/22/2019 [facility] [address] COMPREHENSIVE METABOLIC PANEL 27095 ALT 34 U/L 04/22/[address] [address] CULTURE, URINE, ROUTINE 395 CULTURE, URINE, ROUTINE SEE NOTE 01/31/[address] [address] Procedures Procedure Codes Date URINALYSIS NONAUTO W/O SCOPE CPT-4: 40384 10/02/2019 URINE CULTURE/ COLONY COUNT CPT-4: 99003 10/02/2019 ROUTINE VENIPUNCTURE CPT-4: 49143 08/13/2019 URINALYSIS NONAUTO W/O SCOPE CPT-4: 22171 08/13/2019 CULTURE, URINE, ROUTINE CPT-4: 395 08/13/2019 COMPREHENSIVE METABOLIC PANEL CPT-4: 59974 08/13/2019 CBC (H/H, RBC, INDICES, WBC, PLT) CPT-4: 23957 2018 COMPREHENSIVE METABOLIC PANEL CPT-4: 33186 06/05/2019 MAGNESIUM CPT-4: 28308 06/05/2019 DEXAMETHASONE SODIUM PHOS CPT-4: J1100 05/21/2019 THER/PROPH/DIAG INJ SC/IM CPT-4: 18014 05/21/2019 TRIAMCINOLONE ACET INJ NOS CPT-4: J3301 05/21/2019 ROUTINE VENIPUNCTURE CPT-4: 25371 04/21/2019 COMPREHENSIVE METABOLIC PANEL CPT-4: 66170 04/21/2019 EXTRA CPT-4: 1014 04/21/2019 CULTURE, URINE, ROUTINE CPT-4: 395 04/21/2019 URINALYSIS NONAUTO W/O SCOPE CPT-4: 94565 04/21/2019 URINALYSIS NONAUTO W/O SCOPE CPT-4: 83875 01/29/2019 CULTURE, URINE, ROUTINE CPT-4: 395 01/29/2019 DRAIN/INJECT JOINT/BURSA CPT-4: 97267 02/19/2018 TRIAMCINOLONE ACET INJ NOS CPT-4: J3301 02/19/2018 DEXAMETHASONE SODIUM PHOS CPT-4: J1100 02/19/2018 THER/PROPH/DIAG INJ SC/IM CPT-4: 17390 02/12/2018 TRIAMCINOLONE ACET INJ NOS CPT-4: J3301 02/12/2018 DEXAMETHASONE SODIUM PHOS CPT-4: J1100 02/12/2018 CEFTRIAXONE SODIUM INJECTION CPT-4: J0696 12/03/2017 THER/PROPH/DIAG INJ SC/IM CPT-4: 72784 12/03/2017 THER/PROPH/DIAG INJ SC/IM CPT-4: 17361 12/03/2017 METHYLPREDNISOLONE INJECTION CPT-4: J2930 12/03/2017 URINALYSIS NONAUTO W/O SCOPE CPT-4: 47817 08/13/2017 STREP A ASSAY W/OPTIC CPT-4: 58245 02/13/2017 DESTRUCT PREMALG LESION (Cryosurgery) CPT-4: 78219 Vital Signs Date Vital 10/02/2019 Blood Pressure [...] 1: 128/78 Code: 8480-6 BMI: 36.0 Code: 12688-8 Heart Rate 1: 68 bpm Height: 5'7" [...] 1: 138/86 Code: 8480-6 BMI: 35.6 Code: 09751-3 Heart Rate 1: 68 bpm Height: 5'7" SpO2: 95% Temperature: 36.6 (C) / 97.8 (F) Weight: 227 lbs 12/03/2017 Blood Pressure 1: 134/84 Code: 8480-6 BMI: 34.3 Code: 62324-2 Heart Rate 1: 68 bpm Height: 5'7" Respiratory Rate: 20 bpm SpO2: 96% Tempera ture: 35.9 (C) / 96.6 (F) Weight: 219 lbs 09/11/2017 Blood Pressure 1: 140/86 Code: 8480-6 BMI: 34.9 Code: 26778-4 Heart Rate 1: 84 bpm Height: 5'7" Respiratory Rate: 20 bpm SpO2: 95% Tempera ture: 36.7 (C) / 98.1 (F) Weight: 223 lbs 08/13/2017 Blood Pressure 1: 142/94 Code: 8480-6 BMI: 34.5 Code: 77064-7 Heart Rate 1: 76 bpm Height: 5'7" Respiratory Rate: 20 bpm SpO2: 96% Tempera ture: 37.1 (C) / 98.8 (F) Weight: 220 lbs 11/17/2016 Blood Pressure 1: 118/78 Code: 8480-6 art Rate 1: 64 bpm 07/19/2016 Blood Pressure 1: 112/58 Code: 8480-6 BMI: 31.6 Code: 45915-6 Heart Rate 1: 88 bpm Height: 5'7" Respiratory Rate: 22 bpm SpO2: 98% Tempera ture: 36.3 (C) / 97.4 (F) Weight: 202 lbs 06/09/2016 Blood Pressure 1: 138/84 Code: 8480-6 BMI: 32.1 Code: 36755-8 Heart Rate 1: 58 bpm Height: 5'7" Respiratory Rate: 20 bpm SpO2: 97% Tempera ture: 36.6 (C) / 97.8 (F) Weight: 205 lbs 11/08/2015 Blood Pressure 1: 142/80 Code: 8480-6 BMI: 32.4 Code: 35255-3 Heart Rate 1: 76 bpm Height: 5'7" Respiratory Rate: 20 bpm Temperature: 36 .6 (C) / 97.9 (F) Weight: 207 lbs 06/14/2015 Blood Pressure 1: 126/80 Code: 8480-6 Heart Rate 1: 84 bpm Respiratory Rate: 20 bpm Temperature: 36.8 (C) / 98.2 (F) Weight: 206 lbs 05/18/2015 Blood Pressure 1: 124/80 Code: 8480-6 BMI: 32.3 Code: 04658-8 Heart Rate 1: 68 bpm Height: 5'7" Respiratory Rate: 20 bpm Temperature: 36 .4 (C) / 97.6 (F) Weight: 206 lbs 02/22/2015 Blood Pressure 1: 126/78 Code: 8480-6 BMI: 32.1 Code: 01913-1 Heart Rate 1: 76 bpm Height: 5'7" Respiratory Rate: 20 bpm Temperature: 36 .6 (C) / 97.9 (F) Weight: 205 lbs 12/02/2014 Blood Pressure 1: 124/80 Code: 8480-6 BMI: 32.7 Code: 12815-5 Heart Rate 1: 70 bpm Height: 5'7" Respiratory Rate: 18 bpm Temperature: 36 .6 (C) / 97.9 (F) Weight: 209 lbs 08/18/2014 Blood Pressure 1: 132/94 Code: 8480-6 BMI: 34.5 Code: 19754-2 Heart Rate 1: 84 bpm Height: 5'6" Respiratory Rate: 20 bpm Temperature: 36 .6 (C) / 97.9 (F) Weight: 217 lbs 07/08/2014 Blood Pressure 1: 142/88 Code: 8480-6 BMI: 34.3 Code: 17610-0 Heart Rate 1: 72 bpm Height: 5'6" [...] R10.2] Diagnosis: Aortic regurgitation[ICD10: I35.1] Sapna LIVE [employer] CPT-4: 76153 10/02/2019 ([id number]) OFFICE/OUTPATIENT VISIT EST Diagnosis: Chest pain[ICD10: R07.9] Lashell Joe SAPNA BILLINGS [facility] CPT-4: 45936 08/25/2019 ([id number]) OFFICE/OUTPATIENT VISIT EST Diagnosis: Thoracic back pain[ICD10: M54.6] Diagnosis: Disorder of kidney and ureter, unspecified[ICD10: N28.9] Diagnosis: Personal history of nicotine dependence[ICD10: Z87.891] 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] Lashell AU DO [facility] CPT-4: 18388 08/13/2019 ([id number]) OFFICE/OUTPATIENT VISIT EST Diagnosis: Sigmoid diverticulitis[ICD10: K57.32] Diagnosis: Renal insufficiency[ICD10: N28.9] Diagnosis: Jock itch[ICD10: B35.6] Sapna PARDO DO [facility] CPT-4: 51335 07/03/2019 ([id number]) OFFICE/OUTPATIENT VISIT EST Diagnosis: Cramp and spasm[ICD10: R25.2] Diagnosis: Disorder of kidney and ureter, unspecified[ICD10: N28.9] Lashell LIVE DO [facility] CPT-4: 46928 06/05/2019 ([id number]) OFFICE/OUTPATIENT VISIT EST Diagnosis: Other pruritus[ICD10: L29.8] Diagnosis: Pain in right knee[ICD10: M25.561] Lashell LIVE [employer] [facility] CPT-4: 82511 05/21/2019 ([id number]) NURSE/OUTPATIENT VISIT EST Diagnosis: Edema, unspecified[ICD10: R60.9] Sapna LIVE DO [facility] CPT-4: 75588 04/21/2019 ([id number]) OFFICE/OUTPATIENT VISIT EST Diagnosis: Diverticulitis of large intestine without perforation or abscess without bleeding[ICD10: K57.32] Diagnosis: Snoring[ICD10: R06.83] Diagnosis: Other constipation[ICD10: K59.09] Lashell LIVE DO [facility] CPT-4: 44153 02/24/2019 ([id number]) OFFICE/OUTPATIENT VISIT EST Diagnosis: Diverticulitis of large intestine without perforation or abscess with bleeding[ICD10: K57.33] Nancy CORRAL Vickie LIVE [employer] [facility] CPT-4: 99528 02/04/2019 ([id number]) OFFICE/OUTPATIENT VISIT EST Diagnosis: Left lower quadrant pain[ICD10: R10.32] Nancy LORA JefryAmarjit BUZZ MARIE [facility] CPT-4: 12152 01/29/2019 OFFICE/OUTPATIENT VISIT EST Diagnosis: Dermatitis, unspecified[ICD10: L30.9] Diagnosis: Gastro-esophageal reflux disease without esophagitis[ICD10: K21.9] Diagnosis: Palpitations[ICD10: R00.2] Sapna AU [facility] CPT-4: 68096 12/19/2018 ([id number]) OFFICE/OUTPATIENT VISIT EST Diagnosis: Gastro-esophageal reflux disease without esophagitis[ICD10: K21.9] Diagnosis: Dysphagia, pharyngoesophageal phase[ICD10: R13.14] Sapna LIVE DO [facility] CPT-4: 62610 11/11/2018 ([id number]) PREV VISIT EST AGE 40-64 Diagnosis: Encounter [...] disorders of digestive system[ICD10: K91.89] Lashell LIVE [employer] [facility] CPT-4: 99 396 10/09/2018 ([id number]) OFFICE/OUTPATIENT VISIT EST Diagnosis: Pain in right knee[ICD10: M25.561] Diagnosis: Pain in right hip[ICD10: M25.551] Lashell LIVE [employer] [facility] CPT-4: 54780 02/12/2018 OFFICE/OUTPATIENT VISIT EST Diagnosis: Essential (primary) hypertension[ICD10: I10] Diagnosis: Other chest pain[ICD10: R07.89] Lashell LIVE [employer] [facility] CPT-4: 07590 12/03/2017 ([id number]) OFFICE/OUTPATIENT VISIT EST Diagnosis: Essential (primary) hypertension[ICD10: I10] Sapna LIVE [facility] CPT-4: 92475 09/11/2017 ([id number]) PREV VISIT EST AGE 40-64 Diagnosis: Encounter for general adult medical examination without abnormal findings[ICD10: Z00.00] Diagnosis: Essential (primary) hypertension[ICD10: I10] Diagnosis: Left lower quadrant pain[ICD10: R10.32] Diagnosis: Left upper quadrant pain[ICD10: R10.12] Diagnosis: Other intervertebral disc degeneration, 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] Sapna LIVE [employer] [facility] CPT-4: 36414 08/13/2017 ([id number]) OFFICE/OUTPATIENT VISIT EST Diagnosis: Acute pharyngitis, unspecified[ICD10: J02.9] Sapna LIVE [facility] CPT-4: 46699 02/13/2017 ([id number]) PREV VISIT EST AGE 40-64 Diagnosis: Encounter for general adult medical examination without abnormal findings[ICD10: Z00.00] Diagnosis: Essential (primary) hypertension[ICD10: I10] 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] Sapna CappsAmarjit BUZZ [facility] CPT-4: 61866 07/19/2016 OFFICE/OUTPATIENT VISIT EST Diagnosis: Pain in thoracic spine[ICD10: M54.6] Diagnosis: Disorder of the skin and subcutaneous tissue, unspecified[ICD10: L98.9] Sobia Monreal SAPNA JefryAmarjit BUZZ [facility] CPT-4: 90733 06/09/2016 OFFICE/OUTPATIENT VISIT EST Diagnosis: Retention of urine, unspecified[ICD10: R33.9] Diagnosis: Urinary tract infection, site not specified[ICD10: N39.0] Chelsie Teixeira SAPNA JefryAmarjit BUZZ [facility] CPT-4: 52004 11/08/2015 ([id number]) OFFICE/OUTPATIENT VISIT EST Diagnosis: DERMATITIS NOS[ICD9: 692.9] Diagnosis: SEBACEOUS CYST[ICD9: 706.2] Sapna Rosagustabo SAPNA Johnston Claudio DANITZA [facility] CPT-4: 33246 06/14/2015 OFFICE/OUTPATIENT VISIT EST Diagnosis: LOCAL SKIN INFECTION[ICD9: 686.9] Diagnosis: FOLLICULITIS[ICD9: 704.8] Chelsie HASSAN [facility] CPT-4: 56742 05/18/2015 ([id number]) OFFICE/OUTPATIENT VISIT EST Diagnosis: Constipation[ICD9: 564.00] Sapna AU [facility] CPT-4: 48864 02/22/2015 ([id number]) OFFICE/OUTPATIENT VISIT EST Diagnosis: Thoracic back pain[ICD9: 724.1] Diagnosis: Thoracic degenerative disc disease[ICD9: 722.51] Diagnosis: Scoliosis[ICD9: 737.30] Sapna PARDO [facility] CPT-4: 29384 12/02/2014 ([id number]) OFFICE/OUTPATIENT VISIT EST Diagnosis: Thoracic back pain[ICD9: 724.1] Diagnosis: ACTINIC KERATOSIS[ICD9: 702.0] Sapna LIVE [facility] CPT-4: 55265 08/18/2014 OFFICE/OUTPATIENT VISIT NEW Diagnosis: HYPERTENSION[ICD9: 401.9] Diagnosis: Thoracic back pain[ICD9: 724.1] Diagnosis: GERD[ICD9: 530.81] Diagnosis: Adrenal tumor[ICD9: 239.7] Sapna AU [facility] CPT-4: 25534 07/08/2014 ([id number]) OFFICE/OUTPATIENT VISIT NEW Diagnosis: HYPERTENSION[ICD9: 401.9] Diagnosis: GERD[ICD9: 530.81] Sapna LIVE DO [facility] CPT-4: 44185 07/08/2014 Plan of Care Planned Activity Notes [...] Care Plan: Referral Order SNOMED-CT : 30 [id number] Pending 10/02/2019 Visit Diagnosis Plan: Chest pain Discussion: will star t with cxray and rib xray. discussed that could be lung, rib, muscle but will start with cxray and patient may need echo. he verbalized understanding. ICD-9 : 786.50 ICD-10 : R07.9 08/25/2019 Appointment: Lashell Joe [facility] [employer] [id number] ACUTE ILLNESS 08/25/2019 Visit Diagnosis Plan: Adrenal [...] pain. will refer to dr. stall[facility] at [facility] for evaluation and treatment ICD-9 : 724.1 [...] : N28.9 08/13/2019 Appointment: Lashell Joe [address] [employer] [id number] FOLLOW UP 08/13/2019 Visit Diagnosis Plan: Renal insufficiency Discussion: Labs discussed Continue off NSAIDS Hydrate Recheck Chemistry 3mos ICD-9 : 593.9 ICD-10 : N28.9 07/03/2019 Visit Diagnosis Plan: Sigmoid diverticulitis Discussio n: Bactrim/Flagyl [place] diet To ER this weekend if worsening ICD-9 : 562.11 ICD-10 : K57.32 07/03/2019 Visit Diagnosis Plan: Jock itch Discussion: Diflucan a nd topical nystatin ICD-9 : 110.3 ICD-10 : B35.6 07/03/2019 Appointment: Sapna Live WPtel: [phone] [facility] FOLLOW UP 07/03/2019 Patient Education: fluconazole- [employer] C[employer]on [id number] Completed 07/03/2019 Patient Education: nystatin- [employer] C[employer]on [id number] Completed 07/03/2019 Visit Diagnosis Plan: Disorder of [...] ICD-10 : R25.2 06/05/2019 Appointment: Lashell Joe [address] [place], [place] [id number] NO SHOW - FORGIVEN 06/05/2019 Appointment: Lashell Joe [address] [place], [place] [phone] ACUTE ILLNESS 06/05/2019 Visit Diagnosis Plan: Other [...] ICD-10 : M25.561 05/21/2019 Appointment: Lashell Joe [address] [place] [address] ACUTE ILLNESS 05/21/2019 Patient Education: hydroxyzine HCl- [employer] Coupon [id number] [email or web address] Completed 05/21/2019 Appointment: Sapna Live WPtel: [address] [place] [address] 05/19/19 1645---see note put in chart today (km) CANCELED 05/19/2019 Appointment: Sapna Live WPtel: [address] [place] [address] CANCELED 05/05/2019 Appointment: Sapna Live WPtel: [address] [place] [address] UA 04/21/2019 Visit Diagnosis Plan: Snoring Discussion: [...] : K59.09 02/24/2019 [facility] [facility] 02/24/2019 Visit Diagnosis Plan: Diverticulitis of large intestine without perforation or abscess with bleeding Discussion: Continue flagyl and cipro. A dvance diet to bland. BRAT diet advised. Avoid nuts, seeds, popcorn, roughage. RTC if abdominal pain worsens or does not improve. ICD-9 : 562.13 ICD-10 : K57.33 02/04/2019 Appointment: Nancy Mendiola [facility] FOLLOW UP 02/04/2019 Visit Diagnosis Plan: Left [...] ICD-10 : R10.32 01/29/2019 Appointment: Nancy Mendiola [facility] ACUTE ILLNESS 01/29/2019 Care Plan: CT PELVIS [...] L30.9 12/19/2018 [facility]ment[phone] [facility] [facility] 12/19/2018 Visit Diagnosis Plan: Gastro-esophageal reflux disease without esophagitis Discussion: Continue protonix at 40mg daily Hold mobic No NSAIDS Hold all MVs If persists then will need EGD ICD-9 : 530.81 ICD-10 : K21.9 11/11/2018 Appointment: Sapna Live [facility]Ptel[phone] [facility] [facility] 11/11/2018 Visit Diagnosis Plan: Encounter for [facility] adult medical examination without abnormal [...] Discussion: increase gabapentin to 600 mg at . 300 mg had worked initially for a [...] ICD-10 : Z12.2 10/09/2018 Appointment: Lashell Joe [address] [place], [place] [phone] Annual Well Visit 10/09/2018 Patient Education: gabapentin- [employer] Coupon [id number] Completed 10/09/2018 Patient Education: Kegel Exercises Comple catalina 10/09/2018 Patient Education: High Blood Pressure Co mpleted 10/09/2018 Visit Diagnosis Plan: Pain in right knee Discussion: c orticosteroid injection administered as described above. patient tolerated well. instructed to rtc in 3- 4 months if needed for additional injection. ICD-9 : 719.46 ICD-10 : M25.561 02/19/2018 Appointment: Lashell Joe [address] [place], [place] [address] OFFICE SURGERY 02/19/2018 Patient Education: Patient Medication [...] ICD-10 : M25.561 02/12/2018 Appointment: Lashell Joe [address] [place], [place] [address] [place] [phone] ACUTE ILLNESS 02/12/2018 Patient Education: Patient Medication Summary Completed 02/12/2018 Care Plan: X-RAY EXAM OF KNEE 1 [place] 2 [place] : [address]-3 Pending 02/12/2018 Visit Diagnosis Plan: Other chest [...] ICD-10 : I10 12/03/2017 Appointment: Lashell Joe [address] [place] [address] ESTABLISHED PATIENT 12/03/2017 Patient Education: Patient Medication Summary Completed 12/03/2017 Visit Diagnosis Plan: Essential (primary) hypertension Discussion: Increase quinapril to 40mg daily BP check in 1month ICD-9 : 401.9 ICD-10 : I10 09/11/2017 Appointment: Sapna Live WPtel: [address] [place] [address] FOLLOW UP 09/11/2017 Patient Education: Patient Medication Summary Completed 09/11/2017 Appointment: Sapna Livetel: [address] [place] [address] RESCHEDULED 08/22/2017 Visit Diagnosis Plan: Left lower quadrant pain Discuss ion: Update colonoscopy ICD-9 : 789.04 ICD-10 : R10.32 08/13/2017 Visit Diagnosis Plan: Essential (primary) hypertension Discussion: Increase quinapril to 20mg daily Follow Up: 1 months ICD-9 : 401.9 ICD-10 : I10 08/13/2017 Visit Diagnosis Plan: Encounter for [facility] adult medical examination without abnormal findings Discussion: Update fasting lab ICD-9 : V70.9 ICD-10 : Z00.00 08/13/2017 Appointment: Sapna Live WPtel: [address] [place] [address] Annual Well Visit 08/13/2017 Patient Education: Patient Medication Summary Completed 08/13/2017 Appointment: Sapna Live WPtel: [address] [place], [place] [phone] THROAT SWAB 02/13/2017 Patient Education: Patient Medication Summary Completed 02/13/2017 Appointment: Sapna Live WPtel: [phone] [facility] BP CHECK 11/17/2016 Patient Education: Patient Medication Summary Completed 11/17/2016 Visit Plan: Due for colonoscopy in 2018 Had shingles shot and flu shot Change quinapril hct to plain quinapril and see if muscles twitches improve Fwup with Dr. Braga Lab discussed Discussed diet/exercise at length Check CT abdomen Recheck 3mos 07/19/2016 Appointment: Sapna Live WPtel: [facility] [place]note 2[place]0 [place] [id number] 07/18 confirmed`sl PHYSICAL 07/19/2016 Patient Education: [...] convenience 06/09/2016 Appointment: Sobia Monreal WPtel: [address] [place], [place] [phone] ACUTE ILLNESS 06/09/2016 Patient Education: Patient Medication Summary Completed 06/09/2016 Referral: Demario Braga WPtel: [facility] [place] [address] [place] Referral Initiated 11/12/2015 Visit Plan: Continue indwelling catheter until follow-up with Dr. Braga Continue Bactrim and Cipro Pyridium TID for Bladder spasms 11/08/2015 Appointment: Chelsie Teixeiratel: [address] [place], [place] [phone] ER Follow UP 11/08/2015 Patient Education: Patient Medication Summary Completed 11/08/2015 Referral: Abdiel Tucker WPtel: [phone] [facility] [place] Referral Initiated 06/21/2015 Visit Plan: Prednisone 20mg daily for 1w [place] See surgery of cyst removal 06/14/2015 Appointment: Sapna Live WPtel: [address] [place], [place] [phone] [place] 06/11 cn 06/14 cn FOLLOW UP 2014 Patient Education: Patient Medication Summary Completed 06/14/2015 Visit Plan: Warm moist compresses to Lef t shoulder lesion and apply topical Mupirocin twice daily Complete Cephalexin x 7 days as directed Resume Culturelle daily 05/18/2015 Appointment: Chelsie Teixeira WPtel: [address] [place], [place] [phone] ACUTE ILLNESS 05/18/2015 Patient Education: Patient Medication Summary Completed 05/18/2015 Visit Plan: Check fasting lab Use pain m eds prn with miralax on the day that takes pain meds 02/22/2015 Appointment: Sapna Live WPtel: [address] [place], [place] [phone] 02/19 [facility] 02/19 appt confirmed-lb ACUTE ILLNESS 5 Patient Education: Patient Medication Summary Completed 02/22/2015 Visit Plan: Increase neurontin to 300mg q HS Continue flexeril and tramadol Call in 1mo on how higher dose of gabapentin 12/02/2014 Appointment: Sapna Live WPtel: [address] [place], [place] [address] [place] FOLLOW UP 12/02/2014 Patient Education: Patient Medication Summary Completed 12/02/2014 Referral: Eric Angelo WPtel: [address] [facility] [place] Referral Appointment Confirmed 09/15/2014 Visit Plan: Proceed with pain doctor for possible injection vs nerve block Trial of lidoderm patch Cryotherapy to lesions as above 08/18/2014 Appointment: Sapna Live WPtel: [phone] ACUTE ILLNESS 08/18/2014 Patient Education: Patient Medication Summary Completed 08/18/2014 Patient Education: Patient Medication Summary Completed 08/13/2014 Visit Plan: Continue current meds Obtain most recent lab results Check thoracic spine x-rays Needs updated CT scan of adrenal tumor 07/08/2014 Appointment: Sapna Live WPtel: [phone] 07/07 vm NEW PATIENT 07/08/2014 Patient Education: Patient Medication Summary Completed 07/08/2014 Patient Education: Patient Medication Summary Completed 07/08/2014 Referral: Suhail Cardenas WPtel: [phone] [place] [address] [place] Referral Completed Referral: Toby Bettencourt WPtel: [address] [place] [address] [place] [address] [place] Referral Completed Referral: Rosario Monahan WPtel: [phone] [facility] C [place] Referral Appointment Requested Instructions [...]
--- OUTSIDE RECORDS SUMMARY | 2020-02-05 08:00 | XMS REPORT | CCD ---
Author Author Jai Live D.O. Organization [facility] Address [address] [place] [address] Phone Care Team Providers Care Green End Man Name Role Phone Sapna Live D.O., PP Unavailable CCM Unavailable Summary Purpose Interface Exchange Insurance Providers Payer name Policy type / Coverage type Covered green party ID Effective Begin Date Effective End Date GPA Commercial Insurance [id number] 2018 Unknown Family history Mother Diagnosis Age At Onset Cancer Unknown Father Diagnosis Age At Onset Congestive heart failure Unknown Coronary Artery Disease(CAD) Unknown Social History Social History Element Codes Description Effective Dates Tobacco history SNOMED CT: 4880290 Former smoker 10/09/2018 Marital status Unknown 07/08/2014 Number of children Unknown 1 07/08/2014 Employment Unknown Currently employed [employer] 07/08/[address]: 905201437 Never drinks alcohol 2013 Has the patient [...] Problems Condition Codes Effective Dates Condition Status Chest pain ICD-9: 786.50 ICD-10: R07.9 08/25/2019 [...] Fill Instructions tramadol 50 mg tablet RxNorm: 437460 1 Tablet(s) Oral t hree times a day as needed for pain along with two tylenol 09/29/2019 No Stop Date Active quinapril 40 mg tablet RxNorm: 833581 1 Tablet(s) Oral QD 09/18/2019 03/15/2020 Active Patient requests 90 days supply tramadol 50 mg tablet RxNorm: 296365 1 Tablet(s) Oral t hree times a day as needed for pain along with two tylenol 08/28/2019 08/28/2019 Inactive tramadol 50 mg tablet RxNorm: 317799 1 Tablet(s) PO TID as needed for pain along with two tylenol 08/25/2019 08/27/2019 Inactive pantoprazole 40 mg tablet,delayed release RxNorm: 000029 1 Tabl et(s) Oral QD 08/13/2019 No Stop Date Active Vitamin D3 1,000 unit capsule RxNorm: 626445 1 Capsule(s) Oral QD 1 10/13/2018 No Stop Date Active tamsulosin 0.4 mg capsule RxNorm: 176308 1 Capsule(s) Oral QPM 07/26 No Stop Date Active Protonix 40 mg tablet,delayed release RxNorm: 138983 TA KE 1 TABLET BY MOUTH TWICE A DAY 08/04/2019 08/12/2019 Inactive Flagyl 500 mg tablet RxNorm: 878470 1 Tablet(s) Oral three time s a day 07/03/2019 07/13/2019 Inactive fluconazole 100 mg tablet RxNorm: 882876 1 Tablet(s) Oral QD 201807/10/2019 Inactive Bactrim DS 800 mg-160 mg tablet RxNorm: 285380 1 Tablet(s) Oral two times a day 07/03/2019 07/13/2019 Inactive nystatin 100,000 unit/gram topical cream RxNorm: 754038 Application Topical two times a day 07/03/2019 08/12/2019 Inactive gabapentin 600 mg tablet RxNorm: 222400 Tablet(s) TAKE 1 TABLET BY MOUTH EVERY NIGHT AT BEDTIME 06/25/2019 08/12/2019 Inactive - First Attempt Ref: [id number] quinapril 40 mg tablet RxNorm: 943686 1 Tablet(s) Oral QD 06/23/2019 09/17/2019 Inactive Patient requests 90 days supply tramadol 50 mg tablet RxNorm: 691068 1 Tablet(s) PO TID as needed for pain along with two tylenol 05/23/2019 08/24/2019 Inactive hydroxyzine HCl 25 mg tablet RxNorm: 378314 1 Tablet(s) PO TID as needed 05/21/2019 08/12/2019 Inactive Elimite 5 % topical cream RxNorm: 898672 1 Application TOP QHS apply head to toe and was off in morning 05/19/2019 07/02/2019 Inactive Protonix 40 mg tablet,delayed release RxNorm: 664359 1 Tablet(s ) PO BID 05/05/2019 08/02/2019 Inactive - First Attempt Ref: [id number] gabapentin 600 mg tablet RxNorm: 668742 Tablet(s) TAKE 1 TABLET BY MOUTH EVERY NIGHT AT BEDTIME 04/25/2019 06/24/2019 Inactive - First Attempt Ref: [id number] tramadol 50 mg tablet RxNorm: 243474 1 Tablet(s) PO TID as needed for pain along with two tylenol 04/21/2019 05/22/2019 Inactive quinapril 40 mg tablet RxNorm: 851755 1 Tablet(s) PO QD 04/01/2019 Inactive Patient requests 90 days supply fenofibrate micronized 134 mg capsule RxNorm: 070812 1 Capsule(s) PO QD Due for updated fasting labs 03/31/2019 08/12/2019 Inactive dicyclomine 10 mg capsule RxNorm: 184299 1 Capsule(s) PO TID as needed 02/24/2019 05/20/2019 Inactive Flagyl 500 mg tablet RxNorm: 823154 1 Tablet(s) PO Q8H 02/24/201908/2019 Inactive ciprofloxacin 500 mg tablet RxNorm: 620495 1 Tablet(s) PO BID 02/2403/09/2019 Inactive Flagyl 500 mg tablet RxNorm: 722525 1 Tablet(s) PO Q6H 01/30/2019 Inactive ciprofloxacin 500 mg tablet RxNorm: 783499 1 Tablet(s) PO BID 01/3001/29/2019 Inactive Flagyl 500 mg tablet RxNorm: 127093 1 Tablet(s) PO Q6H 01/30/201904/2019 Inactive ciprofloxacin 500 mg tablet RxNorm: 360109 1 Tablet(s) PO BID 01/3002/05/2019 Inactive gabapentin 600 mg tablet RxNorm: 782960 TAKE 1 TABLET B Y MOUTH EVERY NIGHT AT BEDTIME 01/27/2019 04/24/2019 Inactive - First Attempt Ref: [id number] tramadol 50 mg tablet RxNorm: 915649 1 Tablet(s) PO TID as needed for pain along with two tylenol 01/08/2019 04/20/2019 Inactive fenofibrate micronized 134 mg capsule RxNorm: 531362 1 Capsule(s) PO QD Due for updated fasting labs 01/02/2019 03/30/2019 Inactive quinapril 40 mg tablet RxNorm: 310098 1 Tablet(s) PO QD 01/01/2019 Inactive Patient requests 90 days supply Protonix 40 mg tablet,delayed release RxNorm: 449263 TA KE 1 TABLET BY MOUTH TWICE A DAY 01/01/2019 03/31/2019 Inactive - First Attempt Ref: [id number] Protonix 40 mg tablet,delayed release RxNorm: 260329 TA KE 1 TABLET BY MOUTH TWICE A DAY 12/25/2018 12/31/2018 Inactive - First Attempt Ref: [id number] gabapentin 600 mg tablet RxNorm: 768727 TAKE 1 TABLET B Y MOUTH EVERY NIGHT AT BEDTIME 12/02/2018 01/26/2019 Inactive - First Attempt Ref: [id number] Protonix 40 mg tablet,delayed release RxNorm: 171679 1 Tablet(s ) PO BID 11/11/2018 12/24/2018 Inactive Protonix 40 mg tablet,delayed release RxNorm: 930352 1 Tablet(s ) PO BID 10/09/2018 11/10/2018 Inactive gabapentin 600 mg tablet RxNorm: 593034 1 Tablet(s) PO QHS 10/09/1912/01/2018 Inactive quinapril 40 mg tablet RxNorm: 479560 1 Tablet(s) PO QD 1 TABLE T(S) PO QD 08/08/2018 08/07/2018 Inactive Patient requests 9 0 days supply quinapril 40 mg tablet RxNorm: 726657 1 Tablet(s) PO QD 08/08/2018 Inactive Patient requests 90 days supply meloxicam 15 mg tablet RxNorm: 394143 1 Tablet(s) PO QD 08/08/2018 Inactive gabapentin 300 mg capsule RxNorm: 765127 1 CAPSULE(S) P O QHS DUE FOR WELLNESS VISIT 08/07/2018 10/08/2018 Inactive due for followup meloxicam 15 mg tablet RxNorm: 112154 Tablet(s) 1 TABLET(S) PO QD 1 10/07/2017 08/07/2018 Inactive fenofibrate micronized 134 mg capsule RxNorm: 228618 1 Capsule(s) PO QD Needs updated fasting labs!!!!!! 07/08/2018 07/07/2018 Inactive fenofibrate micronized 134 mg capsule RxNorm: 247770 1 Capsule( s) PO QD 07/08/2018 01/01/2019 Inactive fenofibrate micronized 134 mg capsule RxNorm: 417507 1 Capsule(s) PO QD Needs updated fasting labs!!!!!! 06/21/2018 07/08/2018 Inactive Medrol (Daniel) 4 mg tablets in a dose pack RxNorm: 577855 Tablet(s) PO As Directed 05/06/2018 05/05/2018 Inactive Medrol (Daniel) 4 mg tablets in a dose pack RxNorm: 570624 Tablet(s) PO As Directed 05/06/2018 08/07/2018 Inactive quinapril 40 mg tablet RxNorm: 316087 1 TABLET(S) PO QD 05/02/2018 Inactive Patient requests 90 days supply fenofibrate micronized 134 mg capsule RxNorm: 401198 1 Capsule(s) PO QD Needs updated fasting labs 04/29/2018 05/28/2018 Inactive Move [facility] 750 mg-100 mg-1.65 mg-108 mg tablet R xNorm: 1 Tablet(s) PO QD 02/12/2018 03/13/2018 Inactive fenofibrate micronized 134 mg capsule RxNorm: 867785 Ca psule(s) 1 CAPSULE(S) PO QD 01/29/2018 06/21/2018 Inactive quinapril 40 mg tablet RxNorm: 026261 1 TABLET(S) PO QD 11/26/2017 Inactive Patient requests 90 days supply fenofibrate micronized 134 mg capsule RxNorm: 353443 1 CAPSULE( S) PO QD 11/06/2017 01/29/2018 Inactive gabapentin 300 mg capsule RxNorm: 475672 1 CAPSULE(S) P O QHS DUE FOR WELLNESS VISIT 10/24/2017 07/20/2018 Inactive due for followup meloxicam 15 mg tablet RxNorm: 846390 1 TABLET(S) PO QD 10/24/2017 Inactive quinapril 40 mg tablet RxNorm: 384625 1 Tablet(s) PO QD 10/24/2017 Inactive fenofibrate micronized 134 mg capsule RxNorm: 172080 1 Capsule( s) PO QD 08/22/2017 11/05/2017 Inactive fenofibrate micronized 134 mg capsule RxNorm: 858523 1 Capsule( s) PO QD 08/22/2017 08/21/2017 Inactive quinapril 20 mg tablet RxNorm: 953312 1 Tablet(s) PO QD 08/13/2017 Inactive gabapentin 300 mg capsule RxNorm: 666455 1 Capsule(s) P O QHS Due for wellness visit 08/06/2017 10/23/2017 Inactive due for followup gabapentin 300 mg capsule RxNorm: 269134 1 Capsule(s) P O QHS Due for wellness visit 08/02/2017 08/05/2017 Inactive due for followup meloxicam 15 mg tablet RxNorm: 593139 1 Tablet(s) PO QD 08/01/2017 Inactive gabapentin 300 mg capsule RxNorm: 222874 1 Capsule(s) P O QHS Due for wellness visit 08/01/2017 08/01/2017 Inactive due for followup gabapentin 300 mg capsule RxNorm: 657831 1 Capsule(s) P O QHS Due for wellness visit 08/01/2017 08/02/2017 Inactive gabapentin 300 mg capsule RxNorm: 593349 1 Capsule(s) PO QHS 201605/12/2017 Inactive quinapril 10 mg tablet RxNorm: 173506 1 Tablet(s) PO QD replace s quinapril hct 02/12/2017 08/12/2017 Inactive meloxicam 15 mg tablet RxNorm: 965835 1 Tablet(s) PO QD 02/05/2017 Inactive quinapril 10 mg tablet RxNorm: 334526 1 Tablet(s) PO QD replace s quinapril hct 11/16/2016 02/12/2017 Inactive gabapentin 300 mg capsule RxNorm: 627466 1 Capsule(s) PO QHS 201602/12/2017 Inactive quinapril 10 mg tablet RxNorm: 245856 1 Tablet(s) PO QD replace s quinapril hct 10/16/2016 11/15/2016 Inactive gabapentin 300 mg capsule RxNorm: 440989 1 Capsule(s) PO QHS 201511/15/2016 Inactive quinapril 10 mg tablet RxNorm: 390315 1 Tablet(s) PO QD replace s quinapril hct 07/19/2016 10/15/2016 Inactive meloxicam 15 mg tablet RxNorm: 926076 1 Tablet(s) PO QD 07/10/2016 Inactive meloxicam 15 mg tablet RxNorm: 446918 TAKE ONE TABLET BY MOUTH LUKE Y 07/10/2016 07/09/2016 Inactive meloxicam 15 mg tablet RxNorm: 332937 1 Tablet(s) PO QD 07/06/2016 Inactive meloxicam 15 mg tablet RxNorm: 354964 1 Tablet(s) PO QD 06/09/2016 Inactive Multivitamin & Mineral Formula tablet RxNorm: 1 Tablet(s) PO Q D 06/02/2016 07/01/2016 Inactive tamsulosin 0.4 mg capsule RxNorm: 348431 1 Capsule(s) PO QHS 201507/01/2016 Inactive Move [facility] Joint Health 750 mg-100 mg-1.65 mg-108 mg tablet R xNorm: 1 Tablet(s) PO QD 06/02/2016 07/01/2016 Inactive gabapentin 300 mg capsule RxNorm: 480305 1 Capsule(s) PO QHS 201508/27/2016 Inactive gabapentin 300 mg capsule RxNorm: 107255 Capsule(s) ALFONZO E ONE CAPSULE BY MOUTH AT BEDTIME 02/28/2016 05/27/2016 Inactive quinapril 10 mg-hydrochlorothiazide 12.5 mg tablet RxNorm: 3 51727 Tablet(s) TAKE ONE TABLET BY MOUTH EVERY MORNING 01/14/2016 07/18/2016 Inactive gabapentin 300 mg capsule RxNorm: 908283 TAKE ONE CAPSULE BY MO [facility] AT BEDTIME 12/28/2015 02/27/2016 Inactive Urecholine 25 mg tablet RxNorm: 119515 1 Tablet(s) PO TID 11/09/2015 07/18/2016 Inactive phenazopyridine 100 mg tablet RxNorm: 9808977 1 Tablet(s ) PO TID as needed for bladder spasms. 11/08/2015 11/08/2015 Inactive quinapril 10 mg-hydrochlorothiazide 12.5 mg tablet RxNorm: 3 19471 TAKE ONE TABLET BY MOUTH EVERY MORNING 10/15/2015 01/13/2016 Inactive gabapentin 300 mg capsule RxNorm: 024624 1 Tablet(s) PO QD TAKE ONE CAPSULE BY MOUTH EVERY NIGHT AT BEDTIME 09/23/2015 12/21/2015 Inactive quinapril 10 mg-hydrochlorothiazide 12.5 mg tablet RxNorm: 3 27974 Tablet(s) TAKE ONE TABLET BY MOUTH EVERY MORNING 07/14/2015 10/14/2015 Inactive gabapentin 300 mg capsule RxNorm: 254635 1 Tablet(s) PO QD TAKE ONE CAPSULE BY MOUTH EVERY NIGHT AT BEDTIME 06/25/2015 09/23/2015 Inactive prednisone 20 mg tablet RxNorm: 122680 1 Tablet(s) PO QD 06/14/2015 0 06/20/2015 Inactive cephalexin 500 mg capsule RxNorm: 524613 1 Capsule(s) PO BID 201405/27/2015 Inactive mupirocin 2 % topical ointment RxNorm: 134374 TOP BID 05/18/2015 0 06/13/2015 Inactive quinapril 10 mg-hydrochlorothiazide 12.5 mg tablet RxNorm: 3 60722 Tablet(s) TAKE ONE TABLET BY MOUTH EVERY MORNING 04/06/2015 07/14/2015 Inactive gabapentin 300 mg capsule RxNorm: 910247 1 Capsule(s) PO QHS 201404/01/2015 Inactive [SAVINGS FOR NON-COVERED LILIANA GS -- BIN:833850, PCN: ASPROD1, Group: XXXXX, ID# [id number], Questions: . THIS IS NOT INSURANCE.] gabapentin 300 mg capsule RxNorm: 872521 1 Capsule(s) PO QHS 201406/25/2015 Inactive [SAVINGS FOR NON-COVERED LILIANA GS -- BIN:697316, PCN: ASPROD1, Group: XXXXX, ID# [id number], Questions: . THIS IS NOT INSURANCE.] quinapril 10 mg-hydrochlorothiazide 12.5 mg tablet RxNorm: 3 37882 TAKE ONE TABLET BY MOUTH EVERY MORNING 12/11/2014 04/05/2015 Inactive gabapentin 300 mg capsule RxNorm: 740728 1 Capsule(s) PO QHS 201404/02/2015 Inactive [SAVINGS FOR NON-COVERED LILIANA GS -- BIN:079289, PCN: ASPROD1, Group: XXXXX, ID# [id number], Questions: . THIS IS NOT INSURANCE.] cyclobenzaprine 10 mg tablet RxNorm: 646693 1 Tablet(s) PO TID as needed for muscle spasm for muscle spasm 12/02/2014 02/21/2015 Inactive [S AVINGS FOR NON- COVERED DRUGS -- BIN:595105, PCN: ASPROD1, Group: XXXXX, ID# [id number], Questions: . THIS IS NOT INSURANCE.] gabapentin 100 mg capsule RxNorm: 361737 1 Capsule(s) PO QHS 201412/01/2014 Inactive [SAVINGS FOR NON-COVERED LILIANA GS -- BIN:853410, PCN: ASPROD1, Group: XXXXX, ID# [id number], Questions: . THIS IS NOT INSURANCE.] ibuprofen 800 mg tablet RxNorm: 944616 1 Tablet(s) PO T ID as needed low back pain 11/11/2014 11/23/2014 Inactive [SAVINGS FOR NON -COVERED DRUGS -- BIN:311196, PCN: ASPROD1, Group: XXXXX, ID# [id number], Questions: . THIS IS NOT INSURANCE.] ibuprofen 800 mg tablet RxNorm: 364341 1 Tablet(s) PO T ID as needed low back pain 11/09/2014 11/10/2014 Inactive [SAVINGS FOR NON -COVERED DRUGS -- BIN:494715, PCN: ASPROD1, Group: XXXXX, ID# [id number], Questions: . THIS IS NOT INSURANCE.] Zorvolex 35 mg capsule RxNorm: 2764818 1 Tablet(s) PO TID 08/27/2014 10/01/2014 Inactive [SAVINGS FOR UNINSURED PATIENTS -- BIN:0 26981, PCN: ASPROD1, Group: AME08, ID# [id number], Process claim through MedImpact, for questions: . THIS IS NOT INSURANCE.] quinapril 10 mg-hydrochlorothiazide 12.5 mg tablet RxNorm: 3 07330 1 Tablet(s) PO QAM 08/27/2014 11/24/2014 Inactive Lidoderm 5 % (700 mg/patch) adhesive patch RxNorm: 0759587 Application TOP for 12hours then off for pain 08/18/2014 02/21/2015 Inactive [SAVIN GS FOR UNINSURED PATIENTS -- BIN:825658, PCN: ASPROD1, Group: AME08, ID# [id number], Process claim through MedImpact, for questions: . THIS IS NOT INSURANCE.] Zorvolex 35 mg capsule RxNorm: 0262807 1 Tablet(s) PO TID 08/13/2014 08/12/2014 Inactive Zorvolex 35 mg capsule RxNorm: 0202974 1 Tablet(s) PO TID 08/13/2014 08/24/2014 Inactive [SAVINGS FOR UNINSURED PATIENTS -- BIN:0 01399, PCN: ASPROD1, Group: AME08, ID# [id number], Process claim through MedImpact, for questions: . THIS IS NOT INSURANCE.] Aspirin Child 81 mg chewable tablet RxNorm: 492289 1 Tablet(s) PO QD No Start Date Active ibuprofen 800 mg tablet RxNorm: 583283 1 Tablet(s) PO T ID as needed low back pain No Start Date 11/08/2014 Inactive cyclobenzaprine 10 mg tablet RxNorm: 332101 1 Tablet(s) PO TID No S tart Date 08/12/2017 Inactive garlic 1,000 mg capsule RxNorm: 591726 1 Capsule(s) PO QD No Start Date 04/22/2019 Inactive tramadol 50 mg tablet RxNorm: 089740 1 Tablet(s) PO Q4-6H as ne eded for pain No Start Date 02/21/2015 Inactive tramadol 50 mg tablet RxNorm: 141301 1 Tablet(s) PO TID as needed for pain along with two tylenol No Start Date 01/07/2019 Inactive krill oil oral RxNorm: 32534 oral No Start Date 11/11/2018 Inacti ve Vitamin D3 2,000 unit tablet RxNorm: 901320 1 Tablet(s) PO QD No St art Date 08/12/2019 Inactive gabapentin 100 mg tablet RxNorm: 476335 1 Tablet(s) PO QD No Start Date 11/10/2014 Inactive Zofran 4 mg tablet RxNorm: 835149 1 Tablet(s) PO Q6H as needed No S tart Date 08/12/2019 Inactive Elimite 5 % topical cream RxNorm: 157161 1 Application TOP QHS apply head to toe and was off in morning No Start Date 05/18/2019 Inactive gabapentin 100 mg capsule RxNorm: 126864 1 Capsule(s) PO QHS No Sta rt Date 11/10/2014 Inactive aspirin 325 mg tablet RxNorm: 758374 2 Tablet(s) PO QD No Start Date 08/17/2014 Inactive Fish Oil 1,000 mg capsule RxNorm: 1 Capsule(s) PO QD No Start Date 10/08/2018 Inactive quinapril 10 mg-hydrochlorothiazide 12.5 mg tablet RxNorm: 3 05091 1 Tablet(s) PO QAM No Start Date 08/26/2014 Inactive quinapril 40 mg tablet RxNorm: 097229 1 Tablet(s) PO QD No Start Da te 10/23/2017 Inactive Medrol (Daniel) 4 mg tablets in a dose pack RxNorm: 172933 Tablet(s) PO As Directed No Start Date 05/05/2018 Inactive Urecholine 25 mg tablet RxNorm: 417371 1 Tablet(s) PO TID No Start Date 11/08/2015 Inactive cyclobenzaprine 10 mg tablet RxNorm: 554225 1/2-1 Table t(s) PO TID as needed for muscle spasm No Start Date 12/01/2014 Inactive tamsulosin 0.4 mg capsule RxNorm: 210705 2 Capsule(s) PO QPM No Sta rt Date 08/12/2019 Inactive hydrocodone 5 mg-acetaminophen 325 mg tablet RxNorm: 663640 1 -2 Tablet(s) PO Q6H as needed No Start Date 05/20/2019 Inactive loratadine 10 mg tablet RxNorm: 802447 1 Tablet(s) PO QD No Start D ate 07/07/2014 Inactive Medication Administered No Medication Administered data Immunizations Vaccine Codes Date Status Influenza CVX: 141 07/21/2019 Results Observation Observation Code Item Item Code Result Date S [facility] Location CULTURE, URINE, ROUTINE 395 CULTURE SEE NOTE 1 10/15/2018 [facility] [address] [place] [phone] CULTURE, URINE, ROUTINE 395 CULTURE, URINE, ROUTINE SEE NOTE 08/15/2019 [facility] Kohli Becerra [address] [place] [address] CBC (H/H, RBC, INDICES, WBC, PLT) 09218 WHITE BLOOD CELL COU NT 7.9 Thousand/uL 08/14/2019 [facility] Becerra [address] [place] [address] CBC (H/H, RBC, INDICES, WBC, PLT) 19174 RED BLOOD CELL COUNT 4.93 Million/uL 08/14/2019 [facility] [address] [address] CBC (H/H, RBC, INDICES, WBC, PLT) 37620 HEMOGLOBIN 15 .4 g/dL 08/14/2019 [facility] Becerra [address] [place] [address] CBC (H/H, RBC, INDICES, WBC, PLT) 31068 HEMATOCRIT 45 .0 % 08/14/2019 [facility] Becerra [address] [place] [address] CBC (H/H, RBC, INDICES, WBC, PLT) 82244 MCV 91 .3 fL 08/14/[address] [facility] [address] CBC (H/H, RBC, INDICES, WBC, PLT) 81279 MCH 31 .2 pg 08/14/[address] [facility] [address] CBC (H/H, RBC, INDICES, WBC, PLT) 23314 MCHC 34 .2 g/dL 08/14/[address] [facility] [address] CBC (H/H, RBC, INDICES, WBC, PLT) 04276 RDW 12 .7 % 08/14/[address] [facility] [address] CBC (H/H, RBC, INDICES, WBC, PLT) 77743 PLATELET COUNT 214 Thousand/uL 08/14/2019 [facility] [address] CBC (H/H, RBC, INDICES, WBC, PLT) 75910 MPV 11 .5 fL 08/14/[address] [facility] [address] COMPREHENSIVE METABOLIC PANEL 69027 Glucose 113 mg /dL 08/14/[address] [facility] [address] [address] COMPREHENSIVE METABOLIC PANEL 25354 UREA NITROGEN (BUN) 16 mg/dL 08/14/[address] [facility] [address] [address] COMPREHENSIVE METABOLIC PANEL 13703 CREATININE 0.86 m g/dL 08/14/[address] [facility] [address] COMPREHENSIVE METABOLIC PANEL 65194 eGFR NON-AFR. ERITREAN 92 mL/min/1.73m2 08/14/[address] [facility] [address] COMPREHENSIVE METABOLIC PANEL 09760 eGFR 106 mL/min/1.73m2 08/14/[address] [facility] [address] COMPREHENSIVE METABOLIC PANEL 20442 BUN/CREATININE RATIO NOT APPLICABLE (calc) 08/14/[address] [facility] [address] COMPREHENSIVE METABOLIC PANEL 12803 SODIUM 141 mm ol/L 08/14/2019 [facility] [address] COMPREHENSIVE METABOLIC PANEL 89914 POTASSIUM 4.1 mm ol/L 08/14/2019 [facility] [address] COMPREHENSIVE METABOLIC PANEL 53113 CHLORIDE 102 mm ol/L 08/14/2019 [facility] [address] COMPREHENSIVE METABOLIC PANEL 50464 CARBON DIOXIDE 28 mmol/L 08/14/[address] [facility] [address] COMPREHENSIVE METABOLIC PANEL 73963 CALCIUM 9.7 mg /dL 08/14/[address] [facility] [address] COMPREHENSIVE METABOLIC PANEL 93842 PROTEIN, TOTAL 6. 7 g/dL 08/14/2019 [facility] [address] COMPREHENSIVE METABOLIC PANEL 88924 ALBUMIN 4.3 g/ dL 08/14/2019 [facility] [address] COMPREHENSIVE METABOLIC PANEL 23367 GLOBULIN 2.4 g/ dL(calc) 08/14/2019 [facility] [address] COMPREHENSIVE METABOLIC PANEL 20221 ALBUMIN/GLOBULIN RATIO 1.8 (calc) 08/14/2019 [facility] [address] COMPREHENSIVE METABOLIC PANEL 73322 BILIRUBIN, TOTAL 1.0 mg/dL 08/14/2019 [facility] [address] COMPREHENSIVE METABOLIC PANEL 60183 ALKALINE PHOSPHATASE 56 U/L 08/14/[address] [facility] [address] COMPREHENSIVE METABOLIC PANEL 67294 AST 18 U/L 08/14/[address] [facility] [address] COMPREHENSIVE METABOLIC PANEL 91509 ALT 28 U/L 08/14/2019 [facility] [address] MAGNESIUM 30126 MAGNESIUM 2.0 mg/dL 06/06/2019 [facility] [address] COMPREHENSIVE METABOLIC PANEL 56171 Glucose 106 mg /dL 06/06/2019 [facility] [address] COMPREHENSIVE METABOLIC PANEL 58566 UREA NITROGEN (BUN) 22 mg/dL 06/06/2019 [facility] [address] COMPREHENSIVE METABOLIC PANEL 61579 CREATININE 1.29 m g/dL 06/06/[address] [facility] [address] COMPREHENSIVE METABOLIC PANEL 55184 eGFR NON-AFR. ERITREAN 58 mL/min/1.73m2 06/06/2019 [facility] [address] [address] COMPREHENSIVE METABOLIC PANEL 11766 eGFR 67 mL/min/1.73m2 06/06/2019 [facility] [address] [address] COMPREHENSIVE METABOLIC PANEL 47534 BUN/CREATININE RATIO 17 (calc) 06/06/2019 [facility] [address] COMPREHENSIVE METABOLIC PANEL 46497 SODIUM 138 mm ol/L 06/06/[address] [facility] [address] COMPREHENSIVE METABOLIC PANEL 46519 POTASSIUM 4.2 mm ol/L 06/06/2019 [facility] [address] [address] COMPREHENSIVE METABOLIC PANEL 27493 CHLORIDE 101 mm ol/L 06/06/2019 [facility] [address] [address] COMPREHENSIVE METABOLIC PANEL 77289 CARBON DIOXIDE 29 mmol/L 06/06/2019 [facility] [address] [address] COMPREHENSIVE METABOLIC PANEL 88612 CALCIUM 9.6 mg /dL 06/06/2019 [facility] [address] [address] COMPREHENSIVE METABOLIC PANEL 82616 PROTEIN, TOTAL 6. 9 g/dL 06/06/2019 [facility] [address] [address] COMPREHENSIVE METABOLIC PANEL 62090 ALBUMIN 4.4 g/ dL 06/06/2019 [facility] [address] [address] COMPREHENSIVE METABOLIC PANEL 41489 GLOBULIN 2.5 g/ dL(calc) 06/06/2019 [facility] [address] [address] COMPREHENSIVE METABOLIC PANEL 53422 ALBUMIN/GLOBULIN RATIO 1.8 (calc) 06/06/2019 [facility] [address] [address] COMPREHENSIVE METABOLIC PANEL 64444 BILIRUBIN, TOTAL 0.7 mg/dL 06/06/2019 [facility] [address] [address] COMPREHENSIVE METABOLIC PANEL 46164 ALKALINE PHOSPHATASE 45 U/L 06/06/2019 [facility] [address] [address] COMPREHENSIVE METABOLIC PANEL 02230 AST 21 U/L 06/06/2019 [facility] [address] [phone] COMPREHENSIVE METABOLIC PANEL 97293 ALT 34 U/L 06/06/2019 [facility] [address] [phone] CULTURE, URINE, ROUTINE 395 CULTURE, URINE, ROUTINE SEE NOTE 04/23/2019 [facility] [address] [phone] CULTURE, URINE, ROUTINE 395 CULTURE SEE NOTE 0 04/23/2019 [facility] [address] [place] [id number] EXTRA 1014 EXTRA TUBE RECEIVED 04/22 [facility] [address] [place] [phone] EXTRA 1014 SPECIMEN TYPE RECEIVED: LAV 0 04/22/2019 [facility] [address] [place] [phone] COMPREHENSIVE METABOLIC PANEL 70211 Glucose 94 mg/ dL 04/22/2019 [facility] [address] [address] COMPREHENSIVE METABOLIC PANEL 41623 UREA NITROGEN (BUN) 20 mg/dL 04/22/2019 [facility] [address] [address] COMPREHENSIVE METABOLIC PANEL 14974 CREATININE 1.30 m g/dL 04/22/[address] [facility] [address] COMPREHENSIVE METABOLIC PANEL 89708 eGFR NON-AFR. ERITREAN 58 mL/min/1.73m2 04/22/[address] [facility] [address] COMPREHENSIVE METABOLIC PANEL 07359 eGFR 67 mL/min/1.73m2 04/22/[address] [facility] [address] COMPREHENSIVE METABOLIC PANEL 43601 BUN/CREATININE RATIO 15 (calc) 04/22/[address] [facility] [address] COMPREHENSIVE METABOLIC PANEL 15964 SODIUM 139 mm ol/L 04/22/[address] [facility] [address] COMPREHENSIVE METABOLIC PANEL 80035 POTASSIUM 4.2 mm ol/L 04/22/[address] [facility] [address] COMPREHENSIVE METABOLIC PANEL 98391 CHLORIDE 104 mm ol/L 04/22/[address] [facility] [address] COMPREHENSIVE METABOLIC PANEL 53225 CARBON DIOXIDE 27 mmol/L 04/22/[address] [facility] [address] COMPREHENSIVE METABOLIC PANEL 21806 CALCIUM 9.9 mg /dL 04/22/2019 [facility] [address] COMPREHENSIVE METABOLIC PANEL 00652 PROTEIN, TOTAL 7. 1 g/dL 04/22/[address] [facility] [address] [address] COMPREHENSIVE METABOLIC PANEL 20680 ALBUMIN 4.6 g/ dL 04/22/[address] [facility] [address] COMPREHENSIVE METABOLIC PANEL 87496 GLOBULIN 2.5 g/ dL(calc) 04/22/[address] [facility] [address] COMPREHENSIVE METABOLIC PANEL 74395 ALBUMIN/GLOBULIN RATIO 1.8 (calc) 04/22/[address] [facility] [address] COMPREHENSIVE METABOLIC PANEL 70625 BILIRUBIN, TOTAL 0.4 mg/dL 04/22/2019 [facility] [address] [place] [address] COMPREHENSIVE METABOLIC PANEL 63939 ALKALINE PHOSPHATASE 53 U/L 04/22/2019 [facility] [address] [place] [address] COMPREHENSIVE METABOLIC PANEL 43473 AST 21 U/L 04/22/2019 [facility] [address] [place] [address] COMPREHENSIVE METABOLIC PANEL 04201 ALT 34 U/L 04/22/2019 [facility] [address] [place] [address] CULTURE, URINE, ROUTINE 395 CULTURE, URINE, ROUTINE SEE NOTE 01/31/2019 [facility] [address] [place] [address] Procedures Procedure Codes Date ROUTINE VENIPUNCTURE CPT-4: 43540 08/13/2019 URINALYSIS NONAUTO W/O SCOPE CPT-4: 98473 08/13/2019 CULTURE, URINE, ROUTINE CPT-4: 395 08/13/2019 COMPREHENSIVE METABOLIC PANEL CPT-4: 40753 08/13/2019 CBC (H/H, RBC, INDICES, WBC, PLT) CPT-4: 27125 2018 COMPREHENSIVE METABOLIC PANEL CPT-4: 31138 06/05/2019 MAGNESIUM CPT-4: 58122 06/05/2019 DEXAMETHASONE SODIUM PHOS CPT-4: J1100 05/21/2019 THER/PROPH/DIAG INJ SC/IM CPT-4: 22068 05/21/2019 TRIAMCINOLONE ACET INJ NOS CPT-4: J3301 05/21/2019 ROUTINE VENIPUNCTURE CPT-4: 09114 04/21/2019 COMPREHENSIVE METABOLIC PANEL CPT-4: 74170 04/21/2019 EXTRA CPT-4: 1014 04/21/2019 CULTURE, URINE, ROUTINE CPT-4: 395 04/21/2019 URINALYSIS NONAUTO W/O SCOPE CPT-4: 75190 04/21/2019 URINALYSIS NONAUTO W/O SCOPE CPT-4: 66870 01/29/2019 CULTURE, URINE, ROUTINE CPT-4: 395 01/29/2019 DRAIN/INJECT JOINT/BURSA CPT-4: 29740 02/19/2018 TRIAMCINOLONE ACET INJ NOS CPT-4: J3301 02/19/2018 DEXAMETHASONE SODIUM PHOS CPT-4: J1100 02/19/2018 THER/PROPH/DIAG INJ SC/IM CPT-4: 34539 02/12/2018 TRIAMCINOLONE ACET INJ NOS CPT-4: J3301 02/12/2018 DEXAMETHASONE SODIUM PHOS CPT-4: J1100 02/12/2018 CEFTRIAXONE SODIUM INJECTION CPT-4: J0696 12/03/2017 THER/PROPH/DIAG INJ SC/IM CPT-4: 67408 12/03/2017 THER/PROPH/DIAG INJ SC/IM CPT-4: 11481 12/03/2017 METHYLPREDNISOLONE INJECTION CPT-4: J2930 12/03/2017 URINALYSIS NONAUTO W/O SCOPE CPT-4: 31695 08/13/2017 STREP A ASSAY W/OPTIC CPT-4: 86793 02/13/2017 DESTRUCT PREMALG LESION (Cryosurgery) CPT-4: 26748 Vital Signs Date Vital 08/25/2019 Blood Pressure 1: 122/78 Code: 8480-6 [...] 1: 128/78 Code: 8480-6 BMI: 36.0 Code: 08170-7 Heart Rate 1: 68 bpm Height: 5'7" [...] 1: 138/86 Code: 8480-6 BMI: 35.6 Code: 97949-0 Heart Rate 1: 68 bpm Height: 5'7" SpO2: 95% Temperature: 36.6 (C) / 97.8 (F) Weight: 227 lbs 12/03/2017 Blood Pressure 1: 134/84 Code: 8480-6 BMI: 34.3 Code: 29308-0 Heart Rate 1: 68 bpm Height: 5'7" Respiratory Rate: 20 bpm SpO2: 96% Tempera ture: 35.9 (C) / 96.6 (F) Weight: 219 lbs 09/11/2017 Blood Pressure 1: 140/86 Code: 8480-6 BMI: 34.9 Code: 37985-7 Heart Rate 1: 84 bpm Height: 5'7" Respiratory Rate: 20 bpm SpO2: 95% Tempera ture: 36.7 (C) / 98.1 (F) Weight: 223 lbs 08/13/2017 Blood Pressure 1: 142/94 Code: 8480-6 BMI: 34.5 Code: 52419-1 Heart Rate 1: 76 bpm Height: 5'7" Respiratory Rate: 20 bpm SpO2: 96% Tempera ture: 37.1 (C) / 98.8 (F) Weight: 220 lbs 11/17/2016 Blood Pressure 1: 118/78 Code: 8480-6 He art Rate 1: 64 bpm 07/19/2016 Blood Pressure 1: 112/58 Code: 8480-6 BMI: 31.6 Code: 89555-3 Heart Rate 1: 88 bpm Height: 5'7" Respiratory Rate: 22 bpm SpO2: 98% Tempera ture: 36.3 (C) / 97.4 (F) Weight: 202 lbs 06/09/2016 Blood Pressure 1: 138/84 Code: 8480-6 BMI: 32.1 Code: 34059-3 Heart Rate 1: 58 bpm Height: 5'7" Respiratory Rate: 20 bpm SpO2: 97% Tempera ture: 36.6 (C) / 97.8 (F) Weight: 205 lbs 11/08/2015 Blood Pressure 1: 142/80 Code: 8480-6 BMI: 32.4 Code: 34215-7 Heart Rate 1: 76 bpm Height: 5'7" Respiratory Rate: 20 bpm Temperature: 36 .6 (C) / 97.9 (F) Weight: 207 lbs 06/14/2015 Blood Pressure 1: 126/80 Code: 8480-6 Heart Rate 1: 84 bpm Respiratory Rate: 20 bpm Temperature: 36.8 (C) / 98.2 (F) Weight: 206 lbs 05/18/2015 Blood Pressure 1: 124/80 Code: 8480-6 BMI: 32.3 Code: 08841-8 Heart Rate 1: 68 bpm Height: 5'7" Respiratory Rate: 20 bpm Temperature: 36 .4 (C) / 97.6 (F) Weight: 206 lbs 02/22/2015 Blood Pressure 1: 126/78 Code: 8480-6 BMI: 32.1 Code: 95727-0 Heart Rate 1: 76 bpm Height: 5'7" Respiratory Rate: 20 bpm Temperature: 36 .6 (C) / 97.9 (F) Weight: 205 lbs 12/02/2014 Blood Pressure 1: 124/80 Code: 8480-6 BMI: 32.7 Code: 70912-9 Heart Rate 1: 70 bpm Height: 5'7" Respiratory Rate: 18 bpm Temperature: 36 .6 (C) / 97.9 (F) Weight: 209 lbs 08/18/2014 Blood Pressure 1: 132/94 Code: 8480-6 BMI: 34.5 Code: 11067-3 Heart Rate 1: 84 bpm Height: 5'6" Respiratory Rate: 20 bpm Temperature: 36 .6 (C) / 97.9 (F) Weight: 217 lbs 07/08/2014 Blood Pressure 1: 142/88 Code: 8480-6 BMI: 34.3 Code: 31960-3 Heart Rate 1: 72 bpm Height: 5'6" Respiratory Rate: 20 bpm Temperature: 36 .8 (C) / 98.2 (F) Weight: 216 lbs Functional Status No Functional Status data Reason For Visit Reason For Visit Effective Dates Notes chest pain/pressure 08/25/2019 frequent urination 08/13/2019 Patient [...] 12/02/2014 skin lesion 08/18/2014 ~generic 07/08/2014 New Patient/Areliss rhonda Visit Encounters Encounter Performer Location Codes Date ([id number]) OFFICE/OUTPATIENT VISIT EST Diagnosis: Chest pain[ICD10: R07.9] Lashell COATSN MANUELITO [facility] CPT-4: 41743 08/25/2019 ([id number]) OFFICE/OUTPATIENT VISIT EST Diagnosis: Thoracic back pain[ICD10: M54.6] Diagnosis: Disorder of kidney and ureter, unspecified[ICD10: N28.9] Diagnosis: Personal history of nicotine dependence[ICD10: Z87.891] 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 CANDICE ANGELY [facility] CPT-4: 74101 08/13/2019 ([id number]) OFFICE/OUTPATIENT VISIT EST Diagnosis: Sigmoid diverticulitis[ICD10: K57.32] Diagnosis: Renal insufficiency[ICD10: N28.9] Diagnosis: Jock itch[ICD10: B35.6] Sapna BRUNSONLINE Jefry. QUINTONND [facility] CPT-4: 57935 07/03/2019 ([id number]) OFFICE/OUTPATIENT VISIT EST Diagnosis: Cramp and spasm[ICD10: R25.2] Diagnosis: Disorder of kidney and ureter, unspecified[ICD10: N28.9] Lashell Capps. QUINTONNDER [facility] CPT-4: 88380 06/05/2019 ([id number]) OFFICE/OUTPATIENT VISIT EST Diagnosis: Other pruritus[ICD10: L29.8] Diagnosis: Pain in right knee[ICD10: M25.561] Lashell Capps. BUZZ MARIE [facility] CPT-4: 96265 05/21/2019 ([id number]) NURSE/OUTPATIENT VISIT EST Diagnosis: Edema, unspecified[ICD10: R60.9] Sapna Quintondominicgustabo BRUNSONSAPNA Vickie LIVE DO [facility] CPT-4: 07702 04/21/2019 ([id number]) OFFICE/OUTPATIENT VISIT EST Diagnosis: Diverticulitis of large intestine without perforation or abscess without bleeding[ICD10: K57.32] Diagnosis: Snoring[ICD10: R06.83] Diagnosis: Other constipation[ICD10: K59.09] Lashell LIVE [employer] CPT-4: 76087 02/24/2019 ([id number]) OFFICE/OUTPATIENT VISIT EST Diagnosis: Diverticulitis of large intestine without perforation or abscess with bleeding[ICD10: K57.33] Nancy Dowellhlman SAPNA Vickie LIVE [facility] CPT-4: 66081 02/04/2019 ([id number]) OFFICE/OUTPATIENT VISIT EST Diagnosis: Left lower quadrant pain[ICD10: R10.32] Nancyaleksandr SHAH PILOJANE JefryAmarjit BUZZ [facility] CPT-4: 47860 01/29/2019 OFFICE/OUTPATIENT VISIT EST Diagnosis: Dermatitis, unspecified[ICD10: L30.9] Diagnosis: Gastro-esophageal reflux disease without esophagitis[ICD10: K21.9] Diagnosis: Palpitations[ICD10: R00.2] Sapna CORRAL Vickie AU [facility] CPT-4: 23968 12/19/2018 ([id number]) OFFICE/OUTPATIENT VISIT EST Diagnosis: Gastro-esophageal reflux disease without esophagitis[ICD10: K21.9] Diagnosis: Dysphagia, pharyngoesophageal phase[ICD10: R13.14] Sapna CORRAL Jefry. BUZZ [facility] CPT-4: 69149 11/11/2018 ([id number]) PREV VISIT EST AGE 40-64 Diagnosis: Encounter [...] disorders of digestive system[ICD10: K91.89] Lashell LIVE [facility] CPT-4: 99 396 10/09/2018 ([id number]) OFFICE/OUTPATIENT VISIT EST Diagnosis: Pain in right knee[ICD10: M25.561] Diagnosis: Pain in right hip[ICD10: M25.551] Lashell LIVE [facility] CPT-4: 10085 02/12/2018 OFFICE/OUTPATIENT VISIT EST Diagnosis: Essential (primary) hypertension[ICD10: I10] Diagnosis: Other chest pain[ICD10: R07.89] Lashell LIVE [facility] CPT-4: 85450 12/03/2017 ([id number]) OFFICE/OUTPATIENT VISIT EST Diagnosis: Essential (primary) hypertension[ICD10: I10] Sapna LIVE [facility] CPT-4: 35304 09/11/2017 ([id number]) PREV VISIT EST AGE 40-64 Diagnosis: Encounter for general adult medical examination without abnormal findings[ICD10: Z00.00] Diagnosis: Essential (primary) hypertension[ICD10: I10] Diagnosis: Left lower quadrant pain[ICD10: R10.32] Diagnosis: Left upper quadrant pain[ICD10: R10.12] Diagnosis: Other intervertebral disc degeneration, 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] Sapna LIVE [facility] CPT-4: 23506 08/13/2017 ([id number]) OFFICE/OUTPATIENT VISIT EST Diagnosis: Acute pharyngitis, unspecified[ICD10: J02.9] Sapna LIVE [facility] CPT-4: 22361 02/13/2017 ([id number]) PREV VISIT EST AGE 40-64 Diagnosis: Encounter for general adult medical examination without abnormal findings[ICD10: Z00.00] Diagnosis: Essential (primary) hypertension[ICD10: I10] 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] Sapna SHAHQUELINE JefryAmarjit BUZZ [facility] CPT-4: 34302 07/19/2016 OFFICE/OUTPATIENT VISIT EST Diagnosis: Pain in thoracic spine[ICD10: M54.6] Diagnosis: Disorder of the skin and subcutaneous tissue, unspecified[ICD10: L98.9] Sobia WoodMarcie SAPNA JefryAmarjit [facility] 61221 06/09/2016 OFFICE/OUTPATIENT VISIT EST Diagnosis: Retention of urine, unspecified[ICD10: R33.9] Diagnosis: Urinary tract infection, site not specified[ICD10: N39.0] Chelsie NoriegaKeith CORRAL JefryAmarjit QUINTONDOMINICER [facility] CPT-4: 85073 11/08/2015 ([id number]) OFFICE/OUTPATIENT VISIT EST Diagnosis: DERMATITIS NOS[ICD9: 692.9] Diagnosis: SEBACEOUS CYST[ICD9: 706.2] Sapna Quintonclaudio CORRAL S. O DANITZA [facility] CPT-4: 17234 06/14/2015 OFFICE/OUTPATIENT VISIT EST Diagnosis: LOCAL SKIN INFECTION[ICD9: 686.9] Diagnosis: FOLLICULITIS[ICD9: 704.8] Chelsie NoriegaAlysiafélixjusta CORRAL JefryAmarjit QUINTON NDER [facility] CPT-4: 91395 05/18/2015 ([id number]) OFFICE/OUTPATIENT VISIT EST Diagnosis: Constipation[ICD9: 564.00] Sapna Johnston OR ANGELY [facility] CPT-4: 98728 02/22/2015 ([id number]) OFFICE/OUTPATIENT VISIT EST Diagnosis: Thoracic back pain[ICD9: 724.1] Diagnosis: Thoracic degenerative disc disease[ICD9: 722.51] Diagnosis: Scoliosis[ICD9: 737.30] Sapna Johnston OREND [facility] CPT-4: 89624 12/02/2014 ([id number]) OFFICE/OUTPATIENT VISIT EST Diagnosis: Thoracic back pain[ICD9: 724.1] Diagnosis: ACTINIC KERATOSIS[ICD9: 702.0] Sapna LIVE DO [facility] CPT-4: 35105 08/18/2014 OFFICE/OUTPATIENT VISIT NEW Diagnosis: HYPERTENSION[ICD9: 401.9] Diagnosis: Thoracic back pain[ICD9: 724.1] Diagnosis: GERD[ICD9: 530.81] Diagnosis: Adrenal tumor[ICD9: 239.7] Sapna Capps. OR ANGELY [facility] CPT-4: 93565 07/08/2014 ([id number]) OFFICE/OUTPATIENT VISIT NEW Diagnosis: HYPERTENSION[ICD9: 401.9] Diagnosis: GERD[ICD9: 530.81] Sapna LIVE DO [facility] CPT-4: 62725 07/08/2014 Plan of Care Planned Activity Notes Codes Status Date Visit Diagnosis Plan: Chest pain Discussion: will star t with cxray and rib xray. discussed that could be lung, rib, muscle but will start with cxray and patient may need echo. he verbalized understanding. ICD-9 : 786.50 ICD-10 : R07.9 08/25/2019 Appointment: Lashell Joe [address] [place] [address] ACUTE ILLNESS 08/25/2019 Visit Diagnosis Plan: Thoracic back pain Discussion: c hronic pain. will refer to dr. stallings at [place] for evaluation and treatment ICD-9 : 724.1 [...] ct of lungs to be done at [facility]. ICD-9 : V15.82 ICD-10 : [...] ICD-10 : E27.8 08/13/2019 Appointment: Lashell Joe [facility] US FOLLOW UP 08/13/2019 Visit Diagnosis Plan: Sigmoid diverticulitis Discussio n: Bactrim/Flagyl [place] diet To ER this weekend if worsening ICD-9 : 562.11 ICD-10 : K57.32 07/03/2019 Visit Diagnosis Plan: Jock itch Discussion: Diflucan a nd topical nystatin ICD-9 : 110.3 ICD-10 : B35.6 07/03/2019 Visit Diagnosis Plan: Renal insufficiency Discussion: Labs discussed Continue off NSAIDS Hydrate Recheck Chemistry 3mos ICD-9 : 593.9 ICD-10 : N28.9 07/03/2019 Appointment: Sapna Live WPtel: [phone] [facility] US FOLLOW UP 07/03/2019 Patient Education: fluconazole- [employer] C[employer] [id number] Completed 07/03/2019 Patient Education: nystatin- [employer] C[employer]on [id number] Completed 07/03/2019 Visit Diagnosis Plan: Disorder of [...] : R25.2 06/05/2019 Appointment: Lashell Joe [address] [facility] NO SHOW - FORGIVEN 06/05/2019 Appointment: [facility] [facility] 06/05/2019 Visit Diagnosis Plan: Pain [...] : 698.9 ICD-10 : L29.8 05/21/2019 Appointment: HeathDavidLashell R. [address] [place] [address] ACUTE ILLNESS 05/21/2019 Patient Education: hydroxyzine HCl- [employer] Coupon [id number] [email or web address].[employer]/samplemd/resources/getResource/61/ewip79s3-s18l-91ci-72 Completed 05/21/2019 Appointment: Sapna Live WPtel: [address] [place], [place] [phone] 05/19/19 1645---see note put in chart today (km) CANCELED 05/19/2019 Appointment: Sapna Live WPtel: [address] [place], [place] [phone] [place] CANCELED 05/05/2019 Appointment: Sapna Live WPtel: [address] [place], [place] [phone] UA 04/21/2019 Visit Diagnosis Plan: Snoring Discussion: [...] ICD-10 : K59.09 02/24/2019 Appointment: Lashell Joe [address] [place] [address] Hospital Follow Up 02/24/2019 Visit Diagnosis Plan: Diverticulitis of large intestine without perforation or abscess with bleeding Discussion: Continue flagyl and cipro. A dvance diet to bland. BRAT diet advised. Avoid nuts, seeds, popcorn, roughage. RTC if abdominal pain worsens or does not improve. ICD-9 : 562.13 ICD-10 : K57.33 02/04/2019 Appointment: Nancy Mendiola [address] [place], [place] [phone] FOLLOW UP 02/04/2019 Visit Diagnosis Plan: Left [...] ICD-10 : R10.32 01/29/2019 Appointment: Nancy Mendiola [address] [place], [place] [phone] ACUTE ILLNESS 01/29/2019 Care Plan: CT PELVIS [...] : L30.9 12/19/2018 Appointment: Sapna Live WPtel: [address] [place], [place] [phone] ACUTE ILLNESS 12/19/2018 Visit Diagnosis Plan: Gastro-esophageal reflux disease without esophagitis Discussion: Continue protonix at 40mg daily Hold mobic No NSAIDS Hold all MVs If persists then will need EGD ICD-9 : 530.81 ICD-10 : K21.9 11/11/2018 Appointment: Sapna Live WPtel: [phone] [facility] FOLLOW UP 11/11/2018 Visit Diagnosis Plan: Encounter for [facility] adult medical examination without abnormal findings [...] ICD-10 : I10 10/09/2018 Appointment: Lashell Joe [address] [place], [place] [phone] Annual Well Visit 10/09/2018 Patient Education: gabapentin- [employer] C[employer]on [id number] Completed 10/09/2018 Patient Education: Kegel Exercises Comple catalina 10/09/2018 Patient Education: High Blood Pressure Co mpleted 10/09/2018 Visit Diagnosis Plan: Pain in right knee Discussion: c orticosteroid injection administered as described above. patient tolerated well. instructed to rtc in 3- 4 months if needed for additional injection. ICD-9 : 719.46 ICD-10 : M25.561 02/19/2018 Appointment: Lashell Joe [address] [place], [place] [id number] OFFICE SURGERY 02/19/2018 Patient Education: Patient Medication [...] ICD-10 : M25.561 02/12/2018 Appointment: Lashell Joe [address] [place] [address] ACUTE ILLNESS 02/12/2018 Patient Education: Patient Medication Summary Completed 02/12/2018 Care Plan: X-RAY EXAM OF KNEE 1 [place] 2 [place] : [address]4 Pending 02/12/2018 Visit Diagnosis Plan: Essential (primary) [...] ICD-10 : R07.89 12/03/2017 Appointment: Lashell Joe [address] [place] [address] ESTABLISHED PATIENT 12/03/2017 Patient Education: Patient Medication Summary Completed 12/03/2017 Visit Diagnosis Plan: Essential (primary) hypertension Discussion: Increase quinapril to 40mg daily BP check in 1month ICD-9 : 401.9 ICD-10 : I10 09/11/2017 Appointment: Sapna Live WPtel: [address] [place], [place] [phone] [place] FOLLOW UP 09/11/2017 Patient Education: Patient Medication Summary Completed 09/11/2017 Appointment: Sapna Live WPtel: [address] [place], [place] [phone] US RESCHEDULED 08/22/2017 Visit Diagnosis Plan: Essential (primary) hypertension Discussion: Increase quinapril to 20mg daily Follow Up: 1 months ICD-9 : 401.9 ICD-10 : I10 08/13/2017 Visit Diagnosis Plan: Encounter for [facility] adult medical examination without abnormal findings Discussion: Update fasting lab ICD-9 : V70.9 ICD-10 : Z00.00 08/13/2017 Visit Diagnosis Plan: Left lower quadrant pain Discuss ion: Update colonoscopy ICD-9 : 789.04 ICD-10 : R10.32 08/13/2017 Appointment: Sapna Live WPtel: [address] [place], [place] [phone] Annual Well Visit 08/13/2017 Patient Education: Patient Medication Summary Completed 08/13/2017 Appointment: Sapna Live WPtel: [phone] THROAT SWAB 02/13/2017 Patient Education: Patient Medication Summary Completed 02/13/2017 Appointment: Sapna Live WPtel: [phone] [place] [phone] BP CHECK 11/17/2016 Patient Education: Patient Medication Summary Completed 11/17/2016 Visit Plan: Due for colonoscopy in 2018 Had shingles shot and flu shot Change quinapril hct to plain quinapril and see if muscles twitches improve Fwup with Dr. Braga Lab discussed Discussed diet/exercise at length Check CT abdomen Recheck 3mos 07/19/2016 Appointment: Sapna Live WPtel: [address] [place], [place] [phone] 07/18 confirmed`sl PHYSICAL 07/19/2016 Patient Education: Patient [...] earliest convenience 06/09/2016 Appointment: Doreen Monrealcy WPtel: [address] [place] [address] ACUTE ILLNESS 06/09/2016 Patient Education: Patient Medication Summary Completed 06/09/2016 Referral: Demario Braga WPtel: [address] [place], [place] [phone] Referral Initiated 11/12/2015 Visit Plan: Continue indwelling catheter until follow-up with Dr. Braga Continue Bactrim and Cipro Pyridium TID for Bladder spasms 11/08/2015 Appointment: Chelsie Teixeira WPtel: [address] [place] [address] ER Follow UP 11/08/2015 Patient Education: Patient Medication Summary Completed 11/08/2015 Referral: Abdiel Tucker WPtel: [address] [place], [place] [phone] Referral Initiated 06/21/2015 Visit Plan: Prednisone 20mg daily for 1w iroquois See surgery of cyst removal 06/14/2015 Appointment: Sapna Live WPtel: [address] [place] [address] 06/11 cn 06/14 cn FOLLOW UP 2014 Patient Education: Patient Medication Summary Completed 06/14/2015 Visit Plan: Warm moist compresses to Lef t shoulder lesion and apply topical Mupirocin twice daily Complete Cephalexin x 7 days as directed Resume Culturelle daily 05/18/2015 Appointment: Chelsie Teixeira WPtel: [address] [place], [place] [phone] ACUTE ILLNESS 05/18/2015 Patient Education: Patient Medication Summary Completed 05/18/2015 Visit Plan: Check fasting lab Use pain m eds prn with miralax on the day that takes pain meds 02/22/2015 Appointment: Sapna Live WPtel: [address] [place], [place] [phone] [place] 02/19 vm cn 02/19 appt confirmed-lb ACUTE ILLNESS 5 Patient Education: Patient Medication Summary Completed 02/22/2015 Visit Plan: Increase neurontin to 300mg q HS Continue flexeril and tramadol Call in 1mo on how higher dose of gabapentin 12/02/2014 Appointment: Sapna Live WPtel: [address] [place] [address] FOLLOW UP 12/02/2014 Patient Education: Patient Medication Summary Completed 12/02/2014 Referral: Eric Angelo WPtel: [address] [place] [address] [place] Referral Appointment Confirmed 09/15/2014 Visit Plan: Proceed with pain doctor for possible injection vs nerve block Trial of lidoderm patch Cryotherapy to lesions as above 08/18/2014 Appointment: Sapna Live WPtel: [address] [place] [address] ACUTE ILLNESS 08/18/2014 Patient Education: Patient Medication Summary Completed 08/18/2014 Patient Education: Patient Medication Summary Completed 08/13/2014 Visit Plan: Continue current meds Obtain most recent lab results Check thoracic spine x-rays Needs updated CT scan of adrenal tumor 07/08/2014 Appointment: Sapna Live WPtel: [address] [place] [address] 07/07 vm NEW PATIENT 07/08/2014 Patient Education: Patient Medication Summary Completed 07/08/2014 Patient Education: Patient Medication Summary Completed 07/08/2014 Referral: Suhail Cardenas WPtel: [phone] [place] [address] [place] Referral Completed Referral: Toby Bettencourt WPtel: [address] [facility] [address] [place] [address] [place] Referral Completed Instructions Comment . Due for colonoscopy in [...]
--- OUTSIDE RECORDS SUMMARY | 2020-02-05 08:05 | XMS REPORT | Continuity of Care Document ---
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 136 mmol/L 135-145 Serum or plasma potassium measurement (moles/volume) 4.0 mmol/L 3.6-5.0 Serum or plasma chloride measurement (moles/volume) 101 mmol/L 98-107 Carbon dioxide 23 mmol/L 21-32 Serum or plasma anion gap determination (moles/volume) 12 mmol/L 5-14 Serum or plasma urea nitrogen measurement (mass/volume ) 15 mg/dL 7-18 Serum or plasma creatinine measurement (mass/volume) 1.17 mg/dL 0.60-1.30 Serum or plasma urea nitrogen/creatinine mass ratio 13 NRG Serum or plasma creatinine measurement w ith calculation of estimated glomerular filtration rate > NRG Serum or plasma glucose measurement (mass/volume) 106 mg/dL 70-105 Serum or plasma calcium measurement (mass/volume) 9.8 mg/dL 8.5-10.1 Serum or plasma total bilirubin measurement (mass/volu me) 0.9 mg/dL 0.1-1.0 Serum or plasma alkaline phosphatase cl surement (enzymatic activity/volume) 48 U/L 40-136 Serum or plasma aspartate aminotransfera se measurement (enzymatic activity/volume) 29 U/L 5-34 Serum or plasma alanine aminotransferase measurement (enzymatic activity/volume) 50 U/L 0-55 Serum or plasma protein measurement (mass/volume) 7.1 g/dL 6.4-8.2 Serum or plasma albumin measurement (mass/volume) 4.4 g/dL 3.2-4.5 CALCIUM CORRECTED 9.5 mg/dL 8.5-10.1 Magnesium - 02/22/19 22:00 Magnesium 1.7 mg/dL 1.8-2.4 Lipase - 02/22/19 22:00 Lipase 11 U/L 8-78 Serum or plasma C reactive protein measu rement (mass/volume) - 02/22/19 22:00 Serum or plasma C reactive protein measurement (mass/v olume) 2.66 mg/dL 0.00-0.50 Bacterial blood culture - 02/22/19 22:00 Bacterial blood culture NG NRG Bacterial blood culture - 02/22/19 22:17 Bacterial blood culture NG NRG Complete urinalysis with reflex to cultu re - 02/22/19 22:30 Urine color determination YELLOW NRG Urine clarity determination CLEAR NR G Urine pH measurement by test strip 7 5-9 Specific gravity of urine by test strip 1.005 1.016-1.022 Urine protein assay by test strip, semi-quantitative NEGATIVE NEGATIVE Urine glucose detection by automated test strip NE GATIVE NEGATIVE Erythrocytes detection in urine sediment by light micr oscopy NEGATIVE NEGATIVE Urine ketones detection by automated test strip NE GATIVE NEGATIVE Urine nitrite detection by test strip NEGATIVE NEGATIVE Urine total bilirubin detection by test strip NEGA TIVE NEGATIVE Urine urobilinogen measurement by automated test strip (mass/volume) NORMAL NORMAL Urine leukocyte esterase detection by dipstick NEG ATIVE NEGATIVE Automated urine sediment erythrocyte cou nt by microscopy (number/high power field) NONE NRG Automated urine sediment leukocyte count by microscopy (number/high power field) RARE NRG Bacteria detection in urine sediment by light microsco py NEGATIVE NRG Crystals detection in urine sediment by light microsco py NONE NRG Casts detection in urine sediment by light microscopy NONE NRG Mucus detection in urine sediment by light microscopy NEGATIVE NRG Complete urinalysis with reflex to culture NO NRG Urine drug screening test - 02/22/19 22: 30 Urine phencyclidine detection by screening method NEGATIVE NEGATIVE Urine benzodiazepines detection by screening method NEGATIVE NEGATIVE Urine cocaine detection NEGATIVE NEGATI VE Urine amphetamines detection by screening method N EGATIVE NEGATIVE Urine methamphetamine detection by screening method NEGATIVE NEGATIVE Urine cannabinoids detection by screening method N EGATIVE NEGATIVE Urine opiates detection by screening method NEGATI VE NEGATIVE Urine barbiturates detection NEGATIVE N EGATIVE Screening urine tricyclic antidepressants detection NEGATIVE NEGATIVE Urine methadone detection by screening method NEGA TIVE NEGATIVE Urine oxycodone detection NEGATIVE NEGA TIVE Urine propoxyphene detection NEGATIVE N EGATIVE Coronavirus SARS-CoV-2 SO 2018 0 14:20 Coronavirus Ab [Units/volume] in Serum Negative Negative Encounters ACCT No. Visit Date/Time Discharge Status Pt. Type Provider Facility Loc./Unit Complaint 03/14/16 10/02/2019 15:59:15 10/02/2019 23:5 9:59 CLS Outpatient Sapna Live 5022 10/02/2019 14:56:00 Document Registration [id number] 01/30/2020 09:20:00 23:59:59 CLS Outpatient Jan MONTES MD [facility] LABNPT [id number] 12/25/2019 09:30:00 23:59:59 CLS Preadmit Jan MONTES MD [facility] CATH AORTIC REGURGITATION [id number] 09/10/2019 08:44:00 23:59:59 CLS Outpatient LASHELL MICHAEL APRN [facility] CARD CHEST PAIN [id number] 08/25/2019 15:13:00 23:59:59 CLS Outpatient SAPNA LIVE DO [facility] RAD LEFT SIDED PAIN [id number] 08/25/2019 15:10:00 15:10:00 CAN Preadmit LASHELL MICHAEL APRN [facility] RAD SCREENING [id number] 08/25/2019 10:04:00 13:05:00 DIS Outpatient KIERAN ALCANTAR DO [facility] ENDO DIVERTICULA [id number] 08/18/2019 05:49:00 11:05:00 DIS Outpatient KIERAN ALCANTAR DO [facility] PREOP COLONOSCOPY [id number] 06/13/2019 09:57:00 23:59:59 CLS Outpatient SAPNA LIVE DO [facility] RAD LOW GFR [id number] 02/22/2019 21:34:00 23:57:00 DIS Emergency RONALD GLOVER, AILIN Jimenez [facility] ER ABD PAIN [id number] 01/29/2019 16:32:00 23:59:59 CLS Outpatient SAPNA LIVE DO [facility] RAD LLQ PAIN [id number] 12/23/2018 09:28:00 13:15:00 DIS Outpatient KIERAN ALCANTAR DO [facility] ENDO CHRONIC GASTRITIS [id number] 12/18/2018 14:00:00 23:59:59 CLS Outpatient KIERAN ALCANTAR DO [facility] PREOP EGD [id number] 10/21/2018 09:29:00 23:59:59 CLS Outpatient LASHELL MICHAEL APRN [facility] RAD SCREENING [id number] 02/12/2018 15:54:00 23:59:59 CLS Outpatient LASHELL MICHAEL APRN [facility] RAD RIGHT KNEE PAIN [id number] 12/03/2017 11:24:00 018 23:59:59 CLS Outpatient LASHELL MICHAEL CRYSTAL GAZER [facility] CARD CHEST PAIN [id number] 10/03/2017 11:03:00 018 15:00:00 DIS Outpatient KIERAN ALCANTAR DO [facility] ENDO HX OF DIVERTICULITIS, H X COLON POLYPS, HX FM COLON [id number] 09/28/2017 05:32:00 018 16:24:00 DIS Outpatient KIERAN ALCANTAR DO [facility] PREOP COLONOSCOPY/EGD [id number] 08/02/2016 13:15:00 016 23:59:59 CLS Outpatient SAPNA LIVE DO S [facility] RAD LT ADRENAL MASS F/U [id number] 11/07/2015 14:58:00 016 17:14:00 DIS Emergency UDAY VERÓNICA MARIE [facility] ER DIFFICULTY URINATING [id number] 09/28/2014 12:25:00 015 15:57:00 DIS Outpatient RONALD GLOVER, RAJ Jimenez [facility] CARD THORACIC SPONDYLOSIS [id number] 08/13/2014 14:53:00 014 23:59:59 CLS Outpatient ALYSSA LIVE DOQUELINE S [facility] RAD PAIN RIBS/LUNG [id number] 07/08/2014 16:52:00 014 23:59:59 CLS Outpatient ALYSSA LIVE DOQUELINE S [facility] RAD THORAIC BACK PA IN [id number] 01/17/2014 08:46:00 014 23:59:59 CLS Outpatient LISSETTE SORTO DO [facility] LAB URINARY FREQUENCY TESTO STERONE DEFICIENCY ARTHRITI [id number] 01/10/2014 08:49:00 014 23:59:59 CLS Outpatient SORTO DO, LISSETTE [facility] LAB 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 [id number] 07/23/2018 01:19:00 Document Registration [id number] 12/19/2012 06:46:00 Document Registration [id number] 12/18/2012 08:10:00 Document Registration [id number] 12/09/2012 15:00:00 Document Registration [id number] 03/16/2011 19:01:00 Document Registration [id number] 05/11/2010 14:56:00 Document Registration [id number] 03/04/2010 05:38:00 Document Registration [id number] 03/01/2010 14:53:00 Document Registration [id number] 02/07/2010 15:12:00 Document Registration [id number] 02/01/2010 14:54:00 Document Registration [id number] 12/18/2008 15:00:00 Document Registration [id number] 01/09/2008 06:36:00 Document Registration [id number] 06/19/2007 13:23:00 Document Registration
== END ==
LOC: CATH 07:37
PROVIDERS: ATTEND Internal Medicine Interventional Cardiology
DX: I08.0 Rheumatic disorders of both mitral and aortic valves (principal); I77.819 Aortic ectasia, unspecified site; I10 Essential (primary) hypertension; M19.90 Unspecified osteoarthritis, unspecified site; E66.9 Obesity, unspecified; Z68.33 Body mass index [BMI] 33.0-33.9, adult; Z88.0 Allergy status to penicillin; Z88.1 Allergy status to other antibiotic agents; Z79.82 Long term (current) use of aspirin; Z86.010 Personal history of colon polyps; Z90.79 Acquired absence of other genital organ(s); Z90.49 Acquired absence of other specified parts of digestive tract; Z87.891 Personal history of nicotine dependence
CPT/HCPCS: 93312; 93320; 93325

== ENCOUNTER 2021-03-08 16:14 | Observation (INO) | payer MEDICARE, OTHER ==
[~2021-03-08] VITALS: Ht 172.7 cm; Wt 95.3 kg
[~2021-03-08 16:14] MED LIST changes: -CIPR500T4 PO; +CIPR500T5 PO; -GARL400T14 PO; +GARL400T15 PO; -LIDOCAINE 2% VISCOUS 15 ML UDC ONE; -LIDOCAINE 2% VISCOUS 15 ML UDC PO ONE; -MIDAZOLAM 5 MG/5 ML (VERSED) VIAL IV ONE; -MIDAZOLAM 5 MG/5 ML (VERSED) VIAL ONE; -NS IV 1000 ML 1,000 ML IV SCH; -NS IV 1000 ML 1,000 ML ONE; -PANT40TA3 PO; +PANT40TA52 PO; -fentaNYL INJECTION 100 MCG/2 ML AMP IV ONE; -fentaNYL INJECTION 100 MCG/2 ML AMP ONE
[2021-03-08] MEDS ORDERED: ONDANSETRON 4 MG/2 ML (SDV) Z0FRAN IV PRN (16:45)
[2021-03-08] MEDS ORDERED: PATIENT MAY USE OWN MEDS, ALL PO SCH (16:45)
[2021-03-08] MEDS ORDERED: fentaNYL INJ 100 MCG/2 ML AMP IV PRN (16:45)
[2021-03-08 17:32] LABS: BASOPHILS % (AUTO) 0 % (0-10); EOSINOPHILS # (AUTO) 0.2 10^3/uL (0.0-0.3); EOSINOPHILS % (AUTO) 1 % (0-10); HEMATOCRIT 49 % (40-54); HEMOGLOBIN 16.7 g/dL (13.3-17.7); LYMPHOCYTES # (AUTO) 0.5 10^3/uL (1.0-4.0); LYMPHOCYTES % (AUTO) 4 % (12-44); MEAN CORPUSCULAR HEMOGLOBIN 31 pg (25-34); MEAN CORPUSCULAR HGB CONC 34 g/dL (32-36); MEAN CORPUSCULAR VOLUME 93 fL (80-99); MEAN PLATELET VOLUME 9.8 fL (9.0-12.2); MONOCYTES # (AUTO) 0.8 10^3/uL (0.0-1.0); MONOCYTES % (AUTO) 5 % (0-12); NEUTROPHILS # (AUTO) 13.3 10^3/uL (1.8-7.8); NEUTROPHILS % (AUTO) 89 % (42-75); PLATELET COUNT 202 10^3/uL (130-400); WHITE BLOOD COUNT 14.9 10^3/uL (4.3-11.0)
[2021-03-08 17:33] VITALS: BP 119/69
[2021-03-08 17:48] LABS: ALBUMIN 4.6 GM/DL (3.2-4.5); CHLORIDE 102 MMOL/L (98-107); POTASSIUM 3.9 MMOL/L (3.6-5.0); SODIUM 140 MMOL/L (135-145)
[2021-03-08 17:49] LABS: AMYLASE 74 U/L (25-125); CALCIUM 9.8 MG/DL (8.5-10.1)
[2021-03-08 17:50] LABS: GLUCOSE 117 MG/DL (70-105)
[2021-03-08 17:51] LABS: TOTAL PROTEIN 8.2 GM/DL (6.4-8.2)
[2021-03-08 17:52] LABS: CARBON DIOXIDE 24 MMOL/L (21-32)
[2021-03-08 17:54] LABS: ALKALINE PHOSPHATASE 57 U/L (40-136); CREATININE SERUM 0.92 MG/DL (0.60-1.30); GFR ESTIMATED > 60
[2021-03-08 17:55] LABS: BUN/CREATININE RATIO 16; ERYTHROCYTE SEDIMENTATION RATE 7 MM/HR (0-30)
[2021-03-08] MEDS: NS W/KCL 20 MEQ/L 1,000 ML IV SCH (17:55)
[2021-03-08 17:57] LABS: ALANINE AMINOTRANSFERASE 44 U/L (0-55)
[2021-03-08 17:58] LABS: LIPASE 14 U/L (8-78)
[2021-03-08 18:02] LABS: BAND NEUTROPHILS 2 %; EOSINOPHILS % (MANUAL) 2 %; LYMPHOCYTES % (MANUAL) 1 %; MONOCYTES % (MANUAL) 4 %; NEUTROPHILS % (MANUAL) 91 %
[2021-03-08 18:03] LABS: TOXIC GRANULATION/VACUOLAZATIO 1+
--- NOTE | 2021-03-08 19:08 | Diagnostic Imaging Report ---
PROCEDURE: CT abdomen and pelvis without contrast. TECHNIQUE: Multiple contiguous axial images were obtained through the abdomen and pelvis without the use of intravenous contrast. Auto Exposure Controls were utilized during the CT exam to meet ALARA standards for radiation dose reduction. INDICATION: Abdominal pain with history of diverticulitis. Patient has nausea, vomiting, and diarrhea. COMPARISON: Correlation is made with prior CT from 01/29/2019. FINDINGS: The lung bases are clear. The liver is unremarkable. The gallbladder is surgically absent. No biliary ductal dilatation is seen. The pancreas and spleen are unremarkable. There is a low-density mass involving the left adrenal gland approximately 22 mm in size, stable. Right adrenal gland is unremarkable. Kidneys are unremarkable. No calculi or hydronephrosis are seen. Stomach is moderately distended with fluid. There are some fluid-filled distended small bowel loops in the central abdomen. The bowel loops in the right lower quadrant do appear to be slightly smaller in caliber, suspicious for some transition. Small bowel obstruction cannot be entirely excluded. There is no free air. No free fluid or fluid collection is seen. There is diverticulosis of the sigmoid and descending colon as well as portions of the transverse colon but no evidence of acute diverticulitis. The bladder is unremarkable. Prostate is enlarged. IMPRESSION: 1. There is some moderate fluid-filled distention of small bowel loops throughout the abdomen with questionable mild transition distally. Small bowel obstruction, at least partial, cannot be entirely excluded. Small bowel study may be useful for further evaluation. 2. Uncomplicated diverticulosis. Dictated by: Dictated on workstation # [id number]
[2021-03-08 19:58] VITALS: BP 131/72
[2021-03-08] MEDS: PANTOPRAZOLE 40 MG (PROTONIX) VIAL IV SCH (20:22)
[2021-03-08] MEDS: ACETAMINOPHEN 325 MG TABLET PO PRN (20:22)
[2021-03-08] MEDS: CALCIUM CARBONATE 500 MG (TUMS) TAB.CHEW PO PRN (22:01)
[2021-03-08 23:10] VITALS: BP 129/80
[2021-03-09] MEDS: NS W/KCL 20 MEQ/L 1,000 ML IV SCH ×3 (01:01→16:39)
[2021-03-09] MEDS: ACETAMINOPHEN 325 MG TABLET PO PRN ×2 (02:47→14:50)
[2021-03-09] MEDS: CALCIUM CARBONATE 500 MG (TUMS) TAB.CHEW PO PRN (02:47)
[2021-03-09 03:57] VITALS: BP 125/74
[2021-03-09 05:38] LABS: HEMATOCRIT 43 % (40-54); MEAN CORPUSCULAR HEMOGLOBIN 31 pg (25-34); MEAN CORPUSCULAR HGB CONC 33 g/dL (32-36); MEAN CORPUSCULAR VOLUME 94 fL (80-99); MEAN PLATELET VOLUME 9.9 fL (9.0-12.2); PLATELET COUNT 160 10^3/uL (130-400); WHITE BLOOD COUNT 8.2 10^3/uL (4.3-11.0)
[2021-03-09 07:35] VITALS: BP 129/79
[2021-03-09] MEDS ORDERED: CHOL20002 PO (08:16)
[2021-03-09] MEDS ORDERED: ASPI-1238 PO (08:16)
[2021-03-09] MEDS ORDERED: TRAM50TA3 PO (08:16)
[2021-03-09] MEDS ORDERED: DOXA4TAB2 PO (08:16)
[2021-03-09] MEDS ORDERED: KRIL1CAP6 PO (08:16)
[2021-03-09] MEDS ORDERED: MULT-1065 PO (08:16)
[2021-03-09] MEDS ORDERED: L.AC1CAP6 PO (08:16)
[2021-03-09] MEDS ORDERED: GARL200T PO (08:16)
[2021-03-09] MEDS: PANTOPRAZOLE 40 MG (PROTONIX) VIAL IV SCH ×2 (08:42→21:54)
[2021-03-09] MEDS: QUINAPRIL 40 MG PO SCH (10:06)
[2021-03-09] MEDS: ASPIRIN E.C. 81 MG (ECOTRIN) TAB PO SCH (10:09)
[2021-03-09 11:52] VITALS: BP 134/74
--- NOTE | 2021-03-09 12:32 | History & Physical ---
History of Present Illness History of Present Illness Reason for visit/HPI This is a 65 year old male who presented to my office yesterday with sudden onset of diarrhea and nausea and vomiting. He was uncontrollably wretching in my office so it was decided to admit him for further evaluation and treatment. He does have a history of diverticulitis. Date of Admission Mar 08, 2021 at 16:55 Date Seen by a Provider: Mar 09, 2021 Time Seen by a Provider: 12:27 I consulted on this patient on 03/09/21 12:27 Attending Physician Sapna Gerber DO Admitting Physician Sapna Gerber DO Consult Allergies and Home Medications Allergies Coded Allergies: Penicillins (Verified Allergy, Unknown, 12/23/18) Home Medications Aspirin 81 Mg Tablet., 81 MG PO DAILY, (Reported) Last Action: Continued Cholecalciferol (Vitamin D3) 50 Mcg Capsule, 50 MCG PO DAILY, (Reported) Last Action: Converted Doxazosin Mesylate 4 Mg Tablet, 4 MG PO 1800, (Reported) Last Action: Continued Garlic 200 Mg Tablet, 200 MG PO DAILY, (Reported) Last Action: Converted Glucosam/Chond/Hyalu/Cf Borate 1 Each Tablet, 1 EACH PO DAILY, (Reported) Last Action: Converted Krill/Om3/Dha/Epa/Om6/Lip/Astx 1 Each Capsule, 1 EACH PO DAILY, (Reported) Last Action: Converted L.acidoph & Paracasei,B.lactis 1 Each Capsule, 1 EACH PO HS, (Reported) Last Action: Converted Multivit-Min/FA/Lycopen/Lutein 1 Each Tablet, 1 EACH PO DAILY, (Reported) Last Action: Converted Pantoprazole Sodium 40 Mg Tablet.dr, 40 MG PO 1800, (Reported) Last Action: Continued Quinapril HCl 40 Mg Tablet, 40 MG PO DAILY, (Reported) Last Action: Converted Saw/Vit E/Sod Keila/Lyc/Beta/Pyg 1 Each Tablet, 2 EACH PO DAILY, (Reported) Last Action: Converted Tramadol HCl 50 Mg Tablet, 100 MG PO BID PRN for PAIN-MODERATE (5-7), (Reported) TAKES 2 (50MG) TABS Last Action: Continued Patient Home Medication List Home Medication List Reviewed: Yes Past Zybtict-Zahljh-Uljnlp Hx Past Med/Social Hx: Reviewed Nursing Past Med/Soc Hx Patient Social History Smoking Status: Former Smoker Former Smoker, Quit: Sep 28, 1991 Type Used: Cigarettes 2nd Hand Smoke Exposure: No Recent Hopitalizations: No Immunizations Up To Date Tetanus Booster (TDap): Unknown Pediatric: No Date of Pneumonia Vaccine: February 05, 2016 Date of Influenza Vaccine: Jul 16, 2020 Seasonal Allergies Seasonal Allergies: Yes (MILD) Past Medical History Surgeries: Abdominal, Gallbladder, Orthopedic, Testicular Cardiac: Hypertension Reproductive: No Sexually Transmitted Disease: No Gastrointestinal: Gastroesophageal Reflux, Chronic Constipation, Diverticulosis Musculoskeletal: Degenerate Disk Disease, Arthritis, Chronic Back Pain Loss of Vision: Bilateral Hearing Impairment: Denies History of Blood Disorders: No Adverse Reaction to Blood Holden: No (HAS HAD BLOOD WITH NO REACTION) Review of Systems Constitutional: weakness EENTM: No see HPI, No no symptoms reported, No ear discharge, No hearing loss, No ear pain, No blurred vision, No double vision, No eye pain, No tearing, No vision loss, No dental problems, No hoarseness, No mouth pain, No mouth swelling, No epistaxis, No nose congestion, No nose pain, No throat pain, No throat swelling, No other Respiratory: No no symptoms reported, No see HPI, No cough, No dyspnea on exertion, No hemoptysis, No orthopnea, No phlegm, No short of breath, No stridor, No wheezing, No other Cardiovascular: No no symptoms reported, No see HPI, No chest pain, No edema, No Hx of Intervention, No palpitations, No syncope, No vascular heart diseas, No other Gastrointestinal: diarrhea, heartburn, nausea, vomiting Genitourinary: No no symptoms reported, No see HPI, No decreased output, No discharge, No dysuria, No frequency, No hematuria, No hesitancy, No incontinence, No nocturia, No pain, No other Musculoskeletal: back pain Skin: No no symptoms reported, No see HPI, No change in color, No change in hair/nails, No dryness, No hx of skin cancer, No lesions, No lumps, No pruritus, No rash, No other Psychiatric/Neurological: Weakness Physical Exam Vital Signs Vital Signs - First Documented 03/08/21 17:33 Temp 37.0 Pulse 89 Resp 18 B/P (MAP) 119/69 (86) Pulse Ox 92 O2 Delivery Room Air Capillary Refill : Height, Weight, BMI Height: 5'7.00" Weight: 214lbs. 0.0oz. 97.174079vw; 31.95 BMI Method:Stated General Appearance: No Apparent Distress Neck: Supple Respiratory: Lungs Clear Cardiovascular: Regular Rate, Rhythm, Gallop/S4 Gastrointestinal: Non Tender, Soft, Abnormal Bowel Sounds (hyperactive) Back: No CVA Tenderness Extremity: Non Tender, No Calf Tenderness, No Pedal Edema Neurologic/Psychiatric: Alert, Oriented x3 Skin: Normal Color Comments Laboratory Tests 03/08/21 17:25: White Blood Count 14.9H, Red Blood Count 5.34, Hemoglobin 16.7, Hematocrit 49, Mean Corpuscular Volume 93, Mean Corpuscular Hemoglobin 31, Mean Corpuscular Hemoglobin Concent 34, Red Cell Distribution Width 13.2, Platelet Count 202, Mean Platelet Volume 9.8, Immature Granulocyte % (Auto) 1, Neutrophils (%) (Auto) 89H, Lymphocytes (%) (Auto) 4L, Monocytes (%) (Auto) 5, Eosinophils (%) (Auto) 1, Basophils (%) (Auto) 0, Neutrophils # (Auto) 13.3H, Lymphocytes # (Auto) 0.5L, Monocytes # (Auto) 0.8, Eosinophils # (Auto) 0.2, Basophils # (A uto) 0.0, Immature Granulocyte # (Auto) 0.1, Neutrophils % (Manual) 91, Lymphocytes % (Manual) 1, Monocytes % (Manual) 4, Eosinophils % (Manual) 2, Band Neutrophils 2, Toxic Granulation 1+, Erythrocyte Sedimentation Rate 7, Sodium Level 140, Potassium Level 3.9, Chloride Level 102, Carbon Dioxide Level 24, Anion Gap 14, Blood Urea Nitrogen 15, Creatinine 0.92, Estimat Glomerular Fi ltration Rate > 60, BUN/Creatinine Ratio 16, Glucose Level 117H, Calcium Level 9.8, Corrected Calcium , Total Bilirubin 1.0, Aspartate Amino Transf (AST/SGOT) 29, Alanine Aminotransferase (ALT/SGPT) 44, Alkaline Phosphatase 57, Total P rotein 8.2, Albumin 4.6H, Amylase Level 74, Lipase 14 03/09/21 05:20: White Blood Count 8.2, Red Blood Count 4.58, Hemoglobin 14.0, Hematocrit 43, Mean Corpuscular Volume 94, Mean Corpuscular Hemoglobin 31, Mean Corpuscular Hemoglobin Concent 33, Red Cell Distribution Width 13.7, Platelet Count 160, Mean Platelet Volume 9.9 Assessment/Plan Assessment and Plan 1. Acute Gastroenteritis with intractable N/V--admit for IV antiemetics and IVFs, will check CBC, CMP, Amylase, Lipase and CT of Abdomen/Pelvis due to history of diverticulitis 2. Hypertension--stable 3. GERD--IV protonix Admission Diagnosis Admission Status: Observation SAPNA GERBER DO Mar 09, 2021 12:32
[2021-03-09 15:00] VITALS: BP 138/74
[2021-03-09] MEDS ORDERED: doxAzosin 4 MG (CARDURA) TAB PO SCH (18:00)
[2021-03-09] MEDS ORDERED: PANTOPRAZOLE 40 MG (PROTONIX) TAB PO SCH (18:00)
[2021-03-09 20:00] VITALS: BP 119/70
[2021-03-09] MEDS ORDERED: LACTOBACILLUS ACIDOPHILUS (PROBIOTIC) CAPSULE PO SCH (21:00)
[2021-03-09] MEDS ORDERED: NON-FORMULARY MEDICATION 1 EA EA (L.acidoph & Paracasei,B.lactis (Probiotic) 1 EACH) PO SCH (21:00)
[2021-03-09 21:20] VITALS: BP 119/70
[2021-03-10] VITALS: BP 131/77
[2021-03-10] MEDS: NS W/KCL 20 MEQ/L 1,000 ML IV SCH ×2 (00:05→08:10)
[2021-03-10] MEDS: ACETAMINOPHEN 325 MG TABLET PO PRN (05:46)
[2021-03-10] MEDS ORDERED: MULTIVIT W/MINERALS TAB (THERAGRAN M) PO SCH (07:00)
[2021-03-10 07:20] VITALS: BP 113/75
[2021-03-10] MEDS: QUINAPRIL 40 MG PO SCH (08:10)
[2021-03-10] MEDS: PANTOPRAZOLE 40 MG (PROTONIX) VIAL IV SCH (08:10)
[2021-03-10] MEDS: ASPIRIN E.C. 81 MG (ECOTRIN) TAB PO SCH (08:10)
[2021-03-10] MEDS ORDERED: GARLIC PO SCH (09:00)
[2021-03-10] MEDS ORDERED: NON-FORMULARY MEDICATION 1 EA EA (Glucosam/Chond/Hyalu/Cf Borate (Move Free Joint Health T PO SCH (09:00)
[2021-03-10] MEDS ORDERED: NON-FORMULARY MEDICATION 1 EA EA (Cholecalciferol (Vitamin D3) (Vitamin D3) 50 MCG) PO SCH (09:00)
[2021-03-10] MEDS ORDERED: [UNRECOGNIZED DRUG - OTHER] PO SCH (09:00)
[2021-03-10] MEDS ORDERED: ASTX PO SCH (09:00)
[2021-03-10] MEDS ORDERED: [UNRECOGNIZED DRUG - OTHER] PO SCH (09:00)
[2021-03-10] MEDS ORDERED: KRILL PO SCH (09:00)
[2021-03-10] MEDS ORDERED: DHA PO SCH (09:00)
[2021-03-10] MEDS ORDERED: EPA PO SCH (09:00)
[2021-03-10] MEDS ORDERED: VITAMIN D3 25 MCG (1,000 UNITS) TABLET PO SCH (09:00)
[2021-03-10] MEDS ORDERED: LIP PO SCH (09:00)
[2021-03-10] MEDS ORDERED: NON-FORMULARY MEDICATION 1 EA EA (Quinapril HCl 40 MG) PO SCH (09:00)
[2021-03-10 13:51] VITALS: BP 113/75
--- NOTE | 2021-03-11 14:57 | Physician Query-Final Dx ---
CHARLY EDMOND 03/11/21 1457: Final Diagnosis Give Final Diagnosis Please give Final Diagnosis SHAYNA GERBER DO 03/15/21 1813: Final Diagnosis Give Final Diagnosis On DC summary CHARLY EDMOND Mar 11, 2021 14:57 SHAYNA GERBER DO Mar 15, 2021 18:13
--- NOTE | 2021-03-15 18:12 | Discharge Summary ---
Diagnosis/Chief Complaint Date of Admission Mar 08, 2021 at 16:55 Date of Discharge Mar 10, 2021 at 13:50 Discharge Date: Mar 10, 2021 Discharge Diagnosis 1. Acute Gastroenteritis with Intractable Nausea and Vomiting--resolved 2. Acute Dehydration--resolved 3. Hypertension--stable 4. GERD--stable Reason Hospital Visit This is a 65 year old male who presented to my office yesterday with sudden onset of diarrhea and nausea and vomiting. He was uncontrollably wretching in my office so it was decided to admit him for further evaluation and treatment. He does have a history of diverticulitis. Discharge Summary Hospital Course Was the Problem List Reviewed?: Yes Hospital Course This is a 65 year old male who presented to my office with sudden onset of diarrhea and nausea and vomiting. He was uncontrollably wretching in my office so it was decided to admit him for further evaluation and treatment. He does have a history of diverticulitis. He was admitted to the medical floor and given IVFs and IV antiemetics with zofran as well as IV protonix. He underwent lab which did show an elevated WBC count of 14.9. His WBC count was down to 8.2 after hydration. His amylase and lipase were normal and a CT scan of the abdomen and pelvis revealed fluid distended small bowel loops consistent with an enteritis. He was initially placed on a clear liquid diet and this was advanced after the first 24hrs with no further nausea and vomiting. He continued to have diarrhea stools but by the time of discharge his stools were becoming more formed. He was tolerating a regular diet by the time of discharge and had no abdominal pain or cramping. He will be discharged home on a bland diet and resume his home protonix and home meds. Procedures None. Discharge Physical Examination Allergies: Coded Allergies: Penicillins (Verified Allergy, Unknown, 12/23/18) Vitals & I&Os Vital Signs Date Time Temp Pulse Resp B/P (MAP) Pulse Ox O2 Delivery O2 Flow Rate FiO2 03/10/21 13:51 36.2 58 18 113/75 95 Room Air General Appearance: Alert, Oriented X3, Cooperative, No Acute Distress Respiratory: Clear to Auscultation Cardiovascular: Regular Rate Abdominal: Normal Bowel Sounds, Soft, No Tenderness Extremities: No Clubbing, No Cyanosis, No Edema Skin: No Rashes Psych/Mental Status: Mental Status NL, Mood NL Discharge Home Medications Reviewed and agree with Discharge Medication list on patient's Discharge Instruction sheet Instructions to Patient/Family Please see electronic discharge instructions given to patient. SHAYNA GERBER DO Mar 15, 2021 18:12
== END 2021-03-10 13:51 | disposition home or self-care (01) ==
LOC: 4TH 16:55 → UNDOADMOB 16:55 → 4TH 18:03 → UNDODISOB 03-10 13:50
PROVIDERS: ADMIT Family Medicine; ATTEND Family Medicine
DX: K52.9 Noninfective gastroenteritis and colitis, unspecified (principal); I10 Essential (primary) hypertension; K21.9 Gastro-esophageal reflux disease without esophagitis; M19.90 Unspecified osteoarthritis, unspecified site; G89.29 Other chronic pain; M54.9 Dorsalgia, unspecified; Z79.82 Long term (current) use of aspirin; Z87.891 Personal history of nicotine dependence
CPT/HCPCS: 74176; 80053; 82150; 83690; 85007; 85027 ×2; 85652; G0378; G0379; 36415; 99211

== ENCOUNTER → 2021-09-10 | Outpatient (CLI) | payer MEDICARE, OTHER ==
[~2021-09-10] MED LIST changes: +ASPI-1238 PO; +CHOL20002 PO; +CYCL10TA25 PO; -CYCL10TA9 PO; +DOXA4TAB2 PO; +GARL200T PO; +KRIL1CAP6 PO; +MULT-1065 PO; -SULF1TAB35 PO; +SULF1TAB38 PO; +TRAM50TA3 PO
[2021-09-10 08:05] LABS: BASOPHILS # (AUTO) 0.1 10^3/uL (0.0-0.1); BASOPHILS % (AUTO) 1 % (0-10); EOSINOPHILS # (AUTO) 0.2 10^3/uL (0.0-0.3); EOSINOPHILS % (AUTO) 4 % (0-10); HEMATOCRIT 47 % (40-54); HEMOGLOBIN 15.3 g/dL (13.3-17.7); LYMPHOCYTES # (AUTO) 1.2 10^3/uL (1.0-4.0); LYMPHOCYTES % (AUTO) 25 % (12-44); MEAN CORPUSCULAR HEMOGLOBIN 30 pg (25-34); MEAN CORPUSCULAR HGB CONC 33 g/dL (32-36); MEAN CORPUSCULAR VOLUME 92 fL (80-99); MEAN PLATELET VOLUME 9.9 fL (9.0-12.2); MONOCYTES # (AUTO) 0.4 10^3/uL (0.0-1.0); MONOCYTES % (AUTO) 7 % (0-12); NEUTROPHILS # (AUTO) 3.1 10^3/uL (1.8-7.8); NEUTROPHILS % (AUTO) 63 % (42-75); PLATELET COUNT 180 10^3/uL (130-400)
[2021-09-10 08:18] LABS: ALBUMIN 4.3 GM/DL (3.2-4.5); POTASSIUM 4.2 MMOL/L (3.6-5.0)
[2021-09-10 08:19] LABS: CALCIUM 9.4 MG/DL (8.5-10.1)
[2021-09-10 08:21] LABS: TOTAL PROTEIN 7.4 GM/DL (6.4-8.2)
[2021-09-10 08:22] LABS: BILIRUBIN,TOTAL 1.6 MG/DL (0.1-1.0)
[2021-09-10 08:24] LABS: CREATININE SERUM 0.9 MG/DL (0.60-1.30)
[2021-09-10 08:47] LABS: FREE T4 (FREE THYROXINE) 0.84 NG/DL (0.70-1.48)
== END ==
LOC: LAB 07:45
PROVIDERS: ATTEND Family Medicine
DX: Z00.01 Encounter for general adult medical examination with abnormal findings (principal); E78.2 Mixed hyperlipidemia
CPT/HCPCS: 36415; 80053; 80061; 84439; 84443; 85025

== ENCOUNTER → 2021-09-30 | Outpatient (CLI) | payer MEDICARE, OTHER ==
--- NOTE | 2021-09-30 14:12 | Diagnostic Imaging Report ---
EXAMINATION: CT chest without contrast. TECHNIQUE: Multiple contiguous axial images were obtained through the chest without the use of intravenous contrast. All CT scans use one or more of the following dose optimizing techniques: automated exposure control, MA and/or KvP adjustment based on patient size and exam type or iterative reconstruction. HISTORY: Adrenal mass, lung nodule COMPARISON: 10/21/2018 FINDINGS: There is no edema or pneumonia. No pleural effusion. No pneumothorax. No suspicious nodules. There is no axillary or supraclavicular lymphadenopathy. There is no mediastinal lymphadenopathy. Heart size is normal. There are severe coronary artery calcifications. No pericardial effusion. Aorta is normal in caliber. Limited views of the upper abdomen show changes of cholecystectomy. There is a stable left adrenal adenoma. There are no suspicious osseus lesions. IMPRESSION: 1. No suspicious pulmonary nodules. 2. Stable left adrenal adenoma. Dictated by: Dictated on workstation # [id number]
== END ==
LOC: RAD 13:15
PROVIDERS: ATTEND Family Medicine
DX: E27.8 Other specified disorders of adrenal gland (principal); R91.1 Solitary pulmonary nodule; Z90.49 Acquired absence of other specified parts of digestive tract
CPT/HCPCS: 71250

== ENCOUNTER 2022-01-28 02:35 | Emergency (ER) | payer MEDICARE, OTHER ==
[~2022-01-28] VITALS: Ht 170.1 cm; Wt 90.7 kg
[~2022-01-28 02:35] MED LIST changes: -FENO134C PO; +FENO134C21 PO
[2022-01-28 02:52] VITALS: BP 142/83
--- NOTE | 2022-01-28 02:56 | ED GU-Male ---
General Chief Complaint: - Reproductive Stated Complaint: NEEDS A CATHETER,POST OP RT KNEE REPLACE SURGERY Source: patient Exam Limitations: no limitations History of Present Illness Date Seen by Provider: January 28, 2022 Time Seen by Provider: 02:53 Initial Comments Patient to the ER by AMELIA from home with chief complaint he has not been able to urinate for several hours. He just had surgery Sunday on his right knee by Dr. Franz. He says he had to have a straight cath done at [place] before being sent home. He says he will dribble a little out but still has a feeling of being full. He has been drinking a lot of water. He has a history of stage I prostatic cancer treated by a urologist at [facility]. He doubled up his Flomax and took some Pyridium and was still not able to produce much urine so was told to come out here and get a straight cath. Allergies and Home Medications Allergies Coded Allergies: Penicillins (Verified Allergy, Unknown, 12/23/18) Patient Home Medication List Home Medication List Reviewed: Yes Aspirin (Aspirin EC) 81 Mg Tablet., 81 MG PO DAILY, (Reported) Entered as Reported by: SHIN ESPINOZA on 03/09/21 0816 Cholecalciferol (Vitamin D3) (Vitamin D3) 50 Mcg Capsule, 50 MCG PO DAILY, (Reported) Entered as Reported by: SHIN ESPINOZA on 03/09/21 0816 Doxazosin Mesylate (Doxazosin Mesylate) 4 Mg Tablet, 4 MG PO 1800, (Reported) Entered as Reported by: SHIN ESPINOZA on 03/09/21 0816 Glucosam/Chond/Hyalu/Cf Borate (Move Free Joint Health Tablet) 1 Each Tablet, 1 EACH PO DAILY, (Reported) Entered as Reported by: NO OSORIO on 02/05/20 0812 L.acidoph & Paracasei,B.lactis (Probiotic) 1 Each Capsule, 1 EACH PO HS, (Reported) Entered as Reported by: SHIN ESPINOZA on 03/09/21 0816 Pantoprazole Sodium (Pantoprazole Sodium) 40 Mg Tablet., 40 MG PO 1800, (Reported) Entered as Reported by: DAYLIN LINARES on 12/17/18 1624 Quinapril HCl (Quinapril HCl) 40 Mg Tablet, 40 MG PO DAILY, (Reported) Entered as Reported by: DAYLIN LINARES on 12/17/18 1624 Saw/Vit E/Sod Keila/Lyc/Beta/Pyg (Prostate Health Caplet) 1 Each Tablet, 2 EACH PO DAILY, (Reported) Entered as Reported by: NO OSORIO on 02/05/20 0812 Tramadol HCl (Tramadol HCl) 50 Mg Tablet, 100 MG PO BID PRN for PAIN-MODERATE (5-7), (Reported) Entered as Reported by: SHIN ESPINOZA on 03/09/21 0816 Review of Systems Review of Systems Constitutional: No chills, No diaphoresis EENTM: No ear discharge, No ear pain Respiratory: No cough, No short of breath Cardiovascular: No chest pain, No edema Gastrointestinal: see HPI, abdominal pain; No nausea, No vomiting All Other Systemes Reviewed Negative Unless Noted: Yes Past Yskqxpa-Upvcpg-Jcyftp Hx Patient Social History Tobacco Use?: No Use of E-Cig and/or Vaping dev: No Substance use?: No Immunizations Up To Date Tetanus Booster (TDap): Unknown PED Vaccines UTD: No Seasonal Allergies Seasonal Allergies: Yes (MILD) Past Medical History Surgeries: Yes (LT TESTICLE REMOVED/TORSION; HEMORRHOID , BROKEN HAND,LEFT INGUINAL HERNIA) Abdominal, Gallbladder, Orthopedic, Testicular Respiratory: No ("BB SIZE SPOT ON LUNG") Cardiac: Yes (cardiomegaly) Hypertension Neurological: No Reproductive Disorders: No Sexually Transmitted Disease: No Genitourinary: No Gastrointestinal: Yes (fatty liver, CHRONIC GASTRITIS) Gastroesophageal Reflux, Chronic Constipation, Diverticulosis Musculoskeletal: Yes Degenerate Disk Disease, Arthritis, Chronic Back Pain Endocrine: No HEENT: Yes (GLASSES) Loss of Vision: Bilateral Hearing Impairment: Denies Cancer: No ("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 0.0oz. [id number]; 31.95 BMI Method:Stated General Appearance: WD/WN, mild distress HEENT: PERRL/EOMI, pharynx normal Neck: full range of motion, supple, normal inspection Cardiovascular: normal peripheral pulses, regular rate, rhythm Respiratory: no respiratory distress, no accessory muscle use Gastrointestinal: normal bowel sounds, soft, tenderness (Suprapubic with fullness palpable) Neurologic/Psychiatric: alert, normal mood/affect, oriented x 3 Progress/Results/Core Measures Suspected Sepsis SIRS Temperature: Pulse: Respiratory Rate: Blood Pressure / Mean: Results/Orders Lab Results Laboratory Tests Test 01/28/22 03:35 Range/Units Urine Color YELLOW Urine Clarity CLEAR Urine pH 6.0 5-9 Urine Specific [place] <=1.005 1.016-1.022 Urine Protein NEGATIVE NEGATIVE Urine Glucose (UA) TRACE H NEGATIVE Urine Ketones NEGATIVE NEGATIVE Urine Nitrite POSITIVE H NEGATIVE Urine Bilirubin NEGATIVE NEGATIVE Urine Urobilinogen 1.0 < = 1.0 MG/DL Urine Leukocyte Esterase TRACE H NEGATIVE Urine RBC (Auto) TRACE-I H NEGATIVE Urine RBC NONE /HPF Urine WBC 0-2 /HPF Urine Squamous Epithelial Cells NONE /HPF Urine Crystals NONE /LPF Urine Bacteria FEW H /HPF Urine Casts PRESENT /LPF Urine Hyaline Casts 0-2 H /LPF Urine Mucus SMALL H /LPF Urine Culture Indicated NO My Orders Orders - AILIN CARDENAS Ua Culture If Indicated (01/28/22 02:42) Bladder Scan (01/28/22 02:52) Lidocaine 2% (Urojet) (Xylocaine Urojet) (01/28/22 03:30) Ceftriaxone (Rocephin) (01/28/22 04:15) Lidocaine 1% Inj 20 Ml (Xylocaine 1% Inj (01/28/22 04:15) Medications Given in ED Current Medications Medications Dose Ordered Sig/Frankie Route Start Time Stop Time Status Last Admin Dose Admin Lidocaine HCl 10 ml ONCE ONCE TOP 01/28/22 03:30 01/28/22 03:31 DC 01/28/22 03:35 10 ML Vital Signs/I&O 01/28/22 02:52 Temp 36.7 Pulse 82 Resp 18 B/P (MAP) 142/83 (102) Pulse Ox 96 O2 Delivery Room Air Capillary Refill : Progress Note #1: Time: 02:56 Progress Note Bladder scan, urinalysis and if he has a significant mount of urine we discussed a straight cath versus just putting a Trotter catheter in. Progress Note #2: Time: 03:22 Progress Note Over 800 cc in the bladder. We will put a Trotter catheter in after discussing risks, benefits and alternatives. Progress Note #3: Time: 04:10 Progress Note 1 g of Rocephin IM and put him out on cefdinir for 10 days. Follow-up with urology. Departure Impression Primary Impression: Urinary retention Additional Impression: Urinary tract infection Qualified Codes: N30.00 - Acute cystitis without hematuria Disposition: HOME, SELF-CARE Condition: Stable Departure-Patient Inst. Decision time for Depature: 04:11 Referrals: SHAYNA GERBER DO (PCP/Family) Primary Care Physician DANTE ANTOINE MD Patient Instructions: Urinary Tract Infection, Adult (DC), Urinary Retention (D C), How to Care for Your Trotter Catheter, Male Add. Discharge Instructions: Drink lots of fluids. Call your urologist on Sunday. Cefdinir 1 capsule twice a day for 10 days. Return to the ER promptly for fever, vomiting or other worrisome symptoms. Pyridium 200 mg twice a day as needed for burning with urination. Double your Flomax up for a week until you talk to your urologist. All discharge instructions reviewed with patient and/or family. Voiced understanding. Scripts Cefdinir (Cefdinir) 300 Mg Capsule 300 MG PO BID for 10 Days, #20 CAP 0 Refills Prov: AILIN CARDENAS 01/28/22 Copy Copies To 1: ELIA FRANZ MD; DANTE ANTOINE MD, TITUS J January 28, 2022 02:56
[2022-01-28] MEDS ORDERED: LIDOCAINE UROJET 2% GEL 10 ML PKG TOP ONE (03:30)
[2022-01-28 03:39] LABS: BILIRUBIN,URINE NEGATIVE (NEGATIVE); CLARITY,URINE CLEAR; COLOR,URINE YELLOW; GLUCOSE, URINE (UA) TRACE (NEGATIVE); KETONES,URINE NEGATIVE (NEGATIVE); LEUKOCYTE ESTERASE ,URINE TRACE (NEGATIVE); NITRITE,URINE POSITIVE (NEGATIVE); PROTEIN,URINE NEGATIVE (NEGATIVE)
[2022-01-28 04:07] LABS: BACTERIA,URINE FEW /HPF; HYALINE CASTS, URINE 0-2 /LPF; WBC,URINE 0-2 /HPF
[2022-01-28] MEDS ORDERED: CEFD300C3 PO (04:15)
[2022-01-28] MEDS ORDERED: LIDOCAINE 1% INJ 20 ML VIAL INJ ONE (04:15)
[2022-01-28] MEDS ORDERED: cefTRIAXone 1,000 MG VIAL IM ONE (04:15)
== END 2022-01-28 04:33 | disposition home or self-care (01) ==
LOC: EDUNIT# 02:35 → ER 02:39
DX: N30.00 Acute cystitis without hematuria (principal)
CPT/HCPCS: 81000; 99284

== ENCOUNTER → 2022-07-07 | Outpatient (CLI) | payer MEDICARE, OTHER ==
[~2022-07-07] MED LIST changes: +CEFD300C3 PO; -QUIN20TA16 PO; +QUIN20TA36 PO; -QUIN40TA14 PO; +QUIN40TA34 PO
== END ==
LOC: LAB 16:37
PROVIDERS: ATTEND Urology
DX: C61 Malignant neoplasm of prostate (principal)
CPT/HCPCS: 36415; 84153

== ENCOUNTER → 2022-10-21 | Outpatient (CLI) | payer MEDICARE, OTHER ==
[2022-10-21 08:55] LABS: BASOPHILS # (AUTO) 0.1 10^3/uL (0.0-0.1); BASOPHILS % (AUTO) 1 % (0-10); EOSINOPHILS # (AUTO) 0.1 10^3/uL (0.0-0.3); EOSINOPHILS % (AUTO) 2 % (0-10); HEMATOCRIT 47 % (40-54); HEMOGLOBIN 15.9 g/dL (13.3-17.7); LYMPHOCYTES # (AUTO) 1.5 10^3/uL (1.0-4.0); LYMPHOCYTES % (AUTO) 26 % (12-44); MEAN CORPUSCULAR HEMOGLOBIN 32 pg (25-34); MEAN CORPUSCULAR HGB CONC 34 g/dL (32-36); MEAN CORPUSCULAR VOLUME 93 fL (80-99); MEAN PLATELET VOLUME 9.9 fL (9.0-12.2); MONOCYTES # (AUTO) 0.4 10^3/uL (0.0-1.0); MONOCYTES % (AUTO) 7 % (0-12); NEUTROPHILS # (AUTO) 3.6 10^3/uL (1.8-7.8); NEUTROPHILS % (AUTO) 64 % (42-75); PLATELET COUNT 180 10^3/uL (130-400); WHITE BLOOD COUNT 5.7 10^3/uL (4.3-11.0)
[2022-10-21 09:20] LABS: ALBUMIN 4.2 GM/DL (3.2-4.5); BILIRUBIN,TOTAL 1.1 MG/DL (0.1-1.0); CALCIUM 9.9 MG/DL (8.5-10.1); CREATININE SERUM 0.98 MG/DL (0.60-1.30); POTASSIUM 4.1 MMOL/L (3.6-5.0); TOTAL PROTEIN 7.2 GM/DL (6.4-8.2)
== END ==
LOC: LAB 08:37
PROVIDERS: ATTEND Family Medicine
DX: I10 Essential (primary) hypertension (principal); E78.2 Mixed hyperlipidemia; R53.83 Other fatigue
CPT/HCPCS: 36415; 80053; 80061; 84443; 85025